=== PATIENT | male | born 1945 | race Caucasian/White ===

== ENCOUNTER 2023-09-08 14:43 | Inpatient (IN) | payer OTHER, BC ==
--- OUTSIDE RECORDS SUMMARY | 2023-09-08 14:54 | XMS REPORT | Continuity of Care Document ---
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 Name Role Phone DOUGIE GILES Primary Care Physician Unavailab NATALIE Hector Attending Clinician Unavaila Joseph Joe Attending Clinician Unavailable Al PAC, Joseph Martin Attending Clinician [phone] NICANOR LENTZ Attending Clinician Unavailable Nicanor Lentz DO Attending Clinician [phone] Shira Mead RN Attending Clinician Unavail able MARQUES HINES Attending Clinician Unavailable Uriarte MARICEL, Andreina S Attending Clinician [phone] Marlena Rios MD Attending Clinician [phone] Marques Hines DO Attending Clinician [phone] Virginia Soni DO Attending Clinician [phone] VIRGINIA SOIN Attending Clinician Unavailab Ena Montenegro RN Attending Clinician Unavailab Juno Hand MD Attending Clinician [phone] OLMAN DAVID Attending Clinician Unavailable Olman Charles Attending Clinician [phone] Doctor Unassigned, [place] Attending Clinician U LYDIA Cristina Attending Clinician Unavailab Marcie Lazar DO Attending Clinician [phone] Margie Beck MD Attending Clinician [phone] Chaz Roberts MD Attending Clinician + Natalie Stone Attending Clinician [phone] Fantasma Marroquin MD Attending Clinician [phone] Jean Jarrett MD Attending Clinician [phone] Dougie Giles MD Attending Clinician [phone] DOUGIE GILES Attending Clinician Unavailable MARLENA RIOS Attending Clinician Unavailable Yaritza Aguirre Anavella Attending Cli nician Unavailable JOSEFINA DASILVA Attending Clinician Unavailable Josefina Dasilva MD Attending Clinician [phone] Nurse, [facility] Attending Clinician Jelani Bray MD Attending Clinician [phone] JEAN JARRETT Attending Clinician Unavailable Liane Negrete RN Attending Clinician Unavailable Only, Ang Db Test Attending Clinician Unavailabl e Mannie Vásquez DO Attending Clinician [phone] MANNIE VÁSQUEZ Attending Clinician Unavail able GRAMMMARGI Attending Clinician Unavailable Margi Horn Attending Clinician [phone] Justine Collins Attending Clinician + [phone] JUSTINE GARCIA Attending Clinician Unavailable Lab, [facility] Attending Clinician Unavailab JELANI Álvarez Attending Clinician Unavail able JELANI CORDON Attending Clinician Unavail able JEZ ALEXANDER Attending Clinician Unavailable Rajjoel_Olga Attending Clinician Unavailable Joseph MELENDEZ Admitting Clinician Unavailable MARQUES HINES Admitting Clinician Unavailable Marques Hines DO Admitting Clinician [phone] VIRGINIA SONI Admitting Clinician Unavailab OLMAN Anglin Admitting Clinician Unavailable CHAZ ROBERTS Admitting Clinician Unavailable Chaz Roberts MD Admitting Clinician +[phone] NICANOR LENTZ Admitting Clinician Unavailable MARLENA RIOS Admitting Clinician Unavailable Marlena Rios MD Admitting Clinician [phone] Carla, Tomasa, Anav Admitting Clinician U arronailable JOSEFINA DASILVA Admitting Clinician Unavailable Bailey LOPEZ, Josefina Admitting Clinician [phone] JELANI CORDON Admitting Clinician Unavail able Shi_P Admitting Clinician Unavailable Payers Payer Name Policy Type Policy Number Effective Date Expirati on Date Source MEDICARE PART A \\T\\ B [id number] 2002 00:00:00 BCBS TRADITIONAL [id number] 2013 00:00:00 FORMERLY [facility] CCN [id number] 2021 00:00:00 MCR MCR [id number] BCTI BCTI [id number] TWV [id number] [place] [employer] [id number] 2002 00:00:00 [place] F [place]MEDIC[place]PPLEMENT[place] [id number] 2013 00:00:00 Problems Condition Name Condition Details Condition Category Status Onset Date Resolution Date Last Treatment Date Treating Clinician Comments Source Fever, unspecifie d fever cause Fever, unspecifie d fever cause Disease Active 2022-04 00:00: 00 [facility] Wound of right ankle, initial encounter Wound of right ankle, initial encounter Disease Active 2022-04 00:00: 00 [facility] Cellulitis , unspecifie d cellulitis site Cellulitis , unspecifie d cellulitis site Disease Active 11-29 00:00: 00 [facility] Unspecifie d dementia, unspecifie d severity, without behavioral disturbanc e, psychotic disturbanc e, mood disturbanc e, and anxiety Unspecifie d dementia, unspecifie d severity, without behavioral disturbanc e, psychotic disturbanc e, mood disturbanc e, and anxiety Disease Active 11-26 00:00: 00 [facility] 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 11-26 00:00: 00 [facility] Problem related to unspecifie d psychosoci al circumstan vasu Problem related to unspecifie d psychosoci al circumstan vasu Disease Active 8- 00:00: 00 [facility] Post-traum atic stress disorder, chronic Post-traum atic stress disorder, chronic Disease Active 823 00:00: 00 [facility] Fever in adult Fever in adult Disease Active 7-25 00:00: 00 [facility] Pneumonia due to infectious organism Pneumonia due to infectious organism Disease Active 725 00:00: 00 [facility] At risk for aspiration At risk for aspiration Disease Active 4-20 00:00: 00 [facility] Cellulitis of right ankle Cellulitis of right ankle Disease Active 4-16 00:00: 00 [facility] Fecal impaction in rectum Fecal impaction in rectum Disease Active 2- 00:00: 00 [facility] Pancolitis Pancolitis Disease Active 1- 00:00: 00 [facility] Basal cell carcinoma (BCC) of chin Basal cell carcinoma (BCC) of chin Disease Active 2017-04 00:00: 00 Overview: Formattin g of this note might be different from the original. Added automatic ally from request for surgery [id number] [facility] Glaucoma Glaucoma Disease Active 2014-04 00:00: 00 [facility] Hyperlipid emia Hyperlipid emia Disease Active 2014-04 00:00: 00 [facility] Carotid bruit Carotid bruit Disease Active 2014-04 00:00: 00 [facility] Allergies, Adverse Reactions, Alerts Allergy Name Allergy Type Status Severity Reaction(s) Onset Date Inactive Date Treating Clinician Comments Source Sulfamet hoxazole -Trimeth oprim Propensi ty to adverse reaction s Active Unknown - See comments 11-07 00:00: 00 Patients reports the patient is unable to walk when taking medicatio n [facility] SULFAMET HOXAZOLE -TRIMETH OPRIM DRUG Active Unknown-Cmnt 11-07 00:00: 00 [facility] Social History Social Habit Start Date Stop Date Quantity Comments Source History SDOH Social Connections Get Together [facility] History SDOH Social Connections [facility] History SDOH Social Connections Membership [facility] History SDOH Social Connections Meetings [facility] Sexual orientation [facility]iversity [facility] Alcohol intake 2023 00:00:00 2023 00:00:00 0 /d [facility] Exposure to SARS-CoV-2 (event) 2022-08-17 00:00:00 2022-08-27 14:30:00 Not sure [facility] History of Social function 2022-08-27 00:00:00 2022-08-27 00:00:00 [facility] History SDOH Alcohol Frequency 2022-07-21 00:00:00 2022-07-21 00:00:00 1 [facility] History SDOH Social Connections Phone 2022-07-21 00:00:00 2022-07-21 00:00:00 3 [facility] History SDOH Social Connections Living 2022-07-21 00:00:00 2022-07-21 00:00:00 3 [facility] History SDOH Financial 2022-07-21 00:00:00 2022-07-21 00:00:00 5 [facility] History SDOH Food Worry 2022-07-21 00:00:00 2022-07-21 00:00:00 1 [facility] History SDOH Food Scarcity 2022-07-21 00:00:00 2022-07-21 00:00:00 1 [facility] History SDOH Transport Med 2022-07-21 00:00:00 2022-07-21 00:00:00 2 [facility] History SDOH Transport Non-Med 2022-07-21 00:00:00 2022-07-21 00:00:00 2 [facility] History SDOH Physical Activity DPW 2022-07-21 00:00:00 2022-07-21 00:00:00 2 [facility] History SDOH Physical Activity MPS 2022-07-21 00:00:00 2022-07-21 00:00:00 1 [facility] History SDOH Housing Unable to Pay 2022-07-21 00:00:00 2022-07-21 00:00:00 2 [facility] History SDOH Housing Places Lived 2022-07-21 00:00:00 2022-07-21 00:00:00 1 [facility] History SDOH Housing Homeless Last Year 2022-07-21 00:00:00 2022-07-21 00:00:00 2 [facility] Tobacco use and exposure 2022-07-20 00:00:00 2022-07-20 00:00:00 Smokeless tobacco non-user [facility] History SDOH Alcohol Std Drinks 2022-05-28 00:00:00 2022-05-28 00:00:00 0 [facility] History SDOH Alcohol Binge 2022-05-28 00:00:00 2022-05-28 00:00:00 1 [facility] Sex Ass[birth year] At 1945 00:00:00 1945 00:00:00 [facility] Smoking Status Start Date Stop Date Source Never smoked tobacco [facility] Medications Ordered Medication Name Filled Medication Name Start Date Stop Date Current Medication? Ordering Clinician Indication Dosage Frequency Signature (SIG) Comments Components Source ciprofloxac in HCl (CIPRO) tablet 500 mg 2022-04 00:30: 00 03-01 23:48 :00 No 500mg 500 mg, Oral, ONCE, 1 dose, On 03/01/23 at 1830, ROCKY
Re ason for Anti-Infec tive: Documented Infection< br>Documen nichole Infection Site: Skin / Soft Tissue
Duration of Therapy: Other (see Comments) [facility] ciprofloxac in HCl 500 mg tablet 2022-04 00:00: 00 03-01 00:00 :00 No [id number] 500mg Take 1 tablet by mouth in the morning and 1 tablet at noon and 1 tablet in the evening. Do all this for 10 days. [facility] collagenase 250 unit/gram ointment 2022-04 00:00: 00 Yes [id number] Apply to area(s) daily. [facility] Vitamin E (E-PHEROL) 400 unit Tab 2022-04 14:37: 49 Yes 2{tbl} Take 2 tablets by mouth daily. [facility] latanoprost (XALATAN) 0.005 % ophthalmic drops 2022-04 14:37: 49 Yes 1[drp] 1 Drop every evening. [facility] brimonidine (ALPHAGAN) 0.2 % ophthalmic solution 2022-04 14:37: 49 Yes 1[drp] Take 1 Drop in the morning and 1 Drop at noon and 1 Drop in the evening. [facility] melatonin 10 mg Tab 2022-04 14:37: 49 Yes 10mg Take 10 mg by mouth at bedtime. [facility] acetaminoph en 500 mg tablet 2022-04 14:37: 49 Yes 1000mg Take 2 tablets by mouth at bedtime. [facility] mv-mn/iron/ folic acid/herb 190 (VITAMIN D3 COMPLETE ORAL) 2022-04 14:37: 49 Yes 5000U/d Take 5,000 Units/day by mouth daily. [facility] timolol 0.25 % ophthalmic solution 2022-04 14:37: 49 Yes 1[drp] Place 1 Drop in both eyes in the morning and 1 Drop in the evening. [facility] trazodone HCl (TRAZODONE ORAL) 2022-04 14:37: 49 Yes 25mg Take 25 mg by mouth at bedtime. [facility] polyethylen e glycol 3350 (MIRALAX) 17 gram/dose powder 2022-04 14:37: 49 Yes 17g Take 17 g by mouth in the morning. [facility] zinc sulfate 50 mg zinc (220 mg) capsule 2022-04 00:00: 00 Yes [id number] 50mg Take 1 capsule by mouth in the morning and 1 capsule at noon and 1 capsule in the evening. [facility] ascorbic acid, vitamin C, 500 mg tablet 2022-04 00:00: 00 Yes [id number] 500mg Take 1 tablet by mouth in the morning and 1 tablet in the evening. [facility] ibuprofen 400 mg tablet 2022-04 00:00: 00 Yes [id number] 400mg Take 1 tablet by mouth every 6 (six) hours as needed (Alternate with Tylenol for fever). [facility] codeine-gua ifenesin 10-100 mg/5 mL oral solution 2022-04 00:00: 00 02-14 05:59 :00 No [id number] 5mL Take 5 mL by mouth every 6 (six) hours as needed for Cough for up to 7 days. Indication s: acute pain, cough [facility] NaCl 0.9% (NS) IV infusion 1,000 mL 2022-04 20:00: 00 Yes 1000mL at 50 mL/hr, IV Infusion, CONTINUOUS , Starting on Thu02/04/23 at 1500, Until Discontinu ed, Routine [facility] D5W 0.9% NaCl (NS) IV infusion 1,000 mL 2022-04 03:00: 00 Yes 1000mL at 50 mL/hr, 1,000 mL, IV Infusion, CONTINUOUS , Starting on Thu02/03/23 at 2200, Until Discontinu ed, Routine [facility] D5W 0.9% NaCl (NS) IV infusion 1,000 mL 2022-04 02:15: 00 02-04 02:56 :32 No 1000mL at 150 mL/hr, 1,000 mL, IV Infusion, CONTINUOUS , Starting on Thu02/03/23 at 2115, Until Thu02/03/23 at 2156, Routine [facility] risperiDONE (RISPERDAL) tablet 4 mg 2022-04 02:00: 00 Yes 4mg 4 mg, Oral, QHS, First dose (after last modificati on) on Thu02/03/23 at 2100, Until Discontinu ed, Routine [facility] acetaminoph en (TYLENOL) suppository 650 mg 2022-04 21:35: 13 Yes 650mg 650 mg, Rectal, Q6HPRN, Starting on Thu02/03/23 at 1635, Until Discontinu ed, Routine, Temp > 38 C [facility] collagenase (SANTYL) ointment 2022-04 16:45: 00 Yes Topical, DAILY, First dose on Thu02/03/23 at 1145, Until Discontinu ed, Routine [facility] sodium hypochlorit e 0.25% (DAKIN'S SOLUTION) solution 2022-04 16:45: 00 Yes Topical, DAILY, First dose on Thu02/03/23 at 1145, Until Discontinu ed, Routine [facility] polyethylen e glycol 3350 powder 17 g 2022-04 14:00: 00 Yes 17g 17 g, Oral, DAILY, First dose on Thu02/03/23 at 0900, Until Discontinu ed [facility] omeprazole (PRILOSEC) capsule 20 mg 2022-04 14:00: 00 Yes 20mg 20 mg, Oral, DAILY, First dose on Thu02/03/23 at 0900, Until Discontinu ed, [facility] lactobacill [facility] acidophilus tablet 0.5 mg 2022-04 14:00: 00 Yes .5mg 0.5 mg, Oral, DAILY, First dose on Thu02/03/23 at 0900, Until Discontinu ed, Routine [facility] docusate (COLACE) 50 mg/5 mL solution 100 mg 2022-04 14:00: 00 Yes 100mg 100 mg, Oral, DAILY, First dose on Thu02/03/23 at 0900, Until Discontinu ed, Routine [facility] levoFLOXaci n (LEVAQUIN) tablet 750 mg 2022-04 14:00: 00 02-13 14:59 :00 No 750mg 750 mg, Oral, DAILY, 10 doses, First dose on Thu02/03/23 at 0900, Last dose on Thu02/12/23 at 0900, ROCKY
Re ason for Anti-Infec tive: Documented Infection< br>Documen nichole Infection Site: Skin / Soft Tissue
Duration of Therapy: 10 days [facility] sodium hypochlorit e 0.5% (DAKINS) solution 16 oz 2022-04 14:00: 00 02-03 16:41 :37 No 16[oz_a v] 16 oz, Topical, DAILY, First dose on Thu02/03/23 at 0900, Until Discontinu ed, Routine [facility] zinc sulfate (ORAZINC) capsule 50 mg 2022-04 13:00: 00 Yes 50mg 50 mg, Oral, TID, First dose on Thu02/03/23 at 0800, Until Discontinu ed, Routine [facility] ascorbic acid (vitamin C) (VITAMIN C) tablet 500 mg 2022-04 13:00: 00 Yes 500mg 500 mg, Oral, BID, First dose on Thu02/03/23 at 0800, Until Discontinu ed, Routine [facility] codeine-gua ifenesin (ROBITUSSIN AC) 10-100 mg/5 mL oral solution 5 mL 2022-04 05:26: 58 Yes 5mL 5 mL, Oral, Q6HPRN, Starting on Thu02/03/23 at 0026, Until Discontinu ed, Routine, Cough [facility] melatonin (MELATIN) tablet 10.5 mg 2022-04 02:00: 00 Yes 10mg 10.5 mg (rounded from 10 mg), Oral, QHS, First dose on Thu02/02/23 at 2100, Until Discontinu ed [facility] donepeziL (ARICEPT) tablet 10 mg 2022-04 02:00: 00 Yes 10mg 10 mg, Oral, QHS, First dose on Thu02/02/23 at 2100, Until Discontinu ed [facility] doxazosin (CARDURA) tablet 1 mg 2022-04 02:00: 00 Yes 1mg 1 mg, Oral, QHS, First dose on Thu02/02/23 at 2100, Until Discontinu ed, Routine [facility] latanoprost (XALATAN) 0.005 % ophthalmic drops 1 Drop 2022-04 02:00: 00 Yes 1[drp] 1 Drop, Both Eyes, QHS, First dose on Thu02/02/23 at 2100, Until Discontinu ed, Routine [facility] traZODone (DESYREL) tablet 25 mg 2022-04 02:00: 00 02-03 05:28 :00 No 25mg 25 mg, Oral, QHS, First dose on Thu02/02/23 at 2100, Until Discontinu ed [facility] brimonidine (ALPHAGAN) 0.2 % ophthalmic solution 1 Drop 2022-04 01:00: 00 Yes 1[drp] 1 Drop, Both Eyes, TID, First dose on Thu02/02/23 at 2000, Until Discontinu ed, Routine [facility] timolol (TIMOPTIC) 0.5 % ophthalmic solution 1 Drop 2022-04 01:00: 00 Yes 1[drp] 1 Drop, Both Eyes, BID, First dose on Thu02/02/23 at 2000, Until Discontinu ed, Routine [facility] amoxicillin -clavulanat e (AUGMENTIN) 875-125 mg per tablet 1 tablet 2022-04 01:00: 00 02-13 01:59 :00 No 1{tbl} 1 tablet, Oral, BID, 20 doses, First dose on Thu02/02/23 at 1999, Last dose on Thu02/12/23 at 0800, Routine
Reason for Anti-Infec tive: Documented Infection< br>Documen nichole Infection Site: Skin / Soft Tissue
Duration of Therapy: 10 days [facility] ibuprofen (IBU) tablet 400 mg 2022-04 23:51: 58 Yes 400mg 400 mg, Oral, Q6HPRN, Starting on Thu02/02/23 at 1851, Until Discontinu ed, Routine, Alternate with Tylenol for fever [facility] acetaminoph en (TYLENOL) tablet 650 mg 2022-04 23:51: 40 02-03 21:35 :40 No 650mg 650 mg, Oral, Q6HPRN, Starting on Thu02/02/23 at 1851, Until Thu02/03/23 at 1635, Routine, Pain (scale 1-3), Temp > 38 C [facility] D5W 0.9% NaCl (NS) IV infusion 1,000 mL 2022-04 22:45: 00 02-04 00:14 :08 No 1000mL at 100 mL/hr, 1,000 mL, IV Infusion, CONTINUOUS , Starting on Thu02/02/23 at 1745, Until Thu02/03/23 at 1914, Routine [facility] acetaminoph en ADULT (OFIRMEV) injection 1,000 mg 2022-04 22:30: 00 02-02 23:02 :00 No 1000mg 1,000 mg, IV Infusion, at 400 mL/hr Administer over 15 Minutes, ONCE, 1 dose, On Thu02/02/23 at 1730, Routine
Indicatio n: Non-periop erative Patient
Approved by: Per Policy (NPO Status) [facility] enoxaparin (LOVENOX) injection 40 mg 2022-04 22:00: 00 Yes 40mg 40 mg, Subcutaneo us, DAILY, First dose on Thu02/02/23 at 1700, Until Discontinu ed, Routine [facility] risperiDONE (RISPERDAL) tablet 4 mg 2022-04 22:00: 00 02-03 17:34 :44 No 4mg 4 mg, Oral, QPM, First dose on Thu02/02/23 at 1700, Until Discontinu ed, Routine [facility] ondansetron (ZOFRAN (PF)) injection 4 mg 2022-04 21:37: 00 Yes 4mg 4 mg, Slow IV Push, Q6HPRN, Starting on Thu02/02/23 at 1637, Until Discontinu ed, Routine, Nausea and Vomiting (N/V) [facility] dextrometho rphan-guaif enesin (ROBITUSSIN DM) 10-100 mg/5 mL solution 10 mL 2022-04 21:31: 42 Yes 10mL 10 mL, Oral, Q6HPRN, Starting on Thu02/02/23 at 1631, Until Discontinu ed, Routine, Cough [facility] sodium hypochlorit e 0.5% (DAKINS) solution 16 oz 2022-04 14:00: 00 Yes 16[oz_a v] 16 oz, Topical, DAILY, First dose on Thu01/30/23 at 0900, Until Discontinu ed, Routine [facility] sodium hypochlorit e 0.5% solution 2022-04 00:00: 00 Yes [id number] 16[oz_a v] Apply 473 mL to area(s) in the morning. [facility] metoprolol succinate XL 25 mg 24 hr tablet 2022-04 00:00: 00 03-02 05:59 :00 No [id number] 12.5mg Take 0.5 tablets by mouth in the morning for 30 days. [facility] Vitamin E (E-PHEROL) 400 unit Tab 2022-04 14:48: 25 Yes 2{tbl} Take 2 tablets by mouth daily. [facility] latanoprost (XALATAN) 0.005 % ophthalmic drops 2022-04 14:48: 25 Yes 1[drp] 1 Drop every evening. [facility] brimonidine (ALPHAGAN) 0.2 % ophthalmic solution 2022-04 14:48: 25 Yes 1[drp] Take 1 Drop in the morning and 1 Drop at noon and 1 Drop in the evening. [facility] melatonin 10 mg Tab 2022-04 14:48: 25 Yes 10mg Take 10 mg by mouth at bedtime. [facility] acetaminoph en 500 mg tablet 2022-04 14:48: 25 Yes 1000mg Take 2 tablets by mouth at bedtime. [facility] mv-mn/iron/ folic acid/herb 190 (VITAMIN D3 COMPLETE ORAL) 2022-04 14:48: 25 Yes 5000U/d Take 5,000 Units/day by mouth daily. [facility] timolol 0.25 % ophthalmic solution 2022-04 14:48: 25 Yes 1[drp] Place 1 Drop in both eyes in the morning and 1 Drop in the evening. [facility] trazodone HCl (TRAZODONE ORAL) 2022-04 14:48: 25 Yes 25mg Take 25 mg by mouth at bedtime. [facility] polyethylen e glycol 3350 (MIRALAX) 17 gram/dose powder 2022-04 14:48: 25 Yes 17g Take 17 g by mouth in the morning. [facility] amoxicillin -clavulanat e (AUGMENTIN) 875-125 mg per tablet 1 tablet 2022-04 01:00: 00 02-12 01:59 :00 No 1{tbl} 1 tablet, Oral, Q12H, 28 doses, First dose on Thu01/28/23 at 2000, Last dose on Thu02/11/23 at 0800, Routine
Reason for Anti-Infec tive: Documented Infection< br>Documen nichole Infection Site: Skin / Soft Tissue
Duration of Therapy: 14 days [facility] levoFLOXaci n (LEVAQUIN) tablet 750 mg 2022-04 20:45: 00 02-11 14:59 :00 No 750mg 750 mg, Oral, DAILY, 14 doses, First dose on Thu01/28/23 at 1545, Last dose on Thu02/10/23 at 0900, Routine
Reason for Anti-Infec tive: Documented Infection< br>Documen nichole Infection Site: Skin / Soft Tissue
Duration of Therapy: 14 days [facility] dextrometho rphan-guaif enesin (ROBITUSSIN DM) 10-100 mg/5 mL solution 10 mL 2022-04 14:33: 23 Yes 10mL 10 mL, Oral, Q6HPRN, Starting on Thu01/28/23 at 0933, Until Discontinu ed, Routine, Cough [facility] levoFLOXaci n 750 mg tablet 2022-04 00:00: 00 02-12 05:59 :00 No [id number] 750mg Take 1 tablet by mouth in the morning for 14 days. [facility] amoxicillin -clavulanat e 875-125 mg per tablet 2022-04 00:00: 00 02-12 05:59 :00 No [id number] 1{tbl} Take 1 tablet by mouth in the morning and 1 tablet in the evening. Do all this for 14 days. [facility] collagenase (SANTYL) ointment 2022-04 14:00: 00 Yes Topical (Apply To Affected Areas), DAILY, First dose on Thu01/27/23 at 0900, Until Discontinu ed, Routine [facility] zolpidem (AMBIEN) tablet 5 mg 2022-04 02:35: 19 Yes 5mg 5 mg, Oral, QHSPRN, Starting on Thu01/26/23 at 2135, Until Discontinu ed, Routine, Insomnia [facility] metoprolol succinate XL (TOPROL XL) tablet 12.5 mg 2022-04 14:00: 00 Yes 12.5mg 12.5 mg, Oral, DAILY, First dose on Thu01/26/23 at 0900, Until Discontinu ed, Routine [facility] Vitamin E (dl, acetate) capsule 400 Units 2022-04 14:00: 00 Yes 400U 400 Units, Oral, DAILY, First dose on Thu01/26/23 at 0900, Until Discontinu ed [facility] polyethylen e glycol 3350 powder 17 g 2022-04 14:00: 00 Yes 17g 17 g, Oral, DAILY, First dose on Thu01/26/23 at 0900, Until Discontinu ed [facility] omeprazole (PRILOSEC) capsule 20 mg 2022-04 14:00: 00 Yes 20mg 20 mg, Oral, DAILY, First dose on Thu01/26/23 at 0900, Until Discontinu ed, Routine [facility] lactobacill us acidophilus tablet 0.5 mg 2022-04 14:00: 00 Yes .5mg 0.5 mg, Oral, DAILY, First dose on Thu01/26/23 at 0900, Until Discontinu ed, Routine [facility] docusate (COLACE) 50 mg/5 mL solution 50 mg 2022-04 14:00: 00 Yes 50mg 50 mg, Oral, DAILY, First dose on Thu01/26/23 at 0900, Until Discontinu ed, Routine [facility] zolpidem (AMBIEN) tablet 5 mg 2022-04 06:30: 00 01-26 05:58 :00 No 5mg 5 mg, Oral, ONCE, 1 dose, On Thu01/26/23 at 0130, Routine [facility] heparin (porcine) injection 5,000 Units 2022-04 03:00: 00 Yes 5000U 5,000 Units, Subcutaneo us, Q8H, First dose on Thu01/25/23 at 2200, Until Discontinu ed, Routine [facility] cefTRIAXone (ROCEPHIN) 1,000 mg in NaCl 0.9% (NS) 100 mL MINI-BAG 2022-04 03:00: 00 01-28 20:36 :08 No 1000mg 1,000 mg, IV Piggyback, Q24H ABX, 7 doses, First dose on 01/25/23 at 2200, Last dose on 01/31/23 at 2200, Administer over 30 Minutes, 100 mL
Reas on for Anti-Infec tive: Empiric Therapy for Suspected Infection< br>Empiric Therapy Site: Joint
D uration of therapy: 5 days [facility] traZODone (DESYREL) tablet 25 mg 2022-04 02:00: 00 Yes 25mg 25 mg, Oral, QHS, First dose on Thu01/25/23 at 2100, Until Discontinu ed [facility] timolol (TIMOPTIC[facility] 0.5 % ophthalmic solution 1 Drop 2022-04 02:00: 00 Yes 1[drp] 1 Drop, Both Eyes, BID, First dose on Thu01/25/23 at 2100, Until Discontinu ed, Routine [facility] risperiDONE (RISPERDAL) tablet 4 mg 2022-04 02:00: 00 Yes 4mg 4 mg, Oral, QHS, First dose on 01/25/23 at 2100, Until Discontinu ed, Routine [facility] melatonin (MELATIN) tablet 10.5 mg 2022-04 02:00: 00 Yes 10mg 10.5 mg (rounded from 10 mg), Oral, QHS, First dose on 01/25/23 at 2100, Until Discontinu ed [facility] latanoprost (XALATAN) 0.005 % ophthalmic drops 1 Drop 2022-04 02:00: 00 Yes 1[drp] 1 Drop, Both Eyes, QHS, First dose on 01/25/23 at 2100, Until Discontinu ed, Routine [facility] donepeziL (ARICEPT) tablet 10 mg 2022-04 02:00: 00 Yes 10mg 10 mg, Oral, QHS, First dose on 01/25/23 at 2100, Until Discontinu ed [facility] doxazosin (CARDURA) tablet 1 mg 2022-04 02:00: 00 Yes 1mg 1 mg, Oral, QHS, First dose on 01/25/23 at 2100, Until Discontinu ed, Routine [facility] acetaminoph en (TYLENOL) tablet 1,000 mg 2022-04 02:00: 00 Yes 1000mg 1,000 mg, Oral, QHS, First dose on 01/25/23 at 2100, Until Discontinu ed, Routine [facility] brimonidine (ALPHAGAN) 0.2 % ophthalmic solution 1 Drop 2022-04 02:00: 00 Yes 1[drp] 1 Drop, Both Eyes, BID, First dose on 01/25/23 at 2100, Until Discontinu ed, Routine [facility] simvastatin (ZOCOR) tablet 40 mg 2022-04 02:00: 00 01-27 22:47 :39 No 40mg 40 mg, Oral, QHS, First dose on 01/25/23 at 2100, Until Discontinu ed, Routine [facility] guaiFENesin 100 mg/5 mL solution 200 mg 2022-04 00:20: 03 01-28 14:34 :14 No 200mg 200 mg, Oral, Q4HPRN, Starting on Thu01/25/23 at 1920, Until Thu01/28/23 at 0934, Routine, Cough [facility] vancomycin 1,250 mg in NaCl 0.9% (NS) 250 mL VIAL-MATE IV piggyback 2022-04 22:30: 00 01-28 12:07 :00 No 15mg/kg 1,250 mg (rounded from 1,197 mg = 15 mg/kg ?79.8 kg), IV Piggyback, Q12H ABX, 6 doses, First dose on Thu01/25/23 at 1730, Last dose on Thu01/28/23 at 0530, Administer over 90 Minutes, 250 mL
R cassia for Anti-Infec tive: Empiric Therapy for Suspected Infection< br>Empiric Therapy Site: Bone
Du ration of therapy: 72 hours [facility] ondansetron (ZOFRAN (PF)) injection 4 mg 2022-04 22:25: 28 Yes 4mg 4 mg, Slow IV Push, Q6HPRN, Starting on Thu01/25/23 at 1725, Until Discontinu ed, Routine, Nausea and Vomiting (N/V) [facility] acetaminoph en (TYLENOL) tablet 650 mg 2022-04 22:25: 21 Yes 650mg 650 mg, Oral, Q6HPRN, Starting on Thu01/25/23 at 1725, Until Discontinu ed, Routine, Pain (scale 1-3) [facility] ampicillin- sulbactam (UNASYN) 3 g in NaCl 0.9% (NS) 100 mL MINI-BAG 2022-04 20:15: 00 01-25 21:19 :00 No 3g 3 g, IV Piggyback, ONCE, 1 dose, On Thu01/25/23 at 1515, Administer over 30 Minutes, 100 mL
Reas on for Anti-Infec tive: Documented Infection< br>Documen nichole Infection Site: Skin / Soft Tissue
Duration of Therapy: 7 days [facility] Fish Oil-DHA-EPA 1,200-144-2 16 mg Cap 2022-04 18:31: 29 01-25 00:00 :00 No 1{capsu le} Take 1 capsule by mouth daily. [facility] collagenase (SANTYL) ointment 12-01 16:00: 00 Yes Topical (Apply To Affected Areas), DAILY, First dose on Thu12/01/22 at 1100, Until Discontinu ed, Routine [facility] Vitamin E (E-PHEROL) 400 unit Tab 12-01 15:03: 18 Yes 2{tbl} Take 2 tablets by mouth daily. [facility] latanoprost (XALATAN) 0.005 % ophthalmic drops 12-01 15:03: 18 Yes 1[drp] 1 Drop every evening. [facility] brimonidine (ALPHAGAN) 0.2 % ophthalmic solution 12-01 15:03: 18 Yes 1[drp] Take 1 Drop in the morning and 1 Drop at noon and 1 Drop in the evening. [facility] Fish Oil-DHA-EPA 1,200-144-2 16 mg Cap 12-01 15:03: 18 Yes 1{capsu le} Take 1 capsule by mouth daily. [facility] melatonin 10 mg Tab 12-01 15:03: 18 Yes 10mg Take 10 mg by mouth at bedtime. [facility] acetaminoph en 500 mg tablet 12-01 15:03: 18 Yes 1000mg Take 2 tablets by mouth at bedtime. [facility] mv-mn/iron/ folic acid/herb 190 (VITAMIN D3 COMPLETE ORAL) 12-01 15:03: 18 Yes 5000U/d Take 5,000 Units/day by mouth daily. [facility] timolol 0.25 % ophthalmic solution 12-01 15:03: 18 Yes 1[drp] Place 1 Drop in both eyes in the morning and 1 Drop in the evening. [facility] trazodone HCl (TRAZODONE ORAL) 12-01 15:03: 18 Yes 25mg Take 25 mg by mouth at bedtime. [facility] risperiDONE (RISPERDAL) tablet 4 mg 12-01 02:00: 00 Yes 4mg 4 mg, Oral, QHS, First dose (after last modificati on) on 11/30/22 at 2100, Until Discontinu ed, Routine [facility] clindamycin 75 mg/5 mL suspension 12-01 00:00: 00 12-10 04:59 :00 No [id number] 150mg Take 10 mL by mouth 4 (four) times daily for 8 days. [facility] tamsulosin (FLOMAX) capsule 0.4 mg 11-30 14:00: 00 Yes .4mg 0.4 mg, Oral, DAILY, First dose on 11/30/22 at 0900, Until Discontinu ed, Routine [facility] omeprazole (PRILOSEC) capsule 20 mg 11-30 14:00: 00 Yes 20mg 20 mg, Oral, DAILY, First dose on 11/30/22 at 0900, Until Discontinu ed, Routine [facility] docusate (COLACE) 50 mg/5 mL solution 100 mg 11-30 14:00: 00 Yes 100mg 100 mg, Oral, DAILY, First dose on 11/30/22 at 0900, Until Discontinu ed, Routine [facility] glycerin/mi neral oil (AGLO ENEMA) (COMPOUNDED ) Enem 225 mL 11-30 14:00: 00 11-30 14:49 :00 No 225mL 225 mL, Rectal, ONCE, 1 dose, On 11/30/22 at 0900, Routine [facility] timolol (TIMOPTIC) 0.5 % ophthalmic solution 1 Drop 11-30 13:00: 00 Yes 1[drp] 1 Drop, Both Eyes, BID, First dose on 11/30/22 at 0800, Until Discontinu ed, Routine [facility] brimonidine (ALPHAGAN) 0.2 % ophthalmic solution 1 Drop 11-30 13:00: 00 Yes 1[drp] 1 Drop, Both Eyes, TID, First dose on 11/30/22 at 0800, Until Discontinu ed, Routine [facility] clindamycin in 5 % dextrose (CLEOCIN) 600 mg/50 mL IV piggyback RTU 600 mg 11-30 07:15: 00 12-05 07:14 :00 No 600mg 600 mg, IV Piggyback, Q8H ABX, 15 doses, First dose on 11/30/22 at 0215, Last dose on Marilu 12/04/22 at 1815, Administer over 30 Minutes, 50 mL
Reas on for Anti-Infec tive: Empiric Therapy for Suspected Infection< br>Empiric Therapy Site: Skin / Soft tissue
Duration of therapy: 5 days
Re stricted use approved by: After Hours (for ADC, CLC, LCC ONLY) [facility] NaCl 0.9% (NS) IV infusion 1,000 mL 11-30 03:15: 00 11-30 03:02 :43 No 1000mL at 75 mL/hr, IV Infusion, ONCE, 1 dose, On 11/29/22 at 2215, Routine [facility] heparin (porcine) injection 5,000 Units 11-30 03:00: 00 Yes 5000U 5,000 Units, Subcutaneo us, Q8H, First dose on 11/29/22 at 2200, Until Discontinu ed, Routine [facility] risperiDONE (RISPERDAL) tablet 4 mg 11-30 02:30: 00 11-30 22:24 :26 No 4mg 4 mg, Oral, QPM, First dose (after last modificati on) on 11/29/22 at 2130, Until Discontinu ed, Routine [facility] simvastatin (ZOCOR) tablet 40 mg 11-30 02:00: 00 Yes 40mg 40 mg, Oral, QHS, First dose on 11/29/22 at 2100, Until Discontinu ed, Routine [facility] melatonin (MELATIN) tablet 10.5 mg 11-30 02:00: 00 Yes 10mg 10.5 mg (rounded from 10 mg), Oral, QHS, First dose on Thu11/29/22 at 2100, Until Discontinu ed [facility] traZODone (DESYREL) tablet 25 mg 11-30 01:47: 26 Yes 25mg 25 mg, Oral, QHSPRN, Starting on Thu11/29/22 at 204, Until Discontinu ed, Insomnia [facility] dextrometho rphan-guaif enesin (ROBITUSSIN DM) 10-100 mg/5 mL solution 10 mL 11-30 01:41: 51 Yes 10mL 10 mL, Oral, Q6HPRN, Starting on Thu11/29/22 at 2040, Until Discontinu ed, Routine, Cough [facility] acetaminoph en (TYLENOL) tablet 650 mg 11-30 00:19: 33 Yes 650mg 650 mg, Oral, Q6HPRN, Starting on Thu11/29/22 at 1919, Until Discontinu ed, Routine, Pain (scale 1-3) [facility] NaCl 0.9% (NS) bolus infusion 1,000 mL 11-29 23:45: 00 11-29 23:11 :00 No 1000mL at 999 mL/hr, 1,000 mL, IV Piggyback, ONCE, 1 dose, On Thu11/29/22 at 1845, STAT [facility] LORazepam (ATIVAN) injection 0.5 mg 11-29 23:00: 00 11-29 23:09 :00 No .5mg 0.5 mg, Slow IV Push, ONCE, 1 dose, On Thu11/29/22 at 1800, STAT [facility] lactulose (CEPHULAC) solution 30 mL 11-26 23:00: 00 11-27 01:06 :00 No 30mL 30 mL, Oral, ONCE, 1 dose, On Thu11/26/22 at 1800, ROCKY [facility] iopamidol (ISOVUE 370-500 mL) injection 80 mL 11-26 22:45: 00 11-26 22:45 :00 No [id number] 80mL 80 mL, Intravenou s, ONCE, 1 dose, On Thu11/26/22 at 1745, Routine [facility] NaCl 0.9% (NS) bolus infusion 500 mL 11-26 19:15: 00 11-26 20:30 :00 No 500mL at 999 mL/hr, 500 mL, IV Infusion, ONCE, 1 dose, On Thu11/26/22 at 1415, STAT [facility] doxazosin 2 mg tablet 11-11 00:00: 00 Yes 1mg Take 0.5 tablets by mouth at bedtime. [facility] Vitamin E (E-PHEROL) 400 unit Tab 10-30 14:25: 29 Yes 2{tbl} Take 2 tablets by mouth daily. [facility] latanoprost (XALATAN) 0.005 % ophthalmic drops 10-30 14:25: 29 Yes 1[drp] 1 Drop every evening. [facility] brimonidine (ALPHAGAN) 0.2 % ophthalmic solution 10-30 14:25: 29 Yes 1[drp] Take 1 Drop in the morning and 1 Drop at noon and 1 Drop in the evening. [facility] Fish Oil-DHA-EPA 1,200-144-2 16 mg Cap 10-30 14:25: 29 Yes 1{capsu le} Take 1 capsule by mouth daily. [facility] melatonin 10 mg Tab 10-30 14:25: 29 Yes 10mg Take 10 mg by mouth at bedtime. [facility] acetaminoph en 500 mg tablet 10-30 14:25: 29 Yes 1000mg Take 2 tablets by mouth at bedtime. [facility] mv-mn/iron/ folic acid/herb 190 (VITAMIN D3 COMPLETE ORAL) 10-30 14:25: 29 Yes 5000U/d Take 5,000 Units/day by mouth daily. [facility] timolol 0.25 % ophthalmic solution 10-30 14:25: 29 Yes 1[drp] Place 1 Drop in both eyes in the morning and 1 Drop in the evening. [facility] trazodone HCl (TRAZODONE ORAL) 10-30 14:25: 29 Yes 25mg Take 25 mg by mouth at bedtime. [facility] collagenase (SANTYL) ointment 10-30 14:00: 00 Yes Topical (Apply To Affected Areas), DAILY, First dose (after last modificati on) on Thu10/30/22 at 0900, Until Discontinu ed, Routine [facility] dextrometho rphan-guaif enesin 10-100 mg/5 mL solution 10-30 00:00: 00 Yes [id number] 10mL Take 10 mL by mouth every 6 (six) hours as needed for Cough. [facility] amoxicillin -pot clavulanate (AUGMENTIN) 250-62.5 mg/5 mL suspension 10-30 00:00: 00 11-07 04:59 :00 No [id number] 500mg Take 10 mL by mouth in the morning and 10 mL at noon and 10 mL in the evening. Do all this for 7 days. [facility] predniSONE 5 mg/5 mL solution 10-30 00:00: 00 11-05 04:59 :00 No [id number] 20mg Take 20 mL by mouth in the morning for 5 days. [facility] codeine-gua ifenesin (ROBITUSSIN AC) 10-100 mg/5 mL oral solution 5 mL 10-29 17:49: 39 Yes [id number] 5mL 5 mL, Oral, Q6HPRN, Starting on Thu10/29/22 at 1249, Until Discontinu ed, Routine, Cough [facility] latanoprost (XALATAN) 0.005 % ophthalmic drops 1 Drop 10-29 02:45: 00 Yes 1[drp] 1 Drop, Both Eyes, QPM, First dose on Thu10/28/22 at 2145, Until Discontinu ed, Routine [facility] brimonidine (ALPHAGAN) 0.2 % ophthalmic solution 1 Drop 10-29 02:45: 00 Yes 1[drp] 1 Drop, Both Eyes, BID, First dose on Thu10/28/22 at 2145, Until Discontinu ed, Routine [facility] timolol (TIMOPTIC) 0.25 % ophthalmic solution 1 Drop 10-29 02:45: 00 Yes 1[drp] 1 Drop, Both Eyes, BID, First dose on Thu10/28/22 at 2145, Until Discontinu ed, Routine [facility] traZODone (DESYREL) tablet 25 mg 10-29 02:00: 00 Yes 25mg 25 mg, Oral, QHS, First dose on Thu10/28/22 at 2100, Until Discontinu ed [facility] simvastatin (ZOCOR) tablet 40 mg 10-29 02:00: 00 Yes 40mg 40 mg, Oral, QHS, First dose on Thu10/28/22 at 2100, Until Discontinu ed, Routine [facility] risperiDONE (RISPERDAL) tablet 4 mg 10-28 22:00: 00 Yes 4mg 4 mg, Oral, QPM, First dose on Thu10/28/22 at 1700, Until Discontinu ed, Routine [facility] enoxaparin (LOVENOX) injection 40 mg 10-28 14:00: 00 Yes 40mg 40 mg, Subcutaneo us, DAILY, First dose on Thu10/28/22 at 0900, Until Discontinu ed, Routine [facility] omeprazole (PRILOSEC) capsule 20 mg 10-28 14:00: 00 Yes 20mg 20 mg, Oral, DAILY, First dose on Thu10/28/22 at 0900, Until Discontinu ed, Routine [facility] lactobacill us acidophilus tablet 0.5 mg 10-28 14:00: 00 Yes .5mg 0.5 mg, Oral, DAILY, First dose on Thu10/28/22 at 0900, Until Discontinu ed, Routine [facility] docusate (COLACE) 50 mg/5 mL solution 100 mg 10-28 14:00: 00 Yes 100mg 100 mg, Oral, DAILY, First dose on Thu10/28/22 at 0900, Until Discontinu ed, Routine [facility] ipratropium -albuteroL (DUONEB) 0.5 mg-3 mg(2.5 mg base)/3 mL nebulizer solution 3 mL 10-28 13:00: 00 Yes 3mL 3 mL, Inhalation , QID, First dose on Thu10/28/22 at 0800, Until Discontinu ed, Routine [facility] galantamine (REMINYL) tablet 8 mg 10-28 13:00: 00 Yes 8mg 8 mg, Oral, BID, First dose on Thu10/28/22 at 0800, Until Discontinu ed, Routine [facility] glucagon (GLUCAGEN DIAGNOSTIC KIT) injection 1 mg 10-28 12:15: 24 Yes 1mg 1 mg, Intramuscu lar, PRN, Starting on Thu10/28/22 at 0715, Until Discontinu ed, ROCKY, Blood Glucose < or = 70 mg/dL and patient is NPO, unable to swallow or has mental changes. [facility] dextrose 50 % in water (D50W) injection 25 mL 10-28 12:15: 24 Yes 25mL 25 mL, Slow IV Push, PRN, Starting on Thu10/28/22 at 0715, Until Discontinu ed, ROCKY, Blood Glucose < or = 70 mg/dL and patient is NPO, unable to swallow or has mental status changes. [facility] ondansetron (ZOFRAN (PF)) injection 4 mg 10-28 11:43: 22 Yes 4mg 4 mg, Slow IV Push, Q6HPRN, Starting on Thu10/28/22 at 0643, Until Discontinu ed, Routine, Nausea and Vomiting (N/V) [facility] acetaminoph en (TYLENOL) tablet 650 mg 10-28 11:43: 10 Yes 650mg 650 mg, Oral, Q6HPRN, Starting on Thu10/28/22 at 0643, Until Discontinu ed, Routine, Pain (scale 1-3) [facility] acetaminoph en (TYLENOL) tablet 650 mg 10-28 06:45: 00 10-28 07:25 :00 No 650mg 650 mg, Oral, ONCE, 1 dose, On Thu10/28/22 at 0145, ROCKY [facility] NaCl 0.9% (NS) injection 5 mL 10-28 06:37: 55 Yes 5mL 5 mL, Slow IV Push, PRN - SEE INSTRUCTIO NS, Starting on Thu10/28/22 at 0137, Until Discontinu ed, 10 mL [facility] Vitamin E (E-PHEROL) 400 unit Tab 08-27 14:48: 28 Yes 2{tbl} Take 2 tablets by mouth daily. [facility] latanoprost (XALATAN) 0.005 % ophthalmic drops 08-27 14:48: 28 Yes 1[drp] 1 Drop every evening. [facility] brimonidine (ALPHAGAN) 0.2 % ophthalmic solution 08-27 14:48: 28 Yes 1[drp] Take 1 Drop in the morning and 1 Drop at noon and 1 Drop in the evening. [facility] Fish Oil-DHA-EPA 1,200-144-2 16 mg Cap 08-27 14:48: 28 Yes 1{capsu le} Take 1 capsule by mouth daily. [facility] melatonin 10 mg Tab 08-27 14:48: 28 Yes 10mg Take 10 mg by mouth at bedtime. [facility] acetaminoph en 500 mg tablet 08-27 14:48: 28 Yes 1000mg Take 2 tablets by mouth at bedtime. [facility] mv-mn/iron/ folic acid/herb 190 (VITAMIN D3 COMPLETE ORAL) 08-27 14:48: 28 Yes 5000U/d Take 5,000 Units/day by mouth daily. [facility] timolol 0.25 % ophthalmic solution 08-27 14:48: 28 Yes 1[drp] Place 1 Drop in both eyes in the morning and 1 Drop in the evening. [facility] tamsulosin (FLOMAX) 0.4 mg 24 hr capsule 08-27 00:00: 00 01-25 00:00 :00 No [id number] .4mg Take 1 capsule by mouth in the morning. [facility] docusate 50 mg/5 mL solution 07-27 00:00: 00 Yes [id number] 100mg Take 10 mL by mouth in the morning. [facility] collagenase 250 unit/gram ointment 07-27 00:00: 00 08-07 04:59 :00 No [id number] Apply to affected area(s) daily for 10 days. [facility] risperiDONE (RISPERDAL) tablet 2 mg 07-26 22:00: 00 Yes 2mg 2 mg, Oral, QPM, First dose (after last modificati on) on 07/26/22 at 1700, Until Discontinu ed, Routine [facility] Vitamin E (E-PHEROL) 400 unit Tab 07-26 16:43: 26 Yes 2{tbl} Take 2 tablets by mouth daily. [facility] latanoprost (XALATAN) 0.005 % ophthalmic drops 07-26 16:43: 26 Yes 1[drp] 1 Drop every evening. [facility] brimonidine (ALPHAGAN) 0.2 % ophthalmic solution 07-26 16:43: 26 Yes 1[drp] Take 1 Drop in the morning and 1 Drop at noon and 1 Drop in the evening. [facility] Fish Oil-DHA-EPA 1,200-144-2 16 mg Cap 07-26 16:43: 26 Yes 1{capsu le} Take 1 capsule by mouth daily. [facility] melatonin 10 mg Tab 07-26 16:43: 26 Yes 10mg Take 10 mg by mouth at bedtime. [facility] acetaminoph en 500 mg tablet 07-26 16:43: 26 Yes 1000mg Take 2 tablets by mouth at bedtime. [facility] mv-mn/iron/ folic acid/herb 190 (VITAMIN D3 COMPLETE ORAL) 07-26 16:43: 26 Yes 5000U/d Take 5,000 Units/day by mouth daily. [facility] timolol 0.25 % ophthalmic solution 07-26 16:43: 26 Yes 1[drp] Place 1 Drop in both eyes in the morning and 1 Drop in the evening. [facility] amoxicillin -clavulanat e 400-57 mg/5 mL suspension 07-26 00:00: 00 08-22 04:59 :00 No [id number] 800mg Take 10 mL by mouth in the morning and 10 mL in the evening. Do all this for 52 doses. [facility] SODIUM HYPOCHLORIT E 0.025% Soln solution 07-26 00:00: 00 07-28 04:59 :00 No [id number] 1000mL Apply 1,000 mL to area(s) in the morning for 1 dose. [facility] amoxicillin -clavulanat e (AUGMENTIN) 875-125 mg per tablet 1 tablet 07-25 21:00: 00 08-22 08:59 :00 No 1{tbl} 1 tablet, Oral, Q12H ABX, 55 doses, First dose (after last modificati on) on Thu07/25/22 at 1600, Last dose on Thu08/21/22 at 1600, Routine
Reason for Anti-Infec tive: Documented Infection< br>Documen nichole Infection Site: Skin / Soft Tissue
Duration of Therapy: Other (see Comments) [facility] LORazepam (ATIVAN) injection 1 mg 07-25 18:15: 00 07-25 18:04 :00 No 1mg 1 mg, Slow IV Push, ONCE, 1 dose, On Thu07/25/22 at 1315, Routine [facility] iopamidol (ISOVUE 370-500 mL) injection 80 mL 07-25 18:09: 00 07-25 18:11 :00 No [id number] 80mL 80 mL, Intravenou s, ONCE, 1 dose, On Thu07/25/22 at 1330, Routine [facility] amoxicillin -clavulanat e (AUGMENTIN) 875-125 mg per tablet 1 tablet 07-25 04:00: 00 07-25 12:22 :33 No 1{tbl} 1 tablet, Oral, Q12H, 56 doses, First dose on Thu07/24/22 at 2300, Last dose on Thu08/21/22 at 0800, Routine
Reason for Anti-Infec tive: Documented Infection< br>Documen nichole Infection Site: Skin / Soft Tissue
Duration of Therapy: Other (see Comments) [facility] levalbutero l (XOPENEX) nebulizer solution 0.63 mg 07-25 02:51: 00 Yes .63mg 0.63 mg, Inhalation , TIDPRN, Starting on Thu07/24/22 at 215, Until Discontinu ed, Routine, Wheezing, Shortness of Breath [facility] ipratropium (ATROVENT) 0.02 % nebulizer solution 0.5 mg 07-25 02:22: 54 Yes .5mg 0.5 mg, Inhalation , Q4HPRN, Starting on Thu07/24/22 at 2121, Until Discontinu ed, Routine, Wheezing, Shortness of Breath, Bronchospa sm, Chest tightness [facility] codeine-gua ifenesin (ROBITUSSIN AC) 10-100 mg/5 mL oral solution 5 mL 07-25 02:22: 34 Yes 5mL 5 mL, Oral, Q6HPRN, Starting on Thu07/24/22 at 2121, Until Discontinu ed, Routine, Cough [facility] sodium hypochlorit e 0.25% (DAKIN'S SOLUTION) solution 07-24 22:00: 00 07-24 21:28 :00 No Topical, ONCE, 1 dose, On Thu07/24/22 at 1700, Routine [facility] fluconazole (DIFLUCAN) Piggyback 200 mg 07-24 16:15: 00 07-26 16:20 :00 No 200mg at 100 mL/hr, IV Piggyback, Q24H ABX, 3 doses, First dose on Thu07/24/22 at 1115, Last dose on Thu07/26/22 at 1115, ROCKY
Do Not Refrigerat e.
[facility] piperacilli n-tazobacta m (ZOSYN) 3.375 g in NaCl 0.9% (NS) 100 mL MINI-BAG 07-23 21:00: 00 07-25 01:28 :25 No 3.375g 3.375 g, IV Piggyback, Q8H ABX, First dose (after last modificati on) on Thu07/23/22 at 1615, Until Discontinu ed, Administer over 4 Hours, 100 mL
Reas on for Anti-Infec tive: Empiric Therapy for Suspected Infection< br>Empiric Therapy Site: Skin / Soft tissue
Duration of therapy: 72 hours [facility] vancomycin (VANCOCIN) 1,000 mg in NaCl 0.9% (NS) 250 mL VIAL-MATE IV piggyback 07-23 19:30: 00 07-25 01:28 :25 No 15mg/kg 1,000 mg (rounded from 1,057.5 mg = 15 mg/kg ?70.5 kg), IV Piggyback, Q12H ABX, 10 doses, First dose on Thu07/23/22 at 1430, Last dose on Thu07/28/22 at 0230, Administer over 60 Minutes, 250 mL
R cassia for Anti-Infec tive: Documented Infection< br>Documen nichole Infection Site: Skin / Soft Tissue
Duration of Therapy: 7 days [facility] Vitamin E (dl, acetate) capsule 800 Units 07-23 14:00: 00 Yes 800U 800 Units, Oral, DAILY, First dose on Thu07/23/22 at 0900, Until Discontinu ed, Routine [facility] lactobacill us acidophilus tablet 0.5 mg 07-23 14:00: 00 Yes .5mg 0.5 mg, Oral, DAILY, First dose on Thu07/23/22 at 0900, Until Discontinu ed, Routine [facility] docusate (COLACE) 50 mg/5 mL solution 100 mg 07-22 15:15: 00 Yes 100mg 100 mg, Oral, DAILY, First dose on Thu07/22/22 at 1015, Until Discontinu ed, Routine [facility] QUEtiapine (SEROQUEL) tablet 25 mg 07-22 04:30: 00 07-22 03:55 :00 No 25mg 25 mg, Oral, ONCE, 1 dose, On Thu07/21/22 at 2330, Routine [facility] simvastatin (ZOCOR) tablet 40 mg 07-22 02:00: 00 Yes 40mg 40 mg, Oral, QHS, First dose on Thu07/21/22 at 2100, Until Discontinu ed, Routine [facility] latanoprost (XALATAN) 0.005 % ophthalmic drops 1 Drop 07-21 22:00: 00 Yes 1[drp] 1 Drop, Both Eyes, QPM, First dose on Thu07/21/22 at 1700, Until Discontinu ed, Routine [facility] piperacilli n-tazobacta m (ZOSYN) 3.375 g in NaCl 0.9% (NS) 100 mL MINI-BAG 07-21 17:30: 00 07-23 21:01 :30 No 3.375g 3.375 g, IV Piggyback, Q8H ABX, First dose (after last modificati on) on Thu07/21/22 at 1230, Until Discontinu ed, Administer over 4 Hours, 100 mL
Reas on for Anti-Infec tive: Empiric Therapy for Suspected Infection< br>Empiric Therapy Site: Skin / Soft tissue
Duration of therapy: 72 hours [facility] collagenase (SANTYL) ointment 07-21 15:45: 00 Yes Topical (Apply To Affected Areas), DAILY, First dose on Thu07/21/22 at 1045, Until Discontinu ed, Routine [facility] galantamine (REMINYL) tablet 8 mg 07-21 15:15: 00 Yes 8mg 8 mg, Oral, BID, First dose on Thu07/21/22 at 1015, Until Discontinu ed, [facility] tamsulosin (FLOMAX) capsule 0.4 mg 07-21 14:00: 00 Yes .4mg 0.4 mg, Oral, DAILY, First dose on Thu07/21/22 at 0900, Until Discontinu ed, [facility]ine [facility] omeprazole (PRILOSEC) capsule 20 mg 07-21 14:00: 00 Yes 20mg 20 mg, Oral, DAILY, First dose on Thu07/21/22 at 0900, Until Discontinu ed, [facility]ine [facility] enoxaparin (LOVENOX) injection 40 mg 07-21 14:00: 00 Yes 40mg 40 mg, Subcutaneo us, DAILY, First dose on Thu07/21/22 at 0900, Until Discontinu ed, Routine [facility] docusate (COLACE) capsule 100 mg 07-21 14:00: 00 07-22 15:13 :38 No 100mg 100 mg, Oral, DAILY, First dose on Thu07/21/22 at 0900, Until Discontinu ed, [facility]ine [facility] timolol (TIMOPTIC) 0.5 % ophthalmic solution 1 Drop 07-21 13:30: 00 Yes 1[drp] 1 Drop, Both Eyes, BID, First dose on Thu07/21/22 at 0830, Until Discontinu ed, [facility] brimonidine (ALPHAGAN) 0.2 % ophthalmic solution 1 Drop 07-21 13:00: 00 Yes 1[drp] 1 Drop, Both Eyes, TID, First dose on Thu07/21/22 at 0800, Until Discontinu ed, Routine [facility] melatonin (MELATIN) tablet 9 mg 07-21 05:15: 00 Yes 9mg 9 mg, Oral, QHS, First dose (after last modificati on) on Thu07/21/22 at 0015, Until Discontinu ed [facility] acetaminoph en (TYLENOL) tablet 1,000 mg 07-21 05:00: 00 Yes 1000mg 1,000 mg, Oral, QHS, First dose (after last modificati on) on Thu07/21/22 at 0000, Until Discontinu ed, Routine [facility] risperiDONE (RISPERDAL) tablet 4 mg 07-21 05:00: 00 07-26 02:28 :57 No 4mg 4 mg, Oral, QPM, First dose (after last modificati on) on Thu07/21/22 at 0000, Until Discontinu ed, Routine [facility] piperacilli n-tazobacta m (ZOSYN) 3.375 g in NaCl 0.9% (NS) 100 mL MINI-BAG 07-21 05:00: 00 07-21 15:14 :49 No 3.375g 3.375 g, IV Piggyback, Q6H ABX, First dose on Thu07/21/22 at 0000, Until Discontinu ed, Administer over 4 Hours, 100 mL
Reas on for Anti-Infec tive: Empiric Therapy for Suspected Infection< br>Empiric Therapy Site: Skin / Soft tissue
Duration of therapy: 72 hours [facility] NaCl 0.9% (NS) bolus infusion 1,000 mL 07-21 03:15: 00 07-21 02:30 :00 No 1000mL at 999 mL/hr, 1,000 mL, IV Piggyback, ONCE, 1 dose, On 07/20/22 at 2215, STAT [facility] ondansetron (ZOFRAN (PF)) injection 4 mg 07-21 02:47: 49 Yes 4mg 4 mg, Slow IV Push, Q6HPRN, Starting on Thu07/20/22 at 2147, Until Discontinu ed, Routine, Nausea and Vomiting (N/V) [facility] HYDROcodone -acetaminop hen (NORCO) 10-325 mg tablet 1 tablet 07-21 02:47: 43 Yes 1{tbl} 1 tablet, Oral, Q6HPRN, Starting on Thu07/20/22 at 2147, Until Discontinu ed, Routine, Pain (scale 7-10) [facility] acetaminoph en (TYLENOL) tablet 650 mg 07-21 02:47: 34 Yes 650mg 650 mg, Oral, Q6HPRN, Starting on Thu07/20/22 at 2147, Until Discontinu ed, Routine, Pain (scale 1-3) [facility] NaCl 0.9% (NS) bolus infusion 1,000 mL 07-18 21:00: 00 07-18 22:16 :00 No 1000mL at 999 mL/hr, 1,000 mL, IV Piggyback, ONCE, 1 dose, On Thu07/18/22 at 1600, STAT [facility] piperacilli n-tazobacta m (ZOSYN) 3.375 g in NaCl 0.9% (NS) 100 mL MINI-BAG 07-18 20:00: 00 07-18 21:09 :00 No 3.375g 3.375 g, IV Piggyback, ONCE, 1 dose, On Thu07/18/22 at 1500, Administer over 30 Minutes, 100 mL
Reas on for Anti-Infec tive: Documented Infection< br>Documen nichole Infection Site: Skin / Soft Tissue
Duration of Therapy: 7 days [facility] cefpodoxime 200 mg tablet 07-18 00:00: 00 08-02 04:59 :00 No [id number] 200mg Take 1 tablet by mouth in the morning and 1 tablet in the evening. Do all this for 14 days. [facility] levoFLOXaci n 750 mg tablet 07-18 00:00: 00 07-29 04:59 :00 No [id number] 750mg Take 1 tablet by mouth every 24 (twenty-fo ur) hours for 10 days. [facility] iopamidol (ISOVUE 370-500 mL) injection 78 mL 06-10 19:45: 00 06-10 19:45 :00 No [id number] 78mL 78 mL, Intravenou s, ONCE, 1 dose, On Thu06/10/22 at 1345, Routine [facility] ondansetron (ZOFRAN (PF)) injection 4 mg 06-10 17:45: 00 06-10 17:13 :00 No 4mg 4 mg, Slow IV Push, ONCE, 1 dose, On Thu06/10/22 at 1145, ROCKY [facility] polyethylen e glycol 3350 powder 17 g 05-28 15:00: 00 Yes 17g 17 g, Oral, DAILY, First dose on Thu05/28/22 at 0900, Until Discontinu ed, Routine [facility] tamsulosin (FLOMAX) capsule 0.4 mg 05-28 15:00: 00 Yes .4mg 0.4 mg, Oral, DAILY, First dose on Thu05/28/22 at 0900, Until Discontinu ed, Routine [facility] omeprazole (PRILOSEC) capsule 20 mg 05-28 15:00: 00 Yes 20mg 20 mg, Oral, DAILY, First dose on Thu05/28/22 at 0900, Until Discontinu ed, Routine [facility] lactobacill us acidophilus tablet 0.5 mg 05-28 15:00: 00 Yes .5mg 0.5 mg, Oral, DAILY, First dose on Thu05/28/22 at 0900, Until Discontinu ed, Routine [facility] Vitamin E (E-PHEROL) 400 unit Tab 05-28 14:50: 45 Yes 2{tbl} Take 2 tablets by mouth daily. [facility] latanoprost (XALATAN) 0.005 % ophthalmic drops 05-28 14:50: 45 Yes 1[drp] 1 Drop every evening. [facility] brimonidine (ALPHAGAN) 0.2 % ophthalmic solution 05-28 14:50: 45 Yes 1[drp] 1 Drop 3 (three) times daily. [facility] Fish Oil-DHA-EPA 1,200-144-2 16 mg Cap 05-28 14:50: 45 Yes 1{capsu le} Take 1 capsule by mouth daily. [facility] melatonin 10 mg Tab 05-28 14:50: 45 Yes 10mg Take 10 mg by mouth at bedtime. [facility] acetaminoph en 500 mg tablet 05-28 14:50: 45 Yes 1000mg Take 1,000 mg by mouth at bedtime. [facility] mv-mn/iron/ folic acid/herb 190 (VITAMIN D3 COMPLETE ORAL) 05-28 14:50: 45 Yes 5000U/d Take 5,000 Units/day by mouth daily. [facility] timolol 0.25 % ophthalmic solution 05-28 14:50: 45 Yes 1[drp] Place 1 Drop in both eyes 2 (two) times daily. [facility] acetaminoph en (TYLENOL) tablet 1,000 mg 05-28 03:00: 00 Yes 1000mg 1,000 mg, Oral, QHS, First dose on Thu05/27/22 at 2100, Until Discontinu ed, Routine [facility] simvastatin (ZOCOR) tablet 40 mg 05-28 03:00: 00 Yes 40mg 40 mg, Oral, QHS, First dose on Thu05/27/22 at 2100, Until Discontinu ed, Routine [facility] melatonin (MELATIN) tablet 9 mg 05-28 03:00: 00 Yes 9mg 9 mg, Oral, QHS, First dose on Thu05/27/22 at 2100, Until Discontinu ed [facility] docusate (COLACE) capsule 100 mg 05-28 02:00: 00 Yes 100mg 100 mg, Oral, BID, First dose on Thu05/27/22 at 1999, Until Discontinu ed, Routine [facility] galantamine (REMINYL) tablet 8 mg 05-28 02:00: 00 Yes 8mg 8 mg, Oral, BID, First dose on Thu05/27/22 at 1999, Until Discontinu ed, Routine [facility] timolol (TIMOPTIC) 0.5 % ophthalmic solution 1 Drop 05-28 02:00: 00 Yes 1[drp] 1 Drop, Both Eyes, BID, First dose on Thu05/27/22 at 1999, Until Discontinu ed [facility] amoxicillin -clavulanat e (AUGMENTIN) 875-125 mg per tablet 05-28 00:00: 00 06-02 05:59 :00 No [id number] 1{tbl} Take 1 tablet by mouth in the morning and 1 tablet in the evening. Do all this for 4 days. [facility] risperiDONE (RISPERDAL) tablet 4 mg 05-27 23:00: 00 Yes 4mg 4 mg, Oral, QPM, First dose on Thu05/27/22 at 1700, Until Discontinu ed, Routine [facility] latanoprost (XALATAN) 0.005 % ophthalmic drops 1 Drop 05-27 23:00: 00 Yes 1[drp] 1 Drop, Both Eyes, QPM, First dose on Thu05/27/22 at 1700, Until Discontinu ed, Routine [facility] piperacilli n-tazobacta m (ZOSYN) 3.375 g in NaCl 0.9% (NS) 100 mL MINI-BAG 05-27 17:15: 00 06-01 17:14 :00 No 3.375g 3.375 g, IV Piggyback, Q8H ABX, 15 doses, First dose on Thu05/27/22 at 1115, Last dose on Thu06/01/22 at 0315, Administer over 4 Hours, 100 mL
Reas on for Anti-Infec tive: Documented Infection& lt;br>Docu mented Infection Site: Abdominal< br>Duratio n of Therapy: 7 days [facility] lactulose (CEPHULAC) solution 30 mL 05-27 15:45: 00 05-27 16:31 :00 No 30mL 30 mL, Oral, ONCE, 1 dose, On Thu05/27/22 at 0945, Routine [facility] enoxaparin (LOVENOX) injection 40 mg 05-27 15:00: 00 Yes 40mg 40 mg, Subcutaneo us, DAILY, First dose on Thu05/27/22 at 0900, Until Discontinu ed, Routine [facility] aspirin 81 mg EC tablet 05-27 11:23: 35 05-27 00:00 :00 No 81mg Take 81 mg by mouth daily. [facility] piperacilli n-tazobacta m (ZOSYN) 3.375 g in NaCl 0.9% (NS) 100 mL MINI-BAG 05-27 09:30: 00 05-27 10:36 :00 No 3.375g 3.375 g, IV Piggyback, ONCE, 1 dose, On Thu05/27/22 at 0330, Administer over 30 Minutes, 100 mL
Reas on for Anti-Infec tive: Documented Infection< br>Documen nichole Infection Site: Abdominal< br>Duratio n of Therapy: 7 days [facility] NaCl 0.9% (NS) IV infusion 1,000 mL 05-27 04:15: 00 05-27 12:39 :00 No 1000mL at 125 mL/hr, IV Infusion, ONCE, 1 dose, On Thu05/26/22 at 2215, Routine [facility] ondansetron (ZOFRAN (PF)) injection 4 mg 05-27 03:29: 20 Yes 4mg 4 mg, Slow IV Push, Q6HPRN, Starting on Thu05/26/22 at 2129, Until Discontinu ed, Routine, Nausea and Vomiting (N/V) [facility] traMADoL (ULTRAM) tablet 50 mg 05-27 03:29: 11 05-29 03:28 :11 No 50mg 50 mg, Oral, Q8HPRN, Starting on Thu05/26/22 at 212, Until Thu05/28/22 at 2127, Routine, Pain (scale 4-6) [facility] acetaminoph en (TYLENOL) tablet 650 mg 05-27 03:29: 08 Yes 650mg 650 mg, Oral, Q6HPRN, Starting on Thu05/26/22 at 2128, Until Discontinu ed, Routine, Pain (scale 1-3) [facility] cefTRIAXone (ROCEPHIN) 1,000 mg in NaCl 0.9% (NS) 100 mL MINI-BAG 05-27 02:45: 00 05-27 03:18 :00 No 1000mg 1,000 mg, IV Piggyback, ONCE, 1 dose, On Thu05/26/22 at 2045, Administer over 30 Minutes, 100 mL
Reas on for Anti-Infec tive: Documented Infection< br>Documen nichole Infection Site: Abdominal< br>Duratio n of Therapy: 7 days [facility] ondansetron (ZOFRAN (PF)) injection 4 mg 05-27 00:15: 00 05-27 00:10 :00 No 4mg 4 mg, Slow IV Push, ONCE, 1 dose, On Thu05/26/22 at 1815, ROCKY [facility] ciprofloxac in HCl (CIPRO) tablet 500 mg 05-06 03:00: 00 05-11 02:59 :00 No 500mg 500 mg, Oral, Q12H ABX, 10 doses, First dose on Thu05/05/22 at 2100, Last dose on Thu05/10/22 at 0900, ROCKY
Re ason for Anti-Infec tive: Documented Infection< br>Documen nichole Infection Site: Abdominal< br>Duratio n of Therapy: 7 days [facility] metroNIDAZO LE (FLAGYL) tablet 500 mg 05-06 02:00: 00 05-11 01:59 :00 No 500mg 500 mg, Oral, Q12H, 10 doses, First dose on 05/05/22 at 2000, Last dose on 05/10/22 at 0800, Routine
Reason for Anti-Infec tive: Documented Infection< br>Documen nichole Infection Site: Abdominal< br>Duratio n of Therapy: 7 days [facility] lactobacill us acidophilus 05-06 00:00: 00 Yes .5mg Take 1 tablet by mouth in the morning. [facility] hydroCHLORO thiazide 12.5 mg tablet 05-06 00:00: 00 05-26 00:00 :00 No 12.5mg Take 1 tablet by mouth in the morning. [facility] Vitamin E (E-PHEROL) 400 unit Tab 05-05 18:25: 31 Yes 2{tbl} Take 2 tablets by mouth daily. [facility] aspirin 81 mg EC tablet 05-05 18:25: 31 Yes 81mg Take 81 mg by mouth daily. [facility] latanoprost (XALATAN) 0.005 % ophthalmic drops 05-05 18:25: 31 Yes 1[drp] 1 Drop every evening. [facility] brimonidine (ALPHAGAN) 0.2 % ophthalmic solution 05-05 18:25: 31 Yes 1[drp] 1 Drop 3 (three) times daily. [facility] Fish Oil-DHA-EPA 1,200-144-2 16 mg Cap 05-05 18:25: 31 Yes 1{capsu le} Take 1 capsule by mouth daily. [facility] melatonin 10 mg Tab 05-05 18:25: 31 Yes 10mg Take 10 mg by mouth at bedtime. [facility] acetaminoph en 500 mg tablet 05-05 18:25: 31 Yes 1000mg Take 1,000 mg by mouth at bedtime. [facility] diphenhydrA MINE (BENADRYL) tablet 25 mg 05-05 10:43: 00 Yes 25mg 25 mg, Oral, Q6HPRN, Starting on 05/05/22 at 0443, Until Discontinu ed, Routine, Itching [facility] ciprofloxac in HCl 500 mg tablet 05-05 00:00: 00 05-26 00:00 :00 No 500mg Take 1 tablet by mouth every 12 (twelve) hours. [facility] metroNIDAZO LE 500 mg tablet 05-05 00:00: 00 05-26 00:00 :00 No 500mg Take 1 tablet by mouth every 12 (twelve) hours. [facility] diphenhydrA MINE (BENADRYL) tablet 25 mg 05-04 16:15: 00 05-04 16:25 :00 No 25mg 25 mg, Oral, ONCE, 1 dose, On 05/04/22 at 1015, Routine [facility] simvastatin (ZOCOR) tablet 40 mg 05-04 03:00: 00 Yes 40mg 40 mg, Oral, QHS, First dose on 05/03/22 at 2100, Until Discontinu ed, Routine [facility] risperiDONE (RISPERDAL) tablet 2 mg 05-03 23:00: 00 Yes 2mg 2 mg, Oral, QPM, First dose (after last modificati on) on 05/03/22 at 1700, Until Discontinu ed, Routine [facility] latanoprost (XALATAN) 0.005 % ophthalmic drops 1 Drop 05-03 23:00: 00 Yes 1[drp] 1 Drop, Both Eyes, QPM, First dose on 05/03/22 at 1700, Until Discontinu ed, Routine [facility] lactobacill us acidophilus tablet 0.5 mg 05-03 18:00: 00 Yes .5mg 0.5 mg, Oral, DAILY, First dose on 05/03/22 at 1200, Until Discontinu ed, Routine [facility] enoxaparin (LOVENOX) injection 40 mg 05-03 15:00: 00 Yes 40mg 40 mg, Subcutaneo us, DAILY, First dose on 05/03/22 at 0900, Until Discontinu ed, Routine [facility] tamsulosin (FLOMAX) capsule 0.4 mg 05-03 15:00: 00 Yes .4mg 0.4 mg, Oral, DAILY, First dose on 05/03/22 at 0900, Until Discontinu ed, Routine [facility] omeprazole (PRILOSEC) capsule 20 mg 05-03 15:00: 00 Yes 20mg 20 mg, Oral, DAILY, First dose on 05/03/22 at 0900, Until Discontinu ed, Routine [facility] hydroCHLORO thiazide (ESIDRIX) tablet 12.5 mg 05-03 15:00: 00 Yes 12.5mg 12.5 mg, Oral, DAILY, First dose on 05/03/22 at 0900, Until Discontinu ed [facility] aspirin EC tablet 81 mg 05-03 15:00: 00 Yes 81mg 81 mg, Oral, DAILY, First dose on 05/03/22 at 0900, Until Discontinu ed, Routine [facility] brimonidine (ALPHAGAN) 0.2 % ophthalmic solution 1 Drop 05-03 14:00: 00 Yes 1[drp] 1 Drop, Both Eyes, TID, First dose on 05/03/22 at 0800, Until Discontinu ed, Routine [facility] metroNIDAZO LE in NaCl (iso-os) (FLAGYL I.V.) RTU IV infusion 500 mg 05-03 06:15: 00 05-05 20:29 :12 No 500mg 500 mg, IV Infusion, Q8H ABX, 21 doses, First dose on Thu05/03/22 at 0015, Last dose on Thu05/09/22 at 1615, Administer over 60 Minutes, 100 mL
Reas on for Anti-Infec tive: Documented Infection& lt;br>Docu mented Infection Site: Abdominal< br>Duratio n of Therapy: 7 days [facility] ciprofloxac in in 5 % dextrose (CIPRO) piggyback 400 mg 05-03 06:15: 00 05-05 20:29 :12 No 400mg 400 mg, IV Piggyback, at 200 mL/hr Administer over 60 Minutes, Q12H ABX, First dose on Thu05/03/22 at 0015, Until Discontinu ed, Routine
Reason for Anti-Infec tive: Documented Infection< br>Docu mented Infection Site: Abdominal< br>Duratio n of Therapy: 7 days [facility] haloperidol lactate (HALDOL) injection 2.5 mg 05-03 05:53: 13 Yes 2.5mg 2.5 mg, Slow IV Push, PRN, 2 doses, Starting on Thu05/02/22 at 2353, Until Discontinu ed, Routine, Psychosis [facility] galantamine (REMINYL) tablet 8 mg 05-03 05:15: 00 Yes 8mg 8 mg, Oral, BID, First dose on Thu05/02/22 at 2315, Until Discontinu ed, Routine
Reason for non-formul ramsey use: PATIENT CURRENTLY TAKING NONFORMULA RY PRODUCT [facility] melatonin (MELATIN) tablet 9 mg 05-03 05:15: 00 Yes 9mg 9 mg, Oral, QHS, First dose (after last modificati on) on Thu05/02/22 at 2315, Until Discontinu ed [facility] risperiDONE (RISPERDAL) tablet 4 mg 05-03 05:15: 00 05-03 05:26 :23 No 4mg 4 mg, Oral, QPM, First dose (after last modificati on) on Thu05/02/22 at 2315, Until Discontinu ed, Routine [facility] ondansetron (ZOFRAN (PF)) injection 4 mg 05-03 04:53: 40 Yes 4mg 4 mg, Slow IV Push, Q6HPRN, Starting on Thu05/02/22 at 2253, Until Discontinu ed, Routine, Nausea and Vomiting (N/V) [facility] traMADoL (ULTRAM) tablet 50 mg 05-03 04:53: 31 05-05 04:52 :31 No 50mg 50 mg, Oral, Q8HPRN, Starting on Thu05/02/22 at 2253, Until 05/04/22 at 2252, Routine, Pain (scale 4-6) [facility] acetaminoph en (TYLENOL) tablet 650 mg 05-03 04:53: 29 Yes 650mg 650 mg, Oral, Q6HPRN, Starting on Thu05/02/22 at 2253, Until Discontinu ed, Routine, Pain (scale 1-3) [facility] iopamidol (ISOVUE 370-500 mL) injection 100 mL 05-03 02:45: 00 05-03 01:49 :00 No [id number] 100mL 100 mL, Intravenou s, ONCE, 1 dose, On Thu05/02/22 at 2045, Routine [facility] NaCl 0.9% (NS) bolus infusion 1,000 mL 05-03 01:45: 00 05-03 00:44 :00 No 1000mL at 999 mL/hr, 1,000 mL, IV Piggyback, ONCE, 1 dose, On Thu05/02/22 at 1945, STAT [facility] hydroCHLORO thiazide 12.5 mg capsule 05-02 22:53: 50 05-02 00:00 :00 No 12.5mg Take 12.5 mg by mouth daily. [facility] amoxicillin 500 mg tablet 04-18 00:00: 00 04-29 05:59 :00 No [id number] 500mg Take 1 tablet by mouth in the morning and 1 tablet in the evening. Do all this for 10 days. [facility] OMEPRAZOLE 20 mg capsule 10-24 00:00: 00 Yes [id number] Take 1 capsule by mouth once daily [facility] SIMVASTATIN 40 mg tablet 09-24 00:00: 00 01-29 00:00 :00 No [id number] TAKE 1 TABLET BY MOUTH ONCE DAILY AT BEDTIME [facility] galantamine 8 mg tablet 07-31 00:00: 00 Yes [id number] 8mg Take 1 tablet by mouth 2 (two) times daily. [facility] tamsulosin (FLOMAX) 0.4 mg 24 hr capsule 07-29 00:00: 00 08-27 00:00 :00 No [id number] .4mg Take 1 capsule by mouth daily. [facility] hydroCHLORO thiazide 12.5 mg capsule 2020-04 15:34: 14 Yes 12.5mg Take 12.5 mg by mouth daily. [facility] Vitamin E (E-PHEROL) 400 unit Tab 08-28 14:21: 44 Yes 1{tbl} Take 1 tablet by mouth daily. [facility] aspirin 81 mg EC tablet 08-28 14:21: 44 Yes 81mg Take 81 mg by mouth daily. [facility] latanoprost (XALATAN) 0.005 % ophthalmic drops 08-28 14:21: 44 Yes 1[drp] 1 Drop every evening. [facility] galantamine 12 mg tablet 08-28 00:00: 00 05-02 00:00 :00 No [id number] 12mg Take 1 tablet by mouth 2 (two) times daily. [facility] risperiDONE (RISPERDAL) 2 mg tablet 2019-04 00:00: 00 Yes [id number] 4mg Take 2 tablets by mouth every evening. [facility] brimonidine (ALPHAGAN) 0.2 % ophthalmic solution 2017-04 13:40: 32 Yes 1[drp] 1 Drop 3 (three) times daily. [facility] Fish Oil-DHA-EPA 1,200-144-2 16 mg Cap 2017-04 13:40: 32 Yes 1{capsu le} Take 1 capsule by mouth daily. [facility] Immunizations Ordered Immunization Name Filled Immunization Name Date Status Comments Source Influenza High Dose 2021-12-27 00:00:00 Completed [facility] Influenza High Dose 2021-12-27 00:00:00 Completed [facility] Influenza High Dose 2021-12-27 00:00:00 Completed [facility] Influenza High Dose 2021-12-27 00:00:00 Completed [facility] Influenza High Dose 2021-12-27 00:00:00 Completed [facility] Influenza High Dose 2021-12-27 00:00:00 Completed [facility] Influenza High Dose 2021-12-27 00:00:00 Completed [facility] Influenza High Dose 2021-12-27 00:00:00 Completed [facility] Influenza High Dose 2021-12-27 00:00:00 Completed [facility] Influenza High Dose 2021-12-27 00:00:00 Completed [facility] Influenza High Dose 2021-12-27 00:00:00 Completed [facility] Influenza High Dose 2021-12-27 00:00:00 Completed [facility] Influenza High Dose 2021-12-27 00:00:00 Completed [facility] Influenza High Dose 2021-12-27 00:00:00 Completed [facility] Influenza High Dose 2021-12-27 00:00:00 Completed [facility] Influenza High Dose 2021-12-27 00:00:00 Completed [facility] Influenza High Dose 2021-12-27 00:00:00 Completed [facility] Influenza High Dose 2021-12-27 00:00:00 Completed [facility] Influenza High Dose 2021-12-27 00:00:00 Completed [facility] Influenza High Dose 2021-12-27 00:00:00 Completed [facility] Influenza High Dose 2021-12-27 00:00:00 Completed [facility] Influenza High Dose 2021-12-27 00:00:00 Completed [facility] Influenza High Dose 2021-12-27 00:00:00 Completed [facility] Influenza High Dose 2021-12-27 00:00:00 Completed [facility] Influenza High Dose 2021-12-27 00:00:00 Completed [facility] Influenza High Dose 2021-12-27 00:00:00 Completed [facility] Influenza Virus Vaccine 2021-12-18 00:00:00 Completed [facility] Influenza Virus Vaccine 2021-12-18 00:00:00 Completed [facility] Influenza Virus Vaccine 2021-12-18 00:00:00 Completed [facility] Influenza Virus Vaccine 2021-12-18 00:00:00 Completed [facility] Influenza Virus Vaccine 2021-12-18 00:00:00 Completed [facility] Influenza Virus Vaccine 2021-12-18 00:00:00 Completed [facility] Influenza Virus Vaccine 2021-12-18 00:00:00 Completed [facility] Influenza Virus Vaccine 2021-12-18 00:00:00 Completed [facility] Influenza Virus Vaccine 2021-12-18 00:00:00 Completed [facility] Influenza Virus Vaccine 2021-12-18 00:00:00 Completed [facility] SARS-COV-2 COVID-19 VACCINE - (MODERNA) 2021-09-20 00:00:00 Completed [facility] SARS-COV-2 COVID-19 VACCINE - (MODERNA) 2021-09-20 00:00:00 Completed [facility] SARS-COV-2 COVID-19 VACCINE - (MODERNA) 2021-09-20 00:00:00 Completed [facility] SARS-COV-2 COVID-19 VACCINE - (MODERNA) 2021-09-20 00:00:00 Completed [facility] SARS-COV-2 COVID-19 VACCINE - (MODERNA) 2021-09-20 00:00:00 Completed [facility] SARS-COV-2 COVID-19 VACCINE - (MODERNA) 2021-09-20 00:00:00 Completed [facility] SARS-COV-2 COVID-19 VACCINE - (MODERNA) 2021-09-20 00:00:00 Completed [facility] SARS-COV-2 COVID-19 VACCINE - (MODERNA) 2021-09-20 00:00:00 Completed [facility] SARS-COV-2 COVID-19 VACCINE - (MODERNA) 2021-09-20 00:00:00 Completed [facility] SARS-COV-2 COVID-19 VACCINE - (MODERNA) 2021-09-20 00:00:00 Completed [facility] SARS-COV-2 COVID-19 VACCINE - (MODERNA) 2021-04-02 00:00:00 Completed [facility] SARS-COV-2 COVID-19 VACCINE - (MODERNA) 2021-04-02 00:00:00 Completed [facility] SARS-COV-2 COVID-19 VACCINE - (MODERNA) 2021-04-02 00:00:00 Completed [facility] SARS-COV-2 COVID-19 VACCINE - (MODERNA) 2021-04-02 00:00:00 Completed [facility] SARS-COV-2 COVID-19 VACCINE - (MODERNA) 2021-04-02 00:00:00 Completed [facility] SARS-COV-2 COVID-19 VACCINE - (MODERNA) 2021-04-02 00:00:00 Completed [facility] SARS-COV-2 COVID-19 VACCINE - (MODERNA) 2021-04-02 00:00:00 Completed [facility] SARS-COV-2 COVID-19 VACCINE - (MODERNA) 2021-04-02 00:00:00 Completed [facility] SARS-COV-2 COVID-19 VACCINE - (MODERNA) 2021-04-02 00:00:00 Completed [facility] SARS-COV-2 COVID-19 VACCINE - (MODERNA) 2021-04-02 00:00:00 Completed [facility] Influenza High Dose Quad 2020-12-27 00:00:00 Completed [facility] Influenza High Dose Quad 2020-12-27 00:00:00 Completed [facility] Influenza High Dose Quad 2020-12-27 00:00:00 Completed [facility] Influenza High Dose Quad 2020-12-27 00:00:00 Completed [facility] Influenza High Dose Quad 2020-12-27 00:00:00 Completed [facility] Influenza High Dose Quad 2020-12-27 00:00:00 Completed [facility] Influenza High Dose Quad 2020-12-27 00:00:00 Completed [facility] Influenza High Dose Quad 2020-12-27 00:00:00 Completed [facility] Influenza High Dose Quad 2020-12-27 00:00:00 Completed [facility] Influenza High Dose Quad 2020-12-27 00:00:00 Completed [facility] SARS-COV-2 COVID-19 MODERNA 12+ YRS VACCINE 2020-06-07 00:00:00 Completed [facility] SARS-COV-2 COVID-19 MODERNA 12+ YRS VACCINE 2020-06-07 00:00:00 Completed [facility] SARS-COV-2 COVID-19 MODERNA 12+ YRS VACCINE 2020-06-07 00:00:00 Completed [facility] SARS-COV-2 COVID-19 MODERNA 12+ YRS VACCINE 2020-06-07 00:00:00 Completed [facility] SARS-COV-2 COVID-19 MODERNA 12+ YRS VACCINE 2020-06-07 00:00:00 Completed [facility] SARS-COV-2 COVID-19 MODERNA 12+ YRS VACCINE 2020-06-07 00:00:00 Completed [facility] SARS-COV-2 COVID-19 MODERNA 12+ YRS VACCINE 2020-06-07 00:00:00 Completed [facility] SARS-COV-2 COVID-19 MODERNA 12+ YRS VACCINE 2020-06-07 00:00:00 Completed [facility] SARS-COV-2 COVID-19 MODERNA 12+ YRS VACCINE 2020-06-07 00:00:00 Completed [facility] SARS-COV-2 COVID-19 MODERNA 12+ YRS VACCINE 2020-06-07 00:00:00 Completed [facility] SARS-COV-2 COVID-19 MODERNA 12+ YRS VACCINE 2020-06-07 00:00:00 Completed [facility] SARS-COV-2 COVID-19 MODERNA 12+ YRS VACCINE 2020-06-07 00:00:00 Completed [facility] SARS-COV-2 COVID-19 MODERNA 12+ YRS VACCINE 2020-06-07 00:00:00 Completed [facility] SARS-COV-2 COVID-19 MODERNA 12+ YRS VACCINE 2020-06-07 00:00:00 Completed [facility] SARS-COV-2 COVID-19 MODERNA 12+ YRS VACCINE 2020-06-07 00:00:00 Completed [facility] SARS-COV-2 COVID-19 MODERNA 12+ YRS VACCINE 2020-06-07 00:00:00 Completed [facility] SARS-COV-2 COVID-19 MODERNA 12+ YRS VACCINE 2020-06-07 00:00:00 Completed [facility] SARS-COV-2 COVID-19 MODERNA 12+ YRS VACCINE 2020-06-07 00:00:00 Completed [facility] SARS-COV-2 COVID-19 MODERNA 12+ YRS VACCINE 2020-06-07 00:00:00 Completed [facility] SARS-COV-2 COVID-19 MODERNA 12+ YRS VACCINE 2020-06-07 00:00:00 Completed [facility] SARS-COV-2 COVID-19 MODERNA 12+ YRS VACCINE 2020-06-07 00:00:00 Completed [facility] SARS-COV-2 COVID-19 MODERNA 12+ YRS VACCINE 2020-06-07 00:00:00 Completed [facility] SARS-COV-2 COVID-19 MODERNA 12+ YRS VACCINE 2020-06-07 00:00:00 Completed [facility] SARS-COV-2 COVID-19 MODERNA 12+ YRS VACCINE 2020-06-07 00:00:00 Completed [facility] SARS-COV-2 COVID-19 MODERNA 12+ YRS VACCINE 2020-06-07 00:00:00 Completed [facility] SARS-COV-2 COVID-19 MODERNA 12+ YRS VACCINE 2020-06-07 00:00:00 Completed [facility] SARS-COV-2 COVID-19 MODERNA 12+ YRS VACCINE 2020-06-07 00:00:00 Completed [facility] SARS-COV-2 COVID-19 MODERNA 12+ YRS VACCINE 2020-06-07 00:00:00 Completed [facility] SARS-COV-2 COVID-19 MODERNA 12+ YRS VACCINE 2020-06-07 00:00:00 Completed [facility] SARS-COV-2 COVID-19 MODERNA 12+ YRS VACCINE 2020-06-07 00:00:00 Completed [facility] SARS-COV-2 COVID-19 MODERNA 12+ YRS VACCINE 2020-05-10 00:00:00 Completed [facility] SARS-COV-2 COVID-19 MODERNA 12+ YRS VACCINE 2020-05-10 00:00:00 Completed [facility] SARS-COV-2 COVID-19 MODERNA 12+ YRS VACCINE 2020-05-10 00:00:00 Completed [facility] SARS-COV-2 COVID-19 MODERNA 12+ YRS VACCINE 2020-05-10 00:00:00 Completed [facility] SARS-COV-2 COVID-19 MODERNA 12+ YRS VACCINE 2020-05-10 00:00:00 Completed [facility] SARS-COV-2 COVID-19 MODERNA 12+ YRS VACCINE 2020-05-10 00:00:00 Completed [facility] SARS-COV-2 COVID-19 MODERNA 12+ YRS VACCINE 2020-05-10 00:00:00 Completed [facility] SARS-COV-2 COVID-19 MODERNA 12+ YRS VACCINE 2020-05-10 00:00:00 Completed [facility] SARS-COV-2 COVID-19 MODERNA 12+ YRS VACCINE 2020-05-10 00:00:00 Completed [facility] SARS-COV-2 COVID-19 MODERNA 12+ YRS VACCINE 2020-05-10 00:00:00 Completed [facility] SARS-COV-2 COVID-19 MODERNA 12+ YRS VACCINE 2020-05-10 00:00:00 Completed [facility] SARS-COV-2 COVID-19 MODERNA 12+ YRS VACCINE 2020-05-10 00:00:00 Completed [facility] SARS-COV-2 COVID-19 MODERNA 12+ YRS VACCINE 2020-05-10 00:00:00 Completed [facility] SARS-COV-2 COVID-19 MODERNA 12+ YRS VACCINE 2020-05-10 00:00:00 Completed [facility] SARS-COV-2 COVID-19 MODERNA 12+ YRS VACCINE 2020-05-10 00:00:00 Completed [facility] SARS-COV-2 COVID-19 MODERNA 12+ YRS VACCINE 2020-05-10 00:00:00 Completed [facility] SARS-COV-2 COVID-19 MODERNA 12+ YRS VACCINE 2020-05-10 00:00:00 Completed [facility] SARS-COV-2 COVID-19 MODERNA 12+ YRS VACCINE 2020-05-10 00:00:00 Completed [facility] SARS-COV-2 COVID-19 MODERNA 12+ YRS VACCINE 2020-05-10 00:00:00 Completed [facility] SARS-COV-2 COVID-19 MODERNA 12+ YRS VACCINE 2020-05-10 00:00:00 Completed [facility] SARS-COV-2 COVID-19 MODERNA 12+ YRS VACCINE 2020-05-10 00:00:00 Completed [facility] SARS-COV-2 COVID-19 MODERNA 12+ YRS VACCINE 2020-05-10 00:00:00 Completed [facility] SARS-COV-2 COVID-19 MODERNA 12+ YRS VACCINE 2020-05-10 00:00:00 Completed [facility] SARS-COV-2 COVID-19 MODERNA 12+ YRS VACCINE 2020-05-10 00:00:00 Completed [facility] SARS-COV-2 COVID-19 MODERNA 12+ YRS VACCINE 2020-05-10 00:00:00 Completed [facility] SARS-COV-2 COVID-19 MODERNA 12+ YRS VACCINE 2020-05-10 00:00:00 Completed [facility] SARS-COV-2 COVID-19 MODERNA 12+ YRS VACCINE 2020-05-10 00:00:00 Completed [facility] SARS-COV-2 COVID-19 MODERNA 12+ YRS VACCINE 2020-05-10 00:00:00 Completed [facility] SARS-COV-2 COVID-19 MODERNA 12+ YRS VACCINE 2020-05-10 00:00:00 Completed [facility] SARS-COV-2 COVID-19 MODERNA 12+ YRS VACCINE 2020-05-10 00:00:00 Completed [facility] Influenza High Dose Quad 2019-12-09 00:00:00 Completed [facility] Influenza High Dose Quad 2019-12-09 00:00:00 Completed [facility] Influenza High Dose Quad 2019-12-09 00:00:00 Completed [facility] Influenza High Dose Quad 2019-12-09 00:00:00 Completed [facility] Influenza High Dose Quad 2019-12-09 00:00:00 Completed [facility] Influenza High Dose Quad 2019-12-09 00:00:00 Completed [facility] Influenza High Dose Quad 2019-12-09 00:00:00 Completed [facility] Influenza High Dose Quad 2019-12-09 00:00:00 Completed [facility] Influenza High Dose Quad 2019-12-09 00:00:00 Completed [facility] Influenza High Dose Quad 2019-12-09 00:00:00 Completed [facility] Influenza High Dose Quad 2019-12-09 00:00:00 Completed [facility] Influenza High Dose Quad 2019-12-09 00:00:00 Completed [facility] Influenza High Dose Quad 2019-12-09 00:00:00 Completed [facility] Influenza High Dose Quad 2019-12-09 00:00:00 Completed [facility] Influenza High Dose Quad 2019-12-09 00:00:00 Completed [facility] Influenza High Dose Quad 2019-12-09 00:00:00 Completed [facility] Influenza High Dose Quad 2019-12-09 00:00:00 Completed [facility] Influenza High Dose Quad 2019-12-09 00:00:00 Completed [facility] Influenza High Dose Quad 2019-12-09 00:00:00 Completed [facility] Influenza High Dose Quad 2019-12-09 00:00:00 Completed [facility] Influenza High Dose Quad 2019-12-09 00:00:00 Completed [facility] Influenza High Dose Quad 2019-12-09 00:00:00 Completed [facility] Influenza High Dose Quad 2019-12-09 00:00:00 Completed [facility] Influenza High Dose Quad 2019-12-09 00:00:00 Completed [facility] Influenza High Dose Quad 2019-12-09 00:00:00 Completed [facility] Influenza High Dose Quad 2019-12-09 00:00:00 Completed [facility] Influenza High Dose Quad 2019-12-09 00:00:00 Completed [facility] Influenza High Dose Quad 2019-12-09 00:00:00 Completed [facility] Influenza High Dose Quad 2019-12-09 00:00:00 Completed [facility] Influenza High Dose Quad 2019-12-09 00:00:00 Completed [facility] Influenza High Dose 2018-12-24 00:00:00 Completed [facility] Influenza High Dose 2018-12-24 00:00:00 Completed [facility] Influenza High Dose 2018-12-24 00:00:00 Completed [facility] Influenza High Dose 2018-12-24 00:00:00 Completed [facility] Influenza High Dose 2018-12-24 00:00:00 Completed [facility] Influenza High Dose 2018-12-24 00:00:00 Completed [facility] Influenza High Dose 2018-12-24 00:00:00 Completed [facility] Influenza High Dose 2018-12-24 00:00:00 Completed [facility] Influenza High Dose 2018-12-24 00:00:00 Completed [facility] Influenza High Dose 2018-12-24 00:00:00 Completed [facility] Influenza High Dose 2018-12-24 00:00:00 Completed [facility] Influenza High Dose 2018-12-24 00:00:00 Completed [facility] Influenza High Dose 2018-12-24 00:00:00 Completed [facility] Influenza High Dose 2018-12-24 00:00:00 Completed [facility] Influenza High Dose 2018-12-24 00:00:00 Completed [facility] Influenza High Dose 2018-12-24 00:00:00 Completed [facility] Influenza High Dose 2018-12-24 00:00:00 Completed [facility] Influenza High Dose 2018-12-24 00:00:00 Completed [facility] Influenza High Dose 2018-12-24 00:00:00 Completed [facility] Influenza High Dose 2018-12-24 00:00:00 Completed [facility] Influenza High Dose 2018-12-24 00:00:00 Completed [facility] Influenza High Dose 2018-12-24 00:00:00 Completed [facility] Influenza High Dose 2018-12-24 00:00:00 Completed [facility] Influenza High Dose 2018-12-24 00:00:00 Completed [facility] Influenza High Dose 2018-12-24 00:00:00 Completed [facility] Influenza High Dose 2018-12-24 00:00:00 Completed [facility] Influenza High Dose 2018-12-24 00:00:00 Completed [facility] Influenza High Dose 2018-12-24 00:00:00 Completed [facility] Influenza High Dose 2018-12-24 00:00:00 Completed [facility] Influenza High Dose 2018-12-24 00:00:00 Completed [facility] Influenza High Dose 2017-12-24 00:00:00 Completed [facility] Influenza High Dose 2017-12-24 00:00:00 Completed [facility] Influenza High Dose 2017-12-24 00:00:00 Completed [facility] Influenza High Dose 2017-12-24 00:00:00 Completed [facility] Influenza High Dose 2017-12-24 00:00:00 Completed [facility] Influenza High Dose 2017-12-24 00:00:00 Completed [facility] Influenza High Dose 2017-12-24 00:00:00 Completed [facility] Influenza High Dose 2017-12-24 00:00:00 Completed [facility] Influenza High Dose 2017-12-24 00:00:00 Completed [facility] Influenza High Dose 2017-12-24 00:00:00 Completed [facility] Influenza High Dose 2017-12-24 00:00:00 Completed [facility] Influenza High Dose 2017-12-24 00:00:00 Completed [facility] Influenza High Dose 2017-12-24 00:00:00 Completed [facility] Influenza High Dose 2017-12-24 00:00:00 Completed [facility] Influenza High Dose 2017-12-24 00:00:00 Completed [facility] Influenza High Dose 2017-12-24 00:00:00 Completed [facility] Influenza High Dose 2017-12-24 00:00:00 Completed [facility] Influenza High Dose 2017-12-24 00:00:00 Completed [facility] Influenza High Dose 2017-12-24 00:00:00 Completed [facility] Influenza High Dose 2017-12-24 00:00:00 Completed [facility] Influenza High Dose 2017-12-24 00:00:00 Completed [facility] Influenza High Dose 2017-12-24 00:00:00 Completed [facility] Influenza High Dose 2017-12-24 00:00:00 Completed [facility] Influenza High Dose 2017-12-24 00:00:00 Completed [facility] Influenza High Dose 2017-12-24 00:00:00 Completed [facility] Influenza High Dose 2017-12-24 00:00:00 Completed [facility] Influenza High Dose 2017-12-24 00:00:00 Completed [facility] Influenza High Dose 2017-12-24 00:00:00 Completed [facility] Influenza High Dose 2017-12-24 00:00:00 Completed [facility] Influenza High Dose 2017-12-24 00:00:00 Completed [facility] TDAP 2017-04-05 00:00:00 Completed [facility] TDAP 2017-04-05 00:00:00 Completed [facility] TDAP 2017-04-05 00:00:00 Completed [facility] TDAP 2017-04-05 00:00:00 Completed [facility] TDAP 2017-04-05 00:00:00 Completed [facility] TDAP 2017-04-05 00:00:00 Completed [facility] TDAP 2017-04-05 00:00:00 Completed [facility] TDAP 2017-04-05 00:00:00 Completed [facility] TDAP 2017-04-05 00:00:00 Completed [facility] TDAP 2017-04-05 00:00:00 Completed [facility] TDAP 2017-04-05 00:00:00 Completed [facility] TDAP 2017-04-05 00:00:00 Completed [facility] TDAP 2017-04-05 00:00:00 Completed [facility] TDAP 2017-04-05 00:00:00 Completed [facility] TDAP 2017-04-05 00:00:00 Completed [facility] TDAP 2017-04-05 00:00:00 Completed [facility] TDAP 2017-04-05 00:00:00 Completed [facility] TDAP 2017-04-05 00:00:00 Completed [facility] TDAP 2017-04-05 00:00:00 Completed [facility] TDAP 2017-04-05 00:00:00 Completed [facility] TDAP 2017-04-05 00:00:00 Completed [facility] TDAP 2017-04-05 00:00:00 Completed [facility] TDAP 2017-04-05 00:00:00 Completed [facility] TDAP 2017-04-05 00:00:00 Completed [facility] TDAP 2017-04-05 00:00:00 Completed [facility] TDAP 2017-04-05 00:00:00 Completed [facility] TDAP 2017-04-05 00:00:00 Completed [facility] TDAP 2017-04-05 00:00:00 Completed [facility] TDAP 2017-04-05 00:00:00 Completed [facility] TDAP 2017-04-05 00:00:00 Completed [facility] TDAP Unknown Completed [facility] Influenza High Dose Unknown Completed [facility] Influenza High Dose Unknown Completed [facility] SARS-COV-2 COVID-19 MODERNA 12+ YRS VACCINE Unknown Completed [facility] SARS-COV-2 COVID-19 MODERNA 12+ YRS VACCINE Unknown Completed [facility] Influenza High Dose Quad Unknown Completed [facility] Influenza High Dose Unknown Completed [facility] SARS-COV-2 COVID-19 VACCINE - (MODERNA) Unknown [facility] SARS-COV-2 COVID-19 VACCINE - [facility]MODERNA[facility] Com[facility] Influenza Virus Vaccine Unknown Completed [facility] TDAP Unknown Completed [facility] Influenza High Dose Unknown Completed [facility] Influenza High Dose Unknown Completed [facility] SARS-COV-2 COVID-19 MODERNA 12+ YRS VACCINE Unknown Completed [facility] SARS-COV-2 COVID-19 MODERNA 12+ YRS VACCINE Unknown Completed [facility] Influenza High Dose Quad Unknown Completed [facility] Influenza High Dose Unknown Completed [facility] SARS-COV-2 COVID-19 VACCINE - (MODERNA) Unknown Completed [facility] SARS-COV-2 COVID-19 VACCINE - (MODERNA) Unknown Completed [facility] Influenza High Dose Quad Unknown Completed [facility] Influenza Virus Vaccine Unknown Completed [facility] TDAP Unknown Completed [facility] Influenza High Dose Unknown Completed [facility] Influenza High Dose Unknown Completed [facility] SARS-COV-2 COVID-19 MODERNA 12+ YRS VACCINE Unknown Completed [facility] SARS-COV-2 COVID-19 MODERNA 12+ YRS VACCINE Unknown Completed [facility] Influenza High Dose Quad Unknown Completed [facility] Influenza High Dose Unknown Completed [facility] SARS-COV-2 COVID-19 VACCINE - (MODERNA) Unknown Completed [facility] SARS-COV-2 COVID-19 VACCINE - (MODERNA) Unknown Completed [facility] Influenza High Dose Quad Unknown Completed [facility] Influenza Virus Vaccine Unknown Completed [facility] TDAP Unknown Completed [facility] Influenza High Dose Unknown Completed [facility] Influenza High Dose Unknown Completed [facility] SARS-COV-2 COVID-19 MODERNA 12+ YRS VACCINE Unknown Completed [facility] SARS-COV-2 COVID-19 MODERNA 12+ YRS VACCINE Unknown Completed [facility] Influenza High Dose Quad Unknown Completed [facility] Influenza High Dose Unknown Completed [facility] SARS-COV-2 COVID-19 VACCINE - (MODERNA) Unknown Completed [facility] SARS-COV-2 COVID-19 VACCINE - (MODERNA) Unknown Completed [facility] Influenza High Dose Quad Unknown Completed [facility] Influenza Virus Vaccine Unknown Completed [facility] Remdesivir Unknown Com[facility] Remdesivir Unknown Com[facility] Remdesivir Unknown Com[facility] TDAP Unknown Completed [facility] Influenza High Dose Unknown Completed [facility] Influenza High Dose Unknown Completed [facility] SARS-COV-2 COVID-19 MODERNA 12+ YRS VACCINE Unknown Completed [facility] SARS-COV-2 COVID-19 MODERNA 12+ YRS VACCINE Unknown Completed [facility] Influenza High Dose Quad Unknown Completed [facility] Influenza High Dose Unknown Completed [facility] SARS-COV-2 COVID-19 VACCINE - (MODERNA) Unknown Completed [facility] SARS-COV-2 COVID-19 VACCINE - (MODERNA) Unknown Completed [facility] Influenza High Dose Quad Unknown Completed [facility] Influenza Virus Vaccine Unknown Completed [facility] Remdesivir Unknown Completed [facility] Remdesivir Unknown Com[facility] Remdesivir Unknown Completed [facility] TDAP Unknown Completed [facility] Influenza High Dose Unknown Completed [facility] Influenza High Dose Unknown Completed [facility] SARS-COV-2 COVID-19 MODERNA 12+ YRS VACCINE Unknown Completed [facility] SARS-COV-2 COVID-19 MODERNA 12+ YRS VACCINE Unknown Completed [facility] Influenza High Dose Quad Unknown Completed [facility] Influenza High Dose Unknown Completed [facility] SARS-COV-2 COVID-19 VACCINE - (MODERNA) Unknown Completed [facility] SARS-COV-2 COVID-19 VACCINE - (MODERNA) Unknown Completed [facility] Influenza High Dose Quad Unknown Completed [facility] Influenza Virus Vaccine Unknown Completed [facility] Remdesivir Unknown Completed [facility] Remdesivir Unknown Com[facility] Remdesivir Unknown Completed [facility] TDAP Unknown Completed [facility] Influenza High Dose Unknown Completed [facility] Influenza High Dose Unknown Completed [facility] SARS-COV-2 COVID-19 MODERNA 12+ YRS VACCINE Unknown Completed [facility] SARS-COV-2 COVID-19 MODERNA 12+ YRS VACCINE Unknown Completed [facility] Influenza High Dose Quad Unknown Completed [facility] Influenza High Dose Unknown Completed [facility] SARS-COV-2 COVID-19 VACCINE - (MODERNA) Unknown Completed [facility] SARS-COV-2 COVID-19 VACCINE - (MODERNA) Unknown Completed [facility] Influenza High Dose Quad Unknown Completed [facility] Influenza Virus Vaccine Unknown Completed [facility] Remdesivir Unknown Com[facility] Remdesivir Unknown [facility] V[facility] Signs Vital Name Observation Time Observation Value Comments [facility] Systolic blood pressure 2023-03-02 01:30:00 96 mm[Hg] [facility] Diastolic blood pressure 2023-03-02 01:30:00 52 mm[Hg] [facility] Heart rate 2023-03-02 01:30:00 68 /min [facility] Body temperature 2023-03-02 01:30:00 36.11 [facility] Respiratory rate 2023-03-02 01:30:00 8 /min [facility] Oxygen saturation in Arterial blood by Pulse oximetry 2023-03-02 01:30:00 98 /min [facility] Body height 2023 21:02:00 182.9 cm [facility] Body weight 2023 21:02:00 74.39 kg [facility] BMI 2023 21:02:00 22.24 kg/m2 [facility] Systolic blood pressure 2023-02-24 21:44:00 99 mm[Hg] [facility] Diastolic blood pressure 2023-02-24 21:44:00 55 mm[Hg] [facility] Heart rate 2023-02-24 21:44:00 75 /[facility] 2023-02-24 21:44:00 36.78 [facility] Respiratory rate 2023-02-24 21:44:00 16 /min [facility] Body height 2023-02-24 21:44:00 182.9 cm [facility] Body weight 2023-02-24 21:44:00 74.39 kg [facility] BMI 2023-02-24 21:44:00 22.24 kg/m2 [facility] Oxygen saturation in Arterial blood by Pulse oximetry 2023-02-24 21:44:00 98 /min [facility] Systolic blood pressure 2023-02-06 16:00:00 109 mm[Hg] [facility] [facility] Diastolic blood pressure 2023-02-06 16:00:00 75 mm[Hg] [facility] Heart rate 2023-02-06 16:00:00 80 /min [facility] Body temperature 2023-02-06 16:00:00 36.28 Nita [facility] Respiratory rate 2023-02-06 16:00:00 17 /min [facility] Oxygen saturation in Arterial blood by Pulse oximetry 2023-02-06 16:00:00 96 /min [facility] Body weight 2023-02-06 08:22:00 74.481 kg [facility] BMI 2023-02-06 08:22:00 22.27 kg/m2 [facility] Body height 2023-02-02 21:14:00 182.9 cm [facility] Systolic blood pressure 2023-01-29 16:38:00 108 mm[Hg] [facility] Diastolic blood pressure 2023-01-29 16:38:00 48 mm[Hg] [facility] Heart rate 2023-01-29 16:38:00 66 /min [facility] Body temperature 2023-01-29 16:38:00 37.06 Nita [facility] Oxygen saturation in Arterial blood by Pulse oximetry 2023-01-29 16:38:00 95 /min [facility] Respiratory rate 2023-01-29 09:17:00 16 /min [facility] Body weight 2023-01-29 09:17:00 73.982 kg [facility] BMI 2023-01-29 09:17:00 22.12 kg/m2 [facility] Body height 2023-01-25 23:25:00 182.9 cm [facility] Systolic blood pressure 2023-01-20 22:00:00 123 mm[Hg] [facility] Diastolic blood pressure 2023-01-20 22:00:00 80 mm[Hg] [facility] Heart rate 2023-01-20 22:00:00 82 /min [facility] Body temperature 2023-01-20 22:00:00 36.89 Nita [facility] Respiratory rate 2023-01-20 22:00:00 16 /min [facility] Oxygen saturation in Arterial blood by Pulse oximetry 2023-01-20 22:00:00 97 /min [facility] Body height 2023-01-20 19:16:00 167.6 cm [facility] Body weight 2023-01-20 19:16:00 80 kg [facility] BMI 2023-01-20 19:16:00 28.47 kg/m2 [facility] Systolic blood pressure 2022-12-01 16:54:00 125 mm[Hg] [facility] Diastolic blood pressure 2022-12-01 16:54:00 79 mm[Hg] [facility] Heart rate 2022-12-01 16:54:00 94 /min [facility] Body temperature 2022-12-01 16:54:00 36.56 Nita [facility] Respiratory rate 2022-12-01 16:54:00 18 /min [facility] Oxygen saturation in Arterial blood by Pulse oximetry 2022-12-01 16:54:00 94 /min [facility] Body weight 2022-12-01 09:25:00 70.988 kg [facility] BMI 2022-12-01 09:25:00 21.23 kg/m2 [facility] Body height 2022-11-30 01:41:00 182.9 cm [facility] Systolic blood pressure 2022-11-26 22:00:00 126 mm[Hg] [facility] Diastolic blood pressure 2022-11-26 22:00:00 64 mm[Hg] [facility] Heart rate 2022-11-26 22:00:00 80 /min [facility] Oxygen saturation in Arterial blood by Pulse oximetry 2022-11-26 22:00:00 97 /min [facility] Respiratory rate 2022-11-26 21:00:00 18 /min [facility] Body temperature 2022-11-26 19:03:00 36.5 Nita [facility] Body height 2022-11-26 19:03:00 188 cm [facility] Body weight 2022-11-26 19:03:00 95.255 kg [facility] BMI 2022-11-26 19:03:00 26.96 kg/m2 [facility] Body temperature 2022-10-30 17:00:00 36.94 Nita [facility] Heart rate 2022-10-30 16:32:00 93 /min [facility] Respiratory rate 2022-10-30 16:32:00 18 /min [facility] Oxygen saturation in Arterial blood by Pulse oximetry 2022-10-30 16:32:00 97 /min [facility] Systolic blood pressure 2022-10-30 16:00:00 114 mm[Hg] [facility] Diastolic blood pressure 2022-10-30 16:00:00 87 mm[Hg] [facility] Body weight 2022-10-29 21:00:00 70.988 kg [facility] BMI 2022-10-29 21:00:00 22.46 kg/m2 [facility] Body height 2022-10-28 03:11:00 177.8 cm [facility] Systolic blood pressure 2022-08-27 19:48:00 97 mm[Hg] [facility] Diastolic blood pressure 2022-08-27 19:48:00 66 mm[Hg] [facility] Heart rate 2022-08-27 19:48:00 78 /min [facility] Respiratory rate 2022-08-27 19:48:00 18 /min [facility] Body height 2022-08-27 19:48:00 182.9 cm [facility] Body weight 2022-08-27 19:48:00 70.761 kg [facility] BMI 2022-08-27 19:48:00 21.16 kg/m2 [facility] Systolic blood pressure 2022-07-26 16:20:00 103 mm[Hg] [facility] Diastolic blood pressure 2022-07-26 16:20:00 67 mm[Hg] [facility] Heart rate 2022-07-26 16:20:00 94 /min [facility] Body temperature 2022-07-26 16:20:00 36.94 Nita [facility] Respiratory rate 2022-07-26 16:20:00 20 /min [facility] Oxygen saturation in Arterial blood by Pulse oximetry 2022-07-26 16:20:00 94 /min [facility] Body weight 2022-07-26 09:30:00 70.988 kg [facility] BMI 2022-07-26 09:30:00 21.23 kg/m2 [facility] Body height 2022-07-21 02:02:00 182.9 cm [facility] Systolic blood pressure 2022-07-18 19:48:00 111 mm[Hg] [facility] Diastolic blood pressure 2022-07-18 19:48:00 61 mm[Hg] [facility] Heart rate 2022-07-18 19:48:00 69 /min [facility] Body temperature 2022-07-18 19:48:00 36.44 Nita [facility] Respiratory rate 2022-07-18 19:48:00 18 /min [facility] Body height 2022-07-18 19:48:00 185.4 cm [facility] Body weight 2022-07-18 19:48:00 74.39 kg [facility] BMI 2022-07-18 19:48:00 21.64 kg/m2 [facility] Oxygen saturation in Arterial blood by Pulse oximetry 2022-07-18 19:48:00 100 /min [facility] Systolic blood pressure 2022-06-10 20:00:00 140 mm[Hg] [facility] Diastolic blood pressure 2022-06-10 20:00:00 56 mm[Hg] [facility] Heart rate 2022-06-10 20:00:00 81 /min [facility] Body temperature 2022-06-10 20:00:00 36.89 Nita [facility] Respiratory rate 2022-06-10 20:00:00 14 /min [facility] Oxygen saturation in Arterial blood by Pulse oximetry 2022-06-10 20:00:00 100 /min [facility] Body height 2022-06-10 16:20:00 182.9 cm [facility] Body weight 2022-06-10 16:20:00 74.39 kg [facility] BMI 2022-06-10 16:20:00 22.24 kg/m2 [facility] Systolic blood pressure 2022-05-28 17:22:00 112 mm[Hg] [facility] Diastolic blood pressure 2022-05-28 17:22:00 66 mm[Hg] [facility] Heart rate 2022-05-28 17:22:00 83 /min [facility] Body temperature 2022-05-28 17:22:00 36.28 Nita [facility] Respiratory rate 2022-05-28 17:22:00 18 /min [facility] Oxygen saturation in Arterial blood by Pulse oximetry 2022-05-28 17:22:00 98 /min [facility] Body weight 2022-05-28 10:02:00 74.481 kg [facility] BMI 2022-05-28 10:02:00 22.27 kg/m2 [facility] Body height 2022-05-27 04:42:00 182.9 cm [facility] Systolic blood pressure 2022-05-05 22:34:00 102 mm[Hg] [facility] Diastolic blood pressure 2022-05-05 22:34:00 58 mm[Hg] [facility] Heart rate 2022-05-05 22:34:00 79 /min [facility] Body temperature 2022-05-05 22:34:00 36.22 Nita [facility] Respiratory rate 2022-05-05 22:34:00 18 /min [facility] Oxygen saturation in Arterial blood by Pulse oximetry 2022-05-05 22:34:00 94 /min [facility] Body weight 2022-05-05 10:07:00 73.982 kg [facility] BMI 2022-05-05 10:07:00 20.94 kg/m2 [facility] Body height 2022-05-03 04:50:00 188 cm [facility] Systolic blood pressure 2021-12-05 19:40:00 115 mm[Hg] [facility] Diastolic blood pressure 2021-12-05 19:40:00 73 mm[Hg] [facility] Heart rate 2021-12-05 19:40:00 59 /min [facility] Body weight 2021-12-05 19:40:00 77.701 kg [facility] BMI 2021-12-05 19:40:00 23.89 kg/m2 [facility] Oxygen saturation in Arterial blood by Pulse oximetry 2021-12-05 19:40:00 97 /min [facility] Procedures Procedure Date / Time Performed Performing Clinician Source XR ANKLE 3+ VW RIGHT 2023 23:02:00 Joseph Melendez [facility] COMP. METABOLIC PANEL (85844) 2023 21:37:00 Joseph Melendez [facility] CBC WITH DIFF 2023 21:37:00 Joseph Melendez [facility] BASIC METABOLIC PANEL (NA, K, CL, CO2, GLUCOSE, BUN, CREATININE, CA) 2023-02-24 21:45:00 Nicanor Lentz [facility] AUTHORIZATION FOR RELEASE OF PHI 2023-02-20 06:01:00 Doctor Unassigned, [place] [facility] BASIC METABOLIC PANEL (NA, K, CL, CO2, GLUCOSE, BUN, CREATININE, CA) 2023-02-05 08:20:00 Andreina Childs [facility] CBC WITH DIFF 2023-02-05 08:20:00 Andreina Childs [facility] BASIC METABOLIC PANEL (NA, K, CL, CO2, GLUCOSE, BUN, CREATININE, CA) 2023-02-04 09:27:00 Andreina Childs [facility] CBC WITH DIFF 2023-02-04 09:27:00 Andreina Childs [facility] JESSE AURIS SURVEILLANCE BY PCR (INFECTION CONTROL PURPOSES) 2023-02-03 21:48:00 Andreina Childs [facility] URINALYSIS 2023-02-03 14:42:00 Josefina Dasilva [facility] CBC WITH DIFF 2023-02-03 11:25:00 [facility]a [facility]ios [facility] BASIC METABOLIC PANEL (NA, K, CL, CO2, GLUCOSE, BUN, CREATININE, CA) 2023-02-03 10:19:00 Marlena Rios [facility] PROCALCITONIN 2023-02-03 10:19:00 [facility] XR CHEST 1 VW 2023-02-02 19:00:15 Andreina Uriarte [facility] COMP. METABOLIC PANEL ([id number]) 2023-02-02 16:53:00 Andreina Uriarte [facility] CBC WITH DIFF 2023-02-02 16:53:00 Andreina Uriarte [facility] RAPID INFLUENZA A/B 2023-02-02 16:53:00 Andreina Uriarte [facility] COVID-19 (ID NOW RAPID TESTING) 2023-02-02 16:53:00 Andreina Uriarte [facility] LAB ONLY COVID INTERPRETATION 2023-02-02 16:53:00 Andreina Uriarte [facility] XR CHEST 1 VW 2023-01-28 18:01:19 Marlena Rios [facility] BASIC METABOLIC PANEL (NA, K, CL, CO2, GLUCOSE, BUN, CREATININE, CA) 2023-01-27 10:13:00 Andreina Childs [facility] VANCOMYCIN TROUGH 2023-01-27 10:13:00 Angelica Braga [facility] CBC WITH DIFF 2023-01-27 10:13:00 Andreina Childs [facility] WOUND/ASPIRATE OR ABSCESS CULTURE 2023-01-26 18:02:00 Keerthi Solorzano [facility] WOUND CULTURE 2023-01-26 18:02:00 Keerthi Solorzano [facility] MRSA / MSSA SCREEN BY PCRARNOLD 2023-01-25 23:19:00 Marques Hines [facility] BLOOD CULTURE SCREEN 2023-01-25 20:41:00 Lavon Soni [facility] COMP. METABOLIC PANEL ([id number]) 2023-01-25 20:41:00 Virginia Soni [facility] SEDIMENTATION RATE 2023-01-25 20:41:00 Marco A Soni [facility] CBC WITH DIFF 2023-01-25 20:41:00 Virginia Soni [facility] LACTIC ACID WHOLE BLOOD 2023-01-25 20:41:00 Virginia Soni [facility] XR ANKLE 3+ VW RIGHT 2023-01-25 20:38:12 Lavon Soni [facility] CONSENT/REFUSAL FOR DIAGNOSIS AND TREATMENT 2023-01-25 20:04:39 Doctor Unassigned, [place] [facility] EMERGENCY DEPARTMENT DOCUMENTS 2023-01-25 05:01:00 Doctor Unassigned, [place] [facility] RAPID STREP SCREEN FOR GROUP A 2023-01-20 21:38:00 Virginia Soni [facility] CT HEAD WO CONTRAST 2023-01-20 19:55:01 Hali Soni ra [facility] XR CHEST 1 VW 2023-01-20 19:54:03 Virginia Soni [facility] MAGNESIUM 2023-01-20 19:24:00 [facility] 2023-01-20 19:24:00 Virginia Soni Un [facility] COMP. METABOLIC PANEL ([id number]) 2023-01-20 19:24:00 Virginia Soni [facility] CBC WITH DIFF 2023-01-20 19:24:00 Virginia Soni [facility] RAPID INFLUENZA A/B 2023-01-20 19:24:00 Hali Soni ra [facility] N-TERMINAL PRO-BNP 2023-01-20 19:24:00 Marco A Soni [facility] COVID-19 (ID NOW RAPID TESTING) 2023-01-20 19:24:00 Virginia Soni [facility] BASIC METABOLIC PANEL (NA, K, CL, CO2, GLUCOSE, BUN, CREATININE, CA) 2022-12-01 11:21:00 Andreina Childs [facility] XR ANKLE 3+ VW RIGHT 2022-11-30 01:09:00 Juon Verdin [facility] XR KUB 2022-11-29 23:28:59 Juno Verdin [facility] COMP. METABOLIC PANEL ([id number]) 2022-11-29 23:10:00 Juno Verdin [facility] CBC WITH DIFF 2022-11-29 23:10:00 Juno Verdin [facility] CT ABDOMEN PELVIS W CONTRAST 2022-11-26 21:46:20 Frankie Olman [facility] COMP. METABOLIC PANEL ([id number]) 2022-11-26 19:54:00 Frankie Olman [facility] CBC WITH DIFF 2022-11-26 19:54:00 Frankie Olman [facility] ASSIGNMENT OF BENEFITS 2022-11-26 19:35:58 Docto r Unassigned, [place] [facility] CONSENT/REFUSAL FOR DIAGNOSIS AND TREATMENT 2022-11-26 19:35:18 Doctor Unassigned, [place] [facility] XR CHEST 1 VW 2022-11-26 19:29:39 Frankie Olman [facility] CONSENT/REFUSAL FOR DIAGNOSIS AND TREATMENT 2022-11-26 19:13:37 Doctor Unassigned, [place] [facility] CONSENT/REFUSAL FOR DIAGNOSIS AND TREATMENT 2022-11-26 19:09:05 Doctor Unassigned, [place] [facility] EXTERNAL PROVIDER - ADC CARDIOLOGY 2022-11-21 05:01:00 Doctor Unassigned, [place] [facility] XR CHEST 1 VW 2022-10-30 11:30:00 Aziza Echevarria [facility] MAGNESIUM 2022-10-30 09:09:00 [facility]OLIC PANEL (NA, K, CL, CO2, GLUCOSE, BUN, CREATININE, CA) 2022-10-30 09:09:[address] [facility] CBC WITH DIFF 2022-10-30 09:09:00 Wale [facility] POCT GLUCOSE (AUTOMATED) 2022-10-29 13:16:00 Harvinder [facility] MAGNESIUM 2022-10-29 07:50:00 Aziza Echevarria [facility] BASIC METABOLIC PANEL (NA, K, CL, CO2, GLUCOSE, BUN, CREATININE, CA) 2022-10-29 07:50:[address] [facility] CBC WITH DIFF 2022-10-29 07:50:00 Wale [facility] POCT GLUCOSE (AUTOMATED) 2022-10-29 01:59:00 [facility] POCT GLUCOSE (AUTOMATED) 2022-10-28 [facility]:26[facility]SE (AUTOMATED) 2022-10-28 16:56:00 [facility] LEGIONELLA AND STREPTOCOCCUS PNEUMONIAE URINARY ANTIGENS 2022-10-28 16:05:00 [facility] JESSE AURIS SURVEILLANCE BY PCR (INFECTION CONTROL PURPOSES) 2022-10-28 15:51:[address] [facility] BASIC METABOLIC PANEL (NA, K, CL, CO2, GLUCOSE, BUN, CREATININE, CA) 2022-10-28 15:45:[address] [facility] CBC WITH DIFF 2022-10-28 15:45:00 Wale [facility] LACTIC ACID WHOLE BLOOD 2022-10-28 15:32:00 Abu Virginia celaya [facility] PROCALCITONIN 2022-10-28 15:32:00 u Lydia Stevenson [facility] POCT GLUCOSE (AUTOMATED) 2022-10-28 13:54:00 Harvinder [facility] BLOOD CULTURE SCREEN 2022-10-28 06:55:00 Lashon Beck i [facility] XR CHEST 1 VW 2022-10-28 04:21:00 Marcie Nickerson [facility] THROAT CULTURE 2022-10-28 03:42:00 Marcie Nickerson [facility] RAPID STREP SCREEN FOR GROUP A 2022-10-28 03:42:00 Marcie Nickerson [facility] COVID-19 (ID NOW RAPID TESTING) 2022-10-28 03:42:00 Marcie Nickerson [facility] LAB ONLY COVID INTERPRETATION 2022-10-28 03:42:00 Marcie Nickerson [facility] MAGNESIUM 2022-10-28 03:26:00 [facility]az [facility] TROPONIN I 2022-10-28 03:26:00 Marcie Nickerson [facility] COMP. METABOLIC PANEL ([id number]) 2022-10-28 03:26:00 Macrie Nickerson [facility] CBC WITH DIFF 2022-10-28 03:26:00 Marcie Nickerson [facility] GLYCOSYLATED HEMOGLOBIN (A1C) 2022-10-28 03:26:00 Lydia Tristan [facility] URINALYSIS 2022-10-28 03:26:00 Marcie Nickerson [facility] LACTIC ACID WHOLE BLOOD 2022-10-28 03:26:00 Marcie Nickerson [facility] ASSIGNMENT OF BENEFITS 2022-10-28 03:23:04 Docto r Unassigned, [place] [facility] NOTICE OF PRIVACY PRACTICES 2022-10-28 03:22:29 Doctor Unassigned, [place] [facility] CONSENT/REFUSAL FOR DIAGNOSIS AND TREATMENT 2022-10-28 03:22:10 Doctor Unassigned, [place] [facility] HB ECG ROUTINE & RHYTHM STRIP 2022-10-28 03:09:11 Marcie Nickerson [facility] CT THORAX W CONTRAST 2022-07-25 18:16:16 Juancarlos Rios i [facility] RAPID INFLUENZA A/B 2022-07-25 17:15:00 [place] ([facility] NOW [facility]APID TESTING) 2022-07-25 17:15:00 Marlena Rios [facility] BASIC METABOLIC PANEL (NA, K, CL, CO2, GLUCOSE, BUN, CREATININE, CA) 2022-07-25 09:46:00 Andreina Childs [facility] CBC WITH DIFF 2022-07-25 09:46:00 Amadeo Andreina [facility] XR CHEST 1 VW 2022-07-25 00:09:00 Amadeo Andreina [facility] BASIC METABOLIC PANEL (NA, K, CL, CO2, GLUCOSE, BUN, CREATININE, CA) 2022-07-24 09:31:00 Amadeo Andreina [facility] CBC WITH DIFF 2022-07-24 09:31:00 Amadeo [facility] MRSA / MSSA SCREEN BY PCRARNOLD 2022-07-23 21:06:00 Amadeo Andreina [facility] CBC WITH DIFF 2022-07-22 10:41:00 Leroy Soni [facility] BASIC METABOLIC PANEL (NA, K, CL, CO2, GLUCOSE, BUN, CREATININE, CA) 2022-07-22 09:09:00 Leroy Soni [facility] WOUND/ASPIRATE OR ABSCESS CULTURE 2022-07-21 16:22:00 Alirio Locke [facility] WOUND CULTURE 2022-07-21 16:22:00 Alirio Locke [facility] XR ANKLE <3 VW RIGHT 2022-07-21 12:18:38 Norm Lentz [facility] BLOOD CULTURE SCREEN 2022-07-21 02:26:00 Norm Lentz [facility] COMP. METABOLIC PANEL ([id number]) 2022-07-21 02:26:00 Nicanor Lentz [facility] SEDIMENTATION RATE 2022-07-21 02:26:00 Singer [facility] CBC WITH DIFF 2022-07-21 02:26:00 Nicanor Lentz [facility] LACTIC ACID WHOLE BLOOD 2022-07-21 02:25:00 Singer Ph [facility] LACTIC ACID WHOLE BLOOD 2022-07-18 20:14:00 , Tatyana [facility] COMP. METABOLIC PANEL ([id number]) 2022-07-18 20:12:00 Singer [facility] SEDIMENTATION RATE 2022-07-18 20:12:00 Singer [facility] CBC WITH DIFF 2022-07-18 20:12:00 Singer [facility] CT ABDOMEN PELVIS W CONTRAST 2022-06-10 18:56:57 Joseph Melendez Veronica [facility] XR CHEST 1 VW 2022-06-10 18:39:57 Joseph Melendez [facility] URINALYSIS 2022-06-10 18:30:00 Joseph [facility]endez [facility] ASSIGNMENT OF BENEFITS 2022-06-10 17:41:23 Docto r Unassigned, [place] [facility] CONSENT/REFUSAL FOR DIAGNOSIS AND TREATMENT 2022-06-10 17:39:47 Doctor Unassigned, [place] [facility] LIPASE 2022-06-10 17:15:00 Joseph Melendez [facility] MAGNESIUM 2022-06-10 17:15:00 Joseph [facility]endez [facility] TROPONIN I 2022-06-10 17:15:00 Joseph [facility]endez [facility] COMP. METABOLIC PANEL ([id number]) 2022-06-10 17:15:00 Joseph Melendez [facility] CBC WITH DIFF 2022-06-10 17:15:00 Joseph Melendez Veronica [facility] EXTERNAL PROVIDER RECORDS 2022-06-03 06:01:00 Do ctor Unassigned, [place] [facility] BASIC METABOLIC PANEL (NA, K, CL, CO2, GLUCOSE, BUN, CREATININE, CA) 2022-05-28 10:01:00 Andreina Childs [facility] CBC WITH DIFF 2022-05-28 10:01:00 Andreina Childs [facility] BASIC METABOLIC PANEL (NA, K, CL, CO2, GLUCOSE, BUN, CREATININE, CA) 2022-05-27 10:03:00 Bailey [facility] CBC WITH DIFF 2022-05-27 10:03:00 [facility] CT ABDOMEN PELVIS WO CONTRAST 2022-05-27 00:19:06 Krishan [facility] XR CHEST 1 VW 2022-05-27 00:18:27 Marcie Nickerson [facility] COMP. METABOLIC PANEL ([id number]) 2022-05-26 23:52:00 Marcie Nickerson [facility] CBC WITH DIFF 2022-05-26 22:55:00 Marcie Nickerson [facility] COVID-19 (ID NOW RAPID TESTING) 2022-05-26 22:41:00 Krishan [facility] LAB ONLY COVID INTERPRETATION 2022-05-26 22:41:00 Krishan [facility] BASIC METABOLIC PANEL (NA, K, CL, CO2, GLUCOSE, BUN, CREATININE, CA) 2022-05-05 10:38:00 Leroy Soni [facility] CBC WITH DIFF 2022-05-05 10:38:00 Leroy Soni [facility] FECES CULTURE 2022-05-03 15:27:00 Bailey [facility] OCCULT (GUAIAC) BLOOD 2022-05-03 15:27:00 Randi Dasilva [facility] CLOSTRIDIUM DIFFICILE TOXIN 2022-05-03 15:25:00 Singer [facility] BASIC METABOLIC PANEL (NA, K, CL, CO2, GLUCOSE, BUN, CREATININE, CA) 2022-05-03 11:51:00 Bailey [facility] CBC WITH DIFF 2022-05-03 11:51:[address] [facility] [address] ABDOMEN PELVIS W CONTRAST 2022-05-03 01:40:00 Singer Nicanor [facility] COMP. METABOLIC PANEL ([id number]) 2022-05-03 00:41:00 Nicanor Lentz [facility] CBC WITH DIFF 2022-05-03 00:41:00 Nicanor Lentz [facility] Encounters Start Date/Time End Date/Time Encounter Type Admission Type Attending Clinicians Care Facility Care Department Encounter ID Source 2023-09-02 13:45:00 2023-09-02 13:45:00 Outpatient R TRIVEDI, NATALIE [facility] [id number] [facility] 2023 14:51:00 2023 20:06:00 Emergency X AL, K [facility] [id number] [facility] 2023 14:51:00 2023 20:06:00 Emergency Joseph Melendezge [facility] [id number] [facility] 2023-02-24 15:31:00 2023-02-24 17:09:00 Emergency X NICANOR LENTZ [facility] ERT [id number] [facility] 2023-02-24 15:31:00 2023-02-24 17:09:00 Emergency Nicanor Lentz [facility] [facility] 1.2.840.114 350.1.13.10 4.2.7.2.686 [id number] [id number] [facility] 2023-02-09 00:00:00 2023-02-09 00:00:00 Transition of Care Shira Mead PLAYOLANDA 1.2.840.114 350.1.13.10 4.2.7.2.686 [id number] [facility] 2023-02-02 11:13:00 2023-02-06 14:30:00 Inpatient X DONNYMARQUES [facility] [id number] [facility] 2023-02-02 11:13:00 2023-02-06 14:30:00 Hospital Encounter Andreina Uriarte, Marques Talamantes [facility] 1.2840.114 350.1.13.10 4.2.7.2.686 [id number] [id number] [facility] 2023-01-25 14:59:00 2023-01-29 14:45:00 Outpatient Kevin MARQUES HINES [facility] [id number] [facility] 2023-01-25 14:59:00 2023-01-29 14:45:00 Emergency Virginia Soni [facility] 1.2840.114 350.1.13.10 4.2.7.2.686 [id number] [facility] 2023-01-20 14:16:00 2023-01-20 18:32:00 Emergency VIRGINIA FRANK [facility] [id number] [facility] 2023-01-20 14:16:00 2023-01-20 18:32:00 Emergency Virginia Soni [facility] 1.2840.114 350.1.13.10 4.2.7.2.686 [id number] [id number] [facility] 2022-12-02 00:00:00 2022-12-02 00:00:00 Transition of Care Ena Vaughn 1.2840.114 350.1.13.10 4.2.7.2.686 [id number] [facility] 2022-11-29 17:47:00 2022-12-01 15:01:00 Outpatient MARQUES ABDALLA [facility] [id number] [facility] 2022-11-29 17:47:00 2022-12-01 15:01:00 Emergency Juno Verdin [facility] 1.2840.114 350.1.13.10 4.2.7.2.686 [id number] [id number] [facility] 2022-11-26 14:05:00 2022-11-26 20:18:00 Emergency X OLMAN DAVID [facility] [id number] [facility] 2022-11-26 14:05:00 2022-11-26 20:18:00 Emergency Olman David [facility] 1.2.840.114 350.1.13.10 4.2.7.2.686 [id number] [id number] [facility] 2022-11-21 00:00:00 2022-11-21 00:00:00 Orders Only Doctor Unassigned, [place] [facility] 1.2840.114 350.1.13.10 4.2.7.2.686 [id number] [facility] 2022-10-31 00:00:00 2022-10-31 00:00:00 Transition of Care Ena Vaughn 1.2840.114 350.1.13.10 4.2.7.2.686 [id number] [facility] 2022-10-27 22:03:00 2022-10-30 14:20:00 Inpatient X LARRY STEVENSON [facility] [id number] [facility] 2022-10-27 22:03:00 2022-10-30 14:20:00 Hospital Encounter Marcie Nickerson, Margie Roberts, [facility] 1.2840.114 350.1.13.10 4.2.7.2.686 [id number] [facility] 2022-08-27 14:15:00 2022-08-27 15:25:22 Outpatient NATALIE SALTER [facility] [id number] [facility] 2022-08-27 14:15:00 2022-08-27 15:25:22 Office Visit Natalie Trivedi [facility] BUILDING 1.2840.114 350.1.13.10 4.2.7.2.686 [id number] [facility] 2022-07-31 00:00:00 2022-07-31 00:00:00 Patient Secure Msg Doctor Unassigned, [place] [facility] 1.840.114 350.1.13.10 4.2.7.2.686 [id number] [facility] 2022-07-30 14:15:00 2022-07-30 14:15:00 Outpatient R NATALIE TRIVEDI [facility] [id number] [facility] 2022-07-28 00:00:00 2022-07-28 00:00:00 Transition of Care Ena Vaughn [facility] 1.840.114 350.1.13.10 4.2.7.2.686 [id number] [facility] 2022-07-20 20:56:00 2022-07-26 16:35:00 Hospital Encounter Nicanor Lentz Santhosh Morris, David [facility] 1.840.114 350.1.13.10 4.2.7.2.686 [id number] [id number] [facility] 2022-07-18 14:46:00 2022-07-18 18:35:00 Emergency X NICANOR LENTZ [facility] [id number] [facility] 2022-07-18 14:46:00 2022-07-18 18:35:00 Emergency Nicanor Lentz [facility] 1.2840.114 350.1.13.10 4.2.7.2.686 [id number] [facility] 2022-07-18 14:46:00 2022-07-18 18:35:00 Emergency X NICANOR LENTZ [facility] [id number] [facility] 2022-07-02 00:00:00 2022-07-02 00:00:00 Telephone Jean Jarrett [facility] NAL BUILDING 1.2840.114 350.1.13.10 4.2.7.2.686 [id number] [facility] 2022-07-01 00:00:00 2022-07-01 00:00:00 Telephone Chan [facility]?BIPIN [facility] MEDICAL OFFICE BUILDING 1..114 350.1.13.10 4.2.7.2.686 [id number] 044 [id number] [facility] 2022-06-19 14:30:00 2022-06-19 14:30:00 Outpatient R GILES [facility] [id number] [facility] 2022-06-16 00:00:00 2022-06-16 00:00:00 Telephone Chan [facility]?BIPIN [facility] MEDICAL OFFICE BUILDING 1.0.114 350.1.13.10 4.2.7.2.686 [id number] [id number] [facility] 2022-06-10 10:22:00 2022-06-10 16:51:00 Emergency X Joseph MELENDEZ [facility] [id number] [facility] 2022-06-10 10:22:00 2022-06-10 16:51:00 Emergency Joseph Melendez [facility] 1.0.114 350.1.13.10 4.2.7.2.686 [id number] [facility] 2022-06-03 00:00:00 2022-06-03 00:00:00 Orders Only Doctor Unassigned, [place] [facility] 1.2840.114 350.1.13.10 4.2.7.2.686 [id number] [facility] 2022-06-03 00:00:00 2022-06-03 00:00:00 [facility] MED[facility] OFF[facility] BUILDING 1.2840.114 350.1.13.10 4.2.7.2.686 [id number] 044 [id number] [facility] 2022-05-29 00:00:00 2022-05-29 00:00:00 Transition of Care Ena Vaughn 1.2840.114 350.1.13.10 4.2.7.2.686 [id number] [facility] 2022-05-26 16:25:00 2022-05-28 14:40:00 Inpatient X [facility] [id number] [facility] 2022-05-26 16:25:00 2022-05-28 14:40:00 Hospital Encounter KrishanMarciejannie [facility] 1.840.114 350.1.13.10 4.2.7.2.686 [id number] [id number] [facility] 2022-05-23 00:00:00 2022-05-23 00:00:00 Telephone Chan [facility] MEDICAL OFFICE BUILDING 1.20.114 350.1.13.10 4.2.7.2.686 [id number] [id number] [facility] 2022-05-05 18:41:00 2022-05-16 14:13:00 In[place] 3 [place] [id number] [facility] [place] 2022-05-06 00:00:00 2022-05-06 00:00:00 Transition of Care Ena Vaughn 1.2840.114 350.1.13.10 4.2.7.2.686 [id number] [facility] 2022-05-02 18:19:00 2022-05-05 17:40:00 Outpatient X JOSEFINA DASILVA [facility] [id number] [facility] 2022-05-02 18:19:00 2022-05-05 17:40:00 Emergency LentzNicanor [facility] 1.2.840.114 350.1.13.10 4.2.7.2.686 [id number] [id number] [facility] 2022-05-01 00:00:00 2022-05-01 00:00:00 [facility] MEDICAL OFFICE BUILDING 1.2.840.114 350.1.13.10 4.2.7.2.686 [id number] 044 [id number] [facility] 2022-04-17 00:00:00 2022-04-17 00:00:00 Telephone [facility] MEDICAL OFFICE BUILDING 1.2.840.114 350.1.13.10 4.2.7.2.686 [id number] 044 [id number] [facility] 2021-12-05 14:30:00 2021-12-05 14:45:00 Office [facility] MEDICAL OFFICE BUILDING 1.2.840.114 350.1.13.10 4.2.7.2.686 [id number] 044 [id number] [facility] 2021-12-05 14:30:00 2021-12-05 14:30:00 Outpatient DOUGIE BLACKMON [facility] [id number] [facility] 2021-12-05 14:30:00 2021-12-05 14:30:00 Outpatient DOUGIE BLACKMON [facility] [id number] [facility] 2021-12-05 00:00:00 2021-12-05 00:00:00 Orders Only Doctor Unassigned, [place] [facility] 1.2.840.114 350.1.13.10 4.2.7.2.686 [id number] [facility] 2021-11-28 14:00:00 2021-11-28 14:00:00 Outpatient Joaquín GILES DOUGIE [facility] [id number] [facility] 2021-11-27 00:00:00 2021-11-27 00:00:00 [facility] 1..840.114 350.1.13.10 4.2.7.2.686 [id number] [facility] 2021-11-21 14:30:00 2021-11-21 14:30:00 Outpatient DOUGIE BLACKMON [facility] [id number] [facility] 2021-11-18 15:00:00 2021-11-18 15:00:00 Nurse Visit Nurse, [facility] 1..840.114 350.1.13.10 4.2.7.2.686 [id number] [facility] 2021-11-18 15:00:00 2021-11-18 13:15:55 Outpatient R NATALIE TRIVEDI [facility] [id number] [facility] 2021-11-11 11:15:00 2021-11-11 14:37:03 [id number] 2021-11-11 11:15:00 2021-11-11 14:37:03 Nurse Visit Nurse, [facility] 1..840.114 350.1.13.10 4.2.7.2.686 [id number] [facility] 2021-11-11 00:00:00 2021-11-11 00:00:00 Telephone Natalie Trivedi [facility] BUILDING 1.2.840.114 350.1.13.10 4.2.7.2.686 [id number] [facility] 2021-10-24 00:00:00 2021-10-24 00:00:00 Refill Chan [facility]?BIPIN [facility] MEDICAL OFFICE BUILDING 1..840.114 350.1.13.10 4.2.7.2.686 [id number] 044 [id number] [facility] 2021-10-22 16:00:00 2021-10-22 16:00:00 Nurse Visit Nurse, [facility] Farooq [facility] 1..840.114 350.1.13.10 4.2.7.2.686 [id number] [facility] 2021-10-22 16:00:00 2021-10-22 15:58:34 Out[facility] [id number] [facility] 2021-10-22 00:00:00 2021-10-22 00:00:00 Telephone Natalie Trivedi [facility] BUILDING 1..840.114 350.1.13.10 4.2.7.2.686 [id number] [facility] 2021-09-24 00:00:00 2021-09-24 00:00:00 [facility]ill [facility] MEDICAL OFFICE BUILDING 1.2.840.114 350.1.13.10 4.2.7.2.686 [id number] [id number] [facility] 2021-09-17 00:00:00 2021-09-17 00:00:00 Orders Only Doctor Unassigned, [place] [facility] 1.2840.114 350.1.13.10 4.2.7.2.686 [id number] [facility] 2021-07-31 15:00:00 2021-07-31 15:42:22 Outpatient R [facility] [id number] [facility] 2021-07-31 15:00:00 2021-07-31 15:42:22 Office Visit Farooq [facility] 1.2.840.114 350.1.13.10 4.2.7.2.686 [id number] [facility] 2021-07-31 15:00:00 2021-07-31 15:00:00 Outpatient R [facility] [id number] [facility] 2021-07-31 00:00:00 2021-07-31 00:00:00 Orders Only Doctor Unassigned, [place] [facility] 1.2840.114 350.1.13.10 4.2.7.2.686 [id number] [id number] [facility] 2021-07-30 00:00:00 2021-07-30 00:00:00 Telephone Jelani Cordon [facility]?BIPIN JHA MEDICAL OFFICE BUILDING 1.2.840.114 350.1.13.10 4.2.7.2.686 [id number] 092 [id number] [facility] 2021-07-29 00:00:00 2021-07-29 00:00:00 Telephone Jean Jarrett [facility] BUILDING 1.2.840.114 350.1.13.10 4.2.7.2.686 [id number] [facility] 2021-07-22 00:00:00 2021-07-22 00:00:00 Orders Only Doctor Unassigned, [place] [facility] 1.2840.114 350.1.13.10 4.2.7.2.686 [id number] [id number] [facility] 2021-06-26 00:00:00 2021-06-26 00:00:00 Orders Only Doctor Unassigned, [place] [facility] 1.2840.114 350.1.13.10 4.2.7.2.686 [id number] [id number] [facility] 2021-06-19 14:30:00 2021-06-19 14:30:00 Outpatient DOUGIE BLACKMON [facility] [id number] [facility] 2021-06-15 00:00:00 2021-06-15 00:00:00 Orders Only Doctor Unassigned, [place] [facility] 1.2840.114 350.1.13.10 4.2.7.2.686 [id number] [id number] [facility] 2021-06-03 15:45:00 2021-06-03 15:45:00 [facility] [id number] [facility] 2021-06-03 00:00:00 2021-06-03 00:00:00 Telephone [facility] 1.840.114 350.1.13.10 4.2.7.2.686 [id number] [facility] 2021-05-15 00:00:00 2021-05-15 00:00:00 Telephone Dougie Giles [facility] 1..840.114 350.1.13.10 4.2.7.2.686 [id number] [id number] [facility] 2021-05-01 00:00:00 2021-05-01 00:00:00 Telephone Liane Negrete [facility] 1.840.114 350.1.13.10 4.2.7.2.686 [id number] [facility] 2021-04-30 00:00:00 2021-04-30 00:00:00 Telephone Only, Ang Db Test [facility] MEDICAL OFFICE BUILDING 1.84.114 350.1.13.10 4.2.7.2.686 [id number] [facility] 2021-04-29 15:00:00 2021-04-29 15:15:00 Laboratory Only Only, Ang Db Test FahadManniean [facility] 1.84.114 350.1.13.10 4.2.7.2.686 [id number] [facility] 2021-04-29 15:00:00 2021-04-29 15:00:00 Outpatient MANNIE DODD [facility] [id number] [facility] 2021-04-29 00:00:00 2021-04-29 00:00:00 Orders Only Doctor Unassigned, [place] [facility] 1.2840.114 350.1.13.10 4.2.7.2.686 [id number] [facility] 2021-04-11 14:15:00 2021-04-11 15:10:33 Outpatient DOUGIE BLACKMON [facility] [id number] [facility] 2021-04-11 14:15:00 2021-04-11 14:30:00 Office Visit Dougie Giles [facility] MEDICAL OFFICE BUILDING 1.84.114 350.1.13.10 4.2.7.2.686 [id number] [facility] 2021-04-11 14:15:00 2021-04-11 14:15:00 Outpatient DOUGIE BLACKMON [facility] [id number] [facility] 2021-04-11 14:15:00 2021-04-11 14:15:00 Outpatient R DOUGIE GILES [facility] [id number] [facility] 2021-04-11 14:15:00 2021-04-11 14:15:00 Outpatient R DOUGIE GILES [facility] [id number] [facility] 2021-03-25 15:30:00 2021-03-25 16:15:24 Outpatient R MARGI BOYD [facility] [id number] [facility] 2021-03-25 15:30:00 2021-03-25 16:15:24 Office Visit Margi Boyd Mayte [facility] 1..840.114 350.1.13.10 4.2.7.2.686 [id number] [facility] 2021-03-25 15:30:00 2021-03-25 16:15:24 Outpatient R MARGI BOYD [facility] [id number] [facility] 2021-03-08 00:00:00 2021-03-08 00:00:00 Orders Only Doctor Unassigned, [place] [facility] 1..840.114 350.1.13.10 4.2.7.2.686 [id number] [facility] 2021-03-07 13:15:00 2021-03-07 14:35:42 Outpatient R JEAN JARRETT [facility] [id number] [facility] 2021-03-07 13:12:17 2021-03-07 14:35:42 Office Visit Jean Jarrett [facility] 1..840.114 350.1.13.10 4.2.7.2.686 [id number] [facility] 2021-03-07 13:15:00 2021-03-07 13:15:00 Outpatient R JEAN JARRETT [facility] [id number] [facility] 2021-02-25 00:00:00 2021-02-25 00:00:00 Orders Only Doctor Unassigned, [place] [facility] 1.2840.114 350.1.13.10 4.2.7.2.686 [id number] [id number] [facility] 2021-02-21 00:00:00 2021-02-21 00:00:00 Telephone Chan Dougie [facility]?BIPIN [facility] MEDICAL OFFICE BUILDING 1.114 350.1.13.10 4.2.7.2.686 [id number] 044 [id number] [facility] 2021-02-01 00:00:00 2021-02-01 00:00:00 Telephone Jelani Cordon [facility] 1.114 350.1.13.10 4.2.7.2.686 [id number] [facility] 2021-01-30 00:00:00 2021-01-30 00:00:00 Telephone Chan Dougie [facility]?BIPIN [facility] MEDICAL OFFICE BUILDING 1.114 350.1.13.10 4.2.7.2.686 [id number] 044 [id number] [facility] 2021-01-30 00:00:00 2021-01-30 00:00:00 Telephone Chan Dougie [facility]?MARISAMayte MUNOZ MEDICAL OFFICE BUILDING 1.114 350.1.13.10 4.2.7.2.686 [id number] 044 [id number] [facility] 2021-01-18 15:11:53 2021-01-18 15:41:53 Office Visit Justine Garcia [facility]?Bipin [facility] Medical Office Building 1.2.114 350.1.13.10 4.2.7.2.686 [id number] 044 [id number] [facility] 2021-01-18 15:00:00 2021-01-18 15:00:00 Outpatient R SIERRA JUSTINE [facility] [id number] [facility] 2021-01-17 00:00:00 2021-01-17 00:00:00 [facility]Bipin jha Medical Office Building 1..114 350.1.13.10 4.2.7.2.686 [id number] 044 [id number] [facility] 2020-11-22 00:00:00 2020-11-22 00:00:00 Telephone Chan [facility] Office Building One .114 350.1.13.10 4.2.7.2.686 [id number] 044 [id number] [facility] 2020-11-19 00:00:00 2020-11-19 00:00:00 [facility]ill [facility] 1..114 350.1.13.10 4.2.7.2.686 [id number] 044 [id number] [facility] 2020-10-18 11:40:10 2020-10-18 12:00:10 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, Adc Fam Pob I Chan [facility] Office Building One .114 350.1.13.10 4.2.7.2.686 [id number] 044 [id number] [facility] 2020-10-18 11:20:00 2020-10-18 11:20:00 Outpatient R [facility] [id number] [facility] 2020-10-11 13:52:36 2020-10-11 14:07:36 Office Visit Chan [facility] Office Building One .114 350.1.13.10 4.2.7.2.686 [id number] [facility] 2020-10-11 14:00:00 2020-10-11 14:00:00 Outpatient DOUGEI BLACKMON [facility] [id number] [facility] 2020-10-11 00:00:00 2020-10-11 00:00:00 Orders Only Doctor Unassigned, [place] [facility] 1.2840.114 350.1.13.10 4.2.7.2.686 [id number] [facility] 2020-09-28 00:00:00 2020-09-28 00:00:00 Dougie Burgess [facility] 1..840.114 350.1.13.10 4.2.7.2.686 [id number] [id number] [facility] 2020-09-27 14:00:00 2020-09-27 14:00:00 Outpatient DOUGIE BLACKMON [facility] [id number] [facility] 2020-08-28 13:43:19 2020-08-28 14:44:37 Office Visit Jelani Cordon [facility] 1.2.840.114 350.1.13.10 4.2.7.2.686 [id number] [facility] 2020-08-28 14:20:00 2020-08-28 14:20:00 Outpatient JELANI NOVAK HOWARD [facility] [id number] [facility] 2020-08-02 00:00:00 2020-08-02 00:00:00 Jelani Espinoza [facility] 1.2.840.114 350.1.13.10 4.2.7.2.686 [id number] [facility] 2020-07-17 00:00:00 2020-07-17 00:00:00 Orders Only Doctor Unassigned, [place] [facility] 1.114 350.1.13.10 4.2.7.2.686 [id number] [id number] [facility] 2020-07-09 00:00:00 2020-07-09 00:00:00 RefDougie Perez [facility] Office Building One 1.114 350.1.13.10 4.2.7.2.686 [id number] [facility] 2020-06-07 17:50:00 2020-06-07 17:50:00 Outpatient JEZ DUNNE [facility] [id number] [facility] 2020-06-07 16:00:00 2020-06-07 16:00:00 Outpatient JEZ DUNNE [facility] [id number] [facility] 2020-05-10 18:10:00 2020-05-10 18:10:00 Outpatient JEZ DUNNE [facility] [id number] [facility] 2020-05-08 00:00:00 2020-05-08 00:00:00 Jelani Espinoza [facility] Building 1.114 350.1.13.10 4.2.7.2.686 [id number] [facility] 2020-04-02 00:00:00 2020-04-02 00:00:00 RefDougie Perez [facility] Building 1.114 350.1.13.10 4.2.7.2.686 [id number] [facility] 2020-03-12 00:00:00 2020-03-12 00:00:00 Dougie Beaulieu [facility] Office Building One 1.114 350.1.13.10 4.2.7.2.686 [id number] [facility] 2020-03-09 00:00:00 2020-03-09 00:00:00 Telephone Jelani Cordon [facility] Professio nal Building 1.284.114 350.1.13.10 4.2.7.2.686 [id number] [facility] 2020-01-11 00:00:00 2020-01-11 00:00:00 Telephone Jelani Cordon [facility] Building 1.2.114 350.1.13.10 4.2.7.2.686 [id number] [facility] 2019-10-03 00:00:00 2019-10-03 00:00:00 Telephone Jelani Cordon [facility] Building 1.284.114 350.1.13.10 4.2.7.2.686 [id number] [facility] 2019-09-22 08:30:00 2019-09-22 08:30:00 Outpatient DOUGIE BLACKMON [facility] [id number] [facility] 2019-09-19 13:45:00 2019-09-19 13:45:00 Outpatient DOUGIE BLACKMON [facility] [id number] [facility] 2019-09-19 07:50:44 2019-09-19 08:05:44 Telemedici ne Visit Chan Dougie [facility] Building 1.284.114 350.1.13.10 4.2.7.2.686 [id number] [facility] 2019-07-19 00:00:00 2019-07-19 00:00:00 Refill Jelani Cordon [facility] Building 1.284.114 350.1.13.10 4.2.7.2.686 [id number] [facility] 2019-07-18 00:00:00 2019-07-18 00:00:00 Refill Jelani Cordon [facility] Professio nal Building 1.2.840.114 350.1.13.10 4.2.7.2.686 [id number] [facility] 2019-07-11 00:00:00 2019-07-11 00:00:00 [facility]gregoria [facility] Building One 1.2.840.114 350.1.13.10 4.2.7.2.686 [id number] [facility] 2019-06-13 00:00:00 2019-06-13 00:00:00 Telephone Jelani Cordon [facility] Building 1.2.840.114 350.1.13.10 4.2.7.2.686 [id number] [facility] 2019-05-23 14:20:22 2019-05-23 15:03:09 Office Visit [facility] 1.2.840.114 350.1.13.10 4.2.7.2.686 [id number] [facility] 2019-05-19 13:41:15 2019-05-19 23:59:00 Outpatient R JELANI CORDON HOWARD [facility] [id number] [facility] 2019-05-19 13:41:00 2019-05-19 23:59:00 Hospital Encounter Jelani Cordon [facility] 1.2.840.114 350.1.13.10 4.2.7.2.686 [id number] [facility] 2019-05-10 13:35:57 2019-05-10 14:47:10 Office Visit Jelani Cordon [facility] [facility] [id number] 350.1.13.10 4.2.7.2.686 [id number] [facility] 2019-05-10 00:00:00 2019-05-10 00:00:00 Orders Only Doctor Unassigned, [place] [facility] 1.2840.114 350.1.13.10 4.2.7.2.686 [id number] [facility] 2019-04-19 00:00:00 2019-04-19 00:00:00 Orders Only Doctor Unassigned, [place] [facility] 1.2840.114 350.1.13.10 4.2.7.2.686 [id number] [facility] 2016-02-26 03:16:00 2016-02-26 03:16:00 [facility] [id number] 1214 [facility] Results Test Description Test Time Test Comments Results Result Co mments Source [facility] WITH [id number] 21:58:52* Test Item Value Reference Range Interpretation Comme nts WBC (test code = 6690-2) 6.24 See_Comment [Automated [employer]] The system which generated this result transmitted reference range: 4.20 - 10.70 10*3/?L. The reference range was not used to interpret this result as normal/abnormal. RBC (test code = 789-8) 4.28 See_Comment [Automated [employer]] The system which generated this result transmitted reference range: 4.26 - 5.52 10*6/?L. The reference range was not used to interpret this result as normal/abnormal. HGB (test code = 718-7) 12.9 g/dL 12.2-16.4 HCT (test code = 4544-3) 38.8 % 38.4-49.3 MCV (test code = 787-2) 90.7 fL 81.7-95.6 MCH (test code = 785-6) 30.1 pg 26.1-32.7 MCHC (test code = 786-4) 33.2 g/dL 31.2-35.0 RDW-SD (test code = 24528-3) 48.7 fL 38.5-51.6 RDW-CV (test code = 788-0) 14.7 % 12.1-15.4 PLT (test code = 777-3) 209 See_Comment [Automated messa ge] The system which generated this result transmitted reference range: 150 - 328 10*3/?L. The reference range was not used to interpret this result as normal/abnormal. MPV (test code = 43777-1) 8.6 fL 9.8-13.0 L NRBC/100 WBC (test code = 6533582551) 0.0 See_Comment [Automated Nov[employer] ssage] The system which generated this result transmitted reference range: 0.0 - 10.0 /100 WBCs. The reference range was not used to interpret this result as normal/abnormal. NRBC x10^3 (test code = 1003179875) See_Comment [Automated messa ge] The system which generated this result transmitted reference range: 10*3/?L. The reference range was not used to interpret this result as normal/abnormal. GRAN MAT (NEUT) % (test code = 770-8) 66.3 % IMM GRAN % (test code = 2850088658) 0.30 % LYMPH % (test code = 736-9) 21.3 % MONO % (test code = 5905-5) 8.8 % EOS % (test code = 713-8) 3.0 % BASO % (test code = 706-2) 0.3 % GRAN MAT x10^3(ANC) (test code = 9317207753) 4.13 10*3/uL 1.99-6.95 IMM GRAN x10^3 (test code = 0205829984) 0.00-0.06 LYMPH x10^3 (test code = 731-0) 1.33 10*3/uL 1.09-3.23 MONO x10^3 (test code = 742-7) 0.55 10*3/uL 0.36-1.02 EOS x10^3 (test code = 711-2) 0.19 10*3/uL 0.06-0.53 BASO x10^3 (test code = 704-7) 0.01-0.09 Lab Interpretation (test code = 47734-5) Abnormal [facility] METABOLIC PANEL (NA, K, CL, CO2, GLUCOSE, BUN, CREATININE, CA)2023-02-24 22:19:20* Test Item Value Reference Range Interpretation Comme nts NA (test code = 3857694339) 137 mmol/L 135-145 K (test code = 9836417441) 3.8 mmol/L 3.5-5.0 CL (test code = 4377459233) 106 mmol/L 98-108 CO2 TOTAL (test code = 5011980434) 24 mmol/L 23-31 AGAP (test code = 7838446247) 7 2-16 BUN (test code = 4130194696) 25 mg/dL 7-23 H GLUCOSE (test code = 2565655280) 109 mg/dL 70-110 CREATININE (test code = 0492277284) 0.56 mg/dL 0.60-1.25 L CALCIUM (test code = 1955224013) 8.8 mg/dL 8.6-10.6 eGFR (test code = 61032-5) 101.5 mL/min/1.73m2 CKD-EPI eGFR (2020). Assuming creatinine has been stable day-to-day for at least three months, the eGFR indicates Category G1 (>= 90 mL/min/1.73 m2) Lab Interpretation (test code = 49775-2) Abnormal [facility] METABOLIC PANEL (NA, K, CL, CO2, GLUCOSE, BUN, CREATININE, CA)2023-02-05 10:07:11* Test Item Value Reference Range Interpretation Comme nts NA (test code = 6199341275) 141 mmol/L 135-145 K (test code = 8935981020) 3.9 mmol/L 3.5-5.0 CL (test code = 2129192003) 110 mmol/L 98-108 H CO2 TOTAL (test code = 7799898434) 24 mmol/L 23-31 AGAP (test code = 2576284794) 7 2-16 BUN (test code = 8807489810) 26 mg/dL 7-23 H GLUCOSE (test code = 4421867106) 88 mg/dL 70-110 CREATININE (test code = 6828039847) 0.62 mg/dL 0.60-1.25 CALCIUM (test code = 7341631636) 8.5 mg/dL 8.6-10.6 L eGFR (test code = 87710-3) 98.4 mL/min/1.73m2 CKD-EPI eGFR (2020). Assuming creatinine has been stable day-to-day for at least three months, the eGFR indicates Category G1 (>= 90 mL/min/1.73 m2) Lab Interpretation (test code = 92064-7) Abnormal [facility] WITH [id number] 08:38:12* Test Item Value Reference Range Interpretation Comme nts WBC (test code = 6690-2) 7.22 See_Comment [Automated [employer]] The system which generated this result transmitted reference range: 4.20 - 10.70 10*3/?L. The reference range was not used to interpret this result as normal/abnormal. RBC (test code = 789-8) 3.64 See_Comment L [Automated [employer]] The system which generated this result transmitted reference range: 4.26 - 5.52 10*6/?L. The reference range was not used to interpret this result as normal/abnormal. HGB (test code = 718-7) 10.7 g/dL 12.2-16.4 L HCT (test code = 4544-3) 33.4 % 38.4-49.3 L MCV (test code = 787-2) 91.8 fL 81.7-95.6 MCH (test code = 785-6) 29.4 pg 26.1-32.7 MCHC (test code = 786-4) 32.0 g/dL 31.2-35.0 RDW-SD (test code = 43511-8) 50.4 fL 38.5-51.6 RDW-CV (test code = 788-0) 14.9 % 12.1-15.4 PLT (test code = 777-3) 171 See_Comment [Automated [employer]] The system which generated this result transmitted reference range: 150 - 328 10*3/?L. The reference range was not used to interpret this result as normal/abnormal. MPV (test code = 98657-3) 8.5 fL 9.8-13.0 L NRBC/100 WBC (test code = 0592322356) 0.0 See_Comment [Automated me ssage] The system which generated this result transmitted reference range: 0.0 - 10.0 /100 WBCs. The reference range was not used to interpret this result as normal/abnormal. NRBC x10^3 (test code = 1455333361) See_Comment [Automated messa ge] The system which generated this result transmitted reference range: 10*3/?L. The reference range was not used to interpret this result as normal/abnormal. GRAN MAT (NEUT) % (test code = 770-8) 71.3 % IMM GRAN % (test code = 9460845752) 1.00 % LYMPH % (test code = 736-9) 19.3 % MONO % (test code = 5905-5) 6.9 % EOS % (test code = 713-8) 1.4 % BASO % (test code = 706-2) 0.1 % GRAN MAT x10^3(ANC) (test code = 3997189279) 5.15 10*3/uL 1.99-6.95 IMM GRAN x10^3 (test code = 1898896895) 0.07 10*3/uL 0.00-0.06 H LYMPH x10^3 (test code = 731-0) 1.39 10*3/uL 1.09-3.23 MONO x10^3 (test code = 742-7) 0.50 10*3/uL 0.36-1.02 EOS x10^3 (test code = 711-2) 0.10 10*3/uL 0.06-0.53 BASO x10^3 (test code = 704-7) 0.01-0.09 Lab Interpretation (test code = 72511-9) Abnormal [facility] METABOLIC PANEL (NA, K, CL, CO2, GLUCOSE, BUN, CREATININE, CA)2023-02-04 11:48:34* Test Item Value Reference Range Interpretation Comme nts NA (test code = 0463641352) 141 mmol/L 135-145 K (test code = 5387508734) 3.8 mmol/L 3.5-5.0 CL (test code = 2718999012) 109 mmol/L 98-108 H CO2 TOTAL (test code = 5327192362) 23 mmol/L 23-31 AGAP (test code = 3805751235) 9 2-16 BUN (test code = 2651230698) 27 mg/dL 7-23 H GLUCOSE (test code = 3390069748) 114 mg/dL 70-110 H CREATININE (test code = 2043730403) 0.65 mg/dL 0.60-1.25 CALCIUM (test code = 0932469270) 8.7 mg/dL 8.6-10.6 eGFR (test code = 51950-2) 97.0 mL/min/1.73m2 CKD-EPI eGFR (2020). Assuming creatinine has been stable day-to-day for at least three months, the eGFR indicates Category G1 (>= 90 mL/min/1.73 m2) Lab Interpretation (test code = 58841-8) Abnormal [facility] WITH [id number] 10:36:47* Test Item Value Reference Range Interpretation Comme nts WBC (test code = 6690-2) 9.11 See_Comment [Automated [employer]] The system which generated this result transmitted reference range: 4.20 - 10.70 10*3/?L. The reference range was not used to interpret this result as normal/abnormal. RBC (test code = 789-8) 3.59 See_Comment L [Automated [employer]] The system which generated this result transmitted reference range: 4.26 - 5.52 10*6/?L. The reference range was not used to interpret this result as normal/abnormal. HGB (test code = 718-7) 10.8 g/dL 12.2-16.4 L HCT (test code = 4544-3) 33.6 % 38.4-49.3 L MCV (test code = 787-2) 93.6 fL 81.7-95.6 MCH (test code = 785-6) 30.1 pg 26.1-32.7 MCHC (test code = 786-4) 32.1 g/dL 31.2-35.0 RDW-SD (test code = 52824-8) 50.7 fL 38.5-51.6 RDW-CV (test code = 788-0) 14.7 % 12.1-15.4 PLT (test code = 777-3) 192 See_Comment [Automated [employer]] The system which generated this result transmitted reference range: 150 - 328 10*3/?L. The reference range was not used to interpret this result as normal/abnormal. MPV (test code = 67392-9) 8.6 fL 9.8-13.0 L NRBC/100 WBC (test code = 3688570529) 0.0 See_Comment [Automated [employer] ssage] The system which generated this result transmitted reference range: 0.0 - 10.0 /100 WBCs. The reference range was not used to interpret this result as normal/abnormal. NRBC x10^3 (test code = 0985846130) See_Comment [Automated [employer]] The system which generated this result transmitted reference range: 10*3/?L. The reference range was not used to interpret this result as normal/abnormal. GRAN MAT (NEUT) % (test code = 770-8) 80.5 % IMM GRAN % (test code = 5736306830) 0.70 % LYMPH % (test code = 736-9) 10.6 % MONO % (test code = 5905-5) 7.9 % EOS % (test code = 713-8) 0.1 % BASO % (test code = 706-2) 0.2 % GRAN MAT x10^3(ANC) (test code = 0985672596) 7.33 10*3/uL 1.99-6.95 H IMM GRAN x10^3 (test code = 1873023601) 0.06 10*3/uL 0.00-0.06 LYMPH x10^3 (test code = 731-0) 0.97 10*3/uL 1.09-3.23 L MONO x10^3 (test code = 742-7) 0.72 10*3/uL 0.36-1.02 EOS x10^3 (test code = 711-2) 0.06-0.53 L BASO x10^3 (test code = 704-7) 0.01-0.09 Lab Interpretation (test code = 11703-0) [facility]30* Test Item Value Reference Range Interpretation Comme ricardo Procalcitonin (test code = 3506459757) 0.06 ng/mL <=0.07 STEPHANIE (test code = STEPHANIE) INTERPRETATION OF PROCALCITONIN RESULTS IN ADULTS >= 18 YEARS OF AGE Initiation and discontinuation of antibiotics on patients with suspected or confirmed Lower Respiratory Tract Infection in Adults >= 18 years of age. + +-------- --------+ + -----+|Procalcitonin |Interpretation ?|Antibiotic ? ? |Considerations ? |ng/mL ? | ?|recommendation | ? + +-------- --------+ + -----+| <0.1 ? | Bacterial ? ? ?| Strongly ? ? ?| ? | ?| infection very | discouraged ? | Overruling: ? | ?| unlikely ? ? ? | ? | ? Clinically unstable ? ? ? + +-------- --------+ + ? High risk for adverse ? ? | <0.25 ?| Bacterial ? ? ?| Discouraged ? | ? outcome ? | ?| infection ? ? ?| ? | ? SEE IMPORTANT NOTE ?| ?| unlikely ? ? ? | ? | ? + +-------- --------+ + -----+| >=0.25 ? ? ? | Bacterial ? ? ?| Encouraged ? ?| ? | ?| infection ? ? ?| ? | ? | ?| likely ? | ? | Consider treatment failure ?+ +------- ---------+ -+ if levels does not decrease | >0.5 ? | Bacterial ? ? ?| Strongly ? ? ?| appropriately ? | ?| infection very | encouraged ? ?| ? | ?| likely ? | ? | ? + +-------- --------+ + -----+ Discontinuation of antibiotics in high-acuity patients with suspected or confirmed sepsis in Adults >= 18 years of age. + +-------- --------+ + -----+|Procalcitonin |Interpretation ?|Antibiotic ? ? |Considerations ? |ng/mL ? | ?|recommendation | ? + +-------- --------+ + -----+| <0.25 ?| Bacterial ? ? ?| Strongly ? ? ?| ? | ?| infection very | discouraged ? | Overruling: ? | ?| unlikely ? ? ? | ? | ? Clinically unstable ? ? ? + +-------- --------+ + ? High risk for adverse ? ? | <0.5 or drop | Bacterial ? ? ?| Discouraged ? | ? outcome ? | >80% from ? ?| infection ? ? ?| ? | ? SEE IMPORTANT NOTE ?| highest PCT ?| unlikely ? ? ? | ? | ? | level ?| ?| ? | ? + +-------- --------+ + -----+| >=0.5 ?| Bacterial ? ? ?| Encouraged ? ?| ? | ?| infection ? ? ?| ? | ? | ?| likely ? | ? | Consider treatment failure ?+ +------- ---------+ -+ if levels does not decrease | >1.0 ? | Bacterial ? ? ?| Strongly ? ? ?| appropriately ? | ?| infection very | encouraged ? ?| ? | ?| likely ? | ? | ? + +-------- --------+ + -----+ Percentage of drop of Procalcitonin calculation for Discontinuation of antibiotics in high-acuity patients with suspected or confirmed sepsis in Adults >= 18 years of age. ? Procalcitonin highest{}-Procalcitonin current{}Delta Procalcitonin = x100% ? Procalcitonin current {} IMPORTANT NOTE: Procalcitonin may be elevated without bacterial infection by physiologic stress related to trauma, guidry, chronic dialysis, metastatic cancer, surgery in the past seven days, malaria, some fungal infections, and some forms of vasculitis. The interpretation algorithm may not apply to patients with immunosuppression (equivalent of >10 mg of prednisone daily), HIV with CD4 cell count < 350 cells/mm3, active malignancy on systemic chemotherapy, solid organ transplant or hematopoietic stem cell transplantation, or hospital acquired pneumonia. Additionally, some clinical trials of procalcitonin have excluded patients with shock requiring vasopressor use, acute respiratory failure requiring mechanical ventilation, or those with known lung abscess/empyema. For further information please refer to:[email or web address] Lab Interpretation (test code = 40394-3) Normal [facility] with [id number] 12:23:54* Test Item Value Reference Range Interpretation Comme nts WBC (test code = 6690-2) 4.43 See_Comment [Automated [employer]] The system which generated this result transmitted reference range: 4.20 - 10.70 10*3/?L. The reference range was not used to interpret this result as normal/abnormal. RBC (test code = 789-8) 3.88 See_Comment L [Automated [employer]] The system which generated this result transmitted reference range: 4.26 - 5.52 10*6/?L. The reference range was not used to interpret this result as normal/abnormal. HGB (test code = 718-7) 11.4 g/dL 12.2-16.4 L HCT (test code = 4544-3) 36.3 % 38.4-49.3 L MCV (test code = 787-2) 93.6 fL 81.7-95.6 MCH (test code = 785-6) 29.4 pg 26.1-32.7 MCHC (test code = 786-4) 31.4 g/dL 31.2-35.0 RDW-SD (test code = 31674-3) 51.0 fL 38.5-51.6 RDW-CV (test code = 788-0) 14.6 % 12.1-15.4 PLT (test code = 777-3) 183 See_Comment [Automated messa ge] The system which generated this result transmitted reference range: 150 - 328 10*3/?L. The reference range was not used to interpret this result as normal/abnormal. MPV (test code = 41506-1) 8.5 fL 9.8-13.0 L NRBC/100 WBC (test code = 6101109604) 0.0 See_Comment [Automated me ssage] The system which generated this result transmitted reference range: 0.0 - 10.0 /100 WBCs. The reference range was not used to interpret this result as normal/abnormal. NRBC x10^3 (test code = 9086655020) See_Comment [Automated messa ge] The system which generated this result transmitted reference range: 10*3/?L. The reference range was not used to interpret this result as normal/abnormal. GRAN MAT (NEUT) % (test code = 770-8) 60.9 % IMM GRAN % (test code = 7908297048) 0.50 % LYMPH % (test code = 736-9) 18.1 % MONO % (test code = 5905-5) 20.3 % EOS % (test code = 713-8) 0.0 % BASO % (test code = 706-2) 0.2 % GRAN MAT x10^3(ANC) (test code = 5319843418) 2.70 10*3/uL 1.99-6.95 IMM GRAN x10^3 (test code = 5080175705) 0.00-0.06 LYMPH x10^3 (test code = 731-0) 0.80 10*3/uL 1.09-3.23 L MONO x10^3 (test code = 742-7) 0.90 10*3/uL 0.36-1.02 EOS x10^3 (test code = 711-2) 0.06-0.53 L BASO x10^3 (test code = 704-7) 0.01-0.09 Lab Interpretation (test code = 56142-5) Abnormal [facility] Metabolic Panel (NA, K, CL, CO2, GLUCOSE, BUN, CREATININE, CA)2023-02-03 10:51:24* Test Item Value Reference Range Interpretation Comme nts NA (test code = 6241855698) 140 mmol/L 135-145 K (test code = 5011291013) 4.0 mmol/L 3.5-5.0 CL (test code = 8132158301) 107 mmol/L 98-108 CO2 TOTAL (test code = 4298111479) 24 mmol/L 23-31 AGAP (test code = 1584402927) 9 2-16 BUN (test code = 7206407798) 24 mg/dL 7-23 H GLUCOSE (test code = 4313974026) 125 mg/dL 70-110 H CREATININE (test code = 4748529383) 0.69 mg/dL 0.60-1.25 CALCIUM (test code = 6275708739) 8.6 mg/dL 8.6-10.6 eGFR (test code = 75892-4) 95.3 mL/min/1.73m2 CKD-EPI eGFR (2020). Assuming creatinine has been stable day-to-day for at least three months, the eGFR indicates Category G1 (>= 90 mL/min/1.73 m2) Lab Interpretation (test code = 28481-2) [id number] 17:27:20* Test Item Value Reference Range Interpretation Comme nts NA (test code = 0671206734) 139 mmol/L 135-145 K (test code = 6480795277) 3.8 mmol/L 3.5-5.0 CL (test code = 9051275975) 106 mmol/L 98-108 CO2 TOTAL (test code = 4771738574) 24 mmol/L 23-31 AGAP (test code = 2190253425) 9 2-16 BUN (test code = 0281398275) 25 mg/dL 7-23 H GLUCOSE (test code = 7887594392) 112 mg/dL 70-110 H CREATININE (test code = 7325281972) 0.79 mg/dL 0.60-1.25 TOTAL BILI (test code = 5435982430) 0.3 mg/dL 0.1-1.1 CALCIUM (test code = 0681413724) 8.8 mg/dL 8.6-10.6 T PROTEIN (test code = 6365804946) 6.4 g/dL 6.3-8.2 ALBUMIN (test code = 6560277617) 3.2 g/dL 3.5-5.0 L ALK PHOS (test code = 3228973184) 65 U/L 34-122 ALTv (test code = 1742-6) 25 U/L 5-50 AST(SGOT) (test code = 3995242321) 30 U/L 13-40 eGFR (test code = 44335-7) 95.1 mL/min/1.73m2 STEPHANIE (test code = STEPHANIE) Association of Glomerular Filtration Rate (GFR) and Staging of Kidney Disease* + --+ --+ ------+| GFR (mL/min/1.73 m2) ?| With Kidney Damage ?| ?Without Kidney Damage+ --------+ --------+ +| ?>90 ?| ?Stage one ?| ? Normal ?+ ---+ ---+ -------+| ?60-89 ?| ?Stage two ?| ? Decreased GFR ? + --+ --+ ------+| ?30-59 ?| ?Stage three ?| ? Stage three ? + --+ --+ ------+| ?15-29 ?| ?Stage four ? | ? Stage four ?+ ---+ ---+ -------+| ?<15 (or dialysis) ? ?| ?Stage five ? | ? Stage five ?+ ---+ ---+ -------+ *Each stage assumes the associated GFR level has been in effect for at least three months. ?Stages 1 to 5, with or without kidney disease, indicate chronic kidney disease. Notes: Determination of stages one and two (with eGFR >59mL/min/1.73 m2) requires estimation of kidney damage for at least three months as defined by structural or functional abnormalities of the kidney, manifested by either:Pathological abnormalities or Markers of kidney damage (including abnormalities in the composition of the blood or urine or abnormalities in imaging tests). Lab Interpretation (test code = 58398-4) Abnormal [facility] WITH [id number] 17:15:14* Test Item Value Reference Range Interpretation Comme nts WBC (test code = 6690-2) 4.49 See_Comment [Automated [employer]] The system which generated this result transmitted reference range: 4.20 - 10.70 10*3/?L. The reference range was not used to interpret this result as normal/abnormal. RBC (test code = 789-8) 4.00 See_Comment L [Automated messa ge] The system which generated this result transmitted reference range: 4.26 - 5.52 10*6/?L. The reference range was not used to interpret this result as normal/abnormal. HGB (test code = 718-7) 11.9 g/dL 12.2-16.4 L HCT (test code = 4544-3) 36.2 % 38.4-49.3 L MCV (test code = 787-2) 90.5 fL 81.7-95.6 MCH (test code = 785-6) 29.8 pg 26.1-32.7 MCHC (test code = 786-4) 32.9 g/dL 31.2-35.0 RDW-SD (test code = 06247-6) 49.1 fL 38.5-51.6 RDW-CV (test code = 788-0) 14.6 % 12.1-15.4 PLT (test code = 777-3) 198 See_Comment [Automated messa ge] The system which generated this result transmitted reference range: 150 - 328 10*3/?L. The reference range was not used to interpret this result as normal/abnormal. MPV (test code = 93953-0) 8.4 fL 9.8-13.0 L NRBC/100 WBC (test code = 2757697395) 0.0 See_Comment [Automated Nov[employer] ssage] The system which generated this result transmitted reference range: 0.0 - 10.0 /100 WBCs. The reference range was not used to interpret this result as normal/abnormal. NRBC x10^3 (test code = 9217124441) See_Comment [Automated messa ge] The system which generated this result transmitted reference range: 10*3/?L. The reference range was not used to interpret this result as normal/abnormal. GRAN MAT (NEUT) % (test code = 770-8) 68.4 % IMM GRAN % (test code = 1178289793) 0.20 % LYMPH % (test code = 736-9) 11.8 % MONO % (test code = 5905-5) 19.4 % EOS % (test code = 713-8) 0.0 % BASO % (test code = 706-2) 0.2 % GRAN MAT x10^3(ANC) (test code = 9948555916) 3.07 10*3/uL 1.99-6.95 IMM GRAN x10^3 (test code = 0332240525) 0.00-0.06 LYMPH x10^3 (test code = 731-0) 0.53 10*3/uL 1.09-3.23 L MONO x10^3 (test code = 742-7) 0.87 10*3/uL 0.36-1.02 EOS x10^3 (test code = 711-2) 0.06-0.53 L BASO x10^3 (test code = 704-7) 0.01-0.09 Lab Interpretation (test code = 57000-9) [facility] [id number] 21:47:26* Test Item Value Reference Range Interpretation Comme nts LACTIC ACID (test code = 6380080906) 1.46 mmol/L 0.50-2.20 Lab Interpretation (test cod e = 18870-5) [facility] [id number] 21:42:21* Test Item Value Reference Range Interpretation Comme nts ESR (test code = 59133-7) 16 See_Comment H [Automated messa ge] The system which generated this result transmitted reference range: 0 - 10 mm/HR. The reference range was not used to interpret this result as normal/abnormal. Lab Interpretation (test code = 98967-8) [facility] (85802)2023-01-25 21:24:38* Test Item Value Reference Range Interpretation Comme nts NA (test code = 9984681945) 143 mmol/L 135-145 K (test code = 8731726215) 3.9 mmol/L 3.5-5.0 CL (test code = 5125241534) 105 mmol/L 98-108 CO2 TOTAL (test code = 7048481538) 29 mmol/L 23-31 AGAP (test code = 6007039567) 9 2-16 BUN (test code = 1601958781) 38 mg/dL 7-23 H GLUCOSE (test code = 3267448841) 100 mg/dL 70-110 CREATININE (test code = 5165881473) 0.81 mg/dL 0.60-1.25 TOTAL BILI (test code = 6687453226) 0.2 mg/dL 0.1-1.1 CALCIUM (test code = 6204650589) 9.5 mg/dL 8.6-10.6 T PROTEIN (test code = 9803303399) 6.8 g/dL 6.3-8.2 ALBUMIN (test code = 2595013028) 3.7 g/dL 3.5-5.0 ALK PHOS (test code = 9209566073) 81 U/L 34-122 ALTv (test code = 1742-6) 22 U/L 5-50 AST(SGOT) (test code = 2730095159) 26 U/L 13-40 eGFR (test code = 6047328090) 92.4 mL/min/1.73m2 STEPHANIE (test code = STEPHANIE) Association of Glomerular Filtration Rate (GFR) and Staging of Kidney Disease* + --+ --+ ------+| GFR (mL/min/1.73 m2) ?| With Kidney Damage ?| ?Without Kidney Damage+ --------+ --------+ +| ?>90 ?| ?Stage one ?| ? Normal ?+ ---+ ---+ -------+| ?60-89 ?| ?Stage two ?| ? Decreased GFR ? + --+ --+ ------+| ?30-59 ?| ?Stage three ?| ? Stage three ? + --+ --+ ------+| ?15-29 ?| ?Stage four ? | ? Stage four ?+ ---+ ---+ -------+| ?<15 (or dialysis) ? ?| ?Stage five ? | ? Stage five ?+ ---+ ---+ -------+ *Each stage assumes the associated GFR level has been in effect for at least three months. ?Stages 1 to 5, with or without kidney disease, indicate chronic kidney disease. Notes: Determination of stages one and two (with eGFR >59mL/min/1.73 m2) requires estimation of kidney damage for at least three months as defined by structural or functional abnormalities of the kidney, manifested by either:Pathological abnormalities or Markers of kidney damage (including abnormalities in the composition of the blood or urine or abnormalities in imaging tests). Lab Interpretation (test code = 20353-0) Abnormal [facility] WITH [id number] 20:59:14* Test Item Value Reference Range Interpretation Comme nts WBC (test code = 6690-2) 7.29 See_Comment [Automated [employer] ge] The system which generated this result transmitted reference range: 4.20 - 10.70 10*3/?L. The reference range was not used to interpret this result as normal/abnormal. RBC (test code = 789-8) 4.52 See_Comment [Automated [employer]] The system which generated this result transmitted reference range: 4.26 - 5.52 10*6/?L. The reference range was not used to interpret this result as normal/abnormal. HGB (test code = 718-7) 13.5 g/dL 12.2-16.4 HCT (test code = 4544-3) 42.1 % 38.4-49.3 MCV (test code = 787-2) 93.1 fL 81.7-95.6 MCH (test code = 785-6) 29.9 pg 26.1-32.7 MCHC (test code = 786-4) 32.1 g/dL 31.2-35.0 RDW-SD (test code = 60353-4) 49.1 fL 38.5-51.6 RDW-CV (test code = 788-0) 14.2 % 12.1-15.4 PLT (test code = 777-3) 202 See_Comment [Automated [employer]] The system which generated this result transmitted reference range: 150 - 328 10*3/?L. The reference range was not used to interpret this result as normal/abnormal. MPV (test code = 10639-9) 8.8 fL 9.8-13.0 L NRBC/100 WBC (test code = 7328650017) 0.0 See_Comment [Automated [employer]] The system which generated this result transmitted reference range: 0.0 - 10.0 /100 WBCs. The reference range was not used to interpret this result as normal/abnormal. NRBC x10^3 (test code = 6507851261) See_Comment [Automated messa ge] The system which generated this result transmitted reference range: 10*3/?L. The reference range was not used to interpret this result as normal/abnormal. GRAN MAT (NEUT) % (test code = 770-8) 72.5 % IMM GRAN % (test code = 3066603344) 0.30 % LYMPH % (test code = 736-9) 15.4 % MONO % (test code = 5905-5) 8.9 % EOS % (test code = 713-8) 2.6 % BASO % (test code = 706-2) 0.3 % GRAN MAT x10^3(ANC) (test code = 9673826468) 5.29 10*3/uL 1.99-6.95 IMM GRAN x10^3 (test code = 5492493202) 0.00-0.06 LYMPH x10^3 (test code = 731-0) 1.12 10*3/uL 1.09-3.23 MONO x10^3 (test code = 742-7) 0.65 10*3/uL 0.36-1.02 EOS x10^3 (test code = 711-2) 0.19 10*3/uL 0.06-0.53 BASO x10^3 (test code = 704-7) 0.01-0.09 Lab Interpretation (test code = 39540-5) [facility] [id number] 20:35:20* Test Item Value Reference Range Interpretation Comme nts TROPONIN I (test code = 9082082705) 0.006 ng/mL <=0.034 STEPHANIE (test code = STEPHANIE) Reference (Normal) Range (defined by the 99th percentile reference limit): <= 0.034 ng/mL Note: Cardiac troponin begins to rise 3-4 hours after the onset of ischemia. Repeat in 4-6 hours if the sample was drawn within 3-4 hours of the onset of the symptom and found normal. Diagnosis of myocardial injury is made with acute changes in cTn concentrations with at least one serial sample above the 99th percentile upper reference limit (URL), taken together with the patient's clinical presentation. Biotin has been reported to cause a negative bias, interpret results relative to patient's use of biotin. Lab Interpretation (test code = 81572-6) Normal [id number] 20:33:03* Test Item Value Reference Range Interpretation Comme nts NT-proBNP (test code = 57431-1) 129 pg/mL <=125 STEPHANIE (test code = STEPHANIE) Result Indeterminate-Consid er causes of NT-proBNP elevation other than Heart failure such as acute coronary syndrome, pulmonary embolism, pulmonary hypertension, sepsis, stroke, and renal dysfunction. Lab Interpretation (test code = 31644-5) [facility] ([id number])2023-01-20 20:23:37* Test Item Value Reference Range Interpretation Comme nts NA (test code = 7879383966) 142 mmol/L 135-145 K (test code = 5353301642) 4.8 mmol/L 3.5-5.0 CL (test code = 5889802590) 109 mmol/L 98-108 H CO2 TOTAL (test code = 1435552590) 26 mmol/L 23-31 AGAP (test code = 3696435687) 7 2-16 BUN (test code = 6635557533) 33 mg/dL 7-23 H GLUCOSE (test code = 3483764391) 123 mg/dL 70-110 H CREATININE (test code = 6001402974) 0.70 mg/dL 0.60-1.25 TOTAL BILI (test code = 6858284235) 0.5 mg/dL 0.1-1.1 CALCIUM (test code = 5882235125) 9.3 mg/dL 8.6-10.6 T PROTEIN (test code = 8414458587) 7.0 g/dL 6.3-8.2 ALBUMIN (test code = 7675415102) 3.8 g/dL 3.5-5.0 ALK PHOS (test code = 6549501396) 64 U/L 34-122 ALTv (test code = 1742-6) 22 U/L 5-50 AST(SGOT) (test code = 4284393778) 44 U/L 13-40 H eGFR (test code = 8773877982) 109.4 mL/min/1.73m2 STEPHANIE (test code = STEPHANIE) Association of Glomerular Filtration Rate (GFR) and Staging of Kidney Disease* + --+ --+ ------+| GFR (mL/min/1.73 m2) ?| With Kidney Damage ?| ?Without Kidney Damage+ --------+ --------+ +| ?>90 ?| ?Stage one ?| ? Normal ?+ ---+ ---+ -------+| ?60-89 ?| ?Stage two ?| ? Decreased GFR ? + --+ --+ ------+| ?30-59 ?| ?Stage three ?| ? Stage three ? + --+ --+ ------+| ?15-29 ?| ?Stage four ? | ? Stage four ?+ ---+ ---+ -------+| ?<15 (or dialysis) ? ?| ?Stage five ? | ? Stage five ?+ ---+ ---+ -------+ *Each stage assumes the associated GFR level has been in effect for at least three months. ?Stages 1 to 5, with or without kidney disease, indicate chronic kidney disease. Notes: Determination of stages one and two (with eGFR >59mL/min/1.73 m2) requires estimation of kidney damage for at least three months as defined by structural or functional abnormalities of the kidney, manifested by either:Pathological abnormalities or Markers of kidney damage (including abnormalities in the composition of the blood or urine or abnormalities in imaging tests). Lab Interpretation (test code = 18278-2) [facility] 20:23:37* Test Item Value Reference Range Interpretation Comme nts MAGNESIUM (test code = 3754306333) 2.2 mg/dL 1.7-2.4 Lab Interpretation (test cod e = 95184-1) [facility] WITH [id number] 20:10:16* Test Item Value Reference Range Interpretation Comme nts WBC (test code = 6690-2) 7.96 See_Comment [Automated [employer]] The system which generated this result transmitted reference range: 4.20 - 10.70 10*3/?L. The reference range was not used to interpret this result as normal/abnormal. RBC (test code = 789-8) 4.60 See_Comment [Automated [employer]] The system which generated this result transmitted reference range: 4.26 - 5.52 10*6/?L. The reference range was not used to interpret this result as normal/abnormal. HGB (test code = 718-7) 13.6 g/dL 12.2-16.4 HCT (test code = 4544-3) 41.7 % 38.4-49.3 MCV (test code = 787-2) 90.7 fL 81.7-95.6 MCH (test code = 785-6) 29.6 pg 26.1-32.7 MCHC (test code = 786-4) 32.6 g/dL 31.2-35.0 RDW-SD (test code = 07830-6) 47.1 fL 38.5-51.6 RDW-CV (test code = 788-0) 14.1 % 12.1-15.4 PLT (test code = 777-3) 221 See_Comment [Automated messa ge] The system which generated this result transmitted reference range: 150 - 328 10*3/?L. The reference range was not used to interpret this result as normal/abnormal. MPV (test code = 09935-3) 8.9 fL 9.8-13.0 L NRBC/100 WBC (test code = 7459570996) 0.0 See_Comment [Automated [employer]] The system which generated this result transmitted reference range: 0.0 - 10.0 /100 WBCs. The reference range was not used to interpret this result as normal/abnormal. NRBC x10^3 (test code = 2988709375) See_Comment [Automated [employer]] The system which generated this result transmitted reference range: 10*3/?L. The reference range was not used to interpret this result as normal/abnormal. GRAN MAT (NEUT) % (test code = 770-8) 69.6 % IMM GRAN % (test code = 5638179254) 0.30 % LYMPH % (test code = 736-9) 18.3 % MONO % (test code = 5905-5) 10.2 % EOS % (test code = 713-8) 1.3 % BASO % (test code = 706-2) 0.3 % GRAN MAT x10^3(ANC) (test code = 9018930338) 5.55 10*3/uL 1.99-6.95 IMM GRAN x10^3 (test code = 6947920577) 0.00-0.06 LYMPH x10^3 (test code = 731-0) 1.46 10*3/uL 1.09-3.23 MONO x10^3 (test code = 742-7) 0.81 10*3/uL 0.36-1.02 EOS x10^3 (test code = 711-2) 0.10 10*3/uL 0.06-0.53 BASO x10^3 (test code = 704-7) 0.01-0.09 Lab Interpretation (test code = 67882-1) [facility] ([id number])2022-11-29 23:35:53* Test Item Value Reference Range Interpretation Comme nts NA (test code = 8443400834) 137 mmol/L 135-145 K (test code = 8829663748) 4.4 mmol/L 3.5-5.0 CL (test code = 1244688785) 103 mmol/L 98-108 CO2 TOTAL (test code = 6953359960) 26 mmol/L 23-31 AGAP (test code = 2820521110) 8 2-16 BUN (test code = 3547531347) 30 mg/dL 7-23 H GLUCOSE (test code = 0673425770) 124 mg/dL 70-110 H CREATININE (test code = 9036189386) 0.69 mg/dL 0.60-1.25 TOTAL BILI (test code = 2040343620) 0.3 mg/dL 0.1-1.1 CALCIUM (test code = 8208479384) 9.3 mg/dL 8.6-10.6 T PROTEIN (test code = 0114260354) 6.5 g/dL 6.3-8.2 ALBUMIN (test code = 3606378868) 3.6 g/dL 3.5-5.0 ALK PHOS (test code = 0501631486) 78 U/L 34-122 ALTv (test code = 1742-6) 21 U/L 5-50 AST(SGOT) (test code = 2739892255) 25 U/L 13-40 eGFR (test code = 4059860875) 111.2 mL/min/1.73m2 STEPHANIE (test code = STEPHANIE) Association of Glomerular Filtration Rate (GFR) and Staging of Kidney Disease* + --+ --+ ------+| GFR (mL/min/1.73 m2) ?| With Kidney Damage ?| ?Without Kidney Damage+ --------+ --------+ +| ?>90 ?| ?Stage one ?| ? Normal ?+ ---+ ---+ -------+| ?60-89 ?| ?Stage two ?| ? Decreased GFR ? + --+ --+ ------+| ?30-59 ?| ?Stage three ?| ? Stage three ? + --+ --+ ------+| ?15-29 ?| ?Stage four ? | ? Stage four ?+ ---+ ---+ -------+| ?<15 (or dialysis) ? ?| ?Stage five ? | ? Stage five ?+ ---+ ---+ -------+ *Each stage assumes the associated GFR level has been in effect for at least three months. ?Stages 1 to 5, with or without kidney disease, indicate chronic kidney disease. Notes: Determination of stages one and two (with eGFR >59mL/min/1.73 m2) requires estimation of kidney damage for at least three months as defined by structural or functional abnormalities of the kidney, manifested by either:Pathological abnormalities or Markers of kidney damage (including abnormalities in the composition of the blood or urine or abnormalities in imaging tests). Lab Interpretation (test code = 40697-4) Abnormal [facility] WITH [id number] 23:22:49* Test Item Value Reference Range Interpretation Comme nts WBC (test code = 6690-2) 5.98 See_Comment [Automated [employer]] The system which generated this result transmitted reference range: 4.20 - 10.70 10*3/?L. The reference range was not used to interpret this result as normal/abnormal. RBC (test code = 789-8) 4.09 See_Comment L [Automated [employer]] The system which generated this result transmitted reference range: 4.26 - 5.52 10*6/?L. The reference range was not used to interpret this result as normal/abnormal. HGB (test code = 718-7) 12.4 g/dL 12.2-16.4 HCT (test code = 4544-3) 36.3 % 38.4-49.3 L MCV (test code = 787-2) 88.8 fL 81.7-95.6 MCH (test code = 785-6) 30.3 pg 26.1-32.7 MCHC (test code = 786-4) 34.2 g/dL 31.2-35.0 RDW-SD (test code = 35418-2) 45.1 fL 38.5-51.6 RDW-CV (test code = 788-0) 13.9 % 12.1-15.4 PLT (test code = 777-3) 210 See_Comment [Automated [employer]] The system which generated this result transmitted reference range: 150 - 328 10*3/?L. The reference range was not used to interpret this result as normal/abnormal. MPV (test code = 47111-9) 8.4 fL 9.8-13.0 L NRBC/100 WBC (test code = 2374090394) 0.0 See_Comment [Automated [employer]] The system which generated this result transmitted reference range: 0.0 - 10.0 /100 WBCs. The reference range was not used to interpret this result as normal/abnormal. NRBC x10^3 (test code = 1512010369) See_Comment [Automated [employer]] The system which generated this result transmitted reference range: 10*3/?L. The reference range was not used to interpret this result as normal/abnormal. GRAN MAT (NEUT) % (test code = 770-8) 68.8 % IMM GRAN % (test code = 5384529924) 0.20 % LYMPH % (test code = 736-9) 18.6 % MONO % (test code = 5905-5) 8.7 % EOS % (test code = 713-8) 3.0 % BASO % (test code = 706-2) 0.7 % GRAN MAT x10^3(ANC) (test code = 8138328186) 4.12 10*3/uL 1.99-6.95 IMM GRAN x10^3 (test code = 8449090661) 0.00-0.06 LYMPH x10^3 (test code = 731-0) 1.11 10*3/uL 1.09-3.23 MONO x10^3 (test code = 742-7) 0.52 10*3/uL 0.36-1.02 EOS x10^3 (test code = 711-2) 0.18 10*3/uL 0.06-0.53 BASO x10^3 (test code = 704-7) 0.04 10*3/uL 0.01-0.09 Lab Interpretation (test code = 50366-2) [facility] ([id number])2022-11-26 21:19:14* Test Item Value Reference Range Interpretation Comme nts NA (test code = 1965417643) 135 mmol/L 135-145 K (test code = 8759171182) 4.1 mmol/L 3.5-5.0 CL (test code = 2162500638) 102 mmol/L 98-108 CO2 TOTAL (test code = 4366267393) 27 mmol/L 23-31 AGAP (test code = 9152176543) 6 2-16 BUN (test code = 6401157830) 23 mg/dL 7-23 GLUCOSE (test code = 7091928022) 97 mg/dL 70-110 CREATININE (test code = 1280150609) 0.54 mg/dL 0.60-1.25 L TOTAL BILI (test code = 2785702197) 0.4 mg/dL 0.1-1.1 CALCIUM (test code = 9056149329) 8.9 mg/dL 8.6-10.6 T PROTEIN (test code = 3353487711) 6.5 g/dL 6.3-8.2 ALBUMIN (test code = 7559266611) 3.6 g/dL 3.5-5.0 ALK PHOS (test code = 1678595793) 70 U/L 34-122 ALTv (test code = 1742-6) 20 U/L 5-50 AST(SGOT) (test code = 2911952369) 36 U/L 13-40 eGFR (test code = 6175215510) 147.5 mL/min/1.73m2 STEPHANIE (test code = STEPHANIE) Association of Glomerular Filtration Rate (GFR) and Staging of Kidney Disease* + --+ --+ ------+| GFR (mL/min/1.73 m2) ?| With Kidney Damage ?| ?Without Kidney Damage+ --------+ --------+ +| ?>90 ?| ?Stage one ?| ? Normal ?+ ---+ ---+ -------+| ?60-89 ?| ?Stage two ?| ? Decreased GFR ? + --+ --+ ------+| ?30-59 ?| ?Stage three ?| ? Stage three ? + --+ --+ ------+| ?15-29 ?| ?Stage four ? | ? Stage four ?+ ---+ ---+ -------+| ?<15 (or dialysis) ? ?| ?Stage five ? | ? Stage five ?+ ---+ ---+ -------+ *Each stage assumes the associated GFR level has been in effect for at least three months. ?Stages 1 to 5, with or without kidney disease, indicate chronic kidney disease. Notes: Determination of stages one and two (with eGFR >59mL/min/1.73 m2) requires estimation of kidney damage for at least three months as defined by structural or functional abnormalities of the kidney, manifested by either:Pathological abnormalities or Markers of kidney damage (including abnormalities in the composition of the blood or urine or abnormalities in imaging tests). Lab Interpretation (test code = 32491-7) Abnormal [facility] WITH [id number] 20:32:47* Test Item Value Reference Range Interpretation Comme nts WBC (test code = 6690-2) 9.43 See_Comment [Automated [employer]] The system which generated this result transmitted reference range: 4.20 - 10.70 10*3/?L. The reference range was not used to interpret this result as normal/abnormal. RBC (test code = 789-8) 4.13 See_Comment L [Automated [employer]] The system which generated this result transmitted reference range: 4.26 - 5.52 10*6/?L. The reference range was not used to interpret this result as normal/abnormal. HGB (test code = 718-7) 12.4 g/dL 12.2-16.4 HCT (test code = 4544-3) 36.7 % 38.4-49.3 L MCV (test code = 787-2) 88.9 fL 81.7-95.6 MCH (test code = 785-6) 30.0 pg 26.1-32.7 MCHC (test code = 786-4) 33.8 g/dL 31.2-35.0 RDW-SD (test code = 67988-3) 45.9 fL 38.5-51.6 RDW-CV (test code = 788-0) 14.0 % 12.1-15.4 PLT (test code = 777-3) 171 See_Comment [Automated messa ge] The system which generated this result transmitted reference range: 150 - 328 10*3/?L. The reference range was not used to interpret this result as normal/abnormal. MPV (test code = 31692-8) 8.5 fL 9.8-13.0 L NRBC/100 WBC (test code = 4258045816) 0.0 See_Comment [Automated [employer]] The system which generated this result transmitted reference range: 0.0 - 10.0 /100 WBCs. The reference range was not used to interpret this result as normal/abnormal. NRBC x10^3 (test code = 6660596904) See_Comment [Automated messa ge] The system which generated this result transmitted reference range: 10*3/?L. The reference range was not used to interpret this result as normal/abnormal. GRAN MAT (NEUT) % (test code = 770-8) 79.4 % IMM GRAN % (test code = 2849430025) 0.20 % LYMPH % (test code = 736-9) 9.1 % MONO % (test code = 5905-5) 8.4 % EOS % (test code = 713-8) 2.7 % BASO % (test code = 706-2) 0.2 % GRAN MAT x10^3(ANC) (test code = 7658244721) 7.49 10*3/uL 1.99-6.95 H IMM GRAN x10^3 (test code = 3577957707) 0.00-0.06 LYMPH x10^3 (test code = 731-0) 0.86 10*3/uL 1.09-3.23 L MONO x10^3 (test code = 742-7) 0.79 10*3/uL 0.36-1.02 EOS x10^3 (test code = 711-2) 0.25 10*3/uL 0.06-0.53 BASO x10^3 (test code = 704-7) 0.01-0.09 Lab Interpretation (test code = 96267-2) Abnormal [facility] METABOLIC PANEL (NA, K, CL, CO2, GLUCOSE, BUN, CREATININE, CA)2022-10-30 09:42:32* Test Item Value Reference Range Interpretation Comme nts NA (test code = 3288483341) 135 mmol/L 135-145 K (test code = 8299077361) 4.3 mmol/L 3.5-5.0 CL (test code = 5881325719) 105 mmol/L 98-108 CO2 TOTAL (test code = 9480256846) 25 mmol/L 23-31 AGAP (test code = 5905981707) 5 2-16 BUN (test code = 3763562221) 12 mg/dL 7-23 GLUCOSE (test code = 7820953685) 104 mg/dL 70-110 CREATININE (test code = 2648779640) 0.59 mg/dL 0.60-1.25 L CALCIUM (test code = 1028551987) 8.8 mg/dL 8.6-10.6 eGFR (test code = 1634418329) 133.2 mL/min/1.73m2 STEPHANIE (test code = STEPHANIE) Association of Glomerular Filtration Rate (GFR) and Staging of Kidney Disease* + --+ --+ ------+| GFR (mL/min/1.73 m2) ?| With Kidney Damage ?| ?Without Kidney Damage+ --------+ --------+ +| ?>90 ?| ?Stage one ?| ? Normal ?+ ---+ ---+ -------+| ?60-89 ?| ?Stage two ?| ? Decreased GFR ? + --+ --+ ------+| ?30-59 ?| ?Stage three ?| ? Stage three ? + --+ --+ ------+| ?15-29 ?| ?Stage four ? | ? Stage four ?+ ---+ ---+ -------+| ?<15 (or dialysis) ? ?| ?Stage five ? | ? Stage five ?+ ---+ ---+ -------+ *Each stage assumes the associated GFR level has been in effect for at least three months. ?Stages 1 to 5, with or without kidney disease, indicate chronic kidney disease. Notes: Determination of stages one and two (with eGFR >59mL/min/1.73 m2) requires estimation of kidney damage for at least three months as defined by structural or functional abnormalities of the kidney, manifested by either:Pathological abnormalities or Markers of kidney damage (including abnormalities in the composition of the blood or urine or abnormalities in imaging tests). Lab Interpretation (test code = 21364-5) [facility] 09:42:32* Test Item Value Reference Range Interpretation Comme nts MAGNESIUM (test code = 4995600461) 2.0 mg/dL 1.7-2.4 Lab Interpretation (test cod e = 18979-9) Normal [facility] WITH [id number] 09:34:52* Test Item Value Reference Range Interpretation Comme nts WBC (test code = 6690-2) 5.97 See_Comment [Automated [employer]] The system which generated this result transmitted reference range: 4.20 - 10.70 10*3/?L. The reference range was not used to interpret this result as normal/abnormal. RBC (test code = 789-8) 3.81 See_Comment L [Automated [employer]] The system which generated this result transmitted reference range: 4.26 - 5.52 10*6/?L. The reference range was not used to interpret this result as normal/abnormal. HGB (test code = 718-7) 11.3 g/dL 12.2-16.4 L HCT (test code = 4544-3) 34.0 % 38.4-49.3 L MCV (test code = 787-2) 89.2 fL 81.7-95.6 MCH (test code = 785-6) 29.7 pg 26.1-32.7 MCHC (test code = 786-4) 33.2 g/dL 31.2-35.0 RDW-SD (test code = 40870-8) 44.7 fL 38.5-51.6 RDW-CV (test code = 788-0) 13.5 % 12.1-15.4 PLT (test code = 777-3) 207 See_Comment [Automated messa ge] The system which generated this result transmitted reference range: 150 - 328 10*3/?L. The reference range was not used to interpret this result as normal/abnormal. MPV (test code = 60006-2) 8.4 fL 9.8-13.0 L NRBC/100 WBC (test code = 8156476521) 0.0 See_Comment [Automated me ssage] The system which generated this result transmitted reference range: 0.0 - 10.0 /100 WBCs. The reference range was not used to interpret this result as normal/abnormal. NRBC x10^3 (test code = 7311357551) See_Comment [Automated messa ge] The system which generated this result transmitted reference range: 10*3/?L. The reference range was not used to interpret this result as normal/abnormal. GRAN MAT (NEUT) % (test code = 770-8) 69.1 % IMM GRAN % (test code = 4238308953) 0.20 % LYMPH % (test code = 736-9) 17.3 % MONO % (test code = 5905-5) 9.7 % EOS % (test code = 713-8) 3.2 % BASO % (test code = 706-2) 0.5 % GRAN MAT x10^3(ANC) (test code = 8316596879) 4.13 10*3/uL 1.99-6.95 IMM GRAN x10^3 (test code = 2581618139) 0.00-0.06 LYMPH x10^3 (test code = 731-0) 1.03 10*3/uL 1.09-3.23 L MONO x10^3 (test code = 742-7) 0.58 10*3/uL 0.36-1.02 EOS x10^3 (test code = 711-2) 0.19 10*3/uL 0.06-0.53 BASO x10^3 (test code = 704-7) 0.03 10*3/uL 0.01-0.09 Lab Interpretation (test code = 67592-0) Abnormal [facility] GLUCOSE (AUTOMATED)2022-10-29 13:19:23* Test Item Value Reference Range Interpretation Comme nts POCT GLU (test code = 7086342678) 99 mg/dL 70-110 Lab Interpretation (test cod e = 31634-7) Normal [facility] METABOLIC PANEL (NA, K, CL, CO2, GLUCOSE, BUN, CREATININE, CA)2022-10-29 08:19:42* Test Item Value Reference Range Interpretation Comme nts NA (test code = 7073064765) 132 mmol/L 135-145 L K (test code = 6249793027) 4.8 mmol/L 3.5-5.0 CL (test code = 2989860278) 102 mmol/L 98-108 CO2 TOTAL (test code = 8224659246) 25 mmol/L 23-31 AGAP (test code = 2221891080) 5 2-16 BUN (test code = 9952877599) 18 mg/dL 7-23 GLUCOSE (test code = 9559736748) 109 mg/dL 70-110 CREATININE (test code = 8588506800) 0.60 mg/dL 0.60-1.25 CALCIUM (test code = 3395012795) 8.8 mg/dL 8.6-10.6 eGFR (test code = 8120100594) 130.6 mL/min/1.73m2 STEPHANIE (test code = STEPHANIE) Association of Glomerular Filtration Rate (GFR) and Staging of Kidney Disease* + --+ --+ ------+| GFR (mL/min/1.73 m2) ?| With Kidney Damage ?| ?Without Kidney Damage+ --------+ --------+ +| ?>90 ?| ?Stage one ?| ? Normal ?+ ---+ ---+ -------+| ?60-89 ?| ?Stage two ?| ? Decreased GFR ? + --+ --+ ------+| ?30-59 ?| ?Stage three ?| ? Stage three ? + --+ --+ ------+| ?15-29 ?| ?Stage four ? | ? Stage four ?+ ---+ ---+ -------+| ?<15 (or dialysis) ? ?| ?Stage five ? | ? Stage five ?+ ---+ ---+ -------+ *Each stage assumes the associated GFR level has been in effect for at least three months. ?Stages 1 to 5, with or without kidney disease, indicate chronic kidney disease. Notes: Determination of stages one and two (with eGFR >59mL/min/1.73 m2) requires estimation of kidney damage for at least three months as defined by structural or functional abnormalities of the kidney, manifested by either:Pathological abnormalities or Markers of kidney damage (including abnormalities in the composition of the blood or urine or abnormalities in imaging tests). Lab Interpretation (test code = 50123-0) [facility] 08:19:42* Test Item Value Reference Range Interpretation Comme nts MAGNESIUM (test code = 2574046131) 1.9 mg/dL 1.7-2.4 Lab Interpretation (test cod e = 73469-4) [facility] [id number] 08:00:22* Test Item Value Reference Range Interpretation Comme nts WBC (test code = 6690-2) 8.45 See_Comment [Automated [employer]] The system which generated this result transmitted reference range: 4.20 - 10.70 10*3/?L. The reference range was not used to interpret this result as normal/abnormal. RBC (test code = 789-8) 3.98 See_Comment L [Automated RadMit] The system which generated this result transmitted reference range: 4.26 - 5.52 10*6/?L. The reference range was not used to interpret this result as normal/abnormal. HGB (test code = 718-7) 11.9 g/dL 12.2-16.4 L HCT (test code = 4544-3) 35.2 % 38.4-49.3 L MCV (test code = 787-2) 88.4 fL 81.7-95.6 MCH (test code = 785-6) 29.9 pg 26.1-32.7 MCHC (test code = 786-4) 33.8 g/dL 31.2-35.0 RDW-SD (test code = 36770-3) 44.5 fL 38.5-51.6 RDW-CV (test code = 788-0) 13.6 % 12.1-15.4 PLT (test code = 777-3) 195 See_Comment [Automated messa ge] The system which generated this result transmitted reference range: 150 - 328 10*3/?L. The reference range was not used to interpret this result as normal/abnormal. MPV (test code = 77416-6) 8.7 fL 9.8-13.0 L NRBC/100 WBC (test code = 3629287995) 0.0 See_Comment [Automated me ssage] The system which generated this result transmitted reference range: 0.0 - 10.0 /100 WBCs. The reference range was not used to interpret this result as normal/abnormal. NRBC x10^3 (test code = 7679612208) See_Comment [Automated messa ge] The system which generated this result transmitted reference range: 10*3/?L. The reference range was not used to interpret this result as normal/abnormal. GRAN MAT (NEUT) % (test code = 770-8) 75.3 % IMM GRAN % (test code = 2737403729) 0.20 % LYMPH % (test code = 736-9) 15.1 % MONO % (test code = 5905-5) 8.5 % EOS % (test code = 713-8) 0.7 % BASO % (test code = 706-2) 0.2 % GRAN MAT x10^3(ANC) (test code = 6117041084) 6.35 10*3/uL 1.99-6.95 IMM GRAN x10^3 (test code = 6664964468) 0.00-0.06 LYMPH x10^3 (test code = 731-0) 1.28 10*3/uL 1.09-3.23 MONO x10^3 (test code = 742-7) 0.72 10*3/uL 0.36-1.02 EOS x10^3 (test code = 711-2) 0.06 10*3/uL 0.06-0.53 BASO x10^3 (test code = 704-7) 0.01-0.09 Lab Interpretation (test code = 14202-1) Abnormal [facility] GLUCOSE (AUTOMATED)2022-10-29 02:05:51* Test Item Value Reference Range Interpretation Comme nts POCT GLU (test code = 9957505198) 162 mg/dL 70-110 H Lab Interpretation (test cod e = 23007-2) [facility] 21:27:56* Test Item Value Reference Range Interpretation Comme nts POCT GLU (test code = 6132968512) 104 mg/dL 70-110 Lab Interpretation (test cod e = 21471-7) [facility] 20:41:29* Test Item Value Reference Range Interpretation Comme nts Procalcitonin (test code = 2588560388) 0.12 ng/mL <=0.07 H STEPHANIE (test code = STEPHANIE) INTERPRETATION OF PROCALCITONIN RESULTS IN ADULTS >= 18 YEARS OF AGE Initiation and discontinuation of antibiotics on patients with suspected or confirmed Lower Respiratory Tract Infection in Adults >= 18 years of age. + +-------- --------+ + -----+|Procalcitonin |Interpretation ?|Antibiotic ? ? |Considerations ? |ng/mL ? | ?|recommendation | ? + +-------- --------+ + -----+| <0.1 ? | Bacterial ? ? ?| Strongly ? ? ?| ? | ?| infection very | discouraged ? | Overruling: ? | ?| unlikely ? ? ? | ? | ? Clinically unstable ? ? ? + +-------- --------+ + ? High risk for adverse ? ? | <0.25 ?| Bacterial ? ? ?| Discouraged ? | ? outcome ? | ?| infection ? ? ?| ? | ? SEE IMPORTANT NOTE ?| ?| unlikely ? ? ? | ? | ? + +-------- --------+ + -----+| >=0.25 ? ? ? | Bacterial ? ? ?| Encouraged ? ?| ? | ?| infection ? ? ?| ? | ? | ?| likely ? | ? | Consider treatment failure ?+ +------- ---------+ -+ if levels does not decrease | >0.5 ? | Bacterial ? ? ?| Strongly ? ? ?| appropriately ? | ?| infection very | encouraged ? ?| ? | ?| likely ? | ? | ? + +-------- --------+ + -----+ Discontinuation of antibiotics in high-acuity patients with suspected or confirmed sepsis in Adults >= 18 years of age. + +-------- --------+ + -----+|Procalcitonin |Interpretation ?|Antibiotic ? ? |Considerations ? |ng/mL ? | ?|recommendation | ? + +-------- --------+ + -----+| <0.25 ?| Bacterial ? ? ?| Strongly ? ? ?| ? | ?| infection very | discouraged ? | Overruling: ? | ?| unlikely ? ? ? | ? | ? Clinically unstable ? ? ? + +-------- --------+ + ? High risk for adverse ? ? | <0.5 or drop | Bacterial ? ? ?| Discouraged ? | ? outcome ? | >80% from ? ?| infection ? ? ?| ? | ? SEE IMPORTANT NOTE ?| highest PCT ?| unlikely ? ? ? | ? | ? | level ?| ?| ? | ? + +-------- --------+ + -----+| >=0.5 ?| Bacterial ? ? ?| Encouraged ? ?| ? | ?| infection ? ? ?| ? | ? | ?| likely ? | ? | Consider treatment failure ?+ +------- ---------+ -+ if levels does not decrease | >1.0 ? | Bacterial ? ? ?| Strongly ? ? ?| appropriately ? | ?| infection very | encouraged ? ?| ? | ?| likely ? | ? | ? + +-------- --------+ + -----+ Percentage of drop of Procalcitonin calculation for Discontinuation of antibiotics in high-acuity patients with suspected or confirmed sepsis in Adults >= 18 years of age. ? Procalcitonin highest{}-Procalcitonin current{}Delta Procalcitonin = x100% ? Procalcitonin current {} IMPORTANT NOTE: Procalcitonin may be elevated without bacterial infection by physiologic stress related to trauma, guidry, chronic dialysis, metastatic cancer, surgery in the past seven days, malaria, some fungal infections, and some forms of vasculitis. The interpretation algorithm may not apply to patients with immunosuppression (equivalent of >10 mg of prednisone daily), HIV with CD4 cell count < 350 cells/mm3, active malignancy on systemic chemotherapy, solid organ transplant or hematopoietic stem cell transplantation, or hospital acquired pneumonia. Additionally, some clinical trials of procalcitonin have excluded patients with shock requiring vasopressor use, acute respiratory failure requiring mechanical ventilation, or those with known lung abscess/empyema. For further information please refer to:[email or web address] Lab Interpretation (test code = 57870-4) [facility] (NA, K, CL, CO2, GLUCOSE, BUN, CREATININE, CA)2022-10-28 17:04:09* Test Item Value Reference Range Interpretation Comme nts NA (test code = 6154577245) 133 mmol/L 135-145 L K (test code = 6772703670) 3.9 mmol/L 3.5-5.0 CL (test code = 2747659101) 103 mmol/L 98-108 CO2 TOTAL (test code = 6410768450) 26 mmol/L 23-31 AGAP (test code = 1284814006) 4 2-16 BUN (test code = 5118972872) 18 mg/dL 7-23 GLUCOSE (test code = 1849184656) 118 mg/dL 70-110 H CREATININE (test code = 7528759567) 0.59 mg/dL 0.60-1.25 L CALCIUM (test code = 5290705091) 8.5 mg/dL 8.6-10.6 L eGFR (test code = 4026578696) 133.2 mL/min/1.73m2 STEPHANIE (test code = STEPHANIE) Association of Glomerular Filtration Rate (GFR) and Staging of Kidney Disease* + --+ --+ ------+| GFR (mL/min/1.73 m2) ?| With Kidney Damage ?| ?Without Kidney Damage+ --------+ --------+ +| ?>90 ?| ?Stage one ?| ? Normal ?+ ---+ ---+ -------+| ?60-89 ?| ?Stage two ?| ? Decreased GFR ? + --+ --+ ------+| ?30-59 ?| ?Stage three ?| ? Stage three ? + --+ --+ ------+| ?15-29 ?| ?Stage four ? | ? Stage four ?+ ---+ ---+ -------+| ?<15 (or dialysis) ? ?| ?Stage five ? | ? Stage five ?+ ---+ ---+ -------+ *Each stage assumes the associated GFR level has been in effect for at least three months. ?Stages 1 to 5, with or without kidney disease, indicate chronic kidney disease. Notes: Determination of stages one and two (with eGFR >59mL/min/1.73 m2) requires estimation of kidney damage for at least three months as defined by structural or functional abnormalities of the kidney, manifested by either:Pathological abnormalities or Markers of kidney damage (including abnormalities in the composition of the blood or urine or abnormalities in imaging tests). Lab Interpretation (test code = 39989-3) [facility]22-[facility]-28 16:57:29* Test Item Value Reference Range Interpretation Comme [facility] POCT GLU (test code = 4178306282) 98 mg/dL 70-110 Lab Interpretation (test cod e = 43736-0) Normal [facility] WITH [id number] 16:01:20* Test Item Value Reference Range Interpretation Comme [facility] WBC (test code = 6690-2) 8.13 See_Comment [Automated messa Powervation] The system which generated this result transmitted reference range: 4.20 - 10.70 10*3/?L. The reference range was not used to interpret this result as normal/abnormal. RBC (test code = 789-8) 3.79 See_Comment L [Automated messa ge] The system which generated this result transmitted reference range: 4.26 - 5.52 10*6/?L. The reference range was not used to interpret this result as normal/abnormal. HGB (test code = 718-7) 11.5 g/dL 12.2-16.4 L HCT (test code = 4544-3) 33.9 % 38.4-49.3 L MCV (test code = 787-2) 89.4 fL 81.7-95.6 MCH (test code = 785-6) 30.3 pg 26.1-32.7 MCHC (test code = 786-4) 33.9 g/dL 31.2-35.0 RDW-SD (test code = 76756-4) 44.5 fL 38.5-51.6 RDW-CV (test code = 788-0) 13.6 % 12.1-15.4 PLT (test code = 777-3) 166 See_Comment [Automated [employer] ge] The system which generated this result transmitted reference range: 150 - 328 10*3/?L. The reference range was not used to interpret this result as normal/abnormal. MPV (test code = 65708-8) 8.6 fL 9.8-13.0 L NRBC/100 WBC (test code = 5271185729) 0.0 See_Comment [Automated Nov[employer] ssage] The system which generated this result transmitted reference range: 0.0 - 10.0 /100 WBCs. The reference range was not used to interpret this result as normal/abnormal. NRBC x10^3 (test code = 1812307304) See_Comment [Automated [employer] ge] The system which generated this result transmitted reference range: 10*3/?L. The reference range was not used to interpret this result as normal/abnormal. GRAN MAT (NEUT) % (test code = 770-8) 77.6 % IMM GRAN % (test code = 7729045418) 0.20 % LYMPH % (test code = 736-9) 11.1 % MONO % (test code = 5905-5) 10.8 % EOS % (test code = 713-8) 0.2 % BASO % (test code = 706-2) 0.1 % GRAN MAT x10^3(ANC) (test code = 3906357836) 6.30 10*3/uL 1.99-6.95 IMM GRAN x10^3 (test code = 1648127284) 0.00-0.06 LYMPH x10^3 (test code = 731-0) 0.90 10*3/uL 1.09-3.23 L MONO x10^3 (test code = 742-7) 0.88 10*3/uL 0.36-1.02 EOS x10^3 (test code = 711-2) 0.06-0.53 L BASO x10^3 (test code = 704-7) 0.01-0.09 Lab Interpretation (test code = 39303-1) [facility]normal [facility]av[facility] Whole [id number] 15:43:36* Test Item Value Reference Range Interpretation Comme nts LACTIC ACID (test code = 4642479082) 1.48 mmol/L 0.50-2.20 Lab Interpretation (test cod e = 39031-7) [facility]2022-10-28 13:55:42* Test Item Value Reference Range Interpretation Comme nts POCT GLU (test code = 0211222401) 108 mg/dL 70-110 Lab Interpretation (test cod e = 58639-3) [facility] Hospital[facility]cos[facility] Hemoglobin (A1C)2022-10-28 13:35:21* Test Item Value Reference Range Interpretation Comme nts HGB A1C (test code = 4548-4) 5.4 % 4.0-5.7 STEPHANIE (test code = STEPHANIE) Reference RangesNormal: <5.7%Prediabetes: 5.7 - 6.4%Diabetes: > 6.5% Lab Interpretation (test code = 64819-5) [facility] 12:48:08* Test Item Value Reference Range Interpretation Comme nts MAGNESIUM (test code = 4572728121) 2.0 mg/dL 1.7-2.4 Lab Interpretation (test cod e = 39342-2) Normal [facility] HospitalTR[facility]IN [id number] 04:32:06* Test Item Value Reference Range Interpretation Comme nts TROPONIN I (test code = 0546440105) 0.029 ng/mL <=0.034 STEPHANIE (test code = STEPHANIE) Reference (Normal) Range (defined by the 99th percentile reference limit): <= 0.034 ng/mL Note: Cardiac troponin begins to rise 3-4 hours after the onset of ischemia. Repeat in 4-6 hours if the sample was drawn within 3-4 hours of the onset of the symptom and found normal. Diagnosis of myocardial injury is made with acute changes in cTn concentrations with at least one serial sample above the 99th percentile upper reference limit (URL), taken together with the patient's clinical presentation. Biotin has been reported to cause a negative bias, interpret results relative to patient's use of biotin. Lab Interpretation (test code = 47792-6) Normal [facility]. METABOLIC PANEL (14945)2022-10-28 04:21:43* Test Item Value Reference Range Interpretation Comme nts NA (test code = 2845964709) 133 mmol/L 135-145 L K (test code = 0875146701) 4.2 mmol/L 3.5-5.0 CL (test code = 3427628761) 100 mmol/L 98-108 CO2 TOTAL (test code = 6832115705) 23 mmol/L 23-31 AGAP (test code = 6529549544) 10 2-16 BUN (test code = 7287199520) 24 mg/dL 7-23 H GLUCOSE (test code = 2801248737) 217 mg/dL 70-110 H CREATININE (test code = 4745336116) 0.79 mg/dL 0.60-1.25 TOTAL BILI (test code = 9706859607) 0.5 mg/dL 0.1-1.1 CALCIUM (test code = 8200746661) 8.6 mg/dL 8.6-10.6 T PROTEIN (test code = 1486858890) 6.6 g/dL 6.3-8.2 ALBUMIN (test code = 4579829230) 3.6 g/dL 3.5-5.0 ALK PHOS (test code = 5920967492) 76 U/L 34-122 ALTv (test code = 1742-6) 20 U/L 5-50 AST(SGOT) (test code = 1283366769) 31 U/L 13-40 eGFR (test code = 0116422628) 95.1 mL/min/1.73m2 STEPHANIE (test code = STEPHANIE) Association of Glomerular Filtration Rate (GFR) and Staging of Kidney Disease* + --+ --+ ------+| GFR (mL/min/1.73 m2) ?| With Kidney Damage ?| ?Without Kidney Damage+ --------+ --------+ +| ?>90 ?| ?Stage one ?| ? Normal ?+ ---+ ---+ -------+| ?60-89 ?| ?Stage two ?| ? Decreased GFR ? + --+ --+ ------+| ?30-59 ?| ?Stage three ?| ? Stage three ? + --+ --+ ------+| ?15-29 ?| ?Stage four ? | ? Stage four ?+ ---+ ---+ -------+| ?<15 (or dialysis) ? ?| ?Stage five ? | ? Stage five ?+ ---+ ---+ -------+ *Each stage assumes the associated GFR level has been in effect for at least three months. ?Stages 1 to 5, with or without kidney disease, indicate chronic kidney disease. Notes: Determination of stages one and two (with eGFR >59mL/min/1.73 m2) requires estimation of kidney damage for at least three months as defined by structural or functional abnormalities of the kidney, manifested by either:Pathological abnormalities or Markers of kidney damage (including abnormalities in the composition of the blood or urine or abnormalities in imaging tests). Lab Interpretation (test code = 36382-8) Abnormal [facility] WITH [id number] 03:55:19* Test Item Value Reference Range Interpretation Comme nts WBC (test code = 6690-2) 12.67 See_Comment H [Automated message] The system which generated this result transmitted reference range: 4.20 - 10.70 10*3/?L. The reference range was not used to interpret this result as normal/abnormal. RBC (test code = 789-8) 4.22 See_Comment L [Automated message] The system which generated this result transmitted reference range: 4.26 - 5.52 10*6/?L. The reference range was not used to interpret this result as normal/abnormal. HGB (test code = 718-7) 12.9 g/dL 12.2-16.4 HCT (test code = 4544-3) 38.0 % 38.4-49.3 L MCV (test code = 787-2) 90.0 fL 81.7-95.6 MCH (test code = 785-6) 30.6 pg 26.1-32.7 MCHC (test code = 786-4) 33.9 g/dL 31.2-35.0 RDW-SD (test code = 07205-3) 44.8 fL 38.5-51.6 RDW-CV (test code = 788-0) 13.6 % 12.1-15.4 PLT (test code = 777-3) 189 See_Comment [Automated message] The system which generated this result transmitted reference range: 150 - 328 10*3/?L. The reference range was not used to interpret this result as normal/abnormal. MPV (test code = 04543-5) 8.7 fL 9.8-13.0 L NRBC/100 WBC (test code = 1953586750) 0.0 See_Comment [Automated message] The system which generated this result transmitted reference range: 0.0 - 10.0 /100 WBCs. The reference range was not used to interpret this result as normal/abnormal. NRBC x10^3 (test code = 6991483735) See_Comment [Automated message] The system which generated this result transmitted reference range: 10*3/?L. The reference range was not used to interpret this result as normal/abnormal. GRAN MAT (NEUT) % (test code = 770-8) 83.5 % IMM GRAN % (test code = 5457290348) 0.60 % LYMPH % (test code = 736-9) 6.0 % MONO % (test code = 5905-5) 9.6 % EOS % (test code = 713-8) 0.1 % BASO % (test code = 706-2) 0.2 % GRAN MAT x10^3(ANC) (test code = 8240703224) 10.59 10*3/uL 1.99-6.95 H IMM GRAN x10^3 (test code = 7668931047) 0.08 10*3/uL 0.00-0.06 H LYMPH x10^3 (test code = 731-0) 0.76 10*3/uL 1.09-3.23 L MONO x10^3 (test code = 742-7) 1.21 10*3/uL 0.36-1.02 H EOS x10^3 (test code = 711-2) 0.06-0.53 L BASO x10^3 (test code = 704-7) 0.01-0.09 Lab Interpretation (test code = 43072-5) Abnormal [facility] CULTURE [id number] 03:02:22* Test Item Value Reference Range Interpretation Comme nts Blood Culture-Aerobic (test code = 63726-2) No organisms isolated No growth Previous preliminary verified result was Culture In Progress on 07/21/2022 at 0101 CDTPrevious preliminary verified result was No growth at 24 hours on 07/21/2022 at 2202 CDTPrevious preliminary verified result was No growth at 48 hours on 07/22/2022 at 2201 CDTPrevious preliminary verified result was No growth at 72 hours on 07/23/2022 at 2201 CDT Blood Culture-Anaerobic (test code = 44411-5) No organisms isolated No growth Previous preliminary verified result was Culture In Progress on 07/21/2022 at 0101 CDTPrevious preliminary verified result was No growth at 24 hours on 07/21/2022 at 2202 CDTPrevious preliminary verified result was No growth at 48 hours on 07/22/2022 at 2201 CDTPrevious preliminary verified result was No growth at 72 hours on 07/23/2022 at 2201 CDT Lab Interpretation (test code = 45337-0) Normal [facility] CULTURE [id number] 03:02:22* Test Item Value Reference Range Interpretation Comme nts Blood Culture-Aerobic (test code = 46959-2) No organisms isolated No growth Previous preliminary verified result was Culture In Progress on 07/21/2022 at 0101 CDTPrevious preliminary verified result was No growth at 24 hours on 07/21/2022 at 2202 CDTPrevious preliminary verified result was No growth at 48 hours on 07/22/2022 at 2201 CDTPrevious preliminary verified result was No growth at 72 hours on 07/23/2022 at 2201 CDT Blood Culture-Anaerobic (test code = 45082-8) No organisms isolated No growth Previous preliminary verified result was Culture In Progress on 07/21/2022 at 0101 CDTPrevious preliminary verified result was No growth at 24 hours on 07/21/2022 at 2202 CDTPrevious preliminary verified result was No growth at 48 hours on 07/22/2022 at 2201 CDTPrevious preliminary verified result was No growth at 72 hours on 07/23/2022 at 2201 CDT Lab Interpretation (test code = 11662-5) [facility]OL[facility] (32084)2022-07-21 03:19:43* Test Item Value Reference Range Interpretation Comme nts NA (test code = 3081270108) 137 mmol/L 135-145 K (test code = 0420205754) 4.6 mmol/L 3.5-5.0 CL (test code = 2182859458) 102 mmol/L 98-108 CO2 TOTAL (test code = 5479646257) 25 mmol/L 23-31 AGAP (test code = 9197661034) 10 2-16 BUN (test code = 3670155601) 16 mg/dL 7-23 GLUCOSE (test code = 7097807224) 147 mg/dL 70-110 H CREATININE (test code = 7244120081) 1.06 mg/dL 0.60-1.25 TOTAL BILI (test code = 4690314620) 0.4 mg/dL 0.1-1.1 CALCIUM (test code = 7423475029) 9.3 mg/dL 8.6-10.6 T PROTEIN (test code = 8336262816) 6.3 g/dL 6.3-8.2 ALBUMIN (test code = 2846568941) 3.7 g/dL 3.5-5.0 ALK PHOS (test code = 7862947009) 85 U/L 34-122 ALTv (test code = 1742-6) 19 U/L 5-50 AST(SGOT) (test code = 4246191052) 23 U/L 13-40 eGFR (test code = 6826509694) 67.7 mL/min/1.73m2 STEPHANIE (test code = STEPHANIE) Association of Glomerular Filtration Rate (GFR) and Staging of Kidney Disease* + --+ --+ ------+| GFR (mL/min/1.73 m2) ?| With Kidney Damage ?| ?Without Kidney Damage+ --------+ --------+ +| ?>90 ?| ?Stage one ?| ? Normal ?+ ---+ ---+ -------+| ?60-89 ?| ?Stage two ?| ? Decreased GFR ? + --+ --+ ------+| ?30-59 ?| ?Stage three ?| ? Stage three ? + --+ --+ ------+| ?15-29 ?| ?Stage four ? | ? Stage four ?+ ---+ ---+ -------+| ?<15 (or dialysis) ? ?| ?Stage five ? | ? Stage five ?+ ---+ ---+ -------+ *Each stage assumes the associated GFR level has been in effect for at least three months. ?Stages 1 to 5, with or without kidney disease, indicate chronic kidney disease. Notes: Determination of stages one and two (with eGFR >59mL/min/1.73 m2) requires estimation of kidney damage for at least three months as defined by structural or functional abnormalities of the kidney, manifested by either:Pathological abnormalities or Markers of kidney damage (including abnormalities in the composition of the blood or urine or abnormalities in imaging tests). Lab Interpretation (test code = 34660-1) [facility]normal [facility] [id number] 03:10:02* Test Item Value Reference Range Interpretation Comme nts ESR (test code = 56064-7) 20 See_Comment H [Automated [employer]] The system which generated this result transmitted reference range: 0 - 10 mm/HR. The reference range was not used to interpret this result as normal/abnormal. Lab Interpretation (test code = 80952-5) Abnormal [facility] WITH [id number] 02:50:23* Test Item Value Reference Range Interpretation Comme nts WBC (test code = 6690-2) 8.04 See_Comment [Automated [employer]] The system which generated this result transmitted reference range: 4.20 - 10.70 10*3/?L. The reference range was not used to interpret this result as normal/abnormal. RBC (test code = 789-8) 4.12 See_Comment L [Automated messa ge] The system which generated this result transmitted reference range: 4.26 - 5.52 10*6/?L. The reference range was not used to interpret this result as normal/abnormal. HGB (test code = 718-7) 12.6 g/dL 12.2-16.4 HCT (test code = 4544-3) 38.6 % 38.4-49.3 MCV (test code = 787-2) 93.7 fL 81.7-95.6 MCH (test code = 785-6) 30.6 pg 26.1-32.7 MCHC (test code = 786-4) 32.6 g/dL 31.2-35.0 RDW-SD (test code = 04094-9) 46.5 fL 38.5-51.6 RDW-CV (test code = 788-0) 13.5 % 12.1-15.4 PLT (test code = 777-3) 239 See_Comment [Automated messa ge] The system which generated this result transmitted reference range: 150 - 328 10*3/?L. The reference range was not used to interpret this result as normal/abnormal. MPV (test code = 30119-0) 8.6 fL 9.8-13.0 L NRBC/100 WBC (test code = 7163806402) 0.0 See_Comment [Automated [employer] ssage] The system which generated this result transmitted reference range: 0.0 - 10.0 /100 WBCs. The reference range was not used to interpret this result as normal/abnormal. NRBC x10^3 (test code = 9791575574) See_Comment [Automated messa ge] The system which generated this result transmitted reference range: 10*3/?L. The reference range was not used to interpret this result as normal/abnormal. GRAN MAT (NEUT) % (test code = 770-8) 79.8 % IMM GRAN % (test code = 0116800414) 0.50 % LYMPH % (test code = 736-9) 11.8 % MONO % (test code = 5905-5) 6.8 % EOS % (test code = 713-8) 0.7 % BASO % (test code = 706-2) 0.4 % GRAN MAT x10^3(ANC) (test code = 2600870643) 6.41 10*3/uL 1.99-6.95 IMM GRAN x10^3 (test code = 3472307572) 0.04 10*3/uL 0.00-0.06 LYMPH x10^3 (test code = 731-0) 0.95 10*3/uL 1.09-3.23 L MONO x10^3 (test code = 742-7) 0.55 10*3/uL 0.36-1.02 EOS x10^3 (test code = 711-2) 0.06 10*3/uL 0.06-0.53 BASO x10^3 (test code = 704-7) 0.03 10*3/uL 0.01-0.09 Lab Interpretation (test code = 96134-4) [facility] [id number] 21:13:33* Test Item Value Reference Range Interpretation Comme nts ESR (test code = 50374-9) 11 See_Comment H [Automated messa ge] The system which generated this result transmitted reference range: 0 - 10 mm/HR. The reference range was not used to interpret this result as normal/abnormal. Lab Interpretation (test code = 37274-9) [facility] (99167)2022-07-18 20:55:16* Test Item Value Reference Range Interpretation Comme nts NA (test code = 7121994316) 135 mmol/L 135-145 K (test code = 7683085133) 4.7 mmol/L 3.5-5.0 CL (test code = 2780303796) 103 mmol/L 98-108 CO2 TOTAL (test code = 8024816033) 23 mmol/L 23-31 AGAP (test code = 8549050370) 9 2-16 BUN (test code = 0890769516) 15 mg/dL 7-23 GLUCOSE (test code = 4016026582) 89 mg/dL 70-110 CREATININE (test code = 1820134926) 0.71 mg/dL 0.60-1.25 TOTAL BILI (test code = 2099666139) 0.5 mg/dL 0.1-1.1 CALCIUM (test code = 0947710076) 8.9 mg/dL 8.6-10.6 T PROTEIN (test code = 3346663446) 6.1 g/dL 6.3-8.2 L ALBUMIN (test code = 6151507630) 3.5 g/dL 3.5-5.0 ALK PHOS (test code = 1517628606) 82 U/L 34-122 ALTv (test code = 1742-6) 18 U/L 5-50 AST(SGOT) (test code = 3805116632) 24 U/L 13-40 eGFR (test code = 1125153796) 107.6 mL/min/1.73m2 STEPHANIE (test code = STEPHANIE) Association of Glomerular Filtration Rate (GFR) and Staging of Kidney Disease* + --+ --+ ------+| GFR (mL/min/1.73 m2) ?| With Kidney Damage ?| ?Without Kidney Damage+ --------+ --------+ +| ?>90 ?| ?Stage one ?| ? Normal ?+ ---+ ---+ -------+| ?60-89 ?| ?Stage two ?| ? Decreased GFR ? + --+ --+ ------+| ?30-59 ?| ?Stage three ?| ? Stage three ? + --+ --+ ------+| ?15-29 ?| ?Stage four ? | ? Stage four ?+ ---+ ---+ -------+| ?<15 (or dialysis) ? ?| ?Stage five ? | ? Stage five ?+ ---+ ---+ -------+ *Each stage assumes the associated GFR level has been in effect for at least three months. ?Stages 1 to 5, with or without kidney disease, indicate chronic kidney disease. Notes: Determination of stages one and two (with eGFR >59mL/min/1.73 m2) requires estimation of kidney damage for at least three months as defined by structural or functional abnormalities of the kidney, manifested by either:Pathological abnormalities or Markers of kidney damage (including abnormalities in the composition of the blood or urine or abnormalities in imaging tests). Lab Interpretation (test code = 38671-5) Abnormal [facility] WITH [id number] 20:37:13* Test Item Value Reference Range Interpretation Comme nts WBC (test code = 6690-2) 6.41 See_Comment [Automated [employer] ge] The system which generated this result transmitted reference range: 4.20 - 10.70 10*3/?L. The reference range was not used to interpret this result as normal/abnormal. RBC (test code = 789-8) 4.17 See_Comment L [Automated [employer]] The system which generated this result transmitted reference range: 4.26 - 5.52 10*6/?L. The reference range was not used to interpret this result as normal/abnormal. HGB (test code = 718-7) 12.6 g/dL 12.2-16.4 HCT (test code = 4544-3) 38.3 % 38.4-49.3 L MCV (test code = 787-2) 91.8 fL 81.7-95.6 MCH (test code = 785-6) 30.2 pg 26.1-32.7 MCHC (test code = 786-4) 32.9 g/dL 31.2-35.0 RDW-SD (test code = 16758-6) 45.5 fL 38.5-51.6 RDW-CV (test code = 788-0) 13.4 % 12.1-15.4 PLT (test code = 777-3) 246 See_Comment [Automated [employer]] The system which generated this result transmitted reference range: 150 - 328 10*3/?L. The reference range was not used to interpret this result as normal/abnormal. MPV (test code = 09001-9) 8.7 fL 9.8-13.0 L IPF % (test code = 5212196758) 0.8 % 1.2-10.7 L Platelet count measured by fluorescence method. NRBC/100 WBC (test code = 4286353222) 0.0 See_Comment [Automated [employer]age] The system which generated this result transmitted reference range: 0.0 - 10.0 /100 WBCs. The reference range was not used to interpret this result as normal/abnormal. NRBC x10^3 (test code = 1316484339) See_Comment [Automated [employer]] The system which generated this result transmitted reference range: 10*3/?L. The reference range was not used to interpret this result as normal/abnormal. GRAN MAT (NEUT) % (test code = 770-8) 70.9 % IMM GRAN % (test code = 7536547650) 0.30 % LYMPH % (test code = 736-9) 18.3 % MONO % (test code = 5905-5) 8.1 % EOS % (test code = 713-8) 1.9 % BASO % (test code = 706-2) 0.5 % GRAN MAT x10^3(ANC) (test code = 8877512701) 4.55 10*3/uL 1.99-6.95 IMM GRAN x10^3 (test code = 9828242477) 0.00-0.06 LYMPH x10^3 (test code = 731-0) 1.17 10*3/uL 1.09-3.23 MONO x10^3 (test code = 742-7) 0.52 10*3/uL 0.36-1.02 EOS x10^3 (test code = 711-2) 0.12 10*3/uL 0.06-0.53 BASO x10^3 (test code = 704-7) 0.03 10*3/uL 0.01-0.09 Lab Interpretation (test code = 89435-7) [id number]:59:56* Test Item Value Reference Range Interpretation Comme nts TROPONIN I (test code = 8841267309) 0.008 ng/mL <=0.034 STEPHANIE (test code = STEPHANIE) Reference (Normal) Range (defined by the 99th percentile reference limit): <= 0.034 ng/mL Note: Cardiac troponin begins to rise 3-4 hours after the onset of ischemia. Repeat in 4-6 hours if the sample was drawn within 3-4 hours of the onset of the symptom and found normal. Diagnosis of myocardial injury is made with acute changes in cTn concentrations with at least one serial sample above the 99th percentile upper reference limit (URL), taken together with the patient's clinical presentation. Biotin has been reported to cause a negative bias, interpret results relative to patient's use of biotin. Lab Interpretation (test code = 27766-5) Normal [facility]2023-03-07 17:48:33* Test Item Value Reference Range Interpretation Comme nts MAGNESIUM (test code = 9954177260) 1.9 mg/dL 1.7-2.4 Lab Interpretation (test cod e = 54417-1) Normal [facility]. METABOLIC PANEL (80366)2022-06-10 17:48:14* Test Item Value Reference Range Interpretation Comme nts NA (test code = 9348825035) 135 mmol/L 135-145 K (test code = 2311716080) 4.2 mmol/L 3.5-5.0 CL (test code = 5840804466) 104 mmol/L 98-108 CO2 TOTAL (test code = 6184633737) 24 mmol/L 23-31 AGAP (test code = 2689665582) 7 2-16 BUN (test code = 1822461251) 13 mg/dL 7-23 GLUCOSE (test code = 4351081915) 129 mg/dL 70-110 H CREATININE (test code = 8658335745) 0.67 mg/dL 0.60-1.25 TOTAL BILI (test code = 3398767984) 0.6 mg/dL 0.1-1.1 CALCIUM (test code = 7250507777) 8.5 mg/dL 8.6-10.6 L T PROTEIN (test code = 7354898348) 6.0 g/dL 6.3-8.2 L ALBUMIN (test code = 5579583200) 3.2 g/dL 3.5-5.0 L ALK PHOS (test code = 6314797363) 82 U/L 34-122 ALTv (test code = 1742-6) 28 U/L 5-50 AST(SGOT) (test code = 0319371381) 71 U/L 13-40 H eGFR (test code = 6212232839) 115.0 mL/min/1.73m2 STEPHANIE (test code = STEPHANIE) Association of Glomerular Filtration Rate (GFR) and Staging of Kidney Disease* + --+ --+ ------+| GFR (mL/min/1.73 m2) ?| With Kidney Damage ?| ?Without Kidney Damage+ --------+ --------+ +| ?>90 ?| ?Stage one ?| ? Normal ?+ ---+ ---+ -------+| ?60-89 ?| ?Stage two ?| ? Decreased GFR ? + --+ --+ ------+| ?30-59 ?| ?Stage three ?| ? Stage three ? + --+ --+ ------+| ?15-29 ?| ?Stage four ? | ? Stage four ?+ ---+ ---+ -------+| ?<15 (or dialysis) ? ?| ?Stage five ? | ? Stage five ?+ ---+ ---+ -------+ *Each stage assumes the associated GFR level has been in effect for at least three months. ?Stages 1 to 5, with or without kidney disease, indicate chronic kidney disease. Notes: Determination of stages one and two (with eGFR >59mL/min/1.73 m2) requires estimation of kidney damage for at least three months as defined by structural or functional abnormalities of the kidney, manifested by either:Pathological abnormalities or Markers of kidney damage (including abnormalities in the composition of the blood or urine or abnormalities in imaging tests). Lab Interpretation (test code = 13626-5) [facility]* Test Item Value Reference Range Interpretation Comme nts LIPASE (test code = 2338396886) 124 U/L 0-220 Lab Interpretation (test cod e = 69067-0) [facility] [id number] 17:34:30* Test Item Value Reference Range Interpretation Comme nts WBC (test code = 6690-2) 8.77 See_Comment [Automated [employer]] The system which generated this result transmitted reference range: 4.20 - 10.70 10*3/?L. The reference range was not used to interpret this result as normal/abnormal. RBC (test code = 789-8) 4.06 See_Comment L [Automated [employer]] The system which generated this result transmitted reference range: 4.26 - 5.52 10*6/?L. The reference range was not used to interpret this result as normal/abnormal. HGB (test code = 718-7) 12.6 g/dL 12.2-16.4 HCT (test code = 4544-3) 37.0 % 38.4-49.3 L MCV (test code = 787-2) 91.1 fL 81.7-95.6 MCH (test code = 785-6) 31.0 pg 26.1-32.7 MCHC (test code = 786-4) 34.1 g/dL 31.2-35.0 RDW-SD (test code = 97266-0) 42.5 fL 38.5-51.6 RDW-CV (test code = 788-0) 12.8 % 12.1-15.4 PLT (test code = 777-3) 297 See_Comment [Automated messa ge] The system which generated this result transmitted reference range: 150 - 328 10*3/?L. The reference range was not used to interpret this result as normal/abnormal. MPV (test code = 99704-0) 8.1 fL 9.8-13.0 L NRBC/100 WBC (test code = 2203024788) 0.0 See_Comment [Automated [employer] ssage] The system which generated this result transmitted reference range: 0.0 - 10.0 /100 WBCs. The reference range was not used to interpret this result as normal/abnormal. NRBC x10^3 (test code = 1935893909) See_Comment [Automated messa ge] The system which generated this result transmitted reference range: 10*3/?L. The reference range was not used to interpret this result as normal/abnormal. GRAN MAT (NEUT) % (test code = 770-8) 81.2 % IMM GRAN % (test code = 4567017777) 0.20 % LYMPH % (test code = 736-9) 9.5 % MONO % (test code = 5905-5) 7.8 % EOS % (test code = 713-8) 1.0 % BASO % (test code = 706-2) 0.3 % GRAN MAT x10^3(ANC) (test code = 7960345022) 7.12 10*3/uL 1.99-6.95 H IMM GRAN x10^3 (test code = 4971756718) 0.00-0.06 LYMPH x10^3 (test code = 731-0) 0.83 10*3/uL 1.09-3.23 L MONO x10^3 (test code = 742-7) 0.68 10*3/uL 0.36-1.02 EOS x10^3 (test code = 711-2) 0.09 10*3/uL 0.06-0.53 BASO x10^3 (test code = 704-7) 0.03 10*3/uL 0.01-0.09 Lab Interpretation (test code = 31079-8) [facility] (60068)2022-05-27 00:29:45* Test Item Value Reference Range Interpretation Comme nts NA (test code = 9169381969) 132 mmol/L 135-145 L K (test code = 9491093690) 4.4 mmol/L 3.5-5.0 CL (test code = 6430704913) 101 mmol/L 98-108 CO2 TOTAL (test code = 3014027282) 23 mmol/L 23-31 AGAP (test code = 4815506631) 8 2-16 BUN (test code = 4228736016) 25 mg/dL 7-23 H GLUCOSE (test code = 7336537432) 173 mg/dL 70-110 H CREATININE (test code = 4514008704) 0.71 mg/dL 0.60-1.25 TOTAL BILI (test code = 8785781127) 0.8 mg/dL 0.1-1.1 CALCIUM (test code = 6338561375) 8.7 mg/dL 8.6-10.6 T PROTEIN (test code = 3856430280) 6.4 g/dL 6.3-8.2 ALBUMIN (test code = 7721408338) 3.7 g/dL 3.5-5.0 ALK PHOS (test code = 4531838590) 79 U/L 34-122 ALTv (test code = 1742-6) 26 U/L 5-50 AST(SGOT) (test code = 7293250352) 36 U/L 13-40 eGFR (test code = 7282756091) 107.6 mL/min/1.73m2 STEPHANIE (test code = STEPHANIE) Association of Glomerular Filtration Rate (GFR) and Staging of Kidney Disease* + --+ --+ ------+| GFR (mL/min/1.73 m2) ?| With Kidney Damage ?| ?Without Kidney Damage+ --------+ --------+ +| ?>90 ?| ?Stage one ?| ? Normal ?+ ---+ ---+ -------+| ?60-89 ?| ?Stage two ?| ? Decreased GFR ? + --+ --+ ------+| ?30-59 ?| ?Stage three ?| ? Stage three ? + --+ --+ ------+| ?15-29 ?| ?Stage four ? | ? Stage four ?+ ---+ ---+ -------+| ?<15 (or dialysis) ? ?| ?Stage five ? | ? Stage five ?+ ---+ ---+ -------+ *Each stage assumes the associated GFR level has been in effect for at least three months. ?Stages 1 to 5, with or without kidney disease, indicate chronic kidney disease. Notes: Determination of stages one and two (with eGFR >59mL/min/1.73 m2) requires estimation of kidney damage for at least three months as defined by structural or functional abnormalities of the kidney, manifested by either:Pathological abnormalities or Markers of kidney damage (including abnormalities in the composition of the blood or urine or abnormalities in imaging tests). Lab Interpretation (test code = 88346-4) Abnormal [facility] WITH [id number] 23:12:37* Test Item Value Reference Range Interpretation Comme nts WBC (test code = 6690-2) 11.38 See_Comment H [Automated message] The system which generated this result transmitted reference range: 4.20 - 10.70 10*3/?L. The reference range was not used to interpret this result as normal/abnormal. RBC (test code = 789-8) 4.38 See_Comment [Automated message] The system which generated this result transmitted reference range: 4.26 - 5.52 10*6/?L. The reference range was not used to interpret this result as normal/abnormal. HGB (test code = 718-7) 13.7 g/dL 12.2-16.4 HCT (test code = 4544-3) 40.3 % 38.4-49.3 MCV (test code = 787-2) 92.0 fL 81.7-95.6 MCH (test code = 785-6) 31.3 pg 26.1-32.7 MCHC (test code = 786-4) 34.0 g/dL 31.2-35.0 RDW-SD (test code = 98589-1) 46.2 fL 38.5-51.6 RDW-CV (test code = 788-0) 13.5 % 12.1-15.4 PLT (test code = 777-3) 263 See_Comment [Automated message] The system which generated this result transmitted reference range: 150 - 328 10*3/?L. The reference range was not used to interpret this result as normal/abnormal. MPV (test code = 90430-4) 8.4 fL 9.8-13.0 L NRBC/100 WBC (test code = 6108962546) 0.0 See_Comment [Automated message] The system which generated this result transmitted reference range: 0.0 - 10.0 /100 WBCs. The reference range was not used to interpret this result as normal/abnormal. NRBC x10^3 (test code = 4228872320) See_Comment [Automated message] The system which generated this result transmitted reference range: 10*3/?L. The reference range was not used to interpret this result as normal/abnormal. GRAN MAT (NEUT) % (test code = 770-8) 89.4 % IMM GRAN % (test code = 7159745456) 0.30 % LYMPH % (test code = 736-9) 2.5 % MONO % (test code = 5905-5) 7.6 % EOS % (test code = 713-8) 0.0 % BASO % (test code = 706-2) 0.2 % GRAN MAT x10^3(ANC) (test code = 4569165058) 10.17 10*3/uL 1.99-6.95 H IMM GRAN x10^3 (test code = 4433437663) 0.03 10*3/uL 0.00-0.06 LYMPH x10^3 (test code = 731-0) 0.29 10*3/uL 1.09-3.23 L MONO x10^3 (test code = 742-7) 0.87 10*3/uL 0.36-1.02 EOS x10^3 (test code = 711-2) 0.06-0.53 L BASO x10^3 (test code = 704-7) 0.01-0.09 Lab Interpretation (test code = 87041-6) Abnormal [facility]. METABOLIC PANEL (42473)2022-05-03 01:11:07* Test Item Value Reference Range Interpretation Comme nts NA (test code = 4410084897) 134 mmol/L 135-145 L K (test code = 7799256991) 4.5 mmol/L 3.5-5.0 CL (test code = 6598324816) 103 mmol/L 98-108 CO2 TOTAL (test code = 5780846715) 22 mmol/L 23-31 L AGAP (test code = 1103096581) 9 2-16 BUN (test code = 6024931704) 24 mg/dL 7-23 H GLUCOSE (test code = 5399210995) 119 mg/dL 70-110 H CREATININE (test code = 7199482766) 0.79 mg/dL 0.60-1.25 TOTAL BILI (test code = 7438012605) 0.8 mg/dL 0.1-1.1 CALCIUM (test code = 5432287278) 8.5 mg/dL 8.6-10.6 L T PROTEIN (test code = 4002511446) 6.3 g/dL 6.3-8.2 ALBUMIN (test code = 6996549285) 3.6 g/dL 3.5-5.0 ALK PHOS (test code = 7271498525) 57 U/L 34-122 ALTv (test code = 1742-6) 30 U/L 5-50 AST(SGOT) (test code = 7395257388) 55 U/L 13-40 H eGFR (test code = 1188663413) 95.1 mL/min/1.73m2 STEPHANIE (test code = STEPHANIE) Association of Glomerular Filtration Rate (GFR) and Staging of Kidney Disease* + --+ --+ ------+| GFR (mL/min/1.73 m2) ?| With Kidney Damage ?| ?Without Kidney Damage+ --------+ --------+ +| ?>90 ?| ?Stage one ?| ? Normal ?+ ---+ ---+ -------+| ?60-89 ?| ?Stage two ?| ? Decreased GFR ? + --+ --+ ------+| ?30-59 ?| ?Stage three ?| ? Stage three ? + --+ --+ ------+| ?15-29 ?| ?Stage four ? | ? Stage four ?+ ---+ ---+ -------+| ?<15 (or dialysis) ? ?| ?Stage five ? | ? Stage five ?+ ---+ ---+ -------+ *Each stage assumes the associated GFR level has been in effect for at least three months. ?Stages 1 to 5, with or without kidney disease, indicate chronic kidney disease. Notes: Determination of stages one and two (with eGFR >59mL/min/1.73 m2) requires estimation of kidney damage for at least three months as defined by structural or functional abnormalities of the kidney, manifested by either:Pathological abnormalities or Markers of kidney damage (including abnormalities in the composition of the blood or urine or abnormalities in imaging tests). Lab Interpretation (test code = 83827-6) Abnormal [facility] WITH [id number] 00:53:44* Test Item Value Reference Range Interpretation Comme nts WBC (test code = 6690-2) 7.18 See_Comment [Zong] The system which generated this result transmitted reference range: 4.20 - 10.70 10*3/?L. The reference range was not used to interpret this result as normal/abnormal. RBC (test code = 789-8) 4.24 See_Comment L [Zong] The system which generated this result transmitted reference range: 4.26 - 5.52 10*6/?L. The reference range was not used to interpret this result as normal/abnormal. HGB (test code = 718-7) 13.2 g/dL 12.2-16.4 HCT (test code = 4544-3) 39.1 % 38.4-49.3 MCV (test code = 787-2) 92.2 fL 81.7-95.6 MCH (test code = 785-6) 31.1 pg 26.1-32.7 MCHC (test code = 786-4) 33.8 g/dL 31.2-35.0 RDW-SD (test code = 92056-7) 45.6 fL 38.5-51.6 RDW-CV (test code = 788-0) 13.3 % 12.1-15.4 PLT (test code = 777-3) 192 See_Comment [Automated messa ge] The system which generated this result transmitted reference range: 150 - 328 10*3/?L. The reference range was not used to interpret this result as normal/abnormal. MPV (test code = 87712-2) 8.4 fL 9.8-13.0 L NRBC/100 WBC (test code = 2067472957) 0.0 See_Comment [Automated me ssage] The system which generated this result transmitted reference range: 0.0 - 10.0 /100 WBCs. The reference range was not used to interpret this result as normal/abnormal. NRBC x10^3 (test code = 3057974847) See_Comment [Automated messa ge] The system which generated this result transmitted reference range: 10*3/?L. The reference range was not used to interpret this result as normal/abnormal. GRAN MAT (NEUT) % (test code = 770-8) 72.6 % IMM GRAN % (test code = 0699266693) 0.30 % LYMPH % (test code = 736-9) 12.8 % MONO % (test code = 5905-5) 12.5 % EOS % (test code = 713-8) 1.4 % BASO % (test code = 706-2) 0.4 % GRAN MAT x10^3(ANC) (test code = 3496561421) 5.21 10*3/uL 1.99-6.95 IMM GRAN x10^3 (test code = 6802915857) 0.00-0.06 LYMPH x10^3 (test code = 731-0) 0.92 10*3/uL 1.09-3.23 L MONO x10^3 (test code = 742-7) 0.90 10*3/uL 0.36-1.02 EOS x10^3 (test code = 711-2) 0.10 10*3/uL 0.06-0.53 BASO x10^3 (test code = 704-7) 0.03 10*3/uL 0.01-0.09 Lab Interpretation (test code = 83767-2) Abnormal [facility] Consult Notes Date/Time Note Provider Source 2022-10-30 10:31:00 5489-57-50D34:31:00Associated Order(s): CONSULT PHYSICAL THERAPY WOUND CARE Pt agreeable to PT for wound care. Patient met supine.PHYSICAL THERAPY WOUND CARE EVALUATIONConsult received, chart reviewed and evaluation complete this date. Patient referred to PT for evaluation and treatment of: Integument compromise and Non-healing wound. Patient is a 77 year old male admitted for Fever in adult [R50.9]. PT Recommendations: Continued skilled PT for wound care for would cleaning, pulsed lavage, selective, non excisional debridement of necrotic tissue , and monitor wound for updated dressing recommendations, Implement Santyl (requires prescription), Defer daily wound care to nurse, and Limit bed layers to one draw sheet (not folded blanket) and one paper chux pad (no cloth chux pad)Supplies needed: NS, Santyl, gauze and Mepilex heel foam Recommended Dressings Application/Instructions: -applied Santyl to right lateral ankle wound-gently covered with 1 2x2 gauze moistened with Normal saline (cut to conform to wound bed)-secured with mepilex heel foam dressing-offload bilateral heels with prevalon bootsWound Description: patient presents with chronic right ankle wound. pressure ulcer, stage IIILocation Size (cm) length=longest Drainage amountand type Necrotictissue Granulationtissue Odor Periwound right lateral ankle 2.5 x 2.0 cm minimal and clear 75%slough yellow 25%Manter or dull dusky red No normal for ethnic group Right medial ankle 0.5 x 0.5 None None (deep tissue injury) NA No normal for ethnic group Treatment Provided: Wound gently cleaned with NS moistened gauzedressings applied as follows: Santyl at nickel thickness, NS moistned gauze and secured with mepilex heel foam, minimal bleeding occurred and ceased at treatments end, and aseptic technique performed. Patent repositioned for pressure relief. After session, patient semi reclined in bed, semi right side lying, and with heels off loaded using bilateral heel protectors . Call button provided, spouse at bedside, RN notified of patient's status and response to treatment. PLAN OF CARE: While in the hospital, PT will follow patient at least 1 times per week,once or twice a day, per patient's tolerance and needs.See below for complete details. Admit Date: 10/27/2022 Hospital Diagnosis:Fever in adult [R50.9] PT Diagnosis: Integument compromise and Non-healing woundWeight Bearing Precaution: NA General Precautions: General, Fall,Bracing/Cast present or required:N/APMH: Past Medical History: Diagnosis Date Arrhythmia Cataract Dementia Esophageal reflux Hyperlipidemia PSH: Past Surgical History: Procedure Laterality Date ADJACENT TISSUE REARRANGEMENT N/A 02/23/2018 Surgeon: Easton Talavera MD; Location: [facility] OR Location BASAL CELL CARCINOMA EXCISION N/A 02/23/2018 Surgeon: Easton Talavera MD; Location: [facility] OR [facility] LACERATION REPAIR (SHX) on back PHACOEMULSIFICATION OF CATARACT WITH INTRAOCULAR LENS IMPLANT Right 08/16/2015 Surgeon: Rafael Grant MD; Location: [facility] OR [facility] PHACOEMULSIFICATION OF CATARACT WITH INTRAOCULAR LENS IMPLANT Left 09/13/2015 Surgeon: Rafael Grant MD; Location: [facility] OR Location Nutritional status:HGB Date Value Ref Range Status 10/30/2022 11.3 (L) 12.2 - 16.4 g/dL Final ALBUMIN Date Value Ref Range Status 10/27/2022 3.6 3.5 - 5.0 g/dL Final HGB A1C Date Value Ref Range Status 10/27/2022 5.4 4.0 - 5.7 % Final Prior Living Situation: lives with their spousePrior level of Mobility: uses w/c primarilySubjective: Patient spouse at bedside, reports they have been doctoring wounds for ~ one year and patient was schedulePatient/Family Goals: wound healingPatient/Family verbalizes understanding of condition: Yes PAIN:-Pain Description: unable to describe, grimacing and withdrawal with wound cleansing-Pain Location: right ankle-Pain rating before treatment: does not rate, After treatment: does not rate-Pain Management: Repositioning Provided and no signs of distress at endo of treatment sessionCOMMUNICATIONPrimary Language: Occitan Able to Verbalize needs: Yes Vision:WFL Hearing:WFL ORIENTATION/COGNITION:Oriented to: NT Follows Commands: Yes NEUROLOGICALLight Touch: within functional limits bilateral Tone: WNL RANGE OF MOTION: bilateral LE, within functional limits PROBLEM LIST: Pain, Integument compromise, Non-healing wound, and Impaired functional mobilityASSESSMENT: Patient is a 77 year old male evaluated secondary to the integument compromise. Patient would benefit from continued PT for wound care to address the above listed problems and to maximize healing. Healing Potential: fair Treatment Plan: Safety education, patient/caregiver education, Pulsed lavage, Wound cleaning, and Selective/non-excisional debridement of necrotic tissue The following goals are to maximize wound healing and foster normal integumentary status to allow patient to participate in normal daily activities. GOALS: upon discharge: 1. Promote granulation tissue to 100% of wound bed.2. Control bioburden and infection.3. Control drainage of wound via use of dressings to prevent maceration and infection.PATIENT EDUCATION: Patient and Significant other provided with preferred teaching of verbal information and demonstration on role of PT, plan of care, treatment benefits, dressing selections and signs/symptoms of infection. Barriers to learning include cognitive limitations and other. Verbal instruction and Demonstration teaching provided. Individual and needs reinforcement of teaching.Yvonne Harvey PT, DPTPager Number: [phone] time treatments: 0 minTotal treatment time: 34 min 54979-8Aaozqgp ldhpUA7795-08-49N11:09:46Consult noteTXT1.2.840.896117.1.13.104.2.7.2 .986819|[id number] for patient [id number] T Martinez PT[address] Rz[id number] EIGWPPPTTWJLUECTXEZAOM9272-33-82I76: 09:461.2.840.924894.1.72.3.15|1.2.84 0.691909.1.13.104.2.7.2.727879_18602 43568 Yvonne Harvey [facility] 2022-10-29 18:20:03 4691-59-66P11:20:03Associated Order(s): CONSULT PS PASTORAL CARE Encounter: The gas appliance adjuster provided the patient and family with a Healing Prayer. The gas appliance adjuster will be available to provide support whenever the patient has a need. Manager Workers Compensation Nusrat Titus MDIV, BCCOffice: [phone] 27718-9Rizcsod czzuKZ0162-55-34K31:20:37Consult noteTXT1.2.840.586552.1.13.104.2.7.2 .730519|[id number] for patient [id number] Muckelroy Lewis[address] Yg[id number] KOOBFJUUSSYTFZKHUBYGAC6074-93-37R49: 20:371.2.840.315505.1.72.3.15|1.2.84 0.507965.1.13.104.2.7.2.727879_18595 89815 Nusrat Titus [facility] 2022-10-28 09:11:45 [id number]:11:45Associated Order(s): CONSULT SPEECH Speech-Language PathologyClinical Swallow Evaluation10/28/2022 Chauncey Massey : 1945 Age/Sex: 77 year old male Time IN/OUT: Referring Physician: Chaz Roberts, MDDate of Referral: 10/28/2022Reason for Referral: dysphagiaDate of Admission/Onset: 10/28/2022SUBJECTIVE: Patient awake, but eyes close throughout assessment. RN reports that patient is not following commands and was aggressive earlier. Patient not responding to AGITATOR OPERATOR, unable to follow commands. However, he was able to accept bolus when AGITATOR OPERATOR told him "here's a spoon" or "here's a straw". OBJECTIVE: is being seen for a clinical swallow evaluation. Chauncey Massey is a 77 year old male admitted for pneumonia with PMH significant for GERD, hiatal hernia, Alzheimer's dementia, arrhythmia, HLD. Pertinent Imaging: XR CHEST 1 VWResult Date: 10/28/2022Impression: Mild cardiomegaly. Moderate hiatal hernia. Focal opacity at the right lung base, concerning for pneumonia in the setting of fever. Follow-up is recommended to ensure resolution. END REPORT RL: [id number] AFC: [id number] Previous AGITATOR OPERATOR Services/Swallow History: Patient was seen 07/25/2022 for clinical swallowing evaluation. Patient recommended regular (IDDSI level 7)-textured diet with thin liquids (IDDSI level 0) and swallow precautions: 1:1 supervision/assist for PO intake, sit fully upright/in chair, small single bites/sips, ok to use straws, remain upright after PO intake for at least 30 minutes, and crush meds and mix in puree if OK with MD Past Medical History: Diagnosis Date Arrhythmia Cataract Dementia Esophageal reflux Hyperlipidemia Past Surgical History: Procedure Laterality Date ADJACENT TISSUE REARRANGEMENT N/A 02/23/2018 Surgeon: Easton Talavera MD; Location: [facility] OR [facility] BASAL CELL CARCINOMA EXCISION N/A 02/23/2018 Surgeon: Easton Talavera MD; Location: [facility] OR [facility] LACERATION REPAIR (SHX) on back PHACOEMULSIFICATION OF CATARACT WITH INTRAOCULAR LENS IMPLANT Right 08/16/2015 Surgeon: Rafael Grant MD; Location: [facility] OR [facility] PHACOEMULSIFICATION OF CATARACT WITH INTRAOCULAR LENS IMPLANT Left 09/13/2015 Surgeon: Rafael Grant MD; Location: [facility] OR [facility] General Behavior: Agitated, Decreased ability to follow directions, and DrowsyHearing: Seems hard of hearingRespiratory Status: room airOrientation/Cognition:- Patient oriented to: oriented x0- Response type: N/A- Follows 1-step commands: NoCurrent Diet Texture/Means of Nutrition: regular (IDDSI level 7)-textured diet with thin liquids (IDDSI level 0)Oral Motor Exam Dentition and Oral Cavity: dentate, natural dentition, and moist oral mucosa Face symmetrical Jaw symmetrical Lips symmetrical at rest Tongue unable to/did not assess Palate unable to assess/did not assess Vocal Quality clear Speech clear/intelligible CLINICAL SWALLOW EVALUATION Swallows on command: No Handles Secretions: Yes Volitional Cough: does not follow commands/unable to test Spontaneous Cough: No PO trials were administered by AGITATOR OPERATOR. Patient was provided with multiple bites/sips of thin liquid (0), nectar/mildly-thick liquid (2), pudding (4), and easy to chew solid (7) consistencies with the following observations: Oral Stage Anterior leakage of bolus observed (left) with thin liquid (0) and regular solid (7) Pocketing of bolus unable to assess; patient did not follow commands to open mouth Subjectively prolonged oral phase not observed Oral residue unable to assess; patient did not follow commands to open mouth Mastication WNL Pharyngeal Stage Subjectively reduced laryngeal elevation not observed Coughing or throat clearing not observed Change in voice quality not observed Multiple swallows subjectively not observed Respiratory sufficiency and coordination WFL - no increased work of breathing and/or oxygen sats and respiratory rate remained stable Report of globus sensation unable to report 3 oz water challenge passed Patient/Family/Staff education: Provided verbally. Discussed findings of evaluation, recommendations and AGITATOR OPERATOR plan of care. RN and referring provider notified of findings and recommendations.Patient/Family goal: safe PO intakeASSESSMENT/IMPRESSIONS: Chauncey Massey appears to present with safe, functional swallowing c/b timely swallow initiation with adequate laryngeal elevation and no coughing, choking, or change in vocal quality observed (note: this exam can not rule out silent aspiration). Patient does present with possible clinical indicators of aspiration, including elevated WBC, focal opacity at right lower lung, and elevated temperature: Temp (24hrs), Av.6 ?C (99.7 ?F), Min:37.1 ?C (98.7 ?F), Max:38.1 ?C (100.6 ?F). However, given decreased ability to follow commands and agitation, do not anticipate that patient will be able to complete objective imaging of swallowing. Recommend that patient initiate PO diet with close monitoring and oral care as able. AGITATOR OPERATOR will f/u for at least one additional session to ensure diet tolerance.Prognosis is favorable for safe po intake with adherence to swallow precautions and close monitoring due to above findings.RECOMMENDATIONS/GOALS:1. Recommend patient continue a regular (IDDSI level 7)-textured diet with thin liquids (IDDSI level 0) and swallow precautions: 1:1 supervision/assist for PO intake, sit fully upright/in chair, small single bites/sips, ok to use straws, remain upright after PO intake, and crush meds and mix in puree if OK with MD 2. Recommend AGITATOR OPERATOR therapy 2-5x/wk for 15-45 min/session while in-house to address the following goals:Swallowing:- Patient will tolerate the safest, least restricted po diet texture without overt s/sx of aspiration or other negative effects on medical condition3. Recommend elevated head of bed and frequent, thorough oral hygiene care due to possible risk for aspiration.Catrachita Sanchez MS, [email or web address] coverage provided at multiple locations, please use the following numbers based on patient's location to contact this AGITATOR OPERATOR:[place] Speech: [phone] (rehab department)[place] Speech: [phone] (main office)[place] Speech: [phone] ([place] office)If unable to reach AGITATOR OPERATOR at these numbers, please text [phone] [id number] [id number]:16:51Consult [id number] .[id number] for patient [id number] Jamison [facility] - [address] [id number]: 16:511.2.840.375349.1.72.3.15|1.2.84 [id number] 03912 Catrachita Sanchez [facility] - Health History and Physical Notes Date/Time Note Provider Source 2022-11-29 20:39:11 0817-44-66H39:39:11F ormatting of this note is different from the original.MEDICINE [facility] ADMIT H&PDate of Service: 11/29/2022HIEF COMPLAINT: right foot rednessHistory of Present Rvsmpyh88 yr old male patient with GERD, hiatal hernia, dyslipidemia, dementia, and acute cystitis who presents to the ED secondary to bilateral foot redness that started yesterday. No sweepage from the leg. Also has been constipated for a week despite use of colace and miralax.PAST MEDICAL HISTORY Past Medical History: Diagnosis Date Arrhythmia Cataract Dementia Esophageal reflux Hyperlipidemia Past Surgical History: Procedure Laterality Date ADJACENT TISSUE REARRANGEMENT N/A 02/23/2018 Surgeon: Easton Talavera MD; Location: [facility] OR Location BASAL CELL CARCINOMA EXCISION N/A 02/23/2018 Surgeon: Easton Talavera MD; Location: [facility] OR Location LACERATION REPAIR (SHX) on back PHACOEMULSIFICATION OF CATARACT WITH INTRAOCULAR LENS IMPLANT Right 08/16/2015 Surgeon: Rafael Grant MD; Location: [facility] OR Location PHACOEMULSIFICATION OF CATARACT WITH INTRAOCULAR LENS IMPLANT Left 09/13/2015 Surgeon: Rafael Grant MD; Location: [facility] OR Location Family History Family history unknown: Yes ALLERGIESAllergies Allergen Reactions Bactrim [Sulfamethoxazole-Trimethoprim] Unknown - See comments Patients reports the patient is unable to walk when taking medication MEDICATIONSNo current facility-administered medications on file prior to encounter. Current Outpatient Medications on File Prior to Encounter Medication Sig Dispense Refill dextromethorphan-guaifenesin 10-100 mg/5 mL solution Take 10 mL by mouth every 6 (six) hours as needed for Cough. 240 mL 0 tamsulosin (FLOMAX) 0.4 mg 24 hr capsule Take 1 capsule by mouth in the morning. 90 capsule 4 trazodone HCl (TRAZODONE ORAL) Take 25 mg by mouth at bedtime. docusate 50 mg/5 mL solution Take 10 mL by mouth in the morning. mv-mn/iron/folic acid/herb 190 (VITAMIN D3 COMPLETE ORAL) Take 5,000 Units/day by mouth daily. timolol 0.25 % ophthalmic solution Place 1 Drop in both eyes in the morning and 1 Drop in the evening. lactobacillus acidophilus Take 1 tablet by mouth in the morning. 30 tablet 0 acetaminophen 500 mg tablet Take 2 tablets by mouth at bedtime. melatonin 10 mg Tab Take 10 mg by mouth at bedtime. OMEPRAZOLE 20 mg capsule Take 1 capsule by mouth once daily 90 capsule 0 SIMVASTATIN 40 mg tablet TAKE 1 TABLET BY MOUTH ONCE DAILY AT BEDTIME 90 tablet 0 galantamine 8 mg tablet Take 1 tablet by mouth 2 (two) times daily. 180 tablet 2 risperiDONE (RISPERDAL) 2 mg tablet Take 2 tablets by mouth every evening. 60 tablet 2 Fish Oil-DHA-EPA 1,200-144-216 mg Cap Take 1 capsule by mouth daily. brimonidine (ALPHAGAN) 0.2 % ophthalmic solution Take 1 Drop in the morning and 1 Drop at noon and 1 Drop in the evening. latanoprost (XALATAN) 0.005 % ophthalmic drops 1 Drop every evening. Vitamin E (E-PHEROL) 400 unit Tab Take 2 tablets by mouth daily. I attest that the foregoing medication list in the medical record is true, accurate and complete to the best of my knowledge.SOCIAL HISTORYSocial History Socioeconomic History Marital status: Spouse name: Luis Felipe Tobacco Use Smoking status: Never Passive exposure: Never Smokeless tobacco: Never Substance and Sexual Activity Alcohol use: No Alcohol/week: 0.0 standard drinks of alcohol Drug use: No Social Determinants of Health Financial Resource Strain: Low Risk (10/28/2022) Overall Financial Resource Strain (CARDIA) Difficulty of Paying Living Expenses: Not hard at all Food Insecurity: No Food Insecurity (10/28/2022) Hunger Vital Sign Worried About Running Out of Food in the Last Year: Never true Ran Out of Food in the Last Year: Never true Transportation Needs: No Transportation Needs (10/28/2022) PRAPARE - Transportation Lack of Transportation (Medical): No Lack of Transportation (Non-Medical): No Physical Activity: Inactive (10/28/2022) Exercise Vital Sign Days of Exercise per Week: 0 days Minutes of Exercise per Session: 0 min Social Connections: Unknown (10/28/2022) Social Connection and Isolation Panel [NHANES] Frequency of Communication with Friends and Family: Twice a week Marital Status: Housing Stability: Low Risk (10/28/2022) Housing Stability Vital Sign Unable to Pay for Housing in the Last Year: No Number of Places Lived in the Last Year: 1 Unstable Housing in the Last Year: No Review of Systems Constitutional: Negative. HENT: Negative. Eyes: Negative. Respiratory: Negative. Breasts: Negative. Cardiovascular: Negative. Gastrointestinal: Positive for constipation. Negative for abdominal distention, abdominal pain, anal bleeding, blood in stool, diarrhea, nausea, rectal pain and vomiting. Genitourinary: Negative. Musculoskeletal: Negative. Skin: Positive for color change and wound. Negative for pallor and rash. Neurological: Negative. Psychiatric/Behavioral: Negative. Endocrine: Endocrine negativePHYSICAL EXAMINATIONVitals: 11/29/22 1744 11/29/22189911/29/22195511/29/222025 BP: 135/61 120/82 131/52 (!) 140/72 Pulse: 91 77 80 Resp: 16 20 Temp: 36.8 ?C (98.3 ?F) 36.8 ?C (98.3 ?F) TempSrc: Axillary SpO2: 97% 100% Weight: 95.3 kg (210 lb) 78 kg (171 lb 14.4 oz) Height: 1.753 m (5' 9") Physical ExamVitals and nursing note reviewed. Constitutional: General: He is not in acute distress. Appearance: Normal appearance. He is not ill-appearing, toxic-appearing or diaphoretic. HENT: Head: Normocephalic and atraumatic. Right Ear: External ear normal. Left Ear: External ear normal. Nose: Nose normal. Mouth/Throat: Mouth: Mucous membranes are moist. Pharynx: No oropharyngeal exudate. Eyes: General: No scleral icterus. Extraocular Movements: Extraocular movements intact. Conjunctiva/sclera: Conjunctivae normal. Pupils: Pupils are equal, round, and reactive to light. Cardiovascular: Rate and Rhythm: Normal rate and regular rhythm. Heart sounds: No murmur heard. No friction rub. No gallop. Pulmonary: Effort: Pulmonary effort is normal. No respiratory distress. Breath sounds: Normal breath sounds. Chest: Chest wall: No tenderness. Abdominal: General: Abdomen is flat. There is no distension. Palpations: Abdomen is soft. Tenderness: There is no abdominal tenderness. Musculoskeletal: General: Normal range of motion. Cervical back: Normal range of motion and neck supple. Right lower leg: No edema. Left lower leg: No edema. Skin: Comments: Right ankle/foot: Noted to have a large ulceration on the right ankle with surrounding erythema. Neurological: Mental Status: He is alert. LABS - reviewed pertinent labs as below:ReviewedIMAGING - reviewed, pertinent results as below: ORDERING PHYSICIAN: OLMAN DAVID CLINICAL HISTORY: Abdominal pain, acute COMPARISON: 06/10/2022 CT abdomen and pelvis TECHNIQUE: Helical CT images of the abdomen and pelvis obtained with IVcontrast. CT scan performed according to ALARA (As low as reasonablyachievable) principles. FINDINGS: Heart size is normal. Moderate hiatal hernia is identified. Bilateral lowerlobe atelectasis is identified. The spleen, adrenals, and kidneys areunremarkable. There is a large fat-containing umbilical hernia. Noherniated bowel loops. The bladder is unremarkable. Moderate stool seen inthe colon. There are no acute bony abnormalities. There are no dilatedloops of bowel or bowel wall thickening. Appendix is unremarkable. IMPRESSION No acute inflammatory process in the abdomen or pelvis Colonic diverticulosis without CT evidence for diverticulitis Constipation Large fat-containing umbilical hernia. There are no herniated bowel loops Moderate hiatal hernia, stable ORDERING PHYSICIAN: OLMAN DAVID HISTORY: cough TECHNIQUE: Chest radiograph(s), 1 view. COMPARISON: None. FINDINGS: Single portable view of the chest was acquired. The cardiomediastinal silhouette is within normal limits given portabletechnique. There is no acute pulmonary consolidation, pleural effusion, orpneumothorax. No acute chest wall abnormality is radiographically evident. IMPRESSION1. No evidence of acute cardiopulmonary process. JOSIAH Tanner PROVIDER: JUNO VERDIN CLINICAL INFORMATION: Abdominal pain. COMPARISON STUDY: 11/26/2022 FINDINGS: Supine view of the abdomen demonstrates a normal bowel gas pattern. Thereis no free air. There are no abnormal calcifications. There is scoliosisand degenerative spondylosis of the spine. IMPRESSION Unremarkable single view abdomen ORDERING PHYSICIAN: JUNO VERDIN HISTORY: evaluate for any evidence of osteomyelitis. TECHNIQUE: Right ankle x-ray, 4 view(s) COMPARISON EXAMINATIONS: none available FINDINGS: The bones demonstrate no evidence for acute fracture ordislocation. Soft tissue swelling is noted in the region of the ankle,more prominent laterally and anteriorly. Atherosclerotic vascular calcifications are noted. No evidence for radiopaque foreign body. Joint spaces appear preserved. No evidence for periosteal reaction orfocal cortical lysis. IMPRESSION1. Soft tissue swelling.2. If osteomyelitis is of clinical concern, recommend MRI.ASSESSMENT/PLANMelvin Jethro Massey is a 77 year old male with PMH as listed above, admitted to the hospital with:Cellulitis/right ankle pressure ulcer:-- Will continue with antibiotics-- Wound consult-- Pain control.-- Ultrasound is pending to rule out DVT.2. Constipation: has fried miralax, docusate,and lactulose-- Will try mineral enemaGERD:-- Will resume PrilosecHLD:-- Will resume simvastatinProphylaxis: DVT- enoxaparinCode Status: addressed: DNREstimated LOS: This inpatient admission will likely require greater than or equal to 2 Midnights. Management is not feasible as an outpatient and there is concern for adverse outcomes if not managed in an inpatient setting. Advance care planning discussed for 17 mins with patient's wirfe at bedside.Surrogate decision maker: Luis Felipe Massey (spouse) - [id number] and physical vpyiFJ1138-21-31P64:01:55History and physical [id number] 9|[id number] for patient xoru78192-8Hvsptlh and physical noteLN[address] Pb[id number] CMGWTVTBQNMIZAXX1380-31-73F68:01:551.2.840 .630044.1.72.3.15|1.2.840.804744.1.13.104. [id number] [facility] 2022-10-28 06:35:38 8080-06-69R80:35:38F ormatting of this note is different from the original.MEDICINE CLS ADMIT H&PPCP: Dougie Sethi of Service: 3CHIEF COMPLAINT: Pneumonia HISTORY OF PRESENT ILLNESSA 77 yr old male patient with GERD, hiatal hernia, dyslipidemia, dementia, and possible UTI on Ceftin 3 days ago for foul smelling urine, who came to ED with fever 100.6f. Pt has wounds (stage 2) to left hip and right ankle. Has had some runny nose and just got over strep. No other symptoms and has been eating well, no change in mental status per . No vomiting or diarrhea. No other concerns. Hx is limited due to dementia.PAST MEDICAL HISTORY Past Medical History: Diagnosis Date Arrhythmia Cataract Dementia Esophageal reflux Hyperlipidemia Past Surgical History: Procedure Laterality Date ADJACENT TISSUE REARRANGEMENT N/A 02/23/2018 Surgeon: Easton Talavera MD; Location: [facility] OR [facility] BASAL CELL CARCINOMA EXCISION N/A 02/23/2018 Surgeon: Easton Talavera MD; Location: [facility] LACERATION REPAIR (SHX) on back PHACOEMULSIFICATION OF CATARACT WITH INTRAOCULAR LENS IMPLANT Right 08/16/2015 Surgeon: Rafael Grant MD; Location: [facility] PHACOEMULSIFICATION OF CATARACT WITH INTRAOCULAR LENS IMPLANT Left 09/13/2015 Surgeon: Rafael Grant MD; Location: [facility] Family Hx:NAALLERGIESAllergies Allergen Reactions Bactrim [Sulfamethoxazole-Trimethoprim] Unknown - See comments Patients reports the patient is unable to walk when taking medication MEDICATIONS: current medications were obtained updated, and reviewed in the medical record.No current facility-administered medications on file prior to encounter. Current Outpatient Medications on File Prior to Encounter Medication Sig Dispense Refill tamsulosin (FLOMAX) 0.4 mg 24 hr capsule Take 1 capsule by mouth in the morning. 90 capsule 4 trazodone HCl (TRAZODONE ORAL) Take by mouth. docusate 50 mg/5 mL solution Take 10 mL by mouth in the morning. mv-mn/iron/folic acid/herb 190 (VITAMIN D3 COMPLETE ORAL) Take 5,000 Units/day by mouth daily. timolol 0.25 % ophthalmic solution Place 1 Drop in both eyes in the morning and 1 Drop in the evening. lactobacillus acidophilus Take 1 tablet by mouth in the morning. 30 tablet 0 acetaminophen 500 mg tablet Take 2 tablets by mouth at bedtime. melatonin 10 mg Tab Take 10 mg by mouth at bedtime. OMEPRAZOLE 20 mg capsule Take 1 capsule by mouth once daily 90 capsule 0 SIMVASTATIN 40 mg tablet TAKE 1 TABLET BY MOUTH ONCE DAILY AT BEDTIME 90 tablet 0 galantamine 8 mg tablet Take 1 tablet by mouth 2 (two) times daily. 180 tablet 2 risperiDONE (RISPERDAL) 2 mg tablet Take 2 tablets by mouth every evening. 60 tablet 2 Fish Oil-DHA-EPA 1,200-144-216 mg Cap Take 1 capsule by mouth daily. brimonidine (ALPHAGAN) 0.2 % ophthalmic solution Take 1 Drop in the morning and 1 Drop at noon and 1 Drop in the evening. latanoprost (XALATAN) 0.005 % ophthalmic drops 1 Drop every evening. Vitamin E (E-PHEROL) 400 unit Tab Take 2 tablets by mouth daily. SOCIAL HISTORYSocial History Socioeconomic History Marital status: Tobacco Use Smoking status: Never Passive exposure: Never Smokeless tobacco: Never Substance and Sexual Activity Alcohol use: No Alcohol/week: 0.0 standard drinks of alcohol Drug use: No Social Determinants of Health Financial Resource Strain: Low Risk (07/21/2022) Overall Financial Resource Strain (CARDIA) Difficulty of Paying Living Expenses: Not hard at all Food Insecurity: No Food Insecurity (07/21/2022) Hunger Vital Sign Worried About Running Out of Food in the Last Year: Never true Ran Out of Food in the Last Year: Never true Transportation Needs: No Transportation Needs (07/21/2022) PRAPARE - Transportation Lack of Transportation (Medical): No Lack of Transportation (Non-Medical): No Physical Activity: Insufficiently Active (07/21/2022) Exercise Vital Sign Days of Exercise per Week: 2 days Minutes of Exercise per Session: 10 min Social Connections: Unknown (07/21/2022) Social Connection and Isolation Panel [NHANES] Frequency of Communication with Friends and Family: Twice a week Marital Status: Housing Stability: Low Risk (07/21/2022) Housing Stability Vital Sign Unable to Pay for Housing in the Last Year: No Number of Places Lived in the Last Year: 1 Unstable Housing in the Last Year: No REVIEW OF SYSTEMS(-)=Negative,(+)=Positive dementiaPHYSICAL EXAMINATIONVitals: 10/28/22 0442 10/28/22 0500 10/28/22 0620 10/28/22 0630 BP: 92/63 95/64 116/73 Pulse: 84 78 84 81 Resp: 14 16 23 Temp: 37.4 ?C (99.3 ?F) 37.3 ?C (99.2 ?F) TempSrc: Axillary Axillary SpO2: 96% 100% 97% 99% Weight: Height: O2 sat: SpO2 readings for the past 24 hrs: SpO2 10/27/22 2230 95 % 10/27/22 2236 95 % 10/27/22 2245 96 % 10/27/22 2300 94 % 10/27/22 2353 95 % 10/27/22 2355 96 % 10/28/22 0000 95 % 10/28/22 0100 95 % 10/28/22 0200 94 % 10/28/22 0225 94 % 10/28/22 0300 93 % 10/28/22 0308 94 % 10/28/22 0311 93 % 10/28/22 0400 96 % 10/28/22 0415 94 % 10/28/22 0442 96 % 10/28/22 0500 100 % 10/28/22 0620 97 % 10/28/22 0630 99 % I & O: No intake or output data in the 24 hours ending 10/28/22 0635V/S were reviewed. On RAGeneral: alert and not oriented; no apparent distressHEENT: normocephalic atraumatic, pupils equal, round, reactive to lightNeck: supple. No thyromegaly, no lymphadenopathy, no JVDLungs: good air entry bilaterally. Clear to auscultation bilaterally. No crackles or wheezes. Cough is strong and effectiveCardio: NL S1/S2. Regular rate and rhythm. No murmurs or gallopsAbdomen: soft; non-tender; non-distended; normoactive bowel sounds.Extremities: symmetrical. Trace edemaSkin: no rashes. Bed sores (stage 2) to left hip and right ankle. See photos Neuro: cranial nerves grossly intact; sensation grossly intact; muscle strength grossly normal in all four extremitiesLABS - reviewed pertinent labs as below:CMPNA (mmol/L) Date Value 10/27/2022 133 (L) 07/25/2022 135 07/24/2022 137 07/22/2022 134 (L) 07/20/2022 137 K (mmol/L) Date Value 10/27/2022 4.2 07/25/2022 4.6 07/24/2022 3.9 07/22/2022 3.8 07/20/2022 4.6 CALCIUM (mg/dL) Date Value 10/27/2022 8.6 07/25/2022 8.9 07/24/2022 8.6 07/22/2022 8.5 (L) 07/20/2022 9.3 CL (mmol/L) Date Value 10/27/2022 100 07/25/2022 105 07/24/2022 106 07/22/2022 108 07/20/2022 102 BUN (mg/dL) Date Value 10/27/2022 24 (H) 07/25/2022 22 07/24/2022 17 07/22/2022 14 07/20/2022 16 CREATININE (mg/dL) Date Value 10/27/2022 0.79 07/25/2022 0.74 07/24/2022 0.67 07/22/2022 0.73 07/20/2022 1.06 GLUCOSE (mg/dL) Date Value 10/27/2022 217 (H) 07/25/2022 93 07/24/2022 108 07/22/2022 94 07/20/2022 147 (H) CO2 TOTAL (mmol/L) Date Value 10/27/2022 23 07/25/2022 24 07/24/2022 25 07/22/2022 20 (L) 07/20/2022 25 ALBUMIN (g/dL) Date Value 10/27/2022 3.6 07/20/2022 3.7 07/18/2022 3.5 06/10/2022 3.2 (L) 05/26/2022 3.7 T PROTEIN (g/dL) Date Value 10/27/2022 6.6 07/20/2022 6.3 07/18/2022 6.1 (L) 06/10/2022 6.0 (L) 05/26/2022 6.4 TOTAL BILI (mg/dL) Date Value 10/27/2022 0.5 07/20/2022 0.4 07/18/2022 0.5 06/10/2022 0.6 05/26/2022 0.8 ALT(SGPT) (U/L) Date Value 07/01/2016 34 08/28/2015 30 07/12/2015 31 ALTv (U/L) Date Value 10/27/2022 20 07/20/2022 19 07/18/2022 18 06/10/2022 28 05/26/2022 26 AST(SGOT) (U/L) Date Value 10/27/2022 31 07/20/2022 23 07/18/2022 24 06/10/2022 71 (H) 05/26/2022 36 ALK PHOS (U/L) Date Value 10/27/2022 76 07/20/2022 85 07/18/2022 82 06/10/2022 82 05/26/2022 79 CBC withoutdiffWBC (10*3/?L) Date Value 10/27/2022 12.67 (H) 07/25/2022 6.43 07/24/2022 6.14 07/22/2022 4.29 07/20/2022 8.04 HGB (g/dL) Date Value 10/27/2022 12.9 07/25/2022 11.8 (L) 07/24/2022 11.7 (L) 07/22/2022 10.8 (L) 07/20/2022 12.6 HCT (%) Date Value 10/27/2022 38.0 (L) 07/25/2022 36.0 (L) 07/24/2022 35.1 (L) 07/22/2022 32.3 (L) 07/20/2022 38.6 MCV (fL) Date Value 10/27/2022 90.0 07/25/2022 91.6 07/24/2022 90.9 07/22/2022 91.0 07/20/2022 93.7 PLT (10*3/?L) Date Value 10/27/2022 189 07/25/2022 225 07/24/2022 208 07/22/2022 206 07/20/2022 239 IMAGING - reviewed, pertinent results as below:XR CHEST 1 VWResult Date: 10/28/2022Impression: Mild cardiomegaly. Moderate hiatal hernia. Focal opacity at the right lung base, concerning for pneumonia in the setting of fever. Follow-up is recommended to ensure resolution. END REPORT RL: 460 AFC: 60765 SSMENT/Nishi Jethro Massey is a 77 year old male with PMH as listed above, admitted to the hospital with:Active Problems:RLL PNA (CAP)Mild hypoNaGERD/hiatal herniaDyslipidemiaDementiaPLAN:Admit to the TeleRocephin and Zithromax for 5 daysDuonebPEP therapyWound careMonitor NaUrine AgDVT prophylaxisO2 to keep SpO2 > 92%ST eval Current medications were obtained updated, and reviewed in the medical record.Most recent hemoglobin A1c level: NAAdvance Care Planning discussed and documented; advance care plan or surrogate decision maker documented in the medical record: full code, wifePain Assessment Documented as Negative, No Follow-Up Plan Required. Chaz Rosales MD, FCCP, LENNY 18516-7Bfczgsn and physical orsvCQ4365-76-35S81:56:14History and physical noteTXT1.2.840.953284.1.13.104.2.7.2.12376 9|[id number] for patient [address] DiaeF[id number] WPQRZCBZSDMQFNIW9752-03-31I93:56:141.2.840 .401300.1.72.3.15|1.2.840.768843.1.13.104. 2.7.2.727879_[id number] [facility] Notes Date/Time Note Provider Source 2022-12-02 15:48:15 9447-89-75J18:48:15 TRANSITIONAL CARE MANAGEMENT ASSESSMENT12/02/2022 Chauncey [id number] Massey is a 77 year old /White male was admitted on 11/29/22 to [facility], [facility] SURG. He was discharged on 12/01/22 with discharge disposition of HR- Routine Discharge.Admitting Physician: Danyelle Hines Diagnosis: Cellulitis/right ankle pressure ulcerNo linked episodesTCM Tur-pepr-er-face outreach documentation:Discharge AssessmentChart Assessed: 12/02/22TCM Outreach Completed: 12/02/22Do you have a few minutes to speak with me about how you are doing at home?: Yes (Per patient is doing better)Discharge InstructionsDo you understand your at-home instructions?: YesMedicationsHave you filled your prescriptions and do you have them in your home? : See comments ([facility] the [facility])Do you know how to take your medications?: YesSuppliesDid you receive applicable home medical supplies/equipment?: N/AFollow Up AppointmentHas a follow up appointment been scheduled?: NoMay I assist with scheduling this appointment?: Patient will schedule ( will follow up)Do you have any questions about your follow up appointments?: NoAre you able to get to your appointment? Who will be taking you?: Yes (spouse)Home Health AssistanceHas the home health nurse contacted you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 70 34 - 122 U/L ALTv 20 5 - 50 U/L AST(SGOT) 36 13 - 40 U/L eGFR 147.5 mL/min/1.73m2 URINALYSIS EKG:If EKG completed, see Procedure Note. Orders and Treatments:Orders Placed This Encounter Procedures CT ABDOMEN PELVIS W CONTRAST XR CHEST 1 VW CBC WITH DIFF URINALYSIS COMP. METABOLIC PANEL (80428) Orders Placed This Encounter Medications NaCl 0.9% (NS) bolus infusion 500 mL iopamidol (ISOVUE 370-500 mL) injection 80 mL lactulose (CEPHULAC) solution 30 mL First Provider Eval:ED Events Date/Time Event User Comments 11/26/221405 Medical Screening Begins OLMAN CHARLES -- 11/26/221405 First Provider Evaluation OLMAN CHARLES -- No notes of EC Admission Criteria type on file.ED COURSEED Course as of 11/26/221811Nov 26, 2022 175 Discussed findings with the patient's . Offered enema, she declined. Would prefer to trial Lactulose and will add Dulcolax to bowel regimen. Currently on Miralax and Colace [MM] 1747 CT ABDOMEN PELVIS W CONTRASTIMPRESSION No acute inflammatory process in the abdomen or pelvis Colonic diverticulosis without CT evidence for diverticulitis Constipation Large fat-containing umbilical hernia. There are no herniated bowel loops Moderate hiatal hernia, stable HS:Y RL: 5252 [MM] 1621 NA: 135 [MM] 1621 CREATININE(!): 0.54 [MM] 1534 HCT(!): 36.7 [MM] 1534 HGB: 12.4 [MM] 1534 WBC x10^3: 9.43 [MM] 1522 XR CHEST 1 VWIMPRESSION1. No evidence of acute cardiopulmonary process. End of Report ImagingXR CHEST 1 VW (Order: [id number]) - 11/26/2022 [MM] ED Course User Index[MM] Olman David FNP Diagnosis/Impression as of 11/26/22 181 Abdominal pain, unspecified abdominal location Constipation, unspecified constipation type Dementia with behavioral disturbance Procedures: ProceduresMDM:Medical Decision Vsftqp08-yspu-dau male here with history of dementia that presents with concern for constipation cough. On exam patient is able to follow some basic commands. He is not toxic appearing. Abdomen is soft with diffuse generalized tenderness. No generalized peritonitis. Vital signs are stable. Lung sounds are clear.CBC, CMP, UA, CT abdomen pelvis, chest 1 view.Chart review shows pt had a previous rectal Impaction this year secondary to Diverticulitis. Problems Addressed:Abdominal pain, unspecified abdominal location: acute illness or injuryConstipation, unspecified constipation type: acute illness or injuryDementia with behavioral disturbance: chronic illness or injuryAmount and/or Complexity of Data ReviewedLabs: ordered. Decision-making details documented in ED Course.Radiology: ordered. Decision-making details documented in ED Course.RiskPrescription drug management.Parenteral controlled substances.Risk Details: 77-year-old male here with history of dementia that presents with concern for constipation. reports last bowel movement was approximately week ago. He does take MiraLAX and Colace daily. Of note a little over a week ago patient finished a course of antibiotics and the reports he had several large bowel movements. She states he has not been complaining of abdominal pain. She was concerned he may be obstructed. Labs and imaging reviewed as per above. Moderate constipation noted without obstruction. Abdomen is soft. Labs showed no acute leukocytosis or bandemia. Unable to obtain urine sample. Given dose of lactulose here. Offered enema, declined. She states this normally make his hemorrhoids bleed so she doesn't want to do that. We will adult goal asked to his bowel regimen for the next few days. Advised also to ensure good hydration and fiber intake. Flowsheet Documentation: Scoring Tools: No data recorded Disposition/Condition:ED Disposition ED Disposition Disch - Home Condition Stable Comment -- Discharge Medications:Patient's Medications START taking these medications No medications on file CONTINUE taking these medications which have NOT CHANGED ACETAMINOPHEN 500 MG TABLET Take 2 tablets by mouth at bedtime. BRIMONIDINE (ALPHAGAN) 0.2 % OPHTHALMIC SOLUTION Take 1 Drop in the morning and 1 Drop at noon and 1 Drop in the evening. DEXTROMETHORPHAN-GUAIFENESIN 10-100 MG/5 ML SOLUTION Take 10 mL by mouth every 6 (six) hours as needed for Cough. DOCUSATE 50 MG/5 ML SOLUTION Take 10 mL by mouth in the morning. FISH OIL-DHA-EPA 1,200-144-216 MG CAP Take 1 capsule by mouth daily. GALANTAMINE 8 MG TABLET Take 1 tablet by mouth 2 (two) times daily. LACTOBACILLUS ACIDOPHILUS Take 1 tablet by mouth in the morning. LATANOPROST (XALATAN) 0.005 % OPHTHALMIC DROPS 1 Drop every evening. MELATONIN 10 MG TAB Take 10 mg by mouth at bedtime. MV-MN/IRON/FOLIC ACID/HERB 190 (VITAMIN D3 COMPLETE ORAL) Take 5,000 Units/day by mouth daily. OMEPRAZOLE 20 MG CAPSULE Take 1 capsule by mouth once daily RISPERIDONE (RISPERDAL) 2 MG TABLET Take 2 tablets by mouth every evening. SIMVASTATIN 40 MG TABLET TAKE 1 TABLET BY MOUTH ONCE DAILY AT BEDTIME TAMSULOSIN (FLOMAX) 0.4 MG 24 HR CAPSULE Take 1 capsule by mouth in the morning. TIMOLOL 0.25 % OPHTHALMIC SOLUTION Place 1 Drop in both eyes in the morning and 1 Drop in the evening. TRAZODONE HCL (TRAZODONE ORAL) Take 25 mg by mouth at bedtime. VITAMIN E (E-PHEROL) 400 UNIT TAB Take 2 tablets by mouth daily. START taking Modified Medications as Prescribed No medications on file STOP taking these medications No medications on file Follow-up:The patient is well appearing, non-toxic, and in no acute distress. Findings, pathophysiology related to disease process, and differential diagnosis discussed with the patient. Strict warning signs and return precautions provided. I discussed plan for discharge and return precautions along with the need for out patient follow up with patient and or family, they are in agreement and verbalized understanding of the plan. The patient/parent appears to have appropriate medical decision making capacity. I have considered medical emergencies that could be related to this patient's clinical presentation, including life and limb threatening disease processes. I am unable to find any evidence that one might be present at this time and the patient's condition is stabilized. In my medical judgment, there is no indication for further evaluation, treatment, or admission of the patient. Comprehensive verbal and written discharge and follow up instructions have been provided to the patient and/or family.Reviewed RADIOLOGICAL HEALTH SPECIALIST if indicated. If pain medicine was prescribed it was for the following reason:Electronically signed by: Olman David, JF11/26/221807 Olman David, [facility]11/26/221812 ssociated attestation - Farhad Burr MD - 11/26/2022 6:43 PM CDT Lynn was personally available for consultation in the Emergency Department during this encounter and patient evaluation by BRAYDEN David.60245-5Zscvurrsn Emergency department [id number], Pedram A1.2.840.564276.1.13.104.2.7.2.8369 88QzupdtwVyuxdvOBG7880-34-06Q82:43: 24Physician Emergency department NoteTXT1.2.840.300162.1.13.104.2.7. 2.708216|[id number] for patient hgbk63909-7Cbklvxaqj department NoteLNUT[address] Mx[id number] 9QDDDZJATXPRHZNEPUFGXEY9434-79-22G2 8:43:241.2.840.771199.1.72.3.15|1.2 .840.526597.1.13.104.2.7.2.727879_1 [id number] [facility] 2022-10-31 12:38:58 2063-29-30Q66:38:58 TRANSITIONAL CARE MANAGEMENT ASSESSMENT10/31/2022 Chauncey [id number] Massey is a 77 year old /White male was admitted on 10/27/22 to [facility] ICU/ACU[facility] ADPT F2. He was discharged on 10/30/22 with discharge disposition of HR- Routine Discharge.Admitting Physician: Josselin Roberts Diagnosis: RLL PNA (CAP)No linked episodesTCM Aue-umpp-jh-face outreach documentation:Discharge AssessmentChart Assessed: 10/31/22TC Outreach Completed: 10/31/22Do you have a few minutes to speak with me about how you are doing at home?: Yes (Per patient is doing pretty good and the caregiver from [place] is helping)Discharge InstructionsDo you understand your at-home instructions?: YesMedicationsHave you filled your prescriptions and do you have them in your home? : YesDo you know how to take your medications?: Yes Follow Up AppointmentHas a follow up appointment been scheduled?: Yes (Per patient will be following up with [facility] primary care with home visits and he will have skilled nurse, sash repairer, OT,PT, RT and social security benefits interviewer)Do you have any questions about your follow up appointments?: NoAre you able to get to your appointment? Who will be taking you?: Yes (Per [employer] provides transportation to his appt in [facility])Home Health AssistanceHas the home health nurse contacted you since you've been home?: N/ASurvey - RecognitionIs there anything you would like to share about your recent hospitalization, or anyone you would like to recognize?: Yes (Patient sated that the care was good and we have a wonderful facility)Do you have any suggestions for improvement?: NoDo you have any other questions or concerns at this time?: NoFuture Appointments: Future Appointments Provider Department Dept Phone 11/05/2022 9:00 AM Dougie Giles MD [facility] [phone] 09/02/2023 1:45 PM Natalie Trivedi FNP [facility] [phone] 75681-9Nbtoavnfi encounter TbogGI8714-56-27L62:40:19Telephone encounter NoteTXT1.2.840.195884.1.13.104.2.7. 2.108206|[id number] for patient [id number] YOUNG[address] Hj[id number] 4RUMKGWEXGYLUMREANQJUHQ8150-34-66N3 2:40:191.2.840.201022.1.72.3.15|1.2 .840.371260.1.13.104.2.7.2.727879_1 [id number] Ena Vaughn RN [facility] 2022-10-30 12:03:26 8654-85-78Y75:03:26 Problem: Respiratory Function - ImpairedGoal: Adequate work of breathingOutcome: Adequate for discharge Problem: Falls, Risk ofGoal: Absence of fallsOutcome: Adequate for discharge Problem: Skin integrity Impaired (Risk or Actual)Goal: Wound healingOutcome: Adequate for dischargeGoal: Prevention of new skin breakdownOutcome: Adequate for discharge Problem: Discharge PlanningGoal: Adequate for dischargeOutcome: Adequate for discharge 50644-6Dunr of care kalaOC4875-49-76Y47:03:36Plan of care noteTXT1.2.840.367579.1.13.104.2.7. 2.169933|[id number] for patient [id number] L Keys RN[id number] 0FDVMSXJXNIJAHXLFRFRTXH7674-08-70Z8 2:03:361.2.840.263342.1.72.3.15|1.2 .840.363477.1.13.104.2.7.2.727879_1 [id number] Lisa Muro RN [facility] 2022-10-29 22:21:59 9842-52-97A08:21:59 Problem: Respiratory Function - ImpairedGoal: Adequate work of breathingOutcome: Progressing as expected Problem: Falls, Risk ofGoal: Absence of fallsOutcome: Progressing as expected Problem: Skin integrity Impaired (Risk or Actual)Goal: Wound healingOutcome: Progressing as expectedGoal: Prevention of new skin breakdownOutcome: Progressing as expected Problem: Discharge PlanningGoal: Adequate for dischargeOutcome: Progressing as expected 12291-8Rqsm of care xbfuIR1038-84-32I92:22:03Plan of care noteTXT1.2.840.391867.1.13.104.2.7. 2.714023|[id number] for patient [id number] R Morales [id number] 0ZTLCUIKSRFIDWXCAOMUVCA2708-66-79I4 2:22:031.2.840.696606.1.72.3.15|1.2 .840.936113.1.13.104.2.7.2.727879_1 [id number] Fatmiah Whitmore [facility] 2022-10-29 15:19:40 5267-80-27P31:19:40 Problem: Respiratory Function - ImpairedGoal: Adequate work of breathingOutcome: Progressing as expected Problem: Falls, Risk ofGoal: Absence of fallsOutcome: Progressing as expected Problem: Skin integrity Impaired (Risk or Actual)Goal: Wound healingOutcome: Progressing as expectedGoal: Prevention of new skin breakdownOutcome: Progressing as expected Problem: Discharge PlanningGoal: Adequate for dischargeOutcome: Progressing as expected 65557-5Qjve of care fwlcSJ1092-32-83G37:19:43Plan of care noteTXT1.2.840.045527.1.13.104.2.7. 2.800910|[id number] for patient [id number] 5BFGOPQHPPTOSEWGTYYQVNC5351-47-45V9 5:19:431.2.840.070989.1.72.3.15|1.2 .840.538981.1.13.104.2.7.2.727879_1 [id number] [facility] 2022-10-29 00:32:29 5035-89-50U20:32:29 Problem: Respiratory Function - ImpairedGoal: Adequate work of breathingOutcome: Progressing as expected Problem: Falls, Risk ofGoal: Absence of fallsOutcome: Progressing as expected Problem: Skin integrity Impaired (Risk or Actual)Goal: Wound healingOutcome: Progressing as expectedGoal: Prevention of new skin breakdownOutcome: Progressing as expected Problem: Discharge PlanningGoal: Adequate for dischargeOutcome: Progressing as expected 80175-0Gnox of care fibxQX6829-05-71X41:32:32Plan of care noteTXT1.2.840.491280.1.13.104.2.7. 2.175797|[id number] for patient [id number] A Bachynsky RNUT[id number] 6EYEGRQHDUCNLKFEGZBJQAK7374-07-89H9 0:32:321.2.840.840139.1.72.3.15|1.2 .840.535059.1.13.104.2.7.2.727879_1 [id number] Aubrey Duron RN [facility] 2022-10-28 14:26:16 9287-03-46U93:26:16 Problem: Respiratory Function - ImpairedGoal: Adequate work of breathingOutcome: Progressing as expected Problem: Falls, Risk ofGoal: Absence of fallsOutcome: Progressing as expected Problem: Skin integrity Impaired (Risk or Actual)Goal: Wound healingOutcome: Progressing as expectedGoal: Prevention of new skin breakdownOutcome: Progressing as expected Problem: Discharge PlanningGoal: Adequate for dischargeOutcome: Progressing as expected 42701-8Norw of care npowJT5968-82-20B43:26:19Plan of care noteTXT1.2.840.452432.1.13.104.2.7. 2.062169|[id number] for patient [id number] 5RZYPFBBBDADZCMXIWLXKNP1323-91-43U4 4:26:191.2.840.927389.1.72.3.15|1.2 .840.341353.1.13.104.2.7.2.727879_1 [id number] [facility] 2022-10-28 05:13:15 4412-94-01R32:13:15 Patient transferred to [facility] for diagnosis of PNA of RLLPatient agrees to transfer/admit plan and verbalized understanding of plan of care, family aware of planPatient awake alert, oriented, resp reg unlabored, skin w/d PIV patent, no s/s infiltration noted, No adverse reaction to medications given while in ED. Report given to [facility] EMS personnel 31743-1Pmwuirsbn department HeqbZQ2887-97-62E08:13:48Emergency department NoteTXT1.2.840.447594.1.13.104.2.7. 2.581963|[id number] for patient [id number] 2MZVXRUPEHTCFOWESVRRMPH7344-10-76A2 5:13:481.2.840.612751.1.72.3.15|1.2 .840.814114.1.13.104.2.7.2.727879_1 [id number] [facility] 2022-10-28 03:54:12 2998-82-34I50:54:12 Pt pending ICU bed assignment, at bedside is aware of delay in transfer. Pt resting on back at this time, MAP of 71. 23462-4Ufaemzurr department XziaCL8726-35-04M60:02:58[facility] department NoteTXT1.2.840.649966.1.13.104.2.7. 2.093524|[id number] for patient [id number] 5CZFVDJBFCXRZVZOYSPNJYV2389-58-13T4 4:02:581.2.840.216210.1.72.3.15|1.2 .840.710552.1.13.104.2.7.2.727879_1 [id number] [facility] 2022-10-28 03:12:38 8330-94-41U60:12:38 Pt sleeping on right side with cuff on left arm. Provider aware 18088-9Txznn GtlaBO9897-32-36I13:13:22Nurse NoteTXT1.2.840.129212.1.13.104.2.7. 2.209295|[id number] for patient [id number] 7JZEIDEAMVCBQREEAYXKZLT3533-29-75X9 3:13:221.2.840.733133.1.72.3.15|1.2 .840.805292.1.13.104.2.7.2.727879_1 [id number] [facility] 2022-10-28 01:19:48 7521-28-90L79:19:48 Pt laying on right side with cuff on LUE 84281-1Jafss SminBX6240-30-98F96:20:13Nurse NoteTXT1.2.840.364755.1.13.104.2.7. 2.171239|[id number] for patient [id number] 3WZCJXXYRBSBXYTOAJRLNHY0720-94-64P2 1:20:131.2.840.986381.1.72.3.15|1.2 .840.244146.1.13.104.2.7.2.727879_1 [id number] [facility] 2022-10-27 22:26:42 6182-67-60V62:26:42 Pt started ceftin 3 days ago for foul smelling urine. He was also medicated with tylenol at 1900 43876-8Qeartryca department PojwER7214-30-94R71:29:09Emergency department NoteTXT1.2.840.682155.1.13.104.2.7. 2.897937|[id number] for patient [id number] 4AAQAFRVXMMTJLJFZWLVCLH2587-53-40V7 2:29:091.2.840.337029.1.72.3.15|1.2 .840.666473.1.13.104.2.7.2.727879_1 [id number] [facility] 2022-10-27 22:04:22 2413-69-01S41:04:22 CC: called EMS for pt being febrile at 100.6f. Pt has wounds to left hip and right ankle. He has dementia and can get aggressive at baseline. Pt does not have cold or GI symptoms. Pt had ST elevation in leads I and II, V5, V6, depression in V3, V4, all matched on right side EKG. Pt arrives wearing several diapers and incontinence pads. PMHx: denemia, alzheimers, heart diseaseAwake, alert, not able to answer any orientation questions, resp reg unlabored, skin hot, color appropriate for race, moves all ext, WC bound at baseline. 70181-2Qvpjetuin department Triage lqzqRT6759-18-51V94:09:37[facility] department Triage noteTXT1.2.840.144385.1.13.104.2.7. 2.830717|[id number] for patient [id number] R Shehadeh RN[address] Tw[id number] 1VEQMXNDPDAGKFAEBNCVNWD2796-66-90K1 2:09:371.2.840.566646.1.72.3.15|1.2 .840.378378.1.13.104.2.7.2.727879_1 [id number] Imani Pelayo RN [facility] 2022-10-27 21:58:00 5763-35-27Q71:58:00 [facility] Emergency Department NotePatient Name: Chauncey Leeate of : 1945 77 year old maleTreatment Room: 9/QO6Xydsxxm Record Number: [id number] Care Physician: Dougie GilesPatient Escorted by: Self [9]Mode of Arrival: EMS - 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 gave tylenol 650 crushed in apple sauce around 7pm. He has been cefdinir for the last 3 days for foul smelling urine. Has had some runny nose and just got over strep. No other symptoms and has been eating well, no change in mental status per . No vomiting or diarrhea. No other concerns. Pt unable to respondPast Medical History/Immunizations:Past Medical History: Diagnosis Date Arrhythmia Cataract Dementia Esophageal reflux Hyperlipidemia Tetanus received in last 5 years: Unknown Allergies:Allergies Allergen Reactions Bactrim [Sulfamethoxazole-Trimethoprim] Unknown - See comments Patients reports the patient is unable to walk when taking medication Past Social History:Tobacco Use Never smoked or used smokeless tobacco. Passive Exposure: Never Alcohol Use No. Drug Use No. Past Surgical History:Past Surgical History: Procedure Laterality Date ADJACENT TISSUE REARRANGEMENT N/A 02/23/2018 Surgeon: Easton Talavera MD; Location: [facility] OR [facility] BASAL CELL CARCINOMA EXCISION N/A 02/23/2018 Surgeon: Easton Talavera MD; Location: [facility] OR [facility] LACERATION REPAIR (SHX) on back PHACOEMULSIFICATION OF CATARACT WITH INTRAOCULAR LENS IMPLANT Right 08/16/2015 Surgeon: Rafael Grant MD; Location: [facility] OR [facility] PHACOEMULSIFICATION OF CATARACT WITH INTRAOCULAR LENS IMPLANT Left 09/13/2015 Surgeon: Rafael Grant MD; Location: [facility] OR [facility] Review of Systems: Review of Systems Unable to perform ROS: Dementia Physical Exam: ED Triage Vitals Weight 10/27/22 2211 70.8 kg (156 lb) Actual or estimated 10/27/222210 Estimated by patient/family report Height 10/27/222210 1.778 m (5' 10") BP 10/27/222214 98/54 Pulse 10/27/222210 105 Resp 10/27/222210 22 Temp 10/27/222210 38.1 ?C (100.6 ?F) Temp source 10/27/222210 Rectal SpO2 10/27/222229 95 % Measured on 10/27/222210 Room air Physical ExamVitals and nursing note reviewed. Constitutional: General: He is not in acute distress. Appearance: He is not diaphoretic. Comments: Febrile 100.6 rectally HENT: Head: Normocephalic and atraumatic. Eyes: Pupils: Pupils are equal, round, and reactive to light. Neck: Vascular: No JVD. Cardiovascular: Rate and Rhythm: Tachycardia present. Heart sounds: Normal heart sounds. No murmur heard.Pulmonary: Effort: Pulmonary effort is normal. No respiratory distress. Breath sounds: Normal breath sounds. Abdominal: General: There is no distension. Palpations: Abdomen is soft. Tenderness: There is no abdominal tenderness. Genitourinary: Comments: Diaper soaked with urineMusculoskeletal: General: Normal range of motion. Cervical back: Neck supple. Skin: General: Skin is warm and dry. Comments: Skin break down on right heel, left hip, very mild redness on sacrum with no breakdown Neurological: Mental Status: He is alert. Mental status is at baseline. He is disoriented. Comments: Patient grabs people too hard and won't let go, often cusses Radiology:No orders to display Lab Results:Lab Results CBC WITH DIFF - Abnormal Result Value Ref Range WBC 12.67 (*) 4.20 - 10.70 10*3/?L RBC 4.22 (*) 4.26 - 5.52 10*6/?L HGB 12.9 12.2 - 16.4 g/dL HCT 38.0 (*) 38.4 - 49.3 % MCV 90.0 81.7 - 95.6 fL MCH 30.6 26.1 - 32.7 pg MCHC 33.9 31.2 - 35.0 g/dL RDW-SD 44.8 38.5 - 51.6 fL RDW-CV 13.6 12.1 - 15.4 % PLT 189 150 - 328 10*3/?L MPV 8.7 (*) 9.8 - 13.0 fL NRBC/100 WBC 0.0 0.0 - 10.0 /100 WBCs NRBC x10^3 <0.01 10*3/?L GRAN MAT (NEUT) % 83.5 % IMM GRAN % 0.60 % LYMPH % 6.0 % MONO % 9.6 % EOS % 0.1 % BASO % 0.2 % GRAN MAT x10^3(ANC) 10.59 (*) 1.99 - 6.95 10*3/uL IMM GRAN x10^3 0.08 (*) 0.00 - 0.06 10*3/uL LYMPH x10^3 0.76 (*) 1.09 - 3.23 10*3/uL MONO x10^3 1.21 (*) 0.36 - 1.02 10*3/uL EOS x10^3 <0.03 (*) 0.06 - 0.53 10*3/uL BASO x10^3 <0.03 0.01 - 0.09 10*3/uL COMP. METABOLIC PANEL (45102) - Abnormal NA 133 (*) 135 - 145 mmol/L K 4.2 3.5 - 5.0 mmol/L CL 100 98 - 108 mmol/L CO2 TOTAL 23 23 - 31 mmol/L AGAP 10 2 - 16 BUN 24 (*) 7 - 23 mg/dL GLUCOSE 217 (*) 70 - 110 mg/dL CREATININE 0.79 0.60 - 1.25 mg/dL TOTAL BILI 0.5 0.1 - 1.1 mg/dL CALCIUM 8.6 8.6 - 10.6 mg/dL T PROTEIN 6.6 6.3 - 8.2 g/dL ALBUMIN 3.6 3.5 - 5.0 g/dL ALK PHOS 76 34 - 122 U/L ALTv 20 5 - 50 U/L AST(SGOT) 31 13 - 40 U/L eGFR 95.1 mL/min/1.73m2 LACTIC ACID WHOLE BLOOD - Normal LACTIC ACID 1.74 0.50 - 2.20 mmol/L COVID-19 (ID NOW RAPID TESTING) - Normal SARS-CoV-2 Rapid ID NOW Not Detected Not Detected RAPID STREP SCREEN FOR GROUP A - Normal Molecular Strep Negative Negative URINALYSIS TROPONIN I THROAT CULTURE EKG:If EKG completed, see Procedure Note. Orders and Treatments:Orders Placed This Encounter Procedures XR CHEST 1 VW URINALYSIS CBC WITH DIFF COMP. METABOLIC PANEL (76804) Lactic Acid Whole Blood Lactic Acid Whole Blood TROPONIN I COVID-19 (ID NOW TESTING) RAPID STREP SCREEN FOR GROUP A THROAT CULTURE LAB ONLY COVID INTERPRETATION No orders of the defined types were placed in this encounter.First Provider Eval:ED Events Date/Time Event User Comments 10/27/222205 Medical Screening Begins MONICA RYAN NP -- 10/27/222205 First Provider Evaluation MONICA RYAN NP -- ED COURSEDiagnosis/Impression as of 10/28/22 0143 Fever in adult Pneumonia of right lower lobe due to infectious organism Procedures: ProceduresMDM:Medical Decision MakingFebrile workkupCxr is normalLactate normalElevated WBCCovid neg, strep negIV fluids given to help coolSigned out pending urine, repeat temp and further evalProblems Addressed:Fever in adult: acute illness or injuryAmount and/or Complexity of Data ReviewedIndependent Historian: spouse Details: wifeLabs: ordered.Radiology: ordered.RiskPrescription drug management. Flowsheet Documentation: Scoring Tools: No data recorded Disposition/Condition:ED Disposition None Discharge Medications:Patient's Medications START taking these medications No medications on file CONTINUE taking these medications which have NOT CHANGED ACETAMINOPHEN 500 MG TABLET Take 2 tablets by mouth at bedtime. BRIMONIDINE (ALPHAGAN) 0.2 % OPHTHALMIC SOLUTION Take 1 Drop in the morning and 1 Drop at noon and 1 Drop in the evening. DOCUSATE 50 MG/5 ML SOLUTION Take 10 mL by mouth in the morning. FISH OIL-DHA-EPA 1,200-144-216 MG CAP Take 1 capsule by mouth daily. GALANTAMINE 8 MG TABLET Take 1 tablet by mouth 2 (two) times daily. LACTOBACILLUS ACIDOPHILUS Take 1 tablet by mouth in the morning. LATANOPROST (XALATAN) 0.005 % OPHTHALMIC DROPS 1 Drop every evening. MELATONIN 10 MG TAB Take 10 mg by mouth at bedtime. MV-MN/IRON/FOLIC ACID/HERB 190 (VITAMIN D3 COMPLETE ORAL) Take 5,000 Units/day by mouth daily. OMEPRAZOLE 20 MG CAPSULE Take 1 capsule by mouth once daily RISPERIDONE (RISPERDAL) 2 MG TABLET Take 2 tablets by mouth every evening. SIMVASTATIN 40 MG TABLET TAKE 1 TABLET BY MOUTH ONCE DAILY AT BEDTIME TAMSULOSIN (FLOMAX) 0.4 MG 24 HR CAPSULE Take 1 capsule by mouth in the morning. TIMOLOL 0.25 % OPHTHALMIC SOLUTION Place 1 Drop in both eyes in the morning and 1 Drop in the evening. TRAZODONE HCL (TRAZODONE ORAL) Take by mouth. VITAMIN E (E-PHEROL) 400 UNIT TAB Take 2 tablets by mouth daily. START taking Modified Medications as Prescribed No medications on file STOP taking these medications No medications on file Follow-up:Electronically signed by: Marcie Nickerson DO10/27/22 2332 [id number] Emergency department [id number] Emergency department [id number] for patient careEMCARE EMERGENCY PHYSICIAN STAFFEMCARE EMERGENCY PHYSICIAN STAFF[address] [id number] [facility]
--- NOTE | 2023-09-08 16:37 | RAD REPORT ---
EXAM DESCRIPTION: [place] Single View09/08/2023 4:12 pm CLINICAL HISTORY: cough COMPARISON: none FINDINGS: The lungs appear clear of acute infiltrate. The heart is probably borderline enlarged IMPRESSION: No acute abnormalities displayed
[2023-09-08 16:43] LABS: Absolute Eosinophils 0.2 K/uL (0-0.5); Absolute Monocytes 0.7 K/uL (0.1-1.3); Absolute Neutrophil 6.4 K/uL (1.8-8.0); Basophils % 0.3 % (0-1.3); Eosinophils % 2.3 % (0-4.4); Hematocrit 37.8 % (39.6-49.0); Hemoglobin 12.2 g/dL (13.6-17.9); Lymphocytes % 11.6 % (15.3-44.8); MCH 28.1 pg (27.0-35.0); MCHC 32.3 g/dL (32.0-36.0); MCV 87.2 fL (80-100); MPV 6.8 fL (7.6-11.3); Monocytes % 8.7 % (3.3-12.3); Neutrophils % 77.1 % (41.7-73.7); Platelets 243 thou/uL (152-406); RBC Red Blood Cell Count 4.34 M/uL (4.33-5.43); Red Cell Distribution Width 14.9 % (12.1-15.2)
[2023-09-08 16:54] LABS: PT Prothrombin Time 13.3 SECONDS (9.5-12.5); Protime INR 1.22
[2023-09-08 17:08] LABS: ALT/SGPT 18 U/L (16-61); Albumin 2.7 g/dL (3.4-5.0); Albumin/Globulin Ratio 0.6 (1.1-1.8); Alkaline Phosphatase 89 U/L (45-117); Anion Gap 9.7 mEq/L (5.0-15.0); BUN Blood Urea Nitrogen 25 mg/dL (7-18); Bicarbonate 26 mEq/L (21-32); Bilirubin Total 0.3 mg/dL (0.2-1.0); Globulin 4.2 g/dL (2.3-3.5); Glomerular Filtration Rate 101 ml/min (=/>90); Glucose Level 112 mg/dL (74-106); Lipase 42 U/L (13-75); NT PRO-BNP 130 pg/mL (<450); Potassium 3.7 mEq/L (3.5-5.1); Protein, Total 6.9 g/dL (6.4-8.2); Sodium Level 137 mEq/L (136-145); Troponin High Sensitivity 6.5 pg/mL (<58.9)
[2023-09-08 17:09] LABS: AST/SGOT < 10 U/L (15-37); Bilirubin Direct < 0.2 mg/dL (0-0.2); Bilirubin Indirect, Calculated 0.1 mg/dL (0.2-0.8)
--- NOTE | 2023-09-08 17:10 | EDPHYS ---
Physician Documentation [facility] Name: Chauncey Dunn Age: 78 yrs Sex: Male : 1945 Arrival Date: 09/08/2023 Time: 14:43 Bed 13 Private MD: ED Physician Bradly Araya HPI: 09/07 16:57 This 78 yrs old Male presents to ER via EMS with complaints of infected kendra wounds, right shoulder, right ankle and foot. 16:57 The patient or guardian complains of decreased range of motion, pain. right shoulder. kendra 16:59 Context: The patient experiences decreased range of motion. Modifying factors: the kendra symptoms are alleviated by nothing. The symptoms are aggravated by movement. Associated signs and symptoms: Pertinent positives: Weakness in right foot and right leg. The patient presents with decreased range of motion, an injury, pain. Context: The problem was sustained at home. bed ridden. The patient presents with decreased range of motion, an injury, pain, swelling, tenderness. Historical: - Allergies: 15:22 Bactrim; as6 - Home Meds: 15:22 Lopressor Oral daily [Active]; Glaucoma drops [Active]; Omeprazole Oral [Active]; as6 Augmentin Oral [Active]; Risperdal Oral [Active]; Simvastatin Oral [Active]; galantamine oral [Active]; Klonopin Oral [Active]; Robitussin Cough and Cold CF oral [Active]; - PMHx: 15:26 Hypertensive disorder; Alzheimer's disease; Glaucoma; as6 - PSHx: 15:27 back; cataract; as6 - Immunization history:: Adult Immunizations up to date. - Infectious Disease History:: Denies. - Social history:: Smoking status: Patient denies any tobacco usage or history of. - Family history:: not pertinent. ROS: 16:59 Constitutional: Negative for fever, chills, and weight loss, Eyes: Negative for injury, kendra pain, redness, and discharge, ENT: Negative for injury, pain, and discharge, Neck: Negative for injury, pain, and swelling, Cardiovascular: Negative for chest pain, palpitations, and edema, Respiratory: Negative for shortness of breath, cough, wheezing, and pleuritic chest pain, Abdomen/GI: Negative for abdominal pain, nausea, vomiting, diarrhea, and constipation, Back: Negative for injury and pain, : Negative for injury, bleeding, discharge, and swelling, Neuro: Negative for headache, weakness, numbness, tingling, and seizure, Psych: Negative for depression, anxiety, suicide ideation, homicidal ideation, and hallucinations, Allergy/Immunology: Negative for hives, rash, and allergies, Endocrine: Negative for neck swelling, polydipsia, polyuria, polyphagia, and marked weight changes, Hematologic/Lymphatic: Negative for swollen nodes, abnormal bleeding, and unusual bruising, 16:59 MS/extremity: Positive for decreased range of motion, erythema, pain, swelling, tenderness, warmth, 16:59 Skin: Positive for erythema, swelling, of the right arm, right leg and left leg, Exam: 16:59 Constitutional: This is a well developed, well nourished patient who is awake, alert, kendra and in no acute distress. Head/Face: Normocephalic, atraumatic. Eyes: Pupils equal round and reactive to light, extra-ocular motions intact. Lids and lashes normal. Conjunctiva and sclera are non-icteric and not injected. Cornea within normal limits. Periorbital areas with no swelling, redness, or edema. ENT: Nares patent. No nasal discharge, no septal abnormalities noted. Tympanic membranes are normal and external auditory canals are clear. Oropharynx with no redness, swelling, or masses, exudates, or evidence of obstruction, uvula midline. Mucous membranes moist. Neck: Trachea midline, no thyromegaly or masses palpated, and no cervical lymphadenopathy. Supple, full range of motion without nuchal rigidity, or vertebral point tenderness. No Meningismus. Chest/axilla: Normal chest wall appearance and motion. Nontender with no deformity. No lesions are appreciated. Cardiovascular: Regular rate and rhythm with a normal S1 and S2. No gallops, murmurs, or rubs. Normal PMI, no JVD. No pulse deficits. Respiratory: Lungs have equal breath sounds bilaterally, clear to auscultation and percussion. No rales, rhonchi or wheezes noted. No increased work of breathing, no retractions or nasal flaring. Abdomen/GI: Soft, non-tender, with normal bowel sounds. No distension or tympany. No guarding or rebound. No evidence of tenderness throughout. Back: No spinal tenderness. No costovertebral tenderness. Full range of motion. Neuro: Awake and alert, GCS 15, oriented to person, place, time, and situation. Cranial nerves II-XII grossly intact. Motor strength 5/5 in all extremities. Sensory grossly intact. Cerebellar exam normal. Normal gait. Psych: Awake, alert, with orientation to person, place and time. Behavior, mood, and affect are within normal limits. 16:59 Skin: Appearance: Color: normal in color, Temperature: normal temperature, Moisture: dry, petechiae, not noted, ecchymosis, not noted, diaphoresis is not appreciated, swelling, that are mild, Vital Signs: 15:20 BP 123 / 57; Pulse 82; Resp 20; Temp 97.6(A); as6 19:21 BP 126 / 67; Pulse 71; Resp 19; Pulse Ox 99% on R/A; tm6 MDM: 14:51 Patient medically screened. kendra 17:02 Differential diagnosis: tendonitis, sprain, cellulitis. Differential Diagnosis altered kendra mental status, sepsis, flu. Data reviewed: vital signs, nurses notes, EMS record, lab test result(s), EKG, radiologic studies, plain films. Consideration of Admission/Observation Patient was admitted/placed on observation. Escalation of care including admission/observation considered. I considered the following discharge prescriptions or medication management in the emergency department Medications were administered in the Emergency Department. See MAR. Independent interpretation of the following test(s) in the Emergency Department EKG: See my EKG interpretation above. Historians other than the Patient: EMS: ems well informed. Care significantly affected by the following chronic conditions: Hypertension, alheimers. Counseling: I had a detailed discussion with the patient and/or guardian regarding the historical points, exam findings, and any diagnostic results supporting the discharge/admit diagnosis, lab results, radiology results, the need for further work-up and treatment in the hospital. 09/07 14:53 Order name: Basic Metabolic Panel; Complete Time: 18:07 [facility] 09/07 14:53 Order name: CBC with Diff; Complete Time: 17:04 [facility] 09/07 14:53 Order name: LFT's; Complete Time: 18:07 [facility] 09/07 14:53 Order name: Magnesium; Complete Time: 18:07 [facility] 09/07 14:53 Order name: NT PRO-BNP; Complete Time: 18:07 [facility] 09/07 14:53 Order name: PT-INR; Complete Time: 17:04 [facility] 09/07 14:53 Order name: Troponin HS; Complete Time: 18:07 [facility] 09/07 14:53 Order name: Lipase; Complete Time: 18:07 [facility] 09/07 14:53 Order name: Urinalysis w/ reflexes [facility] 09/07 14:53 Order name: Blood Culture Adult (2) [facility] 09/07 14:53 Order name: Urine Culture [facility] 09/07 18:26 Order name: CBC with Automated Diff EDMS 09/07 18:26 Order name: CBC with Automated Diff EDMS 09/07 18:26 Order name: CBC with Automated Diff EDMS 09/07 18:26 Order name: CBC with Automated Diff EDMS 09/07 18:26 Order name: Comprehensive Metabolic Panel EDMS 09/07 18:26 Order name: Comprehensive Metabolic Panel EDMS 09/07 18:26 Order name: Comprehensive Metabolic Panel EDMS 09/07 18:26 Order name: Comprehensive Metabolic Panel EDAL 09/07 14:53 Order name: XRAY Chest (1 view); Complete Time: 16:46 [facility] 09/07 14:53 Order name: EKG; Complete Time: 14:54 [facility] 09/07 18:26 Order name: CONS Physician Consult EDAL 09/07 14:53 Order name: Cardiac monitoring; Complete Time: 16:12 [facility] 09/07 14:53 Order name: IV Saline Lock; Complete Time: 17:41 [facility] 09/07 14:53 Order name: Labs collected and sent; Complete Time: 17:41 [facility] 09/07 14:53 Order name: O2 Per Protocol; Complete Time: 16:12 [facility] 09/07 14:53 Order name: O2 Sat Monitoring; Complete Time: 16:12 [facility] Administered Medications: 16:30 Drug: NS 0.9% IV 1000 ml IV at 125 ml/hr continuous Route: IV; Rate: 125 ml/hr; Site: bp right upper arm; 16:45 Drug: Piperacillin-Tazobactam IVPB 3.375 grams IVPB once over 60 mins; (mix in NS 100 bp mL) Route: IVPB; Infused Over: 60 mins; Site: left forearm; Disposition Summary: 09/08/23 17:09 Hospitalization Ordered Notes: Hospitalization Status: Inpatient Admission kendra Provider: Ginger Oneil cha Location: Telemetry/MedSurg (Inpatient) kendra Condition: Fair kendra Problem: new kendra Symptoms: have improved kendra Bed/Room Type: Standard [facility] Room Assignment: 201(09/08/23 18:42) [place] Diagnosis - Cellulitis and acute lymphangitis of other parts of limb kendra - Cellulitis and acute lymphangitis of other sites kendra - Alzheimer's disease, unspecified kendra Forms: - Medication Reconciliation Form kendra - SBAR form kendra - Leadership Thank You Letter [facility] Signatures: Dispatcher [employer] EDMS Molly Chacon Kimberly, RN RN kl Anderson, Corey, MD MD cha Peltier, Brian, RN RN Alexandre Chapa RN RN as6 Corrections: (The following items were deleted from the chart) 14:54 14:53 BASIC METABOLIC PANEL+C.LAB.BRZ ordered. EDMS EDMS 14:54 14:53 CBC+H.LAB.BRZ ordered. EDMS EDMS 14:54 14:53 HEPATIC FUNCTION+C.LAB.BRZ ordered. EDMS EDMS 14:54 14:54 MAGNESIUM+C.LAB.BRZ ordered. EDMS EDMS 14:54 14:54 PROBNP+C.LAB.BRZ ordered. EDMS EDMS 14:54 14:54 PROTIME (+INR)+COAG.LAB.BRZ ordered. EDMS EDMS 14:54 14:54 Troponin High Sensitivity+C.LAB.BRZ ordered. EDMS EDMS 14:54 14:54 LIPASE+C.LAB.BRZ ordered. EDMS EDMS 14:54 14:54 Urinalysis+U.LAB.BRZ ordered. EDMS EDMS 14:54 14:54 BLOOD CULTURE*+BA.LAB.BRZ ordered. EDMS EDMS 14:54 14:54 Urine Culture+BA.LAB.BRZ ordered. EDMS EDMS 18:28 17:09 kendra bd 18:34 18:28 201 bd bd 18:42 18:34 [address]
--- NOTE | 2023-09-08 17:10 | ER ---
Nurse's Notes [facility] Name: Chauncey Dunn Age: 78 yrs Sex: Male : 1945 Arrival Date: 09/08/2023 Time: 14:43 Bed 13 Private MD: Diagnosis: Cellulitis and acute lymphangitis of other parts of limb;Cellulitis and acute lymphangitis of other sites;Alzheimer's disease, unspecified Presentation: 09/07 15:20 Chief complaint: Spouse and/or significant other states: sent by dr Katz for wounds on as6 inner and outer aspect of right ankle and right shoulder has been on Augmentin without improvement. Coronavirus screen: Vaccine status: Patient reports receiving the 2nd dose of the covid vaccine. Ebola Screen: Patient negative for fever greater than or equal to 101.5 degrees Fahrenheit, and additional compatible Ebola Virus Disease symptoms. Initial Sepsis Screen: Does the patient meet any 2 criteria? No. Patient's initial sepsis screen is negative. Does the patient have a suspected source of infection?. Risk Assessment: Do you want to hurt yourself or someone else? Patient reports no desire to harm self or others. 15:20 Method Of Arrival: EMS: [email or web address] as6 15:20 Acuity: ANNEMARIE 3 as6 Triage Assessment: 15:28 General: Appears comfortable, Behavior is agitated, restless. Pain: Unable to use pain as6 scale. Patient is disoriented. Derm: Wound noted dressing to both sides of right ankle and right shoulder. Historical: - Allergies: 15:22 Bactrim; as6 - Home Meds: 15:22 Lopressor Oral daily [Active]; Glaucoma drops [Active]; Omeprazole Oral [Active]; as6 Augmentin Oral [Active]; Risperdal Oral [Active]; Simvastatin Oral [Active]; galantamine oral [Active]; Klonopin Oral [Active]; Robitussin Cough and Cold CF oral [Active]; - PMHx: 15:26 Hypertensive disorder; Alzheimer's disease; Glaucoma; as6 - PSHx: 15:27 back; cataract; as6 - Immunization history:: Adult Immunizations up to date. - Infectious Disease History:: Denies. - Social history:: Smoking status: Patient denies any tobacco usage or history of. - Family history:: not pertinent. Screenin:[address] [facility] ED Fall Risk Assessment (Adult) History of falling in the last 3 months, tm6 including since admission No falls in past 3 months (0 pts) Confusion or Disorientation Yes (5 pts) Intoxicated or Sedated No (0 pts) Impaired Gait Yes (1 pt) Mobility Assist Device Used No (0 pt) Altered Elimination Yes (1 pt) Score/Fall Risk Level 3 or more points = High Risk Oriented to surroundings, Maintained a safe environment, Educated pt \T\ family on fall prevention, incl call for assistance when getting out of bed. Abuse screen: Denies threats or abuse. Denies injuries from another. Nutritional screening: No deficits noted. Tuberculosis screening: No symptoms or risk factors identified. Vital Signs: 15:20 BP 123 / 57; Pulse 82; Resp 20; Temp 97.6(A); as6 19:21 BP 126 / 67; Pulse 71; Resp 19; Pulse Ox 99% on R/A; tm6 ED Course: 14:46 Patient arrived in ED. bd 14:47 Bradly Araya MD is Attending Physician. kendra 15:18 Manfred Russell, REJI is Primary Nurse. bp 15:22 Triage completed. as6 15:37 Arm band placed on. bp 16:14 XRAY Chest (1 view) In Process Unspecified. EDMS 17:08 Ginger Oneil MD is Hospitalizing Provider. kendra 19:17 Patient has correct armband on for positive identification. Bed in low position. Call tm6 light in reach. Side rails up X2. Provided Education on: NPO ordered. Client placed on continuous cardiac and pulse oximetry monitoring. NIBP monitoring applied. Pulse ox on. NIBP on. 19:17 No provider procedures requiring assistance completed. Patient admitted, IV remains in tm6 place. Administered Medications: 16:30 Drug: NS 0.9% IV 1000 ml IV at 125 ml/hr continuous Route: IV; Rate: 125 ml/hr; Site: bp right upper arm; 16:45 Drug: Piperacillin-Tazobactam IVPB 3.375 grams IVPB once over 60 mins; (mix in NS 100 bp mL) Route: IVPB; Infused Over: 60 mins; Site: left forearm; Medication: 19:21 VIS not applicable for this client. tm6 Outcome: 17:09 Decision to Hospitalize by Provider. kendra 19:17 Admitted to Med/surg accompanied by tech, family with patient, via stretcher, room 201, tm6 with chart, 19:17 Condition: stable 19:17 Instructed on the need for admit, 19:22 Patient left the ED. tm6 Signatures: Dispatcher [employer] EDMS Molly Chacon Corey, MD MD cha Peltier, Brian, Alexandre Díaz RN, RN RN as6 Nae Alberto RN RN tm6
[2023-09-08] MEDS ORDERED: PIPERACIL/TAZO 3.375 GM VIAL IV ONE (17:22)
[2023-09-08] MEDS ORDERED: NA CHLORIDE 0.9% 1,000 ML ONE (17:22)
--- NOTE | 2023-09-08 18:25 | P.HP ---
Patient History Date of Service: 09/08/23 Reason for admission: Right shoulder and ankle wound History of Present Illness: Pt is a 78 yo male with past medical history of male with Htn, Alzheimer disease, glaucoma and cataract who presents with infected wound on the right shoulder, right ankle and foot. He was sent to the ER by Dr. Katz for wound debridement. 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 This history is from chart review. The wound caused limited range of motion on the extremities. Nothing makes it better or worse. It was associated with weakness in right foot and right leg. On admission, lab studies show wbc 8.3, Hgb 12.2, K 3.7, NA 137, cr 0.55. At bedside, screamed whne I touched his right ankle. I could not elicit information from him. Allergies sulfamethoxazole [From Bactrim] Allergy (Verified 08/05/22 16:37) Anaphylaxis trimethoprim [From Bactrim] Allergy (Verified 08/05/22 16:37) Anaphylaxis - Past Medical/Surgical History Diabetic: No -: paranoid schizophrenia -: carotid bruit -: glacoma -: Alzheimer's dementia - Social History Alcohol use: No Review of Systems Unremarkable Physical Examination - Physical Exam General: Alert, In no apparent distress, Oriented x3, Confused HEENT: Atraumatic, Normocephalic, PERRLA Neck: Supple, 2+ carotid pulse no bruit, JVD not distended Respiratory: Clear to auscultation bilaterally, Normal air movement Cardiovascular: No edema, Normal pulses, Regular rate/rhythm, Normal S1 S2 Capillary refill: <2 Seconds Gastrointestinal: Normal bowel sounds, Soft and benign, Non-distended Musculoskeletal: No clubbing, No swelling, No contractures Integumentary: Skin breakdown, Skin lesion Neurological: Normal tone, Sensation intact Lymphatics: No axilla or inguinal lymphadenopathy - Studies Laboratory Data (last 24 hrs) 09/08/23 09/08/23 09/08/23 16:30 16:30 16:30 WBC 8.30 Hgb 12.2 L Hct 37.8 L Plt Count 243 PT 13.3 H INR 1.22 Sodium 137 Potassium 3.7 BUN 25 H Creatinine 0.55 L Glucose 112 H Magnesium 2.0 Total Bilirubin 0.3 AST < 10 L ALT 18 Alkaline Phosphatase 89 Lipase 42 Assessment and Plan - Plan Pressure ulcer: Pt has wounds on the right shoulder, right ankle and foot that caused limited range. Will continue iv abx. F/u wound cx. Dr. Katz will take him to the OR for wound debridement. Htn: Continue home med Alzheimers dz: Will continue supportive care. Glaucoma: Continue home med. DVT ppx: SCD Code: full - Advance Directives Does patient have a Living Will: Yes Does patient have a Durable POA for Healthcare: No
[2023-09-08 20:03] VITALS: BMI 23.3
[2023-09-08] MEDS: VANCOMYCIN 1.75 GM in NA CHLORIDE 0.9% 500 ML IVPB ONE (20:05)
[2023-09-08] MEDS: NA CHLORIDE 0.9% 1,000 ML IV SCH (20:05)
[2023-09-08] MEDS: LORazepam 2 MG/ML VIAL IV ONE (22:38)
[2023-09-09 06:14] LABS: Absolute Eosinophils 0.1 K/uL (0-0.5); Absolute Lymphocytes (CBC) 0.8 K/uL (0.7-4.9); Absolute Monocytes 0.5 K/uL (0.1-1.3); Absolute Neutrophil 5.7 K/uL (1.8-8.0); Basophils % 0.2 % (0-1.3); Eosinophils % 0.7 % (0-4.4); Hematocrit 35.1 % (39.6-49.0); Hemoglobin 11.8 g/dL (13.6-17.9); Lymphocytes % 11.5 % (15.3-44.8); MCH 29.3 pg (27.0-35.0); MCHC 33.7 g/dL (32.0-36.0); MCV 86.9 fL (80-100); MPV 6.6 fL (7.6-11.3); Monocytes % 7.5 % (3.3-12.3); Neutrophils % 80.1 % (41.7-73.7); Nucleated Red Blood Cells % 0.1 % (0-0); Platelets 234 thou/uL (152-406); RBC Red Blood Cell Count 4.04 M/uL (4.33-5.43)
[2023-09-09 06:35] LABS: Albumin 2.5 g/dL (3.4-5.0); Albumin/Globulin Ratio 0.7 (1.1-1.8); Anion Gap 8.7 mEq/L (5.0-15.0); Bilirubin Total 0.3 mg/dL (0.2-1.0); Globulin 3.6 g/dL (2.3-3.5); Potassium 3.7 mEq/L (3.5-5.1); Protein, Total 6.1 g/dL (6.4-8.2)
[2023-09-09] MEDS ORDERED: FENTANYL CITR 100 MCG/2 ML ONE (08:15)
[2023-09-09] MEDS ORDERED: propofoL 200 MG/20 ML VIAL IV ONE (08:15)
[2023-09-09] MEDS ORDERED: LIDOCAINE 2% MPF 5 ML VIAL ONE (08:15)
[2023-09-09] MEDS ORDERED: ONDANSETRON 4 MG/2 ML VIAL ONE (08:15)
[2023-09-09] MEDS: VANCOMYCIN 1.5 GM in NA CHLORIDE 0.9% 500 ML IVPB SCH (09:00)
--- NOTE | 2023-09-09 09:04 | P.CNS ---
Date of Consult: 09/09/23 Reason for consult: Wounds to both shoulder and right lower extremity History of present illness: Patient is a 78-year-old gentleman with multiple medical problems who presented to the wound healing center yesterday with multiple wounds on his shoulder and right lower extremity. noticed that there was increasing redness on the right ankle wound. Patient has been on oral antibiotics. Patient has not had any fever or purulent discharge. However, the wounds have gotten slightly worse. Therefore, decision was made to admit the patient for IV antibiotics, check cultures and surgical debridement of these wounds. Patient has no sore throat, runny nose, cough, dizziness, chest pain, fever or chills. Review of systems: Otherwise negative Past medical history: Paranoid schizophrenia hypertension Alzheimer's glaucoma Past surgical history: Cataract surgery and back surgery secondary to trauma Allergies: Bactrim Social history: Patient does not smoke or drink alcohol Family history: Noncontributory Vital signs: Stable, afebrile Physical exam: Awake and confused Head and neck exam: No masses Chest: Clear Heart: S1-S2 Abdomen: Soft Extremity: Slightly contracted, neurovascularly intact Neuro: Nonfocal Skin: Right lateral ankle there is a stage III pressure wound 5.5 x 3.4 x 0.6 cm with 10% bridging, on the right medial ankle there is a 1.6 x 3.0 x 0.0 cm pressure ulcer, left shoulder there is a unstageable 0.3 x 0.2 x 0.1 cm wound and on the right shoulder there is a unstageable 2.4 x 2.0 x 0.3 cm. On the right medial ankle has significant erythema and some warmth around. Diagnostic data: Reviewed Assessment: Nonhealing pressure ulcers on right lower extremity and both shoulders Plan/recommendation: Admit, n.p.o., IV fluid, IV antibiotics and to the OR for surgical debridement of all nonhealing wounds. understands risks, benefits and alternatives and agrees to procedure. Of note, patient was found to have bedbugs in the hospital bed and appropriate precautions and policies are being implemented to address this issue. CC:
[2023-09-09] MEDS: MEDIHONEY 44 ML TOPICAL TUBE TOP ONE (09:56)
[2023-09-09] MEDS: MEDIHONEY 44 ML TOPICAL TUBE TOP SCH (10:00)
--- NOTE | 2023-09-09 10:40 | P.OP ---
Date of Service: 09/09/23 Preop diagnosis: Nonhealing wound right ankle and foot and both shoulders Postop diagnosis: Same Procedure performed: Excisional debridement of multiple wounds: Right lateral ankle 5.5 x 3.4 cm to subcutaneous tissue, right medial ankle 1.6 x 3.0 cm to subcutaneous tissue, left shoulder 0.3 x 0.2 cm to subcutaneous tissue and right shoulder 2.4 x 2.0 to subcutaneous tissue Surgeon: Gerard Katz MD Finish Rolls Operator: None Estimated blood loss: Minimal Specimen: Necrotic tissue for culture and sensitivity Findings: As above Anesthesia: General Complications: None Drains: None Fluids and blood products: Nonapplicable Disposition: Recovery room Operative note: Patient brought to the OR and placed in supine position. General anesthesia began. Patient prepped and draped in usual sterile fashion. Marcaine 0.5% infiltrated locally for postop pain control. Then 15 blade scissors and curette used in the standard fashion to debride the multiple wounds patient had. The right lateral ankle was debrided to subcutaneous tissue with curette and scissors and 15 blade until good bleeding was established which was controlled easily with cautery right medial ankle was debrided to subcutaneous tissue approximate 1.6 x 3.0 cm in a similar fashion as was the left shoulder 0.3 x 0.2 cm and finally the right shoulder 2.4 x 2.0 cm to subcutaneous tissue. All wounds were irrigated and bleeding controlled cautery. Medihoney dressing applied to all wounds. Sterile dressing applied. Patient awakened and taken to recovery room in good general condition. CC:
--- NOTE | 2023-09-09 10:47 | P.PN ---
Subjective Date of Service: 09/09/23 Chief Complaint: Right shoulder and ankle wound Pt is resting comfortably in bed. Dr. Katz took him to the OR this am for wound debridement. He is getting ivvanc. No other complaints. Review of Systems General: Unremarkable Eyes: Unremarkable ENT: Unremarkable Respiratory: Unremarkable Cardiovascular: Unremarkable Gastrointestinal: Unremarkable Genitourinary: Unremarkable Musculoskeletal: Unremarkable Integumentary: Lesions Neurological: Confusion Lymphatics: Unremarkable Physical Examination - Vital Signs Temperature: 98.9 F Blood Pressure: 114/64 Pulse: 82 Respirations: 16 Pulse Ox (%): 95 - Physical Exam General: Alert, In no apparent distress, Confused HEENT: Atraumatic, Normocephalic Neck: Supple, 2+ carotid pulse no bruit, JVD not distended Respiratory: Clear to auscultation bilaterally, Normal air movement Cardiovascular: No edema, Normal pulses, Regular rate/rhythm, Normal S1 S2 Capillary refill: <2 Seconds Gastrointestinal: Normal bowel sounds, Soft and benign, Non-distended Musculoskeletal: No clubbing, No swelling Integumentary: No rashes, Pressure ulcer Neurological: Normal strength at 5/5 x4 extr, Normal tone, Sensation intact Lymphatics: No axilla or inguinal lymphadenopathy - Studies Laboratory Data (last 24 hrs) 09/08/23 09/08/23 09/08/23 16:30 16:30 16:30 WBC 8.30 Hgb 12.2 L Hct 37.8 L Plt Count 243 PT 13.3 H INR 1.22 Sodium 137 Potassium 3.7 BUN 25 H Creatinine 0.55 L Glucose 112 H Magnesium 2.0 Total Bilirubin 0.3 AST < 10 L ALT 18 Alkaline Phosphatase 89 Lipase 42 Assessment And Plan - Plan Pressure ulcer: Pt has wounds on the bilateral right shoulder, right ankle and foot that caused limited range. Will continue iv vanc. F/u wound cx. Dr. Katz took pt the OR today for wound debridement. Htn: Continue home med Alzheimers dz: Will continue supportive care. Glaucoma: Continue home med. DVT ppx: SCD Code: full
[2023-09-09] MEDS: PNEUMOCOCCAL VACCINE 0.5 ML IMVAC ONE (11:17)
[2023-09-09] MEDS: ACETAMINOPHEN 325 MG TABLET PO PRN (22:07)
[2023-09-09] MEDS: JUVEN PACKET PO SCH (22:08)
[2023-09-09] MEDS: MORPHINE 2 MG/ML SYR IV PRN (22:26)
--- NOTE | 2023-09-10 09:11 | PN ---
Date of Progress Note: 09/10/2023 Subjective: Patient is awake, resting comfortably, in no distress. Vital stable. Afebrile. Cultur es are pending. Labs are pending. Objective: Vital Signs: Stable. He is afebrile. Skin: Examination reveals the dressing to be clean, dry, intact. Assessment: Status post debridement of right lower extremity and bilateral shoulder wounds. Recommendations: Continue IV antibiotics. Check cultures and adjust antibiotics accordingly. Wound care as ordered. Hopefully, discharge in 24-48 hours based on the culture reports. Patient probabl y will be discharged on oral antibiotics. /MODL Voice ID: [id number] Report ID: [id number]
[2023-09-10 10:02] LABS: Absolute Eosinophils 0.1 K/uL (0-0.5); Absolute Lymphocytes (CBC) 0.8 K/uL (0.7-4.9); Absolute Monocytes 0.5 K/uL (0.1-1.3); Absolute Neutrophil 5.4 K/uL (1.8-8.0); Basophils % 0.2 % (0-1.3); Eosinophils % 1.4 % (0-4.4); Hematocrit 34.8 % (39.6-49.0); Hemoglobin 11.6 g/dL (13.6-17.9); Lymphocytes % 12.2 % (15.3-44.8); MCH 29.1 pg (27.0-35.0); MCHC 33.2 g/dL (32.0-36.0); MCV 87.5 fL (80-100); MPV 6.7 fL (7.6-11.3); Neutrophils % 78.2 % (41.7-73.7); Platelets 237 thou/uL (152-406); RBC Red Blood Cell Count 3.97 M/uL (4.33-5.43); Red Cell Distribution Width 15.1 % (12.1-15.2)
--- NOTE | 2023-09-10 10:15 | P.PN ---
Subjective Date of Service: 09/10/23 Chief Complaint: Right shoulder and ankle wound Pt is resting comfortably in bed. Dr. Katz took him to the OR this on 09/09/23 for wound debridement. POD#1. Pt has low grade fever last night. Will add zosyn. No other complaints. Review of Systems General: Unremarkable Eyes: Unremarkable ENT: Unremarkable Respiratory: Unremarkable Cardiovascular: Unremarkable Gastrointestinal: Unremarkable Genitourinary: Unremarkable Musculoskeletal: Unremarkable Integumentary: Lesions Neurological: Unremarkable Lymphatics: Unremarkable Physical Examination - Vital Signs Temperature: 98.1 F Blood Pressure: 115/59 Pulse: 83 Respirations: 16 Pulse Ox (%): 94 - Physical Exam General: Alert, In no apparent distress, Confused HEENT: Atraumatic, Normocephalic, PERRLA Neck: Supple, 2+ carotid pulse no bruit, JVD not distended Respiratory: Clear to auscultation bilaterally, Normal air movement Cardiovascular: No edema, Normal pulses, Regular rate/rhythm, Normal S1 S2 Capillary refill: <2 Seconds Gastrointestinal: Normal bowel sounds, Soft and benign, Non-distended Musculoskeletal: No clubbing, No swelling, No contractures Integumentary: No rashes, Pressure ulcer Neurological: Abnormal affect Lymphatics: No axilla or inguinal lymphadenopathy Assessment And Plan - Plan Pressure ulcer: Pt has wounds on the bilateral right shoulder, right ankle and foot that caused limited range. Will continue iv vanc. F/u wound cx. Dr. Katz took pt the OR today for wound debridement. Htn: Continue home med Alzheimers dz: Will continue supportive care. Glaucoma/Cataract: Continue home med. Ok to use meds from home. DVT ppx: SCD Code: full
[2023-09-10 10:26] LABS: Albumin 2.4 g/dL (3.4-5.0); Albumin/Globulin Ratio 0.6 (1.1-1.8); Anion Gap 6.7 mEq/L (5.0-15.0); Bilirubin Total 0.3 mg/dL (0.2-1.0); Globulin 3.8 g/dL (2.3-3.5); Potassium 3.7 mEq/L (3.5-5.1); Protein, Total 6.2 g/dL (6.4-8.2)
[2023-09-10] MEDS: DOCUSATE NA 50 MG/5 ML UCUP PO PRN (11:26)
[2023-09-10] MEDS: VANCOMYCIN 1.5 GM in NA CHLORIDE 0.9% 500 ML IVPB SCH (15:42)
[2023-09-10] MEDS: PIPER TAZO 3.375 GM in NA CHLORIDE 0.9% 100 ML IV SCH (17:28)
[2023-09-10] MEDS ORDERED: HOME MED 1 EA UNK (Simvastatin [Simvastatin] 40 MG Tablet) PO SCH (21:00)
[2023-09-10] MEDS: ENSURE ENLIVE 237 ML CAN PO SCH (21:00)
[2023-09-10] MEDS: BRIMONIDINE TARTRATE OPTH SCH (21:00)
[2023-09-10] MEDS: TRAZODONE 50 MG TABLET PO SCH (21:01)
[2023-09-10] MEDS: clonazePAM 0.5 MG TAB PO SCH (21:01)
[2023-09-10] MEDS: RISPERIDONE 1 MG TABLET PO SCH (21:01)
[2023-09-10] MEDS: TAMSULOSIN 0.4 MG SR CAP PO SCH (21:01)
[2023-09-10] MEDS: ATORVASTATIN 20 MG TAB PO SCH (21:02)
[2023-09-10] MEDS: TIMOLOL MALEATE 0.5% OPTH 5 ML BTL EACH EYE SCH (21:03)
[2023-09-11 08:45] LABS: Absolute Eosinophils 0.2 K/uL (0-0.5); Absolute Lymphocytes (CBC) 1.3 K/uL (0.7-4.9); Absolute Monocytes 0.7 K/uL (0.1-1.3); Absolute Neutrophil 3.8 K/uL (1.8-8.0); Basophils % 0.5 % (0-1.3); Hematocrit 35.3 % (39.6-49.0); Hemoglobin 11.8 g/dL (13.6-17.9); MCHC 33.5 g/dL (32.0-36.0); MCV 86.5 fL (80-100); MPV 6.4 fL (7.6-11.3); Monocytes % 11.2 % (3.3-12.3); Neutrophils % 64.3 % (41.7-73.7); Platelets 239 thou/uL (152-406); RBC Red Blood Cell Count 4.08 M/uL (4.33-5.43); Red Cell Distribution Width 15.1 % (12.1-15.2)
[2023-09-11] MEDS ORDERED: DOXAZOSIN 2 MG TAB PO SCH (09:00)
[2023-09-11] MEDS ORDERED: HOME MED 1 EA UNK (Cholecalciferol (Vitamin D3) [Vitamin D3] 50 MCG Capsule) PO SCH (09:00)
[2023-09-11 09:01] LABS: Albumin 2.3 g/dL (3.4-5.0); Albumin/Globulin Ratio 0.6 (1.1-1.8); Anion Gap 4.7 mEq/L (5.0-15.0); Bilirubin Total 0.4 mg/dL (0.2-1.0); Globulin 3.7 g/dL (2.3-3.5); Potassium 3.7 mEq/L (3.5-5.1)
[2023-09-11] MEDS: VITAMIN D 1000 UNIT TAB PO SCH (09:08)
[2023-09-11] MEDS: METOPROLOL XL 25 MG TAB PO SCH (09:08)
[2023-09-11] MEDS: Meropenem 1000 MG/VIAL IV ONE (09:25)
[2023-09-11] MEDS: Meropenem 1,000 MG in NA CHLORIDE 0.9% 100 ML IV SCH (09:30)
[2023-09-11] MEDS: ACETIC ACID 0.25% IRRIG IRR ONE (10:59)
[2023-09-11 11:09] VITALS: O2SAT 98
--- NOTE | 2023-09-11 12:23 | P.PN ---
Subjective Date of Service: 09/11/23 Chief Complaint: Right shoulder and ankle wound Pt is resting comfortably in bed. Dr. Katz took him to the OR this on 09/09/23 for wound debridement. POD#2. Wound culture is growing Pseudomonas. Will start merrem. No other complaints. Review of Systems is unable to be obtained Physical Examination - Vital Signs Temperature: 97.9 F Blood Pressure: 109/71 Pulse: 66 Respirations: 13 Pulse Ox (%): 98 - Physical Exam General: Alert, In no apparent distress, Oriented x3 HEENT: Atraumatic, Normocephalic, PERRLA Neck: Supple, 2+ carotid pulse no bruit, JVD not distended Respiratory: Clear to auscultation bilaterally, Normal air movement Cardiovascular: No edema, Normal pulses, Regular rate/rhythm, Normal S1 S2 Capillary refill: <2 Seconds Gastrointestinal: Normal bowel sounds, Soft and benign, Non-distended Musculoskeletal: No clubbing, No swelling, No contractures Integumentary: No rashes, No breakdown, No significant lesion Neurological: Normal speech, Normal strength at 5/5 x4 extr, Normal tone Lymphatics: No axilla or inguinal lymphadenopathy Assessment And Plan - Plan Pressure ulcer: Pt has wounds on the bilateral right shoulder, right ankle and foot that caused limited range. Will continue iv merrem. Off iv vanc. F/u wound cx. Dr. Katz took pt the OR today for wound debridement. Wound cx is growing pseudomona. Htn: Continue home med Alzheimers dz: Will continue supportive care. Glaucoma/Cataract: Continue home med. Ok to use meds from home. DVT ppx: SCD Code: full
--- NOTE | 2023-09-11 14:04 | PN ---
Date of Progress Note: 09/11/2023 Subjective: Patient is awake and confused. No change in mental status. Objective: Vital Signs: Stable. He is currently afebrile. Laboratory Data: Reveals a white count of 6,000. There is no left shift. Chemistry reviewed, essen tially unchanged. Cultures reviewed. Patient is growing pseudomonas from his shoulder and ankle wou nds, which is sensitive to gentamicin, tobramycin, and meropenem. His wounds are clean. There is no purulent discharge, but there is buildup of fibrin present. There is still some erythema, but there is no warmth associated with it in the ankle wound. Assessment: Status post debridement of infected wounds on the right ankle and shoulder. Recommendations: We will change the dressing to acetic acid 0.25% wet-to-dry with Rex and we w ill discuss the case with hospitalist team to see if we need Infectious Disease guidance as to the du ration of IV antibiotics. I do believe the patient would benefit from IV antibiotics for at least 10 to 14 days, given the severity of his illness and comorbidities. /MODL Voice ID: [id number] Report ID: [id number]
--- NOTE | 2023-09-11 15:19 | RAD REPORT ---
EXAM DESCRIPTION: RAD - Chest Single View - 09/11/2023 2:57 pm CLINICAL HISTORY: PICC line placement COMPARISON: Chest Single View dated 09/08/2023 FINDINGS: Lines: Right subclavian approach PICC with tip overlying the SVC . Lungs: Worsening airspace disease in the right upper lobe. Pleural: No significant pleural effusions or pneumothorax. Cardiac: The heart size is within normal limits. Mediastinum: Possible hiatal hernia. Bones: No acute fractures. Other: None IMPRESSION: The PICC tip terminates overlying the mid SVC in satisfactory position. Worsening airspa ce disease in the right upper lobe concerning for pneumonia.
[2023-09-11] MEDS: POLYETHYL GLY 3350 17 GM/DOSE PO PRN (16:30)
[2023-09-11] MEDS: Mupirocin NASAL 2 APPL/1 GM TUBE NAS SCH (20:43)
[2023-09-12] MEDS: MORPHINE 4 MG/ML SYR IV PRN (03:28)
[2023-09-12] MEDS: PANTOPRAZOLE 40MG TABLET PO SCH ×2 (06:30→09:31)
[2023-09-12] MEDS: LACTOBACILLUS/ACIDOPHILUS TAB PO SCH (09:31)
--- NOTE | 2023-09-12 09:35 | P.PN ---
Subjective Date of Service: 09/12/23 Chief Complaint: Right shoulder and ankle wound Pt is resting comfortably in bed. Dr. Katz took him to the OR this on 09/09/23 for wound debridement. POD#3. Wound culture is growing Pseudomonas and E. faecalis. Will start merrem and vanc. No other complaints. Review of Systems is unable to be obtained Physical Examination - Vital Signs Temperature: 97.4 F Blood Pressure: 119/74 Pulse: 77 Respirations: 14 Pulse Ox (%): 96 - Physical Exam General: Alert, In no apparent distress, Oriented x3 HEENT: Atraumatic, Normocephalic, PERRLA Neck: Supple, 2+ carotid pulse no bruit, JVD not distended Respiratory: Clear to auscultation bilaterally, Normal air movement Cardiovascular: No edema, Normal pulses, Regular rate/rhythm, Normal S1 S2 Capillary refill: <2 Seconds Gastrointestinal: Normal bowel sounds, Soft and benign, Non-distended Musculoskeletal: No clubbing, No swelling, No contractures Integumentary: No rashes, No breakdown, No significant lesion Neurological: Normal speech, Normal strength at 5/5 x4 extr, Normal tone, Sensation intact Lymphatics: No axilla or inguinal lymphadenopathy Assessment And Plan - Plan Pressure ulcer: Pt has wounds on the bilateral right shoulder, right ankle and foot that caused limited range. Will continue iv merrem and iv vanc. Off iv vanc. F/u wound cx. Dr. Katz took pt the OR for wound debridement. POD #2. Wound cx is growing pseudomona and E. faecalis. Htn: Continue home med Alzheimers dz: Will continue supportive care. Glaucoma/Cataract: Continue home med. Ok to use meds from home. DVT ppx: SCD Code: full
[2023-09-12] MEDS: VANCOMYCIN 1.5 GM in NA CHLORIDE 0.9% 500 ML IVPB SCH (10:32)
--- NOTE | 2023-09-12 10:50 | PN ---
Date of Progress Note: 09/12/2023 Subjective: The patient is awake, resting. The patient had PICC line placed. Vital signs stable, a febrile. Cultures revealed Enterococcus faecalis as well, which does not show sensitivities to merop enem. Objective: Vital Signs: Stable. He is afebrile. Skin: Physical exam shows the dressing to be clean, dry, intact. Assessment: Status post debridement of infected wound in the shoulders and right lower extremity. Recommendations: We will speak with Dr. Oneil regarding adding vancomycin and possibly getting an I D consult. Discharge planning is in progress. Plan of care discussed with the . /MODL Voice ID: [id number] Report ID: [id number]
--- NOTE | 2023-09-13 08:11 | P.PN ---
Subjective Date of Service: 09/13/23 Chief Complaint: Right shoulder and ankle wound Pt is resting comfortably in bed. He was eatingbreakfast when I saw him. Pt had BM overnight. Dr. Katz took him to the OR this on 09/09/23 for wound debridement. POD#4. Wound culture is growing Pseudomonas and E. faecalis. Will continue iv vanc and merrem. No other complaints. Review of Systems is unable to be obtained Physical Examination - Vital Signs Temperature: 97.4 F Blood Pressure: 131/78 Pulse: 73 Respirations: 17 Pulse Ox (%): 93 - Physical Exam General: Alert, In no apparent distress, Confused HEENT: Atraumatic, Normocephalic, PERRLA Neck: Supple, 2+ carotid pulse no bruit Respiratory: Clear to auscultation bilaterally, Normal air movement Cardiovascular: No edema, Normal pulses, Regular rate/rhythm, Normal S1 S2 Capillary refill: <2 Seconds Gastrointestinal: Normal bowel sounds, Soft and benign, Non-distended Musculoskeletal: No clubbing, No swelling Integumentary: No rashes, No breakdown, No significant lesion, No tenderness/swelling Neurological: Normal speech, Normal strength at 5/5 x4 extr, Normal tone, Sensation intact Lymphatics: No axilla or inguinal lymphadenopathy Assessment And Plan - Plan Pressure ulcer: Pt has wounds on the bilateral right shoulder, right ankle and foot that caused limited range. Will continue iv vanc and merrem. F/u wound cx. Dr. Katz took pt the OR for wound debridement. POD #3. Wound cx is growing pseudomona and E. faecalis. Htn: Continue home med Alzheimers dz: Will continue supportive care. Glaucoma/Cataract: Continue home med. Ok to use meds from home. DVT ppx: SCD Code: full
[2023-09-13 09:17] LABS: Anion Gap 6.8 mEq/L (5.0-15.0); Potassium 3.8 mEq/L (3.5-5.1)
[2023-09-13 10:58] LABS: Absolute Eosinophils 0.2 K/uL (0-0.5); Absolute Lymphocytes (CBC) 0.9 K/uL (0.7-4.9); Absolute Monocytes 0.6 K/uL (0.1-1.3); Absolute Neutrophil 4.9 K/uL (1.8-8.0); Basophils % 0.4 % (0-1.3); Eosinophils % 3.4 % (0-4.4); Hemoglobin 11.1 g/dL (13.6-17.9); Lymphocytes % 13.3 % (15.3-44.8); MCH 29.2 pg (27.0-35.0); MCHC 33.8 g/dL (32.0-36.0); MCV 86.5 fL (80-100); MPV 6.2 fL (7.6-11.3); Monocytes % 8.5 % (3.3-12.3); Neutrophils % 74.4 % (41.7-73.7); Platelets 236 thou/uL (152-406); RBC Red Blood Cell Count 3.82 M/uL (4.33-5.43); Red Cell Distribution Width 15.1 % (12.1-15.2)
--- NOTE | 2023-09-13 11:08 | PN ---
Date of Progress Note: 09/13/2023 Subjective: Patient is resting comfortably. No distress. Vital stable. Afebrile. Cultures review ed and discussed with Dr. Oneil yesterday. Dressings are clean, dry, intact. Assessment: Status post debridement of infected wound on the shoulders and right lower extremity. Recommendations: Continue wound care and IV antibiotics as ordered. Discharge planning in place. P atient can follow up in the [facility] upon discharge. MALLORY/ESME Voice ID: [id number] Report ID: [id number]
--- NOTE | 2023-09-13 14:05 | RAD REPORT ---
EXAM DESCRIPTION: RAD - Shoulder Left 2 View - 09/13/2023 1:58 pm CLINICAL HISTORY: pressure ulcer r/o osteomyelitis COMPARISON: No comparisons FINDINGS/IMPRESSION: No acute fracture. No malalignment. High-riding humeral head suggesting rotator cuff pathology. Mild left AC joint degenerative changes. No radiographic evidence of osteomyelitis.
--- NOTE | 2023-09-13 14:05 | RAD REPORT ---
EXAM DESCRIPTION: RAD - Shoulder Right 2 View - 09/13/2023 1:58 pm CLINICAL HISTORY: pressure ulcer r/o osteomyelitis COMPARISON: No comparisons FINDINGS/IMPRESSION: Soft tissue ulceration along the lateral aspect of the right shoulder. No evide nce of underlying osteomyelitis. High-riding humeral head suggesting rotator cuff pathology. No right shoulder fracture. No dislocation. PICC present.
--- NOTE | 2023-09-13 14:06 | RAD REPORT ---
EXAM DESCRIPTION: RAD - Ankle Right 3 View - 09/13/2023 1:58 pm CLINICAL HISTORY: pressure ulcer r/o osteomyelitis COMPARISON: No comparisons FINDINGS/IMPRESSION: No right ankle fracture malalignment. Osteopenia. No radiographic evidence of o steomyelitis. MRI more sensitive in the acute phase.
--- NOTE | 2023-09-13 18:17 | CON ---
History Of Present Illness: This is a 78-year-old male, known to me from previous admission, coming in with significant past medical history of Alzheimer disease, glaucoma, and cataract. The patient i s bed-bound and being taken care by his . I was consulted for evaluation of right shoulder, righ t ankle, and foot wounds. The patient is seen by Dr. Katz from the surgical team who has debrided t he wound and he is growing Pseudomonas aeruginosa and Enterococcus faecalis from the wound culture. The patient is unable to give any history. Most of the history was obtained through medical records and staff and family member by the bedside. Pseudomonas aeruginosa is sensitive to tobramycin, merop enem, and gentamicin. Enterococcus faecalis is sensitive to penicillin, vancomycin, ampicillin. Past Medical History: Alzheimer disease, glaucoma, carotid bruit, paranoid schizophrenia, pressure w ounds of the body because being bed-bound. Allergies: SULFA DRUGS. Medications: Currently, the patient is on vancomycin and meropenem. See MAR for other medications. Social History: Nonsmoker, nondrinker. Family History: Noncontributory. Review of Systems: Unable to obtain. Physical Examination: General: This is a 78-year-old male, lying in bed, is by the bedside. Vital Signs: Temperature 97.5, pulse 70, respirations 16, blood pressure 124/69. HEENT: Unremarkable. Poor dental hygiene. Neck: Supple. Lungs: Basal crackles. Heart: S1, S2. Regular. Abdomen: Soft, nontender. Bowel sounds present. Extremities: Trace edema. Right ankle wounds noted with some slough and necrotic tissue on the late ral aspect. Right shoulder with the deep wound with 50% granulation and 50% slough noted. Laboratory Data: Shows WBC 6.6, hemoglobin 11.1, platelets are 236. BUN of 17, creatinine 0.47. Al bumin level is 2.3. Assessment And Plan: A 78-year-old male being bed-bound and Alzheimer disease, unable to move by him self. has been taking care of him at home, status post debridement of shoulder and right ankle and foot wound. We will recommend to get the x-ray of right shoulder and right foot and ankle as pat ient is uncooperative. CT scan or MRI scan will be quite challenging to obtain at this time. We librado l try to rule out osteomyelitis with x-ray. Continue antibiotic and wound care for 6 weeks. Conside r [facility] or long-term acute care for IV antibiotic and supportive care and wound care. We w ill follow the patient as needed. Thank you Dr. Oneil for consult. MICHAEL/ESME Voice ID: [id number] Report ID: [id number]
[2023-09-13] MEDS: LACTOBACILLUS/ACIDOPHILUS TAB PO SCH (20:02)
--- NOTE | 2023-09-14 07:41 | P.PN ---
Subjective Date of Service: 09/15/23 Chief Complaint: Right shoulder and ankle wound Dr. Katz took him to the OR 09/09/23 for wound debridement. POD#4. Wound culture is growing Pseudomonas and E. faecalis. Will continue iv vanc and merrem. No other complaints. Being followed by Dr. Warren for osteomyelitis wounds, bilateral shoulders, ankle Disposition pending [facility] - Physical Exam General: Alert, In no apparent distress, Confused HEENT: Atraumatic, Normocephalic, PERRLA Neck: Supple, 2+ carotid pulse no bruit Respiratory: Clear to auscultation bilaterally, Normal air movement Cardiovascular: No edema, Normal pulses, Regular rate/rhythm, Normal S1 S2 Capillary refill: <2 Seconds Gastrointestinal: Normal bowel sounds, Soft and benign, Non-distended Musculoskeletal: No clubbing, No swelling Integumentary: No rashes, No breakdown, No significant lesion, No tenderness/swelling Neurological: Normal speech, Normal strength at 5/5 x4 extr, Normal tone, Sensation intact Lymphatics: No axilla or inguinal lymphadenopathy Review of Systems Per HPI Physical Examination - Vital Signs Temperature: 97.5 F Blood Pressure: 119/61 Pulse: 87 Respirations: 18 Pulse Ox (%): 98 - Studies Microbiology Data (last 24 hrs): 09/08/23 16:15 Blood - Blood Aerobic Blood Culture - Final No growth in 5 days. 09/08/23 16:15 Blood - Blood Anaerobic Blood Culture - Final No growth in 5 days. 09/08/23 16:30 Blood - Blood Aerobic Blood Culture - Final No growth in 5 days. 09/08/23 16:30 Blood - Blood Anaerobic Blood Culture - Final No growth in 5 days. Assessment And Plan - Plan Assessment And Plan Right shoulder pressure ulcer: Pt has wounds on the bilateral right shoulder, right ankle and foot that caused limited range. Will continue iv vanc and merrem. F/u wound cx. Dr. Katz took pt the OR for wound debridement. POD #3. Wound cx is growing pseudomona and E. faecalis. Htn: Continue home med Alzheimers dz: Will continue supportive care. Glaucoma/Cataract: Continue home med. Ok to use meds from home. DVT ppx: SCD Code: full Disposition pending SNF Plan to discharge in: 24 Hours Critical Care: No Time Spent Managing PTS Care (In Minutes): 35
--- NOTE | 2023-09-14 13:34 | PN ---
Date of Progress Note: 09/14/2023 Subjective: Patient is awake, resting comfortably. Vitals stable, afebrile. Cultures reviewed, and appreciate Dr. Larry's consultation. Objective: Vital signs: Stable. Afebrile. Wounds: Dressings are clean, dry, and intact. No significant change in the wound. Imaging: Shoulder x-ray does not show any evidence of osteomyelitis. Assessment: Status post debridement of infected wounds in the shoulder and right lower extremity. Recommendations: Continue IV antibiotics as ordered. Wound care as ordered. Patient can follow up with [facility] upon discharge, and discharge planning in progress. Reconsult Eckert rgery as needed. /MODL Voice ID: [id number] Report ID: [id number]
--- NOTE | 2023-09-14 16:11 | PN ---
Subjective: The patient is lying in bed. No new acute event. Chart reviewed. Objective: Vital Signs: Reviewed. Lungs: Basal crackles. Heart: S1, S2. Regular. Abdomen: Soft, nontender. Bowel sounds present. Extremities: Trace edema. Laboratory Data: WBC 6.6, hemoglobin 11, platelets are 236. Chemistry: BUN of 17, creatinine 0.47. Micro data shows the Pseudomonas aeruginosa from right shoulder. Right ankle is showing Pseudomona s aeruginosa. Assessment And Plan: Right shoulder and right ankle and foot wounds. We will continue antibiotic an d wound care. We will follow the patient as needed. No other recommendation. Keep leg elevated. M onitor for signs of infection. NF/MODL Voice ID: [id number] Report ID: [id number]
[2023-09-15] MEDS: DIPHENHYDRAMINE 50 MG/ML VIAL IV PRN (04:10)
--- NOTE | 2023-09-15 07:14 | P.DS ---
Admission Date: 09/08/23 Discharge Date: 09/15/23 Disposition: TRANSFER TO SNF - MEDICAL Discharge Condition: GOOD Reason for Admission: Right shoulder and ankle wound Brief History of Present Illness: Pt is a 78 yo male with past medical history of male with Htn, Alzheimer disease, glaucoma and cataract who presents with infected wound on the right shoulder, right ankle and foot. He was sent to the ER by Dr. Katz for wound debridement. 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 This history is from chart review. The wound caused limited range of motion on the extremities. Nothing makes it better or worse. It was associated with weakness in right foot and right leg. On admission, lab studies show wbc 8.3, Hgb 12.2, K 3.7, NA 137, cr 0.55. At bedside, screamed whne I touched his right ankle. I could not elicit information from him. - Physical Exam General: Alert, In no apparent distress, Oriented x3, Confused HEENT: Atraumatic, Normocephalic, PERRLA Neck: Supple, 2+ carotid pulse no bruit, JVD not distended Respiratory: Clear to auscultation bilaterally, Normal air movement Cardiovascular: No edema, Normal pulses, Regular rate/rhythm, Normal S1 S2 Capillary refill: <2 Seconds Gastrointestinal: Normal bowel sounds, Soft and benign, Non-distended Musculoskeletal: No clubbing, No swelling, No contractures Integumentary: Skin breakdown, Skin lesion Neurological: Normal tone, Sensation intact Lymphatics: No axilla or inguinal lymphadenopathy Hospital Course: 78 yo male with past medical history of male with Htn, Alzheimer disease, glaucoma and cataract who presents with infected wound on the right shoulder, right ankle and foot. A 78-year-old male being bed-bound and Alzheimer disease, unable to move by himself. has been taking care of him at home, status post debridement of shoulder and right ankle and foot wound. He was sent to the ER by Dr. Katz for wound debridement. Pressure ulcer bilateral shoulders, right ankle, status post since incision and drainage Dr. Katz 01/08. [facility], IV antibiotics. Assessment Pressure ulcer bilateral shoulders IV antibiotics by infectious disease Right ankle being treated as osteomyelitis by Dr. Larry Right ankle wounds noted with some slough and necrotic tissue on the lateral aspect. Right shoulder with the deep wound with 50% granulation and 50% slough noted-wound care per infectious disease IV antibiotics per infectious disease-n vancomycin and meropenem. Continue home medicines as previously prescribed GOAL: Clear understanding of disease process INSTRUCTIONS: Physician Discharge Instructions: -Follow-up with PCP in 1 to 2 weeks -Please call Dr. Potts at [phone] if any questions regarding hospital stay -Please call nursing station at [phone] if any nursing or medication questions -Return to the emergency room if symptoms worsen Diet: ADA, low sodium Activity: Fall precautions Vital Signs/Physical Exam: Temp Pulse Resp BP Pulse Ox 97.5 F 87 18 119/61 98 09/15/23 07:08 09/15/23 07:08 09/15/23 07:08 09/15/23 07:08 09/15/23 07:08 Laboratory Data at Discharge: WBC 6.60 thou/uL (4.3-10.9) 09/13/23 10:28 Hgb 11.1 g/dL (13.6-17.9) L 09/13/23 10:28 Hct 33.0 % (39.6-49.0) L 09/13/23 10:28 Plt Count 236 thou/uL (152-406) 09/13/23 10:28 PT 13.3 SECONDS (9.5-12.5) H 09/08/23 16:30 INR 1.22 09/08/23 16:30 Sodium 139 mEq/L (136-145) 09/13/23 08:30 Potassium 3.8 mEq/L (3.5-5.1) 09/13/23 08:30 BUN 17 mg/dL (7-18) 09/13/23 08:30 Creatinine 0.47 mg/dL (0.70-1.30) L 09/13/23 08:30 Glucose 91 mg/dL (74-106) 09/13/23 08:30 Magnesium 2.0 mg/dL (1.6-2.4) 09/08/23 16:30 Total Bilirubin 0.4 mg/dL (0.2-1.0) 09/11/23 08:27 AST 13 U/L (15-37) L 09/11/23 08:27 ALT 18 U/L (16-61) 09/11/23 08:27 Alkaline Phosphatase 74 U/L (45-117) 09/11/23 08:27 Lipase 42 U/L (13-75) 09/08/23 16:30 Home Medications: Brimonidine Tartrate [Lumify] 1 drop EACH EYE BID 09/08/23 Cholecalciferol (Vitamin D3) [Vitamin D3] 1 tab PO DAILY 09/08/23 Collagenase [Santyl Ointment*] 1 sd TOP DAILY 09/08/23 Docusate Liq [Colace Liquid*] 5 ml PO DAILY PRN 09/08/23 Galantamine HBr [Galantamine ER] 8 mg PO BID 09/08/23 Guaifenesin [Cough Syrup] 10 ml PO Q4H PRN 09/08/23 Jb [Jb*] 1 packet PO DAILY 09/08/23 Lactobacillus Acidophilus 1 cap PO DAILY 09/08/23 Lactulose 10 gm PO DAILY PRN 09/08/23 Latanoprost Ophth [Xalatan 0.005%*] 1 drop EACH EYE BEDTIME 09/08/23 Metoprolol Succinate [Toprol Xl*] 12.5 mg PO DAILY 09/08/23 Multivitamin 1 tab PO DAILY 09/08/23 Omeprazole 20 mg PO DAILY 09/08/23 Polyethyl Gly 3350 [Glycolax*] 1 packet PO DAILY PRN 09/08/23 Risperidone [Risperdal] 2 mg PO BEDTIME 09/08/23 Simvastatin 40 mg PO BEDTIME 09/08/23 Sod Chloride/Juvencio/Mo/Pet,Wh [Lubriderm Daily Moisture Lot] 1 sd TOP BID 09/08/23 Tamsulosin HCl 1 cap PO BEDTIME 09/08/23 Timolol 0.5% Opth [Timoptic 0.5% Opth*] 1 drop EACH EYE BID 09/08/23 Trazodone HCl 25 mg PO BEDTIME 09/08/23 Zinc Oxide [Zinc Oxide 20%*] 1 sd TOP TID 09/08/23 clonazePAM [Clonazepam] 0.75 mg PO BEDTIME 09/08/23 Acetaminophen [Tylenol*] 650 mg PO Q6H PRN tab 09/15/23 Atorvastatin Calcium [Lipitor*] 20 mg PO BEDTIME tab 09/15/23 Diphenhydramine [Benadryl*] 25 mg IV Q6H PRN vial 09/15/23 Ensure Enlive 237 ml PO BID can 09/15/23 Jb [Jb*] 1 pkt PO BID 09/15/23 Medihoney [Medihoney Woundcare Gel*] 1 appl TOP DAILY tube 09/15/23 Meropenem-0.9% Sodium Chloride [Meropenem-0.9% NaCl 1 Gram/50] 1 gm IV BID 30 Days #60 ml 09/15/23 Metoprolol Succinate [Toprol Xl*] 12.5 mg PO DAILY tab 09/15/23 Morphine [Morphine Sulfate*] 2 mg IV Q4H PRN syr 09/15/23 Mupirocin Calcium [Bactroban Nasal*] 1 appl BRENDA BID tube 09/15/23 Pharmacy Consult 1 ea XX DAILYPRN PRN ea 09/15/23 Vancomycin/0.9 % Sod Chloride [Vanco 1.5 gm/250 ml-0.9% NaCl] 1.5 gm IV BID 30 Days #60 gm 09/15/23 New Medications: Meropenem-0.9% Sodium Chloride [Meropenem-0.9% NaCl 1 Gram/50] 1 gm IV BID 30 Days #60 ml Vancomycin/0.9 % Sod Chloride [Vanco 1.5 gm/250 ml-0.9% NaCl] 1.5 gm IV BID 30 Days #60 gm Physician Discharge Instructions: DC TO [facility],KEEP PICC LINE FOR OUT PT.ANTIBIOTICS -Follow-up with PCP in 1 to 2 weeks -Follow-up with Cardiology in 1 to 2 weeks -Please call Dr. Potts at [phone] if any questions regarding hospital stay -Please call nursing station at [phone] if any nursing or medication questions -Return to the emergency room if symptoms worsen Follow-up in the wound healing center in my clinic 2 weeks Continue wound care as ordered Diet: AHA Activity: Fall precautions Followup: NONE,NONE [Primary Care Provider] - [facility] Time spent managing pt's care (in minutes): 55
--- NOTE | 2023-09-15 11:48 | RAD REPORT ---
EXAM DESCRIPTION: US - UPPER EXTREMITY VENOUS UNILATE - 09/15/2023 11:21 am CLINICAL HISTORY: Right upper extremity swelling COMPARISON: None. FINDINGS: PICC line in place. Echogenic material consistent with thrombus is present within the right subclavian, right axillary an d right basilic veins No thrombus seen within the right brachial and right cephalic veins Grayscale, color and spectral analysis performed on all vessels IMPRESSION: Acute thrombus right subclavian, right axillary and right basilic veins
[2023-09-15] MEDS: VANCOMYCIN 1.5 GM in NA CHLORIDE 0.9% 500 ML IVPB SCH (12:50)
[2023-09-15] MEDS ORDERED: VANCOMYCIN 1.5 GM in NA CHLORIDE 0.9% 500 ML IVPB SCH (16:00)
[2023-09-15 17:38] VITALS: BP 101/63; TEMP 97.4
== END 2023-09-15 16:04 | DRG 264 ==
LOC: ER 14:43 → ERHOLD 18:20 → 2ND 18:43
PROVIDERS: ADMIT Hospitalist; ATTEND Hospitalist
PROC: 0JBQ0ZZ Excision of Right Foot Subcutaneous Tissue and Fascia, Open Approach (ICD-10-PCS; 2023-09-09)
PROC: 0JBD0ZZ Excision of Right Upper Arm Subcutaneous Tissue and Fascia, Open Approach (ICD-10-PCS; principal; 2023-09-09 09:00)
PROC: 02HV33Z Insertion of Infusion Device into Superior Vena Cava, Percutaneous Approach (ICD-10-PCS; 2023-09-11)
DX: I96 Gangrene, not elsewhere classified (principal); L89.513 Pressure ulcer of right ankle, stage 3; L89.221 Pressure ulcer of left hip, stage 1; L89.129 Pressure ulcer of left upper back, unspecified stage; L89.119 Pressure ulcer of right upper back, unspecified stage; I10 Essential (primary) hypertension; H40.9 Unspecified glaucoma; G30.9 Alzheimer's disease, unspecified; F02.80 Dementia in other diseases classified elsewhere, unspecified severity, without behavioral disturbance, psychotic disturbance, mood disturbance, and anxiety; B95.2 Enterococcus as the cause of diseases classified elsewhere; B96.5 Pseudomonas (aeruginosa) (mallei) (pseudomallei) as the cause of diseases classified elsewhere; Z23 Encounter for immunization; Z88.1 Allergy status to other antibiotic agents; Z74.01 Bed confinement status; Z79.899 Other long term (current) drug therapy
CPT/HCPCS: 36415; 71045; 80048; 80053; 80076; 80202; 82947; 83690; 83735; 83880; 84484; 85025; 85610; 87040; 87070; 87077; 87186; 87205; 90471; 90732; 92526; 92610; 93971; 96374; 99215; 99285; J1200; J2001; J2185; J2270; J2405; J2543; J2704; J3010; J7030; J7040

== ENCOUNTER 2023-09-18 18:49 | Inpatient (IN) | payer OTHER, BC ==
--- OUTSIDE RECORDS SUMMARY | 2023-09-18 19:02 | XMS REPORT | Continuity of Care Document ---
Author Name Unknown Address [address] [facility]. [address] [place] [address] [facility] Address [address] 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 Role Phone DOUGIE GILES Primary Care Physician Unavailab NATALIE Hector Attending Clinician Unavaila Joseph Joe Attending Clinician Unavailable Joseph Smith Attending Clinician [phone] NICANOR LENTZ Attending Clinician Unavailable Nicanor Lentz DO Attending Clinician [phone] [place] MENDOZA, Shira Lynn Attending Clinician Unavail able MARQUES HINES Attending Clinician Unavailable Andreina Albert Attending Clinician [phone] Marlena Rios MD Attending Clinician [phone] Marques Hines DO Attending Clinician [phone] Virginia Soni DO Attending Clinician [phone] V[place] SONI Attending Clinician Unavailab Ena Montenegro RN Attending Clinician Unavailab Juno Hand MD Attending Clinician [phone] OLMAN DAVID Attending Clinician Unavailable Olman Charles Attending Clinician [phone] Doctor Unassigned, [place] Attending Clinician LYDIA Krishnamurthy Attending Clinician Unavailab Marcie Lazar DO Attending Clinician [phone] Ebony LOPEZ, Margie Bowens Attending Clinician + [phone] Chaz Roberts MD Attending Clinician + Natalie Stone Attending Clinician [phone] Fantasma Marroquin MD Attending Clinician [phone] Jean Jarrett MD Attending Clinician [phone] Dougie Giles MD Attending Clinician [phone] DOUGIE GILES Attending Clinician Unavailable MARLENA RIOS Attending Clinician Unavailable Yaritza Aguirre Anavella Attending Cli nician Unavailable JOSEFINA DASILVA Attending Clinician Unavailable Brown LOPEZ, Josefina Attending Clinician [phone] Nurse, [facility] Surgery Gu Attending Clinician Jelani Bray MD Attending Clinician [phone] JEAN JARRETT Attending Clinician Unavailable Liane Negrete RN Attending Clinician Unavailable Only, Ang Db Test Attending Clinician Unavailabl Mannie Vuong DO Attending Clinician [phone] MANNIE WILSON Attending Clinician Unavail able MARGI BOYD Attending Clinician Unavailable Margi Horn Attending Clinician [phone] Justine Collins Attending Clinician + [phone] JUSTINE GARCIA Attending Clinician Unavailable Lab, [facility] Fam Pob I Attending Clinician Unavailab JELANI Álvarez Attending Clinician Unavail able JELANI CORDON Attending Clinician Unavail able JEZ ALEXANDER Attending Clinician Unavailable Compa Attending Clinician Unavailable Joseph MELENDEZ Admitting Clinician Unavailable MARQUES HINES Admitting Clinician Unavailable Marques Hines DO Admitting Clinician [phone] [place] SONI Admitting Clinician Unavailab OLMAN Anglin Admitting Clinician Unavailable CHAZ ROBERTS Admitting Clinician Unavailable Chaz Roberts MD Admitting Clinician + NICANOR LENTZ Admitting Clinician Unavailable MARLENA RIOS Admitting Clinician Unavailable Marlena Rios MD Admitting Clinician [phone] Tomasa Aguirre Anav Admitting Clinician U JOSEFINA Cam Admitting Clinician Unavailable Josefina Dasilva MD Admitting Clinician [phone] JELANI CORDON Admitting Clinician Unavail able Rajjoel_P Admitting Clinician Unavailable Payers Payer Name Policy Type Policy Number Effective Date Expirati on Date Source MEDICARE PART A \\T\\ B [id number] 2002 00:00:00 BCBS TRADITIONAL [id number] 2013 00:00:00 [facility] CCN [id number] 2021 00:00:00 MCR MCR [id number] BCTI BCTI [id number] TWV [id number] [place] [employer] [id number] 2002 00:00:00 [place]PPLEMENT[place] [id number] 2013 00:00:00 Problems Condition Name Condition Details Condition Category Status Onset Date Resolution Date Last Treatment Date Treating Clinician Comments Source Fever, unspecifie d fever cause Fever, unspecifie d fever cause Disease Active 2022-04 00:00: 00 [facility] Wound of right ankle, initial encounter Wound of right ankle, initial encounter Disease Active 2022-04 00:00: 00 [facility] Cellulitis , unspecifie d cellulitis site Cellulitis , unspecifie d cellulitis site Disease Active 11-29 00:00: 00 [facility] Unspecifie d dementia, unspecifie d severity, without behavioral disturbanc e, psychotic disturbanc e, mood disturbanc e, and anxiety Unspecifie d dementia, unspecifie d severity, without behavioral disturbanc e, psychotic disturbanc e, mood disturbanc e, and anxiety Disease Active 11-26 00:00: 00 [facility] 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 11-26 00:00: 00 [facility] Problem related to unspecifie d psychosoci al circumstan vasu Problem related to unspecifie d psychosoci al circumstan vasu Disease Active 11-26 00:00: 00 [facility] Post-traum atic stress disorder, chronic Post-traum atic stress disorder, chronic Disease Active 11-26 00:00: 00 [facility] Fever in adult Fever in adult Disease Active 10-28 00:00: 00 [facility] Pneumonia due to infectious organism Pneumonia due to infectious organism Disease Active 725 00:00: 00 [facility] At risk for aspiration At risk for aspiration Disease Active 20 00:00: 00 [facility] Cellulitis of right ankle Cellulitis of right ankle Disease Active 416 00:00: 00 [facility] Fecal impaction in rectum Fecal impaction in rectum Disease Active 2 00:00: 00 [facility] Pancolitis Pancolitis Disease Active 1 00:00: 00 [facility] Basal cell carcinoma (BCC) of chin Basal cell carcinoma (BCC) of chin Disease Active 2017-04 00:00: 00 Overview: Formattin g of this note might be different from the original. Added automatic ally from request for surgery [id number] [facility] Glaucoma Glaucoma Disease Active 2014-04 00:00: 00 [facility] Hyperlipid emia Hyperlipid emia Disease Active 2014-04 00:00: 00 [facility] Carotid bruit Carotid bruit Disease Active 2014-04 00:00: 00 [facility] Allergies, Adverse Reactions, Alerts Allergy Name Allergy Type Status Severity Reaction(s) Onset Date Inactive Date Treating Clinician Comments Source Sulfamet hoxazole -Trimeth oprim Propensi ty to adverse reaction s Active Unknown - See comments 11-07 00:00: 00 Patients reports the patient is unable to walk when taking medicatio n [facility] SULFAMET HOXAZOLE -TRIMETH OPRIM DRUG Active Unknown-Cmnt 2022-0 8-04 00:00: 00 [facility] Social History Social Habit Start Date Stop Date Quantity Comments Source History SDOH Social Connections Get Together [facility] History SDOH Social Connections [employer] [facility] History SDOH Social Connections Membership [facility] History SDOH Social Connections Meetings [facility] Gender [facility] Alcohol intake 2023 00:00:00 2023 00:00:00 0 /d [facility] Exposure to SARS-CoV-2 (event) 2022-08-17 00:00:00 2022-08-27 14:30:00 Not sure [facility] History of Social function 2022-08-27 00:00:00 2022-08-27 00:00:00 [facility] History SDOH Alcohol Frequency 2022-07-21 00:00:00 2022-07-21 00:00:00 1 [facility] History SDOH Social Connections Phone 2022-07-21 00:00:00 2022-07-21 00:00:00 3 [facility] History SDOH Social Connections Living 2022-07-21 00:00:00 2022-07-21 00:00:00 3 [facility] History SDOH Financial 2022-07-21 00:00:00 2022-07-21 00:00:00 5 [facility] History SDOH Food Worry 2022-07-21 00:00:00 2022-07-21 00:00:00 1 [facility] History SDOH Food Scarcity 2022-07-21 00:00:00 2022-07-21 00:00:00 1 [facility] History SDOH Transport Med 2022-07-21 00:00:00 2022-07-21 00:00:00 2 [facility] History SDOH Transport Non-Med 2022-07-21 00:00:00 2022-07-21 00:00:00 2 [facility] History SDOH Physical Activity DPW 2022-07-21 00:00:00 2022-07-21 00:00:00 2 [facility] History SDOH Physical Activity MPS 2022-07-21 00:00:00 2022-07-21 00:00:00 1 [facility] History SDOH Housing Unable to Pay 2022-07-21 00:00:00 2022-07-21 00:00:00 2 [facility] History SDOH Housing Places Lived 2022-07-21 00:00:00 2022-07-21 00:00:00 1 [facility] History SDOH Housing Homeless Last Year 2022-07-21 00:00:00 2022-07-21 00:00:00 2 [facility] Tobacco use and exposure 2022-07-20 00:00:00 2022-07-20 00:00:00 Smokeless tobacco non-user [facility] History SDOH Alcohol Std Drinks 2022-05-28 00:00:00 2022-05-28 00:00:00 0 [facility] History SDOH Alcohol Binge 2022-05-28 00:00:00 2022-05-28 00:00:00 1 [facility] Sex Assigned At 1945 00:00:00 1945 00:00:00 [facility] Smoking Status Start Date Stop Date Source Never smoked tobacco [facility] Medications Ordered Medication Name Filled Medication [...] Tissue
Duration of Therapy: Other (see Comments) [facility] ciprofloxac in HCl 500 mg tablet 2022-04 00:00: 00 03-01 00:00 :00 No [id number] 500mg Take 1 tablet by mouth in the morning and 1 tablet at noon and 1 tablet in the evening. Do all this for 10 days. [facility] collagenase 250 unit/gram ointment 2022-04 00:00: 00 Yes [id number] Apply to area(s) daily. [facility] Vitamin E (E-PHEROL) 400 unit Tab 2022-04 14:37: 49 Yes 2{tbl} Take 2 tablets by mouth daily. [facility] latanoprost (XALATAN) 0.005 % ophthalmic drops 2022-04 14:37: 49 Yes 1[drp] 1 Drop every evening. [facility] brimonidine (ALPHAGAN) 0.2 % ophthalmic solution 2022-04 14:37: 49 Yes 1[drp] Take 1 Drop in the morning and 1 Drop at noon and 1 Drop in the evening. [facility] melatonin 10 mg Tab 2022-04 14:37: 49 Yes 10mg Take 10 mg by mouth at bedtime. [facility] acetaminoph en 500 mg tablet 2022-04 14:37: 49 Yes 1000mg Take 2 tablets by mouth at bedtime. [facility] mv-mn/iron/ folic acid/herb 190 (VITAMIN D3 COMPLETE ORAL) 2022-04 14:37: 49 Yes 5000U/d Take 5,000 Units/day by mouth daily. [facility] timolol 0.25 % ophthalmic solution 2022-04 14:37: 49 Yes 1[drp] Place 1 Drop in both eyes in the morning and 1 Drop in the evening. [facility] trazodone HCl (TRAZODONE ORAL) 2022-04 14:37: 49 Yes 25mg Take 25 mg by mouth at bedtime. [facility] polyethylen e glycol 3350 (MIRALAX) 17 gram/dose powder 2022-04 14:37: 49 Yes 17g Take 17 g by mouth in the morning. [facility] zinc sulfate 50 mg zinc (220 mg) capsule 2022-04 00:00: 00 Yes [id number] 50mg Take 1 capsule by mouth in the morning and 1 capsule at noon and 1 capsule in the evening. [facility] ascorbic acid, vitamin C, 500 mg tablet 2022-04 00:00: 00 Yes [id number] 500mg Take 1 tablet by mouth in the morning and 1 tablet in the evening. [facility] ibuprofen 400 mg tablet 2022-04 00:00: 00 Yes [id number] 400mg Take 1 tablet by mouth every 6 (six) hours as needed (Alternate with Tylenol for fever). [facility] codeine-gua ifenesin 10-100 mg/5 mL oral solution 2022-04 00:00: 00 02-14 05:59 :00 No [id number] 5mL Take 5 mL by mouth every 6 (six) hours as needed for Cough for up to 7 days. Indication s: acute pain, cough [facility] NaCl 0.9% (NS) IV infusion 1,000 mL 2022-04 20:00: 00 Yes 1000mL at 50 mL/hr, IV Infusion, CONTINUOUS , Starting on Thu02/04/23 at 1500, Until Discontinu ed, Routine [facility] D5W 0.9% NaCl (NS) IV infusion 1,000 mL 2022-04 03:00: 00 Yes 1000mL at 50 mL/hr, 1,000 mL, IV Infusion, CONTINUOUS , Starting on Thu02/03/23 at 2200, Until Discontinu ed, Routine [facility] D5W 0.9% NaCl (NS) IV infusion 1,000 mL 2022-04 02:15: 00 02-04 02:56 :32 No 1000mL at 150 mL/hr, 1,000 mL, IV Infusion, CONTINUOUS , Starting on Thu02/03/23 at 2115, Until Thu02/03/23 at 2156, Routine [facility] risperiDONE (RISPERDAL) tablet 4 mg 2022-04 02:00: 00 Yes 4mg 4 mg, Oral, QHS, First dose (after last modificati on) on Thu02/03/23 at 2100, Until Discontinu ed, Routine [facility] acetaminoph en (TYLENOL) suppository 650 mg 2022-04 21:35: 13 Yes 650mg 650 mg, Rectal, Q6HPRN, Starting on Thu02/03/23 at 1635, Until Discontinu ed, Routine, Temp > 38 C [facility] collagenase (SANTYL) ointment 2022-04 16:45: 00 Yes Topical, DAILY, First dose on Thu02/03/23 at 1145, Until Discontinu ed, Routine [facility] sodium hypochlorit e 0.25% (DAKIN'S SOLUTION) solution 2022-04 16:45: 00 Yes Topical, DAILY, First dose on Thu02/03/23 at 1145, Until Discontinu ed, Routine [facility] polyethylen e glycol 3350 powder 17 g 2022-04 14:00: 00 Yes 17g 17 g, Oral, DAILY, First dose on Thu02/03/23 at 0900, Until Discontinu ed [facility] omeprazole (PRILOSEC) capsule 20 mg 2022-04 14:00: 00 Yes 20mg 20 mg, Oral, DAILY, First dose on Thu02/03/23 at 0900, Until Discontinu ed, Routine [facility] lactobacill us acidophilus tablet 0.5 mg 2022-04 14:00: 00 Yes .5mg 0.5 mg, Oral, DAILY, First dose on Thu02/03/23 at 0900, Until Discontinu ed, Routine [facility] docusate (COLACE) 50 mg/5 mL solution 100 mg 2022-04 14:00: 00 Yes 100mg 100 mg, Oral, DAILY, First dose on Thu02/03/23 at 0900, Until Discontinu ed, Routine [facility] levoFLOXaci n (LEVAQUIN) tablet 750 mg 2022-04 14:00: 00 02-13 14:59 :00 No 750mg 750 mg, Oral, DAILY, 10 doses, First dose on Thu02/03/23 at 0900, Last dose on Thu02/12/23 at 0900, ROCKY
Re ason for Anti-Infec tive: Documented Infection< br>Documen nichole Infection Site: Skin / Soft Tissue
Duration of Therapy: 10 days [facility] sodium hypochlorit e 0.5% (DAKINS) solution 16 oz 2022-04 14:00: 00 02-03 16:41 :37 No 16[oz_a v] 16 oz, Topical, DAILY, First dose on Thu02/03/23 at 0900, Until Discontinu ed, Routine [facility] zinc sulfate (ORAZINC) capsule 50 mg 2022-04 13:00: 00 Yes 50mg 50 mg, Oral, TID, First dose on Thu02/03/23 at 0800, Until Discontinu ed, Routine [facility] ascorbic acid (vitamin C) (VITAMIN C) tablet 500 mg 2022-04 13:00: 00 Yes 500mg 500 mg, Oral, BID, First dose on Thu02/03/23 at 0800, Until Discontinu ed, Routine [facility] codeine-gua ifenesin (ROBITUSSIN AC) 10-100 mg/5 mL oral solution 5 mL 2022-04 05:26: 58 Yes 5mL 5 mL, Oral, Q6HPRN, Starting on Thu02/03/23 at 0026, Until Discontinu ed, Routine, Cough [facility] melatonin (MELATIN) tablet 10.5 mg 2022-04 02:00: 00 Yes 10mg 10.5 mg (rounded from 10 mg), Oral, QHS, First dose on Thu02/02/23 at 2100, Until Discontinu ed [facility] donepeziL (ARICEPT) tablet 10 mg 2022-04 02:00: 00 Yes 10mg 10 mg, Oral, QHS, First dose on Thu02/02/23 at 2100, Until Discontinu ed [facility] doxazosin (CARDURA) tablet 1 mg 2022-04 02:00: 00 Yes 1mg 1 mg, Oral, QHS, First dose on Thu02/02/23 at 2100, Until Discontinu ed, Routine [facility] latanop[facility] (XALATAN) 0.005 % ophthalmic drops 1 Drop 2022-04 02:00: 00 Yes 1[drp] 1 Drop, Both Eyes, QHS, First dose on Thu02/02/23 at 2100, Until Discontinu ed, Routine [facility] traZODone (DESYREL) tablet 25 mg 2022-04 02:00: 00 02-03 05:28 :00 No 25mg 25 mg, Oral, QHS, First dose on Thu02/02/23 at 2100, Until Discontinu ed [facility] brimonidine (ALPHAGAN) 0.2 % ophthalmic solution 1 Drop 2022-04 01:00: 00 Yes 1[drp] 1 Drop, Both Eyes, TID, First dose on Thu02/02/23 at 2000, Until Discontinu ed, Routine [facility] timolol (TIMOPTIC) 0.5 % ophthalmic solution 1 Drop 2022-04 01:00: 00 Yes 1[drp] 1 Drop, Both Eyes, BID, First dose on Thu02/02/23 at 2000, Until Discontinu ed, Routine [facility] amoxicillin -clavulanat e (AUGMENTIN) 875-125 mg per tablet 1 tablet 2022-04 01:00: 00 02-13 01:59 :00 No 1{tbl} 1 tablet, Oral, BID, 20 doses, First dose on Thu02/02/23 at 2000, Last dose on Thu02/12/23 at 0800, Routine
Reason for Anti-Infec tive: Documented Infection< br>Documen nichole Infection Site: Skin / Soft Tissue
Duration of Therapy: 10 days [facility] ibuprofen (IBU) tablet 400 mg 2022-04 23:51: 58 Yes 400mg 400 mg, Oral, Q6HPRN, Starting on Thu02/02/23 at 1851, Until Discontinu ed, Routine, Alternate with Tylenol for fever [facility] acetaminoph en (TYLENOL) tablet 650 mg 2022-04 23:51: 40 02-03 21:35 :40 No 650mg 650 mg, Oral, Q6HPRN, Starting on Thu02/02/23 at 1851, Until Thu02/03/23 at 1635, Routine, Pain (scale 1-3), Temp > 38 C [facility] D5W 0.9% NaCl (NS) IV infusion 1,000 mL 2022-04 22:45: 00 02-04 00:14 :08 No 1000mL at 100 mL/hr, 1,000 mL, IV Infusion, CONTINUOUS , Starting on Thu02/02/23 at 1745, Until Thu02/03/23 at 1914, Routine [facility] acetaminoph en ADULT (OFIRMEV) injection 1,000 mg 2022-04 22:30: 00 02-02 23:02 :00 No 1000mg 1,000 mg, IV Infusion, at 400 mL/hr Administer over 15 Minutes, ONCE, 1 dose, On Thu02/02/23 at 1730, Routine
Indicatio n: Non-periop erative Patient
Approved by: Per Policy (NPO Status) [facility] enoxaparin (LOVENOX) injection 40 mg 2022-04 22:00: 00 Yes 40mg 40 mg, Subcutaneo us, DAILY, First dose on Thu02/02/23 at 1700, Until Discontinu ed, Routine [facility] risperiDONE (RISPERDAL) tablet 4 mg 2022-04 22:00: 00 02-03 17:34 :44 No 4mg 4 mg, Oral, QPM, First dose on Thu02/02/23 at 1700, Until Discontinu ed, Routine [facility] ondansetron (ZOFRAN (PF)) injection 4 mg 2022-04 21:37: 00 Yes 4mg 4 mg, Slow IV Push, Q6HPRN, Starting on Thu02/02/23 at 1637, Until Discontinu ed, Routine, Nausea and Vomiting (N/V) [facility] dextrometho rphan-guaif enesin (ROBITUSSIN DM) 10-100 mg/5 mL solution 10 mL 2022-04 21:31: 42 Yes 10mL 10 mL, Oral, Q6HPRN, Starting on Thu02/02/23 at 1631, Until Discontinu ed, Routine, Cough [facility] sodium hypochlorit e 0.5% (DAKINS) solution 16 oz 2022-04 14:00: 00 Yes 16[oz_a v] 16 oz, Topical, DAILY, First dose on Thu01/30/23 at 0900, Until Discontinu ed, Routine [facility] sodium hypochlorit e 0.5% solution 2022-04 00:00: 00 Yes [id number] 16[oz_a v] Apply 473 mL to area(s) in the morning. [facility] metoprolol succinate XL 25 mg 24 hr tablet 2022-04 00:00: 00 03-02 05:59 :00 No [id number] 12.5mg Take 0.5 tablets by mouth in the morning for 30 days. [facility] Vitamin E (E-PHEROL) 400 unit Tab 2022-04 14:48: 25 Yes 2{tbl} Take 2 tablets by mouth daily. [facility] latanoprost (XALATAN) 0.005 % ophthalmic drops 2022-04 14:48: 25 Yes 1[drp] 1 Drop every evening. [facility] brimonidine (ALPHAGAN) 0.2 % ophthalmic solution 2022-04 14:48: 25 Yes 1[drp] Take 1 Drop in the morning and 1 Drop at noon and 1 Drop in the evening. [facility] melatonin 10 mg Tab 2022-04 14:48: 25 Yes 10mg Take 10 mg by mouth at bedtime. [facility] acetaminoph en 500 mg tablet 2022-04 14:48: 25 Yes 1000mg Take 2 tablets by mouth at bedtime. [facility] mv-mn/iron/ folic acid/herb 190 (VITAMIN D3 COMPLETE ORAL) 2022-04 14:48: 25 Yes 5000U/d Take 5,000 Units/day by mouth daily. [facility] timolol 0.25 % ophthalmic solution 2022-04 14:48: 25 Yes 1[drp] Place 1 Drop in both eyes in the morning and 1 Drop in the evening. [facility] trazodone HCl (TRAZODONE ORAL) 2022-04 14:48: 25 Yes 25mg Take 25 mg by mouth at bedtime. [facility] polyethylen e glycol 3350 (MIRALAX) 17 gram/dose powder 2022-04 14:48: 25 Yes 17g Take 17 g by mouth in the morning. [facility] amoxicillin -clavulanat e (AUGMENTIN) 875-125 mg per tablet 1 tablet 2022-04 01:00: 00 02-12 01:59 :00 No 1{tbl} 1 tablet, Oral, Q12H, 28 doses, First dose on Thu01/28/23 at 2000, Last dose on Thu02/11/23 at 0800, Routine
Reason for Anti-Infec tive: Documented Infection< br>Documen nichole Infection Site: Skin / Soft Tissue
Duration of Therapy: 14 days [facility] levoFLOXaci n (LEVAQUIN) tablet 750 mg 2022-04 20:45: 00 02-11 14:59 :00 No 750mg 750 mg, Oral, DAILY, 14 doses, First dose on Thu01/28/23 at 1545, Last dose on Thu02/10/23 at 0900, Routine
Reason for Anti-Infec tive: Documented Infection< br>Documen nichole Infection Site: Skin / Soft Tissue
Duration of Therapy: 14 days [facility] dextrometho rphan-guaif enesin (ROBITUSSIN DM) 10-100 mg/5 mL solution 10 mL 2022-04 14:33: 23 Yes 10mL 10 mL, Oral, Q6HPRN, Starting on Thu01/28/23 at 0933, Until Discontinu ed, Routine, Cough [facility] levoFLOXaci n 750 mg tablet 2022-04 00:00: 00 02-12 05:59 :00 No [id number] 750mg Take 1 tablet by mouth in the morning for 14 days. [facility] amoxicillin -clavulanat e 875-125 mg per tablet 2022-04 00:00: 00 02-12 05:59 :00 No [id number] 1{tbl} Take 1 tablet by mouth in the morning and 1 tablet in the evening. Do all this for 14 days. [facility] collagenase (SANTYL) ointment 2022-04 14:00: 00 Yes Topical (Apply To Affected Areas), DAILY, First dose on Thu01/27/23 at 0900, Until Discontinu ed, Routine [facility] zolpidem (AMBIEN) tablet 5 mg 2022-04 02:35: 19 Yes 5mg 5 mg, Oral, QHSPRN, Starting on Thu01/26/23 at 2135, Until Discontinu ed, Routine, Insomnia [facility] metoprolol succinate XL (TOPROL XL) tablet 12.5 mg 2022-04 14:00: 00 Yes 12.5mg 12.5 mg, Oral, DAILY, First dose on Thu01/26/23 at 0900, Until Discontinu ed, Routine [facility] Vitamin E (dl, acetate) capsule 400 Units 2022-04 14:00: 00 Yes 400U 400 Units, Oral, DAILY, First dose on Thu01/26/23 at 0900, Until Discontinu ed [facility] polyethylen e glycol 3350 powder 17 g 2022-04 14:00: 00 Yes 17g 17 g, Oral, DAILY, First dose on Thu01/26/23 at 0900, Until Discontinu ed [facility] omeprazole (PRILOSEC) capsule 20 mg 2022-04 14:00: 00 Yes 20mg 20 mg, Oral, DAILY, First dose on Thu01/26/23 at 0900, Until Discontinu ed, Routine [facility] lactobacill us acidophilus tablet 0.5 mg 2022-04 14:00: 00 Yes .5mg 0.5 mg, Oral, DAILY, First dose on Thu01/26/23 at 0900, Until Discontinu ed, Routine [facility] docusate (COLACE) 50 mg/5 mL solution 50 mg 2022-04 14:00: 00 Yes 50mg 50 mg, Oral, DAILY, First dose on Thu01/26/23 at 0900, Until Discontinu ed, Routine [facility] zolpidem (AMBIEN) tablet 5 mg 2022-04 06:30: 00 01-26 05:58 :00 No 5mg 5 mg, Oral, ONCE, 1 dose, On Thu01/26/23 at 0130, Routine [facility] heparin (porcine) injection 5,000 Units 2022-04 03:00: 00 Yes 5000U 5,000 Units, Subcutaneo us, Q8H, First dose on Thu01/25/23 at 2200, Until Discontinu ed, Routine [facility] cefTRIAXone (ROCEPHIN) 1,000 mg in NaCl 0.9% (NS) 100 mL MINI-BAG 2022-04 03:00: 00 01-28 20:36 :08 No 1000mg 1,000 mg, IV Piggyback, Q24H ABX, 7 doses, First dose on Thu01/25/23 at 2200, Last dose on 01/31/23 at 2200, Administer over 30 Minutes, 100 mL
Reas on for Anti-Infec tive: Empiric Therapy for Suspected Infection< br>Empiric Therapy Site: Joint
D uration of therapy: 5 days [facility] traZODone (DESYREL) tablet 25 mg 2022-04 02:00: 00 Yes 25mg 25 mg, Oral, QHS, First dose on Thu01/25/23 at 2100, Until Discontinu ed [facility] timolol (TIMOPTIC) 0.5 % ophthalmic solution 1 Drop 2022-04 02:00: 00 Yes 1[drp] 1 Drop, Both Eyes, BID, First dose on Thu01/25/23 at 2100, Until Discontinu ed, Routine [facility] risperiDONE (RISPERDAL) tablet 4 mg 2022-04 02:00: 00 Yes 4mg 4 mg, Oral, QHS, First dose on 01/25/23 at 2100, Until Discontinu ed, Routine [facility] melatonin (MELATIN) tablet 10.5 mg 2022-04 02:00: 00 Yes 10mg 10.5 mg (rounded from 10 mg), Oral, QHS, First dose on 01/25/23 at 2100, Until Discontinu ed [facility] latanoprost (XALATAN) 0.005 % ophthalmic drops 1 Drop 2022-04 02:00: 00 Yes 1[drp] 1 Drop, Both Eyes, QHS, First dose on 01/25/23 at 2100, Until Discontinu ed, Routine [facility] donepeziL (ARICEPT) tablet 10 mg 2022-04 02:00: 00 Yes 10mg 10 mg, Oral, QHS, First dose on 01/25/23 at 2100, Until Discontinu ed [facility] doxazosin (CARDURA) tablet 1 mg 2022-04 02:00: 00 Yes 1mg 1 mg, Oral, QHS, First dose on 01/25/23 at 2100, Until Discontinu ed, Routine [facility] acetaminoph en (TYLENOL) tablet 1,000 mg 2022-04 02:00: 00 Yes 1000mg 1,000 mg, Oral, QHS, First dose on 01/25/23 at 2100, Until Discontinu ed, Routine [facility] brimonidine (ALPHAGAN) 0.2 % ophthalmic solution 1 Drop 2022-04 02:00: 00 Yes 1[drp] 1 Drop, Both Eyes, BID, First dose on 01/25/23 at 2100, Until Discontinu ed, Routine [facility] simvastatin (ZOCOR) tablet 40 mg 2022-04 02:00: 00 01-27 22:47 :39 No 40mg 40 mg, Oral, QHS, First dose on 01/25/23 at 2100, Until Discontinu ed, Routine [facility] guaiFENesin 100 mg/5 mL solution 200 mg 2022-04 00:20: 03 01-28 14:34 :14 No 200mg 200 mg, Oral, Q4HPRN, Starting on Thu01/25/23 at 1920, Until Thu01/28/23 at 0934, Routine, Cough [facility] vancomycin 1,250 mg in [...]
Du ration of therapy: 72 hours [facility] ondansetron (ZOFRAN (PF)) injection 4 mg 2022-04 22:25: 28 Yes 4mg 4 mg, Slow IV Push, Q6HPRN, Starting on Thu01/25/23 at 1725, Until Discontinu ed, Routine, Nausea and Vomiting (N/V) [facility] acetaminoph en (TYLENOL) tablet 650 mg 2022-04 22:25: 21 Yes 650mg 650 mg, Oral, Q6HPRN, Starting on Thu01/25/23 at 1725, Until Discontinu ed, Routine, Pain (scale 1-3) [facility] ampicillin- sulbactam (UNASYN) 3 g in NaCl 0.9% (NS) 100 mL MINI-BAG 2022-04 20:15: 00 01-25 21:19 :00 No 3g 3 g, IV Piggyback, ONCE, 1 dose, On Thu01/25/23 at 1515, Administer over 30 Minutes, 100 mL
Reas on for Anti-Infec tive: Documented Infection< br>Documen nichole Infection Site: Skin / Soft Tissue
Duration of Therapy: 7 days [facility] Fish Oil-DHA-EPA 1,200-144-2 16 mg Cap 2022-04 18:31: 29 01-25 00:00 :00 No 1{capsu le} Take 1 capsule by mouth daily. [facility] collagenase (SANTYL) ointment 12-01 16:00: 00 Yes Topical (Apply To Affected Areas), DAILY, First dose on Thu12/01/22 at 1100, Until Discontinu ed, Routine [facility] Vitamin E (E-PHEROL) 400 unit Tab 12-01 15:03: 18 Yes 2{tbl} Take 2 tablets by mouth daily. [facility] latanoprost (XALATAN) 0.005 % ophthalmic drops 12-01 15:03: 18 Yes 1[drp] 1 Drop every evening. [facility] brimonidine (ALPHAGAN) 0.2 % ophthalmic solution 12-01 15:03: 18 Yes 1[drp] Take 1 Drop in the morning and 1 Drop at noon and 1 Drop in the evening. [facility] Fish Oil-DHA-EPA 1,200-144-2 16 mg Cap 12-01 15:03: 18 Yes 1{capsu le} Take 1 capsule by mouth daily. [facility] melatonin 10 mg Tab 12-01 15:03: 18 Yes 10mg Take 10 mg by mouth at bedtime. [facility] acetaminoph en 500 mg tablet 12-01 15:03: 18 Yes 1000mg Take 2 tablets by mouth at bedtime. [facility] mv-mn/iron/ folic acid/herb 190 (VITAMIN D3 COMPLETE ORAL) 12-01 15:03: 18 Yes 5000U/d Take 5,000 Units/day by mouth daily. [facility] timolol 0.25 % ophthalmic solution 12-01 15:03: 18 Yes 1[drp] Place 1 Drop in both eyes in the morning and 1 Drop in the evening. [facility] trazodone HCl (TRAZODONE ORAL) 12-01 15:03: 18 Yes 25mg Take 25 mg by mouth at bedtime. [facility] risperiDONE (RISPERDAL) tablet 4 mg 12-01 02:00: 00 Yes 4mg 4 mg, Oral, QHS, First dose (after last modificati on) on 11/30/22 at 2100, Until Discontinu ed, Routine [facility] clindamycin 75 mg/5 mL suspension 12-01 00:00: 00 12-10 04:59 :00 No [id number] 150mg Take 10 mL by mouth 4 (four) times daily for 8 days. [facility] tamsulosin (FLOMAX) capsule 0.4 mg 11-30 14:00: 00 Yes .4mg 0.4 mg, Oral, DAILY, First dose on 11/30/22 at 0900, Until Discontinu ed, Routine [facility] omeprazole (PRILOSEC) capsule 20 mg 11-30 14:00: 00 Yes 20mg 20 mg, Oral, DAILY, First dose on 11/30/22 at 0900, Until Discontinu ed, Routine [facility] docusate (COLACE) 50 mg/5 mL solution 100 mg 11-30 14:00: 00 Yes 100mg 100 mg, Oral, DAILY, First dose on 11/30/22 at 0900, Until Discontinu ed, Routine [facility] glycerin/mi neral oil (AGLO ENEMA) (COMPOUNDED ) Enem 225 mL 11-30 14:00: 00 11-30 14:49 :00 No 225mL 225 mL, Rectal, ONCE, 1 dose, On 11/30/22 at 0900, Routine [facility] timolol (TIMOPTIC) 0.5 % ophthalmic solution 1 Drop 11-30 13:00: 00 Yes 1[drp] 1 Drop, Both Eyes, BID, First dose on 11/30/22 at 0800, Until Discontinu ed, Routine [facility] brimonidine (ALPHAGAN) 0.2 % ophthalmic solution 1 Drop 11-30 13:00: 00 Yes 1[drp] 1 Drop, Both Eyes, TID, First dose on [place] 11/30/22 at 0800, Until Discontinu ed, Routine [facility] clindamycin in 5 % dextrose (CLEOCIN) 600 mg/50 mL IV piggyback RTU 600 mg 11-30 07:15: 00 12-05 07:14 :00 No 600mg 600 mg, IV Piggyback, Q8H ABX, 15 doses, First dose on [place] 11/30/22 at 0215, Last dose on Thu12/04/22 at 1815, Administer over 30 Minutes, 50 mL
Reas on for Anti-Infec tive: Empiric Therapy for Suspected Infection< br>Empiric Therapy Site: Skin / Soft tissue
Duration of therapy: 5 days
Re stricted use approved by: After Hours (for ADC, CLC, LCC ONLY) [facility] NaCl 0.9% (NS) IV infusion 1,000 mL 11-30 03:15: 00 11-30 03:02 :43 No 1000mL at 75 mL/hr, IV Infusion, ONCE, 1 dose, On [facility] 11/29/22 at 2215, Routine [facility] heparin (porcine) injection 5,000 Units 11-30 03:00: 00 Yes 5000U 5,000 Units, Subcutaneo us, Q8H, First dose on [facility] 11/29/22 at 2200, Until Discontinu ed, Routine [facility] risperiDONE (RISPERDAL) tablet 4 mg 11-30 02:30: 00 11-30 22:24 :26 No 4mg 4 mg, Oral, QPM, First dose (after last modificati on) on 11/29/22 at 2130, Until Discontinu ed, Routine [facility] simvastatin (ZOCOR) tablet 40 mg 11-30 02:00: 00 Yes 40mg 40 mg, Oral, QHS, First dose on 11/29/22 at 2100, Until Discontinu ed, Routine [facility] melatonin (MELATIN) tablet 10.5 mg 11-30 02:00: 00 Yes 10mg 10.5 mg (rounded from 10 mg), Oral, QHS, First dose on Thu11/29/22 at 2100, Until Discontinu ed [facility] traZODone (DESYREL) tablet 25 mg 11-30 01:47: 26 Yes 25mg 25 mg, Oral, QHSPRN, Starting on Thu11/29/22 at 2046, Until Discontinu ed, Insomnia [facility] dextrometho rphan-guaif enesin (ROBITUSSIN DM) 10-100 mg/5 mL solution 10 mL 11-30 01:41: 51 Yes 10mL 10 mL, Oral, Q6HPRN, Starting on Thu11/29/22 at 2040, Until Discontinu ed, Routine, Cough [facility] acetaminoph en (TYLENOL) tablet 650 mg 11-30 00:19: 33 Yes 650mg 650 mg, Oral, Q6HPRN, Starting on Thu11/29/22 at 1919, Until Discontinu ed, Routine, Pain (scale 1-3) [facility] NaCl 0.9% (NS) bolus infusion 1,000 mL 11-29 23:45: 00 11-29 23:11 :00 No 1000mL at 999 mL/hr, 1,000 mL, IV Piggyback, ONCE, 1 dose, On Thu11/29/22 at 1845, STAT [facility] LORazepam (ATIVAN) injection 0.5 mg 11-29 23:00: 00 11-29 23:09 :00 No .5mg 0.5 mg, Slow IV Push, ONCE, 1 dose, On Thu11/29/22 at 1800, STAT [facility] lactulose (CEPHULAC) solution 30 mL 11-26 23:00: 00 11-27 01:06 :00 No 30mL 30 mL, Oral, ONCE, 1 dose, On Thu11/26/22 at 1800, ROCKY [facility] iopamidol (ISOVUE 370-500 mL) injection 80 mL 11-26 22:45: 00 11-26 22:45 :00 No [id number] 80mL 80 mL, Intravenou s, ONCE, 1 dose, On Thu11/26/22 at 1745, Routine [facility] NaCl 0.9% (NS) bolus infusion 500 mL 11-26 19:15: 00 11-26 20:30 :00 No 500mL at 999 mL/hr, 500 mL, IV Infusion, ONCE, 1 dose, On Thu11/26/22 at 1415, STAT [facility] doxazosin 2 mg tablet 11-11 00:00: 00 Yes 1mg Take 0.5 tablets by mouth at bedtime. [facility] Vitamin E (E-PHEROL) 400 unit Tab 10-30 14:25: 29 Yes 2{tbl} Take 2 tablets by mouth daily. [facility] latanoprost (XALATAN) 0.005 % ophthalmic drops 10-30 14:25: 29 Yes 1[drp] 1 Drop every evening. [facility] brimonidine (ALPHAGAN) 0.2 % ophthalmic solution 10-30 14:25: 29 Yes 1[drp] Take 1 Drop in the morning and 1 Drop at noon and 1 Drop in the evening. [facility] Fish Oil-DHA-EPA 1,200-144-2 16 mg Cap 10-30 14:25: 29 Yes 1{capsu le} Take 1 capsule by mouth daily. [facility] melatonin 10 mg Tab 10-30 14:25: 29 Yes 10mg Take 10 mg by mouth at bedtime. [facility] acetaminoph en 500 mg tablet 10-30 14:25: 29 Yes 1000mg Take 2 tablets by mouth at bedtime. [facility] mv-mn/iron/ folic acid/herb 190 (VITAMIN D3 COMPLETE ORAL) 10-30 14:25: 29 Yes 5000U/d Take 5,000 Units/day by mouth daily. [facility] timolol 0.25 % ophthalmic solution 10-30 14:25: 29 Yes 1[drp] Place 1 Drop in both eyes in the morning and 1 Drop in the evening. [facility] trazodone HCl (TRAZODONE ORAL) 10-30 14:25: 29 Yes 25mg Take 25 mg by mouth at bedtime. [facility] collagenase (SANTYL) ointment 10-30 14:00: 00 Yes Topical (Apply To Affected Areas), DAILY, First dose (after last modificati on) on Thu10/30/22 at 0900, Until Discontinu ed, Routine [facility] dextrometho rphan-guaif enesin 10-100 mg/5 mL solution 10-30 00:00: 00 Yes [id number] 10mL Take 10 mL by mouth every 6 (six) hours as needed for Cough. [facility] amoxicillin -pot clavulanate (AUGMENTIN) 250-62.5 mg/5 mL suspension 10-30 00:00: 00 11-07 04:59 :00 No [id number] 500mg Take 10 mL by mouth in the morning and 10 mL at noon and 10 mL in the evening. Do all this for 7 days. [facility] predniSONE 5 mg/5 mL solution 10-30 00:00: 00 11-05 04:59 :00 No [id number] 20mg Take 20 mL by mouth in the morning for 5 days. [facility] codeine-gua ifenesin (ROBITUSSIN AC) 10-100 mg/5 mL oral solution 5 mL 10-29 17:49: 39 Yes [id number] 5mL 5 mL, Oral, Q6HPRN, Starting on Thu10/29/22 at 1249, Until Discontinu ed, Routine, Cough [facility] latanoprost (XALATAN) 0.005 % ophthalmic drops 1 Drop 10-29 02:45: 00 Yes 1[drp] 1 Drop, Both Eyes, QPM, First dose on Thu10/28/22 at 2145, Until Discontinu ed, Routine [facility] brimonidine (ALPHAGAN) 0.2 % ophthalmic solution 1 Drop 10-29 02:45: 00 Yes 1[drp] 1 Drop, Both Eyes, BID, First dose on Thu10/28/22 at 2145, Until Discontinu ed, Routine [facility] timolol (TIMOPTIC) 0.25 % ophthalmic solution 1 Drop 10-29 02:45: 00 Yes 1[drp] 1 Drop, Both Eyes, BID, First dose on Thu10/28/22 at 2145, Until Discontinu ed, Routine [facility] traZODone (DESYREL) tablet 25 mg 10-29 02:00: 00 Yes 25mg 25 mg, Oral, QHS, First dose on Thu10/28/22 at 2100, Until Discontinu ed [facility] simvastatin (ZOCOR) tablet 40 mg 10-29 02:00: 00 Yes 40mg 40 mg, Oral, QHS, First dose on Thu10/28/22 at 2100, Until Discontinu ed, Routine [facility] risperiDONE (RISPERDAL) tablet 4 mg 10-28 22:00: 00 Yes 4mg 4 mg, Oral, QPM, First dose on Thu10/28/22 at 1700, Until Discontinu ed, Routine [facility] enoxaparin (LOVENOX) injection 40 mg 10-28 14:00: 00 Yes 40mg 40 mg, Subcutaneo us, DAILY, First dose on Thu10/28/22 at 0900, Until Discontinu ed, Routine [facility] omeprazole (PRILOSEC) capsule 20 mg 10-28 14:00: 00 Yes 20mg 20 mg, Oral, DAILY, First dose on Thu10/28/22 at 0900, Until Discontinu ed, Routine [facility] lactobacill us acidophilus tablet 0.5 mg 10-28 14:00: 00 Yes .5mg 0.5 mg, Oral, DAILY, First dose on Thu10/28/22 at 0900, Until Discontinu ed, Routine [facility] docusate (COLACE) 50 mg/5 mL solution 100 mg 10-28 14:00: 00 Yes 100mg 100 mg, Oral, DAILY, First dose on Thu10/28/22 at 0900, Until Discontinu ed, Routine [facility] ipratropium -albuteroL (DUONEB) 0.5 mg-3 mg(2.5 mg base)/3 mL nebulizer solution 3 mL 10-28 13:00: 00 Yes 3mL 3 mL, Inhalation , QID, First dose on Thu10/28/22 at 0800, Until Discontinu ed, Routine [facility] galantamine (REMINYL) tablet 8 mg 10-28 13:00: 00 Yes 8mg 8 mg, Oral, BID, First dose on Thu10/28/22 at 0800, Until Discontinu ed, Routine [facility] glucagon (GLUCAGEN DIAGNOSTIC KIT) injection 1 mg 10-28 12:15: 24 Yes 1mg 1 mg, Intramuscu lar, PRN, Starting on Thu10/28/22 at 0715, Until Discontinu ed, ROCKY, Blood Glucose < or = 70 mg/dL and patient is NPO, unable to swallow or has mental changes. [facility] dextrose 50 % in water (D50W) injection 25 mL 10-28 12:15: 24 Yes 25mL 25 mL, Slow IV Push, PRN, Starting on Thu10/28/22 at 0715, Until Discontinu ed, ROCKY, Blood Glucose < or = 70 mg/dL and patient is NPO, unable to swallow or has mental status changes. [facility] ondansetron (ZOFRAN (PF)) injection 4 mg 10-28 11:43: 22 Yes 4mg 4 mg, Slow IV Push, Q6HPRN, Starting on Thu10/28/22 at 0643, Until Discontinu ed, Routine, Nausea and Vomiting (N/V) [facility] acetaminoph en (TYLENOL) tablet 650 mg 10-28 11:43: 10 Yes 650mg 650 mg, Oral, Q6HPRN, Starting on Thu10/28/22 at 0643, Until Discontinu ed, Routine, Pain (scale 1-3) [facility] acetaminoph en (TYLENOL) tablet 650 mg 10-28 06:45: 00 10-28 07:25 :00 No 650mg 650 mg, Oral, ONCE, 1 dose, On Thu10/28/22 at 0145, ROCKY [facility] NaCl 0.9% (NS) injection 5 mL 10-28 06:37: 55 Yes 5mL 5 mL, Slow IV Push, PRN - SEE INSTRUCTIO NS, Starting on Thu10/28/22 at 0137, Until Discontinu ed, 10 mL [facility] Vitamin E (E-PHEROL) 400 unit Tab 08-27 14:48: 28 Yes 2{tbl} Take 2 tablets by mouth daily. [facility] latanoprost (XALATAN) 0.005 % ophthalmic drops 08-27 14:48: 28 Yes 1[drp] 1 Drop every evening. [facility] brimonidine (ALPHAGAN) 0.2 % ophthalmic solution 08-27 14:48: 28 Yes 1[drp] Take 1 Drop in the morning and 1 Drop at noon and 1 Drop in the evening. [facility] Fish Oil-DHA-EPA 1,200-144-2 16 mg Cap 08-27 14:48: 28 Yes 1{capsu le} Take 1 capsule by mouth daily. [facility] melatonin 10 mg Tab 08-27 14:48: 28 Yes 10mg Take 10 mg by mouth at bedtime. [facility] acetaminoph en 500 mg tablet 08-27 14:48: 28 Yes 1000mg Take 2 tablets by mouth at bedtime. [facility] mv-mn/iron/ folic acid/herb 190 (VITAMIN D3 COMPLETE ORAL) 08-27 14:48: 28 Yes 5000U/d Take 5,000 Units/day by mouth daily. [facility] timolol 0.25 % ophthalmic solution 08-27 14:48: 28 Yes 1[drp] Place 1 Drop in both eyes in the morning and 1 Drop in the evening. [facility] tamsulosin (FLOMAX) 0.4 mg 24 hr capsule 08-27 00:00: 00 01-25 00:00 :00 No [id number] .4mg Take 1 capsule by mouth in the morning. [facility] docusate 50 mg/5 mL solution 07-27 00:00: 00 Yes [id number] 100mg Take 10 mL by mouth in the morning. [facility] collagenase 250 unit/gram ointment 07-27 00:00: 00 08-07 04:59 :00 No [id number] Apply to affected area(s) daily for 10 days. [facility] risperiDONE (RISPERDAL) tablet 2 mg 07-26 22:00: 00 Yes 2mg 2 mg, Oral, QPM, First dose (after last modificati on) on 07/26/22 at 1700, Until Discontinu ed, Routine [facility] Vitamin E (E-PHEROL) 400 unit Tab 07-26 16:43: 26 Yes 2{tbl} Take 2 tablets by mouth daily. [facility] latanoprost (XALATAN) 0.005 % ophthalmic drops 07-26 16:43: 26 Yes 1[drp] 1 Drop every evening. [facility] brimonidine (ALPHAGAN) 0.2 % ophthalmic solution 07-26 16:43: 26 Yes 1[drp] Take 1 Drop in the morning and 1 Drop at noon and 1 Drop in the evening. [facility] Fish Oil-DHA-EPA 1,200-144-2 16 mg Cap 07-26 16:43: 26 Yes 1{capsu le} Take 1 capsule by mouth daily. [facility] melatonin 10 mg Tab 07-26 16:43: 26 Yes 10mg Take 10 mg by mouth at bedtime. [facility] acetaminoph en 500 mg tablet 07-26 16:43: 26 Yes 1000mg Take 2 tablets by mouth at bedtime. [facility] mv-mn/iron/ folic acid/herb 190 (VITAMIN D3 COMPLETE ORAL) 07-26 16:43: 26 Yes 5000U/d Take 5,000 Units/day by mouth daily. [facility] timolol 0.25 % ophthalmic solution 07-26 16:43: 26 Yes 1[drp] Place 1 Drop in both eyes in the morning and 1 Drop in the evening. [facility] amoxicillin -clavulanat e 400-57 mg/5 mL suspension 07-26 00:00: 00 08-22 04:59 :00 No [id number] 800mg Take 10 mL by mouth in the morning and 10 mL in the evening. Do all this for 52 doses. [facility] SODIUM HYPOCHLORIT E 0.025% Soln solution 07-26 00:00: 00 07-28 04:59 :00 No [id number] 1000mL Apply 1,000 mL to area(s) in the morning for 1 dose. [facility] amoxicillin -clavulanat e (AUGMENTIN) 875-125 mg per tablet 1 tablet 07-25 21:00: 00 08-22 08:59 :00 No 1{tbl} 1 tablet, Oral, Q12H ABX, 55 doses, First dose (after last modificati on) on Thu07/25/22 at 1600, Last dose on Thu08/21/22 at 1600, Routine
Reason for Anti-Infec tive: Documented Infection< br>Documen nichole Infection Site: Skin / Soft Tissue
Duration of Therapy: Other (see Comments) [facility] LORazepam (ATIVAN) injection 1 mg 07-25 18:15: 00 07-25 18:04 :00 No 1mg 1 mg, Slow IV Push, ONCE, 1 dose, On Thu07/25/22 at 1315, Routine [facility] iopamidol (ISOVUE 370-500 mL) injection 80 mL 07-25 18:09: 00 07-25 18:11 :00 No [id number] 80mL 80 mL, Intravenou s, ONCE, 1 dose, On Thu07/25/22 at 1330, Routine [facility] amoxicillin -clavulanat e (AUGMENTIN) 875-125 mg per tablet 1 tablet 07-25 04:00: 00 07-25 12:22 :33 No 1{tbl} 1 tablet, Oral, Q12H, 56 doses, First dose on Thu07/24/22 at 2300, Last dose on Thu08/21/22 at 0800, Routine
Reason for Anti-Infec tive: Documented Infection< br>Documen nichole Infection Site: Skin / Soft Tissue
Duration of Therapy: Other (see Comments) [facility] levalbutero l (XOPENEX) nebulizer solution 0.63 mg 07-25 02:51: 00 Yes .63mg 0.63 mg, Inhalation , TIDPRN, Starting on Thu07/24/22 at 2151, Until Discontinu ed, Routine, Wheezing, Shortness of Breath [facility] ipratropium (ATROVENT) 0.02 % nebulizer solution 0.5 mg 07-25 02:22: 54 Yes .5mg 0.5 mg, Inhalation , Q4HPRN, Starting on Thu07/24/22 at 2121, Until Discontinu ed, Routine, Wheezing, Shortness of Breath, Bronchospa sm, Chest tightness [facility] codeine-gua ifenesin (ROBITUSSIN AC) 10-100 mg/5 mL oral solution 5 mL 07-25 02:22: 34 Yes 5mL 5 mL, Oral, Q6HPRN, Starting on Thu07/24/22 at 2121, Until Discontinu ed, Routine, Cough [facility] sodium hypochlorit e 0.25% (DAKIN'S SOLUTION) solution 07-24 22:00: 00 07-24 21:28 :00 No Topical, ONCE, 1 dose, On Thu07/24/22 at 1700, Routine [facility] fluconazole (DIFLUCAN) Piggyback 200 mg 07-24 16:15: 00 07-26 16:20 :00 No 200mg at 100 mL/hr, IV Piggyback, Q24H ABX, 3 doses, First dose on Thu07/24/22 at 1115, Last dose on Thu07/26/22 at 1115, ROCKY
Do Not Refrigerat e.
[facility] piperacilli n-tazobacta m (ZOSYN) [...] Soft tissue
Duration of therapy: 72 hours [facility] vancomycin (VANCOCIN) 1,000 mg in NaCl [...] Soft Tissue
Duration of Therapy: 7 days [facility] Vitamin E (dl, acetate) capsule 800 Units 07-23 14:00: 00 Yes 800U 800 Units, Oral, DAILY, First dose on Thu07/23/22 at 0900, Until Discontinu ed, Routine [facility] lactobacill us acidophilus tablet 0.5 mg 07-23 14:00: 00 Yes .5mg 0.5 mg, Oral, DAILY, First dose on Thu07/23/22 at 0900, Until Discontinu ed, Routine [facility] docusate (COLACE) 50 mg/5 mL solution 100 mg 07-22 15:15: 00 Yes 100mg 100 mg, Oral, DAILY, First dose on Thu07/22/22 at 1015, Until Discontinu ed, Routine [facility] QUEtiapine (SEROQUEL) tablet 25 mg 07-22 04:30: 00 07-22 03:55 :00 No 25mg 25 mg, Oral, ONCE, 1 dose, On Thu07/21/22 at 2330, Routine [facility] simvastatin (ZOCOR) tablet 40 mg 07-22 02:00: 00 Yes 40mg 40 mg, Oral, QHS, First dose on Thu07/21/22 at 2100, Until Discontinu ed, Routine [facility] latanoprost (XALATAN) 0.005 % ophthalmic drops 1 Drop 07-21 22:00: 00 Yes 1[drp] 1 Drop, Both Eyes, QPM, First dose on Thu07/21/22 at 1700, Until Discontinu ed, Routine [facility] piperacilli n-tazobacta m (ZOSYN) 3.375 g [...] Soft tissue
Duration of therapy: 72 hours [facility] collagenase (SANTYL) ointment 07-21 15:45: 00 Yes Topical (Apply To Affected Areas), DAILY, First dose on Thu07/21/22 at 1045, Until Discontinu ed, Routine [facility] galantamine (REMINYL) tablet 8 mg 07-21 15:15: 00 Yes 8mg 8 mg, Oral, BID, First dose on Thu07/21/22 at 1015, Until Discontinu ed, Routine [facility] tamsulosin (FLOMAX) capsule 0.4 mg 07-21 14:00: 00 Yes .4mg 0.4 mg, Oral, DAILY, First dose on Thu07/21/22 at 0900, Until Discontinu ed, Routine [facility] omeprazole (PRILOSEC) capsule 20 mg 07-21 14:00: 00 Yes 20mg 20 mg, Oral, DAILY, First dose on Thu07/21/22 at 0900, Until Discontinu ed, Routine [facility] enoxaparin (LOVENOX) injection 40 mg 07-21 14:00: 00 Yes 40mg 40 mg, Subcutaneo us, DAILY, First dose on Thu07/21/22 at 0900, Until Discontinu ed, Routine [facility] docusate (COLACE) capsule 100 mg 07-21 14:00: 00 07-22 15:13 :38 No 100mg 100 mg, Oral, DAILY, First dose on Thu07/21/22 at 0900, Until Discontinu ed, Routine [facility] timolol (TIMOPTIC) 0.5 % ophthalmic solution 1 Drop 07-21 13:30: 00 Yes 1[drp] 1 Drop, Both Eyes, BID, First dose on Thu07/21/22 at 0830, Until Discontinu ed, Routine [facility] brimonidine (ALPHAGAN) 0.2 % ophthalmic solution 1 Drop 07-21 13:00: 00 Yes 1[drp] 1 Drop, Both Eyes, TID, First dose on Thu07/21/22 at 0800, Until Discontinu ed, Routine [facility] melatonin (MELATIN) tablet 9 mg 07-21 05:15: 00 Yes 9mg 9 mg, Oral, QHS, First dose (after last modificati on) on Thu07/21/22 at 0015, Until Discontinu ed [facility] acetaminoph en (TYLENOL) tablet 1,000 mg 07-21 05:00: 00 Yes 1000mg 1,000 mg, Oral, QHS, First dose (after last modificati on) on Thu07/21/22 at 0000, Until Discontinu ed, Routine [facility] risperiDONE (RISPERDAL) tablet 4 mg 07-21 05:00: 00 07-26 02:28 :57 No 4mg 4 mg, Oral, QPM, First dose (after last modificati on) on Thu07/21/22 at 0000, Until Discontinu ed, Routine [facility] piperacilli n-tazobacta m (ZOSYN) [...] tissue
Duration of therapy: 72 hours [facility] NaCl 0.9% (NS) bolus infusion 1,000 mL 07-21 03:15: 00 07-21 02:30 :00 No 1000mL at 999 mL/hr, 1,000 mL, IV Piggyback, ONCE, 1 dose, On 07/20/22 at 2215, STAT [facility] ondansetron (ZOFRAN (PF)) injection 4 mg 07-21 02:47: 49 Yes 4mg 4 mg, Slow IV Push, Q6HPRN, Starting on Thu07/20/22 at 2147, Until Discontinu ed, Routine, Nausea and Vomiting (N/V) [facility] HYDROcodone -acetaminop hen (NORCO) 10-325 mg tablet 1 tablet 07-21 02:47: 43 Yes 1{tbl} 1 tablet, Oral, Q6HPRN, Starting on Thu07/20/22 at 2147, Until Discontinu ed, Routine, Pain (scale 7-10) [facility] acetaminoph en (TYLENOL) tablet 650 mg 07-21 02:47: 34 Yes 650mg 650 mg, Oral, Q6HPRN, Starting on Thu07/20/22 at 2147, Until Discontinu ed, Routine, Pain (scale 1-3) [facility] NaCl 0.9% (NS) bolus infusion 1,000 mL 07-18 21:00: 00 07-18 22:16 :00 No 1000mL at 999 mL/hr, 1,000 mL, IV Piggyback, ONCE, 1 dose, On Thu07/18/22 at 1600, STAT [facility] piperacilli n-tazobacta m (ZOSYN) 3.375 g in NaCl 0.9% (NS) 100 mL MINI-BAG 07-18 20:00: 00 07-18 21:09 :00 No 3.375g 3.375 g, IV Piggyback, ONCE, 1 dose, On Thu07/18/22 at 1500, Administer over 30 Minutes, 100 mL
Reas on for Anti-Infec tive: Documented Infection< br>Documen nichole Infection Site: Skin / Soft Tissue
Duration of Therapy: 7 days [facility] cefpodoxime 200 mg tablet 07-18 00:00: 00 08-02 04:59 :00 No [id number] 200mg Take 1 tablet by mouth in the morning and 1 tablet in the evening. Do all this for 14 days. [facility] levoFLOXaci n 750 mg tablet 07-18 00:00: 00 07-29 04:59 :00 No [id number] 750mg Take 1 tablet by mouth every 24 (twenty-fo ur) hours for 10 days. [facility] iopamidol (ISOVUE 370-500 mL) injection 78 mL 06-10 19:45: 00 06-10 19:45 :00 No [id number] 78mL 78 mL, Intravenou s, ONCE, 1 dose, On Thu06/10/22 at 1345, Routine [facility] ondansetron (ZOFRAN (PF)) injection 4 mg 06-10 17:45: 00 06-10 17:13 :00 No 4mg 4 mg, Slow IV Push, ONCE, 1 dose, On Thu06/10/22 at 1145, ROCKY [facility] polyethylen e glycol 3350 powder 17 g 05-28 15:00: 00 Yes 17g 17 g, Oral, DAILY, First dose on Thu05/28/22 at 0900, Until Discontinu ed, Routine [facility] tamsulosin (FLOMAX) capsule 0.4 mg 05-28 15:00: 00 Yes .4mg 0.4 mg, Oral, DAILY, First dose on Thu05/28/22 at 0900, Until Discontinu ed, Routine [facility] omeprazole (PRILOSEC) capsule 20 mg 05-28 15:00: 00 Yes 20mg 20 mg, Oral, DAILY, First dose on Thu05/28/22 at 0900, Until Discontinu ed, Routine [facility] lactobacill us acidophilus tablet 0.5 mg 05-28 15:00: 00 Yes .5mg 0.5 mg, Oral, DAILY, First dose on Thu05/28/22 at 0900, Until Discontinu ed, Routine [facility] Vitamin E (E-PHEROL) 400 unit Tab 05-28 14:50: 45 Yes 2{tbl} Take 2 tablets by mouth daily. [facility] latanoprost (XALATAN) 0.005 % ophthalmic drops 05-28 14:50: 45 Yes 1[drp] 1 Drop every evening. [facility] brimonidine (ALPHAGAN) 0.2 % ophthalmic solution 05-28 14:50: 45 Yes 1[drp] 1 Drop 3 (three) times daily. [facility] Fish Oil-DHA-EPA 1,200-144-2 16 mg Cap 05-28 14:50: 45 Yes 1{capsu le} Take 1 capsule by mouth daily. [facility] melatonin 10 mg Tab 05-28 14:50: 45 Yes 10mg Take 10 mg by mouth at bedtime. [facility] acetaminoph en 500 mg tablet 05-28 14:50: 45 Yes 1000mg Take 1,000 mg by mouth at bedtime. [facility] mv-mn/iron/ folic acid/herb 190 (VITAMIN D3 COMPLETE ORAL) 05-28 14:50: 45 Yes 5000U/d Take 5,000 Units/day by mouth daily. [facility] timolol 0.25 % ophthalmic solution 05-28 14:50: 45 Yes 1[drp] Place 1 Drop in both eyes 2 (two) times daily. [facility] acetaminoph en (TYLENOL) tablet 1,000 mg 05-28 03:00: 00 Yes 1000mg 1,000 mg, Oral, QHS, First dose on Thu05/27/22 at 2100, Until Discontinu ed, Routine [facility] simvastatin (ZOCOR) tablet 40 mg 05-28 03:00: 00 Yes 40mg 40 mg, Oral, QHS, First dose on Thu05/27/22 at 2100, Until Discontinu ed, Routine [facility] melatonin (MELATIN) tablet 9 mg 05-28 03:00: 00 Yes 9mg 9 mg, Oral, QHS, First dose on Thu05/27/22 at 2100, Until Discontinu ed [facility] docusate (COLACE) capsule 100 mg 05-28 02:00: 00 Yes 100mg 100 mg, Oral, BID, First dose on Thu05/27/22 at 2000, Until Discontinu ed, Routine [facility] galantamine (REMINYL) tablet 8 mg 05-28 02:00: 00 Yes 8mg 8 mg, Oral, BID, First dose on Thu05/27/22 at 2000, Until Discontinu ed, Routine [facility] timolol (TIMOPTIC) 0.5 % ophthalmic solution 1 Drop 05-28 02:00: 00 Yes 1[drp] 1 Drop, Both Eyes, BID, First dose on Thu05/27/22 at 2000, Until Discontinu ed [facility] amoxicillin -clavulanat e (AUGMENTIN) 875-125 mg per tablet 05-28 00:00: 00 06-02 05:59 :00 No [id number] 1{tbl} Take 1 tablet by mouth in the morning and 1 tablet in the evening. Do all this for 4 days. [facility] risperiDONE (RISPERDAL) tablet 4 mg 05-27 23:00: 00 Yes 4mg 4 mg, Oral, QPM, First dose on Thu05/27/22 at 1700, Until Discontinu ed, Routine [facility] latanoprost (XALATAN) 0.005 % ophthalmic drops 1 Drop 05-27 23:00: 00 Yes 1[drp] 1 Drop, Both Eyes, QPM, First dose on Thu05/27/22 at 1700, Until Discontinu ed, Routine [facility] piperacilli n-tazobacta m (ZOSYN) 3.375 g [...] Abdominal< br>Duratio n of Therapy: 7 days [facility] lactulose (CEPHULAC) solution 30 mL 05-27 15:45: 00 05-27 16:31 :00 No 30mL 30 mL, Oral, ONCE, 1 dose, On Thu05/27/22 at 0945, Routine [facility] enoxaparin (LOVENOX) injection 40 mg 05-27 15:00: 00 Yes 40mg 40 mg, Subcutaneo us, DAILY, First dose on Thu05/27/22 at 0900, Until Discontinu ed, Routine [facility] aspirin 81 mg EC tablet 05-27 11:23: 35 05-27 00:00 :00 No 81mg Take 81 mg by mouth daily. [facility] piperacilli n-tazobacta m (ZOSYN) 3.375 g in NaCl 0.9% (NS) 100 mL MINI-BAG 05-27 09:30: 00 05-27 10:36 :00 No 3.375g 3.375 g, IV Piggyback, ONCE, 1 dose, On Thu05/27/22 at 0330, Administer over 30 Minutes, 100 mL
Reas on for Anti-Infec tive: Documented Infection< br>Documen nichole Infection Site: Abdominal< br>Duratio n of Therapy: 7 days [facility] NaCl 0.9% (NS) IV infusion 1,000 mL 05-27 04:15: 00 05-27 12:39 :00 No 1000mL at 125 mL/hr, IV Infusion, ONCE, 1 dose, On Thu05/26/22 at 2215, Routine [facility] ondansetron (ZOFRAN (PF)) injection 4 mg 05-27 03:29: 20 Yes 4mg 4 mg, Slow IV Push, Q6HPRN, Starting on Thu05/26/22 at 2129, Until Discontinu ed, Routine, Nausea and Vomiting (N/V) [facility] traMADoL (ULTRAM) tablet 50 mg 05-27 03:29: 11 05-29 03:28 :11 No 50mg 50 mg, Oral, Q8HPRN, Starting on Thu05/26/22 at 2128, Until Thu05/28/22 at 2127, Routine, Pain (scale 4-6) [facility] acetaminoph en (TYLENOL) tablet 650 mg 05-27 03:29: 08 Yes 650mg 650 mg, Oral, Q6HPRN, Starting on Thu05/26/22 at 2128, Until Discontinu ed, Routine, Pain (scale 1-3) [facility] cefTRIAXone (ROCEPHIN) 1,000 mg in NaCl 0.9% (NS) 100 mL MINI-BAG 05-27 02:45: 00 05-27 03:18 :00 No 1000mg 1,000 mg, IV Piggyback, ONCE, 1 dose, On Thu05/26/22 at 2045, Administer over 30 Minutes, 100 mL
Reas on for Anti-Infec tive: Documented Infection< br>Documen nichole Infection Site: Abdominal< br>Duratio n of Therapy: 7 days [facility] ondansetron (ZOFRAN (PF)) injection 4 mg 05-27 00:15: 00 05-27 00:10 :00 No 4mg 4 mg, Slow IV Push, ONCE, 1 dose, On Thu05/26/22 at 1815, ROCKY [facility] ciprofloxac in HCl (CIPRO) tablet 500 mg 05-06 03:00: 00 05-11 02:59 :00 No 500mg 500 mg, Oral, Q12H ABX, 10 doses, First dose on Thu05/05/22 at 2100, Last dose on Thu05/10/22 at 0900, ROCKY
Re ason for Anti-Infec tive: Documented Infection< br>Documen nichole Infection Site: Abdominal< br>Duratio n of Therapy: 7 days [facility] metroNIDAZO LE (FLAGYL) tablet 500 mg 05-06 02:00: 05-11 01:59 :00 No 500mg 500 mg, Oral, Q12H, 10 doses, First dose on 05/05/22 at 2000, Last dose on 05/10/22 at 0800, Routine
Reason for Anti-Infec tive: Documented Infection< br>Documen nichole Infection Site: Abdominal< br>Duratio n of Therapy: 7 days [facility] lactobacill us acidophilus 05-06 00:00: 00 Yes .5mg Take 1 tablet by mouth in the morning. [facility] hydroCHLORO thiazide 12.5 mg tablet 05-06 00:00: 00 05-26 00:00 :00 No 12.5mg Take 1 tablet by mouth in the morning. [facility] Vitamin E (E-PHEROL) 400 unit Tab 05-05 18:25: 31 Yes 2{tbl} Take 2 tablets by mouth daily. [facility] aspirin 81 mg EC tablet 05-05 18:25: 31 Yes 81mg Take 81 mg by mouth daily. [facility] latanoprost (XALATAN) 0.005 % ophthalmic drops 05-05 18:25: 31 Yes 1[drp] 1 Drop every evening. [facility] brimonidine (ALPHAGAN) 0.2 % ophthalmic solution 05-05 18:25: 31 Yes 1[drp] 1 Drop 3 (three) times daily. [facility] Fish Oil-DHA-EPA 1,200-144-2 16 mg Cap 05-05 18:25: 31 Yes 1{capsu le} Take 1 capsule by mouth daily. [facility] melatonin 10 mg Tab 05-05 18:25: 31 Yes 10mg Take 10 mg by mouth at bedtime. [facility] acetaminoph en 500 mg tablet 05-05 18:25: 31 Yes 1000mg Take 1,000 mg by mouth at bedtime. [facility] diphenhydrA MINE (BENADRYL) tablet 25 mg 05-05 10:43: 00 Yes 25mg 25 mg, Oral, Q6HPRN, Starting on 05/05/22 at 0443, Until Discontinu ed, Routine, Itching [facility] ciprofloxac in HCl 500 mg tablet 05-05 00:00: 00 05-26 00:00 :00 No 500mg Take 1 tablet by mouth every 12 (twelve) hours. [facility] metroNIDAZO LE 500 mg tablet 05-05 00:00: 00 05-26 00:00 :00 No 500mg Take 1 tablet by mouth every 12 (twelve) hours. [facility] diphenhydrA MINE (BENADRYL) tablet 25 mg 05-04 16:15: 00 05-04 16:25 :00 No 25mg 25 mg, Oral, ONCE, 1 dose, On 05/04/22 at 1015, Routine [facility] simvastatin (ZOCOR) tablet 40 mg 05-04 03:00: 00 Yes 40mg 40 mg, Oral, QHS, First dose on 05/03/22 at 2100, Until Discontinu ed, Routine [facility] risperiDONE (RISPERDAL) tablet 2 mg 05-03 23:00: 00 Yes 2mg 2 mg, Oral, QPM, First dose (after last modificati on) on 05/03/22 at 1700, Until Discontinu ed, Routine [facility] latanoprost (XALATAN) 0.005 % ophthalmic drops 1 Drop 05-03 23:00: 00 Yes 1[drp] 1 Drop, Both Eyes, QPM, First dose on 05/03/22 at 1700, Until Discontinu ed, Routine [facility] lactobacill us acidophilus tablet 0.5 mg 05-03 18:00: 00 Yes .5mg 0.5 mg, Oral, DAILY, First dose on 05/03/22 at 1200, Until Discontinu ed, Routine [facility] enoxaparin (LOVENOX) injection 40 mg 05-03 15:00: 00 Yes 40mg 40 mg, Subcutaneo us, DAILY, First dose on 05/03/22 at 0900, Until Discontinu ed, Routine [facility] tamsulosin (FLOMAX) capsule 0.4 mg 05-03 15:00: 00 Yes .4mg 0.4 mg, Oral, DAILY, First dose on 05/03/22 at 0900, Until Discontinu ed, Routine [facility] omeprazole (PRILOSEC) capsule 20 mg 05-03 15:00: 00 Yes 20mg 20 mg, Oral, DAILY, First dose on 05/03/22 at 0900, Until Discontinu ed, Routine [facility] hydroCHLORO thiazide (ESIDRIX) tablet 12.5 mg 05-03 15:00: 00 Yes 12.5mg 12.5 mg, Oral, DAILY, First dose on 05/03/22 at 0900, Until Discontinu ed [facility] aspirin EC tablet 81 mg 05-03 15:00: 00 Yes 81mg 81 mg, Oral, DAILY, First dose on 05/03/22 at 0900, Until Discontinu ed, Routine [facility] brimonidine (ALPHAGAN) 0.2 % ophthalmic solution 1 Drop 05-03 14:00: 00 Yes 1[drp] 1 Drop, Both Eyes, TID, First dose on 05/03/22 at 0800, Until Discontinu ed, Routine [facility] metroNIDAZO LE in NaCl [...] Abdominal< br>Duratio n of Therapy: 7 days [facility] ciprofloxac in in 5 % dextrose (CIPRO) piggyback 400 mg 05-03 06:15: 00 05-05 20:29 :12 No 400mg 400 mg, IV Piggyback, at 200 mL/hr Administer over 60 Minutes, Q12H ABX, First dose on Thu05/03/22 at 0015, Until Discontinu ed, Routine
Reason for Anti-Infec tive: Documented Infection< br>Docu mented Infection Site: Abdominal< br>Duratio n of Therapy: 7 days [facility] haloperidol lactate (HALDOL) injection 2.5 mg 05-03 05:53: 13 Yes 2.5mg 2.5 mg, Slow IV Push, PRN, 2 doses, Starting on Thu05/02/22 at 2353, Until Discontinu ed, Routine, Psychosis [facility] galantamine (REMINYL) tablet 8 mg 05-03 05:15: 00 Yes 8mg 8 mg, Oral, BID, First dose on Thu05/02/22 at 2315, Until Discontinu ed, Routine
Reason for non-formul ramsey use: PATIENT CURRENTLY TAKING NONFORMULA RY PRODUCT [facility] melatonin (MELATIN) tablet 9 mg 05-03 05:15: 00 Yes 9mg 9 mg, Oral, QHS, First dose (after last modificati on) on Thu05/02/22 at 2315, Until Discontinu ed [facility] risperiDONE (RISPERDAL) tablet 4 mg 05-03 05:15: 00 05-03 05:26 :23 No 4mg 4 mg, Oral, QPM, First dose (after last modificati on) on Thu05/02/22 at 2315, Until Discontinu ed, Routine [facility] ondansetron (ZOFRAN (PF)) injection 4 mg 05-03 04:53: 40 Yes 4mg 4 mg, Slow IV Push, Q6HPRN, Starting on Thu05/02/22 at 2253, Until Discontinu ed, Routine, Nausea and Vomiting (N/V) [facility] traMADoL (ULTRAM) tablet 50 mg 05-03 04:53: 31 05-05 04:52 :31 No 50mg 50 mg, Oral, Q8HPRN, Starting on Thu05/02/22 at 2253, Until 05/04/22 at 2252, Routine, Pain (scale 4-6) [facility] acetaminoph en (TYLENOL) tablet 650 mg 05-03 04:53: 29 Yes 650mg 650 mg, Oral, Q6HPRN, Starting on Thu05/02/22 at 2253, Until Discontinu ed, Routine, Pain (scale 1-3) [facility] iopamidol (ISOVUE 370-500 mL) injection 100 mL 05-03 02:45: 00 05-03 01:49 :00 No [id number] 100mL 100 mL, Intravenou s, ONCE, 1 dose, On Thu05/02/22 at 2045, Routine [facility] NaCl 0.9% (NS) bolus infusion 1,000 mL 05-03 01:45: 00 05-03 00:44 :00 No 1000mL at 999 mL/hr, 1,000 mL, IV Piggyback, ONCE, 1 dose, On Thu05/02/22 at 1945, STAT [facility] hydroCHLORO thiazide 12.5 mg capsule 05-02 22:53: 50 05-02 00:00 :00 No 12.5mg Take 12.5 mg by mouth daily. [facility] amoxicillin 500 mg tablet 04-18 00:00: 00 04-29 05:59 :00 No [id number] 500mg Take 1 tablet by mouth in the morning and 1 tablet in the evening. Do all this for 10 days. [facility] OMEPRAZOLE 20 mg capsule 10-24 00:00: 00 Yes [id number] Take 1 capsule by mouth once daily [facility] SIMVASTATIN 40 mg tablet 09-24 00:00: 00 01-29 00:00 :00 No [id number] TAKE 1 TABLET BY MOUTH ONCE DAILY AT BEDTIME [facility] galantamine 8 mg tablet 07-31 00:00: 00 Yes [id number] 8mg Take 1 tablet by mouth 2 (two) times daily. [facility] tamsulosin (FLOMAX) 0.4 mg 24 hr capsule 07-29 00:00: 00 08-27 00:00 :00 No [id number] .4mg Take 1 capsule by mouth daily. [facility] hydroCHLORO thiazide 12.5 mg capsule 2020-04 15:34: 14 Yes 12.5mg Take 12.5 mg by mouth daily. [facility] Vitamin E (E-PHEROL) 400 unit Tab 08-28 14:21: 44 Yes 1{tbl} Take 1 tablet by mouth daily. [facility] aspirin 81 mg EC tablet 08-28 14:21: 44 Yes 81mg Take 81 mg by mouth daily. [facility] latanoprost (XALATAN) 0.005 % ophthalmic drops 08-28 14:21: 44 Yes 1[drp] 1 Drop every evening. [facility] galantamine 12 mg tablet 08-28 00:00: 00 05-02 00:00 :00 No [id number] 12mg Take 1 tablet by mouth 2 (two) times daily. [facility] risperiDONE (RISPERDAL) 2 mg tablet 2019-04 00:00: 00 Yes [id number] 4mg Take 2 tablets by mouth every evening. [facility] brimonidine (ALPHAGAN) 0.2 % ophthalmic solution 2017-04 13:40: 32 Yes 1[drp] 1 Drop 3 (three) times daily. [facility] Fish Oil-DHA-EPA 1,200-144-2 16 mg Cap 2017-04 13:40: 32 Yes 1{capsu le} Take 1 capsule by mouth daily. [facility] Immunizations Ordered Immunization Name Filled Immunization Name Date Status Comments Source Influenza High Dose 2021-12-27 00:00:00 Completed [facility] Influenza High Dose 2021-12-27 00:00:00 Completed [facility] Influenza High Dose 2021-12-27 00:00:00 Completed [facility] Influenza High Dose 2021-12-27 00:00:00 Completed [facility] Influenza High Dose 2021-12-27 00:00:00 Completed [facility] Influenza High Dose 2021-12-27 00:00:00 Completed [facility] Influenza High Dose 2021-12-27 00:00:00 Completed [facility] Influenza High Dose 2021-12-27 00:00:00 Completed [facility] Influenza High Dose 2021-12-27 00:00:00 Completed [facility] Influenza High Dose 2021-12-27 00:00:00 Completed [facility] Influenza High Dose 2021-12-27 00:00:00 Completed [facility] Influenza High Dose 2021-12-27 00:00:00 Completed [facility] Influenza High Dose 2021-12-27 00:00:00 Completed [facility] Influenza High Dose 2021-12-27 00:00:00 Completed [facility] Influenza High Dose 2021-12-27 00:00:00 Completed [facility] Influenza High Dose 2021-12-27 00:00:00 Completed [facility] Influenza High Dose 2021-12-27 00:00:00 Completed [facility] Influenza High Dose 2021-12-27 00:00:00 Completed [facility] Influenza High Dose 2021-12-27 00:00:00 Completed [facility] Influenza High Dose 2021-12-27 00:00:00 Completed [facility] Influenza High Dose 2021-12-27 00:00:00 Completed [facility] Influenza High Dose 2021-12-27 00:00:00 Completed [facility] Influenza High Dose 2021-12-27 00:00:00 Completed [facility] Influenza High Dose 2021-12-27 00:00:00 Completed [facility] Influenza High Dose 2021-12-27 00:00:00 Completed [facility] Influenza High Dose 2021-12-27 00:00:00 Completed [facility] Influenza Virus Vaccine 2021-12-18 00:00:00 Completed [facility] Influenza Virus Vaccine 2021-12-18 00:00:00 Completed [facility] Influenza Virus Vaccine 2021-12-18 00:00:00 Completed [facility] Influenza Virus Vaccine 2021-12-18 00:00:00 Completed [facility] Influenza Virus Vaccine 2021-12-18 00:00:00 Completed [facility] Influenza Virus Vaccine 2021-12-18 00:00:00 Completed [facility] Influenza Virus Vaccine 2021-12-18 00:00:00 Completed [facility] Influenza Virus Vaccine 2021-12-18 00:00:00 Completed [facility] Influenza Virus Vaccine 2021-12-18 00:00:00 Completed [facility] Influenza Virus Vaccine 2021-12-18 00:00:00 Completed [facility] SARS-COV-2 COVID-19 VACCINE - (MODERNA) 2021-09-20 00:00:00 Completed [facility] SARS-COV-2 COVID-19 VACCINE - (MODERNA) 2021-09-20 00:00:00 Completed [facility] SARS-COV-2 COVID-19 VACCINE - (MODERNA) 2021-09-20 00:00:00 Completed [facility] SARS-COV-2 COVID-19 VACCINE - (MODERNA) 2021-09-20 00:00:00 Completed [facility] SARS-COV-2 COVID-19 VACCINE - (MODERNA) 2021-09-20 00:00:00 Completed [facility] SARS-COV-2 COVID-19 VACCINE - (MODERNA) 2021-09-20 00:00:00 Completed [facility] SARS-COV-2 COVID-19 VACCINE - (MODERNA) 2021-09-20 00:00:00 Completed [facility] SARS-COV-2 COVID-19 VACCINE - (MODERNA) 2021-09-20 00:00:00 Completed [facility] SARS-COV-2 COVID-19 VACCINE - (MODERNA) 2021-09-20 00:00:00 Completed [facility] SARS-COV-2 COVID-19 VACCINE - (MODERNA) 2021-09-20 00:00:00 Completed [facility] SARS-COV-2 COVID-19 VACCINE - (MODERNA) 2021-04-02 00:00:00 Completed [facility] SARS-COV-2 COVID-19 VACCINE - (MODERNA) 2021-04-02 00:00:00 Completed [facility] SARS-COV-2 COVID-19 VACCINE - (MODERNA) 2021-04-02 00:00:00 Completed [facility] SARS-COV-2 COVID-19 VACCINE - (MODERNA) 2021-04-02 00:00:00 Completed [facility] SARS-COV-2 COVID-19 VACCINE - (MODERNA) 2021-04-02 00:00:00 Completed [facility] SARS-COV-2 COVID-19 VACCINE - (MODERNA) 2021-04-02 00:00:00 Completed [facility] SARS-COV-2 COVID-19 VACCINE - (MODERNA) 2021-04-02 00:00:00 Completed [facility] SARS-COV-2 COVID-19 VACCINE - (MODERNA) 2021-04-02 00:00:00 Completed [facility] SARS-COV-2 COVID-19 VACCINE - (MODERNA) 2021-04-02 00:00:00 Completed [facility] SARS-COV-2 COVID-19 VACCINE - (MODERNA) 2021-04-02 00:00:00 Completed [facility] Influenza High Dose Quad 2020-12-27 00:00:00 Completed [facility] Influenza High Dose Quad 2020-12-27 00:00:00 Completed [facility] Influenza High Dose Quad 2020-12-27 00:00:00 Completed [facility] Influenza High Dose Quad 2020-12-27 00:00:00 Completed [facility] Influenza High Dose Quad 2020-12-27 00:00:00 Completed [facility] Influenza High Dose Quad 2020-12-27 00:00:00 Completed [facility] Influenza High Dose Quad 2020-12-27 00:00:00 Completed [facility] Influenza High Dose Quad 2020-12-27 00:00:00 Completed [facility] Influenza High Dose Quad 2020-12-27 00:00:00 Completed [facility] Influenza High Dose Quad 2020-12-27 00:00:00 Completed [facility] SARS-COV-2 COVID-19 MODERNA 12+ YRS VACCINE 2020-06-07 00:00:00 Completed [facility] SARS-COV-2 COVID-19 MODERNA 12+ YRS VACCINE 2020-06-07 00:00:00 Completed [facility] SARS-COV-2 COVID-19 MODERNA 12+ YRS VACCINE 2020-06-07 00:00:00 Completed [facility] SARS-COV-2 COVID-19 MODERNA 12+ YRS VACCINE 2020-06-07 00:00:00 Completed [facility] SARS-COV-2 COVID-19 MODERNA 12+ YRS VACCINE 2020-06-07 00:00:00 Completed [facility] SARS-COV-2 COVID-19 MODERNA 12+ YRS VACCINE 2020-06-07 00:00:00 Completed [facility] SARS-COV-2 COVID-19 MODERNA 12+ YRS VACCINE 2020-06-07 00:00:00 Completed [facility] SARS-COV-2 COVID-19 MODERNA 12+ YRS VACCINE 2020-06-07 00:00:00 Completed [facility] SARS-COV-2 COVID-19 MODERNA 12+ YRS VACCINE 2020-06-07 00:00:00 Completed [facility] SARS-COV-2 COVID-19 MODERNA 12+ YRS VACCINE 2020-06-07 00:00:00 Completed [facility] SARS-COV-2 COVID-19 MODERNA 12+ YRS VACCINE 2020-06-07 00:00:00 Completed [facility] SARS-COV-2 COVID-19 MODERNA 12+ YRS VACCINE 2020-06-07 00:00:00 Completed [facility] SARS-COV-2 COVID-19 MODERNA 12+ YRS VACCINE 2020-06-07 00:00:00 Completed [facility] SARS-COV-2 COVID-19 MODERNA 12+ YRS VACCINE 2020-06-07 00:00:00 Completed [facility] SARS-COV-2 COVID-19 MODERNA 12+ YRS VACCINE 2020-06-07 00:00:00 Completed [facility] SARS-COV-2 COVID-19 MODERNA 12+ YRS VACCINE 2020-06-07 00:00:00 Completed [facility] SARS-COV-2 COVID-19 MODERNA 12+ YRS VACCINE 2020-06-07 00:00:00 Completed [facility] SARS-COV-2 COVID-19 MODERNA 12+ YRS VACCINE 2020-06-07 00:00:00 Completed [facility] SARS-COV-2 COVID-19 MODERNA 12+ YRS VACCINE 2020-06-07 00:00:00 Completed [facility] SARS-COV-2 COVID-19 MODERNA 12+ YRS VACCINE 2020-06-07 00:00:00 Completed [facility] SARS-COV-2 COVID-19 MODERNA 12+ YRS VACCINE 2020-06-07 00:00:00 Completed [facility] SARS-COV-2 COVID-19 MODERNA 12+ YRS VACCINE 2020-06-07 00:00:00 Completed [facility] SARS-COV-2 COVID-19 MODERNA 12+ YRS VACCINE 2020-06-07 00:00:00 Completed [facility] SARS-COV-2 COVID-19 MODERNA 12+ YRS VACCINE 2020-06-07 00:00:00 Completed [facility] SARS-COV-2 COVID-19 MODERNA 12+ YRS VACCINE 2020-06-07 00:00:00 Completed [facility] SARS-COV-2 COVID-19 MODERNA 12+ YRS VACCINE 2020-06-07 00:00:00 Completed [facility] SARS-COV-2 COVID-19 MODERNA 12+ YRS VACCINE 2020-06-07 00:00:00 Completed [facility] SARS-COV-2 COVID-19 MODERNA 12+ YRS VACCINE 2020-06-07 00:00:00 Completed [facility] SARS-COV-2 COVID-19 MODERNA 12+ YRS VACCINE 2020-06-07 00:00:00 Completed [facility] SARS-COV-2 COVID-19 MODERNA 12+ YRS VACCINE 2020-06-07 00:00:00 Completed [facility] SARS-COV-2 COVID-19 MODERNA 12+ YRS VACCINE 2020-05-10 00:00:00 Completed [facility] SARS-COV-2 COVID-19 MODERNA 12+ YRS VACCINE 2020-05-10 00:00:00 Completed [facility] SARS-COV-2 COVID-19 MODERNA 12+ YRS VACCINE 2020-05-10 00:00:00 Completed [facility] SARS-COV-2 COVID-19 MODERNA 12+ YRS VACCINE 2020-05-10 00:00:00 Completed [facility] SARS-COV-2 COVID-19 MODERNA 12+ YRS VACCINE 2020-05-10 00:00:00 Completed [facility] SARS-COV-2 COVID-19 MODERNA 12+ YRS VACCINE 2020-05-10 00:00:00 Completed [facility] SARS-COV-2 COVID-19 MODERNA 12+ YRS VACCINE 2020-05-10 00:00:00 Completed [facility] SARS-COV-2 COVID-19 MODERNA 12+ YRS VACCINE 2020-05-10 00:00:00 Completed [facility] SARS-COV-2 COVID-19 MODERNA 12+ YRS VACCINE 2020-05-10 00:00:00 Completed [facility] SARS-COV-2 COVID-19 MODERNA 12+ YRS VACCINE 2020-05-10 00:00:00 Completed [facility] SARS-COV-2 COVID-19 MODERNA 12+ YRS VACCINE 2020-05-10 00:00:00 Completed [facility] SARS-COV-2 COVID-19 MODERNA 12+ YRS VACCINE 2020-05-10 00:00:00 Completed [facility] SARS-COV-2 COVID-19 MODERNA 12+ YRS VACCINE 2020-05-10 00:00:00 Completed [facility] SARS-COV-2 COVID-19 MODERNA 12+ YRS VACCINE 2020-05-10 00:00:00 Completed [facility] SARS-COV-2 COVID-19 MODERNA 12+ YRS VACCINE 2020-05-10 00:00:00 Completed [facility] SARS-COV-2 COVID-19 MODERNA 12+ YRS VACCINE 2020-05-10 00:00:00 Completed [facility] SARS-COV-2 COVID-19 MODERNA 12+ YRS VACCINE 2020-05-10 00:00:00 Completed [facility] SARS-COV-2 COVID-19 MODERNA 12+ YRS VACCINE 2020-05-10 00:00:00 Completed [facility] SARS-COV-2 COVID-19 MODERNA 12+ YRS VACCINE 2020-05-10 00:00:00 Completed [facility] SARS-COV-2 COVID-19 MODERNA 12+ YRS VACCINE 2020-05-10 00:00:00 Completed [facility] SARS-COV-2 COVID-19 MODERNA 12+ YRS VACCINE 2020-05-10 00:00:00 Completed [facility] SARS-COV-2 COVID-19 MODERNA 12+ YRS VACCINE 2020-05-10 00:00:00 Completed [facility] SARS-COV-2 COVID-19 MODERNA 12+ YRS VACCINE 2020-05-10 00:00:00 Completed [facility] SARS-COV-2 COVID-19 MODERNA 12+ YRS VACCINE 2020-05-10 00:00:00 Completed [facility] SARS-COV-2 COVID-19 MODERNA 12+ YRS VACCINE 2020-05-10 00:00:00 Completed [facility] SARS-COV-2 COVID-19 MODERNA 12+ YRS VACCINE 2020-05-10 00:00:00 Completed [facility] SARS-COV-2 COVID-19 MODERNA 12+ YRS VACCINE 2020-05-10 00:00:00 Completed [facility] SARS-COV-2 COVID-19 MODERNA 12+ YRS VACCINE 2020-05-10 00:00:00 Completed [facility] SARS-COV-2 COVID-19 MODERNA 12+ YRS VACCINE 2020-05-10 00:00:00 Completed [facility] SARS-COV-2 COVID-19 MODERNA 12+ YRS VACCINE 2020-05-10 00:00:00 Completed [facility] Influenza High Dose Quad 2019-12-09 00:00:00 Completed [facility] Influenza High Dose Quad 2019-12-09 00:00:00 Completed [facility] Influenza High Dose Quad 2019-12-09 00:00:00 Completed [facility] Influenza High Dose Quad 2019-12-09 00:00:00 Completed [facility] Influenza High Dose Quad 2019-12-09 00:00:00 Completed [facility] Influenza High Dose Quad 2019-12-09 00:00:00 Completed [facility] Influenza High Dose Quad 2019-12-09 00:00:00 Completed [facility] Influenza High Dose Quad 2019-12-09 00:00:00 Completed [facility] Influenza High Dose Quad 2019-12-09 00:00:00 Completed [facility] Influenza High Dose Quad 2019-12-09 00:00:00 Completed [facility] Influenza High Dose Quad 2019-12-09 00:00:00 Completed [facility] Influenza High Dose Quad 2019-12-09 00:00:00 Completed [facility] Influenza High Dose Quad 2019-12-09 00:00:00 Completed [facility] Influenza High Dose Quad 2019-12-09 00:00:00 Completed [facility] Influenza High Dose Quad 2019-12-09 00:00:00 Completed [facility] Influenza High Dose Quad 2019-12-09 00:00:00 Completed [facility] Influenza High Dose Quad 2019-12-09 00:00:00 Completed [facility] Influenza High Dose Quad 2019-12-09 00:00:00 Completed [facility] Influenza High Dose Quad 2019-12-09 00:00:00 Completed [facility] Influenza High Dose Quad 2019-12-09 00:00:00 Completed [facility] Influenza High Dose Quad 2019-12-09 00:00:00 Completed [facility] Influenza High Dose Quad 2019-12-09 00:00:00 Completed [facility] Influenza High Dose Quad 2019-12-09 00:00:00 Completed [facility] Influenza High Dose Quad 2019-12-09 00:00:00 Completed [facility] Influenza High Dose Quad 2019-12-09 00:00:00 Completed [facility] Influenza High Dose Quad 2019-12-09 00:00:00 Completed [facility] Influenza High Dose Quad 2019-12-09 00:00:00 Completed [facility] Influenza High Dose Quad 2019-12-09 00:00:00 Completed [facility] Influenza High Dose Quad 2019-12-09 00:00:00 Completed [facility] Influenza High Dose Quad 2019-12-09 00:00:00 Completed [facility] Influenza High Dose 2018-12-24 00:00:00 Completed [facility] Influenza High Dose 2018-12-24 00:00:00 Completed [facility] Influenza High Dose 2018-12-24 00:00:00 Completed [facility] Influenza High Dose 2018-12-24 00:00:00 Completed [facility] Influenza High Dose 2018-12-24 00:00:00 Completed [facility] Influenza High Dose 2018-12-24 00:00:00 Completed [facility] Influenza High Dose 2018-12-24 00:00:00 Completed [facility] Influenza High Dose 2018-12-24 00:00:00 Completed [facility] Influenza High Dose 2018-12-24 00:00:00 Completed [facility] Influenza High Dose 2018-12-24 00:00:00 Completed [facility] Influenza High Dose 2018-12-24 00:00:00 Completed [facility] Influenza High Dose 2018-12-24 00:00:00 Completed [facility] Influenza High Dose 2018-12-24 00:00:00 Completed [facility] Influenza High Dose 2018-12-24 00:00:00 Completed [facility] Influenza High Dose 2018-12-24 00:00:00 Completed [facility] Influenza High Dose 2018-12-24 00:00:00 Completed [facility] Influenza High Dose 2018-12-24 00:00:00 Completed [facility] Influenza High Dose 2018-12-24 00:00:00 Completed [facility] Influenza High Dose 2018-12-24 00:00:00 Completed [facility] Influenza High Dose 2018-12-24 00:00:00 Completed [facility] Influenza High Dose 2018-12-24 00:00:00 Completed [facility] Influenza High Dose 2018-12-24 00:00:00 Completed [facility] Influenza High Dose 2018-12-24 00:00:00 Completed [facility] Influenza High Dose 2018-12-24 00:00:00 Completed [facility] Influenza High Dose 2018-12-24 00:00:00 Completed [facility] Influenza High Dose 2018-12-24 00:00:00 Completed [facility] Influenza High Dose 2018-12-24 00:00:00 Completed [facility] Influenza High Dose 2018-12-24 00:00:00 Completed [facility] Influenza High Dose 2018-12-24 00:00:00 Completed [facility] Influenza High Dose 2018-12-24 00:00:00 Completed [facility] Influenza High Dose 2017-12-24 00:00:00 Completed [facility] Influenza High Dose 2017-12-24 00:00:00 Completed [facility] Influenza High Dose 2017-12-24 00:00:00 Completed [facility] Influenza High Dose 2017-12-24 00:00:00 Completed [facility] Influenza High Dose 2017-12-24 00:00:00 Completed [facility] Influenza High Dose 2017-12-24 00:00:00 Completed [facility] Influenza High Dose 2017-12-24 00:00:00 Completed [facility] Influenza High Dose 2017-12-24 00:00:00 Completed [facility] Influenza High Dose 2017-12-24 00:00:00 Completed [facility] Influenza High Dose 2017-12-24 00:00:00 Completed [facility] Influenza High Dose 2017-12-24 00:00:00 Completed [facility] Influenza High Dose 2017-12-24 00:00:00 Completed [facility] Influenza High Dose 2017-12-24 00:00:00 Completed [facility] Influenza High Dose 2017-12-24 00:00:00 Completed [facility] Influenza High Dose 2017-12-24 00:00:00 Completed [facility] Influenza High Dose 2017-12-24 00:00:00 Completed [facility] Influenza High Dose 2017-12-24 00:00:00 Completed [facility] Influenza High Dose 2017-12-24 00:00:00 Completed [facility] Influenza High Dose 2017-12-24 00:00:00 Completed [facility] Influenza High Dose 2017-12-24 00:00:00 Completed [facility] Influenza High Dose 2017-12-24 00:00:00 Completed [facility] Influenza High Dose 2017-12-24 00:00:00 Completed [facility] Influenza High Dose 2017-12-24 00:00:00 Completed [facility] Influenza High Dose 2017-12-24 00:00:00 Completed [facility] Influenza High Dose 2017-12-24 00:00:00 Completed [facility] Influenza High Dose 2017-12-24 00:00:00 Completed [facility] Influenza High Dose 2017-12-24 00:00:00 Completed [facility] Influenza High Dose 2017-12-24 00:00:00 Completed [facility] Influenza High Dose 2017-12-24 00:00:00 Completed [facility] Influenza High Dose 2017-12-24 00:00:00 Completed [facility] TDAP 2017-04-05 00:00:00 Completed [facility] TDAP 2017-04-05 00:00:00 Completed [facility] TDAP 2017-04-05 00:00:00 Completed [facility] TDAP 2017-04-05 00:00:00 Completed [facility] TDAP 2017-04-05 00:00:00 Completed [facility] TDAP 2017-04-05 00:00:00 Completed [facility] TDAP 2017-04-05 00:00:00 Completed [facility] TDAP 2017-04-05 00:00:00 Completed [facility] TDAP 2017-04-05 00:00:00 Completed [facility] TDAP 2017-04-05 00:00:00 Completed [facility] TDAP 2017-04-05 00:00:00 Completed [facility] TDAP 2017-04-05 00:00:00 Completed [facility] TDAP 2017-04-05 00:00:00 Completed [facility] TDAP 2017-04-05 00:00:00 Completed [facility] TDAP 2017-04-05 00:00:00 Completed [facility] TDAP 2017-04-05 00:00:00 Completed [facility] TDAP 2017-04-05 00:00:00 Completed [facility] TDAP 2017-04-05 00:00:00 Completed [facility] TDAP 2017-04-05 00:00:00 Completed [facility] TDAP 2017-04-05 00:00:00 Completed [facility] TDAP 2017-04-05 00:00:00 Completed [facility] TDAP 2017-04-05 00:00:00 Completed [facility] TDAP 2017-04-05 00:00:00 Completed [facility] TDAP 2017-04-05 00:00:00 Completed [facility] TDAP 2017-04-05 00:00:00 Completed [facility] TDAP 2017-04-05 00:00:00 Completed [facility] TDAP 2017-04-05 00:00:00 Completed [facility] TDAP 2017-04-05 00:00:00 Completed [facility] TDAP 2017-04-05 00:00:00 Completed [facility] TDAP 2017-04-05 00:00:00 Completed [facility] TDAP Unknown Completed [facility] Influenza High Dose Unknown Completed [facility] Influenza High Dose Unknown Completed [facility] SARS-COV-2 COVID-19 MODERNA 12+ YRS VACCINE Unknown Completed [facility] SARS-COV-2 COVID-19 MODERNA 12+ YRS VACCINE Unknown Completed [facility] Influenza High Dose Quad Unknown Completed [facility] Influenza High Dose Unknown Completed [facility] SARS-COV-2 COVID-19 VACCINE - (MODERNA) Unknown [facility]pleted [facility] SARS-COV-2 COVID-19 VACCINE - (MODERNA) Unknown Completed [facility] Influenza High Dose Quad Unknown Completed [facility] Influenza Virus Vaccine Unknown Completed [facility] TDAP Unknown Completed [facility] Influenza High Dose Unknown Completed [facility] Influenza High Dose Unknown Completed [facility] SARS-COV-2 COVID-19 MODERNA 12+ YRS VACCINE Unknown Completed [facility] SARS-COV-2 COVID-19 MODERNA 12+ YRS VACCINE Unknown Completed [facility] Influenza High Dose Quad Unknown Completed [facility] Influenza High Dose Unknown Completed [facility] SARS-COV-2 COVID-19 VACCINE - (MODERNA) Unknown Completed [facility] SARS-COV-2 COVID-19 VACCINE - (MODERNA) Unknown Completed [facility] Influenza High Dose Quad Unknown Completed [facility] Influenza Virus Vaccine Unknown Completed [facility] TDAP Unknown Completed [facility] Influenza High Dose Unknown Completed [facility] Influenza High Dose Unknown Completed [facility] SARS-COV-2 COVID-19 MODERNA 12+ YRS VACCINE Unknown Completed [facility] SARS-COV-2 COVID-19 MODERNA 12+ YRS VACCINE Unknown Completed [facility] Influenza High Dose Quad Unknown Completed [facility] Influenza High Dose Unknown Completed [facility] SARS-COV-2 COVID-19 VACCINE - (MODERNA) Unknown Completed [facility] SARS-COV-2 COVID-19 VACCINE - (MODERNA) Unknown Completed [facility] Influenza High Dose Quad Unknown Completed [facility] Influenza Virus Vaccine Unknown Completed [facility] TDAP Unknown Completed [facility] Influenza High Dose Unknown Completed [facility] Influenza High Dose Unknown Completed [facility] SARS-COV-2 COVID-19 MODERNA 12+ YRS VACCINE Unknown Completed [facility] SARS-COV-2 COVID-19 MODERNA 12+ YRS VACCINE Unknown Completed [facility] Influenza High Dose Quad Unknown Completed [facility] Influenza High Dose Unknown Completed [facility] SARS-COV-2 COVID-19 VACCINE - (MODERNA) Unknown Completed [facility] SARS-COV-2 COVID-19 VACCINE - (MODERNA) Unknown Completed [facility] Influenza High Dose Quad Unknown Completed [facility] Influenza Virus Vaccine Unknown Completed [facility] Remdesivir Unknown Completed [facility] Remdesivir Unknown Completed [facility] Remdesivir Unknown Completed [facility] TDAP Unknown Completed [facility] Influenza High Dose Unknown Completed [facility] Influenza High Dose Unknown Completed [facility] SARS-COV-2 COVID-19 MODERNA 12+ YRS VACCINE Unknown Completed [facility] SARS-COV-2 COVID-19 MODERNA 12+ YRS VACCINE Unknown Completed [facility] Influenza High Dose Quad Unknown Completed [facility] Influenza High Dose Unknown Completed [facility] SARS-COV-2 COVID-19 VACCINE - (MODERNA) Unknown Completed [facility] SARS-COV-2 COVID-19 VACCINE - (MODERNA) Unknown Completed [facility] Influenza High Dose Quad Unknown Completed [facility] Influenza Virus Vaccine Unknown Completed [facility] Remdesivir Unknown Completed [facility] Remdesivir Unknown Completed [facility] Remdesivir Unknown Completed [facility] TDAP Unknown Completed [facility] Influenza High Dose Unknown Completed [facility] Influenza High Dose Unknown Completed [facility] SARS-COV-2 COVID-19 MODERNA 12+ YRS VACCINE Unknown Completed [facility] SARS-COV-2 COVID-19 MODERNA 12+ YRS VACCINE Unknown Completed [facility] Influenza High Dose Quad Unknown Completed [facility] Influenza High Dose Unknown Completed [facility] SARS-COV-2 COVID-19 VACCINE - (MODERNA) Unknown Completed [facility] SARS-COV-2 COVID-19 VACCINE - (MODERNA) Unknown Completed [facility] Influenza High Dose Quad Unknown Completed [facility] Influenza Virus Vaccine Unknown Completed [facility] Remdesivir Unknown Completed [facility] Remdesivir Unknown Completed [facility] Remdesivir Unknown Completed [facility] TDAP Unknown Completed [facility] Influenza High Dose Unknown Completed [facility] Influenza High Dose Unknown Completed [facility] SARS-COV-2 COVID-19 MODERNA 12+ YRS VACCINE Unknown Completed [facility] SARS-COV-2 COVID-19 MODERNA 12+ YRS VACCINE Unknown Completed [facility] Influenza High Dose Quad Unknown Completed [facility] Influenza High Dose Unknown Completed [facility] SARS-COV-2 COVID-19 VACCINE - (MODERNA) Unknown Completed [facility] SARS-COV-2 COVID-19 VACCINE - (MODERNA) Unknown Completed [facility] Influenza High Dose Quad Unknown Completed [facility] Influenza Virus Vaccine Unknown Completed [facility] Remdesivir Unknown Com[facility] Remdesivir Unknown Com[facility] Remdesivir Unknown Completed [facility] Vital Signs Vital Name Observation Time Observation Value Lindsey higgins Systolic blood pressure 2023-03-02 01:30:00 96 mm[Hg] [facility] Diastolic blood pressure 2023-03-02 01:30:00 52 mm[Hg] [facility] Heart rate 2023-03-02 01:30:00 68 /min [facility] Body temperature 2023-03-02 01:30:00 36.11 [facility] Respiratory rate 2023-03-02 01:30:00 8 /min [facility] Oxygen saturation in Arterial blood by Pulse oximetry 2023-03-02 01:30:00 98 /min [facility] Body height 2023 21:02:00 182.9 cm [facility] Body weight 2023 21:02:00 74.39 kg [facility] BMI 2023 21:02:00 22.24 kg/m2 [facility] Systolic blood pressure 2023-02-24 21:44:00 99 mm[Hg] [facility] Diastolic blood pressure 2023-02-24 21:44:00 55 mm[Hg] [facility] Heart rate 2023-02-24 21:44:00 75 /min [facility] Body temperature 2023-02-24 21:44:00 36.78 [facility] Respiratory rate 2023-02-24 21:44:00 16 /min [facility] Body height 2023-02-24 21:44:00 182.9 cm [facility] Body weight 2023-02-24 21:44:00 74.39 kg [facility] BMI 2023-02-24 21:44:00 22.24 kg/m2 [facility] Oxygen saturation in Arterial blood by Pulse oximetry 2023-02-24 21:44:00 98 /min [facility] Systolic blood pressure 2023-02-06 16:00:00 109 mm[Hg] [facility] Diastolic blood pressure 2023-02-06 16:00:00 75 mm[Hg] [facility] Heart rate 2023-02-06 16:00:00 80 /min [facility] Body temperature 2023-02-06 16:00:00 36.28 [facility] Respiratory rate 2023-02-06 16:00:00 17 /min [facility] Oxygen saturation in Arterial blood by Pulse oximetry 2023-02-06 16:00:00 96 /min [facility] Body weight 2023-02-06 08:22:00 74.481 kg [facility] BMI 2023-02-06 08:22:00 22.27 kg/m2 [facility] Body height 2023-02-02 21:14:00 182.9 cm [facility] Systolic blood pressure 2023-01-29 16:38:00 108 mm[Hg] [facility] Diastolic blood pressure 2023-01-29 16:38:00 48 mm[Hg] [facility] Heart rate 2023-01-29 16:38:00 66 /min [facility] Body temperature 2023-01-29 16:38:00 37.06 [facility] Oxygen saturation in Arterial blood by Pulse oximetry 2023-01-29 16:38:00 95 /min [facility] Respiratory rate 2023-01-29 09:17:00 16 /min [facility] Body weight 2023-01-29 09:17:00 73.982 kg [facility] BMI 2023-01-29 09:17:00 22.12 kg/m2 [facility] Body height 2023-01-25 23:25:00 182.9 cm [facility] Systolic blood pressure 2023-01-20 22:00:00 123 mm[Hg] [facility] Diastolic blood pressure 2023-01-20 22:00:00 80 mm[Hg] [facility] Heart rate 2023-01-20 22:00:00 82 /min [facility] Body temperature 2023-01-20 22:00:00 36.89 [facility] Respiratory rate 2023-01-20 22:00:00 16 /min [facility] Oxygen saturation in Arterial blood by Pulse oximetry 2023-01-20 22:00:00 97 /min [facility] Body height 2023-01-20 19:16:00 167.6 cm [facility] Body weight 2023-01-20 19:16:00 80 kg [facility] BMI 2023-01-20 19:16:00 28.47 kg/m2 [facility] Systolic blood pressure 2022-12-01 16:54:00 125 mm[Hg] [facility] Diastolic blood pressure 2022-12-01 16:54:00 79 mm[Hg] [facility] Heart rate 2022-12-01 16:54:00 94 /min [facility] Body temperature 2022-12-01 16:54:00 36.56 Nita [facility] Respiratory rate 2022-12-01 16:54:00 18 /min [facility] Oxygen saturation in Arterial blood by Pulse oximetry 2022-12-01 16:54:00 94 /min [facility] Body weight 2022-12-01 09:25:00 70.988 kg [facility] BMI 2022-12-01 09:25:00 21.23 kg/m2 [facility] Body height 2022-11-30 01:41:00 182.9 cm [facility] Systolic blood pressure 2022-11-26 22:00:00 126 mm[Hg] [facility] Diastolic blood pressure 2022-11-26 22:00:00 64 mm[Hg] [facility] Heart rate 2022-11-26 22:00:00 80 /min [facility] Oxygen saturation in Arterial blood by Pulse oximetry 2022-11-26 22:00:00 97 /min [facility] Respiratory rate 2022-11-26 21:00:00 18 /min [facility] Body temperature 2022-11-26 19:03:00 36.5 Nita [facility] Body height 2022-11-26 19:03:00 188 cm [facility] Body weight 2022-11-26 19:03:00 95.255 kg [facility] BMI 2022-11-26 19:03:00 26.96 kg/m2 [facility] Body temperature 2022-10-30 17:00:00 36.94 Nita [facility] Heart rate 2022-10-30 16:32:00 93 /min [facility] Respiratory rate 2022-10-30 16:32:00 18 /min [facility] Oxygen saturation in Arterial blood by Pulse oximetry 2022-10-30 16:32:00 97 /min [facility] Systolic blood pressure 2022-10-30 16:00:00 114 mm[Hg] [facility] Diastolic blood pressure 2022-10-30 16:00:00 87 mm[Hg] [facility] Body weight 2022-10-29 21:00:00 70.988 kg [facility] BMI 2022-10-29 21:00:00 22.46 kg/m2 [facility] Body height 2022-10-28 03:11:00 177.8 cm [facility] Systolic blood pressure 2022-08-27 19:48:00 97 mm[Hg] [facility] Diastolic blood pressure 2022-08-27 19:48:00 66 mm[Hg] [facility] Heart rate 2022-08-27 19:48:00 78 /min [facility] Respiratory rate 2022-08-27 19:48:00 18 /min [facility] Body height 2022-08-27 19:48:00 182.9 cm [facility] Body weight 2022-08-27 19:48:00 70.761 kg [facility] BMI 2022-08-27 19:48:00 21.16 kg/m2 [facility] Systolic blood pressure 2022-07-26 16:20:00 103 mm[Hg] [facility] Diastolic blood pressure 2022-07-26 16:20:00 67 mm[Hg] [facility] Heart rate 2022-07-26 16:20:00 94 /min [facility] Body temperature 2022-07-26 16:20:00 36.94 Nita [facility] Respiratory rate 2022-07-26 16:20:00 20 /min [facility] Oxygen saturation in Arterial blood by Pulse oximetry 2022-07-26 16:20:00 94 /min [facility] Body weight 2022-07-26 09:30:00 70.988 kg [facility] BMI 2022-07-26 09:30:00 21.23 kg/m2 [facility] Body height 2022-07-21 02:02:00 182.9 cm [facility] Systolic blood pressure 2022-07-18 19:48:00 111 mm[Hg] [facility] Diastolic blood pressure 2022-07-18 19:48:00 61 mm[Hg] [facility] Heart rate 2022-07-18 19:48:00 69 /min [facility] Body temperature 2022-07-18 19:48:00 36.44 Nita [facility] Respiratory rate 2022-07-18 19:48:00 18 /min [facility] Body height 2022-07-18 19:48:00 185.4 cm [facility] Body weight 2022-07-18 19:48:00 74.39 kg [facility] BMI 2022-07-18 19:48:00 21.64 kg/m2 [facility] Oxygen saturation in Arterial blood by Pulse oximetry 2022-07-18 19:48:00 100 /min [facility] Systolic blood pressure 2022-06-10 20:00:00 140 mm[Hg] [facility] Diastolic blood pressure 2022-06-10 20:00:00 56 mm[Hg] [facility] Heart rate 2022-06-10 20:00:00 81 /min [facility] Body temperature 2022-06-10 20:00:00 36.89 Nita [facility] Respiratory rate 2022-06-10 20:00:00 14 /min [facility] Oxygen saturation in Arterial blood by Pulse oximetry 2022-06-10 20:00:00 100 /min [facility] Body height 2022-06-10 16:20:00 182.9 cm [facility] Body weight 2022-06-10 16:20:00 74.39 kg [facility] BMI 2022-06-10 16:20:00 22.24 kg/m2 [facility] Systolic blood pressure 2022-05-28 17:22:00 112 mm[Hg] [facility] Diastolic blood pressure 2022-05-28 17:22:00 66 mm[Hg] [facility] Heart rate 2022-05-28 17:22:00 83 /min [facility] Body temperature 2022-05-28 17:22:00 36.28 Nita [facility] Respiratory rate 2022-05-28 17:22:00 18 /min [facility] Oxygen saturation in Arterial blood by Pulse oximetry 2022-05-28 17:22:00 98 /min [facility] Body weight 2022-05-28 10:02:00 74.481 kg [facility] BMI 2022-05-28 10:02:00 22.27 kg/m2 [facility] Body height 2022-05-27 04:42:00 182.9 cm [facility] Systolic blood pressure 2022-05-05 22:34:00 102 mm[Hg] [facility] Diastolic blood pressure 2022-05-05 22:34:00 58 mm[Hg] [facility] Heart rate 2022-05-05 22:34:00 79 /min [facility] Body temperature 2022-05-05 22:34:00 36.22 Nita [facility] Respiratory rate 2022-05-05 22:34:00 18 /min [facility] Oxygen saturation in Arterial blood by Pulse oximetry 2022-05-05 22:34:00 94 /min [facility] Body weight 2022-05-05 10:07:00 73.982 kg [facility] BMI 2022-05-05 10:07:00 20.94 kg/m2 [facility] Body height 2022-05-03 04:50:00 188 cm [facility] Systolic blood pressure 2021-12-05 19:40:00 115 mm[Hg] [facility] Diastolic blood pressure 2021-12-05 19:40:00 73 mm[Hg] [facility] Heart rate 2021-12-05 19:40:00 59 /min [facility] Body weight 2021-12-05 19:40:00 77.701 kg [facility] BMI 2021-12-05 19:40:00 23.89 kg/m2 [facility] Oxygen saturation in Arterial blood by Pulse oximetry 2021-12-05 19:40:00 97 /min [facility] Procedures Procedure Date / Time Performed Performing Clinician Source XR ANKLE 3+ VW RIGHT 2023 23:02:00 Joseph Melendez [facility] COMP. METABOLIC PANEL ([id number]) 2023 21:37:00 Joseph Melendez [facility] CBC WITH DIFF 2023 21:37:00 Joseph Melendez [facility] BASIC METABOLIC PANEL (NA, K, CL, CO2, GLUCOSE, BUN, CREATININE, CA) 2023-02-24 21:45:00 Nicanor Lentz [facility] AUTHORIZATION FOR RELEASE OF PHI 2023-02-20 06:01:00 Doctor Unassigned, [place] [facility] BASIC METABOLIC PANEL (NA, K, CL, CO2, GLUCOSE, BUN, CREATININE, CA) 2023-02-05 08:20:00 Andreina Childs [facility] CBC WITH DIFF 2023-02-05 08:20:00 Andreina Childs [facility] BASIC METABOLIC PANEL (NA, K, CL, CO2, GLUCOSE, BUN, CREATININE, CA) 2023-02-04 09:27:00 Andreina Childs [facility] CBC WITH DIFF 2023-02-04 09:27:00 Andreina Childs [facility] JESSE AURIS SURVEILLANCE BY PCR (INFECTION CONTROL PURPOSES) 2023-02-03 21:48:00 Andreina Childs [facility] URINALYSIS 2023-02-03 14:42:00 Josefina Dasilva [facility] CBC WITH DIFF 2023-02-03 11:25:[address] BASIC METABOLIC PANEL (NA, K, CL, CO2, GLUCOSE, BUN, CREATININE, CA) 2023-02-03 10:19:00 Marlena Rios [facility] PROCALCITONIN 2023-02-03 10:19:[address] XR CHEST 1 VW 2023-02-02 19:00:15 Andreina Uriarte [facility] COMP. METABOLIC PANEL ([id number]) 2023-02-02 16:53:00 Andreina Uriarte [facility] CBC WITH DIFF 2023-02-02 16:53:00 Andreina Uriarte [facility] RAPID INFLUENZA A/B 2023-02-02 16:53:00 Andreina Uriarte [facility] COVID-19 (ID NOW RAPID TESTING) 2023-02-02 16:53:00 Andreina Uriarte [facility] LAB ONLY COVID INTERPRETATION 2023-02-02 16:53:00 Andreina Uriarte [facility] XR CHEST 1 VW 2023-01-28 18:01:[address] BASIC METABOLIC PANEL (NA, K, CL, CO2, GLUCOSE, BUN, CREATININE, CA) 2023-01-27 10:13:00 Andreina Childs [facility] VANCOMYCIN TROUGH 2023-01-27 10:13:00 Angelica Braga [facility] CBC WITH DIFF 2023-01-27 10:13:00 Andreina Childs [facility] WOUND/ASPIRATE OR ABSCESS CULTURE 2023-01-26 18:02:00 Keerthi Solorzano [facility] WOUND CULTURE 2023-01-26 18:02:00 [facility]A S[facility]EN BY PCR, ARNOLD 2023-01-25 23:19:00 Marques Hines [facility] BLOOD CULTURE SCREEN 2023-01-25 20:41:00 Lavon Soni [facility] COMP. METABOLIC PANEL ([id number]) 2023-01-25 20:41:00 Virginia Soni [facility] SEDIMENTATION RATE 2023-01-25 20:41:00 Marco A Soni [facility] CBC WITH DIFF 2023-01-25 20:41:00 Virginia Soni [facility] LACTIC ACID WHOLE BLOOD 2023-01-25 20:41:00 Virginia Soni [facility] XR ANKLE 3+ VW RIGHT 2023-01-25 20:38:12 Lavon Soni [facility] CONSENT/REFUSAL FOR DIAGNOSIS AND TREATMENT 2023-01-25 20:04:39 Doctor Unassigned, [place] [facility] EMERGENCY DEPARTMENT DOCUMENTS 2023-01-25 05:01:00 Doctor Unassigned, [place] [facility] RAPID STREP SCREEN FOR GROUP A 2023-01-20 21:38:00 Virginia Soni [facility] CT HEAD WO CONTRAST 2023-01-20 19:55:01 Hali Soni ra [facility] XR CHEST 1 VW 2023-01-20 19:54:03 Virginia Soni [facility] MAGNESIUM 2023-01-20 19:24:00 [facility]23-01-20 19:24:00 [facility] COMP. METABOLIC PANEL ([id number]) 2023-01-20 19:24:00 Virginia Soni [facility] CBC WITH DIFF 2023-01-20 19:24:00 Virginia Soni [facility] RAPID INFLUENZA A/B 2023-01-20 19:24:00 Hali Soni ra [facility] N-TERMINAL PRO-BNP 2023-01-20 19:24:00 Marco A Soni [facility] COVID-19 (ID NOW RAPID TESTING) 2023-01-20 19:24:00 Virginia Soni [facility] BASIC METABOLIC PANEL (NA, K, CL, CO2, GLUCOSE, BUN, CREATININE, CA) 2022-12-01 11:21:00 Andreina Childs [facility] XR ANKLE 3+ VW RIGHT 2022-11-30 01:09:00 Juno Verdin [facility] XR KUB 2022-11-29 23:28:59 Juno Verdin [facility] COMP. METABOLIC PANEL ([id number]) 2022-11-29 23:10:00 Juno Verdin [facility] CBC WITH DIFF 2022-11-29 23:10:00 Juno Verdin [facility] CT ABDOMEN PELVIS W CONTRAST 2022-11-26 21:46:20 Frankie Olman [facility] COMP. METABOLIC PANEL ([id number]) 2022-11-26 19:54:00 Frankie Olman [facility] CBC WITH DIFF 2022-11-26 19:54:00 [facility] ASSIGNMENT OF BENEFITS 2022-11-26 19:35:58 Docto r Unassigned, [place] [facility] CONSENT/REFUSAL FOR DIAGNOSIS AND TREATMENT 2022-11-26 19:35:18 Doctor Unassigned, [place] [facility] XR CHEST 1 VW 2022-11-26 19:29:39 Frankie Olman [facility] CONSENT/REFUSAL FOR DIAGNOSIS AND TREATMENT 2022-11-26 19:13:37 Doctor Unassigned, [place] [facility] CONSENT/REFUSAL FOR DIAGNOSIS AND TREATMENT 2022-11-26 19:09:05 Doctor Unassigned, [place] [facility] EXTERNAL PROVIDER - ADC CARDIOLOGY 2022-11-21 05:01:00 Doctor Unassigned, [place] [facility] XR CHEST 1 VW 2022-10-30 11:30:00 Aziza Echevarria [facility] MAGNESIUM 2022-10-30 09:09:00 Aziza Echevarria [facility] BASIC METABOLIC PANEL (NA, K, CL, CO2, GLUCOSE, BUN, CREATININE, CA) 2022-10-30 09:09:00 Wale [facility] CBC WITH DIFF 2022-10-30 09:09:00 Wale [facility] POCT GLUCOSE (AUTOMATED) 2022-10-29 13:16:00 Harvinder [facility] MAGNESIUM 2022-10-29 07:50:00 [facility]IC PANEL (NA, K, CL, CO2, GLUCOSE, BUN, CREATININE, CA) 2022-10-29 07:50:00 Wale [facility] CBC WITH DIFF 2022-10-29 07:50:00 Wale [facility] POCT GLUCOSE (AUTOMATED) 2022-10-29 01:59:00 [facility] 2022-10-28 21:26:00 [facility] PO[facility] GLUCOSE (AUTOMATED) 2022-10-28 16:56:00 [facility] LEGIONELLA AND STREPTOCOCCUS PNEUMONIAE URINARY ANTIGENS 2022-10-28 16:05:00 [facility] JESSE AURIS SURVEILLANCE BY PCR (INFECTION CONTROL PURPOSES) 2022-10-28 15:51:00 u Stephon [facility] BASIC METABOLIC PANEL (NA, K, CL, CO2, GLUCOSE, BUN, CREATININE, CA) 2022-10-28 15:45:00 Wale [facility] CBC WITH DIFF 2022-10-28 15:45:00 Wale [facility] LACTIC ACID WHOLE BLOOD 2022-10-28 15:32:00 Abu Virginia celaya [facility] PROCALCITONIN 2022-10-28 15:32:00 u Lydia Stevenson [facility] POCT GLUCOSE (AUTOMATED) 2022-10-28 13:54:00 Harvinder [facility] BLOOD CULTURE SCREEN 2022-10-28 06:55:00 Lashon Beck i [facility] XR CHEST 1 VW 2022-10-28 04:21:00 Marcie Nickerson [facility] THROAT CULTURE 2022-10-28 03:42:00 Marcie Nickerson [facility] RAPID STREP SCREEN FOR GROUP A 2022-10-28 03:42:00 Marcie Nickerson [facility] COVID-19 (ID NOW RAPID TESTING) 2022-10-28 03:42:00 Marcie Nickerson [facility] LAB ONLY COVID INTERPRETATION 2022-10-28 03:42:00 Marcie Nickerson [facility] MAGNESIUM 2022-10-28 03:26:00 Chaz Roberts [facility] TROPONIN I 2022-10-28 03:26:00 [facility] COMP. METABOLIC PANEL ([id number]) 2022-10-28 03:26:00 Marcie Nickerson [facility] CBC WITH DIFF 2022-10-28 03:26:00 Marcie Nickerson [facility] GLYCOSYLATED HEMOGLOBIN (A1C) 2022-10-28 03:26:00 Lydia Tristan [facility] URINALYSIS 2022-10-28 03:26:00 Marcie Nickerson [facility] LACTIC ACID WHOLE BLOOD 2022-10-28 03:26:00 Marcie Nickerson [facility] ASSIGNMENT OF BENEFITS 2022-10-28 03:23:04 Docto r Unassigned, [place] [facility] NOTICE OF PRIVACY PRACTICES 2022-10-28 03:22:29 Doctor Unassigned, [place] [facility] CONSENT/REFUSAL FOR DIAGNOSIS AND TREATMENT 2022-10-28 03:22:10 Doctor Unassigned, [place] [facility] HB ECG ROUTINE & RHYTHM STRIP 2022-10-28 03:09:11 Marcie Nickerson [facility] CT THORAX W CONTRAST 2022-07-25 18:16:16 Juancarlos Rios i [facility] RAPID INFLUENZA A/B 2022-07-25 17:15:00 Marlena Rios [facility] COVID-19 (ID NOW RAPID TESTING) 2022-07-25 17:15:00 Marlena Rios [facility] BASIC METABOLIC PANEL (NA, K, CL, CO2, GLUCOSE, BUN, CREATININE, CA) 2022-07-25 09:46:00 Amadeo Andreina [facility] CBC WITH DIFF 2022-07-25 09:46:00 Amadeo Andreina [facility] XR CHEST 1 VW 2022-07-25 00:09:00 Amdaeo Andreina [facility] BASIC METABOLIC PANEL (NA, K, CL, CO2, GLUCOSE, BUN, CREATININE, CA) 2022-07-24 09:31:00 Andreina Childs [facility] CBC WITH DIFF 2022-07-24 09:31:00 Amadeo [facility] MRSA / MSSA SCREEN BY PCRARNOLD 2022-07-23 21:06:00 Andreina Childs [facility] CBC WITH DIFF 2022-07-22 10:41:00 Leroy Soni [facility] BASIC METABOLIC PANEL (NA, K, CL, CO2, GLUCOSE, BUN, CREATININE, CA) 2022-07-22 09:09:00 Leroy Soni [facility] WOUND/ASPIRATE OR ABSCESS CULTURE 2022-07-21 16:22:00 Alirio Locke [facility] WOUND CULTURE 2022-07-21 16:22:00 Alirio Locke [facility] XR ANKLE <3 VW RIGHT 2022-07-21 12:18:38 Norm Lentz [facility] BLOOD CULTURE SCREEN 2022-07-21 02:26:00 Norm Lentz [facility] COMP. METABOLIC PANEL ([id number]) 2022-07-21 02:26:00 Nicanor Lentz [facility] SEDIMENTATION RATE 2022-07-21 02:26:00 Nicanor Lentz [facility] CBC WITH DIFF 2022-07-21 02:26:00 Nicanor Lentz [facility] LACTIC ACID WHOLE BLOOD 2022-07-21 02:25:00 , [facility] LACTIC ACID WHOLE BLOOD 2022-07-18 20:14:00 , [facility] COMP. METABOLIC PANEL ([id number]) 2022-07-18 20:12:00 Singer [facility] SEDIMENTATION RATE 2022-07-18 20:12:00 Singer [facility] CBC WITH DIFF 2022-07-18 20:12:00 Singer [facility] CT ABDOMEN PELVIS W CONTRAST 2022-06-10 18:56:57 Joseph Melendez Veronica [facility] XR CHEST 1 VW 2022-06-10 18:39:57 Joseph Melendez [facility] URINALYSIS 2022-06-10 18:30:[address] [facility] ASSIGNMENT OF BENEFITS 2022-06-10 17:41:23 Docto r Unassigned, [place] [facility] CONSENT/REFUSAL FOR DIAGNOSIS AND TREATMENT 2022-06-10 17:39:47 Doctor Unassigned, [place] [facility] LIPASE 2022-06-10 17:15:00 Joseph Melendez [facility] MAGNESIUM 2022-06-10 17:15:[address] [facility] TROPONIN I 2022-06-10 17:15:[address] [facility] COMP. METABOLIC PANEL ([id number]) 2022-06-10 17:15:00 Joseph Melendez Veronica [facility] CBC WITH DIFF 2022-06-10 17:15:00 Joseph Melendez [facility] EXTERNAL PROVIDER RECORDS 2022-06-03 06:01:00 Do ctor Unassigned, [place] [facility] BASIC METABOLIC PANEL (NA, K, CL, CO2, GLUCOSE, BUN, CREATININE, CA) 2022-05-28 10:01:00 Andreina Childs [facility] CBC WITH DIFF 2022-05-28 10:01:00 Andreina Childs [facility] BASIC METABOLIC PANEL (NA, K, CL, CO2, GLUCOSE, BUN, CREATININE, CA) 2022-05-27 10:03:00 Josefina Dasilva [facility] CBC WITH DIFF 2022-05-27 10:03:00 Josefina Dasilva [facility] CT ABDOMEN PELVIS WO CONTRAST 2022-05-27 00:19:06 Marcie Nickerson [facility] XR CHEST 1 VW 2022-05-27 00:18:27 Marcie Nickerson [facility] COMP. METABOLIC PANEL ([id number]) 2022-05-26 23:52:00 Marcie Nickerson [facility] CBC WITH DIFF 2022-05-26 22:55:00 Marcie Nickerson [facility] COVID-19 (ID NOW RAPID TESTING) 2022-05-26 22:41:00 Krishan [facility] LAB ONLY COVID INTERPRETATION 2022-05-26 22:41:00 Krishan [facility] BASIC METABOLIC PANEL (NA, K, CL, CO2, GLUCOSE, BUN, CREATININE, CA) 2022-05-05 10:38:00 Leroy Soni [facility] CBC WITH DIFF 2022-05-05 10:38:00 Leroy Soni [facility] FECES CULTURE 2022-05-03 15:27:00 Brown [facility] OCCULT (GUAIAC) BLOOD 2022-05-03 15:27:00 Randi Dasilva [facility] CLOSTRIDIUM DIFFICILE TOXIN 2022-05-03 15:25:00 Nicanor Lentz [facility] BASIC METABOLIC PANEL (NA, K, CL, CO2, GLUCOSE, BUN, CREATININE, CA) 2022-05-03 11:51:00 Brown [facility] CBC WITH DIFF 2022-05-03 11:51:00 Brown [facility] CT ABDOMEN PELVIS W CONTRAST 2022-05-03 01:40:00 Singer Nicanor [facility] COMP. METABOLIC PANEL ([id number]) 2022-05-03 00:41:00 Nicanor Lentz [facility] CBC WITH DIFF 2022-05-03 00:41:00 Nicanor Lentz [facility] Encounters Start Date/Time End Date/Time Encounter Type Admission Type Attending [facility] Care Facility Care Department Encounter ID Source 2023-09-02 13:45:00 2023-09-02 13:45:00 Outpatient [facility]IE [facility] [id number] [facility] 2023 14:51:00 2023 20:06:00 Emergency X Joseph MELENDEZ [facility] ERT [id number] [facility] 2023 14:51:00 2023 20:06:00 Emergency AlJoseph Veronica [facility] [id number] 350.1.13.10 4.2.7.2.686 [id number] [facility] 2023-02-24 15:31:00 2023-02-24 17:09:00 Emergency X NICANOR LENTZ [facility] ERT [id number] [facility] 2023-02-24 15:31:00 2023-02-24 17:09:00 Emergency Nicanor Lentz [facility] [id number] 350.1.13.10 4.2.7.2.686 [id number] [facility] 2023-02-09 00:00:00 2023-02-09 00:00:00 Transition of Care Shira Mead [facility] [id number] 350.1.13.10 4.2.7.2.686 [id number] [facility] 2023-02-02 11:13:00 2023-02-06 14:30:00 Inpatient Kevin MARQUES HINES [facility] [id number] [facility] 2023-02-02 11:13:00 2023-02-06 14:30:00 Hospital Encounter Andreina Uriarte Gogo Leonjannie, Marlenasushil Hines [facility] [id number] 350.1.13.10 4.2.7.2.686 [id number] [facility] 2023-01-25 14:59:00 2023-01-29 14:45:00 Outpatient MARQUES ABDALLA [facility] [id number] [facility] 2023-01-25 14:59:00 2023-01-29 14:45:00 Emergency Virginia Soni [facility] [id number] 350.1.13.10 4.2.7.2.686 [id number] [facility] 2023-01-20 14:16:00 2023-01-20 18:32:00 Emergency X VIRGINIA SONI [facility] ERT [id number] [facility] 2023-01-20 14:16:00 2023-01-20 18:32:00 Emergency Virginia Soni [facility] [id number] 350.1.13.10 4.2.7.2.686 [id number] [facility] 2022-12-02 00:00:00 2022-12-02 00:00:00 Transition of Care Ena Vaughn [id number] 350.1.13.10 4.2.7.2.686 [id number] [facility] 2022-11-29 17:47:00 2022-12-01 15:01:00 Outpatient MARQUES ABDALLA [facility] [id number] [facility] 2022-11-29 17:47:00 2022-12-01 15:01:00 Emergency Juno Verdin [facility] [id number] 350.1.13.10 4.2.7.2.686 [id number] [facility] 2022-11-26 14:05:00 2022-11-26 20:18:00 Emergency X OLMAN DAVID [facility] ERT [id number] [facility] 2022-11-26 14:05:00 2022-11-26 20:18:00 Emergency Olman David [facility] [id number] 350.1.13.10 4.2.7.2.686 [id number] [facility] 2022-11-21 00:00:00 2022-11-21 00:00:00 Orders Only Doctor Unassigned, [facility] [id number] 350.1.13.10 4.2.7.2.686 [id number] [facility] 2022-10-31 00:00:00 2022-10-31 00:00:00 Transition of Care Ena Vaughn 1.2.840.114 350.1.13.10 4.2.7.2.686 [id number] [facility] 2022-10-27 22:03:00 2022-10-30 14:20:00 Inpatient X LARRY STEVENSON [facility] [id number] [facility] 2022-10-27 22:03:00 2022-10-30 14:20:00 Hospital Encounter Marcie Nickerson [place], [place] [facility] 1.2840.114 350.1.13.10 4.2.7.2.686 [id number] [facility] 2022-08-27 14:15:00 2022-08-27 15:25:22 Outpatient R NATALIE TRIVEDI [facility] [id number] [facility] 2022-08-27 14:15:00 2022-08-27 15:25:22 Office Visit Natalie Trivedi [facility] 1.2840.114 350.1.13.10 4.2.7.2.686 [id number] [facility] 2022-07-31 00:00:00 2022-07-31 00:00:00 Patient Secure Msg Doctor Unassigned, Melmore [facility] 1.2840.114 350.1.13.10 4.2.7.2.686 [id number] [facility] 2022-07-30 14:15:00 2022-07-30 14:15:00 Outpatient R NATALIE TRIVEDI [facility] [id number] [facility] 2022-07-28 00:00:00 2022-07-28 00:00:00 Transition of Care Ena Vaughn [facility] 1.2840.114 350.1.13.10 4.2.7.2.686 [id number] [facility] 2022-07-20 20:56:00 2022-07-26 16:35:00 Hospital Encounter Nicanor Lentz, Marques León [facility] 1.2840.114 350.1.13.10 4.2.7.2.686 [id number] [id number] [facility] 2022-07-18 14:46:00 2022-07-18 18:35:00 Emergency X NICANOR LENTZ [facility] ERT [id number] [facility] 2022-07-18 14:46:00 2022-07-18 18:35:00 Emergency Nicanor Lentz [facility] 1.2.840.114 350.1.13.10 4.2.7.2.686 [id number] 084 [id number] [facility] 2022-07-18 14:46:00 2022-07-18 18:35:00 Emergency X NICANOR LENTZ [facility] ERT [id number] [facility] 2022-07-02 00:00:00 2022-07-02 00:00:00 Telephone eJan Jarrett [facility]AL [facility] 1.84.114 350.1.13.10 4.2.7.2.686 [id number] [facility] 2022-07-01 00:00:00 2022-07-01 00:00:00 [facility] MED[facility] 1.84.114 350.1.13.10 4.2.7.2.686 [id number] 044 [id number] [facility] 2022-06-19 14:30:00 2022-06-19 14:30:[address] [facility] [id number] [facility] 2022-06-16 00:00:00 2022-06-16 00:00:00 [facility] OFFICE BUILDING 1.84.114 350.1.13.10 4.2.7.2.686 [id number] 044 [id number] [facility] 2022-06-10 10:22:00 2022-06-10 16:51:00 Emergency X Joseph MELENDEZ [facility] ERT [id number] [facility] 2022-06-10 10:22:00 2022-06-10 16:51:00 Emergency Joseph Melendez [facility] 1.114 350.1.13.10 4.2.7.2.686 [id number] 084 [id number] [facility] 2022-06-03 00:00:00 2022-06-03 00:00:00 Orders Only Doctor Unassigned, Melmore [facility] 1..114 350.1.13.10 4.2.7.2.686 [id number] [id number] [facility] 2022-06-03 00:00:00 2022-06-03 00:00:00 Telephone Chan [facility] 1.2840.114 350.1.13.10 4.2.7.2.686 [id number] 044 [id number] [facility] 2022-05-29 00:00:00 2022-05-29 00:00:00 Transition of Care Ena Vaughn 1.20.114 350.1.13.10 4.2.7.2.686 [id number] [facility] 2022-05-26 16:25:00 2022-05-28 14:40:00 Inpatient X [facility] [id number] [facility] 2022-05-26 16:25:00 2022-05-28 14:40:00 Hospital Encounter Marcie Nickerson Blanca [facility] 1.0.114 350.1.13.10 4.2.7.2.686 [id number] [facility] 2022-05-23 00:00:00 2022-05-23 00:00:00 Telephone Chan [facility] MEDICAL OFFICE BUILD[facility] 1.20.114 350.1.13.10 4.2.7.2.686 [id number] 044 [id number] [facility] 2022-05-05 18:41:00 2022-05-16 14:13:00 Inpatient 3 [place] [id number] [facility] [place] 2022-05-06 00:00:00 2022-05-06 00:00:00 Transition of Care Ena Vaughn 1.2840.114 350.1.13.10 4.2.7.2.686 [id number] [facility] 2022-05-02 18:19:00 2022-05-05 17:40:00 [facility] [id number] [facility] 2022-05-02 18:19:00 2022-05-05 17:40:00 [facility] 1.2.840.114 350.1.13.10 4.2.7.2.686 [id number] [facility] 2022-05-01 00:00:00 2022-05-01 00:00:00 Telephone Chan [facility] MEDICAL OFFICE BUILDING 1.2.840.114 350.1.13.10 4.2.7.2.686 [id number] 044 [id number] [facility] 2022-04-17 00:00:00 2022-04-17 00:00:00 Telephone Chan [facility] MEDICAL OFFICE BUILDING 1.2.840.114 350.1.13.10 4.2.7.2.686 [id number] 044 [id number] [facility] 2021-12-05 14:30:00 2021-12-05 14:45:00 Office Visit Giles [facility] MEDICAL OFFICE BUILDING 1.2.840.114 350.1.13.10 4.2.7.2.686 [id number] 044 [id number] [facility] 2021-12-05 14:30:00 2021-12-05 14:30:00 Outpatient DOUGIE BLACKMON [facility] [id number] [facility] 2021-12-05 14:30:00 2021-12-05 14:30:00 Outpatient DOUGIE BLACKMON [facility] [id number] [facility] 2021-12-05 00:00:00 2021-12-05 00:00:00 Orders Only Doctor Unassigned, Melmore [facility] 1..840.114 350.1.13.10 4.2.7.2.686 [id number] [facility] 2021-11-28 14:00:00 2021-11-28 14:00:00 Outpatient DOUGIE BLACKMON [facility] [id number] [facility] 2021-11-27 00:00:00 2021-11-27 00:00:00 [facility] 1..840.114 350.1.13.10 4.2.7.2.686 [id number] [facility] 2021-11-21 14:30:00 2021-11-21 14:30:00 Outpatient DOUGIE BLACKMON [facility] [id number] [facility] 2021-11-18 15:00:00 2021-11-18 15:00:00 Nurse Visit Nurse, [facility] Surgery Farooq [facility] 1..840.114 350.1.13.10 4.2.7.2.686 [id number] [facility] 2021-11-18 15:00:00 2021-11-18 13:15:55 Outpatient KATALINA SALTERTNEY [facility] [id number] [facility] 2021-11-11 11:15:00 2021-11-11 14:37:03 [facility] [id number] [facility] 2021-11-11 11:15:00 2021-11-11 14:37:03 Nurse Visit Nurse, [facility] Farooq [facility] 1..840.114 350.1.13.10 4.2.7.2.686 [id number] [facility] 2021-11-11 00:00:00 2021-11-11 00:00:00 [facility] 1.2.840.114 350.1.13.10 4.2.7.2.686 [id number] [facility] 2021-10-24 00:00:00 2021-10-24 00:00:00 [facility] MED[facility] OFFICE BUILDING 1..840.114 350.1.13.10 4.2.7.2.686 [id number] 044 [id number] [facility] 2021-10-22 16:00:00 2021-10-22 16:00:00 Nurse Visit Nurse, [facility] 1..840.114 350.1.13.10 4.2.7.2.686 [id number] [facility] 2021-10-22 16:00:00 2021-10-22 15:58:34 [facility] [id number] [facility] 2021-10-22 00:00:00 2021-10-22 00:00:00 [facility] 1..840.114 350.1.13.10 4.2.7.2.686 [id number] [facility] 2021-09-24 00:00:00 2021-09-24 00:00:00 Refill Chan [facility] MEDICAL OFFICE BUILDING 1.2.840.114 350.1.13.10 4.2.7.2.686 [id number] [id number] [facility] 2021-09-17 00:00:00 2021-09-17 00:00:00 Orders Only Doctor Unassigned, Melmore [facility] 1.2840.114 350.1.13.10 4.2.7.2.686 [id number] [id number] [facility] 2021-07-31 15:00:00 2021-07-31 15:42:22 [id number] 2021-07-31 15:00:00 2021-07-31 15:42:22 Office Visit [facility] 1.2.840.114 350.1.13.10 4.2.7.2.686 [id number] [facility] 2021-07-31 15:00:00 2021-07-31 15:00:00 [facility] [id number] 2021-07-31 00:00:00 2021-07-31 00:00:00 Orders Only Doctor Unassigned, Melmore [facility] 1.2840.114 350.1.13.10 4.2.7.2.686 [id number] [id number] [facility] 2021-07-30 00:00:00 2021-07-30 00:00:00 Telephone Jelani Cordon [facility] OFF[facility] 1.2.840.114 350.1.13.10 4.2.7.2.686 [id number] 092 [id number] [facility] 2021-07-29 00:00:00 2021-07-29 00:00:[address] [facility] BU[facility] 1.2.840.114 350.1.13.10 4.2.7.2.686 [id number] [facility] 2021-07-22 00:00:00 2021-07-22 00:00:00 Orders Only Doctor Unassigned, Melmore [facility] 1.2840.114 350.1.13.10 4.2.7.2.686 [id number] [id number] [facility] 2021-06-26 00:00:00 2021-06-26 00:00:00 Orders Only Doctor Unassigned, Melmore [facility] 1.2840.114 350.1.13.10 4.2.7.2.686 [id number] [id number] [facility] 2021-06-19 14:30:00 2021-06-19 14:30:00 Outpatient DOUGIE BLACKMON [facility] [id number] [facility] 2021-06-15 00:00:00 2021-06-15 00:00:00 Orders Only Doctor Unassigned, Melmore [facility] 1.2840.114 350.1.13.10 4.2.7.2.686 [id number] [facility] 2021-06-03 15:45:00 2021-06-03 15:45:00 [facility] [id number] [facility] 2021-06-03 00:00:00 2021-06-03 00:00:00 Telephone [facility] 1.840.114 350.1.13.10 4.2.7.2.686 [id number] [facility] 2021-05-15 00:00:00 2021-05-15 00:00:00 Telephone Dougie Giles [facility] 1..840.114 350.1.13.10 4.2.7.2.686 [id number] 044 [id number] [facility] 2021-05-01 00:00:00 2021-05-01 00:00:00 Telephone Liane Negrete [facility] 1..114 350.1.13.10 4.2.7.2.686 [id number] 019 [id number] [facility] 2021-04-30 00:00:00 2021-04-30 00:00:00 Telephone Only, Ang Db Test [facility] MEDICAL OFFICE BUILDING 1..114 350.1.13.10 4.2.7.2.686 [id number] [facility] 2021-04-29 15:00:00 2021-04-29 15:15:00 Laboratory Only Only, Ang Db Test FahadMannie [facility] MEDICAL OFFICE BUILDING 1.84.114 350.1.13.10 4.2.7.2.686 [id number] [facility] 2021-04-29 15:00:00 2021-04-29 15:00:00 Outpatient R FAHAD MANNIE [facility] [id number] [facility] 2021-04-29 00:00:00 2021-04-29 00:00:00 Orders Only Doctor Unassigned, Melmore [facility] 1.84.114 350.1.13.10 4.2.7.2.686 [id number] [id number] [facility] 2021-04-11 14:15:00 2021-04-11 15:10:33 Outpatient DOUGIE BLACKMON [facility] [id number] [facility] 2021-04-11 14:15:00 2021-04-11 14:30:00 Office Visit Dougie Giles [facility] MEDICAL OFFICE BUILDING 1.84.114 350.1.13.10 4.2.7.2.686 [id number] 044 [id number] [facility] 2021-04-11 14:15:00 2021-04-11 14:15:00 Outpatient R DOUGIE GILES [facility] [id number] [facility] 2021-04-11 14:15:00 2021-04-11 14:15:00 Outpatient R DOUGIE GILES [facility] [id number] [facility] 2021-04-11 14:15:00 2021-04-11 14:15:00 Outpatient R DOUGIE GILES [facility] [id number] [facility] 2021-03-25 15:30:00 2021-03-25 16:15:24 Outpatient R MARGI BOYD [facility] [id number] [facility] 2021-03-25 15:30:00 2021-03-25 16:15:24 Office Visit Margi Boyd Mayte [facility] 1..840.114 350.1.13.10 4.2.7.2.686 [id number] [facility] 2021-03-25 15:30:00 2021-03-25 16:15:24 Outpatient R MARGI BOYD [facility] [id number] [facility] 2021-03-08 00:00:00 2021-03-08 00:00:00 Orders Only Doctor Unassigned, Melmore [facility] 1..840.114 350.1.13.10 4.2.7.2.686 [id number] [facility] 2021-03-07 13:15:00 2021-03-07 14:35:42 Outpatient R JEAN JARRETT [facility] [id number] [facility] 2021-03-07 13:12:17 2021-03-07 14:35:42 Office Visit JaniaJean [facility] 1..840.114 350.1.13.10 4.2.7.2.686 [id number] [facility] 2021-03-07 13:15:00 2021-03-07 13:15:00 Outpatient R JEAN JARRETT [facility] [id number] [facility] 2021-02-25 00:00:00 2021-02-25 00:00:00 Orders Only Doctor Unassigned, Melmore [facility] 1.2840.114 350.1.13.10 4.2.7.2.686 [id number] [facility] 2021-02-21 00:00:00 2021-02-21 00:00:00 Telephone Dougie Giles [facility] 1.2.114 350.1.13.10 4.2.7.2.686 [id number] 044 [id number] [facility] 2021-02-01 00:00:00 2021-02-01 00:00:[address] [facility] 1.2840.114 350.1.13.10 4.2.7.2.686 [id number] [facility] 2021-01-30 00:00:00 2021-01-30 00:00:00 Telephone Chan Dougie [facility] MEDICAL OFFICE BUILDING 1.20.114 350.1.13.10 4.2.7.2.686 [id number] 044 [id number] [facility] 2021-01-30 00:00:00 2021-01-30 00:00:00 Telephone Chan Dougie [facility] MEDICAL OFFICE BUILDING 1.2.114 350.1.13.10 4.2.7.2.686 [id number] 044 [id number] [facility] 2021-01-18 15:11:53 2021-01-18 15:41:53 Office Visit Justine Garcia [facility] Medical Office Building 1.2840.114 350.1.13.10 4.2.7.2.686 [id number] 044 [id number] [facility] 2021-01-18 15:00:00 2021-01-18 15:00:00 Outpatient R SIERRAJUSTINE BECKER [facility] [id number] [facility] 2021-01-17 00:00:00 2021-01-17 00:00:00 [facility] Building 1..114 350.1.13.10 4.2.7.2.686 [id number] 044 [id number] [facility] 2020-11-22 00:00:00 2020-11-22 00:00:00 Telephone Chan [facility] Office Building One ..114 350.1.13.10 4.2.7.2.686 [id number] 044 [id number] [facility] 2020-11-19 00:00:00 2020-11-19 00:00:00 [facility] 1..114 350.1.13.10 4.2.7.2.686 [id number] 044 [id number] [facility] 2020-10-18 11:40:10 2020-10-18 12:00:10 Roll Wrapper Visit Lab, Adc Fam Pob I Chan [facility] Office Building One .114 350.1.13.10 4.2.7.2.686 [id number] 044 [id number] [facility] 2020-10-18 11:20:00 2020-10-18 11:20:00 Outpatient R [facility] [id number] [facility] 2020-10-11 13:52:36 2020-10-11 14:07:36 Office Visit Chan [facility] Office Building One 1.2.840.114 350.1.13.10 4.2.7.2.686 [id number] 044 [id number] [facility] 2020-10-11 14:00:00 2020-10-11 14:00:00 Outpatient DOUGIE BLACKMON [facility] [id number] [facility] 2020-10-11 00:00:00 2020-10-11 00:00:00 Orders Only Doctor Unassigned, Melmore [facility] 1.20.114 350.1.13.10 4.2.7.2.686 [id number] [facility] 2020-09-28 00:00:00 2020-09-28 00:00:00 [facility] 1.2840.114 350.1.13.10 4.2.7.2.686 [id number] [facility] 2020-09-27 14:00:00 2020-09-27 14:00:00 Outpatient ANGELES BLACKMONONY [facility] [id number] [facility] 2020-08-28 13:43:19 2020-08-28 14:44:37 Office [facility] 1.2840.114 350.1.13.10 4.2.7.2.686 [id number] [facility] 2020-08-28 14:20:00 2020-08-28 14:20:00 Outpatient JELANI NOVAK [facility] [id number] [facility] 2020-08-02 00:00:00 2020-08-02 00:00:00 [facility] 1.2.840.114 350.1.13.10 4.2.7.2.686 [id number] [facility] 2020-07-17 00:00:00 2020-07-17 00:00:00 Orders Only Doctor Unassigned, Melmore [facility] .114 350.1.13.10 4.2.7.2.686 [id number] 009 [id number] [facility] 2020-07-09 00:00:00 2020-07-09 00:00:00 Dougie Burgess [facility] Office Building One ..114 350.1.13.10 4.2.7.2.686 [id number] [id number] [facility] 2020-06-07 17:50:00 2020-06-07 17:50:00 Outpatient JEZ DUNNE [facility] [id number] [facility] 2020-06-07 16:00:00 2020-06-07 16:00:00 Outpatient JEZ DUNNE [facility] [id number] [facility] 2020-05-10 18:10:00 2020-05-10 18:10:00 Outpatient JEZ DUNNE [facility] [id number] [facility] 2020-05-08 00:00:00 2020-05-08 00:00:00 Jelani Espinoza [facility] Building ..114 350.1.13.10 4.2.7.2.686 [id number] [facility] 2020-04-02 00:00:00 2020-04-02 00:00:00 Dougie Burgess [facility] Building .840.114 350.1.13.10 4.2.7.2.686 [id number] 044 [id number] [facility] 2020-03-12 00:00:00 2020-03-12 00:00:00 Dougie Beaulieu [facility] Office Building One 1.840.114 350.1.13.10 4.2.7.2.686 [id number] 044 [id number] [facility] 2020-03-09 00:00:00 2020-03-09 00:00:00 Telephone [facility] 1..840.114 350.1.13.10 4.2.7.2.686 [id number] 092 [id number] [facility] 2020-01-11 00:00:00 2020-01-11 00:00:00 Telephone Jelani Cordon [facility] Building 1.84.114 350.1.13.10 4.2.7.2.686 [id number] 092 [id number] [facility] 2019-10-03 00:00:00 2019-10-03 00:00:00 Telephone Jelani Cordon [facility] 1.840.114 350.1.13.10 4.2.7.2.686 [id number] 092 [id number] [facility] 2019-09-22 08:30:00 2019-09-22 08:30:00 Outpatient DOUGIE BLACKMON [facility] [id number] [facility] 2019-09-19 13:45:00 2019-09-19 13:45:00 Outpatient DOUGIE BLACKMON [facility] [id number] [facility] 2019-09-19 07:50:44 2019-09-19 08:05:44 Telemedici ne Visit Chan Dougie [facility] Building 1.840.114 350.1.13.10 4.2.7.2.686 [id number] 044 [id number] [facility] 2019-07-19 00:00:00 2019-07-19 00:00:00 Refill Jelani Cordon [facility] Building 1.840.114 350.1.13.10 4.2.7.2.686 [id number] [facility] 2019-07-18 00:00:00 2019-07-18 00:00:00 Refgregoria CampbellochJelani lopes [facility] 1.2.840.114 350.1.13.10 4.2.7.2.686 [id number] 092 [id number] [facility] 2019-07-11 00:00:00 2019-07-11 00:00:00 Shannon Giles Dougie [facility] Office Building One 1.2.840.114 350.1.13.10 4.2.7.2.686 [id number] 044 [id number] [facility] 2019-06-13 00:00:00 2019-06-13 00:00:00 Telephone MarilynJelani [facility] Building 1.2.840.114 350.1.13.10 4.2.7.2.686 [id number] 092 [id number] [facility] 2019-05-23 14:20:22 2019-05-23 15:03:09 Office Visit MarilynJelani Chris [facility] Building 1.2.840.114 350.1.13.10 4.2.7.2.686 [id number] 092 [id number] [facility] 2019-05-19 13:41:15 2019-05-19 23:59:00 Outpatient R JELANI CORDON [facility] [id number] [facility] 2019-05-19 13:41:00 2019-05-19 23:59:00 Hospital Encounter Jelani Cordon [facility] 1.2.840.114 350.1.13.10 4.2.7.2.686 [id number] [facility] 2019-05-10 13:35:57 2019-05-10 14:47:10 Office Visit Jelani Cordon [facility] 1.2.840.114 350.1.13.10 4.2.7.2.686 [id number] 092 [id number] [facility] 2019-05-10 00:00:00 2019-05-10 00:00:00 Orders Only Doctor Unassigned, Melmore [facility] 1.2.840.114 350.1.13.10 4.2.7.2.686 [id number] [id number] [facility] 2019-04-19 00:00:00 2019-04-19 00:00:00 Orders Only Doctor Unassigned, Melmore [facility] 1.2.840.114 350.1.13.10 4.2.7.2.686 [id number] [facility] 2016-02-26 03:16:00 2016-02-26 03:16:00 Outpatient Raju_P [facility] [id number] [facility] Results Test Description Test Time Test Comments Results Result Co mments Source [facility] WITH [id number] 21:58:52* Test Item Value Reference Range Interpretation Comme nts WBC (test code = 6690-2) 6.24 See_Comment [Automated [employer]] The system which generated this result transmitted reference range: 4.20 - 10.70 10*3/?L. The reference range was not used to interpret this result as normal/abnormal. RBC (test code = 789-8) 4.28 See_Comment [Automated [employer]] The system which generated this result [...] 33.2 g/dL 31.2-35.0 RDW-SD (test code = 31040-6) 48.7 fL 38.5-51.6 RDW-CV (test code = 788-0) 14.7 % 12.1-15.4 PLT (test code = 777-3) 209 See_Comment [Automated [employer]] The system which generated this result transmitted reference range: 150 - 328 10*3/?L. The reference range was not used to interpret this result as normal/abnormal. MPV (test code = 94934-6) 8.6 fL 9.8-13.0 L NRBC/100 WBC (test code = 7241511298) 0.0 See_Comment [Automated [employer] ssage] The system which generated this result transmitted reference range: 0.0 - 10.0 /100 WBCs. The reference range was not used to interpret this result as normal/abnormal. NRBC x10^3 (test code = 1412800226) See_Comment [Automated [employer]] The system which generated this result transmitted reference range: 10*3/?L. The reference range was not used to interpret this result as normal/abnormal. GRAN MAT (NEUT) % (test code = 770-8) 66.3 % IMM GRAN % (test code = 0232291518) 0.30 % LYMPH % (test code = 736-9) 21.3 % MONO % (test code = 5905-5) 8.8 % EOS % (test code = 713-8) 3.0 % BASO % (test code = 706-2) 0.3 % GRAN MAT x10^3(ANC) (test code = 5971932352) 4.13 10*3/uL 1.99-6.95 IMM GRAN x10^3 (test code = 9860761979) 0.00-0.06 LYMPH x10^3 (test code = 731-0) 1.33 10*3/uL 1.09-3.23 MONO x10^3 (test code = 742-7) 0.55 10*3/uL 0.36-1.02 EOS x10^3 (test code = 711-2) 0.19 10*3/uL 0.06-0.53 BASO x10^3 (test code = 704-7) 0.01-0.09 Lab Interpretation (test code = 80228-2) Abnormal [facility] METABOLIC PANEL (NA, K, CL, CO2, GLUCOSE, BUN, CREATININE, CA)2023-02-24 22:19:20* Test Item Value Reference Range Interpretation Comme nts NA (test code = 9879069069) 137 mmol/L 135-145 K (test code = 7130233074) 3.8 mmol/L 3.5-5.0 CL (test code = 7744989531) 106 mmol/L 98-108 CO2 TOTAL (test code = 0605272834) 24 mmol/L 23-31 AGAP (test code = 5026130413) 7 2-16 BUN (test code = 1613960460) 25 mg/dL 7-23 H GLUCOSE (test code = 6945626118) 109 mg/dL 70-110 CREATININE (test code = 7568624689) 0.56 mg/dL 0.60-1.25 L CALCIUM (test code = 0545903556) 8.8 mg/dL 8.6-10.6 eGFR (test code = 39998-7) 101.5 mL/min/1.73m2 CKD-EPI eGFR (2020). Assuming creatinine has been stable day-to-day for at least three months, the eGFR indicates Category G1 (>= 90 mL/min/1.73 m2) Lab Interpretation (test code = 78851-7) Abnormal [facility] METABOLIC PANEL (NA, K, CL, CO2, GLUCOSE, BUN, CREATININE, CA)2023-02-05 10:07:11* Test Item Value Reference Range Interpretation Comme nts NA (test code = 0652615394) 141 mmol/L 135-145 K (test code = 5904816334) 3.9 mmol/L 3.5-5.0 CL (test code = 0584534424) 110 mmol/L 98-108 H CO2 TOTAL (test code = 6257805233) 24 mmol/L 23-31 AGAP (test code = 2225411665) 7 2-16 BUN (test code = 3616922002) 26 mg/dL 7-23 H GLUCOSE (test code = 3133795371) 88 mg/dL 70-110 CREATININE (test code = 0232240819) 0.62 mg/dL 0.60-1.25 CALCIUM (test code = 6833088916) 8.5 mg/dL 8.6-10.6 L eGFR (test code = 01268-3) 98.4 mL/min/1.73m2 CKD-EPI eGFR (2020). Assuming creatinine has been stable day-to-day for at least three months, the eGFR indicates Category G1 (>= 90 mL/min/1.73 m2) Lab Interpretation (test code = 32413-3) Abnormal [facility] WITH [id number] 08:38:12* Test Item Value Reference Range Interpretation Comme nts WBC (test code = 6690-2) 7.22 See_Comment [Automated [employer]] The system which generated this result transmitted reference range: 4.20 - 10.70 10*3/?L. The reference range was not used to interpret this result as normal/abnormal. RBC (test code = 789-8) 3.64 See_Comment L [Automated [employer]] The system which generated this result transmitted [...] 32.0 g/dL 31.2-35.0 RDW-SD (test code = 82554-4) 50.4 fL 38.5-51.6 RDW-CV (test code = 788-0) 14.9 % 12.1-15.4 PLT (test code = 777-3) 171 See_Comment [Automated [employer]] The system which generated this result transmitted reference range: 150 - 328 10*3/?L. The reference range was not used to interpret this result as normal/abnormal. MPV (test code = 17402-3) 8.5 fL 9.8-13.0 L NRBC/100 WBC (test code = 4290928452) 0.0 See_Comment [Automated me ssage] The system which generated this result transmitted reference range: 0.0 - 10.0 /100 WBCs. The reference range was not used to interpret this result as normal/abnormal. NRBC x10^3 (test code = 1234552139) See_Comment [Automated messa ge] The system which generated this result transmitted reference range: 10*3/?L. The reference range was not used to interpret this result as normal/abnormal. GRAN MAT (NEUT) % (test code = 770-8) 71.3 % IMM GRAN % (test code = 9896095050) 1.00 % LYMPH % (test code = 736-9) 19.3 % MONO % (test code = 5905-5) 6.9 % EOS % (test code = 713-8) 1.4 % BASO % (test code = 706-2) 0.1 % GRAN MAT x10^3(ANC) (test code = 8154798265) 5.15 10*3/uL 1.99-6.95 IMM GRAN x10^3 (test code = 9006641976) 0.07 10*3/uL 0.00-0.06 H LYMPH x10^3 (test code = 731-0) 1.39 10*3/uL 1.09-3.23 MONO x10^3 (test code = 742-7) 0.50 10*3/uL 0.36-1.02 EOS x10^3 (test code = 711-2) 0.10 10*3/uL 0.06-0.53 BASO x10^3 (test code = 704-7) 0.01-0.09 Lab Interpretation (test code = 34351-1) Abnormal [facility] METABOLIC PANEL (NA, K, CL, CO2, GLUCOSE, BUN, CREATININE, CA)2023-02-04 11:48:34* Test Item Value Reference Range Interpretation Comme nts NA (test code = 9566028921) 141 mmol/L 135-145 K (test code = 3322024540) 3.8 mmol/L 3.5-5.0 CL (test code = 7670449244) 109 mmol/L 98-108 H CO2 TOTAL (test code = 5534630414) 23 mmol/L 23-31 AGAP (test code = 2764664070) 9 2-16 BUN (test code = 0494309598) 27 mg/dL 7-23 H GLUCOSE (test code = 8947018572) 114 mg/dL 70-110 H CREATININE (test code = 1697006382) 0.65 mg/dL 0.60-1.25 CALCIUM (test code = 2647127235) 8.7 mg/dL 8.6-10.6 eGFR (test code = 58996-9) 97.0 mL/min/1.73m2 CKD-EPI eGFR (2020). Assuming creatinine has been stable day-to-day for at least three months, the eGFR indicates Category G1 (>= 90 mL/min/1.73 m2) Lab Interpretation (test code = 16613-0) Abnormal [facility] WITH [id number] 10:36:47* Test Item Value Reference Range Interpretation Comme nts WBC (test code = 6690-2) 9.11 See_Comment [Automated [employer]] The system which generated this result transmitted reference range: 4.20 - 10.70 10*3/?L. The reference range was not used to interpret this result as normal/abnormal. RBC (test code = 789-8) 3.59 See_Comment L [Automated [employer]] The system which generated this result transmitted [...] 32.1 g/dL 31.2-35.0 RDW-SD (test code = 28624-6) 50.7 fL 38.5-51.6 RDW-CV (test code = 788-0) 14.7 % 12.1-15.4 PLT (test code = 777-3) 192 See_Comment [Automated messa ge] The system which generated this result transmitted reference range: 150 - 328 10*3/?L. The reference range was not used to interpret this result as normal/abnormal. MPV (test code = 43570-3) 8.6 fL 9.8-13.0 L NRBC/100 WBC (test code = 8549283941) 0.0 See_Comment [Automated [employer] ssage] The system which generated this result transmitted reference range: 0.0 - 10.0 /100 WBCs. The reference range was not used to interpret this result as normal/abnormal. NRBC x10^3 (test code = 1464647512) See_Comment [Automated messa ge] The system which generated this result transmitted reference range: 10*3/?L. The reference range was not used to interpret this result as normal/abnormal. GRAN MAT (NEUT) % (test code = 770-8) 80.5 % IMM GRAN % (test code = 4312372334) 0.70 % LYMPH % (test code = 736-9) 10.6 % MONO % (test code = 5905-5) 7.9 % EOS % (test code = 713-8) 0.1 % BASO % (test code = 706-2) 0.2 % GRAN MAT x10^3(ANC) (test code = 2509105528) 7.33 10*3/uL 1.99-6.95 H IMM GRAN x10^3 (test code = 6252533413) 0.06 10*3/uL 0.00-0.06 LYMPH x10^3 (test code = 731-0) 0.97 10*3/uL 1.09-3.23 L MONO x10^3 (test code = 742-7) 0.72 10*3/uL 0.36-1.02 EOS x10^3 (test code = 711-2) 0.06-0.53 L BASO x10^3 (test code = 704-7) 0.01-0.09 Lab Interpretation (test code = 20574-9) [facility]:57:30* Test Item Value Reference Range Interpretation Comme nts Procalcitonin (test code = 3505948154) 0.06 ng/mL <=0.07 STEPHANIE (test code = [...] lung abscess/empyema. For further information please refer to:[email or web address] Lab Interpretation (test code = 02059-6) Normal [facility] with [id number] 12:23:54* Test Item Value Reference Range Interpretation Comme nts WBC (test code = 6690-2) 4.43 See_Comment [Automated [employer]] The system which generated this result transmitted reference range: 4.20 - 10.70 10*3/?L. The reference range was not used to interpret this result as normal/abnormal. RBC (test code = 789-8) 3.88 See_Comment L [Automated [employer]] The system which generated this result transmitted [...] 31.4 g/dL 31.2-35.0 RDW-SD (test code = 74205-7) 51.0 fL 38.5-51.6 RDW-CV (test code = 788-0) 14.6 % 12.1-15.4 PLT (test code = 777-3) 183 See_Comment [Automated messa ge] The system which generated this result transmitted reference range: 150 - 328 10*3/?L. The reference range was not used to interpret this result as normal/abnormal. MPV (test code = 70775-1) 8.5 fL 9.8-13.0 L NRBC/100 WBC (test code = 2539598057) 0.0 See_Comment [Automated me ssage] The system which generated this result transmitted reference range: 0.0 - 10.0 /100 WBCs. The reference range was not used to interpret this result as normal/abnormal. NRBC x10^3 (test code = 5082469347) See_Comment [Automated messa ge] The system which generated this result transmitted reference range: 10*3/?L. The reference range was not used to interpret this result as normal/abnormal. GRAN MAT (NEUT) % (test code = 770-8) 60.9 % IMM GRAN % (test code = 8855592996) 0.50 % LYMPH % (test code = 736-9) 18.1 % MONO % (test code = 5905-5) 20.3 % EOS % (test code = 713-8) 0.0 % BASO % (test code = 706-2) 0.2 % GRAN MAT x10^3(ANC) (test code = 2521516738) 2.70 10*3/uL 1.99-6.95 IMM GRAN x10^3 (test code = 5577662649) 0.00-0.06 LYMPH x10^3 (test code = 731-0) 0.80 10*3/uL 1.09-3.23 L MONO x10^3 (test code = 742-7) 0.90 10*3/uL 0.36-1.02 EOS x10^3 (test code = 711-2) 0.06-0.53 L BASO x10^3 (test code = 704-7) 0.01-0.09 Lab Interpretation (test code = 15003-2) Abnormal [facility] Metabolic Panel (NA, K, CL, CO2, GLUCOSE, BUN, CREATININE, CA)2023-02-03 10:51:24* Test Item Value Reference Range Interpretation Comme nts NA (test code = 8771794159) 140 mmol/L 135-145 K (test code = 6613583324) 4.0 mmol/L 3.5-5.0 CL (test code = 9174650555) 107 mmol/L 98-108 CO2 TOTAL (test code = 0148369007) 24 mmol/L 23-31 AGAP (test code = 3127202563) 9 2-16 BUN (test code = 0832965717) 24 mg/dL 7-23 H GLUCOSE (test code = 0488160190) 125 mg/dL 70-110 H CREATININE (test code = 3946588511) 0.69 mg/dL 0.60-1.25 CALCIUM (test code = 7370290443) 8.6 mg/dL 8.6-10.6 eGFR (test code = 16958-2) 95.3 mL/min/1.73m2 CKD-EPI eGFR (2020). Assuming creatinine has been stable day-to-day for at least three months, the eGFR indicates Category G1 (>= 90 mL/min/1.73 m2) Lab Interpretation (test code = 59795-8) Abnormal [facility]. METABOLIC PANEL ([id number])2023-02-02 17:27:20* Test Item Value Reference Range Interpretation Comme nts NA (test code = 4375381029) 139 mmol/L 135-145 K (test code = 1651427129) 3.8 mmol/L 3.5-5.0 CL (test code = 3939604828) 106 mmol/L 98-108 CO2 TOTAL (test code = 3209821519) 24 mmol/L 23-31 AGAP (test code = 7195372103) 9 2-16 BUN (test code = 7264497331) 25 mg/dL 7-23 H GLUCOSE (test code = 7207274330) 112 mg/dL 70-110 H CREATININE (test code = 1750022315) 0.79 mg/dL 0.60-1.25 TOTAL BILI (test code = 9784891506) 0.3 mg/dL 0.1-1.1 CALCIUM (test code = 1293866601) 8.8 mg/dL 8.6-10.6 T PROTEIN (test code = 7858747704) 6.4 g/dL 6.3-8.2 ALBUMIN (test code = 8065623734) 3.2 g/dL 3.5-5.0 L ALK PHOS (test code = 5476791925) 65 U/L 34-122 ALTv (test code = 1742-6) 25 U/L 5-50 AST(SGOT) (test code = 7360967032) 30 U/L 13-40 eGFR (test code = 10301-1) 95.1 mL/min/1.73m2 STEPHANIE (test code = STEPHANIE) [...] imaging tests). Lab Interpretation (test code = 25275-0) Abnormal [facility] WITH [id number] 17:15:14* Test Item Value Reference Range Interpretation Comme nts WBC (test code = 6690-2) 4.49 See_Comment [Automated [employer]] The system which generated this result transmitted [...] 32.9 g/dL 31.2-35.0 RDW-SD (test code = 29443-3) 49.1 fL 38.5-51.6 RDW-CV (test code = 788-0) 14.6 % 12.1-15.4 PLT (test code = 777-3) 198 See_Comment [Automated messa ge] The system which generated this result transmitted reference range: 150 - 328 10*3/?L. The reference range was not used to interpret this result as normal/abnormal. MPV (test code = 98928-8) 8.4 fL 9.8-13.0 L NRBC/100 WBC (test code = 1493012275) 0.0 See_Comment [Automated [employer] ssage] The system which generated this result transmitted reference range: 0.0 - 10.0 /100 WBCs. The reference range was not used to interpret this result as normal/abnormal. NRBC x10^3 (test code = 4647990971) See_Comment [Automated messa ge] The system which generated this result transmitted reference range: 10*3/?L. The reference range was not used to interpret this result as normal/abnormal. GRAN MAT (NEUT) % (test code = 770-8) 68.4 % IMM GRAN % (test code = 9230299366) 0.20 % LYMPH % (test code = 736-9) 11.8 % MONO % (test code = 5905-5) 19.4 % EOS % (test code = 713-8) 0.0 % BASO % (test code = 706-2) 0.2 % GRAN MAT x10^3(ANC) (test code = 3383030156) 3.07 10*3/uL 1.99-6.95 IMM GRAN x10^3 (test code = 2422130993) 0.00-0.06 LYMPH x10^3 (test code = 731-0) 0.53 10*3/uL 1.09-3.23 L MONO x10^3 (test code = 742-7) 0.87 10*3/uL 0.36-1.02 EOS x10^3 (test code = 711-2) 0.06-0.53 L BASO x10^3 (test code = 704-7) 0.01-0.09 Lab Interpretation (test code = 12519-1) [facility] [id number] 21:47:26* Test Item Value Reference Range Interpretation Comme nts LACTIC ACID (test code = 9516685686) 1.46 mmol/L 0.50-2.20 Lab Interpretation (test cod e = 90083-9) [facility] [id number] 21:42:21* Test Item Value Reference Range Interpretation Comme nts ESR (test code = 02322-3) 16 See_Comment H [Automated messa ge] The system which generated this result transmitted reference range: 0 - 10 mm/HR. The reference range was not used to interpret this result as normal/abnormal. Lab Interpretation (test code = 20203-4) [facility] (10504)2023-01-25 21:24:38* Test Item Value Reference Range Interpretation Comme nts NA (test code = 8014271497) 143 mmol/L 135-145 K (test code = 4862778739) 3.9 mmol/L 3.5-5.0 CL (test code = 0632094753) 105 mmol/L 98-108 CO2 TOTAL (test code = 7653404870) 29 mmol/L 23-31 AGAP (test code = 3437533074) 9 2-16 BUN (test code = 6385193593) 38 mg/dL 7-23 H GLUCOSE (test code = 1671318167) 100 mg/dL 70-110 CREATININE (test code = 8785763636) 0.81 mg/dL 0.60-1.25 TOTAL BILI (test code = 5099654798) 0.2 mg/dL 0.1-1.1 CALCIUM (test code = 4320654706) 9.5 mg/dL 8.6-10.6 T PROTEIN (test code = 5301454662) 6.8 g/dL 6.3-8.2 ALBUMIN (test code = 0111721738) 3.7 g/dL 3.5-5.0 ALK PHOS (test code = 3616195375) 81 U/L 34-122 ALTv (test code = 1742-6) 22 U/L 5-50 AST(SGOT) (test code = 0404166518) 26 U/L 13-40 eGFR (test code = 1519024548) 92.4 mL/min/1.73m2 STEPHANIE (test code = STEPHANIE) [...] imaging tests). Lab Interpretation (test code = 52250-9) Abnormal [facility] WITH [id number] 20:59:14* Test Item Value Reference Range Interpretation Comme nts WBC (test code = 6690-2) 7.29 See_Comment [Automated [employer]] The system which generated this result transmitted reference range: 4.20 - 10.70 10*3/?L. The reference range was not used to interpret this result as normal/abnormal. RBC (test code = 789-8) 4.52 See_Comment [Automated [employer]] The system which generated this result transmitted [...] 32.1 g/dL 31.2-35.0 RDW-SD (test code = 19864-1) 49.1 fL 38.5-51.6 RDW-CV (test code = 788-0) 14.2 % 12.1-15.4 PLT (test code = 777-3) 202 See_Comment [Automated [employer]] The system which generated this result transmitted reference range: 150 - 328 10*3/?L. The reference range was not used to interpret this result as normal/abnormal. MPV (test code = 04581-4) 8.8 fL 9.8-13.0 L NRBC/100 WBC (test code = 2785328209) 0.0 See_Comment [Automated [employer]] The system which generated this result transmitted reference range: 0.0 - 10.0 /100 WBCs. The reference range was not used to interpret this result as normal/abnormal. NRBC x10^3 (test code = 4461032072) See_Comment [Automated messa ge] The system which generated this result transmitted reference range: 10*3/?L. The reference range was not used to interpret this result as normal/abnormal. GRAN MAT (NEUT) % (test code = 770-8) 72.5 % IMM GRAN % (test code = 7632498950) 0.30 % LYMPH % (test code = 736-9) 15.4 % MONO % (test code = 5905-5) 8.9 % EOS % (test code = 713-8) 2.6 % BASO % (test code = 706-2) 0.3 % GRAN MAT x10^3(ANC) (test code = 0303534476) 5.29 10*3/uL 1.99-6.95 IMM GRAN x10^3 (test code = 4977590010) 0.00-0.06 LYMPH x10^3 (test code = 731-0) 1.12 10*3/uL 1.09-3.23 MONO x10^3 (test code = 742-7) 0.65 10*3/uL 0.36-1.02 EOS x10^3 (test code = 711-2) 0.19 10*3/uL 0.06-0.53 BASO x10^3 (test code = 704-7) 0.01-0.09 Lab Interpretation (test code = 96673-1) [facility] [id number] 20:35:20* Test Item Value Reference Range Interpretation Comme nts TROPONIN I (test code = 0080010291) 0.006 ng/mL <=0.034 STEPHANIE (test code = [...] of biotin. Lab Interpretation (test code = 90940-5) Normal [facility] [id number] 20:33:03* Test Item Value Reference Range Interpretation Comme nts NT-proBNP (test code = 33279-9) 129 pg/mL <=125 STEPHANIE (test code = STEPHANIE) Result Indeterminate-Consid er causes of NT-proBNP elevation other than Heart failure such as acute coronary syndrome, pulmonary embolism, pulmonary hypertension, sepsis, stroke, and renal dysfunction. Lab Interpretation (test code = 21738-5) [facility]OL[facility] (83597)2023-01-20 20:23:37* Test Item Value Reference Range Interpretation Comme nts NA (test code = 6644437816) 142 mmol/L 135-145 K (test code = 0396823087) 4.8 mmol/L 3.5-5.0 CL (test code = 0199627044) 109 mmol/L 98-108 H CO2 TOTAL (test code = 9977146420) 26 mmol/L 23-31 AGAP (test code = 8706189073) 7 2-16 BUN (test code = 0883307714) 33 mg/dL 7-23 H GLUCOSE (test code = 3568113738) 123 mg/dL 70-110 H CREATININE (test code = 8348930209) 0.70 mg/dL 0.60-1.25 TOTAL BILI (test code = 9036258429) 0.5 mg/dL 0.1-1.1 CALCIUM (test code = 9323306284) 9.3 mg/dL 8.6-10.6 T PROTEIN (test code = 0119121171) 7.0 g/dL 6.3-8.2 ALBUMIN (test code = 6236278425) 3.8 g/dL 3.5-5.0 ALK PHOS (test code = 9191947536) 64 U/L 34-122 ALTv (test code = 1742-6) 22 U/L 5-50 AST(SGOT) (test code = 1014836511) 44 U/L 13-40 H eGFR (test code = 5809616239) 109.4 mL/min/1.73m2 STEPHANIE (test code = STEPHANIE) [...] imaging tests). Lab Interpretation (test code = 72406-6) [facility] 20:23:37* Test Item Value Reference Range Interpretation Comme nts MAGNESIUM (test code = 0731646737) 2.2 mg/dL 1.7-2.4 Lab Interpretation (test cod e = 95828-2) [facility] WITH [id number] 20:10:16* Test Item Value Reference Range Interpretation Comme nts WBC (test code = 6690-2) 7.96 See_Comment [Automated [employer]] The system which generated this result transmitted reference range: 4.20 - 10.70 10*3/?L. The reference range was not used to interpret this result as normal/abnormal. RBC (test code = 789-8) 4.60 See_Comment [Automated [employer]] The system which generated this result transmitted [...] 32.6 g/dL 31.2-35.0 RDW-SD (test code = 68638-0) 47.1 fL 38.5-51.6 RDW-CV (test code = 788-0) 14.1 % 12.1-15.4 PLT (test code = 777-3) 221 See_Comment [Automated messa ge] The system which generated this result transmitted reference range: 150 - 328 10*3/?L. The reference range was not used to interpret this result as normal/abnormal. MPV (test code = 22835-5) 8.9 fL 9.8-13.0 L NRBC/100 WBC (test code = 9274119171) 0.0 See_Comment [Automated [employer] ss[employer]] The system which generated this result transmitted reference range: 0.0 - 10.0 /100 WBCs. The reference range was not used to interpret this result as normal/abnormal. NRBC x10^3 (test code = 7456573069) See_Comment [Automated messa ge] The system which generated this result transmitted reference range: 10*3/?L. The reference range was not used to interpret this result as normal/abnormal. GRAN MAT (NEUT) % (test code = 770-8) 69.6 % IMM GRAN % (test code = 4549748897) 0.30 % LYMPH % (test code = 736-9) 18.3 % MONO % (test code = 5905-5) 10.2 % EOS % (test code = 713-8) 1.3 % BASO % (test code = 706-2) 0.3 % GRAN MAT x10^3(ANC) (test code = 6924558037) 5.55 10*3/uL 1.99-6.95 IMM GRAN x10^3 (test code = 0668998082) 0.00-0.06 LYMPH x10^3 (test code = 731-0) 1.46 10*3/uL 1.09-3.23 MONO x10^3 (test code = 742-7) 0.81 10*3/uL 0.36-1.02 EOS x10^3 (test code = 711-2) 0.10 10*3/uL 0.06-0.53 BASO x10^3 (test code = 704-7) 0.01-0.09 Lab Interpretation (test code = 56709-0) [facility] (92596)2022-11-29 23:35:53* Test Item Value Reference Range Interpretation Comme nts NA (test code = 2738054977) 137 mmol/L 135-145 K (test code = 6087097059) 4.4 mmol/L 3.5-5.0 CL (test code = 8983946284) 103 mmol/L 98-108 CO2 TOTAL (test code = 8296800069) 26 mmol/L 23-31 AGAP (test code = 2090649643) 8 2-16 BUN (test code = 8141870123) 30 mg/dL 7-23 H GLUCOSE (test code = 5045012018) 124 mg/dL 70-110 H CREATININE (test code = 6040153145) 0.69 mg/dL 0.60-1.25 TOTAL BILI (test code = 7781415178) 0.3 mg/dL 0.1-1.1 CALCIUM (test code = 7658516710) 9.3 mg/dL 8.6-10.6 T PROTEIN (test code = 0868870871) 6.5 g/dL 6.3-8.2 ALBUMIN (test code = 4475200564) 3.6 g/dL 3.5-5.0 ALK PHOS (test code = 9724487965) 78 U/L 34-122 ALTv (test code = 1742-6) 21 U/L 5-50 AST(SGOT) (test code = 9685852720) 25 U/L 13-40 eGFR (test code = 9447403509) 111.2 mL/min/1.73m2 STEPHANIE (test code = STEPHANIE) [...] imaging tests). Lab Interpretation (test code = 89859-0) Abnormal [facility] WITH [id number] 23:22:49* Test Item Value Reference Range Interpretation Comme nts WBC (test code = 6690-2) 5.98 See_Comment [Automated [employer]] The system which generated this result transmitted reference range: 4.20 - 10.70 10*3/?L. The reference range was not used to interpret this result as normal/abnormal. RBC (test code = 789-8) 4.09 See_Comment L [Automated [employer]] The system which generated this result transmitted [...] 34.2 g/dL 31.2-35.0 RDW-SD (test code = 61143-2) 45.1 fL 38.5-51.6 RDW-CV (test code = 788-0) 13.9 % 12.1-15.4 PLT (test code = 777-3) 210 See_Comment [Automated [employer]] The system which generated this result transmitted reference range: 150 - 328 10*3/?L. The reference range was not used to interpret this result as normal/abnormal. MPV (test code = 92899-5) 8.4 fL 9.8-13.0 L NRBC/100 WBC (test code = 3179200722) 0.0 See_Comment [Automated [employer]] The system which generated this result transmitted reference range: 0.0 - 10.0 /100 WBCs. The reference range was not used to interpret this result as normal/abnormal. NRBC x10^3 (test code = 3528709742) See_Comment [Automated [employer]] The system which generated this result transmitted reference range: 10*3/?L. The reference range was not used to interpret this result as normal/abnormal. GRAN MAT (NEUT) % (test code = 770-8) 68.8 % IMM GRAN % (test code = 8652893965) 0.20 % LYMPH % (test code = 736-9) 18.6 % MONO % (test code = 5905-5) 8.7 % EOS % (test code = 713-8) 3.0 % BASO % (test code = 706-2) 0.7 % GRAN MAT x10^3(ANC) (test code = 5519109872) 4.12 10*3/uL 1.99-6.95 IMM GRAN x10^3 (test code = 4126173293) 0.00-0.06 LYMPH x10^3 (test code = 731-0) 1.11 10*3/uL 1.09-3.23 MONO x10^3 (test code = 742-7) 0.52 10*3/uL 0.36-1.02 EOS x10^3 (test code = 711-2) 0.18 10*3/uL 0.06-0.53 BASO x10^3 (test code = 704-7) 0.04 10*3/uL 0.01-0.09 Lab Interpretation (test code = 84708-4) [facility]211[facility]26 21:19:14* Test Item Value Reference Range Interpretation Comme nts NA (test code = 7309017626) 135 mmol/L 135-145 K (test code = 5402770829) 4.1 mmol/L 3.5-5.0 CL (test code = 7051436270) 102 mmol/L 98-108 CO2 TOTAL (test code = 7637563816) 27 mmol/L 23-31 AGAP (test code = 6420911254) 6 2-16 BUN (test code = 8428382655) 23 mg/dL 7-23 GLUCOSE (test code = 8603842948) 97 mg/dL 70-110 CREATININE (test code = 5193442635) 0.54 mg/dL 0.60-1.25 L TOTAL BILI (test code = 2839797137) 0.4 mg/dL 0.1-1.1 CALCIUM (test code = 7661688732) 8.9 mg/dL 8.6-10.6 T PROTEIN (test code = 7162720514) 6.5 g/dL 6.3-8.2 ALBUMIN (test code = 5947622833) 3.6 g/dL 3.5-5.0 ALK PHOS (test code = 8162984625) 70 U/L 34-122 ALTv (test code = 1742-6) 20 U/L 5-50 AST(SGOT) (test code = 1765239073) 36 U/L 13-40 eGFR (test code = 2224591908) 147.5 mL/min/1.73m2 STEPHANIE (test code = STEPHANIE) [...] imaging tests). Lab Interpretation (test code = 82206-8) Abnormal [facility] WITH [id number] 20:32:47* Test Item Value Reference Range Interpretation Comme nts WBC (test code = 6690-2) 9.43 See_Comment [[employer]] The system which generated this result transmitted reference range: 4.20 - 10.70 10*3/?L. The reference range was not used to interpret this result as normal/abnormal. RBC (test code = 789-8) 4.13 See_Comment L [[employer]] The system which generated this result transmitted [...] 33.8 g/dL 31.2-35.0 RDW-SD (test code = 98317-0) 45.9 fL 38.5-51.6 RDW-CV (test code = 788-0) 14.0 % 12.1-15.4 PLT (test code = 777-3) 171 See_Comment [Automated messa ge] The system which generated this result transmitted reference range: 150 - 328 10*3/?L. The reference range was not used to interpret this result as normal/abnormal. MPV (test code = 20800-9) 8.5 fL 9.8-13.0 L NRBC/100 WBC (test code = 0604235411) 0.0 See_Comment [Automated [employer] ssage] The system which generated this result transmitted reference range: 0.0 - 10.0 /100 WBCs. The reference range was not used to interpret this result as normal/abnormal. NRBC x10^3 (test code = 4672106036) See_Comment [Automated [employer]] The system which generated this result transmitted reference range: 10*3/?L. The reference range was not used to interpret this result as normal/abnormal. GRAN MAT (NEUT) % (test code = 770-8) 79.4 % IMM GRAN % (test code = 7521904091) 0.20 % LYMPH % (test code = 736-9) 9.1 % MONO % (test code = 5905-5) 8.4 % EOS % (test code = 713-8) 2.7 % BASO % (test code = 706-2) 0.2 % GRAN MAT x10^3(ANC) (test code = 9550249835) 7.49 10*3/uL 1.99-6.95 H IMM GRAN x10^3 (test code = 8333327537) 0.00-0.06 LYMPH x10^3 (test code = 731-0) 0.86 10*3/uL 1.09-3.23 L MONO x10^3 (test code = 742-7) 0.79 10*3/uL 0.36-1.02 EOS x10^3 (test code = 711-2) 0.25 10*3/uL 0.06-0.53 BASO x10^3 (test code = 704-7) 0.01-0.09 Lab Interpretation (test code = 78529-9) Abnormal [facility] METABOLIC PANEL (NA, K, CL, CO2, GLUCOSE, BUN, CREATININE, CA)2022-10-30 09:42:32* Test Item Value Reference Range Interpretation Comme nts NA (test code = 4185135324) 135 mmol/L 135-145 K (test code = 7298241383) 4.3 mmol/L 3.5-5.0 CL (test code = 8851479221) 105 mmol/L 98-108 CO2 TOTAL (test code = 4952261825) 25 mmol/L 23-31 AGAP (test code = 1362531476) 5 2-16 BUN (test code = 0977752302) 12 mg/dL 7-23 GLUCOSE (test code = 0292934109) 104 mg/dL 70-110 CREATININE (test code = 0218948044) 0.59 mg/dL 0.60-1.25 L CALCIUM (test code = 2577924263) 8.8 mg/dL 8.6-10.6 eGFR (test code = 5791896017) 133.2 mL/min/1.73m2 STEPHANIE (test code = STEPHANIE) [...] imaging tests). Lab Interpretation (test code = 61009-0) [facility]* Test Item Value Reference Range Interpretation Comme nts MAGNESIUM (test code = 9853693817) 2.0 mg/dL 1.7-2.4 Lab Interpretation (test cod e = 23350-7) Normal [facility] WITH [id number] 09:34:52* Test Item Value Reference Range Interpretation Comme nts WBC (test code = 6690-2) 5.97 See_Comment [Automated [employer]] The system which generated this result transmitted reference range: 4.20 - 10.70 10*3/?L. The reference range was not used to interpret this result as normal/abnormal. RBC (test code = 789-8) 3.81 See_Comment L [Automated [employer]] The system which generated this result transmitted [...] 33.2 g/dL 31.2-35.0 RDW-SD (test code = 80574-6) 44.7 fL 38.5-51.6 RDW-CV (test code = 788-0) 13.5 % 12.1-15.4 PLT (test code = 777-3) 207 See_Comment [Automated messa ge] The system which generated this result transmitted reference range: 150 - 328 10*3/?L. The reference range was not used to interpret this result as normal/abnormal. MPV (test code = 81258-1) 8.4 fL 9.8-13.0 L NRBC/100 WBC (test code = 1735591532) 0.0 See_Comment [Automated [employer] ssage] The system which generated this result transmitted reference range: 0.0 - 10.0 /100 WBCs. The reference range was not used to interpret this result as normal/abnormal. NRBC x10^3 (test code = 5705186319) See_Comment [Automated messa ge] The system which generated this result transmitted reference range: 10*3/?L. The reference range was not used to interpret this result as normal/abnormal. GRAN MAT (NEUT) % (test code = 770-8) 69.1 % IMM GRAN % (test code = 3169818400) 0.20 % LYMPH % (test code = 736-9) 17.3 % MONO % (test code = 5905-5) 9.7 % EOS % (test code = 713-8) 3.2 % BASO % (test code = 706-2) 0.5 % GRAN MAT x10^3(ANC) (test code = 5394944752) 4.13 10*3/uL 1.99-6.95 IMM GRAN x10^3 (test code = 9481298030) 0.00-0.06 LYMPH x10^3 (test code = 731-0) 1.03 10*3/uL 1.09-3.23 L MONO x10^3 (test code = 742-7) 0.58 10*3/uL 0.36-1.02 EOS x10^3 (test code = 711-2) 0.19 10*3/uL 0.06-0.53 BASO x10^3 (test code = 704-7) 0.03 10*3/uL 0.01-0.09 Lab Interpretation (test code = 24370-0) Abnormal [facility] GLUCOSE (AUTOMATED)2022-10-29 13:19:23* Test Item Value Reference Range Interpretation Comme [facility] POCT GLU (test code = 9637607509) 99 mg/dL 70-110 Lab Interpretation (test cod e = 48085-9) Normal [facility] METABOLIC PANEL (NA, K, CL, CO2, GLUCOSE, BUN, CREATININE, CA)2022-10-29 08:19:42* Test Item Value Reference Range Interpretation Comme [facility] NA (test code = 5213303398) 132 mmol/L 135-145 L K (test code = 4885859574) 4.8 mmol/L 3.5-5.0 CL (test code = 3011667549) 102 mmol/L 98-108 CO2 TOTAL (test code = 5247971853) 25 mmol/L 23-31 AGAP (test code = 3234278012) 5 2-16 BUN (test code = 1153914835) 18 mg/dL 7-23 GLUCOSE (test code = 7367658410) 109 mg/dL 70-110 CREATININE (test code = 0095070335) 0.60 mg/dL 0.60-1.25 CALCIUM (test code = 5580299344) 8.8 mg/dL 8.6-10.6 eGFR (test code = 2094336385) 130.6 mL/min/1.73m2 STEPHANIE (test code = STEPHANIE) [...] imaging tests). Lab Interpretation (test code = 65873-1) [facility] 08:19:42* Test Item Value Reference Range Interpretation Comme nts MAGNESIUM (test code = 8249971732) 1.9 mg/dL 1.7-2.4 Lab Interpretation (test cod e = 65748-6) Normal [facility] WITH [id number] 08:00:22* Test Item Value Reference Range Interpretation Comme nts WBC (test code = 6690-2) 8.45 See_Comment [Automated [employer]] The system which generated this result transmitted reference range: 4.20 - 10.70 10*3/?L. The reference range was not used to interpret this result as normal/abnormal. RBC (test code = 789-8) 3.98 See_Comment L [Automated [employer]] The system which generated this result transmitted [...] 33.8 g/dL 31.2-35.0 RDW-SD (test code = 83511-1) 44.5 fL 38.5-51.6 RDW-CV (test code = 788-0) 13.6 % 12.1-15.4 PLT (test code = 777-3) 195 See_Comment [Automated messa ge] The system which generated this result transmitted reference range: 150 - 328 10*3/?L. The reference range was not used to interpret this result as normal/abnormal. MPV (test code = 79278-7) 8.7 fL 9.8-13.0 L NRBC/100 WBC (test code = 8974794598) 0.0 See_Comment [Automated me ssage] The system which generated this result transmitted reference range: 0.0 - 10.0 /100 WBCs. The reference range was not used to interpret this result as normal/abnormal. NRBC x10^3 (test code = 1716241014) See_Comment [Automated messa ge] The system which generated this result transmitted reference range: 10*3/?L. The reference range was not used to interpret this result as normal/abnormal. GRAN MAT (NEUT) % (test code = 770-8) 75.3 % IMM GRAN % (test code = 8585932040) 0.20 % LYMPH % (test code = 736-9) 15.1 % MONO % (test code = 5905-5) 8.5 % EOS % (test code = 713-8) 0.7 % BASO % (test code = 706-2) 0.2 % GRAN MAT x10^3(ANC) (test code = 7079401407) 6.35 10*3/uL 1.99-6.95 IMM GRAN x10^3 (test code = 3172536678) 0.00-0.06 LYMPH x10^3 (test code = 731-0) 1.28 10*3/uL 1.09-3.23 MONO x10^3 (test code = 742-7) 0.72 10*3/uL 0.36-1.02 EOS x10^3 (test code = 711-2) 0.06 10*3/uL 0.06-0.53 BASO x10^3 (test code = 704-7) 0.01-0.09 Lab Interpretation (test code = 25453-4) Abnormal [facility] GLUCOSE (AUTOMATED)2022-10-29 02:05:51* Test Item Value Reference Range Interpretation Comme nts POCT GLU (test code = 3638505042) 162 mg/dL 70-110 H Lab Interpretation (test cod e = 61839-5) [facility] 21:27:56* Test Item Value Reference Range Interpretation Comme nts POCT GLU (test code = 0632007776) 104 mg/dL 70-110 Lab Interpretation (test cod e = 08864-8) [facility] 20:41:29* Test Item Value Reference Range Interpretation Comme nts Procalcitonin (test code = 7438805929) 0.12 ng/mL <=0.07 H STEPHANIE (test code [...] lung abscess/empyema. For further information please refer to:[email or web address] Lab Interpretation (test code = 95885-1) [facility] (NA, K, CL, CO2, GLUCOSE, BUN, CREATININE, CA)2022-10-28 17:04:09* Test Item Value Reference Range Interpretation Comme nts NA (test code = 3886539656) 133 mmol/L 135-145 L K (test code = 0132546908) 3.9 mmol/L 3.5-5.0 CL (test code = 5995641160) 103 mmol/L 98-108 CO2 TOTAL (test code = 5455661470) 26 mmol/L 23-31 AGAP (test code = 2607426042) 4 2-16 BUN (test code = 3168590283) 18 mg/dL 7-23 GLUCOSE (test code = 3768575561) 118 mg/dL 70-110 H CREATININE (test code = 5352578222) 0.59 mg/dL 0.60-1.25 L CALCIUM (test code = 8118556912) 8.5 mg/dL 8.6-10.6 L eGFR (test code = 4536590025) 133.2 mL/min/1.73m2 STEPHANIE (test code = STEPHANIE) [...] imaging tests). Lab Interpretation (test code = 79591-3) [facility]2022-10-28 16:57:29* Test Item Value Reference Range Interpretation Comme [facility] POCT GLU (test code = 1861276707) 98 mg/dL 70-110 Lab Interpretation (test cod e = 94002-6) Normal [facility] WITH [id number] 16:01:20* Test Item Value Reference Range Interpretation Comme [facility] WBC (test code = 6690-2) 8.13 See_Comment [Automated [employer]] The system which generated this result transmitted [...] 33.9 g/dL 31.2-35.0 RDW-SD (test code = 91876-3) 44.5 fL 38.5-51.6 RDW-CV (test code = 788-0) 13.6 % 12.1-15.4 PLT (test code = 777-3) 166 See_Comment [Automated messa ge] The system which generated this result transmitted reference range: 150 - 328 10*3/?L. The reference range was not used to interpret this result as normal/abnormal. MPV (test code = 36916-1) 8.6 fL 9.8-13.0 L NRBC/100 WBC (test code = 8285547055) 0.0 See_Comment [Automated me ssage] The system which generated this result transmitted reference range: 0.0 - 10.0 /100 WBCs. The reference range was not used to interpret this result as normal/abnormal. NRBC x10^3 (test code = 0627057693) See_Comment [Automated messa ge] The system which generated this result transmitted reference range: 10*3/?L. The reference range was not used to interpret this result as normal/abnormal. GRAN MAT (NEUT) % (test code = 770-8) 77.6 % IMM GRAN % (test code = 3651135019) 0.20 % LYMPH % (test code = 736-9) 11.1 % MONO % (test code = 5905-5) 10.8 % EOS % (test code = 713-8) 0.2 % BASO % (test code = 706-2) 0.1 % GRAN MAT x10^3(ANC) (test code = 5499713084) 6.30 10*3/uL 1.99-6.95 IMM GRAN x10^3 (test code = 1749865577) 0.00-0.06 LYMPH x10^3 (test code = 731-0) 0.90 10*3/uL 1.09-3.23 L MONO x10^3 (test code = 742-7) 0.88 10*3/uL 0.36-1.02 EOS x10^3 (test code = 711-2) 0.06-0.53 L BASO x10^3 (test code = 704-7) 0.01-0.09 Lab Interpretation (test code = 39885-6) [facility] Whole [id number] 15:43:36* Test Item Value Reference Range Interpretation Comme nts LACTIC ACID (test code = 0004820993) 1.48 mmol/L 0.50-2.20 Lab Interpretation (test cod e = 69472-4) [facility]2022-10-28 13:55:42* Test Item Value Reference Range Interpretation Comme nts POCT GLU (test code = 5469449830) 108 mg/dL 70-110 Lab Interpretation (test cod e = 30869-7) Normal [facility] Hem[facility] (A1C)2022-10-28 13:35:21* Test Item Value Reference Range Interpretation Comme nts HGB A1C (test code = 4548-4) 5.4 % 4.0-5.7 STEPHANIE (test code = STEPHANIE) Reference RangesNormal: <5.7%Prediabetes: 5.7 - 6.4%Diabetes: > 6.5% Lab Interpretation (test code = 31490-0) [facility] 12:48:08* Test Item Value Reference Range Interpretation Comme nts MAGNESIUM (test code = 0058264345) 2.0 mg/dL 1.7-2.4 Lab Interpretation (test cod e = 30152-7) Normal [facility] [id number] 04:32:06* Test Item Value Reference Range Interpretation Comme nts TROPONIN I (test code = 3932722826) 0.029 ng/mL <=0.034 STEPHANIE (test code = [...] of biotin. Lab Interpretation (test code = 56705-0) Normal [facility]. METABOLIC PANEL (11422)2022-10-28 04:21:43* Test Item Value Reference Range Interpretation Comme nts NA (test code = 1999875423) 133 mmol/L 135-145 L K (test code = 0511080237) 4.2 mmol/L 3.5-5.0 CL (test code = 1628635321) 100 mmol/L 98-108 CO2 TOTAL (test code = 7564748416) 23 mmol/L 23-31 AGAP (test code = 8769711753) 10 2-16 BUN (test code = 7702760325) 24 mg/dL 7-23 H GLUCOSE (test code = 0338576867) 217 mg/dL 70-110 H CREATININE (test code = 2493260836) 0.79 mg/dL 0.60-1.25 TOTAL BILI (test code = 1558891964) 0.5 mg/dL 0.1-1.1 CALCIUM (test code = 5282986596) 8.6 mg/dL 8.6-10.6 T PROTEIN (test code = 1496156205) 6.6 g/dL 6.3-8.2 ALBUMIN (test code = 5264165065) 3.6 g/dL 3.5-5.0 ALK PHOS (test code = 0545085066) 76 U/L 34-122 ALTv (test code = 1742-6) 20 U/L 5-50 AST(SGOT) (test code = 4163013548) 31 U/L 13-40 eGFR (test code = 1083283091) 95.1 mL/min/1.73m2 STEPHANIE (test code = STEPHANIE) [...] imaging tests). Lab Interpretation (test code = 97459-5) Abnormal [facility] WITH [id number] 03:55:19* Test Item Value Reference Range Interpretation [...] 33.9 g/dL 31.2-35.0 RDW-SD (test code = 00759-3) 44.8 fL 38.5-51.6 RDW-CV (test code = 788-0) 13.6 % 12.1-15.4 PLT (test code = 777-3) 189 See_Comment [Automated message] The system which generated this result transmitted reference range: 150 - 328 10*3/?L. The reference range was not used to interpret this result as normal/abnormal. MPV (test code = 89693-3) 8.7 fL 9.8-13.0 L NRBC/100 WBC (test code = 6490381708) 0.0 See_Comment [Automated message] The system which generated this result transmitted reference range: 0.0 - 10.0 /100 WBCs. The reference range was not used to interpret this result as normal/abnormal. NRBC x10^3 (test code = 2951841564) See_Comment [Automated message] The system which generated this result transmitted reference range: 10*3/?L. The reference range was not used to interpret this result as normal/abnormal. GRAN MAT (NEUT) % (test code = 770-8) 83.5 % IMM GRAN % (test code = 7644361719) 0.60 % LYMPH % (test code = 736-9) 6.0 % MONO % (test code = 5905-5) 9.6 % EOS % (test code = 713-8) 0.1 % BASO % (test code = 706-2) 0.2 % GRAN MAT x10^3(ANC) (test code = 7485447949) 10.59 10*3/uL 1.99-6.95 H IMM GRAN x10^3 (test code = 4715907255) 0.08 10*3/uL 0.00-0.06 H LYMPH x10^3 (test code = 731-0) 0.76 10*3/uL 1.09-3.23 L MONO x10^3 (test code = 742-7) 1.21 10*3/uL 0.36-1.02 H EOS x10^3 (test code = 711-2) 0.06-0.53 L BASO x10^3 (test code = 704-7) 0.01-0.09 Lab Interpretation (test code = 09806-9) Abnormal [facility] CULTURE [id number] 03:02:22* Test Item Value Reference Range Interpretation Comme nts Blood Culture-Aerobic (test code = 50911-4) No organisms isolated No growth Previous preliminary [...] 2201 CDT Blood Culture-Anaerobic (test code = 01282-7) No organisms isolated No growth Previous preliminary [...] 2201 CDT Lab Interpretation (test code = 52147-6) Normal [facility] CULTURE [id number] 03:02:22* Test Item Value Reference Range Interpretation Comme nts Blood Culture-Aerobic (test code = 53163-8) No organisms isolated No growth Previous preliminary [...] 2201 CDT Blood Culture-Anaerobic (test code = 07810-6) No organisms isolated No growth Previous preliminary [...] 2201 CDT Lab Interpretation (test code = 35273-1) [facility] (84618)2022-07-21 03:19:43* Test Item Value Reference Range Interpretation Comme nts NA (test code = 0077227839) 137 mmol/L 135-145 K (test code = 9942869184) 4.6 mmol/L 3.5-5.0 CL (test code = 6465593933) 102 mmol/L 98-108 CO2 TOTAL (test code = 4593732956) 25 mmol/L 23-31 AGAP (test code = 9337558381) 10 2-16 BUN (test code = 7075389950) 16 mg/dL 7-23 GLUCOSE (test code = 3401775361) 147 mg/dL 70-110 H CREATININE (test code = 4995976020) 1.06 mg/dL 0.60-1.25 TOTAL BILI (test code = 8160680296) 0.4 mg/dL 0.1-1.1 CALCIUM (test code = 2391843317) 9.3 mg/dL 8.6-10.6 T PROTEIN (test code = 9649497972) 6.3 g/dL 6.3-8.2 ALBUMIN (test code = 9853656414) 3.7 g/dL 3.5-5.0 ALK PHOS (test code = 5498301898) 85 U/L 34-122 ALTv (test code = 1742-6) 19 U/L 5-50 AST(SGOT) (test code = 9811038617) 23 U/L 13-40 eGFR (test code = 9384707591) 67.7 mL/min/1.73m2 STEPHANIE (test code = STEPHANIE) [...] imaging tests). Lab Interpretation (test code = 32335-4) [facility] [id number] 03:10:02* Test Item Value Reference Range Interpretation Comme nts ESR (test code = 28078-6) 20 See_Comment H [Automated [employer]] The system which generated this result transmitted reference range: 0 - 10 mm/HR. The reference range was not used to interpret this result as normal/abnormal. Lab Interpretation (test code = 32088-2) Abnormal [facility] WITH [id number] 02:50:23* Test Item Value Reference Range Interpretation Comme nts WBC (test code = 6690-2) 8.04 See_Comment [Automated [employer]] The system which generated this result transmitted [...] 32.6 g/dL 31.2-35.0 RDW-SD (test code = 24451-1) 46.5 fL 38.5-51.6 RDW-CV (test code = 788-0) 13.5 % 12.1-15.4 PLT (test code = 777-3) 239 See_Comment [Automated messa ge] The system which generated this result transmitted reference range: 150 - 328 10*3/?L. The reference range was not used to interpret this result as normal/abnormal. MPV (test code = 26139-7) 8.6 fL 9.8-13.0 L NRBC/100 WBC (test code = 4527234331) 0.0 See_Comment [Automated [employer] ssage] The system which generated this result transmitted reference range: 0.0 - 10.0 /100 WBCs. The reference range was not used to interpret this result as normal/abnormal. NRBC x10^3 (test code = 3888724129) See_Comment [Automated messa ge] The system which generated this result transmitted reference range: 10*3/?L. The reference range was not used to interpret this result as normal/abnormal. GRAN MAT (NEUT) % (test code = 770-8) 79.8 % IMM GRAN % (test code = 5028981336) 0.50 % LYMPH % (test code = 736-9) 11.8 % MONO % (test code = 5905-5) 6.8 % EOS % (test code = 713-8) 0.7 % BASO % (test code = 706-2) 0.4 % GRAN MAT x10^3(ANC) (test code = 3821433405) 6.41 10*3/uL 1.99-6.95 IMM GRAN x10^3 (test code = 9418032683) 0.04 10*3/uL 0.00-0.06 LYMPH x10^3 (test code = 731-0) 0.95 10*3/uL 1.09-3.23 L MONO x10^3 (test code = 742-7) 0.55 10*3/uL 0.36-1.02 EOS x10^3 (test code = 711-2) 0.06 10*3/uL 0.06-0.53 BASO x10^3 (test code = 704-7) 0.03 10*3/uL 0.01-0.09 Lab Interpretation (test code = 05991-9) [facility] [id number] 21:13:33* Test Item Value Reference Range Interpretation Comme nts ESR (test code = 50246-3) 11 See_Comment H [Automated messa ge] The system which generated this result transmitted reference range: 0 - 10 mm/HR. The reference range was not used to interpret this result as normal/abnormal. Lab Interpretation (test code = 01820-1) [facility] (71535)2022-07-18 20:55:16* Test Item Value Reference Range Interpretation Comme nts NA (test code = 0902595384) 135 mmol/L 135-145 K (test code = 2790506704) 4.7 mmol/L 3.5-5.0 CL (test code = 6722824590) 103 mmol/L 98-108 CO2 TOTAL (test code = 5513110159) 23 mmol/L 23-31 AGAP (test code = 2941362053) 9 2-16 BUN (test code = 6357801450) 15 mg/dL 7-23 GLUCOSE (test code = 6225985277) 89 mg/dL 70-110 CREATININE (test code = 5281795280) 0.71 mg/dL 0.60-1.25 TOTAL BILI (test code = 7212638616) 0.5 mg/dL 0.1-1.1 CALCIUM (test code = 1664143462) 8.9 mg/dL 8.6-10.6 T PROTEIN (test code = 8644171631) 6.1 g/dL 6.3-8.2 L ALBUMIN (test code = 1753563186) 3.5 g/dL 3.5-5.0 ALK PHOS (test code = 0681618497) 82 U/L 34-122 ALTv (test code = 1742-6) 18 U/L 5-50 AST(SGOT) (test code = 3071562582) 24 U/L 13-40 eGFR (test code = 4558677378) 107.6 mL/min/1.73m2 STEPHANIE (test code = STEPHANIE) [...] imaging tests). Lab Interpretation (test code = 42463-2) Abnormal [facility] WITH [id number] 20:37:13* Test Item Value Reference Range Interpretation Comme nts WBC (test code = 6690-2) 6.41 See_Comment [Automated [employer]] The system which generated this result transmitted reference range: 4.20 - 10.70 10*3/?L. The reference range was not used to interpret this result as normal/abnormal. RBC (test code = 789-8) 4.17 See_Comment L [Automated messa ge] The system [...] 32.9 g/dL 31.2-35.0 RDW-SD (test code = 94294-3) 45.5 fL 38.5-51.6 RDW-CV (test code = 788-0) 13.4 % 12.1-15.4 PLT (test code = 777-3) 246 See_Comment [Automated [employer]] The system which generated this result transmitted reference range: 150 - 328 10*3/?L. The reference range was not used to interpret this result as normal/abnormal. MPV (test code = 70573-3) 8.7 fL 9.8-13.0 L IPF % (test code = 8885276219) 0.8 % 1.2-10.7 L Platelet count measured by fluorescence method. NRBC/100 WBC (test code = 2977068432) 0.0 See_Comment [Automated [employer] ssage] The system which generated this result transmitted reference range: 0.0 - 10.0 /100 WBCs. The reference range was not used to interpret this result as normal/abnormal. NRBC x10^3 (test code = 4348195307) See_Comment [Automated [employer]] The system which generated this result transmitted reference range: 10*3/?L. The reference range was not used to interpret this result as normal/abnormal. GRAN MAT (NEUT) % (test code = 770-8) 70.9 % IMM GRAN % (test code = 0460896598) 0.30 % LYMPH % (test code = 736-9) 18.3 % MONO % (test code = 5905-5) 8.1 % EOS % (test code = 713-8) 1.9 % BASO % (test code = 706-2) 0.5 % GRAN MAT x10^3(ANC) (test code = 5666965114) 4.55 10*3/uL 1.99-6.95 IMM GRAN x10^3 (test code = 4381720612) 0.00-0.06 LYMPH x10^3 (test code = 731-0) 1.17 10*3/uL 1.09-3.23 MONO x10^3 (test code = 742-7) 0.52 10*3/uL 0.36-1.02 EOS x10^3 (test code = 711-2) 0.12 10*3/uL 0.06-0.53 BASO x10^3 (test code = 704-7) 0.03 10*3/uL 0.01-0.09 Lab Interpretation (test code = 84072-1) [id number] 17:59:56* Test Item Value Reference Range Interpretation Comme nts TROPONIN I (test code = 9723623054) 0.008 ng/mL <=0.034 STEPHANIE (test code = [...] of biotin. Lab Interpretation (test code = 53981-0) [facility] 17:48:33* Test Item Value Reference Range Interpretation Comme nts MAGNESIUM (test code = 9511007017) 1.9 mg/dL 1.7-2.4 Lab Interpretation (test cod e = 53303-2) [facility] (47118)2022-06-10 17:48:14* Test Item Value Reference Range Interpretation Comme nts NA (test code = 5658734309) 135 mmol/L 135-145 K (test code = 6176525964) 4.2 mmol/L 3.5-5.0 CL (test code = 2846807092) 104 mmol/L 98-108 CO2 TOTAL (test code = 1606320829) 24 mmol/L 23-31 AGAP (test code = 4422738124) 7 2-16 BUN (test code = 4800040095) 13 mg/dL 7-23 GLUCOSE (test code = 3478175493) 129 mg/dL 70-110 H CREATININE (test code = 5324326727) 0.67 mg/dL 0.60-1.25 TOTAL BILI (test code = 5451045908) 0.6 mg/dL 0.1-1.1 CALCIUM (test code = 3797757303) 8.5 mg/dL 8.6-10.6 L T PROTEIN (test code = 3945782996) 6.0 g/dL 6.3-8.2 L ALBUMIN (test code = 9407976698) 3.2 g/dL 3.5-5.0 L ALK PHOS (test code = 3369333939) 82 U/L 34-122 ALTv (test code = 1742-6) 28 U/L 5-50 AST(SGOT) (test code = 3078295785) 71 U/L 13-40 H eGFR (test code = 3793512226) 115.0 mL/min/1.73m2 STEPHANIE (test code = STEPHANIE) [...] imaging tests). Lab Interpretation (test code = 73282-8) [facility] 17:47:53* Test Item Value Reference Range Interpretation Comme nts LIPASE (test code = 7616668240) 124 U/L 0-220 Lab Interpretation (test cod e = 50973-1) [facility] [id number] 17:34:30* Test Item Value Reference Range Interpretation Comme nts WBC (test code = 6690-2) 8.77 See_Comment [Automated [employer]] The system which generated this result transmitted reference range: 4.20 - 10.70 10*3/?L. The reference range was not used to interpret this result as normal/abnormal. RBC (test code = 789-8) 4.06 See_Comment L [Automated [employer]] The system which generated this result transmitted [...] 34.1 g/dL 31.2-35.0 RDW-SD (test code = 62033-7) 42.5 fL 38.5-51.6 RDW-CV (test code = 788-0) 12.8 % 12.1-15.4 PLT (test code = 777-3) 297 See_Comment [Automated [employer] ge] The system which generated this result transmitted reference range: 150 - 328 10*3/?L. The reference range was not used to interpret this result as normal/abnormal. MPV (test code = 41484-5) 8.1 fL 9.8-13.0 L NRBC/100 WBC (test code = 4193348218) 0.0 See_Comment [Automated [employer] ssage] The system which generated this result transmitted reference range: 0.0 - 10.0 /100 WBCs. The reference range was not used to interpret this result as normal/abnormal. NRBC x10^3 (test code = 4098775049) See_Comment [Automated [employer] ge] The system which generated this result transmitted reference range: 10*3/?L. The reference range was not used to interpret this result as normal/abnormal. GRAN MAT (NEUT) % (test code = 770-8) 81.2 % IMM GRAN % (test code = 7334144401) 0.20 % LYMPH % (test code = 736-9) 9.5 % MONO % (test code = 5905-5) 7.8 % EOS % (test code = 713-8) 1.0 % BASO % (test code = 706-2) 0.3 % GRAN MAT x10^3(ANC) (test code = 4703915528) 7.12 10*3/uL 1.99-6.95 H IMM GRAN x10^3 (test code = 9098338991) 0.00-0.06 LYMPH x10^3 (test code = 731-0) 0.83 10*3/uL 1.09-3.23 L MONO x10^3 (test code = 742-7) 0.68 10*3/uL 0.36-1.02 EOS x10^3 (test code = 711-2) 0.09 10*3/uL 0.06-0.53 BASO x10^3 (test code = 704-7) 0.03 10*3/uL 0.01-0.09 Lab Interpretation (test code = 57968-5) Abnormal [facility]. METABOLIC PANEL (93501)2022-05-27 00:29:45* Test Item Value Reference Range Interpretation Comme nts NA (test code = 3853912370) 132 mmol/L 135-145 L K (test code = 2883894462) 4.4 mmol/L 3.5-5.0 CL (test code = 0884682875) 101 mmol/L 98-108 CO2 TOTAL (test code = 8868823617) 23 mmol/L 23-31 AGAP (test code = 0763561984) 8 2-16 BUN (test code = 1597214196) 25 mg/dL 7-23 H GLUCOSE (test code = 8672776807) 173 mg/dL 70-110 H CREATININE (test code = 0578681927) 0.71 mg/dL 0.60-1.25 TOTAL BILI (test code = 4259024812) 0.8 mg/dL 0.1-1.1 CALCIUM (test code = 2141987263) 8.7 mg/dL 8.6-10.6 T PROTEIN (test code = 9668469790) 6.4 g/dL 6.3-8.2 ALBUMIN (test code = 0480175559) 3.7 g/dL 3.5-5.0 ALK PHOS (test code = 9303801988) 79 U/L 34-122 ALTv (test code = 1742-6) 26 U/L 5-50 AST(SGOT) (test code = 4163233975) 36 U/L 13-40 eGFR (test code = 2030585238) 107.6 mL/min/1.73m2 STEPHANIE (test code = STEPHANIE) [...] imaging tests). Lab Interpretation (test code = 68679-8) Abnormal [facility] WITH KIJK6121-09-18 23:12:37* Test Item Value Reference Range Interpretation [...] 34.0 g/dL 31.2-35.0 RDW-SD (test code = 31284-4) 46.2 fL 38.5-51.6 RDW-CV (test code = 788-0) 13.5 % 12.1-15.4 PLT (test code = 777-3) 263 See_Comment [Automated message] The system which generated this result transmitted reference range: 150 - 328 10*3/?L. The reference range was not used to interpret this result as normal/abnormal. MPV (test code = 92636-1) 8.4 fL 9.8-13.0 L NRBC/100 WBC (test code =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 patient is doing pretty good and the caregiver from [place] system is helping)Discharge InstructionsDo you understand your at-home instructions?: YesMedicationsHave you filled your prescriptions and do you have them in your home? : YesDo you know how to take your medications?: Yes Follow Up AppointmentHas a follow up appointment been scheduled?: Yes (Per patient will be following up with [facility] primary care with home visits and he will have skilled nurse, loader malt house, OT,PT, RT and social insurance specialist)Do you have any questions about your follow up appointments?: NoAre you able to get to your appointment? Who will be taking you?: Yes (Per [employer] provides transportation to his appt in [facility])Home Health AssistanceHas the home health nurse contacted [...] Phone 11/05/2022 9:00 AM Dougie Giles MD [facility] [phone] 09/02/2023 1:45 PM Natalie Trivedi FNP [facility] [phone] 47961-4Dclbmbywv encounter WgxxLW2411-03-06Y35:40:19Telephone encounter NoteTXT1.2.840.053577.1.13.104.2.7. 2.586261|[id number] for patient mdko893275450Ubqil B Porter RN[address] OrrzMmfiewwxnBmekbmaacDLWP092220999 5GYVYOBOJKXKOSQTXNCRISH9601-82-13Y3 2:40:191.2.840.596866.1.72.3.15|1.2 .840.024351.1.13.104.2.7.2.727879_1 [id number] Ena Vaughn RN [facility] 2022-10-30 12:03:26 7556-70-26N10:03:26 Problem: Respiratory Function - ImpairedGoal: Adequate work of breathingOutcome: Adequate for discharge Problem: Falls, Risk ofGoal: Absence of fallsOutcome: Adequate for discharge Problem: Skin integrity Impaired (Risk or Actual)Goal: Wound healingOutcome: Adequate for dischargeGoal: Prevention of new skin breakdownOutcome: Adequate for discharge Problem: Discharge PlanningGoal: Adequate for dischargeOutcome: Adequate for discharge 38619-0Nssc of care vvswWB5135-77-18A13:03:36Plan of care noteTXT1.2.840.385665.1.13.104.2.7. 2.335735|[id number] for patient wxzu003975486Qcnowc L Keys RN[address] Fb[id number] 0ZDOAPREFIKIIWOYKTQWGQX0457-62-63X3 2:03:361.2.840.533254.1.72.3.15|1.2 .840.032719.1.13.104.2.7.2.727879_1 [id number] Lisa Muro RN [facility] 2022-10-29 22:21:59 1024-39-95E56:21:59 Problem: Respiratory Function - ImpairedGoal: Adequate work of breathingOutcome: Progressing as expected Problem: Falls, Risk ofGoal: Absence of fallsOutcome: Progressing as expected Problem: Skin integrity Impaired (Risk or Actual)Goal: Wound healingOutcome: Progressing as expectedGoal: Prevention of new skin breakdownOutcome: Progressing as expected Problem: Discharge PlanningGoal: Adequate for dischargeOutcome: Progressing as expected 85360-0Sbbu of care tutoSM7631-36-07C14:22:03Plan of care noteTXT1.2.840.972835.1.13.104.2.7. 2.956709|[id number] for patient iqyv185450781Fqgrzi R Morales [id number] 2VTYPQYXWBGVYLFQRSXEANR7716-80-56Z2 2:22:031.2.840.349736.1.72.3.15|1.2 .840.884084.1.13.104.2.7.2.727879_1 [id number] Fatimah Whitmore [facility] 2022-10-29 15:19:40 8621-51-28X09:19:40 Problem: Respiratory Function - ImpairedGoal: Adequate work of breathingOutcome: Progressing as expected Problem: Falls, Risk ofGoal: Absence of fallsOutcome: Progressing as expected Problem: Skin integrity Impaired (Risk or Actual)Goal: Wound healingOutcome: Progressing as expectedGoal: Prevention of new skin breakdownOutcome: Progressing as expected Problem: Discharge PlanningGoal: Adequate for dischargeOutcome: Progressing as expected 42481-2Yfay of care vqmgOM3887-29-18I33:19:43Plan of care noteTXT1.2.840.966737.1.13.104.2.7. 2.594044|[id number] for patient [id number] 4QZJOEZPYRFZEZNZBPEROTX7437-83-58I3 5:19:431.2.840.985880.1.72.3.15|1.2 .840.537208.1.13.104.2.7.2.727879_1 [id number] [facility] 2022-10-29 00:32:29 7881-68-99A69:32:29 Problem: Respiratory Function - ImpairedGoal: Adequate work of breathingOutcome: Progressing as expected Problem: Falls, Risk ofGoal: Absence of fallsOutcome: Progressing as expected Problem: Skin integrity Impaired (Risk or Actual)Goal: Wound healingOutcome: Progressing as expectedGoal: Prevention of new skin breakdownOutcome: Progressing as expected Problem: Discharge PlanningGoal: Adequate for dischargeOutcome: Progressing as expected 66116-2Ksiq of care jfzmFY0993-24-52A98:32:32Plan of care noteTXT1.2.840.690640.1.13.104.2.7. 2.969044|[id number] for patient mztt204322494Vkiolqel A Bachynsky RN[id number] 3HNPHPXKGCVBGDAVUHEAWKD3299-10-11M4 0:32:321.2.840.459606.1.72.3.15|1.2 .840.634289.1.13.104.2.7.2.727879_1 [id number] Aubrey Duron RN [facility] 2022-10-28 14:26:16 7422-89-94D50:26:16 Problem: Respiratory Function - ImpairedGoal: Adequate work of breathingOutcome: Progressing as expected Problem: Falls, Risk ofGoal: Absence of fallsOutcome: Progressing as expected Problem: Skin integrity Impaired (Risk or Actual)Goal: Wound healingOutcome: Progressing as expectedGoal: Prevention of new skin breakdownOutcome: Progressing as expected Problem: Discharge PlanningGoal: Adequate for dischargeOutcome: Progressing as expected 58071-8Vstw of care aqioDH8275-45-98U04:26:19Plan of care noteTXT1.2.840.900746.1.13.104.2.7. 2.541988|[id number] for patient [id number] 7RNQNQPYRRQPZDJFOUEFCJH7092-48-07O7 4:26:191.2.840.809580.1.72.3.15|1.2 .840.119235.1.13.104.2.7.2.727879_1 [id number] [facility] 2022-10-28 05:13:15 6480-34-16P60:13:15 Patient transferred to [facility] for diagnosis of PNA of RLLPatient agrees to transfer/admit plan and verbalized understanding of plan of care, family aware of planPatient awake alert, oriented, resp reg unlabored, skin w/d PIV patent, no s/s infiltration noted, No adverse reaction to medications given while in ED. Report given to [facility] EMS personnel 17377-3Qvljjjbvc department UtfwHU2556-06-69E47:13:48Emergency department NoteTXT1.2.840.088488.1.13.104.2.7. 2.268866|[id number] for patient [id number] 3KNJIZLIKANWUBRCPKRASFR8180-36-23G3 5:13:481.2.840.393916.1.72.3.15|1.2 .840.820018.1.13.104.2.7.2.727879_1 [id number] [facility] 2022-10-28 03:54:12 9951-40-46E83:54:12 Pt pending ICU bed assignment, at bedside is aware of delay in transfer. Pt resting on back at this time, MAP of 71. 58112-7Erkecamea department DrzyGU6156-89-59M92:02:58[facility] NoteTXT1.2.840.775185.1.13.104.2.7. 2.755998|[id number] for patient [address] 2YMLLPKNXHYYMQQLQMRNIXP8953-21-84A9 4:02:581.2.840.005912.1.72.3.15|1.2 .840.512451.1.13.104.2.7.2.727879_1 [id number] [facility] 2022-10-28 03:12:38 8394-39-75J10:12:38 Pt sleeping on right side with cuff on left arm. Provider aware 18510-6Sutow JpmzRZ7089-97-08W89:13:22Nurse NoteTXT1.2.840.090341.1.13.104.2.7. 2.877688|[id number] for patient [id number] 1RQUHCNUTNKFLVTRIYKRBQV4917-50-32N4 3:13:221.2.840.059511.1.72.3.15|1.2 .840.091847.1.13.104.2.7.2.727879_1 [id number] [facility] 2022-10-28 01:19:48 4319-92-36B24:19:48 Pt laying on right side with cuff on LUE 52209-6Rvhui AkfjVQ8671-75-34X68:20:13Nurse NoteTXT1.2.840.429730.1.13.104.2.7. 2.356068|[id number] for patient [id number] 4ATRMOJKTHZWCHAVDLGMRNX5003-93-43P1 1:20:131.2.840.447453.1.72.3.15|1.2 .840.755373.1.13.104.2.7.2.727879_1 [id number] [facility] 2022-10-27 22:26:42 7885-71-06X76:26:42 Pt started ceftin 3 days ago for foul smelling urine. He was also medicated with tylenol at 1900 54755-1Vyctttybn department PzonMN5457-70-94D36:29:09Emergency department NoteTXT1.2.840.262943.1.13.104.2.7. 2.938616|[id number] for patient [address] 2GXHLKECEZGOQYZQFLEHUAM6725-60-32J1 2:29:091.2.840.636227.1.72.3.15|1.2 .840.490311.1.13.104.2.7.2.727879_1 [id number] [facility] 2022-10-27 22:04:22 9842-22-75Y83:04:22 CC: called EMS for pt being febrile [...] moves all ext, WC bound at baseline. 41787-5Rlhweclvl department Triage uyxgHC4302-97-95G49:09:37Emergency department Triage noteTXT1.2.840.115915.1.13.104.2.7. 2.678284|[id number] for patient ygjk392723993Plryjb R Shehadeh RN[id number] 7AWONPBVDILWUVNARHHUEUT7821-42-74C7 2:09:371.2.840.996158.1.72.3.15|1.2 .840.262837.1.13.104.2.7.2.727879_1 [id number] Imani Pelayo RN [facility] 2022-10-27 21:58:00 3981-33-28U96:58:00 [facility] Emergency Department NotePatient Name: Chauncey Simeon of : 1945 77 year old maleTreatment Room: [facility]/XW1Yhcmxxw Record Number: [id number] Care Physician: Dougie GilesPatient Escorted by: Self [9]Mode of Arrival: EMS - [facility] ([place]) [43]EMS Treatment 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: FSBG;IVF Travel and Exposure Screening:SymptomsDoes patient have any of these symptoms?: (not recorded)Exposure ScreeningHas patient had contact with someone with a communicable disease in the last month?: (not recorded)Diseases exposed to:: (not recorded)Is Patient ?: (not recorded)Exposure Date: (not recorded)Chief Complaint:Chief Complaint Patient presents with Fever History of Present Illness:XOU32ef WM with severe dementia presents today with [...] N/A 02/23/2018 Surgeon: Easton Talavera MD; Location: [facility] OR [facility] BASAL CELL CARCINOMA EXCISION N/A 02/23/2018 Surgeon: Easton Talavera MD; Location: [facility] OR [facility] LACERATION REPAIR (SHX) on back PHACOEMULSIFICATION OF CATARACT WITH INTRAOCULAR LENS IMPLANT Right 08/16/2015 Surgeon: Rafael Grant MD; Location: [facility] OR [facility] PHACOEMULSIFICATION OF CATARACT WITH INTRAOCULAR LENS IMPLANT Left 09/13/2015 Surgeon: Rafael Grant MD; Location: [facility] OR [facility] Review of Systems: Review of Systems Unable to perform ROS: Dementia Physical Exam: ED Triage Vitals Weight 10/27/22 2211 70.8 kg (156 lb) Actual or estimated 10/27/222210 Estimated by patient/family report Height 10/27/222210 1.778 m (5' 10") BP 10/27/225 98/54 Pulse 10/27/222210 105 Resp 10/27/222210 22 [...] 0.01 - 0.09 10*3/uL COMP. METABOLIC PANEL (57564) - Abnormal NA 133 (*) 135 - [...] URINALYSIS CBC WITH DIFF COMP. METABOLIC PANEL (76444) Lactic Acid Whole Blood Lactic Acid Whole [...] Follow-up:Electronically signed by: Marcie Nickerson DO10/27/22 2332 56839-6Tqxohtvol Emergency department QfhqMB5754-77-77R25:32:29Physician Emergency department NoteTXT1.2.840.994185.1.13.104.2.7. 2.017492|[id number] for patient careEMCARE EMERGENCY PHYSICIAN STAFFEMCARE EMERGENCY PHYSICIAN STAFF[address] FatdYcejv[id number] 6IUIVCCXIBOAKDRLVZAIUJY6563-05-60I4 3:32:291.2.840.689151.1.72.3.15|1.2 .840.264394.1.13.104.2.7.2.727879_1 [id number] [facility]
--- NOTE | 2023-09-18 19:31 | RAD REPORT ---
EXAM DESCRIPTION: RAD - Chest Single View - 09/18/2023 7:26 pm CLINICAL HISTORY: DYSPNEA Chest pain. COMPARISON: Chest Single View dated 09/11/2023; Chest Single View dated 09/08/2023 FINDINGS: Portable technique limits examination quality. The lungs are grossly clear. The heart is normal in size. Right-sided PICC line has tip in the SVC. IMPRESSION: No acute intrathoracic process suspected.
--- NOTE | 2023-09-18 21:05 | RAD REPORT ---
EXAM DESCRIPTION: US - UPPER EXTREMITY VENOUS UNILATE - 09/18/2023 8:45 pm CLINICAL HISTORY: SWELLING Arm swelling COMPARISON: No comparisons FINDINGS: Right upper extremity venous system was interrogated with Doppler technique. Thrombus is n oted in the right basilic, axillary and subclavian veins. IMPRESSION: Positive for right upper extremity venous thrombosis as detailed.
--- NOTE | 2023-09-18 21:14 | RAD REPORT ---
EXAM DESCRIPTION: CT - Abdomen Pelvis Wo Contrast - 09/18/2023 9:08 pm CLINICAL HISTORY: Abdominal pain. ABD PAIN COMPARISON: No comparisons TECHNIQUE: CT imaging of the abdomen and pelvis was performed without contrast. Solid organ, bowel a nd vascular assessment is limited due to lack of IV and oral contrast. All CT scans are performed using dose optimization technique as appropriate and may include automated exposure control or mA/KV adjustment according to patient size. FINDINGS: The lower lung [place] are clear.Moderate hiatal hernia. The liver, spleen, pancreas, adrenal glands and kidneys are within normal limits for a limited non-co ntrast examination. No bowel obstruction, free air, free fluid or abscess. Large fat containing umbilical hernia. The sd endix is normal. Significant stool retention throughout the colon. Sigmoid diverticulosis coli. The osseous structures are within normal limits. IMPRESSION: Large amount of stool throughout the colon. Sigmoid diverticulosis coli. Large fat containing umbilical hernia. A limited non-contrast examination was performed as detailed.
[2023-09-18 21:46] LABS: Absolute Eosinophils 0.3 K/uL (0-0.5); Absolute Lymphocytes (CBC) 1.4 K/uL (0.7-4.9); Absolute Monocytes 0.6 K/uL (0.1-1.3); Absolute Neutrophil 5.3 K/uL (1.8-8.0); Basophils % 0.5 % (0-1.3); Eosinophils % 3.6 % (0-4.4); Hematocrit 36.7 % (39.6-49.0); Hemoglobin 12.2 g/dL (13.6-17.9); Lymphocytes % 18.2 % (15.3-44.8); MCH 28.7 pg (27.0-35.0); MCHC 33.1 g/dL (32.0-36.0); MCV 86.6 fL (80-100); MPV 6.4 fL (7.6-11.3); Monocytes % 8.3 % (3.3-12.3); Neutrophils % 69.4 % (41.7-73.7); Platelets 276 thou/uL (152-406); RBC Red Blood Cell Count 4.24 M/uL (4.33-5.43); Red Cell Distribution Width 15.1 % (12.1-15.2)
[2023-09-18 21:57] LABS: Anion Gap 8.9 mEq/L (5.0-15.0); Potassium 3.9 mEq/L (3.5-5.1)
[2023-09-18] MEDS ORDERED: ENOXAPARIN 80 MG/0.8 ML SQ ONE (22:07)
[2023-09-18 22:19] LABS: PTT, Activated Partial Thromb 32.9 SECONDS (24.3-36.9); Protime INR 1.09
--- NOTE | 2023-09-18 22:43 | EDPHYS ---
Physician Documentation [facility] Name: Chauncey Dunn Age: 78 yrs Sex: Male : 1945 Arrival Date: 09/18/2023 Time: 18:49 Bed 9 Private MD: ED Physician Bradly Araya HPI: 09/17 21:08 This 78 yrs old Male presents to ER via EMS with complaints of Arm Swelling. kb 22:48 Pt is a 78 year old male with a history of dementia who presents for swelling to [facility]. kb EMS states pt's went to see him at the senior living today and noticed swelling to [facility] so she requested he be brought in for evaluation. also reports pt has had some spasms in his abd so she is concerned about his breathing. . Historical: - Allergies: 18:58 Bactrim; hb - PMHx: 18:58 Alzheimer's disease; Glaucoma; Hypertensive disorder; hb - PSHx: 18:58 back; cataract; hb - Immunization history:: Adult Immunizations up to date. - Infectious Disease History:: Denies. - Social history:: Smoking status: Patient denies any tobacco usage or history of. ROS: 21:08 Constitutional: As per HPI kb Exam: 22:23 Constitutional: This is a well developed, well nourished patient who is awake, alert, kb and in no acute distress. Head/Face: Normocephalic, atraumatic. Vital Signs: 18:55 BP 94 / 59; Pulse 88; Resp 16; Temp 98.1(A); Pulse Ox 100% on R/A; Pain 3/10; hb 19:30 BP 119 / 78; Pulse 91; Resp 18; Pulse Ox 99% ; me1 20:30 BP 133 / 81; Pulse 100; Resp 18; Pulse Ox 100% on R/A; me1 21:30 BP 128 / 79; Pulse 94; Resp 18; Pulse Ox 99% on R/A; me1 22:06 Weight 79.83 kg; me1 22:30 BP 145 / 89; Pulse 92; Resp 16; Pulse Ox 99% on R/A; me1 23:30 BP 128 / 91; Pulse 106; Resp 18; Pulse Ox 99% on R/A; me1 18:55 Pain Scale: Non-Verbal hb MDM: 18:54 Patient medically screened. kb 22:43 Differential diagnosis: dvt, cellulitis. Data reviewed: vital signs, nurses notes. kb Consideration of Admission/Observation Patient was admitted/placed on observation. Escalation of care including admission/observation considered. Management of patient was discussed with the following: Hospitalist: Dr Marroquin accepts pt for admission. Historians other than the Patient: EMS: [facility]. Spouse/Significant Other: . Care significantly affected by the following chronic conditions: Hypertension, dementia. Counseling: I had a detailed discussion with the patient and/or guardian regarding the historical points, exam findings, and any diagnostic results supporting the discharge/admit diagnosis, lab results, radiology results, the need for further work-up and treatment in the hospital. 09/17 21:11 Order name: CBC with Diff; Complete Time: 21:56 kb 09/17 21:11 Order name: Basic Metabolic Panel; Complete Time: 21:59 kb 09/17 21:11 Order name: Protime (+inr); Complete Time: 22:22 kb 09/17 21:11 Order name: Ptt, Activated; Complete Time: 22:22 kb 09/17 23:52 Order name: Urinalysis w/ reflexes EDMS 09/17 23:52 Order name: CBC with Automated Diff EDMS 09/17 23:52 Order name: CBC with Automated Diff EDMS 09/17 23:52 Order name: Comprehensive Metabolic Panel EDMS 09/17 23:52 Order name: Comprehensive Metabolic Panel EDMS 09/17 18:55 Order name: Chest Single View XRAY; Complete Time: 19:33 kb 09/17 19:42 Order name: UPPER EXTREMITY VENOUS UNILATE; Complete Time: 21:07 EDMS 09/17 20:43 Order name: CT Abd/Pelvis - Without Contrast; Complete Time: 21:15 kb 09/17 22:47 Order name: CT Chest For PE Angio kb 09/18 00:06 Order name: Echo with Doppler EDMS 09/17 21:11 Order name: IV Start; Complete Time: 21:32 kb Administered Medications: 22:09 Drug: Enoxaparin Sub-Q 1 mg/kg Sub-Q once Route: Sub-Q; Site: abdomen; me1 23:01 Follow up: Response: No adverse reaction me1 Disposition Summary: 09/18/23 22:42 Hospitalization Ordered Notes: Hospitalization Status: Observation kb Provider: Joe Marroquin Location: Telemetry/MedSurg (observation) kb Condition: Stable kb Problem: new kb Symptoms: are unchanged kb Bed/Room Type: Standard Room Assignment: 230(09/18/23 23:52) rv1 Diagnosis - Acute embolism and thrombosis of deep veins of right upper extremity kb - Pulmonary embolism kb Forms: - Medication Reconciliation Form kb - SBAR form kb - Leadership Thank You Letter kb Signatures: Dispatcher [employer] EDNM Magaly Rudolph FNP-C [place] ADMINISTRATOR-Sandra Nicolas, RN RN Sun Saab rv1 Alyce Cox RN RN me1 Corrections: (The following items were deleted from the chart) 19:42 18:55 Extremity Venous Uni Ltd+US.RAD.BRZ ordered. [facility] EDNM 23:52 22:42 kb rv1
--- NOTE | 2023-09-18 22:43 | ER ---
Nurse's Notes [facility] Name: Chauncey Dunn Age: 78 yrs Sex: Male : 1945 Arrival Date: 09/18/2023 Time: 18:49 Bed 9 Private MD: Diagnosis: Acute embolism and thrombosis of deep veins of right upper extremity;Pulmonary embolism Presentation: 09/17 18:55 Chief complaint: EMS states: reports right arm swelling today, with recent PICC hb placement in same arm. Coronavirus screen: At this time, the client does not indicate any symptoms associated with coronavirus-19. Ebola Screen: No symptoms or risks identified at this time. Initial Sepsis Screen: Does the patient meet any 2 criteria? No. Patient's initial sepsis screen is negative. Does the patient have a suspected source of infection? No. Patient's initial sepsis screen is negative. Risk Assessment: Do you want to hurt yourself or someone else? Patient reports no desire to harm self or others. Onset of symptoms was September 18, 2023. 18:55 Method Of Arrival: EMS: [facility] hb 18:55 Acuity: ANNEMARIE 3 hb Historical: - Allergies: 18:58 Bactrim; hb - PMHx: 18:58 Alzheimer's disease; Glaucoma; Hypertensive disorder; hb - PSHx: 18:58 back; cataract; hb - Immunization history:: Adult Immunizations up to date. - Infectious Disease History:: Denies. - Social history:: Smoking status: Patient denies any tobacco usage or history of. Screenin:58 [facility] ED Fall Risk Assessment (Adult) History of falling in the last 3 months, me1 including since admission No falls in past 3 months (0 pts) Confusion or Disorientation Yes (5 pts) Intoxicated or Sedated No (0 pts) Impaired Gait Yes (1 pt) Mobility Assist Device Used Yes (1 pt) Altered Elimination Yes (1 pt) Score/Fall Risk Level 0 - 2 = Low Risk Maintained a safe environment, Provided non-skid footwear, Hourly rounding (assess needs \T\ fall precautionary measures) done. Abuse screen: Denies threats or abuse. Nutritional screening: No deficits noted. Tuberculosis screening: No symptoms or risk factors identified. Assessment: 19:56 General: Appears comfortable, well developed, well nourished, Behavior is calm, me1 cooperative, appropriate for age, Reports PICC placed to RUE on 09/15/23. Swelling noted in RUE today. Pain: Denies pain. Neuro: Level of Consciousness is awake, alert, obeys commands, Oriented to person, place, time, situation, Appropriate for age. Neuro: Oriented to person. Cardiovascular: Patient's skin is warm and dry. Respiratory: Airway is patent Respiratory effort is even, unlabored, Respiratory pattern is regular, symmetrical. GI: No signs and/or symptoms were reported involving the gastrointestinal system. : No signs and/or symptoms were reported regarding the genitourinary system. EENT: No signs and/or symptoms were reported regarding the EENT system. Derm: Skin is healthy with good turgor, Skin is pale. Musculoskeletal: Swelling present in right arm. 23:07 Derm: Reports reports patient is on retirement antibiotics for wound infections. me1 Wounds to posterior bilateral shoulders and to the medial and lateral aspect of his right ankle. Vital Signs: 18:55 BP 94 / 59; Pulse 88; Resp 16; Temp 98.1(A); Pulse Ox 100% on R/A; Pain 3/10; hb 19:30 BP 119 / 78; Pulse 91; Resp 18; Pulse Ox 99% ; me1 20:30 BP 133 / 81; Pulse 100; Resp 18; Pulse Ox 100% on R/A; me1 21:30 BP 128 / 79; Pulse 94; Resp 18; Pulse Ox 99% on R/A; me1 22:06 Weight 79.83 kg; me1 22:30 BP 145 / 89; Pulse 92; Resp 16; Pulse Ox 99% on R/A; me1 23:30 BP 128 / 91; Pulse 106; Resp 18; Pulse Ox 99% on R/A; me1 18:55 Pain Scale: Non-Verbal hb ED Course: 18:54 Patient arrived in ED. kb 18:54 Magaly Rudolph FNP-C is PHCP. kb 18:54 Bradly Araya MD is Attending Physician. kb 18:56 Triage completed. hb 19:00 Arm band placed on. hb 19:28 Chest Single View XRAY In Process Unspecified. EDMS 19:30 No provider procedures requiring assistance completed. me1 19:53 Alyce Cox, RN is Primary Nurse. me1 19:58 Patient has correct armband on for positive identification. Bed in low position. Call me1 light in reach. Side rails up X2. Provided Education on: POC. verbalized understanding. . Client placed on continuous cardiac and pulse oximetry monitoring. NIBP monitoring applied. Pulse ox on. NIBP on. 20:47 UPPER EXTREMITY VENOUS UNILATE In Process Unspecified. EDMS 21:09 CT Abd/Pelvis - Without Contrast In Process Unspecified. EDMS 21:32 CBC with Diff Sent. as6 21:32 Basic Metabolic Panel Sent. as6 21:32 Ptt, Activated Sent. as6 21:32 Protime (+inr) Sent. as6 21:32 Inserted saline lock: 22 gauge in left forearm, using aseptic technique. Blood as6 collected. 22:41 Joe Marroquin MD is Hospitalizing Provider. kb 23:09 CT Chest For PE Angio In Process Unspecified. EDMS Administered Medications: 22:09 Drug: Enoxaparin Sub-Q 1 mg/kg Sub-Q once Route: Sub-Q; Site: abdomen; me1 23:01 Follow up: Response: No adverse reaction me1 Medication: 19:30 VIS not applicable for this client. me1 Outcome: 22:42 Decision to Hospitalize by Provider. kb 09/18 01:01 Patient left the ED. lg3 Signatures: Dispatcher [employer] EDMagaly Cedillo, ROLLER MILL OPERATOR-C ROLLER MILL OPERATOR-CkSandra Tong, RN RN Marni Ordaz RN RN lg3 Alexandre Echols RN RN as6 Alyce Cox, RN RN me1 Corrections: (The following items were deleted from the chart) 09/17 23:02 23:01 BP 145 / 89; Pulse 92bpm; Resp 16bpm; Pulse Ox 99% RA; me1 me1
[2023-09-18] MEDS ORDERED: ONDANSETRON 4 MG/2 ML VIAL IV PRN (23:47)
--- NOTE | 2023-09-18 23:57 | P.HP ---
Certification for Inpatient Patient admitted to: Inpatient With expected LOS: >2 Midnights Practitioner: I am a practitioner with admitting privileges, knowledge of patient current condition, hospital course, and medical plan of care. Services: Services provided to patient in accordance with Admission requirements found in Title 42 Section 412.3 of the Code of Federal Regulations Patient History Date of Service: 09/18/23 Reason for admission: Right upper extremity swelling History of Present Illness: 78 yo male with past medical history of male with hypertension, paranoid schizophrenia, dementia, Alzheimer disease, glaucoma and cataract who was recently been admitted to the hospital with a right ankle and foot wound and had debridement done and had a PICC line placed on the right arm and was sent to SNF for IV antibiotic therapy and wound care came to ER with swelling of right upper extremity as noticed with . And was brought to ER. Patient could not provide any history hence most of the history is obtained from the chart review and also talked to the at the bedside. Patient had debridement done by Dr. Katz and cultures were monitored by Dr. Warren and was discharged on vancomycin and meropenem IV for possible osteomyelitis. Cultures were positive for Enterococcus faecalis and Pseudomonas aeruginosa Patient was assessed in the ER and was admitted for DVT of right upper extremity along with bilateral PE. Allergies sulfamethoxazole [From Bactrim] Allergy (Verified 09/08/23 19:59) Anaphylaxis trimethoprim [From Bactrim] Allergy (Verified 09/08/23 19:59) Anaphylaxis Home medications list reviewed: Yes Home Medications: Brimonidine Tartrate [Lumify] 1 drop EACH EYE BID 09/08/23 Cholecalciferol (Vitamin D3) [Vitamin D3] 1 tab PO DAILY 09/08/23 Collagenase [Santyl Ointment*] 1 sd TOP DAILY 09/08/23 Docusate Liq [Colace Liquid*] 5 ml PO DAILY PRN 09/08/23 Galantamine HBr [Galantamine ER] 8 mg PO BID 09/08/23 Guaifenesin [Cough Syrup] 10 ml PO Q4H PRN 09/08/23 Jb [Jb*] 1 packet PO DAILY 09/08/23 Lactobacillus Acidophilus 1 cap PO DAILY 09/08/23 Lactulose 10 gm PO DAILY PRN 09/08/23 Latanoprost Ophth [Xalatan 0.005%*] 1 drop EACH EYE BEDTIME 09/08/23 Metoprolol Succinate [Toprol Xl*] 12.5 mg PO DAILY 09/08/23 Multivitamin 1 tab PO DAILY 09/08/23 Omeprazole 20 mg PO DAILY 09/08/23 Polyethyl Gly 3350 [Glycolax*] 1 packet PO DAILY PRN 09/08/23 Risperidone [Risperdal] 2 mg PO BEDTIME 09/08/23 Simvastatin 40 mg PO BEDTIME 09/08/23 Sod Chloride/Juvencio/Mo/Pet,Wh [Lubriderm Daily Moisture Lot] 1 sd TOP BID 09/08/23 Tamsulosin HCl 1 cap PO BEDTIME 09/08/23 Timolol 0.5% Opth [Timoptic 0.5% Opth*] 1 drop EACH EYE BID 09/08/23 Trazodone HCl 25 mg PO BEDTIME 09/08/23 Zinc Oxide [Zinc Oxide 20%*] 1 sd TOP TID 09/08/23 clonazePAM [Clonazepam] 0.75 mg PO BEDTIME 09/08/23 Acetaminophen [Tylenol*] 650 mg PO Q6H PRN tab 09/15/23 Atorvastatin Calcium [Lipitor*] 20 mg PO BEDTIME tab 09/15/23 Diphenhydramine [Benadryl*] 25 mg IV Q6H PRN vial 09/15/23 Ensure Enlive 237 ml PO BID can 09/15/23 Jb [Jb*] 1 pkt PO BID 09/15/23 Medihoney [Medihoney Woundcare Gel*] 1 appl TOP DAILY tube 09/15/23 Meropenem-0.9% Sodium Chloride [Meropenem-0.9% NaCl 1 Gram/50] 1 gm IV BID 30 Days #60 ml 09/15/23 Metoprolol Succinate [Toprol Xl*] 12.5 mg PO DAILY tab 09/15/23 Morphine [Morphine Sulfate*] 2 mg IV Q4H PRN syr 09/15/23 Mupirocin Calcium [Bactroban Nasal*] 1 appl BRENDA BID tube 09/15/23 Pharmacy Consult 1 ea XX DAILYPRN PRN ea 09/15/23 Vancomycin/0.9 % Sod Chloride [Vanco 1.5 gm/250 ml-0.9% NaCl] 1.5 gm IV BID 30 Days #60 gm 09/15/23 - Past Medical/Surgical History Diabetic: No Past Medical History: Reviewed- Non-Contributory -: paranoid schizophrenia -: carotid bruit -: glaucoma -: Alzheimer's dementia Past Surgical History: Reviewed- Non-Contributory -: cataract sx -: back sx - Family History Family History: Reviewed- Non-Contributory - Family History Father -: Cancer Mother -: Other (see notes) Notes: alziehmers - Social History Smoking Status: Never smoker Alcohol use: No Review of Systems is unable to be obtained Physical Examination - Vital Signs Temperature: 98.2 F Blood Pressure: 138/76 Pulse: 72 Respirations: 18 Pulse Ox (%): 94 - Physical Exam General: Alert, Mild distress, Confused HEENT: Atraumatic Neck: Supple, 2+ carotid pulse no bruit Respiratory: Clear to auscultation bilaterally, Normal air movement Cardiovascular: Regular rate/rhythm, Normal S1 S2 Capillary refill: <2 Seconds Gastrointestinal: Soft and benign, W/out hepatosplenomegaly, Distended Musculoskeletal: No clubbing, No swelling Integumentary: No rashes, No breakdown Neurological: Abnormal gait, Abnormal strength, Abnormal tone Lymphatics: No axilla or inguinal lymphadenopathy - Studies Laboratory Data (last 24 hrs) 09/18/23 09/18/23 09/18/23 21:30 21:30 21:30 WBC 7.60 Hgb 12.2 L Hct 36.7 L Plt Count 276 PT 12.0 INR 1.09 APTT 32.9 Sodium 139 Potassium 3.9 BUN 26 H Creatinine 0.52 L Glucose 144 H Assessment and Plan - Problems (Diagnosis) (1) Deep vein thrombosis (DVT) of right upper extremity Current Visit: Yes Status: Acute Plan: DVT right upper extremity Possibly provoked DVT with PICC line Will remove the PICC line Started on Lovenox Monitor closely Bilateral pulmonary embolism No right heart strain as per CT Will get an echocardiogram Continue Lovenox Discussed in detail with the patient's family regarding the nature of the disease and options Osteomyelitis of the right lower extremity Cultures were positive for Enterococcus faecalis and Pseudomonas aeruginosa Patient is on vancomycin and meropenem Continue both Will consult Dr. Katz and Dr. Larry Alzheimer's dementia Hypertension Continue home medications and titrate as needed Supportive management GI/DVT prophylaxis Advanced directive full code Discharge Plan: Longterm Plan to discharge in: Greater than 2 days - Advance Directives Does patient have a Living Will: Yes Does patient have a Durable POA for Healthcare: Yes - Code Status/Comfort Care Code Status: Full Code Time Spent Managing Pts Care (In Minutes): 48
[2023-09-19] MEDS ORDERED: HYDROCODONE/APAP 5/325 MG TAB PO PRN (00:01)
[2023-09-19] MEDS: VANCOMYCIN 1 GM in NA CHLORIDE 0.9% 250 ML IVPB SCH (01:00)
[2023-09-19] MEDS: VANCOMYCIN 1.5 GM in NA CHLORIDE 0.9% 500 ML IVPB ONE (02:00)
[2023-09-19] MEDS: Meropenem 500 MG in NA CHLORIDE 0.9% 100 ML IV SCH (02:02)
[2023-09-19] MEDS: NA CHLORIDE 0.9% 1,000 ML IV SCH (02:03)
[2023-09-19] MEDS: VANCOMYCIN 1 GM/VIAL ONE (02:33)
[2023-09-19] MEDS: NA CHLORIDE 0.9% 500 ML ONE (02:35)
[2023-09-19 04:04] LABS: Absolute Eosinophils 0.2 K/uL (0-0.5); Absolute Lymphocytes (CBC) 1.3 K/uL (0.7-4.9); Absolute Monocytes 0.6 K/uL (0.1-1.3); Absolute Neutrophil 5.5 K/uL (1.8-8.0); Basophils % 0.4 % (0-1.3); Eosinophils % 2.7 % (0-4.4); Hematocrit 34.6 % (39.6-49.0); Hemoglobin 11.7 g/dL (13.6-17.9); MCH 28.7 pg (27.0-35.0); MCHC 33.8 g/dL (32.0-36.0); MCV 84.9 fL (80-100); MPV 6.6 fL (7.6-11.3); Monocytes % 8.3 % (3.3-12.3); Neutrophils % 71.6 % (41.7-73.7); Nucleated Red Blood Cells % 0.1 % (0-0); Platelets 268 thou/uL (152-406); RBC Red Blood Cell Count 4.08 M/uL (4.33-5.43); Red Cell Distribution Width 15.1 % (12.1-15.2)
[2023-09-19 04:20] LABS: Albumin 2.4 g/dL (3.4-5.0); Albumin/Globulin Ratio 0.6 (1.1-1.8); Anion Gap 8.7 mEq/L (5.0-15.0); Bilirubin Total 0.3 mg/dL (0.2-1.0); Globulin 3.7 g/dL (2.3-3.5); Potassium 3.7 mEq/L (3.5-5.1); Protein, Total 6.1 g/dL (6.4-8.2)
[2023-09-19] MEDS ORDERED: ENOXAPARIN 100 MG/ML SYR SQ SCH (09:00)
[2023-09-19] MEDS: DOCUSATE NA 100 MG CAP PO SCH (09:00)
[2023-09-19] MEDS: POTASSIUM 25 MEQ EFFERV TAB PO ONE (09:42)
[2023-09-19] MEDS: LACTULOSE 20 GM/30 ML UCUP PO SCH (09:42)
[2023-09-19] MEDS: ENOXAPARIN 80 MG/0.8 ML SQ SCH (09:43)
--- NOTE | 2023-09-19 12:21 | P.PN ---
Subjective Date of Service: 09/19/23 Chief Complaint: Right upper extremity swelling Patient has no new complaint. No reported fever No reported agitation and no issues overnight. Physical Examination - Vital Signs Temperature: 96.7 F Blood Pressure: 138/69 Pulse: 90 Respirations: 18 Pulse Ox (%): 95 - Studies Laboratory Data (last 24 hrs) 09/18/23 09/18/23 09/18/23 21:30 21:30 21:30 WBC 7.60 Hgb 12.2 L Hct 36.7 L Plt Count 276 PT 12.0 INR 1.09 APTT 32.9 Sodium 139 Potassium 3.9 BUN 26 H Creatinine 0.52 L Glucose 144 H Assessment And Plan - Plan Physical examination General: Awake, dementia, NAD, HEENT: Conjunctiva not pale, anicteric sclera Neck: Supple, no elevated JVD Heart: Heart sounds 1 and 2 normal, regular rhythm, normal rate, no pedal edema Lungs: Clear to auscultation bilaterally, adequate breath sounds bilaterally, no rhonchi or crackles. Abdomen: Soft, nondistended, nontender, normal bowel sounds. Extremities: Mildly swollen right arm, PICC line in the medial aspect of right arm. Skin: Normal skin turgor. Neuro: Patient moves all extremities Psychiatry: no agitation. Assessment and plan DVT right upper extremity Possibly provoked DVT with PICC line Started on Lovenox Monitor closely. General surgery to evaluate PICC line and antibiotics. Bilateral pulmonary embolism No right heart strain as per CT Echocardiogram is pending. Continue Lovenox Osteomyelitis of the right lower extremity Cultures were positive for Enterococcus faecalis and Pseudomonas aeruginosa Patient is on vancomycin and meropenem Continue antibiotics Will consult Dr. Katz and Dr. Larry Alzheimer's dementia Hypertension Oropharyngeal dysphagia Continue home medications. Dysphagia diet-minced and moist, nectar thickened liquids. Supportive management DVT prophylaxis: On Lovenox. Advanced directive:full code
[2023-09-19] MEDS: VANCOMYCIN 1.5 GM in NA CHLORIDE 0.9% 500 ML IVPB SCH (13:56)
[2023-09-19] MEDS ORDERED: HOME MED 1 EA UNK (Lactulose [Lactulose] 10 GM/15 ML Solution) PO PRN (14:04)
[2023-09-19] MEDS: HOME MED 1 EA UNK (Brimonidine Tartrate [Lumify] 2.5 ML Drops) OPTH SCH (14:05)
[2023-09-19] MEDS: HOME MED 1 EA UNK (Galantamine Hbr [Galantamine Er] 8 MG Cap24h.Pel) PO SCH (14:05)
[2023-09-19] MEDS: TIMOLOL MALEATE 0.5% OPTH 5 ML BTL EACH EYE SCH (16:41)
--- NOTE | 2023-09-19 19:37 | RAD REPORT ---
EXAM DESCRIPTION: CT - Chest For Pe Angio - 09/19/2023 7:10 am ADDENDUM #1 Urgent finding reported to Dr. Magaly Rudolph at 09/18/2023 11:37 PM CDT Electronically signed by: Benjie Thompson DO 09/18/2023 11:37 PM CDT RP [id number] End of Addendum EXAM DESCRIPTION: Chest For Pe Angio CLINICAL HISTORY: DYSPNEA COMPARISON: None Available. TECHNIQUE: CTA of the chest obtained following the uncomplicated intravenous administration of iodin ated contrast. 3-D/MIP reformatted images of the chest available for evaluation. This exam was perfor med according to our departmental dose-optimization program, which includes automated exposure contro l, adjustment of the mA and/or kV according to patient size and/or use of iterative reconstruction te chnique. FINDINGS: Chest: Pulmonary arteries: Contrast bolus is adequate.Small segmental filling defect in the left upper lobe. Scattered right lower lobar and segmental filling defect in the right lower lobe. Thyroid: No abnormalities of the visualized thyroid. Great Vessels: Great vessels have normal anatomic configuration. Thoracic Aorta: Atherosclerotic calcification of the thoracic aorta. Heart is not enlarged. Heart: Coronary artery atherosclerosis. Lymph Nodes: No enlarged mediastinal lymph nodes identified. Esophagus: Large hiatal hernia. Other: No additional findings. Lungs: Calcified right upper lobe granuloma. Mild bibasilar discoid atelectasis. Patchy groundglass o pacities peripherally in the middle lobe. Pleura: No pleural effusion or pneumothorax. Trachea/Airways: No abnormalities of the visualized trachea or airways. Bones: Osteopenia. Mild endplate spondylosis and facet arthropathy. Mild multilevel loss of intervert ebral disc height. Upper Abdomen: Limited images of the upper abdomen demonstrate no definite abnormalities of visualize d portions of the liver, gallbladder, pancreas, spleen, adrenal glands, or kidneys. IMPRESSION: 1. Acute pulmonary emboli in the right lower lobar and segmental pulmonary arteries. S mall segmental filling defect in the left upper lobe. Small clot burden. No right heart strain. 2. Patchy groundglass opacities peripherally in the middle lobe. Imaging features can be seen with viral pneumonia, though are nonspecific and can occur with a variety of infectious and noninfectious processes. 3. Large hiatal hernia. 4. Coronary artery atherosclerosis. Electronically signed by: Benjie Thompson DO 09/18/2023 11:32 PM CDT RP [id number] Due to temporary technical issues with the PACS/Fluency reporting system, reports are being signed by the in house radiologists without review as a courtesy to insure prompt reporting. The interpreting radiologist is fully responsible for the content of the report.
[2023-09-19] MEDS ORDERED: HOME MED 1 EA UNK (Simvastatin [Simvastatin] 40 MG Tablet) PO SCH (21:00)
[2023-09-19] MEDS: [UNRECOGNIZED DRUG - MIXTURE] TOP SCH (21:00)
[2023-09-19] MEDS: LATANOPROST 0.005% 2.5ML OPTH OPTH SCH (23:36)
[2023-09-19] MEDS: MEDIHONEY 44 ML TOPICAL TUBE TOP SCH (23:36)
[2023-09-19] MEDS: ZINC OXIDE 20% OINTMENT 60gm TOP SCH (23:36)
[2023-09-19] MEDS: ATORVASTATIN 20 MG TAB PO SCH (23:37)
[2023-09-19] MEDS: TRAZODONE 50 MG TABLET PO SCH (23:38)
[2023-09-19] MEDS: clonazePAM 0.5 MG TAB PO SCH (23:39)
[2023-09-19] MEDS: RISPERIDONE 1 MG TABLET PO SCH (23:39)
[2023-09-19] MEDS: TAMSULOSIN 0.4 MG SR CAP PO SCH (23:40)
[2023-09-19] MEDS: Mupirocin NASAL 2 APPL/1 GM TUBE NAS SCH (23:41)
[2023-09-19] MEDS: JUVEN PACKET PO SCH (23:43)
[2023-09-19] MEDS: guaiFENesin 100 MG/5 ML UCUP PO PRN (23:56)
[2023-09-20 04:06] LABS: Anion Gap 7.2 mEq/L (5.0-15.0); Potassium 4.2 mEq/L (3.5-5.1)
[2023-09-20] MEDS ORDERED: COLLAGENASE 30 GM OINTMENT TOP SCH (09:00)
[2023-09-20] MEDS: HOME MED 1 EA UNK (Cholecalciferol (Vitamin D3) [Vitamin D3] 50 MCG Capsule) PO SCH (09:00)
[2023-09-20] MEDS: MEDIHONEY 44 ML TOPICAL TUBE TOP SCH (09:09)
[2023-09-20] MEDS: MULTIVITAMIN TAB PO SCH (09:27)
[2023-09-20] MEDS: LACTOBACILLUS/ACIDOPHILUS TAB PO SCH (09:27)
[2023-09-20] MEDS: PANTOPRAZOLE 40MG TABLET PO SCH (09:28)
[2023-09-20] MEDS: METOPROLOL XL 25 MG TAB PO SCH (09:28)
--- NOTE | 2023-09-20 11:38 | P.PN ---
Subjective Date of Service: 09/20/23 Chief Complaint: Right upper extremity swelling No issues reported overnight No reported fever No reported agitation. Spouse reports patient slept through the night. Physical Examination - Vital Signs Temperature: 98.4 F Blood Pressure: 133/64 Pulse: 80 Respirations: 15 Pulse Ox (%): 95 Assessment And Plan - Plan Physical examination General: Awake, dementia, NAD, HEENT: Conjunctiva not pale, anicteric sclera Neck: Supple, no elevated JVD Heart: Heart sounds 1 and 2 normal, regular rhythm, normal rate, no pedal edema Lungs: Clear to auscultation bilaterally, adequate breath sounds bilaterally, no rhonchi or crackles. Abdomen: Soft, nondistended, nontender, normal bowel sounds. Extremities: Mildly swollen right arm, PICC line in the medial aspect of right arm. Skin: Normal skin turgor. Multiple ulcers on bilateral ankles. Neuro: Patient moves all extremities Psychiatry: no agitation. Assessment and plan DVT right upper extremity Possibly provoked DVT with PICC line Continue Lovenox and transition to oral Eliquis. Monitor closely. Bilateral pulmonary embolism No right heart strain as per CT Echocardiogram is pending. Continue Lovenox Osteomyelitis of the right lower extremity Cultures were positive for Enterococcus faecalis and Pseudomonas aeruginosa Patient is on vancomycin and meropenem Continue antibiotics. Wound care with acetic acid solution and Medihoney. Dr. Katz and Dr. Larry to follow. Alzheimer's dementia Hypertension Oropharyngeal dysphagia Continue home medications. Dysphagia diet-minced and moist, nectar thickened liquids. Supportive management DVT prophylaxis: On Lovenox. Advanced directive:full code
[2023-09-20] MEDS: VANCOMYCIN 1.5 GM in NA CHLORIDE 0.9% 500 ML IVPB SCH (21:00)
[2023-09-21] MEDS: MORPHINE 4 MG/ML SYR IV PRN (01:15)
[2023-09-21 01:57] VITALS: BMI 23.8
--- NOTE | 2023-09-21 14:37 | ECHO ---
HEIGHT: 6 ft 0 in WEIGHT: 175 lb 12.8 oz DATE OF STUDY: 09/21/[address]: Fantasma Marroquin DO 2-DIMENSIONAL: YES M.MODE: YES DOPPLER: YES COLOR FLOW: YES TDS: YES PORTABLE: YES DEFINITY: NO BUBBLE STUDY: NO DIAGNOSIS: PULMONARY EMBOLISM CARDIAC HISTORY: CATHERIZATION: SURGERY: PROSTHETIC VALVE: PACEMAKER: MEASUREMENTS (cm) DIASTOLIC (NORMALS) SYSTOLIC (NORMALS) IVSd 0.9 (0.6-1.2) LA Diam 3.4 (1.9-4.0) LVEF 59% LVIDd 3.5 (3.5-5.7) LVIDs 2.4 (2.0-3.5) %FS 31% LVPWd 1.0 (0.6-1.2) Ao Diam 3.4 (2.0-3.7) 2 DIMENSIONAL ASSESSMENT: RIGHT ATRIUM: NOT WELL VISUALIZED LEFT ATRIUM: NORMAL RIGHT VENTRICLE: NOT WELL VISUALIZED LEFT VENTRICLE: NORMAL TRICUSPID VALVE: TRACE OF TRICUSPID REGURGITATION MITRAL VALVE: NORMAL PULMONIC VALVE: NOT WELL VISUALIZED AORTIC VALVE: NORMAL PERICARDIAL EFFUSION: NONE AORTIC ROOT: NORMAL LEFT VENTRICULAR WALL MOTION: NORMAL. DOPPLER/COLOR FLOW: NORMAL. COMMENTS: 1. NORMAL LEFT VENTRICULAR SYSTOLIC FUNCTION, EJECTION FRACTION 55-60%, NORMAL WALL MOTION. 2. NORMAL DIASTOLIC FUNCTION. TECHNOLOGIST: ROBY GRANADOS
--- NOTE | 2023-09-21 15:20 | CON ---
Date of Consultation: 09/21/2023 Reason For Consultation: Wounds on his both shoulders and right lower extremity. History Of Present Illness: The patient is a 78-year-old gentleman who was recently discharged with osteomyelitis per Dr. Larry of his right ankle wound and right foot wound and had a PICC line in his right upper extremity for treatment of such. However, he developed right upper extremity swelling, came to the ER. Workup revealed DVT in his right upper extremity as well as pulmonary embolus, there fore he is admitted for anticoagulation and I was consulted to manage his wound. The patient is awak e without any significant change in his mental status. He is confused and unable to provide any revi ew of systems. His is present at the bedside and she provides all of the history as well as the medical records. The patient had cultures done in his last visit, which were positive for Enterococ cus faecalis and Pseudomonas aeruginosa and he was on vancomycin and meropenem for possible osteomyel itis. As far as the wound is concerned, there are no fever or chills. There is no purulent discharg e. No chest pain. Review of Systems: Otherwise unremarkable. Medical History: Significant for paranoid schizophrenia, Alzheimer dementia, glaucoma. Past Surgical History: Cataract surgery, back surgery, wound debridement. Allergies: BACTRIM. Social History: The patient does not smoke or drink. Family History: Cancer unknown type in the father and mother with Alzheimer's. Physical Examination: Vital Signs: Stable. He is afebrile. General: He is awake, confused. Head and neck: No masses. Chest: Clear. Heart: S1, S2. Abdomen: Soft. Extremities: Neurovascularly intact. Neuro: Nonfocal. There is some mild contraction in his upper and lower extremity present, however. Wounds: The patient has a right lateral ankle wound, which has excellent granulation tissue. There are 2 components to it now. There is a bridge in the middle and the top part is approximately 1.5 cm in diameter with fibrin present, but the bottom part is approximately 4 cm in diameter with good gra nulation tissue. There is a right medial ankle wound, which is approximately 1.6 x 3 cm with some fi brin present. No surrounding erythema, warmth, or edema. The left shoulder has a 0.3 x 0.2 cm wound , which is healing well and right shoulder has 2.4 x 2.0 cm wound with moderate amount of fibrin pres ent. No surrounding erythema, warmth, or edema. Laboratory Data: Reviewed. His white count is 7.7. There is no left shift. INR is 1.09. Chemistr y reviewed. Assessment: A 78-year-old gentleman with multiple medical problems with a nonhealing wound, pressure wounds stage III in both shoulders and right ankle, multiple wounds present. Recommendations: Continue IV antibiotics for the time being and wound care as ordered with Josseline. I discussed the case with Dr. Madrid. I think since the patient has already had 12 days of IV antibi otics and there is no radiographic evidence of osteo on plain x-ray and the wound is slightly improvi ng, not gotten worse, consideration should be given to oral antibiotics and we will discuss with Dr. Larry and based on his recommendation, we will proceed accordingly as far as antibiotic therapy is c oncerned. As far as the wound care is concerned, if he is discharged to home, I can [facility] my clinic in a week or two. The plan of care discussed in detail with Dr. Ag sam and the patient's . MALLORY/ESME Voice ID: [id number] Report ID: [id number]
--- NOTE | 2023-09-21 17:47 | P.PN ---
Subjective Date of Service: 09/21/23 Chief Complaint: Right upper extremity swelling Patient is more awake today No reported fever No events overnight, no agitation. Physical Examination - Vital Signs Temperature: 98.0 F Blood Pressure: 113/57 Pulse: 73 Respirations: 16 Pulse Ox (%): 98 Assessment And Plan - Plan Physical examination General: Awake, dementia, NAD, obese Neck: Supple, no elevated JVD Heart: Heart sounds 1 and 2 normal, regular rhythm, normal rate, no pedal edema Lungs: Clear to auscultation bilaterally, adequate breath sounds bilaterally, no rhonchi or crackles. Abdomen: Soft, nondistended, nontender, normal bowel sounds. Extremities: Mildly swollen right arm, PICC line in the medial aspect of right arm. Skin: Normal skin turgor. Multiple ulcers on bilateral ankles. Neuro: Patient moves all extremities Psychiatry: no agitation. Assessment and plan DVT right upper extremity Possibly provoked DVT with PICC line Continue Lovenox and transition to oral Eliquis. Reevaluating need for antibiotics. MRI of the left ankle ordered to rule out osteomyelitis. Plan is to transition to oral antibiotics and remove PICC line if there is no evidence of osteomyelitis. Surgery Dr. Katz input appreciated. Bilateral pulmonary embolism No right heart strain as per CT Small burden PE Lovenox transition to oral Eliquis. Osteomyelitis of the right lower extremity Cultures were positive for Enterococcus faecalis and Pseudomonas aeruginosa. Patient was being treated for suspected osteomyelitis He is on vancomycin and meropenem Continue antibiotics. MRI of the left ankle done to rule out osteomyelitis. Plan is to transition from IV antibiotics to oral antibiotics plus topical asetic acid for Pseudomonas if osteomyelitis is ruled out Patient's spouse prefer Santyl ointment to [facility] Alzheimer's dementia Hypertension Oropharyngeal dysphagia Continue home medications. Dysphagia diet-minced and moist, nectar thickened liquids. Supportive management DVT prophylaxis: On Lovenox. Advanced directive:full code
--- NOTE | 2023-09-21 19:50 | RAD REPORT ---
EXAM DESCRIPTION: MRI - Ankle Right Wo Cont - 09/21/2023 1:01 pm CLINICAL HISTORY: Right ankle ulcer r/o osteomyelitis COMPARISON: No comparisons TECHNIQUE: Multiplanar multisequence MRI of the right ankle, obtained without IV contrast. FINDINGS: Extension at the ankle results and exaggerated patchy along the susceptibility artifacts a t the distal tibia, which somewhat limits evaluation. No discrete marrow signal abnormality to suggest acute fracture or ongoing osteomyelitis. Questionabl e signal abnormalities at the lateral malleolus on the fat-suppressed T2 axial and sagittal images ar e likely artifactual. Increased T2 signal throughout the intrinsic short toe flexors, may relate to disuse/ fatty replaceme nt. Small calcaneal spur. No evidence of plantar aponeurosis tear. Mild scattered degenerative changes most notably at the tibiotalar articulation with mild subchondral edematous changes of the tibia. Mild ankle joint effusion. Soft tissue swelling along the dorsum of the forefoot. The visualized major long flexor and extensor tendons are unremarkable. Limited evaluation of the med ial and lateral ligamentous complexes of the ankle, without a discrete abnormality. IMPRESSION: No MRI findings to suggest ongoing osteomyelitis, allowing for limitations mentioned abo ve. Increased T2 signal along the intrinsic short toe flexors, may relate to disuse atrophy/fatty replace ment. Mild ankle joint effusion. Mild dorsal soft tissue swelling of the forefoot. Other incidental finding s as above.
[2023-09-21] MEDS ORDERED: VANCOMYCIN 1.5 GM in NA CHLORIDE 0.9% 500 ML IVPB SCH (21:00)
[2023-09-21] MEDS: APIXABAN 5 MG TABLET PO SCH (21:20)
[2023-09-21] MEDS: POLYETHYL GLY 3350 17 GM/DOSE PO PRN (21:32)
[2023-09-22 05:59] LABS: Absolute Eosinophils 0.3 K/uL (0-0.5); Absolute Lymphocytes (CBC) 1.1 K/uL (0.7-4.9); Absolute Monocytes 0.5 K/uL (0.1-1.3); Absolute Neutrophil 3.7 K/uL (1.8-8.0); Basophils % 0.4 % (0-1.3); Eosinophils % 4.8 % (0-4.4); Hematocrit 36.3 % (39.6-49.0); Hemoglobin 12.4 g/dL (13.6-17.9); Lymphocytes % 19.5 % (15.3-44.8); MCH 29.4 pg (27.0-35.0); MCHC 34.2 g/dL (32.0-36.0); MCV 86.1 fL (80-100); MPV 6.3 fL (7.6-11.3); Monocytes % 8.7 % (3.3-12.3); Neutrophils % 66.6 % (41.7-73.7); Nucleated Red Blood Cells % 0.1 % (0-0); Platelets 306 thou/uL (152-406); RBC Red Blood Cell Count 4.22 M/uL (4.33-5.43); Red Cell Distribution Width 14.7 % (12.1-15.2)
[2023-09-22 06:11] LABS: Anion Gap 7.9 mEq/L (5.0-15.0); Magnesium 2.1 mg/dL (1.6-2.4); Potassium 3.9 mEq/L (3.5-5.1)
[2023-09-22] MEDS: KCL 20 MEQ/100 mL IVPB 20 MEQ/100 ML BAG IV ONE (09:34)
[2023-09-22] MEDS ORDERED: SODIUM CHLORIDE 0.9% 10ML INJ IV PRN (09:54)
[2023-09-22] MEDS: NA CHLORIDE 0.9% 1,000 ML ONE (10:23)
[2023-09-22] MEDS: PANTOPRAZOLE 40 MG INJ IVP SCH (10:33)
[2023-09-22 11:31] VITALS: O2SAT 95
--- NOTE | 2023-09-22 12:16 | P.PN ---
Date of Service: 09/22/23 Subjective: at bedside, states RUE much less swollen no new/worsening symptoms ROS: 10 point ROS as noted above, otherwise negative Physical Exam: GEN: Awake, dementia, NAD HEENT: Normal conjunctiva, sclera anicteric, CV: Regular rate and rhythm, no edema Pulm: Nonlabored respirations on room air, clear bilaterally ABD: soft, nontender, nondistended MSK: mildly swollen right arm. PICC in place to RUE Integumentary: Bilateral ankle ulcers, open wounds to bilateral shoulder Neuro: Normal speech, normal affect Problem List: DVT right upper extremity, provoked by PICC Bilateral pulmonary embolism Osteomyelitis of the right lower extremity Alzheimer's dementia Hypertension Oropharyngeal dysphagia DVT right upper extremity, provoked by PICC venous u/s (09/17): Positive for DVT in RUE continue eliquis; transitioned from lovenox (09/20) MRI ankle (09/20): no findings to suggest ongoing osteomyelitis allowing for limitations. Increased T2 signal along the intrinsic short toe flexors, may relate to d isuse atrophy/fatty replacement Mild ankle joint effusion. Mild dorsal soft tissue swelling of the forefoot will confirm with ID - if can transition to oral antibiotics and remove PICC line if there is no evidence of osteomyelitis. Bilateral pulmonary embolism CTA chest (09/17): acute PE in right lower lobar and segmental pulmonary arteries. Small segmental filling deficit in left upper lobe. Small clot burden. No right heart strain Lovenox transitioned to oral Eliquis (09/20) Osteomyelitis of the right lower extremity Recently admitted here from 09/07-09/14. Underwent extensive I&D (09/08) of multiple wounds (right lateral ankle, right medial ankle, left shoulder, right shoulder) Wound cultures from last hospitalization (09/08): Enterococcus faecalis and Pseudomonas aeruginosa. Difficulty obtaining imaging last hospitalization to confirm osteomyelitis d/t non-cooperative. Was being treated for presumed osteomyelitis with vancomycin and meropenem for 6 weeks total per ID MRI ankle (09/20): no findings to suggest ongoing osteomyelitis allowing for limitations. Increased T2 signal along the intrinsic short toe flexors, may relate to disuse atrophy/fatty replacement Mild ankle joint effusion. Mild dorsal soft tissue swelling of the forefoot Plan is to transition from IV antibiotics to oral antibiotics plus topical acetic acid for Pseudomonas if osteomyelitis is ruled out Patient's spouse prefer Santyl ointment to [facility] surgery, Dr. Katz is following Alzheimer's dementia Hypertension Oropharyngeal dysphagia Continue home medications. Dysphagia diet-minced and moist, nectar thickened liquids. Supportive management VTE: Eliquis started 09/20 Code: Full Dispo: SNF - Back to [facility] vs home states if no IV antibiotics are needed, would prefer to return home on discharge, has help at home
[2023-09-22] MEDS: Meropenem 1,000 MG in NA CHLORIDE 0.9% 100 ML IV SCH (16:44)
[2023-09-23 07:52] LABS: Anion Gap 6.3 mEq/L (5.0-15.0); Potassium 4.3 mEq/L (3.5-5.1)
--- NOTE | 2023-09-23 09:24 | P.PN ---
Date of Service: 09/23/23 Subjective: no new/worsening symptoms at bedside updated appetite slowly improving afebrile ROS: 10 point ROS as noted above, otherwise negative Physical Exam: GEN: Awake, dementia, NAD HEENT: Normal conjunctiva, sclera anicteric, CV: Regular rate and rhythm, no edema Pulm: Nonlabored respirations on room air, clear bilaterally ABD: soft, nontender, nondistended MSK: mildly swollen right arm. PICC in place to RUE Integumentary: Bilateral ankle ulcers, open wounds to bilateral shoulder Neuro: Normal speech, normal affect Problem List: DVT right upper extremity, provoked by PICC Bilateral pulmonary embolism Osteomyelitis of the right lower extremity Alzheimer's dementia Hypertension Oropharyngeal dysphagia DVT right upper extremity, provoked by PICC venous u/s (09/17): Positive for DVT in RUE continue eliquis; transitioned from lovenox (09/20) MRI ankle (09/20): no findings to suggest ongoing osteomyelitis allowing for limitations. Increased T2 signal along the intrinsic short toe flexors, may relate to disuse atrophy/fatty replacement Mild ankle joint effusion. Mild dorsal soft tissue swelling of the forefoot will confirm with ID - if can transition to oral antibiotics and remove PICC line if there is no evidence of osteomyelitis. dc picc Bilateral pulmonary embolism CTA chest (09/17): acute PE in right lower lobar and segmental pulmonary arteries. Small segmental filling deficit in left upper lobe. Small clot burden. No right heart strain Lovenox transitioned to oral Eliquis (09/20) Osteomyelitis of the right lower extremity Recently admitted here from 09/07-09/14. Underwent extensive I&D (09/08) of multiple wounds (right lateral ankle, right medial ankle, left shoulder, right shoulder) Wound cultures from last hospitalization (09/08): Enterococcus faecalis and Pseudomonas aeruginosa. Difficulty obtaining imaging last hospitalization to confirm osteomyelitis d/t non-cooperative. Was being treated for presumed osteomyelitis with vancomycin and meropenem for 6 weeks total per ID MRI ankle (09/20): no findings to suggest ongoing osteomyelitis allowing for limitations. Increased T2 signal along the intrinsic short toe flexors, may relate to disuse atrophy/fatty replacement Mild ankle joint effusion. Mild dorsal soft tissue swelling of the forefoot Plan is to transition from IV antibiotics to oral antibiotics plus topical acetic acid for Pseudomonas if osteomyelitis is ruled out Patient's spouse prefer Santyl ointment to [facility] surgery, Dr. Katz is following dc picc Alzheimer's dementia Hypertension Oropharyngeal dysphagia Continue home medications. Dysphagia diet-minced and moist, nectar thickened liquids. Supportive management VTE: Eliquis started 09/20 Code: Full Dispo: SNF - Back to [facility] vs home states if no IV antibiotics are needed, would prefer to return home on discharge, has help at home
[2023-09-23] MEDS: NA CHLORIDE 0.9% 1,000 ML IV SCH ×2 (10:00→13:18)
[2023-09-23] MEDS: AMOXICILLIN TRIHYDR 250 MG CAP PO SCH (19:56)
[2023-09-23] MEDS: ACETAMINOPHEN 325 MG TABLET PO PRN (20:02)
--- NOTE | 2023-09-23 20:56 | CON ---
History Of Present Illness: Patient was recently discharged to half-way to complete 6 week cours e of antibiotic for osteomyelitis especially involving the right ankle region and possible right shou lder from chronic pressure ulcers. Patient developed shortness of breath and swelling to the right a rm where the PICC line was placed and vascular echo showed the patient has blood clot formation invol ving the right brachial and subclavian plexus with the blood clots and pulmonary embolism CTA done on 09/17. MRI done on 09/20 shows no significant finding of osteomyelitis to the ankle vito on. Past Medical History: Osteomyelitis of the right lower extremity, Alzheimer dementia, hypertension, oropharyngeal dysphagia, pressure wounds. Social History: Nonsmoker, nondrinker. Lives with his . Family History: Noncontributory. Medications: Vancomycin and meropenem. See MARs for other medications. Allergies: SULFAMETHOXAZOLE. Review of Systems: Unable to obtain as patient is nonverbal. Physical Examination: General: This is a 78-year-old male, lying in bed. by the bedside, not in any acute cardiopulm onary distress. Vital Signs: Temperature 98, pulse 82, respirations 16, blood pressure 119/63, 95% sats on room air. HEENT: Unremarkable. Neck: Supple. Lungs: Basal crackles. Heart: S1, S2. Regular. Abdomen: Soft, nontender. Bowel sounds present. Extremity: Wounds noted to the right shoulder and right ankle region and foot. Laboratory Data: Shows WBC 5.6, hemoglobin 12.4, platelets 306, BUN of 28, creatinine of 0.5, albumi n level of 2.4. Assessment And Plan: 78-year-old male with significant history of osteomyelitis, oropharyngeal dysph agia, hypertension, Alzheimer dementia, coming in with right upper extremity DVT, most likely seconda ry to PICC line placement for IV antibiotics and bilateral pulmonary embolism. Patient currently rec eiving treatment for DVT. We will recommend to treat patient's wounds locally with acetic acid as pe r surgical team requests and start Amoxil to cover enterococcus total of 2 weeks. Follow up with the surgical team for wound care and monitor for signs of infection with WBC and fever trends. Thank you, Dr. Salazar, for consult. NF/MODL Voice ID: [id number] Report ID: [id number]
[2023-09-24 03:29] LABS: Anion Gap 8.3 mEq/L (5.0-15.0); Magnesium 1.8 mg/dL (1.6-2.4); Potassium 4.3 mEq/L (3.5-5.1)
--- NOTE | 2023-09-24 07:02 | P.PN ---
Date of Service: 09/24/23 Subjective: ROS: 10 point ROS as noted above, otherwise negative Physical Exam: GEN: Awake, dementia, NAD HEENT: Normal conjunctiva, sclera anicteric, CV: Regular rate and rhythm, no edema Pulm: Nonlabored respirations on room air, clear bilaterally ABD: soft, nontender, nondistended MSK: minimally swollen right arm Integumentary: Bilateral ankle ulcers, open wounds to bilateral shoulder Neuro: Normal speech, normal affect Problem List: DVT right upper extremity, provoked by PICC Bilateral pulmonary embolism Osteomyelitis of the right lower extremity Alzheimer's dementia Hypertension Oropharyngeal dysphagia DVT right upper extremity, provoked by PICC venous u/s (09/17): Positive for DVT in RUE continue eliquis; transitioned from lovenox (09/20) MRI ankle (09/20): no findings to suggest ongoing osteomyelitis allowing for limitations. Increased T2 signal along the intrinsic short toe flexors, may relate to disuse atrophy/fatty replacement Mild ankle joint effusion. Mild dorsal soft tissue swelling of the forefoot PICC dc'd 09/22 - IV antibiotics transitioned to PO Bilateral pulmonary embolism CTA chest (09/17): acute PE in right lower lobar and segmental pulmonary juan pablo hal. Small segmental filling deficit in left upper lobe. Small clot burden. No right heart strain Lovenox transitioned to oral Eliquis (09/20) Osteomyelitis of the right lower extremity Recently admitted here from 09/07-09/14. Underwent extensive I&D (09/08) of multiple wounds (right lateral ankle, right medial ankle, left shoulder, right shoulder) Wound cultures from last hospitalization (09/08): Enterococcus faecalis and Pseudomonas aeruginosa. Difficulty obtaining imaging last hospitalization to confirm osteomyelitis d/t non-cooperative. Was being treated for presumed osteomyelitis with vancomycin and meropenem for 6 weeks total per ID General surgery, Dr. Katz is following MRI ankle (09/20): no findings to suggest ongoing osteomyelitis allowing for limitations. Increased T2 signal along the intrinsic short toe flexors, may relate to disuse atrophy/fatty replacement Mild ankle joint effusion. Mild dorsal soft tissue swelling of the forefoot Confirmed with ID, okay to dc PICC and transition to oral antibiotics IV merrem deescalated to PO Amoxicillin TID (09/22-10/07) continue local wound care PICC line dc'd 09/22 Alzheimer's dementia Hypertension Oropharyngeal dysphagia Continue home medications. Dysphagia diet-minced and moist, nectar thickened liquids. Supportive management VTE: Eliquis started 09/20 Code: Full Dispo: Home
--- NOTE | 2023-09-24 08:43 | P.DS ---
Admission Date: 09/18/23 Discharge Date: 09/24/23 Disposition: DC HOME/HOME HEALTH CARE Discharge Condition: GOOD Reason for Admission: Right upper extremity swelling Consultations: General surgery - Dr. Katz ID - Dr. Larry Brief History of Present Illness: 78yo M, PMH: hypertension, paranoid schizophrenia, dementia, Alzheimer disease, glaucoma and cataract who was recently been admitted to the hospital with a right ankle and foot wound and had debridement done and had a PICC line placed on the right arm and was sent to SNF for IV antibiotic therapy and wound care Patient came to ER with swelling of right upper extremity as noticed with . And was brought to ER. Patient could not provide any history hence most of the history is obtained from the chart review and also talked to the at the bedside. Patient had debridement done by Dr. Katz and cultures were monitored by Dr. Larry and was discharged on vancomycin and meropenem IV for possible osteomyelitis. Cultures were positive for Enterococcus faecalis and Pseudomonas aeruginosa. Hospital Course: Problem List: DVT right upper extremity, provoked by PICC Bilateral pulmonary embolism Osteomyelitis of the right lower extremity Alzheimer's dementia Hypertension Oropharyngeal dysphagia Physician discharge instructions: Patient presented from SNF with worsening right arm swelling pain near PICC line IV site and was found to have an acute provoked DVT of RUE secondary to PICC line complicated by bilateral pulmonary embolism (small clot burden, no right heart strain). MRI of right ankle done this hospitalization without evidence to suggest osteomyelitis. Discussed with general surgery / ID, given negative MRI, PICC line was discontinued 09/22 and IV antibiotics were deescalated to oral amoxicillin Patient is to complete 2 week total course of amoxicilin (end date 10/08/23) in in addition to daliy topical acetic acid to cover pseudomonas. Patient was initially started on lovenox and eventually transitioned to eliquis 09/20. Patient is to continue eliquis for a few months until instructed otherwise by a physician at follow up appointment. Patient was feeling better right arm swelling / pain improved, afebrile without leukocytosis, and was deemed stable for discharge home to resume home health. Follow up with PCP, will need Eliquis for at least 3 months for provoked DVT/PE Medications: Amoxicilin 500 mg three times daily (End date: 10/08/23) Eliquis 10 mg twice daily for 4 more days, then decrease to 5 mg twice daily Acetic acid solution Okay to crush eliquis pill Follow up: PCP 3-[address] Katz at [facility] healing center next week Please call to schedule / confirm appointments Wound care: Wet-to-dry dressing Irrigate all wounds with 0.25% acetic acid solution, apply santyl ointment daily. Physical Exam: GEN: Awake, dementia, NAD HEENT: Normal conjunctiva, sclera anicteric, CV: Regular rate and rhythm, no edema Pulm: Nonlabored respirations on room air, clear bilaterally ABD: soft, nontender, nondistended MSK: minimally swollen right arm Integumentary: Bilateral ankle ulcers, open wounds to bilateral shoulder Neuro: Normal speech, normal affect Vital Signs/Physical Exam: Temp Pulse Resp BP Pulse Ox 98.0 F 78 20 113/57 L 93 09/24/23 04:00 09/24/23 04:00 09/24/23 04:00 09/24/23 04:00 09/24/23 04:00 Laboratory Data at Discharge: WBC 5.60 thou/uL (4.3-10.9) 09/22/23 05:31 Hgb 12.4 g/dL (13.6-17.9) L 09/22/23 05:31 Hct 36.3 % (39.6-49.0) L 09/22/23 05:31 Plt Count 306 thou/uL (152-406) 09/22/23 05:31 PT 12.0 SECONDS (9.5-12.5) 09/18/23 21:30 INR 1.09 09/18/23 21:30 APTT 32.9 SECONDS (24.3-36.9) 09/18/23 21:30 Sodium 138 mEq/L (136-145) 09/24/23 02:42 Potassium 4.3 mEq/L (3.5-5.1) 09/24/23 02:42 BUN 26 mg/dL (7-18) H 09/24/23 02:42 Creatinine 0.53 mg/dL (0.70-1.30) L 09/24/23 02:42 Glucose 109 mg/dL (74-106) H 09/24/23 02:42 Magnesium 1.8 mg/dL (1.6-2.4) 09/24/23 02:42 Total Bilirubin 0.3 mg/dL (0.2-1.0) 09/19/23 03:33 AST 14 U/L (15-37) L 09/19/23 03:33 ALT 19 U/L (16-61) 09/19/23 03:33 Alkaline Phosphatase 81 U/L (45-117) 09/19/23 03:33 Home Medications: Brimonidine Tartrate [Lumify] 1 drop EACH EYE BID 09/08/23 Cholecalciferol (Vitamin D3) [Vitamin D3] 1 tab PO DAILY 09/08/23 Collagenase [Santyl Ointment*] 1 sd TOP DAILY 09/08/23 Docusate Liq [Colace Liquid*] 5 ml PO DAILY PRN 09/08/23 Galantamine HBr [Galantamine ER] 8 mg PO BID 09/08/23 Guaifenesin [Cough Syrup] 10 ml PO Q4H PRN 09/08/23 Lactobacillus Acidophilus 1 cap PO DAILY 09/08/23 Lactulose 10 gm PO DAILY PRN 09/08/23 Latanoprost Ophth [Xalatan 0.005%*] 1 drop EACH EYE BEDTIME 09/08/23 Multivitamin 1 tab PO DAILY 09/08/23 Omeprazole 20 mg PO DAILY 09/08/23 Polyethyl Gly 3350 [Glycolax*] 1 packet PO DAILY PRN 09/08/23 Risperidone [Risperdal] 2 mg PO BEDTIME 09/08/23 Simvastatin 40 mg PO BEDTIME 09/08/23 Sod Chloride/Juvencio/Mo/Pet,Wh [Lubriderm Daily Moisture Lot] 1 sd TOP BID 09/08/23 Tamsulosin HCl 1 cap PO BEDTIME 09/08/23 Timolol 0.5% Opth [Timoptic 0.5% Opth*] 1 drop EACH EYE BID 09/08/23 Trazodone HCl 25 mg PO BEDTIME 09/08/23 Zinc Oxide [Zinc Oxide 20%*] 1 sd TOP TID 09/08/23 clonazePAM [Clonazepam] 0.75 mg PO BEDTIME 09/08/23 Acetaminophen [Tylenol*] 650 mg PO Q6H PRN tab 09/15/23 Atorvastatin Calcium [Lipitor*] 20 mg PO BEDTIME tab 09/15/23 Diphenhydramine [Benadryl*] 25 mg IV Q6H PRN vial 09/15/23 Jb [Jb*] 1 pkt PO BID 09/15/23 Metoprolol Succinate [Toprol Xl*] 12.5 mg PO DAILY tab 09/15/23 Mupirocin Calcium [Bactroban Nasal*] 1 appl BRENDA BID tube 09/15/23 Pharmacy Consult 1 ea XX DAILYPRN PRN ea 09/15/23 Acetic Acid 0.25% [Acetic Acid 0.25%*] See Rx Instructions .ROUTE .COMPLEX #2 btl 09/24/23 Amoxicillin 10 ml PO TID 14 Days #420 ml 09/24/23 Apixaban [Eliquis] See Rx Instructions .ROUTE .COMPLEX 30 Days #1 packet 09/24/23 New Medications: Acetic Acid 0.25% [Acetic Acid 0.25%*] See Rx Instructions .ROUTE .COMPLEX #2 btl Amoxicillin 10 ml PO TID 14 Days #420 ml Apixaban [Eliquis] See Rx Instructions .ROUTE .COMPLEX 30 Days #1 packet Physician Discharge Instructions: Physician discharge instructions: Patient presented from SNF with worsening right arm swelling pain near PICC line IV site and was found to have an acute provoked DVT of RUE secondary to PICC line complicated by bilateral pulmonary embolism (small clot burden, no right heart strain). MRI of right ankle done this hospitalization without evidence to suggest osteomyelitis. Discussed with general surgery / ID, given negative MRI, PICC line was discontinued 09/22 and IV antibiotics were deescalated to oral amoxicillin Patient is to complete 2 week total course of amoxicilin (end date 10/08/23) in in addition to daliy topical acetic acid to cover pseudomonas. Patient was initially started on lovenox and eventually transitioned to eliquis 09/20. Patient is to continue eliquis for a few months until instructed otherwise by a physician at follow up appointment. Patient was feeling better right arm swelling / pain improved, afebrile without leukocytosis, and was deemed stable for discharge home to resume home health. Follow up with PCP, will need Eliquis for at least 3 months for provoked DVT/PE Medications: Amoxicilin 500 mg three times daily (End date: 10/08/23) Eliquis 10 mg twice daily for 4 more days, then decrease to 5 mg twice daily Acetic acid solution Okay to crush eliquis pill Follow up: PCP 3-[address] Katz at wound healing center next week Please call to schedule / confirm appointments Wound care: Wet-to-dry dressing Irrigate all wounds with 0.25% acetic acid solution, apply santyl ointment daily. Followup: Lizbet Turner MD [Primary Care Provider] - Time spent managing pt's care (in minutes): 45
[2023-09-24 12:47] VITALS: BP 103/62; TEMP 96.8
== END 2023-09-24 12:45 | disposition home health service (06) | DRG 175 ==
LOC: ER 18:49 → 2ND 23:47
PROVIDERS: ADMIT Family Medicine; ATTEND Hospitalist
DX: I26.99 Other pulmonary embolism without acute cor pulmonale (principal); L89.513 Pressure ulcer of right ankle, stage 3; L89.893 Pressure ulcer of other site, stage 3; I82.621 Acute embolism and thrombosis of deep veins of right upper extremity; M86.671 Other chronic osteomyelitis, right ankle and foot; F02.80 Dementia in other diseases classified elsewhere, unspecified severity, without behavioral disturbance, psychotic disturbance, mood disturbance, and anxiety; G30.9 Alzheimer's disease, unspecified; I10 Essential (primary) hypertension; R13.12 Dysphagia, oropharyngeal phase; H40.9 Unspecified glaucoma
CPT/HCPCS: 36415; 71045; 71275; 74176; 80048; 80053; 80202; 82947; 83735; 85025; 85610; 85730; 92526; 92610; 93306; 93971; 94760; 96372; 99284; C9113; J2185; J3480; J7030; J7040; Q9967

== ENCOUNTER 2023-11-02 20:20 | Inpatient (IN) | payer OTHER, BC ==
--- OUTSIDE RECORDS SUMMARY | 2023-11-02 20:30 | XMS REPORT | Continuity of Care Document ---
Author Name Unknown Address [address] [facility] [place] [address] [facility] thconnect Address [address] [facility] [place] [address] Care Team Providers Care Machine Stonecutter Name Role Phone DOUGIE GILES Primary Care Physician Unavailab NATALIE Hector Attending Clinician Unavaila Joseph Joe Attending Clinician Unavailable Joseph Smith Attending Clinician [phone] NICANOR LENTZ Attending Clinician Unavailable Nicanor Lentz DO Attending Clinician [phone] [place] MENDOZA, Shira Lynn Attending Clinician Unavail able MARQUES HINES Attending Clinician Unavailable Andreina Albert Attending Clinician [phone] Marlena Rios MD Attending Clinician [phone] Marques Hines DO Attending Clinician [phone] Virginia Soni DO Attending Clinician [phone] [place] SONI Attending Clinician Unavailab Ena Montenegro RN Attending Clinician Unavailab Juno Hand MD Attending Clinician [phone] OLMAN DAVID Attending Clinician Unavailable Olman Charles Attending Clinician [phone] Doctor Unassigned, Calpella Attending Clinician LYDIA Krishnamurthy Attending Clinician Unavailab Marcie Lazar DO Attending Clinician [phone] Ebony LOPEZ, Margie Bowens Attending Clinician + [phone] Chaz Roberts MD Attending Clinician + Natalie Stone Attending Clinician [phone] Fantasma Marroquin MD Attending Clinician [phone] Jean Jarrett MD Attending Clinician [phone] Dougie Giles MD Attending Clinician [phone] DOUGIE GILES Attending Clinician Unavailable MARLENA RIOS Attending Clinician Unavailable Yaritza Aguirre Anavella Attending Cli nician Unavailable JOSEFINA DASILVA Attending Clinician Unavailable Brown LOPEZ, Josefina Attending Clinician [phone] Nurse, [facility] Gu Attending Clinician Jelani Bray MD Attending Clinician [phone] JEAN JARRETT Attending Clinician Unavailable Liane Negrete RN Attending Clinician Unavailable Only, Ang Db Test Attending Clinician Unavailabl Mannie Vuong DO Attending Clinician [phone] MANNIE WILSON Attending Clinician Unavail able MARGI BOYD Attending Clinician Unavailable Margi Horn Attending Clinician [phone] Justine Collins Attending Clinician + [phone] JUSTINE GARCIA Attending Clinician Unavailable Lab, [facility] Attending Clinician Unavailab JELANI Álvarez Attending Clinician Unavail able JELANI CORDON Attending Clinician Unavail able JEZ ALEXANDER Attending Clinician Unavailable Compa Attending Clinician Unavailable Joseph MELENDEZ Admitting Clinician Unavailable MARQUES HINES Admitting Clinician Unavailable Marques Hines DO Admitting Clinician [phone] [place] SONI Admitting Clinician Unavailab OLMAN Anglin Admitting Clinician Unavailable CHAZ ROBERTS Admitting Clinician Unavailable Chaz Roberts MD Admitting Clinician + NICANOR LENTZ Admitting Clinician Unavailable MARLENA RIOS Admitting Clinician Unavailable Marlena Rios MD Admitting Clinician [phone] Tomasa Aguirre Anav Admitting Clinician U JOSEFINA Cam Admitting Clinician Unavailable Josefina Dasilva MD Admitting Clinician JELANI CORDON Admitting Clinician Unavail able Rajjoel_P Admitting Clinician Unavailable Payers Payer Name Policy Type Policy Number Effective Date Expirati on Date Source MEDICARE PART A \\T\\ B [id number] 2002 00:00:00 BCBS TRADITIONAL [id number] 2013 00:00:00 [facility] CCN [id number] 2021 00:00:00 MCR MCR [id number] BCTI BCTI [id number] [place] [employer] [id number] 2002 00:00:00 [place] [id number] 2013 00:00:00 Problems Condition Name Condition Details Condition Category Status Onset Date Resolution Date Last Treatment Date Treating Clinician Comments Source Fever, unspecifie d fever cause Fever, unspecifie d fever cause Disease Active 2022-04 00:00: 00 [facility] Wound of right ankle, initial encounter Wound of right ankle, initial encounter Disease Active 2022-04 00:00: 00 [facility] Cellulitis , unspecifie d cellulitis site Cellulitis , unspecifie d cellulitis site Disease Active 11-29 00:00: 00 [facility] Unspecifie d dementia, unspecifie d severity, without behavioral disturbanc e, psychotic disturbanc e, mood disturbanc e, and anxiety Unspecifie d dementia, unspecifie d severity, without behavioral disturbanc e, psychotic disturbanc e, mood disturbanc e, and anxiety Disease Active 11-26 00:00: 00 [facility] 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 11-26 00:00: 00 [facility] Problem related to unspecifie d psychosoci al circumstan vasu Problem related to unspecifie d psychosoci al circumstan vasu Disease Active 11-26 00:00: 00 [facility] Post-traum atic stress disorder, chronic Post-traum atic stress disorder, chronic Disease Active 11-26 00:00: 00 [facility] Fever in adult Fever in adult Disease Active 10-28 00:00: 00 [facility] Pneumonia due to infectious organism Pneumonia due to infectious organism Disease Active 725 00:00: 00 [facility] At risk for aspiration At risk for aspiration Disease Active 20 00:00: 00 [facility] Cellulitis of right ankle Cellulitis of right ankle Disease Active 416 00:00: 00 [facility] Fecal impaction in rectum Fecal impaction in rectum Disease Active 2 00:00: 00 [facility] Pancolitis Pancolitis Disease Active 1 00:00: 00 [facility] Basal cell carcinoma (BCC) of chin Basal cell carcinoma (BCC) of chin Disease Active 2017-04 00:00: 00 Overview: Formattin g of this note might be different from the original. Added automatic ally from request for surgery [id number] [facility] Glaucoma Glaucoma Disease Active 2014-04 00:00: 00 [facility] Hyperlipid emia Hyperlipid emia Disease Active 2014-04 00:00: 00 [facility] Carotid bruit Carotid bruit Disease Active 2014-04 00:00: 00 [facility] Allergies, Adverse Reactions, Alerts Allergy Name Allergy Type Status Severity Reaction(s) Onset Date Inactive Date Treating Clinician Comments Source Sulfamet hoxazole -Trimeth oprim Propensi ty to adverse reaction s Active Unknown - See comments 11-07 00:00: 00 Patients reports the patient is unable to walk when taking medicatio n [facility] SULFAMET HOXAZOLE -TRIMETH OPRIM DRUG Active Unknown-Cmnt 2022-0 8-04 00:00: 00 [facility] Social History Social Habit Start Date Stop Date Quantity Comments Source History SDOH Social Connections Get Together [facility] History SDOH Social Connections Synagogue [facility] History SDOH Social Connections Membership [facility] History SDOH Social Connections Meetings [facility] Alcohol intake 2023 00:00:00 2023 00:00:00 0 /d [facility] Exposure to SARS-CoV-2 (event) 2022-08-17 00:00:00 2022-08-27 14:30:00 Not sure [facility] History of Social function 2022-08-27 00:00:00 2022-08-27 00:00:00 [facility] History SDOH Alcohol Frequency 2022-07-21 00:00:00 2022-07-21 00:00:00 1 [facility] History SDOH Social Connections Phone 2022-07-21 00:00:00 2022-07-21 00:00:00 3 [facility] History SDOH Social Connections Living 2022-07-21 00:00:00 2022-07-21 00:00:00 3 [facility] History SDOH Financial 2022-07-21 00:00:00 2022-07-21 00:00:00 5 [facility] History SDOH Food Worry 2022-07-21 00:00:00 2022-07-21 00:00:00 1 [facility] History SDOH Food Scarcity 2022-07-21 00:00:00 2022-07-21 00:00:00 1 [facility] History SDOH Transport Med 2022-07-21 00:00:00 2022-07-21 00:00:00 2 [facility] History SDOH Transport Non-Med 2022-07-21 00:00:00 2022-07-21 00:00:00 2 [facility] History SDOH Physical Activity DPW 2022-07-21 00:00:00 2022-07-21 00:00:00 2 [facility] History SDOH Physical Activity MPS 2022-07-21 00:00:00 2022-07-21 00:00:00 1 [facility] History SDOH Housing Unable to Pay 2022-07-21 00:00:00 2022-07-21 00:00:00 2 [facility] History SDOH Housing Places Lived 2022-07-21 00:00:00 2022-07-21 00:00:00 1 [facility] History SDOH Housing Homeless Last Year 2022-07-21 00:00:00 2022-07-21 00:00:00 2 [facility] Tobacco use and exposure 2022-07-20 00:00:00 2022-07-20 00:00:00 Smokeless tobacco non-user [facility] History SDOH Alcohol Std Drinks 2022-05-28 00:00:00 2022-05-28 00:00:00 0 [facility] History SDOH Alcohol Binge 2022-05-28 00:00:00 2022-05-28 00:00:00 1 [facility] Sex Assigned At 1945 00:00:00 1945 00:00:00 [facility] Smoking Status Start Date Stop Date Source Never smoked tobacco [facility] Medications Ordered Medication Name Filled Medication Name [...] Tissue
Duration of Therapy: Other (see Comments) [facility] ciprofloxac in HCl 500 mg tablet 2022-04 00:00: 00 03-01 00:00 :00 No [id number] 500mg Take 1 tablet by mouth in the morning and 1 tablet at noon and 1 tablet in the evening. Do all this for 10 days. [facility] collagenase 250 unit/gram ointment 2022-04 00:00: 00 Yes [id number] Apply to area(s) daily. [facility] Vitamin E (E-PHEROL) 400 unit Tab 2022-04 14:37: 49 Yes 2{tbl} Take 2 tablets by mouth daily. [facility] latanoprost (XALATAN) 0.005 % ophthalmic drops 2022-04 14:37: 49 Yes 1[drp] 1 Drop every evening. [facility] brimonidine (ALPHAGAN) 0.2 % ophthalmic solution 2022-04 14:37: 49 Yes 1[drp] Take 1 Drop in the morning and 1 Drop at noon and 1 Drop in the evening. [facility] melatonin 10 mg Tab 2022-04 14:37: 49 Yes 10mg Take 10 mg by mouth at bedtime. [facility] acetaminoph en 500 mg tablet 2022-04 14:37: 49 Yes 1000mg Take 2 tablets by mouth at bedtime. [facility] mv-mn/iron/ folic acid/herb 190 (VITAMIN D3 COMPLETE ORAL) 2022-04 14:37: 49 Yes 5000U/d Take 5,000 Units/day by mouth daily. [facility] timolol 0.25 % ophthalmic solution 2022-04 14:37: 49 Yes 1[drp] Place 1 Drop in both eyes in the morning and 1 Drop in the evening. [facility] trazodone HCl (TRAZODONE ORAL) 2022-04 14:37: 49 Yes 25mg Take 25 mg by mouth at bedtime. [facility] polyethylen e glycol 3350 (MIRALAX) 17 gram/dose powder 2022-04 14:37: 49 Yes 17g Take 17 g by mouth in the morning. [facility] zinc sulfate 50 mg zinc (220 mg) capsule 2022-04 00:00: 00 Yes [id number] 50mg Take 1 capsule by mouth in the morning and 1 capsule at noon and 1 capsule in the evening. [facility] ascorbic acid, vitamin C, 500 mg tablet 2022-04 00:00: 00 Yes [id number] 500mg Take 1 tablet by mouth in the morning and 1 tablet in the evening. [facility] ibuprofen 400 mg tablet 2022-04 00:00: 00 Yes [id number] 400mg Take 1 tablet by mouth every 6 (six) hours as needed (Alternate with Tylenol for fever). [facility] codeine-gua ifenesin 10-100 mg/5 mL oral solution 2022-04 00:00: 00 02-14 05:59 :00 No [id number] 5mL Take 5 mL by mouth every 6 (six) hours as needed for Cough for up to 7 days. Indication s: acute pain, cough [facility] NaCl 0.9% (NS) IV infusion 1,000 mL 2022-04 20:00: 00 Yes 1000mL at 50 mL/hr, IV Infusion, CONTINUOUS , Starting on Thu02/04/23 at 1500, Until Discontinu ed, Routine [facility] D5W 0.9% NaCl (NS) IV infusion 1,000 mL 2022-04 03:00: 00 Yes 1000mL at 50 mL/hr, 1,000 mL, IV Infusion, CONTINUOUS , Starting on Thu02/03/23 at 2200, Until Discontinu ed, Routine [facility] D5W 0.9% NaCl (NS) IV infusion 1,000 mL 2022-04 02:15: 00 02-04 02:56 :32 No 1000mL at 150 mL/hr, 1,000 mL, IV Infusion, CONTINUOUS , Starting on Thu02/03/23 at 2115, Until Thu02/03/23 at 2156, Routine [facility] risperiDONE (RISPERDAL) tablet 4 mg 2022-04 02:00: 00 Yes 4mg 4 mg, Oral, QHS, First dose (after last modificati on) on Thu02/03/23 at 2100, Until Discontinu ed, Routine [facility] acetaminoph en (TYLENOL) suppository 650 mg 2022-04 21:35: 13 Yes 650mg 650 mg, Rectal, Q6HPRN, Starting on Thu02/03/23 at 1635, Until Discontinu ed, Routine, Temp > 38 C [facility] collagenase (SANTYL) ointment 2022-04 16:45: 00 Yes Topical, DAILY, First dose on Thu02/03/23 at 1145, Until Discontinu ed, Routine [facility] sodium hypochlorit e 0.25% (DAKIN'S SOLUTION) solution 2022-04 16:45: 00 Yes Topical, DAILY, First dose on Thu02/03/23 at 1145, Until Discontinu ed, Routine [facility] polyethylen e glycol 3350 powder 17 g 2022-04 14:00: 00 Yes 17g 17 g, Oral, DAILY, First dose on Thu02/03/23 at 0900, Until Discontinu ed [facility] omeprazole (PRILOSEC) capsule 20 mg 2022-04 14:00: 00 Yes 20mg 20 mg, Oral, DAILY, First dose on Thu02/03/23 at 0900, Until Discontinu ed, Routine [facility] lactobacill us acidophilus tablet 0.5 mg 2022-04 14:00: 00 Yes .5mg 0.5 mg, Oral, DAILY, First dose on Thu02/03/23 at 0900, Until Discontinu ed, Routine [facility] docusate (COLACE) 50 mg/5 mL solution 100 mg 2022-04 14:00: 00 Yes 100mg 100 mg, Oral, DAILY, First dose on Thu02/03/23 at 0900, Until Discontinu ed, Routine [facility] levoFLOXaci n (LEVAQUIN) tablet 750 mg 2022-04 14:00: 00 02-13 14:59 :00 No 750mg 750 mg, Oral, DAILY, 10 doses, First dose on Thu02/03/23 at 0900, Last dose on Thu02/12/23 at 0900, ROCKY
Re ason for Anti-Infec tive: Documented Infection< br>Documen nichole Infection Site: Skin / Soft Tissue
Duration of Therapy: 10 days [facility] sodium hypochlorit e 0.5% (DAKINS) solution 16 oz 2022-04 14:00: 00 02-03 16:41 :37 No 16[oz_a v] 16 oz, Topical, DAILY, First dose on Thu02/03/23 at 0900, Until Discontinu ed, Routine [facility] zinc sulfate (ORAZINC) capsule 50 mg 2022-04 13:00: 00 Yes 50mg 50 mg, Oral, TID, First dose on Thu02/03/23 at 0800, Until Discontinu ed, Routine [facility] ascorbic acid (vitamin C) (VITAMIN C) tablet 500 mg 2022-04 13:00: 00 Yes 500mg 500 mg, Oral, BID, First dose on Thu02/03/23 at 0800, Until Discontinu ed, Routine [facility] codeine-gua ifenesin (ROBITUSSIN AC) 10-100 mg/5 mL oral solution 5 mL 2022-04 05:26: 58 Yes 5mL 5 mL, Oral, Q6HPRN, Starting on Thu02/03/23 at 0026, Until Discontinu ed, Routine, Cough [facility] melatonin (MELATIN) tablet 10.5 mg 2022-04 02:00: 00 Yes 10mg 10.5 mg (rounded from 10 mg), Oral, QHS, First dose on Thu02/02/23 at 2100, Until Discontinu ed [facility] donepeziL (ARICEPT) tablet 10 mg 2022-04 02:00: 00 Yes 10mg 10 mg, Oral, QHS, First dose on Thu02/02/23 at 2100, Until Discontinu ed [facility] doxazosin (CARDURA) tablet 1 mg 2022-04 02:00: 00 Yes 1mg 1 mg, Oral, QHS, First dose on Thu02/02/23 at 2100, Until Discontinu ed, [facility] latanop[facility] (XALATAN) 0.005 % ophthalmic drops 1 Drop 2022-04 02:00: 00 Yes 1[drp] 1 Drop, Both Eyes, QHS, First dose on Thu02/02/23 at 2100, Until Discontinu ed, Routine [facility] traZODone (DESYREL) tablet 25 mg 2022-04 02:00: 00 02-03 05:28 :00 No 25mg 25 mg, Oral, QHS, First dose on Thu02/02/23 at 2100, Until Discontinu ed [facility] brimonidine (ALPHAGAN) 0.2 % ophthalmic solution 1 Drop 2022-04 01:00: 00 Yes 1[drp] 1 Drop, Both Eyes, TID, First dose on Thu02/02/23 at 2000, Until Discontinu ed, Routine [facility] timolol (TIMOPTIC) 0.5 % ophthalmic solution 1 Drop 2022-04 01:00: 00 Yes 1[drp] 1 Drop, Both Eyes, BID, First dose on Thu02/02/23 at 2000, Until Discontinu ed, Routine [facility] amoxicillin -clavulanat e (AUGMENTIN) 875-125 mg per tablet 1 tablet 2022-04 01:00: 00 02-13 01:59 :00 No 1{tbl} 1 tablet, Oral, BID, 20 doses, First dose on Thu02/02/23 at 2000, Last dose on Thu02/12/23 at 0800, Routine
Reason for Anti-Infec tive: Documented Infection< br>Documen nichole Infection Site: Skin / Soft Tissue
Duration of Therapy: 10 days [facility] ibuprofen (IBU) tablet 400 mg 2022-04 23:51: 58 Yes 400mg 400 mg, Oral, Q6HPRN, Starting on Thu02/02/23 at 1851, Until Discontinu ed, Routine, Alternate with Tylenol for fever [facility] acetaminoph en (TYLENOL) tablet 650 mg 2022-04 23:51: 40 02-03 21:35 :40 No 650mg 650 mg, Oral, Q6HPRN, Starting on Thu02/02/23 at 1851, Until Thu02/03/23 at 1635, Routine, Pain (scale 1-3), Temp > 38 C [facility] D5W 0.9% NaCl (NS) IV infusion 1,000 mL 2022-04 22:45: 00 02-04 00:14 :08 No 1000mL at 100 mL/hr, 1,000 mL, IV Infusion, CONTINUOUS , Starting on Thu02/02/23 at 1745, Until Thu02/03/23 at 1914, Routine [facility] acetaminoph en ADULT (OFIRMEV) injection 1,000 mg 2022-04 22:30: 00 02-02 23:02 :00 No 1000mg 1,000 mg, IV Infusion, at 400 mL/hr Administer over 15 Minutes, ONCE, 1 dose, On Thu02/02/23 at 1730, Routine
Indicatio n: Non-periop erative Patient
Approved by: Per Policy (NPO Status) [facility] enoxaparin (LOVENOX) injection 40 mg 2022-04 22:00: 00 Yes 40mg 40 mg, Subcutaneo us, DAILY, First dose on Thu02/02/23 at 1700, Until Discontinu ed, Routine [facility] risperiDONE (RISPERDAL) tablet 4 mg 2022-04 22:00: 00 02-03 17:34 :44 No 4mg 4 mg, Oral, QPM, First dose on Thu02/02/23 at 1700, Until Discontinu ed, Routine [facility] ondansetron (ZOFRAN (PF)) injection 4 mg 2022-04 21:37: 00 Yes 4mg 4 mg, Slow IV Push, Q6HPRN, Starting on Thu02/02/23 at 1637, Until Discontinu ed, Routine, Nausea and Vomiting (N/V) [facility] dextrometho rphan-guaif enesin (ROBITUSSIN DM) 10-100 mg/5 mL solution 10 mL 2022-04 21:31: 42 Yes 10mL 10 mL, Oral, Q6HPRN, Starting on Thu02/02/23 at 1631, Until Discontinu ed, Routine, Cough [facility] sodium hypochlorit e 0.5% (DAKINS) solution 16 oz 2022-04 14:00: 00 Yes 16[oz_a v] 16 oz, Topical, DAILY, First dose on Thu01/30/23 at 0900, Until Discontinu ed, Routine [facility] sodium hypochlorit e 0.5% solution 2022-04 00:00: 00 Yes [id number] 16[oz_a v] Apply 473 mL to area(s) in the morning. [facility] metoprolol succinate XL 25 mg 24 hr tablet 2022-04 00:00: 00 03-02 05:59 :00 No [id number] 12.5mg Take 0.5 tablets by mouth in the morning for 30 days. [facility] Vitamin E (E-PHEROL) 400 unit Tab 2022-04 14:48: 25 Yes 2{tbl} Take 2 tablets by mouth daily. [facility] latanoprost (XALATAN) 0.005 % ophthalmic drops 2022-04 14:48: 25 Yes 1[drp] 1 Drop every evening. [facility] brimonidine (ALPHAGAN) 0.2 % ophthalmic solution 2022-04 14:48: 25 Yes 1[drp] Take 1 Drop in the morning and 1 Drop at noon and 1 Drop in the evening. [facility] melatonin 10 mg Tab 2022-04 14:48: 25 Yes 10mg Take 10 mg by mouth at bedtime. [facility] acetaminoph en 500 mg tablet 2022-04 14:48: 25 Yes 1000mg Take 2 tablets by mouth at bedtime. [facility] mv-mn/iron/ folic acid/herb 190 (VITAMIN D3 COMPLETE ORAL) 2022-04 14:48: 25 Yes 5000U/d Take 5,000 Units/day by mouth daily. [facility] timolol 0.25 % ophthalmic solution 2022-04 14:48: 25 Yes 1[drp] Place 1 Drop in both eyes in the morning and 1 Drop in the evening. [facility] trazodone HCl (TRAZODONE ORAL) 2022-04 14:48: 25 Yes 25mg Take 25 mg by mouth at bedtime. [facility] polyethylen e glycol 3350 (MIRALAX) 17 gram/dose powder 2022-04 14:48: 25 Yes 17g Take 17 g by mouth in the morning. [facility] amoxicillin -clavulanat e (AUGMENTIN) 875-125 mg per tablet 1 tablet 2022-04 01:00: 00 02-12 01:59 :00 No 1{tbl} 1 tablet, Oral, Q12H, 28 doses, First dose on Thu01/28/23 at 2000, Last dose on Thu02/11/23 at 0800, Routine
Reason for Anti-Infec tive: Documented Infection< br>Documen nichole Infection Site: Skin / Soft Tissue
Duration of Therapy: 14 days [facility] levoFLOXaci n (LEVAQUIN) tablet 750 mg 2022-04 20:45: 00 02-11 14:59 :00 No 750mg 750 mg, Oral, DAILY, 14 doses, First dose on Thu01/28/23 at 1545, Last dose on Thu02/10/23 at 0900, Routine
Reason for Anti-Infec tive: Documented Infection< br>Documen nichole Infection Site: Skin / Soft Tissue
Duration of Therapy: 14 days [facility] dextrometho rphan-guaif enesin (ROBITUSSIN DM) 10-100 mg/5 mL solution 10 mL 2022-04 14:33: 23 Yes 10mL 10 mL, Oral, Q6HPRN, Starting on Thu01/28/23 at 0933, Until Discontinu ed, Routine, Cough [facility] levoFLOXaci n 750 mg tablet 2022-04 00:00: 00 02-12 05:59 :00 No [id number] 750mg Take 1 tablet by mouth in the morning for 14 days. [facility] amoxicillin -clavulanat e 875-125 mg per tablet 2022-04 00:00: 00 02-12 05:59 :00 No [id number] 1{tbl} Take 1 tablet by mouth in the morning and 1 tablet in the evening. Do all this for 14 days. [facility] collagenase (SANTYL) ointment 2022-04 14:00: 00 Yes Topical (Apply To Affected Areas), DAILY, First dose on Thu01/27/23 at 0900, Until Discontinu ed, Routine [facility] zolpidem (AMBIEN) tablet 5 mg 2022-04 02:35: 19 Yes 5mg 5 mg, Oral, QHSPRN, Starting on Thu01/26/23 at 2135, Until Discontinu ed, Routine, Insomnia [facility] metoprolol succinate XL (TOPROL XL) tablet 12.5 mg 2022-04 14:00: 00 Yes 12.5mg 12.5 mg, Oral, DAILY, First dose on Thu01/26/23 at 0900, Until Discontinu ed, Routine [facility] Vitamin E (dl, acetate) capsule 400 Units 2022-04 14:00: 00 Yes 400U 400 Units, Oral, DAILY, First dose on Thu01/26/23 at 0900, Until Discontinu ed [facility] polyethylen e glycol 3350 powder 17 g 2022-04 14:00: 00 Yes 17g 17 g, Oral, DAILY, First dose on Thu01/26/23 at 0900, Until Discontinu ed [facility] omeprazole (PRILOSEC) capsule 20 mg 2022-04 14:00: 00 Yes 20mg 20 mg, Oral, DAILY, First dose on Thu01/26/23 at 0900, Until Discontinu ed, Routine [facility] lactobacill us acidophilus tablet 0.5 mg 2022-04 14:00: 00 Yes .5mg 0.5 mg, Oral, DAILY, First dose on Thu01/26/23 at 0900, Until Discontinu ed, Routine [facility] docusate (COLACE) 50 mg/5 mL solution 50 mg 2022-04 14:00: 00 Yes 50mg 50 mg, Oral, DAILY, First dose on Thu01/26/23 at 0900, Until Discontinu ed, [facility] [facility] zolpidem (AMBIEN) tablet 5 mg 2022-04 06:30: 00 01-26 05:58 :00 No 5mg 5 mg, Oral, ONCE, 1 dose, On Thu01/26/23 at 0130, Routine [facility] heparin (porcine) injection 5,000 Units 2022-04 03:00: 00 Yes 5000U 5,000 Units, Subcutaneo us, Q8H, First dose on Thu01/25/23 at 2200, Until Discontinu ed, Routine [facility] cefTRIAXone (ROCEPHIN) 1,000 mg in NaCl 0.9% [...] of therapy: 5 days [facility] traZODone (DESYREL) tablet 25 mg 2022-04 02:00: 00 Yes 25mg 25 mg, Oral, QHS, First dose on Thu01/25/23 at 2100, Until Discontinu ed [facility] timolol (TIMOPTIC) 0.5 % ophthalmic solution 1 Drop 2022-04 02:00: 00 Yes 1[drp] 1 Drop, Both Eyes, BID, First dose on Thu01/25/23 at 2100, Until Discontinu ed, Routine [facility] risperiDONE (RISPERDAL) tablet 4 mg 2022-04 02:00: 00 Yes 4mg 4 mg, Oral, QHS, First dose on 01/25/23 at 2100, Until Discontinu ed, Routine [facility] melatonin (MELATIN) tablet 10.5 mg 2022-04 02:00: 00 Yes 10mg 10.5 mg (rounded from 10 mg), Oral, QHS, First dose on 01/25/23 at 2100, Until Discontinu ed [facility] latanoprost (XALATAN) 0.005 % ophthalmic drops 1 Drop 2022-04 02:00: 00 Yes 1[drp] 1 Drop, Both Eyes, QHS, First dose on 01/25/23 at 2100, Until Discontinu ed, Routine [facility] donepeziL (ARICEPT) tablet 10 mg 2022-04 02:00: 00 Yes 10mg 10 mg, Oral, QHS, First dose on 01/25/23 at 2100, Until Discontinu ed [facility] doxazosin (CARDURA) tablet 1 mg 2022-04 02:00: 00 Yes 1mg 1 mg, Oral, QHS, First dose on 01/25/23 at 2100, Until Discontinu ed, Routine [facility] acetaminoph en (TYLENOL) tablet 1,000 mg 2022-04 02:00: 00 Yes 1000mg 1,000 mg, Oral, QHS, First dose on 01/25/23 at 2100, Until Discontinu ed, Routine [facility] brimonidine (ALPHAGAN) 0.2 % ophthalmic solution 1 Drop 2022-04 02:00: 00 Yes 1[drp] 1 Drop, Both Eyes, BID, First dose on 01/25/23 at 2100, Until Discontinu ed, Routine [facility] simvastatin (ZOCOR) tablet 40 mg 2022-04 02:00: 00 01-27 22:47 :39 No 40mg 40 mg, Oral, QHS, First dose on 01/25/23 at 2100, Until Discontinu ed, Routine [facility] guaiFENesin 100 mg/5 mL solution 200 mg 2022-04 00:20: 03 01-28 14:34 :14 No 200mg 200 mg, Oral, Q4HPRN, Starting on Thu01/25/23 at 1920, Until Thu01/28/23 at 0934, Routine, Cough [facility] vancomycin 1,250 mg in NaCl 0.9% (NS) [...]
Du ration of therapy: 72 hours [facility] ondansetron (ZOFRAN (PF)) injection 4 mg 2022-04 22:25: 28 Yes 4mg 4 mg, Slow IV Push, Q6HPRN, Starting on Thu01/25/23 at 1725, Until Discontinu ed, Routine, Nausea and Vomiting (N/V) [facility] acetaminoph en (TYLENOL) tablet 650 mg 2022-04 22:25: 21 Yes 650mg 650 mg, Oral, Q6HPRN, Starting on Thu01/25/23 at 1725, Until Discontinu ed, Routine, Pain (scale 1-3) [facility] ampicillin- sulbactam (UNASYN) 3 g in NaCl 0.9% (NS) 100 mL MINI-BAG 2022-04 20:15: 00 01-25 21:19 :00 No 3g 3 g, IV Piggyback, ONCE, 1 dose, On Thu01/25/23 at 1515, Administer over 30 Minutes, 100 mL
Reas on for Anti-Infec tive: Documented Infection< br>Documen nichole Infection Site: Skin / Soft Tissue
Duration of Therapy: 7 days [facility] Fish Oil-DHA-EPA 1,200-144-2 16 mg Cap 2022-04 18:31: 29 01-25 00:00 :00 No 1{capsu le} Take 1 capsule by mouth daily. [facility] collagenase (SANTYL) ointment 12-01 16:00: 00 Yes Topical (Apply To Affected Areas), DAILY, First dose on Thu12/01/22 at 1100, Until Discontinu ed, Routine [facility] Vitamin E (E-PHEROL) 400 unit Tab 12-01 15:03: 18 Yes 2{tbl} Take 2 tablets by mouth daily. [facility] latanoprost (XALATAN) 0.005 % ophthalmic drops 12-01 15:03: 18 Yes 1[drp] 1 Drop every evening. [facility] brimonidine (ALPHAGAN) 0.2 % ophthalmic solution 12-01 15:03: 18 Yes 1[drp] Take 1 Drop in the morning and 1 Drop at noon and 1 Drop in the evening. [facility] Fish Oil-DHA-EPA 1,200-144-2 16 mg Cap 12-01 15:03: 18 Yes 1{capsu le} Take 1 capsule by mouth daily. [facility] melatonin 10 mg Tab 12-01 15:03: 18 Yes 10mg Take 10 mg by mouth at bedtime. [facility] acetaminoph en 500 mg tablet 12-01 15:03: 18 Yes 1000mg Take 2 tablets by mouth at bedtime. [facility] mv-mn/iron/ folic acid/herb 190 (VITAMIN D3 COMPLETE ORAL) 12-01 15:03: 18 Yes 5000U/d Take 5,000 Units/day by mouth daily. [facility] timolol 0.25 % ophthalmic solution 12-01 15:03: 18 Yes 1[drp] Place 1 Drop in both eyes in the morning and 1 Drop in the evening. [facility] trazodone HCl (TRAZODONE ORAL) 12-01 15:03: 18 Yes 25mg Take 25 mg by mouth at bedtime. [facility] risperiDONE (RISPERDAL) tablet 4 mg 12-01 02:00: 00 Yes 4mg 4 mg, Oral, QHS, First dose (after last modificati on) on 11/30/22 at 2100, Until Discontinu ed, Routine [facility] clindamycin 75 mg/5 mL suspension 12-01 00:00: 00 12-10 04:59 :00 No [id number] 150mg Take 10 mL by mouth 4 (four) times daily for 8 days. [facility] tamsulosin (FLOMAX) capsule 0.4 mg 11-30 14:00: 00 Yes .4mg 0.4 mg, Oral, DAILY, First dose on 11/30/22 at 0900, Until Discontinu ed, Routine [facility] omeprazole (PRILOSEC) capsule 20 mg 11-30 14:00: 00 Yes 20mg 20 mg, Oral, DAILY, First dose on 11/30/22 at 0900, Until Discontinu ed, Routine [facility] docusate (COLACE) 50 mg/5 mL solution 100 mg 11-30 14:00: 00 Yes 100mg 100 mg, Oral, DAILY, First dose on 11/30/22 at 0900, Until Discontinu ed, Routine [facility] glycerin/mi neral oil (AGLO ENEMA) (COMPOUNDED ) Enem 225 mL 11-30 14:00: 00 11-30 14:49 :00 No 225mL 225 mL, Rectal, ONCE, 1 dose, On 11/30/22 at 0900, Routine [facility] timolol (TIMOPTIC) 0.5 % ophthalmic solution 1 Drop 11-30 13:00: 00 Yes 1[drp] 1 Drop, Both Eyes, BID, First dose on 11/30/22 at 0800, Until Discontinu ed, [facility] brimonidine (ALPHAGAN) 0.2 % ophthalmic solution 1 Drop 11-30 13:00: 00 Yes 1[drp] 1 Drop, Both Eyes, TID, First dose on [place] 11/30/22 at 0800, Until Discontinu ed, Routine [facility] clindamycin in 5 % dextrose (CLEOCIN) 600 mg/50 mL IV piggyback RTU 600 mg 11-30 07:15: 00 12-05 07:14 :00 No 600mg 600 mg, IV Piggyback, Q8H ABX, 15 doses, First dose on [place] 11/30/22 at 0215, Last dose on Thu12/04/22 at 1815, Administer over 30 Minutes, 50 mL
Reas on for Anti-Infec tive: Empiric Therapy for Suspected Infection< br>Empiric Therapy Site: Skin / Soft tissue
Duration of therapy: 5 days
Re stricted use approved by: After Hours (for ADC, CLC, LCC ONLY) [facility] NaCl 0.9% (NS) IV infusion 1,000 mL 11-30 03:15: 00 11-30 03:02 :43 No 1000mL at 75 mL/hr, IV Infusion, ONCE, 1 dose, On [facility] 11/29/22 at 2215, Routine [facility] heparin (porcine) injection 5,000 Units 11-30 03:00: 00 Yes 5000U 5,000 Units, Subcutaneo us, Q8H, First dose on [facility] 11/29/22 at 2200, Until Discontinu ed, Routine [facility] risperiDONE (RISPERDAL) tablet 4 mg 11-30 02:30: 00 11-30 22:24 :26 No 4mg 4 mg, Oral, QPM, First dose (after last modificati on) on 11/29/22 at 2130, Until Discontinu ed, Routine [facility] simvastatin (ZOCOR) tablet 40 mg 11-30 02:00: 00 Yes 40mg 40 mg, Oral, QHS, First dose on 11/29/22 at 2100, Until Discontinu ed, Routine [facility] melatonin (MELATIN) tablet 10.5 mg 11-30 02:00: 00 Yes 10mg 10.5 mg (rounded from 10 mg), Oral, QHS, First dose on Thu11/29/22 at 2100, Until Discontinu ed [facility] traZODone (DESYREL) tablet 25 mg 11-30 01:47: 26 Yes 25mg 25 mg, Oral, QHSPRN, Starting on Thu11/29/22 at 2046, Until Discontinu ed, Insomnia [facility] dextrometho rphan-guaif enesin (ROBITUSSIN DM) 10-100 mg/5 mL solution 10 mL 11-30 01:41: 51 Yes 10mL 10 mL, Oral, Q6HPRN, Starting on Thu11/29/22 at 2040, Until Discontinu ed, Routine, Cough [facility] acetaminoph en (TYLENOL) tablet 650 mg 11-30 00:19: 33 Yes 650mg 650 mg, Oral, Q6HPRN, Starting on Thu11/29/22 at 1919, Until Discontinu ed, Routine, Pain (scale 1-3) [facility] NaCl 0.9% (NS) bolus infusion 1,000 mL 11-29 23:45: 00 11-29 23:11 :00 No 1000mL at 999 mL/hr, 1,000 mL, IV Piggyback, ONCE, 1 dose, On Thu11/29/22 at 1845, STAT [facility] LORazepam (ATIVAN) injection 0.5 mg 11-29 23:00: 00 11-29 23:09 :00 No .5mg 0.5 mg, Slow IV Push, ONCE, 1 dose, On Thu11/29/22 at 1800, STAT [facility] lactulose (CEPHULAC) solution 30 mL 11-26 23:00: 00 11-27 01:06 :00 No 30mL 30 mL, Oral, ONCE, 1 dose, On Thu11/26/22 at 1800, ROCKY [facility] iopamidol (ISOVUE 370-500 mL) injection 80 mL 11-26 22:45: 00 11-26 22:45 :00 No [id number] 80mL 80 mL, Intravenou s, ONCE, 1 dose, On Thu11/26/22 at 1745, Routine [facility] NaCl 0.9% (NS) bolus infusion 500 mL 11-26 19:15: 00 11-26 20:30 :00 No 500mL at 999 mL/hr, 500 mL, IV Infusion, ONCE, 1 dose, On Thu11/26/22 at 1415, STAT [facility] doxazosin 2 mg tablet 11-11 00:00: 00 Yes 1mg Take 0.5 tablets by mouth at bedtime. [facility] Vitamin E (E-PHEROL) 400 unit Tab 10-30 14:25: 29 Yes 2{tbl} Take 2 tablets by mouth daily. [facility] latanoprost (XALATAN) 0.005 % ophthalmic drops 10-30 14:25: 29 Yes 1[drp] 1 Drop every evening. [facility] brimonidine (ALPHAGAN) 0.2 % ophthalmic solution 10-30 14:25: 29 Yes 1[drp] Take 1 Drop in the morning and 1 Drop at noon and 1 Drop in the evening. [facility] Fish Oil-DHA-EPA 1,200-144-2 16 mg Cap 10-30 14:25: 29 Yes 1{capsu le} Take 1 capsule by mouth daily. [facility] melatonin 10 mg Tab 10-30 14:25: 29 Yes 10mg Take 10 mg by mouth at bedtime. [facility] acetaminoph en 500 mg tablet 10-30 14:25: 29 Yes 1000mg Take 2 tablets by mouth at bedtime. [facility] mv-mn/iron/ folic acid/herb 190 (VITAMIN D3 COMPLETE ORAL) 10-30 14:25: 29 Yes 5000U/d Take 5,000 Units/day by mouth daily. [facility] timolol 0.25 % ophthalmic solution 10-30 14:25: 29 Yes 1[drp] Place 1 Drop in both eyes in the morning and 1 Drop in the evening. [facility] trazodone HCl (TRAZODONE ORAL) 10-30 14:25: 29 Yes 25mg Take 25 mg by mouth at bedtime. [facility] collagenase (SANTYL) ointment 10-30 14:00: 00 Yes Topical (Apply To Affected Areas), DAILY, First dose (after last modificati on) on Thu10/30/22 at 0900, Until Discontinu ed, Routine [facility] dextrometho rphan-guaif enesin 10-100 mg/5 mL solution 10-30 00:00: 00 Yes [id number] 10mL Take 10 mL by mouth every 6 (six) hours as needed for Cough. [facility] amoxicillin -pot clavulanate (AUGMENTIN) 250-62.5 mg/5 mL suspension 10-30 00:00: 00 11-07 04:59 :00 No [id number] 500mg Take 10 mL by mouth in the morning and 10 mL at noon and 10 mL in the evening. Do all this for 7 days. [facility] predniSONE 5 mg/5 mL solution 10-30 00:00: 00 11-05 04:59 :00 No [id number] 20mg Take 20 mL by mouth in the morning for 5 days. [facility] codeine-gua ifenesin (ROBITUSSIN AC) 10-100 mg/5 mL oral solution 5 mL 10-29 17:49: 39 Yes [id number] 5mL 5 mL, Oral, Q6HPRN, Starting on Thu10/29/22 at 1249, Until Discontinu ed, Routine, Cough [facility] latanoprost (XALATAN) 0.005 % ophthalmic drops 1 Drop 10-29 02:45: 00 Yes 1[drp] 1 Drop, Both Eyes, QPM, First dose on Thu10/28/22 at 2145, Until Discontinu ed, Routine [facility] brimonidine (ALPHAGAN) 0.2 % ophthalmic solution 1 Drop 10-29 02:45: 00 Yes 1[drp] 1 Drop, Both Eyes, BID, First dose on Thu10/28/22 at 2145, Until Discontinu ed, Routine [facility] timolol (TIMOPTIC) 0.25 % ophthalmic solution 1 Drop 10-29 02:45: 00 Yes 1[drp] 1 Drop, Both Eyes, BID, First dose on Thu10/28/22 at 2145, Until Discontinu ed, Routine [facility] traZODone (DESYREL) tablet 25 mg 10-29 02:00: 00 Yes 25mg 25 mg, Oral, QHS, First dose on Thu10/28/22 at 2100, Until Discontinu ed [facility] simvastatin (ZOCOR) tablet 40 mg 10-29 02:00: 00 Yes 40mg 40 mg, Oral, QHS, First dose on Thu10/28/22 at 2100, Until Discontinu ed, [facility] (RISPERDAL) tablet 4 mg 10-28 22:00: 00 Yes 4mg 4 mg, Oral, QPM, First dose on Thu10/28/22 at 1700, Until Discontinu ed, Routine [facility] enoxaparin (LOVENOX) injection 40 mg 10-28 14:00: 00 Yes 40mg 40 mg, Subcutaneo us, DAILY, First dose on Thu10/28/22 at 0900, Until Discontinu ed, Routine [facility] omeprazole (PRILOSEC) capsule 20 mg 10-28 14:00: 00 Yes 20mg 20 mg, Oral, DAILY, First dose on Thu10/28/22 at 0900, Until Discontinu ed, Routine [facility] lactobacill us acidophilus tablet 0.5 mg 10-28 14:00: 00 Yes .5mg 0.5 mg, Oral, DAILY, First dose on Thu10/28/22 at 0900, Until Discontinu ed, Routine [facility] docusate (COLACE) 50 mg/5 mL solution 100 mg 10-28 14:00: 00 Yes 100mg 100 mg, Oral, DAILY, First dose on Thu10/28/22 at 0900, Until Discontinu ed, Routine [facility] ipratropium -albuteroL (DUONEB) 0.5 mg-3 mg(2.5 mg base)/3 mL nebulizer solution 3 mL 10-28 13:00: 00 Yes 3mL 3 mL, Inhalation , QID, First dose on Thu10/28/22 at 0800, Until Discontinu ed, Routine [facility] galantamine (REMINYL) tablet 8 mg 10-28 13:00: 00 Yes 8mg 8 mg, Oral, BID, First dose on Thu10/28/22 at 0800, Until Discontinu ed, Routine [facility] glucagon (GLUCAGEN DIAGNOSTIC KIT) injection 1 mg 10-28 12:15: 24 Yes 1mg 1 mg, Intramuscu lar, PRN, Starting on Thu10/28/22 at 0715, Until Discontinu ed, ROCKY, Blood Glucose < or = 70 mg/dL and patient is NPO, unable to swallow or has mental changes. [facility] dextrose 50 % in water (D50W) injection 25 mL 10-28 12:15: 24 Yes 25mL 25 mL, Slow IV Push, PRN, Starting on Thu10/28/22 at 0715, Until Discontinu ed, ROCKY, Blood Glucose < or = 70 mg/dL and patient is NPO, unable to swallow or has mental status changes. [facility] ondansetron (ZOFRAN (PF)) injection 4 mg 10-28 11:43: 22 Yes 4mg 4 mg, Slow IV Push, Q6HPRN, Starting on Thu10/28/22 at 0643, Until Discontinu ed, Routine, Nausea and Vomiting (N/V) [facility] acetaminoph en (TYLENOL) tablet 650 mg 10-28 11:43: 10 Yes 650mg 650 mg, Oral, Q6HPRN, Starting on Thu10/28/22 at 0643, Until Discontinu ed, Routine, Pain (scale 1-3) [facility] acetaminoph en (TYLENOL) tablet 650 mg 10-28 06:45: 00 10-28 07:25 :00 No 650mg 650 mg, Oral, ONCE, 1 dose, On Thu10/28/22 at 0145, ROCKY [facility] NaCl 0.9% (NS) injection 5 mL 10-28 06:37: 55 Yes 5mL 5 mL, Slow IV Push, PRN - SEE INSTRUCTIO NS, Starting on Thu10/28/22 at 0137, Until Discontinu ed, 10 mL [facility] Vitamin E (E-PHEROL) 400 unit Tab 08-27 14:48: 28 Yes 2{tbl} Take 2 tablets by mouth daily. [facility] latanoprost (XALATAN) 0.005 % ophthalmic drops 08-27 14:48: 28 Yes 1[drp] 1 Drop every evening. [facility] brimonidine (ALPHAGAN) 0.2 % ophthalmic solution 08-27 14:48: 28 Yes 1[drp] Take 1 Drop in the morning and 1 Drop at noon and 1 Drop in the evening. [facility] Fish Oil-DHA-EPA 1,200-144-2 16 mg Cap 08-27 14:48: 28 Yes 1{capsu le} Take 1 capsule by mouth daily. [facility] melatonin 10 mg Tab 08-27 14:48: 28 Yes 10mg Take 10 mg by mouth at bedtime. [facility] acetaminoph en 500 mg tablet 08-27 14:48: 28 Yes 1000mg Take 2 tablets by mouth at bedtime. [facility] mv-mn/iron/ folic acid/herb 190 (VITAMIN D3 COMPLETE ORAL) 08-27 14:48: 28 Yes 5000U/d Take 5,000 Units/day by mouth daily. [facility] timolol 0.25 % ophthalmic solution 08-27 14:48: 28 Yes 1[drp] Place 1 Drop in both eyes in the morning and 1 Drop in the evening. [facility] tamsulosin (FLOMAX) 0.4 mg 24 hr capsule 08-27 00:00: 00 01-25 00:00 :00 No [id number] .4mg Take 1 capsule by mouth in the morning. [facility] docusate 50 mg/5 mL solution 07-27 00:00: 00 Yes [id number] 100mg Take 10 mL by mouth in the morning. [facility] collagenase 250 unit/gram ointment 07-27 00:00: 00 08-07 04:59 :00 No [id number] Apply to affected area(s) daily for 10 days. [facility] risperiDONE (RISPERDAL) tablet 2 mg 07-26 22:00: 00 Yes 2mg 2 mg, Oral, QPM, First dose (after last modificati on) on 07/26/22 at 1700, Until Discontinu ed, Routine [facility] Vitamin E (E-PHEROL) 400 unit Tab 07-26 16:43: 26 Yes 2{tbl} Take 2 tablets by mouth daily. [facility] latanoprost (XALATAN) 0.005 % ophthalmic drops 07-26 16:43: 26 Yes 1[drp] 1 Drop every evening. [facility] brimonidine (ALPHAGAN) 0.2 % ophthalmic solution 07-26 16:43: 26 Yes 1[drp] Take 1 Drop in the morning and 1 Drop at noon and 1 Drop in the evening. [facility] Fish Oil-DHA-EPA 1,200-144-2 16 mg Cap 07-26 16:43: 26 Yes 1{capsu le} Take 1 capsule by mouth daily. [facility] melatonin 10 mg Tab 07-26 16:43: 26 Yes 10mg Take 10 mg by mouth at bedtime. [facility] acetaminoph en 500 mg tablet 07-26 16:43: 26 Yes 1000mg Take 2 tablets by mouth at bedtime. [facility] mv-mn/iron/ folic acid/herb 190 (VITAMIN D3 COMPLETE ORAL) 07-26 16:43: 26 Yes 5000U/d Take 5,000 Units/day by mouth daily. [facility] timolol 0.25 % ophthalmic solution 07-26 16:43: 26 Yes 1[drp] Place 1 Drop in both eyes in the morning and 1 Drop in the evening. [facility] amoxicillin -clavulanat e 400-57 mg/5 mL suspension 07-26 00:00: 00 08-22 04:59 :00 No [id number] 800mg Take 10 mL by mouth in the morning and 10 mL in the evening. Do all this for 52 doses. [facility] SODIUM HYPOCHLORIT E 0.025% Soln solution 07-26 00:00: 00 07-28 04:59 :00 No [id number] 1000mL Apply 1,000 mL to area(s) in the morning for 1 dose. [facility] amoxicillin -clavulanat e (AUGMENTIN) [...] Tissue
Duration of Therapy: Other (see Comments) [facility] LORazepam (ATIVAN) injection 1 mg 07-25 18:15: 00 07-25 18:04 :00 No 1mg 1 mg, Slow IV Push, ONCE, 1 dose, On Thu07/25/22 at 1315, Routine [facility] iopamidol (ISOVUE 370-500 mL) injection 80 mL 07-25 18:09: 00 07-25 18:11 :00 No [id number] 80mL 80 mL, Intravenou s, ONCE, 1 dose, On Thu07/25/22 at 1330, Routine [facility] amoxicillin -clavulanat e (AUGMENTIN) 875-125 mg per tablet 1 tablet 07-25 04:00: 00 07-25 12:22 :33 No 1{tbl} 1 tablet, Oral, Q12H, 56 doses, First dose on Thu07/24/22 at 2300, Last dose on Thu08/21/22 at 0800, Routine
Reason for Anti-Infec tive: Documented Infection< br>Documen nichole Infection Site: Skin / Soft Tissue
Duration of Therapy: Other (see Comments) [facility] levalbutero l (XOPENEX) nebulizer solution 0.63 mg 07-25 02:51: 00 Yes .63mg 0.63 mg, Inhalation , TIDPRN, Starting on Thu07/24/22 at 2151, Until Discontinu ed, Routine, Wheezing, Shortness of Breath [facility] ipratropium (ATROVENT) 0.02 % nebulizer solution 0.5 mg 07-25 02:22: 54 Yes .5mg 0.5 mg, Inhalation , Q4HPRN, Starting on Thu07/24/22 at 2121, Until Discontinu ed, Routine, Wheezing, Shortness of Breath, Bronchospa sm, Chest tightness [facility] codeine-gua ifenesin (ROBITUSSIN AC) 10-100 mg/5 mL oral solution 5 mL 07-25 02:22: 34 Yes 5mL 5 mL, Oral, Q6HPRN, Starting on Thu07/24/22 at 2121, Until Discontinu ed, Routine, Cough [facility] sodium hypochlorit e 0.25% (DAKIN'S SOLUTION) solution 07-24 22:00: 00 07-24 21:28 :00 No Topical, ONCE, 1 dose, On Thu07/24/22 at 1700, Routine [facility] fluconazole (DIFLUCAN) Piggyback 200 mg 07-24 16:15: 00 07-26 16:20 :00 No 200mg at 100 mL/hr, IV Piggyback, Q24H ABX, 3 doses, First dose on Thu07/24/22 at 1115, Last dose on Thu07/26/22 at 1115, ROCKY
Do Not Refrigerat e.
[facility] piperacilli n-tazobacta m (ZOSYN) 3.375 g in [...] Soft tissue
Duration of therapy: 72 hours [facility] vancomycin (VANCOCIN) 1,000 mg in NaCl 0.9% [...] Tissue
Duration of Therapy: 7 days [facility] Vitamin E (dl, acetate) capsule 800 Units 07-23 14:00: 00 Yes 800U 800 Units, Oral, DAILY, First dose on Thu07/23/22 at 0900, Until Discontinu ed, Routine [facility] lactobacill us acidophilus tablet 0.5 mg 07-23 14:00: 00 Yes .5mg 0.5 mg, Oral, DAILY, First dose on Thu07/23/22 at 0900, Until Discontinu ed, Routine [facility] docusate (COLACE) 50 mg/5 mL solution 100 mg 07-22 15:15: 00 Yes 100mg 100 mg, Oral, DAILY, First dose on Thu07/22/22 at 1015, Until Discontinu ed, Routine [facility] QUEtiapine (SEROQUEL) tablet 25 mg 07-22 04:30: 00 07-22 03:55 :00 No 25mg 25 mg, Oral, ONCE, 1 dose, On Thu07/21/22 at 2330, Routine [facility] simvastatin (ZOCOR) tablet 40 mg 07-22 02:00: 00 Yes 40mg 40 mg, Oral, QHS, First dose on Thu07/21/22 at 2100, Until Discontinu ed, Routine [facility] latanoprost (XALATAN) 0.005 % ophthalmic drops 1 Drop 07-21 22:00: 00 Yes 1[drp] 1 Drop, Both Eyes, QPM, First dose on Thu07/21/22 at 1700, Until Discontinu ed, Routine [facility] piperacilli n-tazobacta m (ZOSYN) [...] Soft tissue
Duration of therapy: 72 hours [facility] collagenase (SANTYL) ointment 07-21 15:45: 00 Yes Topical (Apply To Affected Areas), DAILY, First dose on Thu07/21/22 at 1045, Until Discontinu ed, Routine [facility] galantamine (REMINYL) tablet 8 mg 07-21 15:15: 00 Yes 8mg 8 mg, Oral, BID, First dose on Thu07/21/22 at 1015, Until Discontinu ed, Routine [facility] tamsulosin (FLOMAX) capsule 0.4 mg 07-21 14:00: 00 Yes .4mg 0.4 mg, Oral, DAILY, First dose on Thu07/21/22 at 0900, Until Discontinu ed, Routine [facility] omeprazole (PRILOSEC) capsule 20 mg 07-21 14:00: 00 Yes 20mg 20 mg, Oral, DAILY, First dose on Thu07/21/22 at 0900, Until Discontinu ed, Routine [facility] enoxaparin (LOVENOX) injection 40 mg 07-21 14:00: 00 Yes 40mg 40 mg, Subcutaneo us, DAILY, First dose on Thu07/21/22 at 0900, Until Discontinu ed, Routine [facility] docusate (COLACE) capsule 100 mg 07-21 14:00: 00 07-22 15:13 :38 No 100mg 100 mg, Oral, DAILY, First dose on Thu07/21/22 at 0900, Until Discontinu ed, Routine [facility] timolol (TIMOPTIC) 0.5 % ophthalmic solution 1 Drop 07-21 13:30: 00 Yes 1[drp] 1 Drop, Both Eyes, BID, First dose on Thu07/21/22 at 0830, Until Discontinu ed, Routine [facility] brimonidine (ALPHAGAN) 0.2 % ophthalmic solution 1 Drop 07-21 13:00: 00 Yes 1[drp] 1 Drop, Both Eyes, TID, First dose on Thu07/21/22 at 0800, Until Discontinu ed, [facility] 9 mg 07-21 05:15: 00 Yes 9mg 9 mg, Oral, QHS, First dose (after last modificati on) on Thu07/21/22 at 0015, Until [facility]continu ed [facility] acetaminoph en (TYLENOL) tablet 1,000 mg 07-21 05:00: 00 Yes 1000mg 1,000 mg, Oral, QHS, First dose (after last modificati on) on Thu07/21/22 at 0000, Until Discontinu ed, Routine [facility] risperiDONE (RISPERDAL) tablet 4 mg 07-21 05:00: 00 07-26 02:28 :57 No 4mg 4 mg, Oral, QPM, First dose (after last modificati on) on Thu07/21/22 at 0000, Until Discontinu ed, Routine [facility] piperacilli n-tazobacta m (ZOSYN) 3.375 g in [...] tissue
Duration of therapy: 72 hours [facility] NaCl 0.9% (NS) bolus infusion 1,000 mL 07-21 03:15: 00 07-21 02:30 :00 No 1000mL at 999 mL/hr, 1,000 mL, IV Piggyback, ONCE, 1 dose, On 07/20/22 at 2215, STAT [facility] ondansetron (ZOFRAN (PF)) injection 4 mg 07-21 02:47: 49 Yes 4mg 4 mg, Slow IV Push, Q6HPRN, Starting on Thu07/20/22 at 2147, Until Discontinu ed, Routine, Nausea and Vomiting (N/V) [facility] HYDROcodone -acetaminop hen (NORCO) 10-325 mg tablet 1 tablet 07-21 02:47: 43 Yes 1{tbl} 1 tablet, Oral, Q6HPRN, Starting on Thu07/20/22 at 2147, Until Discontinu ed, Routine, Pain (scale 7-10) [facility] acetaminoph en (TYLENOL) tablet 650 mg 07-21 02:47: 34 Yes 650mg 650 mg, Oral, Q6HPRN, Starting on Thu07/20/22 at 2147, Until Discontinu ed, Routine, Pain (scale 1-3) [facility] NaCl 0.9% (NS) bolus infusion 1,000 mL 07-18 21:00: 00 07-18 22:16 :00 No 1000mL at 999 mL/hr, 1,000 mL, IV Piggyback, ONCE, 1 dose, On Thu07/18/22 at 1600, STAT [facility] piperacilli n-tazobacta m (ZOSYN) 3.375 g in NaCl 0.9% (NS) 100 mL MINI-BAG 07-18 20:00: 00 07-18 21:09 :00 No 3.375g 3.375 g, IV Piggyback, ONCE, 1 dose, On Thu07/18/22 at 1500, Administer over 30 Minutes, 100 mL
Reas on for Anti-Infec tive: Documented Infection< br>Documen nichole Infection Site: Skin / Soft Tissue
Duration of Therapy: 7 days [facility] cefpodoxime 200 mg tablet 07-18 00:00: 00 08-02 04:59 :00 No [id number] 200mg Take 1 tablet by mouth in the morning and 1 tablet in the evening. Do all this for 14 days. [facility] levoFLOXaci n 750 mg tablet 07-18 00:00: 00 07-29 04:59 :00 No [id number] 750mg Take 1 tablet by mouth every 24 (twenty-fo ur) hours for 10 days. [facility] iopamidol (ISOVUE 370-500 mL) injection 78 mL 06-10 19:45: 00 06-10 19:45 :00 No [id number] 78mL 78 mL, Intravenou s, ONCE, 1 dose, On Thu06/10/22 at 1345, Routine [facility] ondansetron (ZOFRAN (PF)) injection 4 mg 06-10 17:45: 00 06-10 17:13 :00 No 4mg 4 mg, Slow IV Push, ONCE, 1 dose, On Thu06/10/22 at 1145, ROCKY [facility] polyethylen e glycol 3350 powder 17 g 05-28 15:00: 00 Yes 17g 17 g, Oral, DAILY, First dose on Thu05/28/22 at 0900, Until Discontinu ed, Routine [facility] tamsulosin (FLOMAX) capsule 0.4 mg 05-28 15:00: 00 Yes .4mg 0.4 mg, Oral, DAILY, First dose on Thu05/28/22 at 0900, Until Discontinu ed, Routine [facility] omeprazole (PRILOSEC) capsule 20 mg 05-28 15:00: 00 Yes 20mg 20 mg, Oral, DAILY, First dose on Thu05/28/22 at 0900, Until Discontinu ed, Routine [facility] lactobacill us acidophilus tablet 0.5 mg 05-28 15:00: 00 Yes .5mg 0.5 mg, Oral, DAILY, First dose on Thu05/28/22 at 0900, Until Discontinu ed, Routine [facility] Vitamin E (E-PHEROL) 400 unit Tab 05-28 14:50: 45 Yes 2{tbl} Take 2 tablets by mouth daily. [facility] latanoprost (XALATAN) 0.005 % ophthalmic drops 05-28 14:50: 45 Yes 1[drp] 1 Drop every evening. [facility] brimonidine (ALPHAGAN) 0.2 % ophthalmic solution 05-28 14:50: 45 Yes 1[drp] 1 Drop 3 (three) times daily. [facility] Fish Oil-DHA-EPA 1,200-144-2 16 mg Cap 05-28 14:50: 45 Yes 1{capsu le} Take 1 capsule by mouth daily. [facility] melatonin 10 mg Tab 05-28 14:50: 45 Yes 10mg Take 10 mg by mouth at bedtime. [facility] acetaminoph en 500 mg tablet 05-28 14:50: 45 Yes 1000mg Take 1,000 mg by mouth at bedtime. [facility] mv-mn/iron/ folic acid/herb 190 (VITAMIN D3 COMPLETE ORAL) 05-28 14:50: 45 Yes 5000U/d Take 5,000 Units/day by mouth daily. [facility] timolol 0.25 % ophthalmic solution 05-28 14:50: 45 Yes 1[drp] Place 1 Drop in both eyes 2 (two) times daily. [facility] acetaminoph en (TYLENOL) tablet 1,000 mg 05-28 03:00: 00 Yes 1000mg 1,000 mg, Oral, QHS, First dose on Thu05/27/22 at 2100, Until Discontinu ed, Routine [facility] simvastatin (ZOCOR) tablet 40 mg 05-28 03:00: 00 Yes 40mg 40 mg, Oral, QHS, First dose on Thu05/27/22 at 2100, Until Discontinu ed, Routine [facility] melatonin (MELATIN) tablet 9 mg 05-28 03:00: 00 Yes 9mg 9 mg, Oral, QHS, First dose on Thu05/27/22 at 2100, Until Discontinu ed [facility] docusate (COLACE) capsule 100 mg 05-28 02:00: 00 Yes 100mg 100 mg, Oral, BID, First dose on Thu05/27/22 at 2000, Until Discontinu ed, Routine [facility] galantamine (REMINYL) tablet 8 mg 05-28 02:00: 00 Yes 8mg 8 mg, Oral, BID, First dose on Thu05/27/22 at 2000, Until Discontinu ed, Routine [facility] timolol (TIMOPTIC) 0.5 % ophthalmic solution 1 Drop 05-28 02:00: 00 Yes 1[drp] 1 Drop, Both Eyes, BID, First dose on Thu05/27/22 at 2000, Until Discontinu ed [facility] amoxicillin -clavulanat e (AUGMENTIN) 875-125 mg per tablet 05-28 00:00: 00 06-02 05:59 :00 No [id number] 1{tbl} Take 1 tablet by mouth in the morning and 1 tablet in the evening. Do all this for 4 days. [facility] risperiDONE (RISPERDAL) tablet 4 mg 05-27 23:00: 00 Yes 4mg 4 mg, Oral, QPM, First dose on Thu05/27/22 at 1700, Until Discontinu ed, Routine [facility] latanoprost (XALATAN) 0.005 % ophthalmic drops 1 Drop 05-27 23:00: 00 Yes 1[drp] 1 Drop, Both Eyes, QPM, First dose on Thu05/27/22 at 1700, Until Discontinu ed, Routine [facility] piperacilli n-tazobacta m (ZOSYN) [...] Abdominal< br>Duratio n of Therapy: 7 days [facility] lactulose (CEPHULAC) solution 30 mL 05-27 15:45: 00 05-27 16:31 :00 No 30mL 30 mL, Oral, ONCE, 1 dose, On Thu05/27/22 at 0945, Routine [facility] enoxaparin (LOVENOX) injection 40 mg 05-27 15:00: 00 Yes 40mg 40 mg, Subcutaneo us, DAILY, First dose on Thu05/27/22 at 0900, Until Discontinu ed, Routine [facility] aspirin 81 mg EC tablet 05-27 11:23: 35 05-27 00:00 :00 No 81mg Take 81 mg by mouth daily. [facility] piperacilli n-tazobacta m (ZOSYN) 3.375 g in NaCl 0.9% (NS) 100 mL MINI-BAG 05-27 09:30: 00 05-27 10:36 :00 No 3.375g 3.375 g, IV Piggyback, ONCE, 1 dose, On Thu05/27/22 at 0330, Administer over 30 Minutes, 100 mL
Reas on for Anti-Infec tive: Documented Infection< br>Documen nichole Infection Site: Abdominal< br>Duratio n of Therapy: 7 days [facility] NaCl 0.9% (NS) IV infusion 1,000 mL 05-27 04:15: 00 05-27 12:39 :00 No 1000mL at 125 mL/hr, IV Infusion, ONCE, 1 dose, On Thu05/26/22 at 2215, Routine [facility] ondansetron (ZOFRAN (PF)) injection 4 mg 05-27 03:29: 20 Yes 4mg 4 mg, Slow IV Push, Q6HPRN, Starting on Thu05/26/22 at 2129, Until Discontinu ed, Routine, Nausea and Vomiting (N/V) [facility] traMADoL (ULTRAM) tablet 50 mg 05-27 03:29: 11 05-29 03:28 :11 No 50mg 50 mg, Oral, Q8HPRN, Starting on Thu05/26/22 at 2128, Until Thu05/28/22 at 2127, Routine, Pain (scale 4-6) [facility] acetaminoph en (TYLENOL) tablet 650 mg 05-27 03:29: 08 Yes 650mg 650 mg, Oral, Q6HPRN, Starting on Thu05/26/22 at 2128, Until Discontinu ed, Routine, Pain (scale 1-3) [facility] cefTRIAXone (ROCEPHIN) 1,000 mg in NaCl 0.9% (NS) 100 mL MINI-BAG 05-27 02:45: 00 05-27 03:18 :00 No 1000mg 1,000 mg, IV Piggyback, ONCE, 1 dose, On Thu05/26/22 at 2045, Administer over 30 Minutes, 100 mL
Reas on for Anti-Infec tive: Documented Infection< br>Documen nichole Infection Site: Abdominal< br>Duratio n of Therapy: 7 days [facility] ondansetron (ZOFRAN (PF)) injection 4 mg 05-27 00:15: 00 05-27 00:10 :00 No 4mg 4 mg, Slow IV Push, ONCE, 1 dose, On Thu05/26/22 at 1815, ROCKY [facility] ciprofloxac in HCl (CIPRO) tablet 500 mg 05-06 03:00: 00 05-11 02:59 :00 No 500mg 500 mg, Oral, Q12H ABX, 10 doses, First dose on Thu05/05/22 at 2100, Last dose on Thu05/10/22 at 0900, ROCKY
Re ason for Anti-Infec tive: Documented Infection< br>Documen nichole Infection Site: Abdominal< br>Duratio n of Therapy: 7 days [facility] metroNIDAZO LE (FLAGYL) tablet 500 mg 05-06 02:00: 05-11 01:59 :00 No 500mg 500 mg, Oral, Q12H, 10 doses, First dose on 05/05/22 at 2000, Last dose on 05/10/22 at 0800, Routine
Reason for Anti-Infec tive: Documented Infection< br>Documen nichole Infection Site: Abdominal< br>Duratio n of Therapy: 7 days [facility] lactobacill us acidophilus 05-06 00:00: 00 Yes .5mg Take 1 tablet by mouth in the morning. [facility] hydroCHLORO thiazide 12.5 mg tablet 05-06 00:00: 00 05-26 00:00 :00 No 12.5mg Take 1 tablet by mouth in the morning. [facility] Vitamin E (E-PHEROL) 400 unit Tab 05-05 18:25: 31 Yes 2{tbl} Take 2 tablets by mouth daily. [facility] aspirin 81 mg EC tablet 05-05 18:25: 31 Yes 81mg Take 81 mg by mouth daily. [facility] latanoprost (XALATAN) 0.005 % ophthalmic drops 05-05 18:25: 31 Yes 1[drp] 1 Drop every evening. [facility] brimonidine (ALPHAGAN) 0.2 % ophthalmic solution 05-05 18:25: 31 Yes 1[drp] 1 Drop 3 (three) times daily. [facility] Fish Oil-DHA-EPA 1,200-144-2 16 mg Cap 05-05 18:25: 31 Yes 1{capsu le} Take 1 capsule by mouth daily. [facility] melatonin 10 mg Tab 05-05 18:25: 31 Yes 10mg Take 10 mg by mouth at bedtime. [facility] acetaminoph en 500 mg tablet 05-05 18:25: 31 Yes 1000mg Take 1,000 mg by mouth at bedtime. [facility] diphenhydrA MINE (BENADRYL) tablet 25 mg 05-05 10:43: 00 Yes 25mg 25 mg, Oral, Q6HPRN, Starting on 05/05/22 at 0443, Until Discontinu ed, Routine, Itching [facility] ciprofloxac in HCl 500 mg tablet 05-05 00:00: 00 05-26 00:00 :00 No 500mg Take 1 tablet by mouth every 12 (twelve) hours. [facility] metroNIDAZO LE 500 mg tablet 05-05 00:00: 00 05-26 00:00 :00 No 500mg Take 1 tablet by mouth every 12 (twelve) hours. [facility] diphenhydrA MINE (BENADRYL) tablet 25 mg 05-04 16:15: 00 05-04 16:25 :00 No 25mg 25 mg, Oral, ONCE, 1 dose, On 05/04/22 at 1015, Routine [facility] simvastatin (ZOCOR) tablet 40 mg 05-04 03:00: 00 Yes 40mg 40 mg, Oral, QHS, First dose on 05/03/22 at 2100, Until Discontinu ed, Routine [facility] risperiDONE (RISPERDAL) tablet 2 mg 05-03 23:00: 00 Yes 2mg 2 mg, Oral, QPM, First dose (after last modificati on) on 05/03/22 at 1700, Until Discontinu ed, Routine [facility] latanoprost (XALATAN) 0.005 % ophthalmic drops 1 Drop 05-03 23:00: 00 Yes 1[drp] 1 Drop, Both Eyes, QPM, First dose on 05/03/22 at 1700, Until Discontinu ed, Routine [facility] lactobacill us acidophilus tablet 0.5 mg 05-03 18:00: 00 Yes .5mg 0.5 mg, Oral, DAILY, First dose on 05/03/22 at 1200, Until Discontinu ed, Routine [facility] enoxaparin (LOVENOX) injection 40 mg 05-03 15:00: 00 Yes 40mg 40 mg, Subcutaneo us, DAILY, First dose on 05/03/22 at 0900, Until Discontinu ed, Routine [facility] tamsulosin (FLOMAX) capsule 0.4 mg 05-03 15:00: 00 Yes .4mg 0.4 mg, Oral, DAILY, First dose on 05/03/22 at 0900, Until Discontinu ed, Routine [facility] omeprazole (PRILOSEC) capsule 20 mg 05-03 15:00: 00 Yes 20mg 20 mg, Oral, DAILY, First dose on 05/03/22 at 0900, Until Discontinu ed, Routine [facility] hydroCHLORO thiazide (ESIDRIX) tablet 12.5 mg 05-03 15:00: 00 Yes 12.5mg 12.5 mg, Oral, DAILY, First dose on 05/03/22 at 0900, Until Discontinu ed [facility] aspirin EC tablet 81 mg 05-03 15:00: 00 Yes 81mg 81 mg, Oral, DAILY, First dose on 05/03/22 at 0900, Until Discontinu ed, Routine [facility] brimonidine (ALPHAGAN) 0.2 % ophthalmic solution 1 Drop 05-03 14:00: 00 Yes 1[drp] 1 Drop, Both Eyes, TID, First dose on 05/03/22 at 0800, Until Discontinu ed, Routine [facility] metroNIDAZO LE in NaCl (iso-os) (FLAGYL I.V.) [...] br>Duratio n of Therapy: 7 days [facility] ciprofloxac in in 5 % dextrose (CIPRO) piggyback 400 mg 05-03 06:15: 00 05-05 20:29 :12 No 400mg 400 mg, IV Piggyback, at 200 mL/hr Administer over 60 Minutes, Q12H ABX, First dose on Thu05/03/22 at 0015, Until Discontinu ed, Routine
Reason for Anti-Infec tive: Documented Infection< br>Docu mented Infection Site: Abdominal< br>Duratio n of Therapy: 7 days [facility] haloperidol lactate (HALDOL) injection 2.5 mg 05-03 05:53: 13 Yes 2.5mg 2.5 mg, Slow IV Push, PRN, 2 doses, Starting on Thu05/02/22 at 2353, Until Discontinu ed, Routine, Psychosis [facility] galantamine (REMINYL) tablet 8 mg 05-03 05:15: 00 Yes 8mg 8 mg, Oral, BID, First dose on Thu05/02/22 at 2315, Until Discontinu ed, Routine
Reason for non-formul ramsey use: PATIENT CURRENTLY TAKING NONFORMULA RY PRODUCT [facility] melatonin (MELATIN) tablet 9 mg 05-03 05:15: 00 Yes 9mg 9 mg, Oral, QHS, First dose (after last modificati on) on Thu05/02/22 at 2315, Until Discontinu ed [facility] risperiDONE (RISPERDAL) tablet 4 mg 05-03 05:15: 00 05-03 05:26 :23 No 4mg 4 mg, Oral, QPM, First dose (after last modificati on) on Thu05/02/22 at 2315, Until Discontinu ed, Routine [facility] ondansetron (ZOFRAN (PF)) injection 4 mg 05-03 04:53: 40 Yes 4mg 4 mg, Slow IV Push, Q6HPRN, Starting on Thu05/02/22 at 2253, Until Discontinu ed, Routine, Nausea and Vomiting (N/V) [facility] traMADoL (ULTRAM) tablet 50 mg 05-03 04:53: 31 05-05 04:52 :31 No 50mg 50 mg, Oral, Q8HPRN, Starting on Thu05/02/22 at 2253, Until 05/04/22 at 2252, Routine, Pain (scale 4-6) [facility] acetaminoph en (TYLENOL) tablet 650 mg 05-03 04:53: 29 Yes 650mg 650 mg, Oral, Q6HPRN, Starting on Thu05/02/22 at 2253, Until Discontinu ed, Routine, Pain (scale 1-3) [facility] iopamidol (ISOVUE 370-500 mL) injection 100 mL 05-03 02:45: 00 05-03 01:49 :00 No [id number] 100mL 100 mL, Intravenou s, ONCE, 1 dose, On Thu05/02/22 at 2045, Routine [facility] NaCl 0.9% (NS) bolus infusion 1,000 mL 05-03 01:45: 00 05-03 00:44 :00 No 1000mL at 999 mL/hr, 1,000 mL, IV Piggyback, ONCE, 1 dose, On Thu05/02/22 at 1945, STAT [facility] hydroCHLORO thiazide 12.5 mg capsule 05-02 22:53: 50 05-02 00:00 :00 No 12.5mg Take 12.5 mg by mouth daily. [facility] amoxicillin 500 mg tablet 04-18 00:00: 00 04-29 05:59 :00 No [id number] 500mg Take 1 tablet by mouth in the morning and 1 tablet in the evening. Do all this for 10 days. [facility] OMEPRAZOLE 20 mg capsule 10-24 00:00: 00 Yes [id number] Take 1 capsule by mouth once daily [facility] SIMVASTATIN 40 mg tablet 09-24 00:00: 00 01-29 00:00 :00 No [id number] TAKE 1 TABLET BY MOUTH ONCE DAILY AT BEDTIME [facility] galantamine 8 mg tablet 07-31 00:00: 00 Yes [id number] 8mg Take 1 tablet by mouth 2 (two) times daily. [facility] tamsulosin (FLOMAX) 0.4 mg 24 hr capsule 07-29 00:00: 00 08-27 00:00 :00 No [id number] .4mg Take 1 capsule by mouth daily. [facility] hydroCHLORO thiazide 12.5 mg capsule 2020-04 15:34: 14 Yes 12.5mg Take 12.5 mg by mouth daily. [facility] Vitamin E (E-PHEROL) 400 unit Tab 08-28 14:21: 44 Yes 1{tbl} Take 1 tablet by mouth daily. [facility] aspirin 81 mg EC tablet 08-28 14:21: 44 Yes 81mg Take 81 mg by mouth daily. [facility] latanoprost (XALATAN) 0.005 % ophthalmic drops 08-28 14:21: 44 Yes 1[drp] 1 Drop every evening. [facility] galantamine 12 mg tablet 08-28 00:00: 00 05-02 00:00 :00 No [id number] 12mg Take 1 tablet by mouth 2 (two) times daily. [facility] risperiDONE (RISPERDAL) 2 mg tablet 2019-04 00:00: 00 Yes [id number] 4mg Take 2 tablets by mouth every evening. [facility] brimonidine (ALPHAGAN) 0.2 % ophthalmic solution 2017-04 13:40: 32 Yes 1[drp] 1 Drop 3 (three) times daily. [facility] Fish Oil-DHA-EPA 1,200-144-2 16 mg Cap 2017-04 13:40: 32 Yes 1{capsu le} Take 1 capsule by mouth daily. [facility] Immunizations Ordered Immunization Name Filled Immunization Name Date Status Comments Source Influenza High Dose 2021-12-27 00:00:00 Completed [facility] Influenza High Dose 2021-12-27 00:00:00 Completed [facility] Influenza High Dose 2021-12-27 00:00:00 Completed [facility] Influenza High Dose 2021-12-27 00:00:00 Completed [facility] Influenza High Dose 2021-12-27 00:00:00 Completed [facility] Influenza High Dose 2021-12-27 00:00:00 Completed [facility] Influenza High Dose 2021-12-27 00:00:00 Completed [facility] Influenza High Dose 2021-12-27 00:00:00 Completed [facility] Influenza High Dose 2021-12-27 00:00:00 Completed [facility] Influenza High Dose 2021-12-27 00:00:00 Completed [facility] Influenza High Dose 2021-12-27 00:00:00 Completed [facility] Influenza High Dose 2021-12-27 00:00:00 Completed [facility] Influenza High Dose 2021-12-27 00:00:00 Completed [facility] Influenza High Dose 2021-12-27 00:00:00 Completed [facility] Influenza High Dose 2021-12-27 00:00:00 Completed [facility] Influenza High Dose 2021-12-27 00:00:00 Completed [facility] Influenza High Dose 2021-12-27 00:00:00 Completed [facility] Influenza High Dose 2021-12-27 00:00:00 Completed [facility] Influenza High Dose 2021-12-27 00:00:00 Completed [facility] Influenza High Dose 2021-12-27 00:00:00 Completed [facility] Influenza High Dose 2021-12-27 00:00:00 Completed [facility] Influenza High Dose 2021-12-27 00:00:00 Completed [facility] Influenza High Dose 2021-12-27 00:00:00 Completed [facility] Influenza High Dose 2021-12-27 00:00:00 Completed [facility] Influenza High Dose 2021-12-27 00:00:00 Completed [facility] Influenza High Dose 2021-12-27 00:00:00 Completed [facility] Influenza Virus Vaccine 2021-12-18 00:00:00 Completed [facility] Influenza Virus Vaccine 2021-12-18 00:00:00 Completed [facility] Influenza Virus Vaccine 2021-12-18 00:00:00 Completed [facility] Influenza Virus Vaccine 2021-12-18 00:00:00 Completed [facility] Influenza Virus Vaccine 2021-12-18 00:00:00 Completed [facility] Influenza Virus Vaccine 2021-12-18 00:00:00 Completed [facility] Influenza Virus Vaccine 2021-12-18 00:00:00 Completed [facility] Influenza Virus Vaccine 2021-12-18 00:00:00 Completed [facility] Influenza Virus Vaccine 2021-12-18 00:00:00 Completed [facility] Influenza Virus Vaccine 2021-12-18 00:00:00 Completed [facility] SARS-COV-2 COVID-19 VACCINE - (MODERNA) 2021-09-20 00:00:00 Completed [facility] SARS-COV-2 COVID-19 VACCINE - (MODERNA) 2021-09-20 00:00:00 Completed [facility] SARS-COV-2 COVID-19 VACCINE - (MODERNA) 2021-09-20 00:00:00 Completed [facility] SARS-COV-2 COVID-19 VACCINE - (MODERNA) 2021-09-20 00:00:00 Completed [facility] SARS-COV-2 COVID-19 VACCINE - (MODERNA) 2021-09-20 00:00:00 Completed [facility] SARS-COV-2 COVID-19 VACCINE - (MODERNA) 2021-09-20 00:00:00 Completed [facility] SARS-COV-2 COVID-19 VACCINE - (MODERNA) 2021-09-20 00:00:00 Completed [facility] SARS-COV-2 COVID-19 VACCINE - (MODERNA) 2021-09-20 00:00:00 Completed [facility] SARS-COV-2 COVID-19 VACCINE - (MODERNA) 2021-09-20 00:00:00 Completed [facility] SARS-COV-2 COVID-19 VACCINE - (MODERNA) 2021-09-20 00:00:00 Completed [facility] SARS-COV-2 COVID-19 VACCINE - (MODERNA) 2021-04-02 00:00:00 Completed [facility] SARS-COV-2 COVID-19 VACCINE - (MODERNA) 2021-04-02 00:00:00 Completed [facility] SARS-COV-2 COVID-19 VACCINE - (MODERNA) 2021-04-02 00:00:00 Completed [facility] SARS-COV-2 COVID-19 VACCINE - (MODERNA) 2021-04-02 00:00:00 Completed [facility] SARS-COV-2 COVID-19 VACCINE - (MODERNA) 2021-04-02 00:00:00 Completed [facility] SARS-COV-2 COVID-19 VACCINE - (MODERNA) 2021-04-02 00:00:00 Completed [facility] SARS-COV-2 COVID-19 VACCINE - (MODERNA) 2021-04-02 00:00:00 Completed [facility] SARS-COV-2 COVID-19 VACCINE - (MODERNA) 2021-04-02 00:00:00 Completed [facility] SARS-COV-2 COVID-19 VACCINE - (MODERNA) 2021-04-02 00:00:00 Completed [facility] SARS-COV-2 COVID-19 VACCINE - (MODERNA) 2021-04-02 00:00:00 Completed [facility] Influenza High Dose Quad 2020-12-27 00:00:00 Completed [facility] Influenza High Dose Quad 2020-12-27 00:00:00 Completed [facility] Influenza High Dose Quad 2020-12-27 00:00:00 Completed [facility] Influenza High Dose Quad 2020-12-27 00:00:00 Completed [facility] Influenza High Dose Quad 2020-12-27 00:00:00 Completed [facility] Influenza High Dose Quad 2020-12-27 00:00:00 [facility] [facility] Dose Quad 2020-12-27 00:00:[address] [facility] Influenza High Dose Quad 2020-12-27 00:00:00 Completed [facility] Influenza High Dose Quad 2020-12-27 00:00:00 Completed [facility] Influenza High Dose Quad 2020-12-27 00:00:00 Completed [facility] SARS-COV-2 COVID-19 MODERNA 12+ YRS VACCINE 2020-06-07 00:00:00 Completed [facility] SARS-COV-2 COVID-19 MODERNA 12+ YRS VACCINE 2020-06-07 00:00:00 Completed [facility] SARS-COV-2 COVID-19 MODERNA 12+ YRS VACCINE 2020-06-07 00:00:00 Completed [facility] SARS-COV-2 COVID-19 MODERNA 12+ YRS VACCINE 2020-06-07 00:00:00 Completed [facility] SARS-COV-2 COVID-19 MODERNA 12+ YRS VACCINE 2020-06-07 00:00:00 Completed [facility] SARS-COV-2 COVID-19 MODERNA 12+ YRS VACCINE 2020-06-07 00:00:00 Completed [facility] SARS-COV-2 COVID-19 MODERNA 12+ YRS VACCINE 2020-06-07 00:00:00 Completed [facility] SARS-COV-2 COVID-19 MODERNA 12+ YRS VACCINE 2020-06-07 00:00:00 Completed [facility] SARS-COV-2 COVID-19 MODERNA 12+ YRS VACCINE 2020-06-07 00:00:00 Completed [facility] SARS-COV-2 COVID-19 MODERNA 12+ YRS VACCINE 2020-06-07 00:00:00 Completed [facility] SARS-COV-2 COVID-19 MODERNA 12+ YRS VACCINE 2020-06-07 00:00:00 Completed [facility] SARS-COV-2 COVID-19 MODERNA 12+ YRS VACCINE 2020-06-07 00:00:00 Completed [facility] SARS-COV-2 COVID-19 MODERNA 12+ YRS VACCINE 2020-06-07 00:00:00 Completed [facility] SARS-COV-2 COVID-19 MODERNA 12+ YRS VACCINE 2020-06-07 00:00:00 Completed [facility] SARS-COV-2 COVID-19 MODERNA 12+ YRS VACCINE 2020-06-07 00:00:00 Completed [facility] SARS-COV-2 COVID-19 MODERNA 12+ YRS VACCINE 2020-06-07 00:00:00 Completed [facility] SARS-COV-2 COVID-19 MODERNA 12+ YRS VACCINE 2020-06-07 00:00:00 Completed [facility] SARS-COV-2 COVID-19 MODERNA 12+ YRS VACCINE 2020-06-07 00:00:00 Completed [facility] SARS-COV-2 COVID-19 MODERNA 12+ YRS VACCINE 2020-06-07 00:00:00 Completed [facility] SARS-COV-2 COVID-19 MODERNA 12+ YRS VACCINE 2020-06-07 00:00:00 Completed [facility] SARS-COV-2 COVID-19 MODERNA 12+ YRS VACCINE 2020-06-07 00:00:00 Completed [facility] SARS-COV-2 COVID-19 MODERNA 12+ YRS VACCINE 2020-06-07 00:00:00 Completed [facility] SARS-COV-2 COVID-19 MODERNA 12+ YRS VACCINE 2020-06-07 00:00:00 Completed [facility] SARS-COV-2 COVID-19 MODERNA 12+ YRS VACCINE 2020-06-07 00:00:00 Completed [facility] SARS-COV-2 COVID-19 MODERNA 12+ YRS VACCINE 2020-06-07 00:00:00 Completed [facility] SARS-COV-2 COVID-19 MODERNA 12+ YRS VACCINE 2020-06-07 00:00:00 Completed [facility] SARS-COV-2 COVID-19 MODERNA 12+ YRS VACCINE 2020-06-07 00:00:00 Completed [facility] SARS-COV-2 COVID-19 MODERNA 12+ YRS VACCINE 2020-06-07 00:00:00 Completed [facility] SARS-COV-2 COVID-19 MODERNA 12+ YRS VACCINE 2020-06-07 00:00:00 Completed [facility] SARS-COV-2 COVID-19 MODERNA 12+ YRS VACCINE 2020-06-07 00:00:00 Completed [facility] SARS-COV-2 COVID-19 MODERNA 12+ YRS VACCINE 2020-05-10 00:00:00 Completed [facility] SARS-COV-2 COVID-19 MODERNA 12+ YRS VACCINE 2020-05-10 00:00:00 Completed [facility] SARS-COV-2 COVID-19 MODERNA 12+ YRS VACCINE 2020-05-10 00:00:00 Completed [facility] SARS-COV-2 COVID-19 MODERNA 12+ YRS VACCINE 2020-05-10 00:00:00 Completed [facility] SARS-COV-2 COVID-19 MODERNA 12+ YRS VACCINE 2020-05-10 00:00:00 Completed [facility] SARS-COV-2 COVID-19 MODERNA 12+ YRS VACCINE 2020-05-10 00:00:00 Completed [facility] SARS-COV-2 COVID-19 MODERNA 12+ YRS VACCINE 2020-05-10 00:00:00 Completed [facility] SARS-COV-2 COVID-19 MODERNA 12+ YRS VACCINE 2020-05-10 00:00:00 Completed [facility] SARS-COV-2 COVID-19 MODERNA 12+ YRS VACCINE 2020-05-10 00:00:00 Completed [facility] SARS-COV-2 COVID-19 MODERNA 12+ YRS VACCINE 2020-05-10 00:00:00 Completed [facility] SARS-COV-2 COVID-19 MODERNA 12+ YRS VACCINE 2020-05-10 00:00:00 Completed [facility] SARS-COV-2 COVID-19 MODERNA 12+ YRS VACCINE 2020-05-10 00:00:00 Completed [facility] SARS-COV-2 COVID-19 MODERNA 12+ YRS VACCINE 2020-05-10 00:00:00 Completed [facility] SARS-COV-2 COVID-19 MODERNA 12+ YRS VACCINE 2020-05-10 00:00:00 Completed [facility] SARS-COV-2 COVID-19 MODERNA 12+ YRS VACCINE 2020-05-10 00:00:00 Completed [facility] SARS-COV-2 COVID-19 MODERNA 12+ YRS VACCINE 2020-05-10 00:00:00 Completed [facility] SARS-COV-2 COVID-19 MODERNA 12+ YRS VACCINE 2020-05-10 00:00:00 Completed [facility] SARS-COV-2 COVID-19 MODERNA 12+ YRS VACCINE 2020-05-10 00:00:00 Completed [facility] SARS-COV-2 COVID-19 MODERNA 12+ YRS VACCINE 2020-05-10 00:00:00 Completed [facility] SARS-COV-2 COVID-19 MODERNA 12+ YRS VACCINE 2020-05-10 00:00:00 Completed [facility] SARS-COV-2 COVID-19 MODERNA 12+ YRS VACCINE 2020-05-10 00:00:00 Completed [facility] SARS-COV-2 COVID-19 MODERNA 12+ YRS VACCINE 2020-05-10 00:00:00 Completed [facility] SARS-COV-2 COVID-19 MODERNA 12+ YRS VACCINE 2020-05-10 00:00:00 Completed [facility] SARS-COV-2 COVID-19 MODERNA 12+ YRS VACCINE 2020-05-10 00:00:00 Completed [facility] SARS-COV-2 COVID-19 MODERNA 12+ YRS VACCINE 2020-05-10 00:00:00 Completed [facility] SARS-COV-2 COVID-19 MODERNA 12+ YRS VACCINE 2020-05-10 00:00:00 Completed [facility] SARS-COV-2 COVID-19 MODERNA 12+ YRS VACCINE 2020-05-10 00:00:00 Completed [facility] SARS-COV-2 COVID-19 MODERNA 12+ YRS VACCINE 2020-05-10 00:00:00 Completed [facility] SARS-COV-2 COVID-19 MODERNA 12+ YRS VACCINE 2020-05-10 00:00:00 Completed [facility] SARS-COV-2 COVID-19 MODERNA 12+ YRS VACCINE 2020-05-10 00:00:00 Completed [facility] Influenza High Dose Quad 2019-12-09 00:00:00 Completed [facility] Influenza High Dose Quad 2019-12-09 00:00:00 Completed [facility] Influenza High Dose Quad 2019-12-09 00:00:00 Completed [facility] Influenza High Dose Quad 2019-12-09 00:00:00 Completed [facility] Influenza High Dose Quad 2019-12-09 00:00:00 Completed [facility] Influenza High Dose Quad 2019-12-09 00:00:00 Completed [facility] Influenza High Dose Quad 2019-12-09 00:00:00 Completed [facility] Influenza High Dose Quad 2019-12-09 00:00:00 Completed [facility] Influenza High Dose Quad 2019-12-09 00:00:00 Completed [facility] Influenza High Dose Quad 2019-12-09 00:00:00 Completed [facility] Influenza High Dose Quad 2019-12-09 00:00:00 Completed [facility] Influenza High Dose Quad 2019-12-09 00:00:00 Completed [facility] Influenza High Dose Quad 2019-12-09 00:00:00 Completed [facility] Influenza High Dose Quad 2019-12-09 00:00:00 Completed [facility] Influenza High Dose Quad 2019-12-09 00:00:00 Completed [facility] Influenza High Dose Quad 2019-12-09 00:00:00 Completed [facility] Influenza High Dose Quad 2019-12-09 00:00:00 Completed [facility] Influenza High Dose Quad 2019-12-09 00:00:00 Completed [facility] Influenza High Dose Quad 2019-12-09 00:00:00 Completed [facility] Influenza High Dose Quad 2019-12-09 00:00:00 Completed [facility] Influenza High Dose Quad 2019-12-09 00:00:00 Completed [facility] Influenza High Dose Quad 2019-12-09 00:00:00 Completed [facility] Influenza High Dose Quad 2019-12-09 00:00:00 Completed [facility] Influenza High Dose Quad 2019-12-09 00:00:00 Completed [facility] Influenza High Dose Quad 2019-12-09 00:00:00 Completed [facility] Influenza High Dose Quad 2019-12-09 00:00:00 Completed [facility] Influenza High Dose Quad 2019-12-09 00:00:00 Completed [facility] Influenza High Dose Quad 2019-12-09 00:00:00 Completed [facility] Influenza High Dose Quad 2019-12-09 00:00:00 Completed [facility] Influenza High Dose Quad 2019-12-09 00:00:00 Completed [facility] Influenza High Dose 2018-12-24 00:00:00 Completed [facility] Influenza High Dose 2018-12-24 00:00:00 Completed [facility] Influenza High Dose 2018-12-24 00:00:00 Completed [facility] Influenza High Dose 2018-12-24 00:00:00 Completed [facility] Influenza High Dose 2018-12-24 00:00:00 Completed [facility] Influenza High Dose 2018-12-24 00:00:00 Completed [facility] Influenza High Dose 2018-12-24 00:00:00 Completed [facility] Influenza High Dose 2018-12-24 00:00:00 Completed [facility] Influenza High Dose 2018-12-24 00:00:00 Completed [facility] Influenza High Dose 2018-12-24 00:00:00 Completed [facility] Influenza High Dose 2018-12-24 00:00:00 Completed [facility] Influenza High Dose 2018-12-24 00:00:00 Completed [facility] Influenza High Dose 2018-12-24 00:00:00 Completed [facility] Influenza High Dose 2018-12-24 00:00:00 Completed [facility] Influenza High Dose 2018-12-24 00:00:00 Completed [facility] Influenza High Dose 2018-12-24 00:00:00 Completed [facility] Influenza High Dose 2018-12-24 00:00:00 Completed [facility] Influenza High Dose 2018-12-24 00:00:00 Completed [facility] Influenza High Dose 2018-12-24 00:00:00 Completed [facility] Influenza High Dose 2018-12-24 00:00:00 Completed [facility] Influenza High Dose 2018-12-24 00:00:00 Completed [facility] Influenza High Dose 2018-12-24 00:00:00 Completed [facility] Influenza High Dose 2018-12-24 00:00:00 Completed [facility] Influenza High Dose 2018-12-24 00:00:00 Completed [facility] Influenza High Dose 2018-12-24 00:00:00 Completed [facility] Influenza High Dose 2018-12-24 00:00:00 Completed [facility] Influenza High Dose 2018-12-24 00:00:00 Completed [facility] Influenza High Dose 2018-12-24 00:00:00 Completed [facility] Influenza High Dose 2018-12-24 00:00:00 Completed [facility] Influenza High Dose 2018-12-24 00:00:00 Completed [facility] Influenza High Dose 2017-12-24 00:00:00 Completed [facility] Influenza High Dose 2017-12-24 00:00:00 Completed [facility] Influenza High Dose 2017-12-24 00:00:00 Completed [facility] Influenza High Dose 2017-12-24 00:00:00 Completed [facility] Influenza High Dose 2017-12-24 00:00:00 Completed [facility] Influenza High Dose 2017-12-24 00:00:00 Completed [facility] Influenza High Dose 2017-12-24 00:00:00 Completed [facility] Influenza High Dose 2017-12-24 00:00:00 Completed [facility] Influenza High Dose 2017-12-24 00:00:00 Completed [facility] Influenza High Dose 2017-12-24 00:00:00 Completed [facility] Influenza High Dose 2017-12-24 00:00:00 Completed [facility] Influenza High Dose 2017-12-24 00:00:00 Completed [facility] Influenza High Dose 2017-12-24 00:00:00 Completed [facility] Influenza High Dose 2017-12-24 00:00:00 Completed [facility] Influenza High Dose 2017-12-24 00:00:00 Completed [facility] Influenza High Dose 2017-12-24 00:00:00 Completed [facility] Influenza High Dose 2017-12-24 00:00:00 Completed [facility] Influenza High Dose 2017-12-24 00:00:00 Completed [facility] Influenza High Dose 2017-12-24 00:00:00 Completed [facility] Influenza High Dose 2017-12-24 00:00:00 Completed [facility] Influenza High Dose 2017-12-24 00:00:00 Completed [facility] Influenza High Dose 2017-12-24 00:00:00 Completed [facility] Influenza High Dose 2017-12-24 00:00:00 Completed [facility] Influenza High Dose 2017-12-24 00:00:00 Completed [facility] Influenza High Dose 2017-12-24 00:00:00 Completed [facility] Influenza High Dose 2017-12-24 00:00:00 Completed [facility] Influenza High Dose 2017-12-24 00:00:00 Completed [facility] Influenza High Dose 2017-12-24 00:00:00 Completed [facility] Influenza High Dose 2017-12-24 00:00:00 Completed [facility] Influenza High Dose 2017-12-24 00:00:00 Completed [facility] TDAP 2017-04-05 00:00:00 Completed [facility] TDAP 2017-04-05 00:00:00 Completed [facility] TDAP 2017-04-05 00:00:00 Completed [facility] TDAP 2017-04-05 00:00:00 Completed [facility] TDAP 2017-04-05 00:00:00 Completed [facility] TDAP 2017-04-05 00:00:00 Completed [facility] TDAP 2017-04-05 00:00:00 Completed [facility] TDAP 2017-04-05 00:00:00 Completed [facility] TDAP 2017-04-05 00:00:00 Completed [facility] TDAP 2017-04-05 00:00:00 Completed [facility] TDAP 2017-04-05 00:00:00 Completed [facility] TDAP 2017-04-05 00:00:00 Completed [facility] TDAP 2017-04-05 00:00:00 Completed [facility] TDAP 2017-04-05 00:00:00 Completed [facility] TDAP 2017-04-05 00:00:00 Completed [facility] TDAP 2017-04-05 00:00:00 Completed [facility] TDAP 2017-04-05 00:00:00 Completed [facility] TDAP 2017-04-05 00:00:00 Completed [facility] TDAP 2017-04-05 00:00:00 Completed [facility] TDAP 2017-04-05 00:00:00 Completed [facility] TDAP 2017-04-05 00:00:00 Completed [facility] TDAP 2017-04-05 00:00:00 Completed [facility] TDAP 2017-04-05 00:00:00 Completed [facility] TDAP 2017-04-05 00:00:00 Completed [facility] TDAP 2017-04-05 00:00:00 Completed [facility] TDAP 2017-04-05 00:00:00 Completed [facility] TDAP 2017-04-05 00:00:00 Completed [facility] TDAP 2017-04-05 00:00:00 Completed [facility] TDAP 2017-04-05 00:00:00 Completed [facility] TDAP 2017-04-05 00:00:00 Completed [facility] TDAP Unknown Completed [facility] Influenza High Dose Unknown Completed [facility] Influenza High Dose Unknown Completed [facility] SARS-COV-2 COVID-19 MODERNA 12+ YRS VACCINE Unknown Completed [facility] SARS-COV-2 COVID-19 MODERNA 12+ YRS VACCINE Unknown Completed [facility] Influenza High Dose Quad Unknown Completed [facility] Influenza High Dose Unknown Completed [facility] SARS-COV-2 COVID-19 VACCINE - (MODERNA) Unknown [facility] SARS-COV-2 COVID-19 VACCINE - (MODERNA) Unknown Com[facility] Influenza High Dose Quad Unknown Completed [facility] Influenza Virus Vaccine Unknown Completed [facility] TDAP Unknown Completed [facility] Influenza High Dose Unknown Completed [facility] Influenza High Dose Unknown Completed [facility] SARS-COV-2 COVID-19 MODERNA 12+ YRS VACCINE Unknown Completed [facility] SARS-COV-2 COVID-19 MODERNA 12+ YRS VACCINE Unknown Completed [facility] Influenza High Dose Quad Unknown Completed [facility] Influenza High Dose Unknown Completed [facility] SARS-COV-2 COVID-19 VACCINE - (MODERNA) Unknown Completed [facility] SARS-COV-2 COVID-19 VACCINE - (MODERNA) Unknown Completed [facility] Influenza High Dose Quad Unknown Completed [facility] Influenza Virus Vaccine Unknown Completed [facility] TDAP Unknown Completed [facility] Influenza High Dose Unknown Completed [facility] Influenza High Dose Unknown Completed [facility] SARS-COV-2 COVID-19 MODERNA 12+ YRS VACCINE Unknown Completed [facility] SARS-COV-2 COVID-19 MODERNA 12+ YRS VACCINE Unknown Completed [facility] Influenza High Dose Quad Unknown Completed [facility] Influenza High Dose Unknown Completed [facility] SARS-COV-2 COVID-19 VACCINE - (MODERNA) Unknown Completed [facility] SARS-COV-2 COVID-19 VACCINE - (MODERNA) Unknown Completed [facility] Influenza High Dose Quad Unknown Completed [facility] Influenza Virus Vaccine Unknown Completed [facility] TDAP Unknown Completed [facility] Influenza High Dose Unknown Completed [facility] Influenza High Dose Unknown Completed [facility] SARS-COV-2 COVID-19 MODERNA 12+ YRS VACCINE Unknown Completed [facility] SARS-COV-2 COVID-19 MODERNA 12+ YRS VACCINE Unknown Completed [facility] Influenza High Dose Quad Unknown Completed [facility] Influenza High Dose Unknown Completed [facility] SARS-COV-2 COVID-19 VACCINE - (MODERNA) Unknown Completed [facility] SARS-COV-2 COVID-19 VACCINE - (MODERNA) Unknown Completed [facility] Influenza High Dose Quad Unknown Completed [facility] Influenza Virus Vaccine Unknown Completed [facility] Remdesivir Unknown Completed [facility] Remdesivir Unknown Completed [facility] Remdesivir Unknown Completed [facility] TDAP Unknown Completed [facility] Influenza High Dose Unknown Completed [facility] Influenza High Dose Unknown Completed [facility] SARS-COV-2 COVID-19 MODERNA 12+ YRS VACCINE Unknown Completed [facility] SARS-COV-2 COVID-19 MODERNA 12+ YRS VACCINE Unknown Completed [facility] Influenza High Dose Quad Unknown Completed [facility] Influenza High Dose Unknown Completed [facility] SARS-COV-2 COVID-19 VACCINE - (MODERNA) Unknown Completed [facility] SARS-COV-2 COVID-19 VACCINE - (MODERNA) Unknown Completed [facility] Influenza High Dose Quad Unknown Completed [facility] Influenza Virus Vaccine Unknown Completed [facility] Remdesivir Unknown Completed [facility] Remdesivir Unknown Completed [facility] Remdesivir Unknown Completed [facility] TDAP Unknown Completed [facility] Influenza High Dose Unknown Completed [facility] Influenza High Dose Unknown Completed [facility] SARS-COV-2 COVID-19 MODERNA 12+ YRS VACCINE Unknown Completed [facility] SARS-COV-2 COVID-19 MODERNA 12+ YRS VACCINE Unknown Completed [facility] Influenza High Dose Quad Unknown Completed [facility] Influenza High Dose Unknown Completed [facility] SARS-COV-2 COVID-19 VACCINE - (MODERNA) Unknown Completed [facility] SARS-COV-2 COVID-19 VACCINE - (MODERNA) Unknown Completed [facility] Influenza High Dose Quad Unknown Completed [facility] Influenza Virus Vaccine Unknown Completed [facility] Remdesivir Unknown [facility]pleted [facility] Remdesivir Unknown Completed [facility] Remdesivir Unknown Completed [facility] TDAP Unknown Completed [facility] Influenza High Dose Unknown Completed [facility] Influenza High Dose Unknown Completed [facility] SARS-COV-2 COVID-19 MODERNA 12+ YRS VACCINE Unknown Completed [facility] SARS-COV-2 COVID-19 MODERNA 12+ YRS VACCINE Unknown Completed [facility] Influenza High Dose Quad Unknown Completed [facility] Influenza High Dose Unknown Completed [facility] SARS-COV-2 COVID-19 VACCINE - (MODERNA) Unknown Completed [facility] SARS-COV-2 COVID-19 VACCINE - (MODERNA) Unknown Completed [facility] Influenza High Dose Quad Unknown Completed [facility] Influenza Virus Vaccine Unknown Completed [facility] Remdesivir Unknown Com[facility] Remdes[facility] Remdesivir Unknown Completed [facility] Vital Signs Vital Name Observation Time Observation Value Lindsey higgins Systolic blood pressure 2023-03-02 01:30:00 96 mm[Hg] [facility] Diastolic blood pressure 2023-03-02 01:30:00 52 mm[Hg] [facility] Heart rate 2023-03-02 01:30:00 68 /min [facility] Body temperature 2023-03-02 01:30:00 36.11 N[facility] Respiratory rate 2023-03-02 01:30:00 8 /min [facility] Oxygen saturation in Arterial blood by Pulse oximetry 2023-03-02 01:30:00 98 /min [facility] Body height 2023 21:02:00 182.9 cm [facility] Body weight 2023 21:02:00 74.39 kg [facility] BMI 2023 21:02:00 22.24 kg/m2 [facility] Systolic blood pressure 2023-02-24 21:44:00 99 mm[Hg] [facility] Diastolic blood pressure 2023-02-24 21:44:00 55 mm[Hg] [facility] Heart rate 2023-02-24 21:44:00 75 /min [facility] Body temperature 2023-02-24 21:44:00 36.78 [facility] Respiratory rate 2023-02-24 21:44:00 16 /min [facility] Body height 2023-02-24 21:44:00 182.9 cm [facility] Body weight 2023-02-24 21:44:00 74.39 kg [facility] BMI 2023-02-24 21:44:00 22.24 kg/m2 [facility] Oxygen saturation in Arterial blood by Pulse oximetry 2023-02-24 21:44:00 98 /min [facility] Systolic blood pressure 2023-02-06 16:00:00 109 mm[Hg] [facility] Diastolic blood pressure 2023-02-06 16:00:00 75 mm[Hg] [facility] Heart rate 2023-02-06 16:00:00 80 /min [facility] Body temperature 2023-02-06 16:00:00 36.28 Nita [facility] Respiratory rate 2023-02-06 16:00:00 17 /min [facility] Oxygen saturation in Arterial blood by Pulse oximetry 2023-02-06 16:00:00 96 /min [facility] Body weight 2023-02-06 08:22:00 74.481 kg [facility] BMI 2023-02-06 08:22:00 22.27 kg/m2 [facility] Body height 2023-02-02 21:14:00 182.9 cm [facility] Systolic blood pressure 2023-01-29 16:38:00 108 mm[Hg] [facility] Diastolic blood pressure 2023-01-29 16:38:00 48 mm[Hg] [facility] Heart rate 2023-01-29 16:38:00 66 /min [facility] Body temperature 2023-01-29 16:38:00 37.06 Nita [facility] Oxygen saturation in Arterial blood by Pulse oximetry 2023-01-29 16:38:00 95 /min [facility] Respiratory rate 2023-01-29 09:17:00 16 /min [facility] Body weight 2023-01-29 09:17:00 73.982 kg [facility] BMI 2023-01-29 09:17:00 22.12 kg/m2 [facility] Body height 2023-01-25 23:25:00 182.9 cm [facility] Systolic blood pressure 2023-01-20 22:00:00 123 mm[Hg] [facility] Diastolic blood pressure 2023-01-20 22:00:00 80 mm[Hg] [facility] Heart rate 2023-01-20 22:00:00 82 /min [facility] Body temperature 2023-01-20 22:00:00 36.89 Nita [facility] Respiratory rate 2023-01-20 22:00:00 16 /min [facility] Oxygen saturation in Arterial blood by Pulse oximetry 2023-01-20 22:00:00 97 /min [facility] Body height 2023-01-20 19:16:00 167.6 cm [facility] Body weight 2023-01-20 19:16:00 80 kg [facility] BMI 2023-01-20 19:16:00 28.47 kg/m2 [facility] Systolic blood pressure 2022-12-01 16:54:00 125 mm[Hg] [facility] Diastolic blood pressure 2022-12-01 16:54:00 79 mm[Hg] [facility] Heart rate 2022-12-01 16:54:00 94 /min [facility] Body temperature 2022-12-01 16:54:00 36.56 Nita [facility] Respiratory rate 2022-12-01 16:54:00 18 /min [facility] Oxygen saturation in Arterial blood by Pulse oximetry 2022-12-01 16:54:00 94 /min [facility] Body weight 2022-12-01 09:25:00 70.988 kg [facility] BMI 2022-12-01 09:25:00 21.23 kg/m2 [facility] Body height 2022-11-30 01:41:00 182.9 cm [facility] Systolic blood pressure 2022-11-26 22:00:00 126 mm[Hg] [facility] Diastolic blood pressure 2022-11-26 22:00:00 64 mm[Hg] [facility] Heart rate 2022-11-26 22:00:00 80 /min [facility] Oxygen saturation in Arterial blood by Pulse oximetry 2022-11-26 22:00:00 97 /min [facility] Respiratory rate 2022-11-26 21:00:00 18 /min [facility] Body temperature 2022-11-26 19:03:00 36.5 Nita [facility] Body height 2022-11-26 19:03:00 188 cm [facility] Body weight 2022-11-26 19:03:00 95.255 kg [facility] BMI 2022-11-26 19:03:00 26.96 kg/m2 [facility] Body temperature 2022-10-30 17:00:00 36.94 Nita [facility] Heart rate 2022-10-30 16:32:00 93 /min [facility] Respiratory rate 2022-10-30 16:32:00 18 /min [facility] Oxygen saturation in Arterial blood by Pulse oximetry 2022-10-30 16:32:00 97 /min [facility] Systolic blood pressure 2022-10-30 16:00:00 114 mm[Hg] [facility] Diastolic blood pressure 2022-10-30 16:00:00 87 mm[Hg] [facility] Body weight 2022-10-29 21:00:00 70.988 kg [facility] BMI 2022-10-29 21:00:00 22.46 kg/m2 [facility] Body height 2022-10-28 03:11:00 177.8 cm [facility] Systolic blood pressure 2022-08-27 19:48:00 97 mm[Hg] [facility] Diastolic blood pressure 2022-08-27 19:48:00 66 mm[Hg] [facility] Heart rate 2022-08-27 19:48:00 78 /min [facility] Respiratory rate 2022-08-27 19:48:00 18 /min [facility] Body height 2022-08-27 19:48:00 182.9 cm [facility] Body weight 2022-08-27 19:48:00 70.761 kg [facility] BMI 2022-08-27 19:48:00 21.16 kg/m2 [facility] Systolic blood pressure 2022-07-26 16:20:00 103 mm[Hg] [facility] Diastolic blood pressure 2022-07-26 16:20:00 67 mm[Hg] [facility] Heart rate 2022-07-26 16:20:00 94 /min [facility] Body temperature 2022-07-26 16:20:00 36.94 Nita [facility] Respiratory rate 2022-07-26 16:20:00 20 /min [facility] Oxygen saturation in Arterial blood by Pulse oximetry 2022-07-26 16:20:00 94 /min [facility] Body weight 2022-07-26 09:30:00 70.988 kg [facility] BMI 2022-07-26 09:30:00 21.23 kg/m2 [facility] Body height 2022-07-21 02:02:00 182.9 cm [facility] Systolic blood pressure 2022-07-18 19:48:00 111 mm[Hg] [facility] Diastolic blood pressure 2022-07-18 19:48:00 61 mm[Hg] [facility] Heart rate 2022-07-18 19:48:00 69 /min [facility] Body temperature 2022-07-18 19:48:00 36.44 Nita [facility] Respiratory rate 2022-07-18 19:48:00 18 /min [facility] Body height 2022-07-18 19:48:00 185.4 cm [facility] Body weight 2022-07-18 19:48:00 74.39 kg [facility] BMI 2022-07-18 19:48:00 21.64 kg/m2 [facility] Oxygen saturation in Arterial blood by Pulse oximetry 2022-07-18 19:48:00 100 /min [facility] Systolic blood pressure 2022-06-10 20:00:00 140 mm[Hg] [facility] Diastolic blood pressure 2022-06-10 20:00:00 56 mm[Hg] [facility] Heart rate 2022-06-10 20:00:00 81 /min [facility] Body temperature 2022-06-10 20:00:00 36.89 Nita [facility] Respiratory rate 2022-06-10 20:00:00 14 /min [facility] Oxygen saturation in Arterial blood by Pulse oximetry 2022-06-10 20:00:00 100 /min [facility] Body height 2022-06-10 16:20:00 182.9 cm [facility] Body weight 2022-06-10 16:20:00 74.39 kg [facility] BMI 2022-06-10 16:20:00 22.24 kg/m2 [facility] Systolic blood pressure 2022-05-28 17:22:00 112 mm[Hg] [facility] Diastolic blood pressure 2022-05-28 17:22:00 66 mm[Hg] [facility] Heart rate 2022-05-28 17:22:00 83 /min [facility] Body temperature 2022-05-28 17:22:00 36.28 Nita [facility] Respiratory rate 2022-05-28 17:22:00 18 /min [facility] Oxygen saturation in Arterial blood by Pulse oximetry 2022-05-28 17:22:00 98 /min [facility] Body weight 2022-05-28 10:02:00 74.481 kg [facility] BMI 2022-05-28 10:02:00 22.27 kg/m2 [facility] Body height 2022-05-27 04:42:00 182.9 cm [facility] Systolic blood pressure 2022-05-05 22:34:00 102 mm[Hg] [facility] Diastolic blood pressure 2022-05-05 22:34:00 58 mm[Hg] [facility] Heart rate 2022-05-05 22:34:00 79 /min [facility] Body temperature 2022-05-05 22:34:00 36.22 Nita [facility] Respiratory rate 2022-05-05 22:34:00 18 /min [facility] Oxygen saturation in Arterial blood by Pulse oximetry 2022-05-05 22:34:00 94 /min [facility] Body weight 2022-05-05 10:07:00 73.982 kg [facility] BMI 2022-05-05 10:07:00 20.94 kg/m2 [facility] Body height 2022-05-03 04:50:00 188 cm [facility] Systolic blood pressure 2021-12-05 19:40:00 115 mm[Hg] [facility] Diastolic blood pressure 2021-12-05 19:40:00 73 mm[Hg] [facility] Heart rate 2021-12-05 19:40:00 59 /min [facility] Body weight 2021-12-05 19:40:00 77.701 kg [facility] BMI 2021-12-05 19:40:00 23.89 kg/m2 [facility] Oxygen saturation in Arterial blood by Pulse oximetry 2021-12-05 19:40:00 97 /min [facility] Procedures Procedure Date / Time Performed Performing Clinician Source XR ANKLE 3+ VW RIGHT 2023 23:02:00 Joseph Melendez [facility] COMP. METABOLIC PANEL ([id number]) 2023 21:37:00 Joseph Melednez [facility] CBC WITH DIFF 2023 21:37:00 Joseph Melendez [facility] BASIC METABOLIC PANEL (NA, K, CL, CO2, GLUCOSE, BUN, CREATININE, CA) 2023-02-24 21:45:00 Nicanor Lentz [facility] AUTHORIZATION FOR RELEASE OF PHI 2023-02-20 06:01:00 Doctor Unassigned, Calpella [facility] BASIC METABOLIC PANEL (NA, K, CL, CO2, GLUCOSE, BUN, CREATININE, CA) 2023-02-05 08:20:00 Andreina Childs [facility] CBC WITH DIFF 2023-02-05 08:20:00 Andreina Childs [facility] BASIC METABOLIC PANEL (NA, K, CL, CO2, GLUCOSE, BUN, CREATININE, CA) 2023-02-04 09:27:00 Andreina Childs [facility] CBC WITH DIFF 2023-02-04 09:27:00 Andreina Childs [facility] JESSE AURIS SURVEILLANCE BY PCR (INFECTION CONTROL PURPOSES) 2023-02-03 21:48:00 Andreina Childs [facility] URINALYSIS 2023-02-03 14:42:00 Josefina Dasilva [facility] CBC WITH DIFF 2023-02-03 11:25:00 [facility] BASIC METABOLIC PANEL (NA, K, CL, CO2, GLUCOSE, BUN, CREATININE, CA) 2023-02-03 10:19:00 Marlena Rios [facility] PROCALCITONIN 2023-02-03 10:19:00 [facility] XR CHEST 1 VW 2023-02-02 19:00:15 Andreina Uriarte [facility] COMP. METABOLIC PANEL ([id number]) 2023-02-02 16:53:00 Andreina Uriarte [facility] CBC WITH DIFF 2023-02-02 16:53:00 Andreina Uriarte [facility] RAPID INFLUENZA A/B 2023-02-02 16:53:00 Andreina Uriarte [facility] COVID-19 (ID NOW RAPID TESTING) 2023-02-02 16:53:00 Andreina Uriarte [facility] LAB ONLY COVID INTERPRETATION 2023-02-02 16:53:00 Andreina Uriarte [facility] XR CHEST 1 VW 2023-01-28 18:01:19 Mar[facility]ios [facility] BASIC METABOLIC PANEL (NA, K, CL, CO2, GLUCOSE, BUN, CREATININE, CA) 2023-01-27 10:13:00 Andreina Childs [facility] VANCOMYCIN TROUGH 2023-01-27 10:13:00 Angelica Braga [facility] CBC WITH DIFF 2023-01-27 10:13:00 Andreina Childs [facility] WOUND/ASPIRATE OR ABSCESS CULTURE 2023-01-26 18:02:00 Keerthi Solorzano [facility] WOUND CULTURE 2023-01-26 18:02:00 [facility] MSSA SCREEN BY PCR, ARNOLD 2023-01-25 23:19:00 Marques Hines [facility] BLOOD CULTURE SCREEN 2023-01-25 20:41:00 Lavon Soni [facility] COMP. METABOLIC PANEL ([id number]) 2023-01-25 20:41:00 Virginia Soni [facility] SEDIMENTATION RATE 2023-01-25 20:41:00 Marco A Soni [facility] CBC WITH DIFF 2023-01-25 20:41:00 Virginia Soni [facility] LACTIC ACID WHOLE BLOOD 2023-01-25 20:41:00 Virginia Soni [facility] XR ANKLE 3+ VW RIGHT 2023-01-25 20:38:12 Lavon Soni [facility] CONSENT/REFUSAL FOR DIAGNOSIS AND TREATMENT 2023-01-25 20:04:39 Doctor Unassigned, Calpella [facility] EMERGENCY DEPARTMENT DOCUMENTS 2023-01-25 05:01:00 Doctor Unassigned, Calpella [facility] RAPID STREP SCREEN FOR GROUP A 2023-01-20 21:38:00 Virginia Soni [facility] CT HEAD WO CONTRAST 2023-01-20 19:55:01 Hali Soni ra [facility] XR CHEST 1 VW 2023-01-20 19:54:03 Virginia Soni [facility] MAGNESIUM 2023-01-20 19:24:00 [facility] 2023-01-20 19:24:00 [facility] COMP. METABOLIC PANEL ([id number]) 2023-01-20 19:24:00 Virginia Soni [facility] CBC WITH DIFF 2023-01-20 19:24:00 Virginia Soni [facility] RAPID INFLUENZA A/B 2023-01-20 19:24:00 Hali Soni ra [facility] N-TERMINAL PRO-BNP 2023-01-20 19:24:00 Marco A Soni [facility] COVID-19 (ID NOW RAPID TESTING) 2023-01-20 19:24:00 Virginia Soni [facility] BASIC METABOLIC PANEL (NA, K, CL, CO2, GLUCOSE, BUN, CREATININE, CA) 2022-12-01 11:21:00 Andreina Childs [facility] XR ANKLE 3+ VW RIGHT 2022-11-30 01:09:00 Juno Verdin [facility] XR KUB 2022-11-29 23:28:59 Juno Verdin [facility] COMP. METABOLIC PANEL ([id number]) 2022-11-29 23:10:00 Juno Verdin [facility] CBC WITH DIFF 2022-11-29 23:10:00 Juno Verdin [facility] CT ABDOMEN PELVIS W CONTRAST 2022-11-26 21:46:20 Frankie Olman [facility] COMP. METABOLIC PANEL ([id number]) 2022-11-26 19:54:00 Frankie Olman [facility] CBC WITH DIFF 2022-11-26 19:54:00 Frankie [facility] ASSIGNMENT OF BENEFITS 2022-11-26 19:35:58 Docto r Unassigned, Calpella [facility] CONSENT/REFUSAL FOR DIAGNOSIS AND TREATMENT 2022-11-26 19:35:18 Doctor Unassigned, Calpella [facility] XR CHEST 1 VW 2022-11-26 19:29:39 Frankie Olman [facility] CONSENT/REFUSAL FOR DIAGNOSIS AND TREATMENT 2022-11-26 19:13:37 Doctor Unassigned, Calpella [facility] CONSENT/REFUSAL FOR DIAGNOSIS AND TREATMENT 2022-11-26 19:09:05 Doctor Unassigned, Calpella [facility] EXTERNAL PROVIDER - ADC CARDIOLOGY 2022-11-21 05:01:00 Doctor Unassigned, Calpella [facility] XR CHEST 1 VW 2022-10-30 11:30:00 Aziza Echevarria [facility] MAGNESIUM 2022-10-30 09:09:00 Aziza Echevarria [facility] BASIC METABOLIC PANEL (NA, K, CL, CO2, GLUCOSE, BUN, CREATININE, CA) 2022-10-30 09:09:00 Wale [facility] CBC WITH DIFF 2022-10-30 09:09:00 aWle [facility] POCT GLUCOSE (AUTOMATED) 2022-10-29 13:16:00 Harvinder [facility] MAGNESIUM 2022-10-29 07:50:00 [facility] MET[facility]OLIC PANEL (NA, K, CL, CO2, GLUCOSE, BUN, CREATININE, CA) 2022-10-29 07:50:00 Wale [facility] CBC WITH DIFF 2022-10-29 07:50:00 Wale [facility] POCT GLUCOSE (AUTOMATED) 2022-10-29 01:59:00 [facility] 2022-10-28 21:26:00 [facility] PO[facility]UCOSE (AUTOMATED) 2022-10-28 16:56:00 [facility] LEGIONELLA AND STREPTOCOCCUS PNEUMONIAE URINARY ANTIGENS 2022-10-28 16:05:00 [facility] JESSE AURIS SURVEILLANCE BY PCR (INFECTION CONTROL PURPOSES) 2022-10-28 15:51:00 u Stephon [facility] BASIC METABOLIC PANEL (NA, K, CL, CO2, GLUCOSE, BUN, CREATININE, CA) 2022-10-28 15:45:00 Wale [facility] CBC WITH DIFF 2022-10-28 15:45:00 Wale [facility] LACTIC ACID WHOLE BLOOD 2022-10-28 15:32:00 Abu Virginia celaya [facility] PROCALCITONIN 2022-10-28 15:32:00 u Lydia Stevenson [facility] POCT GLUCOSE (AUTOMATED) 2022-10-28 13:54:00 Harvinder [facility] BLOOD CULTURE SCREEN 2022-10-28 06:55:00 Lashon Beck i [facility] XR CHEST 1 VW 2022-10-28 04:21:00 Marcie Nickerson [facility] THROAT CULTURE 2022-10-28 03:42:00 Marcie Nickerson [facility] RAPID STREP SCREEN FOR GROUP A 2022-10-28 03:42:00 Marcie Nickerson [facility] COVID-19 (ID NOW RAPID TESTING) 2022-10-28 03:42:00 Marcie Nickerson [facility] LAB ONLY COVID INTERPRETATION 2022-10-28 03:42:00 Marcie Nickerson [facility] MAGNESIUM 2022-10-28 03:26:00 Chaz Roberts [facility] TROPONIN I 2022-10-28 03:26:00 [facility]. METABOLIC PANEL ([id number]) 2022-10-28 03:26:00 Marcie Nickerson [facility] CBC WITH DIFF 2022-10-28 03:26:00 Marcie Nickerson [facility] GLYCOSYLATED HEMOGLOBIN (A1C) 2022-10-28 03:26:00 Lydia Tristan [facility] URINALYSIS 2022-10-28 03:26:00 Marcie Nickerson [facility] LACTIC ACID WHOLE BLOOD 2022-10-28 03:26:00 Marcie Nickerson [facility] ASSIGNMENT OF BENEFITS 2022-10-28 03:23:04 Docto r Unassigned, Calpella [facility] NOTICE OF PRIVACY PRACTICES 2022-10-28 03:22:29 Doctor Unassigned, Calpella [facility] CONSENT/REFUSAL FOR DIAGNOSIS AND TREATMENT 2022-10-28 03:22:10 Doctor Unassigned, Calpella [facility] HB ECG ROUTINE & RHYTHM STRIP 2022-10-28 03:09:11 Marcie Nickerson [facility] CT THORAX W CONTRAST 2022-07-25 18:16:16 Juancarlos Rios i [facility] RAPID INFLUENZA A/B 2022-07-25 17:15:00 Marlena Rios [facility] COVID-19 (ID NOW RAPID TESTING) 2022-07-25 17:15:00 Marlena Rios [facility] BASIC METABOLIC PANEL (NA, K, CL, CO2, GLUCOSE, BUN, CREATININE, CA) 2022-07-25 09:46:00 Amadeo Andreina [facility] CBC WITH DIFF 2022-07-25 09:46:00 Amadeo Andreina [facility] XR CHEST 1 VW 2022-07-25 00:09:00 Amadeo Andreina [facility] BASIC METABOLIC PANEL (NA, K, CL, CO2, GLUCOSE, BUN, CREATININE, CA) 2022-07-24 09:31:00 Andreina Childs [facility] CBC WITH DIFF 2022-07-24 09:31:[address] [facility] MRSA / MSSA SCREEN BY PCRARNOLD 2022-07-23 21:06:00 Andreina Childs [facility] CBC WITH DIFF 2022-07-22 10:41:00 Leroy Soni [facility] BASIC METABOLIC PANEL (NA, K, CL, CO2, GLUCOSE, BUN, CREATININE, CA) 2022-07-22 09:09:00 Leroy Soni [facility] WOUND/ASPIRATE OR ABSCESS CULTURE 2022-07-21 16:22:00 Alirio Locke [facility] WOUND CULTURE 2022-07-21 16:22:00 Alirio Locke [facility] XR ANKLE <3 VW RIGHT 2022-07-21 12:18:38 Norm Lentz [facility] BLOOD CULTURE SCREEN 2022-07-21 02:26:00 Norm Lentz [facility] COMP. METABOLIC PANEL ([id number]) 2022-07-21 02:26:00 Nicanor Lentz [facility] SEDIMENTATION RATE 2022-07-21 02:26:00 Nicanor Lentz [facility] CBC WITH DIFF 2022-07-21 02:26:00 Nicanor Lentz [facility] LACTIC ACID WHOLE BLOOD 2022-07-21 02:25:00 , Tatyana [facility] LACTIC ACID WHOLE BLOOD 2022-07-18 20:14:00 , Tatyana [facility] COMP. METABOLIC PANEL ([id number]) 2022-07-18 20:12:00 Singer [facility] SEDIMENTATION RATE 2022-07-18 20:12:00 Singer [facility] CBC WITH DIFF 2022-07-18 20:12:[address] [facility] CT ABDOMEN PELVIS W CONTRAST 2022-06-10 18:56:57 Joseph Melendez Veronica [facility] XR CHEST 1 VW 2022-06-10 18:39:57 Joseph Melendez [facility] URINALYSIS 2022-06-10 18:30:00 [facility] ASSIGNMENT OF BENEFITS 2022-06-10 17:41:23 Docto r Unassigned, Calpella [facility] CONSENT/REFUSAL FOR DIAGNOSIS AND TREATMENT 2022-06-10 17:39:47 Doctor Unassigned, Calpella [facility] LIPASE 2022-06-10 17:15:00 Joseph Melendez [facility] MAGNESIUM 2022-06-10 17:15:00 Joseph [facility] TROPONIN I 2022-06-10 17:15:00 Joseph [facility] COMP. METABOLIC PANEL ([id number]) 2022-06-10 17:15:00 Joseph Melendez Veronica [facility] CBC WITH DIFF 2022-06-10 17:15:00 Joseph Melendez [facility] EXTERNAL PROVIDER RECORDS 2022-06-03 06:01:00 Do ctor Unassigned, Calpella [facility] BASIC METABOLIC PANEL (NA, K, CL, CO2, GLUCOSE, BUN, CREATININE, CA) 2022-05-28 10:01:00 Andreina Childs [facility] CBC WITH DIFF 2022-05-28 10:01:00 Andreina Childs [facility] BASIC METABOLIC PANEL (NA, K, CL, CO2, GLUCOSE, BUN, CREATININE, CA) 2022-05-27 10:03:00 Josefina Dasilva [facility] CBC WITH DIFF 2022-05-27 10:03:00 Josefina Dasilva [facility] CT ABDOMEN PELVIS WO CONTRAST 2022-05-27 00:19:06 Marcie Nickerson [facility] XR CHEST 1 VW 2022-05-27 00:18:27 Marcie Nickerson [facility] COMP. METABOLIC PANEL ([id number]) 2022-05-26 23:52:00 Marcie Nickerson [facility] CBC WITH DIFF 2022-05-26 22:55:00 Marcie Nickerson [facility] COVID-19 (ID NOW RAPID TESTING) 2022-05-26 22:41:00 Krishan [facility] LAB ONLY COVID INTERPRETATION 2022-05-26 22:41:00 Krishan [facility] BASIC METABOLIC PANEL (NA, K, CL, CO2, GLUCOSE, BUN, CREATININE, CA) 2022-05-05 10:38:00 Leroy Soni [facility] CBC WITH DIFF 2022-05-05 10:38:00 Leroy Soni [facility] FECES CULTURE 2022-05-03 15:27:00 Brown [facility] OCCULT (GUAIAC) BLOOD 2022-05-03 15:27:00 Randi Dasilva [facility] CLOSTRIDIUM DIFFICILE TOXIN 2022-05-03 15:25:00 Nicanor Lentz [facility] BASIC METABOLIC PANEL (NA, K, CL, CO2, GLUCOSE, BUN, CREATININE, CA) 2022-05-03 11:51:00 Brown [facility] CBC WITH DIFF 2022-05-03 11:51:00 Brown [facility] CT ABDOMEN PELVIS W CONTRAST 2022-05-03 01:40:00 Singer Nicanor [facility] COMP. METABOLIC PANEL ([id number]) 2022-05-03 00:41:00 Nicanor Lentz [facility] CBC WITH DIFF 2022-05-03 00:41:00 Nicanor Lentz [facility] Encounters Start Date/Time End Date/Time Encounter Type Admission Type Attending [facility] Care Department Encounter ID Source 2023-09-02 13:45:00 2023-09-02 13:45:00 Outpatient NATALIE SALTER [facility] [id number] [facility] 2023 14:51:00 2023 20:06:00 Emergency X Joseph MELENDEZ [facility] ERT [id number] [facility] 2023 14:51:00 2023 20:06:00 Emergency AlJoseph Veronica [facility] [id number] [facility] 2023-02-24 15:31:00 2023-02-24 17:09:00 Emergency X NICANOR LENTZ [facility] ERT [id number] [facility] [facility]-24 15:31:00 2023-02-24 17:09:00 Emergency Nicanor Lentz [facility] 1.2.840.114 350.1.13.10 4.2.7.2.686 [id number] [facility] 2023-02-09 00:00:00 2023-02-09 00:00:00 Transition of Care Shira Mead [place] 1.2.840.114 350.1.13.10 4.2.7.2.686 [id number] [facility] 2023-02-02 11:13:00 2023-02-06 14:30:00 Inpatient Kevin MARQUES HINES [facility] [id number] [facility] 2023-02-02 11:13:00 2023-02-06 14:30:00 Hospital Encounter Andreina Uriarte Gogo Leonjannie, Marlenasushil Hines [facility] 1.2.840.114 350.1.13.10 4.2.7.2.686 [id number] [facility] 2023-01-25 14:59:00 2023-01-29 14:45:00 Outpatient MARQUES ABDALLA [facility] [id number] [facility] 2023-01-25 14:59:00 2023-01-29 14:45:00 Emergency Virginia Soni [facility] 1.2840.114 350.1.13.10 4.2.7.2.686 [id number] [facility] 2023-01-20 14:16:00 2023-01-20 18:32:00 Emergency X VIRGINIA SONI [facility] [id number] [facility] 2023-01-20 14:16:00 2023-01-20 18:32:00 Emergency Virginia Soni [facility] 1.2840.114 350.1.13.10 4.2.7.2.686 [id number] [id number] [facility] 2022-12-02 00:00:00 2022-12-02 00:00:00 Transition of Care Ena Vaughn 1.2.840.114 350.1.13.10 4.2.7.2.686 [id number] [facility] 2022-11-29 17:47:00 2022-12-01 15:01:00 Outpatient MARQUES ABDALLA [facility] [id number] [facility] 2022-11-29 17:47:00 2022-12-01 15:01:00 Emergency Juno Verdin [facility] 1.2840.114 350.1.13.10 4.2.7.2.686 [id number] [facility] 2022-11-26 14:05:00 2022-11-26 20:18:00 Emergency X OLMAN DAVID [facility] [id number] [facility] 2022-11-26 14:05:00 2022-11-26 20:18:00 Emergency Olman David [facility] 1.2.840.114 350.1.13.10 4.2.7.2.686 [id number] [facility] 2022-11-21 00:00:00 2022-11-21 00:00:00 Orders Only Doctor Unassigned, Calpella [facility] 1.2.840.114 350.1.13.10 4.2.7.2.686 [id number] [facility] 2022-10-31 00:00:00 2022-10-31 00:00:00 Transition of Care Ena Vaughn 1.2.840.114 350.1.13.10 4.2.7.2.686 [id number] [facility] 2022-10-27 22:03:00 2022-10-30 14:20:00 Inpatient X LARRY STEVENSON [facility] [id number] [facility] 2022-10-27 22:03:00 2022-10-30 14:20:00 Hospital Encounter Marcie Nickerson Wakili S Albustami, Chaz Larry Stevenson [facility] 1.2840.114 350.1.13.10 4.2.7.2.686 [id number] [facility] 2022-08-27 14:15:00 2022-08-27 15:25:22 Outpatient R NATALIE TRIVEDI [facility] [id number] [facility] 2022-08-27 14:15:00 2022-08-27 15:25:22 Office Visit Natalie Trivedi [facility] PROFESSIO [facility] BUILDING 1.2840.114 350.1.13.10 4.2.7.2.686 [id number] [facility] 2022-07-31 00:00:00 2022-07-31 00:00:00 Patient Secure Msg Doctor Unassigned, Calpella [facility] 1.2840.114 350.1.13.10 4.2.7.2.686 [id number] [facility] 2022-07-30 14:15:00 2022-07-30 14:15:00 Outpatient R NATALIE TRIVEDI [facility] [id number] [facility] 2022-07-28 00:00:00 2022-07-28 00:00:00 Transition of Care Ena Vaughn [place] 1.2840.114 350.1.13.10 4.2.7.2.686 [id number] [facility] 2022-07-20 20:56:00 2022-07-26 16:35:00 Hospital Encounter Nicanor Lentz, Maruqes León [facility] 1.2840.114 350.1.13.10 4.2.7.2.686 [id number] [id number] [facility] 2022-07-18 14:46:00 2022-07-18 18:35:00 Emergency X NICANOR LENTZ [facility] [id number] [facility] 2022-07-18 14:46:00 2022-07-18 18:35:00 Emergency Nicanor Lentz [facility] 1.2.840.114 350.1.13.10 4.2.7.2.686 [id number] [facility] 2022-07-18 14:46:00 2022-07-18 18:35:00 Emergency X NICANOR LENTZ [facility] [id number] [facility] 2022-07-02 00:00:00 2022-07-02 00:00:00 Telephone Jean Jarrett [facility] PROFESSIO NAL BUILDING 1.84.114 350.1.13.10 4.2.7.2.686 [id number] [facility] 2022-07-01 00:00:00 2022-07-01 00:00:00 [facility] MEDICAL OFF[facility] BUILDING 1.84.114 350.1.13.10 4.2.7.2.686 [id number] 044 [id number] [facility] 2022-06-19 14:30:00 2022-06-19 14:30:00 Outpatient [facility] [id number] [facility] 2022-06-16 00:00:00 2022-06-16 00:00:00 [facility] OFFICE BUILDING 1.84.114 350.1.13.10 4.2.7.2.686 [id number] [facility] 2022-06-10 10:22:00 2022-06-10 16:51:00 Emergency X Joseph MELENDEZ [facility] [id number] [facility] 2022-06-10 10:22:00 2022-06-10 16:51:00 Emergency Joseph Melendez [facility] 1.114 350.1.13.10 4.2.7.2.686 [id number] [facility] 2022-06-03 00:00:00 2022-06-03 00:00:00 Orders Only Doctor Unassigned, Calpella [facility] 1..114 350.1.13.10 4.2.7.2.686 [id number] [id number] [facility] 2022-06-03 00:00:00 2022-06-03 00:00:00 Telephone Chan [facility]IPIN [facility] MEDICAL OFFICE BUILDING 1.2840.114 350.1.13.10 4.2.7.2.686 [id number] [id number] [facility] 2022-05-29 00:00:00 2022-05-29 00:00:00 Transition of Care Ena Vaughn 1.20.114 350.1.13.10 4.2.7.2.686 [id number] [facility] 2022-05-26 16:25:00 2022-05-28 14:40:00 Inpatient X [facility] [id number] [facility] 2022-05-26 16:25:00 2022-05-28 14:40:00 Hospital Encounter Marcie Nickerson [facility] 1.0.114 350.1.13.10 4.2.7.2.686 [id number] [facility] 2022-05-23 00:00:00 2022-05-23 00:00:00 Telephone Chan [facility]IPIN [facility] MEDICAL OFFICE BUILDING 1.20.114 350.1.13.10 4.2.7.2.686 [id number] 044 [id number] [facility] 2022-05-05 18:41:00 2022-05-16 14:13:00 Inpatient 3 [place] [id number] [facility] [place] 2022-05-06 00:00:00 2022-05-06 00:00:00 Transition of Care Ena Vaughn 1.2840.114 350.1.13.10 4.2.7.2.686 [id number] [facility] 2022-05-02 18:19:00 2022-05-05 17:40:00 Outpatient X [facility] [id number] [facility] 2022-05-02 18:19:00 2022-05-05 17:40:00 [facility] 1.2.840.114 350.1.13.10 4.2.7.2.686 [id number] [facility] 2022-05-01 00:00:00 2022-05-01 00:00:00 Telephone Chan [facility] MEDICAL OFFICE BUILDING 1.2.840.114 350.1.13.10 4.2.7.2.686 [id number] [facility] 2022-04-17 00:00:00 2022-04-17 00:00:00 Telephone Chan [facility] MEDICAL OFFICE BUILDING 1.2.840.114 350.1.13.10 4.2.7.2.686 [id number] [facility] 2021-12-05 14:30:00 2021-12-05 14:45:00 Office Visit Giles [facility] MEDICAL OFFICE BUILDING 1.2.840.114 350.1.13.10 4.2.7.2.686 [id number] [facility] 2021-12-05 14:30:00 2021-12-05 14:30:00 Outpatient DOUGIE BLACKMON [facility] [id number] [facility] 2021-12-05 14:30:00 2021-12-05 14:30:00 Outpatient DOUGIE BLACKMON [facility] [id number] [facility] 2021-12-05 00:00:00 2021-12-05 00:00:00 Orders Only Doctor Unassigned, Calpella [facility] 1..840.114 350.1.13.10 4.2.7.2.686 [id number] [facility] 2021-11-28 14:00:00 2021-11-28 14:00:00 Outpatient DOUGIE BLACKMON [facility] [id number] [facility] 2021-11-27 00:00:00 2021-11-27 00:00:[address] [facility] 1..840.114 350.1.13.10 4.2.7.2.686 [id number] [facility] 2021-11-21 14:30:00 2021-11-21 14:30:00 Outpatient DOUGIE BLACKMON [facility] [id number] [facility] 2021-11-18 15:00:00 2021-11-18 15:00:00 Nurse Visit Nurse, [facility] 1..840.114 350.1.13.10 4.2.7.2.686 [id number] [facility] 2021-11-18 15:00:00 2021-11-18 13:15:55 Outpatient KATALINA SALTERTNEY [facility] [id number] [facility] 2021-11-11 11:15:00 2021-11-11 14:37:03 [facility] [id number] [facility] 2021-11-11 11:15:00 2021-11-11 14:37:03 Nurse Visit Nurse, [facility] 1..840.114 350.1.13.10 4.2.7.2.686 [id number] [facility] 2021-11-11 00:00:00 2021-11-11 00:00:[address] [facility] 1.2.840.114 350.1.13.10 4.2.7.2.686 [id number] [facility] 2021-10-24 00:00:00 2021-10-24 00:00:00 [facility]ill [facility] MEDICAL OFFICE BUILDING 1..840.114 350.1.13.10 4.2.7.2.686 [id number] [id number] [facility] 2021-10-22 16:00:00 2021-10-22 16:00:00 Nurse Visit Nurse, [facility] 1..840.114 350.1.13.10 4.2.7.2.686 [id number] [facility] 2021-10-22 16:00:00 2021-10-22 15:58:34 Outpatient R [facility] [id number] [facility] 2021-10-22 00:00:00 2021-10-22 00:00:[address] [facility] 1..840.114 350.1.13.10 4.2.7.2.686 [id number] [facility] 2021-09-24 00:00:00 2021-09-24 00:00:00 Refill Chan [facility]KS?BIPIN [facility] MEDICAL OFFICE BUILDING 1.2.840.114 350.1.13.10 4.2.7.2.686 [id number] [id number] [facility] 2021-09-17 00:00:00 2021-09-17 00:00:00 Orders Only Doctor Unassigned, Calpella [facility] 1.2840.114 350.1.13.10 4.2.7.2.686 [id number] [facility] 2021-07-31 15:00:00 2021-07-31 15:42:22 [facility] [id number] [facility] 2021-07-31 15:00:00 2021-07-31 15:42:22 Office Visit [facility] 1.2.840.114 350.1.13.10 4.2.7.2.686 [id number] [facility] 2021-07-31 15:00:00 2021-07-31 15:00:00 [facility] [id number] 2021-07-31 00:00:00 2021-07-31 00:00:00 Orders Only Doctor Unassigned, Calpella [facility] 1.2840.114 350.1.13.10 4.2.7.2.686 [id number] [id number] [facility] 2021-07-30 00:00:00 2021-07-30 00:00:00 Telephone Jelani Cordon [facility]IPIN [facility] MEDICAL OFFICE BUILDING 1.2.840.114 350.1.13.10 4.2.7.2.686 [id number] [facility] 2021-07-29 00:00:00 2021-07-29 00:00:00 Telephone Jean Jarrett [facility] BUILDING 1.2.840.114 350.1.13.10 4.2.7.2.686 [id number] [facility] 2021-07-22 00:00:00 2021-07-22 00:00:00 Orders Only Doctor Unassigned, Calpella [facility] 1.2840.114 350.1.13.10 4.2.7.2.686 [id number] [facility] 2021-06-26 00:00:00 2021-06-26 00:00:00 Orders Only Doctor Unassigned, Calpella [facility] 1.2840.114 350.1.13.10 4.2.7.2.686 [id number] [id number] [facility] 2021-06-19 14:30:00 2021-06-19 14:30:00 Outpatient DOUGIE BLACKMON [facility] [id number] [facility] 2021-06-15 00:00:00 2021-06-15 00:00:00 Orders Only Doctor Unassigned, Calpella [facility] 1.2840.114 350.1.13.10 4.2.7.2.686 [id number] [facility] 2021-06-03 15:45:00 2021-06-03 15:45:00 [facility] [id number] [facility] 2021-06-03 00:00:00 2021-06-03 00:00:00 [facility]phone [facility] 1.840.114 350.1.13.10 4.2.7.2.686 [id number] [facility] 2021-05-15 00:00:00 2021-05-15 00:00:00 Telephone Dougie Giles [facility] MED[facility] OFF[facility] BUILDING 1..840.114 350.1.13.10 4.2.7.2.686 [id number] [facility] 2021-05-01 00:00:00 2021-05-01 00:00:00 Telephone Liane Negrete [facility] 1..114 350.1.13.10 4.2.7.2.686 [id number] [facility] 2021-04-30 00:00:00 2021-04-30 00:00:00 Telephone Only, Ang Db Test [facility] MEDICAL OFFICE BUILDING 1..114 350.1.13.10 4.2.7.2.686 [id number] [facility] 2021-04-29 15:00:00 2021-04-29 15:15:00 Laboratory Only Only, Ang Db Test FahadMannie [facility] MEDICAL OFFICE BUILDING 1.84.114 350.1.13.10 4.2.7.2.686 [id number] [facility] 2021-04-29 15:00:00 2021-04-29 15:00:00 Outpatient R FAHAD MANNIE [facility] [id number] [facility] 2021-04-29 00:00:00 2021-04-29 00:00:00 Orders Only Doctor Unassigned, Calpella [facility] 1.84.114 350.1.13.10 4.2.7.2.686 [id number] [id number] [facility] 2021-04-11 14:15:00 2021-04-11 15:10:33 Outpatient DOUGIE BLACKMON [facility] [id number] [facility] 2021-04-11 14:15:00 2021-04-11 14:30:00 Office Visit Dougie Giles [facility] MEDICAL OFFICE BUILDING 1.84.114 350.1.13.10 4.2.7.2.686 [id number] [facility] 2021-04-11 14:15:00 2021-04-11 14:15:00 Outpatient R DOUGIE GILES [facility] [id number] [facility] 2021-04-11 14:15:00 2021-04-11 14:15:00 Outpatient R DOUGIE GILES [facility] [id number] [facility] 2021-04-11 14:15:00 2021-04-11 14:15:00 Outpatient R DOUGIE GILES [facility] [id number] [facility] 2021-03-25 15:30:00 2021-03-25 16:15:24 Outpatient R MARGI BOYD [facility] [id number] [facility] 2021-03-25 15:30:00 2021-03-25 16:15:24 Office Visit Margi Boyd Mayte [facility] 1..840.114 350.1.13.10 4.2.7.2.686 [id number] [facility] 2021-03-25 15:30:00 2021-03-25 16:15:24 Outpatient R MARGI BOYD [facility] [id number] [facility] 2021-03-08 00:00:00 2021-03-08 00:00:00 Orders Only Doctor Unassigned, Calpella [facility] 1..840.114 350.1.13.10 4.2.7.2.686 [id number] [facility] 2021-03-07 13:15:00 2021-03-07 14:35:42 Outpatient R JEAN JARRETT [facility] [id number] [facility] 2021-03-07 13:12:17 2021-03-07 14:35:42 Office Visit JaniaJean [facility] 1..840.114 350.1.13.10 4.2.7.2.686 [id number] [facility] 2021-03-07 13:15:00 2021-03-07 13:15:00 Outpatient R JEAN JARRETT [facility] [id number] [facility] 2021-02-25 00:00:00 2021-02-25 00:00:00 Orders Only Doctor Unassigned, Calpella [facility] 1.2840.114 350.1.13.10 4.2.7.2.686 [id number] [facility] 2021-02-21 00:00:00 2021-02-21 00:00:00 Telephone Dougie Giles [facility] 1.2.114 350.1.13.10 4.2.7.2.686 [id number] [facility] 2021-02-01 00:00:00 2021-02-01 00:00:00 Telephone Jelani Cordon [facility] 1.2840.114 350.1.13.10 4.2.7.2.686 [id number] [facility] 2021-01-30 00:00:00 2021-01-30 00:00:00 Telephone Chan Dougie [facility] MEDICAL OFFICE BUILDING 1.20.114 350.1.13.10 4.2.7.2.686 [id number] 044 [id number] [facility] 2021-01-30 00:00:00 2021-01-30 00:00:00 Telephone Chan Dougie [facility] MEDICAL OFFICE BUILDING 1.2.114 350.1.13.10 4.2.7.2.686 [id number] [id number] [facility] 2021-01-18 15:11:53 2021-01-18 15:41:53 Office Visit Justine Garcia [facility] Medical Office Building 1.2840.114 350.1.13.10 4.2.7.2.686 [id number] [facility] 2021-01-18 15:00:00 2021-01-18 15:00:00 Outpatient R SIERRAJUSTINE BECKER [facility] [id number] [facility] 2021-01-17 00:00:00 2021-01-17 00:00:00 [facility]ip[facility] Medical Office Building 1..114 350.1.13.10 4.2.7.2.686 [id number] [facility] 2020-11-22 00:00:00 2020-11-22 00:00:00 Telephone Chan [facility] Office Building One ..114 350.1.13.10 4.2.7.2.686 [id number] 044 [id number] [facility] 2020-11-19 00:00:00 2020-11-19 00:00:00 [facility] 1..114 350.1.13.10 4.2.7.2.686 [id number] 044 [id number] [facility] 2020-10-18 11:40:10 2020-10-18 12:00:10 Drop Wire Aliner Visit Lab, Adc Fam Pob I Chan [facility] Office Building One .114 350.1.13.10 4.2.7.2.686 [id number] [facility] 2020-10-18 11:20:00 2020-10-18 11:20:00 Outpatient R [facility] [id number] [facility] 2020-10-11 13:52:36 2020-10-11 14:07:36 Office Visit Chan [facility] Office Building One 1.2.840.114 350.1.13.10 4.2.7.2.686 [id number] [facility] 2020-10-11 14:00:00 2020-10-11 14:00:00 Outpatient DOUGIE BLACKMON [facility] [id number] [facility] 2020-10-11 00:00:00 2020-10-11 00:00:00 Orders Only Doctor Unassigned, Calpella [facility] 1.20.114 350.1.13.10 4.2.7.2.686 [id number] [facility] 2020-09-28 00:00:00 2020-09-28 00:00:00 [facility] 1.2840.114 350.1.13.10 4.2.7.2.686 [id number] [facility] 2020-09-27 14:00:00 2020-09-27 14:00:00 Outpatient ANGELES BLACKMONONY [facility] [id number] [facility] 2020-08-28 13:43:19 2020-08-28 14:44:37 Office Visit [facility] Building 1.2840.114 350.1.13.10 4.2.7.2.686 [id number] [facility] 2020-08-28 14:20:00 2020-08-28 14:20:00 Outpatient JELANI NOVAK HOWARD [facility] [id number] [facility] 2020-08-02 00:00:00 2020-08-02 00:00:00 [facility] 1.2.840.114 350.1.13.10 4.2.7.2.686 [id number] [facility] 2020-07-17 00:00:00 2020-07-17 00:00:00 Orders Only Doctor Unassigned, Calpella [facility] .114 350.1.13.10 4.2.7.2.686 [id number] [facility] 2020-07-09 00:00:00 2020-07-09 00:00:00 Dougie Burgess [facility] Office Building One ..114 350.1.13.10 4.2.7.2.686 [id number] [facility] 2020-06-07 17:50:00 2020-06-07 17:50:00 Outpatient JEZ DUNNE [facility] [id number] [facility] 2020-06-07 16:00:00 2020-06-07 16:00:00 Outpatient JEZ DUNNE [facility] [id number] [facility] 2020-05-10 18:10:00 2020-05-10 18:10:00 Outpatient JEZ DUNNE [facility] [id number] [facility] 2020-05-08 00:00:00 2020-05-08 00:00:00 Jelani Espinoza [facility] Building ..114 350.1.13.10 4.2.7.2.686 [id number] [facility] 2020-04-02 00:00:00 2020-04-02 00:00:00 Dougie Burgess [facility] Building .840.114 350.1.13.10 4.2.7.2.686 [id number] [facility] 2020-03-12 00:00:00 2020-03-12 00:00:00 Dougie Beaulieu [facility] Office Building One 1.840.114 350.1.13.10 4.2.7.2.686 [id number] [facility] 2020-03-09 00:00:00 2020-03-09 00:00:00 [facility] Building 1..840.114 350.1.13.10 4.2.7.2.686 [id number] [facility] 2020-01-11 00:00:00 2020-01-11 00:00:00 Telephone Jelani Cordon [facility] Building 1.84.114 350.1.13.10 4.2.7.2.686 [id number] [facility] 2019-10-03 00:00:00 2019-10-03 00:00:00 Telephone Jelani Cordon [facility] 1.840.114 350.1.13.10 4.2.7.2.686 [id number] [facility] 2019-09-22 08:30:00 2019-09-22 08:30:00 Outpatient DOUGIE BLACKMON [facility] [id number] [facility] 2019-09-19 13:45:00 2019-09-19 13:45:00 Outpatient DOUGIE BLACKMON [facility] [id number] [facility] 2019-09-19 07:50:44 2019-09-19 08:05:44 Telemedici ne Visit Chan Dougie [facility] Building 1.840.114 350.1.13.10 4.2.7.2.686 [id number] [facility] 2019-07-19 00:00:00 2019-07-19 00:00:00 Refill Jelani Cordon [facility] Building 1.840.114 350.1.13.10 4.2.7.2.686 [id number] [facility] 2019-07-18 00:00:00 2019-07-18 00:00:00 Refgregoria CampbellochJelani lopes [facility] 1.2.840.114 350.1.13.10 4.2.7.2.686 [id number] [facility] 2019-07-11 00:00:00 2019-07-11 00:00:00 Shannon Giles Dougie [facility] Office Building One 1.2.840.114 350.1.13.10 4.2.7.2.686 [id number] [facility] 2019-06-13 00:00:00 2019-06-13 00:00:00 Telephone MarilynJelani [facility] Building 1.2.840.114 350.1.13.10 4.2.7.2.686 [id number] [facility] 2019-05-23 14:20:22 2019-05-23 15:03:09 Office Visit MarilynJelani Chris [facility] Building 1.2.840.114 350.1.13.10 4.2.7.2.686 [id number] [facility] 2019-05-19 13:41:15 2019-05-19 23:59:00 Outpatient R JELANI CORDON [facility] [id number] [facility] 2019-05-19 13:41:00 2019-05-19 23:59:00 Hospital Encounter Jelani [facility] 1.2.840.114 350.1.13.10 4.2.7.2.686 [id number] [facility] 2019-05-10 13:35:57 2019-05-10 14:47:10 Office Visit Jelani Cordon [facility] 1.2.840.114 350.1.13.10 4.2.7.2.686 [id number] [id number] [facility] 2019-05-10 00:00:00 2019-05-10 00:00:00 Orders Only Doctor Unassigned, [place] [facility] 1.2.840.114 350.1.13.10 4.2.7.2.686 [id number] [facility] 2019-04-19 00:00:00 2019-04-19 00:00:00 Orders Only Doctor Unassigned, [place] [facility] 1.2.840.114 350.1.13.10 4.2.7.2.686 [id number] [id number] [facility] 2016-02-26 03:16:00 2016-02-26 03:16:00 Outpatient Raju_P [facility] [id number] 1214 [facility] Results Test Description Test Time Test Comments Results Result Co mments Source [facility] WITH [id number] 21:58:52* Test Item Value Reference Range Interpretation Comme nts WBC (test code = 6690-2) 6.24 See_Comment [[employer]ated [employer]] The system which generated this result transmitted reference range: 4.20 - 10.70 10*3/?L. The reference range was not used to interpret this result as normal/abnormal. RBC (test code = 789-8) 4.28 See_Comment [Automated [employer]] The system which generated this result [...] 33.2 g/dL 31.2-35.0 RDW-SD (test code = 44269-4) 48.7 fL 38.5-51.6 RDW-CV (test code = 788-0) 14.7 % 12.1-15.4 PLT (test code = 777-3) 209 See_Comment [Automated [employer]] The system which generated this result transmitted reference range: 150 - 328 10*3/?L. The reference range was not used to interpret this result as normal/abnormal. MPV (test code = 37948-5) 8.6 fL 9.8-13.0 L NRBC/100 WBC (test code = 5507375572) 0.0 See_Comment [Automated [employer] ssage] The system which generated this result transmitted reference range: 0.0 - 10.0 /100 WBCs. The reference range was not used to interpret this result as normal/abnormal. NRBC x10^3 (test code = 5677607253) See_Comment [Automated [employer]] The system which generated this result transmitted reference range: 10*3/?L. The reference range was not used to interpret this result as normal/abnormal. GRAN MAT (NEUT) % (test code = 770-8) 66.3 % IMM GRAN % (test code = 5275829546) 0.30 % LYMPH % (test code = 736-9) 21.3 % MONO % (test code = 5905-5) 8.8 % EOS % (test code = 713-8) 3.0 % BASO % (test code = 706-2) 0.3 % GRAN MAT x10^3(ANC) (test code = 0414078942) 4.13 10*3/uL 1.99-6.95 IMM GRAN x10^3 (test code = 7700503438) 0.00-0.06 LYMPH x10^3 (test code = 731-0) 1.33 10*3/uL 1.09-3.23 MONO x10^3 (test code = 742-7) 0.55 10*3/uL 0.36-1.02 EOS x10^3 (test code = 711-2) 0.19 10*3/uL 0.06-0.53 BASO x10^3 (test code = 704-7) 0.01-0.09 Lab Interpretation (test code = 50747-3) Abnormal [facility] METABOLIC PANEL (NA, K, CL, CO2, GLUCOSE, BUN, CREATININE, CA)2023-02-24 22:19:20* Test Item Value Reference Range Interpretation Comme nts NA (test code = 1561457907) 137 mmol/L 135-145 K (test code = 4333766991) 3.8 mmol/L 3.5-5.0 CL (test code = 8104215847) 106 mmol/L 98-108 CO2 TOTAL (test code = 9099862624) 24 mmol/L 23-31 AGAP (test code = 7683225314) 7 2-16 BUN (test code = 4246512188) 25 mg/dL 7-23 H GLUCOSE (test code = 0404991777) 109 mg/dL 70-110 CREATININE (test code = 4899261781) 0.56 mg/dL 0.60-1.25 L CALCIUM (test code = 1325170009) 8.8 mg/dL 8.6-10.6 eGFR (test code = 98671-7) 101.5 mL/min/1.73m2 CKD-EPI eGFR (2020). Assuming creatinine has been stable day-to-day for at least three months, the eGFR indicates Category G1 (>= 90 mL/min/1.73 m2) Lab Interpretation (test code = 16448-0) Abnormal [facility] METABOLIC PANEL (NA, K, CL, CO2, GLUCOSE, BUN, CREATININE, CA)2023-02-05 10:07:11* Test Item Value Reference Range Interpretation Comme nts NA (test code = 6247980913) 141 mmol/L 135-145 K (test code = 1772538901) 3.9 mmol/L 3.5-5.0 CL (test code = 0556138534) 110 mmol/L 98-108 H CO2 TOTAL (test code = 9226010023) 24 mmol/L 23-31 AGAP (test code = 1453599562) 7 2-16 BUN (test code = 4198498319) 26 mg/dL 7-23 H GLUCOSE (test code = 2805452641) 88 mg/dL 70-110 CREATININE (test code = 8138273676) 0.62 mg/dL 0.60-1.25 CALCIUM (test code = 9724214993) 8.5 mg/dL 8.6-10.6 L eGFR (test code = 69149-3) 98.4 mL/min/1.73m2 CKD-EPI eGFR (2020). Assuming creatinine has been stable day-to-day for at least three months, the eGFR indicates Category G1 (>= 90 mL/min/1.73 m2) Lab Interpretation (test code = 30405-0) Abnormal [facility] WITH [id number] 08:38:12* Test Item Value Reference Range Interpretation Comme nts WBC (test code = 6690-2) 7.22 See_Comment [[employer]ated [employer]] The system which generated this result transmitted reference range: 4.20 - 10.70 10*3/?L. The reference range was not used to interpret this result as normal/abnormal. RBC (test code = 789-8) 3.64 See_Comment L [[employer]ated [employer]] The system which generated this result transmitted [...] 32.0 g/dL 31.2-35.0 RDW-SD (test code = 50500-0) 50.4 fL 38.5-51.6 RDW-CV (test code = 788-0) 14.9 % 12.1-15.4 PLT (test code = 777-3) 171 See_Comment [[employer]] The system which generated this result transmitted reference range: 150 - 328 10*3/?L. The reference range was not used to interpret this result as normal/abnormal. MPV (test code = 29923-7) 8.5 fL 9.8-13.0 L NRBC/100 WBC (test code = 8423583829) 0.0 See_Comment [Automated me ssage] The system which generated this result transmitted reference range: 0.0 - 10.0 /100 WBCs. The reference range was not used to interpret this result as normal/abnormal. NRBC x10^3 (test code = 6390602132) See_Comment [Automated messa ge] The system which generated this result transmitted reference range: 10*3/?L. The reference range was not used to interpret this result as normal/abnormal. GRAN MAT (NEUT) % (test code = 770-8) 71.3 % IMM GRAN % (test code = 5124789354) 1.00 % LYMPH % (test code = 736-9) 19.3 % MONO % (test code = 5905-5) 6.9 % EOS % (test code = 713-8) 1.4 % BASO % (test code = 706-2) 0.1 % GRAN MAT x10^3(ANC) (test code = 0974851517) 5.15 10*3/uL 1.99-6.95 IMM GRAN x10^3 (test code = 4341452022) 0.07 10*3/uL 0.00-0.06 H LYMPH x10^3 (test code = 731-0) 1.39 10*3/uL 1.09-3.23 MONO x10^3 (test code = 742-7) 0.50 10*3/uL 0.36-1.02 EOS x10^3 (test code = 711-2) 0.10 10*3/uL 0.06-0.53 BASO x10^3 (test code = 704-7) 0.01-0.09 Lab Interpretation (test code = 69791-0) Abnormal [facility] METABOLIC PANEL (NA, K, CL, CO2, GLUCOSE, BUN, CREATININE, CA)2023-02-04 11:48:34* Test Item Value Reference Range Interpretation Comme nts NA (test code = 5551042925) 141 mmol/L 135-145 K (test code = 3473483255) 3.8 mmol/L 3.5-5.0 CL (test code = 5951921773) 109 mmol/L 98-108 H CO2 TOTAL (test code = 4929850852) 23 mmol/L 23-31 AGAP (test code = 0162116715) 9 2-16 BUN (test code = 2548551630) 27 mg/dL 7-23 H GLUCOSE (test code = 1232917849) 114 mg/dL 70-110 H CREATININE (test code = 4931001139) 0.65 mg/dL 0.60-1.25 CALCIUM (test code = 3149102260) 8.7 mg/dL 8.6-10.6 eGFR (test code = 03995-3) 97.0 mL/min/1.73m2 CKD-EPI eGFR (2020). Assuming creatinine has been stable day-to-day for at least three months, the eGFR indicates Category G1 (>= 90 mL/min/1.73 m2) Lab Interpretation (test code = 53852-4) Abnormal [facility] WITH [id number] 10:36:47* Test Item Value Reference Range Interpretation Comme nts WBC (test code = 6690-2) 9.11 See_Comment [Automated [employer]] The system which generated this result transmitted reference range: 4.20 - 10.70 10*3/?L. The reference range was not used to interpret this result as normal/abnormal. RBC (test code = 789-8) 3.59 See_Comment L [[employer]] The system which generated this result transmitted [...] 32.1 g/dL 31.2-35.0 RDW-SD (test code = 57088-8) 50.7 fL 38.5-51.6 RDW-CV (test code = 788-0) 14.7 % 12.1-15.4 PLT (test code = 777-3) 192 See_Comment [Automated messa ge] The system which generated this result transmitted reference range: 150 - 328 10*3/?L. The reference range was not used to interpret this result as normal/abnormal. MPV (test code = 57902-5) 8.6 fL 9.8-13.0 L NRBC/100 WBC (test code = 6406955508) 0.0 See_Comment [Automated [employer]] The system which generated this result transmitted reference range: 0.0 - 10.0 /100 WBCs. The reference range was not used to interpret this result as normal/abnormal. NRBC x10^3 (test code = 2190016747) See_Comment [Automated messa ge] The system which generated this result transmitted reference range: 10*3/?L. The reference range was not used to interpret this result as normal/abnormal. GRAN MAT (NEUT) % (test code = 770-8) 80.5 % IMM GRAN % (test code = 5158091107) 0.70 % LYMPH % (test code = 736-9) 10.6 % MONO % (test code = 5905-5) 7.9 % EOS % (test code = 713-8) 0.1 % BASO % (test code = 706-2) 0.2 % GRAN MAT x10^3(ANC) (test code = 8057428981) 7.33 10*3/uL 1.99-6.95 H IMM GRAN x10^3 (test code = 4913020374) 0.06 10*3/uL 0.00-0.06 LYMPH x10^3 (test code = 731-0) 0.97 10*3/uL 1.09-3.23 L MONO x10^3 (test code = 742-7) 0.72 10*3/uL 0.36-1.02 EOS x10^3 (test code = 711-2) 0.06-0.53 L BASO x10^3 (test code = 704-7) 0.01-0.09 Lab Interpretation (test code = 35236-0) [facility] 17:57:30* Test Item Value Reference Range Interpretation Comme nts Procalcitonin (test code = 0672179586) 0.06 ng/mL <=0.07 STEPHANIE (test code = [...] lung abscess/empyema. For further information please refer to:[email or web address] Lab Interpretation (test code = 04237-4) Normal [facility] with [id number] 12:23:54* Test Item Value Reference Range Interpretation Comme nts WBC (test code = 6690-2) 4.43 See_Comment [[employer]] The system which generated this result transmitted reference range: 4.20 - 10.70 10*3/?L. The reference range was not used to interpret this result as normal/abnormal. RBC (test code = 789-8) 3.88 See_Comment L [[employer]] The system which generated this result transmitted [...] 31.4 g/dL 31.2-35.0 RDW-SD (test code = 05710-5) 51.0 fL 38.5-51.6 RDW-CV (test code = 788-0) 14.6 % 12.1-15.4 PLT (test code = 777-3) 183 See_Comment [Automated messa ge] The system which generated this result transmitted reference range: 150 - 328 10*3/?L. The reference range was not used to interpret this result as normal/abnormal. MPV (test code = 76109-4) 8.5 fL 9.8-13.0 L NRBC/100 WBC (test code = 6595588289) 0.0 See_Comment [Automated me ssage] The system which generated this result transmitted reference range: 0.0 - 10.0 /100 WBCs. The reference range was not used to interpret this result as normal/abnormal. NRBC x10^3 (test code = 9809153334) See_Comment [Automated messa ge] The system which generated this result transmitted reference range: 10*3/?L. The reference range was not used to interpret this result as normal/abnormal. GRAN MAT (NEUT) % (test code = 770-8) 60.9 % IMM GRAN % (test code = 6746589452) 0.50 % LYMPH % (test code = 736-9) 18.1 % MONO % (test code = 5905-5) 20.3 % EOS % (test code = 713-8) 0.0 % BASO % (test code = 706-2) 0.2 % GRAN MAT x10^3(ANC) (test code = 1875399388) 2.70 10*3/uL 1.99-6.95 IMM GRAN x10^3 (test code = 6388394990) 0.00-0.06 LYMPH x10^3 (test code = 731-0) 0.80 10*3/uL 1.09-3.23 L MONO x10^3 (test code = 742-7) 0.90 10*3/uL 0.36-1.02 EOS x10^3 (test code = 711-2) 0.06-0.53 L BASO x10^3 (test code = 704-7) 0.01-0.09 Lab Interpretation (test code = 73786-1) Abnormal [facility] Metabolic Panel (NA, K, CL, CO2, GLUCOSE, BUN, CREATININE, CA)2023-02-03 10:51:24* Test Item Value Reference Range Interpretation Comme nts NA (test code = 2785169353) 140 mmol/L 135-145 K (test code = 2764528932) 4.0 mmol/L 3.5-5.0 CL (test code = 0499444087) 107 mmol/L 98-108 CO2 TOTAL (test code = 2231936376) 24 mmol/L 23-31 AGAP (test code = 5146027841) 9 2-16 BUN (test code = 7993810454) 24 mg/dL 7-23 H GLUCOSE (test code = 7957197981) 125 mg/dL 70-110 H CREATININE (test code = 7615959235) 0.69 mg/dL 0.60-1.25 CALCIUM (test code = 1279371577) 8.6 mg/dL 8.6-10.6 eGFR (test code = 56791-2) 95.3 mL/min/1.73m2 CKD-EPI eGFR (2020). Assuming creatinine has been stable day-to-day for at least three months, the eGFR indicates Category G1 (>= 90 mL/min/1.73 m2) Lab Interpretation (test code = 86926-6) Abnormal [facility]. METABOLIC PANEL (98254)2023-02-02 17:27:20* Test Item Value Reference Range Interpretation Comme nts NA (test code = 5101246953) 139 mmol/L 135-145 K (test code = 8018960398) 3.8 mmol/L 3.5-5.0 CL (test code = 0852678190) 106 mmol/L 98-108 CO2 TOTAL (test code = 0613785277) 24 mmol/L 23-31 AGAP (test code = 5493741665) 9 2-16 BUN (test code = 4121282259) 25 mg/dL 7-23 H GLUCOSE (test code = 1313647790) 112 mg/dL 70-110 H CREATININE (test code = 5669336578) 0.79 mg/dL 0.60-1.25 TOTAL BILI (test code = 3307630015) 0.3 mg/dL 0.1-1.1 CALCIUM (test code = 3039827291) 8.8 mg/dL 8.6-10.6 T PROTEIN (test code = 1708847166) 6.4 g/dL 6.3-8.2 ALBUMIN (test code = 1375681904) 3.2 g/dL 3.5-5.0 L ALK PHOS (test code = 2765672142) 65 U/L 34-122 ALTv (test code = 1742-6) 25 U/L 5-50 AST(SGOT) (test code = 7920816325) 30 U/L 13-40 eGFR (test code = 30819-5) 95.1 mL/min/1.73m2 STEPHANIE (test code = STEPHANIE) [...] imaging tests). Lab Interpretation (test code = 53226-3) Abnormal [facility] WITH [id number] 17:15:14* Test Item Value Reference Range Interpretation Comme nts WBC (test code = 6690-2) 4.49 See_Comment [Automated [employer]] The system which generated this result transmitted [...] 32.9 g/dL 31.2-35.0 RDW-SD (test code = 65728-6) 49.1 fL 38.5-51.6 RDW-CV (test code = 788-0) 14.6 % 12.1-15.4 PLT (test code = 777-3) 198 See_Comment [Automated messa ge] The system which generated this result transmitted reference range: 150 - 328 10*3/?L. The reference range was not used to interpret this result as normal/abnormal. MPV (test code = 88198-4) 8.4 fL 9.8-13.0 L NRBC/100 WBC (test code = 6195251531) 0.0 See_Comment [Automated [employer] ssage] The system which generated this result transmitted reference range: 0.0 - 10.0 /100 WBCs. The reference range was not used to interpret this result as normal/abnormal. NRBC x10^3 (test code = 7786627307) See_Comment [Automated messa ge] The system which generated this result transmitted reference range: 10*3/?L. The reference range was not used to interpret this result as normal/abnormal. GRAN MAT (NEUT) % (test code = 770-8) 68.4 % IMM GRAN % (test code = 1524415316) 0.20 % LYMPH % (test code = 736-9) 11.8 % MONO % (test code = 5905-5) 19.4 % EOS % (test code = 713-8) 0.0 % BASO % (test code = 706-2) 0.2 % GRAN MAT x10^3(ANC) (test code = 5138713297) 3.07 10*3/uL 1.99-6.95 IMM GRAN x10^3 (test code = 2547614597) 0.00-0.06 LYMPH x10^3 (test code = 731-0) 0.53 10*3/uL 1.09-3.23 L MONO x10^3 (test code = 742-7) 0.87 10*3/uL 0.36-1.02 EOS x10^3 (test code = 711-2) 0.06-0.53 L BASO x10^3 (test code = 704-7) 0.01-0.09 Lab Interpretation (test code = 26454-6) [facility] [id number] 21:47:26* Test Item Value Reference Range Interpretation Comme nts LACTIC ACID (test code = 8441045824) 1.46 mmol/L 0.50-2.20 Lab Interpretation (test cod e = 32265-0) [facility] [id number] 21:42:21* Test Item Value Reference Range Interpretation Comme nts ESR (test code = 24798-2) 16 See_Comment H [Automated messa ge] The system which generated this result transmitted reference range: 0 - 10 mm/HR. The reference range was not used to interpret this result as normal/abnormal. Lab Interpretation (test code = 62536-8) [facility] (28716)2023-01-25 21:24:38* Test Item Value Reference Range Interpretation Comme nts NA (test code = 5350534628) 143 mmol/L 135-145 K (test code = 3903859428) 3.9 mmol/L 3.5-5.0 CL (test code = 4516880008) 105 mmol/L 98-108 CO2 TOTAL (test code = 1039328054) 29 mmol/L 23-31 AGAP (test code = 4685573901) 9 2-16 BUN (test code = 2943059543) 38 mg/dL 7-23 H GLUCOSE (test code = 0420031928) 100 mg/dL 70-110 CREATININE (test code = 7648940187) 0.81 mg/dL 0.60-1.25 TOTAL BILI (test code = 2267569228) 0.2 mg/dL 0.1-1.1 CALCIUM (test code = 0290296911) 9.5 mg/dL 8.6-10.6 T PROTEIN (test code = 7126497643) 6.8 g/dL 6.3-8.2 ALBUMIN (test code = 2460631443) 3.7 g/dL 3.5-5.0 ALK PHOS (test code = 6697292766) 81 U/L 34-122 ALTv (test code = 1742-6) 22 U/L 5-50 AST(SGOT) (test code = 5083427258) 26 U/L 13-40 eGFR (test code = 3102182933) 92.4 mL/min/1.73m2 STEPHANIE (test code = STEPHANIE) [...] imaging tests). Lab Interpretation (test code = 43840-8) Abnormal [facility] WITH [id number] 20:59:14* Test Item Value Reference Range Interpretation Comme nts WBC (test code = 6690-2) 7.29 See_Comment [[employer]ated [employer]] The system which generated this result transmitted reference range: 4.20 - 10.70 10*3/?L. The reference range was not used to interpret this result as normal/abnormal. RBC (test code = 789-8) 4.52 See_Comment [[employer]ated [employer]] The system which generated this result transmitted [...] 32.1 g/dL 31.2-35.0 RDW-SD (test code = 64168-1) 49.1 fL 38.5-51.6 RDW-CV (test code = 788-0) 14.2 % 12.1-15.4 PLT (test code = 777-3) 202 See_Comment [[employer]ated [employer]] The system which generated this result transmitted reference range: 150 - 328 10*3/?L. The reference range was not used to interpret this result as normal/abnormal. MPV (test code = 01231-7) 8.8 fL 9.8-13.0 L NRBC/100 WBC (test code = 3767032441) 0.0 See_Comment [Automated [employer] ssage] The system which generated this result transmitted reference range: 0.0 - 10.0 /100 WBCs. The reference range was not used to interpret this result as normal/abnormal. NRBC x10^3 (test code = 1607140660) See_Comment [Automated messa ge] The system which generated this result transmitted reference range: 10*3/?L. The reference range was not used to interpret this result as normal/abnormal. GRAN MAT (NEUT) % (test code = 770-8) 72.5 % IMM GRAN % (test code = 0433749045) 0.30 % LYMPH % (test code = 736-9) 15.4 % MONO % (test code = 5905-5) 8.9 % EOS % (test code = 713-8) 2.6 % BASO % (test code = 706-2) 0.3 % GRAN MAT x10^3(ANC) (test code = 6406986806) 5.29 10*3/uL 1.99-6.95 IMM GRAN x10^3 (test code = 2777567928) 0.00-0.06 LYMPH x10^3 (test code = 731-0) 1.12 10*3/uL 1.09-3.23 MONO x10^3 (test code = 742-7) 0.65 10*3/uL 0.36-1.02 EOS x10^3 (test code = 711-2) 0.19 10*3/uL 0.06-0.53 BASO x10^3 (test code = 704-7) 0.01-0.09 Lab Interpretation (test code = 16585-4) [facility] CenterISAB[facility] [id number] 20:35:20* Test Item Value Reference Range Interpretation Comme nts TROPONIN I (test code = 6970467387) 0.006 ng/mL <=0.034 STEPHANIE (test code = [...] of biotin. Lab Interpretation (test code = 13731-3) Normal [facility] [id number] 20:33:03* Test Item Value Reference Range Interpretation Comme nts NT-proBNP (test code = 04113-2) 129 pg/mL <=125 STEPHANIE (test code = STEPHANIE) Result Indeterminate-Consid er causes of NT-proBNP elevation other than Heart failure such as acute coronary syndrome, pulmonary embolism, pulmonary hypertension, sepsis, stroke, and renal dysfunction. Lab Interpretation (test code = 68070-5) [facility] (49219)2023-01-20 20:23:37* Test Item Value Reference Range Interpretation Comme nts NA (test code = 8666704561) 142 mmol/L 135-145 K (test code = 2748506600) 4.8 mmol/L 3.5-5.0 CL (test code = 3575018136) 109 mmol/L 98-108 H CO2 TOTAL (test code = 3372581863) 26 mmol/L 23-31 AGAP (test code = 9639177993) 7 2-16 BUN (test code = 1917711077) 33 mg/dL 7-23 H GLUCOSE (test code = 9754741244) 123 mg/dL 70-110 H CREATININE (test code = 8948941743) 0.70 mg/dL 0.60-1.25 TOTAL BILI (test code = 4785170912) 0.5 mg/dL 0.1-1.1 CALCIUM (test code = 9641387006) 9.3 mg/dL 8.6-10.6 T PROTEIN (test code = 8490517603) 7.0 g/dL 6.3-8.2 ALBUMIN (test code = 3431049010) 3.8 g/dL 3.5-5.0 ALK PHOS (test code = 3103352277) 64 U/L 34-122 ALTv (test code = 1742-6) 22 U/L 5-50 AST(SGOT) (test code = 4720177452) 44 U/L 13-40 H eGFR (test code = 1572529154) 109.4 mL/min/1.73m2 STEPHANIE (test code = STEPHANIE) [...] imaging tests). Lab Interpretation (test code = 13019-0) [facility]2023-[facility]-17 20:23:37* Test Item Value Reference Range Interpretation Comme nts MAGNESIUM (test code = 6781210760) 2.2 mg/dL 1.7-2.4 Lab Interpretation (test cod e = 39829-2) [facility] WITH [id number] 20:10:16* Test Item Value Reference Range Interpretation Comme nts WBC (test code = 6690-2) 7.96 See_Comment [Automated [employer]] The system which generated this result transmitted reference range: 4.20 - 10.70 10*3/?L. The reference range was not used to interpret this result as normal/abnormal. RBC (test code = 789-8) 4.60 See_Comment [Automated [employer]] The system which generated this result transmitted [...] 32.6 g/dL 31.2-35.0 RDW-SD (test code = 13985-6) 47.1 fL 38.5-51.6 RDW-CV (test code = 788-0) 14.1 % 12.1-15.4 PLT (test code = 777-3) 221 See_Comment [Automated messa ge] The system which generated this result transmitted reference range: 150 - 328 10*3/?L. The reference range was not used to interpret this result as normal/abnormal. MPV (test code = 24481-0) 8.9 fL 9.8-13.0 L NRBC/100 WBC (test code = 4140427326) 0.0 See_Comment [Automated Age [employer] ssage] The system which generated this result transmitted reference range: 0.0 - 10.0 /100 WBCs. The reference range was not used to interpret this result as normal/abnormal. NRBC x10^3 (test code = 2922883265) See_Comment [Automated messa ge] The system which generated this result transmitted reference range: 10*3/?L. The reference range was not used to interpret this result as normal/abnormal. GRAN MAT (NEUT) % (test code = 770-8) 69.6 % IMM GRAN % (test code = 5896266743) 0.30 % LYMPH % (test code = 736-9) 18.3 % MONO % (test code = 5905-5) 10.2 % EOS % (test code = 713-8) 1.3 % BASO % (test code = 706-2) 0.3 % GRAN MAT x10^3(ANC) (test code = 6395888809) 5.55 10*3/uL 1.99-6.95 IMM GRAN x10^3 (test code = 1885006657) 0.00-0.06 LYMPH x10^3 (test code = 731-0) 1.46 10*3/uL 1.09-3.23 MONO x10^3 (test code = 742-7) 0.81 10*3/uL 0.36-1.02 EOS x10^3 (test code = 711-2) 0.10 10*3/uL 0.06-0.53 BASO x10^3 (test code = 704-7) 0.01-0.09 Lab Interpretation (test code = 10344-0) [facility]18126[facility]2022-[facility]-29 23:35:53* Test Item Value Reference Range Interpretation Comme nts NA (test code = 2596610796) 137 mmol/L 135-145 K (test code = 9765458972) 4.4 mmol/L 3.5-5.0 CL (test code = 8147761349) 103 mmol/L 98-108 CO2 TOTAL (test code = 8983990253) 26 mmol/L 23-31 AGAP (test code = 7759905305) 8 2-16 BUN (test code = 9809027019) 30 mg/dL 7-23 H GLUCOSE (test code = 4438346006) 124 mg/dL 70-110 H CREATININE (test code = 9437759142) 0.69 mg/dL 0.60-1.25 TOTAL BILI (test code = 5839903852) 0.3 mg/dL 0.1-1.1 CALCIUM (test code = 3890577026) 9.3 mg/dL 8.6-10.6 T PROTEIN (test code = 3288437144) 6.5 g/dL 6.3-8.2 ALBUMIN (test code = 1580427228) 3.6 g/dL 3.5-5.0 ALK PHOS (test code = 1018017068) 78 U/L 34-122 ALTv (test code = 1742-6) 21 U/L 5-50 AST(SGOT) (test code = 2181350130) 25 U/L 13-40 eGFR (test code = 8320003840) 111.2 mL/min/1.73m2 STEPHANIE (test code = STEPHANIE) [...] imaging tests). Lab Interpretation (test code = 23733-3) Abnormal [facility] WITH [id number] 23:22:49* Test Item Value Reference Range Interpretation Comme nts WBC (test code = 6690-2) 5.98 See_Comment [Automated [employer]] The system which generated this result transmitted reference range: 4.20 - 10.70 10*3/?L. The reference range was not used to interpret this result as normal/abnormal. RBC (test code = 789-8) 4.09 See_Comment L [Automated [employer]] The system which generated this result transmitted [...] 34.2 g/dL 31.2-35.0 RDW-SD (test code = 85603-9) 45.1 fL 38.5-51.6 RDW-CV (test code = 788-0) 13.9 % 12.1-15.4 PLT (test code = 777-3) 210 See_Comment [Automated [employer]] The system which generated this result transmitted reference range: 150 - 328 10*3/?L. The reference range was not used to interpret this result as normal/abnormal. MPV (test code = 44345-7) 8.4 fL 9.8-13.0 L NRBC/100 WBC (test code = 5639572845) 0.0 See_Comment [Automated [employer]] The system which generated this result transmitted reference range: 0.0 - 10.0 /100 WBCs. The reference range was not used to interpret this result as normal/abnormal. NRBC x10^3 (test code = 7762029845) See_Comment [Automated [employer]] The system which generated this result transmitted reference range: 10*3/?L. The reference range was not used to interpret this result as normal/abnormal. GRAN MAT (NEUT) % (test code = 770-8) 68.8 % IMM GRAN % (test code = 3882422314) 0.20 % LYMPH % (test code = 736-9) 18.6 % MONO % (test code = 5905-5) 8.7 % EOS % (test code = 713-8) 3.0 % BASO % (test code = 706-2) 0.7 % GRAN MAT x10^3(ANC) (test code = 4861789108) 4.12 10*3/uL 1.99-6.95 IMM GRAN x10^3 (test code = 4484383052) 0.00-0.06 LYMPH x10^3 (test code = 731-0) 1.11 10*3/uL 1.09-3.23 MONO x10^3 (test code = 742-7) 0.52 10*3/uL 0.36-1.02 EOS x10^3 (test code = 711-2) 0.18 10*3/uL 0.06-0.53 BASO x10^3 (test code = 704-7) 0.04 10*3/uL 0.01-0.09 Lab Interpretation (test code = 40730-7) [facility] 21:19:14* Test Item Value Reference Range Interpretation Comme nts NA (test code = 8876981448) 135 mmol/L 135-145 K (test code = 3105890601) 4.1 mmol/L 3.5-5.0 CL (test code = 2823951581) 102 mmol/L 98-108 CO2 TOTAL (test code = 6891179174) 27 mmol/L 23-31 AGAP (test code = 5325266540) 6 2-16 BUN (test code = 9455923955) 23 mg/dL 7-23 GLUCOSE (test code = 5524593920) 97 mg/dL 70-110 CREATININE (test code = 9751994268) 0.54 mg/dL 0.60-1.25 L TOTAL BILI (test code = 6500627756) 0.4 mg/dL 0.1-1.1 CALCIUM (test code = 7283967704) 8.9 mg/dL 8.6-10.6 T PROTEIN (test code = 5268242431) 6.5 g/dL 6.3-8.2 ALBUMIN (test code = 9760565621) 3.6 g/dL 3.5-5.0 ALK PHOS (test code = 9912983606) 70 U/L 34-122 ALTv (test code = 1742-6) 20 U/L 5-50 AST(SGOT) (test code = 0218645714) 36 U/L 13-40 eGFR (test code = 9168474287) 147.5 mL/min/1.73m2 STEPHANIE (test code = STEPHANIE) [...] imaging tests). Lab Interpretation (test code = 75535-5) Abnormal [facility] WITH [id number] 20:32:47* Test Item Value Reference Range Interpretation Comme nts WBC (test code = 6690-2) 9.43 See_Comment [Automated [employer]] The system which generated this result transmitted reference range: 4.20 - 10.70 10*3/?L. The reference range was not used to interpret this result as normal/abnormal. RBC (test code = 789-8) 4.13 See_Comment L [Automated [employer]] The system which generated this result transmitted [...] 33.8 g/dL 31.2-35.0 RDW-SD (test code = 10447-5) 45.9 fL 38.5-51.6 RDW-CV (test code = 788-0) 14.0 % 12.1-15.4 PLT (test code = 777-3) 171 See_Comment [Automated messa ge] The system which generated this result transmitted reference range: 150 - 328 10*3/?L. The reference range was not used to interpret this result as normal/abnormal. MPV (test code = 65017-6) 8.5 fL 9.8-13.0 L NRBC/100 WBC (test code = 7347001102) 0.0 See_Comment [Automated [employer]] The system which generated this result transmitted reference range: 0.0 - 10.0 /100 WBCs. The reference range was not used to interpret this result as normal/abnormal. NRBC x10^3 (test code = 7020807113) See_Comment [Automated [employer]] The system which generated this result transmitted reference range: 10*3/?L. The reference range was not used to interpret this result as normal/abnormal. GRAN MAT (NEUT) % (test code = 770-8) 79.4 % IMM GRAN % (test code = 8701749855) 0.20 % LYMPH % (test code = 736-9) 9.1 % MONO % (test code = 5905-5) 8.4 % EOS % (test code = 713-8) 2.7 % BASO % (test code = 706-2) 0.2 % GRAN MAT x10^3(ANC) (test code = 4094450302) 7.49 10*3/uL 1.99-6.95 H IMM GRAN x10^3 (test code = 0490749820) 0.00-0.06 LYMPH x10^3 (test code = 731-0) 0.86 10*3/uL 1.09-3.23 L MONO x10^3 (test code = 742-7) 0.79 10*3/uL 0.36-1.02 EOS x10^3 (test code = 711-2) 0.25 10*3/uL 0.06-0.53 BASO x10^3 (test code = 704-7) 0.01-0.09 Lab Interpretation (test code = 33313-0) Abnormal [facility] METABOLIC PANEL (NA, K, CL, CO2, GLUCOSE, BUN, CREATININE, CA)2022-10-30 09:42:32* Test Item Value Reference Range Interpretation Comme nts NA (test code = 4825032844) 135 mmol/L 135-145 K (test code = 1533102180) 4.3 mmol/L 3.5-5.0 CL (test code = 5768449532) 105 mmol/L 98-108 CO2 TOTAL (test code = 8093274851) 25 mmol/L 23-31 AGAP (test code = 7486573897) 5 2-16 BUN (test code = 4026377086) 12 mg/dL 7-23 GLUCOSE (test code = 4205929555) 104 mg/dL 70-110 CREATININE (test code = 3922326071) 0.59 mg/dL 0.60-1.25 L CALCIUM (test code = 0880167360) 8.8 mg/dL 8.6-10.6 eGFR (test code = 8871120344) 133.2 mL/min/1.73m2 STEPHANIE (test code = STEPHANIE) [...] imaging tests). Lab Interpretation (test code = 07347-3) [facility] 09:42:32* Test Item Value Reference Range Interpretation Comme nts MAGNESIUM (test code = 1085534073) 2.0 mg/dL 1.7-2.4 Lab Interpretation (test cod e = 77697-9) Normal [facility] WITH [id number] 09:34:52* Test Item Value Reference Range Interpretation Comme nts WBC (test code = 6690-2) 5.97 See_Comment [[employer]ated [employer]] The system which generated this result transmitted reference range: 4.20 - 10.70 10*3/?L. The reference range was not used to interpret this result as normal/abnormal. RBC (test code = 789-8) 3.81 See_Comment L [[employer]ated [employer]] The system which generated this result transmitted [...] 33.2 g/dL 31.2-35.0 RDW-SD (test code = 68343-1) 44.7 fL 38.5-51.6 RDW-CV (test code = 788-0) 13.5 % 12.1-15.4 PLT (test code = 777-3) 207 See_Comment [Automated messa ge] The system which generated this result transmitted reference range: 150 - 328 10*3/?L. The reference range was not used to interpret this result as normal/abnormal. MPV (test code = 47597-8) 8.4 fL 9.8-13.0 L NRBC/100 WBC (test code = 5558384839) 0.0 See_Comment [Automated [employer]] The system which generated this result transmitted reference range: 0.0 - 10.0 /100 WBCs. The reference range was not used to interpret this result as normal/abnormal. NRBC x10^3 (test code = 3936685041) See_Comment [Automated messa ge] The system which generated this result transmitted reference range: 10*3/?L. The reference range was not used to interpret this result as normal/abnormal. GRAN MAT (NEUT) % (test code = 770-8) 69.1 % IMM GRAN % (test code = 7953832383) 0.20 % LYMPH % (test code = 736-9) 17.3 % MONO % (test code = 5905-5) 9.7 % EOS % (test code = 713-8) 3.2 % BASO % (test code = 706-2) 0.5 % GRAN MAT x10^3(ANC) (test code = 0553078852) 4.13 10*3/uL 1.99-6.95 IMM GRAN x10^3 (test code = 6879229514) 0.00-0.06 LYMPH x10^3 (test code = 731-0) 1.03 10*3/uL 1.09-3.23 L MONO x10^3 (test code = 742-7) 0.58 10*3/uL 0.36-1.02 EOS x10^3 (test code = 711-2) 0.19 10*3/uL 0.06-0.53 BASO x10^3 (test code = 704-7) 0.03 10*3/uL 0.01-0.09 Lab Interpretation (test code = 46936-9) Abnormal [facility] GLUCOSE (AUTOMATED)2022-10-29 13:19:23* Test Item Value Reference Range Interpretation Comme [facility] POCT GLU (test code = 5852114888) 99 mg/dL 70-110 Lab Interpretation (test cod e = 44949-4) Normal [facility] METABOLIC PANEL (NA, K, CL, CO2, GLUCOSE, BUN, CREATININE, CA)2022-10-29 08:19:42* Test Item Value Reference Range Interpretation Comme [facility] NA (test code = 0304285735) 132 mmol/L 135-145 L K (test code = 7288562835) 4.8 mmol/L 3.5-5.0 CL (test code = 9068643495) 102 mmol/L 98-108 CO2 TOTAL (test code = 3107989024) 25 mmol/L 23-31 AGAP (test code = 0053286771) 5 2-16 BUN (test code = 4328455120) 18 mg/dL 7-23 GLUCOSE (test code = 9137042881) 109 mg/dL 70-110 CREATININE (test code = 9909236008) 0.60 mg/dL 0.60-1.25 CALCIUM (test code = 4344656497) 8.8 mg/dL 8.6-10.6 eGFR (test code = 4312633375) 130.6 mL/min/1.73m2 STEPHANIE (test code = STEPHANIE) [...] imaging tests). Lab Interpretation (test code = 47430-3) [facility] 08:19:42* Test Item Value Reference Range Interpretation Comme nts MAGNESIUM (test code = 5389551516) 1.9 mg/dL 1.7-2.4 Lab Interpretation (test cod e = 79024-2) Normal [facility] WITH [id number] 08:00:22* Test Item Value Reference Range Interpretation Comme nts WBC (test code = 6690-2) 8.45 See_Comment [[employer]ated [employer]] The system which generated this result transmitted reference range: 4.20 - 10.70 10*3/?L. The reference range was not used to interpret this result as normal/abnormal. RBC (test code = 789-8) 3.98 See_Comment L [[employer]ated [employer]] The system which generated this result transmitted [...] 33.8 g/dL 31.2-35.0 RDW-SD (test code = 57672-9) 44.5 fL 38.5-51.6 RDW-CV (test code = 788-0) 13.6 % 12.1-15.4 PLT (test code = 777-3) 195 See_Comment [Automated messa ge] The system which generated this result transmitted reference range: 150 - 328 10*3/?L. The reference range was not used to interpret this result as normal/abnormal. MPV (test code = 16986-4) 8.7 fL 9.8-13.0 L NRBC/100 WBC (test code = 9738333560) 0.0 See_Comment [Automated me ssage] The system which generated this result transmitted reference range: 0.0 - 10.0 /100 WBCs. The reference range was not used to interpret this result as normal/abnormal. NRBC x10^3 (test code = 2443264155) See_Comment [Automated messa ge] The system which generated this result transmitted reference range: 10*3/?L. The reference range was not used to interpret this result as normal/abnormal. GRAN MAT (NEUT) % (test code = 770-8) 75.3 % IMM GRAN % (test code = 1578494522) 0.20 % LYMPH % (test code = 736-9) 15.1 % MONO % (test code = 5905-5) 8.5 % EOS % (test code = 713-8) 0.7 % BASO % (test code = 706-2) 0.2 % GRAN MAT x10^3(ANC) (test code = 1440667033) 6.35 10*3/uL 1.99-6.95 IMM GRAN x10^3 (test code = 1255261392) 0.00-0.06 LYMPH x10^3 (test code = 731-0) 1.28 10*3/uL 1.09-3.23 MONO x10^3 (test code = 742-7) 0.72 10*3/uL 0.36-1.02 EOS x10^3 (test code = 711-2) 0.06 10*3/uL 0.06-0.53 BASO x10^3 (test code = 704-7) 0.01-0.09 Lab Interpretation (test code = 98631-3) Abnormal [facility] GLUCOSE (AUTOMATED)2022-10-29 02:05:51* Test Item Value Reference Range Interpretation Comme nts POCT GLU (test code = 8444563855) 162 mg/dL 70-110 H Lab Interpretation (test cod e = 35181-8) [facility]-28 21:27:56* Test Item Value Reference Range Interpretation Comme nts POCT GLU (test code = 2933733748) 104 mg/dL 70-110 Lab Interpretation (test cod e = 20576-0) [facility]20[facility] 20:41:29* Test Item Value Reference Range Interpretation Comme nts Procalcitonin (test code = 6293722219) 0.12 ng/mL <=0.07 H STEPHANIE (test code [...] lung abscess/empyema. For further information please refer to:[email or web address] Lab Interpretation (test code = 16350-9) [facility] (NA, K, CL, CO2, GLUCOSE, BUN, CREATININE, CA)2022-10-28 17:04:09* Test Item Value Reference Range Interpretation Comme nts NA (test code = 8398969648) 133 mmol/L 135-145 L K (test code = 7570525933) 3.9 mmol/L 3.5-5.0 CL (test code = 3347144656) 103 mmol/L 98-108 CO2 TOTAL (test code = 2311289333) 26 mmol/L 23-31 AGAP (test code = 4977426164) 4 2-16 BUN (test code = 7132700166) 18 mg/dL 7-23 GLUCOSE (test code = 3257220216) 118 mg/dL 70-110 H CREATININE (test code = 3981574873) 0.59 mg/dL 0.60-1.25 L CALCIUM (test code = 0848092994) 8.5 mg/dL 8.6-10.6 L eGFR (test code = 7164375637) 133.2 mL/min/1.73m2 STEPHANIE (test code = STEPHANIE) [...] imaging tests). Lab Interpretation (test code = 27424-4) [facility]2022-10-28 16:57:29* Test Item Value Reference Range Interpretation Comme [facility] POCT GLU (test code = 7880812256) 98 mg/dL 70-110 Lab Interpretation (test cod e = 91472-5) Normal [facility] WITH [id number] 16:01:20* Test Item Value Reference Range Interpretation Comme [facility] WBC (test code = 6690-2) 8.13 See_Comment [Automated [employer]] The system which generated this result transmitted [...] 33.9 g/dL 31.2-35.0 RDW-SD (test code = 61199-0) 44.5 fL 38.5-51.6 RDW-CV (test code = 788-0) 13.6 % 12.1-15.4 PLT (test code = 777-3) 166 See_Comment [Automated messa ge] The system which generated this result transmitted reference range: 150 - 328 10*3/?L. The reference range was not used to interpret this result as normal/abnormal. MPV (test code = 49314-2) 8.6 fL 9.8-13.0 L NRBC/100 WBC (test code = 5237099347) 0.0 See_Comment [Automated me ssage] The system which generated this result transmitted reference range: 0.0 - 10.0 /100 WBCs. The reference range was not used to interpret this result as normal/abnormal. NRBC x10^3 (test code = 4075582514) See_Comment [Automated messa ge] The system which generated this result transmitted reference range: 10*3/?L. The reference range was not used to interpret this result as normal/abnormal. GRAN MAT (NEUT) % (test code = 770-8) 77.6 % IMM GRAN % (test code = 6771880218) 0.20 % LYMPH % (test code = 736-9) 11.1 % MONO % (test code = 5905-5) 10.8 % EOS % (test code = 713-8) 0.2 % BASO % (test code = 706-2) 0.1 % GRAN MAT x10^3(ANC) (test code = 6832329620) 6.30 10*3/uL 1.99-6.95 IMM GRAN x10^3 (test code = 5607131249) 0.00-0.06 LYMPH x10^3 (test code = 731-0) 0.90 10*3/uL 1.09-3.23 L MONO x10^3 (test code = 742-7) 0.88 10*3/uL 0.36-1.02 EOS x10^3 (test code = 711-2) 0.06-0.53 L BASO x10^3 (test code = 704-7) 0.01-0.09 Lab Interpretation (test code = 54154-5) [facility]normal [facility] CenterLamd[facility] Acid Whole [id number] 15:43:36* Test Item Value Reference Range Interpretation Comme nts LACTIC ACID (test code = 7619390859) 1.48 mmol/L 0.50-2.20 Lab Interpretation (test cod e = 24850-3) [facility]2022-10-28 13:55:42* Test Item Value Reference Range Interpretation Comme nts POCT GLU (test code = 9504699331) 108 mg/dL 70-110 Lab Interpretation (test cod e = 97606-1) Normal [facility] CenterGlycosylated Hemoglobin (A1C)2022-10-28 13:35:21* Test Item Value Reference Range Interpretation Comme nts HGB A1C (test code = 4548-4) 5.4 % 4.0-5.7 STEPHANIE (test code = STEPHANIE) Reference RangesNormal: <5.7%Prediabetes: 5.7 - 6.4%Diabetes: > 6.5% Lab Interpretation (test code = 60842-2) [facility] 12:48:08* Test Item Value Reference Range Interpretation Comme nts MAGNESIUM (test code = 0944370590) 2.0 mg/dL 1.7-2.4 Lab Interpretation (test cod e = 65426-8) [facility] CenterTR[facility] [id number] 04:32:06* Test Item Value Reference Range Interpretation Comme nts TROPONIN I (test code = 2185099527) 0.029 ng/mL <=0.034 STEPHANIE (test code = [...] of biotin. Lab Interpretation (test code = 16298-8) Normal [facility]. METABOLIC PANEL (10687)2022-10-28 04:21:43* Test Item Value Reference Range Interpretation Comme nts NA (test code = 8538071328) 133 mmol/L 135-145 L K (test code = 2155768227) 4.2 mmol/L 3.5-5.0 CL (test code = 2959471917) 100 mmol/L 98-108 CO2 TOTAL (test code = 9082122841) 23 mmol/L 23-31 AGAP (test code = 8086071496) 10 2-16 BUN (test code = 8161872070) 24 mg/dL 7-23 H GLUCOSE (test code = 3681245196) 217 mg/dL 70-110 H CREATININE (test code = 8760092854) 0.79 mg/dL 0.60-1.25 TOTAL BILI (test code = 8049091295) 0.5 mg/dL 0.1-1.1 CALCIUM (test code = 7850433285) 8.6 mg/dL 8.6-10.6 T PROTEIN (test code = 6573942080) 6.6 g/dL 6.3-8.2 ALBUMIN (test code = 1655951816) 3.6 g/dL 3.5-5.0 ALK PHOS (test code = 5435818285) 76 U/L 34-122 ALTv (test code = 1742-6) 20 U/L 5-50 AST(SGOT) (test code = 7321395985) 31 U/L 13-40 eGFR (test code = 9104877595) 95.1 mL/min/1.73m2 STEPHANIE (test code = STEPHANIE) [...] imaging tests). Lab Interpretation (test code = 39956-2) Abnormal [facility] WITH [id number] 03:55:19* Test Item Value Reference Range Interpretation [...] 33.9 g/dL 31.2-35.0 RDW-SD (test code = 40187-4) 44.8 fL 38.5-51.6 RDW-CV (test code = 788-0) 13.6 % 12.1-15.4 PLT (test code = 777-3) 189 See_Comment [Automated message] The system which generated this result transmitted reference range: 150 - 328 10*3/?L. The reference range was not used to interpret this result as normal/abnormal. MPV (test code = 07944-6) 8.7 fL 9.8-13.0 L NRBC/100 WBC (test code = 4308154445) 0.0 See_Comment [Automated message] The system which generated this result transmitted reference range: 0.0 - 10.0 /100 WBCs. The reference range was not used to interpret this result as normal/abnormal. NRBC x10^3 (test code = 7997672783) See_Comment [Automated message] The system which generated this result transmitted reference range: 10*3/?L. The reference range was not used to interpret this result as normal/abnormal. GRAN MAT (NEUT) % (test code = 770-8) 83.5 % IMM GRAN % (test code = 3147647259) 0.60 % LYMPH % (test code = 736-9) 6.0 % MONO % (test code = 5905-5) 9.6 % EOS % (test code = 713-8) 0.1 % BASO % (test code = 706-2) 0.2 % GRAN MAT x10^3(ANC) (test code = 9118299826) 10.59 10*3/uL 1.99-6.95 H IMM GRAN x10^3 (test code = 0385527376) 0.08 10*3/uL 0.00-0.06 H LYMPH x10^3 (test code = 731-0) 0.76 10*3/uL 1.09-3.23 L MONO x10^3 (test code = 742-7) 1.21 10*3/uL 0.36-1.02 H EOS x10^3 (test code = 711-2) 0.06-0.53 L BASO x10^3 (test code = 704-7) 0.01-0.09 Lab Interpretation (test code = 44198-5) Abnormal [facility] CULTURE [id number] 03:02:22* Test Item Value Reference Range Interpretation Comme nts Blood Culture-Aerobic (test code = 44067-7) No organisms isolated No growth Previous preliminary [...] 2201 CDT Blood Culture-Anaerobic (test code = 51436-6) No organisms isolated No growth Previous preliminary [...] 2201 CDT Lab Interpretation (test code = 26095-1) Normal [facility] CULTURE [id number] 03:02:22* Test Item Value Reference Range Interpretation Comme nts Blood Culture-Aerobic (test code = 95736-9) No organisms isolated No growth Previous preliminary [...] 2201 CDT Blood Culture-Anaerobic (test code = 68840-7) No organisms isolated No growth Previous preliminary [...] 2201 CDT Lab Interpretation (test code = 78734-6) [facility] (02821)2022-07-21 03:19:43* Test Item Value Reference Range Interpretation Comme nts NA (test code = 4461902202) 137 mmol/L 135-145 K (test code = 3618384193) 4.6 mmol/L 3.5-5.0 CL (test code = 4926801411) 102 mmol/L 98-108 CO2 TOTAL (test code = 5352531544) 25 mmol/L 23-31 AGAP (test code = 8893767045) 10 2-16 BUN (test code = 0521622854) 16 mg/dL 7-23 GLUCOSE (test code = 8664327038) 147 mg/dL 70-110 H CREATININE (test code = 3021573283) 1.06 mg/dL 0.60-1.25 TOTAL BILI (test code = 7074133936) 0.4 mg/dL 0.1-1.1 CALCIUM (test code = 0638480343) 9.3 mg/dL 8.6-10.6 T PROTEIN (test code = 1897236237) 6.3 g/dL 6.3-8.2 ALBUMIN (test code = 0232582746) 3.7 g/dL 3.5-5.0 ALK PHOS (test code = 4410622078) 85 U/L 34-122 ALTv (test code = 1742-6) 19 U/L 5-50 AST(SGOT) (test code = 7785981992) 23 U/L 13-40 eGFR (test code = 4340387069) 67.7 mL/min/1.73m2 STEPHANIE (test code = STEPHANIE) [...] imaging tests). Lab Interpretation (test code = 83693-4) [facility] CenterSEDIMENTATION [id number] 03:10:02* Test Item Value Reference Range Interpretation Comme nts ESR (test code = 81012-4) 20 See_Comment H [[employer]ated [employer]] The system which generated this result transmitted reference range: 0 - 10 mm/HR. The reference range was not used to interpret this result as normal/abnormal. Lab Interpretation (test code = 46333-3) Abnormal [facility] WITH [id number] 02:50:23* Test Item Value Reference Range Interpretation Comme nts WBC (test code = 6690-2) 8.04 See_Comment [[employer]ated [employer]] The system which generated this result transmitted [...] 32.6 g/dL 31.2-35.0 RDW-SD (test code = 13688-1) 46.5 fL 38.5-51.6 RDW-CV (test code = 788-0) 13.5 % 12.1-15.4 PLT (test code = 777-3) 239 See_Comment [Automated messa ge] The system which generated this result transmitted reference range: 150 - 328 10*3/?L. The reference range was not used to interpret this result as normal/abnormal. MPV (test code = 30460-2) 8.6 fL 9.8-13.0 L NRBC/100 WBC (test code = 3750171091) 0.0 See_Comment [Automated [employer] ssage] The system which generated this result transmitted reference range: 0.0 - 10.0 /100 WBCs. The reference range was not used to interpret this result as normal/abnormal. NRBC x10^3 (test code = 6990436766) See_Comment [Automated messa ge] The system which generated this result transmitted reference range: 10*3/?L. The reference range was not used to interpret this result as normal/abnormal. GRAN MAT (NEUT) % (test code = 770-8) 79.8 % IMM GRAN % (test code = 5741180687) 0.50 % LYMPH % (test code = 736-9) 11.8 % MONO % (test code = 5905-5) 6.8 % EOS % (test code = 713-8) 0.7 % BASO % (test code = 706-2) 0.4 % GRAN MAT x10^3(ANC) (test code = 6223237870) 6.41 10*3/uL 1.99-6.95 IMM GRAN x10^3 (test code = 9375933003) 0.04 10*3/uL 0.00-0.06 LYMPH x10^3 (test code = 731-0) 0.95 10*3/uL 1.09-3.23 L MONO x10^3 (test code = 742-7) 0.55 10*3/uL 0.36-1.02 EOS x10^3 (test code = 711-2) 0.06 10*3/uL 0.06-0.53 BASO x10^3 (test code = 704-7) 0.03 10*3/uL 0.01-0.09 Lab Interpretation (test code = 16639-3) [id number]:13:33* Test Item Value Reference Range Interpretation Comme nts ESR (test code = 07426-0) 11 See_Comment H [Automated messa ge] The system which generated this result transmitted reference range: 0 - 10 mm/HR. The reference range was not used to interpret this result as normal/abnormal. Lab Interpretation (test code = 82863-6) [facility] (75230)2022-07-18 20:55:16* Test Item Value Reference Range Interpretation Comme nts NA (test code = 7299768582) 135 mmol/L 135-145 K (test code = 3137135743) 4.7 mmol/L 3.5-5.0 CL (test code = 8876434776) 103 mmol/L 98-108 CO2 TOTAL (test code = 8291782203) 23 mmol/L 23-31 AGAP (test code = 1444512998) 9 2-16 BUN (test code = 1580084441) 15 mg/dL 7-23 GLUCOSE (test code = 1881808581) 89 mg/dL 70-110 CREATININE (test code = 7211585505) 0.71 mg/dL 0.60-1.25 TOTAL BILI (test code = 8218275560) 0.5 mg/dL 0.1-1.1 CALCIUM (test code = 8620940609) 8.9 mg/dL 8.6-10.6 T PROTEIN (test code = 2251853148) 6.1 g/dL 6.3-8.2 L ALBUMIN (test code = 7919095802) 3.5 g/dL 3.5-5.0 ALK PHOS (test code = 3137464218) 82 U/L 34-122 ALTv (test code = 1742-6) 18 U/L 5-50 AST(SGOT) (test code = 1908660008) 24 U/L 13-40 eGFR (test code = 2401349978) 107.6 mL/min/1.73m2 STEPHANIE (test code = STEPHANIE) [...] imaging tests). Lab Interpretation (test code = 99291-4) Abnormal [facility] WITH IKCE7071-76-85 20:37:13* Test Item Value Reference Range Interpretation Comme nts WBC (test code = 6690-2) 6.41 See_Comment [Automated [employer]] The system which generated this result [...] 32.9 g/dL 31.2-35.0 RDW-SD (test code = 81113-0) 45.5 fL 38.5-51.6 RDW-CV (test code = 788-0) 13.4 % 12.1-15.4 PLT (test code = 777-3) 246 See_Comment [Automated [employer]] The system which generated this result transmitted reference range: 150 - 328 10*3/?L. The reference range was not used to interpret this result as normal/abnormal. MPV (test code = 13013-0) 8.7 fL 9.8-13.0 L IPF % (test code = 1718937435) 0.8 % 1.2-10.7 L Platelet count measured by fluorescence method. NRBC/100 WBC (test code = 8343245391) 0.0 See_Comment [Automated [employer] ssage] The system which generated this result transmitted reference range: 0.0 - 10.0 /100 WBCs. The reference range was not used to interpret this result as normal/abnormal. NRBC x10^3 (test code = 2213710805) See_Comment [Automated [employer]] The system which generated this result transmitted reference range: 10*3/?L. The reference range was not used to interpret this result as normal/abnormal. GRAN MAT (NEUT) % (test code = 770-8) 70.9 % IMM GRAN % (test code = 7812135974) 0.30 % LYMPH % (test code = 736-9) 18.3 % MONO % (test code = 5905-5) 8.1 % EOS % (test code = 713-8) 1.9 % BASO % (test code = 706-2) 0.5 % GRAN MAT x10^3(ANC) (test code = 6379082388) 4.55 10*3/uL 1.99-6.95 IMM GRAN x10^3 (test code = 4687287744) 0.00-0.06 LYMPH x10^3 (test code = 731-0) 1.17 10*3/uL 1.09-3.23 MONO x10^3 (test code = 742-7) 0.52 10*3/uL 0.36-1.02 EOS x10^3 (test code = 711-2) 0.12 10*3/uL 0.06-0.53 BASO x10^3 (test code = 704-7) 0.03 10*3/uL 0.01-0.09 Lab Interpretation (test code = 22007-6) [id number] 17:59:56* Test Item Value Reference Range Interpretation Comme nts TROPONIN I (test code = 9948688043) 0.008 ng/mL <=0.034 STEPHANIE (test code = [...] of biotin. Lab Interpretation (test code = 67424-8) [facility] 17:48:33* Test Item Value Reference Range Interpretation Comme nts MAGNESIUM (test code = 5904118661) 1.9 mg/dL 1.7-2.4 Lab Interpretation (test cod e = 29113-8) [facility] (41596)2022-06-10 17:48:14* Test Item Value Reference Range Interpretation Comme nts NA (test code = 7400073009) 135 mmol/L 135-145 K (test code = 2638148385) 4.2 mmol/L 3.5-5.0 CL (test code = 0115250385) 104 mmol/L 98-108 CO2 TOTAL (test code = 2396451366) 24 mmol/L 23-31 AGAP (test code = 3351536566) 7 2-16 BUN (test code = 9475115888) 13 mg/dL 7-23 GLUCOSE (test code = 7901381328) 129 mg/dL 70-110 H CREATININE (test code = 7318269082) 0.67 mg/dL 0.60-1.25 TOTAL BILI (test code = 7170533848) 0.6 mg/dL 0.1-1.1 CALCIUM (test code = 3191639801) 8.5 mg/dL 8.6-10.6 L T PROTEIN (test code = 0861379325) 6.0 g/dL 6.3-8.2 L ALBUMIN (test code = 4106283230) 3.2 g/dL 3.5-5.0 L ALK PHOS (test code = 9099323674) 82 U/L 34-122 ALTv (test code = 1742-6) 28 U/L 5-50 AST(SGOT) (test code = 4422044163) 71 U/L 13-40 H eGFR (test code = 3802634550) 115.0 mL/min/1.73m2 STEPHANIE (test code = STEPHANIE) [...] imaging tests). Lab Interpretation (test code = 63986-2) [facility] 17:47:53* Test Item Value Reference Range Interpretation Comme nts LIPASE (test code = 2409590660) 124 U/L 0-220 Lab Interpretation (test cod e = 53888-3) [facility] WITH WIIJ1727-33-25 17:34:30* Test Item Value Reference Range Interpretation Comme nts WBC (test code = 6690-2) 8.77 See_Comment [Automated [employer]] The system which generated this result transmitted reference range: 4.20 - 10.70 10*3/?L. The reference range was not used to interpret this result as normal/abnormal. RBC (test code = 789-8) 4.06 See_Comment L [[employer]] The system which generated this result transmitted [...] 34.1 g/dL 31.2-35.0 RDW-SD (test code = 22644-6) 42.5 fL 38.5-51.6 RDW-CV (test code = 788-0) 12.8 % 12.1-15.4 PLT (test code = 777-3) 297 See_Comment [[employer]] The system which generated this result transmitted reference range: 150 - 328 10*3/?L. The reference range was not used to interpret this result as normal/abnormal. MPV (test code = 16394-5) 8.1 fL 9.8-13.0 L NRBC/100 WBC (test code = 0053042467) 0.0 See_Comment [Automated [employer] ssage] The system which generated this result transmitted reference range: 0.0 - 10.0 /100 WBCs. The reference range was not used to interpret this result as normal/abnormal. NRBC x10^3 (test code = 9011526779) See_Comment [[employer]] The system which generated this result transmitted reference range: 10*3/?L. The reference range was not used to interpret this result as normal/abnormal. GRAN MAT (NEUT) % (test code = 770-8) 81.2 % IMM GRAN % (test code = 4075131499) 0.20 % LYMPH % (test code = 736-9) 9.5 % MONO % (test code = 5905-5) 7.8 % EOS % (test code = 713-8) 1.0 % BASO % (test code = 706-2) 0.3 % GRAN MAT x10^3(ANC) (test code = 8304467105) 7.12 10*3/uL 1.99-6.95 H IMM GRAN x10^3 (test code = 3975724023) 0.00-0.06 LYMPH x10^3 (test code = 731-0) 0.83 10*3/uL 1.09-3.23 L MONO x10^3 (test code = 742-7) 0.68 10*3/uL 0.36-1.02 EOS x10^3 (test code = 711-2) 0.09 10*3/uL 0.06-0.53 BASO x10^3 (test code = 704-7) 0.03 10*3/uL 0.01-0.09 Lab Interpretation (test code = 82070-6) Abnormal [facility]. METABOLIC PANEL (18772)2022-05-27 00:29:45* Test Item Value Reference Range Interpretation Comme nts NA (test code = 4486309909) 132 mmol/L 135-145 L K (test code = 9649853141) 4.4 mmol/L 3.5-5.0 CL (test code = 3721152363) 101 mmol/L 98-108 CO2 TOTAL (test code = 4685862941) 23 mmol/L 23-31 AGAP (test code = 3759296740) 8 2-16 BUN (test code = 7966830777) 25 mg/dL 7-23 H GLUCOSE (test code = 8149222355) 173 mg/dL 70-110 H CREATININE (test code = 2527743123) 0.71 mg/dL 0.60-1.25 TOTAL BILI (test code = 1314667962) 0.8 mg/dL 0.1-1.1 CALCIUM (test code = 4913867191) 8.7 mg/dL 8.6-10.6 T PROTEIN (test code = 0132953509) 6.4 g/dL 6.3-8.2 ALBUMIN (test code = 6164652608) 3.7 g/dL 3.5-5.0 ALK PHOS (test code = 9126488762) 79 U/L 34-122 ALTv (test code = 1742-6) 26 U/L 5-50 AST(SGOT) (test code = 1215635357) 36 U/L 13-40 eGFR (test code = 3905985492) 107.6 mL/min/1.73m2 STEPHANIE (test code = STEPHANIE) [...] imaging tests). Lab Interpretation (test code = 89487-9) Abnormal [facility] WITH ZVON1862-59-08 23:12:37* Test Item Value Reference Range Interpretation [...] 34.0 g/dL 31.2-35.0 RDW-SD (test code = 06369-8) 46.2 fL 38.5-51.6 RDW-CV (test code = 788-0) 13.5 % 12.1-15.4 PLT (test code = 777-3) 263 See_Comment [Automated message] The system which generated this result transmitted reference range: 150 - 328 10*3/?L. The reference range was not used to interpret this result as normal/abnormal. MPV (test code = 30500-8) 8.4 fL 9.8-13.0 L NRBC/100 WBC (test code = 5549879404) 0.0 See_Comment [Automated message] The system which generated this result transmitted reference range: 0.0 - 10.0 /100 WBCs. The reference range was not used to interpret this result as normal/abnormal. NRBC x10^3 (test code = 5930457461) See_Comment [Automated message] The system which generated this result transmitted reference range: 10*3/?L. The reference range was not used to interpret this result as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 Porter RN[address] RdudEaqxqqcctPccghuwtjNOTN318364835 6HIRHYWHCWPLKVTJXOTXYLF3408-96-68Q9 2:40:191.2.840.363252.1.72.3.15|1.2 .840.294843.1.13.104.2.7.2.727879_1 [id number] Ena Vaughn RN [facility] 2022-10-30 12:03:26 1164-32-81I66:03:26 Problem: Respiratory Function - ImpairedGoal: Adequate work of breathingOutcome: Adequate for discharge Problem: Falls, Risk ofGoal: Absence of fallsOutcome: Adequate for discharge Problem: Skin integrity Impaired (Risk or Actual)Goal: Wound healingOutcome: Adequate for dischargeGoal: Prevention of new skin breakdownOutcome: Adequate for discharge Problem: Discharge PlanningGoal: Adequate for dischargeOutcome: Adequate for discharge 03017-1Ucda of care xbplET6327-52-07H56:03:36Plan of care noteTXT1.2.840.955682.1.13.104.2.7. 2.262842|[id number] for patient zqaa592446932Jzrtrw L Keys RN[address] VvugLzjiqbbrhPvunafquvYAPE881284440 1IPNKBZMZIRXRQMSPOZATLK0408-67-92C3 2:03:361.2.840.592044.1.72.3.15|1.2 .840.145759.1.13.104.2.7.2.727879_1 [id number] Lisa Muro RN [facility] 2022-10-29 22:21:59 8266-40-12C05:21:59 Problem: Respiratory Function - ImpairedGoal: Adequate work of breathingOutcome: Progressing as expected Problem: Falls, Risk ofGoal: Absence of fallsOutcome: Progressing as expected Problem: Skin integrity Impaired (Risk or Actual)Goal: Wound healingOutcome: Progressing as expectedGoal: Prevention of new skin breakdownOutcome: Progressing as expected Problem: Discharge PlanningGoal: Adequate for dischargeOutcome: Progressing as expected 42693-4Tnli of care jsieRF8458-44-22C98:22:03Plan of care noteTXT1.2.840.889658.1.13.104.2.7. 2.308369|[id number] for patient rbzh005306013Uzehni R Morales [id number] 9SCQEGIVNCKYUQLIOBCIDFS0159-48-82H1 2:22:031.2.840.330983.1.72.3.15|1.2 .840.307641.1.13.104.2.7.2.727879_1 [id number] Fatimah Whitmore [facility] 2022-10-29 15:19:40 0819-75-13X96:19:40 Problem: Respiratory Function - ImpairedGoal: Adequate work of breathingOutcome: Progressing as expected Problem: Falls, Risk ofGoal: Absence of fallsOutcome: Progressing as expected Problem: Skin integrity Impaired (Risk or Actual)Goal: Wound healingOutcome: Progressing as expectedGoal: Prevention of new skin breakdownOutcome: Progressing as expected Problem: Discharge PlanningGoal: Adequate for dischargeOutcome: Progressing as expected 73215-4Ylwg of care bpdyDF4880-23-02V49:19:43Plan of care noteTXT1.2.840.955666.1.13.104.2.7. 2.593201|[id number] for patient [address]TXTX[address] 2DSKOGCQVTUJFCWKMNGZXJD9426-50-20Z3 5:19:431.2.840.185003.1.72.3.15|1.2 .840.548217.1.13.104.2.7.2.727879_1 [id number] [facility] 2022-10-29 00:32:29 6864-45-30N94:32:29 Problem: Respiratory Function - ImpairedGoal: Adequate work of breathingOutcome: Progressing as expected Problem: Falls, Risk ofGoal: Absence of fallsOutcome: Progressing as expected Problem: Skin integrity Impaired (Risk or Actual)Goal: Wound healingOutcome: Progressing as expectedGoal: Prevention of new skin breakdownOutcome: Progressing as expected Problem: Discharge PlanningGoal: Adequate for dischargeOutcome: Progressing as expected 59520-9Kxcl of care nymjCH9147-01-99K63:32:32Plan of care noteTXT1.2.840.141388.1.13.104.2.7. 2.982053|[id number] for patient umts312789676Onnsqace A Bachynsky RN[address]TXTX[address] 1VVXMDNLHNPZTSWBIDDBQRV4837-23-81C4 0:32:321.2.840.282206.1.72.3.15|1.2 .840.741312.1.13.104.2.7.2.727879_1 [id number] Aubrey Duron RN [facility] 2022-10-28 14:26:16 1947-42-30Q67:26:16 Problem: Respiratory Function - ImpairedGoal: Adequate work of breathingOutcome: Progressing as expected Problem: Falls, Risk ofGoal: Absence of fallsOutcome: Progressing as expected Problem: Skin integrity Impaired (Risk or Actual)Goal: Wound healingOutcome: Progressing as expectedGoal: Prevention of new skin breakdownOutcome: Progressing as expected Problem: Discharge PlanningGoal: Adequate for dischargeOutcome: Progressing as expected 42600-5Cyda of care mfhsSD7361-78-22O39:26:19Plan of care noteTXT1.2.840.079819.1.13.104.2.7. 2.024525|[id number] for patient [address]TXTX[address] 7HGFVZTNFPISWOURIQRKBPC8564-48-49T7 4:26:191.2.840.500496.1.72.3.15|1.2 .840.008757.1.13.104.2.7.2.727879_1 [id number] [facility] 2022-10-28 05:13:15 8430-95-32E41:13:15 Patient transferred to [facility] for diagnosis of PNA of RLLPatient agrees to transfer/admit plan and verbalized understanding of plan of care, family aware of planPatient awake alert, oriented, resp reg unlabored, skin w/d PIV patent, no s/s infiltration noted, No adverse reaction to medications given while in ED. Report given to [facility] EMS personnel 83462-0Qufohyntv department OvmuED8775-66-53T55:13:48Emergency department NoteTXT1.2.840.034352.1.13.104.2.7. 2.731524|[id number] for patient [address]TX[address] 1JRVLHYXAUCUWGOGLFWJOMO6005-18-39U5 5:13:481.2.840.407693.1.72.3.15|1.2 .840.352701.1.13.104.2.7.2.727879_1 [id number] [facility] 2022-10-28 03:54:12 4289-43-47W58:54:12 Pt pending ICU bed assignment, at bedside is aware of delay in transfer. Pt resting on back at this time, MAP of 71. 72594-5Wegvwnxns department VbdyQL7096-55-73H94:02:58[facility] NoteTXT1.2.840.249059.1.13.104.2.7. 2.457902|[id number] for patient [address]TXTX[address] 6RHGZTNHDRCWIMLFOURPMPH3185-10-90P2 4:02:581.2.840.276956.1.72.3.15|1.2 .840.535866.1.13.104.2.7.2.727879_1 [id number] [facility] 2022-10-28 03:12:38 7558-62-53K27:12:38 Pt sleeping on right side with cuff on left arm. Provider aware 51384-6Gllsq QbwpAM5752-73-96P08:13:22Nurse NoteTXT1.2.840.594700.1.13.104.2.7. 2.594668|[id number] for patient [address] 3TGDKDIRKJQVALRCPNWOWJV2106-29-23S9 3:13:221.2.840.108758.1.72.3.15|1.2 .840.089089.1.13.104.2.7.2.727879_1 [id number] [facility] 2022-10-28 01:19:48 3082-73-97U76:19:48 Pt laying on right side with cuff on LUE 46967-2Kaovq OlfbTN4001-04-69S90:20:13Nurse NoteTXT1.2.840.029672.1.13.104.2.7. 2.361610|[id number] for patient [address]vestonGalvestonTXTX[address] 9VJFIZZCIUBRCPDOXHNXFPP3757-30-41W3 1:20:131.2.840.516557.1.72.3.15|1.2 .840.578912.1.13.104.2.7.2.727879_1 [id number] [facility] 2022-10-27 22:26:42 9011-52-60I35:26:42 Pt started ceftin 3 days ago for foul smelling urine. He was also medicated with tylenol at 1900 87918-5Bjguvxxei department IigtHL1617-55-34B61:29:09Emergency department NoteTXT1.2.840.155061.1.13.104.2.7. 2.380669|[id number] for patient [address] 9JRBIBLGPEYFMTWUHPTKVUM2579-37-24J8 2:29:091.2.840.919553.1.72.3.15|1.2 .840.486911.1.13.104.2.7.2.727879_1 [id number] [facility] 2022-10-27 22:04:22 0534-42-26U75:04:22 CC: called EMS for pt being febrile [...] moves all ext, WC bound at baseline. 74191-5Hxmzxxmah department Triage gmorLF5363-87-26S01:09:37Emergency department Triage noteTXT1.2.840.982851.1.13.104.2.7. 2.241506|[id number] for patient snkj780487223Fnblmv R Shehadeh RN[address]TXTX[address] 8JXVLLSKRQQKNSNKHAVMYQD2202-23-49C3 2:09:371.2.840.601681.1.72.3.15|1.2 .840.600973.1.13.104.2.7.2.727879_1 [id number] Imani Pelayo RN [facility] 2022-10-27 21:58:00 9790-31-26S19:58:00 [facility] Emergency Department NotePatient Name: Chauncey Simeon of : 1945 77 year old maleTreatment Room: [facility]/DN0Yirxovr Record Number: [id number] Care Physician: Dougie GilesPatient Escorted by: Self [9]Mode of Arrival: EMS - [facility] ([place]) [43]EMS Treatment Prior to ED 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: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: 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;IVF Travel and Exposure Screening:SymptomsDoes patient have any of these symptoms?: (not recorded)Exposure ScreeningHas patient had contact with someone with a communicable disease in the last month?: (not recorded)Diseases exposed to:: (not recorded)Is Patient ?: (not recorded)Exposure Date: (not recorded)Chief Complaint:Chief Complaint Patient presents with Fever History of Present Illness:YVW95rh WM with severe dementia presents today with [...] 02/23/2018 Surgeon: Easton Talavera MD; Location: [facility] BASAL CELL CARCINOMA EXCISION N/A 02/23/2018 Surgeon: Easton Talavera MD; Location: [facility] LACERATION REPAIR (SHX) on back PHACOEMULSIFICATION OF CATARACT WITH INTRAOCULAR LENS IMPLANT Right 08/16/2015 Surgeon: Rafael Grant MD; Location: [facility] PHACOEMULSIFICATION OF CATARACT WITH INTRAOCULAR LENS IMPLANT Left 09/13/2015 Surgeon: Rafael Grant MD; Location: [facility] Review of Systems: Review of Systems [...] 0.01 - 0.09 10*3/uL COMP. METABOLIC PANEL (24913) - Abnormal NA 133 (*) 135 - [...] URINALYSIS CBC WITH DIFF COMP. METABOLIC PANEL (99927) Lactic Acid Whole Blood Lactic Acid Whole [...] Follow-up:Electronically signed by: Marcie Nickerson DO10/27/22 2332 91737-9Rriqdgwmw Emergency department DeveEO7476-51-51Y47:32:29Physician Emergency department NoteTXT1.2.840.542164.1.13.104.2.7. 2.292112|[id number] for patient careEMCARE EMERGENCY PHYSICIAN STAFFEMCARE EMERGENCY PHYSICIAN STAFF[address] Ydts[id number] 8CANGKUNNQNFHQYPWBSBOOJ2543-31-99R0 3:32:291.2.840.244187.1.72.3.15|1.2 .840.593639.1.13.104.2.7.2.727879_1 [id number] [facility] STAFF [facility]
[2023-11-02 20:53] LABS: Arterial Blood Carboxyhemoglob 0.9 % (0-1.5); Blood Gas THB 13.4 g/dl (12-18); Blood O2 Saturation 96.8 % (92-98.5)
[2023-11-02 21:31] LABS: SARS-CoV-2 Antigen CONTROL BLUE LINE VIS/BG OK; SARS-CoV-2 Antigen Rapid Res Negative (Negative)
[2023-11-02 21:45] LABS: Absolute Lymphocytes (CBC) 0.5 K/uL (0.7-4.9); Absolute Monocytes 0.8 K/uL (0.1-1.3); Absolute Neutrophil 11.8 K/uL (1.8-8.0); Basophils % 0.2 % (0-1.3); Eosinophils % 0.1 % (0-4.4); Hematocrit 37.5 % (39.6-49.0); Hemoglobin 12.5 g/dL (13.6-17.9); MCH 28.4 pg (27.0-35.0); MCHC 33.2 g/dL (32.0-36.0); MCV 85.4 fL (80-100); MPV 6.8 fL (7.6-11.3); Monocytes % 6.1 % (3.3-12.3); Neutrophils % 89.6 % (41.7-73.7); Nucleated Red Blood Cells % 0.1 % (0-0); Platelets 252 thou/uL (152-406); Red Cell Distribution Width 15.7 % (12.1-15.2)
[2023-11-02 21:49] LABS: PT Prothrombin Time 14.4 SECONDS (9.4-12.5); PTT, Activated Partial Thromb 33.9 SECONDS (24.3-36.9); Protime INR 1.3
[2023-11-02] MEDS ORDERED: VANCOMYCIN 1 GM/VIAL ONE (22:04)
[2023-11-02] MEDS ORDERED: NA CHLORIDE 0.9% 1,000 ML ONE (22:04)
[2023-11-02] MEDS ORDERED: ACETAMINOPHEN 650MG/RECT SUPP PR ONE (22:04)
[2023-11-02] MEDS ORDERED: NA CHLORIDE 0.9% 250 ML ONE (22:04)
[2023-11-02] MEDS ORDERED: NA CHLORIDE 0.9% 100 ML ONE (22:05)
[2023-11-02] MEDS ORDERED: PIPERACIL/TAZO 3.375 GM VIAL IV ONE (22:05)
--- NOTE | 2023-11-02 22:13 | RAD REPORT ---
EXAM DESCRIPTION: CT - Head C Spine Cap Wo Con - 11/02/2023 9:41 pm CLINICAL HISTORY: Head and neck pain. Cough. Abdominal pain TECHNIQUE: Computed axial tomography of head, neck, chest, abdomen and pelvis obtained. IV and oral contrast not requested. Coronal and sagittal reconstruction performed. All CT scans are performed using dose optimization technique as appropriate and may include automated exposure control or mA/KV adjustment according to patient size. COMPARISON: September 2023 CT chest, abdomen and pelvis FINDINGS: An intracranial bleed is not seen. Ventricles are prominent. There is also prominent cerebral atrophy. . An extra-axial fluid collection is not noted. Fluid within the sinuses/mastoids is not seen. A cervical fracture is not seen. No dislocation is noted. The evaluation of mediastinum, lauren, vessels, solid organs and bowel are limited secondary to the lac k of contrast administration. Mild patchy ground-glass opacities left lower lobe. No mediastinal or hilar lymphadenopathy. No pleural effusion. No pericardial effusion Moderate hiatal hernia. The esophagus is mildly dilated fluid-filled Moderate umbilical hernia contains fat Rectum mildly distended stool. Moderate to large amount of stool throughout the colon IMPRESSION: No acute intracranial abnormality is seen. A cervical fracture is not visualized. If the patient continues to have symptoms to suggest intracran ial/spinal cord pathology MRI be recommended Mild patchy ground-glass opacities left lower lobe may indicate pneumonia or pneumonitis The rectum is mildly distended with stool which may indicate a fecal impaction Moderate hiatal hernia. The esophagus is mildly dilated and fluid-filled which may signify GE reflux
[2023-11-02 23:28] LABS: Specific Gravity 1.028 (1.005-1.030); Sqamous Epithelial <5 /HPF (None Seen); Urine Bacteria None Seen /HPF (<20); Urine Bilirubin NEGATIVE (Negative); Urine Blood Negative (Negative); Urine Clarity Clear (Clear); Urine Color Light-Yellow (Yellow); Urine Culture Reflex Order NOT NEEDED; Urine Glucose NEGATIVE (Negative); Urine Ketones NEGATIVE (Negative); Urine Microscopic Reflex YN ORDER UMIC; Urine Mucus Slight /HPF (None Seen); Urine Nitrite NEGATIVE (Negative); Urine Protein TRACE (Negative); Urine RBC <5 /HPF (None Seen); Urine Urobilinogen Normal (Normal); Urine WBC <5 /HPF (<5); Urine pH 5.5 (5.0-7.0)
--- NOTE | 2023-11-03 00:28 | ER ---
Nurse's Notes [facility] Name: Chauncey Dunn Age: 78 yrs Sex: Male : 1945 Arrival Date: 11/02/2023 Time: 20:20 Bed 13 Private MD: Diagnosis: Left lower lobe pneumonia, Acute febrile illness, Complications of Immobility Presentation: 11/01 20:35 Chief complaint: EMS states: states said she noticed patient having a cough and al5 slight fever at home. patient was just here a month ago for pneumonia. did at home covid test and it was negative. Coronavirus screen: cough unrelated to allergies, fever. Ebola Screen: No symptoms or risks identified at this time. Initial Sepsis Screen: Does the patient meet any 2 criteria? HR > 90 bpm. Does the patient have a suspected source of infection? No. Patient's initial sepsis screen is negative. Risk Assessment: Do you want to hurt yourself or someone else? Patient reports no desire to harm self or others. Onset of symptoms was November 02, 2023. 20:35 Method Of Arrival: EMS: [facility] al5 20:35 Acuity: ANNEMARIE 3 al5 Triage Assessment: 20:41 General: Appears in no apparent distress. Behavior is cooperative. Pain: Unable to use al5 pain scale. Does not appear to understand pain scale. EENT: No signs and/or symptoms were reported regarding the EENT system. Neuro: Level of Consciousness is awake, Oriented to at baseline. Cardiovascular: Patient's skin is warm and dry. Respiratory: Airway is patent Respiratory effort is even, unlabored, Respiratory pattern is regular, symmetrical. Respiratory: Parent/caregiver reports the patient having cough that is and fever. GI: No signs and/or symptoms were reported involving the gastrointestinal system. : No signs and/or symptoms were reported regarding the genitourinary system. Derm: Skin is intact, Skin is pink, warm \T\ dry. normal. Musculoskeletal: No signs and/or symptoms reported regarding the musculoskeletal system. Historical: - Allergies: 20:43 Bactrim; al5 - Home Meds: 20:43 Omeprazole Oral [Active]; Augmentin Oral [Active]; galantamine oral [Active]; glaucoma al5 drops [Active]; Klonopin Oral [Active]; Lopressor Oral daily [Active]; Risperdal Oral [Active]; Robitussin Cough and Cold CF oral [Active]; Simvastatin Oral [Active]; - PMHx: 20:43 Alzheimer's disease; Hypertensive disorder; Glaucoma; al5 - PSHx: 20:43 back; cataract; al5 - Immunization history:: Adult Immunizations up to date. - Infectious Disease History:: Denies. - Social history:: Smoking status: Patient denies any tobacco usage or history of. - Family history:: not pertinent. Screenin:45 [facility] ED Fall Risk Assessment (Adult) History of falling in the last 3 months, al5 including since admission No falls in past 3 months (0 pts) Confusion or Disorientation Yes (5 pts) Intoxicated or Sedated No (0 pts) Impaired Gait Yes (1 pt) Mobility Assist Device Used Yes (1 pt) Altered Elimination Yes (1 pt) Score/Fall Risk Level 3 or more points = High Risk Oriented to surroundings, Maintained a safe environment, Hourly rounding (assess needs \T\ fall precautionary measures) done, Apply high fall risk patient identification: yellow non skid footwear/ fall signage. Abuse screen: Denies threats or abuse. Denies injuries from another. Nutritional screening: No deficits noted. Tuberculosis screening: No symptoms or risk factors identified. Assessment: 20:45 General: see triage assessment. al5 21:50 Reassessment: Patient appears in no apparent distress at this time. No changes from al5 previously documented assessment. Patient and/or family updated on plan of care and expected duration. Pain level reassessed. Patient is alert, oriented x 3, equal unlabored respirations, skin warm/dry/pink. 22:30 Reassessment: Patient appears in no apparent distress at this time. No changes from al5 previously documented assessment. Patient and/or family updated on plan of care and expected duration. Pain level reassessed. Patient is alert, oriented x 3, equal unlabored respirations, skin warm/dry/pink. 23:25 Reassessment: Patient appears in no apparent distress at this time. No changes from al5 previously documented assessment. Patient and/or family updated on plan of care and expected duration. Pain level reassessed. Patient is alert, oriented x 3, equal unlabored respirations, skin warm/dry/pink. 11/02 00:30 Reassessment: Patient appears in no apparent distress at this time. No changes from al5 previously documented assessment. Patient and/or family updated on plan of care and expected duration. Pain level reassessed. Patient is alert, oriented x 3, equal unlabored respirations, skin warm/dry/pink. 01:25 Reassessment: Patient appears in no apparent distress at this time. No changes from al5 previously documented assessment. Patient and/or family updated on plan of care and expected duration. Pain level reassessed. Patient is alert, oriented x 3, equal unlabored respirations, skin warm/dry/pink. Vital Signs: 11/01 20:30 BP 132 / 77; Pulse 109; Resp 18; Pulse Ox 97% on R/A; al5 20:35 BP 130 / 71; Pulse 118; Resp 18; Temp 97.7(O); Pulse Ox 98% on R/A; Weight 77.11 kg; al5 Height 6 ft. 0 in. ; 21:00 BP 110 / 60; Pulse 108; Resp 18; Pulse Ox 97% on R/A; al5 21:30 BP 121 / 75; Pulse 103; Resp 18; Pulse Ox 96% on R/A; al5 21:30 BP 100 / 68; Pulse 96; Resp 18; Temp 100.4(A); Pulse Ox 96% ; al5 22:00 BP 116 / 74; Pulse 98; Resp 18; Pulse Ox 100% on R/A; al5 22:30 BP 109 / 65; Pulse 93; Resp 18; Temp 100.6(R); Pulse Ox 97% on R/A; al5 23:00 BP 116 / 70; Pulse 100; Resp 18; Pulse Ox 96% on R/A; al5 23:30 BP 106 / 71; Pulse 96; Resp 18; Pulse Ox 96% on R/A; al5 0730 00:00 BP 114 / 72; Pulse 91; Resp 18; Pulse Ox 96% on R/A; al5 00:30 BP 126 / 74; Pulse 88; Resp 18; Pulse Ox 96% on R/A; al5 01:00 BP 112 / 72; Pulse 90; Resp 18; Pulse Ox 95% on R/A; al5 02:30 BP 125 / 72; Pulse 83; Resp 18; Temp 99.4(A); Pulse Ox 97% on R/A; al5 0729 20:35 Body Mass Index 23.06 (77.11 kg, 182.88 cm) al5 Alana Coma Score: 01:20 Eye Response: spontaneous(4). Motor Response: localizes pain(5). Verbal Response: sp4 incomprehensible(2). Total: 11. ED Course: 11/01 20:25 Patient arrived in ED. kb3 20:26 Edson Luz MD is Attending Physician. sp4 20:26 Imani Quiroga RN is Primary Nurse. al5 20:41 Triage completed. al5 20:44 Arm band placed on right wrist. Patient placed in the treatment room, on a stretcher. al5 20:45 Patient has correct armband on for positive identification. Bed in low position. Call al5 light in reach. Side rails up X2. Provided Education on: processes and procedures. 20:46 No provider procedures requiring assistance completed. al5 21:43 CT Traumagram (Head C Spine CAP wo con) In Process Unspecified. EDMS 22:22 Maintain EMS IV. Dressing intact. Good blood return noted. Site clean \T\ dry. Gauge \T\ al 5 site: 22g L hand. 11/02 00:25 Navneet Jenkins is Hospitalizing Provider. sp4 03:57 Patient admitted, IV remains in place. al5 Administered Medications: 11/01 23:02 Drug: Piperacillin-Tazobactam IVPB 3.375 grams IVPB once over 60 mins; (mix in NS 100 al5 mL) Route: IVPB; Infused Over: 60 mins; Site: right antecubital; 23:37 Follow up: Response: No adverse reaction; IV Status: Completed infusion; IV Intake: al5 100ml 11/02 00:33 Follow up: Response: No adverse reaction; IV Status: Completed infusion; IV Intake: al5 100ml 11/01 23:03 Drug: Acetaminophen RI Suppository 650 mg RI once Route: RI; 11/02 03:10 Follow up: Response: No adverse reaction 11/01 23:03 Drug: NS 0.9% IV 1000 ml IV at 75 ml/hr continuous Route: IV; Rate: 75 ml/hr; Site: al5 left hand; 11/02 01:26 Follow up: IV Status: Infusion continued upon admission 11/01 23:03 Drug: vancoMYCIN IVPB 1 grams IVPB once over 2 hrs Route: IVPB; Infused Over: 2 hrs; al5 Site: left hand; 11/02 01:26 Follow up: Response: No adverse reaction; IV Status: Completed infusion; IV Intake: al5 250ml Medication: 11/01 20:46 VIS not applicable for this client. al5 Intake: 23:37 IV: 100ml; Total: 100ml. al5 11/02 00:33 IV: 100ml; Total: 200ml. al5 01:26 IV: 250ml; Total: 450ml. al5 Outcome: 00:27 Decision to Hospitalize by Provider. sp4 03:57 Admitted to Med/surg accompanied by tech, via stretcher, room 231, Other chart sent al5 through tube system \[id number], last called to notify that chart is coming through tube system due to fax machine not working properly. 03:57 Condition: good 03:57 Instructed on the need for admit, 03:58 Patient left the ED. al5 Signatures: Dispatcher [employer] EDMS Jodi Calderon, RN RN kb3 Edson Luz MD MD sp4 Imani Quiroga RN RN al5
--- NOTE | 2023-11-03 00:28 | EDPHYS ---
Physician Documentation [facility] Name: Chauncey Dunn Age: 78 yrs Sex: Male : 1945 Arrival Date: 11/02/2023 Time: 20:20 Bed 13 Private MD: ED Physician Edson Luz HPI: 11/01 20:26 This 78 yrs old Male presents to ER via Unassigned with complaints of Fever. 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 Patient was recently admitted 09/18/2023 for DVT associated with a right PICC line . Patient take extensive number of medications at home including brimonidine, cholecalciferol, collagenase, docusate liquid, galantamine ER, guaifenesin, lactobacillus, lactulose, latanoprost, multivitamins, omeprazole, polyethylene glycol, risperidone, simvastatin, Lubriderm, tamsulosin, timolol, trazodone, zinc oxide, clonazepam 0.75 mg p.o. at bedtime, acetaminophen as needed, atorvastatin, diphenhydramine, Jb twice daily, metoprolol succinate daily, mupirocin calcium, acetic acid, amoxicillin 3 times daily, apixaban twice a day. Historical: - Allergies: 11/01 20:43 Bactrim; al5 - Home Meds: 20:43 Omeprazole Oral [Active]; Augmentin Oral [Active]; galantamine oral [Active]; glaucoma al5 drops [Active]; Klonopin Oral [Active]; Lopressor Oral daily [Active]; Risperdal Oral [Active]; Robitussin Cough and Cold CF oral [Active]; Simvastatin Oral [Active]; - PMHx: 20:43 Alzheimer's disease; Hypertensive disorder; Glaucoma; al5 - PSHx: 20:43 back; cataract; al5 - Immunization history:: Adult Immunizations up to date. - Infectious Disease History:: Denies. - Social history:: Smoking status: Patient denies any tobacco usage or history of. - Family history:: not pertinent. ROS: 11/02 01:20 Constitutional: Fever, otherwise history not available. ROS is not available sp4 All other systems are negative, Exam: 01:20 Constitutional: This is chronically immobilized male, moderate to severe dementia, sp4 nonverbal, incomprehensible sounds, signs of prolonged immobility and severe physical deconditioning. Bilateral lower extremity chronic appearing ulcers. Right lower extremity ulcers worse than left. All contractures associated with chronic immobility Head/Face: Normocephalic, atraumatic. Eyes: Pupils equal round and reactive to light, Lids and lashes normal. Conjunctiva and sclera are not injected. ENT: Nares patent. No nasal discharge, no septal abnormalities noted. Tympanic membranes are normal and external auditory canals are clear. Oropharynx with no redness, swelling, or masses, exudates, or evidence of obstruction, uvula midline. Mucous membranes moist. Neck: Trachea midline, no thyromegaly or masses palpated, and no cervical lymphadenopathy. Chest/axilla: Normal chest wall appearance and motion. Nontender with no deformity. No lesions are appreciated. Cardiovascular: Regular rate and rhythm with a normal S1 and S2. No gallops, murmurs, or rubs. Normal PMI, no JVD. No pulse deficits. Respiratory: Lungs have equal breath sounds bilaterally, clear to auscultation and percussion. Abdomen/GI: Soft, with normal bowel sounds. No distension or tympany. No guarding or rebound. Back: No spinal tenderness. No costovertebral tenderness. Male : Normal genitalia with no discharge or lesions. Patient is incontinent of bowel and bladder Skin: Warm, dry with normal turgor. Normal color with no rashes, no lesions, and no evidence of cellulitis. MS/ Extremity: Pulses equal, no cyanosis, tach peripheral pulses, multiple contractures associated with immobility, right lower extremity chronic skin ulcers. Neuro: Awake , nonverbal male, incomprehensible sounds, signs of prolonged immobility and physical debility, no new neurologic deficits reported 01:20 ECG was reviewed by the Attending Physician. EKG 2054 sinus tachycardia rate 112, left axis deviation right bundle branch block, otherwise normal Vital Signs: 11/01 20:30 BP 132 / 77; Pulse 109; Resp 18; Pulse Ox 97% on R/A; al5 20:35 BP 130 / 71; Pulse 118; Resp 18; Temp 97.7(O); Pulse Ox 98% on R/A; Weight 77.11 kg; al5 Height 6 ft. 0 in. ; 21:00 BP 110 / 60; Pulse 108; Resp 18; Pulse Ox 97% on R/A; al5 21:30 BP 121 / 75; Pulse 103; Resp 18; Pulse Ox 96% on R/A; al5 21:30 BP 100 / 68; Pulse 96; Resp 18; Temp 100.4(A); Pulse Ox 96% ; al5 22:00 BP 116 / 74; Pulse 98; Resp 18; Pulse Ox 100% on R/A; al5 22:30 BP 109 / 65; Pulse 93; Resp 18; Temp 100.6(R); Pulse Ox 97% on R/A; al5 23:00 BP 116 / 70; Pulse 100; Resp 18; Pulse Ox 96% on R/A; al5 23:30 BP 106 / 71; Pulse 96; Resp 18; Pulse Ox 96% on R/A; al5 07 00:00 BP 114 / 72; Pulse 91; Resp 18; Pulse Ox 96% on R/A; al5 00:30 BP 126 / 74; Pulse 88; Resp 18; Pulse Ox 96% on R/A; al5 01:00 BP 112 / 72; Pulse 90; Resp 18; Pulse Ox 95% on R/A; al5 02:30 BP 125 / 72; Pulse 83; Resp 18; Temp 99.4(A); Pulse Ox 97% on R/A; al5 11/01 20:35 Body Mass Index 23.06 (77.11 kg, 182.88 cm) al5 Alana Coma Score: 01:20 Eye Response: spontaneous(4). Motor Response: localizes pain(5). Verbal Response: sp4 incomprehensible(2). Total: 11. MDM: 11/01 20:59 Patient medically screened. sp4 11/02 00:24 ED course: IMPRESSION: No acute intracranial abnormality is seen. A cervical fracture sp4 is not visualized. If the patient continues to have symptoms to suggest intracranial/spinal cord pathology MRI be recommended Mild patchy ground-glass opacities left lower lobe may indicate pneumonia or pneumonitis The rectum is mildly distended with stool which may indicate a fecal impaction Moderate hiatal hernia. The esophagus is mildly dilated and fluid-filled which may signify GE reflux. 00:27 ED course: CT has revealed - Mild patchy ground-glass opacities left lower lobe may sp4 indicate pneumonia or pneumonitis . 00:29 Differential diagnosis: viral Infection, bacterial infection, gastroenteritis, sp4 meningitis. Data reviewed: vital signs, nurses notes, old medical records, lab test result(s). Consideration of Admission/Observation Escalation of care including admission/observation considered. 01:29 Response to treatment: the patient's symptoms have mildly improved after treatment. sp4 Special discussion: Sepsis reevaluation, patient has signs of fever and pneumonia, patient could not be given 30 mL/kg IV bolus secondary to signs of generalized edema and volume overload.. . 11/01 20:26 Order name: Blood Culture Adult (2) [facility] 11/01 20:26 Order name: CBC with Diff; Complete Time: 23:09 [facility] 11/01 20:26 Order name: CMP [facility] 11/01 20:26 Order name: Lactate w/ 2H reflex if indic. [facility] 11/01 20:26 Order name: Protime (+inr); Complete Time: 23:09 [facility] 11/01 20:26 Order name: Ptt, Activated; Complete Time: 23:09 [facility] 11/01 20:26 Order name: Urinalysis w/ reflexes; Complete Time: 23:53 [facility] 11/01 20:26 Order name: ABG; Complete Time: 23:09 [facility] 11/01 20:27 Order name: SARS RAPID; Complete Time: 23:09 [facility] 11/01 20:27 Order name: Influenza Screen (a \T\ B); Complete Time: 23:09 [facility] 11/02 03:22 Order name: Urinalysis w/ reflexes [facility] 11/02 03:22 Order name: CBC with Automated Diff EDOR 11/02 03:22 Order name: CBC with Automated Diff EDMS 11/02 03:22 Order name: Comprehensive Metabolic Panel EDMS 11/02 03:22 Order name: Comprehensive Metabolic Panel EDMS 11/02 03:22 Order name: Magnesium EDMS 11/02 03:22 Order name: Magnesium EDMS 11/02 03:22 Order name: Phosphorus EDMS 11/02 03:22 Order name: Phosphorus EDMS 11/02 03:22 Order name: Sputum Culture [facility] 11/01 20:26 Order name: CT Traumagram (Head C Spine CAP wo con); Complete Time: 23:09 [facility] 11/02 03:22 Order name: [facility] Cons [facility] 11/01 20:26 Order name: Cardiac monitoring; Complete Time: 22:00 [facility] 11/01 20:26 Order name: Cath; Complete Time: 23:03 [facility] 11/01 20:26 Order name: EKG - Nurse/Tech; Complete Time: 22:00 [facility] 11/01 20:26 Order name: IV Saline Lock - Large Bore; Complete Time: 22:00 [facility] 11/01 20:26 Order name: Labs collected and sent; Complete Time: 22:00 [facility] 11/01 20:26 Order name: O2 Per Protocol; Complete Time: 22:00 [facility] 11/01 20:26 Order name: O2 Sat Monitoring; Complete Time: 22:00 [facility] 11/01 20:26 Order name: Vital Signs; Complete Time: 22:00 [facility] 11/01 22:18 Order name: Misc. Order: Recollect green and ortega on ice; Complete Time: 02:57 [facility] 11/02 03:06 Order name: Misc. Order: Recollect ortega ON ICE; Complete Time: 03:09 rv1 EC:20 Rate is 112 beats/min. Rhythm is regular, Sinus tachycardia. Left axis deviation noted. sp4 MO interval is normal. QRS interval is prolonged. QT interval is normal. No Q waves. T waves are Normal. No ST changes noted. Clinical impression: No evidence of ischemia. Interpreted by me. Reviewed by me. Administered Medications: 11/01 23:02 Drug: Piperacillin-Tazobactam IVPB 3.375 grams IVPB once over 60 mins; (mix in NS 100 al5 mL) Route: IVPB; Infused Over: 60 mins; Site: right antecubital; 23:37 Follow up: Response: No adverse reaction; IV Status: Completed infusion; IV Intake: al5 100ml 11/02 00:33 Follow up: Response: No adverse reaction; IV Status: Completed infusion; IV Intake: al5 100ml 11/01 23:03 Drug: Acetaminophen MO Suppository 650 mg MO once Route: MO; al5 11/02 03:10 Follow up: Response: No adverse reaction tn5 11/01 23:03 Drug: NS 0.9% IV 1000 ml IV at 75 ml/hr continuous Route: IV; Rate: 75 ml/hr; [facility]; 11/02 01:26 Follow up: IV Status: Infusion continued upon admission tn5 11/01 23:03 Drug: vancoMYCIN IVPB 1 grams IVPB once over 2 hrs Route: IVPB; Infused Over: 2 hrs; [facility] Site: left hand; 11/02 01:26 Follow up: Response: No adverse reaction; IV Status: Completed infusion; IV Intake: al5 250ml Disposition Summary: 11/03/23 00:27 Hospitalization Ordered Notes: Hospitalization Status: Inpatient Admission sp4 Provider: Navneet Jenkins sp4 Condition: Stable sp4 Problem: new sp4 Symptoms: have improved sp4 Bed/Room Type: Standard sp4 Location: Telemetry/MedSurg (Inpatient)(11/03/23 01:43) rv1 Room Assignment: 231(11/03/23 02:22) kd3 Diagnosis - Left lower lobe pneumonia, Acute febrile illness, Complications of Immobility sp4 Forms: - Medication Reconciliation Form sp4 - SBAR form sp4 - Leadership Thank You Letter sp4 Signatures: Dispatcher [employer] EDKeven Jeter, RN RN jb4 Ana Marshall RN RN kd3 Sun Saab rv1 Edson Luz MD MD sp4 Imani Quiroga RN RN al5 Corrections: (The following items were deleted from the chart) 11/01 20:27 20:27 BLOOD CULTURE*+BA.LAB.BRZ ordered. EDMS EDMS 20:27 20:27 CBC+H.LAB.BRZ ordered. EDMS EDMS 20:27 20:27 COMPREHENSIVE METABOLIC PANEL+C.LAB.BRZ ordered. EDMS EDMS 20:27 20:27 LACTATE+C.LAB.BRZ ordered. EDMS EDMS 20:27 20:27 PROTIME (+INR)+COAG.LAB.BRZ ordered. EDMS EDMS 20:27 20:27 PTT, ACTIVATED+COAG.LAB.BRZ ordered. EDMS EDMS 20:27 20:27 Urinalysis+U.LAB.BRZ ordered. EDMS EDMS 20:27 20:27 Arterial Blood Gas+RC.LAB.BRZ ordered. EDMS EDMS 20:27 20:27 Head C Spine Cap Wo Con+CT.RAD.BRZ ordered. EDMS EDMS 20:27 20:27 SARS-COV-2 Antigen Rapid+I.LAB.BRZ ordered. EDMS EDMS 20:27 20:27 Influenza Screen (A \T\ B)+BA.LAB.BRZ ordered. EDMS EDMS 23:05 20:26 Accucheck ordered. sp4 al5 11/02 00:32 00:27 Telemetry/MedSurg (Inpatient) sp4 rv1 00:32 00:27 sp4 rv1 01:43 00:32 [facility] ER HOLD rv1 rv1 01:43 00:32 ERHOLD- rv1 rv1 02:22 01:43 202 rv1 kd3
--- NOTE | 2023-11-03 03:05 | P.HP ---
Certification for Inpatient With expected LOS: >2 Midnights Practitioner: I am a practitioner with admitting privileges, knowledge of patient current condition, hospital course, and medical plan of care. Services: Services provided to patient in accordance with Admission requirements found in Title 42 Section 412.3 of the Code of Federal Regulations Patient History Date of Service: 11/03/23 Reason for admission: fevers History of Present Illness: 78-year-old male with history of hypertension, ulcer disease, glaucoma, leg wounds presents to ER with complaints of fever and productive cough with white sputum. reports that patient over the last 48 hours had increased cough. Reports having a fever of 102 degrees at home. Patient's baseline is nonverbal. He was noted to have a low-grade fever in the ER. He had abnormal imaging. Concern for pneumonia. His sats are stable on room air. CT scan revealed mild patchy groundglass opacities left lower lobe. He was given vancomycin and Zosyn in the ER he does have chronic leg wounds that he follows with wound care Allergies sulfamethoxazole [From Bactrim] Allergy (Verified 09/08/23 19:59) Anaphylaxis trimethoprim [From Bactrim] Allergy (Verified 09/08/23 19:59) Anaphylaxis Home Medications: Brimonidine Tartrate [Lumify] 1 drop EACH EYE BID 09/08/23 Cholecalciferol (Vitamin D3) [Vitamin D3] 1 tab PO DAILY 09/08/23 Collagenase [Santyl Ointment*] 1 sd TOP DAILY 09/08/23 Docusate Liq [Colace Liquid*] 5 ml PO DAILY PRN 09/08/23 Galantamine HBr [Galantamine ER] 8 mg PO BID 09/08/23 Guaifenesin [Cough Syrup] 10 ml PO Q4H PRN 09/08/23 Lactobacillus Acidophilus 1 cap PO DAILY 09/08/23 Lactulose 10 gm PO DAILY PRN 09/08/23 Latanoprost Ophth [Xalatan 0.005%*] 1 drop EACH EYE BEDTIME 09/08/23 Multivitamin 1 tab PO DAILY 09/08/23 Omeprazole 20 mg PO DAILY 09/08/23 Polyethyl Gly 3350 [Glycolax*] 1 packet PO DAILY PRN 09/08/23 Risperidone [Risperdal] 2 mg PO BEDTIME 09/08/23 Simvastatin 40 mg PO BEDTIME 09/08/23 Sod Chloride/Juvencio/Mo/Pet,Wh [Lubriderm Daily Moisture Lot] 1 sd TOP BID 09/08/23 Tamsulosin HCl 1 cap PO BEDTIME 09/08/23 Timolol 0.5% Opth [Timoptic 0.5% Opth*] 1 drop EACH EYE BID 09/08/23 Trazodone HCl 25 mg PO BEDTIME 09/08/23 Zinc Oxide [Zinc Oxide 20%*] 1 sd TOP TID 09/08/23 clonazePAM [Clonazepam] 0.75 mg PO BEDTIME 09/08/23 Acetaminophen [Tylenol*] 650 mg PO Q6H PRN tab 09/15/23 Atorvastatin Calcium [Lipitor*] 20 mg PO BEDTIME tab 09/15/23 Diphenhydramine [Benadryl*] 25 mg IV Q6H PRN vial 09/15/23 Jb [Jb*] 1 pkt PO BID 09/15/23 Metoprolol Succinate [Toprol Xl*] 12.5 mg PO DAILY tab 09/15/23 Mupirocin Calcium [Bactroban Nasal*] 1 appl BRENDA BID tube 09/15/23 Pharmacy Consult 1 ea XX DAILYPRN PRN ea 09/15/23 Acetic Acid 0.25% [Acetic Acid 0.25%*] See Rx Instructions .ROUTE .COMPLEX #2 btl 09/24/23 Amoxicillin 10 ml PO TID 14 Days #420 ml 09/24/23 Apixaban [Eliquis] See Rx Instructions .ROUTE .COMPLEX 30 Days #1 packet 09/24/23 - Past Medical/Surgical History Diabetic: No -: paranoid schizophrenia -: carotid bruit -: glaucoma -: Alzheimer's dementia -: cataract sx -: back sx - Family History Father -: Cancer Mother -: Other (see notes) Notes: alziehmers - Social History Alcohol use: No CD- Drugs: No Caffeine use: No Review of Systems General: Fever Respiratory: Cough Physical Examination - Physical Exam General: Other (patient non verbal, at times appears to be agitated) HEENT: Atraumatic, Normocephalic Neck: Supple Respiratory: Clear to auscultation bilaterally, Diminished Cardiovascular: Regular rate/rhythm, Normal S1 S2 Gastrointestinal: Soft and benign, Non-distended Musculoskeletal: Other (contractures upper extremities, with muscle atrophy) Integumentary: Other (leg ulcers covered with dressing ) - Studies Laboratory Data (last 24 hrs) 11/02/23 11/02/23 21:08 21:08 WBC 13.20 H Hgb 12.5 L Hct 37.5 L Plt Count 252 PT 14.4 H INR 1.30 APTT 33.9 Microbiology Data (last 24 hrs): 11/02/23 20:39 Nasopharnyx Influenza Type A Antigen Screen - Final 11/02/23 20:39 Nasopharnyx Influenza Type B Antigen Screen - Final Assessment and Plan - Problems (Diagnosis) (1) Fever Current Visit: Yes Status: Acute (2) Pneumonia Current Visit: Yes Status: Acute - Plan 78-year-old male with history of dementia, leg wounds presents to the emergency room with fevers increased cough and suspected pneumonia #fevers #pneumonia #cough -- Etiology of fever is likely secondary to pneumonia. Abnormal imaging. Will continue empiric antibiotics. Follow-up cultures. -- does report that he has a good appetite. He may require a swallow eval. He did have previous diet recommendations. That when discussed with may not be completely followed or uptodate #leg wounds -- Follows with wound care as outpatient. #dementia #schizophrenia -- Restart home medications once medication reconciliation completed DVT:Lovenox Code:DNR /DNI - Advance Directives Does patient have a Living Will: Yes Does patient have a Durable POA for Healthcare: Yes - Code Status/Comfort Care Code Status: Do Not Attempt Resuscitat
[2023-11-03 03:30] LABS: Albumin 2.8 g/dL (3.4-5.0); Albumin/Globulin Ratio 0.8 (1.1-1.8); Anion Gap 9.6 mEq/L (5.0-15.0); Bilirubin Total 0.3 mg/dL (0.2-1.0); Globulin 3.5 g/dL (2.3-3.5); Potassium 3.6 mEq/L (3.5-5.1); Protein, Total 6.3 g/dL (6.4-8.2)
[2023-11-03 04:44] VITALS: BMI 23.6
[2023-11-03] MEDS: ENOXAPARIN 40 MG/0.4 ML SQ SCH (08:42)
[2023-11-03] MEDS: VANCOMYCIN 1.5 GM in NA CHLORIDE 0.9% 500 ML IVPB SCH (08:42)
[2023-11-03] MEDS: PIPER TAZO 3.375 GM in NA CHLORIDE 0.9% 100 ML IV SCH (08:42)
[2023-11-03] MEDS: NA CHLORIDE 0.9% 500 ML IV ONE (12:15)
--- NOTE | 2023-11-03 12:38 | P.PN ---
Date of Service: 11/03/23 Pt seen and examined. He is a 78 yo male who presented with sepsis 2/2 pneumonia. A/P: Sepsis 2/2 Pneumonia: Continue iv vanc and zosyn. F/u blood cx. Pt had fever on admission. Likely due to pneumonia. Will give prn tylenol. Leg wounds: Will continue iv abx and f/u wound cx. Dementia / schizophrenia: Will continue home meds. DVT ppx: Lovenox Code: DNR
[2023-11-03] MEDS: NA CHLORIDE 0.9% 1,000 ML IV SCH (17:20)
[2023-11-04] MEDS: TRAZODONE 50 MG TABLET PO SCH (00:13)
[2023-11-04] MEDS: ATORVASTATIN 20 MG TAB PO SCH ×2 (00:13→20:28)
[2023-11-04] MEDS: RISPERIDONE 1 MG TABLET PO SCH ×2 (00:13→20:26)
[2023-11-04] MEDS: TAMSULOSIN 0.4 MG SR CAP PO SCH (00:14)
[2023-11-04] MEDS: ACETAMINOPHEN 500 MG TAB PO PRN (00:29)
[2023-11-04 04:43] LABS: Absolute Eosinophils 0.2 K/uL (0-0.5); Absolute Lymphocytes (CBC) 1.3 K/uL (0.7-4.9); Absolute Monocytes 0.5 K/uL (0.1-1.3); Absolute Neutrophil 3.7 K/uL (1.8-8.0); Basophils % 0.4 % (0-1.3); Eosinophils % 2.7 % (0-4.4); Hematocrit 32.2 % (39.6-49.0); Hemoglobin 10.7 g/dL (13.6-17.9); Lymphocytes % 22.7 % (15.3-44.8); MCH 28.4 pg (27.0-35.0); MCHC 33.3 g/dL (32.0-36.0); MCV 85.3 fL (80-100); MPV 6.6 fL (7.6-11.3); Neutrophils % 65.2 % (41.7-73.7); Nucleated Red Blood Cells % 0.6 % (0-0); Platelets 213 thou/uL (152-406); RBC Red Blood Cell Count 3.78 M/uL (4.33-5.43); Red Cell Distribution Width 15.9 % (12.1-15.2)
[2023-11-04 05:04] LABS: Albumin 2.4 g/dL (3.4-5.0); Albumin/Globulin Ratio 0.7 (1.1-1.8); Anion Gap 6.7 mEq/L (5.0-15.0); Bilirubin Total 0.4 mg/dL (0.2-1.0); Globulin 3.3 g/dL (2.3-3.5); Magnesium 1.9 mg/dL (1.6-2.4); Phosphorus 2.7 mg/dL (2.5-4.9); Potassium 3.7 mEq/L (3.5-5.1); Protein, Total 5.7 g/dL (6.4-8.2)
--- NOTE | 2023-11-04 11:17 | P.PN ---
Subjective Date of Service: 11/04/23 Chief Complaint: fevers Pt is resting comfortably in bed. He was sleeping when I saw him. No fever or SOB. No other complaints Review of Systems is unable to be obtained Physical Examination - Vital Signs Temperature: 98.9 F Blood Pressure: 113/56 Pulse: 74 Respirations: 20 Pulse Ox (%): 96 - Physical Exam General: Alert, In no apparent distress, Oriented x3 HEENT: Atraumatic, Normocephalic, PERRLA Neck: Supple, 2+ carotid pulse no bruit, JVD not distended Respiratory: Clear to auscultation bilaterally, Normal air movement Cardiovascular: No edema, Normal pulses, Regular rate/rhythm, Normal S1 S2 Capillary refill: <2 Seconds Gastrointestinal: Normal bowel sounds, Soft and benign, Non-distended Musculoskeletal: No clubbing, No swelling, No contractures Integumentary: No rashes, Skin breakdown Neurological: Sensation intact Lymphatics: No axilla or inguinal lymphadenopathy Assessment And Plan - Plan Sepsis 2/2 Pneumonia: Continue iv vanc and zosyn. F/u blood cx. Pt had fever on admission. Likely due to pneumonia. Will give prn tylenol. Leg / shoulder wounds: Will continue iv abx and wound care. f/u wound cx. Dementia / schizophrenia: Will continue home meds. HLD: atorvastatin GERD: protonix Continue home meds for other chronic medical problems. DVT ppx: Lovenox Code: DNR
--- NOTE | 2023-11-04 11:48 | EKG ---
Test Date: 2023-11-02 Test Time: 20:54:02 Trimmer Meat: JOE MEASUREMENT RESULTS: Intervals: Rate: 112 DE: 156 QRSD: 124 QT: 348 QTc: 475 [place]: P: 47 DE: 156 QRS: -35 T: 58 INTERPRETIVE STATEMENTS: Sinus tachycardia Left axis deviation Right bundle branch block Abnormal ECG No previous ECG available for comparison Electronically Signed On 11-04-23 11:44:26 CDT by Mk Loza
[2023-11-04] MEDS: ACETIC ACID 0.25% IRRIG IRR ONE (14:17)
[2023-11-04] MEDS: VANCOMYCIN 1.5 GM in NA CHLORIDE 0.9% 500 ML IVPB SCH (14:17)
[2023-11-04] MEDS: COLLAGENASE 30 GM OINTMENT TOP SCH (14:18)
[2023-11-04] MEDS: clonazePAM 0.5 MG TAB PO SCH (20:25)
[2023-11-04] MEDS: BRIMONIDINE TARTRATE OPTH SCH (20:27)
[2023-11-04] MEDS: OPTH OPTH SCH (20:28)
[2023-11-04] MEDS: **PT MED**TIMOLOL MALEATE 0.5% OPTH 5 ML BTL OPTH SCH (20:28)
[2023-11-04] MEDS: LATANOPROST 0.005% OPTH SCH (20:28)
[2023-11-04] MEDS ORDERED: HOME MED 1 EA UNK (Simvastatin [Simvastatin] 40 MG Tablet) PO SCH (21:00)
[2023-11-04] MEDS ORDERED: TRAZODONE 50 MG TABLET PO SCH (21:00)
[2023-11-04] MEDS ORDERED: TAMSULOSIN 0.4 MG SR CAP PO SCH (21:00)
[2023-11-04] MEDS: guaiFENesin 100 MG/5 ML UCUP PO PRN (22:15)
[2023-11-05] MEDS: guaiFENesin 100 MG/5 ML UCUP PO ONE (00:01)
[2023-11-05] MEDS: VITAMIN D 1000 UNIT TAB PO SCH (08:30)
[2023-11-05] MEDS: LACTOBACILLUS/ACIDOPHILUS TAB PO SCH (08:31)
[2023-11-05] MEDS: METOPROLOL XL 25 MG TAB PO SCH (08:31)
--- NOTE | 2023-11-05 12:20 | P.PN ---
Subjective Date of Service: 11/05/23 Chief Complaint: fevers Pt is resting comfortably in bed. He was sleeping when I saw him. He had fever last night. Currently has low grade fever. Will check CXR. No SOB. No other complaints Review of Systems is unable to be obtained Physical Examination - Vital Signs Temperature: 99.3 F Blood Pressure: 116/62 Pulse: 81 Respirations: 17 Pulse Ox (%): 93 - Physical Exam General: Alert, In no apparent distress HEENT: Atraumatic, Normocephalic, PERRLA Neck: Supple, 2+ carotid pulse no bruit, JVD not distended Respiratory: Clear to auscultation bilaterally, Normal air movement Cardiovascular: No edema, Normal pulses, Regular rate/rhythm, Normal S1 S2 Capillary refill: <2 Seconds Gastrointestinal: Normal bowel sounds, Soft and benign, Non-distended Musculoskeletal: No clubbing, No swelling, No contractures Integumentary: No rashes, Skin breakdown, Pressure ulcer Neurological: Sensation intact Lymphatics: No axilla or inguinal lymphadenopathy Assessment And Plan - Plan Sepsis 2/2 Pneumonia: Continue iv vanc and zosyn. F/u blood cx. Pt had fever on admission. Likely due to pneumonia. Will give prn tylenol. Will f/u CXR to r/o worsening pna. Leg / shoulder wounds: Will continue iv abx and wound care. f/u wound cx. Dementia / schizophrenia: Will continue home meds. HLD: atorvastatin GERD: protonix Continue home meds for other chronic medical problems. DVT ppx: Lovenox Code: DNR
--- NOTE | 2023-11-05 13:27 | RAD REPORT ---
EXAM DESCRIPTION: [facility] Single View11/05/2023 1:12 pm CLINICAL HISTORY: Chest pain COMPARISON: September 2023 FINDINGS: The lungs appear clear of acute infiltrate. The heart is normal size. A moderate hiatal hernia IMPRESSION: No acute abnormalities displayed
[2023-11-05] MEDS: ACETIC ACID 0.25% IRRIG IRR SCH (14:14)
[2023-11-05] MEDS: guaiFENesin 100 MG/5 ML UCUP PO PRN (20:49)
[2023-11-05] MEDS ORDERED: guaiFENesin 100 MG/5 ML UCUP PO SCH (21:11)
[2023-11-06 09:19] LABS: Absolute Eosinophils 0.2 K/uL (0-0.5); Absolute Lymphocytes (CBC) 1.3 K/uL (0.7-4.9); Absolute Monocytes 0.5 K/uL (0.1-1.3); Absolute Neutrophil 2.9 K/uL (1.8-8.0); Basophils % 0.6 % (0-1.3); Eosinophils % 4.4 % (0-4.4); Hemoglobin 10.6 g/dL (13.6-17.9); Lymphocytes % 25.8 % (15.3-44.8); MCH 28.5 pg (27.0-35.0); MCV 86.5 fL (80-100); MPV 6.7 fL (7.6-11.3); Monocytes % 9.9 % (3.3-12.3); Neutrophils % 59.3 % (41.7-73.7); Platelets 183 thou/uL (152-406); Red Cell Distribution Width 15.4 % (12.1-15.2)
[2023-11-06 09:33] LABS: Anion Gap 5.7 mEq/L (5.0-15.0); Potassium 3.7 mEq/L (3.5-5.1)
--- NOTE | 2023-11-06 11:04 | P.DS ---
Admission Date: 11/03/23 Discharge Date: 11/06/23 Disposition: ROUTINE DISCHARGE Discharge Condition: GOOD Reason for Admission: fevers Brief History of Present Illness: 78-year-old male with history of hypertension, ulcer disease, glaucoma, leg wounds presents to ER with complaints of fever and productive cough with white sputum. reports that patient over the last 48 hours had increased cough. Reports having a fever of 102 degrees at home. Patient's baseline is nonverbal. He was noted to have a low-grade fever in the ER. He had abnormal imaging. Concern for pneumonia. His sats are stable on room air. CT scan revealed mild patchy groundglass opacities left lower lobe. He was given vancomycin and Zosyn in the ER he does have chronic leg wounds that he follows with wound care Hospital Course: Pt is a 78yo male with past medical history of hypertension, ulcer disease, glaucoma, and leg wounds who presented with fever and productive cough with white sputum. The symptoms were concerning for pneumonia. CT scan revealed mild patchy ground-glass opacities left lower lobe. We admitted pt for sepsis due to pneumonia and gave iv vanc and zosyn. There was no growth on the blood cx. We co ntinued wound care of the pressure ulcers on the right leg and bilateral shoulder. We continued home meds for other chronic medical problems. He was discharged with levaquin 750mg po daily for 1 week. Pt was in NAD prior to discharge. Vital Signs/Physical Exam: Temp Pulse Resp BP Pulse Ox 97.6 F 55 17 114/58 L 96 11/06/23 08:00 11/06/23 09:43 11/06/23 08:00 11/06/23 09:43 11/06/23 08:00 Laboratory Data at Discharge: WBC 4.90 thou/uL (4.3-10.9) 11/06/23 09:05 Hgb 10.6 g/dL (13.6-17.9) L 11/06/23 09:05 Hct 32.0 % (39.6-49.0) L 11/06/23 09:05 Plt Count 183 thou/uL (152-406) 11/06/23 09:05 PT 14.4 SECONDS (9.4-12.5) H 11/02/23 21:08 INR 1.30 11/02/23 21:08 APTT 33.9 SECONDS (24.3-36.9) 11/02/23 21:08 Sodium 142 mEq/L (136-145) 11/06/23 09:05 Potassium 3.7 mEq/L (3.5-5.1) 11/06/23 09:05 BUN 12 mg/dL (7-18) 11/06/23 09:05 Creatinine 0.59 mg/dL (0.70-1.30) L 11/06/23 09:05 Glucose 87 mg/dL (74-106) 11/06/23 09:05 Phosphorus 2.7 mg/dL (2.5-4.9) 11/04/23 04:28 Magnesium 1.9 mg/dL (1.6-2.4) 11/04/23 04:28 Total Bilirubin 0.4 mg/dL (0.2-1.0) 11/04/23 04:28 AST 25 U/L (15-37) 11/04/23 04:28 ALT 23 U/L (16-61) 11/04/23 04:28 Alkaline Phosphatase 78 U/L (45-117) 11/04/23 04:28 Home Medications: Brimonidine Tartrate [Lumify] 1 drop EACH EYE BID 09/08/23 Cholecalciferol (Vitamin D3) [Vitamin D3] 1 tab PO DAILY 09/08/23 Collagenase [Santyl Ointment*] 1 sd TOP DAILY 09/08/23 Galantamine HBr [Galantamine ER] 8 mg PO BID 09/08/23 Guaifenesin [Cough Syrup] 10 ml PO Q4H PRN 09/08/23 Lactobacillus Acidophilus 1 cap PO DAILY 09/08/23 Lactulose 10 gm PO DAILY PRN 09/08/23 Latanoprost Ophth [Xalatan 0.005%*] 1 drop EACH EYE BEDTIME 09/08/23 Multivitamin 1 tab PO DAILY 09/08/23 Omeprazole 20 mg PO DAILY 09/08/23 Polyethyl Gly 3350 [Glycolax*] 1 packet PO DAILY PRN 09/08/23 Risperidone [Risperdal] 2 mg PO BEDTIME 09/08/23 Simvastatin 40 mg PO BEDTIME 09/08/23 Sod Chloride/Juvencio/Mo/Pet,Wh [Lubriderm Daily Moisture Lot] 1 sd TOP BID 09/08/23 Tamsulosin HCl 1 cap PO BEDTIME 09/08/23 Timolol 0.5% Opth [Timoptic 0.5% Opth*] 1 drop EACH EYE BID 09/08/23 Trazodone HCl 25 mg PO BEDTIME 09/08/23 Zinc Oxide [Zinc Oxide 20%*] 1 sd TOP TID 09/08/23 clonazePAM [Clonazepam] 0.75 mg PO BEDTIME 09/08/23 Acetaminophen [Tylenol*] 650 mg PO Q6H PRN tab 09/15/23 Atorvastatin Calcium [Lipitor*] 20 mg PO BEDTIME tab 09/15/23 Diphenhydramine [Benadryl*] 25 mg IV Q6H PRN vial 09/15/23 Jb [Jb*] 1 pkt PO BID 09/15/23 Metoprolol Succinate [Toprol Xl*] 12.5 mg PO DAILY tab 09/15/23 Acetic Acid 0.25% [Acetic Acid 0.25%*] See Rx Instructions .ROUTE .COMPLEX #2 btl 09/24/23 Apixaban [Eliquis] See Rx Instructions .ROUTE .COMPLEX 30 Days #1 packet 09/24/23 levoFLOXacin [Levaquin] 750 mg PO DAILY 7 Days #7 tab 11/06/23 New Medications: levoFLOXacin [Levaquin] 750 mg PO DAILY 7 Days #7 tab Physician Discharge Instructions: Continue levaquin 750mg po daily for 1 week. Continue other home meds. Follow up with PCP within 1 week. Diet: AHA Activity: Ad marshall Followup: NONE,NONE [Primary Care Provider[facility] - [facility] [UN[facility] -
[2023-11-06 19:21] VITALS: BP 118/80; TEMP 98.3
[2023-11-06 19:40] VITALS: O2SAT 96
== END 2023-11-06 20:12 | disposition home or self-care (01) | DRG 871 ==
LOC: ER 20:20 → 2ND 11-03 03:38
PROVIDERS: ADMIT Internal Medicine; ATTEND Hospitalist
PROC: 4A033R1 Measurement of Arterial Saturation, Peripheral, Percutaneous Approach (ICD-10-PCS; principal; 2023-11-02)
PROC: 0T9B70Z Drainage of Bladder with Drainage Device, Via Natural or Artificial Opening (ICD-10-PCS; 2023-11-06)
DX: A41.9 Sepsis, unspecified organism (principal); J18.9 Pneumonia, unspecified organism; F02.C11 Dementia in other diseases classified elsewhere, severe, with agitation; L97.919 Non-pressure chronic ulcer of unspecified part of right lower leg with unspecified severity; G30.9 Alzheimer's disease, unspecified; I10 Essential (primary) hypertension; E78.5 Hyperlipidemia, unspecified; K21.9 Gastro-esophageal reflux disease without esophagitis; F20.9 Schizophrenia, unspecified; Z66 Do not resuscitate; Z88.1 Allergy status to other antibiotic agents; Z79.01 Long term (current) use of anticoagulants; Z11.52 Encounter for screening for COVID-19; Z86.711 Personal history of pulmonary embolism; Z79.899 Other long term (current) drug therapy; Z86.718 Personal history of other venous thrombosis and embolism
CPT/HCPCS: 36415; 36600; 70450; 71045; 71250; 72125; 80048; 80053; 80202; 81001; 82805; 83605; 83735; 84100; 85025; 85610; 85730; 87040; 87804; 87811; 92610; 93005; 99285; J1650; J2543; J3590; J7030; J7040; J7050

== ENCOUNTER 2024-03-15 14:45 | Inpatient (IN) | payer OTHER, BC ==
--- OUTSIDE RECORDS SUMMARY | 2024-03-15 14:55 | XMS REPORT | Continuity of Care Document ---
Author Name Unknown Address [address] [facility] [address] [place] [address] [facility] thconnect Address [address] [facility] [place] [address] Care Team Providers Care [facility] [place] Name Role Phone DOUGIE GILES Primary Care Physician Unavailab MONICA Deluca Attending Clinician Unavailab ISAURA Ceja Attending Clinician Unavailable ISAURA BECK Attending Clinician Unavailable Isaura Beck MD Attending Clinician [phone] NATALIE TRIVEDI Attending Clinician Unavaila Joseph Joe Attending Clinician Unavailable Joseph Smith Attending Clinician [phone] NICANOR LENTZ Attending Clinician Unavailable Nicanor Lentz DO Attending Clinician [phone] Shira Mead RN Attending Clinician Unavail able MARQUES HINES Attending Clinician Unavailable Chapito CONNELLY Andreina S Attending Clinician [phone] Marlena Rios MD Attending Clinician [phone] Marques Hines DO Attending Clinician [phone] Virginia Soni DO Attending Clinician [phone] VIR[place] SONI Attending Clinician Unavailab Ena Montenegro RN Attending Clinician Unavailab Juno Hand MD Attending Clinician [phone] OLMAN PEREZ Attending Clinician Unavailable Frankie PEOPLE MANAGER, Olman Attending Clinician [phone] Doctor Unassigned, [place] Attending Clinician U arronailable LYDIA PASTOR Attending Clinician Unavailab Marcie Lazar DO Attending Clinician [phone] Chaz Roberts MD Attending Clinician [phone] Farooq PEOPLE MANAGER, Natalie Attending Clinician [phone] Fantasma Marroquin MD Attending Clinician [phone] Jean Jarrett MD Attending Clinician [phone] Dougie Giles MD Attending Clinician [phone] DOUGIE GILES Attending Clinician Unavailable MARLENA RIOS Attending Clinician Unavailable Yaritza Aguirre Anavella Attending Cli nician Unavailable JOSEFINA DASILVA Attending Clinician Unavailable Josefina Dasilva MD Attending Clinician [phone] Nurse, Adc Surgery Gu Attending Clinician Jelani Bray MD Attending Clinician [phone] JEAN JARRETT Attending Clinician Unavailable Liane Negrete RN Attending Clinician Unavailable Only, Ang Db Test Attending Clinician Unavailabl Mannie Vuong DO Attending Clinician [phone] MANNIE WILSON Attending Clinician Unavail able MARGI BOYD Attending Clinician Unavailable Gramm ALAN, Margi Hu Attending Clinician [phone] Justine Collins Attending Clinician [phone] JUSTINE GARCIA Attending Clinician Unavailable Lab, Adc Fam Pob I Attending Clinician Unavailab JELANI Álvarez Attending Clinician Unavail able JELANI CORDON Attending Clinician Unavail able JEZ ALEXANDER Attending Clinician Unavailable Shi_Olga Attending Clinician Unavailable ISAURA BECK Admitting Clinician Unavailable Joseph MELENDEZ Admitting Clinician Unavailable MARUQES HINES Admitting Clinician Unavailable Marques Hines DO Admitting Clinician [phone] V[place] SONI Admitting Clinician Unavailab OLMAN Anglin Admitting Clinician Unavailable CHAZ ROBERTS Admitting Clinician Unavailable Chaz Roberts MD Admitting Clinician [phone] NICANOR LENTZ Admitting Clinician Unavailable MARLENA RIOS Admitting Clinician Unavailable Marlena Rios MD Admitting Clinician [phone] Tomasa Aguirre Anav Admitting Clinician U JOSEFINA Cam Admitting Clinician Unavailable Josefina Dasilva MD Admitting Clinician [phone] JELANI CORDON Admitting Clinician Unavail able Raju_P Admitting Clinician Unavailable Payers Payer Name Policy Type Policy Number Effective Date Expirati on Date Source [facility] [id number] 2021 00:00:00 MEDICARE PART A \\T\\ B [id number] 2002 00:00:00 BCBS TRADITIONAL [id number] 2013 00:00:00 MCR MCR [id number] BCTI BCTI [id number] TWV TWV [id number] [place] [employer] [id number] 2002 00:00:00 [place]IC[place]PP[place]MENT[place] [id number] 2013 00:00:00 Problems Condition Name Condition Details Condition Category Status Onset Date Resolution Date Last Treatment Date Treating Clinician Comments Source Fever, unspecifie d fever cause Fever, unspecifie d fever cause Disease Active 2022-04 00:00: 00 [facility] Wound of right ankle, initial encounter Wound of right ankle, initial encounter Disease Active 2022-04 00:00: 00 [facility] Cellulitis , unspecifie d cellulitis site Cellulitis , unspecifie d cellulitis site Disease Active 11-29 00:00: 00 [facility] Unspecifie d dementia, unspecifie d severity, without behavioral disturbanc e, psychotic disturbanc e, mood disturbanc e, and anxiety Unspecifie d dementia, unspecifie d severity, without behavioral disturbanc e, psychotic disturbanc e, mood disturbanc e, and anxiety Disease Active 2023-0 8-23 00:00: 00 [facility] 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 823 00:00: 00 [facility] Problem related to unspecifie d psychosoci al circumstan vasu Problem related to unspecifie d psychosoci al circumstan vasu Disease Active 8-23 00:00: 00 [facility] Post-traum atic stress disorder, chronic Post-traum atic stress disorder, chronic Disease Active 8 00:00: 00 [facility] Fever in adult Fever in adult Disease Active 7 00:00: 00 [facility] Pneumonia due to infectious organism Pneumonia due to infectious organism Disease Active 7 00:00: 00 [facility] At risk for aspiration At risk for aspiration Disease Active 4-20 00:00: 00 [facility] Cellulitis of right ankle Cellulitis of right ankle Disease Active 4-16 00:00: 00 [facility] Fecal impaction in rectum Fecal impaction in rectum Disease Active 2- 00:00: 00 [facility] Pancolitis Pancolitis Disease Active 1 00:00: 00 [facility] Basal cell carcinoma (BCC) of chin Basal cell carcinoma (BCC) of chin Disease Active 2017-04 00:00: 00 Overview: Formattin g of this note might be different from the original. Added automatic ally from request for surgery [id number] [facility] Glaucoma Glaucoma Disease Active 2014-04 00:00: 00 [facility] Hyperlipid emia Hyperlipid emia Disease Active 2014-04 00:00: 00 [facility] Carotid bruit Carotid bruit Disease Active 2014-04 00:00: 00 [facility] Allergies, Adverse Reactions, Alerts Allergy Name Allergy Type Status Severity Reaction(s) Onset Date Inactive Date Treating Clinician Comments Source Sulfamet hoxazole -Trimeth oprim Propensi ty to adverse reaction s Active Unknown - See comments 11-07 00:00: 00 Patients reports the patient is unable to walk when taking medicatio n [facility] SULFAMET HOXAZOLE -TRIMETH OPRIM DRUG Active Unknown-Cmnt 11-07 00:00: 00 [facility] Social History Social Habit Start Date Stop Date Quantity Comments Source History SDOH Social Connections Get Together [facility] History SDOH Social Connections [facility] SDOH Social Connections Membership [facility] History SDOH Social Connections Meetings [facility] Alcoholic beverage intake 2023-12-30 00:00:00 2023-12-30 00:00:00 0 /d [facility] Alcohol intake 2023 00:00:00 2023 00:00:00 0 /d [facility] Exposure to SARS-CoV-2 (event) 2022-08-17 00:00:00 2022-08-27 14:30:00 Not sure [facility] History of Social function 2022-08-27 00:00:00 2022-08-27 00:00:00 [facility] History SDOH Alcohol Frequency 2022-07-21 00:00:00 2022-07-21 00:00:00 1 [facility] History SDOH Social Connections Phone 2022-07-21 00:00:00 2022-07-21 00:00:00 3 [facility] History SDOH Social Connections Living 2022-07-21 00:00:00 2022-07-21 00:00:00 3 [facility] History SDOH Financial 2022-07-21 00:00:00 2022-07-21 00:00:00 5 [facility] History SDOH Food Worry 2022-07-21 00:00:00 2022-07-21 00:00:00 1 [facility] History SDOH Food Scarcity 2022-07-21 00:00:00 2022-07-21 00:00:00 1 [facility] History SDOH Transport Med 2022-07-21 00:00:00 2022-07-21 00:00:00 2 [facility] History SDOH Transport Non-Med 2022-07-21 00:00:00 2022-07-21 00:00:00 2 [facility] History SDOH Physical Activity DPW 2022-07-21 00:00:00 2022-07-21 00:00:00 2 [facility] History SDOH Physical Activity MPS 2022-07-21 00:00:00 2022-07-21 00:00:00 1 [facility] History SDOH Housing Unable to Pay 2022-07-21 00:00:00 2022-07-21 00:00:00 2 [facility] History SDOH Housing Places Lived 2022-07-21 00:00:00 2022-07-21 00:00:00 1 [facility] History SDOH Housing Homeless Last Year 2022-07-21 00:00:00 2022-07-21 00:00:00 2 [facility] Tobacco use and exposure 2022-07-20 00:00:00 2022-07-20 00:00:00 Smokeless tobacco non-user [facility] History SDOH Alcohol Std Drinks 2022-05-28 00:00:00 2022-05-28 00:00:00 0 [facility] History SDOH Alcohol Binge 2022-05-28 00:00:00 2022-05-28 00:00:00 1 [facility] Sex assigned at 1945 00:00:00 1945 00:00:00 [facility] Smoking Status Start Date Stop Date Source Never smoked tobacco [facility] Medications Ordered Medication Name Filled Medication Name Start Date Stop Date Current Medication? Ordering Clinician Indication Dosage Frequency Signature (SIG) Comments Components Source iopamidol (ISOVUE 370-500 mL) injection 150 mL 12-30 05:45: 00 12-30 05:45 :00 No [id number] 150mL 150 mL, Intravenou s, ONCE, 1 dose, On Marilu 12/31/23 at 0045, Routine [facility] ciprofloxac in HCl (CIPRO) tablet 500 mg 2022-04 00:30: 00 03-01 23:48 :00 No 500mg 500 mg, Oral, ONCE, 1 dose, On 03/01/23 at 1830, ROCKY
Re ason for Anti-Infec tive: Documented Infection< br>Documen nichole Infection Site: Skin / Soft Tissue
Duration of Therapy: Other (see Comments) [facility] ciprofloxac in HCl 500 mg tablet 2022-04 00:00: 00 Yes [id number] 500mg Take 1 tablet by mouth in the morning and 1 tablet at noon and 1 tablet in the evening. [facility] collagenase 250 unit/gram ointment 2022-04 00:00: 00 Yes [id number] Apply to area(s) daily. [facility] Vitamin E (E-PHEROL) 400 unit Tab 2022-04 14:37: 49 Yes 2{tbl} Take 2 tablets by mouth daily. [facility] latanoprost (XALATAN) 0.005 % ophthalmic drops 2022-04 14:37: 49 Yes 1[drp] 1 Drop every evening. [facility] brimonidine (ALPHAGAN) 0.2 % ophthalmic solution 2022-04 14:37: 49 Yes 1[drp] Take 1 Drop in the morning and 1 Drop at noon and 1 Drop in the evening. [facility] melatonin 10 mg Tab 2022-04 14:37: 49 Yes 10mg Take 10 mg by mouth at bedtime. [facility] acetaminoph en 500 mg tablet 2022-04 14:37: 49 Yes 1000mg Take 2 tablets by mouth at bedtime. [facility] mv-mn/iron/ folic acid/herb 190 (VITAMIN D3 COMPLETE ORAL) 2022-04 14:37: 49 Yes 5000U/d Take 5,000 Units/day by mouth daily. [facility] timolol 0.25 % ophthalmic solution 2022-04 14:37: 49 Yes 1[drp] Place 1 Drop in both eyes in the morning and 1 Drop in the evening. [facility] trazodone HCl (TRAZODONE ORAL) 2022-04 14:37: 49 Yes 25mg Take 25 mg by mouth at bedtime. [facility] polyethylen e glycol 3350 (MIRALAX) 17 gram/dose powder 2022-04 14:37: 49 Yes 17g Take 17 g by mouth in the morning. [facility] zinc sulfate 50 mg zinc (220 mg) capsule 2022-04 00:00: 00 Yes [id number] 50mg Take 1 capsule by mouth in the morning and 1 capsule at noon and 1 capsule in the evening. [facility] ascorbic acid, vitamin C, 500 mg tablet 2022-04 00:00: 00 Yes [id number] 500mg Take 1 tablet by mouth in the morning and 1 tablet in the evening. [facility] ibuprofen 400 mg tablet 2022-04 00:00: 00 Yes [id number] 400mg Take 1 tablet by mouth every 6 (six) hours as needed (Alternate with Tylenol for fever). [facility] codeine-gua ifenesin 10-100 mg/5 mL oral solution 2022-04 00:00: 00 02-14 05:59 :00 No [id number] 5mL Take 5 mL by mouth every 6 (six) hours as needed for Cough for up to 7 days. Indication s: acute pain, cough [facility] NaCl 0.9% (NS) IV infusion 1,000 mL 2022-04 20:00: 00 Yes 1000mL at 50 mL/hr, IV Infusion, CONTINUOUS , Starting on Thu02/04/23 at 1500, Until Discontinu ed, Routine [facility] D5W 0.9% NaCl (NS) IV infusion 1,000 mL 2022-04 03:00: 00 Yes 1000mL at 50 mL/hr, 1,000 mL, IV Infusion, CONTINUOUS , Starting on Thu02/03/23 at 2200, Until Discontinu ed, Routine [facility] D5W 0.9% NaCl (NS) IV infusion 1,000 mL 2022-04 02:15: 00 02-04 02:56 :32 No 1000mL at 150 mL/hr, 1,000 mL, IV Infusion, CONTINUOUS , Starting on Thu02/03/23 at 2115, Until Thu02/03/23 at 2156, Routine [facility] risperiDONE (RISPERDAL) tablet 4 mg 2022-04 02:00: 00 Yes 4mg 4 mg, Oral, QHS, First dose (after last modificati on) on Thu02/03/23 at 2100, Until Discontinu ed, Routine [facility] acetaminoph en (TYLENOL) suppository 650 mg 2022-04 21:35: 13 Yes 650mg 650 mg, Rectal, Q6HPRN, Starting on Thu02/03/23 at 1635, Until Discontinu ed, Routine, Temp > 38 C [facility] collagenase (SANTYL) ointment 2022-04 16:45: 00 Yes Topical, DAILY, First dose on Thu02/03/23 at 1145, Until Discontinu ed, Routine [facility] sodium hypochlorit e 0.25% (DAKIN'S SOLUTION) solution 2022-04 16:45: 00 Yes Topical, DAILY, First dose on Thu02/03/23 at 1145, Until Discontinu ed, Routine [facility] polyethylen e glycol 3350 powder 17 g 2022-04 14:00: 00 Yes 17g 17 g, Oral, DAILY, First dose on Thu02/03/23 at 0900, Until Discontinu ed [facility] omeprazole (PRILOSEC) capsule 20 mg 2022-04 14:00: 00 Yes 20mg 20 mg, Oral, DAILY, First dose on Thu02/03/23 at 0900, Until Discontinu ed, Routine [facility] lactobacill us acidophilus tablet 0.5 mg 2022-04 14:00: 00 Yes .5mg 0.5 mg, Oral, DAILY, First dose on Thu02/03/23 at 0900, Until Discontinu ed, Routine [facility] docusate (COLACE) 50 mg/5 mL solution 100 mg 2022-04 14:00: 00 Yes 100mg 100 mg, Oral, DAILY, First dose on Thu02/03/23 at 0900, Until Discontinu ed, Routine [facility] levoFLOXaci n (LEVAQUIN) tablet 750 mg 2022-04 14:00: 00 02-13 14:59 :00 No 750mg 750 mg, Oral, DAILY, 10 doses, First dose on Thu02/03/23 at 0900, Last dose on Thu02/12/23 at 0900, ROCKY
Re ason for Anti-Infec tive: Documented Infection< br>Documen nichole Infection Site: Skin / Soft Tissue
Duration of Therapy: 10 days [facility] sodium hypochlorit e 0.5% (DAKINS) solution 16 oz 2022-04 14:00: 00 02-03 16:41 :37 No 16[oz_a v] 16 oz, Topical, DAILY, First dose on Thu02/03/23 at 0900, Until Discontinu ed, [facility] sulfate (ORAZINC) capsule 50 mg 2022-04 13:00: 00 Yes 50mg 50 mg, Oral, TID, First dose on Thu02/03/23 at 0800, Until Discontinu ed, [facility] ascorbic acid (vitamin C) (VITAMIN C) tablet 500 mg 2022-04 13:00: 00 Yes 500mg 500 mg, Oral, BID, First dose on Thu02/03/23 at 0800, Until Discontinu ed, Routine [facility] codeine-gua ifenesin (ROBITUSSIN AC) 10-100 mg/5 mL oral solution 5 mL 2022-04 05:26: 58 Yes 5mL 5 mL, Oral, Q6HPRN, Starting on Thu02/03/23 at 0026, Until Discontinu ed, Routine, Cough [facility] melatonin (MELATIN) tablet 10.5 mg 2022-04 02:00: 00 Yes 10mg 10.5 mg (rounded from 10 mg), Oral, QHS, First dose on Thu02/02/23 at 2100, Until Discontinu ed [facility] donepeziL (ARICEPT) tablet 10 mg 2022-04 02:00: 00 Yes 10mg 10 mg, Oral, QHS, First dose on Thu02/02/23 at 2100, Until Discontinu ed [facility] doxazosin (CARDURA) tablet 1 mg 2022-04 02:00: 00 Yes 1mg 1 mg, Oral, QHS, First dose on Thu02/02/23 at 2100, Until Discontinu ed, Routine [facility] latanoprost (XALATAN) 0.005 % ophthalmic drops 1 Drop 2022-04 02:00: 00 Yes 1[drp] 1 Drop, Both Eyes, QHS, First dose on Thu02/02/23 at 2100, Until Discontinu ed, Routine [facility] traZODone (DESYREL) tablet 25 mg 2022-04 02:00: 00 02-03 05:28 :00 No 25mg 25 mg, Oral, QHS, First dose on Thu02/02/23 at 2100, Until Discontinu ed [facility] brimonidine (ALPHAGAN) 0.2 % ophthalmic solution 1 Drop 2022-04 01:00: 00 Yes 1[drp] 1 Drop, Both Eyes, TID, First dose on Thu02/02/23 at 2000, Until Discontinu ed, Routine [facility] timolol (TIMOPTIC) 0.5 % ophthalmic solution 1 Drop 2022-04 01:00: 00 Yes 1[drp] 1 Drop, Both Eyes, BID, First dose on Thu02/02/23 at 2000, Until Discontinu ed, Routine [facility] amoxicillin -clavulanat e (AUGMENTIN) 875-125 mg per tablet 1 tablet 2022-04 01:00: 00 02-13 01:59 :00 No 1{tbl} 1 tablet, Oral, BID, 20 doses, First dose on Thu02/02/23 at 2000, Last dose on Thu02/12/23 at 0800, Routine
Reason for Anti-Infec tive: Documented Infection< br>Documen nichole Infection Site: Skin / Soft Tissue
Duration of Therapy: 10 days [facility] ibuprofen (IBU) tablet 400 mg 2022-04 23:51: 58 Yes 400mg 400 mg, Oral, Q6HPRN, Starting on Thu02/02/23 at 1851, Until Discontinu ed, Routine, Alternate with Tylenol for fever [facility] acetaminoph en (TYLENOL) tablet 650 mg 2022-04 23:51: 40 02-03 21:35 :40 No 650mg 650 mg, Oral, Q6HPRN, Starting on Thu02/02/23 at 1851, Until Thu02/03/23 at 1635, Routine, Pain (scale 1-3), Temp > 38 C [facility] D5W 0.9% NaCl (NS) IV infusion 1,000 mL 2022-04 22:45: 00 02-04 00:14 :08 No 1000mL at 100 mL/hr, 1,000 mL, IV Infusion, CONTINUOUS , Starting on Thu02/02/23 at 1745, Until Thu02/03/23 at 1914, Routine [facility] acetaminoph en ADULT (OFIRMEV) injection 1,000 mg 2022-04 22:30: 00 02-02 23:02 :00 No 1000mg 1,000 mg, IV Infusion, at 400 mL/hr Administer over 15 Minutes, ONCE, 1 dose, On Thu02/02/23 at 1730, Routine
Indicatio n: Non-periop erative Patient
Approved by: Per Policy (NPO Status) [facility] enoxaparin (LOVENOX) injection 40 mg 2022-04 22:00: 00 Yes 40mg 40 mg, Subcutaneo us, DAILY, First dose on Thu02/02/23 at 1700, Until Discontinu ed, Routine [facility] risperiDONE (RISPERDAL) tablet 4 mg 2022-04 22:00: 00 02-03 17:34 :44 No 4mg 4 mg, Oral, QPM, First dose on Thu02/02/23 at 1700, Until Discontinu ed, Routine [facility] ondansetron (ZOFRAN (PF)) injection 4 mg 2022-04 21:37: 00 Yes 4mg 4 mg, Slow IV Push, Q6HPRN, Starting on Thu02/02/23 at 1637, Until Discontinu ed, Routine, Nausea and Vomiting (N/V) [facility] dextrometho rphan-guaif enesin (ROBITUSSIN DM) 10-100 mg/5 mL solution 10 mL 2022-04 21:31: 42 Yes 10mL 10 mL, Oral, Q6HPRN, Starting on Thu02/02/23 at 1631, Until Discontinu ed, Routine, Cough [facility] sodium hypochlorit e 0.5% (DAKINS) solution 16 oz 2022-04 14:00: 00 Yes 16[oz_a v] 16 oz, Topical, DAILY, First dose on Thu01/30/23 at 0900, Until Discontinu ed, Routine [facility] sodium hypochlorit e 0.5% solution 2022-04 00:00: 00 Yes [id number] 16[oz_a v] Apply 473 mL to area(s) in the morning. [facility] metoprolol succinate XL 25 mg 24 hr tablet 2022-04 00:00: 00 03-02 05:59 :00 No [id number] 12.5mg Take 0.5 tablets by mouth in the morning for 30 days. [facility] Vitamin E (E-PHEROL) 400 unit Tab 2022-04 14:48: 25 Yes 2{tbl} Take 2 tablets by mouth daily. [facility] latanoprost (XALATAN) 0.005 % ophthalmic drops 2022-04 14:48: 25 Yes 1[drp] 1 Drop every evening. [facility] brimonidine (ALPHAGAN) 0.2 % ophthalmic solution 2022-04 14:48: 25 Yes 1[drp] Take 1 Drop in the morning and 1 Drop at noon and 1 Drop in the evening. [facility] melatonin 10 mg Tab 2022-04 14:48: 25 Yes 10mg Take 10 mg by mouth at bedtime. [facility] acetaminoph en 500 mg tablet 2022-04 14:48: 25 Yes 1000mg Take 2 tablets by mouth at bedtime. [facility] mv-mn/iron/ folic acid/herb 190 (VITAMIN D3 COMPLETE ORAL) 2022-04 14:48: 25 Yes 5000U/d Take 5,000 Units/day by mouth daily. [facility] timolol 0.25 % ophthalmic solution 2022-04 14:48: 25 Yes 1[drp] Place 1 Drop in both eyes in the morning and 1 Drop in the evening. [facility] trazodone HCl (TRAZODONE ORAL) 2022-04 14:48: 25 Yes 25mg Take 25 mg by mouth at bedtime. [facility] polyethylen e glycol 3350 (MIRALAX) 17 gram/dose powder 2022-04 14:48: 25 Yes 17g Take 17 g by mouth in the morning. [facility] amoxicillin -clavulanat e (AUGMENTIN) 875-125 mg per tablet 1 tablet 2022-04 01:00: 00 02-12 01:59 :00 No 1{tbl} 1 tablet, Oral, Q12H, 28 doses, First dose on Thu01/28/23 at 2000, Last dose on Thu02/11/23 at 0800, Routine
Reason for Anti-Infec tive: Documented Infection< br>Documen nichole Infection Site: Skin / Soft Tissue
Duration of Therapy: 14 days [facility] levoFLOXaci n (LEVAQUIN) tablet 750 mg 2022-04 20:45: 00 02-11 14:59 :00 No 750mg 750 mg, Oral, DAILY, 14 doses, First dose on Thu01/28/23 at 1545, Last dose on Thu02/10/23 at 0900, Routine
Reason for Anti-Infec tive: Documented Infection< br>Documen nichole Infection Site: Skin / Soft Tissue
Duration of Therapy: 14 days [facility] isaiah dodson (ROBITUSSIN DM) 10-100 mg/5 mL solution 10 mL 2022-04 14:33: 23 Yes 10mL 10 mL, Oral, Q6HPRN, Starting on Thu01/28/23 at 0933, Until Discontinu ed, Routine, Cough [facility] levoFLOXaci n 750 mg tablet 2022-04 00:00: 00 02-12 05:59 :00 No [id number] 750mg Take 1 tablet by mouth in the morning for 14 days. [facility] amoxicillin -clavulanat e 875-125 mg per tablet 2022-04 00:00: 00 02-12 05:59 :00 No [id number] 1{tbl} Take 1 tablet by mouth in the morning and 1 tablet in the evening. Do all this for 14 days. [facility] collagenase (SANTYL) ointment 2022-04 14:00: 00 Yes Topical (Apply To Affected Areas), DAILY, First dose on Thu01/27/23 at 0900, Until Discontinu ed, Routine [facility] zolpidem (AMBIEN) tablet 5 mg 2022-04 02:35: 19 Yes 5mg 5 mg, Oral, QHSPRN, Starting on Thu01/26/23 at 2135, Until Discontinu ed, Routine, Insomnia [facility] metoprolol succinate XL (TOPROL XL) tablet 12.5 mg 2022-04 14:00: 00 Yes 12.5mg 12.5 mg, Oral, DAILY, First dose on Thu01/26/23 at 0900, Until Discontinu ed, Routine [facility] Vitamin E (dl, acetate) capsule 400 Units 2022-04 14:00: 00 Yes 400U 400 Units, Oral, DAILY, First dose on Thu01/26/23 at 0900, Until Discontinu ed [facility] polyethylen e glycol 3350 powder 17 g 2022-04 14:00: 00 Yes 17g 17 g, Oral, DAILY, First dose on Thu01/26/23 at 0900, Until Discontinu ed [facility] omeprazole (PRILOSEC) capsule 20 mg 2022-04 14:00: 00 Yes 20mg 20 mg, Oral, DAILY, First dose on Thu01/26/23 at 0900, Until Discontinu ed, Routine [facility] lactobacill us acidophilus tablet 0.5 mg 2022-04 14:00: 00 Yes .5mg 0.5 mg, Oral, DAILY, First dose on Thu01/26/23 at 0900, Until Discontinu ed, Routine [facility] docusate (COLACE) 50 mg/5 mL solution 50 mg 2022-04 14:00: 00 Yes 50mg 50 mg, Oral, DAILY, First dose on Thu01/26/23 at 0900, Until Discontinu ed, Routine [facility] zolpidem (AMBIEN) tablet 5 mg 2022-04 06:30: 00 01-26 05:58 :00 No 5mg 5 mg, Oral, ONCE, 1 dose, On Thu01/26/23 at 0130, Routine [facility] heparin (porcine) injection 5,000 Units 2022-04 03:00: 00 Yes 5000U 5,000 Units, Subcutaneo us, Q8H, First dose on Thu01/25/23 at 2200, Until Discontinu ed, Routine [facility] cefTRIAXone (ROCEPHIN) 1,000 mg in NaCl 0.9% [...]
D uration of [facility]: [facility] traZOD[facility] (DESYREL) tablet 25 mg 2022-04 02:00: 00 Yes 25mg 25 mg, Oral, QHS, First dose on 01/25/23 at 2100, Until Discontinu ed [facility] timolol (TIMOPTIC) 0.5 % ophthalmic solution 1 Drop 2022-04 02:00: 00 Yes 1[drp] 1 Drop, Both Eyes, BID, First dose on 01/25/23 at 2100, Until Discontinu ed, Routine [facility] risperiDONE (RISPERDAL) tablet 4 mg 2022-04 02:00: 00 Yes 4mg 4 mg, Oral, QHS, First dose on 01/25/23 at 2100, Until Discontinu ed, Routine [facility] melatonin (MELATIN) tablet 10.5 mg 2022-04 02:00: 00 Yes 10mg 10.5 mg (rounded from 10 mg), Oral, QHS, First dose on 01/25/23 at 2100, Until Discontinu ed [facility] latanoprost (XALATAN) 0.005 % ophthalmic drops 1 Drop 2022-04 02:00: 00 Yes 1[drp] 1 Drop, Both Eyes, QHS, First dose on 01/25/23 at 2100, Until Discontinu ed, Routine [facility] donepeziL (ARICEPT) tablet 10 mg 2022-04 02:00: 00 Yes 10mg 10 mg, Oral, QHS, First dose on 01/25/23 at 2100, Until [facility]continu ed [facility] dox[facility] (CARDURA) tablet 1 mg 2022-04 02:00: 00 Yes 1mg 1 mg, Oral, QHS, First dose on 01/25/23 at 2100, Until Discontinu ed, Routine [facility] acetaminoph en (TYLENOL) tablet 1,000 mg 2022-04 02:00: 00 Yes 1000mg 1,000 mg, Oral, QHS, First dose on 01/25/23 at 2100, Until Discontinu ed, [facility] brimon[facility] (ALPHAGAN[facility] 0.2 % ophthalmic solution 1 Drop 2022-04 02:00: 00 Yes 1[drp] 1 Drop, Both Eyes, BID, First dose on Thu01/25/23 at 2100, Until Discontinu ed, Routine [facility] simvastatin (ZOCOR) tablet 40 mg 2022-04 02:00: 00 01-27 22:47 :39 No 40mg 40 mg, Oral, QHS, First dose on Thu01/25/23 at 2100, Until Discontinu ed, Routine [facility] guaiFENesin 100 mg/5 mL solution 200 mg 2022-04 00:20: 03 01-28 14:34 :14 No 200mg 200 mg, Oral, Q4HPRN, Starting on Thu01/25/23 at 1920, Until Thu01/28/23 at 0934, Routine, Cough [facility] vancomycin 1,250 mg in NaCl 0.9% (NS) [...]
Du ration of therapy: 72 hours [facility] ondansetron (ZOFRAN (PF)) injection 4 mg 2022-04 22:25: 28 Yes 4mg 4 mg, Slow IV Push, Q6HPRN, Starting on Thu01/25/23 at 1725, Until Discontinu ed, Routine, Nausea and Vomiting (N/V) [facility] acetaminoph en (TYLENOL) tablet 650 mg 2022-04 22:25: 21 Yes 650mg 650 mg, Oral, Q6HPRN, Starting on Thu01/25/23 at 1725, Until Discontinu ed, Routine, Pain (scale 1-3) [facility] ampicillin- sulbactam (UNASYN) 3 g in NaCl 0.9% (NS) 100 mL MINI-BAG 2022-04 20:15: 00 01-25 21:19 :00 No 3g 3 g, IV Piggyback, ONCE, 1 dose, On Thu01/25/23 at 1515, Administer over 30 Minutes, 100 mL
Reas on for Anti-Infec tive: Documented Infection< br>Documen nichole Infection Site: Skin / Soft Tissue
Duration of Therapy: 7 days [facility] Fish Oil-DHA-EPA 1,200-144-2 16 mg Cap 2022-04 18:31: 29 01-25 00:00 :00 No 1{capsu le} Take 1 capsule by mouth daily. [facility] collagenase (SANTYL) ointment 12-01 16:00: 00 Yes Topical (Apply To Affected Areas), DAILY, First dose on Thu12/01/22 at 1100, Until Discontinu ed, Routine [facility] Vitamin E (E-PHEROL) 400 unit Tab 12-01 15:03: 18 Yes 2{tbl} Take 2 tablets by mouth daily. [facility] latanoprost (XALATAN) 0.005 % ophthalmic drops 12-01 15:03: 18 Yes 1[drp] 1 Drop every evening. [facility] brimonidine (ALPHAGAN) 0.2 % ophthalmic solution 12-01 15:03: 18 Yes 1[drp] Take 1 Drop in the morning and 1 Drop at noon and 1 Drop in the evening. [facility] Fish Oil-DHA-EPA 1,200-144-2 16 mg Cap 12-01 15:03: 18 Yes 1{capsu le} Take 1 capsule by mouth daily. [facility] melatonin 10 mg Tab 12-01 15:03: 18 Yes 10mg Take 10 mg by mouth at bedtime. [facility] acetaminoph en 500 mg tablet 12-01 15:03: 18 Yes 1000mg Take 2 tablets by mouth at bedtime. [facility] mv-mn/iron/ folic acid/herb 190 (VITAMIN D3 COMPLETE ORAL) 12-01 15:03: 18 Yes 5000U/d Take 5,000 Units/day by mouth daily. [facility] timolol 0.25 % ophthalmic solution 12-01 15:03: 18 Yes 1[drp] Place 1 Drop in both eyes in the morning and 1 Drop in the evening. [facility] trazodone HCl (TRAZODONE ORAL) 12-01 15:03: 18 Yes 25mg Take 25 mg by mouth at bedtime. [facility] risperiDONE (RISPERDAL) tablet 4 mg 12-01 02:00: 00 Yes 4mg 4 mg, Oral, QHS, First dose (after last modificati on) on 11/30/22 at 2100, Until Discontinu ed, Routine [facility] clindamycin 75 mg/5 mL suspension 12-01 00:00: 00 12-10 04:59 :00 No [id number] 150mg Take 10 mL by mouth 4 (four) times daily for 8 days. [facility] tamsulosin (FLOMAX) capsule 0.4 mg 11-30 14:00: 00 Yes .4mg 0.4 mg, Oral, DAILY, First dose on 11/30/22 at 0900, Until Discontinu ed, Routine [facility] omeprazole (PRILOSEC) capsule 20 mg 11-30 14:00: 00 Yes 20mg 20 mg, Oral, DAILY, First dose on 11/30/22 at 0900, Until Discontinu ed, Routine [facility] docusate (COLACE) 50 mg/5 mL solution 100 mg 11-30 14:00: 00 Yes 100mg 100 mg, Oral, DAILY, First dose on 11/30/22 at 0900, Until Discontinu ed, Routine [facility] glycerin/mi neral oil (AGLO ENEMA) (COMPOUNDED ) Enem 225 mL 11-30 14:00: 00 11-30 14:49 :00 No 225mL 225 mL, Rectal, ONCE, 1 dose, On 11/30/22 at 0900, Routine [facility] timolol (TIMOPTIC) 0.5 % ophthalmic solution 1 Drop 11-30 13:00: 00 Yes 1[drp] 1 Drop, Both Eyes, BID, First dose on 11/30/22 at 0800, Until Discontinu ed, Routine [facility] brimonidine (ALPHAGAN) 0.2 % ophthalmic solution 1 Drop 11-30 13:00: 00 Yes 1[drp] 1 Drop, Both Eyes, TID, First dose on 11/30/22 at 0800, Until Discontinu ed, Routine [facility] clindamycin in 5 % dextrose (CLEOCIN) 600 mg/50 mL IV piggyback RTU 600 mg 11-30 07:15: 00 12-05 07:14 :00 No 600mg 600 mg, IV Piggyback, Q8H ABX, 15 doses, First dose on Thu11/30/22 at 0215, Last dose on Thu12/04/22 at 1815, Administer over 30 Minutes, 50 mL
Reas on for Anti-Infec tive: Empiric Therapy for Suspected Infection< br>Empiric Therapy Site: Skin / Soft tissue
Duration of therapy: 5 days
Re stricted use approved by: After Hours (for ADC, CLC, LCC ONLY) [facility] NaCl 0.9% (NS) IV infusion 1,000 mL 11-30 03:15: 00 11-30 03:02 :43 No 1000mL at 75 mL/hr, IV Infusion, ONCE, 1 dose, On 11/29/22 at 2215, Routine [facility] heparin (porcine) injection 5,000 Units 11-30 03:00: 00 Yes 5000U 5,000 Units, Subcutaneo us, Q8H, First dose on 11/29/22 at 2200, Until Discontinu ed, Routine [facility] risperiDONE (RISPERDAL) tablet 4 mg 11-30 02:30: 00 11-30 22:24 :26 No 4mg 4 mg, Oral, QPM, First dose (after last modificati on) on 11/29/22 at 2130, Until Discontinu ed, Routine [facility] simvastatin (ZOCOR) tablet 40 mg 11-30 02:00: 00 Yes 40mg 40 mg, Oral, QHS, First dose on 11/29/22 at 2100, Until Discontinu ed, Routine [facility] melatonin (MELATIN) tablet 10.5 mg 11-30 02:00: 00 Yes 10mg 10.5 mg (rounded from 10 mg), Oral, QHS, First dose on 11/29/22 at 2100, Until Discontinu ed [facility] traZODone (DESYREL) tablet 25 mg 11-30 01:47: 26 Yes 25mg 25 mg, Oral, QHSPRN, Starting on 11/29/22 at 2046, Until Discontinu ed, Insomnia [facility] dextrometho rphan-guaif enesin (ROBITUSSIN DM) 10-100 mg/5 mL solution 10 mL 11-30 01:41: 51 Yes 10mL 10 mL, Oral, Q6HPRN, Starting on 11/29/22 at 2040, Until Discontinu ed, Routine, Cough [facility] acetaminoph en (TYLENOL) tablet 650 mg 11-30 00:19: 33 Yes 650mg 650 mg, Oral, Q6HPRN, Starting on 11/29/22 at 1919, Until Discontinu ed, Routine, Pain (scale 1-3) [facility] NaCl 0.9% (NS) bolus infusion 1,000 mL 11-29 23:45: 00 11-29 23:11 :00 No 1000mL at 999 mL/hr, 1,000 mL, IV Piggyback, ONCE, 1 dose, On 11/29/23 at 1845, STAT [facility] LORazepam (ATIVAN) injection 0.5 mg 11-29 23:00: 00 11-29 23:09 :00 No .5mg 0.5 mg, Slow IV Push, ONCE, 1 dose, On Thu11/29/22 at 1800, STAT [facility] lactulose (CEPHULAC) solution 30 mL 11-26 23:00: 00 11-27 01:06 :00 No 30mL 30 mL, Oral, ONCE, 1 dose, On Thu11/26/22 at 1800, ROCKY [facility] iopamidol (ISOVUE 370-500 mL) injection 80 mL 11-26 22:45: 00 11-26 22:45 :00 No [id number] 80mL 80 mL, Intravenou s, ONCE, 1 dose, On Thu11/26/22 at 1745, Routine [facility] NaCl 0.9% (NS) bolus infusion 500 mL 11-26 19:15: 00 11-26 20:30 :00 No 500mL at 999 mL/hr, 500 mL, IV Infusion, ONCE, 1 dose, On Thu11/26/22 at 1415, STAT [facility] doxazosin 2 mg tablet 11-11 00:00: 00 Yes 1mg Take 0.5 tablets by mouth at bedtime. [facility] Vitamin E (E-PHEROL) 400 unit Tab 10-30 14:25: 29 Yes 2{tbl} Take 2 tablets by mouth daily. [facility] latanoprost (XALATAN) 0.005 % ophthalmic drops 10-30 14:25: 29 Yes 1[drp] 1 Drop every evening. [facility] brimonidine (ALPHAGAN) 0.2 % ophthalmic solution 10-30 14:25: 29 Yes 1[drp] Take 1 Drop in the morning and 1 Drop at noon and 1 Drop in the evening. [facility] Fish Oil-DHA-EPA 1,200-144-2 16 mg Cap 10-30 14:25: 29 Yes 1{capsu le} Take 1 capsule by mouth daily. [facility] melatonin 10 mg Tab 10-30 14:25: 29 Yes 10mg Take 10 mg by mouth at bedtime. [facility] acetaminoph en 500 mg tablet 10-30 14:25: 29 Yes 1000mg Take 2 tablets by mouth at bedtime. [facility] mv-mn/iron/ folic acid/herb 190 (VITAMIN D3 COMPLETE ORAL) 10-30 14:25: 29 Yes 5000U/d Take 5,000 Units/day by mouth daily. [facility] timolol 0.25 % ophthalmic solution 10-30 14:25: 29 Yes 1[drp] Place 1 Drop in both eyes in the morning and 1 Drop in the evening. [facility] trazodone HCl (TRAZODONE ORAL) 10-30 14:25: 29 Yes 25mg Take 25 mg by mouth at bedtime. [facility] collagenase (SANTYL) ointment 10-30 14:00: 00 Yes Topical (Apply To Affected Areas), DAILY, First dose (after last modificati on) on Thu10/30/22 at 0900, Until Discontinu ed, Routine [facility] dextrometho rphan-guaif enesin 10-100 mg/5 mL solution 10-30 00:00: 00 Yes [id number] 10mL Take 10 mL by mouth every 6 (six) hours as needed for Cough. [facility] amoxicillin -pot clavulanate (AUGMENTIN) 250-62.5 mg/5 mL suspension 10-30 00:00: 00 11-07 04:59 :00 No [id number] 500mg Take 10 mL by mouth in the morning and 10 mL at noon and 10 mL in the evening. Do all this for 7 days. [facility] predniSONE 5 mg/5 mL solution 10-30 00:00: 00 11-05 04:59 :00 No [id number] 20mg Take 20 mL by mouth in the morning for 5 days. [facility] codeine-gua ifenesin (ROBITUSSIN AC) 10-100 mg/5 mL oral solution 5 mL 10-29 17:49: 39 Yes [id number] 5mL 5 mL, Oral, Q6HPRN, Starting on Thu10/29/22 at 1249, Until Discontinu ed, Routine, Cough [facility] latanoprost (XALATAN) 0.005 % ophthalmic drops 1 Drop 10-29 02:45: 00 Yes 1[drp] 1 Drop, Both Eyes, QPM, First dose on Thu10/28/22 at 2145, Until Discontinu ed, [facility] br[facility] (ALPHAGAN[facility] 0.2 % ophthalmic solution 1 Drop 10-29 02:45: 00 Yes 1[drp] 1 Drop, Both Eyes, BID, First dose on Thu10/28/22 at 2145, Until Discontinu ed, [facility] timolol (TIMOPTIC) 0.25 % ophthalmic solution 1 Drop 10-29 02:45: 00 Yes 1[drp] 1 Drop, Both Eyes, BID, First dose on Thu10/28/22 at 2145, Until Discontinu ed, [facility]ine [facility] traZODone (DESYREL) tablet 25 mg 10-29 02:00: 00 Yes 25mg 25 mg, Oral, QHS, First dose on Thu10/28/22 at 2100, Until Discontinu ed [facility] simvastatin (ZOCOR) tablet 40 mg 10-29 02:00: 00 Yes 40mg 40 mg, Oral, QHS, First dose on Thu10/28/22 at 2100, Until Discontinu ed, Routine [facility] risperiDONE (RISPERDAL) tablet 4 mg 10-28 22:00: 00 Yes 4mg 4 mg, Oral, QPM, First dose on Thu10/28/22 at 1700, Until Discontinu ed, Routine [facility] enoxaparin (LOVENOX) injection 40 mg 10-28 14:00: 00 Yes 40mg 40 mg, Subcutaneo us, DAILY, First dose on Thu10/28/22 at 0900, Until Discontinu ed, Routine [facility] omeprazole (PRILOSEC) capsule 20 mg 10-28 14:00: 00 Yes 20mg 20 mg, Oral, DAILY, First dose on Thu10/28/22 at 0900, Until Discontinu ed, Routine [facility] lactobacill us acidophilus tablet 0.5 mg 10-28 14:00: 00 Yes .5mg 0.5 mg, Oral, DAILY, First dose on Thu10/28/22 at 0900, Until Discontinu ed, Routine [facility] docusate (COLACE) 50 mg/5 mL solution 100 mg 10-28 14:00: 00 Yes 100mg 100 mg, Oral, DAILY, First dose on Thu10/28/22 at 0900, Until Discontinu ed, Routine [facility] ipratropium -albuteroL (DUONEB) 0.5 mg-3 mg(2.5 mg base)/3 mL nebulizer solution 3 mL 10-28 13:00: 00 Yes 3mL 3 mL, Inhalation , QID, First dose on Thu10/28/22 at 0800, Until Discontinu ed, Routine [facility] galantamine (REMINYL) tablet 8 mg 10-28 13:00: 00 Yes 8mg 8 mg, Oral, BID, First dose on Thu10/28/22 at 0800, Until Discontinu ed, Routine [facility] glucagon (GLUCAGEN DIAGNOSTIC KIT) injection 1 mg 10-28 12:15: 24 Yes 1mg 1 mg, Intramuscu lar, PRN, Starting on Thu10/28/22 at 0715, Until Discontinu ed, ORCKY, Blood Glucose < or = 70 mg/dL and patient is NPO, unable to swallow or has mental changes. [facility] dextrose 50 % in water (D50W) injection 25 mL 10-28 12:15: 24 Yes 25mL 25 mL, Slow IV Push, PRN, Starting on Thu10/28/22 at 0715, Until Discontinu ed, ROCKY, Blood Glucose < or = 70 mg/dL and patient is NPO, unable to swallow or has mental status changes. [facility] ondansetron (ZOFRAN (PF)) injection 4 mg 10-28 11:43: 22 Yes 4mg 4 mg, Slow IV Push, Q6HPRN, Starting on Thu10/28/22 at 0643, Until Discontinu ed, Routine, Nausea and Vomiting (N/V) [facility] acetaminoph en (TYLENOL) tablet 650 mg 10-28 11:43: 10 Yes 650mg 650 mg, Oral, Q6HPRN, Starting on Thu10/28/22 at 0643, Until Discontinu ed, Routine, Pain (scale 1-3) [facility] acetaminoph en (TYLENOL) tablet 650 mg 10-28 06:45: 00 10-28 07:25 :00 No 650mg 650 mg, Oral, ONCE, 1 dose, On Thu10/28/22 at 0145, ROCKY [facility] NaCl 0.9% (NS) injection 5 mL 10-28 06:37: 55 Yes 5mL 5 mL, Slow IV Push, PRN - SEE INSTRUCTIO NS, Starting on Thu10/28/22 at 0137, Until Discontinu ed, 10 mL [facility] Vitamin E (E-PHEROL) 400 unit Tab 08-27 14:48: 28 Yes 2{tbl} Take 2 tablets by mouth daily. [facility] latanoprost (XALATAN) 0.005 % ophthalmic drops 08-27 14:48: 28 Yes 1[drp] 1 Drop every evening. [facility] brimonidine (ALPHAGAN) 0.2 % ophthalmic solution 08-27 14:48: 28 Yes 1[drp] Take 1 Drop in the morning and 1 Drop at noon and 1 Drop in the evening. [facility] Fish Oil-DHA-EPA 1,200-144-2 16 mg Cap 08-27 14:48: 28 Yes 1{capsu le} Take 1 capsule by mouth daily. [facility] melatonin 10 mg Tab 08-27 14:48: 28 Yes 10mg Take 10 mg by mouth at bedtime. [facility] acetaminoph en 500 mg tablet 08-27 14:48: 28 Yes 1000mg Take 2 tablets by mouth at bedtime. [facility] mv-mn/iron/ folic acid/herb 190 (VITAMIN D3 COMPLETE ORAL) 08-27 14:48: 28 Yes 5000U/d Take 5,000 Units/day by mouth daily. [facility] timolol 0.25 % ophthalmic solution 08-27 14:48: 28 Yes 1[drp] Place 1 Drop in both eyes in the morning and 1 Drop in the evening. [facility] tamsulosin (FLOMAX) 0.4 mg 24 hr capsule 08-27 00:00: 00 01-25 00:00 :00 No [id number] .4mg Take 1 capsule by mouth in the morning. [facility] docusate 50 mg/5 mL solution 07-27 00:00: 00 Yes [id number] 100mg Take 10 mL by mouth in the morning. [facility] collagenase 250 unit/gram ointment 07-27 00:00: 00 08-07 04:59 :00 No [id number] Apply to affected area(s) daily for 10 days. [facility] risperiDONE (RISPERDAL) tablet 2 mg 07-26 22:00: 00 Yes 2mg 2 mg, Oral, QPM, First dose (after last modificati on) on 07/26/22 at 1700, Until Discontinu ed, Routine [facility] Vitamin E (E-PHEROL) 400 unit Tab 07-26 16:43: 26 Yes 2{tbl} Take 2 tablets by mouth daily. [facility] latanoprost (XALATAN) 0.005 % ophthalmic drops 07-26 16:43: 26 Yes 1[drp] 1 Drop every evening. [facility] brimonidine (ALPHAGAN) 0.2 % ophthalmic solution 07-26 16:43: 26 Yes 1[drp] Take 1 Drop in the morning and 1 Drop at noon and 1 Drop in the evening. [facility] Fish Oil-DHA-EPA 1,200-144-2 16 mg Cap 07-26 16:43: 26 Yes 1{capsu le} Take 1 capsule by mouth daily. [facility] melatonin 10 mg Tab 07-26 16:43: 26 Yes 10mg Take 10 mg by mouth at bedtime. [facility] acetaminoph en 500 mg tablet 07-26 16:43: 26 Yes 1000mg Take 2 tablets by mouth at bedtime. [facility] mv-mn/iron/ folic acid/herb 190 (VITAMIN D3 COMPLETE ORAL) 07-26 16:43: 26 Yes 5000U/d Take 5,000 Units/day by mouth daily. [facility] timolol 0.25 % ophthalmic solution 07-26 16:43: 26 Yes 1[drp] Place 1 Drop in both eyes in the morning and 1 Drop in the evening. [facility] amoxicillin -clavulanat e 400-57 mg/5 mL suspension 07-26 00:00: 00 08-22 04:59 :00 No [id number] 800mg Take 10 mL by mouth in the morning and 10 mL in the evening. Do all this for 52 doses. [facility] SODIUM HYPOCHLORIT E 0.025% Soln solution 07-26 00:00: 00 07-28 04:59 :00 No [id number] 1000mL Apply 1,000 mL to area(s) in the morning for 1 dose. [facility] amoxicillin -clavulanat e (AUGMENTIN) 875-125 [...] Tissue
Duration of Therapy: Other (see Comments) [facility] LORazepam (ATIVAN) injection 1 mg 07-25 18:15: 00 07-25 18:04 :00 No 1mg 1 mg, Slow IV Push, ONCE, 1 dose, On Thu07/25/22 at 1315, Routine [facility] iopamidol (ISOVUE 370-500 mL) injection 80 mL 07-25 18:09: 00 07-25 18:11 :00 No [id number] 80mL 80 mL, Intravenou s, ONCE, 1 dose, On Thu07/25/22 at 1330, Routine [facility] amoxicillin -clavulanat e (AUGMENTIN) 875-125 mg per tablet 1 tablet 07-25 04:00: 00 07-25 12:22 :33 No 1{tbl} 1 tablet, Oral, Q12H, 56 doses, First dose on Thu07/24/22 at 2300, Last dose on Thu08/21/22 at 0800, Routine
Reason for Anti-Infec tive: Documented Infection< br>Documen nichole Infection Site: Skin / Soft Tissue
Duration of Therapy: Other (see Comments) [facility] levalbutero l (XOPENEX) nebulizer solution 0.63 mg 07-25 02:51: 00 Yes .63mg 0.63 mg, Inhalation , TIDPRN, Starting on Thu07/24/22 at 2151, Until Discontinu ed, Routine, Wheezing, Shortness of Breath [facility] ipratropium (ATROVENT) 0.02 % nebulizer solution 0.5 mg 07-25 02:22: 54 Yes .5mg 0.5 mg, Inhalation , Q4HPRN, Starting on Thu07/24/22 at 2122, Until Discontinu ed, Routine, Wheezing, Shortness of Breath, Bronchospa sm, Chest tightness [facility] codeine-gua ifenesin (ROBITUSSIN AC) 10-100 mg/5 mL oral solution 5 mL 07-25 02:22: 34 Yes 5mL 5 mL, Oral, Q6HPRN, Starting on Thu07/24/22 at 2122, Until Discontinu ed, Routine, Cough [facility] sodium hypochlorit e 0.25% (DAKIN'S SOLUTION) solution 07-24 22:00: 00 07-24 21:28 :00 No Topical, ONCE, 1 dose, On Thu07/24/22 at 1700, Routine [facility] fluconazole (DIFLUCAN) Piggyback 200 mg 07-24 16:15: 00 07-26 16:20 :00 No 200mg at 100 mL/hr, IV Piggyback, Q24H ABX, 3 doses, First dose on Thu07/24/22 at 1115, Last dose on Thu07/26/22 at 1115, ROCKY
Do Not Refrigerat e.
[facility] piperacilli n-tazobacta m (ZOSYN) 3.375 [...] tissue
Duration of therapy: 72 hours [facility] vancomycin (VANCOCIN) 1,000 mg in NaCl 0.9% [...] Soft Tissue
Duration of Therapy: 7 days [facility] Vitamin E (dl, acetate) capsule 800 Units 07-23 14:00: 00 Yes 800U 800 Units, Oral, DAILY, First dose on Thu07/23/22 at 0900, Until Discontinu ed, Routine [facility] lactobacill us acidophilus tablet 0.5 mg 07-23 14:00: 00 Yes .5mg 0.5 mg, Oral, DAILY, First dose on Thu07/23/22 at 0900, Until Discontinu ed, Routine [facility] docusate (COLACE) 50 mg/5 mL solution 100 mg 07-22 15:15: 00 Yes 100mg 100 mg, Oral, DAILY, First dose on Thu07/22/22 at 1015, Until Discontinu ed, Routine [facility] QUEtiapine (SEROQUEL) tablet 25 mg 07-22 04:30: 00 07-22 03:55 :00 No 25mg 25 mg, Oral, ONCE, 1 dose, On Thu07/21/22 at 2330, Routine [facility] simvastatin (ZOCOR) tablet 40 mg 07-22 02:00: 00 Yes 40mg 40 mg, Oral, QHS, First dose on Thu07/21/22 at 2100, Until Discontinu ed, Routine [facility] latanoprost (XALATAN) 0.005 % ophthalmic drops 1 Drop 07-21 22:00: 00 Yes 1[drp] 1 Drop, Both Eyes, QPM, First dose on Thu07/21/22 at 1700, Until Discontinu ed, Routine [facility] piperacilli n-tazobacta m (ZOSYN) 3.375 g in [...]
Duration of therapy: 72 hours [facility] collagenase (SANTYL) ointment 07-21 15:45: 00 Yes Topical (Apply To Affected Areas), DAILY, First dose on Thu07/21/22 at 1045, Until Discontinu ed, Routine [facility] galantamine (REMINYL) tablet 8 mg 07-21 15:15: 00 Yes 8mg 8 mg, Oral, BID, First dose on Thu07/21/22 at 1015, Until Discontinu ed, Routine [facility] tamsulosin (FLOMAX) capsule 0.4 mg 07-21 14:00: 00 Yes .4mg 0.4 mg, Oral, DAILY, First dose on Thu07/21/22 at 0900, Until Discontinu ed, Routine [facility] omeprazole (PRILOSEC) capsule 20 mg 07-21 14:00: 00 Yes 20mg 20 mg, Oral, DAILY, First dose on Thu07/21/22 at 0900, Until Discontinu ed, Routine [facility] enoxaparin (LOVENOX) injection 40 mg 07-21 14:00: 00 Yes 40mg 40 mg, Subcutaneo us, DAILY, First dose on Thu07/21/22 at 0900, Until Discontinu ed, Routine [facility] docusate (COLACE) capsule 100 mg 07-21 14:00: 00 07-22 15:13 :38 No 100mg 100 mg, Oral, DAILY, First dose on Thu07/21/22 at 0900, Until Discontinu ed, Routine [facility] timolol (TIMOPTIC) 0.5 % ophthalmic solution 1 Drop 07-21 13:30: 00 Yes 1[drp] 1 Drop, Both Eyes, BID, First dose on Thu07/21/22 at 0830, Until Discontinu ed, Routine [facility] brimonidine (ALPHAGAN) 0.2 % ophthalmic solution 1 Drop 07-21 13:00: 00 Yes 1[drp] 1 Drop, Both Eyes, TID, First dose on Thu07/21/22 at 0800, Until Discontinu ed, Routine [facility] melatonin (MELATIN) tablet 9 mg 07-21 05:15: 00 Yes 9mg 9 mg, Oral, QHS, First dose (after last modificati on) on Thu07/21/22 at 0015, Until Discontinu ed [facility] acetaminoph en (TYLENOL) tablet 1,000 mg 07-21 05:00: 00 Yes 1000mg 1,000 mg, Oral, QHS, First dose (after last modificati on) on Thu07/21/22 at 0000, Until Discontinu ed, Routine [facility] risperiDONE (RISPERDAL) tablet 4 mg 07-21 05:00: 00 07-26 02:28 :57 No 4mg 4 mg, Oral, QPM, First dose (after last modificati on) on Thu07/21/22 at 0000, Until Discontinu ed, Routine [facility] piperacilli n-tazobacta m (ZOSYN) 3.375 g in [...] Soft tissue
Duration of therapy: 72 hours [facility] NaCl 0.9% (NS) bolus infusion 1,000 mL 07-21 03:15: 00 07-21 02:30 :00 No 1000mL at 999 mL/hr, 1,000 mL, IV Piggyback, ONCE, 1 dose, On Thu07/20/22 at 2215, STAT [facility] ondansetron (ZOFRAN (PF)) injection 4 mg 07-21 02:47: 49 Yes 4mg 4 mg, Slow IV Push, Q6HPRN, Starting on Thu07/20/22 at 2147, Until Discontinu ed, Routine, Nausea and Vomiting (N/V) [facility] HYDROcodone -acetaminop hen (NORCO) 10-325 mg tablet 1 tablet 07-21 02:47: 43 Yes 1{tbl} 1 tablet, Oral, Q6HPRN, Starting on Thu07/20/22 at 2147, Until Discontinu ed, Routine, Pain (scale 7-10) [facility] acetaminoph en (TYLENOL) tablet 650 mg 07-21 02:47: 34 Yes 650mg 650 mg, Oral, Q6HPRN, Starting on Thu07/20/22 at 2147, Until Discontinu ed, Routine, Pain (scale 1-3) [facility] NaCl 0.9% (NS) bolus infusion 1,000 mL 07-18 21:00: 00 07-18 22:16 :00 No 1000mL at 999 mL/hr, 1,000 mL, IV Piggyback, ONCE, 1 dose, On Thu07/18/22 at 1600, STAT [facility] piperacilli n-tazobacta m (ZOSYN) 3.375 g in NaCl 0.9% (NS) 100 mL MINI-BAG 07-18 20:00: 00 07-18 21:09 :00 No 3.375g 3.375 g, IV Piggyback, ONCE, 1 dose, On Thu07/18/22 at 1500, Administer over 30 Minutes, 100 mL
Reas on for Anti-Infec tive: Documented Infection< br>Documen nichole Infection Site: Skin / Soft Tissue
Duration of Therapy: 7 days [facility] cefpodoxime 200 mg tablet 07-18 00:00: 00 08-02 04:59 :00 No [id number] 200mg Take 1 tablet by mouth in the morning and 1 tablet in the evening. Do all this for 14 days. [facility] levoFLOXaci n 750 mg tablet 07-18 00:00: 00 07-29 04:59 :00 No [id number] 750mg Take 1 tablet by mouth every 24 (twenty-fo ur) hours for 10 days. [facility] iopamidol (ISOVUE 370-500 mL) injection 78 mL 06-10 19:45: 00 06-10 19:45 :00 No [id number] 78mL 78 mL, Intravenou s, ONCE, 1 dose, On Thu06/10/22 at 1345, Routine [facility] ondansetron (ZOFRAN (PF)) injection 4 mg 06-10 17:45: 00 06-10 17:13 :00 No 4mg 4 mg, Slow IV Push, ONCE, 1 dose, On Thu06/10/22 at 1145, ROCKY [facility] polyethylen e glycol 3350 powder 17 g 05-28 15:00: 00 Yes 17g 17 g, Oral, DAILY, First dose on Thu05/28/22 at 0900, Until Discontinu ed, Routine [facility] tamsulosin (FLOMAX) capsule 0.4 mg 05-28 15:00: 00 Yes .4mg 0.4 mg, Oral, DAILY, First dose on Thu05/28/22 at 0900, Until Discontinu ed, Routine [facility] omeprazole (PRILOSEC) capsule 20 mg 05-28 15:00: 00 Yes 20mg 20 mg, Oral, DAILY, First dose on Thu05/28/22 at 0900, Until Discontinu ed, Routine [facility] lactobacill us acidophilus tablet 0.5 mg 05-28 15:00: 00 Yes .5mg 0.5 mg, Oral, DAILY, First dose on Thu05/28/22 at 0900, Until Discontinu ed, Routine [facility] Vitamin E (E-PHEROL) 400 unit Tab 05-28 14:50: 45 Yes 2{tbl} Take 2 tablets by mouth daily. [facility] latanoprost (XALATAN) 0.005 % ophthalmic drops 05-28 14:50: 45 Yes 1[drp] 1 Drop every evening[facility] brimonidine (ALPHAGAN) 0.2 % ophthalmic solution 05-28 14:50: 45 Yes 1[drp] 1 Drop 3 (three) times daily. [facility] Fish Oil-DHA-EPA 1,200-144-2 16 mg Cap 05-28 14:50: 45 Yes 1{capsu le} Take 1 capsule by mouth daily. [facility] melatonin 10 mg Tab 05-28 14:50: 45 Yes 10mg Take 10 mg by mouth at bedtime. [facility] acetaminoph en 500 mg tablet 05-28 14:50: 45 Yes 1000mg Take 1,000 mg by mouth at bedtime. [facility] mv-mn/iron/ folic acid/herb 190 (VITAMIN D3 COMPLETE ORAL) 05-28 14:50: 45 Yes 5000U/d Take 5,000 Units/day by mouth daily. [facility] timolol 0.25 % ophthalmic solution 05-28 14:50: 45 Yes 1[drp] Place 1 Drop in both eyes 2 (two) times daily. [facility] acetaminoph en (TYLENOL) tablet 1,000 mg 05-28 03:00: 00 Yes 1000mg 1,000 mg, Oral, QHS, First dose on Thu05/27/22 at 2100, Until Discontinu ed, Routine [facility] simvastatin (ZOCOR) tablet 40 mg 05-28 03:00: 00 Yes 40mg 40 mg, Oral, QHS, First dose on Thu05/27/22 at 2100, Until Discontinu ed, Routine [facility] melatonin (MELATIN) tablet 9 mg 05-28 03:00: 00 Yes 9mg 9 mg, Oral, QHS, First dose on Thu05/27/22 at 2100, Until Discontinu ed [facility] docusate (COLACE) capsule 100 mg 05-28 02:00: 00 Yes 100mg 100 mg, Oral, BID, First dose on Thu05/27/22 at 2000, Until Discontinu ed, Routine [facility] galantamine (REMINYL) tablet 8 mg 05-28 02:00: 00 Yes 8mg 8 mg, Oral, BID, First dose on Thu05/27/22 at 2000, Until Discontinu ed, Routine [facility] timolol (TIMOPTIC) 0.5 % ophthalmic solution 1 Drop 05-28 02:00: 00 Yes 1[drp] 1 Drop, Both Eyes, BID, First dose on Thu05/27/22 at 2000, Until Discontinu ed [facility] amoxicillin -clavulanat e (AUGMENTIN) 875-125 mg per tablet 05-28 00:00: 00 06-02 05:59 :00 No [id number] 1{tbl} Take 1 tablet by mouth in the morning and 1 tablet in the evening. Do all this for 4 days. [facility] risperiDONE (RISPERDAL) tablet 4 mg 05-27 23:00: 00 Yes 4mg 4 mg, Oral, QPM, First dose on Thu05/27/22 at 1700, Until Discontinu ed, Routine [facility] latanoprost (XALATAN) 0.005 % ophthalmic drops 1 Drop 05-27 23:00: 00 Yes 1[drp] 1 Drop, Both Eyes, QPM, First dose on Thu05/27/22 at 1700, Until Discontinu ed, Routine [facility] piperacilli n-tazobacta m (ZOSYN) 3.375 g in [...] Abdominal< br>Duratio n of Therapy: 7 days [facility] lactulose (CEPHULAC) solution 30 mL 05-27 15:45: 00 05-27 16:31 :00 No 30mL 30 mL, Oral, ONCE, 1 dose, On Thu05/27/22 at 0945, Routine [facility] enoxaparin (LOVENOX) injection 40 mg 05-27 15:00: 00 Yes 40mg 40 mg, Subcutaneo us, DAILY, First dose on Thu05/27/22 at 0900, Until Discontinu ed, Routine [facility] aspirin 81 mg EC tablet 05-27 11:23: 35 05-27 00:00 :00 No 81mg Take 81 mg by mouth daily. [facility] piperacilli n-tazobacta m (ZOSYN) 3.375 g in NaCl 0.9% (NS) 100 mL MINI-BAG 05-27 09:30: 00 05-27 10:36 :00 No 3.375g 3.375 g, IV Piggyback, ONCE, 1 dose, On Thu05/27/22 at 0330, Administer over 30 Minutes, 100 mL
Reas on for Anti-Infec tive: Documented Infection< br>Documen nichole Infection Site: Abdominal< br>Duratio n of Therapy: 7 days [facility] NaCl 0.9% (NS) IV infusion 1,000 mL 05-27 04:15: 00 05-27 12:39 :00 No 1000mL at 125 mL/hr, IV Infusion, ONCE, 1 dose, On Thu05/26/22 at 2215, Routine [facility] ondansetron (ZOFRAN (PF)) injection 4 mg 05-27 03:29: 20 Yes 4mg 4 mg, Slow IV Push, Q6HPRN, Starting on Thu05/26/22 at 2128, Until Discontinu ed, Routine, Nausea and Vomiting (N/V) [facility] traMADoL (ULTRAM) tablet 50 mg 05-27 03:29: 11 05-29 03:28 :11 No 50mg 50 mg, Oral, Q8HPRN, Starting on Thu05/26/22 at 2128, Until Thu05/28/22 at 2127, Routine, Pain (scale 4-6) [facility] acetaminoph en (TYLENOL) tablet 650 mg 05-27 03:29: 08 Yes 650mg 650 mg, Oral, Q6HPRN, Starting on Thu05/26/22 at 2128, Until Discontinu ed, Routine, Pain (scale 1-3) [facility] cefTRIAXone (ROCEPHIN) 1,000 mg in NaCl 0.9% (NS) 100 mL MINI-BAG 05-27 02:45: 00 05-27 03:18 :00 No 1000mg 1,000 mg, IV Piggyback, ONCE, 1 dose, On Thu05/26/22 at 2045, Administer over 30 Minutes, 100 mL
Reas on for Anti-Infec tive: Documented Infection< br>Documen nichole Infection Site: Abdominal< br>Duratio n of Therapy: 7 days [facility] ondansetron (ZOFRAN (PF)) injection 4 mg 05-27 00:15: 00 05-27 00:10 :00 No 4mg 4 mg, Slow IV Push, ONCE, 1 dose, On Thu05/26/22 at 1815, ROCKY [facility] ciprofloxac in HCl (CIPRO) tablet 500 mg 05-06 03:00: 00 05-11 02:59 :00 No 500mg 500 mg, Oral, Q12H ABX, 10 doses, First dose on Thu05/05/22 at 2100, Last dose on Thu05/10/22 at 0900, ROCKY
Re ason for Anti-Infec tive: Documented Infection< br>Documen nichole Infection Site: Abdominal< br>Duratio n of Therapy: 7 days [facility] metroNIDAZO LE (FLAGYL) tablet 500 mg 05-06 02:00: 00 05-11 01:59 :00 No 500mg 500 mg, Oral, Q12H, 10 doses, First dose on Thu05/05/22 at 2000, Last dose on Thu05/10/22 at 0800, Routine
Reason for Anti-Infec tive: Documented Infection< br>Documen inchole Infection Site: Abdominal< br>Duratio n of Therapy: 7 days [facility] lactobacill us acidophilus 05-06 00:00: 00 Yes .5mg Take 1 tablet by mouth in the morning. [facility] hydroCHLORO thiazide 12.5 mg tablet 05-06 00:00: 00 05-26 00:00 :00 No 12.5mg Take 1 tablet by mouth in the morning. [facility] Vitamin E (E-PHEROL) 400 unit Tab 05-05 18:25: 31 Yes 2{tbl} Take 2 tablets by mouth daily. [facility] aspirin 81 mg EC tablet 05-05 18:25: 31 Yes 81mg Take 81 mg by mouth daily. [facility] latanoprost (XALATAN) 0.005 % ophthalmic drops 05-05 18:25: 31 Yes 1[drp] 1 Drop every evening. [facility] brimonidine (ALPHAGAN) 0.2 % ophthalmic solution 05-05 18:25: 31 Yes 1[drp] 1 Drop 3 (three) times daily. [facility] Fish Oil-DHA-EPA 1,200-144-2 16 mg Cap 05-05 18:25: 31 Yes 1{capsu le} Take 1 capsule by mouth daily. [facility] melatonin 10 mg Tab 05-05 18:25: 31 Yes 10mg Take 10 mg by mouth at bedtime. [facility] acetaminoph en 500 mg tablet 05-05 18:25: 31 Yes 1000mg Take 1,000 mg by mouth at bedtime. [facility] diphenhydrA MINE (BENADRYL) tablet 25 mg 05-05 10:43: 00 Yes 25mg 25 mg, Oral, Q6HPRN, Starting on 05/05/22 at 0443, Until Discontinu ed, Routine, Itching [facility] ciprofloxac in HCl 500 mg tablet 05-05 00:00: 00 05-26 00:00 :00 No 500mg Take 1 tablet by mouth every 12 (twelve) hours. [facility] metroNIDAZO LE 500 mg tablet 05-05 00:00: 00 05-26 00:00 :00 No 500mg Take 1 tablet by mouth every 12 (twelve) hours. [facility] diphenhydrA MINE (BENADRYL) tablet 25 mg 05-04 16:15: 00 05-04 16:25 :00 No 25mg 25 mg, Oral, ONCE, 1 dose, On 05/04/22 at 1015, Routine [facility] simvastatin (ZOCOR) tablet 40 mg 05-04 03:00: 00 Yes 40mg 40 mg, Oral, QHS, First dose on 05/03/22 at 2100, Until Discontinu ed, Routine [facility] risperiDONE (RISPERDAL) tablet 2 mg 05-03 23:00: 00 Yes 2mg 2 mg, Oral, QPM, First dose (after last modificati on) on 05/03/22 at 1700, Until Discontinu ed, Routine [facility] latanoprost (XALATAN) 0.005 % ophthalmic drops 1 Drop 05-03 23:00: 00 Yes 1[drp] 1 Drop, Both Eyes, QPM, First dose on 05/03/22 at 1700, Until Discontinu ed, Routine [facility] lactobacill us acidophilus tablet 0.5 mg 05-03 18:00: 00 Yes .5mg 0.5 mg, Oral, DAILY, First dose on 05/03/22 at 1200, Until Discontinu ed, [facility] enox[facility] (LOVENOX) injection 40 mg 05-03 15:00: 00 Yes 40mg 40 mg, Subcutaneo us, DAILY, First dose on 05/03/22 at 0900, Until Discontinu ed, Routine [facility] tamsulosin (FLOMAX) capsule 0.4 mg 05-03 15:00: 00 Yes .4mg 0.4 mg, Oral, DAILY, First dose on 05/03/22 at 0900, Until Discontinu ed, Routine [facility] omeprazole (PRILOSEC) capsule 20 mg 05-03 15:00: 00 Yes 20mg 20 mg, Oral, DAILY, First dose on 05/03/22 at 0900, Until Discontinu ed, Routine [facility] hydroCHLORO thiazide (ESIDRIX) tablet 12.5 mg 05-03 15:00: 00 Yes 12.5mg 12.5 mg, Oral, DAILY, First dose on 05/03/22 at 0900, Until Discontinu ed [facility] aspirin EC tablet 81 mg 05-03 15:00: 00 Yes 81mg 81 mg, Oral, DAILY, First dose on 05/03/22 at 0900, Until Discontinu ed, Routine [facility] brimonidine (ALPHAGAN) 0.2 % ophthalmic solution 1 Drop 05-03 14:00: 00 Yes 1[drp] 1 Drop, Both Eyes, TID, First dose on 05/03/22 at 0800, Until Discontinu ed, Routine [facility] metroNIDAZO LE in NaCl (iso-os) (FLAGYL I.V.) [...] Abdominal< br>Duratio n of Therapy: 7 days [facility] ciprofloxac in in 5 % dextrose (CIPRO) piggyback 400 mg 05-03 06:15: 00 05-05 20:29 :12 No 400mg 400 mg, IV Piggyback, at 200 mL/hr Administer over 60 Minutes, Q12H ABX, First dose on Thu05/03/22 at 0015, Until Discontinu ed, Routine
Reason for Anti-Infec tive: Documented Infection< br>Docu mented Infection Site: Abdominal< br>Duratio n of Therapy: 7 days [facility] haloperidol lactate (HALDOL) injection 2.5 mg 05-03 05:53: 13 Yes 2.5mg 2.5 mg, Slow IV Push, PRN, 2 doses, Starting on Thu05/02/22 at 2353, Until Discontinu ed, Routine, Psychosis [facility] galantamine (REMINYL) tablet 8 mg 05-03 05:15: 00 Yes 8mg 8 mg, Oral, BID, First dose on Thu05/02/22 at 2315, Until Discontinu ed, Routine
Reason for non-formul ramsey use: PATIENT CURRENTLY TAKING NONFORMULA RY PRODUCT [facility] melatonin (MELATIN) tablet 9 mg 05-03 05:15: 00 Yes 9mg 9 mg, Oral, QHS, First dose (after last modificati on) on Thu05/02/22 at 2315, Until Discontinu ed [facility] risperiDONE (RISPERDAL) tablet 4 mg 05-03 05:15: 00 05-03 05:26 :23 No 4mg 4 mg, Oral, QPM, First dose (after last modificati on) on Thu05/02/22 at 2315, Until Discontinu ed, Routine [facility] ondansetron (ZOFRAN (PF)) injection 4 mg 05-03 04:53: 40 Yes 4mg 4 mg, Slow IV Push, Q6HPRN, Starting on Thu05/02/22 at 2253, Until Discontinu ed, Routine, Nausea and Vomiting (N/V) [facility] traMADoL (ULTRAM) tablet 50 mg 05-03 04:53: 31 05-05 04:52 :31 No 50mg 50 mg, Oral, Q8HPRN, Starting on Thu05/02/22 at 2253, Until Thu05/04/22 at 2252, Routine, Pain (scale 4-6) [facility] acetaminoph en (TYLENOL) tablet 650 mg 05-03 04:53: 29 Yes 650mg 650 mg, Oral, Q6HPRN, Starting on Thu05/02/22 at 2253, Until Discontinu ed, Routine, Pain (scale 1-3) [facility] iopamidol (ISOVUE 370-500 mL) injection 100 mL 05-03 02:45: 00 05-03 01:49 :00 No [id number] 100mL 100 mL, Intravenou s, ONCE, 1 dose, On Thu05/02/22 at 2045, Routine [facility] NaCl 0.9% (NS) bolus infusion 1,000 mL 05-03 01:45: 00 05-03 00:44 :00 No 1000mL at 999 mL/hr, 1,000 mL, IV Piggyback, ONCE, 1 dose, On Thu05/02/22 at 1945, STAT [facility] hydroCHLORO thiazide 12.5 mg capsule 05-02 22:53: 50 05-02 00:00 :00 No 12.5mg Take 12.5 mg by mouth daily. [facility] amoxicillin 500 mg tablet 1-13 00:00: 00 04-29 05:59 :00 No [id number] 500mg Take 1 tablet by mouth in the morning and 1 tablet in the evening. Do all this for 10 days. [facility] OMEPRAZOLE 20 mg capsule 10-24 00:00: 00 Yes [id number] Take 1 capsule by mouth once daily [facility] SIMVASTATIN 40 mg tablet 09-24 00:00: 00 01-29 00:00 :00 No [id number] TAKE 1 TABLET BY MOUTH ONCE DAILY AT BEDTIME [facility] galantamine 8 mg tablet 07-31 00:00: 00 Yes [id number] 8mg Take 1 tablet by mouth 2 (two) times daily. [facility] tamsulosin (FLOMAX) 0.4 mg 24 hr capsule 07-29 00:00: 00 08-27 00:00 :00 No [id number] .4mg Take 1 capsule by mouth daily. [facility] hydroCHLORO thiazide 12.5 mg capsule 2020-04 015 15:34: 14 Yes 12.5mg Take 12.5 mg by mouth daily. [facility] Vitamin E (E-PHEROL) 400 unit Tab 08-28 14:21: 44 Yes 1{tbl} Take 1 tablet by mouth daily. [facility] aspirin 81 mg EC tablet 08-28 14:21: 44 Yes 81mg Take 81 mg by mouth daily. [facility] latanoprost (XALATAN) 0.005 % ophthalmic drops 08-28 14:21: 44 Yes 1[drp] 1 Drop every evening. [facility] galantamine 12 mg tablet 08-28 00:00: 00 05-02 00:00 :00 No [id number] 12mg Take 1 tablet by mouth 2 (two) times daily. [facility] risperiDONE (RISPERDAL) 2 mg tablet 2019-04 2-08 00:00: 00 Yes [id number] 4mg Take 2 tablets by mouth every evening. [facility] brimonidine (ALPHAGAN) 0.2 % ophthalmic solution 2017-04 13:40: 32 Yes 1[drp] 1 Drop 3 (three) times daily. [facility] Fish Oil-DHA-EPA 1,200-144-2 16 mg Cap 2017-04 13:40: 32 Yes 1{capsu le} Take 1 capsule by mouth daily. [facility] Immunizations Ordered Immunization Name Filled Immunization Name Date Status Comments Source Influenza High Dose 2021-12-27 00:00:00 Completed [facility] Influenza High Dose 2021-12-27 00:00:00 Completed [facility] Influenza High Dose 2021-12-27 00:00:00 Completed [facility] Influenza High Dose 2021-12-27 00:00:00 Completed [facility] Influenza High Dose 2021-12-27 00:00:00 Completed [facility] Influenza High Dose 2021-12-27 00:00:00 Completed [facility] Influenza High Dose 2021-12-27 00:00:00 Completed [facility] Influenza High Dose 2021-12-27 00:00:00 Completed [facility] Influenza High Dose 2021-12-27 00:00:00 Completed [facility] Influenza High Dose 2021-12-27 00:00:00 Completed [facility] Influenza High Dose 2021-12-27 00:00:00 Completed [facility] Influenza High Dose 2021-12-27 00:00:00 Completed [facility] Influenza High Dose 2021-12-27 00:00:00 Completed [facility] Influenza High Dose 2021-12-27 00:00:00 Completed [facility] Influenza High Dose 2021-12-27 00:00:00 Completed [facility] Influenza High Dose 2021-12-27 00:00:00 Completed [facility] Influenza High Dose 2021-12-27 00:00:00 Completed [facility] Influenza High Dose 2021-12-27 00:00:00 Completed [facility] Influenza High Dose 2021-12-27 00:00:00 Completed [facility] Influenza High Dose 2021-12-27 00:00:00 Completed [facility] Influenza High Dose 2021-12-27 00:00:00 Completed [facility] Influenza Virus Vaccine 2021-12-18 00:00:00 Completed [facility] Influenza Virus Vaccine 2021-12-18 00:00:00 Completed [facility] Influenza Virus Vaccine 2021-12-18 00:00:00 Completed [facility] Influenza Virus Vaccine 2021-12-18 00:00:00 Completed [facility] Influenza Virus Vaccine 2021-12-18 00:00:00 Completed [facility] Influenza Virus Vaccine 2021-12-18 00:00:00 Completed [facility] Influenza Virus Vaccine 2021-12-18 00:00:00 Completed [facility] Influenza Virus Vaccine 2021-12-18 00:00:00 Completed [facility] Influenza Virus Vaccine 2021-12-18 00:00:00 Completed [facility] SARS-COV-2 COVID-19 VACCINE - (MODERNA) 2021-09-20 00:00:00 Completed [facility] SARS-COV-2 COVID-19 VACCINE - (MODERNA) 2021-09-20 00:00:00 Completed [facility] SARS-COV-2 COVID-19 VACCINE - (MODERNA) 2021-09-20 00:00:00 Completed [facility] SARS-COV-2 COVID-19 VACCINE - (MODERNA) 2021-09-20 00:00:00 Completed [facility] SARS-COV-2 COVID-19 VACCINE - (MODERNA) 2021-09-20 00:00:00 Completed [facility] SARS-COV-2 COVID-19 VACCINE - (MODERNA) 2021-09-20 00:00:00 Completed [facility] SARS-COV-2 COVID-19 VACCINE - (MODERNA) 2021-09-20 00:00:00 Completed [facility] SARS-COV-2 COVID-19 VACCINE - (MODERNA) 2021-09-20 00:00:00 Completed [facility] SARS-COV-2 COVID-19 VACCINE - (MODERNA) 2021-09-20 00:00:00 Completed [facility] SARS-COV-2 COVID-19 VACCINE - (MODERNA) 2021-04-02 00:00:00 Completed [facility] SARS-COV-2 COVID-19 VACCINE - (MODERNA) 2021-04-02 00:00:00 Completed [facility] SARS-COV-2 COVID-19 VACCINE - (MODERNA) 2021-04-02 00:00:00 Completed [facility] SARS-COV-2 COVID-19 VACCINE - (MODERNA) 2021-04-02 00:00:00 Completed [facility] SARS-COV-2 COVID-19 VACCINE - (MODERNA) 2021-04-02 00:00:00 Completed [facility] SARS-COV-2 COVID-19 VACCINE - (MODERNA) 2021-04-02 00:00:00 Completed [facility] SARS-COV-2 COVID-19 VACCINE - (MODERNA) 2021-04-02 00:00:00 Completed [facility] SARS-COV-2 COVID-19 VACCINE - (MODERNA) 2021-04-02 00:00:00 Completed [facility] SARS-COV-2 COVID-19 VACCINE - (MODERNA) 2021-04-02 00:00:00 Completed [facility] Influenza High Dose Quad 2020-12-27 00:00:00 Completed [facility] Influenza High Dose Quad 2020-12-27 00:00:00 Completed [facility] Influenza High Dose Quad 2020-12-27 00:00:00 Completed [facility] Influenza High Dose Quad 2020-12-27 00:00:00 Completed [facility] Influenza High Dose Quad 2020-12-27 00:00:00 Completed [facility] Influenza High Dose Quad 2020-12-27 00:00:00 Completed [facility] Influenza High Dose Quad 2020-12-27 00:00:00 Completed [facility] Influenza High Dose Quad 2020-12-27 00:00:00 Completed [facility] [facility] Influenza High Dose Quad 2020-12-27 00:00:00 Completed [facility] SARS-COV-2 COVID-19 MODERNA 12+ YRS VACCINE 2020-06-07 00:00:00 Completed [facility] SARS-COV-2 COVID-19 MODERNA 12+ YRS VACCINE 2020-06-07 00:00:00 Completed [facility] SARS-COV-2 COVID-19 MODERNA 12+ YRS VACCINE 2020-06-07 00:00:00 Completed [facility] SARS-COV-2 COVID-19 MODERNA 12+ YRS VACCINE 2020-06-07 00:00:00 Completed [facility] SARS-COV-2 COVID-19 MODERNA 12+ YRS VACCINE 2020-06-07 00:00:00 Completed [facility] SARS-COV-2 COVID-19 MODERNA 12+ YRS VACCINE 2020-06-07 00:00:00 Completed [facility] SARS-COV-2 COVID-19 MODERNA 12+ YRS VACCINE 2020-06-07 00:00:00 Completed [facility] SARS-COV-2 COVID-19 MODERNA 12+ YRS VACCINE 2020-06-07 00:00:00 Completed [facility] SARS-COV-2 COVID-19 MODERNA 12+ YRS VACCINE 2020-06-07 00:00:00 Completed [facility] SARS-COV-2 COVID-19 MODERNA 12+ YRS VACCINE 2020-06-07 00:00:00 Completed [facility] SARS-COV-2 COVID-19 MODERNA 12+ YRS VACCINE 2020-06-07 00:00:00 Completed [facility] SARS-COV-2 COVID-19 MODERNA 12+ YRS VACCINE 2020-06-07 00:00:00 Completed [facility] SARS-COV-2 COVID-19 MODERNA 12+ YRS VACCINE 2020-06-07 00:00:00 Completed [facility] SARS-COV-2 COVID-19 MODERNA 12+ YRS VACCINE 2020-06-07 00:00:00 Completed [facility] SARS-COV-2 COVID-19 MODERNA 12+ YRS VACCINE 2020-06-07 00:00:00 Completed [facility] SARS-COV-2 COVID-19 MODERNA 12+ YRS VACCINE 2020-06-07 00:00:00 Completed [facility] SARS-COV-2 COVID-19 MODERNA 12+ YRS VACCINE 2020-06-07 00:00:00 Completed [facility] SARS-COV-2 COVID-19 MODERNA 12+ YRS VACCINE 2020-06-07 00:00:00 Completed [facility] SARS-COV-2 COVID-19 MODERNA 12+ YRS VACCINE 2020-06-07 00:00:00 Completed [facility] SARS-COV-2 COVID-19 MODERNA 12+ YRS VACCINE 2020-06-07 00:00:00 Completed [facility] SARS-COV-2 COVID-19 MODERNA 12+ YRS VACCINE 2020-06-07 00:00:00 Completed [facility] SARS-COV-2 COVID-19 MODERNA 12+ YRS VACCINE 2020-06-07 00:00:00 Completed [facility] SARS-COV-2 COVID-19 MODERNA 12+ YRS VACCINE 2020-06-07 00:00:00 Completed [facility] SARS-COV-2 COVID-19 MODERNA 12+ YRS VACCINE 2020-06-07 00:00:00 Completed [facility] SARS-COV-2 COVID-19 MODERNA 12+ YRS VACCINE 2020-05-10 00:00:00 Completed [facility] SARS-COV-2 COVID-19 MODERNA 12+ YRS VACCINE 2020-05-10 00:00:00 Completed [facility] SARS-COV-2 COVID-19 MODERNA 12+ YRS VACCINE 2020-05-10 00:00:00 Completed [facility] SARS-COV-2 COVID-19 MODERNA 12+ YRS VACCINE 2020-05-10 00:00:00 Completed [facility] SARS-COV-2 COVID-19 MODERNA 12+ YRS VACCINE 2020-05-10 00:00:00 Completed [facility] SARS-COV-2 COVID-19 MODERNA 12+ YRS VACCINE 2020-05-10 00:00:00 Completed [facility] SARS-COV-2 COVID-19 MODERNA 12+ YRS VACCINE 2020-05-10 00:00:00 Completed [facility] SARS-COV-2 COVID-19 MODERNA 12+ YRS VACCINE 2020-05-10 00:00:00 Completed [facility] SARS-COV-2 COVID-19 MODERNA 12+ YRS VACCINE 2020-05-10 00:00:00 Completed [facility] SARS-COV-2 COVID-19 MODERNA 12+ YRS VACCINE 2020-05-10 00:00:00 Completed [facility] SARS-COV-2 COVID-19 MODERNA 12+ YRS VACCINE 2020-05-10 00:00:00 Completed [facility] SARS-COV-2 COVID-19 MODERNA 12+ YRS VACCINE 2020-05-10 00:00:00 Completed [facility] SARS-COV-2 COVID-19 MODERNA 12+ YRS VACCINE 2020-05-10 00:00:00 Completed [facility] SARS-COV-2 COVID-19 MODERNA 12+ YRS VACCINE 2020-05-10 00:00:00 Completed [facility] SARS-COV-2 COVID-19 MODERNA 12+ YRS VACCINE 2020-05-10 00:00:00 Completed [facility] SARS-COV-2 COVID-19 MODERNA 12+ YRS VACCINE 2020-05-10 00:00:00 Completed [facility] SARS-COV-2 COVID-19 MODERNA 12+ YRS VACCINE 2020-05-10 00:00:00 Completed [facility] SARS-COV-2 COVID-19 MODERNA 12+ YRS VACCINE 2020-05-10 00:00:00 Completed [facility] SARS-COV-2 COVID-19 MODERNA 12+ YRS VACCINE 2020-05-10 00:00:00 Completed [facility] SARS-COV-2 COVID-19 MODERNA 12+ YRS VACCINE 2020-05-10 00:00:00 Completed [facility] SARS-COV-2 COVID-19 MODERNA 12+ YRS VACCINE 2020-05-10 00:00:00 Completed [facility] SARS-COV-2 COVID-19 MODERNA 12+ YRS VACCINE 2020-05-10 00:00:00 Completed [facility] SARS-COV-2 COVID-19 MODERNA 12+ YRS VACCINE 2020-05-10 00:00:00 Completed [facility] SARS-COV-2 COVID-19 MODERNA 12+ YRS VACCINE 2020-05-10 00:00:00 Completed [facility] Influenza High Dose Quad 2019-12-09 00:00:00 Completed [facility] Influenza High Dose Quad 2019-12-09 00:00:00 Completed [facility] Influenza High Dose Quad 2019-12-09 00:00:00 Completed [facility] Influenza High Dose Quad 2019-12-09 00:00:00 Completed [facility] Influenza High Dose Quad 2019-12-09 00:00:00 Completed [facility] Influenza High Dose Quad 2019-12-09 00:00:00 Completed [facility] Influenza High Dose Quad 2019-12-09 00:00:00 Completed [facility] Influenza High Dose Quad 2019-12-09 00:00:00 Completed [facility] Influenza High Dose Quad 2019-12-09 00:00:00 Completed [facility] Influenza High Dose Quad 2019-12-09 00:00:00 Completed [facility] Influenza High Dose Quad 2019-12-09 00:00:00 Completed [facility] Influenza High Dose Quad 2019-12-09 00:00:00 Completed [facility] Influenza High Dose Quad 2019-12-09 00:00:00 Completed [facility] Influenza High Dose Quad 2019-12-09 00:00:00 Completed [facility] Influenza High Dose Quad 2019-12-09 00:00:00 Completed [facility] Influenza High Dose Quad 2019-12-09 00:00:00 Completed [facility] Influenza High Dose Quad 2019-12-09 00:00:00 Completed [facility] Influenza High Dose Quad 2019-12-09 00:00:00 Completed [facility] Influenza High Dose Quad 2019-12-09 00:00:00 Completed [facility] Influenza High Dose Quad 2019-12-09 00:00:00 Completed [facility] Influenza High Dose Quad 2019-12-09 00:00:00 Completed [facility] Influenza High Dose Quad 2019-12-09 00:00:00 Completed [facility] Influenza High Dose Quad 2019-12-09 00:00:00 Completed [facility] Influenza High Dose Quad 2019-12-09 00:00:00 Completed [facility] Influenza High Dose 2018-12-24 00:00:00 Completed [facility] Influenza High Dose 2018-12-24 00:00:00 Completed [facility] Influenza High Dose 2018-12-24 00:00:00 Completed [facility] Influenza High Dose 2018-12-24 00:00:00 Completed [facility] Influenza High Dose 2018-12-24 00:00:00 Completed [facility] Influenza High Dose 2018-12-24 00:00:00 Completed [facility] Influenza High Dose 2018-12-24 00:00:00 Completed [facility] Influenza High Dose 2018-12-24 00:00:00 Completed [facility] Influenza High Dose 2018-12-24 00:00:00 Completed [facility] Influenza High Dose 2018-12-24 00:00:00 Completed [facility] Influenza High Dose 2018-12-24 00:00:00 Completed [facility] Influenza High Dose 2018-12-24 00:00:00 Completed [facility] Influenza High Dose 2018-12-24 00:00:00 Completed [facility] Influenza High Dose 2018-12-24 00:00:00 Completed [facility] Influenza High Dose 2018-12-24 00:00:00 Completed [facility] Influenza High Dose 2018-12-24 00:00:00 Completed [facility] Influenza High Dose 2018-12-24 00:00:00 Completed [facility] Influenza High Dose 2018-12-24 00:00:00 Completed [facility] Influenza High Dose 2018-12-24 00:00:00 Completed [facility] Influenza High Dose 2018-12-24 00:00:00 Completed [facility] Influenza High Dose 2018-12-24 00:00:00 Completed [facility] Influenza High Dose 2018-12-24 00:00:00 Completed [facility] Influenza High Dose 2018-12-24 00:00:00 Completed [facility] Influenza High Dose 2018-12-24 00:00:00 Completed [facility] Influenza High Dose 2017-12-24 00:00:00 Completed [facility] Influenza High Dose 2017-12-24 00:00:00 Completed [facility] Influenza High Dose 2017-12-24 00:00:00 Completed [facility] Influenza High Dose 2017-12-24 00:00:00 Completed [facility] Influenza High Dose 2017-12-24 00:00:00 Completed [facility] Influenza High Dose 2017-12-24 00:00:00 Completed [facility] Influenza High Dose 2017-12-24 00:00:00 Completed [facility] Influenza High Dose 2017-12-24 00:00:00 Completed [facility] Influenza High Dose 2017-12-24 00:00:00 Completed [facility] Influenza High Dose 2017-12-24 00:00:00 Completed [facility] Influenza High Dose 2017-12-24 00:00:00 Completed [facility] Influenza High Dose 2017-12-24 00:00:00 Completed [facility] Influenza High Dose 2017-12-24 00:00:00 Completed [facility] Influenza High Dose 2017-12-24 00:00:00 Completed [facility] Influenza High Dose 2017-12-24 00:00:00 Completed [facility] Influenza High Dose 2017-12-24 00:00:00 Completed [facility] Influenza High Dose 2017-12-24 00:00:00 Completed [facility] Influenza High Dose 2017-12-24 00:00:00 Completed [facility] Influenza High Dose 2017-12-24 00:00:00 Completed [facility] Influenza High Dose 2017-12-24 00:00:00 Completed [facility] Influenza High Dose 2017-12-24 00:00:00 Completed [facility] Influenza High Dose 2017-12-24 00:00:00 Completed [facility] Influenza High Dose 2017-12-24 00:00:00 Completed [facility] Influenza High Dose 2017-12-24 00:00:00 Completed [facility] TDAP 2017-04-05 00:00:00 Completed [facility] TDAP 2017-04-05 00:00:00 Completed [facility] TDAP 2017-04-05 00:00:00 Completed [facility] TDAP 2017-04-05 00:00:00 Completed [facility] TDAP 2017-04-05 00:00:00 Completed [facility] TDAP 2017-04-05 00:00:00 Completed [facility] TDAP 2017-04-05 00:00:00 Completed [facility] TDAP 2017-04-05 00:00:00 Completed [facility] TDAP 2017-04-05 00:00:00 Completed [facility] TDAP 2017-04-05 00:00:00 Completed [facility] TDAP 2017-04-05 00:00:00 Completed [facility] TDAP 2017-04-05 00:00:00 Completed [facility] TDAP 2017-04-05 00:00:00 Completed [facility] TDAP 2017-04-05 00:00:00 Completed [facility] TDAP 2017-04-05 00:00:00 Completed [facility] TDAP 2017-04-05 00:00:00 Completed [facility] TDAP 2017-04-05 00:00:00 Completed [facility] TDAP 2017-04-05 00:00:00 Completed [facility] TDAP 2017-04-05 00:00:00 Completed [facility] TDAP 2017-04-05 00:00:00 Completed [facility] TDAP 2017-04-05 00:00:00 Completed [facility] TDAP 2017-04-05 00:00:00 Completed [facility] TDAP 2017-04-05 00:00:00 Completed [facility] TDAP 2017-04-05 00:00:00 Completed [facility] TDAP Unknown Completed [facility] Influenza High Dose Unknown Completed [facility] SARS-COV-2 COVID-19 MODERNA 12+ YRS VACCINE Unknown Completed [facility] Influenza High Dose Quad Unknown Completed [facility] Influenza Virus Vaccine Unknown Completed [facility] TDAP Unknown Completed [facility] Influenza High Dose Unknown Completed [facility] SARS-COV-2 COVID-19 MODERNA 12+ YRS VACCINE Unknown Completed [facility] Influenza High Dose Quad Unknown Completed [facility] Influenza Virus Vaccine Unknown Completed [facility] TDAP Unknown Completed [facility] Influenza High Dose Unknown Completed [facility] SARS-COV-2 COVID-19 MODERNA 12+ YRS VACCINE Unknown Completed [facility] Influenza High Dose Quad Unknown Completed [facility] Influenza Virus Vaccine Unknown Completed [facility] TDAP Unknown Completed [facility] Influenza High Dose Unknown Completed [facility] SARS-COV-2 COVID-19 MODERNA 12+ YRS VACCINE Unknown Completed [facility] Influenza High Dose Quad Unknown Completed [facility] Influenza Virus Vaccine Unknown Completed [facility] Remdesivir Unknown Completed [facility] TDAP Unknown Completed [facility] Influenza High Dose Unknown Completed [facility] SARS-COV-2 COVID-19 MODERNA 12+ YRS VACCINE Unknown Completed [facility] Influenza High Dose Quad Unknown Completed [facility] Influenza Virus Vaccine Unknown Completed [facility] Remdesivir Unknown [facility] Remdesivir Unknown [facility] TDAP Unknown Completed [facility] Influenza High Dose Unknown Completed [facility] SARS-COV-2 COVID-19 MODERNA 12+ YRS VACCINE Unknown Completed [facility] Influenza High Dose Quad Unknown Completed [facility] Influenza Virus Vaccine Unknown Completed [facility] Remdesivir Unknown Com[facility] Remdesivir Unknown Completed [facility] TDAP Unknown Completed [facility] Influenza High Dose Unknown Completed [facility] SARS-COV-2 COVID-19 MODERNA 12+ YRS VACCINE Unknown Completed [facility] Influenza High Dose Quad Unknown Completed [facility] Influenza Virus Vaccine Unknown Completed [facility] Remdesivir Unknown Completed [facility] Remdesivir Unknown Completed [facility] TDAP Unknown Completed [facility] Influenza, High-Dose, Trivalent, PF (FLUZONE) Unknown Completed [facility] SARS-COV-2 COVID-19 VACCINE - (MODERNA) Unknown Completed [facility] Influenza High Dose Quad Unknown Completed [facility] Influenza Virus Vaccine Unknown Completed [facility] Remdesivir Unknown Completed [facility] Remdesivir Unknown Completed [facility] Vital Signs Vital Name Observation Time Observation Value Comments S ource Systolic blood pressure 2023-12-31 06:44:00 128 mm[Hg] [facility] Diastolic blood pressure 2023-12-31 06:44:00 72 mm[Hg] [facility] Heart rate 2023-12-31 06:44:00 82 /min [facility] Body temperature 2023-12-31 06:44:00 36.67 [facility] Respiratory rate 2023-12-31 06:44:00 16 /min [facility] Oxygen saturation in Arterial blood by Pulse oximetry 2023-12-31 06:44:00 100 /min [facility] Body height 2023-12-31 02:28:00 177.8 cm [facility] Body weight 2023-12-31 02:28:00 82.101 kg [facility] BMI 2023-12-31 02:28:00 25.97 kg/m2 [facility] Systolic blood pressure 2023-03-02 01:30:00 96 mm[Hg] [facility] Diastolic blood pressure 2023-03-02 01:30:00 52 mm[Hg] [facility] Heart rate 2023-03-02 01:30:00 68 /min [facility] Body temperature 2023-03-02 01:30:00 36.11 [facility] Respiratory rate 2023-03-02 01:30:00 8 /min [facility] Oxygen saturation in Arterial blood by Pulse oximetry 2023-03-02 01:30:00 98 /min [facility] Body height 2023 21:02:00 182.9 cm [facility] Body weight 2023 21:02:00 74.39 kg [facility] BMI 2023 21:02:00 22.24 kg/m2 [facility] Systolic blood pressure 2023-02-24 21:44:00 99 mm[Hg] [facility] Diastolic blood pressure 2023-02-24 21:44:00 55 mm[Hg] [facility] Heart rate 2023-02-24 21:44:00 75 /min [facility] Body temperature 2023-02-24 21:44:00 36.78 [facility] Respiratory rate 2023-02-24 21:44:00 16 /min [facility] Body height 2023-02-24 21:44:00 182.9 cm [facility] Body weight 2023-02-24 21:44:00 74.39 kg [facility] BMI 2023-02-24 21:44:00 22.24 kg/m2 [facility] Oxygen saturation in Arterial blood by Pulse oximetry 2023-02-24 21:44:00 98 /min [facility] Systolic blood pressure 2023-02-06 16:00:00 109 mm[Hg] [facility] Diastolic blood pressure 2023-02-06 16:00:00 75 mm[Hg] [facility] Heart rate 2023-02-06 16:00:00 80 /[facility] Body temperature 2023-02-06 16:00:00 36.28 [facility] Respiratory rate 2023-02-06 16:00:00 17 /min [facility] Oxygen saturation in Arterial blood by Pulse oximetry 2023-02-06 16:00:00 96 /min [facility] Body weight 2023-02-06 08:22:00 74.481 kg [facility] BMI 2023-02-06 08:22:00 22.27 kg/m2 [facility] Body height 2023-02-02 21:14:00 182.9 cm [facility] Systolic blood pressure 2023-01-29 16:38:00 108 mm[Hg] [facility] Diastolic blood pressure 2023-01-29 16:38:00 48 mm[Hg] [facility] Heart rate 2023-01-29 16:38:00 66 /min [facility] Body temperature 2023-01-29 16:38:00 37.06 [facility] Oxygen saturation in Arterial blood by Pulse oximetry 2023-01-29 16:38:00 95 /min [facility] Respiratory rate 2023-01-29 09:17:00 16 /min [facility] Body weight 2023-01-29 09:17:00 73.982 kg [facility] BMI 2023-01-29 09:17:00 22.12 kg/m2 [facility] Body height 2023-01-25 23:25:00 182.9 cm [facility] Systolic blood pressure 2023-01-20 22:00:00 123 mm[Hg] [facility] Diastolic blood pressure 2023-01-20 22:00:00 80 mm[Hg] [facility] Heart rate 2023-01-20 22:00:00 82 /min [facility] Body temperature 2023-01-20 22:00:00 36.89 [facility] Respiratory rate 2023-01-20 22:00:00 16 /min [facility] Oxygen saturation in Arterial blood by Pulse oximetry 2023-01-20 22:00:00 97 /min [facility] Body height 2023-01-20 19:16:00 167.6 cm [facility] Body weight 2023-01-20 19:16:00 80 kg [facility] BMI 2023-01-20 19:16:00 28.47 kg/m2 [facility] Systolic blood pressure 2022-12-01 16:54:00 125 mm[Hg] [facility] Diastolic blood pressure 2022-12-01 16:54:00 79 mm[Hg] [facility] Heart rate 2022-12-01 16:54:00 94 /min [facility] [facility] Body temperature 2022-12-01 16:54:00 36.56 Nita [facility] Respiratory rate 2022-12-01 16:54:00 18 /min [facility] Oxygen saturation in Arterial blood by Pulse oximetry 2022-12-01 16:54:00 94 /min [facility] Body weight 2022-12-01 09:25:00 70.988 kg [facility] BMI 2022-12-01 09:25:00 21.23 kg/m2 [facility] Body height 2022-11-30 01:41:00 182.9 cm [facility] Systolic blood pressure 2022-11-26 22:00:00 126 mm[Hg] [facility] Diastolic blood pressure 2022-11-26 22:00:00 64 mm[Hg] [facility] Heart rate 2022-11-26 22:00:00 80 /min [facility] Oxygen saturation in Arterial blood by Pulse oximetry 2022-11-26 22:00:00 97 /min [facility] Respiratory rate 2022-11-26 21:00:00 18 /min [facility] Body temperature 2022-11-26 19:03:00 36.5 Nita [facility] Body height 2022-11-26 19:03:00 188 cm [facility] Body weight 2022-11-26 19:03:00 95.255 kg [facility] BMI 2022-11-26 19:03:00 26.96 kg/m2 [facility] Body temperature 2022-10-30 17:00:00 36.94 Nita [facility] Heart rate 2022-10-30 16:32:00 93 /min [facility] Respiratory rate 2022-10-30 16:32:00 18 /min [facility] Oxygen saturation in Arterial blood by Pulse oximetry 2022-10-30 16:32:00 97 /min [facility] Systolic blood pressure 2022-10-30 16:00:00 114 mm[Hg] [facility] Diastolic blood pressure 2022-10-30 16:00:00 87 mm[Hg] [facility] Body weight 2022-10-29 21:00:00 70.988 kg [facility] BMI 2022-10-29 21:00:00 22.46 kg/m2 [facility] Body height 2022-10-28 03:11:00 177.8 cm [facility] Systolic blood pressure 2022-08-27 19:48:00 97 mm[Hg] [facility] Diastolic blood pressure 2022-08-27 19:48:00 66 mm[Hg] [facility] Heart rate 2022-08-27 19:48:00 78 /min [facility] 2022-08-27 19:48:00 18 /min [facility] Body height 2022-08-27 19:48:00 182.9 cm [facility] Body weight 2022-08-27 19:48:00 70.761 kg [facility] BMI 2022-08-27 19:48:00 21.16 kg/m2 [facility] Systolic blood pressure 2022-07-26 16:20:00 103 mm[Hg] [facility] Diastolic blood pressure 2022-07-26 16:20:00 67 mm[Hg] [facility] Heart rate 2022-07-26 16:20:00 94 /min [facility] Body temperature 2022-07-26 16:20:00 36.94 Nita [facility] Respiratory rate 2022-07-26 16:20:00 20 /min [facility] Oxygen saturation in Arterial blood by Pulse oximetry 2022-07-26 16:20:00 94 /min [facility] Body weight 2022-07-26 09:30:00 70.988 kg [facility] BMI 2022-07-26 09:30:00 21.23 kg/m2 [facility] Body height 2022-07-21 02:02:00 182.9 cm [facility] Systolic blood pressure 2022-07-18 19:48:00 111 mm[Hg] [facility] Diastolic blood pressure 2022-07-18 19:48:00 61 mm[Hg] [facility] Heart rate 2022-07-18 19:48:00 69 /min [facility] Body temperature 2022-07-18 19:48:00 36.44 Nita [facility] Respiratory rate 2022-07-18 19:48:00 18 /min [facility] Body height 2022-07-18 19:48:00 185.4 cm [facility] Body weight 2022-07-18 19:48:00 74.39 kg [facility] BMI 2022-07-18 19:48:00 21.64 kg/m2 [facility] Oxygen saturation in Arterial blood by Pulse oximetry 2022-07-18 19:48:00 100 /min [facility] Systolic blood pressure 2022-06-10 20:00:00 140 mm[Hg] [facility] Diastolic blood pressure 2022-06-10 20:00:00 56 mm[Hg] [facility] Heart rate 2022-06-10 20:00:00 81 /min [facility] Body temperature 2022-06-10 20:00:00 36.89 Nita [facility] Respiratory rate 2022-06-10 20:00:00 14 /min [facility] Oxygen saturation in Arterial blood by Pulse oximetry 2022-06-10 20:00:00 100 /min [facility] Body height 2022-06-10 16:20:00 182.9 cm [facility] Body weight 2022-06-10 16:20:00 74.39 kg [facility] BMI 2022-06-10 16:20:00 22.24 kg/m2 [facility] Systolic blood pressure 2022-05-28 17:22:00 112 mm[Hg] [facility] Diastolic blood pressure 2022-05-28 17:22:00 66 mm[Hg] [facility] Heart rate 2022-05-28 17:22:00 83 /min [facility] Body temperature 2022-05-28 17:22:00 36.28 Nita [facility] Respiratory rate 2022-05-28 17:22:00 18 /min [facility] Oxygen saturation in Arterial blood by Pulse oximetry 2022-05-28 17:22:00 98 /min [facility] Body weight 2022-05-28 10:02:00 74.481 kg [facility] BMI 2022-05-28 10:02:00 22.27 kg/m2 [facility] Body height 2022-05-27 04:42:00 182.9 cm [facility] Systolic blood pressure 2022-05-05 22:34:00 102 mm[Hg] [facility] Diastolic blood pressure 2022-05-05 22:34:00 58 mm[Hg] [facility] Heart rate 2022-05-05 22:34:00 79 /min [facility] Body temperature 2022-05-05 22:34:00 36.22 Nita [facility] Respiratory rate 2022-05-05 22:34:00 18 /min [facility] Oxygen saturation in Arterial blood by Pulse oximetry 2022-05-05 22:34:00 94 /min [facility] Body weight 2022-05-05 10:07:00 73.982 kg [facility] BMI 2022-05-05 10:07:00 20.94 kg/m2 [facility] Body height 2022-05-03 04:50:00 188 cm [facility] Systolic blood pressure 2021-12-05 19:40:00 115 mm[Hg] [facility] Diastolic blood pressure 2021-12-05 19:40:00 73 mm[Hg] [facility] Heart rate 2021-12-05 19:40:00 59 /min [facility] Body weight 2021-12-05 19:40:00 77.701 kg [facility] BMI 2021-12-05 19:40:00 23.89 kg/m2 [facility] Oxygen saturation in Arterial blood by Pulse oximetry 2021-12-05 19:40:00 97 /min [facility] Procedures Procedure Date / Time Performed Performing Clinician Source CT ABDOMEN PELVIS W CONTRAST 2023-12-31 04:45:00 Isaura Beck [facility] CT CHEST PULMONARY ANGIOGRAM 2023-12-31 04:45:00 Isaura Beck [facility] MAGNESIUM 2023-12-31 03:14:00 Isaura Beck [facility] COMP. METABOLIC PANEL ([id number]) 2023-12-31 03:14:00 Yar[place], [place] [facility] CBC WITH DIFF 2023-12-31 03:14:00 Isaura Beck [facility] URINALYSIS 2023-12-31 03:14:00 Isaura Beck [facility] XR ANKLE 3+ VW RIGHT 2023 23:02:00 Joseph Melendez [facility] COMP. METABOLIC PANEL ([id number]) 2023 21:37:00 Joseph Melendez [facility] CBC WITH DIFF 2023 21:37:00 Joseph Melendez [facility] BASIC METABOLIC PANEL (NA, K, CL, CO2, GLUCOSE, BUN, CREATININE, CA) 2023-02-24 21:45:00 Nicanor Lentz [facility] AUTHORIZATION FOR RELEASE OF PHI 2023-02-20 06:01:00 Doctor Unassigned, [place] [facility] BASIC METABOLIC PANEL (NA, K, CL, CO2, GLUCOSE, BUN, CREATININE, CA) 2023-02-05 08:20:00 Andreina Childs [facility] CBC WITH DIFF 2023-02-05 08:20:00 Andreina Childs [facility] BASIC METABOLIC PANEL (NA, K, CL, CO2, GLUCOSE, BUN, CREATININE, CA) 2023-02-04 09:27:00 Andreina Childs [facility] CBC WITH DIFF 2023-02-04 09:27:00 Amadeo [facility] JESSE AURIS SURVEILLANCE BY PCR (INFECTION CONTROL PURPOSES) 2023-02-03 21:48:00 Andreina Childs [facility] URINALYSIS 2023-02-03 14:42:00 [facility] CBC WITH DIFF 2023-02-03 11:25:00 Marlena Rios [facility] BASIC METABOLIC PANEL (NA, K, CL, CO2, GLUCOSE, BUN, CREATININE, CA) 2023-02-03 10:19:00 Marlena Rios [facility] PROCALCITONIN 2023-02-03 10:19:00 Josefina Dasilva [facility] XR CHEST 1 VW 2023-02-02 19:00:15 Andreina Uriarte [facility] COMP. METABOLIC PANEL ([id number]) 2023-02-02 16:53:00 Andreina Uriarte [facility] CBC WITH DIFF 2023-02-02 16:53:00 Andreina Uriarte [facility] RAPID INFLUENZA A/B 2023-02-02 16:53:00 Andreina Uriarte [facility] COVID-19 (ID NOW RAPID TESTING) 2023-02-02 16:53:00 Andreina Uriarte [facility] LAB ONLY COVID INTERPRETATION 2023-02-02 16:53:00 Andreina Uriarte [facility] XR CHEST 1 2023-01-28 18:01:19 Marlena Rios [facility] BASIC METABOLIC PANEL (NA, K, CL, CO2, GLUCOSE, BUN, CREATININE, CA) 2023-01-27 10:13:00 Andreina Childs [facility] VANCOMYCIN TROUGH 2023-01-27 10:13:00 Angelica Braga [facility] CBC WITH DIFF 2023-01-27 10:13:00 Andreina Childs Alysa [facility] WOUND/ASPIRATE OR ABSCESS CULTURE 2023-01-26 18:02:[address] [facility] WOUND CULTURE 2023-01-26 18:02:00 [facility]erthi [facility] MRSA / MSSA SCREEN BY ARNOLD SALDANA 2023-01-25 23:19:00 Marques Hines [facility] BLOOD CULTURE SCREEN 2023-01-25 20:41:00 Lavon Soni [facility] COMP. METABOLIC PANEL ([id number]) 2023-01-25 20:41:00 Virginia Soni [facility] SEDIMENTATION RATE 2023-01-25 20:41:00 Marco A Soni [facility] CBC WITH DIFF 2023-01-25 20:41:00 Virginia Soni [facility] LACTIC ACID WHOLE BLOOD 2023-01-25 20:41:00 Virginia Soni [facility] XR ANKLE 3+ VW RIGHT 2023-01-25 20:38:12 Lavon Soni [facility] CONSENT/REFUSAL FOR DIAGNOSIS AND TREATMENT 2023-01-25 20:04:39 Doctor Unassigned, [place] [facility] EMERGENCY DEPARTMENT DOCUMENTS 2023-01-25 05:01:00 Doctor Unassigned, [place] [facility] RAPID STREP SCREEN FOR GROUP A 2023-01-20 21:38:00 Virginia Soni [facility] CT HEAD WO CONTRAST 2023-01-20 19:55:01 Hali Soni ra [facility] XR CHEST 1 VW 2023-01-20 19:54:03 Virginia Soni [facility] TROPONIN I 2023-01-20 19:24:00 Virginia Soni [facility] COMP. METABOLIC PANEL ([id number]) 2023-01-20 19:24:00 Virginia Soni [facility] CBC WITH DIFF 2023-01-20 19:24:00 Virginia Soni [facility] RAPID INFLUENZA A/B 2023-01-20 19:24:00 Hali Soni ra [facility] N-TERMINAL PRO-BNP 2023-01-20 19:24:00 Marco A Soni [facility] COVID-19 (ID NOW RAPID TESTING) 2023-01-20 19:24:00 Virginia Soni [facility] MAGNESIUM 2023-01-20 19:24:00 Virginia Soni [facility] BASIC METABOLIC PANEL (NA, K, CL, CO2, GLUCOSE, BUN, CREATININE, CA) 2022-12-01 11:21:00 Andreina Childs [facility] XR ANKLE 3+ VW RIGHT 2022-11-30 01:09:00 Juno Verdin [facility] XR KUB 2022-11-29 23:28:59 Juno [facility] COMP. METABOLIC PANEL ([id number]) 2022-11-29 23:10:00 Juno Verdin [facility] CBC WITH DIFF 2022-11-29 23:10:00 Juno Verdin [facility] CT ABDOMEN PELVIS W CONTRAST 2022-11-26 21:46:20 Frankie [facility] COMP. METABOLIC PANEL ([id number]) 2022-11-26 19:54:00 Frankie Olman [facility] CBC WITH DIFF 2022-11-26 19:54:00 Frankie Olman [facility] ASSIGNMENT OF BENEFITS 2022-11-26 19:35:58 Docto r Unassigned, [place] [facility] CONSENT/REFUSAL FOR DIAGNOSIS AND TREATMENT 2022-11-26 19:35:18 Doctor Unassigned, [place] [facility] XR CHEST 1 2022-11-26 19:29:39 Frankie [facility] CONSENT/REFUSAL FOR DIAGNOSIS AND TREATMENT 2022-11-26 19:13:37 Doctor Unassigned, [place] [facility] CONSENT/REFUSAL FOR DIAGNOSIS AND TREATMENT 2022-11-26 19:09:05 Doctor Unassigned, [place] [facility] EXTERNAL PROVIDER - ADC CARDIOLOGY 2022-11-21 05:01:00 Doctor Unassigned, [place] [facility] XR CHEST 1 2022-10-30 11:30:00 Aziza Echevarria [facility] MAGNESIUM 2022-10-30 09:09:00 Wale [facility] BASIC METABOLIC PANEL (NA, K, CL, CO2, GLUCOSE, BUN, CREATININE, CA) 2022-10-30 09:09:00 Wale [facility] CBC WITH DIFF 2022-10-30 09:09:00 Aziza Echevarria [facility] POCT GLUCOSE (AUTOMATED) 2022-10-29 13:16:00 Chaz Roberts [facility] MAGNESIUM 2022-10-29 07:50:00 Wale [facility] BASIC METABOLIC PANEL (NA, K, CL, CO2, GLUCOSE, BUN, CREATININE, CA) 2022-10-29 07:50:00 Wale [facility] CBC WITH DIFF 2022-10-29 07:50:00 Aziza Echevarria [facility] POCT GLUCOSE (AUTOMATED) 2022-10-29 01:59:00 Harvinder [facility] POCT GLUCOSE (AUTOMATED) 2022-10-28 21:26:00 Harvinder [facility] POCT GLUCOSE (AUTOMATED) 2022-10-28 16:56:00 Harvinder [facility] LEGIONELLA AND STREPTOCOCCUS PNEUMONIAE URINARY ANTIGENS 2022-10-28 16:05:00 Harvinder [facility] JESSE AURIS SURVEILLANCE BY PCR (INFECTION CONTROL PURPOSES) 2022-10-28 15:51:00 Lydia Tristan [facility] BASIC METABOLIC PANEL (NA, K, CL, CO2, GLUCOSE, BUN, CREATININE, CA) 2022-10-28 15:45:00 Wale [facility] CBC WITH DIFF 2022-10-28 15:45:00 Aziza Echevarria [facility] LACTIC ACID WHOLE BLOOD 2022-10-28 15:32:00 Abu Lydia Sherman [facility] PROCALCITONIN 2022-10-28 15:32:00 Lydia Tristan [facility] POCT GLUCOSE (AUTOMATED) 2022-10-28 13:54:00 Chaz Roberts [facility] BLOOD CULTURE SCREEN 2022-10-28 06:55:00 Lashon Beck i [facility] XR CHEST 1 VW 2022-10-28 04:21:00 Marcie Nickerson [facility] THROAT CULTURE 2022-10-28 03:42:00 Krishan [facility] RAPID STREP SCREEN FOR GROUP A 2022-10-28 03:42:00 Marcie Nickerson [facility] COVID-19 (ID NOW RAPID TESTING) 2022-10-28 03:42:00 Marcie Nickerson [facility] LAB ONLY COVID INTERPRETATION 2022-10-28 03:42:00 Marcie Nickerson [facility] MAGNESIUM 2022-10-28 03:26:00 Chaz Roberts [facility] TROPONIN I 2022-10-28 03:26:[address] [facility] COMP. METABOLIC PANEL ([id number]) 2022-10-28 03:26:00 Marcie Nickerson [facility] CBC WITH DIFF 2022-10-28 03:26:00 [facility] GLYCOSYLATED HEMOGLOBIN (A1C) 2022-10-28 03:26:00 Lydia Tristan [facility] URINALYSIS 2022-10-28 03:26:[address] [facility] LACTIC ACID WHOLE BLOOD 2022-10-28 03:26:00 Marcie Nickerson [facility] ASSIGNMENT OF BENEFITS 2022-10-28 03:23:04 Docto r Unassigned, [place] [facility] NOTICE OF PRIVACY PRACTICES 2022-10-28 03:22:29 Doctor Unassigned, [place] [facility] CONSENT/REFUSAL FOR DIAGNOSIS AND TREATMENT 2022-10-28 03:22:10 Doctor Unassigned, [place] [facility] HB ECG ROUTINE & RHYTHM STRIP 2022-10-28 03:09:11 Marcie Nickerson [facility] CT THORAX W CONTRAST 2022-07-25 18:16:16 Juancarlos Rios i [facility] RAPID INFLUENZA A/B 2022-07-25 17:15:00 Marlena Rios [facility] COVID-19 (ID NOW RAPID TESTING) 2022-07-25 17:15:00 Marlena Rios [facility] BASIC METABOLIC PANEL (NA, K, CL, CO2, GLUCOSE, BUN, CREATININE, CA) 2022-07-25 09:46:00 Andreina Childs [facility] CBC WITH DIFF 2022-07-25 09:46:00 Andreina Childs [facility] XR CHEST 1 VW 2022-07-25 00:09:00 Andreina Childs [facility] BASIC METABOLIC PANEL (NA, K, CL, CO2, GLUCOSE, BUN, CREATININE, CA) 2022-07-24 09:31:00 [facility] 2022-07-24 09:31:00 Andreina Childs [facility] MRSA / MSSA SCREEN BY PCRARNOLD 2022-07-23 21:06:00 Andreina Childs [facility] CBC WITH DIFF 2022-07-22 10:41:00 Leroy Soni [facility] BASIC METABOLIC PANEL (NA, K, CL, CO2, GLUCOSE, BUN, CREATININE, CA) 2022-07-22 09:09:00 Leroy Soni [facility] WOUND/ASPIRATE OR ABSCESS CULTURE 2022-07-21 16:22:00 Alirio Locke [facility] WOUND CULTURE 2022-07-21 16:22:00 Alirio Locke [facility] XR ANKLE <3 VW RIGHT 2022-07-21 12:18:38 Singer [facility] BLOOD CULTURE SCREEN 2022-07-21 02:26:00 Singer [facility] COMP. METABOLIC PANEL ([id number]) 2022-07-21 02:26:00 Singer [facility] SEDIMENTATION RATE 2022-07-21 02:26:00 Singer [facility] CBC WITH DIFF 2022-07-21 02:26:00 Singer [facility] LACTIC ACID WHOLE BLOOD 2022-07-21 02:25:00 , Ph [facility] LACTIC ACID WHOLE BLOOD 2022-07-18 20:14:00 , Ph [facility] COMP. METABOLIC PANEL ([id number]) 2022-07-18 20:12:00 Singer [facility] SEDIMENTATION RATE 2022-07-18 20:12:00 Singer [facility] CBC WITH DIFF 2022-07-18 20:12:00 Singer [facility] CT ABDOMEN PELVIS W CONTRAST 2022-06-10 18:56:57 Joseph Melendez [facility] XR CHEST 1 VW 2022-06-10 18:39:57 Joseph Melendez [facility] URINALYSIS 2022-06-10 18:30:00 [facility] ASSIGNMENT OF BENEFITS 2022-06-10 17:41:23 Docto r Unassigned, [place] [facility] CONSENT/REFUSAL FOR DIAGNOSIS AND TREATMENT 2022-06-10 17:39:47 Doctor Unassigned, [place] [facility] LIPASE 2022-06-10 17:15:00 Joseph Melendez [facility] MAGNESIUM 2022-06-10 17:15:00 [facility] TROPONIN I 2022-06-10 17:15:00 [facility] COMP. METABOLIC PANEL ([id number]) 2022-06-10 17:15:00 Joseph Melendez Veronica [facility] CBC WITH DIFF 2022-06-10 17:15:00 Joseph Melendez [facility] EXTERNAL PROVIDER RECORDS 2022-06-03 06:01:00 Do ctor Unassigned, [place] [facility] BASIC METABOLIC PANEL (NA, K, CL, CO2, GLUCOSE, BUN, CREATININE, CA) 2022-05-28 10:01:00 [facility] 2022-05-28 10:01:00 Andreina Childs [facility] BASIC METABOLIC PANEL (NA, K, CL, CO2, GLUCOSE, BUN, CREATININE, CA) 2022-05-27 10:03:00 [facility] CBC WITH DIFF 2022-05-27 10:03:00 Josef[facility] CT ABDOMEN PELVIS WO CONTRAST 2022-05-27 00:19:06 Marcie Nickerson [facility] XR CHEST 1 VW 2022-05-27 00:18:27 Marcie Nickerson [facility] COMP. METABOLIC PANEL ([id number]) 2022-05-26 23:52:00 Marcie Nickerson [facility] CBC WITH DIFF 2022-05-26 22:55:00 Marcie Nickerson [facility] COVID-19 (ID NOW RAPID TESTING) 2022-05-26 22:41:00 Marcie Nickerson [facility] LAB ONLY COVID INTERPRETATION 2022-05-26 22:41:00 Marcie Nickerson [facility] BASIC METABOLIC PANEL (NA, K, CL, CO2, GLUCOSE, BUN, CREATININE, CA) 2022-05-05 10:38:00 Leroy Soni [facility] CBC WITH DIFF 2022-05-05 10:38:00 Leroy Soni [facility] FECES CULTURE 2022-05-03 15:27:00 Brown [facility] OCCULT (GUAIAC) BLOOD 2022-05-03 15:27:00 Brown [facility] CLOSTRIDIUM DIFFICILE TOXIN 2022-05-03 15:25:00 Singer [facility] BASIC METABOLIC PANEL (NA, K, CL, CO2, GLUCOSE, BUN, CREATININE, CA) 2022-05-03 11:51:00 Brown [facility] CBC WITH DIFF 2022-05-03 11:51:00 Brown [facility] CT ABDOMEN PELVIS W CONTRAST 2022-05-03 01:40:00 Singer [facility] COMP. METABOLIC PANEL ([id number]) 2022-05-03 00:41:00 Singer [facility] CBC WITH DIFF 2022-05-03 00:41:00 Singer [facility] Encounters Start Date/Time End Date/Time Encounter Type Admission Type Attending Clinicians Care Facility Care Department Encounter ID Source 2024-03-11 12:28:00 2024-03-11 15:13:00 Emergency X MONICA RYAN [facility] ERT [id number] [facility] 2023-12-30 21:24:00 2023-12-31 02:06:00 Emergency X ISAURA BECK WAKILI [facility] ERT [id number] [facility] 2023-12-30 21:24:00 2023-12-31 02:06:00 Emergency Isaura Beck [facility] [id number] [facility] 2023-09-02 13:45:00 2023-09-02 13:45:00 Outpatient NATALIE SALTER [facility] [id number] [facility] 2023 14:51:00 2023 20:06:00 Emergency X Joseph MELENDEZ [facility] ERT [id number] [facility] 2023 14:51:00 2023 20:06:00 Emergency Joseph Melendez [facility] [id number] [facility] 2023-02-24 15:31:00 2023-02-24 17:09:00 Emergency Kevin LENTZNICANOR [facility] ERT [id number] [facility] 2023-02-24 15:31:00 2023-02-24 17:09:00 Emergency Nicanor Lentz [facility] [id number] [facility] 2023-02-09 00:00:00 2023-02-09 00:00:00 Transition of Care Shira Mead 1.2.840.114 350.1.13.10 4.2.7.2.686 [id number] [facility] 2023-02-02 11:13:00 2023-02-06 14:30:00 Inpatient X MARQUES HINES [facility] [id number] [facility] 2023-02-02 11:13:00 2023-02-06 14:30:00 Hospital Encounter Andreina Uriarte, Marlena Hines [facility] 1.2.840.114 350.1.13.10 4.2.7.2.686 [id number] [facility] 2023-01-25 14:59:00 2023-01-29 14:45:00 Outpatient X MARQUES HINES [facility] [id number] [facility] 2023-01-25 14:59:00 2023-01-29 14:45:00 Emergency Virginia Soni [facility] 1.2.840.114 350.1.13.10 4.2.7.2.686 [id number] [facility] 2023-01-20 14:16:00 2023-01-20 18:32:00 Emergency X VIRGINIA SONI [facility] [id number] [facility] 2023-01-20 14:16:00 2023-01-20 18:32:00 Emergency Virginia Soni [facility] 1.2.840.114 350.1.13.10 4.2.7.2.686 [id number] [id number] [facility] 2022-12-02 00:00:00 2022-12-02 00:00:00 Transition of Care Ena Vaughn 1.2.840.114 350.1.13.10 4.2.7.2.686 [id number] [facility] 2022-11-29 17:47:00 2022-12-01 15:01:00 Outpatient MARQUES ABDALLA [facility] [id number] [facility] 2022-11-29 17:47:00 2022-12-01 15:01:00 Emergency Juno Verdin [facility] 1.2.840.114 350.1.13.10 4.2.7.2.686 [id number] [id number] [facility] 2022-11-26 14:05:00 2022-11-26 20:18:00 Emergency X OLMAN PEREZ [facility] [id number] [facility] 2022-11-26 14:05:00 2022-11-26 20:18:00 Emergency Frankie Olman [facility] 1.2.840.114 350.1.13.10 4.2.7.2.686 [id number] [facility] 2022-11-21 00:00:00 2022-11-21 00:00:00 Orders Only Doctor Unassigned, [place] [facility] 1.2.840.114 350.1.13.10 4.2.7.2.686 [id number] [facility] 2022-10-31 00:00:00 2022-10-31 00:00:00 Transition of Care Ena Vaughn [facility] 1.2.840.114 350.1.13.10 4.2.7.2.686 [id number] [facility] 2022-10-27 22:03:00 2022-10-30 14:20:00 Inpatient X LARRY STEVENSON [facility] [id number] [facility] 2022-10-27 22:03:00 2022-10-30 14:20:00 Hospital Encounter Marcie Nickerson, Isaura Roberts, [facility] 1.2.840.114 350.1.13.10 4.2.7.2.686 [id number] [facility] 2022-08-27 14:15:00 2022-08-27 15:25:22 Outpatient NATALIE SALTER [facility] [id number] [facility] 2022-08-27 14:15:00 2022-08-27 15:25:22 Office Visit Trivedi, Natalie [facility] 1.2840.114 350.1.13.10 4.2.7.2.686 [id number] [facility] 2022-07-31 00:00:00 2022-07-31 00:00:00 Patient Secure Msg Doctor Unassigned, [place] [facility] 1.840.114 350.1.13.10 4.2.7.2.686 [id number] [facility] 2022-07-30 14:15:00 2022-07-30 14:15:00 [facility] [id number] [facility] 2022-07-28 00:00:00 2022-07-28 00:00:00 Transition of Care Ena Vaughn [facility] 1.840.114 350.1.13.10 4.2.7.2.686 [id number] [facility] 2022-07-20 20:56:00 2022-07-26 16:35:00 Hospital Encounter Nicanor Lentz, Marques León [facility] 1.840.114 350.1.13.10 4.2.7.2.686 [id number] [facility] 2022-07-18 14:46:00 2022-07-18 18:35:00 Emergency X NICANOR LENTZ [facility] [id number] [facility] 2022-07-18 14:46:00 2022-07-18 18:35:00 Emergency Nicanor Lentz [facility] 1.2840.114 350.1.13.10 4.2.7.2.686 [id number] [facility] 2022-07-18 14:46:00 2022-07-18 18:35:00 Emergency X NICANOR LENTZ [facility] [id number] [facility] 2022-07-02 00:00:00 2022-07-02 00:00:00 Telephone Jean Jarrett [facility] 1..840.114 350.1.13.10 4.2.7.2.686 [id number] [facility] 2022-07-01 00:00:00 2022-07-01 00:00:00 Telephone Chan [facility] 1..840.114 350.1.13.10 4.2.7.2.686 [id number] [facility] 2022-06-19 14:30:00 2022-06-19 14:30:00 [id number] 2022-06-16 00:00:00 2022-06-16 00:00:00 [facility] 1..840.114 350.1.13.10 4.2.7.2.686 [id number] 044 [id number] [facility] 2022-06-10 10:22:00 2022-06-10 16:51:00 Emergency X Joseph MELENDEZ [facility] [id number] [facility] 2022-06-10 10:22:00 2022-06-10 16:51:00 Emergency Joseph Melendez [facility] 1..840.114 350.1.13.10 4.2.7.2.686 [id number] [facility] 2022-06-03 00:00:00 2022-06-03 00:00:00 Orders Only Doctor Unassigned, [place] [facility] 1.2840.114 350.1.13.10 4.2.7.2.686 [id number] [facility] 2022-06-03 00:00:00 2022-06-03 00:00:00 Telephone Chan [facility] 1..840.114 350.1.13.10 4.2.7.2.686 [id number] [id number] [facility] 2022-05-29 00:00:00 2022-05-29 00:00:00 Transition of Ena Figueroa 1.840.114 350.1.13.10 4.2.7.2.686 [id number] [facility] 2022-05-26 16:25:00 2022-05-28 14:40:00 [id number] 2022-05-26 16:25:00 2022-05-28 14:40:00 Hospital Encounter ShelbidariaberniceaMrcie Jelani [facility] 1.840.114 350.1.13.10 4.2.7.2.686 [id number] [id number] [facility] 2022-05-23 00:00:00 2022-05-23 00:00:00 Telephone Chan [facility] 1..840.114 350.1.13.10 4.2.7.2.686 [id number] 044 [id number] [facility] 2022-05-05 18:41:00 2022-05-16 14:13:00 Inpatient 3 [facility] [place] [id number] [facility] [place] [facility] 2022-05-06 00:00:00 2022-05-06 00:00:00 Transition of Care Roderick Ena [facility] 1.2.840.114 350.1.13.10 4.2.7.2.686 [id number] [facility] 2022-05-02 18:19:00 2022-05-05 17:40:00 Outpatient X [facility] [id number] [facility] 2022-05-02 18:19:00 2022-05-05 17:40:00 [facility] 1.2.840.114 350.1.13.10 4.2.7.2.686 [id number] [facility] 2022-05-01 00:00:00 2022-05-01 00:00:00 Telephone [facility] 1.2.840.114 350.1.13.10 4.2.7.2.686 [id number] 044 [id number] [facility] 2022-04-17 00:00:00 2022-04-17 00:00:00 [facility] 1.2.840.114 350.1.13.10 4.2.7.2.686 [id number] 044 [id number] [facility] 2021-12-05 14:30:00 2021-12-05 14:45:00 Office Visit Chan [facility] 1.2.840.114 350.1.13.10 4.2.7.2.686 [id number] 044 [id number] [facility] 2021-12-05 14:30:00 2021-12-05 14:30:00 Outpatient DOUGIE BLACKMON [facility] [id number] [facility] 2021-12-05 14:30:00 2021-12-05 14:30:00 Outpatient DOUGIE BLACKMON [facility] [id number] [facility] 2021-12-05 00:00:00 2021-12-05 00:00:00 Orders Only Doctor Unassigned, [place] [facility] 1..840.114 350.1.13.10 4.2.7.2.686 [id number] [facility] 2021-11-28 14:00:00 2021-11-28 14:00:00 Outpatient DOUGIE BLACKMON [facility] [id number] [facility] 2021-11-27 00:00:00 2021-11-27 00:00[facility].114 350.1.13.10 4.2.7.2.686 [id number] [facility] 2021-11-21 14:30:00 2021-11-21 14:30:00 Outpatient DOUGIE BLACKMON [facility] [id number] [facility] 2021-11-18 15:00:00 2021-11-18 15:00:00 Nurse Visit Nurse, [facility] [place] [facility] 1.2.840.114 350.1.13.10 4.2.7.2.686 [id number] [facility] 2021-11-18 15:00:00 2021-11-18 13:15:55 Outpatient KATALINA SALTERTNEY [facility] [id number] [facility] 2021-11-11 11:15:00 2021-11-11 14:37:03 [facility] [id number] [facility] 2021-11-11 11:15:00 2021-11-11 14:37:03 Nurse Visit Nurse, [facility] [place] [facility] 1.2.840.114 350.1.13.10 4.2.7.2.686 [id number] [facility] 2021-11-11 00:00:00 2021-11-11 00:00:00 [facility] 1.2.840.114 350.1.13.10 4.2.7.2.686 [id number] [facility] 2021-10-24 00:00:00 2021-10-24 00:00:00 Refill Chan [facility] 1.2.840.114 350.1.13.10 4.2.7.2.686 [id number] 044 [id number] [facility] 2021-10-22 16:00:00 2021-10-22 16:00:00 Nurse Visit Nurse, [facility] [place] [facility] BUILDING 1.2.840.114 350.1.13.10 4.2.7.2.686 [id number] [facility] 2021-10-22 16:00:00 2021-10-22 15:58:34 Outpatient R [facility] [id number] [facility] 2021-10-22 00:00:00 2021-10-22 00:00:00 Telephone Katalina Triveditney [facility] BUILDING 1.2.840.114 350.1.13.10 4.2.7.2.686 [id number] [facility] 2021-09-24 00:00:00 2021-09-24 00:00:00 Refill Chan [facility] 1.2.840.114 350.1.13.10 4.2.7.2.686 [id number] 044 [id number] [facility] 2021-09-17 00:00:00 2021-09-17 00:00:00 Orders Only Doctor Unassigned, [place] [facility] 1.20.114 350.1.13.10 4.2.7.2.686 [id number] [facility] 2021-07-31 15:00:00 2021-07-31 15:42:22 Outpatient [facility] [id number] [facility] 2021-07-31 15:00:00 2021-07-31 15:42:22 [facility] 350.1.13.10 4.2.7.2.686 [id number] [facility] 2021-07-31 15:00:00 2021-07-31 15:00:00 Outpatient R FAROOQ [facility] [id number] [facility] 2021-07-31 00:00:00 2021-07-31 00:00:00 Orders Only Doctor Unassigned, [place] [facility] 1.20.114 350.1.13.10 4.2.7.2.686 [id number] [facility] 2021-07-30 00:00:00 2021-07-30 00:00:00 Telephone Jelani Cordon [facility] 1.84.114 350.1.13.10 4.2.7.2.686 [id number] [id number] [facility] 2021-07-29 00:00:00 2021-07-29 00:00:00 Telephone Jean Jarrett [facility] BUILDING 1..114 350.1.13.10 4.2.7.2.686 [id number] [facility] 2021-07-22 00:00:00 2021-07-22 00:00:00 Orders Only Doctor Unassigned, [place] [facility] 1.20.114 350.1.13.10 4.2.7.2.686 [id number] [facility] 2021-06-26 00:00:00 2021-06-26 00:00:00 Orders Only Doctor Unassigned, [place] [facility] 1.20.114 350.1.13.10 4.2.7.2.686 [id number] [facility] 2021-06-19 14:30:00 2021-06-19 14:30:00 Outpatient R DOUGIE GILES [facility] [id number] [facility] 2021-06-15 00:00:00 2021-06-15 00:00:00 Orders Only Doctor Unassigned, [place] [facility] 1.0.114 350.1.13.10 4.2.7.2.686 [id number] [facility] 2021-06-03 15:45:00 2021-06-03 15:45:00 Outpatient R JEAN JARRETT [facility] [id number] [facility] 2021-06-03 00:00:00 2021-06-03 00:00:00 Telephone Jean Jarrett [facility] PROFESSIO NAL BUILDING 1.84.114 350.1.13.10 4.2.7.2.686 [id number] [facility] 2021-05-15 00:00:00 2021-05-15 00:00:00 Tele[facility] 1.840.114 350.1.13.10 4.2.7.2.686 [id number] [facility] 2021-05-01 00:00:00 2021-05-01 00:00:00 Telephone Liane Negrete [facility] 1.0.114 350.1.13.10 4.2.7.2.686 [id number] [facility] 2021-04-30 00:00:00 2021-04-30 00:00:00 Telephone Only, Ang Db Test [facility] 1.840.114 350.1.13.10 4.2.7.2.686 [id number] [facility] 2021-04-29 15:00:00 2021-04-29 15:15:00 Laboratory Only Only, Ang Db Test FahadMannie [facility] 1.840.114 350.1.13.10 4.2.7.2.686 [id number] [facility] 2021-04-29 15:00:00 2021-04-29 15:00:00 Outpatient R MANNIE WILSON [facility] [id number] [facility] 2021-04-29 00:00:00 2021-04-29 00:00:00 Orders Only Doctor Unassigned, [place] [facility] 1.840.114 350.1.13.10 4.2.7.2.686 [id number] [facility] 2021-04-11 14:15:00 2021-04-11 15:10:33 Outpatient R DOUGIE GILES [facility] [id number] [facility] 2021-04-11 14:15:00 2021-04-11 14:30:00 Office Visit Dougie Giles [facility] 1.2840.114 350.1.13.10 4.2.7.2.686 [id number] [facility] 2021-04-11 14:15:00 2021-04-11 14:15:00 Outpatient R DOUGIE GILES [facility] [id number] [facility] 2021-04-11 14:15:00 2021-04-11 14:15:00 Outpatient R DOUGIE GILES [facility] [id number] [facility] 2021-04-11 14:15:00 2021-04-11 14:15:00 Outpatient R DOUGIE GILES [facility] [id number] [facility] 2021-03-25 15:30:00 2021-03-25 16:15:24 Outpatient R MARGI BOYD [facility] [id number] [facility] 2021-03-25 15:30:00 2021-03-25 16:15:24 Office Visit Margi Boyd [facility] 1..840.114 350.1.13.10 4.2.7.2.686 [id number] [facility] 2021-03-25 15:30:00 2021-03-25 16:15:24 Outpatient R MARGI BOYD [facility] [id number] [facility] 2021-03-08 00:00:00 2021-03-08 00:00:00 Orders Only Doctor Unassigned, [place] [facility] 1.840.114 350.1.13.10 4.2.7.2.686 [id number] [facility] 2021-03-07 13:15:00 2021-03-07 14:35:42 Outpatient R LUIZA JENA [facility] [id number] [facility] 2021-03-07 13:12:17 2021-03-07 14:35:42 Office Visit Luiza Jean [facility] 1..840.114 350.1.13.10 4.2.7.2.686 [id number] [facility] 2021-03-07 13:15:00 2021-03-07 13:15:00 Outpatient R JEAN JARRETT [facility] [id number] [facility] 2021-02-25 00:00:00 2021-02-25 00:00:00 Orders Only Doctor Unassigned, [place] [facility] 1.2840.114 350.1.13.10 4.2.7.2.686 [id number] [facility] 2021-02-21 00:00:00 2021-02-21 00:00:00 Telephone Dougie Giles [facility] BUILD[facility] 1.2840.114 350.1.13.10 4.2.7.2.686 [id number] [id number] [facility] 2021-02-01 00:00:00 2021-02-01 00:00:00 Telephone Jelani Cordon [facility] VLADISLAV HAWKINS NAL BUILDING 1.2.840.114 350.1.13.10 4.2.7.2.686 [id number] [facility] 2021-01-30 00:00:00 2021-01-30 00:00:00 Telephone Dougie Giles [facility] 1.2.840.114 350.1.13.10 4.2.7.2.686 [id number] 044 [id number] [facility] 2021-01-30 00:00:00 2021-01-30 00:00:00 Telephone Dougie Giles [facility]IN [facility] BU[facility] 1.2840.114 350.1.13.10 4.2.7.2.686 [id number] 044 [id number] [facility] 2021-01-18 15:11:53 2021-01-18 15:41:53 Office Visit Justine Garcia [facility]ipin jha [facility] Office Building 1.2.840.114 350.1.13.10 4.2.7.2.686 [id number] [id number] [facility] 2021-01-18 15:00:00 2021-01-18 15:00:00 Outpatient R SIERRA JUSTINE [facility] [id number] [facility] 2021-01-17 00:00:00 2021-01-17 00:00:00 [facility] 1.2.840.114 350.1.13.10 4.2.7.2.686 [id number] 044 [id number] [facility] 2020-11-22 00:00:00 2020-11-22 00:00:00 Telephone Chan [facility] Office Building One 1..840.114 350.1.13.10 4.2.7.2.686 [id number] 044 [id number] [facility] 2020-11-19 00:00:00 2020-11-19 00:00:00 Refill Dougie Giles [facility] Building 1..840.114 350.1.13.10 4.2.7.2.686 [id number] [facility] 2020-10-18 11:40:10 2020-10-18 12:00:10 Sterile Preparation Technician Visit Lab, Adc Fam Pob I Chan [facility] Office [facility] 1..840.114 350.1.13.10 4.2.7.2.686 [id number] [id number] [facility] 2020-10-18 11:20:00 2020-10-18 11:20:00 Outpatient R [facility] [id number] [facility] 2020-10-11 13:52:36 2020-10-11 14:07:36 Office Visit Dougie Giles [facility] Office Building One 1.840.114 350.1.13.10 4.2.7.2.686 [id number] [facility] 2020-10-11 14:00:00 2020-10-11 14:00:00 Outpatient KENJI BLACKMONONY [facility] [id number] [facility] 2020-10-11 00:00:00 2020-10-11 00:00:00 Orders Only Doctor Unassigned, [place] [facility] 1.84.114 350.1.13.10 4.2.7.2.686 [id number] [facility] 2020-09-28 00:00:00 2020-09-28 00:00:00 RefDougie Perez [facility] Building 1.840.114 350.1.13.10 4.2.7.2.686 [id number] 044 [id number] [facility] 2020-09-27 14:00:00 2020-09-27 14:00:00 Outpatient DOUGIE BLACKMON [facility] [id number] [facility] 2020-08-28 13:43:19 2020-08-28 14:44:37 Office Visit Jelani Cordon [facility] Building 1.840.114 350.1.13.10 4.2.7.2.686 [id number] [facility] 2020-08-28 14:20:00 2020-08-28 14:20:00 Outpatient JELANI NOVAK HOWARD [facility] [id number] [facility] 2020-08-02 00:00:00 2020-08-02 00:00:00 RefJelani Rodriguez [facility] Building 1.840.114 350.1.13.10 4.2.7.2.686 [id number] [facility] 2020-07-17 00:00:00 2020-07-17 00:00:00 Orders Only Doctor Unassigned, [place] [facility] 1.2840.114 350.1.13.10 4.2.7.2.686 [id number] [facility] 2020-07-09 00:00:00 2020-07-09 00:00:00 Shannon Giles [facility] Office Building One 1..840.114 350.1.13.10 4.2.7.2.686 [id number] [facility] 2020-06-07 17:50:00 2020-06-07 17:50:00 Outpatient JEZ DUNNE [facility] [id number] [facility] 2020-06-07 16:00:00 2020-06-07 16:00:00 Outpatient JEZ DUNNE [facility] [id number] [facility] 2020-05-10 18:10:00 2020-05-10 18:10:00 Outpatient JEZ DUNNE [facility] [id number] [facility] 2020-05-08 00:00:00 2020-05-08 00:00:00 Jelani Espinoza [facility] Building 1..840.114 350.1.13.10 4.2.7.2.686 [id number] [facility] 2020-04-02 00:00:00 2020-04-02 00:00:00 Dougie Burgess [facility] Building 1..840.114 350.1.13.10 4.2.7.2.686 [id number] [facility] 2020-03-12 00:00:00 2020-03-12 00:00:00 Fahad Giles Dougie [facility] Office Building One 1.2.840.114 350.1.13.10 4.2.7.2.686 [id number] [facility] 2020-03-09 00:00:00 2020-03-09 00:00:00 Telephone Jelani Cordon [facility] Building 1.2.840.114 350.1.13.10 4.2.7.2.686 [id number] [facility] 2020-01-11 00:00:00 2020-01-11 00:00:00 Telephone Jelani Cordon [facility] Building 1.2.840.114 350.1.13.10 4.2.7.2.686 [id number] [facility] 2019-10-03 00:00:00 2019-10-03 00:00:00 Telephone Jelani Cordon [facility] Building 1.2.840.114 350.1.13.10 4.2.7.2.686 [id number] [facility] 2019-09-22 08:30:00 2019-09-22 08:30:00 Outpatient DOUGIE BLACKMON [facility] [id number] [facility] 2019-09-19 13:45:00 2019-09-19 13:45:00 Outpatient DOUGIE BLACKMON [facility] [id number] [facility] 2019-09-19 07:50:44 2019-09-19 08:05:44 Telemedici ne Visit Chan Dougie [facility] Building 1.2.840.114 350.1.13.10 4.2.7.2.686 [id number] [facility] 2019-07-19 00:00:00 2019-07-19 00:00:00 Refill Jelani Cordon [facility] Building 1.2.840.114 350.1.13.10 4.2.7.2.686 [id number] [facility] 2019-07-18 00:00:00 2019-07-18 00:00:00 RefJelani Rodriguez [facility] Building 1.2.840.114 350.1.13.10 4.2.7.2.686 [id number] [facility] 2019-07-11 00:00:00 2019-07-11 00:00:00 Dougie Burgess [facility] Office Building One 1.2.840.114 350.1.13.10 4.2.7.2.686 [id number] [facility] 2019-06-13 00:00:00 2019-06-13 00:00:00 Telephone Jelani Cordon [facility] Building 1.2.840.114 350.1.13.10 4.2.7.2.686 [id number] [id number] [facility] 2019-05-23 14:20:22 2019-05-23 15:03:09 Office Visit Jelani Cordon [facility] Building 1.2.840.114 350.1.13.10 4.2.7.2.686 [id number] [facility] 2019-05-19 13:41:15 2019-05-19 23:59:00 Outpatient R JELANI CORDON JELANI [facility] [id number] [facility] 2019-05-19 13:41:00 2019-05-19 23:59:00 Hospital Encounter Jelani Cordon [facility] 1.2.840.114 350.1.13.10 4.2.7.2.686 [id number] [facility] 2019-05-10 13:35:57 2019-05-10 14:47:10 Office Visit Jelani Cordon [facility] Building 1.2.840.114 350.1.13.10 4.2.7.2.686 [id number] [id number] [facility] 2019-05-10 00:00:00 2019-05-10 00:00:00 Orders Only Doctor Unassigned, [place] [facility] [facility] 1.2.840.114 350.1.13.10 4.2.7.2.686 [id number] [id number] [facility] 2019-04-19 00:00:00 2019-04-19 00:00:00 Orders Only Doctor Unassigned, [place] [facility] 1.2.840.114 350.1.13.10 4.2.7.2.686 [id number] [facility] 2016-02-26 03:16:00 2016-02-26 03:16:00 Outpatient Raju_[place] [id number] [facility] Results Test Description Test Time Test Comments Results Result Comments Source CT CHEST PULMONARY ANGIOGRAM 05:43:54 ORDERING PHYSICIAN: GABRIEL NICOLAS HISTORY: Shortness of breath Pulmonary embolism (PE) suspected, unknownD-dimer COMPARISON: none TECHNIQUE: ?CT angiogram of the chest with IV contrast. Multiplanar 2Dreformatted images were obtained. This study was performed according toALARA principle for radiation dose reduction. Additional 3D volume renderedimages were obtained. FINDINGS: No focal infiltrates or areas of airspace consolidation are seen.Scarring/atelectas is is seen in the lingula and left lower lobe. There areno pleural effusions. There is no pneumothorax. No suspicious endobronchiallesions are seen in the central airways. Moderately sized hiatal hernia isseen in the posterior mediastinum. The heart is normal in size. There is nopericardial effusion. No pathologically enlarged lymph nodes are seen inthe mediastinum or lauren. The aorta is normal in caliber. There is noevidence of dissection. Pulmonary arteries are also normal in caliber. Nofilling defects are seen to suggest the presence of pulmonary emboli.Limited visualization of the upper abdominal structures shows no evidenceof acute abnormalities. No suspicious focal osseous lesions are seen. [facility] CT ABDOMEN PELVIS W CONTRAST 05:27:07 Exam: CT Abdomen and Pelvis with contrast, 12/30/2023 11:00 PM. Ordering Physician: ISAURA BECK. History: Abdominal pain, acute, nonlocalized . Comparison: CT abdomen pelvis 11/26/2022. Technique: CT abdomen and pelvis was obtained with intravenous contrast. CTwas performed according to ALARA (As Low As Reasonably Achievable). Technical Quality: Adequate. Findings: ABDOMEN/PELVIS:Liver: Normal.Gallbladder/bili ramsey: Contracted gallbladder. No biliary ductal dilation.Pancreas: Normal.Spleen: Normal. Adrenal glands: Nodular thickening of the left adrenal glandKidneys and ureters: No stone or hydronephrosisBladder: There is bladder wall thickening.Reproductive organs: Normal for age. Stomach/bowel: Colonic diverticulosis. Large hiatal hernia. No evidence ofan obstruction. Lymph nodes: No lymphadenopathy.Periton eum: No organized fluid collection or free air.Vessels: Atherosclerosis without aneurysm. MUSCULOSKELETAL:Bones: No acute osseous finding.Soft tissues: Small amount of fluid and inflammatory stranding along theleft greater trochanter of the femur. Fat-containing umbilical hernia. [facility] ([id number])2023-12-31 03:56:36* Test Item Value Reference Range Interpretation Comme nts NA (test code = 9082356810) 134 mmol/L 135-145 L K (test code = 6521768191) 4.0 mmol/L 3.5-5.0 CL (test code = 3108013914) 106 mmol/L 98-108 CO2 TOTAL (test code = 5990503365) 21 mmol/L 23-31 L AGAP (test code = 6506547496) 7 2-16 BUN (test code = 1487151397) 40 mg/dL 7-23 H GLUCOSE (test code = 5304673489) 148 mg/dL 70-110 H CREATININE (test code = 2160-0) 0.60 mg/dL 0.60-1.25 TOTAL BILI (test code = 5061694616) 0.3 mg/dL 0.1-1.1 CALCIUM (test code = 9730410331) 9.0 mg/dL 8.6-10.6 T PROTEIN (test code = 5478345296) 7.0 g/dL 6.3-8.2 ALBUMIN (test code = 0756008054) 3.8 g/dL 3.5-5.0 ALK PHOS (test code = 4994730427) 85 U/L 34-122 ALTv (test code = 1742-6) 18 U/L 5-50 AST(SGOT) (test code = 3522954641) 24 U/L 13-40 eGFR (test code = 27997-1) 98.8 mL/min/1.73m2 CKD-EPI eGFR (2020). Assuming creatinine has been stable day-to-day for at least three months, the eGFR indicates Category G1 (>= 90 mL/min/1.73 m2) Lab Interpretation (test code = 75703-1) Abnormal [facility] with [id number] 03:42:41* Test Item Value Reference Range Interpretation Comme nts WBC (test code = 6690-2) 5.97 4.20-10.70 RBC (test code = 789-8) 4.47 4.26-5.52 HGB (test code = 718-7) 12.8 g/dL 12.2-16.4 HCT (test code = 4544-3) 39.9 % 38.4-49.3 MCV (test code = 787-2) 89.3 fL 81.7-95.6 MCH (test code = 785-6) 28.6 pg 26.1-32.7 MCHC (test code = 786-4) 32.1 g/dL 31.2-35.0 RDW-SD (test code = 35933-1) 50.2 fL 38.5-51.6 RDW-CV (test code = 788-0) 15.3 % 12.1-15.4 PLT (test code = 777-3) 210 150-328 MPV (test code = 39881-8) 8.8 fL 9.8-13.0 L NRBC/100 WBC (test code = 2656365499) 0.0 0.0-10.0 NRBC x10^3 (test code = 0594738405) See_Comment [Automated messa ge] The system which generated this result transmitted reference range: 10*3/?L. The reference range was not used to interpret this result as normal/abnormal. GRAN MAT (NEUT) % (test code = 770-8) 66.5 % IMM GRAN % (test code = 3536406443) 0.50 % LYMPH % (test code = 736-9) 21.9 % MONO % (test code = 5905-5) 8.5 % EOS % (test code = 713-8) 2.3 % BASO % (test code = 706-2) 0.3 % GRAN MAT x10^3(ANC) (test code = 8013072266) 3.96 10*3/uL 1.99-6.95 IMM GRAN x10^3 (test code = 0768801777) 0.03 10*3/uL 0.00-0.06 LYMPH x10^3 (test code = 731-0) 1.31 10*3/uL 1.09-3.23 MONO x10^3 (test code = 742-7) 0.51 10*3/uL 0.36-1.02 EOS x10^3 (test code = 711-2) 0.14 10*3/uL 0.06-0.53 BASO x10^3 (test code = 704-7) 0.01-0.09 Lab Interpretation (test code = 73172-0) [facility] ([id number])2023 22:21:33* Test Item Value Reference Range Interpretation Comme nts NA (test code = 0541706455) 140 mmol/L 135-145 K (test code = 1162061086) 4.5 mmol/L 3.5-5.0 CL (test code = 6742043986) 105 mmol/L 98-108 CO2 TOTAL (test code = 3634993793) 29 mmol/L 23-31 AGAP (test code = 4138504901) 6 2-16 BUN (test code = 6814558854) 30 mg/dL 7-23 H GLUCOSE (test code = 1227692033) 90 mg/dL 70-110 CREATININE (test code = 5882026156) 0.61 mg/dL 0.60-1.25 TOTAL BILI (test code = 0290638843) 0.5 mg/dL 0.1-1.1 CALCIUM (test code = 8328267141) 9.4 mg/dL 8.6-10.6 T PROTEIN (test code = 6402089216) 6.8 g/dL 6.3-8.2 ALBUMIN (test code = 2286542099) 3.5 g/dL 3.5-5.0 ALK PHOS (test code = 7177006580) 65 U/L 34-122 ALTv (test code = 1742-6) 16 U/L 5-50 AST(SGOT) (test code = 3528606610) 31 U/L 13-40 eGFR (test code = 79482-0) 98.3 mL/min/1.73m2 CKD-EPI eGFR (2020). Assuming creatinine has been stable day-to-day for at least three months, the eGFR indicates Category G1 (>= 90 mL/min/1.73 m2) Lab Interpretation (test code = 44858-9) Abnormal [facility] WITH [id number] 21:58:52* Test Item Value Reference Range Interpretation Comme nts WBC (test code = 6690-2) 6.24 See_Comment [Automated IES] The system which generated this result transmitted reference range: 4.20 - 10.70 10*3/?L. The reference range was not used to interpret this result as normal/abnormal. RBC (test code = 789-8) 4.28 See_Comment [Automated IES] The system which generated this result transmitted [...] 33.2 g/dL 31.2-35.0 RDW-SD (test code = 09289-3) 48.7 fL 38.5-51.6 RDW-CV (test code = 788-0) 14.7 % 12.1-15.4 PLT (test code = 777-3) 209 See_Comment [Automated messa ge] The system which generated this result transmitted reference range: 150 - 328 10*3/?L. The reference range was not used to interpret this result as normal/abnormal. MPV (test code = 69588-3) 8.6 fL 9.8-13.0 L NRBC/100 WBC (test code = 9090060625) 0.0 See_Comment [Automated Xi3 ssage] The system which generated this result transmitted reference range: 0.0 - 10.0 /100 WBCs. The reference range was not used to interpret this result as normal/abnormal. NRBC x10^3 (test code = 6830228858) See_Comment [Automated messa ge] The system which generated this result transmitted reference range: 10*3/?L. The reference range was not used to interpret this result as normal/abnormal. GRAN MAT (NEUT) % (test code = 770-8) 66.3 % IMM GRAN % (test code = 1821170332) 0.30 % LYMPH % (test code = 736-9) 21.3 % MONO % (test code = 5905-5) 8.8 % EOS % (test code = 713-8) 3.0 % BASO % (test code = 706-2) 0.3 % GRAN MAT x10^3(ANC) (test code = 7891783409) 4.13 10*3/uL 1.99-6.95 IMM GRAN x10^3 (test code = 5609063632) 0.00-0.06 LYMPH x10^3 (test code = 731-0) 1.33 10*3/uL 1.09-3.23 MONO x10^3 (test code = 742-7) 0.55 10*3/uL 0.36-1.02 EOS x10^3 (test code = 711-2) 0.19 10*3/uL 0.06-0.53 BASO x10^3 (test code = 704-7) 0.01-0.09 Lab Interpretation (test code = 12718-4) Abnormal [facility] METABOLIC PANEL (NA, K, CL, CO2, GLUCOSE, BUN, CREATININE, CA)2023-02-24 22:19:20* Test Item Value Reference Range Interpretation Comme nts NA (test code = 4354763699) 137 mmol/L 135-145 K (test code = 8647552690) 3.8 mmol/L 3.5-5.0 CL (test code = 2810298974) 106 mmol/L 98-108 CO2 TOTAL (test code = 3867065369) 24 mmol/L 23-31 AGAP (test code = 6460523389) 7 2-16 BUN (test code = 0220550588) 25 mg/dL 7-23 H GLUCOSE (test code = 6343408670) 109 mg/dL 70-110 CREATININE (test code = 4046963049) 0.56 mg/dL 0.60-1.25 L CALCIUM (test code = 0278920548) 8.8 mg/dL 8.6-10.6 eGFR (test code = 21799-8) 101.5 mL/min/1.73m2 CKD-EPI eGFR (2020). Assuming creatinine has been stable day-to-day for at least three months, the eGFR indicates Category G1 (>= 90 mL/min/1.73 m2) Lab Interpretation (test code = 59722-8) Abnormal [facility] METABOLIC PANEL (NA, K, CL, CO2, GLUCOSE, BUN, CREATININE, CA)2023-02-05 10:07:11* Test Item Value Reference Range Interpretation Comme nts NA (test code = 1993216428) 141 mmol/L 135-145 K (test code = 6155919742) 3.9 mmol/L 3.5-5.0 CL (test code = 2435510407) 110 mmol/L 98-108 H CO2 TOTAL (test code = 0047942128) 24 mmol/L 23-31 AGAP (test code = 0310404729) 7 2-16 BUN (test code = 4799099289) 26 mg/dL 7-23 H GLUCOSE (test code = 6006999063) 88 mg/dL 70-110 CREATININE (test code = 9331850417) 0.62 mg/dL 0.60-1.25 CALCIUM (test code = 3207200932) 8.5 mg/dL 8.6-10.6 L eGFR (test code = 01492-7) 98.4 mL/min/1.73m2 CKD-EPI eGFR (2020). Assuming creatinine has been stable day-to-day for at least three months, the eGFR indicates Category G1 (>= 90 mL/min/1.73 m2) Lab Interpretation (test code = 35475-5) Abnormal [facility] WITH [id number] 08:38:12* Test Item Value Reference Range Interpretation Comme nts WBC (test code = 6690-2) 7.22 See_Comment [Automated SourceLaira IO Turbine] The system which generated this result transmitted reference range: 4.20 - 10.70 10*3/?L. The reference range was not used to interpret this result as normal/abnormal. RBC (test code = 789-8) 3.64 See_Comment L [Automated SourceLaira ge] The system which generated this result [...] 32.0 g/dL 31.2-35.0 RDW-SD (test code = 44888-1) 50.4 fL 38.5-51.6 RDW-CV (test code = 788-0) 14.9 % 12.1-15.4 PLT (test code = 777-3) 171 See_Comment [Automated SourceLaira ge] The system which generated this result transmitted reference range: 150 - 328 10*3/?L. The reference range was not used to interpret this result as normal/abnormal. MPV (test code = 01673-2) 8.5 fL 9.8-13.0 L NRBC/100 WBC (test code = 4946271537) 0.0 See_Comment [Automated me ssage] The system which generated this result transmitted reference range: 0.0 - 10.0 /100 WBCs. The reference range was not used to interpret this result as normal/abnormal. NRBC x10^3 (test code = 7015008031) See_Comment [Automated messa ge] The system which generated this result transmitted reference range: 10*3/?L. The reference range was not used to interpret this result as normal/abnormal. GRAN MAT (NEUT) % (test code = 770-8) 71.3 % IMM GRAN % (test code = 4175823328) 1.00 % LYMPH % (test code = 736-9) 19.3 % MONO % (test code = 5905-5) 6.9 % EOS % (test code = 713-8) 1.4 % BASO % (test code = 706-2) 0.1 % GRAN MAT x10^3(ANC) (test code = 4492793592) 5.15 10*3/uL 1.99-6.95 IMM GRAN x10^3 (test code = 7809931543) 0.07 10*3/uL 0.00-0.06 H LYMPH x10^3 (test code = 731-0) 1.39 10*3/uL 1.09-3.23 MONO x10^3 (test code = 742-7) 0.50 10*3/uL 0.36-1.02 EOS x10^3 (test code = 711-2) 0.10 10*3/uL 0.06-0.53 BASO x10^3 (test code = 704-7) 0.01-0.09 Lab Interpretation (test code = 01165-2) Abnormal [facility] METABOLIC PANEL (NA, K, CL, CO2, GLUCOSE, BUN, CREATININE, CA)2023-02-04 11:48:34* Test Item Value Reference Range Interpretation Comme nts NA (test code = 1304034116) 141 mmol/L 135-145 K (test code = 0695432061) 3.8 mmol/L 3.5-5.0 CL (test code = 6471509518) 109 mmol/L 98-108 H CO2 TOTAL (test code = 5918142941) 23 mmol/L 23-31 AGAP (test code = 0880856738) 9 2-16 BUN (test code = 1242326280) 27 mg/dL 7-23 H GLUCOSE (test code = 2359004993) 114 mg/dL 70-110 H CREATININE (test code = 6609418367) 0.65 mg/dL 0.60-1.25 CALCIUM (test code = 2907867917) 8.7 mg/dL 8.6-10.6 eGFR (test code = 17180-7) 97.0 mL/min/1.73m2 CKD-EPI eGFR (2020). Assuming creatinine has been stable day-to-day for at least three months, the eGFR indicates Category G1 (>= 90 mL/min/1.73 m2) Lab Interpretation (test code = 88818-9) Abnormal [facility] WITH [id number] 10:36:47* Test Item Value Reference Range Interpretation Comme nts WBC (test code = 6690-2) 9.11 See_Comment [Automated SourceLaira IO [employer]urbine] The system which generated this result transmitted reference range: 4.20 - 10.70 10*3/?L. The reference range was not used to interpret this result as normal/abnormal. RBC (test code = 789-8) 3.59 See_Comment L [Automated SourceLaira [employer]] The system which generated this result transmitted [...] 32.1 g/dL 31.2-35.0 RDW-SD (test code = 20858-5) 50.7 fL 38.5-51.6 RDW-CV (test code = 788-0) 14.7 % 12.1-15.4 PLT (test code = 777-3) 192 See_Comment [Automated SourceLaira ge] The system which generated this result transmitted reference range: 150 - 328 10*3/?L. The reference range was not used to interpret this result as normal/abnormal. MPV (test code = 57413-4) 8.6 fL 9.8-13.0 L NRBC/100 WBC (test code = 2122995166) 0.0 See_Comment [Automated Xi3 ssage] The system which generated this result transmitted reference range: 0.0 - 10.0 /100 WBCs. The reference range was not used to interpret this result as normal/abnormal. NRBC x10^3 (test code = 7180229921) See_Comment [Automated SourceLaira ge] The system which generated this result transmitted reference range: 10*3/?L. The reference range was not used to interpret this result as normal/abnormal. GRAN MAT (NEUT) % (test code = 770-8) 80.5 % IMM GRAN % (test code = 5290234899) 0.70 % LYMPH % (test code = 736-9) 10.6 % MONO % (test code = 5905-5) 7.9 % EOS % (test code = 713-8) 0.1 % BASO % (test code = 706-2) 0.2 % GRAN MAT x10^3(ANC) (test code = 1585687859) 7.33 10*3/uL 1.99-6.95 H IMM GRAN x10^3 (test code = 0105812243) 0.06 10*3/uL 0.00-0.06 LYMPH x10^3 (test code = 731-0) 0.97 10*3/uL 1.09-3.23 L MONO x10^3 (test code = 742-7) 0.72 10*3/uL 0.36-1.02 EOS x10^3 (test code = 711-2) 0.06-0.53 L BASO x10^3 (test code = 704-7) 0.01-0.09 Lab Interpretation (test code = 90396-4) [facility]normal [facility] 17:57:30* Test Item Value Reference Range Interpretation Comme ricardo Procalcitonin (test code = 4335966127) 0.06 ng/mL <=0.07 STEPHANIE (test code = [...] lung abscess/empyema. For further information please refer to:[email or web address] Lab Interpretation (test code = 63008-8) Normal [facility] with Yuwbilghmvhi4373-71-60 12:23:54* Test Item Value Reference Range Interpretation Comme nts WBC (test code = 6690-2) 4.43 See_Comment [Automated SourceLaira ge] The system which generated this result transmitted reference range: 4.20 - 10.70 10*3/?L. The reference range was not used to interpret this result as normal/abnormal. RBC (test code = 789-8) 3.88 See_Comment L [Automated SourceLaira ge] The system which generated this result [...] 31.4 g/dL 31.2-35.0 RDW-SD (test code = 42396-5) 51.0 fL 38.5-51.6 RDW-CV (test code = 788-0) 14.6 % 12.1-15.4 PLT (test code = 777-3) 183 See_Comment [Automated messa ge] The system which generated this result transmitted reference range: 150 - 328 10*3/?L. The reference range was not used to interpret this result as normal/abnormal. MPV (test code = 15184-2) 8.5 fL 9.8-13.0 L NRBC/100 WBC (test code = 0387109201) 0.0 See_Comment [Automated me ssage] The system which generated this result transmitted reference range: 0.0 - 10.0 /100 WBCs. The reference range was not used to interpret this result as normal/abnormal. NRBC x10^3 (test code = 5313497673) See_Comment [Automated messa ge] The system which generated this result transmitted reference range: 10*3/?L. The reference range was not used to interpret this result as normal/abnormal. GRAN MAT (NEUT) % (test code = 770-8) 60.9 % IMM GRAN % (test code = 2442248418) 0.50 % LYMPH % (test code = 736-9) 18.1 % MONO % (test code = 5905-5) 20.3 % EOS % (test code = 713-8) 0.0 % BASO % (test code = 706-2) 0.2 % GRAN MAT x10^3(ANC) (test code = 3995872833) 2.70 10*3/uL 1.99-6.95 IMM GRAN x10^3 (test code = 5289076315) 0.00-0.06 LYMPH x10^3 (test code = 731-0) 0.80 10*3/uL 1.09-3.23 L MONO x10^3 (test code = 742-7) 0.90 10*3/uL 0.36-1.02 EOS x10^3 (test code = 711-2) 0.06-0.53 L BASO x10^3 (test code = 704-7) 0.01-0.09 Lab Interpretation (test code = 13568-9) Abnormal [facility] Metabolic Panel (NA, K, CL, CO2, GLUCOSE, BUN, CREATININE, CA)2023-02-03 10:51:24* Test Item Value Reference Range Interpretation Comme nts NA (test code = 5458397008) 140 mmol/L 135-145 K (test code = 5186144914) 4.0 mmol/L 3.5-5.0 CL (test code = 5446669341) 107 mmol/L 98-108 CO2 TOTAL (test code = 4225470285) 24 mmol/L 23-31 AGAP (test code = 0669718289) 9 2-16 BUN (test code = 9462618116) 24 mg/dL 7-23 H GLUCOSE (test code = 9081324034) 125 mg/dL 70-110 H CREATININE (test code = 7742263573) 0.69 mg/dL 0.60-1.25 CALCIUM (test code = 6382401810) 8.6 mg/dL 8.6-10.6 eGFR (test code = 95021-2) 95.3 mL/min/1.73m2 CKD-EPI eGFR (2020). Assuming creatinine has been stable day-to-day for at least three months, the eGFR indicates Category G1 (>= 90 mL/min/1.73 m2) Lab Interpretation (test code = 04694-3) [facility] (58069)2023-02-02 17:27:20* Test Item Value Reference Range Interpretation Comme nts NA (test code = 6715440457) 139 mmol/L 135-145 K (test code = 2055309063) 3.8 mmol/L 3.5-5.0 CL (test code = 8084844638) 106 mmol/L 98-108 CO2 TOTAL (test code = 9828399713) 24 mmol/L 23-31 AGAP (test code = 1323891953) 9 2-16 BUN (test code = 3621302554) 25 mg/dL 7-23 H GLUCOSE (test code = 4430649055) 112 mg/dL 70-110 H CREATININE (test code = 0875813997) 0.79 mg/dL 0.60-1.25 TOTAL BILI (test code = 3864784493) 0.3 mg/dL 0.1-1.1 CALCIUM (test code = 9272449880) 8.8 mg/dL 8.6-10.6 T PROTEIN (test code = 7485418331) 6.4 g/dL 6.3-8.2 ALBUMIN (test code = 1118785726) 3.2 g/dL 3.5-5.0 L ALK PHOS (test code = 3699918420) 65 U/L 34-122 ALTv (test code = 1742-6) 25 U/L 5-50 AST(SGOT) (test code = 4689316619) 30 U/L 13-40 eGFR (test code = 45258-8) 95.1 mL/min/1.73m2 STEPHANIE (test code = STEPHANIE) [...] imaging tests). Lab Interpretation (test code = 37307-3) Abnormal [facility] WITH UQQW5174-84-91 17:15:14* Test Item Value Reference Range Interpretation Comme nts WBC (test code = 6690-2) 4.49 See_Comment [Automated IES] The system which generated this result transmitted [...] 32.9 g/dL 31.2-35.0 RDW-SD (test code = 09854-1) 49.1 fL 38.5-51.6 RDW-CV (test code = 788-0) 14.6 % 12.1-15.4 PLT (test code = 777-3) 198 See_Comment [Automated messa ge] The system which generated this result transmitted reference range: 150 - 328 10*3/?L. The reference range was not used to interpret this result as normal/abnormal. MPV (test code = 61777-2) 8.4 fL 9.8-13.0 L NRBC/100 WBC (test code = 7177378762) 0.0 See_Comment [Automated Xi3 ssage] The system which generated this result transmitted reference range: 0.0 - 10.0 /100 WBCs. The reference range was not used to interpret this result as normal/abnormal. NRBC x10^3 (test code = 9405909381) See_Comment [Automated messa ge] The system which generated this result transmitted reference range: 10*3/?L. The reference range was not used to interpret this result as normal/abnormal. GRAN MAT (NEUT) % (test code = 770-8) 68.4 % IMM GRAN % (test code = 3637728721) 0.20 % LYMPH % (test code = 736-9) 11.8 % MONO % (test code = 5905-5) 19.4 % EOS % (test code = 713-8) 0.0 % BASO % (test code = 706-2) 0.2 % GRAN MAT x10^3(ANC) (test code = 4654572524) 3.07 10*3/uL 1.99-6.95 IMM GRAN x10^3 (test code = 2799515062) 0.00-0.06 LYMPH x10^3 (test code = 731-0) 0.53 10*3/uL 1.09-3.23 L MONO x10^3 (test code = 742-7) 0.87 10*3/uL 0.36-1.02 EOS x10^3 (test code = 711-2) 0.06-0.53 L BASO x10^3 (test code = 704-7) 0.01-0.09 Lab Interpretation (test code = 51655-0) [facility]normal [facility] Whole Xyrew4371-15-29 21:47:26* Test Item Value Reference Range Interpretation Comme nts LACTIC ACID (test code = 3546493324) 1.46 mmol/L 0.50-2.20 Lab Interpretation (test cod e = 33874-4) Normal [facility] CenterSEDIMENTATION [id number] 21:42:21* Test Item Value Reference Range Interpretation Comme nts ESR (test code = 77618-5) 16 See_Comment H [Automated messa ge] The system which generated this result transmitted reference range: 0 - 10 mm/HR. The reference range was not used to interpret this result as normal/abnormal. Lab Interpretation (test code = 37609-7) [facility]normal [facility] (79188)2023-01-25 21:24:38* Test Item Value Reference Range Interpretation Comme nts NA (test code = 1749412021) 143 mmol/L 135-145 K (test code = 5479849277) 3.9 mmol/L 3.5-5.0 CL (test code = 2811511664) 105 mmol/L 98-108 CO2 TOTAL (test code = 6818666961) 29 mmol/L 23-31 AGAP (test code = 3283398376) 9 2-16 BUN (test code = 3734267710) 38 mg/dL 7-23 H GLUCOSE (test code = 4050276038) 100 mg/dL 70-110 CREATININE (test code = 1531446267) 0.81 mg/dL 0.60-1.25 TOTAL BILI (test code = 4202053205) 0.2 mg/dL 0.1-1.1 CALCIUM (test code = 5743881985) 9.5 mg/dL 8.6-10.6 T PROTEIN (test code = 3899410609) 6.8 g/dL 6.3-8.2 ALBUMIN (test code = 0083625794) 3.7 g/dL 3.5-5.0 ALK PHOS (test code = 4802705784) 81 U/L 34-122 ALTv (test code = 1742-6) 22 U/L 5-50 AST(SGOT) (test code = 3418146396) 26 U/L 13-40 eGFR (test code = 2704443976) 92.4 mL/min/1.73m2 STEPHANIE (test code = STEPHANIE) [...] imaging tests). Lab Interpretation (test code = 31159-2) Abnormal [facility] WITH [id number] 20:59:14* Test Item Value Reference Range Interpretation Comme nts WBC (test code = 6690-2) 7.29 See_Comment [Automated [employer] ge] The system which generated this result transmitted reference range: 4.20 - 10.70 10*3/?L. The reference range was not used to interpret this result as normal/abnormal. RBC (test code = 789-8) 4.52 See_Comment [Automated [employer]] The system which generated this result [...] 32.1 g/dL 31.2-35.0 RDW-SD (test code = 48017-0) 49.1 fL 38.5-51.6 RDW-CV (test code = 788-0) 14.2 % 12.1-15.4 PLT (test code = 777-3) 202 See_Comment [Automated [employer]] The system which generated this result transmitted reference range: 150 - 328 10*3/?L. The reference range was not used to interpret this result as normal/abnormal. MPV (test code = 33722-1) 8.8 fL 9.8-13.0 L NRBC/100 WBC (test code = 6619308631) 0.0 See_Comment [Automated Xi[employer] ssage] The system which generated this result transmitted reference range: 0.0 - 10.0 /100 WBCs. The reference range was not used to interpret this result as normal/abnormal. NRBC x10^3 (test code = 2509095783) See_Comment [Automated messa ge] The system which generated this result transmitted reference range: 10*3/?L. The reference range was not used to interpret this result as normal/abnormal. GRAN MAT (NEUT) % (test code = 770-8) 72.5 % IMM GRAN % (test code = 8302762947) 0.30 % LYMPH % (test code = 736-9) 15.4 % MONO % (test code = 5905-5) 8.9 % EOS % (test code = 713-8) 2.6 % BASO % (test code = 706-2) 0.3 % GRAN MAT x10^3(ANC) (test code = 6214295099) 5.29 10*3/uL 1.99-6.95 IMM GRAN x10^3 (test code = 3907490637) 0.00-0.06 LYMPH x10^3 (test code = 731-0) 1.12 10*3/uL 1.09-3.23 MONO x10^3 (test code = 742-7) 0.65 10*3/uL 0.36-1.02 EOS x10^3 (test code = 711-2) 0.19 10*3/uL 0.06-0.53 BASO x10^3 (test code = 704-7) 0.01-0.09 Lab Interpretation (test code = 59102-9) [id number]:35[facility]20* Test Item Value Reference Range Interpretation Comme nts TROPONIN I (test code = 1675153863) 0.006 ng/mL <=0.034 STEPHANIE (test code = [...] of biotin. Lab Interpretation (test code = 63665-0) Normal [facility] [id number] 20:33:03* Test Item Value Reference Range Interpretation Comme nts NT-proBNP (test code = 73259-9) 129 pg/mL <=125 STEPHANIE (test code = STEPHANIE) Result Indeterminate-Consid er causes of NT-proBNP elevation other than Heart failure such as acute coronary syndrome, pulmonary embolism, pulmonary hypertension, sepsis, stroke, and renal dysfunction. Lab Interpretation (test code = 89340-7) [facility]normal [facility]OLIC PANEL ([id number])2023-01-20 20:23:37* Test Item Value Reference Range Interpretation Comme nts NA (test code = 6121969929) 142 mmol/L 135-145 K (test code = 7964295761) 4.8 mmol/L 3.5-5.0 CL (test code = 5159073343) 109 mmol/L 98-108 H CO2 TOTAL (test code = 2552355920) 26 mmol/L 23-31 AGAP (test code = 0325687435) 7 2-16 BUN (test code = 1541692431) 33 mg/dL 7-23 H GLUCOSE (test code = 5268911210) 123 mg/dL 70-110 H CREATININE (test code = 0476395520) 0.70 mg/dL 0.60-1.25 TOTAL BILI (test code = 8574209936) 0.5 mg/dL 0.1-1.1 CALCIUM (test code = 4251894445) 9.3 mg/dL 8.6-10.6 T PROTEIN (test code = 0232581163) 7.0 g/dL 6.3-8.2 ALBUMIN (test code = 3676516490) 3.8 g/dL 3.5-5.0 ALK PHOS (test code = 7548992744) 64 U/L 34-122 ALTv (test code = 1742-6) 22 U/L 5-50 AST(SGOT) (test code = 2032139213) 44 U/L 13-40 H eGFR (test code = 0053135346) 109.4 mL/min/1.73m2 STEPHNAIE (test code = STEPHANIE) [employer]omerular [...] imaging tests). Lab Interpretation (test code = 97129-0) [facility]normal [facility] 20:23:37* Test Item Value Reference Range Interpretation Comme nts MAGNESIUM (test code = 5156201373) 2.2 mg/dL 1.7-2.4 Lab Interpretation (test cod e = 93550-1) Normal [facility] WITH [id number] 20:10:16* Test Item Value Reference Range Interpretation Comme nts WBC (test code = 6690-2) 7.96 See_Comment [Automated IES] The system which generated this result transmitted reference range: 4.20 - 10.70 10*3/?L. The reference range was not used to interpret this result as normal/abnormal. RBC (test code = 789-8) 4.60 See_Comment [Automated IES] The system which generated this result transmitted [...] 32.6 g/dL 31.2-35.0 RDW-SD (test code = 37174-5) 47.1 fL 38.5-51.6 RDW-CV (test code = 788-0) 14.1 % 12.1-15.4 PLT (test code = 777-3) 221 See_Comment [Automated messa ge] The system which generated this result transmitted reference range: 150 - 328 10*3/?L. The reference range was not used to interpret this result as normal/abnormal. MPV (test code = 43535-5) 8.9 fL 9.8-13.0 L NRBC/100 WBC (test code = 5042001217) 0.0 See_Comment [Automated Xi3 ssage] The system which generated this result transmitted reference range: 0.0 - 10.0 /100 WBCs. The reference range was not used to interpret this result as normal/abnormal. NRBC x10^3 (test code = 5405683361) See_Comment [Automated messa ge] The system which generated this result transmitted reference range: 10*3/?L. The reference range was not used to interpret this result as normal/abnormal. GRAN MAT (NEUT) % (test code = 770-8) 69.6 % IMM GRAN % (test code = 9842379731) 0.30 % LYMPH % (test code = 736-9) 18.3 % MONO % (test code = 5905-5) 10.2 % EOS % (test code = 713-8) 1.3 % BASO % (test code = 706-2) 0.3 % GRAN MAT x10^3(ANC) (test code = 9313427117) 5.55 10*3/uL 1.99-6.95 IMM GRAN x10^3 (test code = 2307005650) 0.00-0.06 LYMPH x10^3 (test code = 731-0) 1.46 10*3/uL 1.09-3.23 MONO x10^3 (test code = 742-7) 0.81 10*3/uL 0.36-1.02 EOS x10^3 (test code = 711-2) 0.10 10*3/uL 0.06-0.53 BASO x10^3 (test code = 704-7) 0.01-0.09 Lab Interpretation (test code = 41939-8) Abnormal [facility] ([id number])2022-11-29 23:35:53* Test Item Value Reference Range Interpretation Comme nts NA (test code = 3903580966) 137 mmol/L 135-145 K (test code = 5915793130) 4.4 mmol/L 3.5-5.0 CL (test code = 8684860703) 103 mmol/L 98-108 CO2 TOTAL (test code = 3270024936) 26 mmol/L 23-31 AGAP (test code = 1480591655) 8 2-16 BUN (test code = 3592295036) 30 mg/dL 7-23 H GLUCOSE (test code = 7875479624) 124 mg/dL 70-110 H CREATININE (test code = 1856769771) 0.69 mg/dL 0.60-1.25 TOTAL BILI (test code = 2040717531) 0.3 mg/dL 0.1-1.1 CALCIUM (test code = 8659310772) 9.3 mg/dL 8.6-10.6 T PROTEIN (test code = 9602307160) 6.5 g/dL 6.3-8.2 ALBUMIN (test code = 1796073180) 3.6 g/dL 3.5-5.0 ALK PHOS (test code = 9914933546) 78 U/L 34-122 ALTv (test code = 1742-6) 21 U/L 5-50 AST(SGOT) (test code = 0617858220) 25 U/L 13-40 eGFR (test code = 4966500784) 111.2 mL/min/1.73m2 STEPHANIE (test code = STEPHANIE) [...] imaging tests). Lab Interpretation (test code = 70788-8) Abnormal [facility] WITH [id number] 23:22:49* Test Item Value Reference Range Interpretation Comme nts WBC (test code = 6690-2) 5.98 See_Comment [Automated IES] The system which generated this result transmitted reference range: 4.20 - 10.70 10*3/?L. The reference range was not used to interpret this result as normal/abnormal. RBC (test code = 789-8) 4.09 See_Comment L [Automated IES] The system which generated this result transmitted [...] 34.2 g/dL 31.2-35.0 RDW-SD (test code = 04721-0) 45.1 fL 38.5-51.6 RDW-CV (test code = 788-0) 13.9 % 12.1-15.4 PLT (test code = 777-3) 210 See_Comment [Automated SourceLaira ge] The system which generated this result transmitted reference range: 150 - 328 10*3/?L. The reference range was not used to interpret this result as normal/abnormal. MPV (test code = 59826-5) 8.4 fL 9.8-13.0 L NRBC/100 WBC (test code = 3329250558) 0.0 See_Comment [Automated Xi3 ssage] The system which generated this result transmitted reference range: 0.0 - 10.0 /100 WBCs. The reference range was not used to interpret this result as normal/abnormal. NRBC x10^3 (test code = 0491010578) See_Comment [Automated SourceLaira ge] The system which generated this result transmitted reference range: 10*3/?L. The reference range was not used to interpret this result as normal/abnormal. GRAN MAT (NEUT) % (test code = 770-8) 68.8 % IMM GRAN % (test code = 9910750009) 0.20 % LYMPH % (test code = 736-9) 18.6 % MONO % (test code = 5905-5) 8.7 % EOS % (test code = 713-8) 3.0 % BASO % (test code = 706-2) 0.7 % GRAN MAT x10^3(ANC) (test code = 7767211795) 4.12 10*3/uL 1.99-6.95 IMM GRAN x10^3 (test code = 9321451336) 0.00-0.06 LYMPH x10^3 (test code = 731-0) 1.11 10*3/uL 1.09-3.23 MONO x10^3 (test code = 742-7) 0.52 10*3/uL 0.36-1.02 EOS x10^3 (test code = 711-2) 0.18 10*3/uL 0.06-0.53 BASO x10^3 (test code = 704-7) 0.04 10*3/uL 0.01-0.09 Lab Interpretation (test code = 23046-8) Abnormal [facility] METABOLIC PANEL ([id number])2022-11-26 21:19:14* Test Item Value Reference Range Interpretation Comme nts NA (test code = 2801287723) 135 mmol/L 135-145 K (test code = 1996355577) 4.1 mmol/L 3.5-5.0 CL (test code = 0202568657) 102 mmol/L 98-108 CO2 TOTAL (test code = 3968015610) 27 mmol/L 23-31 AGAP (test code = 1800976256) 6 2-16 BUN (test code = 0621920579) 23 mg/dL 7-23 GLUCOSE (test code = 3579010194) 97 mg/dL 70-110 CREATININE (test code = 0497636088) 0.54 mg/dL 0.60-1.25 L TOTAL BILI (test code = 8095842468) 0.4 mg/dL 0.1-1.1 CALCIUM (test code = 1545697292) 8.9 mg/dL 8.6-10.6 T PROTEIN (test code = 3286880130) 6.5 g/dL 6.3-8.2 ALBUMIN (test code = 1604179617) 3.6 g/dL 3.5-5.0 ALK PHOS (test code = 3195554080) 70 U/L 34-122 ALTv (test code = 1742-6) 20 U/L 5-50 AST(SGOT) (test code = 5665687158) 36 U/L 13-40 eGFR (test code = 3116636278) 147.5 mL/min/1.73m2 STEPHANIE (test code = STEPHANIE) [...] imaging tests). Lab Interpretation (test code = 01815-8) Abnormal [facility] WITH [id number] 20:32:47* Test Item Value Reference Range Interpretation Comme nts WBC (test code = 6690-2) 9.43 See_Comment [Automated IES] The system which generated this result transmitted reference range: 4.20 - 10.70 10*3/?L. The reference range was not used to interpret this result as normal/abnormal. RBC (test code = 789-8) 4.13 See_Comment L [Automated IES] The system which generated this result transmitted [...] 33.8 g/dL 31.2-35.0 RDW-SD (test code = 10501-7) 45.9 fL 38.5-51.6 RDW-CV (test code = 788-0) 14.0 % 12.1-15.4 PLT (test code = 777-3) 171 See_Comment [Automated messa ge] The system which generated this result transmitted reference range: 150 - 328 10*3/?L. The reference range was not used to interpret this result as normal/abnormal. MPV (test code = 74642-5) 8.5 fL 9.8-13.0 L NRBC/100 WBC (test code = 3842124071) 0.0 See_Comment [Automated Xi3 ssage] The system which generated this result transmitted reference range: 0.0 - 10.0 /100 WBCs. The reference range was not used to interpret this result as normal/abnormal. NRBC x10^3 (test code = 7873707966) See_Comment [Automated messa ge] The system which generated this result transmitted reference range: 10*3/?L. The reference range was not used to interpret this result as normal/abnormal. GRAN MAT (NEUT) % (test code = 770-8) 79.4 % IMM GRAN % (test code = 9303123593) 0.20 % LYMPH % (test code = 736-9) 9.1 % MONO % (test code = 5905-5) 8.4 % EOS % (test code = 713-8) 2.7 % BASO % (test code = 706-2) 0.2 % GRAN MAT x10^3(ANC) (test code = 7343083341) 7.49 10*3/uL 1.99-6.95 H IMM GRAN x10^3 (test code = 5584853405) 0.00-0.06 LYMPH x10^3 (test code = 731-0) 0.86 10*3/uL 1.09-3.23 L MONO x10^3 (test code = 742-7) 0.79 10*3/uL 0.36-1.02 EOS x10^3 (test code = 711-2) 0.25 10*3/uL 0.06-0.53 BASO x10^3 (test code = 704-7) 0.01-0.09 Lab Interpretation (test code = 14883-3) Abnormal [facility] METABOLIC PANEL (NA, K, CL, CO2, GLUCOSE, BUN, CREATININE, CA)2022-10-30 09:42:32* Test Item Value Reference Range Interpretation Comme nts NA (test code = 1818316232) 135 mmol/L 135-145 K (test code = 4777813891) 4.3 mmol/L 3.5-5.0 CL (test code = 8464958591) 105 mmol/L 98-108 CO2 TOTAL (test code = 1720152867) 25 mmol/L 23-31 AGAP (test code = 8600989891) 5 2-16 BUN (test code = 9350108276) 12 mg/dL 7-23 GLUCOSE (test code = 8271132861) 104 mg/dL 70-110 CREATININE (test code = 9618148359) 0.59 mg/dL 0.60-1.25 L CALCIUM (test code = 3925586868) 8.8 mg/dL 8.6-10.6 eGFR (test code = 6899804765) 133.2 mL/min/1.73m2 STEPHANIE (test code = STEPHANIE) [...] imaging tests). Lab Interpretation (test code = 93273-3) [facility]normal [facility] 09:42:32* Test Item Value Reference Range Interpretation Comme nts MAGNESIUM (test code = 3675816376) 2.0 mg/dL 1.7-2.4 Lab Interpretation (test cod e = 65094-1) Normal [facility] WITH [id number] 09:34:52* Test Item Value Reference Range Interpretation Comme nts WBC (test code = 6690-2) 5.97 See_Comment [Automated SourceLaira IO Turbine] The system which generated this result transmitted reference range: 4.20 - 10.70 10*3/?L. The reference range was not used to interpret this result as normal/abnormal. RBC (test code = 789-8) 3.81 See_Comment L [Automated SourceLaira IO Turbine] The system which generated this result transmitted [...] 33.2 g/dL 31.2-35.0 RDW-SD (test code = 03540-1) 44.7 fL 38.5-51.6 RDW-CV (test code = 788-0) 13.5 % 12.1-15.4 PLT (test code = 777-3) 207 See_Comment [Automated messa ge] The system which generated this result transmitted reference range: 150 - 328 10*3/?L. The reference range was not used to interpret this result as normal/abnormal. MPV (test code = 38547-0) 8.4 fL 9.8-13.0 L NRBC/100 WBC (test code = 2068718083) 0.0 See_Comment [Automated me ssage] The system which generated this result transmitted reference range: 0.0 - 10.0 /100 WBCs. The reference range was not used to interpret this result as normal/abnormal. NRBC x10^3 (test code = 4148882318) See_Comment [Automated messa ge] The system which generated this result transmitted reference range: 10*3/?L. The reference range was not used to interpret this result as normal/abnormal. GRAN MAT (NEUT) % (test code = 770-8) 69.1 % IMM GRAN % (test code = 7430695184) 0.20 % LYMPH % (test code = 736-9) 17.3 % MONO % (test code = 5905-5) 9.7 % EOS % (test code = 713-8) 3.2 % BASO % (test code = 706-2) 0.5 % GRAN MAT x10^3(ANC) (test code = 6342103462) 4.13 10*3/uL 1.99-6.95 IMM GRAN x10^3 (test code = 4693245287) 0.00-0.06 LYMPH x10^3 (test code = 731-0) 1.03 10*3/uL 1.09-3.23 L MONO x10^3 (test code = 742-7) 0.58 10*3/uL 0.36-1.02 EOS x10^3 (test code = 711-2) 0.19 10*3/uL 0.06-0.53 BASO x10^3 (test code = 704-7) 0.03 10*3/uL 0.01-0.09 Lab Interpretation (test code = 02148-0) Abnormal [facility] GLUCOSE (AUTOMATED)2022-10-29 13:19:23* Test Item Value Reference Range Interpretation Comme [facility] POCT GLU (test code = 9314695093) 99 mg/dL 70-110 Lab Interpretation (test cod e = 54749-0) Normal [facility] METABOLIC PANEL (NA, K, CL, CO2, GLUCOSE, BUN, CREATININE, CA)2022-10-29 08:19:42* Test Item Value Reference Range Interpretation Comme nts NA (test code = 6022786582) 132 mmol/L 135-145 L K (test code = 8439025225) 4.8 mmol/L 3.5-5.0 CL (test code = 1942949357) 102 mmol/L 98-108 CO2 TOTAL (test code = 8273716105) 25 mmol/L 23-31 AGAP (test code = 3833252131) 5 2-16 BUN (test code = 6883587019) 18 mg/dL 7-23 GLUCOSE (test code = 5965942778) 109 mg/dL 70-110 CREATININE (test code = 3401720829) 0.60 mg/dL 0.60-1.25 CALCIUM (test code = 6198340051) 8.8 mg/dL 8.6-10.6 eGFR (test code = 7293963245) 130.6 mL/min/1.73m2 STEPHANIE (test code = STEPHANIE) [...] imaging tests). Lab Interpretation (test code = 81812-4) [facility]normal [facility] 08:19:42* Test Item Value Reference Range Interpretation Comme nts MAGNESIUM (test code = 2705862043) 1.9 mg/dL 1.7-2.4 Lab Interpretation (test cod e = 16377-7) Normal [facility] WITH [id number] 08:00:22* Test Item Value Reference Range Interpretation Comme nts WBC (test code = 6690-2) 8.45 See_Comment [Automated SourceLaira IO Turbine] The system which generated this result transmitted reference range: 4.20 - 10.70 10*3/?L. The reference range was not used to interpret this result as normal/abnormal. RBC (test code = 789-8) 3.98 See_Comment L [Automated SourceLaira IO Turbine] The system which generated this result transmitted [...] 33.8 g/dL 31.2-35.0 RDW-SD (test code = 50074-2) 44.5 fL 38.5-51.6 RDW-CV (test code = 788-0) 13.6 % 12.1-15.4 PLT (test code = 777-3) 195 See_Comment [Automated messa ge] The system which generated this result transmitted reference range: 150 - 328 10*3/?L. The reference range was not used to interpret this result as normal/abnormal. MPV (test code = 70016-3) 8.7 fL 9.8-13.0 L NRBC/100 WBC (test code = 7405924607) 0.0 See_Comment [Automated me ssage] The system which generated this result transmitted reference range: 0.0 - 10.0 /100 WBCs. The reference range was not used to interpret this result as normal/abnormal. NRBC x10^3 (test code = 2932595041) See_Comment [Automated messa ge] The system which generated this result transmitted reference range: 10*3/?L. The reference range was not used to interpret this result as normal/abnormal. GRAN MAT (NEUT) % (test code = 770-8) 75.3 % IMM GRAN % (test code = 6363593484) 0.20 % LYMPH % (test code = 736-9) 15.1 % MONO % (test code = 5905-5) 8.5 % EOS % (test code = 713-8) 0.7 % BASO % (test code = 706-2) 0.2 % GRAN MAT x10^3(ANC) (test code = 7613979385) 6.35 10*3/uL 1.99-6.95 IMM GRAN x10^3 (test code = 6637281864) 0.00-0.06 LYMPH x10^3 (test code = 731-0) 1.28 10*3/uL 1.09-3.23 MONO x10^3 (test code = 742-7) 0.72 10*3/uL 0.36-1.02 EOS x10^3 (test code = 711-2) 0.06 10*3/uL 0.06-0.53 BASO x10^3 (test code = 704-7) 0.01-0.09 Lab Interpretation (test code = 91557-6) Abnormal [facility] GLUCOSE (AUTOMATED)2022-10-29 02:05:51* Test Item Value Reference Range Interpretation Comme nts POCT GLU (test code = 9843034980) 162 mg/dL 70-110 H Lab Interpretation (test cod e = 28050-9) [facility]2022-10-28 21:27:56* Test Item Value Reference Range Interpretation Comme nts POCT GLU (test code = 7956242032) 104 mg/dL 70-110 Lab Interpretation (test cod e = 09598-2) Normal [facility]AL[facility]IN2023-07-25 20:41:29* Test Item Value Reference Range Interpretation Comme nts Procalcitonin (test code = 6942830815) 0.12 ng/mL <=0.07 H STEPHANIE (test code [...] lung abscess/empyema. For further information please refer to:[email or web address] Lab Interpretation (test code = 74716-4) [facility] (NA, K, CL, CO2, GLUCOSE, BUN, CREATININE, CA)2022-10-28 17:04:09* Test Item Value Reference Range Interpretation Comme nts NA (test code = 5370351660) 133 mmol/L 135-145 L K (test code = 6134794021) 3.9 mmol/L 3.5-5.0 CL (test code = 6591590659) 103 mmol/L 98-108 CO2 TOTAL (test code = 8476188663) 26 mmol/L 23-31 AGAP (test code = 3177215446) 4 2-16 BUN (test code = 7541529010) 18 mg/dL 7-23 GLUCOSE (test code = 3227699320) 118 mg/dL 70-110 H CREATININE (test code = 4351665230) 0.59 mg/dL 0.60-1.25 L CALCIUM (test code = 3197675559) 8.5 mg/dL 8.6-10.6 L eGFR (test code = 9009796814) 133.2 mL/min/1.73m2 STEPHANIE (test code = STEPHANIE) [...] imaging tests). Lab Interpretation (test code = 04645-3) Abnormal [facility]2022-10-28 16:57:29* Test Item Value Reference Range Interpretation Comme [facility] POCT GLU (test code = 8358653410) 98 mg/dL 70-110 Lab Interpretation (test cod e = 16338-8) Normal [facility] WITH [id number] 16:01:20* Test Item Value Reference Range Interpretation Comme [facility] WBC (test code = 6690-2) 8.13 See_Comment [Automated SourceLaira IO Turbine] The system which generated this result transmitted reference range: 4.20 - 10.70 10*3/?L. The reference range was not used to interpret this result as normal/abnormal. RBC (test code = 789-8) 3.79 See_Comment L [Automated SourceLaira ge] The system which generated this result [...] 33.9 g/dL 31.2-35.0 RDW-SD (test code = 28563-4) 44.5 fL 38.5-51.6 RDW-CV (test code = 788-0) 13.6 % 12.1-15.4 PLT (test code = 777-3) 166 See_Comment [Automated SourceLaira ge] The system which generated this result transmitted reference range: 150 - 328 10*3/?L. The reference range was not used to interpret this result as normal/abnormal. MPV (test code = 10094-5) 8.6 fL 9.8-13.0 L NRBC/100 WBC (test code = 5279387467) 0.0 See_Comment [Automated Xi3 ssage] The system which generated this result transmitted reference range: 0.0 - 10.0 /100 WBCs. The reference range was not used to interpret this result as normal/abnormal. NRBC x10^3 (test code = 2428897540) See_Comment [Automated SourceLaira ge] The system which generated this result transmitted reference range: 10*3/?L. The reference range was not used to interpret this result as normal/abnormal. GRAN MAT (NEUT) % (test code = 770-8) 77.6 % IMM GRAN % (test code = 8737204150) 0.20 % LYMPH % (test code = 736-9) 11.1 % MONO % (test code = 5905-5) 10.8 % EOS % (test code = 713-8) 0.2 % BASO % (test code = 706-2) 0.1 % GRAN MAT x10^3(ANC) (test code = 7418076197) 6.30 10*3/uL 1.99-6.95 IMM GRAN x10^3 (test code = 7682798071) 0.00-0.06 LYMPH x10^3 (test code = 731-0) 0.90 10*3/uL 1.09-3.23 L MONO x10^3 (test code = 742-7) 0.88 10*3/uL 0.36-1.02 EOS x10^3 (test code = 711-2) 0.06-0.53 L BASO x10^3 (test code = 704-7) 0.01-0.09 Lab Interpretation (test code = 65900-4) Abnormal [facility] CenterLaidic Acid Whole [id number] 15:43:36* Test Item Value Reference Range Interpretation Comme nts LACTIC ACID (test code = 4540970954) 1.48 mmol/L 0.50-2.20 Lab Interpretation (test cod e = 48277-5) Normal [facility] CenterP[facility] (AUTOMATED)2022-10-28 13:55:42* Test Item Value Reference Range Interpretation Comme nts POCT GLU (test code = 4097486316) 108 mg/dL 70-110 Lab Interpretation (test cod e = 81508-7) Normal [facility] CenterGlycosylated Hemoglobin (A1C)2022-10-28 13:35:21* Test Item Value Reference Range Interpretation Comme nts HGB A1C (test code = 4548-4) 5.4 % 4.0-5.7 STEPHANIE (test code = STEPHANIE) Reference RangesNormal: <5.7%Prediabetes: 5.7 - 6.4%Diabetes: > 6.5% Lab Interpretation (test code = 53679-3) Normal [facility]2023-[facility]-25 12:48:08* Test Item Value Reference Range Interpretation Comme nts MAGNESIUM (test code = 9482333313) 2.0 mg/dL 1.7-2.4 Lab Interpretation (test cod e = 83719-9) Normal [facility] CenterTROPONIN [id number] 04:32:06* Test Item Value Reference Range Interpretation Comme nts TROPONIN I (test code = 1122687639) 0.029 ng/mL <=0.034 STEPHANIE (test code = [...] of biotin. Lab Interpretation (test code = 24669-6) Normal [facility]. METABOLIC PANEL (81548)2022-10-28 04:21:43* Test Item Value Reference Range Interpretation Comme nts NA (test code = 6464595061) 133 mmol/L 135-145 L K (test code = 8561053515) 4.2 mmol/L 3.5-5.0 CL (test code = 6257997698) 100 mmol/L 98-108 CO2 TOTAL (test code = 8777281008) 23 mmol/L 23-31 AGAP (test code = 3441852557) 10 2-16 BUN (test code = 4215418334) 24 mg/dL 7-23 H GLUCOSE (test code = 7089975185) 217 mg/dL 70-110 H CREATININE (test code = 7297914742) 0.79 mg/dL 0.60-1.25 TOTAL BILI (test code = 7741513119) 0.5 mg/dL 0.1-1.1 CALCIUM (test code = 1054540352) 8.6 mg/dL 8.6-10.6 T PROTEIN (test code = 8634922757) 6.6 g/dL 6.3-8.2 ALBUMIN (test code = 9631674024) 3.6 g/dL 3.5-5.0 ALK PHOS (test code = 0891749033) 76 U/L 34-122 ALTv (test code = 1742-6) 20 U/L 5-50 AST(SGOT) (test code = 8406487465) 31 U/L 13-40 eGFR (test code = 6775584910) 95.1 mL/min/1.73m2 STEPHANIE (test code = STEPHANIE) [...] imaging tests). Lab Interpretation (test code = 37345-8) Abnormal [facility] WITH [id number] 03:55:19* Test Item Value Reference Range Interpretation [...] 33.9 g/dL 31.2-35.0 RDW-SD (test code = 86778-0) 44.8 fL 38.5-51.6 RDW-CV (test code = 788-0) 13.6 % 12.1-15.4 PLT (test code = 777-3) 189 See_Comment [Automated message] The system which generated this result transmitted reference range: 150 - 328 10*3/?L. The reference range was not used to interpret this result as normal/abnormal. MPV (test code = 96173-9) 8.7 fL 9.8-13.0 L NRBC/100 WBC (test code = 1513751210) 0.0 See_Comment [Automated message] The system which generated this result transmitted reference range: 0.0 - 10.0 /100 WBCs. The reference range was not used to interpret this result as normal/abnormal. NRBC x10^3 (test code = 5720739413) See_Comment [Automated message] The system which generated this result transmitted reference range: 10*3/?L. The reference range was not used to interpret this result as normal/abnormal. GRAN MAT (NEUT) % (test code = 770-8) 83.5 % IMM GRAN % (test code = 8108222467) 0.60 % LYMPH % (test code = 736-9) 6.0 % MONO % (test code = 5905-5) 9.6 % EOS % (test code = 713-8) 0.1 % BASO % (test code = 706-2) 0.2 % GRAN MAT x10^3(ANC) (test code = 9809754520) 10.59 10*3/uL 1.99-6.95 H IMM GRAN x10^3 (test code = 2868632704) 0.08 10*3/uL 0.00-0.06 H LYMPH x10^3 (test code = 731-0) 0.76 10*3/uL 1.09-3.23 L MONO x10^3 (test code = 742-7) 1.21 10*3/uL 0.36-1.02 H EOS x10^3 (test code = 711-2) 0.06-0.53 L BASO x10^3 (test code = 704-7) 0.01-0.09 Lab Interpretation (test code = 07916-0) Abnormal [facility] CULTURE [id number] 03:02:22* Test Item Value Reference Range Interpretation Comme nts Blood Culture-Aerobic (test code = 65345-1) No organisms isolated No growth Previous preliminary [...] 2201 CDT Blood Culture-Anaerobic (test code = 94349-8) No organisms isolated No growth Previous preliminary [...] 2201 CDT Lab Interpretation (test code = 28646-4) Normal [facility] CULTURE [id number] 03:02:22* Test Item Value Reference Range Interpretation Comme nts Blood Culture-Aerobic (test code = 05366-1) No organisms isolated No growth Previous preliminary [...] 2201 CDT Blood Culture-Anaerobic (test code = 54499-5) No organisms isolated No growth Previous preliminary [...] 2201 CDT Lab Interpretation (test code = 09693-7) [facility] ([id number])2022-07-21 03:19:43* Test Item Value Reference Range Interpretation Comme nts NA (test code = 9095119243) 137 mmol/L 135-145 K (test code = 5451437472) 4.6 mmol/L 3.5-5.0 CL (test code = 0360889971) 102 mmol/L 98-108 CO2 TOTAL (test code = 4933676164) 25 mmol/L 23-31 AGAP (test code = 1149551717) 10 2-16 BUN (test code = 9968240726) 16 mg/dL 7-23 GLUCOSE (test code = 8205382835) 147 mg/dL 70-110 H CREATININE (test code = 3083683585) 1.06 mg/dL 0.60-1.25 TOTAL BILI (test code = 4905937745) 0.4 mg/dL 0.1-1.1 CALCIUM (test code = 4927279600) 9.3 mg/dL 8.6-10.6 T PROTEIN (test code = 1984968218) 6.3 g/dL 6.3-8.2 ALBUMIN (test code = 4092159864) 3.7 g/dL 3.5-5.0 ALK PHOS (test code = 2742568768) 85 U/L 34-122 ALTv (test code = 1742-6) 19 U/L 5-50 AST(SGOT) (test code = 7660997370) 23 U/L 13-40 eGFR (test code = 7965482221) 67.7 mL/min/1.73m2 STEPHANIE (test code = STEPHANIE) [...] imaging tests). Lab Interpretation (test code = 00664-4) [facility]normal [facility] [id number] 03:10:02* Test Item Value Reference Range Interpretation Comme nts ESR (test code = 67481-3) 20 See_Comment H [Automated messa IO Turbine] The system which generated this result transmitted reference range: 0 - 10 mm/HR. The reference range was not used to interpret this result as normal/abnormal. Lab Interpretation (test code = 32153-5) Abnormal [facility] WITH [id number] 02:50:23* Test Item Value Reference Range Interpretation Comme nts WBC (test code = 6690-2) 8.04 See_Comment [Automated SourceLaira IO Turbine] The system which generated this result transmitted [...] 32.6 g/dL 31.2-35.0 RDW-SD (test code = 14014-7) 46.5 fL 38.5-51.6 RDW-CV (test code = 788-0) 13.5 % 12.1-15.4 PLT (test code = 777-3) 239 See_Comment [Automated messa ge] The system which generated this result transmitted reference range: 150 - 328 10*3/?L. The reference range was not used to interpret this result as normal/abnormal. MPV (test code = 08075-9) 8.6 fL 9.8-13.0 L NRBC/100 WBC (test code = 9194491988) 0.0 See_Comment [Automated Xi3 ssage] The system which generated this result transmitted reference range: 0.0 - 10.0 /100 WBCs. The reference range was not used to interpret this result as normal/abnormal. NRBC x10^3 (test code = 1593666388) See_Comment [Automated messa ge] The system which generated this result transmitted reference range: 10*3/?L. The reference range was not used to interpret this result as normal/abnormal. GRAN MAT (NEUT) % (test code = 770-8) 79.8 % IMM GRAN % (test code = 1370006295) 0.50 % LYMPH % (test code = 736-9) 11.8 % MONO % (test code = 5905-5) 6.8 % EOS % (test code = 713-8) 0.7 % BASO % (test code = 706-2) 0.4 % GRAN MAT x10^3(ANC) (test code = 9253965961) 6.41 10*3/uL 1.99-6.95 IMM GRAN x10^3 (test code = 0171389811) 0.04 10*3/uL 0.00-0.06 LYMPH x10^3 (test code = 731-0) 0.95 10*3/uL 1.09-3.23 L MONO x10^3 (test code = 742-7) 0.55 10*3/uL 0.36-1.02 EOS x10^3 (test code = 711-2) 0.06 10*3/uL 0.06-0.53 BASO x10^3 (test code = 704-7) 0.03 10*3/uL 0.01-0.09 Lab Interpretation (test code = 55277-6) [facility]normal [facility] [id number] 21:13:33* Test Item Value Reference Range Interpretation Comme nts ESR (test code = 83100-4) 11 See_Comment H [Automated messa ge] The system which generated this result transmitted reference range: 0 - 10 mm/HR. The reference range was not used to interpret this result as normal/abnormal. Lab Interpretation (test code = 73198-5) [facility]normal [facility] (75143)2022-07-18 20:55:16* Test Item Value Reference Range Interpretation Comme nts NA (test code = 4117814546) 135 mmol/L 135-145 K (test code = 8427277783) 4.7 mmol/L 3.5-5.0 CL (test code = 2462230140) 103 mmol/L 98-108 CO2 TOTAL (test code = 9914924350) 23 mmol/L 23-31 AGAP (test code = 6476172735) 9 2-16 BUN (test code = 9971580919) 15 mg/dL 7-23 GLUCOSE (test code = 7542278142) 89 mg/dL 70-110 CREATININE (test code = 5845662878) 0.71 mg/dL 0.60-1.25 TOTAL BILI (test code = 4744722663) 0.5 mg/dL 0.1-1.1 CALCIUM (test code = 0201363895) 8.9 mg/dL 8.6-10.6 T PROTEIN (test code = 5795186133) 6.1 g/dL 6.3-8.2 L ALBUMIN (test code = 1867356908) 3.5 g/dL 3.5-5.0 ALK PHOS (test code = 6273716669) 82 U/L 34-122 ALTv (test code = 1742-6) 18 U/L 5-50 AST(SGOT) (test code = 7679601734) 24 U/L 13-40 eGFR (test code = 1026320736) 107.6 mL/min/1.73m2 STEPHANIE (test code = STEPHANIE) [...] imaging tests). Lab Interpretation (test code = 76746-8) Abnormal [facility] WITH [id number] 20:37:13* Test Item Value Reference Range Interpretation Comme nts WBC (test code = 6690-2) 6.41 See_Comment [Automated SourceLaira ge] The system which generated this result transmitted reference range: 4.20 - 10.70 10*3/?L. The reference range was not used to interpret this result as normal/abnormal. RBC (test code = 789-8) 4.17 See_Comment L [Automated SourceLaira ge] The system which generated this result [...] 32.9 g/dL 31.2-35.0 RDW-SD (test code = 71540-1) 45.5 fL 38.5-51.6 RDW-CV (test code = 788-0) 13.4 % 12.1-15.4 PLT (test code = 777-3) 246 See_Comment [Automated SourceLaira ge] The system which generated this result transmitted reference range: 150 - 328 10*3/?L. The reference range was not used to interpret this result as normal/abnormal. MPV (test code = 36986-8) 8.7 fL 9.8-13.0 L IPF % (test code = 0806132291) 0.8 % 1.2-10.7 L Platelet count measured by fluorescence method. NRBC/100 WBC (test code = 1949947959) 0.0 See_Comment [Automated Xi3 ssage] The system which generated this result transmitted reference range: 0.0 - 10.0 /100 WBCs. The reference range was not used to interpret this result as normal/abnormal. NRBC x10^3 (test code = 7372993253) See_Comment [Automated SourceLaira ge] The system which generated this result transmitted reference range: 10*3/?L. The reference range was not used to interpret this result as normal/abnormal. GRAN MAT (NEUT) % (test code = 770-8) 70.9 % IMM GRAN % (test code = 4016537200) 0.30 % LYMPH % (test code = 736-9) 18.3 % MONO % (test code = 5905-5) 8.1 % EOS % (test code = 713-8) 1.9 % BASO % (test code = 706-2) 0.5 % GRAN MAT x10^3(ANC) (test code = 8016803390) 4.55 10*3/uL 1.99-6.95 IMM GRAN x10^3 (test code = 8943718233) 0.00-0.06 LYMPH x10^3 (test code = 731-0) 1.17 10*3/uL 1.09-3.23 MONO x10^3 (test code = 742-7) 0.52 10*3/uL 0.36-1.02 EOS x10^3 (test code = 711-2) 0.12 10*3/uL 0.06-0.53 BASO x10^3 (test code = 704-7) 0.03 10*3/uL 0.01-0.09 Lab Interpretation (test code = 79731-6) [facility] [id number] 17:59:56* Test Item Value Reference Range Interpretation Comme nts TROPONIN I (test code = 2473418194) 0.008 ng/mL <=0.034 STEPHANIE (test code = [...] of biotin. Lab Interpretation (test code = 76212-7) Normal [facility]20[facility]-07 17:48:33* Test Item Value Reference Range Interpretation Comme nts MAGNESIUM (test code = 6051855154) 1.9 mg/dL 1.7-2.4 Lab Interpretation (test cod e = 74118-4) Normal [facility]. METABOLIC PANEL ([id number])2022-06-10 17:48:14* Test Item Value Reference Range Interpretation Comme nts NA (test code = 9700257142) 135 mmol/L 135-145 K (test code = 5327223872) 4.2 mmol/L 3.5-5.0 CL (test code = 2481656652) 104 mmol/L 98-108 CO2 TOTAL (test code = 5694012548) 24 mmol/L 23-31 AGAP (test code = 5999410160) 7 2-16 BUN (test code = 3360998142) 13 mg/dL 7-23 GLUCOSE (test code = 2988336238) 129 mg/dL 70-110 H CREATININE (test code = 3536356839) 0.67 mg/dL 0.60-1.25 TOTAL BILI (test code = 0585767424) 0.6 mg/dL 0.1-1.1 CALCIUM (test code = 0792903714) 8.5 mg/dL 8.6-10.6 L T PROTEIN (test code = 6206731878) 6.0 g/dL 6.3-8.2 L ALBUMIN (test code = 9783528522) 3.2 g/dL 3.5-5.0 L ALK PHOS (test code = 2172833913) 82 U/L 34-122 ALTv (test code = 1742-6) 28 U/L 5-50 AST(SGOT) (test code = 6191738382) 71 U/L 13-40 H eGFR (test code = 4346253546) 115.0 mL/min/1.73m2 STEPHANIE (test code = STEPHANIE) [...] imaging tests). Lab Interpretation (test code = 17934-8) [facility]normal [facility] 17:47:53* Test Item Value Reference Range Interpretation Comme nts LIPASE (test code = 6941638851) 124 U/L 0-220 Lab Interpretation (test cod e = 35829-1) Normal [facility] WITH [id number] 17:34:30* Test Item Value Reference Range Interpretation Comme nts WBC (test code = 6690-2) 8.77 See_Comment [Automated IES] The system which generated this result transmitted reference range: 4.20 - 10.70 10*3/?L. The reference range was not used to interpret this result as normal/abnormal. RBC (test code = 789-8) 4.06 See_Comment L [Automated IES] The system which generated this result transmitted [...] 34.1 g/dL 31.2-35.0 RDW-SD (test code = 47744-6) 42.5 fL 38.5-51.6 RDW-CV (test code = 788-0) 12.8 % 12.1-15.4 PLT (test code = 777-3) 297 See_Comment [Automated messa ge] The system which generated this result transmitted reference range: 150 - 328 10*3/?L. The reference range was not used to interpret this result as normal/abnormal. MPV (test code = 38522-0) 8.1 fL 9.8-13.0 L NRBC/100 WBC (test code = 4544161305) 0.0 See_Comment [Automated Xi3 ssage] The system which generated this result transmitted reference range: 0.0 - 10.0 /100 WBCs. The reference range was not used to interpret this result as normal/abnormal. NRBC x10^3 (test code = 1864079438) See_Comment [Automated messa ge] The system which generated this result transmitted reference range: 10*3/?L. The reference range was not used to interpret this result as normal/abnormal. GRAN MAT (NEUT) % (test code = 770-8) 81.2 % IMM GRAN % (test code = 4615659788) 0.20 % LYMPH % (test code = 736-9) 9.5 % MONO % (test code = 5905-5) 7.8 % EOS % (test code = 713-8) 1.0 % BASO % (test code = 706-2) 0.3 % GRAN MAT x10^3(ANC) (test code = 6739666589) 7.12 10*3/uL 1.99-6.95 H IMM GRAN x10^3 (test code = 3292674448) 0.00-0.06 LYMPH x10^3 (test code = 731-0) 0.83 10*3/uL 1.09-3.23 L MONO x10^3 (test code = 742-7) 0.68 10*3/uL 0.36-1.02 EOS x10^3 (test code = 711-2) 0.09 10*3/uL 0.06-0.53 BASO x10^3 (test code = 704-7) 0.03 10*3/uL 0.01-0.09 Lab Interpretation (test code = 18272-8) [facility]normal [facility] (85378)2022-05-27 00:29:45* Test Item Value Reference Range Interpretation Comme nts NA (test code = 5887709379) 132 mmol/L 135-145 L K (test code = 5880719610) 4.4 mmol/L 3.5-5.0 CL (test code = 3351086813) 101 mmol/L 98-108 CO2 TOTAL (test code = 1531162867) 23 mmol/L 23-31 AGAP (test code = 1551477240) 8 2-16 BUN (test code = 4354643004) 25 mg/dL 7-23 H GLUCOSE (test code = 0846805541) 173 mg/dL 70-110 H CREATININE (test code = 1949005615) 0.71 mg/dL 0.60-1.25 TOTAL BILI (test code = 2272195514) 0.8 mg/dL 0.1-1.1 CALCIUM (test code = 0693794630) 8.7 mg/dL 8.6-10.6 T PROTEIN (test code = 7750731665) 6.4 g/dL 6.3-8.2 ALBUMIN (test code = 6934767531) 3.7 g/dL 3.5-5.0 ALK PHOS (test code = 6898458877) 79 U/L 34-122 ALTv (test code = 1742-6) 26 U/L 5-50 AST(SGOT) (test code = 1220869094) 36 U/L 13-40 eGFR (test code = 9191371868) 107.6 mL/min/1.73m2 STEPHANIE (test code = STEPHANIE) [...] imaging tests). Lab Interpretation (test code = 39786-4) Abnormal [facility] WITH [id number] 23:12:37* Test Item Value Reference Range Interpretation [...] 34.0 g/dL 31.2-35.0 RDW-SD (test code = 97332-1) 46.2 fL 38.5-51.6 RDW-CV (test code = 788-0) 13.5 % 12.1-15.4 PLT (test code = 777-3) 263 See_Comment [Automated message] The system which generated this result transmitted reference range: 150 - 328 10*3/?L. The reference range was not used to interpret this result as normal/abnormal. MPV (test code = 09195-2) 8.4 fL 9.8-13.0 L NRBC/100 WBC (test code = 1551032698) 0.0 See_Comment [Automated message] The system which generated this result transmitted reference range: 0.0 - 10.0 /100 WBCs. The reference range was not used to interpret this result as normal/abnormal. NRBC x10^3 (test code = 4607332237) See_Comment [Automated message] The system which generated this result transmitted reference range: 10*3/?L. The reference range was not used to interpret this result as normal/abnormal. GRAN MAT (NEUT) % (test code = 770-8) 89.4 % IMM GRAN % (test code = 5673564763) 0.30 % LYMPH % (test code = 736-9) 2.5 % MONO % (test code = 5905-5) 7.6 % EOS % (test code = 713-8) 0.0 % BASO % (test code = 706-2) 0.2 % GRAN MAT x10^3(ANC) (test code = 3957687156) 10.17 10*3/uL 1.99-6.95 H IMM GRAN x10^3 (test code = 8150781497) 0.03 10*3/uL 0.00-0.06 LYMPH x10^3 (test code = 731-0) 0.29 10*3/uL 1.09-3.23 L MONO x10^3 (test code = 742-7) 0.87 10*3/uL 0.36-1.02 EOS x10^3 (test code = 711-2) 0.06-0.53 L BASO x10^3 (test code = 704-7) 0.01-0.09 Lab Interpretation (test code = 72751-3) [facility]normal [facility] (68822)2022-05-03 01:11:07* Test Item Value Reference Range Interpretation Comme nts NA (test code = 7948698424) 134 mmol/L 135-145 L K (test code = 6478228705) 4.5 mmol/L 3.5-5.0 CL (test code = 4686604691) 103 mmol/L 98-108 CO2 TOTAL (test code = 1659726432) 22 mmol/L 23-31 L AGAP (test code = 2237966000) 9 2-16 BUN (test code = 9722213290) 24 mg/dL 7-23 H GLUCOSE (test code = 2086048289) 119 mg/dL 70-110 H CREATININE (test code = 6113438812) 0.79 mg/dL 0.60-1.25 TOTAL BILI (test code = 3641434031) 0.8 mg/dL 0.1-1.1 CALCIUM (test code = 4474282088) 8.5 mg/dL 8.6-10.6 L T PROTEIN (test code = 7499907854) 6.3 g/dL 6.3-8.2 ALBUMIN (test code = 0392318055) 3.6 g/dL 3.5-5.0 ALK PHOS (test code = 5196646498) 57 U/L 34-122 ALTv (test code = 1742-6) 30 U/L 5-50 AST(SGOT) (test code = 8998821983) 55 U/L 13-40 H eGFR (test code = 6125895304) 95.1 mL/min/1.73m2 STEPHANIE (test code = STEPHANIE) [...] imaging tests). Lab Interpretation (test code = 11295-8) Abnormal [facility] WITH [id number] 00:53:44* Test Item Value Reference Range Interpretation Comme nts WBC (test code = 6690-2) 7.18 See_Comment [Automated IES] The system which generated this result transmitted reference range: 4.20 - 10.70 10*3/?L. The reference range was not used to interpret this result as normal/abnormal. RBC (test code = 789-8) 4.24 See_Comment L [Automated IES] The system which generated this result transmitted [...] 33.8 g/dL 31.2-35.0 RDW-SD (test code = 22417-1) 45.6 fL 38.5-51.6 RDW-CV (test code = 788-0) 13.3 % 12.1-15.4 PLT (test code = 777-3) 192 See_Comment [Automated messa ge] The system which generated this result transmitted reference range: 150 - 328 10*3/?L. The reference range was not used to interpret this result as normal/abnormal. MPV (test code = 21886-1) 8.4 fL 9.8-13.0 L NRBC/100 WBC (test code = 6465277792) 0.0 See_Comment [Automated me ssage] The system which generated this result transmitted reference range: 0.0 - 10.0 /100 WBCs. The reference range was not used to interpret this result as normal/abnormal. NRBC x10^3 (test code = 3445021026) See_Comment [Automated messa ge] The system which generated this result transmitted reference range: 10*3/?L. The reference range was not used to interpret this result as normal/abnormal. GRAN MAT (NEUT) % (test code = 770-8) 72.6 % IMM GRAN % (test code = 3040784276) 0.30 % LYMPH % (test code = 736-9) 12.8 % MONO % (test code = 5905-5) 12.5 % EOS % (test code = 713-8) 1.4 % BASO % (test code = 706-2) 0.4 % GRAN MAT x10^3(ANC) (test code = 9360867285) 5.21 10*3/uL 1.99-6.95 IMM GRAN x10^3 (test code = 4569859981) 0.00-0.06 LYMPH x10^3 (test code = 731-0) 0.92 10*3/uL 1.09-3.23 L MONO x10^3 (test code = 742-7) 0.90 10*3/uL 0.36-1.02 EOS x10^3 (test code = 711-2) 0.10 10*3/uL 0.06-0.53 BASO x10^3 (test code = 704-7) 0.03 10*3/uL 0.01-0.09 Lab Interpretation (test code = 31720-3) Abnormal [facility] Consult Notes Date/Time Note Provider Source 2022-10-30 10:31:00 Associated Order(s): CONSULT PHYSICAL THERAPY WOUND CARE Pt agreeable to PT for wound care. Patient met supine. PHYSICAL THERAPY WOUND CARE EVALUATION Consult received, chart reviewed and evaluation complete this [...] one paper chux pad (no cloth chux pad) Supplies needed: NS, Santyl, gauze and Mepilex heel foam Recommended Dressings Application/Instructions: -applied Santyl to right lateral ankle wound -gently covered with 1 2x2 gauze moistened with Normal saline (cut to conform to wound bed) -secured with mepilex heel foam dressing -offload bilateral heels with prevalon boots Wound Description: patient presents with chronic right ankle wound. pressure ulcer, stage III Location Size (cm) length=longest Drainage amount and type Necrotic tissue Granulation tissue Odor Periwound right lateral ankle 2.5 x 2.0 cm minimal and clear 75% slough yellow 25% [place] or dull dusky red No normal for ethnic group Right medial ankle 0.5 x 0.5 None None (deep tissue injury) NA No normal for ethnic group Treatment Provided: Wound gently cleaned with NS moistened gauze dressings applied as follows: Santyl at nickel thickness, [...] twice a day, per patient's tolerance and needs. See below for complete details. Admit Date: 10/27/2022 Hospital Diagnosis:Fever in adult [R50.9] PT Diagnosis: Integument compromise and Non-healing wound Weight Bearing Precaution: NA General Precautions: General, Fall, Bracing/Cast present or required:N/A PMH: Past Medical History: Diagnosis Date Arrhythmia Cataract Dementia Esophageal reflux Hyperlipidemia PSH: Past Surgical History: Procedure Laterality Date ADJACENT TISSUE REARRANGEMENT N/A 02/23/2018 Surgeon: Easton Talavera MD; Location: [facility] OR Location BASAL CELL CARCINOMA EXCISION N/A 02/23/2018 Surgeon: Easton Talavera MD; Location: [facility] OR Location LACERATION REPAIR (SHX) on back PHACOEMULSIFICATION OF CATARACT WITH INTRAOCULAR LENS IMPLANT Right 08/16/2015 Surgeon: Rafael Grant MD; Location: [facility] OR Location PHACOEMULSIFICATION OF CATARACT WITH INTRAOCULAR LENS IMPLANT Left 09/13/2015 Surgeon: Rafael Grant MD; Location: [facility] OR [facility] Nutritional status: HGB Date Value Ref Range Status 10/30/2022 11.3 (L) 12.2 - 16.4 g/dL Final ALBUMIN Date Value Ref Range Status 10/27/2022 3.6 3.5 - 5.0 g/dL Final HGB A1C Date Value Ref Range Status 10/27/2022 5.4 4.0 - 5.7 % Final Prior Living Situation: lives with their spouse Prior level of Mobility: uses w/c primarily Subjective: Patient spouse at bedside, reports they have been doctoring wounds for ~ one year and patient was schedule Patient/Family Goals: wound healing Patient/Family verbalizes understanding of condition: Yes PAIN: -Pain Description: unable to describe, grimacing and withdrawal with wound cleansing -Pain Location: right ankle -Pain rating before treatment: does not rate, After treatment: does not rate -Pain Management: Repositioning Provided and no signs of distress at endo of treatment session COMMUNICATION Primary Language: Argentine Able to Verbalize needs: Yes Vision:WFL Hearing:WFL ORIENTATION/COGNITION: Oriented to: NT Follows Commands: Yes NEUROLOGICAL Light Touch: within functional limits bilateral Tone: WNL RANGE OF MOTION: bilateral LE, within functional limits PROBLEM LIST: Pain, Integument compromise, Non-healing wound, and Impaired functional mobility ASSESSMENT: Patient is a 77 year old male [...] Promote granulation tissue to 100% of wound bed. 2. Control bioburden and infection. 3. Control drainage of wound via use of dressings to prevent maceration and infection. PATIENT EDUCATION: Patient and Significant other provided with preferred teaching of verbal information and demonstration on role of PT, plan of care, treatment benefits, dressing selections and signs/symptoms of infection. Barriers to learning include cognitive limitations and other. Verbal instruction and Demonstration teaching provided. Individual and needs reinforcement of teaching. Yvonne Harvey PT, DPT Pager Number: [phone] Total time treatments: 0 min Total treatment time: 34 min Yvonne Harvey PT [facility] 2022-10-29 18:20:03 Associated Order(s): CONSULT PS PASTORAL CARE Encounter: The poacher wringer operator provided the patient and family with a Healing Prayer. The poacher wringer operator will be available to provide support whenever the patient has a need. Dock Boss Nusrat Titus MDIV, [facility] Office: [phone] Nusrat Titus [facility] 2022-10-28 09:11:45 Associated Order(s): CONSULT SPEECH Speech-Language Pathology Clinical Swallow Evaluation 10/28/2022 Chauncey Massey : 1945 Age/Sex: 77 year old male Time IN/OUT: Referring Physician: Chaz Roberts MD Date of Referral: 10/28/2022 Reason for Referral: dysphagia Date of Admission/Onset: 10/28/2022 SUBJECTIVE: Patient awake, but eyes close throughout assessment. RN reports that patient is not following commands and was aggressive earlier. Patient not responding to SALES ASSOCIATE, unable to follow commands. However, he was able to accept bolus when SALES ASSOCIATE told him "here's a spoon" or "here's a straw". OBJECTIVE: is being seen for a clinical swallow evaluation. Chauncey Massey is a 77 year old male admitted for pneumonia with PMH significant for GERD, hiatal hernia, Alzheimer's dementia, arrhythmia, HLD. Pertinent Imaging: XR CHEST 1 VW Result Date: 10/28/2022 Impression: Mild cardiomegaly. Moderate hiatal hernia. Focal opacity at the right lung base, concerning for pneumonia in the setting of fever. Follow-up is recommended to ensure resolution. END REPORT RL: 460 AFC: [id number] Previous SALES ASSOCIATE Services/Swallow History: Patient was seen 07/25/2022 for [...] N/A 02/23/2018 Surgeon: Easton Talavera MD; Location: [facility] [place] BASAL CELL CARCINOMA EXCISION N/A 02/23/2018 Surgeon: Easton Talavera MD; [facility] [place] LACERATION REPAIR (SHX) on back PHACOEMULSIFICATION OF CATARACT WITH INTRAOCULAR LENS IMPLANT Right 08/16/2015 Surgeon: Rafael Grant MD; Location: [facility] [place] PHACOEMULSIFICATION OF CATARACT WITH INTRAOCULAR LENS IMPLANT Left 09/13/2015 Surgeon: Rafael Grant MD; Location: [facility] OR [facility] General Behavior: Agitated, Decreased ability to follow directions, and Drowsy Hearing: Seems hard of hearing Respiratory Status: room air Orientation/Cognition: - Patient oriented to: oriented x0 - Response type: N/A - Follows 1-step commands: No Current Diet Texture/Means of Nutrition: regular (IDDSI level 7)-textured diet with thin liquids (IDDSI level 0) Oral Motor Exam Dentition and Oral Cavity: dentate, natural dentition, and moist oral mucosa Face symmetrical Jaw symmetrical Lips symmetrical at rest Tongue unable to/did not assess Palate unable to assess/did not assess Vocal Quality clear Speech clear/intelligible CLINICAL SWALLOW EVALUATION Swallows on command: No Handles Secretions: Yes Volitional Cough: does not follow commands/unable to test Spontaneous Cough: No PO trials were administered by SALES ASSOCIATE. Patient was provided with multiple bites/sips of [...] verbally. Discussed findings of evaluation, recommendations and SALES ASSOCIATE plan of care. RN and referring provider notified of findings and recommendations. Patient/Family goal: safe PO intake ASSESSMENT/IMPRESSIONS: Chauncey Massey appears to present with safe, [...] close monitoring and oral care as able. SALES ASSOCIATE will f/u for at least one additional session to ensure diet tolerance. Prognosis is favorable for safe po intake with adherence to swallow precautions and close monitoring due to above findings. RECOMMENDATIONS/GOALS: 1. Recommend patient continue a regular (IDDSI level 7)-textured diet with thin liquids (IDDSI level 0) and swallow precautions: 1:1 supervision/assist for PO intake, sit fully upright/in chair, small single bites/sips, ok to use straws, remain upright after PO intake, and crush meds and mix in puree if OK with MD 2. Recommend SALES ASSOCIATE therapy 2-5x/wk for 15-45 min/session while in-house to address the following goals: Swallowing: - Patient will tolerate the safest, least restricted po diet texture without overt s/sx of aspiration or other negative effects on medical condition 3. Recommend elevated head of bed and frequent, thorough oral hygiene care due to possible risk for aspiration. Catrachita Sanchez MS, [facility]-SALES ASSOCIATE Speech-Language Pathologist [email or web address] SALES ASSOCIATE coverage provided at multiple locations, please use the following numbers based on patient's location to contact this SALES ASSOCIATE: [place] Speech: [phone] (rehab department) [place] Speech: [phone] (main office) [place] Speech: [phone] ([place] office) If unable to reach SALES ASSOCIATE at these numbers, please text [phone] Catrachita Sanchez SALES ASSOCIATE [facility] - Health History and Physical Notes Date/Time Note Provider Source 2022-11-29 20:39:11 Formatting of this n ote is different from the original. MEDICINE MEGADC ADMIT H&P Date of Service: 11/29/2022 CHIEF COMPLAINT: right foot redness History of Present Illness 77 yr old male patient with GERD, hiatal hernia, dyslipidemia, dementia, and acute cystitis who presents to the ED secondary to bilateral foot redness that started yesterday. No sweepage from the leg. Also has been constipated for a week despite use of colace and miralax. PAST MEDICAL HISTORY Past Medical History: Diagnosis Date Arrhythmia Cataract Dementia Esophageal reflux Hyperlipidemia Past Surgical History: Procedure Laterality Date ADJACENT TISSUE REARRANGEMENT N/A 02/23/2018 Surgeon: Easton Talavera MD; Location: [facility] BASAL CELL CARCINOMA EXCISION N/A 02/23/2018 Surgeon: Easton Talavera MD; Location: [facility] LACERATION REPAIR (SHX) on back PHACOEMULSIFICATION OF CATARACT WITH INTRAOCULAR LENS IMPLANT Right 08/16/2015 Surgeon: Rafael Grant MD; Location: [facility] OR Location PHACOEMULSIFICATION OF CATARACT WITH INTRAOCULAR LENS IMPLANT Left 09/13/2015 Surgeon: Rafael Grant MD; Location: [facility] Family History Family history unknown: Yes ALLERGIES Allergies Allergen Reactions Bactrim [Sulfamethoxazole-Trimethoprim] Unknown - See comments Patients reports the patient is unable to walk when taking medication MEDICATIONS No current facility-administered medications on file prior to [...] and complete to the best of my knowledge. SOCIAL HISTORY Social History Socioeconomic History Marital status: Spouse name: [...] rash. Neurological: Negative. Psychiatric/Behavioral: Negative. Endocrine: Endocrine negative PHYSICAL EXAMINATION Vitals: 11/29/22 1744 11/29/22 1900 11/29/22 1956 11/29/222025 BP: 135/61 120/82 131/52 (!) 140/72 Pulse: 91 77 80 Resp: 16 20 Temp: 36.8 ?C (98.3 ?F) 36.8 ?C (98.3 ?F) TempSrc: Axillary SpO2: 97% 100% Weight: 95.3 kg (210 lb) 78 kg (171 lb 14.4 oz) Height: 1.753 m (5' 9") Physical Exam Vitals and nursing note reviewed. Constitutional: General: He [...] alert. LABS - reviewed pertinent labs as below: Reviewed IMAGING - reviewed, pertinent results as below: ORDERING PHYSICIAN: OLMAN PEREZ CLINICAL HISTORY: Abdominal pain, acute COMPARISON: 06/10/2022 [...] Moderate hiatal hernia, stable ORDERING PHYSICIAN: OLMAN PEREZ HISTORY: cough TECHNIQUE: Chest radiograph(s), 1 view. COMPARISON: None. FINDINGS: Single portable view of the chest was acquired. The cardiomediastinal silhouette is within normal limits given portable technique. There is no acute pulmonary consolidation, pleural effusion, or pneumothorax. No acute chest wall abnormality is radiographically evident. IMPRESSION 1. No evidence of acute cardiopulmonary process. ORDERING PROVIDER: JUNO VERDIN CLINICAL INFORMATION: Abdominal pain. COMPARISON STUDY: 11/26/2022 FINDINGS: Supine view of the abdomen demonstrates a normal bowel gas pattern. There is no free air. There are no abnormal calcifications. There is scoliosis and degenerative spondylosis of the spine. IMPRESSION Unremarkable single view abdomen ORDERING PHYSICIAN: JNUO VERDIN HISTORY: evaluate for any evidence of osteomyelitis. TECHNIQUE: Right ankle x-ray, 4 view(s) COMPARISON EXAMINATIONS: none available FINDINGS: The bones demonstrate no evidence for acute fracture or dislocation. Soft tissue swelling is noted in the region of the ankle, more prominent laterally and anteriorly. Atherosclerotic vascular calcifications are noted. No evidence for radiopaque foreign body. Joint spaces appear preserved. No evidence for periosteal reaction or focal cortical lysis. IMPRESSION 1. Soft tissue swelling. 2. If osteomyelitis is of clinical concern, recommend MRI. ASSESSMENT/PLAN Chauncey Massey is a 77 year old male with PMH as listed above, admitted to the hospital with: Cellulitis/right ankle pressure ulcer: -- Will continue with antibiotics -- Wound consult -- Pain control. -- Ultrasound is pending to rule out DVT. 2. Constipation: has fried miralax, docusate,and lactulose -- Will try mineral enema GERD: -- Will resume Prilosec HLD: -- Will resume simvastatin Prophylaxis: DVT- enoxaparin Code Status: addressed: DNR Estimated LOS: This inpatient admission will likely require greater than or equal to 2 Midnights. Management is not feasible as an outpatient and there is concern for adverse outcomes if not managed in an inpatient setting. Advance care planning discussed for 17 mins with patient's wirfe at bedside. Surrogate decision maker: Luis Felipe Massey (spouse) - [facility] People and Pages 2022-10-28 06:35:38 Formatting of this n ote is different from the original. MEDICINE CLS ADMIT H&P PCP: Dougie Giles Date of Service: 10/28/2022 CHIEF COMPLAINT: Pneumonia HISTORY OF PRESENT ILLNESS A 77 yr old male patient with GERD, [...] other concerns. Hx is limited due to dementia. PAST MEDICAL HISTORY Past Medical History: Diagnosis Date Arrhythmia Cataract Dementia Esophageal reflux Hyperlipidemia Past Surgical History: Procedure Laterality Date ADJACENT TISSUE REARRANGEMENT N/A 02/23/2018 Surgeon: Easton Talavera MD; Location: [facility] OR Location BASAL CELL CARCINOMA EXCISION N/A 02/23/2018 Surgeon: Easton Talavera MD; Location: [facility] OR Location LACERATION REPAIR (SHX) on back PHACOEMULSIFICATION OF CATARACT WITH INTRAOCULAR LENS IMPLANT Right 08/16/2015 Surgeon: Rafael Grant MD; Location: [facility] OR Location PHACOEMULSIFICATION OF CATARACT WITH INTRAOCULAR LENS IMPLANT Left 09/13/2015 Surgeon: Rafael Grant MD; Location: [facility] Family Hx: NA ALLERGIES Allergies Allergen Reactions Bactrim [Sulfamethoxazole-Trimethoprim] Unknown - See comments Patients reports the patient is unable to walk when taking medication MEDICATIONS: current medications were obtained updated, and reviewed in the medical record. No current facility-administered medications on file prior to [...] Take 2 tablets by mouth daily. SOCIAL HISTORY Social History Socioeconomic History Marital status: Tobacco Use [...] in the Last Year: No REVIEW OF SYSTEMS (-)=Negative,(+)=Positive dementia PHYSICAL EXAMINATION Vitals: 10/28/22 0442 10/28/22 0500 10/28/22 0620 10/28/22 0630 BP: 92/63 95/64 116/73 Pulse: 84 78 84 81 Resp: Temp: 37.4 ?C (99.3 ?F) 37.3 ?C [...] data in the 24 hours ending 10/28/22 0635 V/S were reviewed. On RA General: alert and not oriented; no apparent distress HEENT: normocephalic atraumatic, pupils equal, round, reactive to light Neck: supple. No thyromegaly, no lymphadenopathy, no JVD Lungs: good air entry bilaterally. Clear to auscultation bilaterally. No crackles or wheezes. Cough is strong and effective Cardio: NL S1/S2. Regular rate and rhythm. No murmurs or gallops Abdomen: soft; non-tender; non-distended; normoactive bowel sounds. Extremities: symmetrical. Trace edema Skin: no rashes. Bed sores (stage 2) to left hip and right ankle. See photos Neuro: cranial nerves grossly intact; sensation grossly intact; muscle strength grossly normal in all four extremities LABS - reviewed pertinent labs as below: CMP NA (mmol/L) Date Value 10/27/2022 133 (L) 07/25/2022 [...] 07/18/2022 82 06/10/2022 82 05/26/2022 79 CBC withoutdiff WBC (10*3/?L) Date Value 10/27/2022 12.67 (H) 07/25/2022 [...] 239 IMAGING - reviewed, pertinent results as below: XR CHEST 1 VW Result Date: 10/28/2022 Impression: Mild cardiomegaly. Moderate hiatal hernia. Focal opacity at the right lung base, concerning for pneumonia in the setting of fever. Follow-up is recommended to ensure resolution. END REPORT RL: 460 AFC: [id number] SSMENT/PLAN Chauncey Massey is a 77 year old male with PMH as listed above, admitted to the hospital with: Active Problems: RLL PNA (CAP) Mild hypoNa GERD/hiatal hernia Dyslipidemia Dementia PLAN: Admit to the Tele Rocephin and Zithromax for 5 days Duoneb PEP therapy Wound care Monitor Na Urine Ag DVT prophylaxis O2 to keep SpO2 > 92% ST eval Current medications were obtained updated, and reviewed in the medical record. Most recent hemoglobin A1c level: NA Advance Care Planning discussed and documented; advance care plan or surrogate decision maker documented in the medical record: full code, Pain Assessment Documented as Negative, No Follow-Up Plan Required. Chaz Rosales MD, FCCP, [facility]
[2024-03-15] MEDS ORDERED: FLEET ENEMA ADULT PR ONE (15:21)
[2024-03-15 16:09] LABS: Absolute Eosinophils 0.2 K/uL (0-0.5); Absolute Lymphocytes (CBC) 0.9 K/uL (0.7-4.9); Absolute Monocytes 0.5 K/uL (0.1-1.3); Absolute Neutrophil 3.5 K/uL (1.8-8.0); Basophils % 0.6 % (0-1.3); Hematocrit 37.2 % (39.6-49.0); Hemoglobin 12.3 g/dL (13.6-17.9); Lymphocytes % 17.7 % (15.3-44.8); MCH 28.5 pg (27.0-35.0); MCHC 33.1 g/dL (32.0-36.0); MCV 86.3 fL (80-100); MPV 6.3 fL (7.6-11.3); Monocytes % 9.6 % (3.3-12.3); Neutrophils % 68.1 % (41.7-73.7); Nucleated Red Blood Cells % 0.2 % (0-0); Platelets 296 thou/uL (152-406); RBC Red Blood Cell Count 4.31 M/uL (4.33-5.43); Red Cell Distribution Width 15.3 % (12.1-15.2)
[2024-03-15 16:25] LABS: Albumin 2.7 g/dL (3.4-5.0); Albumin/Globulin Ratio 0.6 (1.1-1.8); Anion Gap 7.1 mEq/L (5.0-15.0); Bilirubin Total 0.2 mg/dL (0.2-1.0); Globulin 4.2 g/dL (2.3-3.5); Potassium 4.1 mEq/L (3.5-5.1); Protein, Total 6.9 g/dL (6.4-8.2); Troponin High Sensitivity 5.4 pg/mL (<58.9)
--- NOTE | 2024-03-15 17:00 | RAD REPORT ---
EXAM:Abdomen Acute Series HISTORY: CONSTIPATION COMPARISON: None FINDINGS/IMPRESSION: Lungs are mildly emphysematous but clear. Probable hiatal hernia. No subdiaphragmatic free air. There is a large amount of stool in the colon. Significant distention of the bowel is present. The findings suggests significant fecal impaction.
--- NOTE | 2024-03-15 17:02 | EDPHYS ---
Physician Documentation [facility] Name: Chauncey Dunn Age: 79 yrs Sex: Male : 1945 Arrival Date: 03/15/2024 Time: 14:45 Bed 24 Private MD: ED Physician Eneida Echevarria HPI: 03/15 15:30 This 79 yrs old Male presents to ER via Stretcher with complaints of Constipation. sp3 15:30 79-year-old male with history of automaticity, glaucoma, hypertension who is also seen sp3 over at the [facility] presents referred by Dr. Katz for possible bowel obstruction versus fecal impaction. Patient has not had a bowel movement in 7 days despite p.o. laxatives including magnesium citrate and lactulose. ROS, history and physical limited secondary to patient being nonverbal. All history from .. Historical: - Allergies: 14:49 Bactrim; jl7 - PMHx: 14:49 Alzheimer's disease; Glaucoma; Hypertensive disorder; jl7 - PSHx: 14:49 back; cataract; jl7 - Immunization history:: Adult Immunizations unknown. - Infectious Disease History:: Denies. - Social history:: Smoking status: unknown. ROS: 15:31 Unable to obtain ROS due to baseline dementia, sp3 Exam: 15:32 Constitutional: This is a well developed, well nourished patient who is awake, alert, sp3 and in no acute distress. Chest/axilla: Normal chest wall appearance and motion. Nontender with no deformity. No lesions are appreciated. Cardiovascular: Regular rate and rhythm with a normal S1 and S2. No gallops, murmurs, or rubs. Normal PMI, no JVD. No pulse deficits. Respiratory: Lungs have equal breath sounds bilaterally, clear to auscultation and percussion. No rales, rhonchi or wheezes noted. No increased work of breathing, no retractions or nasal flaring. 15:32 Abdomen/GI: Mildly distended abdomen without grimace on palpation., 15:56 ECG was reviewed by the Attending Physician. EKG demonstrates normal sinus rhythm at 76 sp3 bpm with normal intervals, normal QRS, normal axis, normal ST/T-segment's without evidence of acute ischemia. Vital Signs: 14:47 BP 105 / 65; Pulse 78; Resp 15; Temp 97.9; Pulse Ox 100% ; jl7 16:01 BP 106 / 66; Pulse 74; Resp 15; Pulse Ox 100% ; jl7 19:22 BP 122 / 87; Pulse 84; Resp 16; Pulse Ox 100% on R/A; jb4 20:41 BP 147 / 91; Pulse 81; Resp 16; Pulse Ox 100% on R/A; jb4 MDM: 14:49 Medical Screening Exam initiated sp3 15:32 Data reviewed: vital signs, nurses notes, lab test result(s), radiologic studies. ED sp3 course: 79-year-old male with PMH above now with constipation. Differential diagnosis includes constipation, SBO, ileus, other intra-abdominal process, among others. Initial workup will include x-rays of the abdomen and obstruction series, labs and general supportive care. Enema also ordered. Probable admission given conversation with Dr. Katz.. 17:00 ED course: X-rays demonstrate extensive stool, impaction and distended bowel. Will sp3 place under hospitalist care with surgical consultation. Vital signs are normal.. 03/15 15:05 Order name: CBC with Diff; Complete Time: 17:23 sp3 03/15 15:05 Order name: CMP; Complete Time: 17:23 sp3 03/15 15:05 Order name: Lipase; Complete Time: 17:23 sp3 03/15 15:05 Order name: Urinalysis w/ reflexes sp3 03/15 15:05 Order name: Lactate w/ 2H reflex if indic.; Complete Time: 17:23 sp3 03/15 15:05 Order name: Troponin High Sensitivity; Complete Time: 17:23 sp3 03/15 18:29 Order name: Urinalysis w/ reflexes EDMS 03/15 18:29 Order name: Basic Metabolic Panel EDMS 03/15 18:29 Order name: Basic Metabolic Panel EDMS 03/15 18:29 Order name: Basic Metabolic Panel EDMS 03/15 18:29 Order name: Basic Metabolic Panel EDMS 03/15 18:29 Order name: CBC with Automated Diff EDMS 03/15 18:29 Order name: CBC with Automated Diff EDMS 03/15 18:29 Order name: CBC with Automated Diff EDMS 03/15 18:29 Order name: Magnesium EDMS 03/15 18:29 Order name: Magnesium EDMS 03/15 18:29 Order name: Magnesium EDWA 03/15 18:29 Order name: Magnesium EDWA 03/15 14:53 Order name: Abdomen Acute Series XRAY; Complete Time: 17:23 sp3 03/15 16:09 Order name: CT Abd/Pelvis - IV Contrast Only; Complete Time: 17:23 sp3 03/15 18:30 Order name: Abdomen 1 View (KUB) EDWA 03/15 18:30 Order name: Abdomen 1 View (KUB) EDWA 03/15 18:29 Order name: CONS Physician Consult EDWA 03/15 15:05 Order name: IV Saline Lock; Complete Time: 16:00 sp3 03/15 15:05 Order name: Labs collected and sent; Complete Time: 16:00 sp3 03/15 15:05 Order name: EKG - Nurse/Tech; Complete Time: 15:22 sp3 Administered Medications: 16:01 Not Given (spouse refusedd): fleet [id number] ml DC once jl7 Disposition Summary: 03/15/24 17:02 Hospitalization Ordered Notes: Hospitalization Status: Inpatient Admission sp3 Provider: Tasia Potts sp3 Location: Telemetry/MedSurg (Inpatient) sp3 Condition: Stable sp3 Problem: an acute exacerbation sp3 Symptoms: have worsened sp3 Bed/Room Type: Standard sp3 Room Assignment: 203(03/15/24 18:55) bd Diagnosis - Abdominal pain, constipation, SBO sp3 Forms: - Medication Reconciliation Form sp3 - SBAR form sp3 - Leadership Thank You Letter sp3 Signatures: Dispatcher [employer] EDMS Molly Chacon Jahala, RN RN jl7 Eneida Echevarria MD MD sp3 Corrections: (The following items were deleted from the chart) 14:53 14:53 Abdomen Acute Series+RAD.RAD.BRZ ordered. EDMS EDMS 15:06 15:06 CBC+H.LAB.BRZ ordered. EDMS EDMS 15:06 15:06 COMPREHENSIVE METABOLIC PANEL+C.LAB.BRZ ordered. EDMS EDMS 15:06 15:06 LIPASE+C.LAB.BRZ ordered. EDMS EDMS 15:06 15:06 Urinalysis+U.LAB.BRZ ordered. EDMS EDMS 15:06 15:06 LACTATE+C.LAB.BRZ ordered. EDMS EDMS 15:06 15:06 Troponin High Sensitivity+C.LAB.BRZ ordered. EDMS EDMS 18:55 17:02 sp3 bd
--- NOTE | 2024-03-15 17:02 | ER ---
Nurse's Notes [facility] Name: Chauncey Dunn Age: 79 yrs Sex: Male : 1945 Arrival Date: 03/15/2024 Time: 14:45 Bed 24 Private MD: Diagnosis: Abdominal pain, constipation, SBO Presentation: 03/15 14:47 Chief complaint: Spouse and/or significant other states: Sent by doctor for possible jl7 impaction, last BM about 2 weeks ago. Coronavirus screen: At this time, the client does not indicate any symptoms associated with coronavirus-19. Ebola Screen: No symptoms or risks identified at this time. Initial Sepsis Screen: Does the patient meet any 2 criteria? No. Patient's initial sepsis screen is negative. Does the patient have a suspected source of infection? No. Patient's initial sepsis screen is negative. Risk Assessment: Do you want to hurt yourself or someone else? Other: unable to obtain due to severe dementia. Onset of symptoms is unknown. 14:47 Method Of Arrival: Stretcher [facility] 14:47 Acuity: ANNEMARIE 3 jl7 Triage Assessment: 14:49 General: Appears in no apparent distress. uncomfortable, Behavior is uncooperative. jl7 Pain: Complains of pain in unable to obtain. Neuro: Level of Consciousness is awake, alert, Oriented to none baseline. Cardiovascular: No deficits noted. Respiratory: No deficits noted. GI: Abdomen is round distended. Derm: Skin is pink, warm \T\ dry. Historical: - Allergies: 14:49 Bactrim; jl7 - PMHx: 14:49 Alzheimer's disease; Glaucoma; Hypertensive disorder; jl7 - PSHx: 14:49 back; cataract; jl7 - Immunization history:: Adult Immunizations unknown. - Infectious Disease History:: Denies. - Social history:: Smoking status: unknown. Screenin:01 [facility] ED Fall Risk Assessment (Adult) History of falling in the last 3 months, jl7 including since admission No falls in past 3 months (0 pts) Confusion or Disorientation Yes (5 pts) Intoxicated or Sedated No (0 pts) Impaired Gait Yes (1 pt) Mobility Assist Device Used No (0 pt) Altered Elimination Yes (1 pt) Score/Fall Risk Level 3 or more points = High Risk Oriented to surroundings, Maintained a safe environment, Hourly rounding (assess needs \T\ fall precautionary measures) done, Utilized family, sitter, or virtual music ministries director as indicated. Abuse screen: Denies threats or abuse. Denies injuries from another. Nutritional screening: No deficits noted. Tuberculosis screening: No symptoms or risk factors identified. Assessment: 16:03 Reassessment: Spouse reports fleet enema will not work, they have been trying them, ERD jl7 notfied. 16:32 Reassessment: Patient appears in no apparent distress at this time. Patient and/or jb4 family updated on plan of care and expected duration. Pain level reassessed. Pt repositioned in bed for Xray. Pt remains A\T\Ox0. 17:30 Reassessment: Patient appears in no apparent distress at this time. Patient and/or jb4 family updated on plan of care and expected duration. Pain level reassessed. PT remains A\T\Ox0, respirations are even and unlabored. 19:00 Reassessment: Patient appears in no apparent distress at this time. No changes from jb4 previously documented assessment. Patient and/or family updated on plan of care and expected duration. Pain level reassessed. 20:41 Reassessment: Patient appears in no apparent distress at this time. No changes from jb4 previously documented assessment. Patient and/or family updated on plan of care and expected duration. Pain level reassessed. Vital Signs: 14:47 BP 105 / 65; Pulse 78; Resp 15; Temp 97.9; Pulse Ox 100% ; jl7 16:01 BP 106 / 66; Pulse 74; Resp 15; Pulse Ox 100% ; jl7 19:22 BP 122 / 87; Pulse 84; Resp 16; Pulse Ox 100% on R/A; jb4 20:41 BP 147 / 91; Pulse 81; Resp 16; Pulse Ox 100% on R/A; jb4 ED Course: 14:47 Patient arrived in ED. jl7 14:49 Eneida Echevarria MD is Attending Physician. sp3 14:49 Triage completed. jl7 14:49 Arm band placed on right wrist. jl7 15:08 Jordyn Luo, REJI is Primary Nurse. jl7 16:01 Patient has correct armband on for positive identification. Bed in low position. Call jl7 light in reach. Side rails up X2. Adult w/ patient. Provided Education on: use of call cota. Pulse ox on. NIBP on. Warm blanket given. 16:01 Initial lab(s) drawn, by me, sent to lab. EKG done, by ED staff, reviewed by Eneida Echevarria MD. Inserted saline lock: 22 gauge in left wrist, using aseptic technique. Blood collected. Flushed with 10 mL NS. 16:53 Abdomen Acute Series XRAY In Process Unspecified. EDMS 17:00 CT Abd/Pelvis - IV Contrast Only In Process Unspecified. EDMS 17:01 Tasia Potts MD is Hospitalizing Provider. sp3 17:09 Primary Nurse role handed off by Jordyn Luo, REJI jl7 20:41 No provider procedures requiring assistance completed. Patient admitted, IV remains in jb4 place. Administered Medications: 16:01 Not Given (spouse refusedd): fleet ml NH once jl7 Medication: 16:01 VIS not applicable for this client. jl7 Outcome: 17:02 Decision to Hospitalize by Provider. sp3 20:41 Admitted to Med/surg accompanied by nurse, via stretcher, room 203, with chart, jb4 20:41 Condition: stable 20:41 Discharge instructions given to family, Instructed on the need for admit, Demonstrated understanding of instructions, 20:47 Patient left the ED. jb4 Signatures: Dispatcher [employer] Keven Blanchard, RN RN jb4 Jordyn Luo, RN RN jl7 Eneida Echevarria MD MD sp3
--- NOTE | 2024-03-15 17:14 | RAD REPORT ---
EXAMINATION: CT ABDOMEN AND PELVIS WITH CONTRAST CLINICAL INDICATION: CONSTIPATION TECHNIQUE: CT abdomen and pelvis was performed, after the administration of IV contrast, as per [facility] protocol. Axial, sagittal and coronal reconstructions were obtained. One or more of the following dose reduction techniques were used: Automated exposure control, adjustment of the mA and k V according to patient size, and iterative reconstruction. Unless otherwise specified, incidental findings do not require dedicated imaging follow-up. COMPARISON: No prior exam. FINDINGS: LOWER CHEST: The visualized lung bases are clear. Moderate hiatal hernia. LIVER: Normal in size and contour. No focal lesion. Grossly unremarkable gallbladder. SPLEEN: Normal size. No focal lesion. PANCREAS: No mass, ductal dilation, or kiesha-pancreatic fluid. ADRENALS: Normal; no mass. KIDNEYS: Normal size and contour. No hydronephrosis. GASTROINTESTINAL TRACT: Severe fecal retention throughout the colon. Diverticulosis coli noted in the sigmoid. APPENDIX: Appendix not visualized, but no inflammatory changes in region of appendix. LYMPH NODES: No lymphadenopathy. MUSCULOSKELETAL: No acute or suspicious osseous abnormality. ADDITIONAL FINDINGS: Moderate fat-containing umbilical hernia. IMPRESSION: Severe fecal retention throughout the colon. Moderate fat-containing umbilical hernia.
--- NOTE | 2024-03-15 18:23 | P.HP ---
Certification for Inpatient Patient admitted to: Inpatient With expected LOS: <2 Midnights <Hanna Sutherland - Last Filed: 03/15/24 21:36> Patient History Date of Service: 03/15/24 Reason for admission: Small bowel obstruction History of Present Illness: 79-year-old male with a past medical history Alzheimer's disease; Glaucoma; Hypertensive disorder presents to the emergency room from the [facility] for abdominal pain. HPI obtained by spouse/ED report. reports no bowel movement for the past 7 days. reports taking mag citrate, lactulose, without effect, patient is nonverbal, HPI limited ER evaluation X-rays demonstrate extensive stool, impaction and distended bowel. Vital signs are stable, plan to admit for small bowel obstruction, abdominal pain, constipation, please surgical consultation - Past Medical/Surgical History Diabetic: No -: paranoid schizophrenia -: carotid bruit -: glaucoma -: Alzheimer's dementia -: cataract sx -: back sx - Family History Father -: Cancer Mother -: Other (see notes) Notes: alziehmers - Social History Alcohol use: No CD- Drugs: No Caffeine use: No <Hanna Sutherland - Last Filed: 03/15/24 21:36> Date of Service: 03/15/24 <Tasia Potts - Last Filed: 03/21/24 18:10> Allergies sulfamethoxazole [From Bactrim] Allergy (Verified 09/08/23 19:59) Anaphylaxis trimethoprim [From Bactrim] Allergy (Verified 09/08/23 19:59) Anaphylaxis Home Medications: Brimonidine Tartrate [Lumify] 1 drop EACH EYE BID 09/08/23 Cholecalciferol (Vitamin D3) [Vitamin D3] 1 tab PO DAILY 09/08/23 Galantamine HBr [Galantamine ER] 8 mg PO BID 09/08/23 Guaifenesin [Cough Syrup] 10 ml PO Q4H PRN 09/08/23 Lactobacillus Acidophilus 1 cap PO DAILY 09/08/23 Lactulose 10 gm PO DAILY PRN 09/08/23 Latanoprost Ophth [Xalatan 0.005%*] 1 drop EACH EYE BEDTIME 09/08/23 Omeprazole 20 mg PO DAILY 09/08/23 Polyethyl Gly 3350 [Glycolax*] 1 packet PO DAILY PRN 09/08/23 Risperidone [Risperdal] 2 mg PO BEDTIME 09/08/23 Simvastatin 40 mg PO BEDTIME 09/08/23 Tamsulosin HCl 1 cap PO BEDTIME 09/08/23 Timolol 0.5% Opth [Timoptic 0.5% Opth*] 1 drop EACH EYE BID 09/08/23 Trazodone HCl 25 mg PO BEDTIME 09/08/23 Zinc Oxide [Zinc Oxide 20%*] 1 sd TOP TID 09/08/23 clonazePAM [Clonazepam] 0.75 mg PO BEDTIME 09/08/23 Diphenhydramine [Benadryl*] 25 mg IV Q6H PRN vial 09/15/23 Jb [Jb*] 1 pkt PO BID 09/15/23 Metoprolol Succinate [Toprol Xl*] 12.5 mg PO DAILY tab 09/15/23 Acetaminophen [Tylenol*] 1,000 mg PO BEDTIME 03/15/24 Apixaban [Eliquis] 5 mg PO BID 03/15/24 Senosides [Senokot*] 2 tab PO BID 03/15/24 Lactulose 30 ml PO Q12HP PRN #1000 ml 03/18/24 Review of Systems is unable to be obtained <Hanna Sutherland - Last Filed: 03/15/24 21:36> Physical Examination - Physical Exam General: Alert, Confused, Other (Nonverbal) HEENT: Atraumatic, Normocephalic Neck: Supple, 2+ carotid pulse no bruit Respiratory: Clear to auscultation bilaterally, Normal air movement Cardiovascular: Normal pulses, Regular rate/rhythm, Normal S1 S2 Capillary refill: <2 Seconds Gastrointestinal: Hypoactive, Other (Mild abdominal distention) Musculoskeletal: No clubbing, No swelling Integumentary: No rashes, No breakdown Neurological: Normal strength at 5/5 x4 extr, Other (Nonverbal), Dementia - Studies Laboratory Data (last 24 hrs) 03/15/24 03/15/24 15:56 15:56 WBC 5.20 Hgb 12.3 L Hct 37.2 L Plt Count 296 Sodium 140 Potassium 4.1 BUN 25 H Creatinine 0.66 L Glucose 108 H Total Bilirubin 0.2 AST 16 ALT 23 Alkaline Phosphatase 90 Lipase 39 <Hanna Sutherland - Last Filed: 03/15/24 21:36> Assessment and Plan - Problems (Diagnosis) (1) Small bowel obstruction Status: Acute (2) Abdominal pain Status: Acute (3) Microcytic anemia Status: Chronic (4) Alzheimer disease Status: Chronic (5) Peripheral artery disease Status: Acute (6) Skin ulcers of foot, bilateral Status: Acute - Plan [facility] to consult to follow small bowel obstruction Soapsuds enema, Fleet Enema given in the ER, daily mineral oil N.po except meds, repeat KUB in the a.m. IV fluids, as needed analgesics, antiemetics, Reglan, Alzheimer's supportive care, fall precautions, Microcytic anemia, trend H&H Follow-up with the wound care clinic after discharge Full code Diet n.p.o x meds. advance when bowel obstruction resolved Disposition Home,w [facility] Discharge Plan: Home - Advance Directives Does patient have a Living Will: No Does patient have a Durable POA for Healthcare: No - Code Status/Comfort Care Code Status: Full Code Critical Care: No Time Spent Managing Pts Care (In Minutes): 55 <Hanna Sutherland - Last Filed: 03/15/24 21:36> Date of Service: 03/15/24 Patient was seen and examined. Events of the last 24 hours have been noted. Spoke with with SD regarding patient's clinical picture after evaluating and examining the patient independently. I performed a substantial part of the MDM during this patient's care today. I personally made or approved the documented management plan and acknowledge its risk of complications. I agree with the findings and documentation provided in the SD's notes. Appreciate surgical consultation. Will continue to monitor. Supportive care at this time. <Tasia Potts - Last Filed: 03/21/24 18:10>
[2024-03-15] MEDS ORDERED: ONDANSETRON 4 MG/2 ML VIAL IV PRN (18:24)
[2024-03-15] MEDS ORDERED: METOCLOPRAMIDE 10 MG/2mL INJ IV PRN (18:27)
[2024-03-15 21:23] VITALS: BMI 24.4
[2024-03-15] MEDS: NA CHLORIDE 0.9% 1,000 ML IV SCH (21:32)
[2024-03-15] MEDS: MINERAL OIL 30 ML UCUP PO PRN (21:43)
[2024-03-15] MEDS ORDERED: TRAZODONE 50 MG TABLET PO SCH ×2 (22:00)
[2024-03-15] MEDS: GUAIFENESIN/CODEINE 5ML UCUP PO PRN (23:19)
[2024-03-16] MEDS: MORPHINE 2 MG/ML SYR IV PRN (05:39)
[2024-03-16 05:45] LABS: Absolute Eosinophils 0.2 K/uL (0-0.5); Absolute Lymphocytes (CBC) 1.3 K/uL (0.7-4.9); Absolute Monocytes 0.4 K/uL (0.1-1.3); Absolute Neutrophil 3.7 K/uL (1.8-8.0); Basophils % 0.4 % (0-1.3); Eosinophils % 2.9 % (0-4.4); Hematocrit 35.2 % (39.6-49.0); Hemoglobin 11.3 g/dL (13.6-17.9); Lymphocytes % 22.5 % (15.3-44.8); MCH 27.8 pg (27.0-35.0); MPV 6.6 fL (7.6-11.3); Monocytes % 7.9 % (3.3-12.3); Neutrophils % 66.3 % (41.7-73.7); Platelets 304 thou/uL (152-406); RBC Red Blood Cell Count 4.05 M/uL (4.33-5.43); Red Cell Distribution Width 15.1 % (12.1-15.2)
--- NOTE | 2024-03-16 07:06 | RAD REPORT ---
EXAM: AP view(s) of the abdomen Abdomen 1 View (KUB) HISTORY: Constipation COMPARISON: 03/15/2024 FINDINGS: Nonobstructive bowel gas pattern.. Decreased stool in the sigmoid and rectum compared with 4. There is still moderate stool present at the ascending colon in particular and scattered throughout. No suspicious calcifications are seen. No acute osseous abnormality. Other: n/a IMPRESSION: Nonobstructive bowel gas pattern. Decreased stool burden in the sigmoid and rectum.
--- NOTE | 2024-03-16 07:54 | P.PN ---
Subjective Date of Service: 03/16/24 Chief Complaint: Small bowel obstruction Admitted with abdominal pain, soapsuds enema ordered <Hanna Sutherland - Last Filed: 03/16/24 19:29> Date of Service: 03/16/24 <Tasia Potts - Last Filed: 03/21/24 18:11> Review of Systems is unable to be obtained <Hanna Sutherland - Last Filed: 03/16/24 19:29> Physical Examination - Vital Signs Temperature: 98.3 F Blood Pressure: 128/74 Pulse: 80 Respirations: 16 Pulse Ox (%): 97 - Physical Exam General: Oriented x1, Confused HEENT: Atraumatic, Normocephalic Neck: Supple, 2+ carotid pulse no bruit Respiratory: Normal air movement, Other (Unlabored) Cardiovascular: Normal pulses, Regular rate/rhythm, Normal S1 S2 Capillary refill: <2 Seconds Gastrointestinal: Hypoactive, Other (Abdominal distention) Musculoskeletal: No swelling, No contractures Integumentary: No breakdown, No significant lesion, Other (Moderate generalized weakness) Neurological: Abnormal gait, Abnormal speech, Abnormal strength - Studies Laboratory Data (last 24 hrs) 03/15/24 03/15/24 15:56 15:56 WBC 5.20 Hgb 12.3 L Hct 37.2 L Plt Count 296 Sodium 140 Potassium 4.1 BUN 25 H Creatinine 0.66 L Glucose 108 H Total Bilirubin 0.2 AST 16 ALT 23 Alkaline Phosphatase 90 Lipase 39 <KokoHanna - Last Filed: 03/16/24 19:29> Assessment And Plan - Current Problems (Diagnosis) (1) Small bowel obstruction Status: Acute (2) Abdominal pain Status: Acute (3) Microcytic anemia Status: Chronic (4) Alzheimer disease Status: Chronic (5) Peripheral artery disease Status: Acute (6) Skin ulcers of foot, bilateral Status: Acute - Plan Admit to MedSurg Surgery to consult to follow small bowel obstruction Soapsuds enema, Fleet Enema given in the ER, daily mineral oil Advance diet, IV fluids, as needed analgesics, antiemetics, Reglan, Alzheimer's supportive care, fall precautions, Microcytic anemia, trend H&H Follow-up with the wound care clinic after discharge Full code Diet advance as tolerated Disposition Home,w [facility] Time Spent Managing PTS Care (In Minutes): 35 <Hanna Sutherland - Last Filed: 03/16/24 19:29> Date of Service: 03/16/24 Patient was seen and examined. Events of the last 24 hours have been noted. Spoke with with CLARA regarding patient's clinical picture after evaluating and examining the patient independently. I performed a substantial part of the MDM during this patient's care today. I personally made or approved the documented management plan and acknowledge its risk of complications. I agree with the findings and documentation provided in the CLARA's notes. Appreciate surgical consultation. KUB with severe constipation with possible fecal impaction. Continue with laxative and enema as needed to get patient cleaned out. <Tasia Potts - Last Filed: 03/21/24 18:11>
[2024-03-16] MEDS: MINERAL OIL 30 ML UCUP PO ONE (08:27)
[2024-03-16] MEDS: APIXABAN 5 MG TABLET PO SCH (08:27)
--- NOTE | 2024-03-16 09:51 | CON ---
Date of Consultation: 03/16/2024 Reason For Consultation: Constipation. History Of Present Illness: The patient is a 79-year-old gentleman with multiple medical problems, w ho [facility] for wounds on his right lower extremity. We evaluated and treated the wounds in the [facility]. Dressing is going to be Santyl, which we will o rder. However, the noted that the patient has not had a bowel movement in 10 days. On exam, hi s abdomen was distended, it was tender, and it was somewhat hard consistent with a history of constip ation. The stated that she tried 1 dose of lactulose, magnesium citrate, MiraLAX with no result s. The patient was sent to the emergency room for evaluation, was found to have significant amount o f stool in his colon, and was treated for that and had a large bowel movement, and the patient is muc h better. Today, he is resting comfortable, in no distress at all. The says he looks better. No sore throat, runny nose, cough, headaches, or dizziness. No chest pain. No fever or chills. Review of Systems: Otherwise unremarkable. Past Medical History: Significant for Alzheimer disease, glaucoma, hypertension, paranoid schizophre rina. Past Surgical History: Back surgery, cataract surgery, multiple wound debridements. Allergies: INCLUDE BACTRIM. Social History: The patient does not smoke or drink alcohol. Family History: Significant for cancer in the father and Alzheimer's in the mother. Physical Examination: Vital Signs: Stable. He is afebrile. General: He is awake. Head and Neck: No masses. Chest: Clear. Heart: S1, S2. Abdomen: Soft, much less distended than yesterday. No tenderness. No rebound. No rigidity. No gu arding. Extremities: Adequately perfused, nontender. Neuro: Nonfocal. Diagnostic Data: CT of the abdomen, abdominal x-ray from yesterday and abdominal x-ray from today re viewed. Essentially, the stool burden has markedly decreased since the treatment given yesterday. T here is still moderate amount of stool present in the ascending colon, scattered throughout, but much better than it was prior to our intervention. Assessment: Constipation. The patient with multiple medical problems and wounds in right lower extr emity. Recommendations: I would recommend a high-fiber diet. MiraLAX, stool softeners, lactulose titrated to effect. Enemas if needed. Wound care as ordered. Follow [facility] for the wounds. /MAGDIELL Voice ID: [id number] Report ID: [id number]
--- NOTE | 2024-03-16 12:26 | P.DS ---
Admission Date: 03/15/24 Discharge Date: 03/18/24 Reason for Admission: Small bowel obstruction Brief History of Present Illness: 79-year-old male with a past medical history Alzheimer's disease; Glaucoma; Hypertensive disorder presents to the emergency room from the wound care center for abdominal pain. HPI obtained by spouse/ED report. reports no bowel movement for the past 7 days. reports taking mag citrate, lactulose, without effect, patient is nonverbal, HPI limited ER evaluation X-rays demonstrate extensive stool, impaction and distended bowel. Vital signs are stable, plan to admit for small bowel obstruction, abdominal pain, constipation, please surgical consultation - Physical Exam General: Alert, Confused, Other (Nonverbal) HEENT: Atraumatic, Normocephalic Neck: Supple, 2+ carotid pulse no bruit Respiratory: Clear to auscultation bilaterally, Normal air movement Cardiovascular: Normal pulses, Regular rate/rhythm, Normal S1 S2 Capillary refill: <2 Seconds Gastrointestinal: Hypoactive, Other (Mild abdominal distention) Musculoskeletal: No clubbing, No swelling Integumentary: No rashes, No breakdown Neurological: Normal strength at 5/5 x4 extr, Other (Nonverbal), Dementia Hospital Course: 79-year-old male with a past medical history Alzheimer's disease; Glaucoma; Hypertensive disorder presents to the emergency room from the wound care center for abdominal pain. HPI obtained by spouse/ED report. reports no bowel movement for the past 7 days. reports taking mag citrate, lactulose, without effect, patient is nonverbal, HPI limited ER evaluation X-rays demonstrate extensive stool, impaction and distended bowel. Vital signs are stable, plan to admit for small bowel obstruction, abdominal pain, constipation, please surgical consultation, KUB was improved this morning, large bowel movement with soapsuds enema, seen by surgery, diet was advanced, to discharge home with home health Discharge home with home health, resume care home, PT OT, speech, Follow-up with wound care clinic for wound care Assessment Small bowel obstruction, improved with bowel rest, repeat KUB improved, diet advanced, Abdominal pain, with constipation, improved with stool softeners, Microcytic anemia stable, [place]'s disease, supportive care, fall precautions, discharge home with home health, PT OT and speech Peripheral artery disease, Bilateral skin ulcers, can discharge home, follow-up with wound clinic with surgery, Continue home medicines as previously prescribed GOAL: Clear understanding of disease process INSTRUCTIONS: Physician Discharge Instructions: -Follow-up with PCP in 1 to 2 weeks -Please call Dr. Potts at [phone] if any questions regarding hospital stay -Please call nursing station at [phone] if any nursing or medication questions -Return to the emergency room if symptoms worsen Diet: ADA, low sodium Activity: Fall precautions <Hanna Sutherland - Last Filed: 03/18/24 14:14> Admission Date: 03/15/24 Discharge Date: 03/18/24 Hospital Course: Patient was seen and examined. Events of the last 24 hours have been noted. Spoke with with SD regarding patient's clinical picture after evaluating and examining the patient independently. I performed a substantial part of the MDM during this patient's care today. I personally made or approved the documented management plan and acknowledge its risk of complications. I agree with the findings and documentation provided in the SD's notes. Patient is clinically doing well and at this time patient is stable for discharge home. Continue with bowel regimen including stool softener. <Tasia Potts - Last Filed: 03/21/24 18:12> Disposition: ROUTINE DISCHARGE Discharge Condition: FAIR Vital Signs/Physical Exam: Temp Pulse Resp BP Pulse Ox 97.7 F 82 16 132/76 93 03/16/24 08:00 03/16/24 08:00 03/16/24 08:00 03/16/24 08:00 03/16/24 08:00 Laboratory Data at Discharge: WBC 5.60 thou/uL (4.3-10.9) 03/16/24 05:11 Hgb 11.3 g/dL (13.6-17.9) L D 03/16/24 05:11 Hct 35.2 % (39.6-49.0) L 03/16/24 05:11 Plt Count 304 thou/uL (152-406) 03/16/24 05:11 Sodium 139 mEq/L (136-145) 03/16/24 05:11 Potassium 4.0 mEq/L (3.5-5.1) 03/16/24 05:11 BUN 17 mg/dL (7-18) 03/16/24 05:11 Creatinine 0.55 mg/dL (0.70-1.30) L 03/16/24 05:11 Glucose 102 mg/dL (74-106) 03/16/24 05:11 Magnesium 2.0 mg/dL (1.6-2.4) 03/16/24 05:11 Total Bilirubin 0.2 mg/dL (0.2-1.0) 03/15/24 15:56 AST 16 U/L (15-37) 03/15/24 15:56 ALT 23 U/L (16-61) 03/15/24 15:56 Alkaline Phosphatase 90 U/L (45-117) 03/15/24 15:56 Lipase 39 U/L (13-75) 03/15/24 15:56 <Hanna Sutherland - Last Filed: 03/18/24 14:14> Vital Signs/Physical Exam: Temp Pulse Resp BP Pulse Ox 99.9 F 86 14 110/57 L 95 03/18/24 12:00 03/18/24 12:00 03/18/24 12:00 03/18/24 12:00 03/18/24 12:00 Laboratory Data at Discharge: WBC 6.90 thou/uL (4.3-10.9) 03/18/24 04:28 Hgb 11.6 g/dL (13.6-17.9) L 03/18/24 04:28 Hct 35.5 % (39.6-49.0) L 03/18/24 04:28 Plt Count 295 thou/uL (152-406) D 03/18/24 04:28 Sodium 137 mEq/L (136-145) 03/18/24 04:28 Potassium 3.8 mEq/L (3.5-5.1) 03/18/24 04:28 BUN 12 mg/dL (7-18) 03/18/24 04:28 Creatinine 0.66 mg/dL (0.70-1.30) L 03/18/24 04:28 Glucose 107 mg/dL (74-106) H 03/18/24 04:28 Phosphorus 3.2 mg/dL (2.5-4.9) 03/18/24 04:28 Magnesium 1.9 mg/dL (1.6-2.4) 03/18/24 04:28 Total Bilirubin 0.2 mg/dL (0.2-1.0) 03/15/24 15:56 AST 16 U/L (15-37) 03/15/24 15:56 ALT 23 U/L (16-61) 03/15/24 15:56 Alkaline Phosphatase 90 U/L (45-117) 03/15/24 15:56 Lipase 39 U/L (13-75) 03/15/24 15:56 <Tasia Potts - Last Filed: 03/21/24 18:12> Diet: Thickened Activity: Fall precautions Time spent managing pt's care (in minutes): 45 <Hanna Sutherland - Last Filed: 03/18/24 14:14> <Tasia Potts - Last Filed: 03/21/24 18:12> Home Medications: Brimonidine Tartrate [Lumify] 1 drop EACH EYE BID 09/08/23 Cholecalciferol (Vitamin D3) [Vitamin D3] 1 tab PO DAILY 09/08/23 Galantamine HBr [Galantamine ER] 8 mg PO BID 09/08/23 Guaifenesin [Cough Syrup] 10 ml PO Q4H PRN 09/08/23 Lactobacillus Acidophilus 1 cap PO DAILY 09/08/23 Lactulose 10 gm PO DAILY PRN 09/08/23 Latanoprost Ophth [Xalatan 0.005%*] 1 drop EACH EYE BEDTIME 09/08/23 Omeprazole 20 mg PO DAILY 09/08/23 Polyethyl Gly 3350 [Glycolax*] 1 packet PO DAILY PRN 09/08/23 Risperidone [Risperdal] 2 mg PO BEDTIME 09/08/23 Simvastatin 40 mg PO BEDTIME 09/08/23 Tamsulosin HCl 1 cap PO BEDTIME 09/08/23 Timolol 0.5% Opth [Timoptic 0.5% Opth*] 1 drop EACH EYE BID 09/08/23 Trazodone HCl 25 mg PO BEDTIME 09/08/23 Zinc Oxide [Zinc Oxide 20%*] 1 sd TOP TID 09/08/23 clonazePAM [Clonazepam] 0.75 mg PO BEDTIME 09/08/23 Diphenhydramine [Benadryl*] 25 mg IV Q6H PRN vial 09/15/23 Jb [Jb*] 1 pkt PO BID 09/15/23 Metoprolol Succinate [Toprol Xl*] 12.5 mg PO DAILY tab 09/15/23 Acetaminophen [Tylenol*] 1,000 mg PO BEDTIME 03/15/24 Apixaban [Eliquis] 5 mg PO BID 03/15/24 Senosides [Senokot*] 2 tab PO BID 03/15/24 Lactulose 30 ml PO Q12HP PRN #1000 ml 03/18/24 New Medications: Lactulose 30 ml PO Q12HP PRN #1000 ml PRN Reason: Constipation Physician Discharge Instructions: 79-year-old male with a past medical history Alzheimer's disease; Glaucoma; Hypertensive disorder presents to the emergency room from the wound care center for abdominal pain. HPI obtained by spouse/ED report. reports no bowel movement for the past 7 days. reports taking mag citrate, lactulose, without effect, patient is nonverbal, HPI limited ER evaluation X-rays demonstrate extensive stool, impaction and distended bowel. Vital signs are stable, plan to admit for small bowel obstruction, abdominal pain, constipation, please surgical consultation, KUB was improved this morning, large bowel movement with soapsuds enema, seen by surgery, diet was advanced, to discharge home with home health Discharge home with home health, resume care home, PT OT, speech, Follow-up with wound care clinic for wound care Assessment Small bowel obstruction, improved with bowel rest, repeat KUB improved, diet advanced, Abdominal pain, with constipation, improved with stool softeners, Microcytic anemia stable, [place]'s disease, supportive care, fall precautions, discharge home with home health, PT OT and speech Peripheral artery disease, Bilateral skin ulcers, can discharge home, follow-up with wound clinic with surgery, Continue home medicines as previously prescribed GOAL: Clear understanding of disease process INSTRUCTIONS: Physician Discharge Instructions: -Follow-up with PCP in 1 to 2 weeks -Please call Dr. Potts at [phone] if any questions regarding hospital stay -Please call nursing station at [phone] if any nursing or medication questions -Return to the emergency room if symptoms worsen Diet: ADA, low sodium Activity: Fall precautions Followup: NONE,NONE [Primary Care Provider] -
[2024-03-16] MEDS: ACETIC ACID 0.25% IRRIG IRR ONE (12:51)
[2024-03-16] MEDS: COLLAGENASE 30 GM OINTMENT TOP SCH (12:51)
[2024-03-17 06:37] LABS: Absolute Basophils 0.1 K/uL (0-0.5); Absolute Eosinophils 0.2 K/uL (0-0.5); Absolute Lymphocytes (CBC) 1.7 K/uL (0.7-4.9); Absolute Monocytes 0.7 K/uL (0.1-1.3); Absolute Neutrophil 5.2 K/uL (1.8-8.0); Basophils % 0.7 % (0-1.3); Eosinophils % 2.8 % (0-4.4); Hematocrit 36.1 % (39.6-49.0); Hemoglobin 11.9 g/dL (13.6-17.9); Lymphocytes % 21.8 % (15.3-44.8); MCH 28.7 pg (27.0-35.0); MCV 86.9 fL (80-100); MPV 6.8 fL (7.6-11.3); Monocytes % 8.9 % (3.3-12.3); Neutrophils % 65.8 % (41.7-73.7); Nucleated Red Blood Cells % 0.1 % (0-0); Platelets 211 thou/uL (152-406); RBC Red Blood Cell Count 4.15 M/uL (4.33-5.43); Red Cell Distribution Width 15.3 % (12.1-15.2)
[2024-03-17 06:50] LABS: Anion Gap 6.2 mEq/L (5.0-15.0)
[2024-03-17 06:52] LABS: Potassium 4.2 mEq/L (3.5-5.1)
[2024-03-17 07:55] LABS: Blood Morphology Comment NOT SEEN (NOT SEEN); Differential Total Cells Count 100; Eosinophils 2 % (0-3); Lymphocytes 25 % (15-42); Monocytes 7 % (0-10); Platelet Estimate ADEQ; Segmented Neutrophils 66 % (40-80); Toxic Granulation 1+
[2024-03-17] MEDS: LACTULOSE 20 GM/30 ML UCUP PO ONE (09:35)
--- NOTE | 2024-03-17 10:16 | RAD REPORT ---
EXAM: XR Abdomen 1 View (KUB) HISTORY: [facility] constipation COMPARISON: 6 03/16/2024 FINDINGS: Single view of the abdomen shows a nonspecific, nonobstructive bowel gas pattern. Moderate stool burden along the ascending colon and rectal bulb. No suspicious calcifications are seen. The bones are unremarkable. IMPRESSION: Moderate stool burden along the ascending colon and rectum are, probably stable.
[2024-03-17] MEDS: LACTULOSE 20 GM/30 ML UCUP PR ONE (12:25)
--- NOTE | 2024-03-17 16:43 | P.PN ---
Date of Service: 03/17/24 subjective several BM overnight, KUB still shows moderate stool, Review of Systems is unable to be obtained Physical Examination - Vital Signs reviewed - Physical Exam General: Oriented x1, Confused, responds to verbal, HEENT: Atraumatic, Normocephalic Neck: Supple, 2+ carotid pulse no bruit Respiratory: Normal air movement, Other (Unlabored) Cardiovascular: Normal pulses, Regular rate/rhythm, Normal S1 S2 Capillary refill: <2 Seconds Gastrointestinal: Hypoactive, Other (Abdominal distention) Musculoskeletal: No swelling, No contractures, B)LE foot wounds, dry dressing, covered vince wrap Integumentary: No breakdown, Other moderate generalized weakness Neurological: Abnormal gait, Abnormal speech, Abnormal strength Assessment And Plan - Current Problems (Diagnosis) (1) Small bowel obstruction Current Visit: Yes Status: Acute (2) Abdominal pain Current Visit: Yes Status: Acute (3) Microcytic anemia Current Visit: Yes Status: Chronic (4) Alzheimer disease Current Visit: No Status: Chronic (5) Peripheral artery disease Current Visit: Yes Status: Acute (6) Skin ulcers of foot, bilateral Current Visit: Yes Status: Acute - Plan Admit to [facility] Surgery to consult to follow small bowel obstruction Soapsuds enema, Fleet Enema given in the ER, daily mineral oil- good results, KUB still shows moderate stool Advance diet, as tolerated IV fluids, as needed analgesics, antiemetics, Reglan, Alzheimer's supportive care, fall precautions, Microcytic anemia, trend H&H Follow-up with the wound care clinic after discharge Full code Diet advance as tolerated Disposition Home,w [facility] Time Spent Managing PTS Care (In Minutes): 35 <Hanna Sutherland - Last Filed: 03/18/24 14:14> Patient was seen and examined. Events of the last 24 hours have been noted. Spoke with with CLARA regarding patient's clinical picture after evaluating and examining the patient independently. I performed a substantial part of the MDM during this patient's care today. I personally made or approved the documented management plan and acknowledge its risk of complications. I agree with the findings and documentation provided in the CLARA's notes. Appreciate surgical consultation. Will continue to monitor. Supportive care at this time. <Tasia Potts - Last Filed: 03/21/24 18:12>
[2024-03-18] MEDS: ACETAMINOPHEN 325 MG TABLET PO PRN (01:46)
[2024-03-18 05:03] LABS: Absolute Eosinophils 0.2 K/uL (0-0.5); Absolute Lymphocytes (CBC) 1.2 K/uL (0.7-4.9); Absolute Monocytes 0.7 K/uL (0.1-1.3); Absolute Neutrophil 4.7 K/uL (1.8-8.0); Basophils % 0.3 % (0-1.3); Eosinophils % 2.7 % (0-4.4); Hematocrit 35.5 % (39.6-49.0); Hemoglobin 11.6 g/dL (13.6-17.9); MCH 28.2 pg (27.0-35.0); MCHC 32.6 g/dL (32.0-36.0); MCV 86.5 fL (80-100); MPV 6.5 fL (7.6-11.3); Monocytes % 10.7 % (3.3-12.3); Neutrophils % 68.3 % (41.7-73.7); Platelets 295 thou/uL (152-406); Red Cell Distribution Width 15.1 % (12.1-15.2)
[2024-03-18 05:15] LABS: Albumin 2.7 g/dL (3.4-5.0); Anion Gap 7.8 mEq/L (5.0-15.0); Magnesium 1.9 mg/dL (1.6-2.4); Phosphorus 3.2 mg/dL (2.5-4.9); Potassium 3.8 mEq/L (3.5-5.1)
[2024-03-18 07:27] VITALS: O2SAT 96
--- NOTE | 2024-03-18 07:43 | RAD REPORT ---
Exam:Abdomen 1 View (KUB) Clinical history: Abdominal pain FINDINGS: The bowel gas pattern is unremarkable A moderate to large amount of stools present throughout the colon. No significant calcification is displayed.
[2024-03-18] MEDS: POTASSIUM 25 MEQ EFFERV TAB PO ONE (08:29)
[2024-03-18] MEDS: BISACODYL E.C. 5 MG TAB PO ONE (09:38)
[2024-03-18] MEDS: MINERAL OIL 30 ML UCUP PO ONE (10:00)
[2024-03-18] MEDS: BISACODYL 10 MG RECTAL SUPP PR ONE (10:12)
[2024-03-18] MEDS: LACTULOSE 20 GM/30 ML UCUP PR ONE (11:12)
[2024-03-18 12:29] VITALS: BP 110/57; TEMP 99.9
--- NOTE | 2024-03-18 15:56 | EKG ---
Test Date: 2024-03-15 Test Time: 15:19:03 [employer] Supervisor: JUANITA MEASUREMENT RESULTS: Intervals: Rate: 76 AR: 160 QRSD: 126 QT: 416 QTc: 468 [place]: P: 73 AR: 160 QRS: 19 T: 61 INTERPRETIVE STATEMENTS: Normal sinus rhythm Right bundle branch block Abnormal ECG Compared to ECG 12/28/2023 17:48:14 No significant changes Electronically Signed On 03-18-24 15:51:07 PROSTHETIC MAKEUP DESIGNER by Mk Loza
== END 2024-03-18 15:21 | disposition home or self-care (01) | DRG 390 ==
LOC: ER 14:45 → ERHOLD 18:23 → 2ND 19:51
PROVIDERS: ADMIT Hospitalist; ATTEND Hospitalist
DX: K56.609 Unspecified intestinal obstruction, unspecified as to partial versus complete obstruction (principal); I10 Essential (primary) hypertension; I73.9 Peripheral vascular disease, unspecified; K59.00 Constipation, unspecified; D50.9 Iron deficiency anemia, unspecified; G30.9 Alzheimer's disease, unspecified; F02.80 Dementia in other diseases classified elsewhere, unspecified severity, without behavioral disturbance, psychotic disturbance, mood disturbance, and anxiety; L98.499 Non-pressure chronic ulcer of skin of other sites with unspecified severity; Z88.1 Allergy status to other antibiotic agents; Z79.01 Long term (current) use of anticoagulants; Z79.899 Other long term (current) drug therapy
CPT/HCPCS: 36415; 74018; 74022; 74177; 80048; 80053; 80069; 83605; 83690; 83735; 84484; 85025; 87070; 87077; 87186; 87205; 93005; 97161; 99285; J2270; J3590; J7030; Q9967

== ENCOUNTER 2024-05-17 14:34 | Emergency (ER) | payer OTHER, BC ==
--- OUTSIDE RECORDS SUMMARY | 2024-05-17 14:43 | XMS REPORT | Continuity of Care Document ---
Author Name Unknown Address [address] [facility] [address] [place] [address] [facility] thconnect Address [address] [facility]. [address] [place] [address] Care Team Providers Care Hypoid Gear Generator Name Role Phone DOUGIE GILES Primary Care Physician Unavailab MONICA Deluca Attending Clinician Unavailab ISAURA Ceja Attending Clinician Unavailable ISAURA BECK Attending Clinician Unavailable Isaura Beck MD Attending Clinician [phone] NATALIE TRIVEDI Attending Clinician Unavaila Joseph Joe Attending Clinician Unavailable Joseph Smith Attending Clinician [phone] NICANOR LENTZ Attending Clinician Unavailable Nicanor Lentz DO Attending Clinician [phone] Shira Mead RN Attending Clinician Unavail able MARQUES HINES Attending Clinician Unavailable Chapito CONNELLY Andreina S Attending Clinician [phone] Marlena Rios MD Attending Clinician [phone] Marques Hines DO Attending Clinician [phone] Virginia Soni DO Attending Clinician [phone] VIRGINIA SONI Attending Clinician Unavailab Ena Montenegro RN Attending Clinician Unavailab Juno Hand MD Attending Clinician [phone] OLMAN DAVDI Attending Clinician Unavailable Frankie SANDAL [employer]S ASSEMBLER, [place] Attending Clinician [phone] Doctor Unassigned, [place] Attending Clinician U arronailable LYDIA TRISTAN Attending Clinician Unavailab Marcie Lazar DO Attending Clinician [phone] Chaz Roberts MD Attending Clinician [phone] Farooq [employer] ASSEMBLER, Natalie Attending Clinician [phone] Fantasma Marroquin MD Attending Clinician [phone] Jean Jarrett MD Attending Clinician [phone] Dougie Giles MD Attending Clinician [phone] DOUGIE GILES Attending Clinician Unavailable MARLENA RIOS Attending Clinician Unavailable Yaritza Aguirre Anavella Attending Cli nician Unavailable JOSEFINA DASILVA Attending Clinician Unavailable Josefina Dasilva MD Attending Clinician [phone] Nurse, Adc Surgery Gu Attending Clinician Jelani Bray MD Attending Clinician [phone] JEAN JARRETT Attending Clinician Unavailable Liane Negrete RN Attending Clinician Unavailable Only, Ang Db Test Attending Clinician Unavailabl Mannie Vuong DO Attending Clinician [phone] MANNIE VÁSQUEZ Attending Clinician Unavail able MARGI BOYD Attending Clinician Unavailable Gramm [employer]AND[employer]S ASSEMBLER, Margi Hu Attending Clinician [phone] Justine Collins Attending Clinician [phone] JUSTINE GARCIA Attending Clinician Unavailable Lab, Adc Fam Pob I Attending Clinician Unavailab JELANI Álvarez Attending Clinician Unavail able JELANI CORDON Attending Clinician Unavail able JEZ ALEXANDER Attending Clinician Unavailable Rajjoel_Olga Attending Clinician Unavailable MONICA RYAN Admitting Clinician Unavailab ISAURA Ceja Admitting Clinician Unavailable Joseph MELENDEZ Admitting Clinician Unavailable MARQUES HINES Admitting Clinician Unavailable Marques Hines DO Admitting Clinician [phone] [place] SONI Admitting Clinician Unavailab OLMAN Anglin Admitting Clinician Unavailable CHAZ ROBERTS Admitting Clinician Unavailable Chaz Roberts MD Admitting Clinician [phone] NICANOR LENTZ Admitting Clinician Unavailable MARLENA RIOS Admitting Clinician Unavailable Marlena Rios MD Admitting Clinician [phone] Tomasa Aguirre Anav Admitting Clinician U JOSEFINA Cam Admitting Clinician Unavailable Josefina Dasilva MD Admitting Clinician JELANI CORDON Admitting Clinician Unavail able Raju_P Admitting Clinician Unavailable Payers Payer Name Policy Type Policy Number Effective Date Expirati on Date Source [facility] [id number] 2021 00:00:00 MEDICARE PART A \\T\\ B [id number] 2002 00:00:00 BCBS TRADITIONAL [id number] 2013 00:00:00 MCR MCR [id number] BCTI BCTI [id number] [id number] [id number] [place] [employer] [id number] 2002 00:00:00 [place] [id number] 2013 00:00:00 Problems Condition Name Condition Details Condition Category Status Onset Date Resolution Date Last Treatment Date Treating Clinician Comments Source Fever, unspecifie d fever cause Fever, unspecifie d fever cause Disease Active 2022-04 00:00: 00 [facility] Wound of right ankle, initial encounter Wound of right ankle, initial encounter Disease Active 2022-04 0 00:00: 00 [facility] Cellulitis , unspecifie d cellulitis site Cellulitis , unspecifie d cellulitis site Disease Active 11-29 00:00: 00 [facility] Unspecifie d dementia, unspecifie d severity, without behavioral disturbanc e, psychotic disturbanc e, mood disturbanc e, and anxiety Unspecifie d dementia, unspecifie d severity, without behavioral disturbanc e, psychotic disturbanc e, mood disturbanc e, and anxiety Disease Active 8 00:00: 00 [facility] 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 11-26 00:00: 00 [facility] Problem related to unspecifie d psychosoci al circumstan vasu Problem related to unspecifie d psychosoci al circumstan vasu Disease Active 11-26 00:00: 00 [facility] Post-traum atic stress disorder, chronic Post-traum atic stress disorder, chronic Disease Active 11-26 00:00: 00 [facility] Fever in adult Fever in adult Disease Active 10-28 00:00: 00 [facility] Pneumonia due to infectious organism Pneumonia due to infectious organism Disease Active 7 00:00: 00 [facility] At risk for aspiration At risk for aspiration Disease Active 4-20 00:00: 00 [facility] Cellulitis of right ankle Cellulitis of right ankle Disease Active 4-16 00:00: 00 [facility] Fecal impaction in rectum Fecal impaction in rectum Disease Active 2-20 00:00: 00 [facility] Pancolitis Pancolitis Disease Active 1- 00:00: 00 [facility] Basal cell carcinoma (BCC) of chin Basal cell carcinoma (BCC) of chin Disease Active 2017-04 00:00: 00 Overview: Formattin g of this note might be different from the original. Added automatic ally from request for surgery [id number] [facility] Glaucoma Glaucoma Disease Active 2014-04 00:00: 00 [facility] Hyperlipid emia Hyperlipid emia Disease Active 2014-04 00:00: 00 [facility] Carotid bruit Carotid bruit Disease Active 2014-04 00:00: 00 [facility] Allergies, Adverse Reactions, Alerts Allergy Name Allergy Type Status Severity Reaction(s) Onset Date Inactive Date Treating Clinician Comments Source Sulfamet hoxazole -Trimeth oprim Propensi ty to adverse reaction s Active Unknown - See comments - 00:00: 00 Patients reports the patient is unable to walk when taking medicatio n [facility] SULFAMET HOXAZOLE -TRIMETH OPRIM DRUG Active Unknown-Cmnt 8- 00:00: 00 [facility] Social History Social Habit Start Date Stop Date Quantity Comments Source History SDOH Social Connections Get Together [facility] History SDOH Social Connections Anabaptism [facility] History SDOH Social Connections Membership [facility] History SDOH Social Connections Meetings [facility] Gender identity [facility] Alcoholic beverage intake 2023-12-30 00:00:00 2023-12-30 00:00:00 0 /d [facility] Alcohol intake 2023 00:00:00 2023 00:00:00 0 /d [facility] Exposure to SARS-CoV-2 (event) 2022-08-17 00:00:00 2022-08-27 14:30:00 Not sure [facility] History of Social function 2022-08-27 00:00:00 2022-08-27 00:00:00 [facility] History SDOH Alcohol Frequency 2022-07-21 00:00:00 2022-07-21 00:00:00 1 [facility] History SDOH Social Connections Phone 2022-07-21 00:00:00 2022-07-21 00:00:00 3 [facility] History SDOH Social Connections Living 2022-07-21 00:00:00 2022-07-21 00:00:00 3 [facility] History SDOH Financial 2022-07-21 00:00:00 2022-07-21 00:00:00 5 [facility] History SDOH Food Worry 2022-07-21 00:00:00 2022-07-21 00:00:00 1 [facility] History SDOH Food Scarcity 2022-07-21 00:00:00 2022-07-21 00:00:00 1 [facility] History SDOH Transport Med 2022-07-21 00:00:00 2022-07-21 00:00:00 2 [facility] History SDOH Transport Non-Med 2022-07-21 00:00:00 2022-07-21 00:00:00 2 [facility] History SDOH Physical Activity DPW 2022-07-21 00:00:00 2022-07-21 00:00:00 2 [facility] History SDOH Physical Activity MPS 2022-07-21 00:00:00 2022-07-21 00:00:00 1 [facility] History SDOH Housing Unable to Pay 2022-07-21 00:00:00 2022-07-21 00:00:00 2 [facility] History SDOH Housing Places Lived 2022-07-21 00:00:00 2022-07-21 00:00:00 1 [facility] History SDOH Housing Homeless Last Year 2022-07-21 00:00:00 2022-07-21 00:00:00 2 [facility] Tobacco use and exposure 2022-07-20 00:00:00 2022-07-20 00:00:00 Smokeless tobacco non-user [facility] History SDOH Alcohol Std Drinks 2022-05-28 00:00:00 2022-05-28 00:00:00 0 [facility] History SDOH Alcohol Binge 2022-05-28 00:00:00 2022-05-28 00:00:00 1 [facility] Sex assigned at 1945 00:00:00 1945 00:00:00 [facility] Smoking Status Start Date Stop Date Source Never smoked tobacco [facility] Medications Ordered Medication Name Filled Medication Name Start Date Stop Date Current Medication? Ordering Clinician Indication Dosage Frequency Signature (SIG) Comments Components Source iopamidol (ISOVUE 370-500 mL) injection 150 mL 12-30 05:45: 00 12-30 05:45 :00 No [id number] 150mL 150 mL, Intravenou s, ONCE, 1 dose, On Marilu 12/31/23 at 0045, Routine [facility] ciprofloxac in HCl (CIPRO) tablet 500 mg 2022-04 00:30: 00 03-01 23:48 :00 No 500mg 500 mg, Oral, ONCE, 1 dose, On 03/01/23 at 1830, ROCKY
Re ason for Anti-Infec tive: Documented Infection< br>Documen nichole Infection Site: Skin / Soft Tissue
Duration of Therapy: Other (see Comments) [facility] ciprofloxac in HCl 500 mg tablet 2022-04 00:00: 00 Yes [id number] 500mg Take 1 tablet by mouth in the morning and 1 tablet at noon and 1 tablet in the evening. [facility] collagenase 250 unit/gram ointment 2022-04 00:00: 00 Yes [id number] Apply to area(s) daily. [facility] Vitamin E (E-PHEROL) 400 unit Tab 2022-04 14:37: 49 Yes 2{tbl} Take 2 tablets by mouth daily. [facility] latanoprost (XALATAN) 0.005 % ophthalmic drops 2022-04 14:37: 49 Yes 1[drp] 1 Drop every evening. [facility] brimonidine (ALPHAGAN) 0.2 % ophthalmic solution 2022-04 14:37: 49 Yes 1[drp] Take 1 Drop in the morning and 1 Drop at noon and 1 Drop in the evening. [facility] melatonin 10 mg Tab 2022-04 14:37: 49 Yes 10mg Take 10 mg by mouth at bedtime. [facility] acetaminoph en 500 mg tablet 2022-04 14:37: 49 Yes 1000mg Take 2 tablets by mouth at bedtime. [facility] mv-mn/iron/ folic acid/herb 190 (VITAMIN D3 COMPLETE ORAL) 2022-04 14:37: 49 Yes 5000U/d Take 5,000 Units/day by mouth daily. [facility] timolol 0.25 % ophthalmic solution 2022-04 14:37: 49 Yes 1[drp] Place 1 Drop in both eyes in the morning and 1 Drop in the evening. [facility] trazodone HCl (TRAZODONE ORAL) 2022-04 14:37: 49 Yes 25mg Take 25 mg by mouth at bedtime. [facility] polyethylen e glycol 3350 (MIRALAX) 17 gram/dose powder 2022-04 14:37: 49 Yes 17g Take 17 g by mouth in the morning. [facility] zinc sulfate 50 mg zinc (220 mg) capsule 2022-04 00:00: 00 Yes [id number] 50mg Take 1 capsule by mouth in the morning and 1 capsule at noon and 1 capsule in the evening. [facility] ascorbic acid, vitamin C, 500 mg tablet 2022-04 00:00: 00 Yes [id number] 500mg Take 1 tablet by mouth in the morning and 1 tablet in the evening. [facility] ibuprofen 400 mg tablet 2022-04 00:00: 00 Yes [id number] 400mg Take 1 tablet by mouth every 6 (six) hours as needed (Alternate with Tylenol for fever). [facility] codeine-gua ifenesin 10-100 mg/5 mL oral solution 2022-04 00:00: 00 02-14 05:59 :00 No [id number] 5mL Take 5 mL by mouth every 6 (six) hours as needed for Cough for up to 7 days. Indication s: acute pain, cough [facility] NaCl 0.9% (NS) IV infusion 1,000 mL 2022-04 20:00: 00 Yes 1000mL at 50 mL/hr, IV Infusion, CONTINUOUS , Starting on Thu02/04/23 at 1500, Until Discontinu ed, Routine [facility] D5W 0.9% NaCl (NS) IV infusion 1,000 mL 2022-04 03:00: 00 Yes 1000mL at 50 mL/hr, 1,000 mL, IV Infusion, CONTINUOUS , Starting on Thu02/03/23 at 2200, Until Discontinu ed, Routine [facility] D5W 0.9% NaCl (NS) IV infusion 1,000 mL 2022-04 02:15: 00 02-04 02:56 :32 No 1000mL at 150 mL/hr, 1,000 mL, IV Infusion, CONTINUOUS , Starting on Thu02/03/23 at 2115, Until Thu02/03/23 at 2156, Routine [facility] risperiDONE (RISPERDAL) tablet 4 mg 2022-04 02:00: 00 Yes 4mg 4 mg, Oral, QHS, First dose (after last modificati on) on Thu02/03/23 at 2100, Until Discontinu ed, Routine [facility] acetaminoph en (TYLENOL) suppository 650 mg 2022-04 21:35: 13 Yes 650mg 650 mg, Rectal, Q6HPRN, Starting on Thu02/03/23 at 1635, Until Discontinu ed, Routine, Temp > 38 C [facility] collagenase (SANTYL) ointment 2022-04 16:45: 00 Yes Topical, DAILY, First dose on Thu02/03/23 at 1145, Until Discontinu ed, [facility] hypochlorit [facility] 0.25% (DAKIN'S SOLUTION) solution 2022-04 16:45: 00 Yes Topical, DAILY, First dose on Thu02/03/23 at 1145, Until Discontinu ed, [facility] polyethylen [facility] glycol 3350 powder 17 g 2022-04 14:00: 00 Yes 17g 17 g, Oral, DAILY, First dose on Thu02/03/23 at 0900, Until Discontinu ed [facility] omeprazole (PRILOSEC) capsule 20 mg 2022-04 14:00: 00 Yes 20mg 20 mg, Oral, DAILY, First dose on Thu02/03/23 at 0900, Until Discontinu ed, Routine [facility] lactobacill us acidophilus tablet 0.5 mg 2022-04 14:00: 00 Yes .5mg 0.5 mg, Oral, DAILY, First dose on Thu02/03/23 at 0900, Until Discontinu ed, Routine [facility] docusate (COLACE) 50 mg/5 mL solution 100 mg 2022-04 14:00: 00 Yes 100mg 100 mg, Oral, DAILY, First dose on Thu02/03/23 at 0900, Until Discontinu ed, Routine [facility] levoFLOXaci n (LEVAQUIN) tablet 750 mg 2022-04 14:00: 00 02-13 14:59 :00 No 750mg 750 mg, Oral, DAILY, 10 doses, First dose on Thu02/03/23 at 0900, Last dose on Thu02/12/23 at 0900, ROCKY
Re ason for Anti-Infec tive: Documented Infection< br>Documen nichole Infection Site: Skin / Soft Tissue
Duration of Therapy: 10 days [facility] sodium hypochlorit e 0.5% (DAKINS) solution 16 oz 2022-04 14:00: 00 02-03 16:41 :37 No 16[oz_a v] 16 oz, Topical, DAILY, First dose on Thu02/03/23 at 0900, Until Discontinu ed, Routine [facility] zinc sulfate (ORAZINC) capsule 50 mg 2022-04 13:00: 00 Yes 50mg 50 mg, Oral, TID, First dose on Thu02/03/23 at 0800, Until Discontinu ed, [facility]ine [facility] ascorbic acid (vitamin C) (VITAMIN C) tablet 500 mg 2022-04 13:00: 00 Yes 500mg 500 mg, Oral, BID, First dose on Thu02/03/23 at 0800, Until Discontinu ed, Routine [facility] codeine-gua ifenesin (ROBITUSSIN AC) 10-100 mg/5 mL oral solution 5 mL 2022-04 05:26: 58 Yes 5mL 5 mL, Oral, Q6HPRN, Starting on Thu02/03/23 at 0026, Until Discontinu ed, Routine, Cough [facility] melatonin (MELATIN) tablet 10.5 mg 2022-04 02:00: 00 Yes 10mg 10.5 mg (rounded from 10 mg), Oral, QHS, First dose on Thu02/02/23 at 2100, Until Discontinu ed [facility] donepeziL (ARICEPT) tablet 10 mg 2022-04 02:00: 00 Yes 10mg 10 mg, Oral, QHS, First dose on Thu02/02/23 at 2100, Until Discontinu ed [facility] doxazosin (CARDURA) tablet 1 mg 2022-04 02:00: 00 Yes 1mg 1 mg, Oral, QHS, First dose on Thu02/02/23 at 2100, Until Discontinu ed, Routine [facility] latanoprost (XALATAN) 0.005 % ophthalmic drops 1 Drop 2022-04 02:00: 00 Yes 1[drp] 1 Drop, Both Eyes, QHS, First dose on Thu02/02/23 at 2100, Until Discontinu ed, Routine [facility] traZODone (DESYREL) tablet 25 mg 2022-04 02:00: 00 02-03 05:28 :00 No 25mg 25 mg, Oral, QHS, First dose on Thu02/02/23 at 2100, Until Discontinu ed [facility] brimonidine (ALPHAGAN) 0.2 % ophthalmic solution 1 Drop 2022-04 01:00: 00 Yes 1[drp] 1 Drop, Both Eyes, TID, First dose on Thu02/02/23 at 2000, Until Discontinu ed, Routine [facility] timolol (TIMOPTIC) 0.5 % ophthalmic solution 1 Drop 2022-04 01:00: 00 Yes 1[drp] 1 Drop, Both Eyes, BID, First dose on Thu02/02/23 at 1999, Until Discontinu ed, Routine [facility] amoxicillin -clavulanat e (AUGMENTIN) 875-125 mg per tablet 1 tablet 2022-04 01:00: 00 02-13 01:59 :00 No 1{tbl} 1 tablet, Oral, BID, 20 doses, First dose on Thu02/02/23 at 1999, Last dose on Marilu 02/12/23 at 0800, Routine
Reason for Anti-Infec tive: Documented Infection< br>Documen nichole Infection Site: Skin / Soft Tissue
Duration of Therapy: 10 days [facility] ibuprofen (IBU) tablet 400 mg 2022-04 23:51: 58 Yes 400mg 400 mg, Oral, Q6HPRN, Starting on Thu02/02/23 at 1851, Until Discontinu ed, Routine, Alternate with Tylenol for fever [facility] acetaminoph en (TYLENOL) tablet 650 mg 2022-04 23:51: 40 02-03 21:35 :40 No 650mg 650 mg, Oral, Q6HPRN, Starting on Thu02/02/23 at 1851, Until Thu02/03/23 at 1635, Routine, Pain (scale 1-3), Temp > 38 C [facility] D5W 0.9% NaCl (NS) IV infusion 1,000 mL 2022-04 22:45: 00 02-04 00:14 :08 No 1000mL at 100 mL/hr, 1,000 mL, IV Infusion, CONTINUOUS , Starting on Thu02/02/23 at 1745, Until Thu02/03/23 at 1914, Routine [facility] acetaminoph en ADULT (OFIRMEV) injection 1,000 mg 2022-04 22:30: 00 02-02 23:02 :00 No 1000mg 1,000 mg, IV Infusion, at 400 mL/hr Administer over 15 Minutes, ONCE, 1 dose, On Thu02/02/23 at 1730, Routine
Indicatio n: Non-periop erative Patient
Approved by: Per Policy (NPO Status) [facility] enoxaparin (LOVENOX) injection 40 mg 2022-04 22:00: 00 Yes 40mg 40 mg, Subcutaneo us, DAILY, First dose on Thu02/02/23 at 1700, Until Discontinu ed, Routine [facility] risperiDONE (RISPERDAL) tablet 4 mg 2022-04 22:00: 00 02-03 17:34 :44 No 4mg 4 mg, Oral, QPM, First dose on Thu02/02/23 at 1700, Until Discontinu ed, Routine [facility] ondansetron (ZOFRAN (PF)) injection 4 mg 2022-04 21:37: 00 Yes 4mg 4 mg, Slow IV Push, Q6HPRN, Starting on Thu02/02/23 at 1637, Until Discontinu ed, Routine, Nausea and Vomiting (N/V) [facility] dextrometho rphan-guaif enesin (ROBITUSSIN DM) 10-100 mg/5 mL solution 10 mL 2022-04 21:31: 42 Yes 10mL 10 mL, Oral, Q6HPRN, Starting on Thu02/02/23 at 1631, Until Discontinu ed, Routine, Cough [facility] sodium hypochlorit e 0.5% (DAKINS) solution 16 oz 2022-04 14:00: 00 Yes 16[oz_a v] 16 oz, Topical, DAILY, First dose on Thu01/30/23 at 0900, Until Discontinu ed, Routine [facility] sodium hypochlorit e 0.5% solution 2022-04 00:00: 00 Yes [id number] 16[oz_a v] Apply 473 mL to area(s) in the morning. [facility] metoprolol succinate XL 25 mg 24 hr tablet 2022-04 00:00: 00 03-02 05:59 :00 No [id number] 12.5mg Take 0.5 tablets by mouth in the morning for 30 days. [facility] Vitamin E (E-PHEROL) 400 unit Tab 2022-04 14:48: 25 Yes 2{tbl} Take 2 tablets by mouth daily. [facility] latanoprost (XALATAN) 0.005 % ophthalmic drops 2022-04 14:48: 25 Yes 1[drp] 1 Drop every evening. [facility] brimonidine (ALPHAGAN) 0.2 % ophthalmic solution 2022-04 14:48: 25 Yes 1[drp] Take 1 Drop in the morning and 1 Drop at noon and 1 Drop in the evening. [facility] melatonin 10 mg Tab 2022-04 14:48: 25 Yes 10mg Take 10 mg by mouth at bedtime. [facility] acetaminoph en 500 mg tablet 2022-04 14:48: 25 Yes 1000mg Take 2 tablets by mouth at bedtime. [facility] mv-mn/iron/ folic acid/herb 190 (VITAMIN D3 COMPLETE ORAL) 2022-04 14:48: 25 Yes 5000U/d Take 5,000 Units/day by mouth daily. [facility] timolol 0.25 % ophthalmic solution 2022-04 14:48: 25 Yes 1[drp] Place 1 Drop in both eyes in the morning and 1 Drop in the evening. [facility] trazodone HCl (TRAZODONE ORAL) 2022-04 14:48: 25 Yes 25mg Take 25 mg by mouth at bedtime. [facility] polyethylen e glycol 3350 (MIRALAX) 17 gram/dose powder 2022-04 14:48: 25 Yes 17g Take 17 g by mouth in the morning. [facility] amoxicillin -clavulanat e (AUGMENTIN) 875-125 mg per tablet 1 tablet 2022-04 01:00: 00 02-12 01:59 :00 No 1{tbl} 1 tablet, Oral, Q12H, 28 doses, First dose on Thu01/28/23 at 2000, Last dose on Thu02/11/23 at 0800, Routine
Reason for Anti-Infec tive: Documented Infection< br>Documen nichole Infection Site: Skin / Soft Tissue
Duration of Therapy: 14 days [facility] levoFLOXaci n (LEVAQUIN) tablet 750 mg 2022-04 20:45: 00 02-11 14:59 :00 No 750mg 750 mg, Oral, DAILY, 14 doses, First dose on Thu01/28/23 at 1545, Last dose on Thu02/10/23 at 0900, Routine
Reason for Anti-Infec tive: Documented Infection< br>Documen nichole Infection Site: Skin / Soft Tissue
Duration of Therapy: 14 days [facility] isaiah dodson (ROBITUSSIN DM) 10-100 mg/5 mL solution 10 mL 2022-04 14:33: 23 Yes 10mL 10 mL, Oral, Q6HPRN, Starting on Thu01/28/23 at 0933, Until Discontinu ed, Routine, Cough [facility] levoFLOXaci n 750 mg tablet 2022-04 00:00: 00 02-12 05:59 :00 No [id number] 750mg Take 1 tablet by mouth in the morning for 14 days. [facility] amoxicillin -clavulanat e 875-125 mg per tablet 2022-04 00:00: 00 02-12 05:59 :00 No [id number] 1{tbl} Take 1 tablet by mouth in the morning and 1 tablet in the evening. Do all this for 14 days. [facility] collagenase (SANTYL) ointment 2022-04 14:00: 00 Yes Topical (Apply To Affected Areas), DAILY, First dose on Thu01/27/23 at 0900, Until Discontinu ed, Routine [facility] zolpidem (AMBIEN) tablet 5 mg 2022-04 02:35: 19 Yes 5mg 5 mg, Oral, QHSPRN, Starting on Thu01/26/23 at 2135, Until Discontinu ed, Routine, Insomnia [facility] metoprolol succinate XL (TOPROL XL) tablet 12.5 mg 2022-04 14:00: 00 Yes 12.5mg 12.5 mg, Oral, DAILY, First dose on Thu01/26/23 at 0900, Until Discontinu ed, Routine [facility] Vitamin E (dl, acetate) capsule 400 Units 2022-04 14:00: 00 Yes 400U 400 Units, Oral, DAILY, First dose on Thu01/26/23 at 0900, Until Discontinu ed [facility] polyethylen e glycol 3350 powder 17 g 2022-04 14:00: 00 Yes 17g 17 g, Oral, DAILY, First dose on Thu01/26/23 at 0900, Until Discontinu ed [facility] omeprazole (PRILOSEC) capsule 20 mg 2022-04 14:00: 00 Yes 20mg 20 mg, Oral, DAILY, First dose on Thu01/26/23 at 0900, Until Discontinu ed, Routine [facility] lactobacill us acidophilus tablet 0.5 mg 2022-04 14:00: 00 Yes .5mg 0.5 mg, Oral, DAILY, First dose on Thu01/26/23 at 0900, Until Discontinu ed, Routine [facility] docusate (COLACE) 50 mg/5 mL solution 50 mg 2022-04 14:00: 00 Yes 50mg 50 mg, Oral, DAILY, First dose on Thu01/26/23 at 0900, Until Discontinu ed, Routine [facility] zolpidem (AMBIEN) tablet 5 mg 2022-04 06:30: 00 01-26 05:58 :00 No 5mg 5 mg, Oral, ONCE, 1 dose, On Thu01/26/23 at 0130, Routine [facility] heparin (porcine) injection 5,000 Units 2022-04 03:00: 00 Yes 5000U 5,000 Units, Subcutaneo us, Q8H, First dose on Thu01/25/23 at 2200, Until Discontinu ed, Routine [facility] cefTRIAXone (ROCEPHIN) 1,000 mg in NaCl [...] uration of therapy: 5 days [facility] traZODone (DESYREL) tablet 25 mg 2022-04 02:00: 00 Yes 25mg 25 mg, Oral, QHS, First dose on 01/25/23 at 2100, [facility] ([facility]IC[facility] 0.5 % ophthalmic solution 1 Drop 2022-04 02:00: 00 Yes 1[drp] 1 Drop, Both Eyes, BID, First dose on 01/25/23 at 2100, Until Discontinu ed, Routine [facility] risperiDONE (RISPERDAL) tablet 4 mg 2022-04 02:00: 00 Yes 4mg 4 mg, Oral, QHS, First dose on 01/25/23 at 2100, Until Discontinu ed, Routine [facility] melatonin (MELATIN) tablet 10.5 mg 2022-04 02:00: 00 Yes 10mg 10.5 mg (rounded from 10 mg), Oral, QHS, First dose on 01/25/23 at 2100, Until Discontinu ed [facility] latanoprost (XALATAN) 0.005 % ophthalmic drops 1 Drop 2022-04 02:00: 00 Yes 1[drp] 1 Drop, Both Eyes, QHS, First dose on 01/25/23 at 2100, Until Discontinu ed, Routine [facility] donepeziL (ARICEPT) tablet 10 mg 2022-04 02:00: 00 Yes 10mg 10 mg, Oral, QHS, First dose on 01/25/23 at 2100, Until Discontinu ed [facility] doxazosin (CARDURA) tablet 1 mg 2022-04 02:00: 00 Yes 1mg 1 mg, Oral, QHS, First dose on 01/25/23 at 2100, Until Discontinu ed, Routine [facility] acetaminoph en (TYLENOL) tablet 1,000 mg 2022-04 02:00: 00 Yes 1000mg 1,000 mg, Oral, QHS, First dose on Sun 23 at 2100, Until Discontinu ed, Routine [facility] brimonidine (ALPHAGAN) 0.2 % ophthalmic solution 1 Drop 2022-04 02:00: 00 Yes 1[drp] 1 Drop, Both Eyes, BID, First dose on Thu01/25/23 at 2100, Until Discontinu ed, Routine [facility] simvastatin (ZOCOR) tablet 40 mg 2022-04 02:00: 00 01-27 22:47 :39 No 40mg 40 mg, Oral, QHS, First dose on Thu01/25/23 at 2100, Until Discontinu ed, Routine [facility] guaiFENesin 100 mg/5 mL solution 200 mg 2022-04 00:20: 03 01-28 14:34 :14 No 200mg 200 mg, Oral, Q4HPRN, Starting on Thu01/25/23 at 1920, Until Thu01/28/23 at 0934, Routine, Cough [facility] vancomycin 1,250 mg in NaCl 0.9% (NS) [...]
Du ration of therapy: [address] [facility] ondansetron (ZOFRAN (PF)) injection 4 mg 2022-04 22:25: 28 Yes 4mg 4 mg, Slow IV Push, Q6HPRN, Starting on Thu01/25/23 at 1725, Until Discontinu ed, Routine, Nausea and Vomiting (N/V) [facility] acetaminoph en (TYLENOL) tablet 650 mg 2022-04 22:25: 21 Yes 650mg 650 mg, Oral, Q6HPRN, Starting on Thu01/25/23 at 1725, Until Discontinu ed, Routine, Pain (scale 1-3) [facility] ampicillin- sulbactam (UNASYN) 3 g in NaCl 0.9% (NS) 100 mL MINI-BAG 2022-04 20:15: 00 01-25 21:19 :00 No 3g 3 g, IV Piggyback, ONCE, 1 dose, On Thu01/25/23 at 1515, Administer over 30 Minutes, 100 mL
Reas on for Anti-Infec tive: Documented Infection< br>Documen nichole Infection Site: Skin / Soft Tissue
Duration of Therapy: 7 days [facility] Fish Oil-DHA-EPA 1,200-144-2 16 mg Cap 2022-04 18:31: 29 01-25 00:00 :00 No 1{capsu le} Take 1 capsule by mouth daily. [facility] collagenase (SANTYL) ointment 12-01 16:00: 00 Yes Topical (Apply To Affected Areas), DAILY, First dose on Thu12/01/22 at 1100, Until Discontinu ed, Routine [facility] Vitamin E (E-PHEROL) 400 unit Tab 12-01 15:03: 18 Yes 2{tbl} Take 2 tablets by mouth daily. [facility] latanoprost (XALATAN) 0.005 % ophthalmic drops 12-01 15:03: 18 Yes 1[drp] 1 Drop every evening. [facility] brimonidine (ALPHAGAN) 0.2 % ophthalmic solution 12-01 15:03: 18 Yes 1[drp] Take 1 Drop in the morning and 1 Drop at noon and 1 Drop in the evening. [facility] Fish Oil-DHA-EPA 1,200-144-2 16 mg Cap 12-01 15:03: 18 Yes 1{capsu le} Take 1 capsule by mouth daily. [facility] melatonin 10 mg Tab 12-01 15:03: 18 Yes 10mg Take 10 mg by mouth at bedtime. [facility] acetaminoph en 500 mg tablet 12-01 15:03: 18 Yes 1000mg Take 2 tablets by mouth at bedtime. [facility] mv-mn/iron/ folic acid/herb 190 (VITAMIN D3 COMPLETE ORAL) 12-01 15:03: 18 Yes 5000U/d Take 5,000 Units/day by mouth daily. [facility] timolol 0.25 % ophthalmic solution 12-01 15:03: 18 Yes 1[drp] Place 1 Drop in both eyes in the morning and 1 Drop in the evening. [facility] trazodone HCl (TRAZODONE ORAL) 12-01 15:03: 18 Yes 25mg Take 25 mg by mouth at bedtime. [facility] risperiDONE (RISPERDAL) tablet 4 mg 12-01 02:00: 00 Yes 4mg 4 mg, Oral, QHS, First dose (after last modificati on) on 11/30/22 at 2100, Until Discontinu ed, Routine [facility] clindamycin 75 mg/5 mL suspension 12-01 00:00: 00 12-10 04:59 :00 No [id number] 150mg Take 10 mL by mouth 4 (four) times daily for 8 days. [facility] tamsulosin (FLOMAX) capsule 0.4 mg 11-30 14:00: 00 Yes .4mg 0.4 mg, Oral, DAILY, First dose on 11/30/22 at 0900, Until Discontinu ed, Routine [facility] omeprazole (PRILOSEC) capsule 20 mg 11-30 14:00: 00 Yes 20mg 20 mg, Oral, DAILY, First dose on 11/30/22 at 0900, Until Discontinu ed, Routine [facility] docusate (COLACE) 50 mg/5 mL solution 100 mg 11-30 14:00: 00 Yes 100mg 100 mg, Oral, DAILY, First dose on Sun 23 at 0900, Until Discontinu ed, Routine [facility] glycerin/mi neral oil (AGLO ENEMA) (COMPOUNDED ) Enem 225 mL 11-30 14:00: 00 11-30 14:49 :00 No 225mL 225 mL, Rectal, ONCE, 1 dose, On 11/30/22 at 0900, Routine [facility] timolol (TIMOPTIC) 0.5 % ophthalmic solution 1 Drop 11-30 13:00: 00 Yes 1[drp] 1 Drop, Both Eyes, BID, First dose on 11/30/22 at 0800, Until Discontinu ed, Routine [facility] brimonidine (ALPHAGAN) 0.2 % ophthalmic solution 1 Drop 11-30 13:00: 00 Yes 1[drp] 1 Drop, Both Eyes, TID, First dose on Thu11/30/22 at 0800, Until Discontinu ed, Routine [facility] clindamycin in 5 % dextrose (CLEOCIN) 600 mg/50 mL IV piggyback RTU 600 mg 11-30 07:15: 00 12-05 07:14 :00 No 600mg 600 mg, IV Piggyback, Q8H ABX, 15 doses, First dose on Thu11/30/22 at 0215, Last dose on Marilu 12/04/22 at 1815, Administer over 30 Minutes, 50 mL
Reas on for Anti-Infec tive: Empiric Therapy for Suspected Infection< br>Empiric Therapy Site: Skin / Soft tissue
Duration of therapy: 5 days
Re stricted use approved by: After Hours (for ADC, CLC, LCC ONLY) [facility] NaCl 0.9% (NS) IV infusion 1,000 mL 11-30 03:15: 00 11-30 03:02 :43 No 1000mL at 75 mL/hr, IV Infusion, ONCE, 1 dose, On 11/29/22 at 2215, Routine [facility] heparin (porcine) injection 5,000 Units 11-30 03:00: 00 Yes 5000U 5,000 Units, Subcutaneo us, Q8H, First dose on 11/29/22 at 2200, Until Discontinu ed, Routine [facility] risperiDONE (RISPERDAL) tablet 4 mg 11-30 02:30: 00 11-30 22:24 :26 No 4mg 4 mg, Oral, QPM, First dose (after last modificati on) on 11/29/22 at 2130, Until Discontinu ed, Routine [facility] simvastatin (ZOCOR) tablet 40 mg 11-30 02:00: 00 Yes 40mg 40 mg, Oral, QHS, First dose on 11/29/22 at 2100, Until Discontinu ed, Routine [facility] melatonin (MELATIN) tablet 10.5 mg 11-30 02:00: 00 Yes 10mg 10.5 mg (rounded from 10 mg), Oral, QHS, First dose on 11/29/22 at 2100, Until Discontinu ed [facility] traZODone (DESYREL) tablet 25 mg 11-30 01:47: 26 Yes 25mg 25 mg, Oral, QHSPRN, Starting on 11/29/22 at 2046, Until Discontinu ed, Insomnia [facility] dextrometho rphan-guaif enesin (ROBITUSSIN DM) 10-100 mg/5 mL solution 10 mL 11-30 01:41: 51 Yes 10mL 10 mL, Oral, Q6HPRN, Starting on 11/29/22 at 2040, Until Discontinu ed, Routine, Cough [facility] acetaminoph en (TYLENOL) tablet 650 mg 11-30 00:19: 33 Yes 650mg 650 mg, Oral, Q6HPRN, Starting on 11/29/22 at 1918, Until Discontinu ed, Routine, Pain (scale 1-3) [facility] NaCl 0.9% (NS) bolus infusion 1,000 mL 11-29 23:45: 00 11-29 23:11 :00 No 1000mL at 999 mL/hr, 1,000 mL, IV Piggyback, ONCE, 1 dose, On Thu11/29/22 at 1845, STAT [facility] LORazepam (ATIVAN) injection 0.5 mg 11-29 23:00: 00 11-29 23:09 :00 No .5mg 0.5 mg, Slow IV Push, ONCE, 1 dose, On Thu11/29/22 at 1800, STAT [facility] lactulose (CEPHULAC) solution 30 mL 11-26 23:00: 00 11-27 01:06 :00 No 30mL 30 mL, Oral, ONCE, 1 dose, On Thu11/26/22 at 1800, ROCKY [facility] iopamidol (ISOVUE 370-500 mL) injection 80 mL 11-26 22:45: 00 11-26 22:45 :00 No [id number] 80mL 80 mL, Intravenou s, ONCE, 1 dose, On Thu11/26/22 at 1745, Routine [facility] NaCl 0.9% (NS) bolus infusion 500 mL 11-26 19:15: 00 11-26 20:30 :00 No 500mL at 999 mL/hr, 500 mL, IV Infusion, ONCE, 1 dose, On Thu11/26/22 at 1415, STAT [facility] doxazosin 2 mg tablet 11-11 00:00: 00 Yes 1mg Take 0.5 tablets by mouth at bedtime. [facility] Vitamin E (E-PHEROL) 400 unit Tab 10-30 14:25: 29 Yes 2{tbl} Take 2 tablets by mouth daily. [facility] latanoprost (XALATAN) 0.005 % ophthalmic drops 10-30 14:25: 29 Yes 1[drp] 1 Drop every evening. [facility] brimonidine (ALPHAGAN) 0.2 % ophthalmic solution 10-30 14:25: 29 Yes 1[drp] Take 1 Drop in the morning and 1 Drop at noon and 1 Drop in the evening. [facility] Fish Oil-DHA-EPA 1,200-144-2 16 mg Cap 10-30 14:25: 29 Yes 1{capsu le} Take 1 capsule by mouth daily. [facility] melatonin 10 mg Tab 10-30 14:25: 29 Yes 10mg Take 10 mg by mouth at bedtime. [facility] acetaminoph en 500 mg tablet 10-30 14:25: 29 Yes 1000mg Take 2 tablets by mouth at bedtime. [facility] mv-mn/iron/ folic acid/herb 190 (VITAMIN D3 COMPLETE ORAL) 10-30 14:25: 29 Yes 5000U/d Take 5,000 Units/day by mouth daily. [facility] timolol 0.25 % ophthalmic solution 10-30 14:25: 29 Yes 1[drp] Place 1 Drop in both eyes in the morning and 1 Drop in the evening. [facility] trazodone HCl (TRAZODONE ORAL) 10-30 14:25: Yes 25mg Take 25 mg by mouth at bedtime. [facility] collagenase (SANTYL) ointment 10-30 14:00: 00 Yes Topical (Apply To Affected Areas), DAILY, First dose (after last modificati on) on Thu10/30/22 at 0900, Until Discontinu ed, Routine [facility] dextrometho yan-daniloaif enesin 10-100 mg/5 mL solution 10-30 00:00: 00 Yes [id number] 10mL Take 10 mL by mouth every 6 (six) hours as needed for Cough. [facility] amoxicillin -pot clavulanate (AUGMENTIN) 250-62.5 mg/5 mL suspension 10-30 00:00: 00 11-07 04:59 :00 No [id number] 500mg Take 10 mL by mouth in the morning and 10 mL at noon and 10 mL in the evening. Do all this for 7 days. [facility] predniSONE 5 mg/5 mL solution 10-30 00:00: 00 11-05 04:59 :00 No [id number] 20mg Take 20 mL by mouth in the morning for 5 days. [facility] codeine-gua ifenesin (ROBITUSSIN AC) 10-100 mg/5 mL oral solution 5 mL 10-29 17:49: 39 Yes [id number] 5mL 5 mL, Oral, Q6HPRN, Starting on Thu10/29/22 at 1249, Until Discontinu ed, Routine, Cough [facility] latanoprost (XALATAN) 0.005 % ophthalmic drops 1 Drop 10-29 02:45: 00 Yes 1[drp] 1 Drop, Both Eyes, QPM, First dose on Thu10/28/22 at 2145, Until Discontinu ed, Routine [facility] brimonidine (ALPHAGAN) 0.2 % ophthalmic solution 1 Drop 10-29 02:45: 00 Yes 1[drp] 1 Drop, Both Eyes, BID, First dose on Thu10/28/22 at 2145, Until Discontinu ed, Routine [facility] timolol (TIMOPTIC) 0.25 % ophthalmic solution 1 Drop 10-29 02:45: 00 Yes 1[drp] 1 Drop, Both Eyes, BID, First dose on Thu10/28/22 at 2145, Until Discontinu ed, [facility] 25 mg 10-29 02:00: 00 Yes 25mg 25 mg, Oral, QHS, First dose on Thu10/28/22 at 2100, Until Discontinu ed [facility] simvastatin (ZOCOR) tablet 40 mg 10-29 02:00: 00 Yes 40mg 40 mg, Oral, QHS, First dose on Thu10/28/22 at 2100, Until Discontinu ed, Routine [facility] risperiDONE (RISPERDAL) tablet 4 mg 10-28 22:00: 00 Yes 4mg 4 mg, Oral, QPM, First dose on Thu10/28/22 at 1700, Until Discontinu ed, Routine [facility] enoxaparin (LOVENOX) injection 40 mg 10-28 14:00: 00 Yes 40mg 40 mg, Subcutaneo us, DAILY, First dose on Thu10/28/22 at 0900, Until Discontinu ed, Routine [facility] omeprazole (PRILOSEC) capsule 20 mg 10-28 14:00: 00 Yes 20mg 20 mg, Oral, DAILY, First dose on Thu10/28/22 at 0900, Until Discontinu ed, Routine [facility] lactobacill us acidophilus tablet 0.5 mg 10-28 14:00: 00 Yes .5mg 0.5 mg, Oral, DAILY, First dose on Thu10/28/22 at 0900, Until Discontinu ed, Routine [facility] docusate (COLACE) 50 mg/5 mL solution 100 mg 10-28 14:00: 00 Yes 100mg 100 mg, Oral, DAILY, First dose on Thu10/28/22 at 0900, Until Discontinu ed, Routine [facility] ipratropium -albuteroL (DUONEB) 0.5 mg-3 mg(2.5 mg base)/3 mL nebulizer solution 3 mL 10-28 13:00: 00 Yes 3mL 3 mL, Inhalation , QID, First dose on Thu10/28/22 at 0800, Until Discontinu ed, Routine [facility] galantamine (REMINYL) tablet 8 mg 10-28 13:00: 00 Yes 8mg 8 mg, Oral, BID, First dose on Thu10/28/22 at 0800, Until Discontinu ed, Routine [facility] glucagon (GLUCAGEN DIAGNOSTIC KIT) injection 1 mg 10-28 12:15: 24 Yes 1mg 1 mg, Intramuscu lar, PRN, Starting on Thu10/28/22 at 0715, Until Discontinu ed, ROCKY, Blood Glucose < or = 70 mg/dL and patient is NPO, unable to swallow or has mental changes. [facility] dextrose 50 % in water (D50W) injection 25 mL 10-28 12:15: 24 Yes 25mL 25 mL, Slow IV Push, PRN, Starting on Thu10/28/22 at 0715, Until Discontinu ed, ROCKY, Blood Glucose < or = 70 mg/dL and patient is NPO, unable to swallow or has mental status changes. [facility] ondansetron (ZOFRAN (PF)) injection 4 mg 10-28 11:43: 22 Yes 4mg 4 mg, Slow IV Push, Q6HPRN, Starting on Thu10/28/22 at 0643, Until Discontinu ed, Routine, Nausea and Vomiting (N/V) [facility] acetaminoph en (TYLENOL) tablet 650 mg 10-28 11:43: 10 Yes 650mg 650 mg, Oral, Q6HPRN, Starting on Thu10/28/22 at 0643, Until Discontinu ed, Routine, Pain (scale 1-3) [facility] acetaminoph en (TYLENOL) tablet 650 mg 10-28 06:45: 00 10-28 07:25 :00 No 650mg 650 mg, Oral, ONCE, 1 dose, On Thu10/28/22 at 0145, ROCKY [facility] NaCl 0.9% (NS) injection 5 mL 10-28 06:37: 55 Yes 5mL 5 mL, Slow IV Push, PRN - SEE INSTRUCTIO NS, Starting on Thu10/28/22 at 0137, Until Discontinu ed, 10 mL [facility] Vitamin E (E-PHEROL) 400 unit Tab 08-27 14:48: 28 Yes 2{tbl} Take 2 tablets by mouth daily. [facility] latanoprost (XALATAN) 0.005 % ophthalmic drops 08-27 14:48: 28 Yes 1[drp] 1 Drop every evening. [facility] brimonidine (ALPHAGAN) 0.2 % ophthalmic solution 08-27 14:48: 28 Yes 1[drp] Take 1 Drop in the morning and 1 Drop at noon and 1 Drop in the evening. [facility] Fish Oil-DHA-EPA 1,200-144-2 16 mg Cap 08-27 14:48: 28 Yes 1{capsu le} Take 1 capsule by mouth daily. [facility] melatonin 10 mg Tab 08-27 14:48: 28 Yes 10mg Take 10 mg by mouth at bedtime. [facility] acetaminoph en 500 mg tablet 08-27 14:48: 28 Yes 1000mg Take 2 tablets by mouth at bedtime. [facility] mv-mn/iron/ folic acid/herb 190 (VITAMIN D3 COMPLETE ORAL) 08-27 14:48: 28 Yes 5000U/d Take 5,000 Units/day by mouth daily. [facility] timolol 0.25 % ophthalmic solution 08-27 14:48: 28 Yes 1[drp] Place 1 Drop in both eyes in the morning and 1 Drop in the evening. [facility] tamsulosin (FLOMAX) 0.4 mg 24 hr capsule 08-27 00:00: 00 01-25 00:00 :00 No [id number] .4mg Take 1 capsule by mouth in the morning. [facility] docusate 50 mg/5 mL solution 07-27 00:00: 00 Yes [id number] 100mg Take 10 mL by mouth in the morning. [facility] collagenase 250 unit/gram ointment 07-27 00:00: 00 08-07 04:59 :00 No [id number] Apply to affected area(s) daily for 10 days. [facility] risperiDONE (RISPERDAL) tablet 2 mg 07-26 22:00: 00 Yes 2mg 2 mg, Oral, QPM, First dose (after last modificati on) on 07/26/22 at 1700, Until Discontinu ed, Routine [facility] Vitamin E (E-PHEROL) 400 unit Tab 07-26 16:43: 26 Yes 2{tbl} Take 2 tablets by mouth daily. [facility] latanoprost (XALATAN) 0.005 % ophthalmic drops 07-26 16:43: 26 Yes 1[drp] 1 Drop every evening. [facility] brimonidine (ALPHAGAN) 0.2 % ophthalmic solution 07-26 16:43: 26 Yes 1[drp] Take 1 Drop in the morning and 1 Drop at noon and 1 Drop in the evening. [facility] Fish Oil-DHA-EPA 1,200-144-2 16 mg Cap 07-26 16:43: 26 Yes 1{capsu le} Take 1 capsule by mouth daily. [facility] melatonin 10 mg Tab 07-26 16:43: 26 Yes 10mg Take 10 mg by mouth at bedtime. [facility] acetaminoph en 500 mg tablet 07-26 16:43: 26 Yes 1000mg Take 2 tablets by mouth at bedtime. [facility] mv-mn/iron/ folic acid/herb 190 (VITAMIN D3 COMPLETE ORAL) 07-26 16:43: 26 Yes 5000U/d Take 5,000 Units/day by mouth daily. [facility] timolol 0.25 % ophthalmic solution 07-26 16:43: 26 Yes 1[drp] Place 1 Drop in both eyes in the morning and 1 Drop in the evening. [facility] amoxicillin -clavulanat e 400-57 mg/5 mL suspension 07-26 00:00: 00 08-22 04:59 :00 No [id number] 800mg Take 10 mL by mouth in the morning and 10 mL in the evening. Do all this for 52 doses. [facility] SODIUM HYPOCHLORIT E 0.025% Soln solution 07-26 00:00: 00 07-28 04:59 :00 No [id number] 1000mL Apply 1,000 mL to area(s) in the morning for 1 dose. [facility] amoxicillin -clavulanat e (AUGMENTIN) 875-125 [...] Tissue
Duration of Therapy: Other (see Comments) [facility] LORazepam (ATIVAN) injection 1 mg 07-25 18:15: 00 07-25 18:04 :00 No 1mg 1 mg, Slow IV Push, ONCE, 1 dose, On Thu07/25/22 at 1315, Routine [facility] iopamidol (ISOVUE 370-500 mL) injection 80 mL 07-25 18:09: 00 07-25 18:11 :00 No [id number] 80mL 80 mL, Intravenou s, ONCE, 1 dose, On Thu07/25/22 at 1330, Routine [facility] amoxicillin -clavulanat e (AUGMENTIN) 875-125 mg per tablet 1 tablet 07-25 04:00: 00 07-25 12:22 :33 No 1{tbl} 1 tablet, Oral, Q12H, 56 doses, First dose on Thu07/24/22 at 2300, Last dose on Thu08/21/22 at 0800, Routine
Reason for Anti-Infec tive: Documented Infection< br>Documen nichole Infection Site: Skin / Soft Tissue
Duration of Therapy: Other (see Comments) [facility] levalbutero l (XOPENEX) nebulizer solution 0.63 mg 07-25 02:51: 00 Yes .63mg 0.63 mg, Inhalation , TIDPRN, Starting on Thu07/24/22 at 2151, Until Discontinu ed, Routine, Wheezing, Shortness of Breath [facility] ipratropium (ATROVENT) 0.02 % nebulizer solution 0.5 mg 07-25 02:22: 54 Yes .5mg 0.5 mg, Inhalation , Q4HPRN, Starting on Thu07/24/22 at 212, Until Discontinu ed, Routine, Wheezing, Shortness of Breath, Bronchospa sm, Chest tightness [facility] codeine-gua ifenesin (ROBITUSSIN AC) 10-100 mg/5 mL oral solution 5 mL 07-25 02:22: 34 Yes 5mL 5 mL, Oral, Q6HPRN, Starting on Thu07/24/22 at 2122, Until Discontinu ed, Routine, Cough [facility] sodium hypochlorit e 0.25% (DAKIN'S SOLUTION) solution 07-24 22:00: 00 07-24 21:28 :00 No Topical, ONCE, 1 dose, On Thu07/24/22 at 1700, Routine [facility] fluconazole (DIFLUCAN) Piggyback 200 mg 07-24 16:15: 00 07-26 16:20 :00 No 200mg at 100 mL/hr, IV Piggyback, Q24H ABX, 3 doses, First dose on Thu07/24/22 at 1115, Last dose on Thu07/26/22 at 1115, ROCKY
Do Not Refrigerat e.
[facility] piperacilli n-tazobacta m (ZOSYN) 3.375 [...] Soft tissue
Duration of therapy: 72 hours [facility] vancomycin (VANCOCIN) 1,000 mg in [...] Soft Tissue
Duration of Therapy: 7 days [facility] Vitamin E (dl, acetate) capsule 800 Units 07-23 14:00: 00 Yes 800U 800 Units, Oral, DAILY, First dose on Thu07/23/22 at 0900, Until Discontinu ed, Routine [facility] lactobacill us acidophilus tablet 0.5 mg 07-23 14:00: 00 Yes .5mg 0.5 mg, Oral, DAILY, First dose on Thu07/23/22 at 0900, Until Discontinu ed, Routine [facility] docusate (COLACE) 50 mg/5 mL solution 100 mg 07-22 15:15: 00 Yes 100mg 100 mg, Oral, DAILY, First dose on Thu07/22/22 at 1015, Until Discontinu ed, Routine [facility] QUEtiapine (SEROQUEL) tablet 25 mg 07-22 04:30: 00 07-22 03:55 :00 No 25mg 25 mg, Oral, ONCE, 1 dose, On Thu07/21/22 at 2330, Routine [facility] simvastatin (ZOCOR) tablet 40 mg 07-22 02:00: 00 Yes 40mg 40 mg, Oral, QHS, First dose on Thu07/21/22 at 2100, Until Discontinu ed, Routine [facility] latanoprost (XALATAN) 0.005 % ophthalmic drops 1 Drop 07-21 22:00: 00 Yes 1[drp] 1 Drop, Both Eyes, QPM, First dose on Thu07/21/22 at 1700, Until Discontinu ed, Routine [facility] piperacilli n-tazobacta m (ZOSYN) 3.375 [...]
Duration of therapy: 72 hours [facility] collagenase (SANTYL) ointment 07-21 15:45: 00 Yes Topical (Apply To Affected Areas), DAILY, First dose on Thu07/21/22 at 1045, Until Discontinu ed, Routine [facility] galantamine (REMINYL) tablet 8 mg 07-21 15:15: 00 Yes 8mg 8 mg, Oral, BID, First dose on Thu07/21/22 at 1015, Until Discontinu ed, Routine [facility] tamsulosin (FLOMAX) capsule 0.4 mg 07-21 14:00: 00 Yes .4mg 0.4 mg, Oral, DAILY, First dose on Thu07/21/22 at 0900, Until Discontinu ed, Routine [facility] omeprazole (PRILOSEC) capsule 20 mg 07-21 14:00: 00 Yes 20mg 20 mg, Oral, DAILY, First dose on Thu07/21/22 at 0900, Until Discontinu ed, Routine [facility] enoxaparin (LOVENOX) injection 40 mg 07-21 14:00: 00 Yes 40mg 40 mg, Subcutaneo us, DAILY, First dose on Thu07/21/22 at 0900, Until Discontinu ed, Routine [facility] docusate (COLACE) capsule 100 mg 07-21 14:00: 00 07-22 15:13 :38 No 100mg 100 mg, Oral, DAILY, First dose on Thu07/21/22 at 0900, Until Discontinu ed, Routine [facility] timolol (TIMOPTIC) 0.5 % ophthalmic solution 1 Drop 07-21 13:30: 00 Yes 1[drp] 1 Drop, Both Eyes, BID, First dose on Thu07/21/22 at 0830, Until Discontinu ed, Routine [facility] brimonidine (ALPHAGAN) 0.2 % ophthalmic solution 1 Drop 07-21 13:00: 00 Yes 1[drp] 1 Drop, Both Eyes, TID, First dose on Thu07/21/22 at 0800, Until Discontinu ed, Routine [facility] melatonin (MELATIN) tablet 9 mg 07-21 05:15: 00 Yes 9mg 9 mg, Oral, QHS, First dose (after last modificati on) on Thu07/21/22 at 0015, Until Discontinu ed [facility] acetaminoph en (TYLENOL) tablet 1,000 mg 07-21 05:00: 00 Yes 1000mg 1,000 mg, Oral, QHS, First dose (after last modificati on) on Thu07/21/22 at 0000, Until Discontinu ed, Routine [facility] risperiDONE (RISPERDAL) tablet 4 mg 07-21 05:00: 00 07-26 02:28 :57 No 4mg 4 mg, Oral, QPM, First dose (after last modificati on) on Thu07/21/22 at 0000, Until Discontinu ed, Routine [facility] piperacilli n-tazobacta m (ZOSYN) 3.375 [...] Soft tissue
Duration of therapy: 72 hours [facility] NaCl 0.9% (NS) bolus infusion 1,000 mL 07-21 03:15: 00 07-21 02:30 :00 No 1000mL at 999 mL/hr, 1,000 mL, IV Piggyback, ONCE, 1 dose, On Thu07/20/22 at 2215, STAT [facility] ondansetron (ZOFRAN (PF)) injection 4 mg 07-21 02:47: 49 Yes 4mg 4 mg, Slow IV Push, Q6HPRN, Starting on Thu07/20/22 at 2147, Until Discontinu ed, Routine, Nausea and Vomiting (N/V) [facility] HYDROcodone -acetaminop hen (NORCO) 10-325 mg tablet 1 tablet 07-21 02:47: 43 Yes 1{tbl} 1 tablet, Oral, Q6HPRN, Starting on Thu07/20/22 at 2147, Until Discontinu ed, Routine, Pain (scale 7-10) [facility] acetaminoph en (TYLENOL) tablet 650 mg 07-21 02:47: 34 Yes 650mg 650 mg, Oral, Q6HPRN, Starting on Thu07/20/22 at 2147, Until Discontinu ed, Routine, Pain (scale 1-3) [facility] NaCl 0.9% (NS) bolus infusion 1,000 mL 07-18 21:00: 00 07-18 22:16 :00 No 1000mL at 999 mL/hr, 1,000 mL, IV Piggyback, ONCE, 1 dose, On Thu07/18/22 at 1600, STAT [facility] piperacilli n-tazobacta m (ZOSYN) 3.375 g in NaCl 0.9% (NS) 100 mL MINI-BAG 07-18 20:00: 00 07-18 21:09 :00 No 3.375g 3.375 g, IV Piggyback, ONCE, 1 dose, On Thu07/18/22 at 1500, Administer over 30 Minutes, 100 mL
Reas on for Anti-Infec tive: Documented Infection< br>Documen nichole Infection Site: Skin / Soft Tissue
Duration of Therapy: 7 days [facility] cefpodoxime 200 mg tablet 07-18 00:00: 00 08-02 04:59 :00 No [id number] 200mg Take 1 tablet by mouth in the morning and 1 tablet in the evening. Do all this for 14 days. [facility] levoFLOXaci n 750 mg tablet 07-18 00:00: 00 07-29 04:59 :00 No [id number] 750mg Take 1 tablet by mouth every 24 (twenty-fo ur) hours for 10 days. [facility] iopamidol (ISOVUE 370-500 mL) injection 78 mL 06-10 19:45: 00 06-10 19:45 :00 No [id number] 78mL 78 mL, Intravenou s, ONCE, 1 dose, On Thu06/10/22 at 1345, Routine [facility] ondansetron (ZOFRAN (PF)) injection 4 mg 06-10 17:45: 00 06-10 17:13 :00 No 4mg 4 mg, Slow IV Push, ONCE, 1 dose, On Thu06/10/22 at 1145, ROCKY [facility] polyethylen e glycol 3350 powder 17 g 05-28 15:00: 00 Yes 17g 17 g, Oral, DAILY, First dose on Thu05/28/22 at 0900, Until Discontinu ed, Routine [facility] tamsulosin (FLOMAX) capsule 0.4 mg 05-28 15:00: 00 Yes .4mg 0.4 mg, Oral, DAILY, First dose on Thu05/28/22 at 0900, Until Discontinu ed, Routine [facility] omeprazole (PRILOSEC) capsule 20 mg 05-28 15:00: 00 Yes 20mg 20 mg, Oral, DAILY, First dose on Thu05/28/22 at 0900, Until Discontinu ed, Routine [facility] lactobacill us acidophilus tablet 0.5 mg 05-28 15:00: 00 Yes .5mg 0.5 mg, Oral, DAILY, First dose on Thu05/28/22 at 0900, Until Discontinu ed, Routine [facility] Vitamin E (E-PHEROL) 400 unit Tab 05-28 14:50: 45 Yes 2{tbl} Take 2 tablets by mouth daily. [facility] latanoprost (XALATAN) 0.005 % ophthalmic drops 05-28 14:50: 45 Yes 1[drp] 1 Drop every evening. [facility] brimonidine (ALPHAGAN) 0.2 % ophthalmic solution 05-28 14:50: 45 Yes 1[drp] 1 Drop 3 (three) times daily. [facility] Fish Oil-DHA-EPA 1,200-144-2 16 mg Cap 05-28 14:50: 45 Yes 1{capsu le} Take 1 capsule by mouth daily. [facility] melatonin 10 mg Tab 05-28 14:50: 45 Yes 10mg Take 10 mg by mouth at bedtime. [facility] acetaminoph en 500 mg tablet 05-28 14:50: 45 Yes 1000mg Take 1,000 mg by mouth at bedtime. [facility] mv-mn/iron/ folic acid/herb 190 (VITAMIN D3 COMPLETE ORAL) 05-28 14:50: 45 Yes 5000U/d Take 5,000 Units/day by mouth daily. [facility] timolol 0.25 % ophthalmic solution 05-28 14:50: 45 Yes 1[drp] Place 1 Drop in both eyes 2 (two) times daily. [facility] acetaminoph en (TYLENOL) tablet 1,000 mg 05-28 03:00: 00 Yes 1000mg 1,000 mg, Oral, QHS, First dose on Thu05/27/22 at 2100, Until Discontinu ed, Routine [facility] simvastatin (ZOCOR) tablet 40 mg 05-28 03:00: 00 Yes 40mg 40 mg, Oral, QHS, First dose on Thu05/27/22 at 2100, Until Discontinu ed, Routine [facility] melatonin (MELATIN) tablet 9 mg 05-28 03:00: 00 Yes 9mg 9 mg, Oral, QHS, First dose on Thu05/27/22 at 2100, Until Discontinu ed [facility] docusate (COLACE) capsule 100 mg 05-28 02:00: 00 Yes 100mg 100 mg, Oral, BID, First dose on Thu05/27/22 at 2000, Until Discontinu ed, Routine [facility] galantamine (REMINYL) tablet 8 mg 05-28 02:00: 00 Yes 8mg 8 mg, Oral, BID, First dose on Thu05/27/22 at 2000, Until Discontinu ed, Routine [facility] timolol (TIMOPTIC) 0.5 % ophthalmic solution 1 Drop 05-28 02:00: 00 Yes 1[drp] 1 Drop, Both Eyes, BID, First dose on Thu05/27/22 at 2000, Until Discontinu ed [facility] amoxicillin -clavulanat e (AUGMENTIN) 875-125 mg per tablet 05-28 00:00: 00 06-02 05:59 :00 No [id number] 1{tbl} Take 1 tablet by mouth in the morning and 1 tablet in the evening. Do all this for 4 days. [facility] risperiDONE (RISPERDAL) tablet 4 mg 05-27 23:00: 00 Yes 4mg 4 mg, Oral, QPM, First dose on Thu05/27/22 at 1700, Until Discontinu ed, Routine [facility] latanoprost (XALATAN) 0.005 % ophthalmic drops 1 Drop 05-27 23:00: 00 Yes 1[drp] 1 Drop, Both Eyes, QPM, First dose on Thu05/27/22 at 1700, Until Discontinu ed, Routine [facility] piperacilli n-tazobacta m (ZOSYN) 3.375 [...] Abdominal< br>Duratio n of Therapy: 7 days [facility] lactulose (CEPHULAC) solution 30 mL 05-27 15:45: 00 05-27 16:31 :00 No 30mL 30 mL, Oral, ONCE, 1 dose, On Thu05/27/22 at 0945, Routine [facility] enoxaparin (LOVENOX) injection 40 mg 05-27 15:00: 00 Yes 40mg 40 mg, Subcutaneo us, DAILY, First dose on Thu05/27/22 at 0900, Until Discontinu ed, Routine [facility] aspirin 81 mg EC tablet 05-27 11:23: 35 05-27 00:00 :00 No 81mg Take 81 mg by mouth daily. [facility] piperacilli n-tazobacta m (ZOSYN) 3.375 g in NaCl 0.9% (NS) 100 mL MINI-BAG 05-27 09:30: 00 05-27 10:36 :00 No 3.375g 3.375 g, IV Piggyback, ONCE, 1 dose, On Thu05/27/22 at 0330, Administer over 30 Minutes, 100 mL
Reas on for Anti-Infec tive: Documented Infection< br>Documen nichole Infection Site: Abdominal< br>Duratio n of Therapy: 7 days [facility] NaCl 0.9% (NS) IV infusion 1,000 mL 05-27 04:15: 00 05-27 12:39 :00 No 1000mL at 125 mL/hr, IV Infusion, ONCE, 1 dose, On Thu05/26/22 at 2215, Routine [facility] ondansetron (ZOFRAN (PF)) injection 4 mg 05-27 03:29: 20 Yes 4mg 4 mg, Slow IV Push, Q6HPRN, Starting on Thu05/26/22 at 212, Until Discontinu ed, Routine, Nausea and Vomiting (N/V) [facility] traMADoL (ULTRAM) tablet 50 mg 05-27 03:29: 11 05-29 03:28 :11 No 50mg 50 mg, Oral, Q8HPRN, Starting on Thu05/26/22 at 2128, Until Thu05/28/22 at 2127, Routine, Pain (scale 4-6) [facility] acetaminoph en (TYLENOL) tablet 650 mg 05-27 03:29: 08 Yes 650mg 650 mg, Oral, Q6HPRN, Starting on Thu05/26/22 at 2128, Until Discontinu ed, Routine, Pain (scale 1-3) [facility] cefTRIAXone (ROCEPHIN) 1,000 mg in NaCl 0.9% (NS) 100 mL MINI-BAG 05-27 02:45: 00 05-27 03:18 :00 No 1000mg 1,000 mg, IV Piggyback, ONCE, 1 dose, On Thu05/26/22 at 2045, Administer over 30 Minutes, 100 mL
Reas on for Anti-Infec tive: Documented Infection< br>Documen nichole Infection Site: Abdominal< br>Duratio n of Therapy: 7 days [facility] ondansetron (ZOFRAN (PF)) injection 4 mg 05-27 00:15: 00 05-27 00:10 :00 No 4mg 4 mg, Slow IV Push, ONCE, 1 dose, On Thu05/26/22 at 1815, ROCKY [facility] ciprofloxac in HCl (CIPRO) tablet 500 mg 05-06 03:00: 00 05-11 02:59 :00 No 500mg 500 mg, Oral, Q12H ABX, 10 doses, First dose on Thu05/05/22 at 2100, Last dose on Thu05/10/22 at 0900, ROCKY
Re ason for Anti-Infec tive: Documented Infection< br>Documen nichole Infection Site: Abdominal< br>Duratio n of Therapy: 7 days [facility] metroNIDAZO LE (FLAGYL) tablet 500 mg 05-06 02:00: 00 05-11 01:59 :00 No 500mg 500 mg, Oral, Q12H, 10 doses, First dose on Thu05/05/22 at 2000, Last dose on Thu05/10/22 at 0800, Routine
Reason for Anti-Infec tive: Documented Infection< br>Documen nichole Infection Site: Abdominal< br>Duratio n of Therapy: 7 days [facility] lactobacill us acidophilus 05-06 00:00: 00 Yes .5mg Take 1 tablet by mouth in the morning. [facility] hydroCHLORO thiazide 12.5 mg tablet 05-06 00:00: 00 05-26 00:00 :00 No 12.5mg Take 1 tablet by mouth in the morning. [facility] Vitamin E (E-PHEROL) 400 unit Tab 05-05 18:25: 31 Yes 2{tbl} Take 2 tablets by mouth daily. [facility] aspirin 81 mg EC tablet 05-05 18:25: 31 Yes 81mg Take 81 mg by mouth daily. [facility] latanoprost (XALATAN) 0.005 % ophthalmic drops 05-05 18:25: 31 Yes 1[drp] 1 Drop every evening. [facility] brimonidine (ALPHAGAN) 0.2 % ophthalmic solution 05-05 18:25: 31 Yes 1[drp] 1 Drop 3 (three) times daily. [facility] Fish Oil-DHA-EPA 1,200-144-2 16 mg Cap 05-05 18:25: 31 Yes 1{capsu le} Take 1 capsule by mouth daily. [facility] melatonin 10 mg Tab 05-05 18:25: 31 Yes 10mg Take 10 mg by mouth at bedtime. [facility] acetaminoph en 500 mg tablet 05-05 18:25: 31 Yes 1000mg Take 1,000 mg by mouth at bedtime. [facility] diphenhydrA MINE (BENADRYL) tablet 25 mg 05-05 10:43: 00 Yes 25mg 25 mg, Oral, Q6HPRN, Starting on 05/05/22 at 0443, Until Discontinu ed, Routine, Itching [facility] ciprofloxac in HCl 500 mg tablet 05-05 00:00: 00 05-26 00:00 :00 No 500mg Take 1 tablet by mouth every 12 (twelve) hours. [facility] metroNIDAZO LE 500 mg tablet 05-05 00:00: 00 05-26 00:00 :00 No 500mg Take 1 tablet by mouth every 12 (twelve) hours. [facility] diphenhydrA MINE (BENADRYL) tablet 25 mg 05-04 16:15: 00 05-04 16:25 :00 No 25mg 25 mg, Oral, ONCE, 1 dose, On 05/04/22 at 1015, Routine [facility] simvastatin (ZOCOR) tablet 40 mg 05-04 03:00: 00 Yes 40mg 40 mg, Oral, QHS, First dose on 05/03/22 at 2100, Until Discontinu ed, Routine [facility] risperiDONE (RISPERDAL) tablet 2 mg 05-03 23:00: 00 Yes 2mg 2 mg, Oral, QPM, First dose (after last modificati on) on 05/03/22 at 1700, Until Discontinu ed, Routine [facility] latanoprost (XALATAN) 0.005 % ophthalmic drops 1 Drop 05-03 23:00: 00 Yes 1[drp] 1 Drop, Both Eyes, QPM, First dose on 05/03/22 at 1700, Until Discontinu ed, [facility]us [facility] 0.5 mg 05-03 18:00: 00 Yes .5mg 0.5 mg, Oral, DAILY, First dose on 05/03/22 at 1200, Until Discontinu ed, [facility] enoxaparin (LOVENOX) injection 40 mg 05-03 15:00: 00 Yes 40mg 40 mg, Subcutaneo us, DAILY, First dose on 05/03/22 at 0900, Until Discontinu ed, [facility] tamsulosin (FLOMAX) capsule 0.4 mg 05-03 15:00: 00 Yes .4mg 0.4 mg, Oral, DAILY, First dose on 05/03/22 at 0900, Until Discontinu ed, Routine [facility] omeprazole (PRILOSEC) capsule 20 mg 05-03 15:00: 00 Yes 20mg 20 mg, Oral, DAILY, First dose on 05/03/22 at 0900, Until Discontinu ed, Routine [facility] hydroCHLORO thiazide (ESIDRIX) tablet 12.5 mg 05-03 15:00: 00 Yes 12.5mg 12.5 mg, Oral, DAILY, First dose on 05/03/22 at 0900, Until Discontinu ed [facility] aspirin EC tablet 81 mg 05-03 15:00: 00 Yes 81mg 81 mg, Oral, DAILY, First dose on 05/03/22 at 0900, Until Discontinu ed, Routine [facility] brimonidine (ALPHAGAN) 0.2 % ophthalmic solution 1 Drop 05-03 14:00: 00 Yes 1[drp] 1 Drop, Both Eyes, TID, First dose on 05/03/22 at 0800, Until Discontinu ed, Routine [facility] metroNIDAZO LE in NaCl (iso-os) [...] Abdominal< br>Duratio n of Therapy: 7 days [facility] ciprofloxac in in 5 % dextrose (CIPRO) piggyback 400 mg 05-03 06:15: 00 05-05 20:29 :12 No 400mg 400 mg, IV Piggyback, at 200 mL/hr Administer over 60 Minutes, Q12H ABX, First dose on Thu05/03/22 at 0015, Until Discontinu ed, Routine
Reason for Anti-Infec tive: Documented Infection< br>Docu mented Infection Site: Abdominal< br>Duratio n of Therapy: 7 days [facility] haloperidol lactate (HALDOL) injection 2.5 mg 05-03 05:53: 13 Yes 2.5mg 2.5 mg, Slow IV Push, PRN, 2 doses, Starting on Thu05/02/22 at 2353, Until Discontinu ed, Routine, Psychosis [facility] galantamine (REMINYL) tablet 8 mg 05-03 05:15: 00 Yes 8mg 8 mg, Oral, BID, First dose on Thu05/02/22 at 2315, Until Discontinu ed, Routine
Reason for non-formul ramsey use: PATIENT CURRENTLY TAKING NONFORMULA RY PRODUCT [facility] melatonin (MELATIN) tablet 9 mg 05-03 05:15: 00 Yes 9mg 9 mg, Oral, QHS, First dose (after last modificati on) on Thu05/02/22 at 2315, Until Discontinu ed [facility] risperiDONE (RISPERDAL) tablet 4 mg 05-03 05:15: 00 05-03 05:26 :23 No 4mg 4 mg, Oral, QPM, First dose (after last modificati on) on Thu05/02/22 at 2315, Until Discontinu ed, Routine [facility] ondansetron (ZOFRAN (PF)) injection 4 mg 05-03 04:53: 40 Yes 4mg 4 mg, Slow IV Push, Q6HPRN, Starting on Thu05/02/22 at 2253, Until Discontinu ed, Routine, Nausea and Vomiting (N/V) [facility] traMADoL (ULTRAM) tablet 50 mg 05-03 04:53: 31 05-05 04:52 :31 No 50mg 50 mg, Oral, Q8HPRN, Starting on Thu05/02/22 at 2253, Until Thu05/04/22 at 2252, Routine, Pain (scale 4-6) [facility] acetaminoph en (TYLENOL) tablet 650 mg 05-03 04:53: 29 Yes 650mg 650 mg, Oral, Q6HPRN, Starting on Thu05/02/22 at 2253, Until Discontinu ed, Routine, Pain (scale 1-3) [facility] iopamidol (ISOVUE 370-500 mL) injection 100 mL 05-03 02:45: 00 05-03 01:49 :00 No [id number] 100mL 100 mL, Intravenou s, ONCE, 1 dose, On Thu05/02/22 at 2045, Routine [facility] NaCl 0.9% (NS) bolus infusion 1,000 mL 05-03 01:45: 00 05-03 00:44 :00 No 1000mL at 999 mL/hr, 1,000 mL, IV Piggyback, ONCE, 1 dose, On Thu05/02/22 at 1945, STAT [facility] hydroCHLORO thiazide 12.5 mg capsule 05-02 22:53: 50 05-02 00:00 :00 No 12.5mg Take 12.5 mg by mouth daily. [facility] amoxicillin 500 mg tablet 1-13 00:00: 00 04-29 05:59 :00 No [id number] 500mg Take 1 tablet by mouth in the morning and 1 tablet in the evening. Do all this for 10 days. [facility] OMEPRAZOLE 20 mg capsule 10-24 00:00: 00 Yes [id number] Take 1 capsule by mouth once daily [facility] SIMVASTATIN 40 mg tablet 09-24 00:00: 00 01-29 00:00 :00 No [id number] TAKE 1 TABLET BY MOUTH ONCE DAILY AT BEDTIME [facility] galantamine 8 mg tablet 07-31 00:00: 00 Yes [id number] 8mg Take 1 tablet by mouth 2 (two) times daily. [facility] tamsulosin (FLOMAX) 0.4 mg 24 hr capsule 07-29 00:00: 00 08-27 00:00 :00 No [id number] .4mg Take 1 capsule by mouth daily. [facility] hydroCHLORO thiazide 12.5 mg capsule 2020-04 015 15:34: 14 Yes 12.5mg Take 12.5 mg by mouth daily. [facility] Vitamin E (E-PHEROL) 400 unit Tab 08-28 14:21: 44 Yes 1{tbl} Take 1 tablet by mouth daily. [facility] aspirin 81 mg EC tablet 08-28 14:21: 44 Yes 81mg Take 81 mg by mouth daily. [facility] latanoprost (XALATAN) 0.005 % ophthalmic drops 08-28 14:21: 44 Yes 1[drp] 1 Drop every evening. [facility] galantamine 12 mg tablet 08-28 00:00: 00 05-02 00:00 :00 No [id number] 12mg Take 1 tablet by mouth 2 (two) times daily. [facility] risperiDONE (RISPERDAL) 2 mg tablet 2019-04 208 00:00: 00 Yes [id number] 4mg Take 2 tablets by mouth every evening. [facility] brimonidine (ALPHAGAN) 0.2 % ophthalmic solution 2017-04 13:40: 32 Yes 1[drp] 1 Drop 3 (three) times daily. [facility] Fish Oil-DHA-EPA 1,200-144-2 16 mg Cap 2017-04 13:40: 32 Yes 1{capsu le} Take 1 capsule by mouth daily. [facility] Immunizations Ordered Immunization Name Filled Immunization Name Date Status Comments Source Influenza High Dose 2021-12-27 00:00:00 Completed [facility] Influenza High Dose 2021-12-27 00:00:00 Completed [facility] Influenza High Dose 2021-12-27 00:00:00 Completed [facility] Influenza High Dose 2021-12-27 00:00:00 Completed [facility] Influenza High Dose 2021-12-27 00:00:00 Completed [facility] Influenza High Dose 2021-12-27 00:00:00 Completed [facility] Influenza High Dose 2021-12-27 00:00:00 Completed [facility] Influenza High Dose 2021-12-27 00:00:00 Completed [facility] Influenza High Dose 2021-12-27 00:00:00 Completed [facility] Influenza High Dose 2021-12-27 00:00:00 Completed [facility] Influenza High Dose 2021-12-27 00:00:00 Completed [facility] Influenza High Dose 2021-12-27 00:00:00 Completed [facility] Influenza High Dose 2021-12-27 00:00:00 Completed [facility] Influenza High Dose 2021-12-27 00:00:00 Completed [facility] Influenza High Dose 2021-12-27 00:00:00 Completed [facility] Influenza High Dose 2021-12-27 00:00:00 Completed [facility] Influenza High Dose 2021-12-27 00:00:00 Completed [facility] Influenza High Dose 2021-12-27 00:00:00 Completed [facility] Influenza High Dose 2021-12-27 00:00:00 Completed [facility] Influenza High Dose 2021-12-27 00:00:00 Completed [facility] Influenza High Dose 2021-12-27 00:00:00 Completed [facility] Influenza Virus Vaccine 2021-12-18 00:00:00 Completed [facility] Influenza Virus Vaccine 2021-12-18 00:00:00 Completed [facility] Influenza Virus Vaccine 2021-12-18 00:00:00 Completed [facility] Influenza Virus Vaccine 2021-12-18 00:00:00 Completed [facility] Influenza Virus Vaccine 2021-12-18 00:00:00 Completed [facility] Influenza Virus Vaccine 2021-12-18 00:00:00 Completed [facility] Influenza Virus Vaccine 2021-12-18 00:00:00 Completed [facility] Influenza Virus Vaccine 2021-12-18 00:00:00 Completed [facility] Influenza Virus Vaccine 2021-12-18 00:00:00 Completed [facility] SARS-COV-2 COVID-19 VACCINE - (MODERNA) 2021-09-20 00:00:00 Completed [facility] SARS-COV-2 COVID-19 VACCINE - (MODERNA) 2021-09-20 00:00:00 Completed [facility] SARS-COV-2 COVID-19 VACCINE - (MODERNA) 2021-09-20 00:00:00 Completed [facility] SARS-COV-2 COVID-19 VACCINE - (MODERNA) 2021-09-20 00:00:00 Completed [facility] SARS-COV-2 COVID-19 VACCINE - (MODERNA) 2021-09-20 00:00:00 Completed [facility] SARS-COV-2 COVID-19 VACCINE - (MODERNA) 2021-09-20 00:00:00 Completed [facility] SARS-COV-2 COVID-19 VACCINE - (MODERNA) 2021-09-20 00:00:00 Completed [facility] SARS-COV-2 COVID-19 VACCINE - (MODERNA) 2021-09-20 00:00:00 Completed [facility] SARS-COV-2 COVID-19 VACCINE - (MODERNA) 2021-09-20 00:00:00 Completed [facility] SARS-COV-2 COVID-19 VACCINE - (MODERNA) 2021-04-02 00:00:00 Completed [facility] SARS-COV-2 COVID-19 VACCINE - (MODERNA) 2021-04-02 00:00:00 Completed [facility] SARS-COV-2 COVID-19 VACCINE - (MODERNA) 2021-04-02 00:00:00 Completed [facility] SARS-COV-2 COVID-19 VACCINE - (MODERNA) 2021-04-02 00:00:00 Completed [facility] SARS-COV-2 COVID-19 VACCINE - (MODERNA) 2021-04-02 00:00:00 Completed [facility] SARS-COV-2 COVID-19 VACCINE - (MODERNA) 2021-04-02 00:00:00 Completed [facility] SARS-COV-2 COVID-19 VACCINE - (MODERNA) 2021-04-02 00:00:00 Completed [facility] SARS-COV-2 COVID-19 VACCINE - (MODERNA) 2021-04-02 00:00:00 Completed [facility] SARS-COV-2 COVID-19 VACCINE - (MODERNA) 2021-04-02 00:00:00 Completed [facility] Influenza High Dose Quad 2020-12-27 00:00:00 Completed [facility] Influenza High Dose Quad 2020-12-27 00:00:00 Completed [facility] Influenza High Dose Quad 2020-12-27 00:00:00 Completed [facility] Influenza High Dose Quad 2020-12-27 00:00:00 Completed [facility] Influenza High Dose Quad 2020-12-27 00:00:00 Completed [facility] Influenza High Dose Quad 2020-12-27 00:00:00 Completed [facility] Influenza High Dose Quad 2020-12-27 00:00:00 Completed [facility] Influenza High Dose Quad 2020-12-27 00:00:00 Completed [facility] Influenza High Dose Quad 2020-12-27 00:00:00 Completed [facility] SARS-COV-2 COVID-19 MODERNA 12+ YRS VACCINE 2020-06-07 00:00:00 Completed [facility] SARS-COV-2 COVID-19 MODERNA 12+ YRS VACCINE 2020-06-07 00:00:00 Completed [facility] SARS-COV-2 COVID-19 MODERNA 12+ YRS VACCINE 2020-06-07 00:00:00 [facility] [facility] SARS-COV-2 COVID-19 MODERNA 12+ YRS VACCINE 2020-06-07 00:00:00 Completed [facility] SARS-COV-2 COVID-19 MODERNA 12+ YRS VACCINE 2020-06-07 00:00:00 Completed [facility] SARS-COV-2 COVID-19 MODERNA 12+ YRS VACCINE 2020-06-07 00:00:00 Completed [facility] SARS-COV-2 COVID-19 MODERNA 12+ YRS VACCINE 2020-06-07 00:00:00 Completed [facility] SARS-COV-2 COVID-19 MODERNA 12+ YRS VACCINE 2020-06-07 00:00:00 Completed [facility] SARS-COV-2 COVID-19 MODERNA 12+ YRS VACCINE 2020-06-07 00:00:00 Completed [facility] SARS-COV-2 COVID-19 MODERNA 12+ YRS VACCINE 2020-06-07 00:00:00 Completed [facility] SARS-COV-2 COVID-19 MODERNA 12+ YRS VACCINE 2020-06-07 00:00:00 Completed [facility] SARS-COV-2 COVID-19 MODERNA 12+ YRS VACCINE 2020-06-07 00:00:00 Completed [facility] SARS-COV-2 COVID-19 MODERNA 12+ YRS VACCINE 2020-06-07 00:00:00 Completed [facility] SARS-COV-2 COVID-19 MODERNA 12+ YRS VACCINE 2020-06-07 00:00:00 Completed [facility] SARS-COV-2 COVID-19 MODERNA 12+ YRS VACCINE 2020-06-07 00:00:00 Completed [facility] SARS-COV-2 COVID-19 MODERNA 12+ YRS VACCINE 2020-06-07 00:00:00 Completed [facility] SARS-COV-2 COVID-19 MODERNA 12+ YRS VACCINE 2020-06-07 00:00:00 Completed [facility] SARS-COV-2 COVID-19 MODERNA 12+ YRS VACCINE 2020-06-07 00:00:00 Completed [facility] SARS-COV-2 COVID-19 MODERNA 12+ YRS VACCINE 2020-06-07 00:00:00 Completed [facility] SARS-COV-2 COVID-19 MODERNA 12+ YRS VACCINE 2020-06-07 00:00:00 Completed [facility] SARS-COV-2 COVID-19 MODERNA 12+ YRS VACCINE 2020-06-07 00:00:00 Completed [facility] SARS-COV-2 COVID-19 MODERNA 12+ YRS VACCINE 2020-06-07 00:00:00 Completed [facility] SARS-COV-2 COVID-19 MODERNA 12+ YRS VACCINE 2020-06-07 00:00:00 Completed [facility] SARS-COV-2 COVID-19 MODERNA 12+ YRS VACCINE 2020-06-07 00:00:00 Completed [facility] SARS-COV-2 COVID-19 MODERNA 12+ YRS VACCINE 2020-05-10 00:00:00 Completed [facility] SARS-COV-2 COVID-19 MODERNA 12+ YRS VACCINE 2020-05-10 00:00:00 Completed [facility] SARS-COV-2 COVID-19 MODERNA 12+ YRS VACCINE 2020-05-10 00:00:00 Completed [facility] SARS-COV-2 COVID-19 MODERNA 12+ YRS VACCINE 2020-05-10 00:00:00 Completed [facility] SARS-COV-2 COVID-19 MODERNA 12+ YRS VACCINE 2020-05-10 00:00:00 Completed [facility] SARS-COV-2 COVID-19 MODERNA 12+ YRS VACCINE 2020-05-10 00:00:00 Completed [facility] SARS-COV-2 COVID-19 MODERNA 12+ YRS VACCINE 2020-05-10 00:00:00 Completed [facility] SARS-COV-2 COVID-19 MODERNA 12+ YRS VACCINE 2020-05-10 00:00:00 Completed [facility] SARS-COV-2 COVID-19 MODERNA 12+ YRS VACCINE 2020-05-10 00:00:00 Completed [facility] SARS-COV-2 COVID-19 MODERNA 12+ YRS VACCINE 2020-05-10 00:00:00 Completed [facility] SARS-COV-2 COVID-19 MODERNA 12+ YRS VACCINE 2020-05-10 00:00:00 Completed [facility] SARS-COV-2 COVID-19 MODERNA 12+ YRS VACCINE 2020-05-10 00:00:00 Completed [facility] SARS-COV-2 COVID-19 MODERNA 12+ YRS VACCINE 2020-05-10 00:00:00 Completed [facility] SARS-COV-2 COVID-19 MODERNA 12+ YRS VACCINE 2020-05-10 00:00:00 Completed [facility] SARS-COV-2 COVID-19 MODERNA 12+ YRS VACCINE 2020-05-10 00:00:00 Completed [facility] SARS-COV-2 COVID-19 MODERNA 12+ YRS VACCINE 2020-05-10 00:00:00 Completed [facility] SARS-COV-2 COVID-19 MODERNA 12+ YRS VACCINE 2020-05-10 00:00:00 Completed [facility] SARS-COV-2 COVID-19 MODERNA 12+ YRS VACCINE 2020-05-10 00:00:00 Completed [facility] SARS-COV-2 COVID-19 MODERNA 12+ YRS VACCINE 2020-05-10 00:00:00 Completed [facility] SARS-COV-2 COVID-19 MODERNA 12+ YRS VACCINE 2020-05-10 00:00:00 Completed [facility] SARS-COV-2 COVID-19 MODERNA 12+ YRS VACCINE 2020-05-10 00:00:00 Completed [facility] SARS-COV-2 COVID-19 MODERNA 12+ YRS VACCINE 2020-05-10 00:00:00 Completed [facility] SARS-COV-2 COVID-19 MODERNA 12+ YRS VACCINE 2020-05-10 00:00:00 Completed [facility] SARS-COV-2 COVID-19 MODERNA 12+ YRS VACCINE 2020-05-10 00:00:00 Completed [facility] Influenza High Dose Quad 2019-12-09 00:00:00 Completed [facility] Influenza High Dose Quad 2019-12-09 00:00:00 Completed [facility] Influenza High Dose Quad 2019-12-09 00:00:00 Completed [facility] Influenza High Dose Quad 2019-12-09 00:00:00 Completed [facility] Influenza High Dose Quad 2019-12-09 00:00:00 Completed [facility] Influenza High Dose Quad 2019-12-09 00:00:00 Completed [facility] Influenza High Dose Quad 2019-12-09 00:00:00 Completed [facility] Influenza High Dose Quad 2019-12-09 00:00:00 Completed [facility] Influenza High Dose Quad 2019-12-09 00:00:00 Completed [facility] Influenza High Dose Quad 2019-12-09 00:00:00 Completed [facility] Influenza High Dose Quad 2019-12-09 00:00:00 Completed [facility] Influenza High Dose Quad 2019-12-09 00:00:00 Completed [facility] Influenza High Dose Quad 2019-12-09 00:00:00 Completed [facility] Influenza High Dose Quad 2019-12-09 00:00:00 Completed [facility] Influenza High Dose Quad 2019-12-09 00:00:00 Completed [facility] Influenza High Dose Quad 2019-12-09 00:00:00 Completed [facility] Influenza High Dose Quad 2019-12-09 00:00:00 Completed [facility] Influenza High Dose Quad 2019-12-09 00:00:00 Completed [facility] Influenza High Dose Quad 2019-12-09 00:00:00 Completed [facility] Influenza High Dose Quad 2019-12-09 00:00:00 Completed [facility] Influenza High Dose Quad 2019-12-09 00:00:00 Completed [facility] Influenza High Dose Quad 2019-12-09 00:00:00 Completed [facility] Influenza High Dose Quad 2019-12-09 00:00:00 Completed [facility] Influenza High Dose Quad 2019-12-09 00:00:00 Completed [facility] Influenza High Dose 2018-12-24 00:00:00 Completed [facility] Influenza High Dose 2018-12-24 00:00:00 Completed [facility] Influenza High Dose 2018-12-24 00:00:00 Completed [facility] Influenza High Dose 2018-12-24 00:00:00 Completed [facility] Influenza High Dose 2018-12-24 00:00:00 Completed [facility] Influenza High Dose 2018-12-24 00:00:00 Completed [facility] Influenza High Dose 2018-12-24 00:00:00 Completed [facility] Influenza High Dose 2018-12-24 00:00:00 Completed [facility] Influenza High Dose 2018-12-24 00:00:00 Completed [facility] Influenza High Dose 2018-12-24 00:00:00 Completed [facility] Influenza High Dose 2018-12-24 00:00:00 Completed [facility] Influenza High Dose 2018-12-24 00:00:00 Completed [facility] Influenza High Dose 2018-12-24 00:00:00 Completed [facility] Influenza High Dose 2018-12-24 00:00:00 Completed [facility] Influenza High Dose 2018-12-24 00:00:00 Completed [facility] Influenza High Dose 2018-12-24 00:00:00 Completed [facility] Influenza High Dose 2018-12-24 00:00:00 Completed [facility] Influenza High Dose 2018-12-24 00:00:00 Completed [facility] Influenza High Dose 2018-12-24 00:00:00 Completed [facility] Influenza High Dose 2018-12-24 00:00:00 Completed [facility] Influenza High Dose 2018-12-24 00:00:00 Completed [facility] Influenza High Dose 2018-12-24 00:00:00 Completed [facility] Influenza High Dose 2018-12-24 00:00:00 Completed [facility] Influenza High Dose 2018-12-24 00:00:00 Completed [facility] Influenza High Dose 2017-12-24 00:00:00 Completed [facility] Influenza High Dose 2017-12-24 00:00:00 Completed [facility] Influenza High Dose 2017-12-24 00:00:00 Completed [facility] Influenza High Dose 2017-12-24 00:00:00 Completed [facility] Influenza High Dose 2017-12-24 00:00:00 Completed [facility] Influenza High Dose 2017-12-24 00:00:00 Completed [facility] Influenza High Dose 2017-12-24 00:00:00 Completed [facility] Influenza High Dose 2017-12-24 00:00:00 Completed [facility] Influenza High Dose 2017-12-24 00:00:00 Completed [facility] Influenza High Dose 2017-12-24 00:00:00 Completed [facility] Influenza High Dose 2017-12-24 00:00:00 Completed [facility] Influenza High Dose 2017-12-24 00:00:00 Completed [facility] Influenza High Dose 2017-12-24 00:00:00 Completed [facility] Influenza High Dose 2017-12-24 00:00:00 Completed [facility] Influenza High Dose 2017-12-24 00:00:00 Completed [facility] Influenza High Dose 2017-12-24 00:00:00 Completed [facility] Influenza High Dose 2017-12-24 00:00:00 Completed [facility] Influenza High Dose 2017-12-24 00:00:00 Completed [facility] Influenza High Dose 2017-12-24 00:00:00 Completed [facility] Influenza High Dose 2017-12-24 00:00:00 Completed [facility] Influenza High Dose 2017-12-24 00:00:00 Completed [facility] Influenza High Dose 2017-12-24 00:00:00 Completed [facility] Influenza High Dose 2017-12-24 00:00:00 Completed [facility] Influenza High Dose 2017-12-24 00:00:00 Completed [facility] TDAP 2017-04-05 00:00:00 Completed [facility] TDAP 2017-04-05 00:00:00 Completed [facility] TDAP 2017-04-05 00:00:00 Completed [facility] TDAP 2017-04-05 00:00:00 Completed [facility] TDAP 2017-04-05 00:00:00 Completed [facility] TDAP 2017-04-05 00:00:00 Completed [facility] TDAP 2017-04-05 00:00:00 Completed [facility] TDAP 2017-04-05 00:00:00 Completed [facility] TDAP 2017-04-05 00:00:00 Completed [facility] TDAP 2017-04-05 00:00:00 Completed [facility] TDAP 2017-04-05 00:00:00 Completed [facility] TDAP 2017-04-05 00:00:00 Completed [facility] TDAP 2017-04-05 00:00:00 Completed [facility] TDAP 2017-04-05 00:00:00 Completed [facility] TDAP 2017-04-05 00:00:00 Completed [facility] TDAP 2017-04-05 00:00:00 Completed [facility] TDAP 2017-04-05 00:00:00 Completed [facility] TDAP 2017-04-05 00:00:00 Completed [facility] TDAP 2017-04-05 00:00:00 Completed [facility] TDAP 2017-04-05 00:00:00 Completed [facility] TDAP 2017-04-05 00:00:00 Completed [facility] TDAP 2017-04-05 00:00:00 Completed [facility] TDAP 2017-04-05 00:00:00 Completed [facility] TDAP 2017-04-05 00:00:00 Completed [facility] TDAP Unknown Completed [facility] Influenza High Dose Unknown Completed [facility] SARS-COV-2 COVID-19 MODERNA 12+ YRS VACCINE Unknown Completed [facility] Influenza High Dose Quad Unknown Completed [facility] Influenza Virus Vaccine Unknown Completed [facility] TDAP Unknown Completed [facility] Influenza High Dose Unknown Completed [facility] SARS-COV-2 COVID-19 MODERNA 12+ YRS VACCINE Unknown Completed [facility] Influenza High Dose Quad Unknown Completed [facility] Influenza Virus Vaccine Unknown Completed [facility] TDAP Unknown Completed [facility] Influenza High Dose Unknown Completed [facility] SARS-COV-2 COVID-19 MODERNA 12+ YRS VACCINE Unknown Completed [facility] Influenza High Dose Quad Unknown Completed [facility] Influenza Virus Vaccine Unknown Completed [facility] TDAP Unknown Completed [facility] Influenza High Dose Unknown Completed [facility] SARS-COV-2 COVID-19 MODERNA 12+ YRS VACCINE Unknown Completed [facility] Influenza High Dose Quad Unknown Completed [facility] Influenza Virus Vaccine Unknown Completed [facility] Remdesivir Unknown Completed [facility] Remdesivir Unknown [facility] TDAP Unknown Completed [facility] Influenza High Dose Unknown Completed [facility] SARS-COV-2 COVID-19 MODERNA 12+ YRS VACCINE Unknown Completed [facility] Influenza High Dose Quad Unknown Completed [facility] Influenza Virus Vaccine Unknown Completed [facility] Remdesivir Unknown Completed [facility] Remdesivir Unknown Com[facility] TDAP Unknown Completed [facility] Influenza High Dose Unknown Completed [facility] SARS-COV-2 COVID-19 MODERNA 12+ YRS VACCINE Unknown Completed [facility] Influenza High Dose Quad Unknown Completed [facility] Influenza Virus Vaccine Unknown Completed [facility] Remdesivir Unknown [facility] Remdesivir Unknown Com[facility] TDAP Unknown Completed [facility] Influenza High Dose Unknown Completed [facility] SARS-COV-2 COVID-19 MODERNA 12+ YRS VACCINE Unknown Completed [facility] Influenza High Dose Quad Unknown Completed [facility] Influenza Virus Vaccine Unknown Completed [facility] Remdesivir Unknown [facility] Remdesivir Unknown Com[facility] TDAP Unknown Completed [facility] Influenza, High-Dose, Trivalent, PF (FLUZONE) Unknown Completed [facility] SARS-COV-2 COVID-19 VACCINE - (MODERNA) Unknown Completed [facility] Influenza High Dose Quad Unknown Completed [facility] Influenza Virus Vaccine Unknown Completed [facility] Remdesivir Unknown Completed [facility] Remdesivir Unknown [facility] Vital Signs Vital Name Observation Time Observation Value Comments S ource Systolic blood pressure 2023-12-31 06:44:00 128 mm[Hg] [facility] [place] Diastolic blood pressure 2023-12-31 06:44:00 72 mm[Hg] [facility] Heart rate 2023-12-31 06:44:00 82 /min [facility] Body temperature 2023-12-31 06:44:00 36.67 Nita [facility] Respiratory rate 2023-12-31 06:44:00 16 /min [facility] Oxygen saturation in Arterial blood by Pulse oximetry 2023-12-31 06:44:00 100 /min [facility] Body height 2023-12-31 02:28:00 177.8 cm [facility] Body weight 2023-12-31 02:28:00 82.101 kg [facility] BMI 2023-12-31 02:28:00 25.97 kg/m2 [facility] Systolic blood pressure 2023-03-02 01:30:00 96 mm[Hg] [facility] Diastolic blood pressure 2023-03-02 01:30:00 52 mm[Hg] [facility] Heart rate 2023-03-02 01:30:00 68 /min [facility] Body temperature 2023-03-02 01:30:00 36.11 Nita [facility] Respiratory rate 2023-03-02 01:30:00 8 /min [facility] Oxygen saturation in Arterial blood by Pulse oximetry 2023-03-02 01:30:00 98 /min [facility] Body height 2023 21:02:00 182.9 cm [facility] Body weight 2023 21:02:00 74.39 kg [facility] BMI 2023 21:02:00 22.24 kg/m2 [facility] Systolic blood pressure 2023-02-24 21:44:00 99 mm[Hg] [facility] Diastolic blood pressure 2023-02-24 21:44:00 55 mm[Hg] [facility] Heart rate 2023-02-24 21:44:00 75 /min [facility] Body temperature 2023-02-24 21:44:00 36.78 Nita [facility] Respiratory rate 2023-02-24 21:44:00 16 /min [facility] Body height 2023-02-24 21:44:00 182.9 cm [facility] Body weight 2023-02-24 21:44:00 74.39 kg [facility] BMI 2023-02-24 21:44:00 22.24 kg/m2 [facility] Oxygen saturation in Arterial blood by Pulse oximetry 2023-02-24 21:44:00 98 /min [facility] Systolic blood pressure 2023-02-06 16:00:00 109 mm[Hg] [facility] Diastolic blood pressure 2023-02-06 16:00:00 75 mm[Hg] [facility] Heart rate 2023-02-06 16:00:00 80 /min [facility] Body temperature 2023-02-06 16:00:00 36.28 Nita [facility] Respiratory rate 2023-02-06 16:00:00 17 /min [facility] Oxygen saturation in Arterial blood by Pulse oximetry 2023-02-06 16:00:00 96 /min [facility] Body weight 2023-02-06 08:22:00 74.481 kg [facility] BMI 2023-02-06 08:22:00 22.27 kg/m2 [facility] Body height 2023-02-02 21:14:00 182.9 cm [facility] Systolic blood pressure 2023-01-29 16:38:00 108 mm[Hg] [facility] Diastolic blood pressure 2023-01-29 16:38:00 48 mm[Hg] [facility] Heart rate 2023-01-29 16:38:00 66 /min [facility] Body temperature 2023-01-29 16:38:00 37.06 Nita [facility] Oxygen saturation in Arterial blood by Pulse oximetry 2023-01-29 16:38:00 95 /min [facility] Respiratory rate 2023-01-29 09:17:00 16 /min [facility] Body weight 2023-01-29 09:17:00 73.982 kg [facility] BMI 2023-01-29 09:17:00 22.12 kg/m2 [facility] Body height 2023-01-25 23:25:00 182.9 cm [facility] Systolic blood pressure 2023-01-20 22:00:00 123 mm[Hg] [facility] Diastolic blood pressure 2023-01-20 22:00:00 80 mm[Hg] [facility] Heart rate 2023-01-20 22:00:00 82 /min [facility] Body temperature 2023-01-20 22:00:00 36.89 Nita [facility] Respiratory rate 2023-01-20 22:00:00 16 /min [facility] Oxygen saturation in Arterial blood by Pulse oximetry 2023-01-20 22:00:00 97 /min [facility] Body height 2023-01-20 19:16:00 167.6 cm [facility] Body weight 2023-01-20 19:16:00 80 kg [facility] BMI 2023-01-20 19:16:00 28.47 kg/m2 [facility] Systolic blood pressure 2022-12-01 16:54:00 125 mm[Hg] [facility] Diastolic blood pressure 2022-12-01 16:54:00 79 mm[Hg] [facility] Heart rate 2022-12-01 16:54:00 94 /min [facility] Body temperature 2022-12-01 16:54:00 36.56 Nita [facility] Respiratory rate 2022-12-01 16:54:00 18 /min [facility] Oxygen saturation in Arterial blood by Pulse oximetry 2022-12-01 16:54:00 94 /min [facility] Body weight 2022-12-01 09:25:00 70.988 kg [facility] BMI 2022-12-01 09:25:00 21.23 kg/m2 [facility] Body height 2022-11-30 01:41:00 182.9 cm [facility] Systolic blood pressure 2022-11-26 22:00:00 126 mm[Hg] [facility] Diastolic blood pressure 2022-11-26 22:00:00 64 mm[Hg] [facility] Heart rate 2022-11-26 22:00:00 80 /min [facility] Oxygen saturation in Arterial blood by Pulse oximetry 2022-11-26 22:00:00 97 /min [facility] Respiratory rate 2022-11-26 21:00:00 18 /min [facility] Body temperature 2022-11-26 19:03:00 36.5 Nita [facility] Body height 2022-11-26 19:03:00 188 cm [facility] Body weight 2022-11-26 19:03:00 95.255 kg [facility] BMI 2022-11-26 19:03:00 26.96 kg/m2 [facility] Body temperature 2022-10-30 17:00:00 36.94 Nita [facility] Heart rate 2022-10-30 16:32:00 93 /min [facility] Respiratory rate 2022-10-30 16:32:00 18 /min [facility] Oxygen saturation in Arterial blood by Pulse oximetry 2022-10-30 16:32:00 97 /min [facility] Systolic blood pressure 2022-10-30 16:00:00 114 mm[Hg] [facility] Diastolic blood pressure 2022-10-30 16:00:00 87 mm[Hg] [facility] Body weight 2022-10-29 21:00:00 70.988 kg [facility] BMI 2022-10-29 21:00:00 22.46 kg/m2 [facility] Body height 2022-10-28 03:11:00 177.8 cm [facility] Systolic blood pressure 2022-08-27 19:48:00 97 mm[Hg] [facility] Diastolic blood pressure 2022-08-27 19:48:00 66 mm[Hg] [facility] Heart rate 2022-08-27 19:48:00 78 /min [facility] Respiratory rate 2022-08-27 19:48:00 18 /min [facility] Body height 2022-08-27 19:48:00 182.9 cm [facility] Body weight 2022-08-27 19:48:00 70.761 kg [facility] BMI 2022-08-27 19:48:00 21.16 kg/m2 [facility] Systolic blood pressure 2022-07-26 16:20:00 103 mm[Hg] [facility] Diastolic blood pressure 2022-07-26 16:20:00 67 mm[Hg] [facility] Heart rate 2022-07-26 16:20:00 94 /min [facility] Body temperature 2022-07-26 16:20:00 36.94 Nita [facility] Respiratory rate 2022-07-26 16:20:00 20 /min [facility] Oxygen saturation in Arterial blood by Pulse oximetry 2022-07-26 16:20:00 94 /min [facility] Body weight 2022-07-26 09:30:00 70.988 kg [facility] BMI 2022-07-26 09:30:00 21.23 kg/m2 [facility] Body height 2022-07-21 02:02:00 182.9 cm [facility] Systolic blood pressure 2022-07-18 19:48:00 111 mm[Hg] [facility] Diastolic blood pressure 2022-07-18 19:48:00 61 mm[Hg] [facility] Heart rate 2022-07-18 19:48:00 69 /min [facility] Body temperature 2022-07-18 19:48:00 36.44 Nita [facility] Respiratory rate 2022-07-18 19:48:00 18 /min [facility] Body height 2022-07-18 19:48:00 185.4 cm [facility] Body weight 2022-07-18 19:48:00 74.39 kg [facility] BMI 2022-07-18 19:48:00 21.64 kg/m2 [facility] Oxygen saturation in Arterial blood by Pulse oximetry 2022-07-18 19:48:00 100 /min [facility] Systolic blood pressure 2022-06-10 20:00:00 140 mm[Hg] [facility] Diastolic blood pressure 2022-06-10 20:00:00 56 mm[Hg] [facility] Heart rate 2022-06-10 20:00:00 81 /min [facility] Body temperature 2022-06-10 20:00:00 36.89 Nita [facility] Respiratory rate 2022-06-10 20:00:00 14 /min [facility] Oxygen saturation in Arterial blood by Pulse oximetry 2022-06-10 20:00:00 100 /min [facility] Body height 2022-06-10 16:20:00 182.9 cm [facility] Body weight 2022-06-10 16:20:00 74.39 kg [facility] BMI 2022-06-10 16:20:00 22.24 kg/m2 [facility] Systolic blood pressure 2022-05-28 17:22:00 112 mm[Hg] [facility] Diastolic blood pressure 2022-05-28 17:22:00 66 mm[Hg] [facility] Heart rate 2022-05-28 17:22:00 83 /min [facility] Body temperature 2022-05-28 17:22:00 36.28 Nita [facility] Respiratory rate 2022-05-28 17:22:00 18 /min [facility] Oxygen saturation in Arterial blood by Pulse oximetry 2022-05-28 17:22:00 98 /min [facility] Body weight 2022-05-28 10:02:00 74.481 kg [facility] BMI 2022-05-28 10:02:00 22.27 kg/m2 [facility] Body height 2022-05-27 04:42:00 182.9 cm [facility] Systolic blood pressure 2022-05-05 22:34:00 102 mm[Hg] [facility] Diastolic blood pressure 2022-05-05 22:34:00 58 mm[Hg] [facility] Heart rate 2022-05-05 22:34:00 79 /min [facility] Body temperature 2022-05-05 22:34:00 36.22 Nita [facility] Respiratory rate 2022-05-05 22:34:00 18 /min [facility] Oxygen saturation in Arterial blood by Pulse oximetry 2022-05-05 22:34:00 94 /min [facility] Body weight 2022-05-05 10:07:00 73.982 kg [facility] BMI 2022-05-05 10:07:00 20.94 kg/m2 [facility] Body height 2022-05-03 04:50:00 188 cm [facility] Systolic blood pressure 2021-12-05 19:40:00 115 mm[Hg] [facility] Diastolic blood pressure 2021-12-05 19:40:00 73 mm[Hg] [facility] Heart rate 2021-12-05 19:40:00 59 /min [facility] Body weight 2021-12-05 19:40:00 77.701 kg [facility] BMI 2021-12-05 19:40:00 23.89 kg/m2 [facility] Oxygen saturation in Arterial blood by Pulse oximetry 2021-12-05 19:40:00 97 /min [facility] Procedures Procedure Date / Time Performed Performing Clinician Source CT ABDOMEN PELVIS W CONTRAST 2023-12-31 04:45:00 Isaura Beck [facility] CT CHEST PULMONARY ANGIOGRAM 2023-12-31 04:45:00 Isaura Beck [facility] MAGNESIUM 2023-12-31 03:14:00 Isaura Beck [facility] COMP. METABOLIC PANEL ([id number]) 2023-12-31 03:14:00 Isaura Beck [facility] CBC WITH DIFF 2023-12-31 03:14:00 Isaura Beck [facility] URINALYSIS 2023-12-31 03:14:00 Isaura Beck [facility] XR ANKLE 3+ VW RIGHT 2023 23:02:00 Joseph Melendez [facility] COMP. METABOLIC PANEL ([id number]) 2023 21:37:00 Joseph Melendez [facility] CBC WITH DIFF 2023 21:37:00 Joseph Melendez [facility] BASIC METABOLIC PANEL (NA, K, CL, CO2, GLUCOSE, BUN, CREATININE, CA) 2023-02-24 21:45:00 Nicanor Lentz [facility] AUTHORIZATION FOR RELEASE OF PHI 2023-02-20 06:01:00 Doctor Unassigned, [place] [facility] BASIC METABOLIC PANEL (NA, K, CL, CO2, GLUCOSE, BUN, CREATININE, CA) 2023-02-05 08:20:00 Andreina Childs [facility] CBC WITH DIFF 2023-02-05 08:20:00 Amadeo Andreina [facility] BASIC METABOLIC PANEL (NA, K, CL, CO2, GLUCOSE, BUN, CREATININE, CA) 2023-02-04 09:27:00 Andreina Childs [facility] CBC WITH DIFF 2023-02-04 09:27:00 Amadeo [facility] JESSE AURIS SURVEILLANCE BY PCR (INFECTION CONTROL PURPOSES) 2023-02-03 21:48:00 Andreina Childs Alysa [facility] URINALYSIS 2023-02-03 14:42:00 Josefina Dasilva [facility] CBC WITH DIFF 2023-02-03 11:25:00 Marlena Rios [facility] BASIC METABOLIC PANEL (NA, K, CL, CO2, GLUCOSE, BUN, CREATININE, CA) 2023-02-03 10:19:00 Marlena Rios [facility] PROCALCITONIN 2023-02-03 10:19:00 Dorian Dasilvameli [facility] XR CHEST 1 VW 2023-02-02 19:00:15 Andreina Uriarte [facility] COMP. METABOLIC PANEL ([id number]) 2023-02-02 16:53:00 Andreina Uriarte [facility] CBC WITH DIFF 2023-02-02 16:53:00 Andreina Uriarte [facility] RAPID INFLUENZA A/B 2023-02-02 16:53:00 Andreina Uriarte [facility] COVID-19 (ID NOW RAPID TESTING) 2023-02-02 16:53:00 Andreina Uriarte [facility] LAB ONLY COVID INTERPRETATION 2023-02-02 16:53:00 Andreina Uriarte [facility] XR CHEST 1 VW 2023-01-28 18:01:19 Marlena Rios [facility] BASIC METABOLIC PANEL (NA, K, CL, CO2, GLUCOSE, BUN, CREATININE, CA) 2023-01-27 10:13:00 Andreina Childs [facility] VANCOMYCIN TROUGH 2023-01-27 10:13:00 Angelica Braga [facility] CBC WITH DIFF 2023-01-27 10:13:00 Andreina Childs [facility] WOUND/ASPIRATE OR ABSCESS CULTURE 2023-01-26 18:02:00 [facility] 2023-01-26 18:02:00 Keerthi Solorzano [facility] MRSA / MSSA SCREEN BY PCRARNOLD 2023-01-25 23:19:00 Marques Hines [facility] BLOOD CULTURE SCREEN 2023-01-25 20:41:00 Lavon Soni [facility] COMP. METABOLIC PANEL ([id number]) 2023-01-25 20:41:00 Virginia Soni [facility] SEDIMENTATION RATE 2023-01-25 20:41:00 Marco A Soni [facility] CBC WITH DIFF 2023-01-25 20:41:00 Virginia Soni U [facility] LACTIC ACID WHOLE BLOOD 2023-01-25 20:41:00 Virginia Soni [facility] XR ANKLE 3+ VW RIGHT 2023-01-25 20:38:12 Lavon Soni [facility] CONSENT/REFUSAL FOR DIAGNOSIS AND TREATMENT 2023-01-25 20:04:39 Doctor Unassigned, [place] [facility] EMERGENCY DEPARTMENT DOCUMENTS 2023-01-25 05:01:00 Doctor Unassigned, [place] [facility] RAPID STREP SCREEN FOR GROUP A 2023-01-20 21:38:00 Virginia Soni [facility] CT HEAD WO CONTRAST 2023-01-20 19:55:01 Hali Soni ra [facility] XR CHEST 1 VW 2023-01-20 19:54:03 Virginia Soni [facility] TROPONIN I 2023-01-20 19:24:00 Virginia Soni [facility] COMP. METABOLIC PANEL ([id number]) 2023-01-20 19:24:00 Virginia Soni [facility] CBC WITH DIFF 2023-01-20 19:24:00 Virginia Soni [facility] RAPID INFLUENZA A/B 2023-01-20 19:24:00 Hali Soni ra [facility] N-TERMINAL PRO-BNP 2023-01-20 19:24:00 Marco A Soni [facility] COVID-19 (ID NOW RAPID TESTING) 2023-01-20 19:24:00 Virginia Soni [facility] MAGNESIUM 2023-01-20 19:24:00 Virginia Soni [facility] BASIC METABOLIC PANEL (NA, K, CL, CO2, GLUCOSE, BUN, CREATININE, CA) 2022-12-01 11:21:00 Andreina Childs [facility] XR ANKLE 3+ VW RIGHT 2022-11-30 01:09:00 Juno Verdin [facility] XR KUB 2022-11-29 23:28:59 Juno Verdin [facility] COMP. METABOLIC PANEL ([id number]) 2022-11-29 23:10:00 Juno Verdin [facility] CBC WITH DIFF 2022-11-29 23:10:00 Juno Verdin [facility] CT ABDOMEN PELVIS W CONTRAST 2022-11-26 21:46:20 Frankie [facility] COMP. METABOLIC PANEL ([id number]) 2022-11-26 19:54:00 Frankie Olman [facility] CBC WITH DIFF 2022-11-26 19:54:00 Frankie Olman [facility] ASSIGNMENT OF BENEFITS 2022-11-26 19:35:58 Docto r Unassigned, [place] [facility] CONSENT/REFUSAL FOR DIAGNOSIS AND TREATMENT 2022-11-26 19:35:18 Doctor Unassigned, [place] [facility] XR CHEST 1 VW 2022-11-26 19:29:39 [facility] CONSENT/REFUSAL FOR DIAGNOSIS AND TREATMENT 2022-11-26 19:13:37 Doctor Unassigned, [place] [facility] CONSENT/REFUSAL FOR DIAGNOSIS AND TREATMENT 2022-11-26 19:09:05 Doctor Unassigned, [place] [facility] EXTERNAL PROVIDER - ADC CARDIOLOGY 2022-11-21 05:01:00 Doctor Unassigned, [place] [facility] XR CHEST 1 VW 2022-10-30 11:30:00 Aziza Echevarria [facility] MAGNESIUM 2022-10-30 09:09:00 Aziza Echevarria [facility] BASIC METABOLIC PANEL (NA, K, CL, CO2, GLUCOSE, BUN, CREATININE, CA) 2022-10-30 09:09:00 Aziza Echevarria [facility] CBC WITH DIFF 2022-10-30 09:09:00 Aziza Echevarria [facility] POCT GLUCOSE (AUTOMATED) 2022-10-29 13:16:00 Chaz Roberts [facility] MAGNESIUM 2022-10-29 07:50:00 Aziza Echevarria [facility] BASIC METABOLIC PANEL (NA, K, CL, CO2, GLUCOSE, BUN, CREATININE, CA) 2022-10-29 07:50:00 [facility] 2022-10-29 07:50:00 Aziza Echevarria [facility] POCT GLUCOSE (AUTOMATED) 2022-10-29 01:59:00 Harvinder [facility] POCT GLUCOSE (AUTOMATED) 2022-10-28 21:26:00 Harvinder [facility] POCT GLUCOSE (AUTOMATED) 2022-10-28 16:56:00 Harvinder [facility] LEGIONELLA AND STREPTOCOCCUS PNEUMONIAE URINARY ANTIGENS 2022-10-28 16:05:00 Harvinder [facility] JESSE AURIS SURVEILLANCE BY PCR (INFECTION CONTROL PURPOSES) 2022-10-28 15:51:00 Lydia Tristan [facility] BASIC METABOLIC PANEL (NA, K, CL, CO2, GLUCOSE, BUN, CREATININE, CA) 2022-10-28 15:45:00 Wale [facility] CBC WITH DIFF 2022-10-28 15:45:00 Aziza Echevarria [facility] LACTIC ACID WHOLE BLOOD 2022-10-28 15:32:00 Lydia Tuttle [facility] PROCALCITONIN 2022-10-28 15:32:00 Lydia Tristan [facility] POCT GLUCOSE (AUTOMATED) 2022-10-28 13:54:00 Harvinder [facility] BLOOD CULTURE SCREEN 2022-10-28 06:55:00 Lashon Beck i [facility] XR CHEST 1 VW 2022-10-28 04:21:00 Marcie Nickerson [facility] THROAT CULTURE 2022-10-28 03:42:00 Krishan [facility] RAPID STREP SCREEN FOR GROUP A 2022-10-28 03:42:00 Marcie Nickerson [facility] COVID-19 (ID NOW RAPID TESTING) 2022-10-28 03:42:00 Marcie Nickerson [facility] LAB ONLY COVID INTERPRETATION 2022-10-28 03:42:00 Marcie Nickerson [facility] MAGNESIUM 2022-10-28 03:26:00 Wolf[facility]lyChaz [facility] TROPONIN I 2022-10-28 03:26:00 Marcie Nickerson [facility] COMP. METABOLIC PANEL ([id number]) 2022-10-28 03:26:00 Marcie Nickerson [facility] CBC WITH DIFF 2022-10-28 03:26:00 Marcie Nickerson [facility] GLYCOSYLATED HEMOGLOBIN (A1C) 2022-10-28 03:26:00 Lydia Tristan [facility] URINALYSIS 2022-10-28 03:26:00 Marcie Nickerson [facility] LACTIC ACID WHOLE BLOOD 2022-10-28 03:26:00 Marcie Nickerson [facility] ASSIGNMENT OF BENEFITS 2022-10-28 03:23:04 Docto r Unassigned, [place] [facility] NOTICE OF PRIVACY PRACTICES 2022-10-28 03:22:29 Doctor Unassigned, [place] [facility] CONSENT/REFUSAL FOR DIAGNOSIS AND TREATMENT 2022-10-28 03:22:10 Doctor Unassigned, [place] [facility] HB ECG ROUTINE & RHYTHM STRIP 2022-10-28 03:09:11 Marcie Nickerson [facility] CT THORAX W CONTRAST 2022-07-25 18:16:16 Juancarlos Rios i [facility] RAPID INFLUENZA A/B 2022-07-25 17:15:00 Marlena Rios [facility] COVID-19 (ID NOW RAPID TESTING) 2022-07-25 17:15:00 Marlena Rios [facility] BASIC METABOLIC PANEL (NA, K, CL, CO2, GLUCOSE, BUN, CREATININE, CA) 2022-07-25 09:46:00 Andreina Childs [facility] CBC WITH DIFF 2022-07-25 09:46:00 Andreina Childs [facility] XR CHEST 1 VW 2022-07-25 00:09:00 Andreina Childs [facility] BASIC METABOLIC PANEL (NA, K, CL, CO2, GLUCOSE, BUN, CREATININE, CA) 2022-07-24 09:31:00 Amadeo Andreina [facility] CBC WITH DIFF 2022-07-24 09:31:00 Amadeo [facility] MRSA / MSSA SCREEN BY PCRARNOLD 2022-07-23 21:06:00 Amadeo Andreina [facility] CBC WITH DIFF 2022-07-22 10:41:00 Leroy Soni [facility] BASIC METABOLIC PANEL (NA, K, CL, CO2, GLUCOSE, BUN, CREATININE, CA) 2022-07-22 09:09:00 Leroy Soni [facility] WOUND/ASPIRATE OR ABSCESS CULTURE 2022-07-21 16:22:00 Alirio Locke [facility] WOUND CULTURE 2022-07-21 16:22:00 Alirio Locke [facility] XR ANKLE <3 VW RIGHT 2022-07-21 12:18:38 Singer [facility] BLOOD CULTURE SCREEN 2022-07-21 02:26:00 Singer [facility] COMP. METABOLIC PANEL ([id number]) 2022-07-21 02:26:00 Singer [facility] SEDIMENTATION RATE 2022-07-21 02:26:00 Singer [facility] CBC WITH DIFF 2022-07-21 02:26:00 Singer [facility] LACTIC ACID WHOLE BLOOD 2022-07-21 02:25:[address] , [facility] LACTIC ACID WHOLE BLOOD 2022-07-18 20:14:00 , Tatyana [facility] COMP. METABOLIC PANEL ([id number]) 2022-07-18 20:12:00 Singer [facility] SEDIMENTATION RATE 2022-07-18 20:12:00 Singer [facility] CBC WITH DIFF 2022-07-18 20:12:00 Singer [facility] CT ABDOMEN PELVIS W CONTRAST 2022-06-10 18:56:57 Joseph Melendez [facility] XR CHEST 1 VW 2022-06-10 18:39:57 Joseph Melendez Veronica [facility] URINALYSIS 2022-06-10 18:30:00 Joseph [facility]endez [facility] ASSIGNMENT OF BENEFITS 2022-06-10 17:41:23 Docto r Unassigned, [place] [facility] CONSENT/REFUSAL FOR DIAGNOSIS AND TREATMENT 2022-06-10 17:39:47 Doctor Unassigned, [place] [facility] LIPASE 2022-06-10 17:15:00 Joseph Melendez [facility] MAGNESIUM 2022-06-10 17:15:00 Joseph Melendez [facility] TROPONIN I 2022-06-10 17:15:00 Joseph Melendez [facility] COMP. METABOLIC PANEL ([id number]) 2022-06-10 17:15:00 Joseph Melendez [facility] CBC WITH DIFF 2022-06-10 17:15:00 Joseph Melendez Veronica [facility] EXTERNAL PROVIDER RECORDS 2022-06-03 06:01:00 Do ctor Unassigned, [place] [facility] BASIC METABOLIC PANEL (NA, K, CL, CO2, GLUCOSE, BUN, CREATININE, CA) 2022-05-28 10:01:00 Andreina Childs [facility] CBC WITH DIFF 2022-05-28 10:01:00 [facility] (NA, K, CL, CO2, GLUCOSE, BUN, CREATININE, CA) 2022-05-27 10:03:00 [facility] CBC WITH DIFF 2022-05-27 10:03:00 Josefina Dasilva [facility] CT ABDOMEN PELVIS WO CONTRAST 2022-05-27 00:19:06 Marcie Nickerson [facility] XR CHEST 1 VW 2022-05-27 00:18:27 Marcie Nickerson [facility] COMP. METABOLIC PANEL ([id number]) 2022-05-26 23:52:00 Marcie Nickerson [facility] CBC WITH DIFF 2022-05-26 22:55:00 Marcie Nickerson [facility] COVID-19 (ID NOW RAPID TESTING) 2022-05-26 22:41:00 Marcie Nickerson [facility] LAB ONLY COVID INTERPRETATION 2022-05-26 22:41:00 Marcie Nickerson [facility] BASIC METABOLIC PANEL (NA, K, CL, CO2, GLUCOSE, BUN, CREATININE, CA) 2022-05-05 10:38:00 Leroy Soni [facility] CBC WITH DIFF 2022-05-05 10:38:00 Leroy Soni [facility] FECES CULTURE 2022-05-03 15:27:00 Brown [facility] OCCULT (GUAIAC) BLOOD 2022-05-03 15:27:00 Randi Dasilva [facility] CLOSTRIDIUM DIFFICILE TOXIN 2022-05-03 15:25:00 Singer [facility] BASIC METABOLIC PANEL (NA, K, CL, CO2, GLUCOSE, BUN, CREATININE, CA) 2022-05-03 11:51:00 Brown [facility] CBC WITH DIFF 2022-05-03 11:51:00 Brown [facility] CT ABDOMEN PELVIS W CONTRAST 2022-05-03 01:40:00 Singer [facility] COMP. METABOLIC PANEL ([id number]) 2022-05-03 00:41:00 Singer [facility] CBC WITH DIFF 2022-05-03 00:41:00 Singer [facility] Encounters Start Date/Time End Date/Time Encounter Type Admission Type Attending Clinicians Care Facility Care Department Encounter ID Source 2024-03-11 12:28:00 2024-03-11 15:13:00 Emergency X MONICA RYAN [facility] [id number] [facility] 2023-12-30 21:24:00 2023-12-31 02:06:00 Emergency X ISAURA BECK WAKILI [facility] [id number] [facility] 2023-12-30 21:24:00 2023-12-31 02:06:00 Emergency Isaura Beck [facility] [id number] [facility] 2023-09-02 13:45:00 2023-09-02 13:45:00 Outpatient NATALIE SALTER [facility] [id number] [facility] 2023 14:51:00 2023 20:06:00 Emergency Joseph ESPINOSA [facility] [id number] [facility] 2023 14:51:00 2023 20:06:00 Emergency Joseph Melendez [facility] [id number] [facility] 2023-02-24 15:31:00 2023-02-24 17:09:00 Emergency Kevin NICANOR LENTZ [facility] [id number] [facility] 2023-02-24 15:31:00 2023-02-24 17:09:00 Emergency Nicanor Lentz [facility] [id number] [facility] 2023-02-09 00:00:00 2023-02-09 00:00:00 Transition of Care Shira Mead [id number] [facility] 2023-02-02 11:13:00 2023-02-06 14:30:00 Inpatient X [facility] [id number] [facility] 2023-02-02 11:13:00 2023-02-06 14:30:00 Hospital Encounter UriarteAndreina, Marques Talamantes [facility] [id number] [facility] 2023-01-25 14:59:00 2023-01-29 14:45:00 Outpatient Kevin [facility] [id number] [facility] [facility] 14:59:00 2023-01-29 14:45:00 Emergency Virginia Soni [facility] 1.2.840.114 350.1.13.10 4.2.7.2.686 [id number] [facility] 2023-01-20 14:16:00 2023-01-20 18:32:00 Emergency VIRGINIA [facility] ERT [id number] [facility] 2023-01-20 14:16:00 2023-01-20 18:32:00 Emergency Virginia Soni [facility] 1.2.840.114 350.1.13.10 4.2.7.2.686 [id number] [facility] 2022-12-02 00:00:00 2022-12-02 00:00:00 Transition of Care Ena Vaughn 1.2.840.114 350.1.13.10 4.2.7.2.686 [id number] [facility] 2022-11-29 17:47:00 2022-12-01 15:01:00 Outpatient MARQUES ABDALLA [facility] [id number] [facility] 2022-11-29 17:47:00 2022-12-01 15:01:00 Emergency Juno Verdin Marques [facility] 1.2840.114 350.1.13.10 4.2.7.2.686 [id number] [facility] 2022-11-26 14:05:00 2022-11-26 20:18:00 Emergency X FRANKIE [facility] ERT [id number] [facility] 2022-11-26 14:05:00 2022-11-26 20:18:00 Emergency Olman David [facility] 1.2840.114 350.1.13.10 4.2.7.2.686 [id number] 084 [id number] [facility] 2022-11-21 00:00:00 2022-11-21 00:00:00 Orders Only Doctor Unassigned, [place] [facility] 1.2840.114 350.1.13.10 4.2.7.2.686 [id number] [id number] [facility] 2022-10-31 00:00:00 2022-10-31 00:00:00 Transition of Care Ena Vaughn 1.20.114 350.1.13.10 4.2.7.2.686 [id number] [facility] 2022-10-27 22:03:00 2022-10-30 14:20:00 Inpatient X LYDIA TRISTAN [facility] [id number] [facility] 2022-10-27 22:03:00 2022-10-30 14:20:00 Hospital Encounter Marcie Nickerson Wakili S Albustami, Omar Abu Atherah, Emran [facility] 1.2840.114 350.1.13.10 4.2.7.2.686 [id number] [facility] 2022-08-27 14:15:00 2022-08-27 15:25:22 Outpatient R NATALIE TRIVEDI [facility] [id number] [facility] 2022-08-27 14:15:00 2022-08-27 15:25:22 [facility] 1.0.114 350.1.13.10 4.2.7.2.686 [id number] [facility] 2022-07-31 00:00:00 2022-07-31 00:00:00 Patient Secure Msg Doctor Unassigned, [place] [facility] 1.0.114 350.1.13.10 4.2.7.2.686 [id number] [facility] 2022-07-30 14:15:00 2022-07-30 14:15:00 Outpatient R KATALINA TRIVEDITNEY [facility] [id number] [facility] 2022-07-28 00:00:00 2022-07-28 00:00:00 Transition of Care Ena Vaughn SARA CARTAGENA 1.0.114 350.1.13.10 4.2.7.2.686 [id number] [facility] 2022-07-20 20:56:00 2022-07-26 16:35:00 Hospital Encounter Nicanor Lentz Santhosh Morris, David [facility] 1.0.114 350.1.13.10 4.2.7.2.686 [id number] [facility] 2022-07-18 14:46:00 2022-07-18 18:35:00 Emergency X NICANOR LENTZ [facility] [id number] [facility] 2022-07-18 14:46:00 2022-07-18 18:35:00 Emergency Nicanor Lentz [facility] 1.0.114 350.1.13.10 4.2.7.2.686 [id number] [facility] 2022-07-18 14:46:00 2022-07-18 18:35:00 Emergency X NICANOR LENTZ [facility] ERT [id number] [facility] 2022-07-02 00:00:00 2022-07-02 00:00:00 Telephone [facility] 1..840.114 350.1.13.10 4.2.7.2.686 [id number] [facility] 2022-07-01 00:00:00 2022-07-01 00:00:00 [facility] 1..840.114 350.1.13.10 4.2.7.2.686 [id number] 044 [id number] [facility] 2022-06-19 14:30:00 2022-06-19 14:30:00 Outpatient R DOUGIE GILES [facility] [id number] [facility] 2022-06-16 00:00:00 2022-06-16 00:00:00 Telephone Chan [facility] MEDICAL OFFICE BUILDING 1..840.114 350.1.13.10 4.2.7.2.686 [id number] 044 [id number] [facility] 2022-06-10 10:22:00 2022-06-10 16:51:00 Emergency X Joseph MELENDEZ [facility] [id number] [facility] 2022-06-10 10:22:00 2022-06-10 16:51:00 Emergency Joseph Melendez [facility] 1.2.840.114 350.1.13.10 4.2.7.2.686 [id number] 084 [id number] [facility] 2022-06-03 00:00:00 2022-06-03 00:00:00 Orders Only Doctor Unassigned, [place] [facility] 1.840.114 350.1.13.10 4.2.7.2.686 [id number] [id number] [facility] 2022-06-03 00:00:00 2022-06-03 00:00:00 Telephone Chan [facility] OFF[facility] BUILDING 1.840.114 350.1.13.10 4.2.7.2.686 [id number] 044 [id number] [facility] 2022-05-29 00:00:00 2022-05-29 00:00:00 Transition of Care Ena Vaughn 1..114 350.1.13.10 4.2.7.2.686 [id number] [facility] 2022-05-26 16:25:00 2022-05-28 14:40:00 Inpatient X MARLENA RIOS [facility] [id number] [facility] 2022-05-26 16:25:00 2022-05-28 14:40:00 Hospital Encounter RjnicoleberniceMarcie Jelani [facility] 1..114 350.1.13.10 4.2.7.2.686 [id number] 081 [id number] [facility] 2022-05-23 00:00:00 2022-05-23 00:00:00 [facility] 1.84.114 350.1.13.10 4.2.7.2.686 [id number] 044 [id number] [facility] 2022-05-05 18:41:00 2022-05-16 14:13:00 Inpatient 3 Mindy-[place] [id number] [facility] [place] 2022-05-06 00:00:00 2022-05-06 00:00:00 Transition of Care Ena Vaughn 1.2.840.114 350.1.13.10 4.2.7.2.686 [id number] [facility] 2022-05-02 18:19:00 2022-05-05 17:40:00 Outpatient X [facility] [id number] [facility] 2022-05-02 18:19:00 2022-05-05 17:40:00 [facility] 1.2.840.114 350.1.13.10 4.2.7.2.686 [id number] 081 [id number] [facility] 2022-05-01 00:00:00 2022-05-01 00:00:00 [facility] 1.2.840.114 350.1.13.10 4.2.7.2.686 [id number] 044 [id number] [facility] 2022-04-17 00:00:00 2022-04-17 00:00:00 Telephone [facility] MED[facility] OFF[facility] BU[facility] 1.2.840.114 350.1.13.10 4.2.7.2.686 [id number] 044 [id number] [facility] 2021-12-05 14:30:00 2021-12-05 14:45:00 Office Visit Chan [facility] MEDICAL OFFICE BUILDING 1.2840.114 350.1.13.10 4.2.7.2.686 [id number] 044 [id number] [facility] 2021-12-05 14:30:00 2021-12-05 14:30:00 Outpatient R CHAN [facility] [id number] [facility] 2021-12-05 14:30:00 2021-12-05 14:30:00 Outpatient DOUGIE BLACKMON [facility] [id number] [facility] 2021-12-05 00:00:00 2021-12-05 00:00:00 Orders Only Doctor Unassigned, [place] [facility] 1.2.840.114 350.1.13.10 4.2.7.2.686 [id number] [id number] [facility] 2021-11-28 14:00:00 2021-11-28 14:00:00 Outpatient DOUGIE BLACKMON [facility] [id number] [facility] 2021-11-27 00:00:00 2021-11-27 00:00:00 Natalie Cyr [facility] 1.2.840.114 350.1.13.10 4.2.7.2.686 [id number] [facility] 2021-11-21 14:30:00 2021-11-21 14:30:00 Outpatient DOUGIE BLACKMON [facility] [id number] [facility] 2021-11-18 15:00:00 2021-11-18 15:00:00 Nurse Visit Nurse, [facility] Katalina Garcestney [facility] 1.2.840.114 350.1.13.10 4.2.7.2.686 [id number] [facility] 2021-11-18 15:00:00 2021-11-18 13:15:55 Outpatient R KATALINA TRIVEDITNEY [facility] [id number] [facility] 2021-11-11 11:15:00 2021-11-11 14:37:03 [facility] [id number] [facility] 2021-11-11 11:15:00 2021-11-11 14:37:03 Nurse Visit Nurse, [facility] Gu Trivedi, [facility] BUILDING 1.2.840.114 350.1.13.10 4.2.7.2.686 [id number] [facility] 2021-11-11 00:00:00 2021-11-11 00:00:00 Telephone Farooq [facility] NAL BUILDING 1.2840.114 350.1.13.10 4.2.7.2.686 [id number] [facility] 2021-10-24 00:00:00 2021-10-24 00:00:00 Refill Chan [facility]?MARISAMayte [facility]ILD[facility] 1.840.114 350.1.13.10 4.2.7.2.686 [id number] 044 [id number] [facility] 2021-10-22 16:00:00 2021-10-22 16:00:00 Nurse Visit Nurse, [facility] Farooq [facility] 1..840.114 350.1.13.10 4.2.7.2.686 [id number] [facility] 2021-10-22 16:00:00 2021-10-22 15:58:34 Out[facility] [id number] [facility] 2021-10-22 00:00:00 2021-10-22 00:00:00 Telephone Farooq [facility] BUILDING 1..840.114 350.1.13.10 4.2.7.2.686 [id number] [facility] 2021-09-24 00:00:00 2021-09-24 00:00:00 [facility]ill [facility] MEDICAL OFFICE BUILDING 1.2840.114 350.1.13.10 4.2.7.2.686 [id number] [id number] [facility] 2021-09-17 00:00:00 2021-09-17 00:00:00 Orders Only Doctor Unassigned, [place] [facility] 1.20.114 350.1.13.10 4.2.7.2.686 [id number] [id number] [facility] 2021-07-31 15:00:00 2021-07-31 15:42:22 Outpatient R [facility] [id number] [facility] 2021-07-31 15:00:00 2021-07-31 15:42:22 [facility]..114 350.1.13.10 4.2.7.2.686 [id number] [facility] 2021-07-31 15:00:00 2021-07-31 15:00:00 Outpatient R [facility] [id number] [facility] 2021-07-31 00:00:00 2021-07-31 00:00:00 Orders Only Doctor Unassigned, [place] [facility] 1..114 350.1.13.10 4.2.7.2.686 [id number] [id number] [facility] 2021-07-30 00:00:00 2021-07-30 00:00:00 Telephone Jelani Cordon [facility] MED[facility] OFF[facility] BUILDING 1..114 350.1.13.10 4.2.7.2.686 [id number] 092 [id number] [facility] 2021-07-29 00:00:00 2021-07-29 00:00:00 Telephone Jean Jarrett [facility] NAL BUILDING 1..114 350.1.13.10 4.2.7.2.686 [id number] [facility] 2021-07-22 00:00:00 2021-07-22 00:00:00 Orders Only Doctor Unassigned, [place] [facility] 1.2840.114 350.1.13.10 4.2.7.2.686 [id number] [id number] [facility] 2021-06-26 00:00:00 2021-06-26 00:00:00 Orders Only Doctor Unassigned, [place] [facility] 1.2840.114 350.1.13.10 4.2.7.2.686 [id number] 009 [id number] [facility] 2021-06-19 14:30:00 2021-06-19 14:30:00 Outpatient R DOUGIE GILES [facility] [id number] [facility] 2021-06-15 00:00:00 2021-06-15 00:00:00 Orders Only Doctor Unassigned, [place] [facility] 1.2840.114 350.1.13.10 4.2.7.2.686 [id number] [id number] [facility] 2021-06-03 15:45:00 2021-06-03 15:45:00 Outpatient JEAN ERWIN [facility] [id number] [facility] 2021-06-03 00:00:00 2021-06-03 00:00:00 Telephone [facility] 1.840.114 350.1.13.10 4.2.7.2.686 [id number] [facility] 2021-05-15 00:00:00 2021-05-15 00:00:00 Telephone Dougie [facility]iles [facility] OFF[facility] BUILD[facility] 1.2840.114 350.1.13.10 4.2.7.2.686 [id number] 044 [id number] [facility] 2021-05-01 00:00:00 2021-05-01 00:00:00 Telephone Liane Negrete [facility] 1..114 350.1.13.10 4.2.7.2.686 [id number] [id number] [facility] 2021-04-30 00:00:00 2021-04-30 00:00:00 Telephone Only, Ang Db Test [facility] MED[facility] OFFICE BUILDING 1..114 350.1.13.10 4.2.7.2.686 [id number] [facility] 2021-04-29 15:00:00 2021-04-29 15:15:00 Laboratory Only Only, Ang Db Test Mannie Vásquez [facility] MEDICAL OFFICE BUILDING 1.114 350.1.13.10 4.2.7.2.686 [id number] [facility] 2021-04-29 15:00:00 2021-04-29 15:00:00 Outpatient R MANNIE VÁSQUEZ [facility] [id number] [facility] 2021-04-29 00:00:00 2021-04-29 00:00:00 Orders Only Doctor Unassigned, [place] [facility] 1.114 350.1.13.10 4.2.7.2.686 [id number] [id number] [facility] 2021-04-11 14:15:00 2021-04-11 15:10:33 Outpatient R DOUGIE GILES [facility] [id number] [facility] 2021-04-11 14:15:00 2021-04-11 14:30:00 Office Visit Dougie Giles [facility] MEDICAL OFFICE BUILDING 1.114 350.1.13.10 4.2.7.2.686 [id number] [id number] [facility] 2021-04-11 14:15:00 2021-04-11 14:15:00 Outpatient R DOUGIE GILES [facility] [id number] [facility] 2021-04-11 14:15:00 2021-04-11 14:15:00 [facility] [id number] [facility] 2021-04-11 14:15:00 2021-04-11 14:15:00 Outpatient R DOUGIE GILES [facility] [id number] [facility] 2021-03-25 15:30:00 2021-03-25 16:15:24 Outpatient R MARGI BOYD [facility] [id number] [facility] 2021-03-25 15:30:00 2021-03-25 16:15:24 Office Visit Margi Boyd [facility] 1.840.114 350.1.13.10 4.2.7.2.686 [id number] [facility] 2021-03-25 15:30:00 2021-03-25 16:15:24 Outpatient R MARGI BOYD [facility] [id number] [facility] 2021-03-08 00:00:00 2021-03-08 00:00:00 Orders Only Doctor Unassigned, [place] [facility] .840.114 350.1.13.10 4.2.7.2.686 [id number] [id number] [facility] 2021-03-07 13:15:00 2021-03-07 14:35:42 [facility] [id number] [facility] 2021-03-07 13:12:17 2021-03-07 14:35:42 [facility].114 350.1.13.10 4.2.7.2.686 [id number] [facility] 2021-03-07 13:15:00 2021-03-07 13:15:00 Outpatient JEAN ERWIN [facility] [id number] [facility] 2021-02-25 00:00:00 2021-02-25 00:00:00 Orders Only Doctor Unassigned, [place] [facility] 1.2840.114 350.1.13.10 4.2.7.2.686 [id number] [id number] [facility] 2021-02-21 00:00:00 2021-02-21 00:00:00 Telephone Angeles [facility]?MARISAMayte [facility] MEDICAL OFFICE BUILDING 1.284.114 350.1.13.10 4.2.7.2.686 [id number] 044 [id number] [facility] 2021-02-01 00:00:00 2021-02-01 00:00:00 Telephone [facility] 1.2840.114 350.1.13.10 4.2.7.2.686 [id number] 092 [id number] [facility] 2021-01-30 00:00:00 2021-01-30 00:00:00 Telephone Chan [facility] MED[facility] OFFICE BUILDING 1.2840.114 350.1.13.10 4.2.7.2.686 [id number] 044 [id number] [facility] 2021-01-30 00:00:00 2021-01-30 00:00:00 Telephone Chan [facility] MEDICAL OFFICE BUILDING 1.2840.114 350.1.13.10 4.2.7.2.686 [id number] 044 [id number] [facility] 2021-01-18 15:11:53 2021-01-18 15:41:53 Office Visit Justine Garcia [facility] Medical Office Building 1.2.840.114 350.1.13.10 4.2.7.2.686 [id number] 044 [id number] [facility] 2021-01-18 15:00:00 2021-01-18 15:00:00 Outpatient R SIERRA, JUSTINE [facility] [id number] [facility] 2021-01-17 00:00:00 2021-01-17 00:00:00 Telephone Dougie [facility]iles [facility] 1.2.840.114 350.1.13.10 4.2.7.2.686 [id number] 044 [id number] [facility] 2020-11-22 00:00:00 2020-11-22 00:00:00 Telephone Dougie Giles [facility] Office Building One 1..840.114 350.1.13.10 4.2.7.2.686 [id number] 044 [id number] [facility] 2020-11-19 00:00:00 2020-11-19 00:00:[address] [facility] Building 1.2.840.114 350.1.13.10 4.2.7.2.686 [id number] 044 [id number] [facility] 2020-10-18 11:40:10 2020-10-18 12:00:10 Street Contractor Visit Lab, Adc [facility] Pob I Chan [facility] Office Building One 1..840.114 350.1.13.10 4.2.7.2.686 [id number] 044 [id number] [facility] 2020-10-18 11:20:00 2020-10-18 11:20:00 Outpatient R [facility] [id number] [facility] 2020-10-11 13:52:36 2020-10-11 14:07:36 Office Visit Dougie Giles [facility] Office Building One 1..840.114 350.1.13.10 4.2.7.2.686 [id number] [facility] 2020-10-11 14:00:00 2020-10-11 14:00:00 Outpatient DOUGIE BLACKMON [facility] [id number] [facility] 2020-10-11 00:00:00 2020-10-11 00:00:00 Orders Only Doctor Unassigned, [place] [facility] 1..840.114 350.1.13.10 4.2.7.2.686 [id number] [facility] 2020-09-28 00:00:00 2020-09-28 00:00:00 Refill Chan Dougie [facility] Building 1..840.114 350.1.13.10 4.2.7.2.686 [id number] [facility] 2020-09-27 14:00:00 2020-09-27 14:00:00 Outpatient Joaquín GILES DOUGIE [facility] [id number] [facility] 2020-08-28 13:43:19 2020-08-28 14:44:37 Office Visit Jelani Cordon [facility] Building 1..840.114 350.1.13.10 4.2.7.2.686 [id number] [facility] 2020-08-28 14:20:00 2020-08-28 14:20:00 Outpatient JELANI NOVAK HOWARD [facility] [id number] [facility] 2020-08-02 00:00:00 2020-08-02 00:00:[address] [facility] Building 1.84.114 350.1.13.10 4.2.7.2.686 [id number] [facility] 2020-07-17 00:00:00 2020-07-17 00:00:00 Orders Only Doctor Unassigned, [place] [facility] 1.2840.114 350.1.13.10 4.2.7.2.686 [id number] [id number] [facility] 2020-07-09 00:00:00 2020-07-09 00:00:00 Dougie Burgess [facility] Office Building One 1.84.114 350.1.13.10 4.2.7.2.686 [id number] [facility] 2020-06-07 17:50:00 2020-06-07 17:50:00 Outpatient JEZ DUNNE [facility] [id number] [facility] 2020-06-07 16:00:00 2020-06-07 16:00:00 Outpatient JEZ DUNNE [facility] [id number] [facility] 2020-05-10 18:10:00 2020-05-10 18:10:00 Outpatient JEZ DUNNE [facility] [id number] [facility] 2020-05-08 00:00:00 2020-05-08 00:00:[address] [facility] Building 1.2840.114 350.1.13.10 4.2.7.2.686 [id number] [facility] 2020-04-02 00:00:00 2020-04-02 00:00:[address] [facility] Building 1..840.114 350.1.13.10 4.2.7.2.686 [id number] [facility] 2020-03-12 00:00:00 2020-03-12 00:00:00 Telephone [facility] 1.2.840.114 350.1.13.10 4.2.7.2.686 [id number] 044 [id number] [facility] 2020-03-09 00:00:00 2020-03-09 00:00:00 Telephone Jelani Cordon [facility] Building 1.2.840.114 350.1.13.10 4.2.7.2.686 [id number] [facility] 2020-01-11 00:00:00 2020-01-11 00:00:00 Telephone Jelani Cordon [facility] Building 1.2.840.114 350.1.13.10 4.2.7.2.686 [id number] [facility] 2019-10-03 00:00:00 2019-10-03 00:00:00 Telephone Jelani Cordon [facility] Building 1.2.840.114 350.1.13.10 4.2.7.2.686 [id number] [facility] 2019-09-22 08:30:00 2019-09-22 08:30:00 Outpatient Joaquín GILES DOUGIE [facility] [id number] [facility] 2019-09-19 13:45:00 2019-09-19 13:45:00 Outpatient Joaquín GILES DOUGIE [facility] [id number] [facility] 2019-09-19 07:50:44 2019-09-19 08:05:44 Telemedici ne Visit Dougie Giles [facility] Building 1.2.840.114 350.1.13.10 4.2.7.2.686 [id number] [facility] 2019-07-19 00:00:00 2019-07-19 00:00:[address] [facility] 1.2840.114 350.1.13.10 4.2.7.2.686 [id number] [facility] 2019-07-18 00:00:00 2019-07-18 00:00:[address] [facility] 1.2840.114 350.1.13.10 4.2.7.2.686 [id number] [facility] 2019-07-11 00:00:00 2019-07-11 00:00:00 Dougie Burgess [facility] Office Building One 1.284.114 350.1.13.10 4.2.7.2.686 [id number] [facility] 2019-06-13 00:00:00 2019-06-13 00:00:00 [address] Cordon [facility] Building 1.2840.114 350.1.13.10 4.2.7.2.686 [id number] [id number] [facility] 2019-05-23 14:20:22 2019-05-23 15:03:09 Office Visit Jelani Cordon [facility] Building 1.2840.114 350.1.13.10 4.2.7.2.686 [id number] [id number] [facility] 2019-05-19 13:41:15 2019-05-19 23:59:00 Outpatient R JELANI CORDON NERIS, JELANI [facility] [id number] [facility] 2019-05-19 13:41:00 2019-05-19 23:59:00 Hospital Encounter Jelani Cordon [facility] 1.2840.114 350.1.13.10 4.2.7.2.686 [id number] [facility] 2019-05-10 13:35:57 2019-05-10 14:47:10 [facility] 1.2.840.114 350.1.13.10 4.2.7.2.686 [id number] [facility] 2019-05-10 00:00:00 2019-05-10 00:00:00 Orders Only Doctor Unassigned, [place] [facility] 1.2.840.114 350.1.13.10 4.2.7.2.686 [id number] [facility] 2019-04-19 00:00:00 2019-04-19 00:00:00 Orders Only Doctor Unassigned, [place] [facility] 1.2.840.114 350.1.13.10 4.2.7.2.686 [id number] [facility] 2016-02-26 03:16:00 2016-02-26 03:16:00 Outpatient Raju_P [facility] [id number] [facility] Results Test Description Test Time Test Comments Results Result Comments Source CT CHEST PULMONARY ANGIOGRAM 05:43:54 ORDERING PHYSICIAN: ?ISAURA NICOLAS HISTORY: Shortness of breath Pulmonary embolism [...] No suspicious focal osseous lesions are seen. [facility] CT ABDOMEN PELVIS W CONTRAST 05:27:07 Exam: [...] trochanter of the femur. Fat[facility]containing [facility] hernia. [id number]2023-12-31 03:56:36* Test Item Value Reference Range Interpretation Comme nts NA (test code = 6805880831) 134 mmol/L 135-145 L K (test code = 5976807229) 4.0 mmol/L 3.5-5.0 CL (test code = 4213034794) 106 mmol/L 98-108 CO2 TOTAL (test code = 5102711861) 21 mmol/L 23-31 L AGAP (test code = 5642257287) 7 2-16 BUN (test code = 3418552762) 40 mg/dL 7-23 H GLUCOSE (test code = 6712542053) 148 mg/dL 70-110 H CREATININE (test code = 2160-0) 0.60 mg/dL 0.60-1.25 TOTAL BILI (test code = 0187135013) 0.3 mg/dL 0.1-1.1 CALCIUM (test code = 0162713804) 9.0 mg/dL 8.6-10.6 T PROTEIN (test code = 1108005466) 7.0 g/dL 6.3-8.2 ALBUMIN (test code = 2650009440) 3.8 g/dL 3.5-5.0 ALK PHOS (test code = 5379451869) 85 U/L 34-122 ALTv (test code = 1742-6) 18 U/L 5-50 AST(SGOT) (test code = 1638447078) 24 U/L 13-40 eGFR (test code = 26497-6) 98.8 mL/min/1.73m2 CKD-EPI eGFR (2020). Assuming creatinine has been stable day-to-day for at least three months, the eGFR indicates Category G1 (>= 90 mL/min/1.73 m2) Lab Interpretation (test code = 01296-6) [facility] [id number] 03:42:41* Test Item Value Reference Range Interpretation [...] 32.1 g/dL 31.2-35.0 RDW-SD (test code = 33788-5) 50.2 fL 38.5-51.6 RDW-CV (test code = 788-0) 15.3 % 12.1-15.4 PLT (test code = 777-3) 210 150-328 MPV (test code = 82585-0) 8.8 fL 9.8-13.0 L NRBC/100 WBC (test code = 5255841375) 0.0 0.0-10.0 NRBC x10^3 (test code = 4642810711) See_Comment [Automated messa ge] The system which generated this result transmitted reference range: 10*3/?L. The reference range was not used to interpret this result as normal/abnormal. GRAN MAT (NEUT) % (test code = 770-8) 66.5 % IMM GRAN % (test code = 8425801415) 0.50 % LYMPH % (test code = 736-9) 21.9 % MONO % (test code = 5905-5) 8.5 % EOS % (test code = 713-8) 2.3 % BASO % (test code = 706-2) 0.3 % GRAN MAT x10^3(ANC) (test code = 5010126776) 3.96 10*3/uL 1.99-6.95 IMM GRAN x10^3 (test code = 5841039915) 0.03 10*3/uL 0.00-0.06 LYMPH x10^3 (test code = 731-0) 1.31 10*3/uL 1.09-3.23 MONO x10^3 (test code = 742-7) 0.51 10*3/uL 0.36-1.02 EOS x10^3 (test code = 711-2) 0.14 10*3/uL 0.06-0.53 BASO x10^3 (test code = 704-7) 0.01-0.09 Lab Interpretation (test code = 30309-2) [facility]normal [facility] (91322)2023 22:21:33* Test Item Value Reference Range Interpretation Comme nts NA (test code = 2908434136) 140 mmol/L 135-145 K (test code = 1436052567) 4.5 mmol/L 3.5-5.0 CL (test code = 4467026736) 105 mmol/L 98-108 CO2 TOTAL (test code = 3591085857) 29 mmol/L 23-31 AGAP (test code = 5440571087) 6 2-16 BUN (test code = 1389060684) 30 mg/dL 7-23 H GLUCOSE (test code = 5315622245) 90 mg/dL 70-110 CREATININE (test code = 4273996570) 0.61 mg/dL 0.60-1.25 TOTAL BILI (test code = 8741434598) 0.5 mg/dL 0.1-1.1 CALCIUM (test code = 2903671226) 9.4 mg/dL 8.6-10.6 T PROTEIN (test code = 7291244239) 6.8 g/dL 6.3-8.2 ALBUMIN (test code = 9874463142) 3.5 g/dL 3.5-5.0 ALK PHOS (test code = 8152528622) 65 U/L 34-122 ALTv (test code = 1742-6) 16 U/L 5-50 AST(SGOT) (test code = 5519443575) 31 U/L 13-40 eGFR (test code = 41051-2) 98.3 mL/min/1.73m2 CKD-EPI eGFR (2020). Assuming creatinine has been stable day-to-day for at least three months, the eGFR indicates Category G1 (>= 90 mL/min/1.73 m2) Lab Interpretation (test code = 39241-2) Abnormal [facility] WITH [id number] 21:58:52* Test Item Value Reference Range Interpretation Comme nts WBC (test code = 6690-2) 6.24 See_Comment [Automated [employer] [facility]] The system which generated this result transmitted reference range: 4.20 - 10.70 10*3/?L. The reference range was not used to interpret this result as normal/abnormal. RBC (test code = 789-8) 4.28 See_Comment [Automated [employer] [facility]] The system which generated this result transmitted [...] 33.2 g/dL 31.2-35.0 RDW-SD (test code = 38852-5) 48.7 fL 38.5-51.6 RDW-CV (test code = 788-0) 14.7 % 12.1-15.4 PLT (test code = 777-3) 209 See_Comment [Automated [employer]] The system which generated this result transmitted reference range: 150 - 328 10*3/?L. The reference range was not used to interpret this result as normal/abnormal. MPV (test code = 30565-4) 8.6 fL 9.8-13.0 L NRBC/100 WBC (test code = 6546627822) 0.0 See_Comment [Automated [employer] ssage] The system which generated this result transmitted reference range: 0.0 - 10.0 /100 WBCs. The reference range was not used to interpret this result as normal/abnormal. NRBC x10^3 (test code = 8820875073) See_Comment [Automated [employer]] The system which generated this result transmitted reference range: 10*3/?L. The reference range was not used to interpret this result as normal/abnormal. GRAN MAT (NEUT) % (test code = 770-8) 66.3 % IMM GRAN % (test code = 7465977178) 0.30 % LYMPH % (test code = 736-9) 21.3 % MONO % (test code = 5905-5) 8.8 % EOS % (test code = 713-8) 3.0 % BASO % (test code = 706-2) 0.3 % GRAN MAT x10^3(ANC) (test code = 0016342780) 4.13 10*3/uL 1.99-6.95 IMM GRAN x10^3 (test code = 6228725241) 0.00-0.06 LYMPH x10^3 (test code = 731-0) 1.33 10*3/uL 1.09-3.23 MONO x10^3 (test code = 742-7) 0.55 10*3/uL 0.36-1.02 EOS x10^3 (test code = 711-2) 0.19 10*3/uL 0.06-0.53 BASO x10^3 (test code = 704-7) 0.01-0.09 Lab Interpretation (test code = 61929-9) Abnormal [facility] METABOLIC PANEL (NA, K, CL, CO2, GLUCOSE, BUN, CREATININE, CA)2023-02-24 22:19:20* Test Item Value Reference Range Interpretation Comme nts NA (test code = 1985757287) 137 mmol/L 135-145 K (test code = 8210867689) 3.8 mmol/L 3.5-5.0 CL (test code = 1745624494) 106 mmol/L 98-108 CO2 TOTAL (test code = 6579829927) 24 mmol/L 23-31 AGAP (test code = 6578651904) 7 2-16 BUN (test code = 7913496553) 25 mg/dL 7-23 H GLUCOSE (test code = 3430558761) 109 mg/dL 70-110 CREATININE (test code = 0764804163) 0.56 mg/dL 0.60-1.25 L CALCIUM (test code = 8255609065) 8.8 mg/dL 8.6-10.6 eGFR (test code = 79977-6) 101.5 mL/min/1.73m2 CKD-EPI eGFR (2020). Assuming creatinine has been stable day-to-day for at least three months, the eGFR indicates Category G1 (>= 90 mL/min/1.73 m2) Lab Interpretation (test code = 03424-9) Abnormal [facility] METABOLIC PANEL (NA, K, CL, CO2, GLUCOSE, BUN, CREATININE, CA)2023-02-05 10:07:11* Test Item Value Reference Range Interpretation Comme nts NA (test code = 7272038899) 141 mmol/L 135-145 K (test code = 2128354663) 3.9 mmol/L 3.5-5.0 CL (test code = 2153414909) 110 mmol/L 98-108 H CO2 TOTAL (test code = 9814346646) 24 mmol/L 23-31 AGAP (test code = 5275696136) 7 2-16 BUN (test code = 7575818027) 26 mg/dL 7-23 H GLUCOSE (test code = 3430712961) 88 mg/dL 70-110 CREATININE (test code = 4444239671) 0.62 mg/dL 0.60-1.25 CALCIUM (test code = 3928634635) 8.5 mg/dL 8.6-10.6 L eGFR (test code = 59021-1) 98.4 mL/min/1.73m2 CKD-EPI eGFR (2020). Assuming creatinine has been stable day-to-day for at least three months, the eGFR indicates Category G1 (>= 90 mL/min/1.73 m2) Lab Interpretation (test code = 93834-6) Abnormal [facility] WITH [id number] 08:38:12* Test Item Value Reference Range Interpretation Comme nts WBC (test code = 6690-2) 7.22 See_Comment [Automated [employer] [facility]] The system which generated this result transmitted reference range: 4.20 - 10.70 10*3/?L. The reference range was not used to interpret this result as normal/abnormal. RBC (test code = 789-8) 3.64 See_Comment L [Automated [employer] [facility]] The system which generated this result transmitted [...] 32.0 g/dL 31.2-35.0 RDW-SD (test code = 06321-1) 50.4 fL 38.5-51.6 RDW-CV (test code = 788-0) 14.9 % 12.1-15.4 PLT (test code = 777-3) 171 See_Comment [Automated [employer] [facility]] The system which generated this result transmitted reference range: 150 - 328 10*3/?L. The reference range was not used to interpret this result as normal/abnormal. MPV (test code = 94494-4) 8.5 fL 9.8-13.0 L NRBC/100 WBC (test code = 5889868978) 0.0 See_Comment [Automated me ssage] The system which generated this result transmitted reference range: 0.0 - 10.0 /100 WBCs. The reference range was not used to interpret this result as normal/abnormal. NRBC x10^3 (test code = 0527972110) See_Comment [Automated messa ge] The system which generated this result transmitted reference range: 10*3/?L. The reference range was not used to interpret this result as normal/abnormal. GRAN MAT (NEUT) % (test code = 770-8) 71.3 % IMM GRAN % (test code = 3344583115) 1.00 % LYMPH % (test code = 736-9) 19.3 % MONO % (test code = 5905-5) 6.9 % EOS % (test code = 713-8) 1.4 % BASO % (test code = 706-2) 0.1 % GRAN MAT x10^3(ANC) (test code = 6466278110) 5.15 10*3/uL 1.99-6.95 IMM GRAN x10^3 (test code = 6380296995) 0.07 10*3/uL 0.00-0.06 H LYMPH x10^3 (test code = 731-0) 1.39 10*3/uL 1.09-3.23 MONO x10^3 (test code = 742-7) 0.50 10*3/uL 0.36-1.02 EOS x10^3 (test code = 711-2) 0.10 10*3/uL 0.06-0.53 BASO x10^3 (test code = 704-7) 0.01-0.09 Lab Interpretation (test code = 14177-4) Abnormal [facility] METABOLIC PANEL (NA, K, CL, CO2, GLUCOSE, BUN, CREATININE, CA)2023-02-04 11:48:34* Test Item Value Reference Range Interpretation Comme nts NA (test code = 7293076777) 141 mmol/L 135-145 K (test code = 0577129088) 3.8 mmol/L 3.5-5.0 CL (test code = 3708591652) 109 mmol/L 98-108 H CO2 TOTAL (test code = 5390493842) 23 mmol/L 23-31 AGAP (test code = 5280870457) 9 2-16 BUN (test code = 0490892427) 27 mg/dL 7-23 H GLUCOSE (test code = 5449446384) 114 mg/dL 70-110 H CREATININE (test code = 4245739220) 0.65 mg/dL 0.60-1.25 CALCIUM (test code = 5803704100) 8.7 mg/dL 8.6-10.6 eGFR (test code = 75192-1) 97.0 mL/min/1.73m2 CKD-EPI eGFR (2020). Assuming creatinine has been stable day-to-day for at least three months, the eGFR indicates Category G1 (>= 90 mL/min/1.73 m2) Lab Interpretation (test code = 57467-3) Abnormal [facility] WITH [id number] 10:36:47* Test Item Value Reference Range Interpretation Comme nts WBC (test code = 6690-2) 9.11 See_Comment [Automated [employer]] The system which generated this result transmitted reference range: 4.20 - 10.70 10*3/?L. The reference range was not used to interpret this result as normal/abnormal. RBC (test code = 789-8) 3.59 See_Comment L [Automated [employer] [facility] [facility]] The system which generated this result transmitted [...] 32.1 g/dL 31.2-35.0 RDW-SD (test code = 36233-0) 50.7 fL 38.5-51.6 RDW-CV (test code = 788-0) 14.7 % 12.1-15.4 PLT (test code = 777-3) 192 See_Comment [Automated messa ge] The system which generated this result transmitted reference range: 150 - 328 10*3/?L. The reference range was not used to interpret this result as normal/abnormal. MPV (test code = 55599-8) 8.6 fL 9.8-13.0 L NRBC/100 WBC (test code = 8983877118) 0.0 See_Comment [Automated me ssage] The system which generated this result transmitted reference range: 0.0 - 10.0 /100 WBCs. The reference range was not used to interpret this result as normal/abnormal. NRBC x10^3 (test code = 0600244738) See_Comment [Automated messa ge] The system which generated this result transmitted reference range: 10*3/?L. The reference range was not used to interpret this result as normal/abnormal. GRAN MAT (NEUT) % (test code = 770-8) 80.5 % IMM GRAN % (test code = 0693775046) 0.70 % LYMPH % (test code = 736-9) 10.6 % MONO % (test code = 5905-5) 7.9 % EOS % (test code = 713-8) 0.1 % BASO % (test code = 706-2) 0.2 % GRAN MAT x10^3(ANC) (test code = 1101483205) 7.33 10*3/uL 1.99-6.95 H IMM GRAN x10^3 (test code = 6954544818) 0.06 10*3/uL 0.00-0.06 LYMPH x10^3 (test code = 731-0) 0.97 10*3/uL 1.09-3.23 L MONO x10^3 (test code = 742-7) 0.72 10*3/uL 0.36-1.02 EOS x10^3 (test code = 711-2) 0.06-0.53 L BASO x10^3 (test code = 704-7) 0.01-0.09 Lab Interpretation (test code = 31155-9) [facility]normal [facility] 17:57:30* Test Item Value Reference Range Interpretation Comme nts Procalcitonin (test code = 4040725038) 0.06 ng/mL <=0.07 STEPHANIE (test code = [...] For further information please refer to:[email or web address] Lab Interpretation (test code = 24581-4) Normal [facility] with [id number] 12:23:54* Test Item Value Reference Range Interpretation Comme nts WBC (test code = 6690-2) 4.43 See_Comment [Automated [employer]] The system which generated this result transmitted reference range: 4.20 - 10.70 10*3/?L. The reference range was not used to interpret this result as normal/abnormal. RBC (test code = 789-8) 3.88 See_Comment L [Automated [employer]] The system which generated this result [...] 31.4 g/dL 31.2-35.0 RDW-SD (test code = 20032-3) 51.0 fL 38.5-51.6 RDW-CV (test code = 788-0) 14.6 % 12.1-15.4 PLT (test code = 777-3) 183 See_Comment [Automated messa ge] The system which generated this result transmitted reference range: 150 - 328 10*3/?L. The reference range was not used to interpret this result as normal/abnormal. MPV (test code = 61315-1) 8.5 fL 9.8-13.0 L NRBC/100 WBC (test code = 3015942508) 0.0 See_Comment [Automated me ssage] The system which generated this result transmitted reference range: 0.0 - 10.0 /100 WBCs. The reference range was not used to interpret this result as normal/abnormal. NRBC x10^3 (test code = 8939375976) See_Comment [Automated messa ge] The system which generated this result transmitted reference range: 10*3/?L. The reference range was not used to interpret this result as normal/abnormal. GRAN MAT (NEUT) % (test code = 770-8) 60.9 % IMM GRAN % (test code = 3149241255) 0.50 % LYMPH % (test code = 736-9) 18.1 % MONO % (test code = 5905-5) 20.3 % EOS % (test code = 713-8) 0.0 % BASO % (test code = 706-2) 0.2 % GRAN MAT x10^3(ANC) (test code = 7326358518) 2.70 10*3/uL 1.99-6.95 IMM GRAN x10^3 (test code = 9169330463) 0.00-0.06 LYMPH x10^3 (test code = 731-0) 0.80 10*3/uL 1.09-3.23 L MONO x10^3 (test code = 742-7) 0.90 10*3/uL 0.36-1.02 EOS x10^3 (test code = 711-2) 0.06-0.53 L BASO x10^3 (test code = 704-7) 0.01-0.09 Lab Interpretation (test code = 11240-1) Abnormal [facility] Metabolic Panel (NA, K, CL, CO2, GLUCOSE, BUN, CREATININE, CA)2023-02-03 10:51:24* Test Item Value Reference Range Interpretation Comme nts NA (test code = 5957593000) 140 mmol/L 135-145 K (test code = 0419805496) 4.0 mmol/L 3.5-5.0 CL (test code = 9795232222) 107 mmol/L 98-108 CO2 TOTAL (test code = 2841461638) 24 mmol/L 23-31 AGAP (test code = 6907021794) 9 2-16 BUN (test code = 5882085851) 24 mg/dL 7-23 H GLUCOSE (test code = 8980762374) 125 mg/dL 70-110 H CREATININE (test code = 5850255663) 0.69 mg/dL 0.60-1.25 CALCIUM (test code = 3810428694) 8.6 mg/dL 8.6-10.6 eGFR (test code = 24230-2) 95.3 mL/min/1.73m2 CKD-EPI eGFR (2020). Assuming creatinine has been stable day-to-day for at least three months, the eGFR indicates Category G1 (>= 90 mL/min/1.73 m2) Lab Interpretation (test code = 22341-4) Abnormal [facility]. METABOLIC PANEL (20098)2023-02-02 17:27:20* Test Item Value Reference Range Interpretation Comme nts NA (test code = 6658596111) 139 mmol/L 135-145 K (test code = 8434567905) 3.8 mmol/L 3.5-5.0 CL (test code = 3775553932) 106 mmol/L 98-108 CO2 TOTAL (test code = 8935331900) 24 mmol/L 23-31 AGAP (test code = 9115849841) 9 2-16 BUN (test code = 3967651538) 25 mg/dL 7-23 H GLUCOSE (test code = 6564268072) 112 mg/dL 70-110 H CREATININE (test code = 2702898140) 0.79 mg/dL 0.60-1.25 TOTAL BILI (test code = 2019090618) 0.3 mg/dL 0.1-1.1 CALCIUM (test code = 9457729996) 8.8 mg/dL 8.6-10.6 T PROTEIN (test code = 2334059517) 6.4 g/dL 6.3-8.2 ALBUMIN (test code = 1174701067) 3.2 g/dL 3.5-5.0 L ALK PHOS (test code = 3233127380) 65 U/L 34-122 ALTv (test code = 1742-6) 25 U/L 5-50 AST(SGOT) (test code = 7540434532) 30 U/L 13-40 eGFR (test code = 45650-9) 95.1 mL/min/1.73m2 STEPHANIE (test code = STEPHANIE) [...] imaging tests). Lab Interpretation (test code = 50485-9) Abnormal [facility] WITH [id number] 17:15:14* Test Item Value Reference Range Interpretation Comme nts WBC (test code = 6690-2) 4.49 See_Comment [Automated [employer]] The system which generated this result transmitted [...] 32.9 g/dL 31.2-35.0 RDW-SD (test code = 16578-3) 49.1 fL 38.5-51.6 RDW-CV (test code = 788-0) 14.6 % 12.1-15.4 PLT (test code = 777-3) 198 See_Comment [Automated messa ge] The system which generated this result transmitted reference range: 150 - 328 10*3/?L. The reference range was not used to interpret this result as normal/abnormal. MPV (test code = 38710-0) 8.4 fL 9.8-13.0 L NRBC/100 WBC (test code = 8688526501) 0.0 See_Comment [Automated [employer] ssage] The system which generated this result transmitted reference range: 0.0 - 10.0 /100 WBCs. The reference range was not used to interpret this result as normal/abnormal. NRBC x10^3 (test code = 3968066223) See_Comment [Automated messa ge] The system which generated this result transmitted reference range: 10*3/?L. The reference range was not used to interpret this result as normal/abnormal. GRAN MAT (NEUT) % (test code = 770-8) 68.4 % IMM GRAN % (test code = 6413663363) 0.20 % LYMPH % (test code = 736-9) 11.8 % MONO % (test code = 5905-5) 19.4 % EOS % (test code = 713-8) 0.0 % BASO % (test code = 706-2) 0.2 % GRAN MAT x10^3(ANC) (test code = 6983976272) 3.07 10*3/uL 1.99-6.95 IMM GRAN x10^3 (test code = 0754379334) 0.00-0.06 LYMPH x10^3 (test code = 731-0) 0.53 10*3/uL 1.09-3.23 L MONO x10^3 (test code = 742-7) 0.87 10*3/uL 0.36-1.02 EOS x10^3 (test code = 711-2) 0.06-0.53 L BASO x10^3 (test code = 704-7) 0.01-0.09 Lab Interpretation (test code = 97255-6) [facility] Whole [id number] 21:47:26* Test Item Value Reference Range Interpretation Comme nts LACTIC ACID (test code = 3693590865) 1.46 mmol/L 0.50-2.20 Lab Interpretation (test cod e = 50865-5) Normal [facility] AllianceSEDIMENT[facility] [id number] 21:42:21* Test Item Value Reference Range Interpretation Comme nts ESR (test code = 95676-1) 16 See_Comment H [Automated messa ge] The system which generated this result transmitted reference range: 0 - 10 mm/HR. The reference range was not used to interpret this result as normal/abnormal. Lab Interpretation (test code = 05583-4) [facility] (66134)2023-01-25 21:24:38* Test Item Value Reference Range Interpretation Comme nts NA (test code = 0197237845) 143 mmol/L 135-145 K (test code = 6046447626) 3.9 mmol/L 3.5-5.0 CL (test code = 9770493227) 105 mmol/L 98-108 CO2 TOTAL (test code = 7677299163) 29 mmol/L 23-31 AGAP (test code = 8181060198) 9 2-16 BUN (test code = 4000133948) 38 mg/dL 7-23 H GLUCOSE (test code = 3506525057) 100 mg/dL 70-110 CREATININE (test code = 8571203824) 0.81 mg/dL 0.60-1.25 TOTAL BILI (test code = 0476773278) 0.2 mg/dL 0.1-1.1 CALCIUM (test code = 3799034468) 9.5 mg/dL 8.6-10.6 T PROTEIN (test code = 2107016892) 6.8 g/dL 6.3-8.2 ALBUMIN (test code = 3830281582) 3.7 g/dL 3.5-5.0 ALK PHOS (test code = 6417900790) 81 U/L 34-122 ALTv (test code = 1742-6) 22 U/L 5-50 AST(SGOT) (test code = 0886497302) 26 U/L 13-40 eGFR (test code = 6483978539) 92.4 mL/min/1.73m2 STEPHANIE (test code = STEPHANIE) [...] imaging tests). Lab Interpretation (test code = 21579-2) Abnormal [facility] WITH [id number] 20:59:14* Test Item Value Reference Range Interpretation Comme nts WBC (test code = 6690-2) 7.29 See_Comment [Automated [employer] [facility]] The system which generated this result transmitted reference range: 4.20 - 10.70 10*3/?L. The reference range was not used to interpret this result as normal/abnormal. RBC (test code = 789-8) 4.52 See_Comment [Automated [employer] [facility]] The system which generated this result transmitted [...] 32.1 g/dL 31.2-35.0 RDW-SD (test code = 68721-5) 49.1 fL 38.5-51.6 RDW-CV (test code = 788-0) 14.2 % 12.1-15.4 PLT (test code = 777-3) 202 See_Comment [Automated [employer]] The system which generated this result transmitted reference range: 150 - 328 10*3/?L. The reference range was not used to interpret this result as normal/abnormal. MPV (test code = 07835-1) 8.8 fL 9.8-13.0 L NRBC/100 WBC (test code = 2853856680) 0.0 See_Comment [Automated [employer] ssage] The system which generated this result transmitted reference range: 0.0 - 10.0 /100 WBCs. The reference range was not used to interpret this result as normal/abnormal. NRBC x10^3 (test code = 3079049707) See_Comment [Automated messa ge] The system which generated this result transmitted reference range: 10*3/?L. The reference range was not used to interpret this result as normal/abnormal. GRAN MAT (NEUT) % (test code = 770-8) 72.5 % IMM GRAN % (test code = 9732554755) 0.30 % LYMPH % (test code = 736-9) 15.4 % MONO % (test code = 5905-5) 8.9 % EOS % (test code = 713-8) 2.6 % BASO % (test code = 706-2) 0.3 % GRAN MAT x10^3(ANC) (test code = 9471238627) 5.29 10*3/uL 1.99-6.95 IMM GRAN x10^3 (test code = 4375945131) 0.00-0.06 LYMPH x10^3 (test code = 731-0) 1.12 10*3/uL 1.09-3.23 MONO x10^3 (test code = 742-7) 0.65 10*3/uL 0.36-1.02 EOS x10^3 (test code = 711-2) 0.19 10*3/uL 0.06-0.53 BASO x10^3 (test code = 704-7) 0.01-0.09 Lab Interpretation (test code = 95297-8) [facility]normal [facility] [id number] 20:35:20* Test Item Value Reference Range Interpretation Comme nts TROPONIN I (test code = 2016199914) 0.006 ng/mL <=0.034 STEPHANIE (test code = [...] of biotin. Lab Interpretation (test code = 93050-1) [facility] [id number] 20:33:03* Test Item Value Reference Range Interpretation Comme nts NT-proBNP (test code = 19254-0) 129 pg/mL <=125 STEPHANIE (test code = STEPHANIE) Result Indeterminate-Consid er causes of NT-proBNP elevation other than Heart failure such as acute coronary syndrome, pulmonary embolism, pulmonary hypertension, sepsis, stroke, and renal dysfunction. Lab Interpretation (test code = 24170-4) [facility] METABOLIC PANEL (06986)2023-01-20 20:23:37* Test Item Value Reference Range Interpretation Comme nts NA (test code = 7188450682) 142 mmol/L 135-145 K (test code = 0952395654) 4.8 mmol/L 3.5-5.0 CL (test code = 1080519345) 109 mmol/L 98-108 H CO2 TOTAL (test code = 6626737783) 26 mmol/L 23-31 AGAP (test code = 7777056442) 7 2-16 BUN (test code = 5985845323) 33 mg/dL 7-23 H GLUCOSE (test code = 3490844861) 123 mg/dL 70-110 H CREATININE (test code = 9746055613) 0.70 mg/dL 0.60-1.25 TOTAL BILI (test code = 9389825600) 0.5 mg/dL 0.1-1.1 CALCIUM (test code = 7107878208) 9.3 mg/dL 8.6-10.6 T PROTEIN (test code = 0267628627) 7.0 g/dL 6.3-8.2 ALBUMIN (test code = 6245109029) 3.8 g/dL 3.5-5.0 ALK PHOS (test code = 0294424346) 64 U/L 34-122 ALTv (test code = 1742-6) 22 U/L 5-50 AST(SGOT) (test code = 6428732807) 44 U/L 13-40 H eGFR (test code = 2641214021) 109.4 mL/min/1.73m2 STEPHANIE (test code = STEPHANIE) [...] imaging tests). Lab Interpretation (test code = 83977-2) [facility]20[facility]-17 20:23:37* Test Item Value Reference Range Interpretation Comme nts MAGNESIUM (test code = 5384735883) 2.2 mg/dL 1.7-2.4 Lab Interpretation (test cod e = 70540-2) [facility] Alliance[facility] WITH [id number] 20:10:16* Test Item Value Reference Range Interpretation Comme nts WBC (test code = 6690-2) 7.96 See_Comment [Automated [employer]] The system which generated this result transmitted reference range: 4.20 - 10.70 10*3/?L. The reference range was not used to interpret this result as normal/abnormal. RBC (test code = 789-8) 4.60 See_Comment [Automated [employer]] The system which generated this result transmitted [...] 32.6 g/dL 31.2-35.0 RDW-SD (test code = 29321-4) 47.1 fL 38.5-51.6 RDW-CV (test code = 788-0) 14.1 % 12.1-15.4 PLT (test code = 777-3) 221 See_Comment [Automated messa ge] The system which generated this result transmitted reference range: 150 - 328 10*3/?L. The reference range was not used to interpret this result as normal/abnormal. MPV (test code = 38135-2) 8.9 fL 9.8-13.0 L NRBC/100 WBC (test code = 2132248189) 0.0 See_Comment [Automated [employer] ssage] The system which generated this result transmitted reference range: 0.0 - 10.0 /100 WBCs. The reference range was not used to interpret this result as normal/abnormal. NRBC x10^3 (test code = 0285717224) See_Comment [Automated messa ge] The system which generated this result transmitted reference range: 10*3/?L. The reference range was not used to interpret this result as normal/abnormal. GRAN MAT (NEUT) % (test code = 770-8) 69.6 % IMM GRAN % (test code = 1722170492) 0.30 % LYMPH % (test code = 736-9) 18.3 % MONO % (test code = 5905-5) 10.2 % EOS % (test code = 713-8) 1.3 % BASO % (test code = 706-2) 0.3 % GRAN MAT x10^3(ANC) (test code = 3554256124) 5.55 10*3/uL 1.99-6.95 IMM GRAN x10^3 (test code = 0959355567) 0.00-0.06 LYMPH x10^3 (test code = 731-0) 1.46 10*3/uL 1.09-3.23 MONO x10^3 (test code = 742-7) 0.81 10*3/uL 0.36-1.02 EOS x10^3 (test code = 711-2) 0.10 10*3/uL 0.06-0.53 BASO x10^3 (test code = 704-7) 0.01-0.09 Lab Interpretation (test code = 61901-4) [facility] ([id number])2022-11-29 23:35:53* Test Item Value Reference Range Interpretation Comme nts NA (test code = 5984261994) 137 mmol/L 135-145 K (test code = 1637054458) 4.4 mmol/L 3.5-5.0 CL (test code = 7802148628) 103 mmol/L 98-108 CO2 TOTAL (test code = 9539516155) 26 mmol/L 23-31 AGAP (test code = 1529611286) 8 2-16 BUN (test code = 7165877625) 30 mg/dL 7-23 H GLUCOSE (test code = 2523999019) 124 mg/dL 70-110 H CREATININE (test code = 2124733712) 0.69 mg/dL 0.60-1.25 TOTAL BILI (test code = 0217112802) 0.3 mg/dL 0.1-1.1 CALCIUM (test code = 7377100939) 9.3 mg/dL 8.6-10.6 T PROTEIN (test code = 6701361825) 6.5 g/dL 6.3-8.2 ALBUMIN (test code = 0323450142) 3.6 g/dL 3.5-5.0 ALK PHOS (test code = 6806573518) 78 U/L 34-122 ALTv (test code = 1742-6) 21 U/L 5-50 AST(SGOT) (test code = 8043173101) 25 U/L 13-40 eGFR (test code = 1005149861) 111.2 mL/min/1.73m2 STEPHANIE (test code = STEPHANIE) [...] imaging tests). Lab Interpretation (test code = 78902-3) Abnormal [facility] WITH [id number] 23:22:49* Test Item Value Reference Range Interpretation Comme nts WBC (test code = 6690-2) 5.98 See_Comment [Automated [employer] [facility]] The system which generated this result transmitted reference range: 4.20 - 10.70 10*3/?L. The reference range was not used to interpret this result as normal/abnormal. RBC (test code = 789-8) 4.09 See_Comment L [Automated [employer] [facility] [facility]] The system which generated this result transmitted [...] 34.2 g/dL 31.2-35.0 RDW-SD (test code = 72624-8) 45.1 fL 38.5-51.6 RDW-CV (test code = 788-0) 13.9 % 12.1-15.4 PLT (test code = 777-3) 210 See_Comment [Automated [employer]] The system which generated this result transmitted reference range: 150 - 328 10*3/?L. The reference range was not used to interpret this result as normal/abnormal. MPV (test code = 82767-0) 8.4 fL 9.8-13.0 L NRBC/100 WBC (test code = 2720587878) 0.0 See_Comment [Automated [employer] ssage] The system which generated this result transmitted reference range: 0.0 - 10.0 /100 WBCs. The reference range was not used to interpret this result as normal/abnormal. NRBC x10^3 (test code = 5161377972) See_Comment [Automated [employer]] The system which generated this result transmitted reference range: 10*3/?L. The reference range was not used to interpret this result as normal/abnormal. GRAN MAT (NEUT) % (test code = 770-8) 68.8 % IMM GRAN % (test code = 2937420146) 0.20 % LYMPH % (test code = 736-9) 18.6 % MONO % (test code = 5905-5) 8.7 % EOS % (test code = 713-8) 3.0 % BASO % (test code = 706-2) 0.7 % GRAN MAT x10^3(ANC) (test code = 7606876519) 4.12 10*3/uL 1.99-6.95 IMM GRAN x10^3 (test code = 6720369539) 0.00-0.06 LYMPH x10^3 (test code = 731-0) 1.11 10*3/uL 1.09-3.23 MONO x10^3 (test code = 742-7) 0.52 10*3/uL 0.36-1.02 EOS x10^3 (test code = 711-2) 0.18 10*3/uL 0.06-0.53 BASO x10^3 (test code = 704-7) 0.04 10*3/uL 0.01-0.09 Lab Interpretation (test code = 34249-6) [facility]normal [facility] (76856)2022-11-26 21:19:14* Test Item Value Reference Range Interpretation Comme nts NA (test code = 7017354488) 135 mmol/L 135-145 K (test code = 5167846042) 4.1 mmol/L 3.5-5.0 CL (test code = 1262251780) 102 mmol/L 98-108 CO2 TOTAL (test code = 7934935610) 27 mmol/L 23-31 AGAP (test code = 9998124957) 6 2-16 BUN (test code = 9847476184) 23 mg/dL 7-23 GLUCOSE (test code = 5225689932) 97 mg/dL 70-110 CREATININE (test code = 8024214824) 0.54 mg/dL 0.60-1.25 L TOTAL BILI (test code = 9620281795) 0.4 mg/dL 0.1-1.1 CALCIUM (test code = 9656384591) 8.9 mg/dL 8.6-10.6 T PROTEIN (test code = 6274999415) 6.5 g/dL 6.3-8.2 ALBUMIN (test code = 5061394835) 3.6 g/dL 3.5-5.0 ALK PHOS (test code = 0245256802) 70 U/L 34-122 ALTv (test code = 1742-6) 20 U/L 5-50 AST(SGOT) (test code = 4500649142) 36 U/L 13-40 eGFR (test code = 5889909524) 147.5 mL/min/1.73m2 STEPHANIE (test code = STEPHANIE) [...] imaging tests). Lab Interpretation (test code = 95103-7) Abnormal [facility] WITH [id number] 20:32:47* Test Item Value Reference Range Interpretation Comme nts WBC (test code = 6690-2) 9.43 See_Comment [Automated [employer]] The system which generated this result transmitted reference range: 4.20 - 10.70 10*3/?L. The reference range was not used to interpret this result as normal/abnormal. RBC (test code = 789-8) 4.13 See_Comment L [Automated [employer]] The system which generated this result transmitted [...] 33.8 g/dL 31.2-35.0 RDW-SD (test code = 55041-0) 45.9 fL 38.5-51.6 RDW-CV (test code = 788-0) 14.0 % 12.1-15.4 PLT (test code = 777-3) 171 See_Comment [Automated [employer]] The system which generated this result transmitted reference range: 150 - 328 10*3/?L. The reference range was not used to interpret this result as normal/abnormal. MPV (test code = 68713-1) 8.5 fL 9.8-13.0 L NRBC/100 WBC (test code = 1255701501) 0.0 See_Comment [Automated [employer] ssage] The system which generated this result transmitted reference range: 0.0 - 10.0 /100 WBCs. The reference range was not used to interpret this result as normal/abnormal. NRBC x10^3 (test code = 1979429012) See_Comment [Automated [employer]] The system which generated this result transmitted reference range: 10*3/?L. The reference range was not used to interpret this result as normal/abnormal. GRAN MAT (NEUT) % (test code = 770-8) 79.4 % IMM GRAN % (test code = 2443647258) 0.20 % LYMPH % (test code = 736-9) 9.1 % MONO % (test code = 5905-5) 8.4 % EOS % (test code = 713-8) 2.7 % BASO % (test code = 706-2) 0.2 % GRAN MAT x10^3(ANC) (test code = 1873528737) 7.49 10*3/uL 1.99-6.95 H IMM GRAN x10^3 (test code = 6985520254) 0.00-0.06 LYMPH x10^3 (test code = 731-0) 0.86 10*3/uL 1.09-3.23 L MONO x10^3 (test code = 742-7) 0.79 10*3/uL 0.36-1.02 EOS x10^3 (test code = 711-2) 0.25 10*3/uL 0.06-0.53 BASO x10^3 (test code = 704-7) 0.01-0.09 Lab Interpretation (test code = 08537-5) Abnormal [facility] METABOLIC PANEL (NA, K, CL, CO2, GLUCOSE, BUN, CREATININE, CA)2022-10-30 09:42:32* Test Item Value Reference Range Interpretation Comme nts NA (test code = 7830378282) 135 mmol/L 135-145 K (test code = 9271135812) 4.3 mmol/L 3.5-5.0 CL (test code = 3136001009) 105 mmol/L 98-108 CO2 TOTAL (test code = 7983643476) 25 mmol/L 23-31 AGAP (test code = 7968287490) 5 2-16 BUN (test code = 6729643946) 12 mg/dL 7-23 GLUCOSE (test code = 4056871210) 104 mg/dL 70-110 CREATININE (test code = 3167435664) 0.59 mg/dL 0.60-1.25 L CALCIUM (test code = 4068529486) 8.8 mg/dL 8.6-10.6 eGFR (test code = 6483488129) 133.2 mL/min/1.73m2 STEPHANIE (test code = STEPHANIE) [...] imaging tests). Lab Interpretation (test code = 08395-0) [facility]normal [facility] 09:42:32* Test Item Value Reference Range Interpretation Comme nts MAGNESIUM (test code = 2461548978) 2.0 mg/dL 1.7-2.4 Lab Interpretation (test cod e = 87317-8) Normal [facility] WITH [id number] 09:34:52* Test Item Value Reference Range Interpretation Comme nts WBC (test code = 6690-2) 5.97 See_Comment [Automated [employer]] The system which generated this result transmitted reference range: 4.20 - 10.70 10*3/?L. The reference range was not used to interpret this result as normal/abnormal. RBC (test code = 789-8) 3.81 See_Comment L [Automated messa ge] The system [...] 33.2 g/dL 31.2-35.0 RDW-SD (test code = 29754-2) 44.7 fL 38.5-51.6 RDW-CV (test code = 788-0) 13.5 % 12.1-15.4 PLT (test code = 777-3) 207 See_Comment [Automated messa ge] The system which generated this result transmitted reference range: 150 - 328 10*3/?L. The reference range was not used to interpret this result as normal/abnormal. MPV (test code = 41256-8) 8.4 fL 9.8-13.0 L NRBC/100 WBC (test code = 0810859558) 0.0 See_Comment [Automated [employer]] The system which generated this result transmitted reference range: 0.0 - 10.0 /100 WBCs. The reference range was not used to interpret this result as normal/abnormal. NRBC x10^3 (test code = 8644424915) See_Comment [Automated [employer]] The system which generated this result transmitted reference range: 10*3/?L. The reference range was not used to interpret this result as normal/abnormal. GRAN MAT (NEUT) % (test code = 770-8) 69.1 % IMM GRAN % (test code = 3510487360) 0.20 % LYMPH % (test code = 736-9) 17.3 % MONO % (test code = 5905-5) 9.7 % EOS % (test code = 713-8) 3.2 % BASO % (test code = 706-2) 0.5 % GRAN MAT x10^3(ANC) (test code = 5946252499) 4.13 10*3/uL 1.99-6.95 IMM GRAN x10^3 (test code = 4667581934) 0.00-0.06 LYMPH x10^3 (test code = 731-0) 1.03 10*3/uL 1.09-3.23 L MONO x10^3 (test code = 742-7) 0.58 10*3/uL 0.36-1.02 EOS x10^3 (test code = 711-2) 0.19 10*3/uL 0.06-0.53 BASO x10^3 (test code = 704-7) 0.03 10*3/uL 0.01-0.09 Lab Interpretation (test code = 92808-3) Abnormal [facility] GLUCOSE (AUTOMATED)2022-10-29 13:19:23* Test Item Value Reference Range Interpretation Comme [facility] POCT GLU (test code = 6994906226) 99 mg/dL 70-110 Lab Interpretation (test cod e = 52949-2) Normal [facility] METABOLIC PANEL (NA, K, CL, CO2, GLUCOSE, BUN, CREATININE, CA)2022-10-29 08:19:42* Test Item Value Reference Range Interpretation Comme [facility] NA (test code = 7543031077) 132 mmol/L 135-145 L K (test code = 7236620845) 4.8 mmol/L 3.5-5.0 CL (test code = 2767620257) 102 mmol/L 98-108 CO2 TOTAL (test code = 1738432834) 25 mmol/L 23-31 AGAP (test code = 3939715638) 5 2-16 BUN (test code = 5221928535) 18 mg/dL 7-23 GLUCOSE (test code = 7810482957) 109 mg/dL 70-110 CREATININE (test code = 3601629684) 0.60 mg/dL 0.60-1.25 CALCIUM (test code = 5597858001) 8.8 mg/dL 8.6-10.6 eGFR (test code = 2742470713) 130.6 mL/min/1.73m2 STEPHANIE (test code = STEPHANIE) [...] imaging tests). Lab Interpretation (test code = 38724-6) [facility]normal [facility] 08:19:42* Test Item Value Reference Range Interpretation Comme nts MAGNESIUM (test code = 9370289143) 1.9 mg/dL 1.7-2.4 Lab Interpretation (test cod e = 54379-1) Normal [facility] WITH [id number] 08:00:22* Test Item Value Reference Range Interpretation Comme nts WBC (test code = 6690-2) 8.45 See_Comment [Automated [employer] [facility]] The system which generated this result transmitted reference range: 4.20 - 10.70 10*3/?L. The reference range was not used to interpret this result as normal/abnormal. RBC (test code = 789-8) 3.98 See_Comment L [Automated [employer] [facility]] The system which generated this result transmitted [...] 33.8 g/dL 31.2-35.0 RDW-SD (test code = 52218-8) 44.5 fL 38.5-51.6 RDW-CV (test code = 788-0) 13.6 % 12.1-15.4 PLT (test code = 777-3) 195 See_Comment [Automated messa ge] The system which generated this result transmitted reference range: 150 - 328 10*3/?L. The reference range was not used to interpret this result as normal/abnormal. MPV (test code = 50944-4) 8.7 fL 9.8-13.0 L NRBC/100 WBC (test code = 8531632117) 0.0 See_Comment [Automated me ssage] The system which generated this result transmitted reference range: 0.0 - 10.0 /100 WBCs. The reference range was not used to interpret this result as normal/abnormal. NRBC x10^3 (test code = 3932825589) See_Comment [Automated messa ge] The system which generated this result transmitted reference range: 10*3/?L. The reference range was not used to interpret this result as normal/abnormal. GRAN MAT (NEUT) % (test code = 770-8) 75.3 % IMM GRAN % (test code = 9243862376) 0.20 % LYMPH % (test code = 736-9) 15.1 % MONO % (test code = 5905-5) 8.5 % EOS % (test code = 713-8) 0.7 % BASO % (test code = 706-2) 0.2 % GRAN MAT x10^3(ANC) (test code = 0464254264) 6.35 10*3/uL 1.99-6.95 IMM GRAN x10^3 (test code = 8252215090) 0.00-0.06 LYMPH x10^3 (test code = 731-0) 1.28 10*3/uL 1.09-3.23 MONO x10^3 (test code = 742-7) 0.72 10*3/uL 0.36-1.02 EOS x10^3 (test code = 711-2) 0.06 10*3/uL 0.06-0.53 BASO x10^3 (test code = 704-7) 0.01-0.09 Lab Interpretation (test code = 57098-4) Abnormal [facility] GLUCOSE (AUTOMATED)2022-10-29 02:05:51* Test Item Value Reference Range Interpretation Comme nts POCT GLU (test code = 6215883797) 162 mg/dL 70-110 H Lab Interpretation (test cod e = 44667-3) [facility]normal [facility]2022-10-28 21:27:56* Test Item Value Reference Range Interpretation Commmarianne nts POCT GLU (test code = 4627311209) 104 mg/dL 70-110 Lab Interpretation (test cod e = 57576-1) Normal [facility]AL[facility]2023-07-25 20:41:29* Test Item Value Reference Range Interpretation Commmarainne nts Procalcitonin (test code = 2817679551) 0.12 ng/mL <=0.07 H STEPHANIE (test code = STEPHANEI) INTERPRETATION OF PROCALCITONIN RESULTS IN ADULTS >= [...] For further information please refer to:[email or web address] Lab Interpretation (test code = 06751-4) [facility]normal [facility] (NA, K, CL, CO2, GLUCOSE, BUN, CREATININE, CA)2022-10-28 17:04:09* Test Item Value Reference Range Interpretation Comme nts NA (test code = 9574369726) 133 mmol/L 135-145 L K (test code = 1252788578) 3.9 mmol/L 3.5-5.0 CL (test code = 3308185069) 103 mmol/L 98-108 CO2 TOTAL (test code = 4564331395) 26 mmol/L 23-31 AGAP (test code = 0169623494) 4 2-16 BUN (test code = 6701155483) 18 mg/dL 7-23 GLUCOSE (test code = 4933250937) 118 mg/dL 70-110 H CREATININE (test code = 9404034370) 0.59 mg/dL 0.60-1.25 L CALCIUM (test code = 7227052866) 8.5 mg/dL 8.6-10.6 L eGFR (test code = 1788980122) 133.2 mL/min/1.73m2 STEPHANIE (test code = STEPHANIE) [...] imaging tests). Lab Interpretation (test code = 55406-5) [facility]normal [facility]2022-10-28 16:57:29* Test Item Value Reference Range Interpretation Comme [facility] POCT GLU (test code = 5316046708) 98 mg/dL 70-110 Lab Interpretation (test cod e = 42723-0) Normal [facility] WITH [id number] 16:01:20* Test Item Value Reference Range Interpretation Comme [facility] WBC (test code = 6690-2) 8.13 See_Comment [Automated [employer]] The system which generated this result transmitted [...] 33.9 g/dL 31.2-35.0 RDW-SD (test code = 52348-9) 44.5 fL 38.5-51.6 RDW-CV (test code = 788-0) 13.6 % 12.1-15.4 PLT (test code = 777-3) 166 See_Comment [Automated messa ge] The system which generated this result transmitted reference range: 150 - 328 10*3/?L. The reference range was not used to interpret this result as normal/abnormal. MPV (test code = 51225-8) 8.6 fL 9.8-13.0 L NRBC/100 WBC (test code = 5317291253) 0.0 See_Comment [Automated [employer] ssage] The system which generated this result transmitted reference range: 0.0 - 10.0 /100 WBCs. The reference range was not used to interpret this result as normal/abnormal. NRBC x10^3 (test code = 5450423756) See_Comment [Automated messa ge] The system which generated this result transmitted reference range: 10*3/?L. The reference range was not used to interpret this result as normal/abnormal. GRAN MAT (NEUT) % (test code = 770-8) 77.6 % IMM GRAN % (test code = 3203776034) 0.20 % LYMPH % (test code = 736-9) 11.1 % MONO % (test code = 5905-5) 10.8 % EOS % (test code = 713-8) 0.2 % BASO % (test code = 706-2) 0.1 % GRAN MAT x10^3(ANC) (test code = 3597991907) 6.30 10*3/uL 1.99-6.95 IMM GRAN x10^3 (test code = 7900706089) 0.00-0.06 LYMPH x10^3 (test code = 731-0) 0.90 10*3/uL 1.09-3.23 L MONO x10^3 (test code = 742-7) 0.88 10*3/uL 0.36-1.02 EOS x10^3 (test code = 711-2) 0.06-0.53 L BASO x10^3 (test code = 704-7) 0.01-0.09 Lab Interpretation (test code = 51103-4) Abnormal [facility] AllianceLava[facility] Acid Whole [id number] 15:43:36* Test Item Value Reference Range Interpretation Comme nts LACTIC ACID (test code = 9325132717) 1.48 mmol/L 0.50-2.20 Lab Interpretation (test cod e = 90671-9) Normal [facility]2022-10-28 13:55:42* Test Item Value Reference Range Interpretation Comme nts POCT GLU (test code = 3502511433) 108 mg/dL 70-110 Lab Interpretation (test cod e = 28264-8) Normal [facility] AllianceGlycosylated Hemoglobin (A1C)2022-10-28 13:35:21* Test Item Value Reference Range Interpretation Comme nts HGB A1C (test code = 4548-4) 5.4 % 4.0-5.7 STEPHANIE (test code = STEPHANIE) Reference RangesNormal: <5.7%Prediabetes: 5.7 - 6.4%Diabetes: > 6.5% Lab Interpretation (test code = 56498-0) Normal [facility]2023-[facility]-25 12:48:08* Test Item Value Reference Range Interpretation Comme nts MAGNESIUM (test code = 4979851398) 2.0 mg/dL 1.7-2.4 Lab Interpretation (test cod e = 38740-1) Normal [facility] AllianceTROPONIN [id number] 04:32:06* Test Item Value Reference Range Interpretation Comme nts TROPONIN I (test code = 7378018450) 0.029 ng/mL <=0.034 STEPHANIE (test code = [...] of biotin. Lab Interpretation (test code = 84670-6) Normal [facility]. METABOLIC PANEL (22966)2022-10-28 04:21:43* Test Item Value Reference Range Interpretation Comme nts NA (test code = 3106668430) 133 mmol/L 135-145 L K (test code = 6757633829) 4.2 mmol/L 3.5-5.0 CL (test code = 9185232160) 100 mmol/L 98-108 CO2 TOTAL (test code = 7676854443) 23 mmol/L 23-31 AGAP (test code = 7365707753) 10 2-16 BUN (test code = 8095625599) 24 mg/dL 7-23 H GLUCOSE (test code = 2274364127) 217 mg/dL 70-110 H CREATININE (test code = 6360679666) 0.79 mg/dL 0.60-1.25 TOTAL BILI (test code = 1745287045) 0.5 mg/dL 0.1-1.1 CALCIUM (test code = 3406076972) 8.6 mg/dL 8.6-10.6 T PROTEIN (test code = 2206183469) 6.6 g/dL 6.3-8.2 ALBUMIN (test code = 1844450328) 3.6 g/dL 3.5-5.0 ALK PHOS (test code = 8529138781) 76 U/L 34-122 ALTv (test code = 1742-6) 20 U/L 5-50 AST(SGOT) (test code = 4542600624) 31 U/L 13-40 eGFR (test code = 5118657340) 95.1 mL/min/1.73m2 STEPHANIE (test code = STEPHANIE) [...] imaging tests). Lab Interpretation (test code = 11728-4) Abnormal [facility] WITH [id number] 03:55:19* Test Item Value Reference Range Interpretation [...] 33.9 g/dL 31.2-35.0 RDW-SD (test code = 05513-1) 44.8 fL 38.5-51.6 RDW-CV (test code = 788-0) 13.6 % 12.1-15.4 PLT (test code = 777-3) 189 See_Comment [Automated message] The system which generated this result transmitted reference range: 150 - 328 10*3/?L. The reference range was not used to interpret this result as normal/abnormal. MPV (test code = 09192-3) 8.7 fL 9.8-13.0 L NRBC/100 WBC (test code = 8040115126) 0.0 See_Comment [Automated message] The system which generated this result transmitted reference range: 0.0 - 10.0 /100 WBCs. The reference range was not used to interpret this result as normal/abnormal. NRBC x10^3 (test code = 5125026968) See_Comment [Automated message] The system which generated this result transmitted reference range: 10*3/?L. The reference range was not used to interpret this result as normal/abnormal. GRAN MAT (NEUT) % (test code = 770-8) 83.5 % IMM GRAN % (test code = 5315173943) 0.60 % LYMPH % (test code = 736-9) 6.0 % MONO % (test code = 5905-5) 9.6 % EOS % (test code = 713-8) 0.1 % BASO % (test code = 706-2) 0.2 % GRAN MAT x10^3(ANC) (test code = 8311097874) 10.59 10*3/uL 1.99-6.95 H IMM GRAN x10^3 (test code = 4898607286) 0.08 10*3/uL 0.00-0.06 H LYMPH x10^3 (test code = 731-0) 0.76 10*3/uL 1.09-3.23 L MONO x10^3 (test code = 742-7) 1.21 10*3/uL 0.36-1.02 H EOS x10^3 (test code = 711-2) 0.06-0.53 L BASO x10^3 (test code = 704-7) 0.01-0.09 Lab Interpretation (test code = 26282-2) [id number] 03:02:22* Test Item Value Reference Range Interpretation Comme nts Blood Culture-Aerobic (test code = 76359-7) No organisms isolated No growth Previous preliminary [...] 2201 CDT Blood Culture-Anaerobic (test code = 77406-8) No organisms isolated No growth Previous preliminary [...] 2201 CDT Lab Interpretation (test code = 21353-3) Normal [facility] CULTURE [id number] 03:02:22* Test Item Value Reference Range Interpretation Comme nts Blood Culture-Aerobic (test code = 49690-5) No organisms isolated No growth Previous preliminary [...] 2201 CDT Blood Culture-Anaerobic (test code = 05544-2) No organisms isolated No growth Previous preliminary [...] 2201 CDT Lab Interpretation (test code = 25779-0) [facility] 03:19:43* Test Item Value Reference Range Interpretation Comme nts NA (test code = 2723031416) 137 mmol/L 135-145 K (test code = 9483364129) 4.6 mmol/L 3.5-5.0 CL (test code = 0163820625) 102 mmol/L 98-108 CO2 TOTAL (test code = 3532706196) 25 mmol/L 23-31 AGAP (test code = 8258535206) 10 2-16 BUN (test code = 3285779992) 16 mg/dL 7-23 GLUCOSE (test code = 2019757751) 147 mg/dL 70-110 H CREATININE (test code = 8298740494) 1.06 mg/dL 0.60-1.25 TOTAL BILI (test code = 9753937411) 0.4 mg/dL 0.1-1.1 CALCIUM (test code = 1220054871) 9.3 mg/dL 8.6-10.6 T PROTEIN (test code = 8569374634) 6.3 g/dL 6.3-8.2 ALBUMIN (test code = 4686527728) 3.7 g/dL 3.5-5.0 ALK PHOS (test code = 4347629852) 85 U/L 34-122 ALTv (test code = 1742-6) 19 U/L 5-50 AST(SGOT) (test code = 1186058915) 23 U/L 13-40 eGFR (test code = 6160750203) 67.7 mL/min/1.73m2 STEPHANIE (test code = STEPHANIE) [...] imaging tests). Lab Interpretation (test code = 03547-4) [id number] 03:10:02* Test Item Value Reference Range Interpretation Comme nts ESR (test code = 11504-2) 20 See_Comment H [Automated [employer] [facility]] The system which generated this result transmitted reference range: 0 - 10 mm/HR. The reference range was not used to interpret this result as normal/abnormal. Lab Interpretation (test code = 77021-3) Abnormal [facility] WITH [id number] 02:50:23* Test Item Value Reference Range Interpretation Comme nts WBC (test code = 6690-2) 8.04 See_Comment [Automated [employer]] The system which generated this result transmitted [...] 32.6 g/dL 31.2-35.0 RDW-SD (test code = 53634-3) 46.5 fL 38.5-51.6 RDW-CV (test code = 788-0) 13.5 % 12.1-15.4 PLT (test code = 777-3) 239 See_Comment [Automated messa ge] The system which generated this result transmitted reference range: 150 - 328 10*3/?L. The reference range was not used to interpret this result as normal/abnormal. MPV (test code = 01947-5) 8.6 fL 9.8-13.0 L NRBC/100 WBC (test code = 4759423859) 0.0 See_Comment [Automated [employer] ssage] The system which generated this result transmitted reference range: 0.0 - 10.0 /100 WBCs. The reference range was not used to interpret this result as normal/abnormal. NRBC x10^3 (test code = 6113176226) See_Comment [Automated messa ge] The system which generated this result transmitted reference range: 10*3/?L. The reference range was not used to interpret this result as normal/abnormal. GRAN MAT (NEUT) % (test code = 770-8) 79.8 % IMM GRAN % (test code = 3033991622) 0.50 % LYMPH % (test code = 736-9) 11.8 % MONO % (test code = 5905-5) 6.8 % EOS % (test code = 713-8) 0.7 % BASO % (test code = 706-2) 0.4 % GRAN MAT x10^3(ANC) (test code = 1731854627) 6.41 10*3/uL 1.99-6.95 IMM GRAN x10^3 (test code = 3285270717) 0.04 10*3/uL 0.00-0.06 LYMPH x10^3 (test code = 731-0) 0.95 10*3/uL 1.09-3.23 L MONO x10^3 (test code = 742-7) 0.55 10*3/uL 0.36-1.02 EOS x10^3 (test code = 711-2) 0.06 10*3/uL 0.06-0.53 BASO x10^3 (test code = 704-7) 0.03 10*3/uL 0.01-0.09 Lab Interpretation (test code = 41754-3) [facility]normal [facility] [id number] 21:13:33* Test Item Value Reference Range Interpretation Comme nts ESR (test code = 26714-7) 11 See_Comment H [Automated messa ge] The system which generated this result transmitted reference range: 0 - 10 mm/HR. The reference range was not used to interpret this result as normal/abnormal. Lab Interpretation (test code = 48242-3) [facility]normal [facility] MET[facility]OLIC PANEL (10868)2022-07-18 20:55:16* Test Item Value Reference Range Interpretation Comme nts NA (test code = 3829729838) 135 mmol/L 135-145 K (test code = 3729957730) 4.7 mmol/L 3.5-5.0 CL (test code = 6347306430) 103 mmol/L 98-108 CO2 TOTAL (test code = 4141216506) 23 mmol/L 23-31 AGAP (test code = 2854713367) 9 2-16 BUN (test code = 8295722385) 15 mg/dL 7-23 GLUCOSE (test code = 3280767374) 89 mg/dL 70-110 CREATININE (test code = 9855522471) 0.71 mg/dL 0.60-1.25 TOTAL BILI (test code = 6144537423) 0.5 mg/dL 0.1-1.1 CALCIUM (test code = 3632789015) 8.9 mg/dL 8.6-10.6 T PROTEIN (test code = 0099209196) 6.1 g/dL 6.3-8.2 L ALBUMIN (test code = 0886652517) 3.5 g/dL 3.5-5.0 ALK PHOS (test code = 1918544115) 82 U/L 34-122 ALTv (test code = 1742-6) 18 U/L 5-50 AST(SGOT) (test code = 6261137251) 24 U/L 13-40 eGFR (test code = 8367065840) 107.6 mL/min/1.73m2 STEPHANIE (test code = STEPHANIE) [...] imaging tests). Lab Interpretation (test code = 32263-2) Abnormal [facility] WITH [id number] 20:37:13* Test Item Value Reference Range Interpretation Comme nts WBC (test code = 6690-2) 6.41 See_Comment [Automated messa ge] The system which [...] 32.9 g/dL 31.2-35.0 RDW-SD (test code = 19956-8) 45.5 fL 38.5-51.6 RDW-CV (test code = 788-0) 13.4 % 12.1-15.4 PLT (test code = 777-3) 246 See_Comment [Automated [employer] ge] The system which generated this result transmitted reference range: 150 - 328 10*3/?L. The reference range was not used to interpret this result as normal/abnormal. MPV (test code = 26546-7) 8.7 fL 9.8-13.0 L IPF % (test code = 5478178226) 0.8 % 1.2-10.7 L Platelet count measured by fluorescence method. NRBC/100 WBC (test code = 5261425553) 0.0 See_Comment [Automated [employer] ssage] The system which generated this result transmitted reference range: 0.0 - 10.0 /100 WBCs. The reference range was not used to interpret this result as normal/abnormal. NRBC x10^3 (test code = 4431050144) See_Comment [Automated [employer] ge] The system which generated this result transmitted reference range: 10*3/?L. The reference range was not used to interpret this result as normal/abnormal. GRAN MAT (NEUT) % (test code = 770-8) 70.9 % IMM GRAN % (test code = 3041590123) 0.30 % LYMPH % (test code = 736-9) 18.3 % MONO % (test code = 5905-5) 8.1 % EOS % (test code = 713-8) 1.9 % BASO % (test code = 706-2) 0.5 % GRAN MAT x10^3(ANC) (test code = 7858828389) 4.55 10*3/uL 1.99-6.95 IMM GRAN x10^3 (test code = 2987637345) 0.00-0.06 LYMPH x10^3 (test code = 731-0) 1.17 10*3/uL 1.09-3.23 MONO x10^3 (test code = 742-7) 0.52 10*3/uL 0.36-1.02 EOS x10^3 (test code = 711-2) 0.12 10*3/uL 0.06-0.53 BASO x10^3 (test code = 704-7) 0.03 10*3/uL 0.01-0.09 Lab Interpretation (test code = 42541-6) Abnormal [facility] AllianceISABELLE [id number] 17:59:56* Test Item Value Reference Range Interpretation Comme nts TROPONIN I (test code = 5690490140) 0.008 ng/mL <=0.034 STEPHANIE (test code = [...] of biotin. Lab Interpretation (test code = 85638-9) Normal [facility] AllianceMAGNESIUM2023-03-07 17:48:33* Test Item Value Reference Range Interpretation Comme nts MAGNESIUM (test code = 6396516402) 1.9 mg/dL 1.7-2.4 Lab Interpretation (test cod e = 77222-5) Normal [facility] MET[facility]OLIC PANEL (93704)2022-06-10 17:48:14* Test Item Value Reference Range Interpretation Comme nts NA (test code = 2937312724) 135 mmol/L 135-145 K (test code = 2746526531) 4.2 mmol/L 3.5-5.0 CL (test code = 7065984508) 104 mmol/L 98-108 CO2 TOTAL (test code = 5109987013) 24 mmol/L 23-31 AGAP (test code = 6881304007) 7 2-16 BUN (test code = 0390078760) 13 mg/dL 7-23 GLUCOSE (test code = 8732790557) 129 mg/dL 70-110 H CREATININE (test code = 7514099242) 0.67 mg/dL 0.60-1.25 TOTAL BILI (test code = 9552566360) 0.6 mg/dL 0.1-1.1 CALCIUM (test code = 8424412490) 8.5 mg/dL 8.6-10.6 L T PROTEIN (test code = 0171131285) 6.0 g/dL 6.3-8.2 L ALBUMIN (test code = 0507342904) 3.2 g/dL 3.5-5.0 L ALK PHOS (test code = 2691615782) 82 U/L 34-122 ALTv (test code = 1742-6) 28 U/L 5-50 AST(SGOT) (test code = 3986345911) 71 U/L 13-40 H eGFR (test code = 4118702607) 115.0 mL/min/1.73m2 STEPHANIE (test code = STEPHANIE) [...] imaging tests). Lab Interpretation (test code = 66050-0) [facility]normal [facility] AllianceLIPASE2023-03-07 17:47:53* Test Item Value Reference Range Interpretation Comme nts LIPASE (test code = 7912760713) 124 U/L 0-220 Lab Interpretation (test cod e = 50713-1) Normal [facility] WITH [id number] 17:34:30* Test Item Value Reference Range Interpretation Comme nts WBC (test code = 6690-2) 8.77 See_Comment [Automated [employer] [facility]] The system which generated this result transmitted reference range: 4.20 - 10.70 10*3/?L. The reference range was not used to interpret this result as normal/abnormal. RBC (test code = 789-8) 4.06 See_Comment L [Automated [employer] [facility]] The system which generated this result transmitted [...] 34.1 g/dL 31.2-35.0 RDW-SD (test code = 99579-7) 42.5 fL 38.5-51.6 RDW-CV (test code = 788-0) 12.8 % 12.1-15.4 PLT (test code = 777-3) 297 See_Comment [Automated [employer]] The system which generated this result transmitted reference range: 150 - 328 10*3/?L. The reference range was not used to interpret this result as normal/abnormal. MPV (test code = 98417-8) 8.1 fL 9.8-13.0 L NRBC/100 WBC (test code = 6411200243) 0.0 See_Comment [Automated [employer] ssage] The system which generated this result transmitted reference range: 0.0 - 10.0 /100 WBCs. The reference range was not used to interpret this result as normal/abnormal. NRBC x10^3 (test code = 1596498158) See_Comment [Automated [employer]] The system which generated this result transmitted reference range: 10*3/?L. The reference range was not used to interpret this result as normal/abnormal. GRAN MAT (NEUT) % (test code = 770-8) 81.2 % IMM GRAN % (test code = 0581450855) 0.20 % LYMPH % (test code = 736-9) 9.5 % MONO % (test code = 5905-5) 7.8 % EOS % (test code = 713-8) 1.0 % BASO % (test code = 706-2) 0.3 % GRAN MAT x10^3(ANC) (test code = 1289986366) 7.12 10*3/uL 1.99-6.95 H IMM GRAN x10^3 (test code = 4204400277) 0.00-0.06 LYMPH x10^3 (test code = 731-0) 0.83 10*3/uL 1.09-3.23 L MONO x10^3 (test code = 742-7) 0.68 10*3/uL 0.36-1.02 EOS x10^3 (test code = 711-2) 0.09 10*3/uL 0.06-0.53 BASO x10^3 (test code = 704-7) 0.03 10*3/uL 0.01-0.09 Lab Interpretation (test code = 91313-1) Abnormal [facility]. METABOLIC PANEL (91439)2022-05-27 00:29:45* Test Item Value Reference Range Interpretation Comme nts NA (test code = 1742212738) 132 mmol/L 135-145 L K (test code = 1992164105) 4.4 mmol/L 3.5-5.0 CL (test code = 5395075688) 101 mmol/L 98-108 CO2 TOTAL (test code = 4666952153) 23 mmol/L 23-31 AGAP (test code = 5298336303) 8 2-16 BUN (test code = 9637345591) 25 mg/dL 7-23 H GLUCOSE (test code = 2458428457) 173 mg/dL 70-110 H CREATININE (test code = 0439338395) 0.71 mg/dL 0.60-1.25 TOTAL BILI (test code = 2718272240) 0.8 mg/dL 0.1-1.1 CALCIUM (test code = 1365282372) 8.7 mg/dL 8.6-10.6 T PROTEIN (test code = 0209365254) 6.4 g/dL 6.3-8.2 ALBUMIN (test code = 4349569608) 3.7 g/dL 3.5-5.0 ALK PHOS (test code = 7503536144) 79 U/L 34-122 ALTv (test code = 1742-6) 26 U/L 5-50 AST(SGOT) (test code = 4907750998) 36 U/L 13-40 eGFR (test code = 2708768571) 107.6 mL/min/1.73m2 STEPHANIE (test code = STEPHANIE) [...] imaging tests). Lab Interpretation (test code = 80908-6) Abnormal [facility] WITH [id number] 23:12:37* Test Item Value Reference Range Interpretation [...] 34.0 g/dL 31.2-35.0 RDW-SD (test code = 86033-2) 46.2 fL 38.5-51.6 RDW-CV (test code = 788-0) 13.5 % 12.1-15.4 PLT (test code = 777-3) 263 See_Comment [Automated message] The system which generated this result transmitted reference range: 150 - 328 10*3/?L. The reference range was not used to interpret this result as normal/abnormal. MPV (test code = 24523-5) 8.4 fL 9.8-13.0 L NRBC/100 WBC (test code = 7225895923) 0.0 See_Comment [Automated message] The system which generated this result transmitted reference range: 0.0 - 10.0 /100 WBCs. The reference range was not used to interpret this result as normal/abnormal. NRBC x10^3 (test code = 9945657875) See_Comment [Automated message] The system which generated this result transmitted reference range: 10*3/?L. The reference range was not used to interpret this result as normal/abnormal. GRAN MAT (NEUT) % (test code = 770-8) 89.4 % IMM GRAN % (test code = 2824394977) 0.30 % LYMPH % (test code = 736-9) 2.5 % MONO % (test code = 5905-5) 7.6 % EOS % (test code = 713-8) 0.0 % BASO % (test code = 706-2) 0.2 % GRAN MAT x10^3(ANC) (test code = 7624481588) 10.17 10*3/uL 1.99-6.95 H IMM GRAN x10^3 (test code = 4460633986) 0.03 10*3/uL 0.00-0.06 LYMPH x10^3 (test code = 731-0) 0.29 10*3/uL 1.09-3.23 L MONO x10^3 (test code = 742-7) 0.87 10*3/uL 0.36-1.02 EOS x10^3 (test code = 711-2) 0.06-0.53 L BASO x10^3 (test code = 704-7) 0.01-0.09 Lab Interpretation (test code = 51397-4) [facility]normal [facility] PAN[facility] (43937)2022-05-03 01:11:07* Test Item Value Reference Range Interpretation Comme nts NA (test code = 7689241076) 134 mmol/L 135-145 L K (test code = 7100081949) 4.5 mmol/L 3.5-5.0 CL (test code = 2485425939) 103 mmol/L 98-108 CO2 TOTAL (test code = 1062376455) 22 mmol/L 23-31 L AGAP (test code = 5933053575) 9 2-16 BUN (test code = 1804229574) 24 mg/dL 7-23 H GLUCOSE (test code = 1037802911) 119 mg/dL 70-110 H CREATININE (test code = 3302136337) 0.79 mg/dL 0.60-1.25 TOTAL BILI (test code = 4891950861) 0.8 mg/dL 0.1-1.1 CALCIUM (test code = 6550681972) 8.5 mg/dL 8.6-10.6 L T PROTEIN (test code = 0890087076) 6.3 g/dL 6.3-8.2 ALBUMIN (test code = 1431123207) 3.6 g/dL 3.5-5.0 ALK PHOS (test code = 6744302925) 57 U/L 34-122 ALTv (test code = 1742-6) 30 U/L 5-50 AST(SGOT) (test code = 4073517734) 55 U/L 13-40 H eGFR (test code = 9420711826) 95.1 mL/min/1.73m2 STEPHANIE (test code = STEPHANIE) [...] imaging tests). Lab Interpretation (test code = 90560-2) Abnormal [facility] WITH [id number] 00:53:44* Test Item Value Reference Range Interpretation Comme nts WBC (test code = 6690-2) 7.18 See_Comment [[employer]] The system which generated this result transmitted reference range: 4.20 - 10.70 10*3/?L. The reference range was not used to interpret this result as normal/abnormal. RBC (test code = 789-8) 4.24 See_Comment L [[employer]] The system which generated this result transmitted [...] 33.8 g/dL 31.2-35.0 RDW-SD (test code = 89714-6) 45.6 fL 38.5-51.6 RDW-CV (test code = 788-0) 13.3 % 12.1-15.4 PLT (test code = 777-3) 192 See_Comment [Automated messa ge] The system which generated this result transmitted reference range: 150 - 328 10*3/?L. The reference range was not used to interpret this result as normal/abnormal. MPV (test code = 58167-1) 8.4 fL 9.8-13.0 L NRBC/100 WBC (test code = 9730032467) 0.0 See_Comment [Automated me ssage] The system which generated this result transmitted reference range: 0.0 - 10.0 /100 WBCs. The reference range was not used to interpret this result as normal/abnormal. NRBC x10^3 (test code = 2905901243) See_Comment [Automated messa ge] The system which generated this result transmitted reference range: 10*3/?L. The reference range was not used to interpret this result as normal/abnormal. GRAN MAT (NEUT) % (test code = 770-8) 72.6 % IMM GRAN % (test code = 7938706833) 0.30 % LYMPH % (test code = 736-9) 12.8 % MONO % (test code = 5905-5) 12.5 % EOS % (test code = 713-8) 1.4 % BASO % (test code = 706-2) 0.4 % GRAN MAT x10^3(ANC) (test code = 3192298851) 5.21 10*3/uL 1.99-6.95 IMM GRAN x10^3 (test code = 0167383188) 0.00-0.06 LYMPH x10^3 (test code = 731-0) 0.92 10*3/uL 1.09-3.23 L MONO x10^3 (test code = 742-7) 0.90 10*3/uL 0.36-1.02 EOS x10^3 (test code = 711-2) 0.10 10*3/uL 0.06-0.53 BASO x10^3 (test code = 704-7) 0.03 10*3/uL 0.01-0.09 Lab Interpretation (test code = 66863-5) Abnormal [facility] Consult Notes Date/Time Note Provider Source 2022-10-30 [...] minimal and clear 75% slough yellow 25% [place] or dull dusky red No normal for [...] N/A 02/23/2018 Surgeon: Easton Talavera MD; Location: [facility] OR Location BASAL CELL CARCINOMA EXCISION N/A 02/23/2018 Surgeon: Easton Talavera MD; Location: [facility] OR Location LACERATION REPAIR (SHX) on back PHACOEMULSIFICATION OF CATARACT WITH INTRAOCULAR LENS IMPLANT Right 08/16/2015 Surgeon: Rafael Grant MD; Location: [facility] OR Location PHACOEMULSIFICATION OF CATARACT WITH INTRAOCULAR LENS IMPLANT Left 09/13/2015 Surgeon: Rafael Grant MD; Location: [facility] OR Location Nutritional status: HGB Date Value Ref Range [...] endo of treatment session COMMUNICATION Primary Language: Samoan Able to Verbalize needs: Yes Vision:WFL Hearing:WFL [...] teaching. Yvonne Harvey PT, DPT Pager Number: [phone] Total time treatments: 0 min Total treatment time: 34 min Yvonne Harvey PT [facility] 2022-10-29 18:20:03 Associated Order(s): CONSULT PS PASTORAL CARE Encounter: The weapons officer naval activity provided the patient and family with a Healing Prayer. The weapons officer naval activity will be available to provide support whenever the patient has a need. Flanging Machine Operator Nusrat Titus MDIV, [facility] Office: [phone] Nusrat Titus [facility] 2022-10-28 09:11:45 Associated Order(s): CONSULT SPEECH [...] was aggressive earlier. Patient not responding to FUNDS DEVELOPMENT DIRECTOR, unable to follow commands. However, he was able to accept bolus when FUNDS DEVELOPMENT DIRECTOR told him "here's a spoon" or "here's [...] ensure resolution. END REPORT RL: 460 AFC: [id number] Previous FUNDS DEVELOPMENT DIRECTOR Services/Swallow History: Patient was seen 07/25/2022 for [...] N/A 02/23/2018 Surgeon: Easton Talavera MD; Location: [facility] OR [facility] BASAL CELL CARCINOMA EXCISION N/A 02/23/2018 Surgeon: Easton Talavera MD; Location: [facility] LACERATION REPAIR (SHX) on back PHACOEMULSIFICATION OF CATARACT WITH INTRAOCULAR LENS IMPLANT Right 08/16/2015 Surgeon: Rafael Grant MD; Location: [facility] OR Location PHACOEMULSIFICATION OF CATARACT WITH INTRAOCULAR LENS IMPLANT Left 09/13/2015 Surgeon: Rafael Grant MD; [place] [facility] [place] [facility] Behavior: Agitated, Decreased ability to follow [...] Cough: No PO trials were administered by FUNDS DEVELOPMENT DIRECTOR. Patient was provided with multiple bites/sips of [...] verbally. Discussed findings of evaluation, recommendations and FUNDS DEVELOPMENT DIRECTOR plan of care. RN and referring provider [...] close monitoring and oral care as able. FUNDS DEVELOPMENT DIRECTOR will f/u for at least one additional [...] puree if OK with MD 2. Recommend FUNDS DEVELOPMENT DIRECTOR therapy 2-5x/wk for 15-45 min/session while in-house to address the following goals: Swallowing: - Patient will tolerate the safest, least restricted po diet texture without overt s/sx of aspiration or other negative effects on medical condition 3. Recommend elevated head of bed and frequent, thorough oral hygiene care due to possible risk for aspiration. Catrachita Sanchez MS, [facility]-FUNDS DEVELOPMENT DIRECTOR Speech-Language Pathologist [email or web address] FUNDS DEVELOPMENT DIRECTOR coverage provided at multiple locations, please use the following numbers based on patient's location to contact this FUNDS DEVELOPMENT DIRECTOR: [place] Speech: [phone] (rehab department) [place] Speech: [phone] (main office) [place] Speech: [phone] ([place] office) If unable to reach FUNDS DEVELOPMENT DIRECTOR at these numbers, please text [phone] Catrachita Sanchez FUNDS DEVELOPMENT DIRECTOR [facility] - Health History and Physical Notes Date/Time Note Provider Source 2022-11-29 20:39:11 Formatting of this n ote is different from the original. MEDICINE [facility] ADMIT H&P Date of Service: 11/29/2022 CHIEF [...] N/A 02/23/2018 Surgeon: Easton Talavera MD; Location: [facility] OR Location BASAL CELL CARCINOMA EXCISION N/A 02/23/2018 Surgeon: Easton Talavera MD; Location: [facility] LACERATION REPAIR (SHX) on back PHACOEMULSIFICATION OF CATARACT WITH INTRAOCULAR LENS IMPLANT Right 08/16/2015 Surgeon: Rafael Grant MD; Location: [facility] PHACOEMULSIFICATION OF CATARACT WITH INTRAOCULAR LENS IMPLANT Left 09/13/2015 Surgeon: Rafael Grant MD; Location: [facility] Family History Family history unknown: Yes [...] decision maker: Luis Felipe Massey (spouse) - [facility] [place] 2022-10-28 06:35:38 Formatting of this n ote [...] N/A 02/23/2018 Surgeon: Easton Talavera MD; Location: [facility] BASAL CELL CARCINOMA EXCISION N/A 02/23/2018 Surgeon: Easton Talavera MD; Location: [facility] OR Location LACERATION REPAIR (SHX) on back PHACOEMULSIFICATION OF CATARACT WITH INTRAOCULAR LENS IMPLANT Right 08/16/2015 Surgeon: Rafael Grant MD; Location: [facility] OR Location PHACOEMULSIFICATION OF CATARACT WITH INTRAOCULAR LENS IMPLANT Left 09/13/2015 Surgeon: Rafael Grant MD; Location: [facility] Family Hx: NA ALLERGIES Allergies Allergen [...] ensure resolution. END REPORT RL: 460 AFC: [id number] SSMENT/PLAN Chauncey Massey is a 77 year [...] Required. Chaz Rosales MD, FCCP, LENNY T [facility] Notes Date/Time Note Provider Source 2023-12-31 02:03:08 Pt given printed and verbal discharge instructions regarding muscle spasm tremors of nervous system, mild dehydration, bladder outlet obstruction, hiatal hernia, and umbilical hernia. Pt verbalized understanding of instructions, pt awake alert oriented, resp reg unlabored, skin w/d, color appropriate for race, moves all ext well, pt encouraged to follow up with pcp. Advised to seek medical attention for new/prolonged/worsening of symptoms. No adverse reaction to meds given in ER noted upon discharge. PIV d'cd, dressing to site, catheter in tact. Awake, alert oriented, resp reg unlabored, skin w/d, pt leaving amb with steady gait, in no apparent distress. Report given to [facility] 2023-12-30 23:12:14 Additional PIV placed for CT at this time. Radha Handy RN [facility] 2023-12-30 22:31:51 Provider at bedside. Pilar Kellogg RN [facility] 2023-12-30 21:25:17 Pt arrived by [facility] with c/o tremors since Thursday. Pt went to [facility] on Thursday and was scanned for blood clots. [facility] scanned his head and extremities. Pt's was concerned they did not CT his chest, and according to EMS she is requesting a CT of his chest. PMH: dementia Elle Park RN [facility] - Health 2023-12-30 21:20:00 [facility] Emergency Department Note Patient Name: Chauncey Massey Date of : 1945 78 year old male Treatment Room: OR2/OR2 Primary Care Physician: Dougie Giles Patient Escorted by: Self [9] Mode of Arrival: EMS - [facility] ([place]) [43] EMS Treatment Prior to ED Arrival: ACID BLEACHER treatment: None Travel and Exposure Screening: Symptoms Does patient have any of these symptoms?: (not recorded) Exposure Screening Has patient had contact with someone with a communicable disease in the last month?: (not recorded) Diseases exposed to:: (not recorded) Is Patient ?: (not recorded) Exposure Date: (not recorded) Chief Complaint: Chief Complaint Patient presents with Tremors History of Present Illness: Chauncey Massey is a 78 year old male with numerous medical conditions as listed below who is brought to the ED by EMS for evaluation of abdominal and chest "spasm" according to spouse. No N/V. No cough. No SOB. No fever or chills. No diarrhea or constipation. Pt has good appetite. 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 Passive Exposure: Never Alcohol Use No. Drug Use No. Past Surgical History: Past Surgical History: Procedure Laterality Date ADJACENT TISSUE REARRANGEMENT N/A 02/23/2018 Surgeon: Easton Talavera MD; Location: [facility] OR Location BASAL CELL CARCINOMA EXCISION N/A 02/23/2018 Surgeon: Easton Talavera MD; Location: [facility] LACERATION REPAIR (SHX) on back PHACOEMULSIFICATION OF CATARACT WITH INTRAOCULAR LENS IMPLANT Right 08/16/2015 Surgeon: Rafael Grant MD; Location: [facility] OR Location PHACOEMULSIFICATION OF CATARACT WITH INTRAOCULAR LENS IMPLANT Left 09/13/2015 Surgeon: Rafael Grant MD; Location: [facility] Review of Systems: Review of Systems Unable to perform ROS: Dementia Physical Exam: ED Triage Vitals [12/30/232127] Weight 82.1 kg (181 lb) Actual or estimated Estimated by patient/family report Height 1.778 m (5' 10") BP 114/81 Pulse 96 Resp 17 Temp 36.7 ?C (98 ?F) Temp source Oral SpO2 98 % Measured on Room air Physical Exam Vitals and nursing note reviewed. Constitutional: General: He is not in acute distress. Appearance: Normal appearance. He is well-developed and normal weight. He is not ill-appearing, toxic-appearing or diaphoretic. HENT: Head: Normocephalic and atraumatic. Nose: Nose normal. No congestion or rhinorrhea. Mouth/Throat: Mouth: Mucous membranes are moist. Pharynx: Oropharynx is clear. No posterior oropharyngeal erythema. Eyes: General: No scleral icterus. Right eye: No discharge. Left eye: No discharge. Extraocular Movements: Extraocular movements intact. Conjunctiva/sclera: Conjunctivae normal. Pupils: Pupils are equal, round, and reactive to light. Cardiovascular: Rate and Rhythm: Normal rate and regular rhythm. Pulses: Normal pulses. Heart sounds: Normal heart sounds. No murmur heard. Pulmonary: Effort: Pulmonary effort is normal. No respiratory distress. Breath sounds: Normal breath sounds. No stridor. No wheezing, rhonchi or rales. Chest: Chest wall: No tenderness. Abdominal: General: Bowel sounds are normal. There is no distension. Palpations: Abdomen is soft. There is no mass. Tenderness: There is no abdominal tenderness. There is no right CVA tenderness, left CVA tenderness, guarding or rebound. Hernia: A hernia is present. Musculoskeletal: General: No tenderness. Normal range of motion. Cervical back: Normal range of motion and neck supple. No rigidity or tenderness. Lymphadenopathy: Cervical: No cervical adenopathy. Skin: General: Skin is warm and dry. Capillary Refill: Capillary refill takes less than 2 seconds. Coloration: Skin is not jaundiced or pale. Findings: No bruising, erythema, lesion or rash. Neurological: Mental Status: He is alert. Mental status is at baseline. Radiology: CT CHEST PULMONARY ANGIOGRAM Final Result ORDERING PHYSICIAN: ISAURA BECK HISTORY: Shortness of breath Pulmonary embolism (PE) suspected, unknown D-dimer COMPARISON: none TECHNIQUE: CT angiogram of the chest with IV contrast. Multiplanar 2D reformatted images were obtained. This study was performed according to ALARA principle for radiation dose reduction. Additional 3D volume rendered images were obtained. FINDINGS: No focal infiltrates or areas of airspace consolidation are seen. Scarring/atelectasis is seen in the lingula and left lower lobe. There are no pleural effusions. There is no pneumothorax. No suspicious endobronchial lesions are seen in the central airways. Moderately sized hiatal hernia is seen in the posterior mediastinum. The heart is normal in size. There is no pericardial effusion. No pathologically enlarged lymph nodes are seen in the mediastinum or lauren. The aorta is normal in caliber. There is no evidence of dissection. Pulmonary arteries are also normal in caliber. No filling defects are seen to suggest the presence of pulmonary emboli. Limited visualization of the upper abdominal structures shows no evidence of acute abnormalities. No suspicious focal osseous lesions are seen. IMPRESSION 1. No pulmonary emboli or aortic dissection. 2. No distinct acute pulmonary parenchymal abnormalities seen. 3. Hiatal hernia. RL: 135 ABDOMEN PELVIS W CONTRAST Final Result Exam: CT Abdomen and Pelvis with contrast, 12/30/2023 11:00 PM. Ordering Physician: ISAURA BECK. History: Abdominal pain, acute, nonlocalized . Comparison: CT abdomen pelvis 11/26/2022. Technique: CT abdomen and pelvis was obtained with intravenous contrast. CT was performed according to ALARA (As Low As Reasonably Achievable). Technical Quality: Adequate. Findings: ABDOMEN/PELVIS: Liver: Normal. Gallbladder/biliary: Contracted gallbladder. No biliary ductal dilation. Pancreas: Normal. Spleen: Normal. Adrenal glands: Nodular thickening of the left adrenal gland Kidneys and ureters: No stone or hydronephrosis Bladder: There is bladder wall thickening. Reproductive organs: Normal for age. Stomach/bowel: Colonic diverticulosis. Large hiatal hernia. No evidence of an obstruction. Lymph nodes: No lymphadenopathy. Peritoneum: No organized fluid collection or free air. Vessels: Atherosclerosis without aneurysm. MUSCULOSKELETAL: Bones: No acute osseous finding. Soft tissues: Small amount of fluid and inflammatory stranding along the left greater trochanter of the femur. Fat-containing umbilical hernia. IMPRESSION Impression: 1. Bladder wall thickening which could reflect cystitis or chronic outlet obstruction. 2. Large hiatal hernia. 3. Colonic diverticulosis. 4. Small amount of fluid and inflammatory stranding adjacent to the greater trochanter of the left femur. 5. Fat-containing umbilical hernia. RL: 6526 End of Report Lab Results: Lab Results CBC WITH DIFF - Abnormal Result Value Ref Range WBC 5.97 4.20 - 10.70 10*3/?L RBC 4.47 4.26 - 5.52 10*6/?L HGB 12.8 12.2 - 16.4 g/dL HCT 39.9 38.4 - 49.3 % MCV 89.3 81.7 - 95.6 fL MCH 28.6 26.1 - 32.7 pg MCHC 32.1 31.2 - 35.0 g/dL RDW-SD 50.2 38.5 - 51.6 fL RDW-CV 15.3 12.1 - 15.4 % PLT 210 150 - 328 10*3/?L MPV 8.8 (*) 9.8 - 13.0 fL NRBC/100 WBC 0.0 0.0 - 10.0 /100 WBCs NRBC x10 3 <0.01 10*3/?L GRAN MAT (NEUT) % 66.5 % IMM GRAN % 0.50 % LYMPH % 21.9 % MONO % 8.5 % EOS % 2.3 % BASO % 0.3 % GRAN MAT x10 3 (ANC) 3.96 1.99 - 6.95 10*3/uL IMM GRAN x10 3 0.03 0.00 - 0.06 10*3/uL LYMPH x10 3 1.31 1.09 - 3.23 10*3/uL MONO x10 3 0.51 0.36 - 1.02 10*3/uL EOS x10 3 0.14 0.06 - 0.53 10*3/uL BASO x10 3 <0.03 0.01 - 0.09 10*3/uL COMP. METABOLIC PANEL (70644) - Abnormal NA 134 (*) 135 - 145 mmol/L K 4.0 3.5 - 5.0 mmol/L CL 106 98 - 108 mmol/L CO2 TOTAL 21 (*) 23 - 31 mmol/L AGAP 7 2 - 16 BUN 40 (*) 7 - 23 mg/dL GLUCOSE 148 (*) 70 - 110 mg/dL CREATININE 0.60 0.60 - 1.25 mg/dL TOTAL BILI 0.3 0.1 - 1.1 mg/dL CALCIUM 9.0 8.6 - 10.6 mg/dL T PROTEIN 7.0 6.3 - 8.2 g/dL ALBUMIN 3.8 3.5 - 5.0 g/dL ALK PHOS 85 34 - 122 U/L ALTv 18 5 - 50 U/L AST(SGOT) 24 13 - 40 U/L eGFR 98.8 mL/min/1.73m2 URINALYSIS - Abnormal APPEARANCE Clear Clear COLOR Yellow Yellow PH 5.0 4.8 - 8.0 SP GRAVITY 1.025 1.003 - 1.030 GLU U QUAL Normal Normal BLOOD Negative Negative KETONES 5 mg/dL (*) Negative PROTEIN Negative Negative UROBILIN Normal Normal BILIRUBIN Negative Negative NITRITE Negative Negative LEUK ALFRED Negative Negative RBC/HPF 3 0 - 3 HPF WBC/HPF <1 0 - 5 HPF BACTERIA Negative Negative MAGNESIUM - Normal MAGNESIUM 1.7 1.7 - 2.4 mg/dL Orders and Treatments: Orders Placed This Encounter Procedures CT CHEST PULMONARY ANGIOGRAM CT ABDOMEN PELVIS W CONTRAST Cbc with Diff Comp. Metabolic Panel (18079) Magnesium Urinalysis Orders Placed This Encounter Medications iopamidol (ISOVUE 370-500 mL) injection 150 mL First Provider Eval: ED Events Date/Time Event User Comments 12/30/232133 Medical Screening Begins ISAURA BECK MD -- 12/30/232133 First Provider Evaluation ISAURA BECK MD -- ED COURSE Diagnosis/Impression as of 12/31/23 0132 Tremors of nervous system Mild dehydration Muscle spasm Bladder outlet obstruction - MOST LIKELY DUE TO BPH Hiatal hernia Umbilical hernia without obstruction and without gangrene Procedures: Procedures MDM: Medical Decision Making Chauncey Massey is a 78 year old male with numerous medial conditions as listed above who is brought to the ED by EMS for evaluation of "abdominal spasm" Problems Addressed: Bladder outlet obstruction: chronic illness or injury Hiatal hernia: chronic illness or injury Mild dehydration: chronic illness or injury Muscle spasm: acute illness or injury Umbilical hernia without obstruction and without gangrene: chronic illness or injury Amount and/or Complexity of Data Reviewed Independent Historian: spouse and EMS External Data Reviewed: labs, radiology and notes. Labs: ordered. Decision-making details documented in ED Course. Radiology: ordered. Decision-making details documented in ED Course. Risk OTC drugs. Flowsheet Documentation: Scoring Tools: No data recorded Disposition/Condition: ED Disposition ED Disposition Disch - Home Condition Stable Comment -- Discharge Medications: Patient's Medications START taking these medications No medications on file CONTINUE taking these medications which have NOT CHANGED ACETAMINOPHEN 500 MG TABLET Take 2 tablets by mouth at bedtime. ASCORBIC ACID, VITAMIN C, 500 MG TABLET Take 1 tablet by mouth in the morning and 1 tablet in the evening. BRIMONIDINE (ALPHAGAN) 0.2 % OPHTHALMIC SOLUTION Take 1 Drop in the morning and 1 Drop at noon and 1 Drop in the evening. CIPROFLOXACIN HCL 500 MG TABLET Take 1 tablet by mouth in the morning and 1 tablet at noon and 1 tablet in the evening. COLLAGENASE 250 UNIT/GRAM OINTMENT Apply to area(s) daily. DEXTROMETHORPHAN-GUAIFENESIN 10-100 MG/5 ML SOLUTION Take 10 mL by mouth every 6 (six) hours as needed for Cough. DOCUSATE 50 MG/5 ML SOLUTION Take 10 mL by mouth in the morning. DOXAZOSIN 2 MG TABLET Take 0.5 tablets by mouth at bedtime. GALANTAMINE 8 MG TABLET Take 1 tablet by mouth 2 (two) times daily. IBUPROFEN 400 MG TABLET Take 1 tablet by mouth every 6 (six) hours as needed (Alternate with Tylenol for fever). LACTOBACILLUS ACIDOPHILUS Take 1 tablet by mouth in the morning. LATANOPROST (XALATAN) 0.005 % OPHTHALMIC DROPS 1 Drop every evening. MELATONIN 10 MG TAB Take 10 mg by mouth at bedtime. MV-MN/IRON/FOLIC ACID/HERB 190 (VITAMIN D3 COMPLETE ORAL) Take 5,000 Units/day by mouth daily. OMEPRAZOLE 20 MG CAPSULE Take 1 capsule by mouth once daily POLYETHYLENE GLYCOL 3350 (MIRALAX) 17 GRAM/DOSE POWDER Take 17 g by mouth in the morning. RISPERIDONE (RISPERDAL) 2 MG TABLET Take 2 tablets by mouth every evening. SODIUM HYPOCHLORITE 0.5% SOLUTION Apply 473 mL to area(s) in the morning. TIMOLOL 0.25 % OPHTHALMIC SOLUTION Place 1 Drop in both eyes in the morning and 1 Drop in the evening. TRAZODONE HCL (TRAZODONE ORAL) Take 25 mg by mouth at bedtime. VITAMIN E (E-PHEROL) 400 UNIT TAB Take 2 tablets by mouth daily. ZINC SULFATE 50 MG ZINC (220 MG) CAPSULE Take 1 capsule by mouth in the morning and 1 capsule at noon and 1 capsule in the evening. START taking Modified Medications as Prescribed No medications on file STOP taking these medications No medications on file Follow-up: Contact information for follow-up Dougie Giles MD Specialty: FAMILY MEDICINE Relationship: PCP - General [address] [facility] [id number] Electronically signed by: Isaura Beck MD 12/31/23 0132 [facility] 2022-12-02 15:48:15 Formatting of this n ote is different from the original. TRANSITIONAL CARE MANAGEMENT ASSESSMENT 12/02/2022 Chauncey Massey [id number] Chauncey Massey is a 77 year old /White male was admitted on 11/29/22 to [facility]. He was discharged on 12/01/22 with discharge disposition of HR- Routine Discharge.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 [facility] 2022-10-28 03:12:38 Formatting of this n ote might be different from the original. Pt sleeping on right side with cuff on left arm. Provider aware [facility] 2022-10-28 01:19:48 Formatting of this n ote might be different from the original. Pt laying on right side with cuff on LUE [facility] 2022-10-27 22:26:42 Formatting of this n ote might be different from the original. Pt started ceftin 3 days ago for foul smelling urine. He was also medicated with tylenol at 1900 [facility] 2022-10-27 22:04:22 Formatting of this n ote might be different from the original. CC: called EMS for pt being febrile [...] and incontinence pads. PMHx: denemia, alzheimers, heart disease Awake, alert, not able to answer any orientation questions, resp reg unlabored, skin hot, color appropriate for race, moves all ext, WC bound at baseline. Imani Pelayo RN [facility] - [facility] 2022-10-27 21:58:00 Formatting of this n ote is different from the original. 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 No other concerns. Pt unable to respond Past Medical History/Immunizations: Past Medical History: Diagnosis Date Arrhythmia Cataract Dementia Esophageal reflux Hyperlipidemia Tetanus received in last 5 years: Unknown Allergies: Allergies Allergen Reactions Bactrim [Sulfamethoxazole-Trimethoprim ] Unknown - See comments Patients reports the patient is unable to walk when taking medication Past Social History: Tobacco Use Never smoked or used smokeless tobacco. Passive Exposure: Never Alcohol Use No. Drug Use No. Past Surgical History: Past Surgical History: Procedure Laterality Date ADJACENT TISSUE REARRANGEMENT N/A 02/23/2018 Surgeon: Easton Talavera MD; Location: [facility] OR Location BASAL CELL CARCINOMA EXCISION N/A 02/23/2018 Surgeon: Easton Talavera MD; Location: [facility] OR Location LACERATION REPAIR (SHX) on back PHACOEMULSIFICATION OF CATARACT WITH INTRAOCULAR LENS IMPLANT Right 08/16/2015 Surgeon: Rafael Grant MD; Location: [facility] OR Location PHACOEMULSIFICATION OF CATARACT WITH INTRAOCULAR LENS IMPLANT Left 09/13/2015 Surgeon: Rafael Grant MD; Location: [facility] OR [facility] Review of Systems: Review of Systems Unable to perform ROS: Dementia Physical Exam: ED Triage Vitals Weight 10/27/222210 70.8 kg (156 lb) Actual or estimated 10/27/222210 Estimated by patient/family report Height 10/27/222210 1.778 m (5' 10") BP 10/27/222214 98/54 Pulse 10/27/222210 105 Resp 10/27/222210 22 Temp 10/27/222210 38.1 ?C (100.6 ?F) Temp source 10/27/222210 Rectal SpO2 10/27/222229 95 % Measured on 10/27/222210 Room air Physical Exam Vitals and nursing note reviewed. Constitutional: General: He is not in acute distress. Appearance: He is not diaphoretic. Comments: Febrile 100.6 rectally HENT: Head: Normocephalic and atraumatic. Eyes: Pupils: Pupils are equal, round, and reactive to light. Neck: Vascular: No JVD. Cardiovascular: Rate and Rhythm: Tachycardia present. Heart sounds: Normal heart sounds. No murmur heard. Pulmonary: Effort: Pulmonary effort is normal. No respiratory distress. Breath sounds: Normal breath sounds. Abdominal: General: There is no distension. Palpations: Abdomen is soft. Tenderness: There is no abdominal tenderness. Genitourinary: Comments: Diaper soaked with urine Musculoskeletal: General: Normal range of motion. Cervical back: Neck supple. Skin: General: Skin is warm and dry. Comments: Skin break down on right heel, left hip, very mild redness on sacrum with no breakdown Neurological: Mental Status: He is alert. Mental status is at baseline. He is disoriented. Comments: Patient grabs people too hard and won't let go, often cusses Radiology: No orders to display Lab Results: Lab Results CBC WITH DIFF - Abnormal Result [...] 0.01 - 0.09 10*3/uL COMP. METABOLIC PANEL (48823) - Abnormal NA 133 (*) 135 - [...] Negative Negative URINALYSIS TROPONIN I THROAT CULTURE EKG: If EKG completed, see Procedure Note. Orders and Treatments: Orders Placed This Encounter Procedures XR CHEST 1 VW URINALYSIS CBC WITH DIFF COMP. METABOLIC PANEL (25728) Lactic Acid Whole Blood Lactic Acid Whole Blood TROPONIN I COVID-19 (ID NOW TESTING) RAPID STREP SCREEN FOR GROUP A THROAT CULTURE LAB ONLY COVID INTERPRETATION No orders of the defined types were placed in this encounter. First Provider Eval: ED Events Date/Time Event User Comments 10/27/222205 Medical Screening Begins MONICA RYAN NP -- 10/27/222205 First Provider Evaluation MONICA RYAN NP -- ED COURSE Diagnosis/Impression as of 10/28/22 0143 Fever in adult Pneumonia of right lower lobe due to infectious organism Procedures: Procedures MDM: Medical Decision Making Febrile workkup Cxr is normal Lactate normal Elevated WBC Covid neg, strep neg IV fluids given to help cool Signed out pending urine, repeat temp and further eval Problems Addressed: Fever in adult: acute illness or injury Amount and/or Complexity of Data Reviewed Independent Historian: spouse Details: Labs: ordered. Radiology: ordered. Risk Prescription drug management. Flowsheet Documentation: Scoring Tools: No data recorded Disposition/Condition: ED Disposition None Discharge Medications: Patient's Medications START taking these medications No medications [...] taking these medications No medications on file Follow-up: Electronically signed by: Marcie Nickerson DO 10/27/22 1973 [employer] EMERGENC[employer] PH[employer]IAN STAFF [facility]
[2024-05-17] MEDS ORDERED: NA CHLORIDE 0.9% 250 ML ONE (15:16)
[2024-05-17 15:33] LABS: Absolute Eosinophils 0.1 K/uL (0-0.5); Absolute Lymphocytes (CBC) 1.1 K/uL (0.7-4.9); Absolute Monocytes 0.6 K/uL (0.1-1.3); Absolute Neutrophil 5.6 K/uL (1.8-8.0); Basophils % 0.3 % (0-1.3); Eosinophils % 1.9 % (0-4.4); Hematocrit 36.3 % (39.6-49.0); Hemoglobin 12.1 g/dL (13.6-17.9); Lymphocytes % 14.9 % (15.3-44.8); MCHC 33.2 g/dL (32.0-36.0); MCV 84.4 fL (80-100); MPV 6.5 fL (7.6-11.3); Monocytes % 7.6 % (3.3-12.3); Neutrophils % 75.3 % (41.7-73.7); Nucleated Red Blood Cells % 0.1 % (0-0); Platelets 230 thou/uL (152-406); Red Cell Distribution Width 15.2 % (12.1-15.2)
[2024-05-17 15:39] LABS: Specific Gravity 1.026 (1.005-1.030); Sqamous Epithelial <5 /HPF (None Seen); Urine Bacteria <20 /HPF (<20); Urine Bilirubin NEGATIVE (Negative); Urine Blood Trace (Negative); Urine Clarity Extremely Turbid (Clear); Urine Color Yellow (Yellow); Urine Crystals Unidentified Few /HPF (None Seen); Urine Culture Reflex Order REFLEXED; Urine Glucose NEGATIVE (Negative); Urine Ketones NEGATIVE (Negative); Urine Microscopic Reflex YN ORDER UMIC; Urine Mucus 2+ /HPF (None Seen); Urine Nitrite 2+ (Negative); Urine Protein 1+ (Negative); Urine RBC 21-50 /HPF (None Seen); Urine Urobilinogen Normal (Normal); Urine WBC >50 /HPF (<5); Urine WBC Clump Occasional /HPF (None Seen); Urine Yeast (Budding) Occasional /HPF (None Seen)
[2024-05-17 15:51] LABS: Albumin 2.6 g/dL (3.4-5.0); Albumin/Globulin Ratio 0.7 (1.1-1.8); Anion Gap 8.9 mEq/L (5.0-15.0); Bilirubin Total 0.2 mg/dL (0.2-1.0); Globulin 3.9 g/dL (2.3-3.5); Potassium 3.9 mEq/L (3.5-5.1); Protein, Total 6.5 g/dL (6.4-8.2)
[2024-05-17] MEDS ORDERED: CEFTRIAXONE 1000 MG/VIAL ONE (15:56)
--- NOTE | 2024-05-17 15:58 | ER ---
Nurse's Notes [facility] Name: Chauncey Dunn Age: 79 yrs Sex: Male : 1945 Arrival Date: 05/17/2024 Time: 14:34 Bed 7 Private MD: Diagnosis: UTI/ Urinary tract infection, site not specified Presentation: 05/17 14:40 Chief complaint: Spouse and/or significant other states: foul smelling urine starting ko1 yesterday, went to wound care today and brought over here for urinalysis. Coronavirus screen: At this time, the client does not indicate any symptoms associated with coronavirus-19. Ebola Screen: No symptoms or risks identified at this time. Initial Sepsis Screen: Does the patient meet any 2 criteria? No. Patient's initial sepsis screen is negative. Does the patient have a suspected source of infection? No. Patient's initial sepsis screen is negative. Risk Assessment: Do you want to hurt yourself or someone else? Patient reports no desire to harm self or others. Onset of symptoms was May 17, 2024. 14:40 Method Of Arrival: EMS ko1 14:40 Acuity: ANNEMARIE 3 ko1 Triage Assessment: 14:40 General: Appears in no apparent distress. Behavior is cooperative. Pain: Unable to use ko1 pain scale. Does not appear to understand pain scale. EENT: No deficits noted. No signs and/or symptoms were reported regarding the EENT system. Neuro: Alzheimer's . Cardiovascular: No deficits noted. Respiratory: No deficits noted. GI: No deficits noted. No signs and/or symptoms were reported involving the gastrointestinal system. : Parent/caregiver report the patient having incontinence odor. Derm: Parent/caregiver reports the patient having wounds to bilateral ankles, being seen at wound care center. Musculoskeletal: contractures to legs and right arm. Historical: - Allergies: 14:42 Bactrim; ko1 - PMHx: 14:42 Alzheimer's disease; Glaucoma; Hypertensive disorder; ko1 - PSHx: 14:42 back; cataract; ko1 - Immunization history:: Adult Immunizations unknown. - Infectious Disease History:: Denies. - Social history:: Smoking status: Patient denies any tobacco usage or history of. Screenin:37 [facility] ED Fall Risk Assessment (Adult) History of falling in the last 3 months, ko1 including since admission No falls in past 3 months (0 pts) Confusion or Disorientation Yes (5 pts) Intoxicated or Sedated No (0 pts) Impaired Gait Yes (1 pt) Mobility Assist Device Used No (0 pt) Altered Elimination Yes (1 pt) Score/Fall Risk Level 3 or more points = High Risk Oriented to surroundings, Maintained a safe environment, Educated pt \T\ family on fall prevention, incl call for assistance when getting out of bed, Assessed \T\ reinforced patient's understanding of fall precautions, Provided non-skid footwear, Hourly rounding (assess needs \T\ fall precautionary measures) done, Used ambulatory aids as needed (educated on \T\ assisted with), Apply high fall risk patient identification: yellow non skid footwear/ fall signage, Remained w/in arm's length of patient and in sight while toileting, Offered frequent toileting (1:1 observation), Remained with patient while ambulating, Utilized family, sitter, or virtual road maker as indicated. Abuse screen: Denies threats or abuse. Denies injuries from another. Nutritional screening: No deficits noted. Tuberculosis screening: No symptoms or risk factors identified. Assessment: 15:37 Reassessment: see triage note. ko1 Vital Signs: 14:40 BP 114 / 87; Pulse 83; Resp 19; Temp 97.1; Pulse Ox 97% on R/A; ko1 16:09 BP 107 / 77; Pulse 70; Resp 18; Pulse Ox 99% ; ko1 ED Course: 14:40 Arm band placed on right wrist. Patient placed in an exam room, on a stretcher, on ko1 pulse oximetry, Patient notified of wait time. 14:41 Patient arrived in ED. ko1 14:41 Magaly Rudolph FNP-C is PHCP. kb 14:41 Jose Elias Salazar MD is Attending Physician. kb 15:29 CMP Sent. ko1 15:29 CBC with Diff Sent. ko1 15:29 Urinalysis w/ reflexes Sent. ko1 15:29 Initial lab(s) drawn, by me, sent to lab. Inserted saline lock: 22 gauge in right zm wrist, using aseptic technique. Blood collected. Flushed with 10 mL NS. 15:33 Triage completed. ko1 15:37 No provider procedures requiring assistance completed. Urine collected: straight cath ko1 specimen, clear, randee colored. Straight cath inserted, using sterile technique, 14 Fr. Specimen obtained. Returned randee urine. Patient tolerated well. 15:37 Patient has correct armband on for positive identification. Allergy band placed. Fall ko1 risk band placed. Bed in low position. Call light in reach. Side rails up X2. Provided Education on: labs. Pulse ox on. NIBP on. Door closed. Noise minimized. Lights dimmed. Warm blanket given. Pillow given. 15:54 Shira Parish, RN is Primary Nurse. ko1 16:02 Urine Culture Sent. ko1 16:35 Awaiting transportation. ko1 16:35 IV discontinued, intact, bleeding controlled, No redness/swelling at site. Pressure ko1 dressing applied. Administered Medications: 15:29 Drug: NS 0.9% IV 250 ml IV at bolus once; to be given as a bolus over 30 minutes Route: ko1 IV; Rate: bolus; Site: right hand; 15:55 Follow up: Response: No adverse reaction; IV Status: Completed infusion; IV Intake: ld1 250ml 16:10 Follow up: Response: No adverse reaction; IV Status: Completed infusion; IV Intake: ko1 250ml 15:58 Drug: Rocephin IV 1 grams IV at calculated rate once; Given slow IV push per pharmacy ko1 instructions Route: IV; Rate: calculated rate; Site: right hand; 16:00 Follow up: Response: No adverse reaction; IV Status: Completed infusion; IV Intake: [id number] Medication: 15:37 VIS not applicable for this client. ko1 Intake: 15:55 IV: 250ml; Total: 250ml. ld1 16:00 IV: 10ml; Total: 260ml. ko1 16:10 IV: 250ml; Total: 510ml. ko1 Outcome: 15:58 Discharge ordered by MD. marcelo 17:18 Discharged to home via ambulance, with family, ko1 17:18 Condition: stable 17:18 Discharge instructions given to family, EMS, Instructed on discharge instructions, follow up and referral plans. medication usage, Demonstrated understanding of instructions, follow-up care, medications, Prescriptions given X 1, 17:19 Patient left the ED. ko1 Signatures: Magaly Rudolph, Tori Steel RN RN ldVy Drake Kathy, RN RN ko1
--- NOTE | 2024-05-17 15:59 | EDPHYS ---
Physician Documentation [facility] Name: Chauncey Dunn Age: 79 yrs Sex: Male : 1945 Arrival Date: 05/17/2024 Time: 14:34 Bed 7 Private MD: ED Physician Jose Elias Salazar HPI: 05/17 15:19 This 79 yrs old Male presents to ER via Unassigned with complaints of Urinary Problem. kb 15:19 Pt is a 79 year old male who presents for "strong smelling urine" that started kb yesterday. states she knows the smell and it normally means he has a UTI. States [facility] and they call in [facility]. Pt was being seen at wound care today so she decided to bring him here for a urinalysis since they were already at the hospital. Denies fever, vomiting, diarrhea. reports normal systolic bp around 105. . Historical: - Allergies: 14:42 Bactrim; ko1 - PMHx: 14:42 Alzheimer's disease; Glaucoma; Hypertensive disorder; ko1 - PSHx: 14:42 back; cataract; ko1 - Immunization history:: Adult Immunizations unknown. - Infectious Disease History:: Denies. - Social history:: Smoking status: Patient denies any tobacco usage or history of. ROS: 15:21 Constitutional: As per HPI kb Exam: 15:21 Head/Face: Normocephalic, atraumatic. ENT: Moist Mucous membranes Respiratory: kb Respirations even and unlabored. No increased work of breathing. Talking in full sentences Abdomen/GI: Soft, non-tender. No distention 15:21 Constitutional: The patient appears alert, awake, 15:21 Neuro: Exam negative for acute changes, Vital Signs: 14:40 BP 114 / 87; Pulse 83; Resp 19; Temp 97.1; Pulse Ox 97% on R/A; ko1 16:09 BP 107 / 77; Pulse 70; Resp 18; Pulse Ox 99% ; ko1 MDM: 14:41 Medical Screening Exam initiated kb 15:22 Differential diagnosis: UTI, dehydration. Data reviewed: vital signs, nurses notes. kb Historians other than the Patient: Spouse/Significant Other: . 15:57 Counseling: I had a detailed discussion with the patient and/or guardian regarding the kb historical points, exam findings, and any diagnostic results supporting the discharge/admit diagnosis, lab results, the need for outpatient follow up, a family practitioner, to return to the emergency department if symptoms worsen or persist or if there are any questions or concerns that arise at home. 05/17 14:41 Order name: Urinalysis w/ reflexes; Complete Time: 15:40 kb 05/17 14:51 Order name: CBC with Diff; Complete Time: 15:36 kb 05/17 14:51 Order name: CMP; Complete Time: 15:52 kb 05/17 15:43 Order name: Urine Culture EDMS 05/17 14:53 Order name: IV Start; Complete Time: 15:29 kb Administered Medications: 15:29 Drug: NS 0.9% IV 250 ml IV at bolus once; to be given as a bolus over 30 minutes Route: ko1 IV; Rate: bolus; Site: right hand; 15:55 Follow up: Response: No adverse reaction; IV Status: Completed infusion; IV Intake: ld1 250ml 16:10 Follow up: Response: No adverse reaction; IV Status: Completed infusion; IV Intake: ko1 250ml 15:58 Drug: Rocephin IV 1 grams IV at calculated rate once; Given slow IV push per pharmacy ko1 instructions Route: IV; Rate: calculated rate; Site: right hand; 16:00 Follow up: Response: No adverse reaction; IV Status: Completed infusion; IV Intake: [id number] Disposition: 19:24 Co-signature as Attending Physician, Jose Elias Salazar MD I reviewed the patient's care rn provided by the Advanced Practice Provider and agree with the diagnosis and treatment plan. Disposition Summary: 05/17/24 15:58 Discharge Ordered Notes: Location: Home kb Condition: Stable kb Diagnosis - UTI/ Urinary tract infection, site not specified kb Followup: kb - With: Emergency Department - When: As needed - Reason: Worsening of condition Followup: kb - With: Private Physician - When: 2 - 3 days - Reason: Recheck today's complaints, Continuance of care, Re-evaluation by your physician Discharge Instructions: - Discharge Summary Sheet kb - Urinary Tract Infection, Adult, [id number] kb Forms: - Medication Reconciliation Form kb - Antibiotic Education kb - Prescription Opioid Use kb - Patient Portal Instructions kb - Leadership Thank You Letter kb Prescriptions: - Cipro 500 mg Oral tablet - take 1 tablet ORAL route every 12 hours for 10 days; 20 tablet; Refills: 0, kb Product Selection Permitted Signatures: Dispatcher [employer] Magaly Kang, DAI PHILLIPS-Jose Elias Romeo MD MD rn Oliver, Kathy, RN RN ko1 Tori Lockhart RN ld1 Corrections: (The following items were deleted from the chart) 14:52 14:52 CBC+H.LAB.BRZ ordered. EDMS EDMS 14:52 14:52 COMPREHENSIVE METABOLIC PANEL+C.LAB.BRZ ordered. EDMS EDMS 15:22 15:19 Pt is a 79 year old male who presents for "strong smelling urine" that started kb yesterday. states she knows the smell and it normally means he has a UTI. States [facility] and [facility]. Pt was being seen at wound care today so she decided to bring him here for a urinalysis since they were already at the hospital. Denies fever, vomiting, diarrhea. . kb
[2024-05-17 20:56] VITALS: TEMP 97.1
[2024-05-17 20:57] VITALS: BP 107/77; O2SAT 99
== END 2024-05-17 17:19 | disposition home or self-care (01) ==
LOC: ER 14:34
DX: N39.0 Urinary tract infection, site not specified (principal)
CPT/HCPCS: 87088; 85025; 81001; 87086; 36415; 80053; 51702; 96374; 99285; J7050; J0696; 87077; 87186

== ENCOUNTER 2024-06-15 11:51 | Emergency (ER) | payer OTHER, BC ==
--- OUTSIDE RECORDS SUMMARY | 2024-06-15 12:04 | XMS REPORT | Continuity of Care Document ---
Author Name Unknown Address [address] [place] [address] [facility] [place] Address [address] [place] [address] Care Team Providers Care Rn Homecare Name Role Phone DOUGIE GILES Primary Care Physician Unavailab MONICA Deluca Attending Clinician Unavailab ISAURA Ceja Attending Clinician Unavailable ISAURA BECK Attending Clinician Unavailable Isaura Beck MD Attending Clinician [phone] NATALIE TRIVEDI Attending Clinician Unavaila Joseph Joe Attending Clinician Unavailable Al CONNELLY, Joseph Martin Attending Clinician [phone] NICANOR LENTZ Attending Clinician Unavailable Nicanor Lentz DO Attending Clinician [phone] Shira Mead RN Attending Clinician Unavail able MARQUES HINES Attending Clinician Unavailable Uriarte PAC, Andreina S Attending Clinician [phone] Marlena Rios MD Attending Clinician [phone] Marques Hines DO Attending Clinician [phone] Virginia Soni DO Attending Clinician [phone] VIR[place] SONI Attending Clinician Unavailab Ena Montenegro RN Attending Clinician Unavailab Juno Hand MD Attending Clinician [phone] OLMAN DAVID Attending Clinician Unavailable Frankie KEY HOLDER, Olman Attending Clinician [phone] Doctor Unassigned, [place] Attending Clinician U arronailable LYDIA TRISTAN Attending Clinician Unavailab Marcie Lazar DO Attending Clinician [phone] Chaz Roberts MD Attending Clinician [phone] Farooq KEY HOLDER, Natalie Attending Clinician [phone] Fantasma Marroquin MD Attending Clinician [phone] Jean Jarrett MD Attending Clinician [phone] Dougie Giles MD Attending Clinician [phone] DOUGEI GILES Attending Clinician Unavailable MARLENA RIOS Attending Clinician Unavailable Yaritza Aguirre Anavella Attending Cli nician Unavailable JOSEFINA DASILVA Attending Clinician Unavailable Josefina Dasilva MD Attending Clinician [phone] Nurse, Adc Surgery Gu Attending Clinician Jelani Bray MD Attending Clinician [phone] JEAN JARRETT Attending Clinician Unavailable Liane Negrete RN Attending Clinician Unavailable Only, Ang Db Test Attending Clinician Unavailabl Mannie Vuong DO Attending Clinician [phone] MANNIE VÁSQUEZ Attending Clinician Unavail able DOTTIE BOYDELA Mayte Attending Clinician Unavailable Gramm KEY HOLDER, Margi A Attending Clinician [phone] Justine Collins Attending Clinician + [phone] JUSTINE GARCIA Attending Clinician Unavailable Lab, Adc Fam Pob I Attending Clinician Unavailab JELANI Álvarez Attending Clinician Unavail able JELANI CORDON Attending Clinician Unavail able JEZ ALEXANDER Attending Clinician Unavailable Shi_Olga Attending Clinician Unavailable MONICA RYAN Admitting Clinician Unavailab ISAURA Ceja Admitting Clinician Unavailable Joseph MELENDEZ Admitting Clinician Unavailable MARQUES HINES Admitting Clinician Unavailable Marques Hines DO Admitting Clinician [phone] [place] SONI Admitting Clinician Unavailab OLMAN Anglin Admitting Clinician Unavailable CHAZ ROBERTS Admitting Clinician Unavailable Chaz Roberts MD Admitting Clinician [phone] NICANOR LENTZ Admitting Clinician Unavailable MARLENA RIOS Admitting Clinician Unavailable Marlena Rios MD Admitting Clinician [phone] Tomasa Aguirre Anav Admitting Clinician U arronailable JOSEFINA DASILVA Admitting Clinician Unavailable Josefina Dasilva MD Admitting Clinician [phone] JELANI CORDON Admitting Clinician Unavail able Raju_P Admitting Clinician Unavailable Payers Payer Name Policy Type Policy Number Effective Date Expirati on Date Source [facility] [id number] 2021 00:00:00 MEDICARE PART A \\T\\ B [id number] 2002 00:00:00 BCBS TRADITIONAL [id number] 2013 00:00:00 MCR MCR [id number] BCTI BCTI [id number] TWV TWV [id number] [place] [employer] [id number] 2002 00:00:00 [place] F [place]MEDIC[place] SUPPLEMENT[place] [id number] 2013 00:00:00 Problems Condition Name Condition Details Condition Category Status Onset Date Resolution Date Last Treatment Date Treating Clinician Comments Source Fever, unspecifie d fever cause Fever, unspecifie d fever cause Disease Active 2022-04 00:00: 00 [facility] Wound of right ankle, initial encounter Wound of right ankle, initial encounter Disease Active 2022-04 0 00:00: 00 [facility] Cellulitis , unspecifie d cellulitis site Cellulitis , unspecifie d cellulitis site Disease Active 11-29 00:00: 00 [facility] Unspecifie d dementia, unspecifie d severity, without behavioral disturbanc e, psychotic disturbanc e, mood disturbanc e, and anxiety Unspecifie d dementia, unspecifie d severity, without behavioral disturbanc e, psychotic disturbanc e, mood disturbanc e, and anxiety Disease Active 8 00:00: 00 [facility] 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 8 00:00: 00 [facility] Problem related to unspecifie d psychosoci al circumstan vasu Problem related to unspecifie d psychosoci al circumstan vasu Disease Active 11-26 00:00: 00 [facility] Post-traum atic stress disorder, chronic Post-traum atic stress disorder, chronic Disease Active 11-26 00:00: 00 [facility] Fever in adult Fever in adult Disease Active 10-28 00:00: 00 [facility] Pneumonia due to infectious organism Pneumonia due to infectious organism Disease Active 7 00:00: 00 [facility] At risk for aspiration At risk for aspiration Disease Active 20 00:00: 00 [facility] Cellulitis of right ankle Cellulitis of right ankle Disease Active 4-16 00:00: 00 [facility] Fecal impaction in rectum Fecal impaction in rectum Disease Active 220 00:00: 00 [facility] Pancolitis Pancolitis Disease Active 1- 00:00: 00 [facility] Basal cell carcinoma (BCC) of chin Basal cell carcinoma (BCC) of chin Disease Active 2017-04 00:00: 00 Overview: Formattin g of this note might be different from the original. Added automatic ally from request for surgery [id number] [facility] Glaucoma Glaucoma Disease Active 2014-04 00:00: 00 [facility] Hyperlipid emia Hyperlipid emia Disease Active 2014-04 00:00: 00 [facility] Carotid bruit Carotid bruit Disease Active 2014-04 00:00: 00 [facility] Allergies, Adverse Reactions, Alerts Allergy Name Allergy Type Status Severity Reaction(s) Onset Date Inactive Date Treating Clinician Comments Source Sulfamet hoxazole -Trimeth oprim Propensi ty to adverse reaction s Active Unknown - See comments 11-07 00:00: 00 Patients reports the patient is unable to walk when taking medicatio n [facility] SULFAMET HOXAZOLE -TRIMETH OPRIM DRUG Active Unknown-Cmnt 8- 00:00: 00 [facility] Social History Social Habit Start Date Stop Date Quantity Comments Source History SDOH Social Connections Get Together [facility] History SDOH Social Connections Caodaism [facility] History SDOH Social Connections Membership [facility] History SDOH Social Connections Meetings [facility] Alcoholic beverage intake 2023-12-30 00:00:00 2023-12-30 00:00:00 0 /d [facility] Alcohol intake 2023 00:00:00 2023 00:00:00 0 /d [facility] Exposure to SARS-CoV-2 (event) 2022-08-17 00:00:00 2022-08-27 14:30:00 Not sure [facility] History of Social function 2022-08-27 00:00:00 2022-08-27 00:00:00 [facility] History SDOH Alcohol Frequency 2022-07-21 00:00:00 2022-07-21 00:00:00 1 [facility] History SDOH Social Connections Phone 2022-07-21 00:00:00 2022-07-21 00:00:00 3 [facility] History SDOH Social Connections Living 2022-07-21 00:00:00 2022-07-21 00:00:00 3 [facility] History SDOH Financial 2022-07-21 00:00:00 2022-07-21 00:00:00 5 [facility] History SDOH Food Worry 2022-07-21 00:00:00 2022-07-21 00:00:00 1 [facility] History SDOH Food Scarcity 2022-07-21 00:00:00 2022-07-21 00:00:00 1 [facility] History SDOH Transport Med 2022-07-21 00:00:00 2022-07-21 00:00:00 2 [facility] History SDOH Transport Non-Med 2022-07-21 00:00:00 2022-07-21 00:00:00 2 [facility] History SDOH Physical Activity DPW 2022-07-21 00:00:00 2022-07-21 00:00:00 2 [facility] History SDOH Physical Activity MPS 2022-07-21 00:00:00 2022-07-21 00:00:00 1 [facility] History SDOH Housing Unable to Pay 2022-07-21 00:00:00 2022-07-21 00:00:00 2 [facility] History SDOH Housing Places Lived 2022-07-21 00:00:00 2022-07-21 00:00:00 1 [facility] History SDOH Housing Homeless Last Year 2022-07-21 00:00:00 2022-07-21 00:00:00 2 [facility] Tobacco use and exposure 2022-07-20 00:00:00 2022-07-20 00:00:00 Smokeless tobacco non-user [facility] History SDOH Alcohol Std Drinks 2022-05-28 00:00:00 2022-05-28 00:00:00 0 [facility] History SDOH Alcohol Binge 2022-05-28 00:00:00 2022-05-28 00:00:00 1 [facility] Sex assigned at 1945 00:00:00 1945 00:00:00 [facility] Smoking Status Start Date Stop Date Source Never smoked tobacco [facility] Medications Ordered Medication Name Filled Medication Name Start Date Stop Date Current Medication? Ordering Clinician Indication Dosage Frequency Signature (SIG) Comments Components Source iopamidol (ISOVUE 370-500 mL) injection 150 mL 12-30 05:45: 00 12-30 05:45 :00 No [id number] 150mL 150 mL, Intravenou s, ONCE, 1 dose, On Marilu 12/31/23 at 0045, Routine [facility] ciprofloxac in HCl (CIPRO) tablet 500 mg 2022-04 00:30: 00 03-01 23:48 :00 No 500mg 500 mg, Oral, ONCE, 1 dose, On 03/01/23 at 1830, ROCKY
Re ason for Anti-Infec tive: Documented Infection< br>Documen nichole Infection Site: Skin / Soft Tissue
Duration of Therapy: Other (see Comments) [facility] ciprofloxac in HCl 500 mg tablet 2022-04 00:00: 00 Yes [id number] 500mg Take 1 tablet by mouth in the morning and 1 tablet at noon and 1 tablet in the evening. [facility] collagenase 250 unit/gram ointment 2022-04 00:00: 00 Yes [id number] Apply to area(s) daily. [facility] Vitamin E (E-PHEROL) 400 unit Tab 2022-04 14:37: 49 Yes 2{tbl} Take 2 tablets by mouth daily. [facility] latanoprost (XALATAN) 0.005 % ophthalmic drops 2022-04 14:37: 49 Yes 1[drp] 1 Drop every evening. [facility] brimonidine (ALPHAGAN) 0.2 % ophthalmic solution 2022-04 14:37: 49 Yes 1[drp] Take 1 Drop in the morning and 1 Drop at noon and 1 Drop in the evening. [facility] melatonin 10 mg Tab 2022-04 14:37: 49 Yes 10mg Take 10 mg by mouth at bedtime. [facility] acetaminoph en 500 mg tablet 2022-04 14:37: 49 Yes 1000mg Take 2 tablets by mouth at bedtime. [facility] mv-mn/iron/ folic acid/herb 190 (VITAMIN D3 COMPLETE ORAL) 2022-04 14:37: 49 Yes 5000U/d Take 5,000 Units/day by mouth daily. [facility] timolol 0.25 % ophthalmic solution 2022-04 14:37: 49 Yes 1[drp] Place 1 Drop in both eyes in the morning and 1 Drop in the evening. [facility] trazodone HCl (TRAZODONE ORAL) 2022-04 14:37: 49 Yes 25mg Take 25 mg by mouth at bedtime. [facility] polyethylen e glycol 3350 (MIRALAX) 17 gram/dose powder 2022-04 14:37: 49 Yes 17g Take 17 g by mouth in the morning. [facility] zinc sulfate 50 mg zinc (220 mg) capsule 2022-04 00:00: 00 Yes [id number] 50mg Take 1 capsule by mouth in the morning and 1 capsule at noon and 1 capsule in the evening. [facility] ascorbic acid, vitamin C, 500 mg tablet 2022-04 00:00: 00 Yes [id number] 500mg Take 1 tablet by mouth in the morning and 1 tablet in the evening. [facility] ibuprofen 400 mg tablet 2022-04 00:00: 00 Yes [id number] 400mg Take 1 tablet by mouth every 6 (six) hours as needed (Alternate with Tylenol for fever). [facility] codeine-gua ifenesin 10-100 mg/5 mL oral solution 2022-04 00:00: 00 02-14 05:59 :00 No [id number] 5mL Take 5 mL by mouth every 6 (six) hours as needed for Cough for up to 7 days. Indication s: acute pain, cough [facility] NaCl 0.9% (NS) IV infusion 1,000 mL 2022-04 20:00: 00 Yes 1000mL at 50 mL/hr, IV Infusion, CONTINUOUS , Starting on Thu02/04/23 at 1500, Until Discontinu ed, Routine [facility] D5W 0.9% NaCl (NS) IV infusion 1,000 mL 2022-04 03:00: 00 Yes 1000mL at 50 mL/hr, 1,000 mL, IV Infusion, CONTINUOUS , Starting on Thu02/03/23 at 2200, Until Discontinu ed, Routine [facility] D5W 0.9% NaCl (NS) IV infusion 1,000 mL 2022-04 02:15: 00 02-04 02:56 :32 No 1000mL at 150 mL/hr, 1,000 mL, IV Infusion, CONTINUOUS , Starting on Thu02/03/23 at 2115, Until Thu02/03/23 at 2156, Routine [facility] risperiDONE (RISPERDAL) tablet 4 mg 2022-04 02:00: 00 Yes 4mg 4 mg, Oral, QHS, First dose (after last modificati on) on Thu02/03/23 at 2100, Until Discontinu ed, Routine [facility] acetaminoph en (TYLENOL) suppository 650 mg 2022-04 21:35: 13 Yes 650mg 650 mg, Rectal, Q6HPRN, Starting on Thu02/03/23 at 1635, Until Discontinu ed, Routine, Temp > 38 C [facility] collagenase (SANTYL) ointment 2022-04 16:45: 00 Yes Topical, DAILY, First dose on Thu02/03/23 at 1145, Until Discontinu ed, Routine [facility] sodium hypochlorit e 0.25% (DAKIN'S SOLUTION) solution 2022-04 16:45: 00 Yes Topical, DAILY, First dose on Thu02/03/23 at 1145, Until Discontinu ed, Routine [facility] polyethylen e glycol 3350 powder 17 g 2022-04 14:00: 00 Yes 17g 17 g, Oral, DAILY, First dose on Thu02/03/23 at 0900, Until [facility]continu ed [facility]SEC[facility] capsule 20 mg 2022-04 14:00: 00 Yes 20mg 20 mg, Oral, DAILY, First dose on Thu02/03/23 at 0900, Until Discontinu ed, Routine [facility] lactobacill us acidophilus tablet 0.5 mg 2022-04 14:00: 00 Yes .5mg 0.5 mg, Oral, DAILY, First dose on Thu02/03/23 at 0900, Until Discontinu ed, Routine [facility] docusate (COLACE) 50 mg/5 mL solution 100 mg 2022-04 14:00: 00 Yes 100mg 100 mg, Oral, DAILY, First dose on Thu02/03/23 at 0900, Until Discontinu ed, Routine [facility] levoFLOXaci n (LEVAQUIN) tablet 750 mg 2022-04 14:00: 00 02-13 14:59 :00 No 750mg 750 mg, Oral, DAILY, 10 doses, First dose on Thu02/03/23 at 0900, Last dose on Thu02/12/23 at 0900, ROCKY
Re ason for Anti-Infec tive: Documented Infection< br>Documen nichole Infection Site: Skin / Soft Tissue
Duration of Therapy: 10 days [facility] sodium hypochlorit e 0.5% (DAKINS) solution 16 oz 2022-04 14:00: 00 02-03 16:41 :37 No 16[oz_a v] 16 oz, Topical, DAILY, First dose on Thu02/03/23 at 0900, Until Discontinu ed, Routine [facility] zinc sulfate (ORAZINC) capsule 50 mg 2022-04 13:00: 00 Yes 50mg 50 mg, Oral, TID, First dose on Thu02/03/23 at 0800, Until Discontinu ed, Routine [facility] ascorbic acid (vitamin C) (VITAMIN C) tablet 500 mg 2022-04 13:00: 00 Yes 500mg 500 mg, Oral, BID, First dose on Thu02/03/23 at 0800, Until Discontinu ed, Routine [facility] codeine-gua ifenesin (ROBITUSSIN AC) 10-100 mg/5 mL oral solution 5 mL 2022-04 05:26: 58 Yes 5mL 5 mL, Oral, Q6HPRN, Starting on Thu02/03/23 at 0026, Until Discontinu ed, Routine, Cough [facility] melatonin (MELATIN) tablet 10.5 mg 2022-04 02:00: 00 Yes 10mg 10.5 mg (rounded from 10 mg), Oral, QHS, First dose on Thu02/02/23 at 2100, Until Discontinu ed [facility] donepeziL (ARICEPT) tablet 10 mg 2022-04 02:00: 00 Yes 10mg 10 mg, Oral, QHS, First dose on Thu02/02/23 at 2100, Until Discontinu ed [facility] doxazosin (CARDURA) tablet 1 mg 2022-04 02:00: 00 Yes 1mg 1 mg, Oral, QHS, First dose on Thu02/02/23 at 2100, Until Discontinu ed, Routine [facility] latanoprost (XALATAN) 0.005 % ophthalmic drops 1 Drop 2022-04 02:00: 00 Yes 1[drp] 1 Drop, Both Eyes, QHS, First dose on Thu02/02/23 at 2100, Until Discontinu ed, Routine [facility] traZODone (DESYREL) tablet 25 mg 2022-04 02:00: 00 02-03 05:28 :00 No 25mg 25 mg, Oral, QHS, First dose on Thu02/02/23 at 2100, Until Discontinu ed [facility] brimonidine (ALPHAGAN) 0.2 % ophthalmic solution 1 Drop 2022-04 01:00: 00 Yes 1[drp] 1 Drop, Both Eyes, TID, First dose on Thu02/02/23 at 2000, Until Discontinu ed, Routine [facility] timolol (TIMOPTIC) 0.5 % ophthalmic solution 1 Drop 2022-04 01:00: 00 Yes 1[drp] 1 Drop, Both Eyes, BID, First dose on Thu02/02/23 at 1999, Until Discontinu ed, Routine [facility] amoxicillin -clavulanat e (AUGMENTIN) 875-125 mg per tablet 1 tablet 2022-04 01:00: 00 02-13 01:59 :00 No 1{tbl} 1 tablet, Oral, BID, 20 doses, First dose on Thu02/02/23 at 1999, Last dose on Marilu 02/12/23 at 0800, Routine
Reason for Anti-Infec tive: Documented Infection< br>Documen nichole Infection Site: Skin / Soft Tissue
Duration of Therapy: 10 days [facility] ibuprofen (IBU) tablet 400 mg 2022-04 23:51: 58 Yes 400mg 400 mg, Oral, Q6HPRN, Starting on Thu02/02/23 at 1851, Until Discontinu ed, Routine, Alternate with Tylenol for fever [facility] acetaminoph en (TYLENOL) tablet 650 mg 2022-04 23:51: 40 02-03 21:35 :40 No 650mg 650 mg, Oral, Q6HPRN, Starting on Thu02/02/23 at 1851, Until Thu02/03/23 at 1635, Routine, Pain (scale 1-3), Temp > 38 C [facility] D5W 0.9% NaCl (NS) IV infusion 1,000 mL 2022-04 22:45: 00 02-04 00:14 :08 No 1000mL at 100 mL/hr, 1,000 mL, IV Infusion, CONTINUOUS , Starting on Thu02/02/23 at 1745, Until Thu02/03/23 at 1914, Routine [facility] acetaminoph en ADULT (OFIRMEV) injection 1,000 mg 2022-04 22:30: 00 02-02 23:02 :00 No 1000mg 1,000 mg, IV Infusion, at 400 mL/hr Administer over 15 Minutes, ONCE, 1 dose, On Thu02/02/23 at 1730, Routine
Indicatio n: Non-periop erative Patient
Approved by: Per Policy (NPO Status) [facility] enoxaparin (LOVENOX) injection 40 mg 2022-04 22:00: 00 Yes 40mg 40 mg, Subcutaneo us, DAILY, First dose on Thu02/02/23 at 1700, Until Discontinu ed, Routine [facility] risperiDONE (RISPERDAL) tablet 4 mg 2022-04 22:00: 00 02-03 17:34 :44 No 4mg 4 mg, Oral, QPM, First dose on Thu02/02/23 at 1700, Until Discontinu ed, Routine [facility] ondansetron (ZOFRAN (PF)) injection 4 mg 2022-04 21:37: 00 Yes 4mg 4 mg, Slow IV Push, Q6HPRN, Starting on Thu02/02/23 at 1637, Until Discontinu ed, Routine, Nausea and Vomiting (N/V) [facility] dextrometho rphan-guaif enesin (ROBITUSSIN DM) 10-100 mg/5 mL solution 10 mL 2022-04 21:31: 42 Yes 10mL 10 mL, Oral, Q6HPRN, Starting on Thu02/02/23 at 1631, Until Discontinu ed, Routine, Cough [facility] sodium hypochlorit e 0.5% (DAKINS) solution 16 oz 2022-04 14:00: 00 Yes 16[oz_a v] 16 oz, Topical, DAILY, First dose on Thu01/30/23 at 0900, Until Discontinu ed, Routine [facility] sodium hypochlorit e 0.5% solution 2022-04 00:00: 00 Yes [id number] 16[oz_a v] Apply 473 mL to area(s) in the morning. [facility] metoprolol succinate XL 25 mg 24 hr tablet 2022-04 00:00: 00 03-02 05:59 :00 No [id number] 12.5mg Take 0.5 tablets by mouth in the morning for 30 days. [facility] Vitamin E (E-PHEROL) 400 unit Tab 2022-04 14:48: 25 Yes 2{tbl} Take 2 tablets by mouth daily. [facility] latanoprost (XALATAN) 0.005 % ophthalmic drops 2022-04 14:48: 25 Yes 1[drp] 1 Drop every evening. [facility] brimonidine (ALPHAGAN) 0.2 % ophthalmic solution 2022-04 14:48: 25 Yes 1[drp] Take 1 Drop in the morning and 1 Drop at noon and 1 Drop in the evening. [facility] melatonin 10 mg Tab 2022-04 14:48: 25 Yes 10mg Take 10 mg by mouth at bedtime. [facility] acetaminoph en 500 mg tablet 2022-04 14:48: 25 Yes 1000mg Take 2 tablets by mouth at bedtime. [facility] mv-mn/iron/ folic acid/herb 190 (VITAMIN D3 COMPLETE ORAL) 2022-04 14:48: 25 Yes 5000U/d Take 5,000 Units/day by mouth daily. [facility] timolol 0.25 % ophthalmic solution 2022-04 14:48: 25 Yes 1[drp] Place 1 Drop in both eyes in the morning and 1 Drop in the evening. [facility] trazodone HCl (TRAZODONE ORAL) 2022-04 14:48: 25 Yes 25mg Take 25 mg by mouth at bedtime. [facility] polyethylen e glycol 3350 (MIRALAX) 17 gram/dose powder 2022-04 14:48: 25 Yes 17g Take 17 g by mouth in the morning. [facility] amoxicillin -clavulanat e (AUGMENTIN) 875-125 mg per tablet 1 tablet 2022-04 01:00: 00 02-12 01:59 :00 No 1{tbl} 1 tablet, Oral, Q12H, 28 doses, First dose on Thu01/28/23 at 2000, Last dose on Thu02/11/23 at 0800, Routine
Reason for Anti-Infec tive: Documented Infection< br>Documen nichole Infection Site: Skin / Soft Tissue
Duration of Therapy: 14 days [facility] levoFLOXaci n (LEVAQUIN) tablet 750 mg 2022-04 20:45: 00 02-11 14:59 :00 No 750mg 750 mg, Oral, DAILY, 14 doses, First dose on Thu01/28/23 at 1545, Last dose on Thu02/10/23 at 0900, Routine
Reason for Anti-Infec tive: Documented Infection< br>Documen nichole Infection Site: Skin / Soft Tissue
Duration of Therapy: 14 days [facility] isaiah dodson (ROBITUSSIN DM) 10-100 mg/5 mL solution 10 mL 2022-04 14:33: 23 Yes 10mL 10 mL, Oral, Q6HPRN, Starting on Thu01/28/23 at 0933, Until Discontinu ed, Routine, Cough [facility] levoFLOXaci n 750 mg tablet 2022-04 00:00: 00 02-12 05:59 :00 No [id number] 750mg Take 1 tablet by mouth in the morning for 14 days. [facility] amoxicillin -clavulanat e 875-125 mg per tablet 2022-04 00:00: 00 02-12 05:59 :00 No [id number] 1{tbl} Take 1 tablet by mouth in the morning and 1 tablet in the evening. Do all this for 14 days. [facility] collagenase (SANTYL) ointment 2022-04 14:00: 00 Yes Topical (Apply To Affected Areas), DAILY, First dose on Thu01/27/23 at 0900, Until Discontinu ed, Routine [facility] zolpidem (AMBIEN) tablet 5 mg 2022-04 02:35: 19 Yes 5mg 5 mg, Oral, QHSPRN, Starting on Thu01/26/23 at 2135, Until Discontinu ed, Routine, Insomnia [facility] metoprolol succinate XL (TOPROL XL) tablet 12.5 mg 2022-04 14:00: 00 Yes 12.5mg 12.5 mg, Oral, DAILY, First dose on Thu01/26/23 at 0900, Until Discontinu ed, Routine [facility] Vitamin E (dl, acetate) capsule 400 Units 2022-04 14:00: 00 Yes 400U 400 Units, Oral, DAILY, First dose on Thu01/26/23 at 0900, Until Discontinu ed [facility] polyethylen e glycol 3350 powder 17 g 2022-04 14:00: 00 Yes 17g 17 g, Oral, DAILY, First dose on Thu01/26/23 at 0900, Until Discontinu ed [facility] omeprazole (PRILOSEC) capsule 20 mg 2022-04 14:00: 00 Yes 20mg 20 mg, Oral, DAILY, First dose on Thu01/26/23 at 0900, Until Discontinu ed, Routine [facility] lactobacill us acidophilus tablet 0.5 mg 2022-04 14:00: 00 Yes .5mg 0.5 mg, Oral, DAILY, First dose on Thu01/26/23 at 0900, Until Discontinu ed, Routine [facility] docusate (COLACE) 50 mg/5 mL solution 50 mg 2022-04 14:00: 00 Yes 50mg 50 mg, Oral, DAILY, First dose on Thu01/26/23 at 0900, Until Discontinu ed, Routine [facility] zolpidem (AMBIEN) tablet 5 mg 2022-04 06:30: 00 01-26 05:58 :00 No 5mg 5 mg, Oral, ONCE, 1 dose, On Thu01/26/23 at 0130, Routine [facility] heparin (porcine) injection 5,000 Units 2022-04 03:00: 00 Yes 5000U 5,000 Units, Subcutaneo us, Q8H, First dose on Thu01/25/23 at 2200, Until Discontinu ed, Routine [facility] cefTRIAXone (ROCEPHIN) 1,000 mg in NaCl 0.9% [...] uration of therapy: 5 days [facility] traZODone (DESYREL) tablet 25 mg 2022-04 02:00: 00 Yes 25mg 25 mg, Oral, QHS, First dose on 01/25/23 at 2100, Until Discontinu ed [facility] timolol (TIMOPTIC) 0.5 % ophthalmic solution 1 Drop 2022-04 02:00: 00 Yes 1[drp] 1 Drop, Both Eyes, BID, First dose on 01/25/23 at 2100, Until Discontinu ed, Routine [facility] risperiDONE (RISPERDAL) tablet 4 mg 2022-04 02:00: 00 Yes 4mg 4 mg, Oral, QHS, First dose on 01/25/23 at 2100, Until Discontinu ed, Routine [facility] melatonin (MELATIN) tablet 10.5 mg 2022-04 02:00: 00 Yes 10mg 10.5 mg (rounded from 10 mg), Oral, QHS, First dose on 01/25/23 at 2100, Until Discontinu ed [facility] latanoprost (XALATAN) 0.005 % ophthalmic drops 1 Drop 2022-04 02:00: 00 Yes 1[drp] 1 Drop, Both Eyes, QHS, First dose on 01/25/23 at 2100, Until Discontinu ed, Routine [facility] donepeziL (ARICEPT) tablet 10 mg 2022-04 02:00: 00 Yes 10mg 10 mg, Oral, QHS, First dose on 01/25/23 at 2100, Until Discontinu ed [facility] doxazosin (CARDURA) tablet 1 mg 2022-04 02:00: 00 Yes 1mg 1 mg, Oral, QHS, First dose on 01/25/23 at 2100, Until Discontinu ed, Routine [facility] acetaminoph en (TYLENOL) tablet 1,000 mg 2022-04 02:00: 00 Yes 1000mg 1,000 mg, Oral, QHS, First dose on 01/25/23 at 2100, Until Discontinu ed, Routine [facility] brimonidine (ALPHAGAN) 0.2 % ophthalmic solution 1 Drop 2022-04 02:00: 00 Yes 1[drp] 1 Drop, Both Eyes, BID, First dose on Thu01/25/23 at 2100, Until Discontinu ed, Routine [facility] simvastatin (ZOCOR) tablet 40 mg 2022-04 02:00: 00 01-27 22:47 :39 No 40mg 40 mg, Oral, QHS, First dose on Thu01/25/23 at 2100, Until Discontinu ed, Routine [facility] guaiFENesin 100 mg/5 mL solution 200 mg 2022-04 00:20: 03 01-28 14:34 :14 No 200mg 200 mg, Oral, Q4HPRN, Starting on Thu01/25/23 at 1920, Until Thu01/28/23 at 0934, Routine, Cough [facility] vancomycin 1,250 mg in NaCl 0.9% (NS) [...]
Du ration of therapy: 72 hours [facility] ondansetron (ZOFRAN (PF)) injection 4 mg 2022-04 22:25: 28 Yes 4mg 4 mg, Slow IV Push, Q6HPRN, Starting on Thu01/25/23 at 1725, Until Discontinu ed, Routine, Nausea and Vomiting (N/V) [facility] acetaminoph en (TYLENOL) tablet 650 mg 2022-04 22:25: 21 Yes 650mg 650 mg, Oral, Q6HPRN, Starting on Thu01/25/23 at 1725, Until Discontinu ed, Routine, Pain (scale 1-3) [facility] ampicillin- sulbactam (UNASYN) 3 g in NaCl 0.9% (NS) 100 mL MINI-BAG 2022-04 20:15: 00 01-25 21:19 :00 No 3g 3 g, IV Piggyback, ONCE, 1 dose, On Thu01/25/23 at 1515, Administer over 30 Minutes, 100 mL
Reas on for Anti-Infec tive: Documented Infection< br>Documen nichole Infection Site: Skin / Soft Tissue
Duration of Therapy: 7 days [facility] Fish Oil-DHA-EPA 1,200-144-2 16 mg Cap 2022-04 18:31: 29 01-25 00:00 :00 No 1{capsu le} Take 1 capsule by mouth daily. [facility] collagenase (SANTYL) ointment 12-01 16:00: 00 Yes Topical (Apply To Affected Areas), DAILY, First dose on Thu12/01/22 at 1100, Until Discontinu ed, Routine [facility] Vitamin E (E-PHEROL) 400 unit Tab 12-01 15:03: 18 Yes 2{tbl} Take 2 tablets by mouth daily. [facility] latanoprost (XALATAN) 0.005 % ophthalmic drops 12-01 15:03: 18 Yes 1[drp] 1 Drop every evening. [facility] brimonidine (ALPHAGAN) 0.2 % ophthalmic solution 12-01 15:03: 18 Yes 1[drp] Take 1 Drop in the morning and 1 Drop at noon and 1 Drop in the evening. [facility] Fish Oil-DHA-EPA 1,200-144-2 16 mg Cap 12-01 15:03: 18 Yes 1{capsu le} Take 1 capsule by mouth daily. [facility] melatonin 10 mg Tab 12-01 15:03: 18 Yes 10mg Take 10 mg by mouth at bedtime. [facility] acetaminoph en 500 mg tablet 12-01 15:03: 18 Yes 1000mg Take 2 tablets by mouth at bedtime. [facility] mv-mn/iron/ folic acid/herb 190 (VITAMIN D3 COMPLETE ORAL) 12-01 15:03: 18 Yes 5000U/d Take 5,000 Units/day by mouth daily. [facility] timolol 0.25 % ophthalmic solution 12-01 15:03: 18 Yes 1[drp] Place 1 Drop in both eyes in the morning and 1 Drop in the evening. [facility] trazodone HCl (TRAZODONE ORAL) 12-01 15:03: 18 Yes 25mg Take 25 mg by mouth at bedtime. [facility] risperiDONE (RISPERDAL) tablet 4 mg 12-01 02:00: 00 Yes 4mg 4 mg, Oral, QHS, First dose (after last modificati on) on 11/30/22 at 2100, Until Discontinu ed, Routine [facility] clindamycin 75 mg/5 mL suspension 12-01 00:00: 00 12-10 04:59 :00 No [id number] 150mg Take 10 mL by mouth 4 (four) times daily for 8 days. [facility] tamsulosin (FLOMAX) capsule 0.4 mg 11-30 14:00: 00 Yes .4mg 0.4 mg, Oral, DAILY, First dose on 11/30/22 at 0900, Until Discontinu ed, Routine [facility] omeprazole (PRILOSEC) capsule 20 mg 11-30 14:00: 00 Yes 20mg 20 mg, Oral, DAILY, First dose on 11/30/22 at 0900, Until Discontinu ed, [facility] 50 mg/5 mL solution 100 mg 11-30 14:00: 00 Yes 100mg 100 mg, Oral, DAILY, First dose on 11/30/22 at 0900, Until Discontinu ed, Routine [facility] glycerin/mi neral oil (AGLO ENEMA) (COMPOUNDED ) Enem 225 mL 11-30 14:00: 00 11-30 14:49 :00 No 225mL 225 mL, Rectal, ONCE, 1 dose, On 11/30/22 at 0900, Routine [facility] timolol (TIMOPTIC) 0.5 % ophthalmic solution 1 Drop 11-30 13:00: 00 Yes 1[drp] 1 Drop, Both Eyes, BID, First dose on 11/30/22 at 0800, Until Discontinu ed, Routine [facility] brimonidine (ALPHAGAN) 0.2 % ophthalmic solution 1 Drop 11-30 13:00: 00 Yes 1[drp] 1 Drop, Both Eyes, TID, First dose on Thu11/30/22 at 0800, Until Discontinu ed, Routine [facility] clindamycin in 5 % [...] (for ADC, CLC, LCC ONLY) [facility] NaCl 0.9% (NS) IV infusion 1,000 mL 11-30 03:15: 00 11-30 03:02 :43 No 1000mL at 75 mL/hr, IV Infusion, ONCE, 1 dose, On 11/29/22 at 2215, Routine [facility] heparin (porcine) injection 5,000 Units 11-30 03:00: 00 Yes 5000U 5,000 Units, Subcutaneo us, Q8H, First dose on 11/29/22 at 2200, Until Discontinu ed, Routine [facility] risperiDONE (RISPERDAL) tablet 4 mg 11-30 02:30: 00 11-30 22:24 :26 No 4mg 4 mg, Oral, QPM, First dose (after last modificati on) on 11/29/22 at 2130, Until Discontinu ed, Routine [facility] simvastatin (ZOCOR) tablet 40 mg 11-30 02:00: 00 Yes 40mg 40 mg, Oral, QHS, First dose on 11/29/22 at 2100, Until Discontinu ed, Routine [facility] melatonin (MELATIN) tablet 10.5 mg 11-30 02:00: 00 Yes 10mg 10.5 mg (rounded from 10 mg), Oral, QHS, First dose on [facility] 11/29/22 at 2100, Until Discontinu ed [facility] traZODone (DESYREL) tablet 25 mg 11-30 01:47: 26 Yes 25mg 25 mg, Oral, QHSPRN, Starting on 11/29/22 at 2046, Until Discontinu ed, Insomnia [facility] dextrometho rphan-guaif enesin (ROBITUSSIN DM) 10-100 mg/5 mL solution 10 mL 11-30 01:41: 51 Yes 10mL 10 mL, Oral, Q6HPRN, Starting on 11/29/22 at 2040, Until Discontinu ed, Routine, Cough [facility] acetaminoph en (TYLENOL) tablet 650 mg 11-30 00:19: 33 Yes 650mg 650 mg, Oral, Q6HPRN, Starting on 11/29/22 at 1918, Until Discontinu ed, Routine, Pain (scale 1-3) [facility] NaCl 0.9% (NS) bolus infusion 1,000 mL 11-29 23:45: 00 11-29 23:11 :00 No 1000mL at 999 mL/hr, 1,000 mL, IV Piggyback, ONCE, 1 dose, On Thu11/29/22 at 1845, STAT [facility] LORazepam (ATIVAN) injection 0.5 mg 11-29 23:00: 00 11-29 23:09 :00 No .5mg 0.5 mg, Slow IV Push, ONCE, 1 dose, On Thu11/29/22 at 1800, STAT [facility] lactulose (CEPHULAC) solution 30 mL 11-26 23:00: 00 11-27 01:06 :00 No 30mL 30 mL, Oral, ONCE, 1 dose, On Thu11/26/22 at 1800, ROCKY [facility] iopamidol (ISOVUE 370-500 mL) injection 80 mL 11-26 22:45: 00 11-26 22:45 :00 No [id number] 80mL 80 mL, Intravenou s, ONCE, 1 dose, On Thu11/26/22 at 1745, Routine [facility] NaCl 0.9% (NS) bolus infusion 500 mL 11-26 19:15: 00 11-26 20:30 :00 No 500mL at 999 mL/hr, 500 mL, IV Infusion, ONCE, 1 dose, On Thu11/26/22 at 1415, STAT [facility] doxazosin 2 mg tablet 11-11 00:00: 00 Yes 1mg Take 0.5 tablets by mouth at bedtime. [facility] Vitamin E (E-PHEROL) 400 unit Tab 10-30 14:25: 29 Yes 2{tbl} Take 2 tablets by mouth daily. [facility] latanoprost (XALATAN) 0.005 % ophthalmic drops 10-30 14:25: 29 Yes 1[drp] 1 Drop every evening. [facility] brimonidine (ALPHAGAN) 0.2 % ophthalmic solution 10-30 14:25: 29 Yes 1[drp] Take 1 Drop in the morning and 1 Drop at noon and 1 Drop in the evening. [facility] Fish Oil-DHA-EPA 1,200-144-2 16 mg Cap 10-30 14:25: 29 Yes 1{capsu le} Take 1 capsule by mouth daily. [facility] melatonin 10 mg Tab 10-30 14:25: 29 Yes 10mg Take 10 mg by mouth at bedtime. [facility] acetaminoph en 500 mg tablet 10-30 14:25: 29 Yes 1000mg Take 2 tablets by mouth at bedtime. [facility] mv-mn/iron/ folic acid/herb 190 (VITAMIN D3 COMPLETE ORAL) 10-30 14:25: 29 Yes 5000U/d Take 5,000 Units/day by mouth daily. [facility] timolol 0.25 % ophthalmic solution 10-30 14:25: 29 Yes 1[drp] Place 1 Drop in both eyes in the morning and 1 Drop in the evening. [facility] trazodone HCl (TRAZODONE ORAL) 10-30 14:25: Yes 25mg Take 25 mg by mouth at bedtime. [facility] collagenase (SANTYL) ointment 10-30 14:00: 00 Yes Topical (Apply To Affected Areas), DAILY, First dose (after last modificati on) on Thu10/30/22 at 0900, Until Discontinu ed, Routine [facility] dextrometho ayn-daniloaif enesin 10-100 mg/5 mL solution 10-30 00:00: 00 Yes [id number] 10mL Take 10 mL by mouth every 6 (six) hours as needed for Cough. [facility] amoxicillin -pot clavulanate (AUGMENTIN) 250-62.5 mg/5 mL suspension 10-30 00:00: 00 11-07 04:59 :00 No [id number] 500mg Take 10 mL by mouth in the morning and 10 mL at noon and 10 mL in the evening. Do all this for 7 days. [facility] predniSONE 5 mg/5 mL solution 10-30 00:00: 00 11-05 04:59 :00 No [id number] 20mg Take 20 mL by mouth in the morning for 5 days. [facility] codeine-gua ifenesin (ROBITUSSIN AC) 10-100 mg/5 mL oral solution 5 mL 10-29 17:49: 39 Yes [id number] 5mL 5 mL, Oral, Q6HPRN, Starting on Thu10/29/22 at 1249, Until Discontinu ed, Routine, Cough [facility] latanoprost (XALATAN) 0.005 % ophthalmic drops 1 Drop 10-29 02:45: 00 Yes 1[drp] 1 Drop, Both Eyes, QPM, First dose on Thu10/28/22 at 2145, Until Discontinu ed, Routine [facility] brimonidine (ALPHAGAN) 0.2 % ophthalmic solution 1 Drop 10-29 02:45: 00 Yes 1[drp] 1 Drop, Both Eyes, BID, First dose on Thu10/28/22 at 2145, Until Discontinu ed, Routine [facility] timolol (TIMOPTIC) 0.25 % ophthalmic solution 1 Drop 10-29 02:45: 00 Yes 1[drp] 1 Drop, Both Eyes, BID, First dose on Thu10/28/22 at 2145, Until Discontinu ed, Routine [facility] traZODone (DESYREL) tablet 25 mg 10-29 02:00: 00 Yes 25mg 25 mg, Oral, QHS, First dose on Thu10/28/22 at 2100, Until Discontinu ed [facility] simvastatin (ZOCOR) tablet 40 mg 10-29 02:00: 00 Yes 40mg 40 mg, Oral, QHS, First dose on Thu10/28/22 at 2100, Until Discontinu ed, [facility] ([facility]) tablet 4 mg 10-28 22:00: 00 Yes 4mg 4 mg, Oral, QPM, First dose on Thu10/28/22 at 1700, Until Discontinu ed, Routine [facility] enoxaparin (LOVENOX) injection 40 mg 10-28 14:00: 00 Yes 40mg 40 mg, Subcutaneo us, DAILY, First dose on Thu10/28/22 at 0900, Until Discontinu ed, Routine [facility] omeprazole (PRILOSEC) capsule 20 mg 10-28 14:00: 00 Yes 20mg 20 mg, Oral, DAILY, First dose on Thu10/28/22 at 0900, Until Discontinu ed, Routine [facility] lactobacill us acidophilus tablet 0.5 mg 10-28 14:00: 00 Yes .5mg 0.5 mg, Oral, DAILY, First dose on Thu10/28/22 at 0900, Until Discontinu ed, Routine [facility] docusate (COLACE) 50 mg/5 mL solution 100 mg 10-28 14:00: 00 Yes 100mg 100 mg, Oral, DAILY, First dose on Thu10/28/22 at 0900, Until Discontinu ed, Routine [facility] ipratropium -albuteroL (DUONEB) 0.5 mg-3 mg(2.5 mg base)/3 mL nebulizer solution 3 mL 10-28 13:00: 00 Yes 3mL 3 mL, Inhalation , QID, First dose on Thu10/28/22 at 0800, Until Discontinu ed, Routine [facility] galantamine (REMINYL) tablet 8 mg 10-28 13:00: 00 Yes 8mg 8 mg, Oral, BID, First dose on Thu10/28/22 at 0800, Until Discontinu ed, Routine [facility] glucagon (GLUCAGEN DIAGNOSTIC KIT) injection 1 mg 10-28 12:15: 24 Yes 1mg 1 mg, Intramuscu lar, PRN, Starting on Thu10/28/22 at 0715, Until Discontinu ed, ROCKY, Blood Glucose < or = 70 mg/dL and patient is NPO, unable to swallow or has mental changes. [facility] dextrose 50 % in water (D50W) injection 25 mL 10-28 12:15: 24 Yes 25mL 25 mL, Slow IV Push, PRN, Starting on Thu10/28/22 at 0715, Until Discontinu ed, ROCKY, Blood Glucose < or = 70 mg/dL and patient is NPO, unable to swallow or has mental status changes. [facility] ondansetron (ZOFRAN (PF)) injection 4 mg 10-28 11:43: 22 Yes 4mg 4 mg, Slow IV Push, Q6HPRN, Starting on Thu10/28/22 at 0643, Until Discontinu ed, Routine, Nausea and Vomiting (N/V) [facility] acetaminoph en (TYLENOL) tablet 650 mg 10-28 11:43: 10 Yes 650mg 650 mg, Oral, Q6HPRN, Starting on Thu10/28/22 at 0643, Until Discontinu ed, Routine, Pain (scale 1-3) [facility] acetaminoph en (TYLENOL) tablet 650 mg 10-28 06:45: 00 10-28 07:25 :00 No 650mg 650 mg, Oral, ONCE, 1 dose, On Thu10/28/22 at 0145, ROCKY [facility] NaCl 0.9% (NS) injection 5 mL 10-28 06:37: 55 Yes 5mL 5 mL, Slow IV Push, PRN - SEE INSTRUCTIO NS, Starting on Thu10/28/22 at 0137, Until Discontinu ed, 10 mL [facility] Vitamin E (E-PHEROL) 400 unit Tab 08-27 14:48: 28 Yes 2{tbl} Take 2 tablets by mouth daily. [facility] latanoprost (XALATAN) 0.005 % ophthalmic drops 08-27 14:48: 28 Yes 1[drp] 1 Drop every evening. [facility] brimonidine (ALPHAGAN) 0.2 % ophthalmic solution 08-27 14:48: 28 Yes 1[drp] Take 1 Drop in the morning and 1 Drop at noon and 1 Drop in the evening. [facility] Fish Oil-DHA-EPA 1,200-144-2 16 mg Cap 08-27 14:48: 28 Yes 1{capsu le} Take 1 capsule by mouth daily. [facility] melatonin 10 mg Tab 08-27 14:48: 28 Yes 10mg Take 10 mg by mouth at bedtime. [facility] acetaminoph en 500 mg tablet 08-27 14:48: 28 Yes 1000mg Take 2 tablets by mouth at bedtime. [facility] mv-mn/iron/ folic acid/herb 190 (VITAMIN D3 COMPLETE ORAL) 08-27 14:48: 28 Yes 5000U/d Take 5,000 Units/day by mouth daily. [facility] timolol 0.25 % ophthalmic solution 08-27 14:48: 28 Yes 1[drp] Place 1 Drop in both eyes in the morning and 1 Drop in the evening. [facility] tamsulosin (FLOMAX) 0.4 mg 24 hr capsule 08-27 00:00: 00 01-25 00:00 :00 No [id number] .4mg Take 1 capsule by mouth in the morning. [facility] docusate 50 mg/5 mL solution 07-27 00:00: 00 Yes [id number] 100mg Take 10 mL by mouth in the morning. [facility] collagenase 250 unit/gram ointment 07-27 00:00: 00 08-07 04:59 :00 No [id number] Apply to affected area(s) daily for 10 days. [facility] risperiDONE (RISPERDAL) tablet 2 mg 07-26 22:00: 00 Yes 2mg 2 mg, Oral, QPM, First dose (after last modificati on) on 07/26/22 at 1700, Until Discontinu ed, Routine [facility] Vitamin E (E-PHEROL) 400 unit Tab 07-26 16:43: 26 Yes 2{tbl} Take 2 tablets by mouth daily. [facility] latanoprost (XALATAN) 0.005 % ophthalmic drops 07-26 16:43: 26 Yes 1[drp] 1 Drop every evening. [facility] brimonidine (ALPHAGAN) 0.2 % ophthalmic solution 07-26 16:43: 26 Yes 1[drp] Take 1 Drop in the morning and 1 Drop at noon and 1 Drop in the evening. [facility] Fish Oil-DHA-EPA 1,200-144-2 16 mg Cap 07-26 16:43: 26 Yes 1{capsu le} Take 1 capsule by mouth daily. [facility] melatonin 10 mg Tab 07-26 16:43: 26 Yes 10mg Take 10 mg by mouth at bedtime. [facility] acetaminoph en 500 mg tablet 07-26 16:43: 26 Yes 1000mg Take 2 tablets by mouth at bedtime. [facility] mv-mn/iron/ folic acid/herb 190 (VITAMIN D3 COMPLETE ORAL) 07-26 16:43: 26 Yes 5000U/d Take 5,000 Units/day by mouth daily. [facility] timolol 0.25 % ophthalmic solution 07-26 16:43: 26 Yes 1[drp] Place 1 Drop in both eyes in the morning and 1 Drop in the evening. [facility] amoxicillin -clavulanat e 400-57 mg/5 mL suspension 07-26 00:00: 00 08-22 04:59 :00 No [id number] 800mg Take 10 mL by mouth in the morning and 10 mL in the evening. Do all this for 52 doses. [facility] SODIUM HYPOCHLORIT E 0.025% Soln solution 07-26 00:00: 00 07-28 04:59 :00 No [id number] 1000mL Apply 1,000 mL to area(s) in the morning for 1 dose. [facility] amoxicillin -clavulanat e (AUGMENTIN) 875-125 mg per tablet 1 tablet 07-25 21:00: 00 08-22 08:59 :00 No 1{tbl} 1 tablet, Oral, Q12H ABX, 55 doses, First dose (after last modificati on) on Thu07/25/22 at 1600, Last dose on Thu08/21/22 at 1600, Routine
Reason for Anti-Infec tive: Documented Infection< br>Documen nichole Infection Site: Skin / Soft Tissue
Duration of Therapy: Other (see Comments) [facility] LORazepam (ATIVAN) injection 1 mg 07-25 18:15: 00 07-25 18:04 :00 No 1mg 1 mg, Slow IV Push, ONCE, 1 dose, On Thu07/25/22 at 1315, Routine [facility] iopamidol (ISOVUE 370-500 mL) injection 80 mL 07-25 18:09: 00 07-25 18:11 :00 No [id number] 80mL 80 mL, Intravenou s, ONCE, 1 dose, On Thu07/25/22 at 1330, Routine [facility] amoxicillin -clavulanat e (AUGMENTIN) 875-125 mg per tablet 1 tablet 07-25 04:00: 00 07-25 12:22 :33 No 1{tbl} 1 tablet, Oral, Q12H, 56 doses, First dose on Thu07/24/22 at 2300, Last dose on Thu08/21/22 at 0800, Routine
Reason for Anti-Infec tive: Documented Infection< br>Documen nichole Infection Site: Skin / Soft Tissue
Duration of Therapy: Other (see Comments) [facility] levalbutero l (XOPENEX) nebulizer solution 0.63 mg 07-25 02:51: 00 Yes .63mg 0.63 mg, Inhalation , TIDPRN, Starting on Thu07/24/22 at 2151, Until Discontinu ed, Routine, Wheezing, Shortness of Breath [facility] ipratropium (ATROVENT) 0.02 % nebulizer solution 0.5 mg 07-25 02:22: 54 Yes .5mg 0.5 mg, Inhalation , Q4HPRN, Starting on Thu07/24/22 at 2122, Until Discontinu ed, Routine, Wheezing, Shortness of Breath, Bronchospa sm, Chest tightness [facility] codeine-gua ifenesin (ROBITUSSIN AC) 10-100 mg/5 mL oral solution 5 mL 07-25 02:22: 34 Yes 5mL 5 mL, Oral, Q6HPRN, Starting on Thu07/24/22 at 2122, Until Discontinu ed, Routine, Cough [facility] sodium hypochlorit e 0.25% (DAKIN'S SOLUTION) solution 07-24 22:00: 00 07-24 21:28 :00 No Topical, ONCE, 1 dose, On Thu07/24/22 at 1700, Routine [facility] fluconazole (DIFLUCAN) Piggyback 200 mg 07-24 16:15: 00 07-26 16:20 :00 No 200mg at 100 mL/hr, IV Piggyback, Q24H ABX, 3 doses, First dose on Thu07/24/22 at 1115, Last dose on Thu07/26/22 at 1115, ROCKY
Do Not Refrigerat e.
[facility] piperacilli n-tazobacta m (ZOSYN) 3.375 g [...] Soft tissue
Duration of therapy: 72 hours [facility] vancomycin (VANCOCIN) 1,000 mg in NaCl [...] Soft Tissue
Duration of Therapy: 7 days [facility] Vitamin E (dl, acetate) capsule 800 Units 07-23 14:00: 00 Yes 800U 800 Units, Oral, DAILY, First dose on Thu07/23/22 at 0900, Until Discontinu ed, Routine [facility] lactobacill us acidophilus tablet 0.5 mg 07-23 14:00: 00 Yes .5mg 0.5 mg, Oral, DAILY, First dose on Thu07/23/22 at 0900, Until Discontinu ed, Routine [facility] docusate (COLACE) 50 mg/5 mL solution 100 mg 07-22 15:15: 00 Yes 100mg 100 mg, Oral, DAILY, First dose on Thu07/22/22 at 1015, Until Discontinu ed, Routine [facility] QUEtiapine (SEROQUEL) tablet 25 mg 07-22 04:30: 00 07-22 03:55 :00 No 25mg 25 mg, Oral, ONCE, 1 dose, On Thu07/21/22 at 2330, Routine [facility] simvastatin (ZOCOR) tablet 40 mg 07-22 02:00: 00 Yes 40mg 40 mg, Oral, QHS, First dose on Thu07/21/22 at 2100, Until Discontinu ed, Routine [facility] latanoprost (XALATAN) 0.005 % ophthalmic drops 1 Drop 07-21 22:00: 00 Yes 1[drp] 1 Drop, Both Eyes, QPM, First dose on Thu07/21/22 at 1700, Until Discontinu ed, Routine [facility] piperacilli n-tazobacta m (ZOSYN) [...]
Duration of therapy: 72 hours [facility] collagenase (SANTYL) ointment 07-21 15:45: 00 Yes Topical (Apply To Affected Areas), DAILY, First dose on Thu07/21/22 at 1045, Until Discontinu ed, Routine [facility] galantamine (REMINYL) tablet 8 mg 07-21 15:15: 00 Yes 8mg 8 mg, Oral, BID, First dose on Thu07/21/22 at 1015, Until Discontinu ed, Routine [facility] tamsulosin (FLOMAX) capsule 0.4 mg 07-21 14:00: 00 Yes .4mg 0.4 mg, Oral, DAILY, First dose on Thu07/21/22 at 0900, Until Discontinu ed, Routine [facility] omeprazole (PRILOSEC) capsule 20 mg 07-21 14:00: 00 Yes 20mg 20 mg, Oral, DAILY, First dose on Thu07/21/22 at 0900, Until Discontinu ed, Routine [facility] enoxaparin (LOVENOX) injection 40 mg 07-21 14:00: 00 Yes 40mg 40 mg, Subcutaneo us, DAILY, First dose on Thu07/21/22 at 0900, Until Discontinu ed, Routine [facility] docusate (COLACE) capsule 100 mg 07-21 14:00: 00 07-22 15:13 :38 No 100mg 100 mg, Oral, DAILY, First dose on Thu07/21/22 at 0900, Until Discontinu ed, Routine [facility] timolol (TIMOPTIC) 0.5 % ophthalmic solution 1 Drop 07-21 13:30: 00 Yes 1[drp] 1 Drop, Both Eyes, BID, First dose on Thu07/21/22 at 0830, Until Discontinu ed, Routine [facility] brimonidine (ALPHAGAN) 0.2 % ophthalmic solution 1 Drop 07-21 13:00: 00 Yes 1[drp] 1 Drop, Both Eyes, TID, First dose on Thu07/21/22 at 0800, Until Discontinu ed, Routine [facility] melatonin (MELATIN) tablet 9 mg 07-21 05:15: 00 Yes 9mg 9 mg, Oral, QHS, First dose (after last modificati on) on Thu07/21/22 at 0015, Until Discontinu ed [facility] acetaminoph en (TYLENOL) tablet 1,000 mg 07-21 05:00: 00 Yes 1000mg 1,000 mg, Oral, QHS, First dose (after last modificati on) on Thu07/21/22 at 0000, Until Discontinu ed, Routine [facility] risperiDONE (RISPERDAL) tablet 4 mg 07-21 05:00: 00 07-26 02:28 :57 No 4mg 4 mg, Oral, QPM, First dose (after last modificati on) on Thu07/21/22 at 0000, Until Discontinu ed, Routine [facility] piperacilli n-tazobacta m (ZOSYN) [...] Soft tissue
Duration of therapy: 72 hours [facility] NaCl 0.9% (NS) bolus infusion 1,000 mL 07-21 03:15: 00 07-21 02:30 :00 No 1000mL at 999 mL/hr, 1,000 mL, IV Piggyback, ONCE, 1 dose, On Thu07/20/22 at 2215, STAT [facility] ondansetron (ZOFRAN (PF)) injection 4 mg 07-21 02:47: 49 Yes 4mg 4 mg, Slow IV Push, Q6HPRN, Starting on Thu07/20/22 at 2147, Until Discontinu ed, Routine, Nausea and Vomiting (N/V) [facility] HYDROcodone -acetaminop hen (NORCO) 10-325 mg tablet 1 tablet 07-21 02:47: 43 Yes 1{tbl} 1 tablet, Oral, Q6HPRN, Starting on Thu07/20/22 at 2147, Until Discontinu ed, Routine, Pain (scale 7-10) [facility] acetaminoph en (TYLENOL) tablet 650 mg 07-21 02:47: 34 Yes 650mg 650 mg, Oral, Q6HPRN, Starting on Thu07/20/22 at 2147, Until Discontinu ed, Routine, Pain (scale 1-3) [facility] NaCl 0.9% (NS) bolus infusion 1,000 mL 07-18 21:00: 00 07-18 22:16 :00 No 1000mL at 999 mL/hr, 1,000 mL, IV Piggyback, ONCE, 1 dose, On Thu07/18/22 at 1600, STAT [facility] piperacilli n-tazobacta m (ZOSYN) 3.375 g in NaCl 0.9% (NS) 100 mL MINI-BAG 07-18 20:00: 00 07-18 21:09 :00 No 3.375g 3.375 g, IV Piggyback, ONCE, 1 dose, On Thu07/18/22 at 1500, Administer over 30 Minutes, 100 mL
Reas on for Anti-Infec tive: Documented Infection< br>Documen nichole Infection Site: Skin / Soft Tissue
Duration of Therapy: 7 days [facility] cefpodoxime 200 mg tablet 07-18 00:00: 00 08-02 04:59 :00 No [id number] 200mg Take 1 tablet by mouth in the morning and 1 tablet in the evening. Do all this for 14 days. [facility] levoFLOXaci n 750 mg tablet 07-18 00:00: 00 07-29 04:59 :00 No [id number] 750mg Take 1 tablet by mouth every 24 (twenty-fo ur) hours for 10 days. [facility] iopamidol (ISOVUE 370-500 mL) injection 78 mL 06-10 19:45: 00 06-10 19:45 :00 No [id number] 78mL 78 mL, Intravenou s, ONCE, 1 dose, On Thu06/10/22 at 1345, Routine [facility] ondansetron (ZOFRAN (PF)) injection 4 mg 06-10 17:45: 00 06-10 17:13 :00 No 4mg 4 mg, Slow IV Push, ONCE, 1 dose, On Thu06/10/22 at 1145, ROCKY [facility] polyethylen e glycol 3350 powder 17 g 05-28 15:00: 00 Yes 17g 17 g, Oral, DAILY, First dose on Thu05/28/22 at 0900, Until Discontinu ed, Routine [facility] tamsulosin (FLOMAX) capsule 0.4 mg 05-28 15:00: 00 Yes .4mg 0.4 mg, Oral, DAILY, First dose on Thu05/28/22 at 0900, Until Discontinu ed, Routine [facility] omeprazole (PRILOSEC) capsule 20 mg 05-28 15:00: 00 Yes 20mg 20 mg, Oral, DAILY, First dose on Thu05/28/22 at 0900, Until Discontinu ed, Routine [facility] lactobacill us acidophilus tablet 0.5 mg 05-28 15:00: 00 Yes .5mg 0.5 mg, Oral, DAILY, First dose on Thu05/28/22 at 0900, Until Discontinu ed, Routine [facility] Vitamin E (E-PHEROL) 400 unit Tab 05-28 14:50: 45 Yes 2{tbl} Take 2 tablets by mouth daily. [facility] latanoprost (XALATAN) 0.005 % ophthalmic drops 05-28 14:50: 45 Yes 1[drp] 1 Drop every evening. [facility] brimonidine (ALPHAGAN) 0.2 % ophthalmic solution 05-28 14:50: 45 Yes 1[drp] 1 Drop 3 (three) times daily. [facility] Fish Oil-DHA-EPA 1,200-144-2 16 mg Cap 05-28 14:50: 45 Yes 1{capsu le} Take 1 capsule by mouth daily. [facility] melatonin 10 mg Tab 05-28 14:50: 45 Yes 10mg Take 10 mg by mouth at bedtime. [facility] acetaminoph en 500 mg tablet 05-28 14:50: 45 Yes 1000mg Take 1,000 mg by mouth at bedtime. [facility] mv-mn/iron/ folic acid/herb 190 (VITAMIN D3 COMPLETE ORAL) 05-28 14:50: 45 Yes 5000U/d Take 5,000 Units/day by mouth daily. [facility] timolol 0.25 % ophthalmic solution 05-28 14:50: 45 Yes 1[drp] Place 1 Drop in both eyes 2 (two) times daily. [facility] acetaminoph en (TYLENOL) tablet 1,000 mg 05-28 03:00: 00 Yes 1000mg 1,000 mg, Oral, QHS, First dose on Thu05/27/22 at 2100, Until Discontinu ed, Routine [facility] simvastatin (ZOCOR) tablet 40 mg 05-28 03:00: 00 Yes 40mg 40 mg, Oral, QHS, First dose on Thu05/27/22 at 2100, Until Discontinu ed, Routine [facility] melatonin (MELATIN) tablet 9 mg 05-28 03:00: 00 Yes 9mg 9 mg, Oral, QHS, First dose on Thu05/27/22 at 2100, Until Discontinu ed [facility] docusate (COLACE) capsule 100 mg 05-28 02:00: 00 Yes 100mg 100 mg, Oral, BID, First dose on Thu05/27/22 at 2000, Until Discontinu ed, Routine [facility] galantamine (REMINYL) tablet 8 mg 05-28 02:00: 00 Yes 8mg 8 mg, Oral, BID, First dose on Thu05/27/22 at 2000, Until Discontinu ed, Routine [facility] timolol (TIMOPTIC) 0.5 % ophthalmic solution 1 Drop 05-28 02:00: 00 Yes 1[drp] 1 Drop, Both Eyes, BID, First dose on Thu05/27/22 at 2000, Until Discontinu ed [facility] amoxicillin -clavulanat e (AUGMENTIN) 875-125 mg per tablet 05-28 00:00: 00 06-02 05:59 :00 No [id number] 1{tbl} Take 1 tablet by mouth in the morning and 1 tablet in the evening. Do all this for 4 days. [facility] risperiDONE (RISPERDAL) tablet 4 mg 05-27 23:00: 00 Yes 4mg 4 mg, Oral, QPM, First dose on Thu05/27/22 at 1700, Until Discontinu ed, Routine [facility] latanoprost (XALATAN) 0.005 % ophthalmic drops 1 Drop 05-27 23:00: 00 Yes 1[drp] 1 Drop, Both Eyes, QPM, First dose on Thu05/27/22 at 1700, Until Discontinu ed, Routine [facility] piperacilli n-tazobacta m (ZOSYN) 3.375 g [...] Abdominal< br>Duratio n of Therapy: 7 days [facility] lactulose (CEPHULAC) solution 30 mL 05-27 15:45: 00 05-27 16:31 :00 No 30mL 30 mL, Oral, ONCE, 1 dose, On Thu05/27/22 at 0945, Routine [facility] enoxaparin (LOVENOX) injection 40 mg 05-27 15:00: 00 Yes 40mg 40 mg, Subcutaneo us, DAILY, First dose on Thu05/27/22 at 0900, Until Discontinu ed, Routine [facility] aspirin 81 mg EC tablet 05-27 11:23: 35 05-27 00:00 :00 No 81mg Take 81 mg by mouth daily. [facility] piperacilli n-tazobacta m (ZOSYN) 3.375 g in NaCl 0.9% (NS) 100 mL MINI-BAG 05-27 09:30: 00 05-27 10:36 :00 No 3.375g 3.375 g, IV Piggyback, ONCE, 1 dose, On Thu05/27/22 at 0330, Administer over 30 Minutes, 100 mL
Reas on for Anti-Infec tive: Documented Infection< br>Documen nichole Infection Site: Abdominal< br>Duratio n of Therapy: 7 days [facility] NaCl 0.9% (NS) IV infusion 1,000 mL 05-27 04:15: 00 05-27 12:39 :00 No 1000mL at 125 mL/hr, IV Infusion, ONCE, 1 dose, On Thu05/26/22 at 2215, Routine [facility] ondansetron (ZOFRAN (PF)) injection 4 mg 05-27 03:29: 20 Yes 4mg 4 mg, Slow IV Push, Q6HPRN, Starting on Thu05/26/22 at 2128, Until Discontinu ed, Routine, Nausea and Vomiting (N/V) [facility] traMADoL (ULTRAM) tablet 50 mg 05-27 03:29: 11 05-29 03:28 :11 No 50mg 50 mg, Oral, Q8HPRN, Starting on Thu05/26/22 at 2128, Until Thu05/28/22 at 2127, Routine, Pain (scale 4-6) [facility] acetaminoph en (TYLENOL) tablet 650 mg 05-27 03:29: 08 Yes 650mg 650 mg, Oral, Q6HPRN, Starting on Thu05/26/22 at 2128, Until Discontinu ed, Routine, Pain (scale 1-3) [facility] cefTRIAXone (ROCEPHIN) 1,000 mg in NaCl 0.9% (NS) 100 mL MINI-BAG 05-27 02:45: 00 05-27 03:18 :00 No 1000mg 1,000 mg, IV Piggyback, ONCE, 1 dose, On Thu05/26/22 at 2045, Administer over 30 Minutes, 100 mL
Reas on for Anti-Infec tive: Documented Infection< br>Documen nichole Infection Site: Abdominal< br>Duratio n of Therapy: 7 days [facility] ondansetron (ZOFRAN (PF)) injection 4 mg 05-27 00:15: 00 05-27 00:10 :00 No 4mg 4 mg, Slow IV Push, ONCE, 1 dose, On Thu05/26/22 at 1815, ROCKY [facility] ciprofloxac in HCl (CIPRO) tablet 500 mg 05-06 03:00: 00 05-11 02:59 :00 No 500mg 500 mg, Oral, Q12H ABX, 10 doses, First dose on Thu05/05/22 at 2100, Last dose on Thu05/10/22 at 0900, ROCKY
Re ason for Anti-Infec tive: Documented Infection< br>Documen nichole Infection Site: Abdominal< br>Duratio n of Therapy: 7 days [facility] metroNIDAZO LE (FLAGYL) tablet 500 mg 05-06 02:00: 00 05-11 01:59 :00 No 500mg 500 mg, Oral, Q12H, 10 doses, First dose on Thu05/05/22 at 2000, Last dose on Thu05/10/22 at 0800, Routine
Reason for Anti-Infec tive: Documented Infection< br>Documen nichole Infection Site: Abdominal< br>Duratio n of Therapy: 7 days [facility] lactobacill us acidophilus 05-06 00:00: 00 Yes .5mg Take 1 tablet by mouth in the morning. [facility] hydroCHLORO thiazide 12.5 mg tablet 05-06 00:00: 00 05-26 00:00 :00 No 12.5mg Take 1 tablet by mouth in the morning. [facility] Vitamin E (E-PHEROL) 400 unit Tab 05-05 18:25: 31 Yes 2{tbl} Take 2 tablets by mouth daily. [facility] aspirin 81 mg EC tablet 05-05 18:25: 31 Yes 81mg Take 81 mg by mouth daily. [facility] latanoprost (XALATAN) 0.005 % ophthalmic drops 05-05 18:25: 31 Yes 1[drp] 1 Drop every evening. [facility] brimonidine (ALPHAGAN) 0.2 % ophthalmic solution 05-05 18:25: 31 Yes 1[drp] 1 Drop 3 (three) times daily. [facility] Fish Oil-DHA-EPA 1,200-144-2 16 mg Cap 05-05 18:25: 31 Yes 1{capsu le} Take 1 capsule by mouth daily. [facility] melatonin 10 mg Tab 05-05 18:25: 31 Yes 10mg Take 10 mg by mouth at bedtime. [facility] acetaminoph en 500 mg tablet 05-05 18:25: 31 Yes 1000mg Take 1,000 mg by mouth at bedtime. [facility] diphenhydrA MINE (BENADRYL) tablet 25 mg 05-05 10:43: 00 Yes 25mg 25 mg, Oral, Q6HPRN, Starting on 05/05/22 at 0443, Until Discontinu ed, Routine, Itching [facility] ciprofloxac in HCl 500 mg tablet 05-05 00:00: 00 05-26 00:00 :00 No 500mg Take 1 tablet by mouth every 12 (twelve) hours. [facility] metroNIDAZO LE 500 mg tablet 05-05 00:00: 00 05-26 00:00 :00 No 500mg Take 1 tablet by mouth every 12 (twelve) hours. [facility] diphenhydrA MINE (BENADRYL) tablet 25 mg 05-04 16:15: 00 05-04 16:25 :00 No 25mg 25 mg, Oral, ONCE, 1 dose, On 05/04/22 at 1015, Routine [facility] simvastatin (ZOCOR) tablet 40 mg 05-04 03:00: 00 Yes 40mg 40 mg, Oral, QHS, First dose on 05/03/22 at 2100, Until Discontinu ed, Routine [facility] risperiDONE (RISPERDAL) tablet 2 mg 05-03 23:00: 00 Yes 2mg 2 mg, Oral, QPM, First dose (after last modificati on) on 05/03/22 at 1700, Until Discontinu ed, Routine [facility] latanoprost (XALATAN) 0.005 % ophthalmic drops 1 Drop 05-03 23:00: 00 Yes 1[drp] 1 Drop, Both Eyes, QPM, First dose on 05/03/22 at 1700, Until Discontinu ed, Routine [facility] lactobacill us acidophilus tablet 0.5 mg 05-03 18:00: 00 Yes .5mg 0.5 mg, Oral, DAILY, First dose on 05/03/22 at 1200, Until Discontinu ed, Routine [facility] enoxaparin (LOVENOX) injection 40 mg 05-03 15:00: 00 Yes 40mg 40 mg, Subcutaneo us, DAILY, First dose on 05/03/22 at 0900, Until Discontinu ed, Routine [facility] tamsulosin (FLOMAX) capsule 0.4 mg 05-03 15:00: 00 Yes .4mg 0.4 mg, Oral, DAILY, First dose on 05/03/22 at 0900, Until Discontinu ed, Routine [facility] omeprazole (PRILOSEC) capsule 20 mg 05-03 15:00: 00 Yes 20mg 20 mg, Oral, DAILY, First dose on 05/03/22 at 0900, Until Discontinu ed, Routine [facility] hydroCHLORO thiazide (ESIDRIX) tablet 12.5 mg 05-03 15:00: 00 Yes 12.5mg 12.5 mg, Oral, DAILY, First dose on 05/03/22 at 0900, Until Discontinu ed [facility] aspirin EC tablet 81 mg 05-03 15:00: 00 Yes 81mg 81 mg, Oral, DAILY, First dose on 05/03/22 at 0900, Until Discontinu ed, Routine [facility] brimonidine (ALPHAGAN) 0.2 % ophthalmic solution 1 Drop 05-03 14:00: 00 Yes 1[drp] 1 Drop, Both Eyes, TID, First dose on 05/03/22 at 0800, Until Discontinu ed, Routine [facility] metroNIDAZO LE in NaCl [...] Abdominal< br>Duratio n of Therapy: 7 days [facility] ciprofloxac in in 5 % dextrose (CIPRO) piggyback 400 mg 05-03 06:15: 00 05-05 20:29 :12 No 400mg 400 mg, IV Piggyback, at 200 mL/hr Administer over 60 Minutes, Q12H ABX, First dose on Thu05/03/22 at 0015, Until Discontinu ed, Routine
Reason for Anti-Infec tive: Documented Infection< br>Docu mented Infection Site: Abdominal< br>Duratio n of Therapy: 7 days [facility] haloperidol lactate (HALDOL) injection 2.5 mg 05-03 05:53: 13 Yes 2.5mg 2.5 mg, Slow IV Push, PRN, 2 doses, Starting on Thu05/02/22 at 2353, Until Discontinu ed, Routine, Psychosis [facility] galantamine (REMINYL) tablet 8 mg 05-03 05:15: 00 Yes 8mg 8 mg, Oral, BID, First dose on Thu05/02/22 at 2315, Until Discontinu ed, Routine
Reason for non-formul ramsey use: PATIENT CURRENTLY TAKING NONFORMULA RY PRODUCT [facility] melatonin (MELATIN) tablet 9 mg 05-03 05:15: 00 Yes 9mg 9 mg, Oral, QHS, First dose (after last modificati on) on Thu05/02/22 at 2315, Until Discontinu ed [facility] risperiDONE (RISPERDAL) tablet 4 mg 05-03 05:15: 00 05-03 05:26 :23 No 4mg 4 mg, Oral, QPM, First dose (after last modificati on) on Thu05/02/22 at 2315, Until Discontinu ed, Routine [facility] ondansetron (ZOFRAN (PF)) injection 4 mg 05-03 04:53: 40 Yes 4mg 4 mg, Slow IV Push, Q6HPRN, Starting on Thu05/02/22 at 2253, Until Discontinu ed, Routine, Nausea and Vomiting (N/V) [facility] traMADoL (ULTRAM) tablet 50 mg 05-03 04:53: 31 05-05 04:52 :31 No 50mg 50 mg, Oral, Q8HPRN, Starting on Thu05/02/22 at 2253, Until Thu05/04/22 at 2252, Routine, Pain (scale 4-6) [facility] acetaminoph en (TYLENOL) tablet 650 mg 05-03 04:53: 29 Yes 650mg 650 mg, Oral, Q6HPRN, Starting on Thu05/02/22 at 2253, Until Discontinu ed, Routine, Pain (scale 1-3) [facility] iopamidol (ISOVUE 370-500 mL) injection 100 mL 05-03 02:45: 00 05-03 01:49 :00 No [id number] 100mL 100 mL, Intravenou s, ONCE, 1 dose, On Thu05/02/22 at 2045, Routine [facility] NaCl 0.9% (NS) bolus infusion 1,000 mL 05-03 01:45: 00 05-03 00:44 :00 No 1000mL at 999 mL/hr, 1,000 mL, IV Piggyback, ONCE, 1 dose, On Thu05/02/22 at 1945, STAT [facility] hydroCHLORO thiazide 12.5 mg capsule 05-02 22:53: 50 05-02 00:00 :00 No 12.5mg Take 12.5 mg by mouth daily. [facility] amoxicillin 500 mg tablet 1-13 00:00: 00 04-29 05:59 :00 No [id number] 500mg Take 1 tablet by mouth in the morning and 1 tablet in the evening. Do all this for 10 days. [facility] OMEPRAZOLE 20 mg capsule 10-24 00:00: 00 Yes [id number] Take 1 capsule by mouth once daily [facility] SIMVASTATIN 40 mg tablet 09-24 00:00: 00 01-29 00:00 :00 No [id number] TAKE 1 TABLET BY MOUTH ONCE DAILY AT BEDTIME [facility] galantamine 8 mg tablet 07-31 00:00: 00 Yes [id number] 8mg Take 1 tablet by mouth 2 (two) times daily. [facility] tamsulosin (FLOMAX) 0.4 mg 24 hr capsule 07-29 00:00: 00 08-27 00:00 :00 No [id number] .4mg Take 1 capsule by mouth daily. [facility] hydroCHLORO thiazide 12.5 mg capsule 2020-04 015 15:34: 14 Yes 12.5mg Take 12.5 mg by mouth daily. [facility] Vitamin E (E-PHEROL) 400 unit Tab 08-28 14:21: 44 Yes 1{tbl} Take 1 tablet by mouth daily. [facility] aspirin 81 mg EC tablet 08-28 14:21: 44 Yes 81mg Take 81 mg by mouth daily. [facility] latanoprost (XALATAN) 0.005 % ophthalmic drops 08-28 14:21: 44 Yes 1[drp] 1 Drop every evening. [facility] galantamine 12 mg tablet 08-28 00:00: 00 05-02 00:00 :00 No [id number] 12mg Take 1 tablet by mouth 2 (two) times daily. [facility] risperiDONE (RISPERDAL) 2 mg tablet 2019-04 2-08 00:00: 00 Yes [id number] 4mg Take 2 tablets by mouth every evening. [facility] brimonidine (ALPHAGAN) 0.2 % ophthalmic solution 2017-04 13:40: 32 Yes 1[drp] 1 Drop 3 (three) times daily. [facility] Fish Oil-DHA-EPA 1,200-144-2 16 mg Cap 2017-04 13:40: 32 Yes 1{capsu le} Take 1 capsule by mouth daily. [facility] Immunizations Ordered Immunization Name Filled Immunization Name Date Status Comments Source Influenza High Dose 2021-12-27 00:00:00 Completed [facility] Influenza High Dose 2021-12-27 00:00:00 Completed [facility] Influenza High Dose 2021-12-27 00:00:00 Completed [facility] Influenza High Dose 2021-12-27 00:00:00 Completed [facility] Influenza High Dose 2021-12-27 00:00:00 Completed [facility] Influenza High Dose 2021-12-27 00:00:00 Completed [facility] Influenza High Dose 2021-12-27 00:00:00 Completed [facility] Influenza High Dose 2021-12-27 00:00:00 Completed [facility] Influenza High Dose 2021-12-27 00:00:00 Completed [facility] Influenza High Dose 2021-12-27 00:00:00 Completed [facility] Influenza High Dose 2021-12-27 00:00:00 Completed [facility] Influenza High Dose 2021-12-27 00:00:00 Completed [facility] Influenza High Dose 2021-12-27 00:00:00 Completed [facility] Influenza High Dose 2021-12-27 00:00:00 Completed [facility] Influenza High Dose 2021-12-27 00:00:00 Completed [facility] Influenza High Dose 2021-12-27 00:00:00 Completed [facility] Influenza High Dose 2021-12-27 00:00:00 Completed [facility] Influenza High Dose 2021-12-27 00:00:00 Completed [facility] Influenza High Dose 2021-12-27 00:00:00 Completed [facility] Influenza High Dose 2021-12-27 00:00:00 Completed [facility] Influenza High Dose 2021-12-27 00:00:00 Completed [facility] Influenza Virus Vaccine 2021-12-18 00:00:00 Completed [facility] Influenza Virus Vaccine 2021-12-18 00:00:00 Completed [facility] Influenza Virus Vaccine 2021-12-18 00:00:00 Completed [facility] Influenza Virus Vaccine 2021-12-18 00:00:00 Completed [facility] Influenza Virus Vaccine 2021-12-18 00:00:00 Completed [facility] Influenza Virus Vaccine 2021-12-18 00:00:00 Completed [facility] Influenza Virus Vaccine 2021-12-18 00:00:00 Completed [facility] Influenza Virus Vaccine 2021-12-18 00:00:00 Completed [facility] Influenza Virus Vaccine 2021-12-18 00:00:00 Completed [facility] SARS-COV-2 COVID-19 VACCINE - (MODERNA) 2021-09-20 00:00:00 Completed [facility] SARS-COV-2 COVID-19 VACCINE - (MODERNA) 2021-09-20 00:00:00 Completed [facility] SARS-COV-2 COVID-19 VACCINE - (MODERNA) 2021-09-20 00:00:00 Completed [facility] SARS-COV-2 COVID-19 VACCINE - (MODERNA) 2021-09-20 00:00:00 Completed [facility] SARS-COV-2 COVID-19 VACCINE - (MODERNA) 2021-09-20 00:00:00 Completed [facility] SARS-COV-2 COVID-19 VACCINE - (MODERNA) 2021-09-20 00:00:00 Completed [facility] SARS-COV-2 COVID-19 VACCINE - (MODERNA) 2021-09-20 00:00:00 Completed [facility] SARS-COV-2 COVID-19 VACCINE - (MODERNA) 2021-09-20 00:00:00 Completed [facility] SARS-COV-2 COVID-19 VACCINE - (MODERNA) 2021-09-20 00:00:00 Completed [facility] SARS-COV-2 COVID-19 VACCINE - (MODERNA) 2021-04-02 00:00:00 Completed [facility] SARS-COV-2 COVID-19 VACCINE - (MODERNA) 2021-04-02 00:00:00 Completed [facility] SARS-COV-2 COVID-19 VACCINE - (MODERNA) 2021-04-02 00:00:00 Completed [facility] SARS-COV-2 COVID-19 VACCINE - (MODERNA) 2021-04-02 00:00:00 Completed [facility] SARS-COV-2 COVID-19 VACCINE - (MODERNA) 2021-04-02 00:00:00 Completed [facility] SARS-COV-2 COVID-19 VACCINE - (MODERNA) 2021-04-02 00:00:00 Completed [facility] SARS-COV-2 COVID-19 VACCINE - (MODERNA) 2021-04-02 00:00:00 Completed [facility] SARS-COV-2 COVID-19 VACCINE - (MODERNA) 2021-04-02 00:00:00 Completed [facility] SARS-COV-2 COVID-19 VACCINE - (MODERNA) 2021-04-02 00:00:00 Completed [facility] Influenza High Dose Quad 2020-12-27 00:00:00 Completed [facility] Influenza High Dose Quad 2020-12-27 00:00:00 Completed [facility] Influenza High Dose Quad 2020-12-27 00:00:00 Completed [facility] Influenza High Dose Quad 2020-12-27 00:00:00 Completed [facility] Influenza High Dose Quad 2020-12-27 00:00:00 Completed [facility] Influenza High Dose Quad 2020-12-27 00:00:00 Completed [facility] Influenza High Dose Quad 2020-12-27 00:00:00 Completed [facility] Influenza High Dose Quad 2020-12-27 00:00:00 Completed [facility] Influenza High Dose Quad 2020-12-27 00:00:00 Completed [facility] SARS-COV-2 COVID-19 MODERNA 12+ YRS VACCINE 2020-06-07 00:00:00 Completed [facility] SARS-COV-2 COVID-19 MODERNA 12+ YRS VACCINE 2020-06-07 00:00:00 Completed [facility] SARS-COV-2 COVID-19 MODERNA 12+ YRS VACCINE 2020-06-07 00:00:00 Completed [facility] SARS-COV-2 COVID-19 MODERNA 12+ YRS VACCINE 2020-06-07 00:00:00 Completed [facility] SARS-COV-2 COVID-19 MODERNA 12+ YRS VACCINE 2020-06-07 00:00:00 Completed [facility] SARS-COV-2 COVID-19 MODERNA 12+ YRS VACCINE 2020-06-07 00:00:00 Completed [facility] SARS-COV-2 COVID-19 MODERNA 12+ YRS VACCINE 2020-06-07 00:00:00 Completed [facility] SARS-COV-2 COVID-19 MODERNA 12+ YRS VACCINE 2020-06-07 00:00:00 Completed [facility] SARS-COV-2 COVID-19 MODERNA 12+ YRS VACCINE 2020-06-07 00:00:00 Completed [facility] SARS-COV-2 COVID-19 MODERNA 12+ YRS VACCINE 2020-06-07 00:00:00 Completed [facility] SARS-COV-2 COVID-19 MODERNA 12+ YRS VACCINE 2020-06-07 00:00:00 Completed [facility] SARS-COV-2 COVID-19 MODERNA 12+ YRS VACCINE 2020-06-07 00:00:00 Completed [facility] SARS-COV-2 COVID-19 MODERNA 12+ YRS VACCINE 2020-06-07 00:00:00 Completed [facility] SARS-COV-2 COVID-19 MODERNA 12+ YRS VACCINE 2020-06-07 00:00:00 Completed [facility] SARS-COV-2 COVID-19 MODERNA 12+ YRS VACCINE 2020-06-07 00:00:00 Completed [facility] SARS-COV-2 COVID-19 MODERNA 12+ YRS VACCINE 2020-06-07 00:00:00 Completed [facility] SARS-COV-2 COVID-19 MODERNA 12+ YRS VACCINE 2020-06-07 00:00:00 Completed [facility] SARS-COV-2 COVID-19 MODERNA 12+ YRS VACCINE 2020-06-07 00:00:00 Completed [facility] SARS-COV-2 COVID-19 MODERNA 12+ YRS VACCINE 2020-06-07 00:00:00 Completed [facility] SARS-COV-2 COVID-19 MODERNA 12+ YRS VACCINE 2020-06-07 00:00:00 [facility] [facility] SARS-COV-2 COVID-19 MODERNA 12+ YRS VACCINE 2020-06-07 00:00:00 Completed [facility] SARS-COV-2 COVID-19 MODERNA 12+ YRS VACCINE 2020-06-07 00:00:00 Completed [facility] SARS-COV-2 COVID-19 MODERNA 12+ YRS VACCINE 2020-06-07 00:00:00 Completed [facility] SARS-COV-2 COVID-19 MODERNA 12+ YRS VACCINE 2020-06-07 00:00:00 Completed [facility] SARS-COV-2 COVID-19 MODERNA 12+ YRS VACCINE 2020-05-10 00:00:00 Completed [facility] SARS-COV-2 COVID-19 MODERNA 12+ YRS VACCINE 2020-05-10 00:00:00 Completed [facility] SARS-COV-2 COVID-19 MODERNA 12+ YRS VACCINE 2020-05-10 00:00:00 Completed [facility] SARS-COV-2 COVID-19 MODERNA 12+ YRS VACCINE 2020-05-10 00:00:00 Completed [facility] SARS-COV-2 COVID-19 MODERNA 12+ YRS VACCINE 2020-05-10 00:00:00 Completed [facility] SARS-COV-2 COVID-19 MODERNA 12+ YRS VACCINE 2020-05-10 00:00:00 Completed [facility] SARS-COV-2 COVID-19 MODERNA 12+ YRS VACCINE 2020-05-10 00:00:00 Completed [facility] SARS-COV-2 COVID-19 MODERNA 12+ YRS VACCINE 2020-05-10 00:00:00 Completed [facility] SARS-COV-2 COVID-19 MODERNA 12+ YRS VACCINE 2020-05-10 00:00:00 Completed [facility] SARS-COV-2 COVID-19 MODERNA 12+ YRS VACCINE 2020-05-10 00:00:00 Completed [facility] SARS-COV-2 COVID-19 MODERNA 12+ YRS VACCINE 2020-05-10 00:00:00 Completed [facility] SARS-COV-2 COVID-19 MODERNA 12+ YRS VACCINE 2020-05-10 00:00:00 Completed [facility] SARS-COV-2 COVID-19 MODERNA 12+ YRS VACCINE 2020-05-10 00:00:00 Completed [facility] SARS-COV-2 COVID-19 MODERNA 12+ YRS VACCINE 2020-05-10 00:00:00 Completed [facility] SARS-COV-2 COVID-19 MODERNA 12+ YRS VACCINE 2020-05-10 00:00:00 Completed [facility] SARS-COV-2 COVID-19 MODERNA 12+ YRS VACCINE 2020-05-10 00:00:00 Completed [facility] SARS-COV-2 COVID-19 MODERNA 12+ YRS VACCINE 2020-05-10 00:00:00 Completed [facility] SARS-COV-2 COVID-19 MODERNA 12+ YRS VACCINE 2020-05-10 00:00:00 Completed [facility] SARS-COV-2 COVID-19 MODERNA 12+ YRS VACCINE 2020-05-10 00:00:00 Completed [facility] SARS-COV-2 COVID-19 MODERNA 12+ YRS VACCINE 2020-05-10 00:00:00 Completed [facility] SARS-COV-2 COVID-19 MODERNA 12+ YRS VACCINE 2020-05-10 00:00:00 Completed [facility] SARS-COV-2 COVID-19 MODERNA 12+ YRS VACCINE 2020-05-10 00:00:00 Completed [facility] SARS-COV-2 COVID-19 MODERNA 12+ YRS VACCINE 2020-05-10 00:00:00 Completed [facility] SARS-COV-2 COVID-19 MODERNA 12+ YRS VACCINE 2020-05-10 00:00:00 Completed [facility] Influenza High Dose Quad 2019-12-09 00:00:00 Completed [facility] Influenza High Dose Quad 2019-12-09 00:00:00 Completed [facility] Influenza High Dose Quad 2019-12-09 00:00:00 Completed [facility] Influenza High Dose Quad 2019-12-09 00:00:00 Completed [facility] Influenza High Dose Quad 2019-12-09 00:00:00 Completed [facility] Influenza High Dose Quad 2019-12-09 00:00:00 Completed [facility] Influenza High Dose Quad 2019-12-09 00:00:00 Completed [facility] Influenza High Dose Quad 2019-12-09 00:00:00 Completed [facility] Influenza High Dose Quad 2019-12-09 00:00:00 Completed [facility] Influenza High Dose Quad 2019-12-09 00:00:00 Completed [facility] Influenza High Dose Quad 2019-12-09 00:00:00 Completed [facility] Influenza High Dose Quad 2019-12-09 00:00:00 Completed [facility] Influenza High Dose Quad 2019-12-09 00:00:00 Completed [facility] Influenza High Dose Quad 2019-12-09 00:00:00 Completed [facility] Influenza High Dose Quad 2019-12-09 00:00:00 Completed [facility] Influenza High Dose Quad 2019-12-09 00:00:00 Completed [facility] Influenza High Dose Quad 2019-12-09 00:00:00 Completed [facility] Influenza High Dose Quad 2019-12-09 00:00:00 Completed [facility] Influenza High Dose Quad 2019-12-09 00:00:00 Completed [facility] Influenza High Dose Quad 2019-12-09 00:00:00 Completed [facility] Influenza High Dose Quad 2019-12-09 00:00:00 Completed [facility] Influenza High Dose Quad 2019-12-09 00:00:00 Completed [facility] Influenza High Dose Quad 2019-12-09 00:00:00 Completed [facility] Influenza High Dose Quad 2019-12-09 00:00:00 Completed [facility] Influenza High Dose 2018-12-24 00:00:00 Completed [facility] Influenza High Dose 2018-12-24 00:00:00 Completed [facility] Influenza High Dose 2018-12-24 00:00:00 Completed [facility] Influenza High Dose 2018-12-24 00:00:00 Completed [facility] Influenza High Dose 2018-12-24 00:00:00 Completed [facility] Influenza High Dose 2018-12-24 00:00:00 Completed [facility] Influenza High Dose 2018-12-24 00:00:00 Completed [facility] Influenza High Dose 2018-12-24 00:00:00 Completed [facility] Influenza High Dose 2018-12-24 00:00:00 Completed [facility] Influenza High Dose 2018-12-24 00:00:00 Completed [facility] Influenza High Dose 2018-12-24 00:00:00 Completed [facility] Influenza High Dose 2018-12-24 00:00:00 Completed [facility] Influenza High Dose 2018-12-24 00:00:00 Completed [facility] Influenza High Dose 2018-12-24 00:00:00 Completed [facility] Influenza High Dose 2018-12-24 00:00:00 Completed [facility] Influenza High Dose 2018-12-24 00:00:00 Completed [facility] Influenza High Dose 2018-12-24 00:00:00 Completed [facility] Influenza High Dose 2018-12-24 00:00:00 Completed [facility] Influenza High Dose 2018-12-24 00:00:00 Completed [facility] Influenza High Dose 2018-12-24 00:00:00 Completed [facility] Influenza High Dose 2018-12-24 00:00:00 Completed [facility] Influenza High Dose 2018-12-24 00:00:00 Completed [facility] Influenza High Dose 2018-12-24 00:00:00 Completed [facility] Influenza High Dose 2018-12-24 00:00:00 Completed [facility] Influenza High Dose 2017-12-24 00:00:00 Completed [facility] Influenza High Dose 2017-12-24 00:00:00 Completed [facility] Influenza High Dose 2017-12-24 00:00:00 Completed [facility] Influenza High Dose 2017-12-24 00:00:00 Completed [facility] Influenza High Dose 2017-12-24 00:00:00 Completed [facility] Influenza High Dose 2017-12-24 00:00:00 Completed [facility] Influenza High Dose 2017-12-24 00:00:00 Completed [facility] Influenza High Dose 2017-12-24 00:00:00 Completed [facility] Influenza High Dose 2017-12-24 00:00:00 Completed [facility] Influenza High Dose 2017-12-24 00:00:00 Completed [facility] Influenza High Dose 2017-12-24 00:00:00 Completed [facility] Influenza High Dose 2017-12-24 00:00:00 Completed [facility] Influenza High Dose 2017-12-24 00:00:00 Completed [facility] Influenza High Dose 2017-12-24 00:00:00 Completed [facility] Influenza High Dose 2017-12-24 00:00:00 Completed [facility] Influenza High Dose 2017-12-24 00:00:00 Completed [facility] Influenza High Dose 2017-12-24 00:00:00 Completed [facility] Influenza High Dose 2017-12-24 00:00:00 Completed [facility] Influenza High Dose 2017-12-24 00:00:00 Completed [facility] Influenza High Dose 2017-12-24 00:00:00 Completed [facility] Influenza High Dose 2017-12-24 00:00:00 Completed [facility] Influenza High Dose 2017-12-24 00:00:00 Completed [facility] Influenza High Dose 2017-12-24 00:00:00 Completed [facility] Influenza High Dose 2017-12-24 00:00:00 Completed [facility] TDAP 2017-04-05 00:00:00 Completed [facility] TDAP 2017-04-05 00:00:00 Completed [facility] TDAP 2017-04-05 00:00:00 Completed [facility] TDAP 2017-04-05 00:00:00 Completed [facility] TDAP 2017-04-05 00:00:00 Completed [facility] TDAP 2017-04-05 00:00:00 Completed [facility] TDAP 2017-04-05 00:00:00 Completed [facility] TDAP 2017-04-05 00:00:00 Completed [facility] TDAP 2017-04-05 00:00:00 Completed [facility] TDAP 2017-04-05 00:00:00 Completed [facility] TDAP 2017-04-05 00:00:00 Completed [facility] TDAP 2017-04-05 00:00:00 Completed [facility] TDAP 2017-04-05 00:00:00 Completed [facility] TDAP 2017-04-05 00:00:00 Completed [facility] TDAP 2017-04-05 00:00:00 Completed [facility] TDAP 2017-04-05 00:00:00 Completed [facility] TDAP 2017-04-05 00:00:00 Completed [facility] TDAP 2017-04-05 00:00:00 Completed [facility] TDAP 2017-04-05 00:00:00 Completed [facility] TDAP 2017-04-05 00:00:00 Completed [facility] TDAP 2017-04-05 00:00:00 Completed [facility] TDAP 2017-04-05 00:00:00 Completed [facility] TDAP 2017-04-05 00:00:00 Completed [facility] TDAP 2017-04-05 00:00:00 Completed [facility] TDAP Unknown Completed [facility] Influenza High Dose Unknown Completed [facility] SARS-COV-2 COVID-19 MODERNA 12+ YRS VACCINE Unknown Completed [facility] Influenza High Dose Quad Unknown Completed [facility] Influenza Virus Vaccine Unknown Completed [facility] TDAP Unknown Completed [facility] Influenza High Dose Unknown Completed [facility] SARS-COV-2 COVID-19 MODERNA 12+ YRS VACCINE Unknown Completed [facility] Influenza High Dose Quad Unknown Completed [facility] Influenza Virus Vaccine Unknown Completed [facility] TDAP Unknown Completed [facility] Influenza High Dose Unknown Completed [facility] SARS-COV-2 COVID-19 MODERNA 12+ YRS VACCINE Unknown Completed [facility] Influenza High Dose Quad Unknown Completed [facility] Influenza Virus Vaccine Unknown Completed [facility] TDAP Unknown Completed [facility] Influenza High Dose Unknown Completed [facility] SARS-COV-2 COVID-19 MODERNA 12+ YRS VACCINE Unknown Completed [facility] Influenza High Dose Quad Unknown Completed [facility] Influenza Virus Vaccine Unknown Completed [facility] Remdesivir Unknown [facility] TDAP Unknown Completed [facility] Influenza High Dose Unknown Completed [facility] SARS-COV-2 COVID-19 MODERNA 12+ YRS VACCINE Unknown Completed [facility] Influenza High Dose Quad Unknown Completed [facility] Influenza Virus Vaccine Unknown Completed [facility] Remdesivir Unknown [facility] Remdesivir Unknown [facility] TDAP Unknown Completed [facility] Influenza High Dose Unknown Completed [facility] SARS-COV-2 COVID-19 MODERNA 12+ YRS VACCINE Unknown Completed [facility] Influenza High Dose Quad Unknown Completed [facility] Influenza Virus Vaccine Unknown Completed [facility] Remdesivir Unknown [facility] Remdesivir Unknown Completed [facility] TDAP Unknown Completed [facility] Influenza High Dose Unknown Completed [facility] SARS-COV-2 COVID-19 MODERNA 12+ YRS VACCINE Unknown Completed [facility] Influenza High Dose Quad Unknown Completed [facility] Influenza Virus Vaccine Unknown Completed [facility] Remdesivir Unknown [facility] Remdesivir Unknown Completed [facility] TDAP Unknown Completed [facility] Influenza, High-Dose, Trivalent, PF (FLUZONE) Unknown Completed [facility] SARS-COV-2 COVID-19 VACCINE - (MODERNA) Unknown [facility]pleted [facility] Influenza High Dose Quad Unknown Completed [facility] Influenza Virus Vaccine Unknown Completed [facility] Remdesivir Unknown Completed [facility] Remdesivir Unknown Completed [facility] Vital Signs Vital Name Observation Time Observation Value Comments S ource Systolic blood pressure 2023-12-31 06:44:00 128 mm[Hg] [facility] Diastolic blood pressure 2023-12-31 06:44:00 72 mm[Hg] [facility] Heart rate 2023-12-31 06:44:00 82 /min [facility] Body temperature 2023-12-31 06:44:00 36.67 [facility] Respiratory rate 2023-12-31 06:44:00 16 /min [facility] Oxygen saturation in Arterial blood by Pulse oximetry 2023-12-31 06:44:00 100 /min [facility] Body height 2023-12-31 02:28:00 177.8 cm [facility] Body weight 2023-12-31 02:28:00 82.101 kg [facility] BMI 2023-12-31 02:28:00 25.97 kg/m2 [facility] Systolic blood pressure 2023-03-02 01:30:00 96 mm[Hg] [facility] Diastolic blood pressure 2023-03-02 01:30:00 52 mm[Hg] [facility] Heart rate 2023-03-02 01:30:00 68 /min [facility] Body temperature 2023-03-02 01:30:00 36.11 [facility] Respiratory rate 2023-03-02 01:30:00 8 /min [facility] Oxygen saturation in Arterial blood by Pulse oximetry 2023-03-02 01:30:00 98 /min [facility] Body height 2023 21:02:00 182.9 cm [facility] Body weight 2023 21:02:00 74.39 kg [facility] BMI 2023 21:02:00 22.24 kg/m2 [facility] Systolic blood pressure 2023-02-24 21:44:00 99 mm[Hg] [facility] Diastolic blood pressure 2023-02-24 21:44:00 55 mm[Hg] [facility] Heart rate 2023-02-24 21:44:00 75 /min [facility] Body temperature 2023-02-24 21:44:00 36.78 [facility] Respiratory rate 2023-02-24 21:44:00 16 /min [facility] Body height 2023-02-24 21:44:00 182.9 cm [facility] Body weight 2023-02-24 21:44:00 74.39 kg [facility] BMI 2023-02-24 21:44:00 22.24 kg/m2 [facility] Oxygen saturation in Arterial blood by Pulse oximetry 2023-02-24 21:44:00 98 /min [facility] Systolic blood pressure 2023-02-06 16:00:00 109 mm[Hg] [facility] Diastolic blood pressure 2023-02-06 16:00:00 75 mm[Hg] [facility] Heart rate 2023-02-06 16:00:00 80 /min [facility] Body temperature 2023-02-06 16:00:00 36.28 [facility] Respiratory rate 2023-02-06 16:00:00 17 /min [facility] Oxygen saturation in Arterial blood by Pulse oximetry 2023-02-06 16:00:00 96 /min [facility] Body weight 2023-02-06 08:22:00 74.481 kg [facility] BMI 2023-02-06 08:22:00 22.27 kg/m2 [facility] Body height 2023-02-02 21:14:00 182.9 cm [facility] Systolic blood pressure 2023-01-29 16:38:00 108 mm[Hg] [facility] Diastolic blood pressure 2023-01-29 16:38:00 48 mm[Hg] [facility] Heart rate 2023-01-29 16:38:00 66 /min [facility] Body temperature 2023-01-29 16:38:00 37.06 [facility] Oxygen saturation in Arterial blood by Pulse oximetry 2023-01-29 16:38:00 95 /min [facility] Respiratory rate 2023-01-29 09:17:00 16 /min [facility] Body weight 2023-01-29 09:17:00 73.982 kg [facility] BMI 2023-01-29 09:17:00 22.12 kg/m2 [facility] Body height 2023-01-25 23:25:00 182.9 cm [facility] Systolic blood pressure 2023-01-20 22:00:00 123 mm[Hg] [facility] Diastolic blood pressure 2023-01-20 22:00:00 80 mm[Hg] [facility] Heart rate 2023-01-20 22:00:00 82 [facility] Body temperature 2023-01-20 22:00:00 36.89 [facility] Respiratory rate 2023-01-20 22:00:00 16 /min [facility] Oxygen saturation in Arterial blood by Pulse oximetry 2023-01-20 22:00:00 97 /min [facility] Body height 2023-01-20 19:16:00 167.6 cm [facility] Body weight 2023-01-20 19:16:00 80 kg [facility] BMI 2023-01-20 19:16:00 28.47 kg/m2 [facility] Systolic blood pressure 2022-12-01 16:54:00 125 mm[Hg] [facility] Diastolic blood pressure 2022-12-01 16:54:00 79 mm[Hg] [facility] Heart rate 2022-12-01 16:54:00 94 /min [facility] Body temperature 2022-12-01 16:54:00 36.56 [facility] Respiratory rate 2022-12-01 16:54:00 18 /min [facility] Oxygen saturation in Arterial blood by Pulse oximetry 2022-12-01 16:54:00 94 /min [facility] Body weight 2022-12-01 09:25:00 70.988 kg [facility] BMI 2022-12-01 09:25:00 21.23 kg/m2 [facility] Body height 2022-11-30 01:41:00 182.9 cm [facility] Systolic blood pressure 2022-11-26 22:00:00 126 mm[Hg] [facility] Diastolic blood pressure 2022-11-26 22:00:00 64 mm[Hg] [facility] Heart rate 2022-11-26 22:00:00 80 /min [facility] Oxygen saturation in Arterial blood by Pulse oximetry 2022-11-26 22:00:00 97 /min [facility] Respiratory rate 2022-11-26 21:00:00 18 /min [facility] Body temperature 2022-11-26 19:03:00 36.5 [facility] Body height 2022-11-26 19:03:00 188 cm [facility] Body weight 2022-11-26 19:03:00 95.255 kg [facility] BMI 2022-11-26 19:03:00 26.96 kg/m2 [facility] Body temperature 2022-10-30 17:00:00 36.94 [facility] Heart rate 2022-10-30 16:32:00 93 /min [facility] Respiratory rate 2022-10-30 16:32:00 18 /min [facility] Oxygen saturation in Arterial blood by Pulse oximetry 2022-10-30 16:32:00 97 /min [facility] Systolic blood pressure 2022-10-30 16:00:00 114 mm[Hg] [facility] Diastolic blood pressure 2022-10-30 16:00:00 87 mm[Hg] [facility] Body weight 2022-10-29 21:00:00 70.988 kg [facility] BMI 2022-10-29 21:00:00 22.46 kg/m2 [facility] Body height 2022-10-28 03:11:00 177.8 cm [facility] Systolic blood pressure 2022-08-27 19:48:00 97 mm[Hg] [facility] Diastolic blood pressure 2022-08-27 19:48:00 66 mm[Hg] [facility] Heart rate 2022-08-27 19:48:00 78 /min [facility] Respiratory rate 2022-08-27 19:48:00 18 /min [facility] Body height 2022-08-27 19:48:00 182.9 cm [facility] Body weight 2022-08-27 19:48:00 70.761 kg [facility] BMI 2022-08-27 19:48:00 21.16 kg/m2 [facility] Systolic blood pressure 2022-07-26 16:20:00 103 mm[Hg] [facility] Diastolic blood pressure 2022-07-26 16:20:00 67 mm[Hg] [facility] Heart rate 2022-07-26 16:20:00 94 /min [facility] Body temperature 2022-07-26 16:20:00 36.94 [facility] Respiratory rate 2022-07-26 16:20:00 20 /min [facility] Oxygen saturation in Arterial blood by Pulse oximetry 2022-07-26 16:20:00 94 /min [facility] Body weight 2022-07-26 09:30:00 70.988 kg [facility] BMI 2022-07-26 09:30:00 21.23 kg/m2 [facility] Body height 2022-07-21 02:02:00 182.9 cm [facility] Systolic blood pressure 2022-07-18 19:48:00 111 mm[Hg] [facility] Diastolic blood pressure 2022-07-18 19:48:00 61 mm[Hg] [facility] Heart rate 2022-07-18 19:48:00 69 /min [facility] Body temperature 2022-07-18 19:48:00 36.44 [facility] Respiratory rate 2022-07-18 19:48:00 18 /min [facility] Body height 2022-07-18 19:48:00 185.4 cm [facility] Body weight 2022-07-18 19:48:00 74.39 kg [facility] BMI 2022-07-18 19:48:00 21.64 kg/m2 [facility] Oxygen saturation in Arterial blood by Pulse oximetry 2022-07-18 19:48:00 100 /min [facility] Systolic blood pressure 2022-06-10 20:00:00 140 mm[Hg] [facility] Diastolic blood pressure 2022-06-10 20:00:00 56 mm[Hg] [facility] Heart rate 2022-06-10 20:00:00 81 /min [facility] Body temperature 2022-06-10 20:00:00 36.89 Nita [facility] Respiratory rate 2022-06-10 20:00:00 14 /min [facility] Oxygen saturation in Arterial blood by Pulse oximetry 2022-06-10 20:00:00 100 /min [facility] Body height 2022-06-10 16:20:00 182.9 cm [facility] Body weight 2022-06-10 16:20:00 74.39 kg [facility] BMI 2022-06-10 16:20:00 22.24 kg/m2 [facility] Systolic blood pressure 2022-05-28 17:22:00 112 mm[Hg] [facility] Diastolic blood pressure 2022-05-28 17:22:00 66 mm[Hg] [facility] Heart rate 2022-05-28 17:22:00 83 /min [facility] Body temperature 2022-05-28 17:22:00 36.28 Nita [facility] Respiratory rate 2022-05-28 17:22:00 18 /min [facility] Oxygen saturation in Arterial blood by Pulse oximetry 2022-05-28 17:22:00 98 /min [facility] Body weight 2022-05-28 10:02:00 74.481 kg [facility] BMI 2022-05-28 10:02:00 22.27 kg/m2 [facility] Body height 2022-05-27 04:42:00 182.9 cm [facility] Systolic blood pressure 2022-05-05 22:34:00 102 mm[Hg] [facility] Diastolic blood pressure 2022-05-05 22:34:00 58 mm[Hg] [facility] Heart rate 2022-05-05 22:34:00 79 /min [facility] Body temperature 2022-05-05 22:34:00 36.22 Nita [facility] Respiratory rate 2022-05-05 22:34:00 18 /min [facility] Oxygen saturation in Arterial blood by Pulse oximetry 2022-05-05 22:34:00 94 /min [facility] Body weight 2022-05-05 10:07:00 73.982 kg [facility] BMI 2022-05-05 10:07:00 20.94 kg/m2 [facility] Body height 2022-05-03 04:50:00 188 cm [facility] Systolic blood pressure 2021-12-05 19:40:00 115 mm[Hg] [facility] Diastolic blood pressure 2021-12-05 19:40:00 73 mm[Hg] [facility] Heart rate 2021-12-05 19:40:00 59 /min [facility] Body weight 2021-12-05 19:40:00 77.701 kg [facility] BMI 2021-12-05 19:40:00 23.89 kg/m2 [facility] Oxygen saturation in Arterial blood by Pulse oximetry 2021-12-05 19:40:00 97 /min [facility] Procedures Procedure Date / Time Performed Performing Clinician Source CT ABDOMEN PELVIS W CONTRAST 2023-12-31 04:45:00 Isaura Beck [facility] CT CHEST PULMONARY ANGIOGRAM 2023-12-31 04:45:00 Isaura Beck [facility] MAGNESIUM 2023-12-31 03:14:00 Isaura Beck [facility] COMP. METABOLIC PANEL ([id number]) 2023-12-31 03:14:00 Isaura Beck [facility] CBC WITH DIFF 2023-12-31 03:14:00 Isaura Beck [facility] URINALYSIS 2023-12-31 03:14:00 Isaura Beck [facility] XR ANKLE 3+ VW RIGHT 2023 23:02:00 Joseph Melendez [facility] COMP. METABOLIC PANEL ([id number]) 2023 21:37:00 Joseph Melendez [facility] CBC WITH DIFF 2023 21:37:00 Joseph Melendez [facility] BASIC METABOLIC PANEL (NA, K, CL, CO2, GLUCOSE, BUN, CREATININE, CA) 2023-02-24 21:45:00 Nicanor Lentz [facility] AUTHORIZATION FOR RELEASE OF PHI 2023-02-20 06:01:00 Doctor Unassigned, [place] [facility] BASIC METABOLIC PANEL (NA, K, CL, CO2, GLUCOSE, BUN, CREATININE, CA) 2023-02-05 08:20:00 Andreina Childs [facility] CBC WITH DIFF 2023-02-05 08:20:00 Andreina Childs [facility] BASIC METABOLIC PANEL (NA, K, CL, CO2, GLUCOSE, BUN, CREATININE, CA) 2023-02-04 09:27:00 Andreina Childs [facility] CBC WITH DIFF 2023-02-04 09:27:00 Amadeo Andreina [facility] JESSE AURIS SURVEILLANCE BY PCR (INFECTION CONTROL PURPOSES) 2023-02-03 21:48:00 Andreina Childs [facility] URINALYSIS 2023-02-03 14:42:00 Josefina Dasilva [facility] CBC WITH DIFF 2023-02-03 11:25:[address] [facility] BASIC METABOLIC PANEL (NA, K, CL, CO2, GLUCOSE, BUN, CREATININE, CA) 2023-02-03 10:19:00 Marlena Rios [facility] PROCALCITONIN 2023-02-03 10:19:[address] [facility] XR CHEST 1 VW 2023-02-02 19:00:[address] [facility] COMP. METABOLIC PANEL ([id number]) 2023-02-02 16:53:00 Andreina Uriarte [facility] CBC WITH DIFF 2023-02-02 16:53:[address] [facility] RAPID INFLUENZA A/B 2023-02-02 16:53:00 Andreina Uriarte [facility] COVID-19 (ID NOW RAPID TESTING) 2023-02-02 16:53:00 Andreina Uriarte [facility] LAB ONLY COVID INTERPRETATION 2023-02-02 16:53:00 Andreina Uriarte [facility] XR CHEST 1 VW 2023-01-28 18:01:[address] [facility] BASIC METABOLIC PANEL (NA, K, CL, CO2, GLUCOSE, BUN, CREATININE, CA) 2023-01-27 10:13:00 Andreina Childs [facility] VANCOMYCIN TROUGH 2023-01-27 10:13:00 Angelica Braga [facility] CBC WITH DIFF 2023-01-27 10:13:00 Andreina Childs [facility] WOUND/ASPIRATE OR ABSCESS CULTURE 2023-01-26 18:02:00 Jeanine [facility] WOUND CULTURE 2023-01-26 18:02:00 Keerthi Solorzano [facility] MRSA / MSSA SCREEN BY PCRARNOLD 2023-01-25 23:19:00 Marques Hines [facility] BLOOD CULTURE SCREEN 2023-01-25 20:41:00 Lavon Soni [facility] COMP. METABOLIC PANEL ([id number]) 2023-01-25 20:41:00 Virginia Soni [facility] SEDIMENTATION RATE 2023-01-25 20:41:00 Marco A Soni [facility] CBC WITH DIFF 2023-01-25 20:41:00 Dave, [place] J [facility] LACTIC ACID WHOLE BLOOD 2023-01-25 20:41:00 Virginia Soni [facility] XR ANKLE 3+ VW RIGHT 2023-01-25 20:38:12 Lavon Soni [facility] CONSENT/REFUSAL FOR DIAGNOSIS AND TREATMENT 2023-01-25 20:04:39 Doctor Unassigned, [place] [facility] EMERGENCY DEPARTMENT DOCUMENTS 2023-01-25 05:01:00 Doctor Unassigned, [place] [facility] RAPID STREP SCREEN FOR GROUP A 2023-01-20 21:38:00 Virginia Soni [facility] CT HEAD WO CONTRAST 2023-01-20 19:55:01 Hali Soni ra [facility] XR CHEST 1 VW 2023-01-20 19:54:03 Virginia Soni [facility] TROPONIN I 2023-01-20 19:24:00 Virginia Soni [facility] COMP. METABOLIC PANEL ([id number]) 2023-01-20 19:24:00 Virgniia Soni [facility] CBC WITH DIFF 2023-01-20 19:24:00 Virginia Soni [facility] RAPID INFLUENZA A/B 2023-01-20 19:24:00 Hali Soni ra [facility] N-TERMINAL PRO-BNP 2023-01-20 19:24:00 Marco A Soni [facility] COVID-19 (ID NOW RAPID TESTING) 2023-01-20 19:24:00 Virginia Soni [facility] MAGNESIUM 2023-01-20 19:24:00 Virginia Soni [facility] BASIC METABOLIC PANEL (NA, K, CL, CO2, GLUCOSE, BUN, CREATININE, CA) 2022-12-01 11:21:00 Andreina Childs [facility] XR ANKLE 3+ VW RIGHT 2022-11-30 01:09:00 Juno Verdin [facility] XR KUB 2022-11-29 23:28:59 Juno Verdin [facility] COMP. METABOLIC PANEL ([id number]) 2022-11-29 23:10:00 Juno Verdin [facility] CBC WITH DIFF 2022-11-29 23:10:[address] [facility] CT ABDOMEN PELVIS W CONTRAST 2022-11-26 21:46:20 Frankie [facility] COMP. METABOLIC PANEL ([id number]) 2022-11-26 19:54:00 Frankie Olman [facility] CBC WITH DIFF 2022-11-26 19:54:00 Frankie [facility] ASSIGNMENT OF BENEFITS 2022-11-26 19:35:58 Docto r Unassigned, [place] [facility] CONSENT/REFUSAL FOR DIAGNOSIS AND TREATMENT 2022-11-26 19:35:18 Doctor Unassigned, [place] [facility] XR CHEST 1 VW 2022-11-26 19:29:39 Frankie [facility] CONSENT/REFUSAL FOR DIAGNOSIS AND TREATMENT 2022-11-26 19:13:37 Doctor Unassigned, [place] [facility] CONSENT/REFUSAL FOR DIAGNOSIS AND TREATMENT 2022-11-26 19:09:05 Doctor Unassigned, [place] [facility] EXTERNAL PROVIDER - ADC CARDIOLOGY 2022-11-21 05:01:00 Doctor Unassigned, [place] [facility] XR CHEST 1 VW 2022-10-30 11:30:00 Aziza Echevarria [facility] MAGNESIUM 2022-10-30 09:09:00 Aizza Echevarria [facility] BASIC METABOLIC PANEL (NA, K, CL, CO2, GLUCOSE, BUN, CREATININE, CA) 2022-10-30 09:09:00 [facility] 2022-10-30 09:09:00 Aziza Echevarria [facility] POCT GLUCOSE (AUTOMATED) 2022-10-29 13:16:00 Chaz Roberts [facility] MAGNESIUM 2022-10-29 07:50:00 [facility]OLIC PANEL (NA, K, CL, CO2, GLUCOSE, BUN, CREATININE, CA) 2022-10-29 07:50:00 Echevarria, [facility] CBC WITH DIFF 2022-10-29 07:50:00 Aziza Echevarria [facility] POCT GLUCOSE (AUTOMATED) 2022-10-29 01:59:00 [facility] POCT GLUCOSE (AUTOMATED) 2022-10-28 21:26:00 [facility] POCT GLUCOSE (AUTOMATED) 2022-10-28 16:56:00 [facility] LEGIONELLA AND STREPTOCOCCUS PNEUMONIAE URINARY ANTIGENS 2022-10-28 16:05:00 [facility] JESSE AURIS SURVEILLANCE BY PCR (INFECTION CONTROL PURPOSES) 2022-10-28 15:51:00 Lydia Tristan [facility] BASIC METABOLIC PANEL (NA, K, CL, CO2, GLUCOSE, BUN, CREATININE, CA) 2022-10-28 15:45:00 Wale [facility] CBC WITH DIFF 2022-10-28 15:45:00 Aziza Echevarria [facility] LACTIC ACID WHOLE BLOOD 2022-10-28 15:32:00 Lydia Tuttle [facility] PROCALCITONIN 2022-10-28 15:32:00 Lydia Tristan [facility] POCT GLUCOSE (AUTOMATED) 2022-10-28 13:54:00 [facility] BLOOD CULTURE SCREEN 2022-10-28 06:55:00 Lashon Beck i [facility] XR CHEST 1 VW 2022-10-28 04:21:00 Marcie Nickerson [facility] THROAT CULTURE 2022-10-28 03:42:00 Krishan [facility] RAPID STREP SCREEN FOR GROUP A 2022-10-28 03:42:00 Marcie Nickerson [facility] COVID-19 (ID NOW RAPID TESTING) 2022-10-28 03:42:00 Krishan [facility] LAB ONLY COVID INTERPRETATION 2022-10-28 03:42:00 Marcie Nickerson [facility] MAGNESIUM 2022-10-28 03:26:00 Chaz Roberts [facility] TROPONIN I 2022-10-28 03:26:00 Marcie Nickerson [facility] COMP. METABOLIC PANEL ([id number]) 2022-10-28 03:26:00 Marcie Nickerson [facility] CBC WITH DIFF 2022-10-28 03:26:00 Marcie Nickerson [facility] GLYCOSYLATED HEMOGLOBIN (A1C) 2022-10-28 03:26:00 Lydia Tristan [facility] URINALYSIS 2022-10-28 03:26:00 Marcie Nickerson [facility] LACTIC ACID WHOLE BLOOD 2022-10-28 03:26:00 Marcie Nickerson [facility] ASSIGNMENT OF BENEFITS 2022-10-28 03:23:04 Docto r Unassigned, [place] [facility] NOTICE OF PRIVACY PRACTICES 2022-10-28 03:22:29 Doctor Unassigned, [place] [facility] CONSENT/REFUSAL FOR DIAGNOSIS AND TREATMENT 2022-10-28 03:22:10 Doctor Unassigned, [place] [facility] HB ECG ROUTINE & RHYTHM STRIP 2022-10-28 03:09:11 Marcie Nickerson [facility] CT THORAX W CONTRAST 2022-07-25 18:16:16 Juancarlos Rios i [facility] RAPID INFLUENZA A/B 2022-07-25 17:15:00 Marlena Rios [facility] COVID-19 (ID NOW RAPID TESTING) 2022-07-25 17:15:00 Marlena Rios [facility] BASIC METABOLIC PANEL (NA, K, CL, CO2, GLUCOSE, BUN, CREATININE, CA) 2022-07-25 09:46:00 Andreina Childs [facility] CBC WITH DIFF 2022-07-25 09:46:00 Andreina Childs [facility] XR CHEST 1 VW 2022-07-25 00:09:00 Andreina Childs [facility] BASIC METABOLIC PANEL (NA, K, CL, CO2, GLUCOSE, BUN, CREATININE, CA) 2022-07-24 09:31:00 Andreina Childs [facility] CBC WITH DIFF 2022-07-24 09:31[facility] PCRARNOLD 2022-07-23 21:06:00 Andreina Childs [facility] CBC WITH DIFF 2022-07-22 10:41:00 Leroy Soni [facility] BASIC METABOLIC PANEL (NA, K, CL, CO2, GLUCOSE, BUN, CREATININE, CA) 2022-07-22 09:09:00 Leroy Soni [facility] WOUND/ASPIRATE OR ABSCESS CULTURE 2022-07-21 16:22:00 Alirio Locke [facility] WOUND CULTURE 2022-07-21 16:22:00 Alirio Locke [facility] XR ANKLE <3 VW RIGHT 2022-07-21 12:18:38 Singer [facility] BLOOD CULTURE SCREEN 2022-07-21 02:26:00 Singer [facility] COMP. METABOLIC PANEL ([id number]) 2022-07-21 02:26:00 Singer [facility] SEDIMENTATION RATE 2022-07-21 02:26:00 Singer [facility] CBC WITH DIFF 2022-07-21 02:26:00 Singer [facility] LACTIC ACID WHOLE BLOOD 2022-07-21 02:25:00 , [facility] LACTIC ACID WHOLE BLOOD 2022-07-18 20:14:00 , [facility] COMP. METABOLIC PANEL ([id number]) 2022-07-18 20:12:00 Singer [facility] SEDIMENTATION RATE 2022-07-18 20:12:00 Singer [facility] CBC WITH DIFF 2022-07-18 20:12:00 Singer [facility] CT ABDOMEN PELVIS W CONTRAST 2022-06-10 18:56:57 Joseph Melendez [facility] XR CHEST 1 VW 2022-06-10 18:39:57 Joseph Melendez Veronica [facility] URINALYSIS 2022-06-10 18:30:00 [facility] ASSIGNMENT OF BENEFITS 2022-06-10 17:41:23 Docto r Unassigned, [place] [facility] CONSENT/REFUSAL FOR DIAGNOSIS AND TREATMENT 2022-06-10 17:39:47 Doctor Unassigned, [place] [facility] LIPASE 2022-06-10 17:15:00 [facility] MAGNESIUM 2022-06-10 17:15:00 [facility] TROPONIN I 2022-06-10 17:15:00 [facility] COMP. METABOLIC PANEL ([id number]) 2022-06-10 17:15:00 Joseph Melendez [facility] CBC WITH DIFF 2022-06-10 17:15:00 Joseph Melendez Veronica [facility] EXTERNAL PROVIDER RECORDS 2022-06-03 06:01:00 Do ctor Unassigned, [place] [facility] BASIC METABOLIC PANEL (NA, K, CL, CO2, GLUCOSE, BUN, CREATININE, CA) 2022-05-28 10:01:00 Andreina Childs Alysa [facility] CBC WITH DIFF 2022-05-28 10:01:00 Andreina Childs [facility] BASIC METABOLIC PANEL (NA, K, CL, CO2, GLUCOSE, BUN, CREATININE, CA) 2022-05-27 10:03:00 Brown [facility] CBC WITH DIFF 2022-05-27 10:03:00 [facility] CT ABDOMEN PELVIS WO CONTRAST 2022-05-27 00:19:06 Marcie Nickerson [facility] XR CHEST 1 VW 2022-05-27 00:18:27 Marcie Nickerson [facility] COMP. METABOLIC PANEL ([id number]) 2022-05-26 23:52:00 Marcie Nickerson [facility] CBC WITH DIFF 2022-05-26 22:55:00 Marcie Nickerson [facility] COVID-19 (ID NOW RAPID TESTING) 2022-05-26 22:41:00 Marcie Nickerson [facility] LAB ONLY COVID INTERPRETATION 2022-05-26 22:41:00 Marcie Nickerson [facility] BASIC METABOLIC PANEL (NA, K, CL, CO2, GLUCOSE, BUN, CREATININE, CA) 2022-05-05 10:38:00 Leroy Soni [facility] CBC WITH DIFF 2022-05-05 10:38:00 Leroy Soni [facility] FECES CULTURE 2022-05-03 15:27:[address] [facility] OCCULT (GUAIAC) BLOOD 2022-05-03 15:27:00 Randi Dasilva [facility] CLOSTRIDIUM DIFFICILE TOXIN 2022-05-03 15:25:00 Singer [facility] BASIC METABOLIC PANEL (NA, K, CL, CO2, GLUCOSE, BUN, CREATININE, CA) 2022-05-03 11:51:00 Brown [facility] CBC WITH DIFF 2022-05-03 11:51:00 Brown [facility] CT ABDOMEN PELVIS W CONTRAST 2022-05-03 01:40:00 Singer [facility] COMP. METABOLIC PANEL ([id number]) 2022-05-03 00:41:00 Singer [facility] CBC WITH DIFF 2022-05-03 00:41:00 Singer [facility] Encounters Start Date/Time End Date/Time Encounter Type Admission Type Attending Clinicians Care Facility Care Department Encounter ID Source 2024-03-11 12:28:00 2024-03-11 15:13:00 Emergency X MONICA RYAN [facility] ERT [id number] [facility] 2023-12-30 21:24:00 2023-12-31 02:06:00 Emergency X ISAURA BECK WAKILI [facility] ERT [id number] [facility] 2023-12-30 21:24:00 2023-12-31 02:06:00 Emergency Isaura Beck [facility] 1.2.840.114 350.1.13.10 4.2.7.2.686 [id number] [facility] 2023-09-02 13:45:00 2023-09-02 13:45:00 Outpatient NATALIE SALTER [facility] [id number] [facility] 2023 14:51:00 2023 20:06:00 Emergency Kevin Joseph MELENDEZ [facility] ERT [id number] [facility] 2023 14:51:00 2023 20:06:[address] [facility] 1.2840.114 350.1.13.10 4.2.7.2.686 [id number] [facility] 2023-02-24 15:31:00 2023-02-24 17:09:00 Emergency Kevin LENTZNICANOR [facility] ERT [id number] [facility] 2023-02-24 15:31:00 2023-02-24 17:09:[address] [facility] 1.2840.114 350.1.13.10 4.2.7.2.686 [id number] [facility] 2023-02-09 00:00:00 2023-02-09 00:00:00 Transition of Care Shira Mead 1.2.840.114 350.1.13.10 4.2.7.2.686 [id number] [facility] 2023-02-02 11:13:00 2023-02-06 14:30:00 Inpatient X DONNY[facility] [id number] [facility] 2023-02-02 11:13:00 2023-02-06 14:30:00 Hospital Encounter UriarteAndreina, Marques Talamantes [facility] 1.2.840.114 350.1.13.10 4.2.7.2.686 [id number] [facility] 2023-01-25 14:59:00 2023-01-29 14:45:00 Outpatient MARQUES ABDALLA [facility] [id number] [facility] 2023-01-25 14:59:00 2023-01-29 14:45:00 Emergency Virginia Soni [facility] 1.2.840.114 350.1.13.10 4.2.7.2.686 [id number] [facility] 2023-01-20 14:16:00 2023-01-20 18:32:00 Emergency VIRGINIA FRANK [facility] ERT [id number] [facility] 2023-01-20 14:16:00 2023-01-20 18:32:[address] [facility] 1.2.840.114 350.1.13.10 4.2.7.2.686 [id number] [facility] 2022-12-02 00:00:00 2022-12-02 00:00:00 Transition of Care Ena Vaughn 1.2.840.114 350.1.13.10 4.2.7.2.686 [id number] [facility] 2022-11-29 17:47:00 2022-12-01 15:01:00 Outpatient MARQUES ABDALLA [facility] [id number] [facility] 2022-11-29 17:47:00 2022-12-01 15:01:00 Emergency Juno Verdin [facility] 1.2.840.114 350.1.13.10 4.2.7.2.686 [id number] [facility] 2022-11-26 14:05:00 2022-11-26 20:18:00 Emergency X FRANKIE [facility] ERT [id number] [facility] 2022-11-26 14:05:00 2022-11-26 20:18:[address] [facility] 1.2.840.114 350.1.13.10 4.2.7.2.686 [id number] [facility] 2022-11-21 00:00:00 2022-11-21 00:00:00 Orders Only Doctor Unassigned, [place] [facility] 1.2.840.114 350.1.13.10 4.2.7.2.686 [id number] [facility] 2022-10-31 00:00:00 2022-10-31 00:00:00 Transition of Care Ena Vaughn 1.2.840.114 350.1.13.10 4.2.7.2.686 [id number] [facility] 2022-10-27 22:03:00 2022-10-30 14:20:00 Inpatient X LYDIA TRISTAN [facility] [id number] [facility] 2022-10-27 22:03:00 2022-10-30 14:20:00 Hospital Encounter Marcie Nickerson, Isaura Roberts, Lydia Leonard [facility] 1.2.840.114 350.1.13.10 4.2.7.2.686 [id number] [facility] 2022-08-27 14:15:00 2022-08-27 15:25:22 Outpatient NATALIE SALTER [facility] [id number] [facility] 2022-08-27 14:15:00 2022-08-27 15:25:22 Office Visit Katalina Triveditney [facility] 1.2.114 350.1.13.10 4.2.7.2.686 [id number] [facility] 2022-07-31 00:00:00 2022-07-31 00:00:00 Patient Secure Msg Doctor Unassigned, [place] [facility] 1.0.114 350.1.13.10 4.2.7.2.686 [id number] [facility] 2022-07-30 14:15:00 2022-07-30 14:15:00 Outpatient R KATALINA TRIVEDITNEY [facility] [id number] [facility] 2022-07-28 00:00:00 2022-07-28 00:00:00 Transition of Care Ena Vaughn [facility]ARA [facility]ARTAGE[facility] 1.0.114 350.1.13.10 4.2.7.2.686 [id number] [facility] 2022-07-20 20:56:00 2022-07-26 16:35:00 Hospital Encounter Nicanor Lentz Santhosh Morris, David [facility] 1.0.114 350.1.13.10 4.2.7.2.686 [id number] [facility] 2022-07-18 14:46:00 2022-07-18 18:35:00 Emergency X NICANOR LENTZ [facility] ERT [id number] [facility] 2022-07-18 14:46:00 2022-07-18 18:35:[address] [facility] 1.20.114 350.1.13.10 4.2.7.2.686 [id number] [facility] 2022-07-18 14:46:00 2022-07-18 18:35:00 Emergency X NICANOR LENTZ [facility] ERT [id number] [facility] 2022-07-02 00:00:00 2022-07-02 00:00:00 Telephone Jean Jarrett [facility] 1..840.114 350.1.13.10 4.2.7.2.686 [id number] [facility] 2022-07-01 00:00:00 2022-07-01 00:00:00 [facility] 1..840.114 350.1.13.10 4.2.7.2.686 [id number] [facility] 2022-06-19 14:30:00 2022-06-19 14:30:00 Outpatient R DOUGIE GILES [facility] [id number] [facility] 2022-06-16 00:00:00 2022-06-16 00:00:00 [facility] 1..840.114 [id number] [facility] 2022-06-10 10:22:00 2022-06-10 16:51:00 Emergency X Joseph MELENDEZ [facility] ERT [id number] [facility] 2022-06-10 10:22:00 2022-06-10 16:51:[address] [facility] 1..840.114 350.1.13.10 4.2.7.2.686 [id number] [id number] [facility] 2022-06-03 00:00:00 2022-06-03 00:00:00 Orders Only Doctor Unassigned, [place] [facility] 1.2840.114 350.1.13.10 4.2.7.2.686 [id number] [id number] [facility] 2022-06-03 00:00:00 2022-06-03 00:00:00 [facility] 1.2840.114 350.1.13.10 4.2.7.2.686 [id number] 044 [id number] [facility] 2022-05-29 00:00:00 2022-05-29 00:00:00 Transition of Care Ena Vaughn 1.2840.114 350.1.13.10 4.2.7.2.686 [id number] [facility] 2022-05-26 16:25:00 2022-05-28 14:40:00 Inpatient X MARLENA RIOS [facility] [id number] [facility] 2022-05-26 16:25:00 2022-05-28 14:40:00 Hospital Encounter KrishanMarcie Jelani [facility] 1.2840.114 350.1.13.10 4.2.7.2.686 [id number] [facility] 2022-05-23 00:00:00 2022-05-23 00:00:00 [facility]phone [facility] 1.2840.114 350.1.13.10 4.2.7.2.686 [id number] 044 [id number] [facility] 2022-05-05 18:41:00 2022-05-16 14:13:00 Inpatient 3 Mindy-Yaritza [place]erman [place] [id number] [facility] [place] 2022-05-06 00:00:00 2022-05-06 00:00:00 Transition of Care Ena Vaughn 1.2.840.114 350.1.13.10 4.2.7.2.686 [id number] [facility] 2022-05-02 18:19:00 2022-05-05 17:40:00 Outpatient X [facility] [id number] [facility] 2022-05-02 18:19:00 2022-05-05 17:40:00 Emergency [facility]icanor [facility] 1.2.840.114 350.1.13.10 4.2.7.2.686 [id number] [facility] 2022-05-01 00:00:00 2022-05-01 00:00:00 [facility] MEDICAL OFFICE BUILDING 1.2.840.114 350.1.13.10 4.2.7.2.686 [id number] 044 [id number] [facility] 2022-04-17 00:00:00 2022-04-17 00:00:00 [facility] MED[facility] OFF[facility] BUILD[facility] 1.2.840.114 350.1.13.10 4.2.7.2.686 [id number] 044 [id number] [facility] 2021-12-05 14:30:00 2021-12-05 14:45:00 Office Visit Chan [facility] MEDICAL OFFICE BUILDING 1.2.840.114 350.1.13.10 4.2.7.2.686 [id number] 044 [id number] [facility] 2021-12-05 14:30:00 2021-12-05 14:30:00 [facility] [id number] [facility] 2021-12-05 14:30:00 2021-12-05 14:30:00 Outpatient DOUGIE BLACKMON [facility] [id number] [facility] 2021-12-05 00:00:00 2021-12-05 00:00:00 Orders Only Doctor Unassigned, [place] [facility] 1.2.840.114 350.1.13.10 4.2.7.2.686 [id number] [id number] [facility] 2021-11-28 14:00:00 2021-11-28 14:00:00 Outpatient DOUGIE BLACKMON [facility] [id number] [facility] 2021-11-27 00:00:00 2021-11-27 00:00:00 Natalie Cyr [facility] 1.2.840.114 350.1.13.10 4.2.7.2.686 [id number] [facility] 2021-11-21 14:30:00 2021-11-21 14:30:00 Outpatient DOUGIE BLACKMON [facility] [id number] [facility] 2021-11-18 15:00:00 2021-11-18 15:00:00 Nurse Visit Nurse, [facility] 1.2.840.114 350.1.13.10 4.2.7.2.686 [id number] [facility] 2021-11-18 15:00:00 2021-11-18 13:15:55 Outpatient R KATALINA TRIVEDITNEY [facility] [id number] [facility] 2021-11-11 11:15:00 2021-11-11 14:37:03 Outpatient [facility] [id number] [facility] 2021-11-11 11:15:00 2021-11-11 14:37:03 Nurse Visit Nurse, [facility] Surgery Trivedi, [facility] BUILDING 1.2.840.114 350.1.13.10 4.2.7.2.686 [id number] [facility] 2021-11-11 00:00:00 2021-11-11 00:00:00 Telephone Farooq [facility] BUILDING 1.2.840.114 350.1.13.10 4.2.7.2.686 [id number] [facility] 2021-10-24 00:00:00 2021-10-24 00:00:00 Refill Chan [facility]?MARISAMayte [facility] MEDICAL OFFICE BUILDING 1.284.114 350.1.13.10 4.2.7.2.686 [id number] 044 [id number] [facility] 2021-10-22 16:00:00 2021-10-22 16:00:00 Nurse Visit Nurse, [facility] Surgery Farooq [facility] 1..840.114 350.1.13.10 4.2.7.2.686 [id number] [facility] 2021-10-22 16:00:00 2021-10-22 15:58:34 Outpatient R [facility] [id number] [facility] 2021-10-22 00:00:00 2021-10-22 00:00:00 [facility] 1..840.114 350.1.13.10 4.2.7.2.686 [id number] [facility] 2021-09-24 00:00:00 2021-09-24 00:00:00 [facility] MEDICAL OFFICE BUILDING 1.2840.114 350.1.13.10 4.2.7.2.686 [id number] 044 [id number] [facility] 2021-09-17 00:00:00 2021-09-17 00:00:00 Orders Only Doctor Unassigned, [place] [facility] 1.20.114 350.1.13.10 4.2.7.2.686 [id number] [id number] [facility] 2021-07-31 15:00:00 2021-07-31 15:42:22 Outpatient [facility] [id number] [facility] 2021-07-31 15:00:00 2021-07-31 15:42:22 [facility] 1.0.114 350.1.13.10 4.2.7.2.686 [id number] [facility] 2021-07-31 15:00:00 2021-07-31 15:00:00 Outpatient R [facility] [id number] [facility] 2021-07-31 00:00:00 2021-07-31 00:00:00 Orders Only Doctor Unassigned, [place] [facility] 1..114 350.1.13.10 4.2.7.2.686 [id number] [id number] [facility] 2021-07-30 00:00:00 2021-07-30 00:00:00 Telephone Jelani Cordon [facility] 1..114 350.1.13.10 4.2.7.2.686 [id number] 092 [id number] [facility] 2021-07-29 00:00:00 2021-07-29 00:00:00 Telephone Jean Jarrett [facility] NAL BUILDING 1..114 350.1.13.10 4.2.7.2.686 [id number] [facility] 2021-07-22 00:00:00 2021-07-22 00:00:00 Orders Only Doctor Unassigned, [place] [facility] 1.2840.114 350.1.13.10 4.2.7.2.686 [id number] [id number] [facility] 2021-06-26 00:00:00 2021-06-26 00:00:00 Orders Only Doctor Unassigned, [place] [facility] 1.2840.114 350.1.13.10 4.2.7.2.686 [id number] [id number] [facility] 2021-06-19 14:30:00 2021-06-19 14:30:00 Outpatient R DOUGIE GILES [facility] [id number] [facility] 2021-06-15 00:00:00 2021-06-15 00:00:00 Orders Only Doctor Unassigned, [place] [facility] 1.2840.114 350.1.13.10 4.2.7.2.686 [id number] [id number] [facility] 2021-06-03 15:45:00 2021-06-03 15:45:00 Outpatient JEAN ERWIN [facility] [id number] [facility] 2021-06-03 00:00:00 2021-06-03 00:00:00 Telephone Jean Jarrett [facility] NAL BUILDING 1.840.114 350.1.13.10 4.2.7.2.686 [id number] [facility] 2021-05-15 00:00:00 2021-05-15 00:00:00 Telephone [facility] 1.2840.114 350.1.13.10 4.2.7.2.686 [id number] 044 [id number] [facility] 2021-05-01 00:00:00 2021-05-01 00:00:00 Telephone Liane Negrete [facility] 1..114 350.1.13.10 4.2.7.2.686 [id number] [facility] 2021-04-30 00:00:00 2021-04-30 00:00:00 Telephone Only, Ang Db Test [facility] MEDICAL OFFICE BUILDING 1..114 350.1.13.10 4.2.7.2.686 [id number] [facility] 2021-04-29 15:00:00 2021-04-29 15:15:00 Laboratory Only Only, Ang Db Test Mannie Vásquez [facility] MEDICAL OFFICE BUILDING 1.114 350.1.13.10 4.2.7.2.686 [id number] [facility] 2021-04-29 15:00:00 2021-04-29 15:00:00 Outpatient R MANNIE VÁSQUEZ [facility] [id number] [facility] 2021-04-29 00:00:00 2021-04-29 00:00:00 Orders Only Doctor Unassigned, [place] [facility] 1.114 350.1.13.10 4.2.7.2.686 [id number] [id number] [facility] 2021-04-11 14:15:00 2021-04-11 15:10:33 Outpatient R DOUGIE GILES [facility] [id number] [facility] 2021-04-11 14:15:00 2021-04-11 14:30:00 Office Visit Dougie Giles [facility] MEDICAL OFFICE BUILDING 1.114 350.1.13.10 4.2.7.2.686 [id number] [id number] [facility] 2021-04-11 14:15:00 2021-04-11 14:15:00 Outpatient R DOUGIE GILES [facility] [id number] [facility] 2021-04-11 14:15:00 2021-04-11 14:15:00 Outpatient R DOUGIE GILES [facility] [id number] [facility] 2021-04-11 14:15:00 2021-04-11 14:15:00 Outpatient R DOUGIE GILES [facility] [id number] [facility] 2021-03-25 15:30:00 2021-03-25 16:15:24 Outpatient R MARGI BOYD [facility] [id number] [facility] 2021-03-25 15:30:00 2021-03-25 16:15:24 Office Visit Margi Boyd [facility] 1.840.114 350.1.13.10 4.2.7.2.686 [id number] [facility] 2021-03-25 15:30:00 2021-03-25 16:15:24 Outpatient R MARGI BOYD [facility] [id number] [facility] 2021-03-08 00:00:00 2021-03-08 00:00:00 Orders Only Doctor Unassigned, [place] [facility] 1.840.114 350.1.13.10 4.2.7.2.686 [id number] [id number] [facility] 2021-03-07 13:15:00 2021-03-07 14:35:42 Outpatient R JEAN JARRETT [facility] [id number] [facility] 2021-03-07 13:12:17 2021-03-07 14:35:42 [facility].840.114 350.1.13.10 4.2.7.2.686 [id number] [facility] 2021-03-07 13:15:00 2021-03-07 13:15:00 Outpatient JEAN ERWIN [facility] [id number] [facility] 2021-02-25 00:00:00 2021-02-25 00:00:00 Orders Only Doctor Unassigned, [place] [facility] 1.2840.114 350.1.13.10 4.2.7.2.686 [id number] [id number] [facility] 2021-02-21 00:00:00 2021-02-21 00:00:00 [facility] MEDICAL OFFICE BUILDING 1.84.114 350.1.13.10 4.2.7.2.686 [id number] 044 [id number] [facility] 2021-02-01 00:00:00 2021-02-01 00:00:00 Telephone [facility] 1.840.114 350.1.13.10 4.2.7.2.686 [id number] 092 [id number] [facility] 2021-01-30 00:00:00 2021-01-30 00:00:00 Telephone Chan [facility]KS?MARISAMayte [facility] MEDICAL OFFICE BUILDING 1.84.114 350.1.13.10 4.2.7.2.686 [id number] 044 [id number] [facility] 2021-01-30 00:00:00 2021-01-30 00:00:00 Telephone Chan Dougie [facility]?MARISAMayte [facility] MEDICAL OFFICE BUILDING 1.284.114 350.1.13.10 4.2.7.2.686 [id number] 044 [id number] [facility] 2021-01-18 15:11:53 2021-01-18 15:41:53 Office Visit Justine Garcia [facility] j[facility] Medical Office Building 1.2.840.114 350.1.13.10 4.2.7.2.686 [id number] 044 [id number] [facility] 2021-01-18 15:00:00 2021-01-18 15:00:00 Outpatient R MARIAH GARCIALIE [facility] [id number] [facility] 2021-01-17 00:00:00 2021-01-17 00:00:00 Telephone Chan [facility] Building 1.2.840.114 350.1.13.10 4.2.7.2.686 [id number] 044 [id number] [facility] 2020-11-22 00:00:00 2020-11-22 00:00:00 Telephone Giles, Dougie [facility] Office Building One 1..840.114 350.1.13.10 4.2.7.2.686 [id number] 044 [id number] [facility] 2020-11-19 00:00:00 2020-11-19 00:00:00 Refill Chan Dougie [facility] Building 1..840.114 350.1.13.10 4.2.7.2.686 [id number] 044 [id number] [facility] 2020-10-18 11:40:10 2020-10-18 12:00:10 Public Health Teacher Visit Lab, Adc Fam Pob I Chan [facility] Office Building One 1..840.114 350.1.13.10 4.2.7.2.686 [id number] 044 [id number] [facility] 2020-10-18 11:20:00 2020-10-18 11:20:00 Outpatient R [facility] [id number] [facility] 2020-10-11 13:52:36 2020-10-11 14:07:36 Office Visit Dougie Giles [facility] Office Building One 1..840.114 350.1.13.10 4.2.7.2.686 [id number] [id number] [facility] 2020-10-11 14:00:00 2020-10-11 14:00:00 Outpatient Joaquín GILES DOUGIE [facility] [id number] [facility] 2020-10-11 00:00:00 2020-10-11 00:00:00 Orders Only Doctor Unassigned, [place] [facility] 1..840.114 350.1.13.10 4.2.7.2.686 [id number] [id number] [facility] 2020-09-28 00:00:00 2020-09-28 00:00:00 Refill Giles Dougie [facility] Building 1..840.114 350.1.13.10 4.2.7.2.686 [id number] 044 [id number] [facility] 2020-09-27 14:00:00 2020-09-27 14:00:00 Outpatient Joaquín LEEGILES DOUGIE [facility] [id number] [facility] 2020-08-28 13:43:19 2020-08-28 14:44:37 Office Visit Jelani Cordon [facility] Building 1..840.114 350.1.13.10 4.2.7.2.686 [id number] [facility] 2020-08-28 14:20:00 2020-08-28 14:20:00 Outpatient JELANI NOVAK HOWARD [facility] [id number] [facility] 2020-08-02 00:00:00 2020-08-02 00:00:00 Jelani Espinoza [facility] Building 1..840.114 350.1.13.10 4.2.7.2.686 [id number] [facility] 2020-07-17 00:00:00 2020-07-17 00:00:00 Orders Only Doctor Unassigned, [place] [facility] 1.2840.114 350.1.13.10 4.2.7.2.686 [id number] [id number] [facility] 2020-07-09 00:00:00 2020-07-09 00:00:00 Dougie Burgess [facility] Office Building One 1.840.114 350.1.13.10 4.2.7.2.686 [id number] [facility] 2020-06-07 17:50:00 2020-06-07 17:50:00 Outpatient JEZ DUNNE [facility] [id number] [facility] 2020-06-07 16:00:00 2020-06-07 16:00:00 Outpatient JEZ DUNNE [facility] [id number] [facility] 2020-05-10 18:10:00 2020-05-10 18:10:00 Outpatient JEZ DUNNE [facility] [id number] [facility] 2020-05-08 00:00:00 2020-05-08 00:00:00 Jelani Espinoza [facility] Building 1.2.840.114 350.1.13.10 4.2.7.2.686 [id number] [facility] 2020-04-02 00:00:00 2020-04-02 00:00:00 Dougie Burgess [facility] Building 1..840.114 350.1.13.10 4.2.7.2.686 [id number] 044 [id number] [facility] 2020-03-12 00:00:00 2020-03-12 00:00:00 Telephone [facility] Office Building One 1.2.840.114 350.1.13.10 4.2.7.2.686 [id number] [facility] 2020-03-09 00:00:00 2020-03-09 00:00:00 Telephone Jelani Cordon [facility] Building 1.2.840.114 350.1.13.10 4.2.7.2.686 [id number] 092 [id number] [facility] 2020-01-11 00:00:00 2020-01-11 00:00:00 Telephone Jelani Cordon [facility] Building 1.2.840.114 350.1.13.10 4.2.7.2.686 [id number] [id number] [facility] 2019-10-03 00:00:00 2019-10-03 00:00:00 Telephone Jelani Cordon [facility] 1.2.840.114 350.1.13.10 4.2.7.2.686 [id number] [facility] 2019-09-22 08:30:00 2019-09-22 08:30:00 Outpatient DOUGIE BLACKMON [facility] [id number] [facility] 2019-09-19 13:45:00 2019-09-19 13:45:00 Outpatient Joaquín GILES DOUGIE [facility] [id number] [facility] 2019-09-19 07:50:44 2019-09-19 08:05:44 Telemedici ne Visit GilesDougie [facility] Building 1.2.840.114 350.1.13.10 4.2.7.2.686 [id number] [facility] 2019-07-19 00:00:00 2019-07-19 00:00:00 Refill [facility] 1.2840.114 350.1.13.10 4.2.7.2.686 [id number] [facility] 2019-07-18 00:00:00 2019-07-18 00:00:00 [facility] 1.2840.114 350.1.13.10 4.2.7.2.686 [id number] 092 [id number] [facility] 2019-07-11 00:00:00 2019-07-11 00:00:00 Dougie Burgess [facility] Office Building One 1.284.114 350.1.13.10 4.2.7.2.686 [id number] 044 [id number] [facility] 2019-06-13 00:00:00 2019-06-13 00:00:00 Telephone Jelani Cordon [facility] Building 1.2840.114 350.1.13.10 4.2.7.2.686 [id number] 092 [id number] [facility] 2019-05-23 14:20:22 2019-05-23 15:03:09 Office Visit Jelani Cordon [facility] Building 1.2840.114 350.1.13.10 4.2.7.2.686 [id number] [facility] 2019-05-19 13:41:15 2019-05-19 23:59:00 Outpatient R JELANI CORDON JELANI [facility] [id number] [facility] 2019-05-19 13:41:00 2019-05-19 23:59:00 Hospital Encounter Jelani Cordon [facility] 1.2840.114 350.1.13.10 4.2.7.2.686 [id number] [facility] 2019-05-10 13:35:57 2019-05-10 14:47:10 [facility] 1.2.840.114 350.1.13.10 4.2.7.2.686 [id number] 092 [id number] [facility] 2019-05-10 00:00:00 2019-05-10 00:00:00 Orders Only Doctor Unassigned, [place] [facility] 1.2.840.114 350.1.13.10 4.2.7.2.686 [id number] [id number] [facility] 2019-04-19 00:00:00 2019-04-19 00:00:00 Orders Only Doctor Unassigned, [place] [facility] 1.2.840.114 350.1.13.10 4.2.7.2.686 [id number] [id number] [facility] 2016-02-26 03:16:00 2016-02-26 03:16:00 Outpatient Raju_P [facility] [id number] 1214 [facility] Results Test Description Test Time Test [...] No suspicious focal osseous lesions are seen. [facility] CT ABDOMEN PELVIS W CONTRAST 05:27:07 Exam: [...] trochanter of the femur. Fat-containing umbilical hernia. [facility] ([id number])2023-12-31 03:56:36* Test Item Value Reference Range Interpretation Comme nts NA (test code = 4292270958) 134 mmol/L 135-145 L K (test code = 7067452066) 4.0 mmol/L 3.5-5.0 CL (test code = 7546394045) 106 mmol/L 98-108 CO2 TOTAL (test code = 1236178487) 21 mmol/L 23-31 L AGAP (test code = 6515075490) 7 2-16 BUN (test code = 3412627940) 40 mg/dL 7-23 H GLUCOSE (test code = 3150215824) 148 mg/dL 70-110 H CREATININE (test code = 2160-0) 0.60 mg/dL 0.60-1.25 TOTAL BILI (test code = 3481652983) 0.3 mg/dL 0.1-1.1 CALCIUM (test code = 3077242862) 9.0 mg/dL 8.6-10.6 T PROTEIN (test code = 1368102856) 7.0 g/dL 6.3-8.2 ALBUMIN (test code = 1814379701) 3.8 g/dL 3.5-5.0 ALK PHOS (test code = 1579173755) 85 U/L 34-122 ALTv (test code = 1742-6) 18 U/L 5-50 AST(SGOT) (test code = 2104236826) 24 U/L 13-40 eGFR (test code = 09671-7) 98.8 mL/min/1.73m2 CKD-EPI eGFR (2020). Assuming creatinine has been stable day-to-day for at least three months, the eGFR indicates Category G1 (>= 90 mL/min/1.73 m2) Lab Interpretation (test code = 81025-5) [facility] Vxyp3956-02-63 03:42:41* Test Item Value Reference Range Interpretation [...] 32.1 g/dL 31.2-35.0 RDW-SD (test code = 99706-1) 50.2 fL 38.5-51.6 RDW-CV (test code = 788-0) 15.3 % 12.1-15.4 PLT (test code = 777-3) 210 150-328 MPV (test code = 16220-4) 8.8 fL 9.8-13.0 L NRBC/100 WBC (test code = 3860207310) 0.0 0.0-10.0 NRBC x10^3 (test code = 0577819830) See_Comment [Automated messa ge] The system which generated this result transmitted reference range: 10*3/?L. The reference range was not used to interpret this result as normal/abnormal. GRAN MAT (NEUT) % (test code = 770-8) 66.5 % IMM GRAN % (test code = 6809788073) 0.50 % LYMPH % (test code = 736-9) 21.9 % MONO % (test code = 5905-5) 8.5 % EOS % (test code = 713-8) 2.3 % BASO % (test code = 706-2) 0.3 % GRAN MAT x10^3(ANC) (test code = 2989222006) 3.96 10*3/uL 1.99-6.95 IMM GRAN x10^3 (test code = 3780006768) 0.03 10*3/uL 0.00-0.06 LYMPH x10^3 (test code = 731-0) 1.31 10*3/uL 1.09-3.23 MONO x10^3 (test code = 742-7) 0.51 10*3/uL 0.36-1.02 EOS x10^3 (test code = 711-2) 0.14 10*3/uL 0.06-0.53 BASO x10^3 (test code = 704-7) 0.01-0.09 Lab Interpretation (test code = 03252-4) [facility][id number] 22:21:33* Test Item Value Reference Range Interpretation Comme nts NA (test code = 1829096829) 140 mmol/L 135-145 K (test code = 4864852273) 4.5 mmol/L 3.5-5.0 CL (test code = 8767354188) 105 mmol/L 98-108 CO2 TOTAL (test code = 3769056292) 29 mmol/L 23-31 AGAP (test code = 0673241443) 6 2-16 BUN (test code = 3174451444) 30 mg/dL 7-23 H GLUCOSE (test code = 2655016994) 90 mg/dL 70-110 CREATININE (test code = 9288097985) 0.61 mg/dL 0.60-1.25 TOTAL BILI (test code = 9792837627) 0.5 mg/dL 0.1-1.1 CALCIUM (test code = 7556240848) 9.4 mg/dL 8.6-10.6 T PROTEIN (test code = 2395823277) 6.8 g/dL 6.3-8.2 ALBUMIN (test code = 7985523367) 3.5 g/dL 3.5-5.0 ALK PHOS (test code = 3731161034) 65 U/L 34-122 ALTv (test code = 1742-6) 16 U/L 5-50 AST(SGOT) (test code = 4459757949) 31 U/L 13-40 eGFR (test code = 99968-4) 98.3 mL/min/1.73m2 CKD-EPI eGFR (2020). Assuming creatinine has been stable day-to-day for at least three months, the eGFR indicates Category G1 (>= 90 mL/min/1.73 m2) Lab Interpretation (test code = 99135-3) Abnormal [facility] WITH [id number] 21:58:52* Test Item Value Reference Range Interpretation Comme nts WBC (test code = 6690-2) 6.24 See_Comment [Automated [employer]] The system which generated this result transmitted reference range: 4.20 - 10.70 10*3/?L. The reference range was not used to interpret this result as normal/abnormal. RBC (test code = 789-8) 4.28 See_Comment [Automated [employer]] The system which generated this result transmitted [...] 33.2 g/dL 31.2-35.0 RDW-SD (test code = 29056-7) 48.7 fL 38.5-51.6 RDW-CV (test code = 788-0) 14.7 % 12.1-15.4 PLT (test code = 777-3) 209 See_Comment [Automated [employer]] The system which generated this result transmitted reference range: 150 - 328 10*3/?L. The reference range was not used to interpret this result as normal/abnormal. MPV (test code = 93557-0) 8.6 fL 9.8-13.0 L NRBC/100 WBC (test code = 5186365675) 0.0 See_Comment [Automated [employer]] The system which generated this result transmitted reference range: 0.0 - 10.0 /100 WBCs. The reference range was not used to interpret this result as normal/abnormal. NRBC x10^3 (test code = 7243090626) See_Comment [Automated [employer]] The system which generated this result transmitted reference range: 10*3/?L. The reference range was not used to interpret this result as normal/abnormal. GRAN MAT (NEUT) % (test code = 770-8) 66.3 % IMM GRAN % (test code = 0750771971) 0.30 % LYMPH % (test code = 736-9) 21.3 % MONO % (test code = 5905-5) 8.8 % EOS % (test code = 713-8) 3.0 % BASO % (test code = 706-2) 0.3 % GRAN MAT x10^3(ANC) (test code = 0762392190) 4.13 10*3/uL 1.99-6.95 IMM GRAN x10^3 (test code = 1668792236) 0.00-0.06 LYMPH x10^3 (test code = 731-0) 1.33 10*3/uL 1.09-3.23 MONO x10^3 (test code = 742-7) 0.55 10*3/uL 0.36-1.02 EOS x10^3 (test code = 711-2) 0.19 10*3/uL 0.06-0.53 BASO x10^3 (test code = 704-7) 0.01-0.09 Lab Interpretation (test code = 62718-6) Abnormal [facility] METABOLIC PANEL (NA, K, CL, CO2, GLUCOSE, BUN, CREATININE, CA)2023-02-24 22:19:20* Test Item Value Reference Range Interpretation Comme nts NA (test code = 1812092715) 137 mmol/L 135-145 K (test code = 5677762065) 3.8 mmol/L 3.5-5.0 CL (test code = 8131201036) 106 mmol/L 98-108 CO2 TOTAL (test code = 3884356865) 24 mmol/L 23-31 AGAP (test code = 8517312973) 7 2-16 BUN (test code = 2282271228) 25 mg/dL 7-23 H GLUCOSE (test code = 8349983108) 109 mg/dL 70-110 CREATININE (test code = 0425609943) 0.56 mg/dL 0.60-1.25 L CALCIUM (test code = 2449986665) 8.8 mg/dL 8.6-10.6 eGFR (test code = 30287-8) 101.5 mL/min/1.73m2 CKD-EPI eGFR (2020). Assuming creatinine has been stable day-to-day for at least three months, the eGFR indicates Category G1 (>= 90 mL/min/1.73 m2) Lab Interpretation (test code = 19719-8) Abnormal [facility] METABOLIC PANEL (NA, K, CL, CO2, GLUCOSE, BUN, CREATININE, CA)2023-02-05 10:07:11* Test Item Value Reference Range Interpretation Comme nts NA (test code = 5631468746) 141 mmol/L 135-145 K (test code = 2647586690) 3.9 mmol/L 3.5-5.0 CL (test code = 8890559138) 110 mmol/L 98-108 H CO2 TOTAL (test code = 8341601045) 24 mmol/L 23-31 AGAP (test code = 6189442386) 7 2-16 BUN (test code = 3934626448) 26 mg/dL 7-23 H GLUCOSE (test code = 5452996968) 88 mg/dL 70-110 CREATININE (test code = 6850393470) 0.62 mg/dL 0.60-1.25 CALCIUM (test code = 2990619821) 8.5 mg/dL 8.6-10.6 L eGFR (test code = 31853-9) 98.4 mL/min/1.73m2 CKD-EPI eGFR (2020). Assuming creatinine has been stable day-to-day for at least three months, the eGFR indicates Category G1 (>= 90 mL/min/1.73 m2) Lab Interpretation (test code = 25137-5) Abnormal [facility] WITH [id number] 08:38:12* Test Item Value Reference Range Interpretation Comme nts WBC (test code = 6690-2) 7.22 See_Comment [Automated [employer]] The system which generated this result transmitted reference range: 4.20 - 10.70 10*3/?L. The reference range was not used to interpret this result as normal/abnormal. RBC (test code = 789-8) 3.64 See_Comment L [Automated [employer]] The system which generated this result transmitted [...] 32.0 g/dL 31.2-35.0 RDW-SD (test code = 39413-3) 50.4 fL 38.5-51.6 RDW-CV (test code = 788-0) 14.9 % 12.1-15.4 PLT (test code = 777-3) 171 See_Comment [Automated [employer]] The system which generated this result transmitted reference range: 150 - 328 10*3/?L. The reference range was not used to interpret this result as normal/abnormal. MPV (test code = 55622-7) 8.5 fL 9.8-13.0 L NRBC/100 WBC (test code = 4742510475) 0.0 See_Comment [Automated [employer]age] The system which generated this result transmitted reference range: 0.0 - 10.0 /100 WBCs. The reference range was not used to interpret this result as normal/abnormal. NRBC x10^3 (test code = 5260635516) See_Comment [Automated messa ge] The system which generated this result transmitted reference range: 10*3/?L. The reference range was not used to interpret this result as normal/abnormal. GRAN MAT (NEUT) % (test code = 770-8) 71.3 % IMM GRAN % (test code = 7002457826) 1.00 % LYMPH % (test code = 736-9) 19.3 % MONO % (test code = 5905-5) 6.9 % EOS % (test code = 713-8) 1.4 % BASO % (test code = 706-2) 0.1 % GRAN MAT x10^3(ANC) (test code = 3602446138) 5.15 10*3/uL 1.99-6.95 IMM GRAN x10^3 (test code = 1487651555) 0.07 10*3/uL 0.00-0.06 H LYMPH x10^3 (test code = 731-0) 1.39 10*3/uL 1.09-3.23 MONO x10^3 (test code = 742-7) 0.50 10*3/uL 0.36-1.02 EOS x10^3 (test code = 711-2) 0.10 10*3/uL 0.06-0.53 BASO x10^3 (test code = 704-7) 0.01-0.09 Lab Interpretation (test code = 73026-9) Abnormal [facility] METABOLIC PANEL (NA, K, CL, CO2, GLUCOSE, BUN, CREATININE, CA)2023-02-04 11:48:34* Test Item Value Reference Range Interpretation Comme nts NA (test code = 5115729117) 141 mmol/L 135-145 K (test code = 4382833573) 3.8 mmol/L 3.5-5.0 CL (test code = 2432237380) 109 mmol/L 98-108 H CO2 TOTAL (test code = 0710854175) 23 mmol/L 23-31 AGAP (test code = 7550302707) 9 2-16 BUN (test code = 0262145095) 27 mg/dL 7-23 H GLUCOSE (test code = 4222253795) 114 mg/dL 70-110 H CREATININE (test code = 8062362153) 0.65 mg/dL 0.60-1.25 CALCIUM (test code = 4505620675) 8.7 mg/dL 8.6-10.6 eGFR (test code = 28188-5) 97.0 mL/min/1.73m2 CKD-EPI eGFR (2020). Assuming creatinine has been stable day-to-day for at least three months, the eGFR indicates Category G1 (>= 90 mL/min/1.73 m2) Lab Interpretation (test code = 79571-9) Abnormal [facility] WITH [id number] 10:36:47* Test Item Value Reference Range Interpretation Comme nts WBC (test code = 6690-2) 9.11 See_Comment [Automated [employer]] The system which generated this result transmitted reference range: 4.20 - 10.70 10*3/?L. The reference range was not used to interpret this result as normal/abnormal. RBC (test code = 789-8) 3.59 See_Comment L [Automated [employer]] The system which generated this result transmitted [...] 32.1 g/dL 31.2-35.0 RDW-SD (test code = 16902-2) 50.7 fL 38.5-51.6 RDW-CV (test code = 788-0) 14.7 % 12.1-15.4 PLT (test code = 777-3) 192 See_Comment [Automated messa ge] The system which generated this result transmitted reference range: 150 - 328 10*3/?L. The reference range was not used to interpret this result as normal/abnormal. MPV (test code = 58298-0) 8.6 fL 9.8-13.0 L NRBC/100 WBC (test code = 1346054955) 0.0 See_Comment [Automated [employer]] The system which generated this result transmitted reference range: 0.0 - 10.0 /100 WBCs. The reference range was not used to interpret this result as normal/abnormal. NRBC x10^3 (test code = 2467864060) See_Comment [Automated messa ge] The system which generated this result transmitted reference range: 10*3/?L. The reference range was not used to interpret this result as normal/abnormal. GRAN MAT (NEUT) % (test code = 770-8) 80.5 % IMM GRAN % (test code = 1655453168) 0.70 % LYMPH % (test code = 736-9) 10.6 % MONO % (test code = 5905-5) 7.9 % EOS % (test code = 713-8) 0.1 % BASO % (test code = 706-2) 0.2 % GRAN MAT x10^3(ANC) (test code = 9504830229) 7.33 10*3/uL 1.99-6.95 H IMM GRAN x10^3 (test code = 6362061106) 0.06 10*3/uL 0.00-0.06 LYMPH x10^3 (test code = 731-0) 0.97 10*3/uL 1.09-3.23 L MONO x10^3 (test code = 742-7) 0.72 10*3/uL 0.36-1.02 EOS x10^3 (test code = 711-2) 0.06-0.53 L BASO x10^3 (test code = 704-7) 0.01-0.09 Lab Interpretation (test code = 82202-6) [facility]30* Test Item Value Reference Range Interpretation Comme nts Procalcitonin (test code = 5818144916) 0.06 ng/mL <=0.07 STEPHANIE (test code = [...] lung abscess/empyema. For further information please refer to:[email or web address] Lab Interpretation (test code = 04317-3) Normal [facility] with [id number] 12:23:54* Test Item Value Reference Range Interpretation Comme nts WBC (test code = 6690-2) 4.43 See_Comment [Automated [employer]] The system which generated this result transmitted reference range: 4.20 - 10.70 10*3/?L. The reference range was not used to interpret this result as normal/abnormal. RBC (test code = 789-8) 3.88 See_Comment L [Automated [employer]] The system which generated this result transmitted [...] 31.4 g/dL 31.2-35.0 RDW-SD (test code = 51577-8) 51.0 fL 38.5-51.6 RDW-CV (test code = 788-0) 14.6 % 12.1-15.4 PLT (test code = 777-3) 183 See_Comment [Automated messa ge] The system which generated this result transmitted reference range: 150 - 328 10*3/?L. The reference range was not used to interpret this result as normal/abnormal. MPV (test code = 62937-6) 8.5 fL 9.8-13.0 L NRBC/100 WBC (test code = 9405136055) 0.0 See_Comment [Automated me ssage] The system which generated this result transmitted reference range: 0.0 - 10.0 /100 WBCs. The reference range was not used to interpret this result as normal/abnormal. NRBC x10^3 (test code = 4092778319) See_Comment [Automated messa ge] The system which generated this result transmitted reference range: 10*3/?L. The reference range was not used to interpret this result as normal/abnormal. GRAN MAT (NEUT) % (test code = 770-8) 60.9 % IMM GRAN % (test code = 2254666446) 0.50 % LYMPH % (test code = 736-9) 18.1 % MONO % (test code = 5905-5) 20.3 % EOS % (test code = 713-8) 0.0 % BASO % (test code = 706-2) 0.2 % GRAN MAT x10^3(ANC) (test code = 2304245237) 2.70 10*3/uL 1.99-6.95 IMM GRAN x10^3 (test code = 0549812435) 0.00-0.06 LYMPH x10^3 (test code = 731-0) 0.80 10*3/uL 1.09-3.23 L MONO x10^3 (test code = 742-7) 0.90 10*3/uL 0.36-1.02 EOS x10^3 (test code = 711-2) 0.06-0.53 L BASO x10^3 (test code = 704-7) 0.01-0.09 Lab Interpretation (test code = 45417-3) Abnormal [facility] Metabolic Panel (NA, K, CL, CO2, GLUCOSE, BUN, CREATININE, CA)2023-02-03 10:51:24* Test Item Value Reference Range Interpretation Comme nts NA (test code = 5969400022) 140 mmol/L 135-145 K (test code = 0206861604) 4.0 mmol/L 3.5-5.0 CL (test code = 1178890293) 107 mmol/L 98-108 CO2 TOTAL (test code = 9557027282) 24 mmol/L 23-31 AGAP (test code = 3805733464) 9 2-16 BUN (test code = 3695515473) 24 mg/dL 7-23 H GLUCOSE (test code = 4277583376) 125 mg/dL 70-110 H CREATININE (test code = 4218729952) 0.69 mg/dL 0.60-1.25 CALCIUM (test code = 3623691778) 8.6 mg/dL 8.6-10.6 eGFR (test code = 95080-4) 95.3 mL/min/1.73m2 CKD-EPI eGFR (2020). Assuming creatinine has been stable day-to-day for at least three months, the eGFR indicates Category G1 (>= 90 mL/min/1.73 m2) Lab Interpretation (test code = 15310-7) Abnormal [facility]. METABOLIC PANEL (64840)2023-02-02 17:27:20* Test Item Value Reference Range Interpretation Comme nts NA (test code = 2293332801) 139 mmol/L 135-145 K (test code = 0355425540) 3.8 mmol/L 3.5-5.0 CL (test code = 9879533036) 106 mmol/L 98-108 CO2 TOTAL (test code = 2186268909) 24 mmol/L 23-31 AGAP (test code = 2829829703) 9 2-16 BUN (test code = 9431575103) 25 mg/dL 7-23 H GLUCOSE (test code = 1296093715) 112 mg/dL 70-110 H CREATININE (test code = 8797883713) 0.79 mg/dL 0.60-1.25 TOTAL BILI (test code = 7637558356) 0.3 mg/dL 0.1-1.1 CALCIUM (test code = 3055595725) 8.8 mg/dL 8.6-10.6 T PROTEIN (test code = 7856419137) 6.4 g/dL 6.3-8.2 ALBUMIN (test code = 2378276812) 3.2 g/dL 3.5-5.0 L ALK PHOS (test code = 5373593957) 65 U/L 34-122 ALTv (test code = 1742-6) 25 U/L 5-50 AST(SGOT) (test code = 3648995049) 30 U/L 13-40 eGFR (test code = 87934-5) 95.1 mL/min/1.73m2 STEPHANIE (test code = STEPHANIE) [...] imaging tests). Lab Interpretation (test code = 88626-3) Abnormal [facility] WITH [id number] 17:15:14* Test Item Value Reference Range Interpretation Comme nts WBC (test code = 6690-2) 4.49 See_Comment [Automated [employer]] The system which generated this result transmitted [...] 32.9 g/dL 31.2-35.0 RDW-SD (test code = 59438-3) 49.1 fL 38.5-51.6 RDW-CV (test code = 788-0) 14.6 % 12.1-15.4 PLT (test code = 777-3) 198 See_Comment [Automated messa ge] The system which generated this result transmitted reference range: 150 - 328 10*3/?L. The reference range was not used to interpret this result as normal/abnormal. MPV (test code = 67231-6) 8.4 fL 9.8-13.0 L NRBC/100 WBC (test code = 0005133133) 0.0 See_Comment [Automated [employer]] The system which generated this result transmitted reference range: 0.0 - 10.0 /100 WBCs. The reference range was not used to interpret this result as normal/abnormal. NRBC x10^3 (test code = 8542788381) See_Comment [Automated messa ge] The system which generated this result transmitted reference range: 10*3/?L. The reference range was not used to interpret this result as normal/abnormal. GRAN MAT (NEUT) % (test code = 770-8) 68.4 % IMM GRAN % (test code = 0623194534) 0.20 % LYMPH % (test code = 736-9) 11.8 % MONO % (test code = 5905-5) 19.4 % EOS % (test code = 713-8) 0.0 % BASO % (test code = 706-2) 0.2 % GRAN MAT x10^3(ANC) (test code = 6946936938) 3.07 10*3/uL 1.99-6.95 IMM GRAN x10^3 (test code = 5134802989) 0.00-0.06 LYMPH x10^3 (test code = 731-0) 0.53 10*3/uL 1.09-3.23 L MONO x10^3 (test code = 742-7) 0.87 10*3/uL 0.36-1.02 EOS x10^3 (test code = 711-2) 0.06-0.53 L BASO x10^3 (test code = 704-7) 0.01-0.09 Lab Interpretation (test code = 05493-5) [facility] [id number] 21:47:26* Test Item Value Reference Range Interpretation Comme nts LACTIC ACID (test code = 5482449333) 1.46 mmol/L 0.50-2.20 Lab Interpretation (test cod e = 86631-1) [facility] [id number] 21:42:21* Test Item Value Reference Range Interpretation Comme nts ESR (test code = 75468-1) 16 See_Comment H [Automated messa ge] The system which generated this result transmitted reference range: 0 - 10 mm/HR. The reference range was not used to interpret this result as normal/abnormal. Lab Interpretation (test code = 81999-9) [facility] (76736)2023-01-25 21:24:38* Test Item Value Reference Range Interpretation Comme nts NA (test code = 8968619400) 143 mmol/L 135-145 K (test code = 4962293424) 3.9 mmol/L 3.5-5.0 CL (test code = 3498329411) 105 mmol/L 98-108 CO2 TOTAL (test code = 2098789925) 29 mmol/L 23-31 AGAP (test code = 8026734181) 9 2-16 BUN (test code = 2839552505) 38 mg/dL 7-23 H GLUCOSE (test code = 3213904141) 100 mg/dL 70-110 CREATININE (test code = 7238690764) 0.81 mg/dL 0.60-1.25 TOTAL BILI (test code = 1994718526) 0.2 mg/dL 0.1-1.1 CALCIUM (test code = 2788314866) 9.5 mg/dL 8.6-10.6 T PROTEIN (test code = 3722474489) 6.8 g/dL 6.3-8.2 ALBUMIN (test code = 8366671418) 3.7 g/dL 3.5-5.0 ALK PHOS (test code = 9037924828) 81 U/L 34-122 ALTv (test code = 1742-6) 22 U/L 5-50 AST(SGOT) (test code = 6028146800) 26 U/L 13-40 eGFR (test code = 3156795736) 92.4 mL/min/1.73m2 STEPHANIE (test code = STEPHANIE) [...] imaging tests). Lab Interpretation (test code = 31524-1) Abnormal [facility] WITH [id number] 20:59:14* Test Item Value Reference Range Interpretation Comme nts WBC (test code = 6690-2) 7.29 See_Comment [Automated [employer]] The system which generated this result transmitted reference range: 4.20 - 10.70 10*3/?L. The reference range was not used to interpret this result as normal/abnormal. RBC (test code = 789-8) 4.52 See_Comment [Automated [employer]] The system which generated this result transmitted [...] 32.1 g/dL 31.2-35.0 RDW-SD (test code = 80443-5) 49.1 fL 38.5-51.6 RDW-CV (test code = 788-0) 14.2 % 12.1-15.4 PLT (test code = 777-3) 202 See_Comment [Automated [employer]] The system which generated this result transmitted reference range: 150 - 328 10*3/?L. The reference range was not used to interpret this result as normal/abnormal. MPV (test code = 59692-2) 8.8 fL 9.8-13.0 L NRBC/100 WBC (test code = 3618173571) 0.0 See_Comment [Automated [employer]] The system which generated this result transmitted reference range: 0.0 - 10.0 /100 WBCs. The reference range was not used to interpret this result as normal/abnormal. NRBC x10^3 (test code = 6166023132) See_Comment [Automated messa ge] The system which generated this result transmitted reference range: 10*3/?L. The reference range was not used to interpret this result as normal/abnormal. GRAN MAT (NEUT) % (test code = 770-8) 72.5 % IMM GRAN % (test code = 8021185775) 0.30 % LYMPH % (test code = 736-9) 15.4 % MONO % (test code = 5905-5) 8.9 % EOS % (test code = 713-8) 2.6 % BASO % (test code = 706-2) 0.3 % GRAN MAT x10^3(ANC) (test code = 7252758195) 5.29 10*3/uL 1.99-6.95 IMM GRAN x10^3 (test code = 0416519748) 0.00-0.06 LYMPH x10^3 (test code = 731-0) 1.12 10*3/uL 1.09-3.23 MONO x10^3 (test code = 742-7) 0.65 10*3/uL 0.36-1.02 EOS x10^3 (test code = 711-2) 0.19 10*3/uL 0.06-0.53 BASO x10^3 (test code = 704-7) 0.01-0.09 Lab Interpretation (test code = 17377-0) [facility] [id number] 20:35:20* Test Item Value Reference Range Interpretation Comme nts TROPONIN I (test code = 0951711867) 0.006 ng/mL <=0.034 STEPHANIE (test code = [...] of biotin. Lab Interpretation (test code = 02887-0) [facility] [id number] 20:33:03* Test Item Value Reference Range Interpretation Comme nts NT-proBNP (test code = 28808-8) 129 pg/mL <=125 STEPHANIE (test code = STEPHANIE) Result Indeterminate-Consid er causes of NT-proBNP elevation other than Heart failure such as acute coronary syndrome, pulmonary embolism, pulmonary hypertension, sepsis, stroke, and renal dysfunction. Lab Interpretation (test code = 05583-0) [facility] (13530)2023-01-20 20:23:37* Test Item Value Reference Range Interpretation Comme nts NA (test code = 4604272487) 142 mmol/L 135-145 K (test code = 7682467982) 4.8 mmol/L 3.5-5.0 CL (test code = 9633567908) 109 mmol/L 98-108 H CO2 TOTAL (test code = 3122108079) 26 mmol/L 23-31 AGAP (test code = 3989453000) 7 2-16 BUN (test code = 1485731670) 33 mg/dL 7-23 H GLUCOSE (test code = 0404884396) 123 mg/dL 70-110 H CREATININE (test code = 1378664000) 0.70 mg/dL 0.60-1.25 TOTAL BILI (test code = 5852116989) 0.5 mg/dL 0.1-1.1 CALCIUM (test code = 6587992163) 9.3 mg/dL 8.6-10.6 T PROTEIN (test code = 2508470506) 7.0 g/dL 6.3-8.2 ALBUMIN (test code = 4082753010) 3.8 g/dL 3.5-5.0 ALK PHOS (test code = 4365496067) 64 U/L 34-122 ALTv (test code = 1742-6) 22 U/L 5-50 AST(SGOT) (test code = 1993938303) 44 U/L 13-40 H eGFR (test code = 9320762356) 109.4 mL/min/1.73m2 STEPHANIE (test code = STEPHANIE) [...] imaging tests). Lab Interpretation (test code = 80950-8) [facility] 20:23:37* Test Item Value Reference Range Interpretation Comme nts MAGNESIUM (test code = 8363327586) 2.2 mg/dL 1.7-2.4 Lab Interpretation (test cod e = 71316-4) [facility] WITH [id number] 20:10:16* Test Item Value Reference Range Interpretation Comme nts WBC (test code = 6690-2) 7.96 See_Comment [Automated [employer]] The system which generated this result transmitted reference range: 4.20 - 10.70 10*3/?L. The reference range was not used to interpret this result as normal/abnormal. RBC (test code = 789-8) 4.60 See_Comment [Automated [employer]] The system which generated this result transmitted [...] 32.6 g/dL 31.2-35.0 RDW-SD (test code = 29659-0) 47.1 fL 38.5-51.6 RDW-CV (test code = 788-0) 14.1 % 12.1-15.4 PLT (test code = 777-3) 221 See_Comment [Automated messa ge] The system which generated this result transmitted reference range: 150 - 328 10*3/?L. The reference range was not used to interpret this result as normal/abnormal. MPV (test code = 71776-5) 8.9 fL 9.8-13.0 L NRBC/100 WBC (test code = 8379010893) 0.0 See_Comment [Automated [employer]] The system which generated this result transmitted reference range: 0.0 - 10.0 /100 WBCs. The reference range was not used to interpret this result as normal/abnormal. NRBC x10^3 (test code = 8578204438) See_Comment [Automated messa ge] The system which generated this result transmitted reference range: 10*3/?L. The reference range was not used to interpret this result as normal/abnormal. GRAN MAT (NEUT) % (test code = 770-8) 69.6 % IMM GRAN % (test code = 0373077902) 0.30 % LYMPH % (test code = 736-9) 18.3 % MONO % (test code = 5905-5) 10.2 % EOS % (test code = 713-8) 1.3 % BASO % (test code = 706-2) 0.3 % GRAN MAT x10^3(ANC) (test code = 8965573785) 5.55 10*3/uL 1.99-6.95 IMM GRAN x10^3 (test code = 9264039648) 0.00-0.06 LYMPH x10^3 (test code = 731-0) 1.46 10*3/uL 1.09-3.23 MONO x10^3 (test code = 742-7) 0.81 10*3/uL 0.36-1.02 EOS x10^3 (test code = 711-2) 0.10 10*3/uL 0.06-0.53 BASO x10^3 (test code = 704-7) 0.01-0.09 Lab Interpretation (test code = 49936-1) [facility] (03068)2022-11-29 23:35:53* Test Item Value Reference Range Interpretation Comme nts NA (test code = 7557755299) 137 mmol/L 135-145 K (test code = 5553877518) 4.4 mmol/L 3.5-5.0 CL (test code = 2091595910) 103 mmol/L 98-108 CO2 TOTAL (test code = 4435975713) 26 mmol/L 23-31 AGAP (test code = 5109522690) 8 2-16 BUN (test code = 7401157125) 30 mg/dL 7-23 H GLUCOSE (test code = 7235168445) 124 mg/dL 70-110 H CREATININE (test code = 1094685941) 0.69 mg/dL 0.60-1.25 TOTAL BILI (test code = 4065477716) 0.3 mg/dL 0.1-1.1 CALCIUM (test code = 0057305705) 9.3 mg/dL 8.6-10.6 T PROTEIN (test code = 0187821318) 6.5 g/dL 6.3-8.2 ALBUMIN (test code = 3663061418) 3.6 g/dL 3.5-5.0 ALK PHOS (test code = 6405989861) 78 U/L 34-122 ALTv (test code = 1742-6) 21 U/L 5-50 AST(SGOT) (test code = 0647644957) 25 U/L 13-40 eGFR (test code = 1257960211) 111.2 mL/min/1.73m2 STEPHANIE (test code = STEPHANIE) [...] imaging tests). Lab Interpretation (test code = 46388-7) Abnormal [facility] WITH [id number] 23:22:49* Test Item Value Reference Range Interpretation Comme nts WBC (test code = 6690-2) 5.98 See_Comment [[employer]] The system which generated this result transmitted reference range: 4.20 - 10.70 10*3/?L. The reference range was not used to interpret this result as normal/abnormal. RBC (test code = 789-8) 4.09 See_Comment L [Automated [employer]] The system which generated this result transmitted [...] 34.2 g/dL 31.2-35.0 RDW-SD (test code = 92060-7) 45.1 fL 38.5-51.6 RDW-CV (test code = 788-0) 13.9 % 12.1-15.4 PLT (test code = 777-3) 210 See_Comment [Automated [employer]] The system which generated this result transmitted reference range: 150 - 328 10*3/?L. The reference range was not used to interpret this result as normal/abnormal. MPV (test code = 78868-5) 8.4 fL 9.8-13.0 L NRBC/100 WBC (test code = 1208933337) 0.0 See_Comment [Automated [employer]] The system which generated this result transmitted reference range: 0.0 - 10.0 /100 WBCs. The reference range was not used to interpret this result as normal/abnormal. NRBC x10^3 (test code = 6170067520) See_Comment [Automated [employer]] The system which generated this result transmitted reference range: 10*3/?L. The reference range was not used to interpret this result as normal/abnormal. GRAN MAT (NEUT) % (test code = 770-8) 68.8 % IMM GRAN % (test code = 3027731940) 0.20 % LYMPH % (test code = 736-9) 18.6 % MONO % (test code = 5905-5) 8.7 % EOS % (test code = 713-8) 3.0 % BASO % (test code = 706-2) 0.7 % GRAN MAT x10^3(ANC) (test code = 3833789483) 4.12 10*3/uL 1.99-6.95 IMM GRAN x10^3 (test code = 4946566907) 0.00-0.06 LYMPH x10^3 (test code = 731-0) 1.11 10*3/uL 1.09-3.23 MONO x10^3 (test code = 742-7) 0.52 10*3/uL 0.36-1.02 EOS x10^3 (test code = 711-2) 0.18 10*3/uL 0.06-0.53 BASO x10^3 (test code = 704-7) 0.04 10*3/uL 0.01-0.09 Lab Interpretation (test code = 23720-6) [facility]01028[facility]20[facility]-26 21:19:14* Test Item Value Reference Range Interpretation Comme nts NA (test code = 5242671406) 135 mmol/L 135-145 K (test code = 5010980568) 4.1 mmol/L 3.5-5.0 CL (test code = 3710822365) 102 mmol/L 98-108 CO2 TOTAL (test code = 8031606434) 27 mmol/L 23-31 AGAP (test code = 7742345815) 6 2-16 BUN (test code = 2121651860) 23 mg/dL 7-23 GLUCOSE (test code = 1213141592) 97 mg/dL 70-110 CREATININE (test code = 8421256301) 0.54 mg/dL 0.60-1.25 L TOTAL BILI (test code = 3273074994) 0.4 mg/dL 0.1-1.1 CALCIUM (test code = 0521275744) 8.9 mg/dL 8.6-10.6 T PROTEIN (test code = 8386947409) 6.5 g/dL 6.3-8.2 ALBUMIN (test code = 2503442940) 3.6 g/dL 3.5-5.0 ALK PHOS (test code = 7054629861) 70 U/L 34-122 ALTv (test code = 1742-6) 20 U/L 5-50 AST(SGOT) (test code = 4580236552) 36 U/L 13-40 eGFR (test code = 0443040086) 147.5 mL/min/1.73m2 STEPHANIE (test code = STEPHANIE) [...] imaging tests). Lab Interpretation (test code = 69694-1) Abnormal [facility] WITH [id number] 20:32:47* Test Item Value Reference Range Interpretation Comme nts WBC (test code = 6690-2) 9.43 See_Comment [Automated [employer]] The system which generated this result transmitted reference range: 4.20 - 10.70 10*3/?L. The reference range was not used to interpret this result as normal/abnormal. RBC (test code = 789-8) 4.13 See_Comment L [Automated [employer]] The system which generated this result transmitted [...] 33.8 g/dL 31.2-35.0 RDW-SD (test code = 20365-7) 45.9 fL 38.5-51.6 RDW-CV (test code = 788-0) 14.0 % 12.1-15.4 PLT (test code = 777-3) 171 See_Comment [Automated messa ge] The system which generated this result transmitted reference range: 150 - 328 10*3/?L. The reference range was not used to interpret this result as normal/abnormal. MPV (test code = 37314-5) 8.5 fL 9.8-13.0 L NRBC/100 WBC (test code = 9928774280) 0.0 See_Comment [Automated [employer] ssage] The system which generated this result transmitted reference range: 0.0 - 10.0 /100 WBCs. The reference range was not used to interpret this result as normal/abnormal. NRBC x10^3 (test code = 2066428782) See_Comment [Automated [employer]] The system which generated this result transmitted reference range: 10*3/?L. The reference range was not used to interpret this result as normal/abnormal. GRAN MAT (NEUT) % (test code = 770-8) 79.4 % IMM GRAN % (test code = 4125637693) 0.20 % LYMPH % (test code = 736-9) 9.1 % MONO % (test code = 5905-5) 8.4 % EOS % (test code = 713-8) 2.7 % BASO % (test code = 706-2) 0.2 % GRAN MAT x10^3(ANC) (test code = 5054066785) 7.49 10*3/uL 1.99-6.95 H IMM GRAN x10^3 (test code = 6609972856) 0.00-0.06 LYMPH x10^3 (test code = 731-0) 0.86 10*3/uL 1.09-3.23 L MONO x10^3 (test code = 742-7) 0.79 10*3/uL 0.36-1.02 EOS x10^3 (test code = 711-2) 0.25 10*3/uL 0.06-0.53 BASO x10^3 (test code = 704-7) 0.01-0.09 Lab Interpretation (test code = 00435-1) Abnormal [facility] METABOLIC PANEL (NA, K, CL, CO2, GLUCOSE, BUN, CREATININE, CA)2022-10-30 09:42:32* Test Item Value Reference Range Interpretation Comme nts NA (test code = 1243958416) 135 mmol/L 135-145 K (test code = 2679997304) 4.3 mmol/L 3.5-5.0 CL (test code = 9440279305) 105 mmol/L 98-108 CO2 TOTAL (test code = 5072836916) 25 mmol/L 23-31 AGAP (test code = 2820640805) 5 2-16 BUN (test code = 8826522855) 12 mg/dL 7-23 GLUCOSE (test code = 7149843516) 104 mg/dL 70-110 CREATININE (test code = 7273728794) 0.59 mg/dL 0.60-1.25 L CALCIUM (test code = 5958192512) 8.8 mg/dL 8.6-10.6 eGFR (test code = 1778013611) 133.2 mL/min/1.73m2 STEPHANIE (test code = STEPHANIE) [...] imaging tests). Lab Interpretation (test code = 73336-0) [facility]* Test Item Value Reference Range Interpretation Comme nts MAGNESIUM (test code = 9328476752) 2.0 mg/dL 1.7-2.4 Lab Interpretation (test cod e = 86262-5) Normal [facility] WITH [id number] 09:34:52* Test Item Value Reference Range Interpretation Comme nts WBC (test code = 6690-2) 5.97 See_Comment [Automated [employer]] The system which generated this result transmitted reference range: 4.20 - 10.70 10*3/?L. The reference range was not used to interpret this result as normal/abnormal. RBC (test code = 789-8) 3.81 See_Comment L [Automated [employer]] The system which generated this result transmitted [...] 33.2 g/dL 31.2-35.0 RDW-SD (test code = 20203-1) 44.7 fL 38.5-51.6 RDW-CV (test code = 788-0) 13.5 % 12.1-15.4 PLT (test code = 777-3) 207 See_Comment [Automated messa ge] The system which generated this result transmitted reference range: 150 - 328 10*3/?L. The reference range was not used to interpret this result as normal/abnormal. MPV (test code = 55641-5) 8.4 fL 9.8-13.0 L NRBC/100 WBC (test code = 7330134061) 0.0 See_Comment [Automated [employer]] The system which generated this result transmitted reference range: 0.0 - 10.0 /100 WBCs. The reference range was not used to interpret this result as normal/abnormal. NRBC x10^3 (test code = 8924020740) See_Comment [Automated messa ge] The system which generated this result transmitted reference range: 10*3/?L. The reference range was not used to interpret this result as normal/abnormal. GRAN MAT (NEUT) % (test code = 770-8) 69.1 % IMM GRAN % (test code = 6747829748) 0.20 % LYMPH % (test code = 736-9) 17.3 % MONO % (test code = 5905-5) 9.7 % EOS % (test code = 713-8) 3.2 % BASO % (test code = 706-2) 0.5 % GRAN MAT x10^3(ANC) (test code = 7988432988) 4.13 10*3/uL 1.99-6.95 IMM GRAN x10^3 (test code = 2810535375) 0.00-0.06 LYMPH x10^3 (test code = 731-0) 1.03 10*3/uL 1.09-3.23 L MONO x10^3 (test code = 742-7) 0.58 10*3/uL 0.36-1.02 EOS x10^3 (test code = 711-2) 0.19 10*3/uL 0.06-0.53 BASO x10^3 (test code = 704-7) 0.03 10*3/uL 0.01-0.09 Lab Interpretation (test code = 76473-6) Abnormal [facility] GLUCOSE (AUTOMATED)2022-10-29 13:19:23* Test Item Value Reference Range Interpretation Comme [facility] POCT GLU (test code = 3467958209) 99 mg/dL 70-110 Lab Interpretation (test cod e = 14664-4) Normal [facility] METABOLIC PANEL (NA, K, CL, CO2, GLUCOSE, BUN, CREATININE, CA)2022-10-29 08:19:42* Test Item Value Reference Range Interpretation Comme [facility] NA (test code = 4778591933) 132 mmol/L 135-145 L K (test code = 3081092955) 4.8 mmol/L 3.5-5.0 CL (test code = 0772253408) 102 mmol/L 98-108 CO2 TOTAL (test code = 1200083637) 25 mmol/L 23-31 AGAP (test code = 8529352582) 5 2-16 BUN (test code = 7942703767) 18 mg/dL 7-23 GLUCOSE (test code = 0721597502) 109 mg/dL 70-110 CREATININE (test code = 5498270336) 0.60 mg/dL 0.60-1.25 CALCIUM (test code = 6205760188) 8.8 mg/dL 8.6-10.6 eGFR (test code = 6345261592) 130.6 mL/min/1.73m2 STEPHANIE (test code = STEPHANIE) [...] imaging tests). Lab Interpretation (test code = 17801-3) [facility] 08:19:42* Test Item Value Reference Range Interpretation Comme nts MAGNESIUM (test code = 6243364587) 1.9 mg/dL 1.7-2.4 Lab Interpretation (test cod e = 65920-4) Normal [facility] WITH [id number] 08:00:22* Test Item Value Reference Range Interpretation Comme nts WBC (test code = 6690-2) 8.45 See_Comment [Automated [employer]] The system which generated this result transmitted reference range: 4.20 - 10.70 10*3/?L. The reference range was not used to interpret this result as normal/abnormal. RBC (test code = 789-8) 3.98 See_Comment L [Automated [employer]] The system which generated this result transmitted [...] 33.8 g/dL 31.2-35.0 RDW-SD (test code = 55033-2) 44.5 fL 38.5-51.6 RDW-CV (test code = 788-0) 13.6 % 12.1-15.4 PLT (test code = 777-3) 195 See_Comment [Automated messa ge] The system which generated this result transmitted reference range: 150 - 328 10*3/?L. The reference range was not used to interpret this result as normal/abnormal. MPV (test code = 12409-4) 8.7 fL 9.8-13.0 L NRBC/100 WBC (test code = 8234614267) 0.0 See_Comment [Automated me ssage] The system which generated this result transmitted reference range: 0.0 - 10.0 /100 WBCs. The reference range was not used to interpret this result as normal/abnormal. NRBC x10^3 (test code = 2988642208) See_Comment [Automated messa ge] The system which generated this result transmitted reference range: 10*3/?L. The reference range was not used to interpret this result as normal/abnormal. GRAN MAT (NEUT) % (test code = 770-8) 75.3 % IMM GRAN % (test code = 8988035505) 0.20 % LYMPH % (test code = 736-9) 15.1 % MONO % (test code = 5905-5) 8.5 % EOS % (test code = 713-8) 0.7 % BASO % (test code = 706-2) 0.2 % GRAN MAT x10^3(ANC) (test code = 1249826797) 6.35 10*3/uL 1.99-6.95 IMM GRAN x10^3 (test code = 5143384229) 0.00-0.06 LYMPH x10^3 (test code = 731-0) 1.28 10*3/uL 1.09-3.23 MONO x10^3 (test code = 742-7) 0.72 10*3/uL 0.36-1.02 EOS x10^3 (test code = 711-2) 0.06 10*3/uL 0.06-0.53 BASO x10^3 (test code = 704-7) 0.01-0.09 Lab Interpretation (test code = 28420-5) Abnormal [facility] GLUCOSE (AUTOMATED)2022-10-29 02:05:51* Test Item Value Reference Range Interpretation Comme nts POCT GLU (test code = 0893721965) 162 mg/dL 70-110 H Lab Interpretation (test cod e = 93025-2) [facility] 21:27:56* Test Item Value Reference Range Interpretation Comme nts POCT GLU (test code = 6311793351) 104 mg/dL 70-110 Lab Interpretation (test cod e = 77531-5) [facility] 20:41:29* Test Item Value Reference Range Interpretation Comme nts Procalcitonin (test code = 6803854396) 0.12 ng/mL <=0.07 H STEPHANIE (test code [...] lung abscess/empyema. For further information please refer to:[email or web address] Lab Interpretation (test code = 74718-0) [facility] (NA, K, CL, CO2, GLUCOSE, BUN, CREATININE, CA)2022-10-28 17:04:09* Test Item Value Reference Range Interpretation Comme nts NA (test code = 8454244449) 133 mmol/L 135-145 L K (test code = 2867367608) 3.9 mmol/L 3.5-5.0 CL (test code = 8340349255) 103 mmol/L 98-108 CO2 TOTAL (test code = 5326408329) 26 mmol/L 23-31 AGAP (test code = 0340022535) 4 2-16 BUN (test code = 9362177766) 18 mg/dL 7-23 GLUCOSE (test code = 6583384154) 118 mg/dL 70-110 H CREATININE (test code = 9227175248) 0.59 mg/dL 0.60-1.25 L CALCIUM (test code = 2443207982) 8.5 mg/dL 8.6-10.6 L eGFR (test code = 7442264691) 133.2 mL/min/1.73m2 STEPHANIE (test code = STEPHANIE) [...] imaging tests). Lab Interpretation (test code = 48894-2) [facility]2022-[facility]-28 16:57:29* Test Item Value Reference Range Interpretation Comme [facility] POCT GLU (test code = 7970992003) 98 mg/dL 70-110 Lab Interpretation (test cod e = 63836-8) Normal [facility] WITH [id number] 16:01:20* Test Item Value Reference Range Interpretation Comme [facility] WBC (test code = 6690-2) 8.13 See_Comment [Automated [employer]] The system which generated this result transmitted [...] 33.9 g/dL 31.2-35.0 RDW-SD (test code = 32770-3) 44.5 fL 38.5-51.6 RDW-CV (test code = 788-0) 13.6 % 12.1-15.4 PLT (test code = 777-3) 166 See_Comment [Automated messa ge] The system which generated this result transmitted reference range: 150 - 328 10*3/?L. The reference range was not used to interpret this result as normal/abnormal. MPV (test code = 13182-0) 8.6 fL 9.8-13.0 L NRBC/100 WBC (test code = 4983915214) 0.0 See_Comment [Automated me ssage] The system which generated this result transmitted reference range: 0.0 - 10.0 /100 WBCs. The reference range was not used to interpret this result as normal/abnormal. NRBC x10^3 (test code = 3931197532) See_Comment [Automated messa ge] The system which generated this result transmitted reference range: 10*3/?L. The reference range was not used to interpret this result as normal/abnormal. GRAN MAT (NEUT) % (test code = 770-8) 77.6 % IMM GRAN % (test code = 5155277966) 0.20 % LYMPH % (test code = 736-9) 11.1 % MONO % (test code = 5905-5) 10.8 % EOS % (test code = 713-8) 0.2 % BASO % (test code = 706-2) 0.1 % GRAN MAT x10^3(ANC) (test code = 7841611409) 6.30 10*3/uL 1.99-6.95 IMM GRAN x10^3 (test code = 3508220711) 0.00-0.06 LYMPH x10^3 (test code = 731-0) 0.90 10*3/uL 1.09-3.23 L MONO x10^3 (test code = 742-7) 0.88 10*3/uL 0.36-1.02 EOS x10^3 (test code = 711-2) 0.06-0.53 L BASO x10^3 (test code = 704-7) 0.01-0.09 Lab Interpretation (test code = 89294-5) [facility] Whole [id number] 15:43:36* Test Item Value Reference Range Interpretation Comme nts LACTIC ACID (test code = 3194097327) 1.48 mmol/L 0.50-2.20 Lab Interpretation (test cod e = 93131-5) [facility]2022-[facility]-28 13:55:42* Test Item Value Reference Range Interpretation Comme nts POCT GLU (test code = 4812344951) 108 mg/dL 70-110 Lab Interpretation (test cod e = 51609-3) [facility]cosylated Hemoglobin (A1C)2022-10-28 13:35:21* Test Item Value Reference Range Interpretation Comme nts HGB A1C (test code = 4548-4) 5.4 % 4.0-5.7 STEPHANIE (test code = STEPHANIE) Reference RangesNormal: <5.7%Prediabetes: 5.7 - 6.4%Diabetes: > 6.5% Lab Interpretation (test code = 61210-7) [facility] 12:48:08* Test Item Value Reference Range Interpretation Comme nts MAGNESIUM (test code = 0638740930) 2.0 mg/dL 1.7-2.4 Lab Interpretation (test cod e = 46478-2) Normal [facility] [id number] 04:32:06* Test Item Value Reference Range Interpretation Comme nts TROPONIN I (test code = 4556150265) 0.029 ng/mL <=0.034 STEPHANIE (test code = [...] of biotin. Lab Interpretation (test code = 24131-0) Normal [facility]. METABOLIC PANEL (95273)2022-10-28 04:21:43* Test Item Value Reference Range Interpretation Comme nts NA (test code = 6656661831) 133 mmol/L 135-145 L K (test code = 7000768470) 4.2 mmol/L 3.5-5.0 CL (test code = 6237891957) 100 mmol/L 98-108 CO2 TOTAL (test code = 1770513966) 23 mmol/L 23-31 AGAP (test code = 4141279018) 10 2-16 BUN (test code = 3404685221) 24 mg/dL 7-23 H GLUCOSE (test code = 3907075666) 217 mg/dL 70-110 H CREATININE (test code = 7348125635) 0.79 mg/dL 0.60-1.25 TOTAL BILI (test code = 6878381123) 0.5 mg/dL 0.1-1.1 CALCIUM (test code = 1706791119) 8.6 mg/dL 8.6-10.6 T PROTEIN (test code = 4115242663) 6.6 g/dL 6.3-8.2 ALBUMIN (test code = 1341476598) 3.6 g/dL 3.5-5.0 ALK PHOS (test code = 8792008412) 76 U/L 34-122 ALTv (test code = 1742-6) 20 U/L 5-50 AST(SGOT) (test code = 6229987819) 31 U/L 13-40 eGFR (test code = 2908738199) 95.1 mL/min/1.73m2 STEPHANIE (test code = STEPHANIE) [...] imaging tests). Lab Interpretation (test code = 27077-8) Abnormal [facility] WITH [id number] 03:55:19* Test Item Value Reference Range Interpretation [...] 33.9 g/dL 31.2-35.0 RDW-SD (test code = 23031-4) 44.8 fL 38.5-51.6 RDW-CV (test code = 788-0) 13.6 % 12.1-15.4 PLT (test code = 777-3) 189 See_Comment [Automated message] The system which generated this result transmitted reference range: 150 - 328 10*3/?L. The reference range was not used to interpret this result as normal/abnormal. MPV (test code = 25659-1) 8.7 fL 9.8-13.0 L NRBC/100 WBC (test code = 7514192337) 0.0 See_Comment [Automated message] The system which generated this result transmitted reference range: 0.0 - 10.0 /100 WBCs. The reference range was not used to interpret this result as normal/abnormal. NRBC x10^3 (test code = 4045530411) See_Comment [Automated message] The system which generated this result transmitted reference range: 10*3/?L. The reference range was not used to interpret this result as normal/abnormal. GRAN MAT (NEUT) % (test code = 770-8) 83.5 % IMM GRAN % (test code = 2710177641) 0.60 % LYMPH % (test code = 736-9) 6.0 % MONO % (test code = 5905-5) 9.6 % EOS % (test code = 713-8) 0.1 % BASO % (test code = 706-2) 0.2 % GRAN MAT x10^3(ANC) (test code = 9523620590) 10.59 10*3/uL 1.99-6.95 H IMM GRAN x10^3 (test code = 1037070269) 0.08 10*3/uL 0.00-0.06 H LYMPH x10^3 (test code = 731-0) 0.76 10*3/uL 1.09-3.23 L MONO x10^3 (test code = 742-7) 1.21 10*3/uL 0.36-1.02 H EOS x10^3 (test code = 711-2) 0.06-0.53 L BASO x10^3 (test code = 704-7) 0.01-0.09 Lab Interpretation (test code = 29233-8) Abnormal [facility] CULTURE [id number] 03:02:22* Test Item Value Reference Range Interpretation Comme nts Blood Culture-Aerobic (test code = 05015-9) No organisms isolated No growth Previous preliminary [...] 2201 CDT Blood Culture-Anaerobic (test code = 20181-7) No organisms isolated No growth Previous preliminary [...] 2201 CDT Lab Interpretation (test code = 09295-9) Normal [facility] CULTURE [id number] 03:02:22* Test Item Value Reference Range Interpretation Comme nts Blood Culture-Aerobic (test code = 42621-5) No organisms isolated No growth Previous preliminary [...] 2201 CDT Blood Culture-Anaerobic (test code = 93704-9) No organisms isolated No growth Previous preliminary [...] 2201 CDT Lab Interpretation (test code = 18882-9) [facility] (48112)2022-07-21 03:19:43* Test Item Value Reference Range Interpretation Comme nts NA (test code = 1725975608) 137 mmol/L 135-145 K (test code = 0653785786) 4.6 mmol/L 3.5-5.0 CL (test code = 5241013899) 102 mmol/L 98-108 CO2 TOTAL (test code = 0559957117) 25 mmol/L 23-31 AGAP (test code = 5436930932) 10 2-16 BUN (test code = 1710908498) 16 mg/dL 7-23 GLUCOSE (test code = 6273584711) 147 mg/dL 70-110 H CREATININE (test code = 0284605752) 1.06 mg/dL 0.60-1.25 TOTAL BILI (test code = 1006743638) 0.4 mg/dL 0.1-1.1 CALCIUM (test code = 9821963334) 9.3 mg/dL 8.6-10.6 T PROTEIN (test code = 3717805259) 6.3 g/dL 6.3-8.2 ALBUMIN (test code = 8482364081) 3.7 g/dL 3.5-5.0 ALK PHOS (test code = 3523526503) 85 U/L 34-122 ALTv (test code = 1742-6) 19 U/L 5-50 AST(SGOT) (test code = 2674031196) 23 U/L 13-40 eGFR (test code = 1807468304) 67.7 mL/min/1.73m2 STEPHANIE (test code = STEPHANIE) [...] imaging tests). Lab Interpretation (test code = 77111-2) [facility] [id number] 03:10:02* Test Item Value Reference Range Interpretation Comme nts ESR (test code = 85053-0) 20 See_Comment H [Automated [employer]] The system which generated this result transmitted reference range: 0 - 10 mm/HR. The reference range was not used to interpret this result as normal/abnormal. Lab Interpretation (test code = 72484-7) Abnormal [facility] WITH [id number] 02:50:23* Test Item Value Reference Range Interpretation Comme nts WBC (test code = 6690-2) 8.04 See_Comment [Automated [employer]] The system which generated this result transmitted [...] 32.6 g/dL 31.2-35.0 RDW-SD (test code = 76305-9) 46.5 fL 38.5-51.6 RDW-CV (test code = 788-0) 13.5 % 12.1-15.4 PLT (test code = 777-3) 239 See_Comment [Automated messa ge] The system which generated this result transmitted reference range: 150 - 328 10*3/?L. The reference range was not used to interpret this result as normal/abnormal. MPV (test code = 40651-1) 8.6 fL 9.8-13.0 L NRBC/100 WBC (test code = 6340577924) 0.0 See_Comment [Automated [employer]] The system which generated this result transmitted reference range: 0.0 - 10.0 /100 WBCs. The reference range was not used to interpret this result as normal/abnormal. NRBC x10^3 (test code = 3521696238) See_Comment [Automated messa ge] The system which generated this result transmitted reference range: 10*3/?L. The reference range was not used to interpret this result as normal/abnormal. GRAN MAT (NEUT) % (test code = 770-8) 79.8 % IMM GRAN % (test code = 7214254409) 0.50 % LYMPH % (test code = 736-9) 11.8 % MONO % (test code = 5905-5) 6.8 % EOS % (test code = 713-8) 0.7 % BASO % (test code = 706-2) 0.4 % GRAN MAT x10^3(ANC) (test code = 2877835204) 6.41 10*3/uL 1.99-6.95 IMM GRAN x10^3 (test code = 9346748339) 0.04 10*3/uL 0.00-0.06 LYMPH x10^3 (test code = 731-0) 0.95 10*3/uL 1.09-3.23 L MONO x10^3 (test code = 742-7) 0.55 10*3/uL 0.36-1.02 EOS x10^3 (test code = 711-2) 0.06 10*3/uL 0.06-0.53 BASO x10^3 (test code = 704-7) 0.03 10*3/uL 0.01-0.09 Lab Interpretation (test code = 59797-5) [facility] [id number] 21:13:33* Test Item Value Reference Range Interpretation Comme nts ESR (test code = 52395-3) 11 See_Comment H [Automated messa ge] The system which generated this result transmitted reference range: 0 - 10 mm/HR. The reference range was not used to interpret this result as normal/abnormal. Lab Interpretation (test code = 13666-7) [facility] (51760)2022-07-18 20:55:16* Test Item Value Reference Range Interpretation Comme nts NA (test code = 2468417723) 135 mmol/L 135-145 K (test code = 5549317566) 4.7 mmol/L 3.5-5.0 CL (test code = 9674627715) 103 mmol/L 98-108 CO2 TOTAL (test code = 9035249971) 23 mmol/L 23-31 AGAP (test code = 8167411601) 9 2-16 BUN (test code = 5910223397) 15 mg/dL 7-23 GLUCOSE (test code = 4108774443) 89 mg/dL 70-110 CREATININE (test code = 9998083552) 0.71 mg/dL 0.60-1.25 TOTAL BILI (test code = 5245681409) 0.5 mg/dL 0.1-1.1 CALCIUM (test code = 7410435854) 8.9 mg/dL 8.6-10.6 T PROTEIN (test code = 6561049312) 6.1 g/dL 6.3-8.2 L ALBUMIN (test code = 7340816581) 3.5 g/dL 3.5-5.0 ALK PHOS (test code = 2867771357) 82 U/L 34-122 ALTv (test code = 1742-6) 18 U/L 5-50 AST(SGOT) (test code = 0896959227) 24 U/L 13-40 eGFR (test code = 5868243445) 107.6 mL/min/1.73m2 STEPHANIE (test code = STEPHANIE) [...] imaging tests). Lab Interpretation (test code = 45501-1) Abnormal [facility] WITH [id number] 20:37:13* Test Item Value Reference Range Interpretation Comme nts WBC (test code = 6690-2) 6.41 See_Comment [Automated [employer]] The system which generated this result [...] 32.9 g/dL 31.2-35.0 RDW-SD (test code = 25597-5) 45.5 fL 38.5-51.6 RDW-CV (test code = 788-0) 13.4 % 12.1-15.4 PLT (test code = 777-3) 246 See_Comment [Automated [employer]] The system which generated this result transmitted reference range: 150 - 328 10*3/?L. The reference range was not used to interpret this result as normal/abnormal. MPV (test code = 68042-4) 8.7 fL 9.8-13.0 L IPF % (test code = 2380497530) 0.8 % 1.2-10.7 L Platelet count measured by fluorescence method. NRBC/100 WBC (test code = 9166456944) 0.0 See_Comment [Automated [employer]age] The system which generated this result transmitted reference range: 0.0 - 10.0 /100 WBCs. The reference range was not used to interpret this result as normal/abnormal. NRBC x10^3 (test code = 9213454235) See_Comment [Automated [employer]] The system which generated this result transmitted reference range: 10*3/?L. The reference range was not used to interpret this result as normal/abnormal. GRAN MAT (NEUT) % (test code = 770-8) 70.9 % IMM GRAN % (test code = 2630401666) 0.30 % LYMPH % (test code = 736-9) 18.3 % MONO % (test code = 5905-5) 8.1 % EOS % (test code = 713-8) 1.9 % BASO % (test code = 706-2) 0.5 % GRAN MAT x10^3(ANC) (test code = 9138464282) 4.55 10*3/uL 1.99-6.95 IMM GRAN x10^3 (test code = 4374965438) 0.00-0.06 LYMPH x10^3 (test code = 731-0) 1.17 10*3/uL 1.09-3.23 MONO x10^3 (test code = 742-7) 0.52 10*3/uL 0.36-1.02 EOS x10^3 (test code = 711-2) 0.12 10*3/uL 0.06-0.53 BASO x10^3 (test code = 704-7) 0.03 10*3/uL 0.01-0.09 Lab Interpretation (test code = 69885-8) [id number]:59[facility]* Test Item Value Reference Range Interpretation Comme nts TROPONIN I (test code = 5267783721) 0.008 ng/mL <=0.034 STEPHANIE (test code = [...] of biotin. Lab Interpretation (test code = 06568-1) [facility] 17:48:33* Test Item Value Reference Range Interpretation Comme nts MAGNESIUM (test code = 0315203001) 1.9 mg/dL 1.7-2.4 Lab Interpretation (test cod e = 53527-7) [facility] (31508)2022-06-10 17:48:14* Test Item Value Reference Range Interpretation Comme nts NA (test code = 3394764196) 135 mmol/L 135-145 K (test code = 9903824683) 4.2 mmol/L 3.5-5.0 CL (test code = 6127416830) 104 mmol/L 98-108 CO2 TOTAL (test code = 6598763082) 24 mmol/L 23-31 AGAP (test code = 8917646931) 7 2-16 BUN (test code = 3010596763) 13 mg/dL 7-23 GLUCOSE (test code = 1303802281) 129 mg/dL 70-110 H CREATININE (test code = 6901631287) 0.67 mg/dL 0.60-1.25 TOTAL BILI (test code = 9514053490) 0.6 mg/dL 0.1-1.1 CALCIUM (test code = 3491599563) 8.5 mg/dL 8.6-10.6 L T PROTEIN (test code = 2062893989) 6.0 g/dL 6.3-8.2 L ALBUMIN (test code = 3097229118) 3.2 g/dL 3.5-5.0 L ALK PHOS (test code = 8229076972) 82 U/L 34-122 ALTv (test code = 1742-6) 28 U/L 5-50 AST(SGOT) (test code = 0379553312) 71 U/L 13-40 H eGFR (test code = 9378052621) 115.0 mL/min/1.73m2 STEPHANIE (test code = STEPHANIE) [...] imaging tests). Lab Interpretation (test code = 05691-5) [facility]* Test Item Value Reference Range Interpretation Comme nts LIPASE (test code = 8014840735) 124 U/L 0-220 Lab Interpretation (test cod e = 07952-9) [facility] [id number] 17:34:30* Test Item Value Reference Range Interpretation Comme nts WBC (test code = 6690-2) 8.77 See_Comment [Automated [employer]] The system which generated this result transmitted reference range: 4.20 - 10.70 10*3/?L. The reference range was not used to interpret this result as normal/abnormal. RBC (test code = 789-8) 4.06 See_Comment L [Automated [employer]] The system which generated this result transmitted [...] 34.1 g/dL 31.2-35.0 RDW-SD (test code = 29375-5) 42.5 fL 38.5-51.6 RDW-CV (test code = 788-0) 12.8 % 12.1-15.4 PLT (test code = 777-3) 297 See_Comment [Automated [employer]] The system which generated this result transmitted reference range: 150 - 328 10*3/?L. The reference range was not used to interpret this result as normal/abnormal. MPV (test code = 59648-0) 8.1 fL 9.8-13.0 L NRBC/100 WBC (test code = 1166324159) 0.0 See_Comment [Automated [employer]] The system which generated this result transmitted reference range: 0.0 - 10.0 /100 WBCs. The reference range was not used to interpret this result as normal/abnormal. NRBC x10^3 (test code = 4668157474) See_Comment [Automated [employer]] The system which generated this result transmitted reference range: 10*3/?L. The reference range was not used to interpret this result as normal/abnormal. GRAN MAT (NEUT) % (test code = 770-8) 81.2 % IMM GRAN % (test code = 6681706952) 0.20 % LYMPH % (test code = 736-9) 9.5 % MONO % (test code = 5905-5) 7.8 % EOS % (test code = 713-8) 1.0 % BASO % (test code = 706-2) 0.3 % GRAN MAT x10^3(ANC) (test code = 3608711974) 7.12 10*3/uL 1.99-6.95 H IMM GRAN x10^3 (test code = 9331476356) 0.00-0.06 LYMPH x10^3 (test code = 731-0) 0.83 10*3/uL 1.09-3.23 L MONO x10^3 (test code = 742-7) 0.68 10*3/uL 0.36-1.02 EOS x10^3 (test code = 711-2) 0.09 10*3/uL 0.06-0.53 BASO x10^3 (test code = 704-7) 0.03 10*3/uL 0.01-0.09 Lab Interpretation (test code = 12507-2) [facility] METABOLIC PANEL (95375)2022-05-27 00:29:45* Test Item Value Reference Range Interpretation Comme nts NA (test code = 9512524838) 132 mmol/L 135-145 L K (test code = 3712477555) 4.4 mmol/L 3.5-5.0 CL (test code = 5481404620) 101 mmol/L 98-108 CO2 TOTAL (test code = 2809160805) 23 mmol/L 23-31 AGAP (test code = 0322180228) 8 2-16 BUN (test code = 3368450260) 25 mg/dL 7-23 H GLUCOSE (test code = 1569822202) 173 mg/dL 70-110 H CREATININE (test code = 6308580367) 0.71 mg/dL 0.60-1.25 TOTAL BILI (test code = 6385821832) 0.8 mg/dL 0.1-1.1 CALCIUM (test code = 5945329840) 8.7 mg/dL 8.6-10.6 T PROTEIN (test code = 6411018267) 6.4 g/dL 6.3-8.2 ALBUMIN (test code = 8977884293) 3.7 g/dL 3.5-5.0 ALK PHOS (test code = 1761540285) 79 U/L 34-122 ALTv (test code = 1742-6) 26 U/L 5-50 AST(SGOT) (test code = 3754509388) 36 U/L 13-40 eGFR (test code = 5191426837) 107.6 mL/min/1.73m2 STEPHANIE (test code = STEPHANIE) [...] imaging tests). Lab Interpretation (test code = 93494-2) Abnormal [facility] WITH [id number] 23:12:37* Test Item Value Reference Range Interpretation [...] 34.0 g/dL 31.2-35.0 RDW-SD (test code = 31732-5) 46.2 fL 38.5-51.6 RDW-CV (test code = 788-0) 13.5 % 12.1-15.4 PLT (test code = 777-3) 263 See_Comment [Automated message] The system which generated this result transmitted reference range: 150 - 328 10*3/?L. The reference range was not used to interpret this result as normal/abnormal. MPV (test code = 23917-7) 8.4 fL 9.8-13.0 L NRBC/100 WBC (test code = 1810854078) 0.0 See_Comment [Automated message] The system which generated this result transmitted reference range: 0.0 - 10.0 /100 WBCs. The reference range was not used to interpret this result as normal/abnormal. NRBC x10^3 (test code = 9668930130) See_Comment [Automated message] The system which generated this result transmitted reference range: 10*3/?L. The reference range was not used to interpret this result as normal/abnormal. GRAN MAT (NEUT) % (test code = 770-8) 89.4 % IMM GRAN % (test code = 7656157667) 0.30 % LYMPH % (test code = 736-9) 2.5 % MONO % (test code = 5905-5) 7.6 % EOS % (test code = 713-8) 0.0 % BASO % (test code = 706-2) 0.2 % GRAN MAT x10^3(ANC) (test code = 5740787837) 10.17 10*3/uL 1.99-6.95 H IMM GRAN x10^3 (test code = 0835902451) 0.03 10*3/uL 0.00-0.06 LYMPH x10^3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
[2024-06-15 12:34] LABS: Absolute Eosinophils 0.1 K/uL (0-0.5); Absolute Monocytes 0.6 K/uL (0.1-1.3); Absolute Neutrophil 5.3 K/uL (1.8-8.0); Basophils % 0.4 % (0-1.3); Eosinophils % 1.4 % (0-4.4); Hematocrit 34.1 % (39.6-49.0); Hemoglobin 11.5 g/dL (13.6-17.9); Lymphocytes % 14.1 % (15.3-44.8); MCH 27.8 pg (27.0-35.0); MCHC 33.7 g/dL (32.0-36.0); MCV 82.4 fL (80-100); Monocytes % 8.4 % (3.3-12.3); Neutrophils % 75.7 % (41.7-73.7); Nucleated Red Blood Cells % 0.2 % (0-0); Platelets 223 thou/uL (152-406); RBC Red Blood Cell Count 4.14 M/uL (4.33-5.43); Red Cell Distribution Width 16.3 % (12.1-15.2)
--- NOTE | 2024-06-15 12:44 | RAD REPORT ---
EXAMINATION: ONE VIEW CHEST XR CLINICAL INDICATION: Male, 79 years old.,confusion TECHNIQUE: Frontal chest projection is submitted. Examination is limited by patient positioning and t echnique. COMPARISON: 03/15/2024 FINDINGS: The lungs are well inflated and clear. No pneumothorax or sizable effusion. The heart is normal in s ize. Mediastinal contours are unremarkable. IMPRESSION: No acute intrathoracic abnormalities.
[2024-06-15 13:37] LABS: Albumin 2.6 g/dL (3.4-5.0); Albumin/Globulin Ratio 0.7 (1.1-1.8); Bilirubin Total 0.3 mg/dL (0.2-1.0); Globulin 3.9 g/dL (2.3-3.5); Protein, Total 6.5 g/dL (6.4-8.2); Troponin High Sensitivity 5.9 pg/mL (<58.9)
[2024-06-15 13:53] LABS: Specific Gravity 1.026 (1.005-1.030); Urine Bilirubin NEGATIVE (Negative); Urine Blood Negative (Negative); Urine Clarity Clear (Clear); Urine Color Light-Yellow (Yellow); Urine Glucose NEGATIVE (Negative); Urine Ketones NEGATIVE (Negative); Urine Microscopic Reflex YN NO UMIC; Urine Nitrite NEGATIVE (Negative); Urine Protein NEGATIVE (Negative); Urine Urobilinogen Normal (Normal)
[2024-06-15 13:55] LABS: PT Prothrombin Time 15.4 SECONDS (10-13.0); PTT, Activated Partial Thromb 26.1 SECONDS (27.2-37.4); Protime INR 1.37
--- NOTE | 2024-06-15 16:39 | RAD REPORT ---
EXAM: CT Head Brain Wo Cont HISTORY: AMS COMPARISON: 12/28/2023 TECHNIQUE: Multiple contiguous axial images were obtained for a CT of the brain without contrast. Sag ittal and coronal reformats were performed. One or more of the following dose reduction techniques were used: Automated exposure control, adjus tment of the mA and kV according to patient size, and iterative reconstruction. Unless otherwise specified, incidental findings do not require dedicated imaging follow-up. FINDINGS: No evidence of obstructing hydrocephalus, intracranial hemorrhage, or extra-axial fluid collection. Advanced brain atrophy, with ventricular prominence somewhat out of proportion to sulci prominence, stable. Moderate periventricular and deep white matter chronic microvascular ischemic changes, also stable. The calvarium is intact. The visualized paranasal sinuses and mastoid air cells are essentially clear . IMPRESSION: No evidence of acute intracranial abnormality. Stable ventricular prominence, markedly out of proportion to sulcal prominence, which may relate to c entral predominant volume loss versus sequelae of normal pressure hydrocephalus. Please correlate clinically
--- NOTE | 2024-06-15 16:51 | RAD REPORT ---
EXAMINATION: CT Abdomen Pelvis W Contrast CLINICAL INDICATION: Male, 79 years old. ams, recent sbo TECHNIQUE: CT abdomen and pelvis was performed, after the administration of IV contrast, [facility]. Axial, sagittal and coronal reconstructions were obtained. One or more of the following dose reduction techniques were used: Automated exposure control, adjustment of the mA and k V according to patient size, and iterative reconstruction. Unless otherwise specified, incidental findings do not require dedicated imaging follow-up. COMPARISON: 03/15/2024. FINDINGS: LOWER CHEST: The visualized lung bases are clear. LIVER: Normal in size and contour. No focal lesion. BILIARY SYSTEM: No suspicious abnormalities. SPLEEN: Normal size. No focal lesion. PANCREAS: No mass, ductal dilation, or kiesha-pancreatic fluid. ADRENALS: Normal; no mass. KIDNEYS: Normal size and contour. No hydronephrosis. URINARY BLADDER: Unremarkable. GASTROINTESTINAL TRACT: Moderate sized sliding hiatal hernia. No evidence of free air, significant in tra-abdominal free fluid, bowel obstruction or abscess. Colonic diverticulosis without evidence of acute diverticulitis. APPENDIX: Normal appendix. LYMPH NODES: No lymphadenopathy. MUSCULOSKELETAL: No acute or suspicious osseous abnormality. ADDITIONAL FINDINGS: Umbilical hernia containing fat.. IMPRESSION: No acute or concerning abnormalities seen in the abdomen or pelvis. Specifically, no findings to sugg est bowel obstruction. Simple findings including a moderate-sized hiatal hernia, colonic diverticulosis without evidence of acute colitis, and the fat-containing umbilical hernia.
--- NOTE | 2024-06-15 17:04 | EDPHYS ---
Physician Documentation [facility] Name: Chauncey Dunn Age: 79 yrs Sex: Male : 1945 Arrival Date: 06/15/2024 Time: 11:51 Bed 3 Private MD: ED Physician Wolf Okeefe HPI: 06/15 14:08 This 79 yrs old Male presents to ER via EMS with complaints of HYPOTENSION. rt 14:09 Patient presents to the ED with reported altered mental status, reported hypotension rt with a systolic in the 80s. EMS was called, systolic was found to be in the low 100s. No further history could be obtained due to patient with advanced dementia, symptoms are moderate in severity, no other aggravating or alleviating factors.. Historical: - Allergies: 12:01 Bactrim; cm10 - PMHx: 12:01 Alzheimer's disease; Glaucoma; Hypertensive disorder; Cerebrovascular accident; cm10 Dementia; - PSHx: 12:01 back; cataract; cm10 - Immunization history:: Adult Immunizations up to date. - Infectious Disease History:: Denies. - Social history:: Smoking status: unknown. - Family history:: not pertinent. ROS: 14:09 Unable to obtain ROS due to baseline dementia, rt Exam: 14:12 Chest/axilla: Normal chest wall appearance and motion. Nontender with no deformity. rt No lesions are appreciated. Cardiovascular: Regular rate and rhythm with a normal S1 and S2. No gallops, murmurs, or rubs. Normal PMI, no JVD. No pulse deficits. Respiratory: Lungs have equal breath sounds bilaterally, clear to auscultation and percussion. No rales, rhonchi or wheezes noted. No increased work of breathing, no retractions or nasal flaring. Abdomen/GI: Soft, non-tender, with normal bowel sounds. No distension or tympany. No guarding or rebound. No evidence of tenderness throughout. Skin: Warm, dry with normal turgor. Normal color with no rashes, no lesions, and no evidence of cellulitis. 14:12 Constitutional: The patient appears Confused, nonverbal 14:12 ECG was reviewed by the Attending Physician. 14:12 Neuro: Moves all 4 extremities equally, Vital Signs: 11:55 BP 101 / 66; Pulse 66; Resp 15; Temp 98.8(O); Pulse Ox 98% on R/A; Weight 83.91 kg; cm10 12:30 BP 105 / 64; Pulse 68; Resp 15; Pulse Ox 99% ; cm10 13:00 BP 104 / 48; Pulse 69; Resp 15; Pulse Ox 100% ; cm10 13:30 BP 111 / 76; Pulse 65; Resp 15; Pulse Ox 96% on R/A; cm10 14:00 BP 110 / 63; Pulse 65; Resp 15; Pulse Ox 99% ; cm10 14:30 BP 110 / 77; Pulse 66; Resp 16; Pulse Ox 99% ; cm10 15:32 Pulse 70; Resp 18; Pulse Ox 98% on R/A; ld1 17:44 BP 112 / 68; Pulse 68; Resp 18; Pulse Ox 99% on R/A; ld1 18:30 BP 103 / 58; Pulse 67; Resp 15; Pulse Ox 99% ; cm10 MDM: 12:07 Medical Screening Exam initiated rt 21:00 Differential Diagnosis Hypotension, normotension, dysrhythmia, UTI, anemia. Data rt reviewed: vital signs, nurses notes, lab test result(s), EKG, radiologic studies. Consideration of Admission/Observation Escalation of care including admission/observation considered. Patient has no hypotension in the emergency department without any treatment, workup is benign, discussed with the , she is comfortable discharge at this time and will follow-up as an outpatient.. Independent interpretation of the following test(s) in the Emergency Department CT Scan: My interpretation is No intracranial hemorrhage seen on my interpretation of CT scan images. Care significantly affected by the following chronic conditions: Dementia. Counseling: I had a detailed discussion with the patient and/or guardian regarding the historical points, exam findings, and any diagnostic results supporting the discharge/admit diagnosis, lab results, radiology results, the need for outpatient follow up, to return to the emergency department if symptoms worsen or persist or if there are any questions or concerns that arise at home. Response to treatment: the patient's symptoms have markedly improved after treatment. 06/15 12:15 Order name: Blood Culture Adult (2) rt 06/15 12:15 Order name: CBC with Diff; Complete Time: 12:50 rt 06/15 12:15 Order name: CMP; Complete Time: 14:01 rt 06/15 12:15 Order name: Lactate w/ 2H reflex if indic.; Complete Time: 14:01 rt 06/15 12:15 Order name: Protime (+inr); Complete Time: 14:01 rt 06/15 12:15 Order name: Ptt, Activated; Complete Time: 14:01 rt 06/15 12:15 Order name: Urinalysis w/ reflexes; Complete Time: 14:01 rt 06/15 12:15 Order name: Troponin High Sensitivity; Complete Time: 14:01 rt 06/15 12:15 Order name: Chest Single View XRAY; Complete Time: 12:50 rt 06/15 14:06 Order name: CT Head Brain wo Cont; Complete Time: 16:53 rt 06/15 14:29 Order name: Abdomen ; Complete Time: 16:53 EDMS 06/15 12:15 Order name: Accucheck; Complete Time: 12:29 rt 06/15 12:15 Order name: Cardiac monitoring; Complete Time: 12:18 rt 06/15 12:15 Order name: EKG - Nurse/Tech; Complete Time: 12:18 rt 06/15 12:15 Order name: IV Saline Lock - Large Bore; Complete Time: 12:18 rt 06/15 12:15 Order name: Labs collected and sent; Complete Time: 12:18 rt 06/15 12:15 Order name: O2 Per Protocol; Complete Time: 12:18 rt 06/15 12:15 Order name: O2 Sat Monitoring; Complete Time: 12:18 rt 06/15 12:15 Order name: Vital Signs; Complete Time: 12:18 rt 06/15 12:38 Order name: Labs - recollect needed: recollect green top; Complete Time: 13:30 bd 06/15 12:45 Order name: Labs - recollect needed: recollect blue top; Complete Time: 13:30 bd EC:12 Rate is 68 beats/min. Rhythm is regular, Normal Sinus Rhythm with Right bundle branch rt block. QRS [place] is Normal. MI interval is normal. QRS interval is normal. QT interval is normal. No Q waves. No ST changes noted. Interpreted by me. Administered Medications: No medications were administered Disposition Summary: 06/15/24 17:04 Discharge Ordered Notes: Location: Home rt Problem: new rt Symptoms: have improved rt Condition: Stable rt Diagnosis - Transient hypotension rt Followup: rt - With: Private Physician - When: 2 - 3 days - Reason: Discharge Instructions: - Discharge Summary Sheet rt - Hypotension rt Forms: - Medication Reconciliation Form rt - Antibiotic Education rt - Prescription Opioid Use rt - Patient Portal Instructions rt - Leadership Thank You Letter rt Signatures: Dispatcher [employer] EDMS Ines MollyWolf Leal MD MD rt Jenniffer Harvey, RN RN cm10 Corrections: (The following items were deleted from the chart) 12:15 12:15 BLOOD CULTURE*+BA.LAB.BRZ ordered. EDMS EDMS 12:15 12:15 CBC+H.LAB.BRZ ordered. EDMS EDMS 12:15 12:15 COMPREHENSIVE METABOLIC PANEL+C.LAB.BRZ ordered. EDMS EDMS 12:15 12:15 LACTATE+C.LAB.BRZ ordered. EDMS EDMS 12:15 12:15 PROTIME (+INR)+COAG.LAB.BRZ ordered. EDMS EDMS 12:15 12:15 PTT, ACTIVATED+COAG.LAB.BRZ ordered. EDMS EDMS 12:15 12:15 Urinalysis+U.LAB.BRZ ordered. EDMS EDMS 12:15 12:15 Troponin High Sensitivity+C.LAB.BRZ ordered. EDMS EDMS 12:15 12:15 Chest Single View+RAD.RAD.BRZ ordered. EDMS EDMS 14:07 14:07 Head Brain Wo Cont+CT.RAD.BRZ ordered. EDMS EDMS 14:29 14:08 Abdomen W/ Con+CT.RAD.BRZ ordered. EDMS EDMS
--- NOTE | 2024-06-15 17:04 | ER ---
Nurse's Notes [facility] Name: Chauncey Dunn Age: 79 yrs Sex: Male : 1945 Arrival Date: 06/15/2024 Time: 11:51 Bed 3 Private MD: Diagnosis: Transient hypotension Presentation: 06/15 11:55 Chief complaint: EMS states: CALLED TO PATIENT'S HOME FOR HYPOTENSION. EMS REPORTS THAT cm10 PATIENT'S REPORTS THAT BLOOD PRESSURE WAS IN THE 80S AT HOME. FOR EMS BP WAS IN THE LOW 100S. PT RECENTLY COMPLETED ANTIBIOTICS FOR UTI. PTS REPORTS THAT PATIENT HAS HAD DISCHARGE FROM [facility]. Coronavirus screen: Client denies travel out of the [place] in the last 14 days. Ebola Screen: Patient denies travel to an Ebola-affected area in the 21 days before illness onset. Initial Sepsis Screen: Does the patient meet any 2 criteria? No. Patient's initial sepsis screen is negative. Does the patient have a suspected source of infection? No. Patient's initial sepsis screen is negative. Risk Assessment: Do you want to hurt yourself or someone else? Patient reports no desire to harm self or others. Onset of symptoms was June 15, 2024. Care prior to arrival: Medication(s) given: Normal saline infusion, 650mL IV initiated. 20 GA, in the right hand, Glucose check: 124. 11:55 Method Of Arrival: EMS: [facility]10 11:55 Acuity: ANNEMARIE 3 cm10 Triage Assessment: 12:15 General: Appears uncomfortable, Behavior is agitated, restless. Pain: Unable to use cm10 pain scale. Does not appear to understand pain scale. Neuro: No deficits noted. Level of Consciousness is awake, confused. Cardiovascular: Patient's skin is warm and dry. Edema is 2+ to left ankle and right ankle. Respiratory: No deficits noted. Airway is patent Respiratory effort is even, unlabored, Respiratory pattern is regular, symmetrical, Breath sounds are diminished bilaterally. Musculoskeletal: Range of motion: limited in all extremities. Historical: - Allergies: 12:01 Bactrim; cm10 - PMHx: 12:01 Alzheimer's disease; Glaucoma; Hypertensive disorder; Cerebrovascular accident; cm10 Dementia; - PSHx: 12:01 back; cataract; cm10 - Immunization history:: Adult Immunizations up to date. - Infectious Disease History:: Denies. - Social history:: Smoking status: unknown. - Family history:: not pertinent. Screenin:43 [facility] ED Fall Risk Assessment (Adult) History of falling in the last 3 months, cm10 including since admission No falls in past 3 months (0 pts) Confusion or Disorientation Yes (5 pts) Intoxicated or Sedated No (0 pts) Impaired Gait Yes (1 pt) Mobility Assist Device Used Yes (1 pt) Altered Elimination Yes (1 pt) Score/Fall Risk Level 3 or more points = High Risk Oriented to surroundings, Maintained a safe environment, Hourly rounding (assess needs \T\ fall precautionary measures) done. Abuse screen: Denies threats or abuse. Denies injuries from another. Nutritional screening: No deficits noted. Tuberculosis screening: No symptoms or risk factors identified. Assessment: 13:44 Reassessment: Patient appears in no apparent distress at this time. Patient and/or cm10 family updated on plan of care and expected duration. Pain level reassessed. 15:34 Reassessment: Patient appears in no apparent distress at this time. Patient and/or cm10 family updated on plan of care and expected duration. Pain level reassessed. 17:44 Reassessment: Patient appears in no apparent distress at this time. No changes from ld1 previously documented assessment. Patient and/or family updated on plan of care and expected duration. Pain level reassessed. [facility] called for transport back home per request due to patient being bedbound. Pt being fed thickened snacks at bedside. Cleaned and placed in clean brief at this time. Vital Signs: 11:55 BP 101 / 66; Pulse 66; Resp 15; Temp 98.8(O); Pulse Ox 98% on R/A; Weight 83.91 kg; cm10 12:30 BP 105 / 64; Pulse 68; Resp 15; Pulse Ox 99% ; cm10 13:00 BP 104 / 48; Pulse 69; Resp 15; Pulse Ox 100% ; cm10 13:30 BP 111 / 76; Pulse 65; Resp 15; Pulse Ox 96% on R/A; cm10 14:00 BP 110 / 63; Pulse 65; Resp 15; Pulse Ox 99% ; cm10 14:30 BP 110 / 77; Pulse 66; Resp 16; Pulse Ox 99% ; cm10 15:32 Pulse 70; Resp 18; Pulse Ox 98% on R/A; ld1 17:44 BP 112 / 68; Pulse 68; Resp 18; Pulse Ox 99% on R/A; ld1 18:30 BP 103 / 58; Pulse 67; Resp 15; Pulse Ox 99% ; cm10 ED Course: 11:54 Patient arrived in ED. cm10 11:54 Wolf Okeefe MD is Attending Physician. rt 12:01 Triage completed. cm10 12:09 Arm band placed on Patient placed in an exam room, on a stretcher, on cardiac cath technologist, cm10 on pulse oximetry. EKG completed in triage. Results shown to MD. 12:09 EKG done, by ED staff, reviewed by Wolf Okeefe MD. Maintain EMS IV. Dressing cm10 intact. Good blood return noted. Site clean \T\ dry. Gauge \T\ site: 20g right hand. Flushed with 10 mL NS. 12:15 Inserted saline lock: 20 gauge in left upper arm, using aseptic technique. Blood cm10 collected. Flushed with 10 mL NS. 12:15 Initial lab(s) drawn, by me, sent to lab. cm10 12:32 Jenniffer Harvey, RN is Primary Nurse. cm10 12:35 Chest Single View XRAY In Process Unspecified. EDMS 13:30 Straight cath inserted, using sterile technique, 14 Fr. Specimen obtained. Returned cm10 clear yellow urine. Patient tolerated well. 13:31 Urinalysis w/ reflexes Sent. ld1 13:44 Patient has correct armband on for positive identification. Bed in low position. Call cm10 light in reach. Side rails up X2. Adult w/ patient. Client placed on continuous cardiac and pulse oximetry monitoring. NIBP monitoring applied. diesel mechanic farm on. 14:51 CT Head Brain wo Cont In Process Unspecified. EDMS 14:51 Abdomen In Process Unspecified. EDMS 17:42 Cleaned of incontinence. ld1 17:42 Diet: Patient given snack. thickened ensure and thickened fluids provided with ld1 applesauce to patient. caddy/caddie supervisor at bedside feeding patient. . 17:46 No provider procedures requiring assistance completed. IV discontinued, intact, cm10 bleeding controlled, No redness/swelling at site. Pressure dressing applied. 17:47 Provided Education on: Follow-up instruction. cm10 Administered Medications: No medications were administered Medication: 13:44 VIS not applicable for this client. cm10 Outcome: 17:04 Discharge ordered by . rt 17:46 Discharged to home via ambulance, cm10 17:46 Condition: good 17:46 Discharge instructions given to online education manager, Instructed on discharge instructions, follow up and referral plans. Demonstrated understanding of instructions, follow-up care, 18:39 Patient left the ED. cm10 Signatures: Dispatcher [employer] EDMS Tori Lockhart RN RN ld1 Wolf Okeefe MD MD rt Jenniffer Harvey RN RN cm10
[2024-06-15 19:49] VITALS: TEMP 98.8
[2024-06-15 20:02] VITALS: O2SAT 99
[2024-06-15 20:03] VITALS: BP 103/58
--- NOTE | 2024-06-17 14:47 | EKG ---
Test Date: 2024-06-15 Test Time: 12:05:35 Bus Inspector: ADAM MEASUREMENT RESULTS: Intervals: Rate: 68 CA: 162 QRSD: 136 QT: 416 QTc: 442 [place]: P: 64 CA: 162 QRS: 62 T: 54 INTERPRETIVE STATEMENTS: Normal sinus rhythm Right bundle branch block Abnormal ECG Compared to ECG 03/15/2024 15:19:03 No significant changes Electronically Signed On 06-17-24 14:42:35 CDT by Mk Loza
== END 2024-06-15 18:39 | disposition home or self-care (01) ==
LOC: ER 11:51
DX: I95.89 Other hypotension (principal); G30.9 Alzheimer's disease, unspecified; F02.80 Dementia in other diseases classified elsewhere, unspecified severity, without behavioral disturbance, psychotic disturbance, mood disturbance, and anxiety; I10 Essential (primary) hypertension; Z86.73 Personal history of transient ischemic attack (TIA), and cerebral infarction without residual deficits
CPT/HCPCS: 93005; 87040 ×2; 85025; 36415; 85610; 83605; 85730; 81003; 84484; 80053; 70450; 74177; 71045; 51702; 99285; Q9967

== ENCOUNTER 2024-07-29 12:20 | Inpatient (IN) | payer OTHER, BC ==
--- OUTSIDE RECORDS SUMMARY | 2024-07-29 12:33 | XMS REPORT | Continuity of Care Document ---
Author Name Unknown Address [address] [facility] [address] [place] [address] [facility] [place] Address [address] [facility] [address] [place] [address] Care Team Providers Care Oysterman Name Role Phone Dougie Giles MD Primary Care Physician [phone] Dougie Giles MD Attending Clinician [phone] MONICA RYAN Attending Clinician Unavailab ISAURA Ceja Attending Clinician Unavailable ISAURA BECK Attending Clinician Unavailable Isaura Beck MD Attending Clinician [phone] NATALIE TRIVEDI Attending Clinician Unavaila Joseph Joe Attending Clinician Unavailable Joseph Smith Attending Clinician [phone] NICANOR LENTZ Attending Clinician Unavailable Nicanor Lentz DO Attending Clinician [phone] Shira Mead RN Attending Clinician Unavail able MARQUES HINES Attending Clinician Unavailable Andreina Albert Attending Clinician [phone] Marlena Rios MD Attending Clinician [phone] Marques Hines DO Attending Clinician [phone] Virginia Soni DO Attending Clinician [phone] VIRGINIA SONI Attending Clinician Unavailab pennie Vaughn RN, Ena Brown Attending Clinician Unavailab pennie Verdin MD, Juno Wright Attending Clinician [phone] OLMAN DAVID Attending Clinician Unavailable Frankie SOLAR PHOTOVOLTAIC CREW LEAD, Olman Attending Clinician + [phone] Doctor Unassigned, [place] Attending Clinician U arronailable LARRY MEGANLOVELYDIA Attending Clinician Unavailab pennie Nickerson DO, Marcie Attending Clinician [phone] Harvinder LOPEZ, Chaz Attending Clinician [phone] Farooq SOLAR PHOTOVOLTAIC CREW LEAD, Natalie Attending Clinician [phone] Lopez LOPEZ, Fantasma Attending Clinician [phone] Jania LOPEZ, Jean Attending Clinician [phone] Chan LOPEZ, Dougie Attending Clinician [phone] DOUGIE GILES Attending Clinician Unavailable MARLENA RIOS Attending Clinician Unavailable Yaritza Aguirre Anavella Attending Cli nician Unavailable JOSEFINA DASILVA Attending Clinician Unavailable Josefina Dasilva MD Attending Clinician [phone] Nurse, Adc Surgery Gu Attending Clinician UnaJelani aCusey MD Attending Clinician [phone] JEAN JARRETT Attending Clinician Unavailable Penelope MENDOZA, Liane Attending Clinician Unavailable Only, Ang Db Test Attending Clinician Unavailabl Mannie Vuong DO Attending Clinician [phone] MANNIE VÁSQUEZ Attending Clinician Unavail able MARGI BOYD Attending Clinician Unavailable Margi Horn Attending Clinician + [phone] Justine Collins Attending Clinician + [phone] JUSTINE GARCIA Attending Clinician Unavailable Lab, Adc Fam Pob I Attending Clinician Unavailab JELANI Álvarez Attending Clinician Unavail able JELANI CORDON Attending Clinician Unavail able JEZ ALEXANDER Attending Clinician Unavailable Shi_Olga Attending Clinician Unavailable MONICA RYAN Admitting Clinician Unavailab ISAURA Ceja Admitting Clinician Unavailable Joseph MELENDEZ Admitting Clinician Unavailable MARQUES HINES Admitting Clinician Unavailable Marques Hines DO Admitting Clinician [phone] V[place] SONI Admitting Clinician Unavailab OLMAN Anglin Admitting Clinician Unavailable CHAZ ROBERTS Admitting Clinician Unavailable Chaz Roberts MD Admitting Clinician [phone] NICANOR LENTZ Admitting Clinician Unavailable MARLENA RIOS Admitting Clinician Unavailable Marlena Rios MD Admitting Clinician [phone] Tomasa Aguirre Anav Admitting Clinician U JOSEFINA Cam Admitting Clinician Unavailable Josefina Dasilva MD Admitting Clinician [phone] JELANI CORDON Admitting Clinician Unavail able Compa Admitting Clinician Unavailable Payers Payer Name Policy Type Policy Number Effective Date Expirati on Date Source [facility] [id number] BCTI BCTI [id number] TWV [id number] [place] [employer] [id number] 2002 00:00:00 [place] [id number] 2013 00:00:00 Problems Condition Name Condition Details Condition Category Status Onset Date Resolution Date Last Treatment Date Treating Clinician Comments Source Other constipati on Other constipati on Disease Active 2023-04 00:00: 00 [facility] Asthenia Asthenia Disease Active 2023-04 00:00: 00 [facility] Herpes zoster without complicati on Herpes zoster without complicati on Disease Active 2023-04 00:00: 00 [facility] Viral syndrome Viral syndrome Disease Active 2023-04 00:00: 00 [facility] Fever, unspecifie d fever cause Fever, unspecifie d fever cause Disease Active 2022-04 0 00:00: 00 [facility] Wound of right ankle, initial encounter Wound of right ankle, initial encounter Disease Active 2022-04 0 00:00: 00 [facility] Cellulitis , unspecifie d cellulitis site Cellulitis , unspecifie d cellulitis site Disease Active 8 00:00: 00 [facility] Unspecifie d dementia, unspecifie d severity, without behavioral disturbanc e, psychotic disturbanc e, mood disturbanc e, and anxiety Unspecifie d dementia, unspecifie d severity, without behavioral disturbanc e, psychotic disturbanc e, mood disturbanc e, and anxiety Disease Active 8 00:00: 00 [facility] 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 11-26 00:00: 00 [facility] Problem related to unspecifie d psychosoci al circumstan vasu Problem related to unspecifie d psychosoci al circumstan vasu Disease Active 11-26 00:00: 00 [facility] Post-traum atic stress disorder, chronic Post-traum atic stress disorder, chronic Disease Active 11-26 00:00: 00 [facility] Fever in adult Fever in adult Disease Active 10-28 00:00: 00 [facility] Pneumonia due to infectious organism Pneumonia due to infectious organism Disease Active 725 00:00: 00 [facility] Pneumonia due to infectious organism Pneumonia due to infectious organism Disease Active 25 00:00: 00 [facility] At risk for aspiration At risk for aspiration Disease Active 4-20 00:00: 00 [facility] Cellulitis of right ankle Cellulitis of right ankle Disease Active 4-16 00:00: 00 [facility] Fecal impaction in rectum Fecal impaction in rectum Disease Active 2-20 00:00: 00 [facility] Pancolitis Pancolitis Disease Active 05-02 00:00: 00 [facility] Basal cell carcinoma (BCC) of chin Basal cell carcinoma (BCC) of chin Disease Active 2017-04 00:00: 00 Overview: Formattin g of this note might be different from the original. Added automatic ally from request for surgery [id number] [facility] Glaucoma Glaucoma Disease Active [...] Source History SDOH Social Connections Get Together [facility] History SDOH Social Connections Christianity [facility] History SDOH Social Connections Membership [facility] History SDOH Social Connections Meetings [facility] Gender identity [facility] Sexual orientation U [facility] Alcoholic beverage intake 2024-03-11 00:00:00 2024-03-11 00:00:00 0 /d [facility] Alcohol intake 2023 00:00:00 2023 00:00:00 0 /d [facility] Exposure to SARS-CoV-2 (event) 2022-08-17 00:00:00 2022-08-27 14:30:00 Not sure [facility] History of Social function 2022-08-27 00:00:00 2022-08-27 00:00:00 [facility] History SDOH Alcohol Frequency 2022-07-21 00:00:00 2022-07-21 00:00:00 1 [facility] History SDOH Social Connections Phone 2022-07-21 00:00:00 2022-07-21 00:00:00 3 [facility] History SDOH Social Connections Living 2022-07-21 00:00:00 2022-07-21 00:00:00 3 [facility] History SDOH Financial 2022-07-21 00:00:00 2022-07-21 00:00:00 5 [facility] History SDOH Food Worry 2022-07-21 00:00:00 2022-07-21 00:00:00 1 [facility] History SDOH Food Scarcity 2022-07-21 00:00:00 2022-07-21 00:00:00 1 [facility] History SDOH Transport Med 2022-07-21 00:00:00 2022-07-21 00:00:00 2 [facility] History SDOH Transport Non-Med 2022-07-21 00:00:00 2022-07-21 00:00:00 2 [facility] History SDOH Physical Activity DPW 2022-07-21 00:00:00 2022-07-21 00:00:00 2 [facility] History SDOH Physical Activity MPS 2022-07-21 00:00:00 2022-07-21 00:00:00 1 [facility] History SDOH Housing Unable to Pay 2022-07-21 00:00:00 2022-07-21 00:00:00 2 [facility] History SDOH Housing Places Lived 2022-07-21 00:00:00 2022-07-21 00:00:00 1 [facility] History SDOH Housing Homeless Last Year 2022-07-21 00:00:00 2022-07-21 00:00:00 2 [facility] Tobacco use and exposure 2022-07-20 00:00:00 2022-07-20 00:00:00 Smokeless tobacco non-user [facility] History SDOH Alcohol Std Drinks 2022-05-28 00:00:00 2022-05-28 00:00:00 0 [facility] History SDOH Alcohol Binge 2022-05-28 00:00:00 2022-05-28 00:00:00 1 [facility] Sex assigned at 1945 00:00:00 1945 00:00:00 [facility] Smoking Status Start Date Stop Date Source Never smoked tobacco [facility] Medications Ordered Medication Name Filled Medication Name Start Date Stop Date Current Medication? Ordering Clinician Indication Dosage Frequency Signature (SIG) Comments Components Source lactulose 10 gram/15 mL oral solution 2023-04 00:00: 00 Yes [id number] 30mL Take 30 mL by mouth in the morning. [facility] iopamidol (ISOVUE 370-500 mL) injection 150 mL 12-30 05:45: 00 12-30 05:45 :00 No [id number] 150mL 150 mL, Intravenou s, ONCE, 1 dose, On Marilu 12/31/23 at 0045, Routine [facility] ciprofloxac in HCl (CIPRO) tablet 500 mg 2022-04 00:30: 00 03-01 23:48 :00 No 500mg 500 mg, Oral, ONCE, 1 dose, On 03/01/23 at 1830, ROCKY
Re ason for Anti-Infec tive: Documented Infection< br>Documen nichole Infection Site: Skin / Soft Tissue
Duration of Therapy: Other (see Comments) [facility] ciprofloxac in HCl 500 mg tablet 2022-04 00:00: 00 Yes [id number] 500mg Take 1 tablet by mouth in the morning and 1 tablet at noon and 1 tablet in the evening. [facility] collagenase 250 unit/gram ointment 2022-04 00:00: 00 Yes [id number] Apply to area(s) daily. [facility] [...] (220 mg) capsule 2022-04 00:00: 00 Yes [id number] 50mg Take 1 capsule by mouth in the morning and 1 capsule at noon and 1 capsule in the evening. [facility] ascorbic acid, vitamin C, 500 mg tablet 2022-04 00:00: 00 Yes [id number] 500mg Take 1 tablet by mouth in the morning and 1 tablet in the evening. [facility] ibuprofen 400 mg tablet 2022-04 00:00: 00 Yes [id number] 400mg Take 1 tablet by mouth every [...] Thu02/04/23 at 1500, Until Discontinu ed, Routine [facility] D5W 0.9% NaCl (NS) IV infusion 1,000 mL 2022-04 03:00: 00 Yes 1000mL at 50 mL/hr, 1,000 mL, IV Infusion, CONTINUOUS , Starting on Thu02/03/23 at 2200, Until Discontinu ed, Routine [facility] D5W 0.9% NaCl (NS) IV infusion 1,000 mL 2022-04 02:15: 00 02-04 02:56 :32 No 1000mL at 150 mL/hr, 1,000 mL, IV Infusion, CONTINUOUS , Starting on Thu02/03/23 at 2115, Until Thu02/03/23 at 2156, Routine [facility] risperiDONE (RISPERDAL) tablet 4 mg 2022-04 02:00: 00 Yes 4mg 4 mg, Oral, QHS, First dose (after last modificati on) on Thu02/03/23 at 2100, Until Discontinu ed, Routine [facility] acetaminoph en (TYLENOL) suppository 650 mg 2022-04 21:35: 13 Yes 650mg 650 mg, Rectal, Q6HPRN, Starting on Thu02/03/23 at 1635, Until Discontinu ed, Routine, Temp > 38 C [facility] collagenase (SANTYL) ointment 2022-04 16:45: 00 Yes Topical, DAILY, First dose on Thu02/03/23 at 1145, Until Discontinu ed, Routine [facility] sodium hypochlorit e 0.25% (DAKIN'S SOLUTION) solution 2022-04 16:45: 00 Yes Topical, DAILY, First dose on Thu02/03/23 at 1145, Until Discontinu ed, Routine [facility] polyethylen e glycol 3350 powder 17 g 2022-04 14:00: 00 Yes 17g 17 g, Oral, DAILY, First dose on Thu02/03/23 at 0900, Until Discontinu ed [facility] omeprazole (PRILOSEC) capsule 20 mg 2022-04 14:00: 00 Yes 20mg 20 mg, Oral, DAILY, First dose on Thu02/03/23 at 0900, Until Discontinu ed, Routine [facility] lactobacill us acidophilus tablet 0.5 mg 2022-04 14:00: 00 Yes .5mg 0.5 mg, Oral, DAILY, First dose on Thu02/03/23 at 0900, Until Discontinu ed, Routine [facility] docusate (COLACE) 50 mg/5 mL solution 100 mg 2022-04 14:00: 00 Yes 100mg 100 mg, Oral, DAILY, First dose on Thu02/03/23 at 0900, Until Discontinu ed, Routine [facility] levoFLOXaci n (LEVAQUIN) tablet 750 mg 2022-04 14:00: 00 02-13 14:59 :00 No 750mg 750 mg, Oral, DAILY, 10 doses, First dose on Thu02/03/23 at 0900, Last dose on Thu02/12/23 at 0900, ROCKY
Re ason for Anti-Infec tive: Documented Infection< br>Documen nichole Infection Site: Skin / Soft Tissue
Duration of Therapy: 10 days [facility] sodium hypochlorit e 0.5% (DAKINS) solution 16 oz 2022-04 14:00: 00 02-03 16:41 :37 No 16[oz_a v] 16 oz, Topical, DAILY, First dose on Thu02/03/23 at 0900, Until Discontinu ed, Routine [facility] zinc sulfate (ORAZINC) capsule 50 mg 2022-04 13:00: 00 Yes 50mg 50 mg, Oral, TID, First dose on Thu02/03/23 at 0800, Until Discontinu ed, Routine [facility] ascorbic acid (vitamin C) (VITAMIN C) tablet 500 mg 2022-04 13:00: 00 Yes 500mg 500 mg, Oral, BID, First dose on Thu02/03/23 at 0800, Until Discontinu ed, Routine [facility] codeine-gua ifenesin (ROBITUSSIN AC) 10-100 mg/5 mL oral solution 5 mL 2022-04 05:26: 58 Yes 5mL 5 mL, Oral, Q6HPRN, Starting on Thu02/03/23 at 0026, Until Discontinu ed, Routine, Cough [facility] melatonin (MELATIN) tablet 10.5 mg 2022-04 02:00: 00 Yes 10mg 10.5 mg (rounded from 10 mg), Oral, QHS, First dose on Thu02/02/23 at 2100, Until Discontinu ed [facility] donepeziL (ARICEPT) tablet 10 mg 2022-04 02:00: 00 Yes 10mg 10 mg, Oral, QHS, First dose on Thu02/02/23 at 2100, Until Discontinu ed [facility] doxazosin (CARDURA) tablet 1 mg 2022-04 02:00: 00 Yes 1mg 1 mg, Oral, QHS, First dose on Thu02/02/23 at 2100, Until Discontinu ed, Routine [facility] latanoprost (XALATAN) 0.005 % ophthalmic drops 1 Drop 2022-04 02:00: 00 Yes 1[drp] 1 Drop, Both Eyes, QHS, First dose on Thu02/02/23 at 2100, Until Discontinu ed, Routine [facility] traZODone (DESYREL) tablet 25 mg 2022-04 02:00: 00 02-03 05:28 :00 No 25mg 25 mg, Oral, QHS, First dose on Thu02/02/23 at 2100, Until Discontinu ed [facility] brimonidine (ALPHAGAN) 0.2 % ophthalmic solution 1 Drop 2022-04 01:00: 00 Yes 1[drp] 1 Drop, Both Eyes, TID, First dose on Thu02/02/23 at 2000, Until Discontinu ed, Routine [facility] timolol (TIMOPTIC) 0.5 % ophthalmic solution 1 Drop 2022-04 01:00: 00 Yes 1[drp] 1 Drop, Both Eyes, BID, First dose on Thu02/02/23 at 2000, Until Discontinu ed, Routine [facility] amoxicillin -clavulanat e (AUGMENTIN) 875-125 [...] 1745, Until Thu02/03/23 at 1914, Routine [facility] acetaminoph en ADULT (OFIRMEV) injection [...] at 1700, Until Discontinu ed, Routine [facility] risperiDONE (RISPERDAL) tablet 4 mg 2022-04 22:00: 00 02-03 17:34 :44 No 4mg 4 mg, Oral, QPM, First dose on Thu02/02/23 at 1700, Until Discontinu ed, Routine [facility] ondansetron (ZOFRAN (PF)) injection 4 mg 2022-04 21:37: 00 Yes 4mg 4 mg, Slow IV Push, Q6HPRN, Starting on Thu02/02/23 at 1637, Until Discontinu ed, Routine, Nausea and Vomiting (N/V) [facility] dextrometho rphan-guaif enesin (ROBITUSSIN DM) 10-100 mg/5 mL solution 10 mL 2022-04 21:31: 42 Yes 10mL 10 mL, Oral, Q6HPRN, Starting on Thu02/02/23 at 1631, Until Discontinu ed, Routine, Cough [facility] sodium hypochlorit e 0.5% (DAKINS) solution 16 oz 2022-04 14:00: 00 Yes 16[oz_a v] 16 oz, Topical, DAILY, First dose on Thu01/30/23 at 0900, Until Discontinu ed, Routine [facility] sodium hypochlorit e 0.5% solution 2022-04 00:00: 00 Yes [id number] 16[oz_a v] Apply 473 mL to area(s) in the morning. [facility] metoprolol succinate XL 25 mg 24 hr tablet 2022-04 00:00: 00 03-02 05:59 :00 No [id number] 12.5mg Take 0.5 tablets by mouth in [...] of Therapy: 14 days [facility] dextrometho yan-aldof enesin (ROBITUSSIN DM) 10-100 mg/5 mL solution 10 mL 2022-04 14:33: 23 Yes 10mL 10 mL, Oral, Q6HPRN, Starting on Thu01/28/23 at 0933, Until Discontinu ed, Routine, Cough [facility] levoFLOXaci n 750 mg tablet 2022-04 00:00: 00 02-12 05:59 :00 No [id number] 750mg Take 1 tablet by mouth in the morning for 14 days. [facility] amoxicillin -clavulanat e 875-125 mg per tablet 2022-04 00:00: 00 02-12 05:59 :00 No [id number] 1{tbl} Take 1 tablet by mouth in [...] 2135, Until Discontinu ed, Routine, Insomnia [facility] metoprolol succinate XL (TOPROL XL) tablet 12.5 mg 2022-04 14:00: 00 Yes 12.5mg 12.5 mg, Oral, DAILY, First dose on Thu01/26/23 at 0900, Until Discontinu ed, Routine [facility] Vitamin E (dl, acetate) capsule 400 Units 2022-04 14:00: 00 Yes 400U 400 Units, Oral, DAILY, First dose on Thu01/26/23 at 0900, Until Discontinu ed [facility] polyethylen e glycol 3350 powder 17 g 2022-04 14:00: 00 Yes 17g 17 g, Oral, DAILY, First dose on Thu01/26/23 at 0900, Until Discontinu ed [facility] omeprazole (PRILOSEC) capsule 20 mg 2022-04 14:00: 00 Yes 20mg 20 mg, Oral, DAILY, First dose on Thu01/26/23 at 0900, Until Discontinu ed, Routine [facility] lactobacill us acidophilus tablet 0.5 mg 2022-04 14:00: 00 Yes .5mg 0.5 mg, Oral, DAILY, First dose on Thu01/26/23 at 0900, Until Discontinu ed, Routine [facility] docusate (COLACE) 50 mg/5 mL solution 50 mg 2022-04 14:00: 00 Yes 50mg 50 mg, Oral, DAILY, First dose on Thu01/26/23 at 0900, Until Discontinu ed, Routine [facility] zolpidem (AMBIEN) tablet 5 mg 2022-04 06:30: 00 01-26 05:58 :00 No 5mg 5 mg, Oral, ONCE, 1 dose, On Thu01/26/23 at 0130, Routine [facility] heparin (porcine) injection 5,000 Units 2022-04 03:00: 00 Yes 5000U 5,000 Units, Subcutaneo us, Q8H, First dose on Thu01/25/23 at 2200, Until Discontinu ed, Routine [facility] cefTRIAXone (ROCEPHIN) 1,000 mg in NaCl 0.9% [...] uration of therapy: 5 days [facility] traZODone (DESYREL) tablet 25 mg 2022-04 02:00: 00 Yes 25mg 25 mg, Oral, QHS, First dose on 01/25/23 at 2100, Until Discontinu ed [facility] timolol (TIMOPTIC) 0.5 % ophthalmic solution 1 Drop 2022-04 02:00: 00 Yes 1[drp] 1 Drop, Both Eyes, BID, First dose on 01/25/23 at 2100, Until Discontinu ed, Routine [facility] risperiDONE (RISPERDAL) tablet 4 mg 2022-04 02:00: 00 Yes 4mg 4 mg, Oral, QHS, First dose on 01/25/23 at 2100, Until Discontinu ed, Routine [facility] melatonin (MELATIN) tablet 10.5 mg 2022-04 02:00: 00 Yes 10mg 10.5 mg (rounded from 10 mg), Oral, QHS, First dose on 01/25/23 at 2100, Until Discontinu ed [facility] latanoprost (XALATAN) 0.005 % ophthalmic drops 1 Drop 2022-04 02:00: 00 Yes 1[drp] 1 Drop, Both Eyes, QHS, First dose on 01/25/23 at 2100, Until Discontinu ed, Routine [facility] donepeziL (ARICEPT) tablet 10 mg 2022-04 02:00: 00 Yes 10mg 10 mg, Oral, QHS, First dose on Thu01/25/23 at 2100, Until Discontinu ed [facility] doxazosin (CARDURA) tablet 1 mg 2022-04 02:00: 00 Yes 1mg 1 mg, Oral, QHS, First dose on Thu01/25/23 at 2100, Until Discontinu ed, Routine [facility] acetaminoph en (TYLENOL) tablet 1,000 mg 2022-04 02:00: 00 Yes 1000mg 1,000 mg, Oral, QHS, First dose on Thu01/25/23 at 2100, Until Discontinu ed, Routine [facility] brimonidine (ALPHAGAN) 0.2 % ophthalmic solution 1 Drop 2022-04 02:00: 00 Yes 1[drp] 1 Drop, Both Eyes, BID, First dose on Thu01/25/23 at 2100, Until Discontinu ed, Routine [facility] simvastatin (ZOCOR) tablet 40 mg 2022-04 02:00: 00 01-27 22:47 :39 No 40mg 40 mg, Oral, QHS, First dose on Thu01/25/23 at 2100, Until Discontinu ed, Routine [facility] guaiFENesin 100 mg/5 mL solution 200 mg 2022-04 00:20: 03 01-28 14:34 :14 No 200mg 200 mg, Oral, Q4HPRN, Starting on Thu01/25/23 at 1920, Until Thu01/28/23 at 0934, Routine, Cough [facility] vancomycin 1,250 mg in NaCl [...] Bone
Du ration of therapy: 72 hours [facility] ondansetron (ZOFRAN (PF)) injection [...] Routine, Pain (scale 1-3) [facility] ampicillin- sulbactam (UNASYN) 3 g [...] Thu12/01/22 at 1100, Until Discontinu ed, Routine [facility] [...] 12-01 00:00: 00 12-10 04:59 :00 No [id number] 150mg Take 10 mL by mouth 4 (four) times daily for 8 days. [facility] tamsulosin (FLOMAX) capsule 0.4 mg 11-30 14:00: 00 Yes .4mg 0.4 mg, Oral, DAILY, First dose on Thu11/30/22 at 0900, Until Discontinu ed, Routine [facility] omeprazole (PRILOSEC) capsule 20 mg 11-30 14:00: 00 Yes 20mg 20 mg, Oral, DAILY, First dose on Thu11/30/22 at 0900, Until Discontinu ed, Routine [facility] docusate (COLACE) 50 mg/5 mL solution 100 mg 11-30 14:00: 00 Yes 100mg 100 mg, Oral, DAILY, First dose on Thu11/30/22 at 0900, Until Discontinu ed, [facility]ine [facility] glycerin/mi neral oil (AGLO ENEMA) (COMPOUNDED ) Enem 225 mL 11-30 14:00: 00 11-30 14:49 :00 No 225mL 225 mL, Rectal, ONCE, 1 dose, On Thu11/30/22 at 0900, Routine [facility] timolol (TIMOPTIC) 0.5 % ophthalmic solution 1 Drop 11-30 13:00: 00 Yes 1[drp] 1 Drop, Both Eyes, BID, First dose on Thu11/30/22 at 0800, Until Discontinu ed, Routine [facility] brimonidine (ALPHAGAN) 0.2 % ophthalmic solution 1 Drop 11-30 13:00: 00 Yes 1[drp] 1 Drop, Both Eyes, TID, First dose on Thu11/30/22 at 0800, Until Discontinu ed, Routine [facility] clindamycin in 5 % [...] After Hours (for ADC, CLC, LCC ONLY) [facility] NaCl 0.9% (NS) IV infusion 1,000 mL 11-30 03:15: 00 11-30 03:02 :43 No 1000mL at 75 mL/hr, IV Infusion, ONCE, 1 dose, On 11/29/22 at 2215, Routine [facility] heparin (porcine) injection 5,000 Units 11-30 03:00: 00 Yes 5000U 5,000 Units, Subcutaneo us, Q8H, First dose on 11/29/22 at 2200, Until Discontinu ed, Routine [facility] risperiDONE (RISPERDAL) tablet 4 mg 11-30 02:30: 00 11-30 22:24 :26 No 4mg 4 mg, Oral, QPM, First dose (after last modificati on) on 11/29/22 at 2130, Until Discontinu ed, Routine [facility] simvastatin (ZOCOR) tablet 40 mg 11-30 02:00: 00 Yes 40mg 40 mg, Oral, QHS, First dose on 11/29/22 at 2100, Until Discontinu ed, Routine [facility] melatonin (MELATIN) tablet 10.5 mg 11-30 02:00: 00 Yes 10mg 10.5 mg (rounded from 10 mg), Oral, QHS, First dose on 11/29/22 at 2100, Until Discontinu ed [facility] traZODone (DESYREL) tablet 25 mg 11-30 01:47: 26 Yes 25mg 25 mg, Oral, QHSPRN, Starting on 11/29/22 at 2046, Until Discontinu ed, Insomnia [facility] dextrometho rphan-guaif enesin (ROBITUSSIN DM) 10-100 mg/5 mL solution 10 mL 11-30 01:41: 51 Yes 10mL 10 mL, Oral, Q6HPRN, Starting on Thu11/29/22 at 2041, Until Discontinu ed, Routine, Cough [facility] acetaminoph en (TYLENOL) tablet 650 mg 11-30 00:19: 33 Yes 650mg 650 mg, Oral, Q6HPRN, Starting on Thu11/29/22 at 1919, Until Discontinu ed, Routine, Pain (scale 1-3) [facility] NaCl 0.9% (NS) bolus infusion 1,000 mL 11-29 23:45: 00 11-29 23:11 :00 No 1000mL at 999 mL/hr, 1,000 mL, IV Piggyback, ONCE, 1 dose, On Thu11/29/22 at 1845, STAT [facility] LORazepam [...] 11-26 22:45: 00 11-26 22:45 :00 No [id number] 80mL 80 mL, Intravenou s, ONCE, 1 dose, On Thu11/26/22 at 1745, Routine [facility] NaCl 0.9% (NS) bolus infusion [...] Discontinu ed, Routine [facility] dextrometho yan-aldof enesin 10-100 mg/5 mL solution 10-30 00:00: 00 Yes [id number] 10mL Take 10 mL by mouth every 6 (six) hours as needed for Cough. [facility] amoxicillin -pot clavulanate (AUGMENTIN) 250-62.5 mg/5 mL suspension 10-30 00:00: 00 11-07 04:59 :00 No [id number] 500mg Take 10 mL by mouth in the morning and 10 mL at noon and 10 mL in the evening. Do all this for 7 days. [facility] predniSONE 5 mg/5 mL solution 10-30 00:00: 00 11-05 04:59 :00 No [id number] 20mg Take 20 mL by mouth in the morning for 5 days. [facility] codeine-gua ifenesin (ROBITUSSIN AC) 10-100 mg/5 mL oral solution 5 mL 10-29 17:49: 39 Yes [id number] 5mL 5 mL, Oral, Q6HPRN, Starting on Thu10/29/22 at 1249, Until Discontinu ed, Routine, Cough [facility] latanoprost (XALATAN) 0.005 % ophthalmic drops 1 Drop 10-29 02:45: 00 Yes 1[drp] 1 Drop, Both Eyes, QPM, First dose on Thu10/28/22 at 2145, Until Discontinu ed, Routine [facility] brimonidine (ALPHAGAN) 0.2 % ophthalmic solution 1 Drop 10-29 02:45: 00 Yes 1[drp] 1 Drop, Both Eyes, BID, First dose on Thu10/28/22 at 2145, Until Discontinu ed, Routine [facility] timolol (TIMOPTIC) 0.25 % ophthalmic solution 1 Drop 10-29 02:45: 00 Yes 1[drp] 1 Drop, Both Eyes, BID, First dose on Thu10/28/22 at 2145, Until Discontinu ed, Routine [facility] traZODone (DESYREL) tablet 25 mg 10-29 02:00: 00 Yes 25mg 25 mg, Oral, QHS, First dose on Thu10/28/22 at 2100, Until Discontinu ed [facility] simvastatin (ZOCOR) tablet 40 mg 10-29 02:00: 00 Yes 40mg 40 mg, Oral, QHS, First dose on Thu10/28/22 at 2100, Until Discontinu ed, Routine [facility] risperiDONE (RISPERDAL) tablet 4 mg 10-28 22:00: 00 Yes 4mg 4 mg, Oral, QPM, First dose on Thu10/28/22 at 1700, Until Discontinu ed, Routine [facility] enoxaparin (LOVENOX) injection 40 mg 10-28 14:00: 00 Yes 40mg 40 mg, Subcutaneo us, DAILY, First dose on Thu10/28/22 at 0900, Until Discontinu ed, Routine [facility] omeprazole (PRILOSEC) capsule 20 mg 10-28 14:00: 00 Yes 20mg 20 mg, Oral, DAILY, First dose on Thu10/28/22 at 0900, Until Discontinu ed, Routine [facility] lactobacill us acidophilus tablet 0.5 mg 10-28 14:00: 00 Yes .5mg 0.5 mg, Oral, DAILY, First dose on Thu10/28/22 at 0900, Until Discontinu ed, Routine [facility] docusate (COLACE) 50 mg/5 mL solution 100 mg 10-28 14:00: 00 Yes 100mg 100 mg, Oral, DAILY, First dose on Thu10/28/22 at 0900, Until Discontinu ed, Routine [facility] ipratropium -albuteroL (DUONEB) 0.5 mg-3 mg(2.5 mg base)/3 mL nebulizer solution 3 mL 10-28 13:00: 00 Yes 3mL 3 mL, Inhalation , QID, First dose on Thu10/28/22 at 0800, Until Discontinu ed, Routine [facility] galantamine (REMINYL) tablet 8 mg 10-28 13:00: 00 Yes 8mg 8 mg, Oral, BID, First dose on Thu10/28/22 at 0800, Until Discontinu ed, Routine [facility] glucagon (GLUCAGEN DIAGNOSTIC KIT) injection [...] 08-27 00:00: 00 01-25 00:00 :00 No [id number] .4mg Take 1 capsule by mouth in the morning. [facility] docusate 50 mg/5 mL solution 07-27 00:00: 00 Yes [id number] 100mg Take 10 mL by mouth in the morning. [facility] collagenase 250 unit/gram ointment 07-27 00:00: 00 08-07 04:59 :00 No [id number] Apply to affected area(s) daily for 10 [...] 07-26 00:00: 00 08-22 04:59 :00 No [id number] 800mg Take 10 mL by mouth in the morning and 10 mL in the evening. Do all this for 52 doses. [facility] SODIUM HYPOCHLORIT E 0.025% Soln solution 07-26 00:00: 00 07-28 04:59 :00 No [id number] 1000mL Apply 1,000 mL to area(s) in [...] 07-25 18:09: 00 07-25 18:11 :00 No [id number] 80mL 80 mL, Intravenou s, ONCE, 1 [...] Inhalation , TIDPRN, Starting on Thu07/24/22 at 2150, Until Discontinu ed, Routine, Wheezing, Shortness of Breath [facility] ipratropium (ATROVENT) 0.02 % nebulizer [...] 2121, Until Discontinu ed, Routine, Cough [facility] sodium hypochlorit e 0.25% (DAKIN'S SOLUTION) solution 07-24 22:00: 00 07-24 21:28 :00 No Topical, ONCE, 1 dose, On Thu07/24/22 at 1700, Routine [facility] fluconazole (DIFLUCAN) Piggyback 200 mg 07-24 16:15: 00 07-26 16:20 :00 No 200mg at 100 mL/hr, IV Piggyback, Q24H ABX, 3 doses, First dose on Thu07/24/22 at 1115, Last dose on Thu07/26/22 at 1115, ROCKY
Do Not Refrigerat e.
[facility] piperacilli n-tazobacta m (ZOSYN) 3.375 [...] of therapy: 72 hours [facility] vancomycin (VANCOCIN) 1,000 mg in [...] Thu07/23/22 at 0900, Until Discontinu ed, Routine [facility] lactobacill us acidophilus tablet 0.5 mg 07-23 14:00: 00 Yes .5mg 0.5 mg, Oral, DAILY, First dose on Thu07/23/22 at 0900, Until Discontinu ed, Routine [facility] docusate (COLACE) 50 mg/5 mL solution 100 mg 07-22 15:15: 00 Yes 100mg 100 mg, Oral, DAILY, First dose on Thu07/22/22 at 1015, Until Discontinu ed, Routine [facility] QUEtiapine (SEROQUEL) tablet 25 mg 07-22 04:30: 00 07-22 03:55 :00 No 25mg 25 mg, Oral, ONCE, 1 dose, On Thu07/21/22 at 2330, Routine [facility] simvastatin (ZOCOR) tablet 40 mg 07-22 02:00: 00 Yes 40mg 40 mg, Oral, QHS, First dose on Thu07/21/22 at 2100, Until Discontinu ed, Routine [facility] latanoprost (XALATAN) 0.005 % ophthalmic drops 1 Drop 07-21 22:00: 00 Yes 1[drp] 1 Drop, Both Eyes, QPM, First dose on Thu07/21/22 at 1700, Until Discontinu ed, Routine [facility] piperacilli n-tazobacta m (ZOSYN) [...]
Duration of therapy: 72 hours [facility] collagenase (SANTYL) ointment 07-21 15:45: 00 Yes Topical (Apply To Affected Areas), DAILY, First dose on Thu07/21/22 at 1045, Until Discontinu ed, Routine [facility] galantamine (REMINYL) tablet 8 mg 07-21 15:15: 00 Yes 8mg 8 mg, Oral, BID, First dose on Thu07/21/22 at 1015, Until Discontinu ed, Routine [facility] tamsulosin (FLOMAX) capsule 0.4 mg 07-21 14:00: 00 Yes .4mg 0.4 mg, Oral, DAILY, First dose on Thu07/21/22 at 0900, Until Discontinu ed, Routine [facility] omeprazole (PRILOSEC) capsule 20 mg 07-21 14:00: 00 Yes 20mg 20 mg, Oral, DAILY, First dose on Thu07/21/22 at 0900, Until Discontinu ed, Routine [facility] enoxaparin (LOVENOX) injection 40 mg 07-21 14:00: 00 Yes 40mg 40 mg, Subcutaneo us, DAILY, First dose on Thu07/21/22 at 0900, Until Discontinu ed, Routine [facility] docusate (COLACE) capsule 100 mg 07-21 14:00: 00 07-22 15:13 :38 No 100mg 100 mg, Oral, DAILY, First dose on Thu07/21/22 at 0900, Until Discontinu ed, Routine [facility] timolol (TIMOPTIC) 0.5 % ophthalmic solution 1 Drop 07-21 13:30: 00 Yes 1[drp] 1 Drop, Both Eyes, BID, First dose on Thu07/21/22 at 0830, Until Discontinu ed, Routine [facility] brimonidine (ALPHAGAN) 0.2 % ophthalmic solution 1 Drop 07-21 13:00: 00 Yes 1[drp] 1 Drop, Both Eyes, TID, First dose on Thu07/21/22 at 0800, Until Discontinu ed, Routine [facility] melatonin (MELATIN) tablet 9 mg 07-21 05:15: 00 Yes 9mg 9 mg, Oral, QHS, First dose (after last modificati on) on Thu07/21/22 at 0015, Until Discontinu ed [facility] acetaminoph en (TYLENOL) tablet 1,000 mg 07-21 05:00: 00 Yes 1000mg 1,000 mg, Oral, QHS, First dose (after last modificati on) on Thu07/21/22 at 0000, Until Discontinu ed, Routine [facility] risperiDONE (RISPERDAL) tablet 4 mg 07-21 05:00: 00 07-26 02:28 :57 No 4mg 4 mg, Oral, QPM, First dose (after last modificati on) on Thu07/21/22 at 0000, Until Discontinu ed, Routine [facility] piperacilli n-tazobacta m (ZOSYN) 3.375 [...] 07-18 00:00: 00 08-02 04:59 :00 No [id number] 200mg Take 1 tablet by mouth in the morning and 1 tablet in the evening. Do all this for 14 days. [facility] levoFLOXaci n 750 mg tablet 07-18 00:00: 00 07-29 04:59 :00 No [id number] 750mg Take 1 tablet by mouth every 24 (twenty-fo ur) hours for 10 days. [facility] iopamidol (ISOVUE 370-500 mL) injection 78 mL 06-10 19:45: 00 06-10 19:45 :00 No [id number] 78mL 78 mL, Intravenou s, ONCE, 1 [...] Until Discontinu ed, Routine [facility] lactobacill us acidophilus tablet 0.5 [...] 45 Yes 1[drp] 1 Drop every evening. [facility] [...] Thu05/27/22 at 2100, Until Discontinu ed, Routine [facility] simvastatin (ZOCOR) tablet 40 mg 05-28 03:00: 00 Yes 40mg 40 mg, Oral, QHS, First dose on Thu05/27/22 at 2100, Until Discontinu ed, Routine [facility] melatonin (MELATIN) tablet 9 mg 05-28 03:00: 00 Yes 9mg 9 mg, Oral, QHS, First dose on Thu05/27/22 at 2100, Until Discontinu ed [facility] docusate (COLACE) capsule 100 mg 05-28 02:00: 00 Yes 100mg 100 mg, Oral, BID, First dose on Thu05/27/22 at 2000, Until Discontinu ed, Routine [facility] galantamine (REMINYL) tablet 8 mg 05-28 02:00: 00 Yes 8mg 8 mg, Oral, BID, First dose on Thu05/27/22 at 2000, Until Discontinu ed, [facility]ol[facility]TIMOPTIC[facility] 0.5 % ophthalmic solution 1 Drop 05-28 02:00: 00 Yes 1[drp] 1 Drop, Both Eyes, BID, First dose on Thu05/27/22 at 1999, Until Discontinu ed [facility] amoxicillin -clavulanat e (AUGMENTIN) 875-125 mg per tablet 05-28 00:00: 00 06-02 05:59 :00 No [id number] 1{tbl} Take 1 tablet by mouth in the morning and 1 tablet in the evening. Do all this for 4 days. [facility] risperiDONE (RISPERDAL) tablet 4 mg 05-27 23:00: 00 Yes 4mg 4 mg, Oral, QPM, First dose on Thu05/27/22 at 1700, Until Discontinu ed, Routine [facility] latanoprost (XALATAN) 0.005 % ophthalmic drops 1 Drop 05-27 23:00: 00 Yes 1[drp] 1 Drop, Both Eyes, QPM, First dose on Thu05/27/22 at 1700, Until Discontinu ed, Routine [facility] piperacilli n-tazobacta m (ZOSYN) [...] 1 dose, On Thu05/26/22 at 2215, Routine [facility] ondansetron (ZOFRAN (PF)) injection 4 mg 05-27 03:29: 20 Yes 4mg 4 mg, Slow IV Push, Q6HPRN, Starting on Thu05/26/22 at 2128, Until Discontinu ed, Routine, Nausea and Vomiting (N/V) [facility] traMADoL (ULTRAM) tablet 50 mg [...] of Therapy: 7 days [facility] ondansetron (ZOFRAN (PF)) injection 4 mg 05-27 00:15: 00 05-27 00:10 :00 No 4mg 4 mg, Slow IV Push, ONCE, 1 dose, On Thu05/26/22 at 1815, ROCKY [facility] ciprofloxac in HCl (CIPRO) tablet [...] 25mg 25 mg, Oral, Q6HPRN, Starting on Thu05/05/22 at 0443, Until Discontinu ed, Routine, Itching [...] 1 dose, On 05/04/22 at 1015, Routine [facility] simvastatin (ZOCOR) tablet 40 mg 05-04 03:00: 00 Yes 40mg 40 mg, Oral, QHS, First dose on 05/03/22 at 2100, Until Discontinu ed, Routine [facility] risperiDONE (RISPERDAL) tablet 2 mg 05-03 23:00: 00 Yes 2mg 2 mg, Oral, QPM, First dose (after last modificati on) on 05/03/22 at 1700, Until Discontinu ed, Routine [facility] latanoprost (XALATAN) 0.005 % ophthalmic drops 1 Drop 05-03 23:00: 00 Yes 1[drp] 1 Drop, Both Eyes, QPM, First dose on 05/03/22 at 1700, Until Discontinu ed, Routine [facility] lactobacill us acidophilus tablet 0.5 mg 05-03 18:00: 00 Yes .5mg 0.5 mg, Oral, DAILY, First dose on 05/03/22 at 1200, Until Discontinu ed, Routine [facility] enoxaparin (LOVENOX) injection 40 mg 05-03 15:00: 00 Yes 40mg 40 mg, Subcutaneo us, DAILY, First dose on 05/03/22 at 0900, Until Discontinu ed, Routine [facility] tamsulosin (FLOMAX) capsule 0.4 mg 05-03 15:00: 00 Yes .4mg 0.4 mg, Oral, DAILY, First dose on 05/03/22 at 0900, Until Discontinu ed, Routine [facility] omeprazole (PRILOSEC) capsule 20 mg 05-03 15:00: 00 Yes 20mg 20 mg, Oral, DAILY, First dose on 05/03/22 at 0900, Until Discontinu ed, Routine [facility] hydroCHLORO thiazide (ESIDRIX) tablet 12.5 mg 05-03 15:00: 00 Yes 12.5mg 12.5 mg, Oral, DAILY, First dose on [facility] 05/03/22 at 0900, Until Discontinu ed [facility] aspirin EC tablet 81 mg 05-03 15:00: 00 Yes 81mg 81 mg, Oral, DAILY, First dose on [facility] 05/03/22 at 0900, Until Discontinu ed, Routine [facility] brimonidine (ALPHAGAN) 0.2 % ophthalmic solution 1 Drop 05-03 14:00: 00 Yes 1[drp] 1 Drop, Both Eyes, TID, First dose on [facility] 05/03/22 at 0800, Until Discontinu ed, Routine [facility] metroNIDAZO LE in NaCl (iso-os) (FLAGYL I.V.) RTU IV infusion 500 mg 05-03 06:15: 00 05-05 20:29 :12 No 500mg 500 mg, IV Infusion, Q8H ABX, 21 doses, First dose on [facility] 05/03/22 at 0015, Last dose on Thu05/09/22 at [...] 60 Minutes, Q12H ABX, First dose on [facility] 05/03/22 at 0015, Until Discontinu ed, Routine
Reason [...] Thu05/02/22 at 2315, Until Discontinu ed, Routine [facility] ondansetron (ZOFRAN (PF)) injection 4 mg 05-03 04:53: 40 Yes 4mg 4 mg, Slow IV Push, Q6HPRN, Starting on Thu05/02/22 at 2253, Until Discontinu ed, Routine, Nausea and Vomiting (N/V) [facility] traMADoL (ULTRAM) tablet 50 mg 05-03 04:53: 31 05-05 04:52 :31 No 50mg 50 mg, Oral, Q8HPRN, Starting on Thu05/02/22 at 2253, Until Thu05/04/22 at 2252, Routine, Pain (scale 4-6) [facility] acetaminoph en (TYLENOL) tablet 650 mg 05-03 04:53: 29 Yes 650mg 650 mg, Oral, Q6HPRN, Starting on Thu05/02/22 at 2253, Until Discontinu ed, Routine, Pain (scale 1-3) [facility] iopamidol (ISOVUE 370-500 mL) injection 100 mL 05-03 02:45: 00 05-03 01:49 :00 No [id number] 100mL 100 mL, Intravenou s, ONCE, 1 dose, On Thu05/02/22 at 2045, Routine [facility] NaCl 0.9% (NS) bolus infusion 1,000 mL 05-03 01:45: 00 05-03 00:44 :00 No 1000mL at 999 mL/hr, 1,000 mL, IV Piggyback, ONCE, 1 dose, On Thu05/02/22 at 1945, STAT [facility] hydroCHLORO thiazide 12.5 mg capsule 05-02 22:53: 50 05-02 00:00 :00 No 12.5mg Take 12.5 mg by mouth daily. [facility] amoxicillin 500 mg tablet 04-18 00:00: 00 04-29 05:59 :00 No [id number] 500mg Take 1 tablet by mouth in the morning and 1 tablet in the evening. Do all this for 10 days. [facility] OMEPRAZOLE 20 mg capsule 10-24 00:00: 00 Yes [id number] Take 1 capsule by mouth once daily [facility] SIMVASTATIN 40 mg tablet 09-24 00:00: 00 01-29 00:00 :00 No [id number] TAKE 1 TABLET BY MOUTH ONCE DAILY AT BEDTIME [facility] galantamine 8 mg tablet 07-31 00:00: 00 Yes [id number] 8mg Take 1 tablet by mouth 2 (two) times daily. [facility] tamsulosin (FLOMAX) 0.4 mg 24 hr capsule 07-29 00:00: 00 08-27 00:00 :00 No [id number] .4mg Take 1 capsule by mouth daily. [facility] hydroCHLORO thiazide 12.5 mg capsule 2020-04 0 15:34: 14 Yes 12.5mg Take 12.5 mg [...] 08-28 00:00: 00 05-02 00:00 :00 No [id number] 12mg Take 1 tablet by mouth 2 (two) times daily. [facility] risperiDONE (RISPERDAL) 2 mg tablet 2019-04 00:00: 00 Yes [id number] 4mg Take 2 tablets by mouth every evening. [facility] brimonidine (ALPHAGAN) 0.2 % ophthalmic solution 2017-04 13:40: 32 Yes 1[drp] 1 Drop 3 (three) times daily. [facility] Fish Oil-DHA-EPA 1,200-144-2 16 mg Cap 2017-04 13:40: 32 Yes 1{capsu le} Take 1 capsule by mouth daily. [facility] Immunizations Ordered Immunization Name Filled Immunization Name Date Status Comments Source Remdesivir 2023-02-05 00:00:00 Completed [facility] Remdesivir 2023-02-04 00:00:00 Completed [facility] Remdesivir 2023-02-03 00:00:00 Completed Influenza High Dose 2021-12-27 00:00:00 Completed [facility] Influenza High Dose 2021-12-27 00:00:00 Completed [facility] Influenza High Dose 2021-12-27 00:00:00 Completed [facility] Influenza High Dose 2021-12-27 00:00:00 Completed [facility] Influenza High Dose 2021-12-27 00:00:00 Completed [facility] Influenza High Dose 2021-12-27 00:00:00 Completed [facility] Influenza High Dose 2021-12-27 00:00:00 Completed [facility] Influenza High Dose 2021-12-27 00:00:00 Completed [facility] Influenza High Dose 2021-12-27 00:00:00 Completed [facility] Influenza High Dose 2021-12-27 00:00:00 Completed [facility] Influenza High Dose 2021-12-27 00:00:00 Completed [facility] Influenza High Dose 2021-12-27 00:00:00 Completed [facility] Influenza High Dose 2021-12-27 00:00:00 Completed [facility] Influenza High Dose 2021-12-27 00:00:00 Completed [facility] Influenza High Dose 2021-12-27 00:00:00 Completed [facility] Influenza High Dose 2021-12-27 00:00:00 Completed [facility] Influenza High Dose 2021-12-27 00:00:00 Completed [facility] Influenza High Dose 2021-12-27 00:00:00 Completed [facility] Influenza High Dose 2021-12-27 00:00:00 Completed [facility] Influenza High Dose 2021-12-27 00:00:00 Completed [facility] Influenza High Dose 2021-12-27 00:00:00 Completed [facility] Influenza, High-Dose, Trivalent, PF (FLUZONE) 2021-12-27 00:00:00 Completed [facility] Influenza Virus Vaccine 2021-12-18 00:00:00 Completed [facility] Influenza Virus Vaccine 2021-12-18 00:00:00 Completed [facility] Influenza Virus Vaccine 2021-12-18 00:00:00 Completed [facility] Influenza Virus Vaccine 2021-12-18 00:00:00 Completed [facility] Influenza Virus Vaccine 2021-12-18 00:00:00 Completed [facility] Influenza Virus Vaccine 2021-12-18 00:00:00 Completed [facility] Influenza Virus Vaccine 2021-12-18 00:00:00 Completed [facility] Influenza Virus Vaccine 2021-12-18 00:00:00 Completed [facility] Influenza Virus Vaccine 2021-12-18 00:00:00 Completed [facility] Influenza Virus Vaccine 2021-12-18 00:00:00 Completed SARS-COV-2 COVID-19 VACCINE - (MODERNA) 2021-09-20 00:00:00 Completed [facility] SARS-COV-2 COVID-19 VACCINE - (MODERNA) 2021-09-20 00:00:00 Completed [facility] SARS-COV-2 COVID-19 VACCINE - (MODERNA) 2021-09-20 00:00:00 Completed [facility] SARS-COV-2 COVID-19 VACCINE - (MODERNA) 2021-09-20 00:00:00 Completed [facility] SARS-COV-2 COVID-19 VACCINE - (MODERNA) 2021-09-20 00:00:00 Completed [facility] SARS-COV-2 COVID-19 VACCINE - (MODERNA) 2021-09-20 00:00:00 Completed [facility] SARS-COV-2 COVID-19 VACCINE - (MODERNA) 2021-09-20 00:00:00 Completed [facility] SARS-COV-2 COVID-19 VACCINE - (MODERNA) 2021-09-20 00:00:00 Completed [facility] SARS-COV-2 COVID-19 VACCINE - (MODERNA) 2021-09-20 00:00:00 Completed [facility] SARS-COV-2 COVID-19 VACCINE - (MODERNA) 2021-09-20 00:00:00 Completed SARS-COV-2 COVID-19 VACCINE - (MODERNA) 2021-04-02 00:00:00 Completed [facility] SARS-COV-2 COVID-19 VACCINE - (MODERNA) 2021-04-02 00:00:00 Completed [facility] SARS-COV-2 COVID-19 VACCINE - (MODERNA) 2021-04-02 00:00:00 Completed [facility] SARS-COV-2 COVID-19 VACCINE - (MODERNA) 2021-04-02 00:00:00 Completed [facility] SARS-COV-2 COVID-19 VACCINE - (MODERNA) 2021-04-02 00:00:00 Completed [facility] SARS-COV-2 COVID-19 VACCINE - (MODERNA) 2021-04-02 00:00:00 Completed [facility] SARS-COV-2 COVID-19 VACCINE - (MODERNA) 2021-04-02 00:00:00 Completed [facility] SARS-COV-2 COVID-19 VACCINE - (MODERNA) 2021-04-02 00:00:00 Completed [facility] SARS-COV-2 COVID-19 VACCINE - (MODERNA) 2021-04-02 00:00:00 Completed [facility] SARS-COV-2 COVID-19 VACCINE - (MODERNA) 2021-04-02 00:00:00 Completed Influenza High Dose Quad 2020-12-27 00:00:00 Completed [facility] Influenza High Dose Quad 2020-12-27 00:00:00 Completed [facility] Influenza High Dose Quad 2020-12-27 00:00:00 Completed [facility] Influenza High Dose Quad 2020-12-27 00:00:00 Completed [facility] Influenza High Dose Quad 2020-12-27 00:00:00 Completed [facility] Influenza High Dose Quad 2020-12-27 00:00:00 Completed [facility] Influenza High Dose Quad 2020-12-27 00:00:00 Completed [facility] Influenza High Dose Quad 2020-12-27 00:00:00 Completed [facility] Influenza High Dose Quad 2020-12-27 00:00:00 Completed [facility] Influenza High Dose Quad 2020-12-27 00:00:00 Completed SARS-COV-2 COVID-19 MODERNA 12+ YRS VACCINE 2020-06-07 00:00:00 Completed [facility] SARS-COV-2 COVID-19 MODERNA 12+ YRS VACCINE 2020-06-07 00:00:00 Completed [facility] SARS-COV-2 COVID-19 MODERNA 12+ YRS VACCINE 2020-06-07 00:00:00 Completed [facility] SARS-COV-2 COVID-19 MODERNA 12+ YRS VACCINE 2020-06-07 00:00:00 Completed [facility] SARS-COV-2 COVID-19 MODERNA 12+ YRS VACCINE 2020-06-07 00:00:00 Completed [facility] SARS-COV-2 COVID-19 MODERNA 12+ YRS VACCINE 2020-06-07 00:00:00 Completed [facility] SARS-COV-2 COVID-19 MODERNA 12+ YRS VACCINE 2020-06-07 00:00:00 Completed [facility] SARS-COV-2 COVID-19 MODERNA 12+ YRS VACCINE 2020-06-07 00:00:00 Completed [facility] SARS-COV-2 COVID-19 MODERNA 12+ YRS VACCINE 2020-06-07 00:00:00 Completed [facility] SARS-COV-2 COVID-19 MODERNA 12+ YRS VACCINE 2020-06-07 00:00:00 Completed [facility] SARS-COV-2 COVID-19 MODERNA 12+ YRS VACCINE 2020-06-07 00:00:00 Completed [facility] SARS-COV-2 COVID-19 MODERNA 12+ YRS VACCINE 2020-06-07 00:00:00 Completed [facility] SARS-COV-2 COVID-19 MODERNA 12+ YRS VACCINE 2020-06-07 00:00:00 Completed [facility] SARS-COV-2 COVID-19 MODERNA 12+ YRS VACCINE 2020-06-07 00:00:00 Completed [facility] SARS-COV-2 COVID-19 MODERNA 12+ YRS VACCINE 2020-06-07 00:00:00 Completed [facility] SARS-COV-2 COVID-19 MODERNA 12+ YRS VACCINE 2020-06-07 00:00:00 Completed [facility] SARS-COV-2 COVID-19 MODERNA 12+ YRS VACCINE 2020-06-07 00:00:00 Completed [facility] SARS-COV-2 COVID-19 MODERNA 12+ YRS VACCINE 2020-06-07 00:00:00 Completed [facility] SARS-COV-2 COVID-19 MODERNA 12+ YRS VACCINE 2020-06-07 00:00:00 Completed [facility] SARS-COV-2 COVID-19 MODERNA 12+ YRS VACCINE 2020-06-07 00:00:00 Completed [facility] SARS-COV-2 COVID-19 MODERNA 12+ YRS VACCINE 2020-06-07 00:00:00 Completed [facility] SARS-COV-2 COVID-19 MODERNA 12+ YRS VACCINE 2020-06-07 00:00:00 Completed [facility] SARS-COV-2 COVID-19 MODERNA 12+ YRS VACCINE 2020-06-07 00:00:00 Completed [facility] SARS-COV-2 COVID-19 MODERNA 12+ YRS VACCINE 2020-06-07 00:00:00 Completed [facility] SARS-COV-2 COVID-19 MODERNA 12+ YRS VACCINE 2020-06-07 00:00:00 Completed [facility] SARS-COV-2 COVID-19 MODERNA 12+ YRS VACCINE 2020-05-10 00:00:00 Completed [facility] SARS-COV-2 COVID-19 MODERNA 12+ YRS VACCINE 2020-05-10 00:00:00 Completed [facility] SARS-COV-2 COVID-19 MODERNA 12+ YRS VACCINE 2020-05-10 00:00:00 Completed [facility] SARS-COV-2 COVID-19 MODERNA 12+ YRS VACCINE 2020-05-10 00:00:00 Completed [facility] SARS-COV-2 COVID-19 MODERNA 12+ YRS VACCINE 2020-05-10 00:00:00 Completed [facility] SARS-COV-2 COVID-19 MODERNA 12+ YRS VACCINE 2020-05-10 00:00:00 Completed [facility] SARS-COV-2 COVID-19 MODERNA 12+ YRS VACCINE 2020-05-10 00:00:00 Completed [facility] SARS-COV-2 COVID-19 MODERNA 12+ YRS VACCINE 2020-05-10 00:00:00 Completed [facility] SARS-COV-2 COVID-19 MODERNA 12+ YRS VACCINE 2020-05-10 00:00:00 Completed [facility] SARS-COV-2 COVID-19 MODERNA 12+ YRS VACCINE 2020-05-10 00:00:00 Completed [facility] SARS-COV-2 COVID-19 MODERNA 12+ YRS VACCINE 2020-05-10 00:00:00 Completed [facility] SARS-COV-2 COVID-19 MODERNA 12+ YRS VACCINE 2020-05-10 00:00:00 Completed [facility] SARS-COV-2 COVID-19 MODERNA 12+ YRS VACCINE 2020-05-10 00:00:00 Completed [facility] SARS-COV-2 COVID-19 MODERNA 12+ YRS VACCINE 2020-05-10 00:00:00 Completed [facility] SARS-COV-2 COVID-19 MODERNA 12+ YRS VACCINE 2020-05-10 00:00:00 Completed [facility] SARS-COV-2 COVID-19 MODERNA 12+ YRS VACCINE 2020-05-10 00:00:00 Completed [facility] SARS-COV-2 COVID-19 MODERNA 12+ YRS VACCINE 2020-05-10 00:00:00 Completed [facility] SARS-COV-2 COVID-19 MODERNA 12+ YRS VACCINE 2020-05-10 00:00:00 Completed [facility] SARS-COV-2 COVID-19 MODERNA 12+ YRS VACCINE 2020-05-10 00:00:00 Completed [facility] SARS-COV-2 COVID-19 MODERNA 12+ YRS VACCINE 2020-05-10 00:00:00 Completed [facility] SARS-COV-2 COVID-19 MODERNA 12+ YRS VACCINE 2020-05-10 00:00:00 Completed [facility] SARS-COV-2 COVID-19 MODERNA 12+ YRS VACCINE 2020-05-10 00:00:00 Completed [facility] SARS-COV-2 COVID-19 MODERNA 12+ YRS VACCINE 2020-05-10 00:00:00 Completed [facility] SARS-COV-2 COVID-19 MODERNA 12+ YRS VACCINE 2020-05-10 00:00:00 Completed [facility] SARS-COV-2 COVID-19 MODERNA 12+ YRS VACCINE 2020-05-10 00:00:00 Completed [facility] Influenza High Dose Quad 2019-12-09 00:00:00 Completed [facility] Influenza High Dose Quad 2019-12-09 00:00:00 Completed [facility] Influenza High Dose Quad 2019-12-09 00:00:00 Completed [facility] Influenza High Dose Quad 2019-12-09 00:00:00 Completed [facility] Influenza High Dose Quad 2019-12-09 00:00:00 Completed [facility] Influenza High Dose Quad 2019-12-09 00:00:00 Completed [facility] Influenza High Dose Quad 2019-12-09 00:00:00 Completed [facility] Influenza High Dose Quad 2019-12-09 00:00:00 Completed [facility] Influenza High Dose Quad 2019-12-09 00:00:00 Completed [facility] Influenza High Dose Quad 2019-12-09 00:00:00 Completed [facility] Influenza High Dose Quad 2019-12-09 00:00:00 Completed [facility] Influenza High Dose Quad 2019-12-09 00:00:00 Completed [facility] Influenza High Dose Quad 2019-12-09 00:00:00 Completed [facility] Influenza High Dose Quad 2019-12-09 00:00:00 Completed [facility] Influenza High Dose Quad 2019-12-09 00:00:00 Completed [facility] Influenza High Dose Quad 2019-12-09 00:00:00 Completed [facility] Influenza High Dose Quad 2019-12-09 00:00:00 Completed [facility] Influenza High Dose Quad 2019-12-09 00:00:00 Completed [facility] Influenza High Dose Quad 2019-12-09 00:00:00 Completed [facility] Influenza High Dose Quad 2019-12-09 00:00:00 Completed [facility] Influenza High Dose Quad 2019-12-09 00:00:00 Completed [facility] Influenza High Dose Quad 2019-12-09 00:00:00 Completed [facility] Influenza High Dose Quad 2019-12-09 00:00:00 Completed [facility] Influenza High Dose Quad 2019-12-09 00:00:00 Completed [facility] Influenza High Dose Quad 2019-12-09 00:00:00 Completed [facility] Influenza High Dose 2018-12-24 00:00:00 Completed [facility] Influenza High Dose 2018-12-24 00:00:00 Completed [facility] Influenza High Dose 2018-12-24 00:00:00 Completed [facility] Influenza High Dose 2018-12-24 00:00:00 Completed [facility] Influenza High Dose 2018-12-24 00:00:00 Completed [facility] Influenza High Dose 2018-12-24 00:00:00 Completed [facility] Influenza High Dose 2018-12-24 00:00:00 Completed [facility] Influenza High Dose 2018-12-24 00:00:00 Completed [facility] Influenza High Dose 2018-12-24 00:00:00 Completed [facility] Influenza High Dose 2018-12-24 00:00:00 Completed [facility] Influenza High Dose 2018-12-24 00:00:00 Completed [facility] Influenza High Dose 2018-12-24 00:00:00 Completed [facility] Influenza High Dose 2018-12-24 00:00:00 Completed [facility] Influenza High Dose 2018-12-24 00:00:00 Completed [facility] Influenza High Dose 2018-12-24 00:00:00 Completed [facility] Influenza High Dose 2018-12-24 00:00:00 Completed [facility] Influenza High Dose 2018-12-24 00:00:00 Completed [facility] Influenza High Dose 2018-12-24 00:00:00 Completed [facility] Influenza High Dose 2018-12-24 00:00:00 Completed [facility] Influenza High Dose 2018-12-24 00:00:00 Completed [facility] Influenza High Dose 2018-12-24 00:00:00 Completed [facility] Influenza High Dose 2018-12-24 00:00:00 Completed [facility] Influenza High Dose 2018-12-24 00:00:00 Completed [facility] Influenza High Dose 2018-12-24 00:00:00 Completed [facility] Influenza, High-Dose, Trivalent, PF (FLUZONE) 2018-12-24 00:00:00 Completed Influenza High Dose 2017-12-24 00:00:00 Completed [facility] Influenza High Dose 2017-12-24 00:00:00 Completed [facility] Influenza High Dose 2017-12-24 00:00:00 Completed [facility] Influenza High Dose 2017-12-24 00:00:00 Completed [facility] Influenza High Dose 2017-12-24 00:00:00 Completed [facility] Influenza High Dose 2017-12-24 00:00:00 Completed [facility] Influenza High Dose 2017-12-24 00:00:00 Completed [facility] Influenza High Dose 2017-12-24 00:00:00 Completed [facility] Influenza High Dose 2017-12-24 00:00:00 Completed [facility] Influenza High Dose 2017-12-24 00:00:00 Completed [facility] Influenza High Dose 2017-12-24 00:00:00 Completed [facility] Influenza High Dose 2017-12-24 00:00:00 Completed [facility] Influenza High Dose 2017-12-24 00:00:00 Completed [facility] Influenza High Dose 2017-12-24 00:00:00 Completed [facility] Influenza High Dose 2017-12-24 00:00:00 Completed [facility] Influenza High Dose 2017-12-24 00:00:00 Completed [facility] Influenza High Dose 2017-12-24 00:00:00 Completed [facility] Influenza High Dose 2017-12-24 00:00:00 Completed [facility] Influenza High Dose 2017-12-24 00:00:00 Completed [facility] Influenza High Dose 2017-12-24 00:00:00 Completed [facility] Influenza High Dose 2017-12-24 00:00:00 Completed [facility] Influenza High Dose 2017-12-24 00:00:00 Completed [facility] Influenza High Dose 2017-12-24 00:00:00 Completed [facility] Influenza High Dose 2017-12-24 00:00:00 Completed [facility] Influenza, High-Dose, Trivalent, PF (FLUZONE) 2017-12-24 00:00:00 Completed [facility] TDAP 2017-04-05 00:00:00 Completed [facility] TDAP 2017-04-05 00:00:00 Completed [facility] TDAP 2017-04-05 00:00:00 Completed [facility] TDAP 2017-04-05 00:00:00 Completed [facility] TDAP 2017-04-05 00:00:00 Completed [facility] TDAP 2017-04-05 00:00:00 Completed [facility] TDAP 2017-04-05 00:00:00 Completed [facility] TDAP 2017-04-05 00:00:00 Completed [facility] TDAP 2017-04-05 00:00:00 Completed [facility] TDAP 2017-04-05 00:00:00 Completed [facility] TDAP 2017-04-05 00:00:00 Completed [facility] TDAP 2017-04-05 00:00:00 Completed [facility] TDAP 2017-04-05 00:00:00 Completed [facility] TDAP 2017-04-05 00:00:00 Completed [facility] TDAP 2017-04-05 00:00:00 Completed [facility] TDAP 2017-04-05 00:00:00 Completed [facility] TDAP 2017-04-05 00:00:00 Completed [facility] TDAP 2017-04-05 00:00:00 Completed [facility] TDAP 2017-04-05 00:00:00 Completed [facility] TDAP 2017-04-05 00:00:00 Completed [facility] TDAP 2017-04-05 00:00:00 Completed [facility] TDAP 2017-04-05 00:00:00 Completed [facility] TDAP 2017-04-05 00:00:00 Completed [facility] TDAP 2017-04-05 00:00:00 Completed [facility] TDAP 2017-04-05 00:00:00 Completed [facility] TDAP Unknown Completed [facility] Influenza High Dose Unknown Completed [facility] SARS-COV-2 COVID-19 MODERNA 12+ YRS VACCINE Unknown Completed [facility] Influenza High Dose Quad Unknown Completed [facility] Influenza Virus Vaccine Unknown Completed [facility] TDAP Unknown Completed [facility] Influenza High Dose Unknown Completed [facility] SARS-COV-2 COVID-19 MODERNA 12+ YRS VACCINE Unknown Completed [facility] Influenza High Dose Quad Unknown Completed [facility] Influenza Virus Vaccine Unknown Completed [facility] TDAP Unknown Completed [facility] Influenza High Dose Unknown Completed [facility] SARS-COV-2 COVID-19 MODERNA 12+ YRS VACCINE Unknown Completed [facility] Influenza High Dose Quad Unknown Completed [facility] Influenza Virus Vaccine Unknown Completed [facility] TDAP Unknown Completed [facility] Influenza High Dose Unknown Completed [facility] SARS-COV-2 COVID-19 MODERNA 12+ YRS VACCINE Unknown Completed [facility] Influenza High Dose Quad Unknown Completed [facility] Influenza Virus Vaccine Unknown Completed [facility] Remdesivir Unknown Completed [facility] Remdesivir Unknown [facility] TDAP Unknown Completed [facility] Influenza High Dose Unknown Completed [facility] SARS-COV-2 COVID-19 MODERNA 12+ YRS VACCINE Unknown Completed [facility] Influenza High Dose Quad Unknown Completed [facility] Influenza Virus Vaccine Unknown Completed [facility] Remdesivir Unknown [facility] Remdesivir Unknown Com[facility] TDAP Unknown Completed [facility] Influenza High Dose Unknown Completed [facility] SARS-COV-2 COVID-19 MODERNA 12+ YRS VACCINE Unknown Completed [facility] Influenza High Dose Quad Unknown Completed [facility] Influenza Virus Vaccine Unknown Completed [facility] Remdesivir Unknown [facility] Remdesivir Unknown Completed [facility] TDAP Unknown Completed [facility] Influenza High Dose Unknown Completed [facility] SARS-COV-2 COVID-19 MODERNA 12+ YRS VACCINE Unknown Completed [facility] Influenza High Dose Quad Unknown Completed [facility] Influenza Virus Vaccine Unknown Completed [facility] Remdesivir Unknown Completed [facility] Remdesivir Unknown Completed [facility] TDAP Unknown Completed [facility] Influenza, High-Dose, Trivalent, PF (FLUZONE) Unknown Completed [facility] SARS-COV-2 COVID-19 VACCINE - (MODERNA) Unknown [facility] Influenza High Dose Quad Unknown Completed [facility] Influenza Virus Vaccine Unknown Completed [facility] Remdesivir Unknown Completed [facility] Remdesivir Unknown Completed [facility] Vital Signs Vital Name Observation Time Observation Value Comments S ource Systolic blood pressure 2023-12-31 06:44:00 128 mm[Hg] [facility] Diastolic blood pressure 2023-12-31 06:44:00 72 mm[Hg] [facility] Heart rate 2023-12-31 06:44:00 82 /min [facility] Body temperature 2023-12-31 06:44:00 36.67 Ntia [facility] Respiratory rate 2023-12-31 06:44:00 16 /min [facility] Oxygen saturation in Arterial blood by Pulse oximetry 2023-12-31 06:44:00 100 /min [facility] Body height 2023-12-31 02:28:00 177.8 cm [facility] Body weight 2023-12-31 02:28:00 82.101 kg [facility] BMI 2023-12-31 02:28:00 25.97 kg/m2 [facility] Systolic blood pressure 2023-03-02 01:30:00 96 mm[Hg] [facility] Diastolic blood pressure 2023-03-02 01:30:00 52 mm[Hg] [facility] Heart rate 2023-03-02 01:30:00 68 /min [facility] Body temperature 2023-03-02 01:30:00 36.11 Nita [facility] Respiratory rate 2023-03-02 01:30:00 8 /min [facility] Oxygen saturation in Arterial blood by Pulse oximetry 2023-03-02 01:30:00 98 /min [facility] Body height 2023 21:02:00 182.9 cm [facility] Body weight 2023 21:02:00 74.39 kg [facility] BMI 2023 21:02:00 22.24 kg/m2 [facility] Systolic blood pressure 2023-02-24 21:44:00 99 mm[Hg] [facility] Diastolic blood pressure 2023-02-24 21:44:00 55 mm[Hg] [facility] Heart rate 2023-02-24 21:44:00 75 /min [facility] Body temperature 2023-02-24 21:44:00 36.78 Nita [facility] Respiratory rate 2023-02-24 21:44:00 16 /min [facility] Body height 2023-02-24 21:44:00 182.9 cm [facility] Body weight 2023-02-24 21:44:00 74.39 kg [facility] BMI 2023-02-24 21:44:00 22.24 kg/m2 [facility] Oxygen saturation in Arterial blood by Pulse oximetry 2023-02-24 21:44:00 98 /min [facility] Systolic blood pressure 2023-02-06 16:00:00 109 mm[Hg] [facility] Diastolic blood pressure 2023-02-06 16:00:00 75 mm[Hg] [facility] Heart rate 2023-02-06 16:00:00 80 /min [facility] Body temperature 2023-02-06 16:00:00 36.28 Nita [facility] Respiratory rate 2023-02-06 16:00:00 17 /min [facility] Oxygen saturation in Arterial blood by Pulse oximetry 2023-02-06 16:00:00 96 /min [facility] Body weight 2023-02-06 08:22:00 74.481 kg [facility] BMI 2023-02-06 08:22:00 22.27 kg/m2 [facility] Body height 2023-02-02 21:14:00 182.9 cm [facility] Systolic blood pressure 2023-01-29 16:38:00 108 mm[Hg] [facility] Diastolic blood pressure 2023-01-29 16:38:00 48 mm[Hg] [facility] Heart rate 2023-01-29 16:38:00 66 /min [facility] Body temperature 2023-01-29 16:38:00 37.06 Nita [facility] Oxygen saturation in Arterial blood by Pulse oximetry 2023-01-29 16:38:00 95 /min [facility] Respiratory rate 2023-01-29 09:17:00 16 /min [facility] Body weight 2023-01-29 09:17:00 73.982 kg [facility] BMI 2023-01-29 09:17:00 22.12 kg/m2 [facility] Body height 2023-01-25 23:25:00 182.9 cm [facility] Systolic blood pressure 2023-01-20 22:00:00 123 mm[Hg] [facility] Diastolic blood pressure 2023-01-20 22:00:00 80 mm[Hg] [facility] Heart rate 2023-01-20 22:00:00 82 /min [facility] Body temperature 2023-01-20 22:00:00 36.89 Nita [facility] Respiratory rate 2023-01-20 22:00:00 16 /min [facility] Oxygen saturation in Arterial blood by Pulse oximetry 2023-01-20 22:00:00 97 /min [facility] Body height 2023-01-20 19:16:00 167.6 cm [facility] Body weight 2023-01-20 19:16:00 80 kg [facility] BMI 2023-01-20 19:16:00 28.47 kg/m2 [facility] Systolic blood pressure 2022-12-01 16:54:00 125 mm[Hg] [facility] Diastolic blood pressure 2022-12-01 16:54:00 79 mm[Hg] [facility] Heart rate 2022-12-01 16:54:00 94 /min [facility] Alicee [facility] Body temperature 2022-12-01 16:54:00 36.56 Nita [facility] Respiratory rate 2022-12-01 16:54:00 18 /min [facility] Oxygen saturation in Arterial blood by Pulse oximetry 2022-12-01 16:54:00 94 /min [facility] Body weight 2022-12-01 09:25:00 70.988 kg [facility] BMI 2022-12-01 09:25:00 21.23 kg/m2 [facility] Body height 2022-11-30 01:41:00 182.9 cm [facility] Systolic blood pressure 2022-11-26 22:00:00 126 mm[Hg] [facility] Diastolic blood pressure 2022-11-26 22:00:00 64 mm[Hg] [facility] Heart rate 2022-11-26 22:00:00 80 /min Un[facility] Oxygen saturation in Arterial blood by Pulse oximetry 2022-11-26 22:00:00 97 /min [facility] Respiratory rate 2022-11-26 21:00:00 18 /min [facility] Body temperature 2022-11-26 19:03:00 36.5 Nita [facility] Body height 2022-11-26 19:03:00 188 cm [facility] Body weight 2022-11-26 19:03:00 95.255 kg [facility] BMI 2022-11-26 19:03:00 26.96 kg/m2 [facility] Body temperature 2022-10-30 17:00:00 36.94 Nita [facility] Heart rate 2022-10-30 16:32:00 93 /min Un[facility] Respiratory rate 2022-10-30 16:32:00 18 /min [facility] Oxygen saturation in Arterial blood by Pulse oximetry 2022-10-30 16:32:00 97 /min [facility] Systolic blood pressure 2022-10-30 16:00:00 114 mm[Hg] [facility] Diastolic blood pressure 2022-10-30 16:00:00 87 mm[Hg] [facility] Body weight 2022-10-29 21:00:00 70.988 kg [facility] BMI 2022-10-29 21:00:00 22.46 kg/m2 [facility] Body height 2022-10-28 03:11:00 177.8 cm [facility] Systolic blood pressure 2022-08-27 19:48:00 97 mm[Hg] [facility] Diastolic blood pressure 2022-08-27 19:48:00 66 mm[Hg] [facility] Heart rate 2022-08-27 19:48:00 78 /min [facility] Respiratory rate 2022-08-27 19:48:00 18 /min [facility] Body height 2022-08-27 19:48:00 182.9 cm [facility] Body weight 2022-08-27 19:48:00 70.761 kg [facility] BMI 2022-08-27 19:48:00 21.16 kg/m2 [facility] Systolic blood pressure 2022-07-26 16:20:00 103 mm[Hg] [facility] Diastolic blood pressure 2022-07-26 16:20:00 67 mm[Hg] [facility] Heart rate 2022-07-26 16:20:00 94 /min Un[facility] Body temperature 2022-07-26 16:20:00 36.94 Nita [facility] Respiratory rate 2022-07-26 16:20:00 20 /min [facility] Oxygen saturation in Arterial blood by Pulse oximetry 2022-07-26 16:20:00 94 /min [facility] Body weight 2022-07-26 09:30:00 70.988 kg [facility] BMI 2022-07-26 09:30:00 21.23 kg/m2 [facility] Body height 2022-07-21 02:02:00 182.9 cm [facility] Systolic blood pressure 2022-07-18 19:48:00 111 mm[Hg] [facility] Diastolic blood pressure 2022-07-18 19:48:00 61 mm[Hg] [facility] Heart rate 2022-07-18 19:48:00 69 /min [facility] Body temperature 2022-07-18 19:48:00 36.44 Nita [facility] Respiratory rate 2022-07-18 19:48:00 18 /min [facility] Body height 2022-07-18 19:48:00 185.4 cm [facility] Body weight 2022-07-18 19:48:00 74.39 kg [facility] BMI 2022-07-18 19:48:00 21.64 kg/m2 [facility] Oxygen saturation in Arterial blood by Pulse oximetry 2022-07-18 19:48:00 100 /min [facility] Systolic blood pressure 2022-06-10 20:00:00 140 mm[Hg] [facility] Diastolic blood pressure 2022-06-10 20:00:00 56 mm[Hg] [facility] Heart rate 2022-06-10 20:00:00 81 /min Un[facility] Body temperature 2022-06-10 20:00:00 36.89 Nita [facility] Respiratory rate 2022-06-10 20:00:00 14 /min [facility] Oxygen saturation in Arterial blood by Pulse oximetry 2022-06-10 20:00:00 100 /min [facility] Body height 2022-06-10 16:20:00 182.9 cm [facility] Body weight 2022-06-10 16:20:00 74.39 kg [facility] BMI 2022-06-10 16:20:00 22.24 kg/m2 [facility] Systolic blood pressure 2022-05-28 17:22:00 112 mm[Hg] [facility] Diastolic blood pressure 2022-05-28 17:22:00 66 mm[Hg] [facility] Heart rate 2022-05-28 17:22:00 83 /min [facility] Body temperature 2022-05-28 17:22:00 36.28 Nita [facility] Respiratory rate 2022-05-28 17:22:00 18 /min [facility] Oxygen saturation in Arterial blood by Pulse oximetry 2022-05-28 17:22:00 98 /min [facility] Body weight 2022-05-28 10:02:00 74.481 kg [facility] BMI 2022-05-28 10:02:00 22.27 kg/m2 [facility] Body height 2022-05-27 04:42:00 182.9 cm [facility] Systolic blood pressure 2022-05-05 22:34:00 102 mm[Hg] [facility] Diastolic blood pressure 2022-05-05 22:34:00 58 mm[Hg] [facility] Heart rate 2022-05-05 22:34:00 79 /min [facility] Body temperature 2022-05-05 22:34:00 36.22 Nita [facility] Respiratory rate 2022-05-05 22:34:00 18 /min [facility] Oxygen saturation in Arterial blood by Pulse oximetry 2022-05-05 22:34:00 94 /min [facility] Body weight 2022-05-05 10:07:00 73.982 kg [facility] BMI 2022-05-05 10:07:00 20.94 kg/m2 [facility] Body height 2022-05-03 04:50:00 188 cm [facility] Systolic blood pressure 2021-12-05 19:40:00 115 mm[Hg] [facility] Diastolic blood pressure 2021-12-05 19:40:00 73 mm[Hg] [facility] Heart rate 2021-12-05 19:40:00 59 /min [facility] 2021-12-05 19:40:00 77.701 kg [facility] BMI 2021-12-05 19:40:00 23.89 kg/m2 [facility] Oxygen saturation in Arterial blood by Pulse oximetry 2021-12-05 19:40:00 97 /min [facility] Procedures Procedure Date / Time Performed Performing Clinician Source CT ABDOMEN PELVIS W CONTRAST 2023-12-31 04:45:00 Isaura Beck [facility] CT CHEST PULMONARY ANGIOGRAM 2023-12-31 04:45:00 Isaura Beck [facility] MAGNESIUM 2023-12-31 03:14:00 Isaura Beck [facility] COMP. METABOLIC PANEL ([id number]) 2023-12-31 03:14:00 Isaura Beck [facility] CBC WITH DIFF 2023-12-31 03:14:00 Isaura Beck [facility] URINALYSIS 2023-12-31 03:14:00 Isaura Beck [facility] XR ANKLE 3+ VW RIGHT 2023 23:02:00 Joseph Melendez [facility] COMP. METABOLIC PANEL ([id number]) 2023 21:37:00 Joseph Melendez [facility] CBC WITH DIFF 2023 21:37:00 Joseph Melendez [facility] BASIC METABOLIC PANEL (NA, K, CL, CO2, GLUCOSE, BUN, CREATININE, CA) 2023-02-24 21:45:00 Nicanor Lentz [facility] AUTHORIZATION FOR RELEASE OF PHI 2023-02-20 06:01:00 Doctor Unassigned, [place] [facility] BASIC METABOLIC PANEL (NA, K, CL, CO2, GLUCOSE, BUN, CREATININE, CA) 2023-02-05 08:20:00 Andreina Childs [facility] CBC WITH DIFF 2023-02-05 08:20:00 Andreina Childs [facility] BASIC METABOLIC PANEL (NA, K, CL, CO2, GLUCOSE, BUN, CREATININE, CA) 2023-02-04 09:27:00 Andreina Childs Alysa [facility] CBC WITH DIFF 2023-02-04 09:27:00 Amadeo [facility] JESSE AURIS SURVEILLANCE BY PCR (INFECTION CONTROL PURPOSES) 2023-02-03 21:48:00 Andreina Childs [facility] URINALYSIS 2023-02-03 14:42:00 Josefina Dasilva [facility] CBC WITH DIFF 2023-02-03 11:25:00 Marlena Rios [facility] Alicemarianne [facility] BASIC METABOLIC PANEL (NA, K, CL, CO2, GLUCOSE, BUN, CREATININE, CA) 2023-02-03 10:19:00 Marlena Rios [facility] PROCALCITONIN 2023-02-03 10:19:00 Josefina Dasilva [facility] XR CHEST 1 VW 2023-02-02 19:00:15 Andreina Uriarte [facility] COMP. METABOLIC PANEL ([id number]) 2023-02-02 16:53:00 Andreina Uriarte [facility] CBC WITH DIFF 2023-02-02 16:53:00 Andreina Uriarte [facility] RAPID INFLUENZA A/B 2023-02-02 16:53:00 Andreina Uriarte [facility] COVID-19 (ID NOW RAPID TESTING) 2023-02-02 16:53:00 Andreina Uriarte [facility] LAB ONLY COVID INTERPRETATION 2023-02-02 16:53:00 Andreina Uriarte [facility] XR CHEST 1 VW 2023-01-28 18:01:19 Marlena Rios [facility] BASIC METABOLIC PANEL (NA, K, CL, CO2, GLUCOSE, BUN, CREATININE, CA) 2023-01-27 10:13:00 Andreina Childs [facility] VANCOMYCIN TROUGH 2023-01-27 10:13:00 Angelica Braga [facility] CBC WITH DIFF 2023-01-27 10:13:00 Andreina Childs Alysa [facility] WOUND/ASPIRATE OR ABSCESS CULTURE 2023-01-26 18:02:00 Jeanine [facility] WOUND CULTURE 2023-01-26 18:02:00 Keerthi Solorzano [facility] MRSA / MSSA SCREEN BY ARNOLD SALDANA 2023-01-25 23:19:00 Marques Hines [facility] CBC WITH DIFF 2023-01-25 20:41:00 Virginia Soni [facility] LACTIC ACID WHOLE BLOOD 2023-01-25 20:41:00 Virginia Soni [facility] BLOOD CULTURE SCREEN 2023-01-25 20:41:00 Lavon Soni [facility] COMP. METABOLIC PANEL ([id number]) 2023-01-25 20:41:00 Virginia Soni [facility] SEDIMENTATION RATE 2023-01-25 20:41:00 Marco A Soni [facility] XR ANKLE 3+ VW RIGHT 2023-01-25 20:38:12 Lavon Soni [facility] CONSENT/REFUSAL FOR DIAGNOSIS AND TREATMENT 2023-01-25 20:04:39 Doctor Unassigned, [place] [facility] EMERGENCY DEPARTMENT DOCUMENTS 2023-01-25 05:01:00 Doctor Unassigned, [place] [facility] RAPID STREP SCREEN FOR GROUP A 2023-01-20 21:38:00 Virginia Soni [facility] CT HEAD WO CONTRAST 2023-01-20 19:55:01 Hali Soni ra [facility] XR CHEST 1 VW 2023-01-20 19:54:03 Virginia Soni U [facility] MAGNESIUM 2023-01-20 19:24:00 Virginia Soni [facility] TROPONIN I 2023-01-20 19:24:00 Virginia Soni [facility] COMP. METABOLIC PANEL ([id number]) 2023-01-20 19:24:00 Virginia Soni [facility] CBC WITH DIFF 2023-01-20 19:24:00 Virginia Soni [facility] RAPID INFLUENZA A/B 2023-01-20 19:24:00 Hali Soni ra [facility] N-TERMINAL PRO-BNP 2023-01-20 19:24:00 Marco A Soni [facility] COVID-19 (ID NOW RAPID TESTING) 2023-01-20 19:24:00 Virginia Soni [facility] BASIC METABOLIC PANEL (NA, K, CL, CO2, GLUCOSE, BUN, CREATININE, CA) 2022-12-01 11:21:00 Andreina Childs [facility] XR ANKLE 3+ VW RIGHT 2022-11-30 01:09:00 Juno Verdin [facility] XR KUB 2022-11-29 23:28:59 Juno Verdin [facility] COMP. METABOLIC PANEL ([id number]) 2022-11-29 23:10:00 Juno Verdin [facility] CBC WITH DIFF 2022-11-29 23:10:00 Juno Verdin [facility] CT ABDOMEN PELVIS W CONTRAST 2022-11-26 21:46:20 Frankie [facility] COMP. METABOLIC PANEL ([id number]) 2022-11-26 19:54:00 Frankie Olman [facility] CBC WITH DIFF 2022-11-26 19:54:00 Frankie Olman [facility] ASSIGNMENT OF BENEFITS 2022-11-26 19:35:58 Docto r Unassigned, [place] [facility] CONSENT/REFUSAL FOR DIAGNOSIS AND TREATMENT 2022-11-26 19:35:18 Doctor Unassigned, [place] [facility] XR CHEST 1 2022-11-26 19:29:39 Frankie [facility] CONSENT/REFUSAL FOR DIAGNOSIS AND TREATMENT 2022-11-26 19:13:37 Doctor Unassigned, [place] [facility] CONSENT/REFUSAL FOR DIAGNOSIS AND TREATMENT 2022-11-26 19:09:05 Doctor Unassigned, [place] [facility] EXTERNAL PROVIDER - ADC CARDIOLOGY 2022-11-21 05:01:00 Doctor Unassigned, [place] [facility] XR CHEST 1 2022-10-30 11:30:00 Aziza Echevarria [facility] MAGNESIUM 2022-10-30 09:09:00 [facility] (NA, K, CL, CO2, GLUCOSE, BUN, CREATININE, CA) 2022-10-30 09:09:00 [facility] WITH DIFF 2022-10-30 09:09:00 Aziza Echevarria [facility] POCT GLUCOSE (AUTOMATED) 2022-10-29 13:16:00 Chaz Roberts [facility] MAGNESIUM 2022-10-29 07:50:00 Wale [facility] BASIC METABOLIC PANEL (NA, K, CL, CO2, GLUCOSE, BUN, CREATININE, CA) 2022-10-29 07:50:00 [facility] CBC WITH DIFF 2022-10-29 07:50:00 Aziza Echevarria [facility] POCT GLUCOSE (AUTOMATED) 2022-10-29 01:59:00 Harvinder Chaz [facility] POCT GLUCOSE (AUTOMATED) 2022-10-28 21:26:00 Harvinder [facility] POCT GLUCOSE (AUTOMATED) 2022-10-28 16:56:00 Harvinder [facility] LEGIONELLA AND STREPTOCOCCUS PNEUMONIAE URINARY ANTIGENS 2022-10-28 16:05:00 Harvinder [facility] JESSE AURIS SURVEILLANCE BY PCR (INFECTION CONTROL PURPOSES) 2022-10-28 15:51:00 Lydia Tristan [facility] BASIC METABOLIC PANEL (NA, K, CL, CO2, GLUCOSE, BUN, CREATININE, CA) 2022-10-28 15:45:00 [facility] CBC WITH DIFF 2022-10-28 15:45:00 Aziza Echevarria [facility] LACTIC ACID WHOLE BLOOD 2022-10-28 15:32:00 Abu Lydia Sherman [facility] PROCALCITONIN 2022-10-28 15:32:00 Lydia Tristan [facility] POCT GLUCOSE (AUTOMATED) 2022-10-28 13:54:00 Chaz Roberts [facility] BLOOD CULTURE SCREEN 2022-10-28 06:55:00 Lashon Beck i [facility] XR CHEST 1 VW 2022-10-28 04:21:00 Marcie Nickerson [facility] THROAT CULTURE 2022-10-28 03:42:00 Krishan [facility] RAPID STREP SCREEN FOR GROUP A 2022-10-28 03:42:00 Krishan [facility] COVID-19 (ID NOW RAPID TESTING) 2022-10-28 03:42:00 Krishan [facility] LAB ONLY COVID INTERPRETATION 2022-10-28 03:42:00 Marcie Nickerson [facility] MAGNESIUM 2022-10-28 03:26:00 Chaz Roberts [facility] TROPONIN I 2022-10-28 03:26:00 Marcie Nickerson Un [facility] COMP. METABOLIC PANEL ([id number]) 2022-10-28 03:26:00 Marcie Nickerson [facility] CBC WITH DIFF 2022-10-28 03:26:00 [facility] GLYCOSYLATED HEMOGLOBIN (A1C) 2022-10-28 03:26:00 Lydia Tritsan [facility] URINALYSIS 2022-10-28 03:26:00 Marcie Nickerson [facility] LACTIC ACID WHOLE BLOOD 2022-10-28 03:26:00 Marcie Nickerson [facility] ASSIGNMENT OF BENEFITS 2022-10-28 03:23:04 Docto r Unassigned, [place] [facility] NOTICE OF PRIVACY PRACTICES 2022-10-28 03:22:29 Doctor Unassigned, [place] [facility] CONSENT/REFUSAL FOR DIAGNOSIS AND TREATMENT 2022-10-28 03:22:10 Doctor Unassigned, [place] [facility] HB ECG ROUTINE & RHYTHM STRIP 2022-10-28 03:09:11 Marcie Nickerson [facility] CT THORAX W CONTRAST 2022-07-25 18:16:16 Juancarlos Rios i [facility] RAPID INFLUENZA A/B 2022-07-25 17:15:00 Marlena Rios [facility] COVID-19 (ID NOW RAPID TESTING) 2022-07-25 17:15:00 Marlena Rios [facility] BASIC METABOLIC PANEL (NA, K, CL, CO2, GLUCOSE, BUN, CREATININE, CA) 2022-07-25 09:46:00 Andreina Childs [facility] CBC WITH DIFF 2022-07-25 09:46:00 Andreina Childs [facility] XR CHEST 1 VW 2022-07-25 00:09:00 Andreina Childs [facility] BASIC METABOLIC PANEL (NA, K, CL, CO2, GLUCOSE, BUN, CREATININE, CA) 2022-07-24 09:31:00 Amadeo Andreina [facility] CBC WITH DIFF 2022-07-24 09:31:00 Andreina Childs [facility] MRSA / MSSA SCREEN BY PCRARNOLD 2022-07-23 21:06:00 Andreina Childs [facility] CBC WITH DIFF 2022-07-22 10:41:00 Leroy Soni [facility] BASIC METABOLIC PANEL (NA, K, CL, CO2, GLUCOSE, BUN, CREATININE, CA) 2022-07-22 09:09:00 Leroy Soni [facility] WOUND/ASPIRATE OR ABSCESS CULTURE 2022-07-21 16:22:00 Alirio Locke [facility] WOUND CULTURE 2022-07-21 16:22:00 Alirio Locke [facility] XR ANKLE <3 VW RIGHT 2022-07-21 12:18:38 Singer [facility] BLOOD CULTURE SCREEN 2022-07-21 02:26:00 Singer [facility] COMP. METABOLIC PANEL ([id number]) 2022-07-21 02:26:00 Singer [facility] SEDIMENTATION RATE 2022-07-21 02:26:00 Singer [facility] CBC WITH DIFF 2022-07-21 02:26:00 Singer [facility] LACTIC ACID WHOLE BLOOD 2022-07-21 02:25:00 , Tatyana [facility] LACTIC ACID WHOLE BLOOD 2022-07-18 20:14:00 , Tatyana [facility] COMP. METABOLIC PANEL ([id number]) 2022-07-18 20:12:00 Singer [facility] SEDIMENTATION RATE 2022-07-18 20:12:00 Singer [facility] CBC WITH DIFF 2022-07-18 20:12:00 Singer [facility] CT ABDOMEN PELVIS W CONTRAST 2022-06-10 18:56:57 Joseph Melendez [facility] XR CHEST 1 VW 2022-06-10 18:39:57 Joseph Melendez [facility] URINALYSIS 2022-06-10 18:30:00 Joseph Melendez [facility] ASSIGNMENT OF BENEFITS 2022-06-10 17:41:23 Docto r Unassigned, [place] [facility] CONSENT/REFUSAL FOR DIAGNOSIS AND TREATMENT 2022-06-10 17:39:47 Doctor Unassigned, [place] [facility] LIPASE 2022-06-10 17:15:00 Joseph Melendez [facility] Alicemarianne [facility] MAGNESIUM 2022-06-10 17:15:00 Joseph Melendez [facility] Alicemarianne [facility] TROPONIN I 2022-06-10 17:15:00 Joseph Melendez [facility] Alicemarianne [facility] COMP. METABOLIC PANEL ([id number]) 2022-06-10 17:15:00 Joseph Melendez Veronica [facility] CBC WITH DIFF 2022-06-10 17:15:00 Joseph Melendez [facility] EXTERNAL PROVIDER RECORDS 2022-06-03 06:01:00 Do ctor Unassigned, [place] [facility] BASIC METABOLIC PANEL (NA, K, CL, CO2, GLUCOSE, BUN, CREATININE, CA) 2022-05-28 10:01:00 Andreina Childs [facility] CBC WITH DIFF 2022-05-28 10:01:00 Andreina Childs [facility] BASIC METABOLIC PANEL (NA, K, CL, CO2, GLUCOSE, BUN, CREATININE, CA) 2022-05-27 10:03:00 Josefina Dasilva [facility] CBC WITH DIFF 2022-05-27 10:03:00 Josefina Dasilva [facility] Alicemarianne [facility] CT ABDOMEN PELVIS WO CONTRAST 2022-05-27 00:19:06 Marcie Nickerson [facility] XR CHEST 1 VW 2022-05-27 00:18:27 Marcie Nickerson [facility] COMP. METABOLIC PANEL ([id number]) 2022-05-26 23:52:00 Marcie Nickerson [facility] CBC WITH DIFF 2022-05-26 22:55:00 Marcie Nickerson [facility] COVID-19 (ID NOW RAPID TESTING) 2022-05-26 22:41:00 Marcie Nickerson [facility] LAB ONLY COVID INTERPRETATION 2022-05-26 22:41:00 Marcie Nickerson [facility] BASIC METABOLIC PANEL (NA, K, CL, CO2, GLUCOSE, BUN, CREATININE, CA) 2022-05-05 10:38:00 Leroy Soni [facility] CBC WITH DIFF 2022-05-05 10:38:00 Leroy Soni [facility] FECES CULTURE 2022-05-03 15:27:00 [facility] OCCULT (GUAIAC) BLOOD 2022-05-03 15:27:00 Brown [facility] CLOSTRIDIUM DIFFICILE TOXIN 2022-05-03 15:25:00 Singer [facility] BASIC METABOLIC PANEL (NA, K, CL, CO2, GLUCOSE, BUN, CREATININE, CA) 2022-05-03 11:51:00 Brown [facility] CBC WITH DIFF 2022-05-03 11:51:[address] [facility] [address] ABDOMEN PELVIS W CONTRAST 2022-05-03 01:40:00 Singer [facility] COMP. METABOLIC PANEL ([id number]) 2022-05-03 00:41:00 Singer [facility] CBC WITH DIFF 2022-05-03 00:41:00 Singer [facility] Encounters Start Date/Time End Date/Time Encounter Type Admission Type Attending Clinicians Care Facility Care Department Encounter ID Source 2024-07-12 00:00:00 2024-07-12 15:27:00 Telephone Dougie Giles [facility] [id number] [facility] 2024-03-11 12:28:00 2024-03-11 15:13:00 Emergency X [facility] [id number] [facility] 2023-12-30 21:24:00 2023-12-31 02:06:00 Emergency X ISAURA BECK WAK[facility] [id number] [facility] 2023-12-30 21:24:00 2023-12-31 02:06:00 Emergency Isaura Beck [facility] [id number] [facility] 2023-09-02 13:45:00 2023-09-02 13:45:00 Outpatient NATALIE SALTER [facility] [id number] [facility] 2023 14:51:00 2023 20:06:00 Emergency X Joseph [facility]ELENDEZ [facility] [id number] [facility] 2023 14:51:00 2023 20:06:00 Emergency Joseph Melendez [facility] 1..840.114 350.1.13.10 4.2.7.2.686 [id number] 084 [id number] [facility] 2023-02-24 15:31:00 2023-02-24 17:09:00 Emergency X [facility] [id number] [facility] 2023-02-24 15:31:00 2023-02-24 17:09:00 Emergency Nicanor Lentz [facility] 1..840.114 350.1.13.10 4.2.7.2.686 [id number] [facility] 2023-02-09 00:00:00 2023-02-09 00:00:00 Transition of Care Shira Mead 1.2840.114 350.1.13.10 4.2.7.2.686 [id number] [facility] 2023-02-02 11:13:00 2023-02-06 14:30:00 Inpatient MARQUES ABDALLA [facility] [id number] [facility] 2023-02-02 11:13:00 2023-02-06 14:30:00 Hospital Encounter Andreina Uriarte, Marques Talamantes [facility] 1.2840.114 350.1.13.10 4.2.7.2.686 [id number] [id number] [facility] 2023-01-25 14:59:00 2023-01-29 14:45:00 Outpatient Kevin HINESMARQUES [facility] [id number] [facility] 2023-01-25 14:59:00 2023-01-29 14:45:00 Emergency Virginia Soni [facility] 1.2840.114 350.1.13.10 4.2.7.2.686 [id number] [id number] [facility] 2023-01-20 14:16:00 2023-01-20 18:32:00 Emergency X VIRGINIA SONI [facility] [id number] [facility] 2023-01-20 14:16:00 2023-01-20 18:32:00 Emergency Virginia Soni [facility] 1.2840.114 350.1.13.10 4.2.7.2.686 [id number] 084 [id number] [facility] 2022-12-02 00:00:00 2022-12-02 00:00:00 Transition of Care Ena Vaughn OLEKSANDRHumza [facility] 1.2840.114 350.1.13.10 4.2.7.2.686 [id number] [facility] 2022-11-29 17:47:00 2022-12-01 15:01:00 Outpatient X DONNY [facility] [id number] [facility] 2022-11-29 17:47:00 2022-12-01 15:01:00 Emergency Juno Verdin Marques Hines [facility] 1.2.840.114 350.1.13.10 4.2.7.2.686 [id number] [facility] 2022-11-26 14:05:00 2022-11-26 20:18:00 Emergency X FRANKIE [facility] ERT [id number] [facility] 2022-11-26 14:05:00 2022-11-26 20:18:00 Emergency Frankie [facility] 1.2.840.114 350.1.13.10 4.2.7.2.686 [id number] [facility] 2022-11-21 00:00:00 2022-11-21 00:00:00 Orders Only Doctor Unassigned, [place] [facility] 1.2.840.114 350.1.13.10 4.2.7.2.686 [id number] [id number] [facility] 2022-10-31 00:00:00 2022-10-31 00:00:00 Transition of Care Ena Vaughn 1.2.840.114 350.1.13.10 4.2.7.2.686 [id number] [facility] 2022-10-27 22:03:00 2022-10-30 14:20:00 Inpatient X LYDIA TRISTAN [facility] [id number] [facility] 2022-10-27 22:03:00 2022-10-30 14:20:00 Hospital Encounter Marcie Nickerson Wakili S Albustami, Lydia Leonard [facility] 1.2.840.114 350.1.13.10 4.2.7.2.686 [id number] [facility] 2022-08-27 14:15:00 2022-08-27 15:25:22 Outpatient R FAROOQ NATALIE [facility] [id number] [facility] 2022-08-27 14:15:00 2022-08-27 15:25:22 Office Visit Farooq Natalie [facility] 1.2840.114 350.1.13.10 4.2.7.2.686 [id number] [facility] 2022-07-31 00:00:00 2022-07-31 00:00:00 Patient Secure Msg Doctor Unassigned, [place] [facility] 1.0.114 350.1.13.10 4.2.7.2.686 [id number] [facility] 2022-07-30 14:15:00 2022-07-30 14:15:00 Outpatient R FAROOQ NATALIE [facility] [id number] [facility] 2022-07-28 00:00:00 2022-07-28 00:00:00 Transition of Care Ena Vaughn SARA [facility] 1.0.114 350.1.13.10 4.2.7.2.686 [id number] [facility] 2022-07-20 20:56:00 2022-07-26 16:35:00 Hospital Encounter Nicanor Lentz Santhosh Morris, David [facility] 1.0.114 350.1.13.10 4.2.7.2.686 [id number] [id number] [facility] 2022-07-18 14:46:00 2022-07-18 18:35:00 Emergency X NICANOR LENT[facility] [id number] [facility] 2022-07-18 14:46:00 2022-07-18 18:35:00 Emergency Nicanor Lentz [facility] 1.2.840.114 350.1.13.10 4.2.7.2.686 [id number] [id number] [facility] 2022-07-18 14:46:00 2022-07-18 18:35:00 Emergency X NICANOR LENTZ [facility] [id number] [facility] 2022-07-02 00:00:00 2022-07-02 00:00:00 Telephone Jean Jarrett [facility] PROFESS[facility] NAL BUILDING 1.2.840.114 350.1.13.10 4.2.7.2.686 [id number] [facility] 2022-07-01 00:00:00 2022-07-01 00:00:00 [facility] MEDICAL OFFICE BUILDING 1.2.840.114 350.1.13.10 4.2.7.2.686 [id number] 044 [id number] [facility] 2022-06-19 14:30:00 2022-06-19 14:30:00 [facility] [id number] [facility] 2022-06-16 00:00:00 2022-06-16 00:00:00 Telephone Giles [facility]BIPIN [facility] MEDICAL OFFICE BUILDING 1.2.840.114 350.1.13.10 4.2.7.2.686 [id number] [facility] 2022-06-10 10:22:00 2022-06-10 16:51:00 Emergency X Joseph [facility]ENDEZ [facility] [id number] [facility] 2022-06-10 10:22:00 2022-06-10 16:51:00 Emergency Joseph Melendez [facility] 1.840.114 350.1.13.10 4.2.7.2.686 [id number] [facility] 2022-06-03 00:00:00 2022-06-03 00:00:00 Orders Only Doctor Unassigned, [place] [facility] 1.840.114 350.1.13.10 4.2.7.2.686 [id number] [id number] [facility] 2022-06-03 00:00:00 2022-06-03 00:00:00 Telephone Chan Dougie [facility] MEDICAL OFFICE BUILDING 1.840.114 350.1.13.10 4.2.7.2.686 [id number] [id number] [facility] 2022-05-29 00:00:00 2022-05-29 00:00:00 Transition of Care Ena Vaughn 1.840.114 350.1.13.10 4.2.7.2.686 [id number] [facility] 2022-05-26 16:25:00 2022-05-28 14:40:00 Inpatient X MARLENA RIOS [facility] [id number] [facility] 2022-05-26 16:25:00 2022-05-28 14:40:00 Hospital Encounter Marcie Nickerson Jelani [facility] 1.840.114 350.1.13.10 4.2.7.2.686 [id number] [id number] [facility] 2022-05-23 00:00:00 2022-05-23 00:00:00 Telephone Chan [facility]?BIPIN HJA MEDICAL OFFICE BUILDING 1.840.114 350.1.13.10 4.2.7.2.686 [id number] [facility] 2022-05-05 18:41:00 2022-05-16 14:13:00 Inpatient 3 Mindy-L[place]on [place] [id number] Himanshu pearson 2022-05-06 00:00:00 2022-05-06 00:00:00 Transition of Care Ena Vaughn RUIZJuan Jose [facility] 1.20.114 350.1.13.10 4.2.7.2.686 [id number] [facility] 2022-05-02 18:19:00 2022-05-05 17:40:00 Outpatient X [facility] [id number] [facility] 2022-05-02 18:19:00 2022-05-05 17:40:00 Emergency Nicanor Lentz [facility] 1..114 350.1.13.10 4.2.7.2.686 [id number] [id number] [facility] 2022-05-01 00:00:00 2022-05-01 00:00:00 Telephone Chan [facility] MEDICAL OFFICE BUILDING 1..114 350.1.13.10 4.2.7.2.686 [id number] 044 [id number] [facility] 2022-04-17 00:00:00 2022-04-17 00:00:00 Telephone [facility] MEDICAL OFFICE BUILDING 1..114 350.1.13.10 4.2.7.2.686 [id number] 044 [id number] [facility] 2021-12-05 14:30:00 2021-12-05 14:45:00 Office Visit Chan [facility] MEDICAL OFFICE BUILDING 1..114 350.1.13.10 4.2.7.2.686 [id number] [id number] [facility] 2021-12-05 14:30:00 2021-12-05 14:30:00 Outpatient DOUGIE BLACKMON [facility] [id number] [facility] 2021-12-05 14:30:00 2021-12-05 14:30:00 Outpatient DOUGIE BLACKMON [facility] [id number] [facility] 2021-12-05 00:00:00 2021-12-05 00:00:00 Orders Only Doctor Unassigned, [place] [facility] 1.2.840.114 350.1.13.10 4.2.7.2.686 [id number] [facility] 2021-11-28 14:00:00 2021-11-28 14:00:00 Outpatient ANGELES BLACKMONONY [facility] [id number] [facility] 2021-11-27 00:00:00 2021-11-27 00:00:00 Telephone Natalie Trivedi [facility] 1.2.840.114 350.1.13.10 4.2.7.2.686 [id number] [facility] 2021-11-21 14:30:00 2021-11-21 14:30:00 Outpatient DOUGIE BLACKMON [facility] [id number] [facility] 2021-11-18 15:00:00 2021-11-18 15:00:00 Nurse Visit Nurse, [facility] 1.2.840.114 350.1.13.10 4.2.7.2.686 [id number] [facility] 2021-11-18 15:00:00 2021-11-18 13:15:55 Out[facility] [id number] [facility] 2021-11-11 11:15:00 2021-11-11 14:37:03 Outpatient R NATALIE TRIVEDI [facility] [id number] [facility] 2021-11-11 11:15:00 2021-11-11 14:37:03 Nurse Visit Nurse, [facility] 1.2.840.114 350.1.13.10 4.2.7.2.686 [id number] [facility] 2021-11-11 00:00:00 2021-11-11 00:00:00 [facility] 1.2.840.114 350.1.13.10 4.2.7.2.686 [id number] [facility] 2021-10-24 00:00:00 2021-10-24 00:00:00 Dougie Burgess [facility] AB[facility] MEDICAL OFFICE BUILDING 1.2.840.114 350.1.13.10 4.2.7.2.686 [id number] [id number] [facility] 2021-10-22 16:00:00 2021-10-22 16:00:00 Nurse Visit Nurse, [facility] 1.2.840.114 350.1.13.10 4.2.7.2.686 [id number] [facility] 2021-10-22 16:00:00 2021-10-22 15:58:34 Outpatient R [facility] [id number] [facility] 2021-10-22 00:00:00 2021-10-22 00:00:00 Telephone Farooq [facility] BUILDING 1.2.840.114 350.1.13.10 4.2.7.2.686 [id number] [facility] 2021-09-24 00:00:00 2021-09-24 00:00:00 Shannon GilesDougie [facility] MED[facility] OFFICE BUILDING 1.0.114 350.1.13.10 4.2.7.2.686 [id number] [id number] [facility] 2021-09-17 00:00:00 2021-09-17 00:00:00 Orders Only Doctor Unassigned, [place] [facility] 1.0.114 350.1.13.10 4.2.7.2.686 [id number] [id number] [facility] 2021-07-31 15:00:00 2021-07-31 15:42:22 Outpatient R FAROOQ [facility] [id number] [facility] 2021-07-31 15:00:00 2021-07-31 15:42:22 [facility] 1.114 350.1.13.10 4.2.7.2.686 [id number] [facility] 2021-07-31 15:00:00 2021-07-31 15:00:00 Outpatient R TRIVEDI [facility] [id number] [facility] 2021-07-31 00:00:00 2021-07-31 00:00:00 Orders Only Doctor Unassigned, [place] [facility] 1..114 350.1.13.10 4.2.7.2.686 [id number] [id number] [facility] 2021-07-30 00:00:00 2021-07-30 00:00:00 Telephone Jelani Cordon [facility]IPIN [facility] MEDICAL OFFICE BUILDING 1..114 350.1.13.10 4.2.7.2.686 [id number] 092 [id number] [facility] 2021-07-29 00:00:00 2021-07-29 00:00:00 [facility] 1.2840.114 350.1.13.10 4.2.7.2.686 [id number] [facility] 2021-07-22 00:00:00 2021-07-22 00:00:00 Orders Only Doctor Unassigned, [place] [facility] 1.2840.114 350.1.13.10 4.2.7.2.686 [id number] [facility] 2021-06-26 00:00:00 2021-06-26 00:00:00 Orders Only Doctor Unassigned, [place] [facility] 1.2840.114 350.1.13.10 4.2.7.2.686 [id number] [id number] [facility] 2021-06-19 14:30:00 2021-06-19 14:30:00 Outpatient R DOUGIE GILES [facility] [id number] [facility] 2021-06-15 00:00:00 2021-06-15 00:00:00 Orders Only Doctor Unassigned, [place] [facility] 1.2840.114 350.1.13.10 4.2.7.2.686 [id number] [facility] 2021-06-03 15:45:00 2021-06-03 15:45:00 Outpatient R JEAN JARRETT [facility] [id number] [facility] 2021-06-03 00:00:00 2021-06-03 00:00:00 [facility] 1.2.840.114 350.1.13.10 4.2.7.2.686 [id number] [facility] 2021-05-15 00:00:00 2021-05-15 00:00:00 Telephone Chan Dougie [facility] OFFICE BUILDING 1.2.840.114 350.1.13.10 4.2.7.2.686 [id number] [facility] 2021-05-01 00:00:00 2021-05-01 00:00:00 Telephone Liane Negrete [facility] 1.2.840.114 350.1.13.10 4.2.7.2.686 [id number] [facility] 2021-04-30 00:00:00 2021-04-30 00:00:00 Telephone Only, Ang Db Test [facility] MEDICAL OFFICE BUILDING 1.2.840.114 350.1.13.10 4.2.7.2.686 [id number] [facility] 2021-04-29 15:00:00 2021-04-29 15:15:00 Laboratory Only Only, Ang Db Test Mannie Vásquez [facility] OFFICE BUILDING 1.2.840.114 350.1.13.10 4.2.7.2.686 [id number] [facility] 2021-04-29 15:00:00 2021-04-29 15:00:00 Outpatient MANNIE DODD [facility] [id number] [facility] 2021-04-29 00:00:00 2021-04-29 00:00:00 Orders Only Doctor Unassigned, [place] [facility] 1.2.840.114 350.1.13.10 4.2.7.2.686 [id number] [id number] [facility] 2021-04-11 14:15:00 2021-04-11 15:10:33 Outpatient DOUGIE BLACKMON [facility] [id number] [facility] 2021-04-11 14:15:00 2021-04-11 14:30:00 Office Visit Dougie Giles [facility] MED[facility] OFF[facility] BUILDING 1.2.840.114 350.1.13.10 4.2.7.2.686 [id number] [facility] 2021-04-11 14:15:00 2021-04-11 14:15:00 Outpatient R DOUGIE GILES [facility] [id number] [facility] 2021-04-11 14:15:00 2021-04-11 14:15:00 Outpatient R DOUGIE GILES [facility] [id number] [facility] 2021-04-11 14:15:00 2021-04-11 14:15:00 Outpatient R DOUGIE GILES [facility] [id number] [facility] 2021-03-25 15:30:00 2021-03-25 16:15:24 Outpatient MARGI NGUYỄN [facility] [id number] [facility] 2021-03-25 15:30:00 2021-03-25 16:15:24 [facility] 1.2.840.114 350.1.13.10 4.2.7.2.686 [id number] [facility] 2021-03-25 15:30:00 2021-03-25 16:15:24 Outpatient MARGI NGUYỄN [facility] [id number] [facility] 2021-03-08 00:00:00 2021-03-08 00:00:00 Orders Only Doctor Unassigned, [place] [facility] 1..840.114 350.1.13.10 4.2.7.2.686 [id number] [facility] 2021-03-07 13:15:00 2021-03-07 14:35:42 Outpatient R JEAN JARRETT [facility] [id number] [facility] 2021-03-07 13:12:17 2021-03-07 14:35:42 Office Visit Jania Jean [facility] BUILDING 1.2.840.114 350.1.13.10 4.2.7.2.686 [id number] [facility] 2021-03-07 13:15:00 2021-03-07 13:15:00 Outpatient R ABIMAELLORI [facility] [id number] [facility] 2021-02-25 00:00:00 2021-02-25 00:00:00 Orders Only Doctor Unassigned, [place] [facility] 1.2840.114 350.1.13.10 4.2.7.2.686 [id number] [facility] 2021-02-21 00:00:00 2021-02-21 00:00:00 Telephone Dougie Giles [facility]?MARISAMayte [facility] MEDICAL OFFICE BUILDING 1.2.840.114 350.1.13.10 4.2.7.2.686 [id number] 044 [id number] [facility] 2021-02-01 00:00:00 2021-02-01 00:00:00 Telephone Jelani Cordon [facility] BUILDING 1.2.840.114 350.1.13.10 4.2.7.2.686 [id number] [facility] 2021-01-30 00:00:00 2021-01-30 00:00:00 Telephone Chan Dougie [facility]?BIPIN [facility] MEDICAL OFFICE BUILDING 1.2.840.114 350.1.13.10 4.2.7.2.686 [id number] [id number] [facility] 2021-01-30 00:00:00 2021-01-30 00:00:00 Telephone Dougie Giles [facility]IPIN J[facility] MEDICAL OFFICE BUILDING 1.2.840.114 350.1.13.10 4.2.7.2.686 [id number] 044 [id number] [facility] 2021-01-18 15:11:53 2021-01-18 15:41:53 Office Visit Justine Garcia [facility]?Bipin jha Medical Office Building 1.840.114 350.1.13.10 4.2.7.2.686 [id number] [id number] [facility] 2021-01-18 15:00:00 2021-01-18 15:00:00 Outpatient R JUSTINE GARCIA [facility] [id number] [facility] 2021-01-17 00:00:00 2021-01-17 00:00:00 Telephone Chan Hugh [facility]?Bipin jha [facility] Office Building 1.0.114 350.1.13.10 4.2.7.2.686 [id number] 044 [id number] [facility] 2020-11-22 00:00:00 2020-11-22 00:00:00 Telephone Dougie Giles [facility] Office Building One 1..114 350.1.13.10 4.2.7.2.686 [id number] 044 [id number] [facility] 2020-11-19 00:00:00 2020-11-19 00:00:00 Refill Dougie Giles [facility] Building 1.840.114 350.1.13.10 4.2.7.2.686 [id number] [facility] 2020-10-18 11:40:10 2020-10-18 12:00:10 Video Games Storywriter Visit Lab, [facility] Pob Ce Giles [facility] Office Building One 1..114 350.1.13.10 4.2.7.2.686 [id number] 044 [id number] [facility] 2020-10-18 11:20:00 2020-10-18 11:20:00 Outpatient Joaquín [facility] [id number] [facility] 2020-10-11 13:52:36 2020-10-11 14:07:36 Office Visit Dougie Giles [facility] Office Building One 1..840.114 350.1.13.10 4.2.7.2.686 [id number] [facility] 2020-10-11 14:00:00 2020-10-11 14:00:00 Outpatient DOUGIE BLACKMON [facility] [id number] [facility] 2020-10-11 00:00:00 2020-10-11 00:00:00 Orders Only Doctor Unassigned, [place] [facility] 1..840.114 350.1.13.10 4.2.7.2.686 [id number] [facility] 2020-09-28 00:00:00 2020-09-28 00:00:00 Refill Dougie Giles [facility] Building 1..840.114 350.1.13.10 4.2.7.2.686 [id number] [facility] 2020-09-27 14:00:00 2020-09-27 14:00:00 Outpatient DOUGIE BLACKMON [facility] [id number] [facility] 2020-08-28 13:43:19 2020-08-28 14:44:37 Office Visit Jelani Cordon [facility] Building 1..840.114 350.1.13.10 4.2.7.2.686 [id number] [facility] 2020-08-28 14:20:00 2020-08-28 14:20:00 Outpatient JELANI NOVAK HOWARD [facility] [id number] [facility] 2020-08-02 00:00:00 2020-08-02 00:00:00 Jelani Espinoza [facility] Building 1..840.114 350.1.13.10 4.2.7.2.686 [id number] [facility] 2020-07-17 00:00:00 2020-07-17 00:00:00 Orders Only Doctor Unassigned, [place] [facility] 1.840.114 350.1.13.10 4.2.7.2.686 [id number] [facility] 2020-07-09 00:00:00 2020-07-09 00:00:00 Dougie Burgess [facility] Office Building One 1..840.114 350.1.13.10 4.2.7.2.686 [id number] [facility] 2020-06-07 17:50:00 2020-06-07 17:50:00 Outpatient JEZ DUNNE [facility] [id number] [facility] 2020-06-07 16:00:00 2020-06-07 16:00:00 Outpatient JEZ DUNNE [facility] [id number] [facility] 2020-05-10 18:10:00 2020-05-10 18:10:00 Outpatient JEZ DUNNE [facility] [id number] [facility] 2020-05-08 00:00:00 2020-05-08 00:00:00 Jelani Espinoza [facility] Building 1..840.114 350.1.13.10 4.2.7.2.686 [id number] [facility] 2020-04-02 00:00:00 2020-04-02 00:00:00 Angeles Burgessony [facility] Building 1.2.840.114 350.1.13.10 4.2.7.2.686 [id number] [facility] 2020-03-12 00:00:00 2020-03-12 00:00:00 Telephone Dougie Giles [facility] 1.2.840.114 350.1.13.10 4.2.7.2.686 [id number] [facility] 2020-03-09 00:00:00 2020-03-09 00:00:00 Telephone Jelani Cordon [facility] Building 1.2.840.114 350.1.13.10 4.2.7.2.686 [id number] [facility] 2020-01-11 00:00:00 2020-01-11 00:00:00 Telephone Jelani Cordon [facility] Building 1.2.840.114 350.1.13.10 4.2.7.2.686 [id number] [facility] 2019-10-03 00:00:00 2019-10-03 00:00:00 Telephone Jelani Cordon [facility] Building 1.2.840.114 350.1.13.10 4.2.7.2.686 [id number] [facility] 2019-09-22 08:30:00 2019-09-22 08:30:00 Outpatient DOUGIE BLACKMON [facility] [id number] [facility] 2019-09-19 13:45:00 2019-09-19 13:45:00 Outpatient DOUGIE BLACKMON [facility] [id number] [facility] 2019-09-19 07:50:44 2019-09-19 08:05:44 Telemedici ne Visit Dougie Giles [facility] Building 1.2.840.114 350.1.13.10 4.2.7.2.686 [id number] [facility] 2019-07-19 00:00:00 2019-07-19 00:00:00 Refgregoria Cordon Jelani Perez [facility] Building 1.2.840.114 350.1.13.10 4.2.7.2.686 [id number] [facility] 2019-07-18 00:00:00 2019-07-18 00:00:00 Refgregoria Cordon Jelani [facility] Building 1.2.840.114 350.1.13.10 4.2.7.2.686 [id number] [facility] 2019-07-11 00:00:00 2019-07-11 00:00:00 Shannon GilesDougie [facility] 1.2.840.114 350.1.13.10 4.2.7.2.686 [id number] [facility] 2019-06-13 00:00:00 2019-06-13 00:00:00 Telephone Jelani Cordon [facility] Building 1.2.840.114 350.1.13.10 4.2.7.2.686 [id number] [facility] 2019-05-23 14:20:22 2019-05-23 15:03:09 Office Visit Jelani Cordon [facility] Building 1.2.840.114 350.1.13.10 4.2.7.2.686 [id number] [facility] 2019-05-19 13:41:15 2019-05-19 23:59:00 Outpatient JELANI NOVAK [facility] [id number] [facility] 2019-05-19 13:41:00 2019-05-19 23:59:00 Hospital Encounter Jelani Cordon [facility] 1.2.840.114 350.1.13.10 4.2.7.2.686 [id number] [facility] 2019-05-10 13:35:57 2019-05-10 14:47:10 Office Visit Jelani Cordon [facility] [facility] 1.2.840.114 350.1.13.10 4.2.7.2.686 [id number] [facility] 2019-05-10 00:00:00 2019-05-10 00:00:00 Orders Only Doctor Unassigned, [place] [facility] 1.2.840.114 350.1.13.10 4.2.7.2.686 [id number] [id number] [facility] 2019-04-19 00:00:00 2019-04-19 00:00:00 Orders Only Doctor Unassigned, [place] [facility] 1.2.840.114 350.1.13.10 4.2.7.2.686 [id number] [facility] 2016-02-26 03:16:00 2016-02-26 03:16:00 Outpatient Raju_P [facility] [id number] [facility] Results Test Description Test Time Test Comments [...] No suspicious focal osseous lesions are seen. [facility] CT ABDOMEN PELVIS W CONTRAST 05:27:07 [...] trochanter of the femur. Fat-containing umbilical hernia. [facility] (06025)2023-12-31 03:56:36* Test Item Value Reference Range Interpretation Comme nts NA (test code = 8161441307) 134 mmol/L 135-145 L K (test code = 6780849814) 4.0 mmol/L 3.5-5.0 CL (test code = 5264222275) 106 mmol/L 98-108 CO2 TOTAL (test code = 9550220757) 21 mmol/L 23-31 L AGAP (test code = 6403848267) 7 2-16 BUN (test code = 2754056711) 40 mg/dL 7-23 H GLUCOSE (test code = 9203052712) 148 mg/dL 70-110 H CREATININE (test code = 2160-0) 0.60 mg/dL 0.60-1.25 TOTAL BILI (test code = 8234492257) 0.3 mg/dL 0.1-1.1 CALCIUM (test code = 4870138393) 9.0 mg/dL 8.6-10.6 T PROTEIN (test code = 4982321718) 7.0 g/dL 6.3-8.2 ALBUMIN (test code = 8076891798) 3.8 g/dL 3.5-5.0 ALK PHOS (test code = 5527350817) 85 U/L 34-122 ALTv (test code = 1742-6) 18 U/L 5-50 AST(SGOT) (test code = 4364394125) 24 U/L 13-40 eGFR (test code = 69139-7) 98.8 mL/min/1.73m2 CKD-EPI eGFR (2020). Assuming creatinine has been stable day-to-day for at least three months, the eGFR indicates Category G1 (>= 90 mL/min/1.73 m2) Lab Interpretation (test code = 37131-0) Abnormal [facility] with [id number] 03:42:41* Test Item Value Reference Range Interpretation [...] 32.1 g/dL 31.2-35.0 RDW-SD (test code = 50263-5) 50.2 fL 38.5-51.6 RDW-CV (test code = 788-0) 15.3 % 12.1-15.4 PLT (test code = 777-3) 210 150-328 MPV (test code = 42316-6) 8.8 fL 9.8-13.0 L NRBC/100 WBC (test code = 1133243090) 0.0 0.0-10.0 NRBC x10^3 (test code = 2222564459) See_Comment [Automated messa ge] The system which generated this result transmitted reference range: 10*3/?L. The reference range was not used to interpret this result as normal/abnormal. GRAN MAT (NEUT) % (test code = 770-8) 66.5 % IMM GRAN % (test code = 1611635547) 0.50 % LYMPH % (test code = 736-9) 21.9 % MONO % (test code = 5905-5) 8.5 % EOS % (test code = 713-8) 2.3 % BASO % (test code = 706-2) 0.3 % GRAN MAT x10^3(ANC) (test code = 5285845095) 3.96 10*3/uL 1.99-6.95 IMM GRAN x10^3 (test code = 6524950744) 0.03 10*3/uL 0.00-0.06 LYMPH x10^3 (test code = 731-0) 1.31 10*3/uL 1.09-3.23 MONO x10^3 (test code = 742-7) 0.51 10*3/uL 0.36-1.02 EOS x10^3 (test code = 711-2) 0.14 10*3/uL 0.06-0.53 BASO x10^3 (test code = 704-7) 0.01-0.09 Lab Interpretation (test code = 32056-8) [facility] 22:21:33* Test Item Value Reference Range Interpretation Comme nts NA (test code = 6929420014) 140 mmol/L 135-145 K (test code = 9601341106) 4.5 mmol/L 3.5-5.0 CL (test code = 5925920185) 105 mmol/L 98-108 CO2 TOTAL (test code = 6561056380) 29 mmol/L 23-31 AGAP (test code = 4115864874) 6 2-16 BUN (test code = 0888862532) 30 mg/dL 7-23 H GLUCOSE (test code = 5246138831) 90 mg/dL 70-110 CREATININE (test code = 5368876435) 0.61 mg/dL 0.60-1.25 TOTAL BILI (test code = 3741524560) 0.5 mg/dL 0.1-1.1 CALCIUM (test code = 7727452038) 9.4 mg/dL 8.6-10.6 T PROTEIN (test code = 5521744878) 6.8 g/dL 6.3-8.2 ALBUMIN (test code = 1660465635) 3.5 g/dL 3.5-5.0 ALK PHOS (test code = 9153704583) 65 U/L 34-122 ALTv (test code = 1742-6) 16 U/L 5-50 AST(SGOT) (test code = 0294498874) 31 U/L 13-40 eGFR (test code = 15381-0) 98.3 mL/min/1.73m2 CKD-EPI eGFR (2020). Assuming creatinine has been stable day-to-day for at least three months, the eGFR indicates Category G1 (>= 90 mL/min/1.73 m2) Lab Interpretation (test code = 94327-7) Abnormal [facility] WITH [id number] 21:58:52* Test Item Value Reference Range Interpretation Comme nts WBC (test code = 6690-2) 6.24 See_Comment [Automated [employer]] The system which generated this result transmitted reference range: 4.20 - 10.70 10*3/?L. The reference range was not used to interpret this result as normal/abnormal. RBC (test code = 789-8) 4.28 See_Comment [Automated [employer]] The system which generated this result transmitted [...] 33.2 g/dL 31.2-35.0 RDW-SD (test code = 61339-4) 48.7 fL 38.5-51.6 RDW-CV (test code = 788-0) 14.7 % 12.1-15.4 PLT (test code = 777-3) 209 See_Comment [Automated [employer] ge] The system which generated this result transmitted reference range: 150 - 328 10*3/?L. The reference range was not used to interpret this result as normal/abnormal. MPV (test code = 96082-0) 8.6 fL 9.8-13.0 L NRBC/100 WBC (test code = 8197125679) 0.0 See_Comment [Automated [employer] ssage] The system which generated this result transmitted reference range: 0.0 - 10.0 /100 WBCs. The reference range was not used to interpret this result as normal/abnormal. NRBC x10^3 (test code = 8186359530) See_Comment [Automated [employer] ge] The system which generated this result transmitted reference range: 10*3/?L. The reference range was not used to interpret this result as normal/abnormal. GRAN MAT (NEUT) % (test code = 770-8) 66.3 % IMM GRAN % (test code = 9025492768) 0.30 % LYMPH % (test code = 736-9) 21.3 % MONO % (test code = 5905-5) 8.8 % EOS % (test code = 713-8) 3.0 % BASO % (test code = 706-2) 0.3 % GRAN MAT x10^3(ANC) (test code = 1117963200) 4.13 10*3/uL 1.99-6.95 IMM GRAN x10^3 (test code = 5510827335) 0.00-0.06 LYMPH x10^3 (test code = 731-0) 1.33 10*3/uL 1.09-3.23 MONO x10^3 (test code = 742-7) 0.55 10*3/uL 0.36-1.02 EOS x10^3 (test code = 711-2) 0.19 10*3/uL 0.06-0.53 BASO x10^3 (test code = 704-7) 0.01-0.09 Lab Interpretation (test code = 34104-7) Abnormal [facility] METABOLIC PANEL (NA, K, CL, CO2, GLUCOSE, BUN, CREATININE, CA)2023-02-24 22:19:20* Test Item Value Reference Range Interpretation Comme nts NA (test code = 6961119076) 137 mmol/L 135-145 K (test code = 3137970909) 3.8 mmol/L 3.5-5.0 CL (test code = 5444019723) 106 mmol/L 98-108 CO2 TOTAL (test code = 0522626111) 24 mmol/L 23-31 AGAP (test code = 7972584186) 7 2-16 BUN (test code = 3605852630) 25 mg/dL 7-23 H GLUCOSE (test code = 7368258329) 109 mg/dL 70-110 CREATININE (test code = 8861141228) 0.56 mg/dL 0.60-1.25 L CALCIUM (test code = 9367383733) 8.8 mg/dL 8.6-10.6 eGFR (test code = 39030-3) 101.5 mL/min/1.73m2 CKD-EPI eGFR (2020). Assuming creatinine has been stable day-to-day for at least three months, the eGFR indicates Category G1 (>= 90 mL/min/1.73 m2) Lab Interpretation (test code = 29421-5) Abnormal [facility] METABOLIC PANEL (NA, K, CL, CO2, GLUCOSE, BUN, CREATININE, CA)2023-02-05 10:07:11* Test Item Value Reference Range Interpretation Comme nts NA (test code = 9298023946) 141 mmol/L 135-145 K (test code = 9408020941) 3.9 mmol/L 3.5-5.0 CL (test code = 1042990407) 110 mmol/L 98-108 H CO2 TOTAL (test code = 6441981165) 24 mmol/L 23-31 AGAP (test code = 9066611960) 7 2-16 BUN (test code = 5747876630) 26 mg/dL 7-23 H GLUCOSE (test code = 8489923233) 88 mg/dL 70-110 CREATININE (test code = 1417877471) 0.62 mg/dL 0.60-1.25 CALCIUM (test code = 4127835398) 8.5 mg/dL 8.6-10.6 L eGFR (test code = 14001-6) 98.4 mL/min/1.73m2 CKD-EPI eGFR (2020). Assuming creatinine has been stable day-to-day for at least three months, the eGFR indicates Category G1 (>= 90 mL/min/1.73 m2) Lab Interpretation (test code = 45309-6) Abnormal [facility] WITH [id number] 08:38:12* Test Item Value Reference Range Interpretation Comme nts WBC (test code = 6690-2) 7.22 See_Comment [Automated [employer]] The system which generated this result transmitted reference range: 4.20 - 10.70 10*3/?L. The reference range was not used to interpret this result as normal/abnormal. RBC (test code = 789-8) 3.64 See_Comment L [Automated [employer]] The system which generated this result transmitted [...] 32.0 g/dL 31.2-35.0 RDW-SD (test code = 97314-1) 50.4 fL 38.5-51.6 RDW-CV (test code = 788-0) 14.9 % 12.1-15.4 PLT (test code = 777-3) 171 See_Comment [Automated [employer]] The system which generated this result transmitted reference range: 150 - 328 10*3/?L. The reference range was not used to interpret this result as normal/abnormal. MPV (test code = 16738-4) 8.5 fL 9.8-13.0 L NRBC/100 WBC (test code = 3754200317) 0.0 See_Comment [Automated [employer] ssage] The system which generated this result transmitted reference range: 0.0 - 10.0 /100 WBCs. The reference range was not used to interpret this result as normal/abnormal. NRBC x10^3 (test code = 5943972739) See_Comment [Automated [employer]] The system which generated this result transmitted reference range: 10*3/?L. The reference range was not used to interpret this result as normal/abnormal. GRAN MAT (NEUT) % (test code = 770-8) 71.3 % IMM GRAN % (test code = 3398042020) 1.00 % LYMPH % (test code = 736-9) 19.3 % MONO % (test code = 5905-5) 6.9 % EOS % (test code = 713-8) 1.4 % BASO % (test code = 706-2) 0.1 % GRAN MAT x10^3(ANC) (test code = 4759473958) 5.15 10*3/uL 1.99-6.95 IMM GRAN x10^3 (test code = 0629110822) 0.07 10*3/uL 0.00-0.06 H LYMPH x10^3 (test code = 731-0) 1.39 10*3/uL 1.09-3.23 MONO x10^3 (test code = 742-7) 0.50 10*3/uL 0.36-1.02 EOS x10^3 (test code = 711-2) 0.10 10*3/uL 0.06-0.53 BASO x10^3 (test code = 704-7) 0.01-0.09 Lab Interpretation (test code = 27633-9) Abnormal [facility] METABOLIC PANEL (NA, K, CL, CO2, GLUCOSE, BUN, CREATININE, CA)2023-02-04 11:48:34* Test Item Value Reference Range Interpretation Comme [facility] NA (test code = 1191268019) 141 mmol/L 135-145 K (test code = 7235216925) 3.8 mmol/L 3.5-5.0 CL (test code = 8312415127) 109 mmol/L 98-108 H CO2 TOTAL (test code = 8836422588) 23 mmol/L 23-31 AGAP (test code = 0758511781) 9 2-16 BUN (test code = 0987986756) 27 mg/dL 7-23 H GLUCOSE (test code = 0298167218) 114 mg/dL 70-110 H CREATININE (test code = 9024349309) 0.65 mg/dL 0.60-1.25 CALCIUM (test code = 5592611367) 8.7 mg/dL 8.6-10.6 eGFR (test code = 11200-6) 97.0 mL/min/1.73m2 CKD-EPI eGFR (2020). Assuming creatinine has been stable day-to-day for at least three months, the eGFR indicates Category G1 (>= 90 mL/min/1.73 m2) Lab Interpretation (test code = 85382-8) Abnormal [facility] WITH [id number] 10:36:47* Test Item Value Reference Range Interpretation Comme nts WBC (test code = 6690-2) 9.11 See_Comment [Automated [employer]] The system which generated this result transmitted reference range: 4.20 - 10.70 10*3/?L. The reference range was not used to interpret this result as normal/abnormal. RBC (test code = 789-8) 3.59 See_Comment L [Automated messa ge] The system [...] 32.1 g/dL 31.2-35.0 RDW-SD (test code = 91420-0) 50.7 fL 38.5-51.6 RDW-CV (test code = 788-0) 14.7 % 12.1-15.4 PLT (test code = 777-3) 192 See_Comment [Automated messa ge] The system which generated this result transmitted reference range: 150 - 328 10*3/?L. The reference range was not used to interpret this result as normal/abnormal. MPV (test code = 74006-8) 8.6 fL 9.8-13.0 L NRBC/100 WBC (test code = 2054964224) 0.0 See_Comment [Automated [employer] ssage] The system which generated this result transmitted reference range: 0.0 - 10.0 /100 WBCs. The reference range was not used to interpret this result as normal/abnormal. NRBC x10^3 (test code = 0123510016) See_Comment [Automated messa ge] The system which generated this result transmitted reference range: 10*3/?L. The reference range was not used to interpret this result as normal/abnormal. GRAN MAT (NEUT) % (test code = 770-8) 80.5 % IMM GRAN % (test code = 3434910734) 0.70 % LYMPH % (test code = 736-9) 10.6 % MONO % (test code = 5905-5) 7.9 % EOS % (test code = 713-8) 0.1 % BASO % (test code = 706-2) 0.2 % GRAN MAT x10^3(ANC) (test code = 1404667253) 7.33 10*3/uL 1.99-6.95 H IMM GRAN x10^3 (test code = 6004712971) 0.06 10*3/uL 0.00-0.06 LYMPH x10^3 (test code = 731-0) 0.97 10*3/uL 1.09-3.23 L MONO x10^3 (test code = 742-7) 0.72 10*3/uL 0.36-1.02 EOS x10^3 (test code = 711-2) 0.06-0.53 L BASO x10^3 (test code = 704-7) 0.01-0.09 Lab Interpretation (test code = 07480-7) [facility] 17:57:30* Test Item Value Reference Range Interpretation Comme nts Procalcitonin (test code = 3113878260) 0.06 ng/mL <=0.07 STEPHANIE (test code = [...] further information please refer to:[email or web address] Lab Interpretation (test code = 75211-1) Normal [facility] with Kaokvxqguyke2169-61-74 12:23:54* Test Item Value Reference Range Interpretation Comme nts WBC (test code = 6690-2) 4.43 See_Comment [Automated [employer]] The system which generated this result transmitted reference range: 4.20 - 10.70 10*3/?L. The reference range was not used to interpret this result as normal/abnormal. RBC (test code = 789-8) 3.88 See_Comment L [Automated [employer]] The system which generated this result [...] 31.4 g/dL 31.2-35.0 RDW-SD (test code = 86524-0) 51.0 fL 38.5-51.6 RDW-CV (test code = 788-0) 14.6 % 12.1-15.4 PLT (test code = 777-3) 183 See_Comment [Automated [employer]] The system which generated this result transmitted reference range: 150 - 328 10*3/?L. The reference range was not used to interpret this result as normal/abnormal. MPV (test code = 80977-3) 8.5 fL 9.8-13.0 L NRBC/100 WBC (test code = 5271580064) 0.0 See_Comment [Automated [employer] ssage] The system which generated this result transmitted reference range: 0.0 - 10.0 /100 WBCs. The reference range was not used to interpret this result as normal/abnormal. NRBC x10^3 (test code = 1801167141) See_Comment [Automated [employer]] The system which generated this result transmitted reference range: 10*3/?L. The reference range was not used to interpret this result as normal/abnormal. GRAN MAT (NEUT) % (test code = 770-8) 60.9 % IMM GRAN % (test code = 0400987289) 0.50 % LYMPH % (test code = 736-9) 18.1 % MONO % (test code = 5905-5) 20.3 % EOS % (test code = 713-8) 0.0 % BASO % (test code = 706-2) 0.2 % GRAN MAT x10^3(ANC) (test code = 3768777471) 2.70 10*3/uL 1.99-6.95 IMM GRAN x10^3 (test code = 9441705047) 0.00-0.06 LYMPH x10^3 (test code = 731-0) 0.80 10*3/uL 1.09-3.23 L MONO x10^3 (test code = 742-7) 0.90 10*3/uL 0.36-1.02 EOS x10^3 (test code = 711-2) 0.06-0.53 L BASO x10^3 (test code = 704-7) 0.01-0.09 Lab Interpretation (test code = 33419-3) Abnormal [facility] Metabolic Panel (NA, K, CL, CO2, GLUCOSE, BUN, CREATININE, CA)2023-02-03 10:51:24* Test Item Value Reference Range Interpretation Comme nts NA (test code = 8644185481) 140 mmol/L 135-145 K (test code = 6896141229) 4.0 mmol/L 3.5-5.0 CL (test code = 8233940083) 107 mmol/L 98-108 CO2 TOTAL (test code = 7278938385) 24 mmol/L 23-31 AGAP (test code = 3245501549) 9 2-16 BUN (test code = 2344195425) 24 mg/dL 7-23 H GLUCOSE (test code = 7993351633) 125 mg/dL 70-110 H CREATININE (test code = 5642325736) 0.69 mg/dL 0.60-1.25 CALCIUM (test code = 8182449401) 8.6 mg/dL 8.6-10.6 eGFR (test code = 07263-9) 95.3 mL/min/1.73m2 CKD-EPI eGFR (2020). Assuming creatinine has been stable day-to-day for at least three months, the eGFR indicates Category G1 (>= 90 mL/min/1.73 m2) Lab Interpretation (test code = 37698-4) Abnormal [facility]. METABOLIC PANEL (27089)2023-02-02 17:27:20* Test Item Value Reference Range Interpretation Comme nts NA (test code = 4519170262) 139 mmol/L 135-145 K (test code = 9904637802) 3.8 mmol/L 3.5-5.0 CL (test code = 4109002520) 106 mmol/L 98-108 CO2 TOTAL (test code = 6614741869) 24 mmol/L 23-31 AGAP (test code = 9238696828) 9 2-16 BUN (test code = 2270880788) 25 mg/dL 7-23 H GLUCOSE (test code = 0010170181) 112 mg/dL 70-110 H CREATININE (test code = 3360393742) 0.79 mg/dL 0.60-1.25 TOTAL BILI (test code = 1292513787) 0.3 mg/dL 0.1-1.1 CALCIUM (test code = 4208660323) 8.8 mg/dL 8.6-10.6 T PROTEIN (test code = 0678079663) 6.4 g/dL 6.3-8.2 ALBUMIN (test code = 8571618910) 3.2 g/dL 3.5-5.0 L ALK PHOS (test code = 2989790007) 65 U/L 34-122 ALTv (test code = 1742-6) 25 U/L 5-50 AST(SGOT) (test code = 5258264358) 30 U/L 13-40 eGFR (test code = 16824-4) 95.1 mL/min/1.73m2 STEPHANIE (test code = STEPHANIE) [...] imaging tests). Lab Interpretation (test code = 82807-7) Abnormal [facility] WITH [id number] 17:15:14* Test Item Value Reference Range Interpretation Comme nts WBC (test code = 6690-2) 4.49 See_Comment [Automated messa ge] The system which [...] 32.9 g/dL 31.2-35.0 RDW-SD (test code = 69525-1) 49.1 fL 38.5-51.6 RDW-CV (test code = 788-0) 14.6 % 12.1-15.4 PLT (test code = 777-3) 198 See_Comment [Automated messa ge] The system which generated this result transmitted reference range: 150 - 328 10*3/?L. The reference range was not used to interpret this result as normal/abnormal. MPV (test code = 52445-4) 8.4 fL 9.8-13.0 L NRBC/100 WBC (test code = 4726813077) 0.0 See_Comment [Automated me ssage] The system which generated this result transmitted reference range: 0.0 - 10.0 /100 WBCs. The reference range was not used to interpret this result as normal/abnormal. NRBC x10^3 (test code = 5629772965) See_Comment [Automated messa ge] The system which generated this result transmitted reference range: 10*3/?L. The reference range was not used to interpret this result as normal/abnormal. GRAN MAT (NEUT) % (test code = 770-8) 68.4 % IMM GRAN % (test code = 2402269421) 0.20 % LYMPH % (test code = 736-9) 11.8 % MONO % (test code = 5905-5) 19.4 % EOS % (test code = 713-8) 0.0 % BASO % (test code = 706-2) 0.2 % GRAN MAT x10^3(ANC) (test code = 9598183370) 3.07 10*3/uL 1.99-6.95 IMM GRAN x10^3 (test code = 3208018436) 0.00-0.06 LYMPH x10^3 (test code = 731-0) 0.53 10*3/uL 1.09-3.23 L MONO x10^3 (test code = 742-7) 0.87 10*3/uL 0.36-1.02 EOS x10^3 (test code = 711-2) 0.06-0.53 L BASO x10^3 (test code = 704-7) 0.01-0.09 Lab Interpretation (test code = 92467-7) [facility] Whole [id number] 21:47:26* Test Item Value Reference Range Interpretation Comme nts LACTIC ACID (test code = 1612666381) 1.46 mmol/L 0.50-2.20 Lab Interpretation (test cod e = 77617-2) [facility] [id number] 21:42:21* Test Item Value Reference Range Interpretation Comme nts ESR (test code = 69942-2) 16 See_Comment H [Automated messa ge] The system which generated this result transmitted reference range: 0 - 10 mm/HR. The reference range was not used to interpret this result as normal/abnormal. Lab Interpretation (test code = 16242-3) Abnormal [facility]. METABOLIC PANEL (83417)2023-01-25 21:24:38* Test Item Value Reference Range Interpretation Comme nts NA (test code = 8555582170) 143 mmol/L 135-145 K (test code = 9843995078) 3.9 mmol/L 3.5-5.0 CL (test code = 1487966405) 105 mmol/L 98-108 CO2 TOTAL (test code = 2672444085) 29 mmol/L 23-31 AGAP (test code = 2208630341) 9 2-16 BUN (test code = 0687276890) 38 mg/dL 7-23 H GLUCOSE (test code = 9668582257) 100 mg/dL 70-110 CREATININE (test code = 2311876796) 0.81 mg/dL 0.60-1.25 TOTAL BILI (test code = 1259815362) 0.2 mg/dL 0.1-1.1 CALCIUM (test code = 8669261892) 9.5 mg/dL 8.6-10.6 T PROTEIN (test code = 4999481161) 6.8 g/dL 6.3-8.2 ALBUMIN (test code = 3522673606) 3.7 g/dL 3.5-5.0 ALK PHOS (test code = 0483071185) 81 U/L 34-122 ALTv (test code = 1742-6) 22 U/L 5-50 AST(SGOT) (test code = 1394760009) 26 U/L 13-40 eGFR (test code = 0523383730) 92.4 mL/min/1.73m2 STEPHANIE (test code = STEPHANIE) [...] imaging tests). Lab Interpretation (test code = 15425-8) Abnormal [facility] WITH [id number] 20:59:14* Test Item Value Reference Range Interpretation Comme nts WBC (test code = 6690-2) 7.29 See_Comment [Automated [employer]] The system which generated this result transmitted reference range: 4.20 - 10.70 10*3/?L. The reference range was not used to interpret this result as normal/abnormal. RBC (test code = 789-8) 4.52 See_Comment [Automated [employer]] The system which generated this result transmitted [...] 32.1 g/dL 31.2-35.0 RDW-SD (test code = 48199-1) 49.1 fL 38.5-51.6 RDW-CV (test code = 788-0) 14.2 % 12.1-15.4 PLT (test code = 777-3) 202 See_Comment [Automated [employer]] The system which generated this result transmitted reference range: 150 - 328 10*3/?L. The reference range was not used to interpret this result as normal/abnormal. MPV (test code = 68676-3) 8.8 fL 9.8-13.0 L NRBC/100 WBC (test code = 9108140786) 0.0 See_Comment [Automated me ssage] The system which generated this result transmitted reference range: 0.0 - 10.0 /100 WBCs. The reference range was not used to interpret this result as normal/abnormal. NRBC x10^3 (test code = 0369043887) See_Comment [Automated messa ge] The system which generated this result transmitted reference range: 10*3/?L. The reference range was not used to interpret this result as normal/abnormal. GRAN MAT (NEUT) % (test code = 770-8) 72.5 % IMM GRAN % (test code = 1739575469) 0.30 % LYMPH % (test code = 736-9) 15.4 % MONO % (test code = 5905-5) 8.9 % EOS % (test code = 713-8) 2.6 % BASO % (test code = 706-2) 0.3 % GRAN MAT x10^3(ANC) (test code = 0900512144) 5.29 10*3/uL 1.99-6.95 IMM GRAN x10^3 (test code = 7537377216) 0.00-0.06 LYMPH x10^3 (test code = 731-0) 1.12 10*3/uL 1.09-3.23 MONO x10^3 (test code = 742-7) 0.65 10*3/uL 0.36-1.02 EOS x10^3 (test code = 711-2) 0.19 10*3/uL 0.06-0.53 BASO x10^3 (test code = 704-7) 0.01-0.09 Lab Interpretation (test code = 06426-0) [facility] [id number] 20:35:20* Test Item Value Reference Range Interpretation Comme nts TROPONIN I (test code = 8506655981) 0.006 ng/mL <=0.034 STEPHANIE (test code = [...] of biotin. Lab Interpretation (test code = 75611-6) Normal [facility] PHC-[id number] 20:33:03* Test Item Value Reference Range Interpretation Comme nts NT-proBNP (test code = 36696-1) 129 pg/mL <=125 STEPHANIE (test code = STEPHANIE) Result Indeterminate-Consid er causes of NT-proBNP elevation other than Heart failure such as acute coronary syndrome, pulmonary embolism, pulmonary hypertension, sepsis, stroke, and renal dysfunction. Lab Interpretation (test code = 71345-4) [facility]normal [facility]OL[facility] PAN[facility] (49613)2023-01-20 20:23:37* Test Item Value Reference Range Interpretation Comme nts NA (test code = 9465854390) 142 mmol/L 135-145 K (test code = 2713203772) 4.8 mmol/L 3.5-5.0 CL (test code = 8920037897) 109 mmol/L 98-108 H CO2 TOTAL (test code = 8456167529) 26 mmol/L 23-31 AGAP (test code = 9210068135) 7 2-16 BUN (test code = 1418040291) 33 mg/dL 7-23 H GLUCOSE (test code = 1161657711) 123 mg/dL 70-110 H CREATININE (test code = 9401834226) 0.70 mg/dL 0.60-1.25 TOTAL BILI (test code = 9847607614) 0.5 mg/dL 0.1-1.1 CALCIUM (test code = 6377101102) 9.3 mg/dL 8.6-10.6 T PROTEIN (test code = 9236078704) 7.0 g/dL 6.3-8.2 ALBUMIN (test code = 8229487206) 3.8 g/dL 3.5-5.0 ALK PHOS (test code = 5446532225) 64 U/L 34-122 ALTv (test code = 1742-6) 22 U/L 5-50 AST(SGOT) (test code = 2243347476) 44 U/L 13-40 H eGFR (test code = 7883537184) 109.4 mL/min/1.73m2 STEPHANIE (test code = STEPHANIE) [...] imaging tests). Lab Interpretation (test code = 65739-2) [facility] 20:23:37* Test Item Value Reference Range Interpretation Comme nts MAGNESIUM (test code = 4989284228) 2.2 mg/dL 1.7-2.4 Lab Interpretation (test cod e = 88256-8) Normal [facility] WITH [id number] 20:10:16* Test Item Value Reference Range Interpretation Comme nts WBC (test code = 6690-2) 7.96 See_Comment [Automated Mouth Partya ge] The system which generated this result transmitted reference range: 4.20 - 10.70 10*3/?L. The reference range was not used to interpret this result as normal/abnormal. RBC (test code = 789-8) 4.60 See_Comment [Automated Mouth Partya ge] The system which generated this result [...] 32.6 g/dL 31.2-35.0 RDW-SD (test code = 43831-2) 47.1 fL 38.5-51.6 RDW-CV (test code = 788-0) 14.1 % 12.1-15.4 PLT (test code = 777-3) 221 See_Comment [Automated Mouth Partya ge] The system which generated this result transmitted reference range: 150 - 328 10*3/?L. The reference range was not used to interpret this result as normal/abnormal. MPV (test code = 71098-3) 8.9 fL 9.8-13.0 L NRBC/100 WBC (test code = 0175210331) 0.0 See_Comment [Automated [employer] ssage] The system which generated this result transmitted reference range: 0.0 - 10.0 /100 WBCs. The reference range was not used to interpret this result as normal/abnormal. NRBC x10^3 (test code = 3644072330) See_Comment [Automated Mouth Partya ge] The system which generated this result transmitted reference range: 10*3/?L. The reference range was not used to interpret this result as normal/abnormal. GRAN MAT (NEUT) % (test code = 770-8) 69.6 % IMM GRAN % (test code = 5317566932) 0.30 % LYMPH % (test code = 736-9) 18.3 % MONO % (test code = 5905-5) 10.2 % EOS % (test code = 713-8) 1.3 % BASO % (test code = 706-2) 0.3 % GRAN MAT x10^3(ANC) (test code = 1343738053) 5.55 10*3/uL 1.99-6.95 IMM GRAN x10^3 (test code = 3842743593) 0.00-0.06 LYMPH x10^3 (test code = 731-0) 1.46 10*3/uL 1.09-3.23 MONO x10^3 (test code = 742-7) 0.81 10*3/uL 0.36-1.02 EOS x10^3 (test code = 711-2) 0.10 10*3/uL 0.06-0.53 BASO x10^3 (test code = 704-7) 0.01-0.09 Lab Interpretation (test code = 13828-3) [facility] ([id number][facility]2022-11-29 23:35:53* Test Item Value Reference Range Interpretation Comme nts NA (test code = 4013980351) 137 mmol/L 135-145 K (test code = 5758092979) 4.4 mmol/L 3.5-5.0 CL (test code = 5283279777) 103 mmol/L 98-108 CO2 TOTAL (test code = 6374644398) 26 mmol/L 23-31 AGAP (test code = 6125857534) 8 2-16 BUN (test code = 2763412059) 30 mg/dL 7-23 H GLUCOSE (test code = 1150246456) 124 mg/dL 70-110 H CREATININE (test code = 7100481474) 0.69 mg/dL 0.60-1.25 TOTAL BILI (test code = 3612685318) 0.3 mg/dL 0.1-1.1 CALCIUM (test code = 6091203147) 9.3 mg/dL 8.6-10.6 T PROTEIN (test code = 9696328843) 6.5 g/dL 6.3-8.2 ALBUMIN (test code = 8401102637) 3.6 g/dL 3.5-5.0 ALK PHOS (test code = 5665010866) 78 U/L 34-122 ALTv (test code = 1742-6) 21 U/L 5-50 AST(SGOT) (test code = 2131644313) 25 U/L 13-40 eGFR (test code = 9787747561) 111.2 mL/min/1.73m2 STEPHANIE (test code = STEPHANIE) [...] imaging tests). Lab Interpretation (test code = 51286-7) Abnormal [facility] WITH [id number] 23:22:49* Test Item Value Reference Range Interpretation Comme nts WBC (test code = 6690-2) 5.98 See_Comment [Automated [employer]] The system which generated this result transmitted reference range: 4.20 - 10.70 10*3/?L. The reference range was not used to interpret this result as normal/abnormal. RBC (test code = 789-8) 4.09 See_Comment L [Automated messa ge] The system [...] 34.2 g/dL 31.2-35.0 RDW-SD (test code = 23576-7) 45.1 fL 38.5-51.6 RDW-CV (test code = 788-0) 13.9 % 12.1-15.4 PLT (test code = 777-3) 210 See_Comment [Automated messa ge] The system which generated this result transmitted reference range: 150 - 328 10*3/?L. The reference range was not used to interpret this result as normal/abnormal. MPV (test code = 69312-7) 8.4 fL 9.8-13.0 L NRBC/100 WBC (test code = 5533252605) 0.0 See_Comment [Automated me ssage] The system which generated this result transmitted reference range: 0.0 - 10.0 /100 WBCs. The reference range was not used to interpret this result as normal/abnormal. NRBC x10^3 (test code = 8465034124) See_Comment [Automated messa ge] The system which generated this result transmitted reference range: 10*3/?L. The reference range was not used to interpret this result as normal/abnormal. GRAN MAT (NEUT) % (test code = 770-8) 68.8 % IMM GRAN % (test code = 5768810300) 0.20 % LYMPH % (test code = 736-9) 18.6 % MONO % (test code = 5905-5) 8.7 % EOS % (test code = 713-8) 3.0 % BASO % (test code = 706-2) 0.7 % GRAN MAT x10^3(ANC) (test code = 2001673683) 4.12 10*3/uL 1.99-6.95 IMM GRAN x10^3 (test code = 7068782734) 0.00-0.06 LYMPH x10^3 (test code = 731-0) 1.11 10*3/uL 1.09-3.23 MONO x10^3 (test code = 742-7) 0.52 10*3/uL 0.36-1.02 EOS x10^3 (test code = 711-2) 0.18 10*3/uL 0.06-0.53 BASO x10^3 (test code = 704-7) 0.04 10*3/uL 0.01-0.09 Lab Interpretation (test code = 45508-6) [facility] ([id number])2022-11-26 21:19:14* Test Item Value Reference Range Interpretation Comme nts NA (test code = 6415577187) 135 mmol/L 135-145 K (test code = 5486120075) 4.1 mmol/L 3.5-5.0 CL (test code = 9398118476) 102 mmol/L 98-108 CO2 TOTAL (test code = 3466517391) 27 mmol/L 23-31 AGAP (test code = 9891266253) 6 2-16 BUN (test code = 2715048668) 23 mg/dL 7-23 GLUCOSE (test code = 1831756080) 97 mg/dL 70-110 CREATININE (test code = 4495633256) 0.54 mg/dL 0.60-1.25 L TOTAL BILI (test code = 7351517361) 0.4 mg/dL 0.1-1.1 CALCIUM (test code = 0182802953) 8.9 mg/dL 8.6-10.6 T PROTEIN (test code = 1579841561) 6.5 g/dL 6.3-8.2 ALBUMIN (test code = 8368570221) 3.6 g/dL 3.5-5.0 ALK PHOS (test code = 2761358844) 70 U/L 34-122 ALTv (test code = 1742-6) 20 U/L 5-50 AST(SGOT) (test code = 7559232326) 36 U/L 13-40 eGFR (test code = 0458820131) 147.5 mL/min/1.73m2 STEPHANIE (test code = STEPHANIE) [...] imaging tests). Lab Interpretation (test code = 31876-7) Abnormal [facility] WITH [id number] 20:32:47* Test Item Value Reference Range Interpretation Comme nts WBC (test code = 6690-2) 9.43 See_Comment [Automated [employer]] The system which generated this result transmitted reference range: 4.20 - 10.70 10*3/?L. The reference range was not used to interpret this result as normal/abnormal. RBC (test code = 789-8) 4.13 See_Comment L [Automated [employer]] The system which generated this result transmitted [...] 33.8 g/dL 31.2-35.0 RDW-SD (test code = 27149-4) 45.9 fL 38.5-51.6 RDW-CV (test code = 788-0) 14.0 % 12.1-15.4 PLT (test code = 777-3) 171 See_Comment [Automated Mouth Partya ge] The system which generated this result transmitted reference range: 150 - 328 10*3/?L. The reference range was not used to interpret this result as normal/abnormal. MPV (test code = 31296-7) 8.5 fL 9.8-13.0 L NRBC/100 WBC (test code = 4392575024) 0.0 See_Comment [Automated [employer] ssage] The system which generated this result transmitted reference range: 0.0 - 10.0 /100 WBCs. The reference range was not used to interpret this result as normal/abnormal. NRBC x10^3 (test code = 2628133907) See_Comment [Automated Mouth Partya ge] The system which generated this result transmitted reference range: 10*3/?L. The reference range was not used to interpret this result as normal/abnormal. GRAN MAT (NEUT) % (test code = 770-8) 79.4 % IMM GRAN % (test code = 3859038245) 0.20 % LYMPH % (test code = 736-9) 9.1 % MONO % (test code = 5905-5) 8.4 % EOS % (test code = 713-8) 2.7 % BASO % (test code = 706-2) 0.2 % GRAN MAT x10^3(ANC) (test code = 6892146686) 7.49 10*3/uL 1.99-6.95 H IMM GRAN x10^3 (test code = 8456344834) 0.00-0.06 LYMPH x10^3 (test code = 731-0) 0.86 10*3/uL 1.09-3.23 L MONO x10^3 (test code = 742-7) 0.79 10*3/uL 0.36-1.02 EOS x10^3 (test code = 711-2) 0.25 10*3/uL 0.06-0.53 BASO x10^3 (test code = 704-7) 0.01-0.09 Lab Interpretation (test code = 71126-7) Abnormal [facility] METABOLIC PANEL (NA, K, CL, CO2, GLUCOSE, BUN, CREATININE, CA)2022-10-30 09:42:32* Test Item Value Reference Range Interpretation Comme nts NA (test code = 9867177637) 135 mmol/L 135-145 K (test code = 0673118455) 4.3 mmol/L 3.5-5.0 CL (test code = 8070314747) 105 mmol/L 98-108 CO2 TOTAL (test code = 1432153725) 25 mmol/L 23-31 AGAP (test code = 0290098187) 5 2-16 BUN (test code = 0274234782) 12 mg/dL 7-23 GLUCOSE (test code = 5821756830) 104 mg/dL 70-110 CREATININE (test code = 7825291967) 0.59 mg/dL 0.60-1.25 L CALCIUM (test code = 2198834845) 8.8 mg/dL 8.6-10.6 eGFR (test code = 2324454610) 133.2 mL/min/1.73m2 STEPHANIE (test code = STEPHANIE) [...] imaging tests). Lab Interpretation (test code = 98859-4) [facility] 09:42:32* Test Item Value Reference Range Interpretation Comme nts MAGNESIUM (test code = 7944340911) 2.0 mg/dL 1.7-2.4 Lab Interpretation (test cod e = 09369-0) Normal [facility] WITH [id number] 09:34:52* Test Item Value Reference Range Interpretation Comme nts WBC (test code = 6690-2) 5.97 See_Comment [Automated Mouth Partya [employer]] The system which generated this result transmitted reference range: 4.20 - 10.70 10*3/?L. The reference range was not used to interpret this result as normal/abnormal. RBC (test code = 789-8) 3.81 See_Comment L [Automated Mouth [employer]ya [employer]] The system which generated this result transmitted [...] 33.2 g/dL 31.2-35.0 RDW-SD (test code = 03240-3) 44.7 fL 38.5-51.6 RDW-CV (test code = 788-0) 13.5 % 12.1-15.4 PLT (test code = 777-3) 207 See_Comment [Automated messa ge] The system which generated this result transmitted reference range: 150 - 328 10*3/?L. The reference range was not used to interpret this result as normal/abnormal. MPV (test code = 31231-4) 8.4 fL 9.8-13.0 L NRBC/100 WBC (test code = 2012782159) 0.0 See_Comment [Automated [employer] ssage] The system which generated this result transmitted reference range: 0.0 - 10.0 /100 WBCs. The reference range was not used to interpret this result as normal/abnormal. NRBC x10^3 (test code = 1646517086) See_Comment [Automated messa ge] The system which generated this result transmitted reference range: 10*3/?L. The reference range was not used to interpret this result as normal/abnormal. GRAN MAT (NEUT) % (test code = 770-8) 69.1 % IMM GRAN % (test code = 6315199139) 0.20 % LYMPH % (test code = 736-9) 17.3 % MONO % (test code = 5905-5) 9.7 % EOS % (test code = 713-8) 3.2 % BASO % (test code = 706-2) 0.5 % GRAN MAT x10^3(ANC) (test code = 7659893998) 4.13 10*3/uL 1.99-6.95 IMM GRAN x10^3 (test code = 1481609687) 0.00-0.06 LYMPH x10^3 (test code = 731-0) 1.03 10*3/uL 1.09-3.23 L MONO x10^3 (test code = 742-7) 0.58 10*3/uL 0.36-1.02 EOS x10^3 (test code = 711-2) 0.19 10*3/uL 0.06-0.53 BASO x10^3 (test code = 704-7) 0.03 10*3/uL 0.01-0.09 Lab Interpretation (test code = 28917-0) [facility]2022-10-29 13:19:23* Test Item Value Reference Range Interpretation Comme nts POCT GLU (test code = 2651036793) 99 mg/dL 70-110 Lab Interpretation (test cod e = 37039-1) Normal [facility] METABOLIC PANEL (NA, K, CL, CO2, GLUCOSE, BUN, CREATININE, CA)2022-10-29 08:19:42* Test Item Value Reference Range Interpretation Comme [facility] NA (test code = 5446288649) 132 mmol/L 135-145 L K (test code = 7987806606) 4.8 mmol/L 3.5-5.0 CL (test code = 4353280572) 102 mmol/L 98-108 CO2 TOTAL (test code = 7560726262) 25 mmol/L 23-31 AGAP (test code = 6823787928) 5 2-16 BUN (test code = 6274366093) 18 mg/dL 7-23 GLUCOSE (test code = 1279025354) 109 mg/dL 70-110 CREATININE (test code = 7386589486) 0.60 mg/dL 0.60-1.25 CALCIUM (test code = 8853750482) 8.8 mg/dL 8.6-10.6 eGFR (test code = 5523398237) 130.6 mL/min/1.73m2 STEPHANIE (test code = STEPHANIE) [...] imaging tests). Lab Interpretation (test code = 70170-4) [facility] 08:19:42* Test Item Value Reference Range Interpretation Comme nts MAGNESIUM (test code = 2696006856) 1.9 mg/dL 1.7-2.4 Lab Interpretation (test cod e = 83842-1) Normal [facility] WITH [id number] 08:00:22* Test Item Value Reference Range Interpretation Comme nts WBC (test code = 6690-2) 8.45 See_Comment [Automated Mouth [employer]] The system which generated this result transmitted reference range: 4.20 - 10.70 10*3/?L. The reference range was not used to interpret this result as normal/abnormal. RBC (test code = 789-8) 3.98 See_Comment L [Automated Mouth [employer]ya [employer]] The system which generated this result transmitted [...] 33.8 g/dL 31.2-35.0 RDW-SD (test code = 89250-0) 44.5 fL 38.5-51.6 RDW-CV (test code = 788-0) 13.6 % 12.1-15.4 PLT (test code = 777-3) 195 See_Comment [Automated messa ge] The system which generated this result transmitted reference range: 150 - 328 10*3/?L. The reference range was not used to interpret this result as normal/abnormal. MPV (test code = 34915-9) 8.7 fL 9.8-13.0 L NRBC/100 WBC (test code = 7162615177) 0.0 See_Comment [Automated [employer] ssage] The system which generated this result transmitted reference range: 0.0 - 10.0 /100 WBCs. The reference range was not used to interpret this result as normal/abnormal. NRBC x10^3 (test code = 3496009661) See_Comment [Automated messa ge] The system which generated this result transmitted reference range: 10*3/?L. The reference range was not used to interpret this result as normal/abnormal. GRAN MAT (NEUT) % (test code = 770-8) 75.3 % IMM GRAN % (test code = 2937038283) 0.20 % LYMPH % (test code = 736-9) 15.1 % MONO % (test code = 5905-5) 8.5 % EOS % (test code = 713-8) 0.7 % BASO % (test code = 706-2) 0.2 % GRAN MAT x10^3(ANC) (test code = 6496591850) 6.35 10*3/uL 1.99-6.95 IMM GRAN x10^3 (test code = 7465894077) 0.00-0.06 LYMPH x10^3 (test code = 731-0) 1.28 10*3/uL 1.09-3.23 MONO x10^3 (test code = 742-7) 0.72 10*3/uL 0.36-1.02 EOS x10^3 (test code = 711-2) 0.06 10*3/uL 0.06-0.53 BASO x10^3 (test code = 704-7) 0.01-0.09 Lab Interpretation (test code = 15947-4) Abnormal [facility] GLUCOSE (AUTOMATED)2022-10-29 02:05:51* Test Item Value Reference Range Interpretation Comme [facility] POCT GLU (test code = 4557070814) 162 mg/dL 70-110 H Lab Interpretation (test cod e = 23266-6) Abnormal [facility] GLUCOSE (AUTOMATED)2022-10-28 21:27:56* Test Item Value Reference Range Interpretation Comme [facility] POCT GLU (test code = 7672356240) 104 mg/dL 70-110 Lab Interpretation (test cod e = 20650-6) [facility]23-[facility] 20:41:29* Test Item Value Reference Range Interpretation Comme [facility] Procalcitonin (test code = 1663601896) 0.12 ng/mL <=0.07 H STEPHANIE (test code [...] further information please refer to:[email or web address] Lab Interpretation (test code = 38177-2) [facility] (NA, K, CL, CO2, GLUCOSE, BUN, CREATININE, CA)2022-10-28 17:04:09* Test Item Value Reference Range Interpretation Comme nts NA (test code = 7327600611) 133 mmol/L 135-145 L K (test code = 1908750275) 3.9 mmol/L 3.5-5.0 CL (test code = 7716163137) 103 mmol/L 98-108 CO2 TOTAL (test code = 0533110748) 26 mmol/L 23-31 AGAP (test code = 0214771834) 4 2-16 BUN (test code = 0309164370) 18 mg/dL 7-23 GLUCOSE (test code = 8038134399) 118 mg/dL 70-110 H CREATININE (test code = 2058965672) 0.59 mg/dL 0.60-1.25 L CALCIUM (test code = 9592801906) 8.5 mg/dL 8.6-10.6 L eGFR (test code = 5766415075) 133.2 mL/min/1.73m2 STEPHANIE (test code = STEPHANIE) [...] imaging tests). Lab Interpretation (test code = 42238-3) [facility]2022-10-28 16:57:29* Test Item Value Reference Range Interpretation Comme [facility] POCT GLU (test code = 0120371843) 98 mg/dL 70-110 Lab Interpretation (test cod e = 79400-6) Normal [facility] WITH [id number] 16:01:20* Test Item Value Reference Range Interpretation Comme nts WBC (test code = 6690-2) 8.13 See_Comment [Automated messa ge] The system which [...] 33.9 g/dL 31.2-35.0 RDW-SD (test code = 44879-7) 44.5 fL 38.5-51.6 RDW-CV (test code = 788-0) 13.6 % 12.1-15.4 PLT (test code = 777-3) 166 See_Comment [Automated messa ge] The system which generated this result transmitted reference range: 150 - 328 10*3/?L. The reference range was not used to interpret this result as normal/abnormal. MPV (test code = 10483-4) 8.6 fL 9.8-13.0 L NRBC/100 WBC (test code = 9548045297) 0.0 See_Comment [Automated [employer] ssage] The system which generated this result transmitted reference range: 0.0 - 10.0 /100 WBCs. The reference range was not used to interpret this result as normal/abnormal. NRBC x10^3 (test code = 2619120599) See_Comment [Automated messa ge] The system which generated this result transmitted reference range: 10*3/?L. The reference range was not used to interpret this result as normal/abnormal. GRAN MAT (NEUT) % (test code = 770-8) 77.6 % IMM GRAN % (test code = 6435808122) 0.20 % LYMPH % (test code = 736-9) 11.1 % MONO % (test code = 5905-5) 10.8 % EOS % (test code = 713-8) 0.2 % BASO % (test code = 706-2) 0.1 % GRAN MAT x10^3(ANC) (test code = 0391463725) 6.30 10*3/uL 1.99-6.95 IMM GRAN x10^3 (test code = 2347408209) 0.00-0.06 LYMPH x10^3 (test code = 731-0) 0.90 10*3/uL 1.09-3.23 L MONO x10^3 (test code = 742-7) 0.88 10*3/uL 0.36-1.02 EOS x10^3 (test code = 711-2) 0.06-0.53 L BASO x10^3 (test code = 704-7) 0.01-0.09 Lab Interpretation (test code = 87760-6) [facility]normal [facility]anoLaidic Acid Whole [id number] 15:43:36* Test Item Value Reference Range Interpretation Comme [facility] LACTIC ACID (test code = 2519889461) 1.48 mmol/L 0.50-2.20 Lab Interpretation (test cod e = 69887-6) [facility]2022-10-28 13:55:42* Test Item Value Reference Range Interpretation Comme [facility] POCT GLU (test code = 9159915512) 108 mg/dL 70-110 Lab Interpretation (test cod e = 15322-5) Normal [facility]anoGlycosylated Hemoglobin (A1C)2022-10-28 13:35:21* Test Item Value Reference Range Interpretation Comme [facility] HGB A1C (test code = 4548-4) 5.4 % 4.0-5.7 STEPHANIE (test code = STEPHANIE) Reference RangesNormal: <5.7%Prediabetes: 5.7 - 6.4%Diabetes: > 6.5% Lab Interpretation (test code = 88263-4) [facility] 12:48:08* Test Item Value Reference Range Interpretation Comme nts MAGNESIUM (test code = 0946198491) 2.0 mg/dL 1.7-2.4 Lab Interpretation (test cod e = 61358-3) Normal [facility] [id number] 04:32:06* Test Item Value Reference Range Interpretation Comme nts TROPONIN I (test code = 4633987928) 0.029 ng/mL <=0.034 STEPHANIE (test code = [...] of biotin. Lab Interpretation (test code = 92976-2) [facility]OLIC PANEL (82640)2022-10-28 04:21:43* Test Item Value Reference Range Interpretation Comme nts NA (test code = 7021635686) 133 mmol/L 135-145 L K (test code = 2705165965) 4.2 mmol/L 3.5-5.0 CL (test code = 5323514927) 100 mmol/L 98-108 CO2 TOTAL (test code = 8513722624) 23 mmol/L 23-31 AGAP (test code = 2016216053) 10 2-16 BUN (test code = 9707727293) 24 mg/dL 7-23 H GLUCOSE (test code = 0573624389) 217 mg/dL 70-110 H CREATININE (test code = 0528749109) 0.79 mg/dL 0.60-1.25 TOTAL BILI (test code = 2916492914) 0.5 mg/dL 0.1-1.1 CALCIUM (test code = 3741183642) 8.6 mg/dL 8.6-10.6 T PROTEIN (test code = 6088549470) 6.6 g/dL 6.3-8.2 ALBUMIN (test code = 1179512097) 3.6 g/dL 3.5-5.0 ALK PHOS (test code = 6834542047) 76 U/L 34-122 ALTv (test code = 1742-6) 20 U/L 5-50 AST(SGOT) (test code = 9189481839) 31 U/L 13-40 eGFR (test code = 7056909981) 95.1 mL/min/1.73m2 STEPHANIE (test code = STEPHANIE) [...] imaging tests). Lab Interpretation (test code = 69336-9) Abnormal [facility] WITH [id number] 03:55:19* Test Item Value Reference Range Interpretation [...] 33.9 g/dL 31.2-35.0 RDW-SD (test code = 58201-1) 44.8 fL 38.5-51.6 RDW-CV (test code = 788-0) 13.6 % 12.1-15.4 PLT (test code = 777-3) 189 See_Comment [Automated message] The system which generated this result transmitted reference range: 150 - 328 10*3/?L. The reference range was not used to interpret this result as normal/abnormal. MPV (test code = 32495-4) 8.7 fL 9.8-13.0 L NRBC/100 WBC (test code = 8022245754) 0.0 See_Comment [Automated message] The system which generated this result transmitted reference range: 0.0 - 10.0 /100 WBCs. The reference range was not used to interpret this result as normal/abnormal. NRBC x10^3 (test code = 3636530244) See_Comment [Automated message] The system which generated this result transmitted reference range: 10*3/?L. The reference range was not used to interpret this result as normal/abnormal. GRAN MAT (NEUT) % (test code = 770-8) 83.5 % IMM GRAN % (test code = 1559193426) 0.60 % LYMPH % (test code = 736-9) 6.0 % MONO % (test code = 5905-5) 9.6 % EOS % (test code = 713-8) 0.1 % BASO % (test code = 706-2) 0.2 % GRAN MAT x10^3(ANC) (test code = 2454973465) 10.59 10*3/uL 1.99-6.95 H IMM GRAN x10^3 (test code = 0897733395) 0.08 10*3/uL 0.00-0.06 H LYMPH x10^3 (test code = 731-0) 0.76 10*3/uL 1.09-3.23 L MONO x10^3 (test code = 742-7) 1.21 10*3/uL 0.36-1.02 H EOS x10^3 (test code = 711-2) 0.06-0.53 L BASO x10^3 (test code = 704-7) 0.01-0.09 Lab Interpretation (test code = 00544-7) Abnormal [facility] CULTURE [id number] 03:02:22* Test Item Value Reference Range Interpretation Comme nts Blood Culture-Aerobic (test code = 83376-3) No organisms isolated No growth Previous preliminary [...] 2201 CDT Blood Culture-Anaerobic (test code = 86889-8) No organisms isolated No growth Previous preliminary [...] 2201 CDT Lab Interpretation (test code = 22882-5) [id number]:02:[facility]* Test Item Value Reference Range Interpretation Comme nts Blood Culture-Aerobic (test code = 44313-9) No organisms isolated No growth Previous preliminary [...] 2201 CDT Blood Culture-Anaerobic (test code = 81908-1) No organisms isolated No growth Previous preliminary [...] 2201 CDT Lab Interpretation (test code = 56217-8) [facility] (97514[facility]2022-07-21 03:19:43* Test Item Value Reference Range Interpretation Comme nts NA (test code = 6061819513) 137 mmol/L 135-145 K (test code = 0004466461) 4.6 mmol/L 3.5-5.0 CL (test code = 6933193265) 102 mmol/L 98-108 CO2 TOTAL (test code = 8318187493) 25 mmol/L 23-31 AGAP (test code = 2203646444) 10 2-16 BUN (test code = 7769224592) 16 mg/dL 7-23 GLUCOSE (test code = 0599084008) 147 mg/dL 70-110 H CREATININE (test code = 5684696461) 1.06 mg/dL 0.60-1.25 TOTAL BILI (test code = 8575565093) 0.4 mg/dL 0.1-1.1 CALCIUM (test code = 6956885206) 9.3 mg/dL 8.6-10.6 T PROTEIN (test code = 7084325594) 6.3 g/dL 6.3-8.2 ALBUMIN (test code = 7948378037) 3.7 g/dL 3.5-5.0 ALK PHOS (test code = 9454344203) 85 U/L 34-122 ALTv (test code = 1742-6) 19 U/L 5-50 AST(SGOT) (test code = 1860292992) 23 U/L 13-40 eGFR (test code = 1790463988) 67.7 mL/min/1.73m2 STEPHANIE (test code = STEPHANIE) [...] imaging tests). Lab Interpretation (test code = 13268-2) [facility] [id number] 03:10:02* Test Item Value Reference Range Interpretation Comme nts ESR (test code = 05449-5) 20 See_Comment H [Automated messa ge] The system which generated this result transmitted reference range: 0 - 10 mm/HR. The reference range was not used to interpret this result as normal/abnormal. Lab Interpretation (test code = 53592-9) Abnormal [facility] WITH [id number] 02:50:23* Test Item Value Reference Range Interpretation Comme nts WBC (test code = 6690-2) 8.04 See_Comment [Automated messa ge] The system which [...] 32.6 g/dL 31.2-35.0 RDW-SD (test code = 16878-2) 46.5 fL 38.5-51.6 RDW-CV (test code = 788-0) 13.5 % 12.1-15.4 PLT (test code = 777-3) 239 See_Comment [Automated messa ge] The system which generated this result transmitted reference range: 150 - 328 10*3/?L. The reference range was not used to interpret this result as normal/abnormal. MPV (test code = 64452-9) 8.6 fL 9.8-13.0 L NRBC/100 WBC (test code = 6422005811) 0.0 See_Comment [Automated [employer] ssage] The system which generated this result transmitted reference range: 0.0 - 10.0 /100 WBCs. The reference range was not used to interpret this result as normal/abnormal. NRBC x10^3 (test code = 1997177155) See_Comment [Automated messa ge] The system which generated this result transmitted reference range: 10*3/?L. The reference range was not used to interpret this result as normal/abnormal. GRAN MAT (NEUT) % (test code = 770-8) 79.8 % IMM GRAN % (test code = 2779556653) 0.50 % LYMPH % (test code = 736-9) 11.8 % MONO % (test code = 5905-5) 6.8 % EOS % (test code = 713-8) 0.7 % BASO % (test code = 706-2) 0.4 % GRAN MAT x10^3(ANC) (test code = 7629276683) 6.41 10*3/uL 1.99-6.95 IMM GRAN x10^3 (test code = 1019491767) 0.04 10*3/uL 0.00-0.06 LYMPH x10^3 (test code = 731-0) 0.95 10*3/uL 1.09-3.23 L MONO x10^3 (test code = 742-7) 0.55 10*3/uL 0.36-1.02 EOS x10^3 (test code = 711-2) 0.06 10*3/uL 0.06-0.53 BASO x10^3 (test code = 704-7) 0.03 10*3/uL 0.01-0.09 Lab Interpretation (test code = 59580-6) [facility]normal [facility] [id number] 21:13:33* Test Item Value Reference Range Interpretation Comme nts ESR (test code = 56473-4) 11 See_Comment H [Automated Mouth Partya ge] The system which generated this result transmitted reference range: 0 - 10 mm/HR. The reference range was not used to interpret this result as normal/abnormal. Lab Interpretation (test code = 94499-1) Abnormal [facility] MET[facility]OLIC PANEL (35935)2022-07-18 20:55:16* Test Item Value Reference Range Interpretation Comme nts NA (test code = 6412031179) 135 mmol/L 135-145 K (test code = 4775830580) 4.7 mmol/L 3.5-5.0 CL (test code = 7081415150) 103 mmol/L 98-108 CO2 TOTAL (test code = 0878983580) 23 mmol/L 23-31 AGAP (test code = 6432399042) 9 2-16 BUN (test code = 3443484599) 15 mg/dL 7-23 GLUCOSE (test code = 6349384171) 89 mg/dL 70-110 CREATININE (test code = 2811206803) 0.71 mg/dL 0.60-1.25 TOTAL BILI (test code = 3520723402) 0.5 mg/dL 0.1-1.1 CALCIUM (test code = 8752065727) 8.9 mg/dL 8.6-10.6 T PROTEIN (test code = 7334520879) 6.1 g/dL 6.3-8.2 L ALBUMIN (test code = 8742773751) 3.5 g/dL 3.5-5.0 ALK PHOS (test code = 2744908915) 82 U/L 34-122 ALTv (test code = 1742-6) 18 U/L 5-50 AST(SGOT) (test code = 5093956629) 24 U/L 13-40 eGFR (test code = 3715191851) 107.6 mL/min/1.73m2 STEPHANIE (test code = STEPHANIE) [...] imaging tests). Lab Interpretation (test code = 33308-4) Abnormal [facility] WITH [id number] 20:37:13* Test Item Value Reference Range Interpretation Comme nts WBC (test code = 6690-2) 6.41 See_Comment [Automated Mouth Partya [employer]] The system which generated this result transmitted reference range: 4.20 - 10.70 10*3/?L. The reference range was not used to interpret this result as normal/abnormal. RBC (test code = 789-8) 4.17 See_Comment L [Automated Mouth [employer]] The system which generated this result transmitted [...] 32.9 g/dL 31.2-35.0 RDW-SD (test code = 06902-6) 45.5 fL 38.5-51.6 RDW-CV (test code = 788-0) 13.4 % 12.1-15.4 PLT (test code = 777-3) 246 See_Comment [Automated Mouth [employer]ya [employer]] The system which generated this result transmitted reference range: 150 - 328 10*3/?L. The reference range was not used to interpret this result as normal/abnormal. MPV (test code = 48608-7) 8.7 fL 9.8-13.0 L IPF % (test code = 0425725797) 0.8 % 1.2-10.7 L Platelet count measured by fluorescence method. NRBC/100 WBC (test code = 9837514219) 0.0 See_Comment [Automated me ssage] The system which generated this result transmitted reference range: 0.0 - 10.0 /100 WBCs. The reference range was not used to interpret this result as normal/abnormal. NRBC x10^3 (test code = 6138894210) See_Comment [Automated messa ge] The system which generated this result transmitted reference range: 10*3/?L. The reference range was not used to interpret this result as normal/abnormal. GRAN MAT (NEUT) % (test code = 770-8) 70.9 % IMM GRAN % (test code = 5492065203) 0.30 % LYMPH % (test code = 736-9) 18.3 % MONO % (test code = 5905-5) 8.1 % EOS % (test code = 713-8) 1.9 % BASO % (test code = 706-2) 0.5 % GRAN MAT x10^3(ANC) (test code = 6277424215) 4.55 10*3/uL 1.99-6.95 IMM GRAN x10^3 (test code = 7857767734) 0.00-0.06 LYMPH x10^3 (test code = 731-0) 1.17 10*3/uL 1.09-3.23 MONO x10^3 (test code = 742-7) 0.52 10*3/uL 0.36-1.02 EOS x10^3 (test code = 711-2) 0.12 10*3/uL 0.06-0.53 BASO x10^3 (test code = 704-7) 0.03 10*3/uL 0.01-0.09 Lab Interpretation (test code = 39357-6) [facility]normal [facility] [id number] 17:59:56* Test Item Value Reference Range Interpretation Comme nts TROPONIN I (test code = 5246428922) 0.008 ng/mL <=0.034 STEPHANIE (test code = [...] of biotin. Lab Interpretation (test code = 14691-0) Normal [facility]2023-03-07 17:48:33* Test Item Value Reference Range Interpretation Comme nts MAGNESIUM (test code = 5382241548) 1.9 mg/dL 1.7-2.4 Lab Interpretation (test cod e = 30443-4) Normal [facility] PANEL (36119)2022-06-10 17:48:14* Test Item Value Reference Range Interpretation Comme nts NA (test code = 7251109744) 135 mmol/L 135-145 K (test code = 4422764082) 4.2 mmol/L 3.5-5.0 CL (test code = 5285076709) 104 mmol/L 98-108 CO2 TOTAL (test code = 1562375333) 24 mmol/L 23-31 AGAP (test code = 1998010088) 7 2-16 BUN (test code = 7532390313) 13 mg/dL 7-23 GLUCOSE (test code =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 infiltration noted, No adverse reaction to medications given while in ED. Report given to [facility] EMS personnel [facility] 2022-10-28 03:54:12 Formatting of this n ote might be different from the original. Pt pending ICU bed assignment, at bedside is aware of delay in transfer. Pt resting on back at this time, MAP of 71. [facility] 2022-10-28 03:12:38 Formatting of this n ote might be different from the original. Pt sleeping on right side with cuff on left arm. Provider aware [facility] 2022-10-28 01:19:48 Formatting of this n ote might be different from the original. Pt laying on right side with cuff on LUE [facility] 2022-10-27 22:26:42 Formatting of this n ote might be different from the original. Pt started ceftin 3 days ago for foul smelling urine. He was also medicated with tylenol at 1900 [facility] 2022-10-27 22:04:22 Formatting of this n [...] WC bound at baseline. Imani Pelayo RN [facility] 2022-10-27 21:58:00 Formatting of this n ote is different from the original. 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: FSBG;IVF Travel and Exposure Screening: Symptoms [...] N/A 02/23/2018 Surgeon: Easton Talavera MD; Location: [facility] OR [facility] BASAL CELL CARCINOMA EXCISION N/A 02/23/2018 Surgeon: Easton Talavera MD; Location: [facility] OR [facility] LACERATION REPAIR (SHX) on back PHACOEMULSIFICATION OF CATARACT WITH INTRAOCULAR LENS IMPLANT Right 08/16/2015 Surgeon: Rafael Grant MD; Location: [facility] OR [facility] PHACOEMULSIFICATION OF CATARACT WITH INTRAOCULAR LENS IMPLANT Left 09/13/2015 Surgeon: Rafael Grant MD; Location: [facility] Review of Systems: Review of Systems Unable [...] 0.01 - 0.09 10*3/uL COMP. METABOLIC PANEL (80334) - Abnormal NA 133 (*) 135 - [...] URINALYSIS CBC WITH DIFF COMP. METABOLIC PANEL (46775) Lactic Acid Whole Blood Lactic Acid Whole [...] Electronically signed by: Marcie Nickerson DO 10/27/22 2[address] [employer] STAFF [facility]
[2024-07-29 13:13] LABS: Absolute Lymphocytes (CBC) 0.9 K/uL (0.7-4.9); Absolute Monocytes 1.1 K/uL (0.1-1.3); Absolute Neutrophil 6.7 K/uL (1.8-8.0); Basophils % 0.3 % (0-1.3); Eosinophils % 0.5 % (0-4.4); Hematocrit 36.5 % (39.6-49.0); Hemoglobin 12.5 g/dL (13.6-17.9); Lymphocytes % 10.3 % (15.3-44.8); MCHC 34.4 g/dL (32.0-36.0); MCV 81.3 fL (80-100); MPV 6.8 fL (7.6-11.3); Monocytes % 12.6 % (3.3-12.3); Neutrophils % 76.3 % (41.7-73.7); Platelets 235 thou/uL (152-406); RBC Red Blood Cell Count 4.48 M/uL (4.33-5.43); Red Cell Distribution Width 16.4 % (12.1-15.2)
[2024-07-29 13:19] LABS: PT Prothrombin Time 14.3 SECONDS (10-13.0); Protime INR 1.27
[2024-07-29 13:37] LABS: Albumin/Globulin Ratio 0.7 (1.1-1.8); Anion Gap 7.2 mEq/L (5.0-15.0); Bilirubin Total 0.4 mg/dL (0.2-1.0); Globulin 4.2 g/dL (2.3-3.5); Potassium 4.2 mEq/L (3.5-5.1); Protein, Total 7.2 g/dL (6.4-8.2); Troponin High Sensitivity 10.5 pg/mL (<58.9)
[2024-07-29 13:44] LABS: Influenza A Ag Negative; Influenza B Ag Negative; SARS-CoV-2 Antigen Rapid Res Negative (Negative)
[2024-07-29 13:53] LABS: Specific Gravity 1.026 (1.005-1.030); Sqamous Epithelial None Seen /HPF (None Seen); Urine Bacteria None Seen /HPF (<20); Urine Bilirubin NEGATIVE (Negative); Urine Blood Negative (Negative); Urine Clarity Clear (Clear); Urine Color Yellow (Yellow); Urine Culture Reflex Order NOT NEEDED; Urine Glucose NEGATIVE (Negative); Urine Ketones NEGATIVE (Negative); Urine Microscopic Reflex YN ORDER UMIC; Urine Mucus 1+ /HPF (None Seen); Urine Nitrite NEGATIVE (Negative); Urine Protein TRACE (Negative); Urine RBC <5 /HPF (None Seen); Urine Urobilinogen Normal (Normal); Urine WBC <5 /HPF (<5)
--- NOTE | 2024-07-29 14:15 | RAD REPORT ---
EXAMINATION: ONE VIEW CHEST XR CLINICAL INDICATION: Male, 79 years old.,CHEST PAIN TECHNIQUE: Frontal chest projection is submitted. Examination is limited by patient positioning and t echnique. COMPARISON: 06/15/2024 FINDINGS: The lungs are well inflated and clear. No pneumothorax or sizable effusion. The heart is normal in s ize. Mediastinal contours are unremarkable. IMPRESSION: No acute intrathoracic abnormalities.
--- NOTE | 2024-07-29 15:16 | P.HP ---
Patient History Date of Service: 07/29/24 Allergies sulfamethoxazole [From Bactrim] Allergy (Verified 09/08/23 19:59) Anaphylaxis trimethoprim [From Bactrim] Allergy (Verified 09/08/23 19:59) Anaphylaxis Home Medications: Brimonidine Tartrate [Lumify] 1 drop EACH EYE BID 09/08/23 Cholecalciferol (Vitamin D3) [Vitamin D3] 1 tab PO DAILY 09/08/23 Galantamine HBr [Galantamine ER] 8 mg PO BID 09/08/23 Guaifenesin [Cough Syrup] 10 ml PO Q4H PRN 09/08/23 Lactobacillus Acidophilus 1 cap PO DAILY 09/08/23 Lactulose 10 gm PO DAILY PRN 09/08/23 Latanoprost Ophth [Xalatan 0.005%*] 1 drop EACH EYE BEDTIME 09/08/23 Omeprazole 20 mg PO DAILY 09/08/23 Polyethyl Gly 3350 [Glycolax*] 1 packet PO DAILY PRN 09/08/23 Risperidone [Risperdal] 2 mg PO BEDTIME 09/08/23 Simvastatin 40 mg PO BEDTIME 09/08/23 Tamsulosin HCl 1 cap PO BEDTIME 09/08/23 Timolol 0.5% Opth [Timoptic 0.5% Opth*] 1 drop EACH EYE BID 09/08/23 Trazodone HCl 25 mg PO BEDTIME 09/08/23 Zinc Oxide [Zinc Oxide 20%*] 1 sd TOP TID 09/08/23 clonazePAM [Clonazepam] 0.75 mg PO BEDTIME 09/08/23 Diphenhydramine [Benadryl*] 25 mg IV Q6H PRN vial 09/15/23 Jb [Jb*] 1 pkt PO BID 09/15/23 Metoprolol Succinate [Toprol Xl*] 12.5 mg PO DAILY tab 09/15/23 Acetaminophen [Tylenol*] 1,000 mg PO BEDTIME 03/15/24 Apixaban [Eliquis] 5 mg PO BID 03/15/24 Senosides [Senokot*] 2 tab PO BID 03/15/24 Lactulose 30 ml PO Q12HP PRN #1000 ml 03/18/24 - Past Medical/Surgical History Diabetic: No -: paranoid schizophrenia -: carotid bruit -: glaucoma -: Alzheimer's dementia -: cataract sx -: back sx - Family History Father -: Cancer Mother -: Other (see notes) Notes: alziehmers - Social History Alcohol use: No CD- Drugs: No Caffeine use: No Physical Examination - Studies Laboratory Data (last 24 hrs) 07/29/24 07/29/24 07/29/24 13:03 13:03 13:03 WBC 8.80 Hgb 12.5 L Hct 36.5 L Plt Count 235 PT 14.3 H INR 1.27 APTT 33.0 Sodium 138 Potassium 4.2 BUN 22 H Creatinine 0.78 Glucose 126 H Total Bilirubin 0.4 AST 12 L ALT 20 Alkaline Phosphatase 96 Assessment and Plan - Advance Directives Does patient have a Living Will: No Does patient have a Durable POA for Healthcare: No
--- NOTE | 2024-07-29 15:35 | ER ---
Nurse's Notes [facility] Name: Chauncey [facility] Age: 79 yrs Sex: Male : 1945 Arrival Date: 07/29/2024 Time: 12:20 Bed 17 Private MD: Diagnosis: Fever, unspecified;Dyspnea;Altered mental status Presentation: 07/29 12:24 Chief complaint: EMS states: pt's reported fever and cough. EMS reports pt is aa5 normally A\\T\\O x 0, reports temperature was 98.7*F upon their arrival. 12:24 Coronavirus screen: cough unrelated to allergies. Ebola Screen: Unable to complete the aa5 Ebola screening because:. Initial Sepsis Screen: Does the patient meet any 2 criteria? HR > 90 bpm. Does the patient have a suspected source of infection? No. Patient's initial sepsis screen is negative. Risk Assessment: Do you want to hurt yourself or someone else? Unable to obtain. Onset of symptoms was July 29, 2024. 12:24 Acuity: ANNEMARIE 2 aa5 12:24 Method Of Arrival: EMS: [facility] aa5 12:24 Care prior to arrival: Glucose check: 151. aa5 Historical: - Allergies: 12:25 Bactrim; aa5 - PMHx: 12:25 Alzheimer's disease; Cerebrovascular accident; Dementia; Glaucoma; Hypertensive aa5 disorder; - PSHx: 12:25 back; cataract; aa5 - Immunization history:: Adult Immunizations unknown. - Infectious Disease History:: unknown . - Social history:: Smoking status: unknown. - Family history:: not pertinent. Screenin:15 [facility] ED Fall Risk Assessment (Adult) History of falling in the last 3 months, rg5 including since admission No falls in past 3 months (0 pts) Confusion or Disorientation Yes (5 pts) Intoxicated or Sedated No (0 pts) Impaired Gait No (0 pts) Mobility Assist Device Used No (0 pt) Altered Elimination No (0 pt) Score/Fall Risk Level 0 - 2 = Low Risk Oriented to surroundings, Maintained a safe environment, Provided non-skid footwear. Abuse screen: Denies threats or abuse. Nutritional screening: No deficits noted. Tuberculosis screening: No symptoms or risk factors identified. Assessment: 12:24 General: Appears uncomfortable, ill, Behavior is calm, quiet. Pain: Unable to use pain aa5 scale. Does not appear to understand pain scale. Neuro: Level of Consciousness is sleepy with eyes closed, A\\T\\O x 0 and unable to follow commands, pt withdrawals and moans to pain. . Oriented to none Pupils are pinpoint. Cardiovascular: Heart tones S1 S2 present Rhythm is sinus tachycardia. Respiratory: Airway is patent Respiratory effort is even, unlabored, Respiratory pattern is regular, symmetrical, tachypnea Breath sounds with wheezes bilaterally. the patient has moderate shortness of breath. GI: Abdomen is round distended, Bowel sounds present X 4 quads. : Brief noted. EENT: No signs and/or symptoms were reported regarding the EENT system. Derm: Skin is pink, warm \\T\\ dry. Musculoskeletal: Range of motion: limited in all extremities. 12:45 Reassessment: Pt coughing frequently, pt orally suctioned intermittently to assist with aa5 sputum removal. . 13:30 Neuro: Level of Consciousness is sleepy with eyes closed. . Oriented to none. aa5 Respiratory: Airway is patent Respiratory effort is even, unlabored, Respiratory pattern is regular, symmetrical, tachypnea. Derm: Skin is pink, warm \\T\\ dry. 13:30 Reassessment: Pt remains coughing frequently and orally suctioned intermittently. aa5 aware. . 14:30 Reassessment: No changes from previously documented assessment. aa5 16:00 Reassessment: Pt's at bedside, pt's reports pt is normally "more awake and aa5 speaks some words" . 16:00 Neuro: Level of Consciousness is sleepy with eyes closed. . Respiratory: Airway is aa5 patent Respiratory effort is even, unlabored, Respiratory pattern is regular, symmetrical, tachypnea. Derm: Skin is pink, warm \\T\\ dry. 17:15 Reassessment: No changes from previously documented assessment. aa5 18:10 Reassessment: Pt to CT . aa5 18:40 Reassessment: Pt back from CT scan . aa5 19:15 General: Appears in no apparent distress. comfortable, Behavior is calm, cooperative, rg5 appropriate for age. Pain: Denies pain. Neuro: Level of Consciousness is awake, alert. Cardiovascular: Denies chest pain, Patient's skin is warm and dry. Respiratory: Airway is patent Trachea midline Respiratory effort is even, unlabored, Breath sounds are clear. GI: Abdomen is round non-distended. : No signs and/or symptoms were reported regarding the genitourinary system. EENT: No deficits noted. Derm: Skin is fragile, Skin is dry, Skin is normal, Skin temperature is warm. Musculoskeletal: Circulation, motion, and sensation intact. Range of motion:. 20:45 Reassessment: No changes from previously documented assessment. Patient and/or family rg5 updated on plan of care and expected duration. Pain level reassessed. Patient is alert, oriented x 3, equal unlabored respirations, skin warm/dry/pink. Vital Signs: 12:24 BP 114 / 76; Pulse 101; Resp 14 S; Temp 99.7(A); Pulse Ox 96% on R/A; Weight 84.82 kg aa5 (M); 13:30 BP 146 / 80; Pulse 94; Resp 28 S; Pulse Ox 97% on R/A; aa5 14:30 BP 139 / 97; Pulse 94; Resp 33 S; Pulse Ox 96% on R/A; aa5 15:30 BP 132 / 95; Pulse 100; Resp 38 S; Pulse Ox 97% on R/A; aa5 16:00 BP 125 / 90; Pulse 115; Resp 34 S; Temp 100.1(A); Pulse Ox 99% on Nebulizer Mask; aa5 17:00 BP 134 / 81; Pulse 99; Resp 30 S; Temp 100.1(A); Pulse Ox 95% ; aa5 19:10 BP 121 / 96; Pulse 100; Resp 19; Pulse Ox 94% on R/A; Pain 0/10; rg5 20:50 BP 116 / 78; Pulse 100; Resp 18; Pulse Ox 95% ; Pain 0/10; rg5 19:10 Pain Scale: Adult rg5 20:50 Pain Scale: Adult rg5 ED Course: 12:24 Patient arrived in ED. aa5 12:24 Carla Blake RN is Primary Nurse. aa5 12:24 Wolf Okeefe MD is Attending Physician. rt 12:24 Arm band placed on. aa5 12:27 Triage completed. aa5 13:00 Inserted saline lock: 22 gauge in left upper arm, using aseptic technique. Flushed with ap3 10 mL NS. 13:03 Initial lab(s) drawn, by me, sent to lab. First set of blood cultures drawn. ap3 13:23 Second set of blood cultures drawn by me. ap3 13:32 Straight cath inserted, using sterile technique, 16 Fr. Specimen obtained. Patient ap3 tolerated well. 13:33 Inserted saline lock: 22 gauge in right wrist, using aseptic technique. Flushed with 10 ap3 mL NS. 13:49 Chest Single View XRAY In Process Unspecified. EDMS 15:34 Kirill Salazar MD is Hospitalizing Provider. rt 18:32 CT Chest For PE Angio In Process Unspecified. EDMS 19:00 Report given to REJI Olivares. aa5 19:15 Patient has correct armband on for positive identification. Bed in low position. Call rg5 light in reach. Side rails up X 1. Adult w/ patient. Door closed. Noise minimized. 19:15 No provider procedures requiring assistance completed. Patient admitted, IV remains in rg5 place. intact, No redness/swelling at site. 19:18 Provided Education on: need for admit. rg5 Administered Medications: 16:00 Drug: Albuterol Inhalation 2.5 mg Inhalation once Route: Inhalation; aa5 16:00 Drug: Ipratropium Inhalation Aerosol 0.5 mg Inhalation once; VO at 1510 Route: aa5 Inhalation; 16:15 Drug: LevaQUIN IVPB 750 mg IVPB once Route: IVPB; Site: right wrist; aa5 17:15 Follow up: IV Status: Completed infusion; IV Intake: 150ml aa5 16:23 Not Given (Physician Discretion): [id number] mcg Inhalation once aa5 Medication: 19:15 VIS not applicable for this client. rg5 Intake: 17:15 IV: 150ml; Total: 150ml. aa5 Outcome: 15:35 Decision to Hospitalize by Provider. rt 19:15 Admitted to ER Hold. Please see [facility] for further documentation. rg5 19:15 Condition: stable 19:15 Instructed on the need for admit, 21:49 Patient left the ED. rg5 Signatures: Dispatcher [employer] EDMS Carla Blake RN RN aa5 Imani Holly RN RN ap3 Wolf Okeefe MD MD rt Marshall Jo RN RN rg5 Corrections: (The following items were deleted from the chart) 13:37 13:23 Inserted saline lock: 22 gauge in right wrist, using aseptic technique. Flushed ap3 with 10 mL NS ap3 19:14 16:00 BP 125 / 90; Pulse 115bpm; Resp 44bpm; Spontaneous; Pulse Ox 99% RA; Temp 100.1F aa5 Axillary; aa5 19:21 16:00 BP 125 / 90; Pulse 115bpm; Resp 34bpm; Spontaneous; Pulse Ox 99% RA; Temp 100.1F aa5 Axillary; aa5
--- NOTE | 2024-07-29 15:35 | EDPHYS ---
Physician Documentation [facility] Name: Chauncey Dunn Age: 79 yrs Sex: Male : 1945 Arrival Date: 07/29/2024 Time: 12:20 Bed 17 Private MD: ED Physician Wolf Okeefe HPI: 07/29 16:46 This 79 yrs old Male presents to ER via EMS with complaints of Fever, Cough. rt 16:46 History obtained mostly per patient's . Patient presents to the ED with a cough and rt reported fever for the past few days. The patient is reportedly baseline at ANO x 0 but the states that he is more lethargic than usual. She reports that he has difficulty breathing. Denies other acute complaints at this time, symptoms are moderate in severity, no other aggravating or alleviating factors.. Historical: - Allergies: 12:25 Bactrim; aa5 - PMHx: 12:25 Alzheimer's disease; Cerebrovascular accident; Dementia; Glaucoma; Hypertensive aa5 disorder; - PSHx: 12:25 back; cataract; aa5 - Immunization history:: Adult Immunizations unknown. - Infectious Disease History:: unknown . - Social history:: Smoking status: unknown. - Family history:: not pertinent. ROS: 16:46 Constitutional: rt 16:46 Unable to obtain ROS due to baseline dementia, Exam: 16:45 ECG was reviewed by the Attending Physician. rt 16:46 Chest/axilla: Normal chest wall appearance and motion. Nontender with no deformity. rt No lesions are appreciated. Cardiovascular: Regular rate and rhythm with a normal S1 and S2. No gallops, murmurs, or rubs. Normal PMI, no JVD. No pulse deficits. Abdomen/GI: Soft, non-tender, with normal bowel sounds. No distension or tympany. No guarding or rebound. No evidence of tenderness throughout. Skin: Warm, dry with normal turgor. Normal color with no rashes, no lesions, and no evidence of cellulitis. MS/ Extremity: Pulses equal, no cyanosis. Neurovascular intact. Full, normal range of motion. 16:46 Constitutional: The patient appears Withdrawn, poorly responsive 16:46 Respiratory: Wheezes heard diffusely, moderate respiratory distress, Vital Signs: 12:24 BP 114 / 76; Pulse 101; Resp 14 S; Temp 99.7(A); Pulse Ox 96% on R/A; Weight 84.82 kg aa5 (M); 13:30 BP 146 / 80; Pulse 94; Resp 28 S; Pulse Ox 97% on R/A; aa5 14:30 BP 139 / 97; Pulse 94; Resp 33 S; Pulse Ox 96% on R/A; aa5 15:30 BP 132 / 95; Pulse 100; Resp 38 S; Pulse Ox 97% on R/A; aa5 16:00 BP 125 / 90; Pulse 115; Resp 34 S; Temp 100.1(A); Pulse Ox 99% on Nebulizer Mask; aa5 17:00 BP 134 / 81; Pulse 99; Resp 30 S; Temp 100.1(A); Pulse Ox 95% ; aa5 19:10 BP 121 / 96; Pulse 100; Resp 19; Pulse Ox 94% on R/A; Pain 0/10; rg5 20:50 BP 116 / 78; Pulse 100; Resp 18; Pulse Ox 95% ; Pain 0/10; rg5 19:10 Pain Scale: Adult rg5 20:50 Pain Scale: Adult rg5 MDM: 12:32 Medical Screening Exam initiated rt 16:46 Differential diagnosis: Viral syndrome, flu, COVID, pneumonia, CHF, bronchospasm. Data rt reviewed: vital signs, nurses notes, lab test result(s), EKG, radiologic studies. Consideration of Admission/Observation Patient was admitted/placed on observation. Management of patient was discussed with the following: Hospitalist: Agrees to admit. I considered the following discharge prescriptions or medication management in the emergency department Medications were administered in the Emergency Department. See MAR. Independent interpretation of the following test(s) in the Emergency Department X-Ray: My interpretation is No infiltrate seen on interpretation of x-ray images. Care significantly affected by the following chronic conditions: Hypertension. Counseling: I had a detailed discussion with the patient and/or guardian regarding the historical points, exam findings, and any diagnostic results supporting the discharge/admit diagnosis, lab results, radiology results, the need for further work-up and treatment in the hospital. Response to treatment: There is no appreciated change of the patient's symptoms at this time. 07/29 12:37 Order name: Blood Culture Adult (2) rt 07/29 12:37 Order name: CBC with Diff; Complete Time: 13:57 rt 07/29 12:37 Order name: CMP; Complete Time: 13:57 rt 07/29 12:37 Order name: Lactate w/ 2H reflex if indic.; Complete Time: 13:57 rt 07/29 12:37 Order name: Protime (+inr); Complete Time: 13:57 rt 07/29 12:37 Order name: Ptt, Activated; Complete Time: 13:57 rt 07/29 12:37 Order name: Urinalysis w/ reflexes; Complete Time: 13:57 rt 07/29 12:37 Order name: COVID-19 Ag + Flu A+B Ag; Complete Time: 13:57 rt 07/29 12:37 Order name: Troponin High Sensitivity; Complete Time: 13:57 rt 07/29 12:37 Order name: BNP; Complete Time: 13:57 rt 07/29 21:41 Order name: Lactate w/ 2H reflex if indic. EDMS 07/29 21:41 Order name: Magnesium EDMS 07/29 21:41 Order name: Phosphorus EDMS 07/29 21:41 Order name: Basic Metabolic Panel EDMS 07/29 21:41 Order name: Basic Metabolic Panel EDMS 07/29 21:41 Order name: CBC with Automated Diff EDMS 07/29 21:41 Order name: CBC with Automated Diff EDMS 07/29 21:41 Order name: Lipid Profile EDMS 07/29 21:41 Order name: Lipid Profile EDSD 07/29 12:37 Order name: Chest Single View XRAY; Complete Time: 14:23 rt 07/29 16:43 Order name: CT Chest For PE Angio; Complete Time: 20:25 rt 07/29 12:37 Order name: EKG; Complete Time: 12:37 rt 07/29 21:41 Order name: Physical Therapy Consult EDSD 07/29 12:37 Order name: Accucheck; Complete Time: 13:36 rt 07/29 12:37 Order name: Cardiac monitoring; Complete Time: 13:36 rt 07/29 12:37 Order name: EKG - Nurse/Tech; Complete Time: 13:36 rt 07/29 12:37 Order name: IV Saline Lock - Large Bore; Complete Time: 13:36 rt 07/29 12:37 Order name: Labs collected and sent; Complete Time: 13:36 rt 07/29 12:37 Order name: O2 Per Protocol; Complete Time: 13:36 rt 07/29 12:37 Order name: O2 Sat Monitoring; Complete Time: 13:36 rt 07/29 12:37 Order name: Vital Signs; Complete Time: 13:36 rt 07/29 13:38 Order name: Straight Cath - Urine: VO at 1330 ; Complete Time: 13:38 ap3 EC:45 Rate is 103 beats/min. Rhythm is regular, Sinus tachycardia with No ectopy, Right rt bundle branch block. QRS [place] is Normal. MT interval is normal. QRS interval is normal. QT interval is normal. No Q waves. No ST changes noted. Interpreted by me. Administered Medications: 16:00 Drug: Albuterol Inhalation 2.5 mg Inhalation once Route: Inhalation; aa5 16:00 Drug: Ipratropium Inhalation Aerosol 0.5 mg Inhalation once; VO at 1510 Route: aa5 Inhalation; 16:15 Drug: LevaQUIN IVPB 750 mg IVPB once Route: IVPB; Site: right wrist; aa5 17:15 Follow up: IV Status: Completed infusion; IV Intake: 150ml aa5 16:23 Not Given (Physician Discretion): [id number] mcg Inhalation once aa5 Disposition Summary: 07/29/24 15:35 Hospitalization Ordered Notes: Hospitalization Status: Observation rt Provider: Kirill Salazar rt Location: Telemetry/MedSurg (observation) rt Condition: Fair rt Problem: new rt Symptoms: have improved rt Bed/Room Type: Standard rt Room Assignment: 409(07/29/24 20:57) cg Diagnosis - Fever, unspecified rt - Dyspnea rt - Altered mental status rt Forms: - Medication Reconciliation Form rt - SBAR form rt - Leadership Thank You Letter rt Signatures: Dispatcher [employer] Carla Daniel RN RN aa5 Liane Salinas RN RN cg Prokisch, Amanda, RN RN ap3 Bertin Lockhart DO DO ms3 Wolf Okeefe MD MD rt Corrections: (The following items were deleted from the chart) 20:57 15:35 rt cg
[2024-07-29] MEDS ORDERED: ALBUTEROL 2.5 MG/3 ML NEB SOL ONE (16:00)
[2024-07-29] MEDS ORDERED: IPRATROPIUM BROM 0.5MG/2.5ML ONE (16:00)
[2024-07-29] MEDS ORDERED: Levofloxacin 750mg IV 750 MG/150 ML BAG IV ONE (16:01)
--- NOTE | 2024-07-29 20:06 | RAD REPORT ---
EXAM: CT Chest For Pe Angio TECHNIQUE: CT angiogram of the chest was performed following intravenous contrast administration, inc luding sagittal and coronal as well as maximum intensity projection reformats. One or more of the following dose reduction techniques were used: Automated exposure control, adjustment of the mA and k V according to patient size, and iterative reconstruction. Unless otherwise specified, incidental findings do not require dedicated imaging follow-up. INDICATION: COUGH COMPARISON: 09/18/2023. FINDINGS: LINES/TUBES: None. PULMONARY ARTERIES: Main pulmonary arteries are normal in caliber. No filling defects within the pul monary arteries to suggest pulmonary embolus. LUNGS AND AIRWAYS: The central airways are patent. Small groundglass opacities including a 7 mm right upper lobe nodule and peripheral right lower lobe 1.3 cm elongated opacity. PLEURA: No effusion or pneumothorax. HEART AND MEDIASTINUM: The visualized thyroid gland is normal. No mediastinal, hilar, or axillary lym phadenopathy. Heart is unremarkable. No pericardial effusion. SOFT TISSUES AND BONES: No acute osseous abnormality. No significant soft tissue finding. UPPER ABDOMEN: Unremarkable. IMPRESSION: No evidence of acute central pulmonary emboli. Small right lung opacities as above, may reflect early airspace disease.
[2024-07-29] MEDS ORDERED: ONDANSETRON 4 MG/2 ML VIAL IV PRN (21:35)
--- NOTE | 2024-07-29 21:43 | P.HP ---
Certification for Inpatient Patient admitted to: Inpatient With expected LOS: >2 Midnights Practitioner: I am a practitioner with admitting privileges, knowledge of patient current condition, hospital course, and medical plan of care. Services: Services provided to patient in accordance with Admission requirements found in Title 42 Section 412.3 of the Code of Federal Regulations Patient History Date of Service: 07/29/24 Reason for admission: Shortness of breath History of Present Illness: Patient is a 79-year-old male with a past medical history of pulmonary embolism, PICC line induced. Is currently on systemic anticoagulation. Presented to the ER with shortness of breath, fever and productive cough. also reports altered mental status. CT PE ruled out pulmonary embolism revealed right lung opacities. Patient does not meet criteria for sepsis. He is being admitted for community-acquired pneumonia. Associated symptoms include generalized weakness and cough. Allergies sulfamethoxazole [From Bactrim] Allergy (Verified 09/08/23 19:59) Anaphylaxis trimethoprim [From Bactrim] Allergy (Verified 09/08/23 19:59) Anaphylaxis Home Medications: Brimonidine Tartrate [Lumify] 1 drop EACH EYE BID 09/08/23 Cholecalciferol (Vitamin D3) [Vitamin D3] 1 tab PO DAILY 09/08/23 Galantamine HBr [Galantamine ER] 8 mg PO BID 09/08/23 Guaifenesin [Cough Syrup] 10 ml PO Q4H PRN 09/08/23 Lactobacillus Acidophilus 1 cap PO DAILY 09/08/23 Lactulose 10 gm PO DAILY PRN 09/08/23 Latanoprost Ophth [Xalatan 0.005%*] 1 drop EACH EYE BEDTIME 09/08/23 Omeprazole 20 mg PO DAILY 09/08/23 Polyethyl Gly 3350 [Glycolax*] 1 packet PO DAILY PRN 09/08/23 Risperidone [Risperdal] 2 mg PO BEDTIME 09/08/23 Simvastatin 40 mg PO BEDTIME 09/08/23 Tamsulosin HCl 1 cap PO BEDTIME 09/08/23 Timolol 0.5% Opth [Timoptic 0.5% Opth*] 1 drop EACH EYE BID 09/08/23 Trazodone HCl 25 mg PO BEDTIME 09/08/23 Zinc Oxide [Zinc Oxide 20%*] 1 sd TOP TID 09/08/23 clonazePAM [Clonazepam] 0.75 mg PO BEDTIME 09/08/23 Diphenhydramine [Benadryl*] 25 mg IV Q6H PRN vial 09/15/23 Jb [Jb*] 1 pkt PO BID 09/15/23 Metoprolol Succinate [Toprol Xl*] 12.5 mg PO DAILY tab 09/15/23 Acetaminophen [Tylenol*] 1,000 mg PO BEDTIME 03/15/24 Apixaban [Eliquis] 5 mg PO BID 03/15/24 Senosides [Senokot*] 2 tab PO BID 03/15/24 Lactulose 30 ml PO Q12HP PRN #1000 ml 03/18/24 - Past Medical/Surgical History Diabetic: No -: paranoid schizophrenia -: carotid bruit -: glaucoma -: Alzheimer's dementia -: cataract sx -: back sx - Family History Father -: Cancer Mother -: Other (see notes) Notes: alziehmers - Social History Alcohol use: No CD- Drugs: No Caffeine use: No Physical Examination - Physical Exam General: Moderate distress, Other (Ill-appearing) HEENT: Atraumatic, Normocephalic Respiratory: Diminished Cardiovascular: No edema, Normal pulses, Regular rate/rhythm, Normal S1 S2 Neurological: Dementia - Studies Laboratory Data (last 24 hrs) 07/29/24 07/29/24 07/29/24 13:03 13:03 13:03 WBC 8.80 Hgb 12.5 L Hct 36.5 L Plt Count 235 PT 14.3 H INR 1.27 APTT 33.0 Sodium 138 Potassium 4.2 BUN 22 H Creatinine 0.78 Glucose 126 H Total Bilirubin 0.4 AST 12 L ALT 20 Alkaline Phosphatase 96 Assessment and Plan - Problems (Diagnosis) (1) Deep vein thrombosis (DVT) of right upper extremity Current Visit: No Status: Acute (2) Paranoid schizophrenia Current Visit: No Status: Acute (3) Peripheral artery disease Current Visit: No Status: Acute (4) Pneumonia Current Visit: No Status: Acute (5) Alzheimer disease Current Visit: No Status: Chronic - Plan Assessment This is a 71-year-old male with Alzheimer dementia who is being admitted through present with fever, shortness of breath and productive cough. Patient also appears confused. He has a recent history of PICC line induced right upper extremity DVT progressing to bilateral PE. He supposed to be on systemic anticoagulation. CT angio of the chest ruled out pulmonary embolism but revealed right lung opacities. Influenza and COVID test are negative Community-acquired pneumonia Recent DVT and PE Acute encephalopathy Alzheimer dementia Plan: Will admit inpatient with telemetry Start patient on meropenem and IV fluid infusion Follow blood culture and lactic acid Antiemetics and Tylenol as needed He will benefit from speech therapy for both swallow evaluation and cognitive assessment Resume rest of home medication upon reconciliation Patient patient is on thickened diet. I will defer to PRINCIPAL NETWORK ENGINEER - Advance Directives Does patient have a Living Will: No Does patient have a Durable POA for Healthcare: No
[2024-07-29] MEDS ORDERED: ACETAMINOPHEN 325 MG TABLET PO PRN (22:29)
[2024-07-29] MEDS: Meropenem 1,000 MG in NA CHLORIDE 0.9% 100 ML IV SCH (23:34)
[2024-07-29] MEDS: NA CHLORIDE 0.9% 1,000 ML IV SCH (23:35)
[2024-07-29] MEDS: ACETAMINOPHEN 650MG/RECT SUPP PR PRN (23:36)
[2024-07-29] MEDS: ALBUTEROL 2.5 MG/3 ML NEB SOL NEB PRN (23:45)
[2024-07-29] MEDS: IPRATROPIUM BROM 0.5MG/2.5ML NEB PRN (23:45)
[2024-07-29 23:51] LABS: Magnesium 1.9 mg/dL (1.6-2.4); Phosphorus 3.1 mg/dL (2.5-4.9)
[2024-07-30 00:46] LABS: Blood O2 Saturation 90.1 % (92-98.5)
[2024-07-30 00:47] LABS: Blood Gas Oxyhemoglobin 88.1 % (94-97); Blood Gas THB 12.2 g/dl (12-18)
[2024-07-30 06:12] LABS: Absolute Lymphocytes (CBC) 0.9 K/uL (0.7-4.9); Absolute Monocytes 0.9 K/uL (0.1-1.3); Absolute Neutrophil 5.2 K/uL (1.8-8.0); Basophils % 0.3 % (0-1.3); Eosinophils % 0.7 % (0-4.4); Hematocrit 34.4 % (39.6-49.0); Hemoglobin 11.6 g/dL (13.6-17.9); MCH 27.5 pg (27.0-35.0); MCHC 33.6 g/dL (32.0-36.0); MCV 81.8 fL (80-100); Monocytes % 13.2 % (3.3-12.3); Neutrophils % 72.8 % (41.7-73.7); Nucleated Red Blood Cells % 0.1 % (0-0); Platelets 206 thou/uL (152-406); RBC Red Blood Cell Count 4.21 M/uL (4.33-5.43); Red Cell Distribution Width 16.8 % (12.1-15.2)
--- NOTE | 2024-07-30 08:15 | P.PN ---
Date of Service: 07/30/24 Subjective: Doing better today. No new events. Patient is stable and slightly confused. Remains on 4 L nasal cannula Review of system: Unable to obtain secondary to dementia Physical Examination - Physical Exam General: No distress, other (Ill-appearing), confused HEENT: Atraumatic, Normocephalic Respiratory: Diminished Cardiovascular: No edema, Normal pulses, Regular rate/rhythm, Normal S1 S2 Neurological: Dementia - Studies Laboratory Data (last 24 hrs) 07/29/24 07/29/24 07/29/24 13:03 13:03 13:03 WBC 8.80 Hgb 12.5 L Hct 36.5 L Plt Count 235 PT 14.3 H INR 1.27 APTT 33.0 Sodium 138 Potassium 4.2 BUN 22 H Creatinine 0.78 Glucose 126 H Total Bilirubin 0.4 AST 12 L ALT 20 Alkaline Phosphatase 96 Assessment and Plan - Problems (Diagnosis) (1) Deep vein thrombosis (DVT) of right upper extremity Current Visit: No Status: Acute (2) Paranoid schizophrenia Current Visit: No Status: Acute (3) Peripheral artery disease Current Visit: No Status: Acute (4) Pneumonia Current Visit: No Status: Acute (5) Alzheimer disease Current Visit: No Status: Chronic - Plan Assessment This is a 71-year-old male with Alzheimer dementia who is being admitted through present with fever, shortness of breath and productive cough. Patient also appears confused. He has a recent history of PICC line induced right upper extremity DVT progressing to bilateral PE. He supposed to be on systemic anticoagulation. CT angio of the chest ruled out pulmonary embolism but revealed right lung opacities. Influenza and COVID test are negative Community-acquired pneumonia Recent DVT and PE Acute encephalopathy Alzheimer dementia Anemia Plan: Continue meropenem and IV fluid infusion Blood cultures with no growth to date Antiemetics and Tylenol as needed He will benefit from speech therapy for both swallow evaluation and cognitive assessment Resume rest of home medication upon reconciliation Patient patient is on thickened diet. I will defer to RIVETING MACHINE OPERATOR AUTOMATIC - Advance Directives Does patient have a Living Will: No Does patient have a Durable POA for Healthcare: No
--- NOTE | 2024-07-30 10:55 | RAD REPORT ---
EXAMINATION: Head Brain Wo Cont CLINICAL INDICATION: Male, 79 years old.ams TECHNIQUE: Axial CT images from the skull base to the vertex without intravenous contrast. Coronal an d sagittal reformatted images were created from the data set. One or more of the following dose reduction techniques were used: Automated exposure control, adjustment of the mA and/or kV according to patient size, and/or iterative reconstruction. Unless otherwise specified, incidental findings do not require dedicated imaging follow-up. [id number]. COMPARISON: 06/15/2024 FINDINGS: INTRACRANIAL: No acute intracranial hemorrhage. Similar ventriculomegaly which is out of proportion t o the degree of cerebral atrophy. No mass effect or midline shift. Moderate chronic small vessel ischemic changes.Severe cerebral atrophy. VASCULATURE: No visualized abnormalities in the arteries or dural venous sinuses. SCALP/SKULL: No calvarial fracture identified. No acute soft tissue abnormality. SINUSES: Increased paranasal sinus thickening with particular involvement of the maxillary sinuses, f rontal sinuses, ethmoid air cells. No significant mastoid fluid. IMPRESSION: No acute intracranial abnormality. Interval development of sinusitis. Stable chronic changes includin g ventriculomegaly as discussed above.
[2024-07-30] MEDS ORDERED: TRAZODONE 50 MG TABLET PO PRN (14:56)
[2024-07-30] MEDS ORDERED: LACTULOSE 20 GM/30 ML UCUP PO PRN (14:56)
[2024-07-30] MEDS: SENOSIDES 8.6 MG TAB PO SCH (20:54)
[2024-07-30] MEDS: RISPERIDONE 1 MG TABLET PO SCH (20:54)
[2024-07-30] MEDS: POLYETHYL GLY 3350 17 GM/DOSE PO PRN (20:55)
[2024-07-30] MEDS: APIXABAN 5 MG TABLET PO SCH (20:55)
[2024-07-30] MEDS: ATORVASTATIN 20 MG TAB PO SCH (20:55)
[2024-07-30] MEDS: TIMOLOL MALEATE 0.5% OPTH 5 ML BTL *PT OWN MED OPTH SCH (21:00)
[2024-07-30] MEDS ORDERED: HOME MED 1 EA UNK (Risperidone [Risperdal] 2 MG Tablet) PO SCH (21:00)
[2024-07-30] MEDS ORDERED: HOME MED 1 EA UNK (Apixaban [Eliquis] 5 MG Tab.Ds.Pk) PO SCH (21:00)
[2024-07-30] MEDS: BRIMONIDINE TARTRATE OPTH SCH (21:00)
[2024-07-30] MEDS ORDERED: HOME MED 1 EA UNK (Simvastatin [Simvastatin] 40 MG Tablet) PO SCH (21:00)
[2024-07-30] MEDS: guaiFENesin 100 MG/5 ML UCUP PO PRN (21:15)
[2024-07-30] MEDS: ALBUTEROL 2.5 MG/3 ML NEB SOL ONE (21:26)
[2024-07-30] MEDS: IPRATROPIUM BROM 0.5MG/2.5ML ONE (21:26)
[2024-07-31] MEDS: IPRATROPIUM BROM 0.5MG/2.5ML ONE (05:48)
[2024-07-31] MEDS: ALBUTEROL 2.5 MG/3 ML NEB SOL ONE (05:48)
[2024-07-31] MEDS: METOPROLOL TAR 25 MG TAB PO SCH (09:00)
[2024-07-31] MEDS: DOXAZOSIN 2 MG TAB PO SCH (09:00)
[2024-07-31] MEDS: COLLAGENASE 30 GM OINTMENT TOP SCH (09:00)
--- NOTE | 2024-07-31 16:01 | P.PN ---
Date of Service: 07/31/24 Subjective: Continues to improve. His is at bedside. Review of system: Unable to obtain secondary to dementia Physical Examination - Physical Exam General: No distress, other (Ill-appearing), confused HEENT: Atraumatic, Normocephalic Respiratory: Diminished Cardiovascular: No edema, Normal pulses, Regular rate/rhythm, Normal S1 S2 Neurological: Dementia - Studies Laboratory Data (last 24 hrs) 07/29/24 07/29/24 07/29/24 13:03 13:03 13:03 WBC 8.80 Hgb 12.5 L Hct 36.5 L Plt Count 235 PT 14.3 H INR 1.27 APTT 33.0 Sodium 138 Potassium 4.2 BUN 22 H Creatinine 0.78 Glucose 126 H Total Bilirubin 0.4 AST 12 L ALT 20 Alkaline Phosphatase 96 Assessment and Plan - Problems (Diagnosis) (1) Deep vein thrombosis (DVT) of right upper extremity Current Visit: No Status: Acute (2) Paranoid schizophrenia Current Visit: No Status: Acute (3) Peripheral artery disease Current Visit: No Status: Acute (4) Pneumonia Current Visit: No Status: Acute (5) Alzheimer disease Current Visit: No Status: Chronic - Plan Assessment This is a 71-year-old male with Alzheimer dementia who is being admitted through present with fever, shortness of breath and productive cough. Patient also appears confused. He has a recent history of PICC line induced right upper extremity DVT progressing to bilateral PE. He supposed to be on systemic anticoagulation. CT angio of the chest ruled out pulmonary embolism but revealed right lung opacities. Influenza and COVID test are negative Community-acquired pneumonia Recent DVT and PE Acute encephalopathy Alzheimer dementia Anemia Wounds Plan: Continue meropenem and IV fluid infusion Blood cultures with no growth to date Antiemetics and Tylenol as needed He will benefit from speech therapy for both swallow evaluation and cognitive assessment Resume rest of home medication upon reconciliation Patient patient is on thickened diet. I will defer to MILL CRANE OPERATOR CBC and CMP in the a.m. Wound healing center consult Josseline for wounds - Advance Directives Does patient have a Living Will: No Does patient have a Durable POA for Healthcare: No
[2024-08-01] MEDS: IPRATROPIUM BROM 0.5MG/2.5ML ONE (01:27)
[2024-08-01] MEDS: ALBUTEROL 2.5 MG/3 ML NEB SOL ONE (01:27)
[2024-08-01 07:56] LABS: Absolute Eosinophils 0.2 K/uL (0-0.5); Absolute Lymphocytes (CBC) 1.3 K/uL (0.7-4.9); Absolute Monocytes 0.7 K/uL (0.1-1.3); Absolute Neutrophil 4.2 K/uL (1.8-8.0); Basophils % 0.5 % (0-1.3); Eosinophils % 3.5 % (0-4.4); Hematocrit 30.6 % (39.6-49.0); Hemoglobin 10.4 g/dL (13.6-17.9); Lymphocytes % 20.3 % (15.3-44.8); MCH 27.9 pg (27.0-35.0); MCHC 33.9 g/dL (32.0-36.0); MCV 82.4 fL (80-100); MPV 6.7 fL (7.6-11.3); Monocytes % 10.7 % (3.3-12.3); Nucleated Red Blood Cells % 0.1 % (0-0); Platelets 210 thou/uL (152-406); RBC Red Blood Cell Count 3.71 M/uL (4.33-5.43); Red Cell Distribution Width 16.3 % (12.1-15.2)
[2024-08-01 08:15] LABS: Albumin 2.1 g/dL (3.4-5.0); Albumin/Globulin Ratio 0.6 (1.1-1.8); Anion Gap 7.1 mEq/L (5.0-15.0); Bilirubin Total 0.3 mg/dL (0.2-1.0); Globulin 3.6 g/dL (2.3-3.5); Potassium 4.1 mEq/L (3.5-5.1); Protein, Total 5.7 g/dL (6.4-8.2)
--- NOTE | 2024-08-01 12:17 | EKG ---
Test Date: 2024-07-29 Test Time: 13:10:33 Basket Weaver: JOAO MEASUREMENT RESULTS: Intervals: Rate: 103 NM: 172 QRSD: 118 QT: 370 QTc: 484 [place]: P: -29 NM: 172 QRS: 64 T: 10 INTERPRETIVE STATEMENTS: Sinus tachycardia with fusion complexes Low voltage QRS Right bundle branch block Abnormal ECG Compared to ECG 06/15/2024 12:05:35 Fusion complex(es) now present Low QRS voltage now present Sinus rhythm no longer present Electronically Signed On 08-01-24 12:09:46 CDT by Mk Loza
--- NOTE | 2024-08-01 15:37 | P.PN ---
Subjective Date of Service: 08/01/24 Chief Complaint: Shortness of breath Subjective: Not able to obtain history from the patient. Looks comfortable in the bed. Objective: General appearance: Alert and comfortable CVS: Normal S1 and S2 Lungs: Clear to auscultation bilaterally Abdomen: Soft, bowel sounds present, no tenderness Extremities: No lower extremity edema Physical Examination - Vital Signs Temperature: 99.6 F Blood Pressure: 114/59 Pulse: 83 Respirations: 16 Pulse Ox (%): 99 Assessment And Plan - Plan This is a 71-year-old male with Alzheimer dementia who is being admitted through present with fever, shortness of breath and productive cough. Patient also appears confused. He has a recent history of PICC line induced right upper extremity DVT progressing to bilateral PE. He supposed to be on systemic anticoagulation. CT angio of the chest ruled out pulmonary embolism but revealed right lung opacities. Influenza and COVID test are negative 1. Community-acquired pneumonia: DC meropenem, start ceftriaxone and doxycycline. 2. Recent DVT and PE: Continue Eliquis 3. Acute encephalopathy: Probably secondary to pneumonia, monitor closely, CT head negative for acute findings except sinusitis 4. Alzheimer dementia: Supportive care 5. Chronic anemia: Monitor closely. 6. Wounds: Requested wound care Plan discussed with the patient's at bedside, answered all questions, discussed with nursing staff.
[2024-08-01] MEDS: CEFTRIAXONE 1,000 MG in NA CHLORIDE 0.9% 50 ML IVPB SCH (16:33)
[2024-08-01] MEDS: DOXYCYCLINE 100 MG CAP PO SCH (20:15)
[2024-08-01] MEDS: ACETAMINOPHEN 500 MG TAB PO PRN (20:18)
[2024-08-01] MEDS: clonazePAM 0.5 MG TAB PO PRN (20:19)
[2024-08-02] MEDS: LORazepam 2 MG/ML VIAL IV ONE (05:26)
--- NOTE | 2024-08-02 06:45 | P.PN ---
Date of Service: 08/02/24 Called by nursing staff as patient is uncomfortable and has been yelling out. Patient's is asking for something to calm down. According to nursing staff he has been yelling out all night. Will go ahead and give him a low-dose of benzodiazepine to get him to calm down. Will reassess his neurologic status in a.m.
[2024-08-02 07:39] LABS: Absolute Eosinophils 0.2 K/uL (0-0.5); Absolute Lymphocytes (CBC) 1.2 K/uL (0.7-4.9); Absolute Monocytes 0.6 K/uL (0.1-1.3); Absolute Neutrophil 3.2 K/uL (1.8-8.0); Basophils % 0.6 % (0-1.3); Eosinophils % 3.3 % (0-4.4); Hematocrit 30.9 % (39.6-49.0); Hemoglobin 10.3 g/dL (13.6-17.9); Lymphocytes % 22.5 % (15.3-44.8); MCH 27.2 pg (27.0-35.0); MCHC 33.4 g/dL (32.0-36.0); MCV 81.5 fL (80-100); MPV 6.4 fL (7.6-11.3); Monocytes % 11.2 % (3.3-12.3); Neutrophils % 62.4 % (41.7-73.7); Nucleated Red Blood Cells % 0.1 % (0-0); Platelets 217 thou/uL (152-406); RBC Red Blood Cell Count 3.79 M/uL (4.33-5.43); Red Cell Distribution Width 16.1 % (12.1-15.2)
[2024-08-02 08:06] LABS: Anion Gap 5.8 mEq/L (5.0-15.0); Potassium 3.8 mEq/L (3.5-5.1)
[2024-08-02] MEDS: ACETIC ACID 0.25% IRRIG IRR ONE (09:00)
--- NOTE | 2024-08-02 14:32 | P.PN ---
Subjective Date of Service: 08/02/24 Chief Complaint: Shortness of breath Subjective: Not able to obtain history from the patient. Looks uncomfortable in the bed. Moaning in the bed. Seems aspirating. Objective: General appearance: Alert and uncomfortable CVS: Normal S1 and S2 Lungs: Clear to auscultation bilaterally Abdomen: Soft, bowel sounds present, no tenderness Extremities: lower extremity dressings present Physical Examination - Vital Signs Temperature: 97.8 F Blood Pressure: 100/66 Pulse: 84 Respirations: 18 Pulse Ox (%): 99 Assessment And Plan - Plan This is a 71-year-old male with Alzheimer dementia who is being admitted through present with fever, shortness of breath and productive cough. Patient also appears confused. He has a recent history of PICC line induced right upper extremity DVT progressing to bilateral PE. He supposed to be on systemic anticoagulation. CT angio of the chest ruled out pulmonary embolism but revealed right lung opacities. Influenza and COVID test are negative 1. Community-acquired pneumonia: cont ceftriaxone and doxycycline. Looks like he is aspirating, add metronidazole for now. 2. Recent DVT and PE: Continue Eliquis 3. Acute encephalopathy: Probably secondary to pneumonia, monitor closely, CT head negative for acute findings except sinusitis 4. Alzheimer dementia: Supportive care 5. Chronic anemia: Monitor closely. 6. Wounds: wound care Plan discussed with the patient's at bedside, answered all questions, discussed with nursing staff. As he is aspirating, discussed with about goals of care, discussed about hospice but she is not ready.
[2024-08-02] MEDS: POTASSIUM CL SA 10 MEQ TAB PO ONE (15:24)
[2024-08-02] MEDS: LACTOBACILLUS/ACIDOPHILUS TAB PO SCH (15:24)
[2024-08-02] MEDS: METRONIDAZOLE 500mg IVPB 500 MG/100 ML BAG IV SCH (17:41)
[2024-08-03 04:47] LABS: Absolute Eosinophils 0.2 K/uL (0-0.5); Absolute Lymphocytes (CBC) 1.3 K/uL (0.7-4.9); Absolute Monocytes 0.5 K/uL (0.1-1.3); Absolute Neutrophil 3.4 K/uL (1.8-8.0); Basophils % 0.5 % (0-1.3); Eosinophils % 2.9 % (0-4.4); Hematocrit 28.1 % (39.6-49.0); Hemoglobin 9.6 g/dL (13.6-17.9); Lymphocytes % 23.9 % (15.3-44.8); MCH 27.6 pg (27.0-35.0); MCHC 34.1 g/dL (32.0-36.0); MCV 80.9 fL (80-100); MPV 6.2 fL (7.6-11.3); Monocytes % 9.3 % (3.3-12.3); Neutrophils % 63.4 % (41.7-73.7); Nucleated Red Blood Cells % 0.1 % (0-0); Platelets 223 thou/uL (152-406); RBC Red Blood Cell Count 3.47 M/uL (4.33-5.43); Red Cell Distribution Width 16.2 % (12.1-15.2)
[2024-08-03 04:55] LABS: Anion Gap 7.2 mEq/L (5.0-15.0); Potassium 4.2 mEq/L (3.5-5.1)
--- NOTE | 2024-08-03 15:02 | P.PN ---
Subjective Date of Service: 08/03/24 Chief Complaint: Shortness of breath Subjective: Not able to obtain history from the patient. Looks uncomfortable in the bed. Moaning in the bed. Objective: General appearance: Alert and moaning in the bed CVS: Normal S1 and S2 Lungs: Clear to auscultation bilaterally Abdomen: Soft, bowel sounds present, no tenderness Extremities: lower extremity dressings present Physical Examination - Vital Signs Temperature: 98.8 F Blood Pressure: 127/76 Pulse: 77 Respirations: 18 Pulse Ox (%): 97 - Studies Microbiology Data (last 24 hrs): 07/29/24 13:23 Blood - Blood Aerobic Blood Culture - Final No growth in 5 days. 07/29/24 13:23 Blood - Blood Anaerobic Blood Culture - Final No growth in 5 days. 07/29/24 13:03 Blood - Blood Aerobic Blood Culture - Final No growth in 5 days. 07/29/24 13:03 Blood - Blood Anaerobic Blood Culture - Final No growth in 5 days. Assessment And Plan - Plan This is a 71-year-old male with Alzheimer dementia who is being admitted through present with fever, shortness of breath and productive cough. Patient also appears confused. He has a recent history of PICC line induced right upper extremity DVT progressing to bilateral PE. He is on systemic anticoagulation. CT angio of the chest ruled out pulmonary embolism but revealed right lung opacities. Influenza and COVID test are negative 1. Community-acquired pneumonia: cont ceftriaxone and doxycycline. Looks like he is aspirating, added metronidazole on 08/02 2. Recent DVT and PE: Continue Eliquis 3. Acute encephalopathy: Probably secondary to pneumonia, monitor closely, CT head negative for acute findings except sinusitis 4. Alzheimer dementia: Supportive care 5. Chronic anemia: Monitor closely. 6. Wounds: wound care Plan discussed with the patient's at bedside on 08/02, answered all questions, discussed with nursing staff. As he is aspirating, discussed with about goals of care, discussed about hospice but she is not ready.
[2024-08-04 04:52] LABS: Absolute Eosinophils 0.2 K/uL (0-0.5); Absolute Lymphocytes (CBC) 1.6 K/uL (0.7-4.9); Absolute Monocytes 0.6 K/uL (0.1-1.3); Absolute Neutrophil 5.1 K/uL (1.8-8.0); Basophils % 0.4 % (0-1.3); Eosinophils % 2.2 % (0-4.4); Hematocrit 26.5 % (39.6-49.0); Hemoglobin 9.2 g/dL (13.6-17.9); Lymphocytes % 21.2 % (15.3-44.8); MCHC 34.6 g/dL (32.0-36.0); MCV 80.9 fL (80-100); MPV 6.3 fL (7.6-11.3); Monocytes % 8.5 % (3.3-12.3); Neutrophils % 67.7 % (41.7-73.7); Nucleated Red Blood Cells % 0.1 % (0-0); Platelets 262 thou/uL (152-406); RBC Red Blood Cell Count 3.28 M/uL (4.33-5.43); Red Cell Distribution Width 16.3 % (12.1-15.2)
[2024-08-04] MEDS ORDERED: ALBUTEROL 2.5 MG/3 ML NEB SOL NEB SCH (11:00)
[2024-08-04] MEDS ORDERED: ALBUTEROL 2.5 MG/3 ML NEB SOL NEB PRN (11:00)
[2024-08-04 13:54] VITALS: BMI 28.4
--- NOTE | 2024-08-04 15:59 | P.PN ---
Subjective Date of Service: 08/04/24 Chief Complaint: Shortness of breath Subjective: Not able to obtain history from the patient. Looks comfortable in the bed. Objective: General appearance: Alert and comfortable in the bed CVS: Normal S1 and S2 Lungs: Clear to auscultation bilaterally Abdomen: Soft, bowel sounds present, no tenderness Extremities: lower extremity dressings present Physical Examination - Vital Signs Temperature: 99.4 F Blood Pressure: 133/84 Pulse: 88 Respirations: 18 Pulse Ox (%): 98 - Studies Microbiology Data (last 24 hrs): 07/29/24 13:23 Blood - Blood Aerobic Blood Culture - Final No growth in 5 days. 07/29/24 13:23 Blood - Blood Anaerobic Blood Culture - Final No growth in 5 days. 07/29/24 13:03 Blood - Blood Aerobic Blood Culture - Final No growth in 5 days. 07/29/24 13:03 Blood - Blood Anaerobic Blood Culture - Final No growth in 5 days. Assessment And Plan - Plan This is a 71-year-old male with Alzheimer dementia who is being admitted through present with fever, shortness of breath and productive cough. Patient also appears confused. He has a recent history of PICC line induced right upper extremity DVT progressing to bilateral PE. He is on systemic anticoagulation. CT angio of the chest ruled out pulmonary embolism but revealed right lung opacities. Influenza and COVID test are negative 1. Community-acquired pneumonia: cont ceftriaxone and doxycycline. Looks like he is aspirating, added metronidazole on 08/02 2. Recent DVT and PE: Continue Eliquis 3. Acute encephalopathy: Probably secondary to pneumonia, monitor closely, CT head negative for acute findings except sinusitis 4. Alzheimer dementia: Supportive care 5. Chronic anemia: Monitor closely. 6. Wounds: wound care Plan discussed with the patient's at bedside, answered all questions, discussed with nursing staff. 79-year-old patient admitted with pneumonia, he is clinically improving, if continues to improve, plan to discharge home tomorrow, agrees.
[2024-08-05 07:46] LABS: Absolute Eosinophils 0.2 K/uL (0-0.5); Absolute Lymphocytes (CBC) 1.3 K/uL (0.7-4.9); Absolute Monocytes 0.8 K/uL (0.1-1.3); Absolute Neutrophil 6.7 K/uL (1.8-8.0); Basophils % 0.4 % (0-1.3); Eosinophils % 1.9 % (0-4.4); Hematocrit 28.4 % (39.6-49.0); Hemoglobin 9.6 g/dL (13.6-17.9); Lymphocytes % 14.7 % (15.3-44.8); MCH 27.6 pg (27.0-35.0); MCHC 33.8 g/dL (32.0-36.0); MCV 81.7 fL (80-100); MPV 6.4 fL (7.6-11.3); Monocytes % 8.9 % (3.3-12.3); Neutrophils % 74.1 % (41.7-73.7); Platelets 252 thou/uL (152-406); RBC Red Blood Cell Count 3.48 M/uL (4.33-5.43); Red Cell Distribution Width 16.5 % (12.1-15.2)
[2024-08-05 07:59] LABS: Anion Gap 8.8 mEq/L (5.0-15.0); Potassium 3.8 mEq/L (3.5-5.1)
[2024-08-05 11:40] VITALS: O2SAT 97
[2024-08-05 12:26] VITALS: BP 105/56; TEMP 97.9
== END 2024-08-05 14:30 | disposition home or self-care (01) | DRG 194 ==
LOC: ER 12:20 → 4TH 21:35
PROVIDERS: ADMIT Internal Medicine; ATTEND Hospitalist
PROC: 4A033R1 Measurement of Arterial Saturation, Peripheral, Percutaneous Approach (ICD-10-PCS; principal; 2024-07-29)
DX: J18.9 Pneumonia, unspecified organism (principal); F20.0 Paranoid schizophrenia; G93.40 Encephalopathy, unspecified; I10 Essential (primary) hypertension; I73.9 Peripheral vascular disease, unspecified; D64.9 Anemia, unspecified; G30.9 Alzheimer's disease, unspecified; F02.80 Dementia in other diseases classified elsewhere, unspecified severity, without behavioral disturbance, psychotic disturbance, mood disturbance, and anxiety; Z88.1 Allergy status to other antibiotic agents; Z11.52 Encounter for screening for COVID-19; Z79.01 Long term (current) use of anticoagulants; Z86.73 Personal history of transient ischemic attack (TIA), and cerebral infarction without residual deficits; Z79.899 Other long term (current) drug therapy; Z86.711 Personal history of pulmonary embolism; Z86.718 Personal history of other venous thrombosis and embolism
CPT/HCPCS: 36415; 36600; 51702; 70450; 71045; 71275; 80048; 80053; 80061; 81001; 82805; 82947; 83605; 83735; 83880; 84100; 84145; 84484; 85025; 85610; 85730; 87040; 87428; 92610; 93005; 94640; 94760; 96365; 97161; 99285; J0696; J2185; J3590; J7030; J7613; J7644; Q9967

== ENCOUNTER 2024-08-13 13:12 | Emergency (ER) | payer OTHER, BC ==
--- OUTSIDE RECORDS SUMMARY | 2024-08-13 13:42 | XMS REPORT | Continuity of Care Document ---
Author Name Unknown Address [address] [facility] [address] [place] [address] [facility] [place] Address [address] [facility] [address] [place] [address] Care Team Providers Care Detacher Name Role Phone Dougie Giles MD Primary Care Physician [phone] Dougie Giles MD Attending Clinician [phone] MONICA RYAN Attending Clinician Unavailab ISAURA Ceja Attending Clinician Unavailable ISAURA BECK Attending Clinician Unavailable Isaura Beck MD Attending Clinician [phone] NATALIE TRIVEDI Attending Clinician Unavaila Joseph Joe Attending Clinician Unavailable Joseph Smith Attending Clinician [phone] NICANOR LENTZ Attending Clinician Unavailable Nicanor Lentz DO Attending Clinician [phone] Shira Mead RN Attending Clinician Unavail able MARQUES HINES Attending Clinician Unavailable Andreina Albert Attending Clinician [phone] Marlena Rios MD Attending Clinician [phone] Marques Hines DO Attending Clinician [phone] Virginia Soni DO Attending Clinician [phone] VIRGINIA SONI Attending Clinician Unavailab pennie Vaughn RN, Ena Brown Attending Clinician Unavailab pennie Verdin MD, Juno Wright Attending Clinician [phone] OLMAN DAVID Attending Clinician Unavailable Frankie PONY CYLINDER PRESS OPERATOR, Olman Attending Clinician + [phone] Doctor Unassigned, [place] Attending Clinician U arronailable LARRY MEGANLOVELYDIA Attending Clinician Unavailab pennie Nickerson DO, Marcie Attending Clinician [phone] Harvinder LOPEZ, Chaz Attending Clinician [phone] Farooq PONY CYLINDER PRESS OPERATOR, Natalie Attending Clinician [phone] Lopez LOPEZ, Fantasma Attending Clinician [phone] Jania LOPEZ, Jean Attending Clinician [phone] Chan LOPEZ, Dougie Attending Clinician [phone] DOUGIE GILES Attending Clinician Unavailable MARLENA RIOS Attending Clinician Unavailable Yaritza Aguirre Anavella Attending Cli nician Unavailable JOSEFIAN DASILVA Attending Clinician Unavailable Josefina Dasilva MD Attending Clinician [phone] Nurse, Adc Surgery Gu Attending Clinician UnaJelani Causey MD Attending Clinician [phone] JEAN JARRETT Attending Clinician Unavailable Penelope MENDOZA, Liane Attending Clinician Unavailable Only, Ang Db Test Attending Clinician Unavailabl Mannie Vuong DO Attending Clinician [phone] MANNIE VÁSQUEZ Attending Clinician Unavail able MARGI BOYD Attending Clinician Unavailable Margi Horn Attending Clinician + [phone] Justine Collins Attending Clinician + [phone] JUSTINE GARCIA Attending Clinician Unavailable Lab, Adc Fam Pob I Attending Clinician Unavailab JELANI Álvarez Attending Clinician Unavail able JELANI CORDON Attending Clinician Unavail able JEZ ALEXANDER Attending Clinician Unavailable Shi_Olga Attending Clinician Unavailable MONICA RYAN Admitting Clinician Unavailab ISAURA Ceja Admitting Clinician Unavailable Joseph MELENDEZ Admitting Clinician Unavailable MARQUES HINES Admitting Clinician Unavailable Marques Hines DO Admitting Clinician [phone] [place] SONI Admitting Clinician Unavailab OLMAN Anglin Admitting Clinician Unavailable CHAZ ROBERTS Admitting Clinician Unavailable Chaz Roberts MD Admitting Clinician [phone] NICANOR LENTZ Admitting Clinician Unavailable MARLENA RIOS Admitting Clinician Unavailable Marlena Rios MD Admitting Clinician [phone] Tomasa Aguirre Anav Admitting Clinician U JOSEFINA Cam Admitting Clinician Unavailable Josefina Dasilva MD Admitting Clinician [phone] JELANI CORDON Admitting Clinician Unavail able Compa Admitting Clinician Unavailable Payers Payer Name Policy Type Policy Number Effective Date Expirati on Date Source [facility] [id number] BCTI BCTI [id number] TWV [id number] [place] [employer] [id number] 2002 00:00:00 [place]IC[place]PPLEMENT[place] [id number] 2013 00:00:00 Problems Condition Name Condition Details Condition Category Status Onset Date Resolution Date Last Treatment Date Treating Clinician Comments Source Other constipati on Other constipati on Disease Active 2023-04 00:00: 00 [facility] Asthenia Asthenia Disease Active 2023-04 00:00: 00 [facility] Herpes zoster without complicati on Herpes zoster without complicati on Disease Active 2023-04 00:00: 00 [facility] Viral syndrome Viral syndrome Disease Active 2023-04 00:00: 00 [facility] Fever, unspecifie d fever cause Fever, unspecifie d fever cause Disease Active 2022-04 0 00:00: 00 [facility] Wound of right ankle, initial encounter Wound of right ankle, initial encounter Disease Active 2022-04 0 00:00: 00 [facility] Cellulitis , unspecifie d cellulitis site Cellulitis , unspecifie d cellulitis site Disease Active 8 00:00: 00 [facility] Unspecifie d dementia, unspecifie d severity, without behavioral disturbanc e, psychotic disturbanc e, mood disturbanc e, and anxiety Unspecifie d dementia, unspecifie d severity, without behavioral disturbanc e, psychotic disturbanc e, mood disturbanc e, and anxiety Disease Active 8 00:00: 00 [facility] 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 11-26 00:00: 00 [facility] Problem related to unspecifie d psychosoci al circumstan vasu Problem related to unspecifie d psychosoci al circumstan vasu Disease Active 11-26 00:00: 00 [facility] Post-traum atic stress disorder, chronic Post-traum atic stress disorder, chronic Disease Active 11-26 00:00: 00 [facility] Fever in adult Fever in adult Disease Active 10-28 00:00: 00 [facility] Pneumonia due to infectious organism Pneumonia due to infectious organism Disease Active 725 00:00: 00 [facility] Pneumonia due to infectious organism Pneumonia due to infectious organism Disease Active 25 00:00: 00 [facility] At risk for aspiration At risk for aspiration Disease Active 4-20 00:00: 00 [facility] Cellulitis of right ankle Cellulitis of right ankle Disease Active 4-16 00:00: 00 [facility] Fecal impaction in rectum Fecal impaction in rectum Disease Active 2-20 00:00: 00 [facility] Pancolitis Pancolitis Disease Active 05-02 00:00: 00 [facility] Basal cell carcinoma (BCC) of chin Basal cell carcinoma (BCC) of chin Disease Active 2017-04 00:00: 00 Overview: Formattin g of this note might be different from the original. Added automatic ally from request for surgery [id number] [facility] Glaucoma Glaucoma Disease Active 2014-04 00:00: 00 [facility] Hyperlipid emia Hyperlipid emia Disease Active 2014-04 00:00: 00 [facility] Carotid bruit Carotid bruit Disease Active 2014-04 00:00: 00 [facility] Allergies, Adverse Reactions, Alerts Allergy Name Allergy Type Status Severity Reaction(s) Onset Date Inactive Date Treating Clinician Comments Source Sulfamet hoxazole -Trimeth oprim Propensi ty to adverse reaction s Active Unknown - See comments 11-07 00:00: 00 Patients reports the patient is unable to walk when taking medicatio n [facility] SULFAMET HOXAZOLE -TRIMETH OPRIM DRUG Active Unknown-Cmnt 11-07 00:00: 00 [facility] Social History Social Habit Start Date Stop Date Quantity Comments Source History SDOH Social Connections Get Together [facility] History SDOH Social Connections Restorationism [facility] History SDOH Social Connections Membership [facility] History SDOH Social Connections Meetings [facility] Gender identity [facility] Sexual orientation U [facility] Alcoholic beverage intake 2024-03-11 00:00:00 2024-03-11 00:00:00 0 /d [facility] Alcohol intake 2023 00:00:00 2023 00:00:00 0 /d [facility] Exposure to SARS-CoV-2 (event) 2022-08-17 00:00:00 2022-08-27 14:30:00 Not sure [facility] History of Social function 2022-08-27 00:00:00 2022-08-27 00:00:00 [facility] History SDOH Alcohol Frequency 2022-07-21 00:00:00 2022-07-21 00:00:00 1 [facility] History SDOH Social Connections Phone 2022-07-21 00:00:00 2022-07-21 00:00:00 3 [facility] History SDOH Social Connections Living 2022-07-21 00:00:00 2022-07-21 00:00:00 3 [facility] History SDOH Financial 2022-07-21 00:00:00 2022-07-21 00:00:00 5 [facility] History SDOH Food Worry 2022-07-21 00:00:00 2022-07-21 00:00:00 1 [facility] History SDOH Food Scarcity 2022-07-21 00:00:00 2022-07-21 00:00:00 1 [facility] History SDOH Transport Med 2022-07-21 00:00:00 2022-07-21 00:00:00 2 [facility] History SDOH Transport Non-Med 2022-07-21 00:00:00 2022-07-21 00:00:00 2 [facility] History SDOH Physical Activity DPW 2022-07-21 00:00:00 2022-07-21 00:00:00 2 [facility] History SDOH Physical Activity MPS 2022-07-21 00:00:00 2022-07-21 00:00:00 1 [facility] History SDOH Housing Unable to Pay 2022-07-21 00:00:00 2022-07-21 00:00:00 2 [facility] History SDOH Housing Places Lived 2022-07-21 00:00:00 2022-07-21 00:00:00 1 [facility] History SDOH Housing Homeless Last Year 2022-07-21 00:00:00 2022-07-21 00:00:00 2 [facility] Tobacco use and exposure 2022-07-20 00:00:00 2022-07-20 00:00:00 Smokeless tobacco non-user [facility] History SDOH Alcohol Std Drinks 2022-05-28 00:00:00 2022-05-28 00:00:00 0 [facility] History SDOH Alcohol Binge 2022-05-28 00:00:00 2022-05-28 00:00:00 1 [facility] Sex assigned at 1945 00:00:00 1945 00:00:00 [facility] Smoking Status Start Date Stop Date Source Never smoked tobacco [facility] Medications Ordered Medication Name Filled Medication Name Start Date Stop Date Current Medication? Ordering Clinician Indication Dosage Frequency Signature (SIG) Comments Components Source lactulose 10 gram/15 mL oral solution 2023-04 00:00: 00 Yes [id number] 30mL Take 30 mL by mouth in the morning. [facility] iopamidol (ISOVUE 370-500 mL) injection 150 mL 12-30 05:45: 00 12-30 05:45 :00 No [id number] 150mL 150 mL, Intravenou s, ONCE, 1 dose, On Marilu 12/31/23 at 0045, Routine [facility] ciprofloxac in HCl (CIPRO) tablet 500 mg 2022-04 00:30: 00 03-01 23:48 :00 No 500mg 500 mg, Oral, ONCE, 1 dose, On 03/01/23 at 1830, ROCYK
Re ason for Anti-Infec tive: Documented Infection< br>Documen nichole Infection Site: Skin / Soft Tissue
Duration of Therapy: Other (see Comments) [facility] ciprofloxac in HCl 500 mg tablet 2022-04 00:00: 00 Yes [id number] 500mg Take 1 tablet by mouth in the morning and 1 tablet at noon and 1 tablet in the evening. [facility] collagenase 250 unit/gram ointment 2022-04 00:00: 00 Yes [id number] Apply to area(s) daily. [facility] Vitamin E (E-PHEROL) 400 unit Tab 2022-04 14:37: 49 Yes 2{tbl} Take 2 tablets by mouth daily. [facility] latanoprost (XALATAN) 0.005 % ophthalmic drops 2022-04 14:37: 49 Yes 1[drp] 1 Drop every evening. [facility] brimonidine (ALPHAGAN) 0.2 % ophthalmic solution 2022-04 14:37: 49 Yes 1[drp] Take 1 Drop in the morning and 1 Drop at noon and 1 Drop in the evening. [facility] melatonin 10 mg Tab 2022-04 14:37: 49 Yes 10mg Take 10 mg by mouth at bedtime. [facility] acetaminoph en 500 mg tablet 2022-04 14:37: 49 Yes 1000mg Take 2 tablets by mouth at bedtime. [facility] mv-mn/iron/ folic acid/herb 190 (VITAMIN D3 COMPLETE ORAL) 2022-04 14:37: 49 Yes 5000U/d Take 5,000 Units/day by mouth daily. [facility] timolol 0.25 % ophthalmic solution 2022-04 14:37: 49 Yes 1[drp] Place 1 Drop in both eyes in the morning and 1 Drop in the evening. [facility] trazodone HCl (TRAZODONE ORAL) 2022-04 14:37: 49 Yes 25mg Take 25 mg by mouth at bedtime. [facility] polyethylen e glycol 3350 (MIRALAX) 17 gram/dose powder 2022-04 14:37: 49 Yes 17g Take 17 g by mouth in the morning. [facility] zinc sulfate 50 mg zinc (220 mg) capsule 2022-04 00:00: 00 Yes [id number] 50mg Take 1 capsule by mouth in the morning and 1 capsule at noon and 1 capsule in the evening. [facility] ascorbic acid, vitamin C, 500 mg tablet 2022-04 00:00: 00 Yes [id number] 500mg Take 1 tablet by mouth in the morning and 1 tablet in the evening. [facility] ibuprofen 400 mg tablet 2022-04 00:00: 00 Yes [id number] 400mg Take 1 tablet by mouth every 6 (six) hours as needed (Alternate with Tylenol for fever). [facility] codeine-gua ifenesin 10-100 mg/5 mL oral solution 2022-04 00:00: 00 02-14 05:59 :00 No [id number] 5mL Take 5 mL by mouth every 6 (six) hours as needed for Cough for up to 7 days. Indication s: acute pain, cough [facility] NaCl 0.9% (NS) IV infusion 1,000 mL 2022-04 20:00: 00 Yes 1000mL at 50 mL/hr, IV Infusion, CONTINUOUS , Starting on Thu02/04/23 at 1500, Until Discontinu ed, Routine [facility] D5W 0.9% NaCl (NS) IV infusion 1,000 mL 2022-04 03:00: 00 Yes 1000mL at 50 mL/hr, 1,000 mL, IV Infusion, CONTINUOUS , Starting on Thu02/03/23 at 2200, Until Discontinu ed, Routine [facility] D5W 0.9% NaCl (NS) IV infusion 1,000 mL 2022-04 02:15: 00 02-04 02:56 :32 No 1000mL at 150 mL/hr, 1,000 mL, IV Infusion, CONTINUOUS , Starting on Thu02/03/23 at 2115, Until Thu02/03/23 at 2156, Routine [facility] risperiDONE (RISPERDAL) tablet 4 mg 2022-04 02:00: 00 Yes 4mg 4 mg, Oral, QHS, First dose (after last modificati on) on Thu02/03/23 at 2100, Until Discontinu ed, Routine [facility] acetaminoph en (TYLENOL) suppository 650 mg 2022-04 21:35: 13 Yes 650mg 650 mg, Rectal, Q6HPRN, Starting on Thu02/03/23 at 1635, Until Discontinu ed, Routine, Temp > 38 C [facility] collagenase (SANTYL) ointment 2022-04 16:45: 00 Yes Topical, DAILY, First dose on Thu02/03/23 at 1145, Until Discontinu ed, Routine [facility] sodium hypochlorit e 0.25% (DAKIN'S SOLUTION) solution 2022-04 16:45: 00 Yes Topical, DAILY, First dose on Thu02/03/23 at 1145, Until Discontinu ed, Routine [facility] polyethylen e glycol 3350 powder 17 g 2022-04 14:00: 00 Yes 17g 17 g, Oral, DAILY, First dose on Thu02/03/23 at 0900, Until Discontinu ed [facility] omeprazole (PRILOSEC) capsule 20 mg 2022-04 14:00: 00 Yes 20mg 20 mg, Oral, DAILY, First dose on Thu02/03/23 at 0900, Until Discontinu ed, Routine [facility] lactobacill us acidophilus tablet 0.5 mg 2022-04 14:00: 00 Yes .5mg 0.5 mg, Oral, DAILY, First dose on Thu02/03/23 at 0900, Until Discontinu ed, Routine [facility] docusate (COLACE) 50 mg/5 mL solution 100 mg 2022-04 14:00: 00 Yes 100mg 100 mg, Oral, DAILY, First dose on Thu02/03/23 at 0900, Until Discontinu ed, Routine [facility] levoFLOXaci n (LEVAQUIN) tablet 750 mg 2022-04 14:00: 00 02-13 14:59 :00 No 750mg 750 mg, Oral, DAILY, 10 doses, First dose on Thu02/03/23 at 0900, Last dose on Thu02/12/23 at 0900, ROCKY
Re ason for Anti-Infec tive: Documented Infection< br>Documen nichole Infection Site: Skin / Soft Tissue
Duration of Therapy: 10 days [facility] sodium hypochlorit e 0.5% (DAKINS) solution 16 oz 2022-04 14:00: 00 02-03 16:41 :37 No 16[oz_a v] 16 oz, Topical, DAILY, First dose on Thu02/03/23 at 0900, Until Discontinu ed, Routine [facility] zinc sulfate (ORAZINC) capsule 50 mg 2022-04 13:00: 00 Yes 50mg 50 mg, Oral, TID, First dose on Thu02/03/23 at 0800, Until Discontinu ed, Routine [facility] ascorbic acid (vitamin C) (VITAMIN C) tablet 500 mg 2022-04 13:00: 00 Yes 500mg 500 mg, Oral, BID, First dose on Thu02/03/23 at 0800, Until Discontinu ed, Routine [facility] codeine-gua ifenesin (ROBITUSSIN AC) 10-100 mg/5 mL oral solution 5 mL 2022-04 05:26: 58 Yes 5mL 5 mL, Oral, Q6HPRN, Starting on Thu02/03/23 at 0026, Until Discontinu ed, Routine, Cough [facility] melatonin (MELATIN) tablet 10.5 mg 2022-04 02:00: 00 Yes 10mg 10.5 mg (rounded from 10 mg), Oral, QHS, First dose on Thu02/02/23 at 2100, Until Discontinu ed [facility] donepeziL (ARICEPT) tablet 10 mg 2022-04 02:00: 00 Yes 10mg 10 mg, Oral, QHS, First dose on Thu02/02/23 at 2100, Until Discontinu ed [facility] doxazosin (CARDURA) tablet 1 mg 2022-04 02:00: 00 Yes 1mg 1 mg, Oral, QHS, First dose on Thu02/02/23 at 2100, Until Discontinu ed, Routine [facility] latanoprost (XALATAN) 0.005 % ophthalmic drops 1 Drop 2022-04 02:00: 00 Yes 1[drp] 1 Drop, Both Eyes, QHS, First dose on Thu02/02/23 at 2100, Until Discontinu ed, Routine [facility] traZODone (DESYREL) tablet 25 mg 2022-04 02:00: 00 02-03 05:28 :00 No 25mg 25 mg, Oral, QHS, First dose on Thu02/02/23 at 2100, Until Discontinu ed [facility] brimonidine (ALPHAGAN) 0.2 % ophthalmic solution 1 Drop 2022-04 01:00: 00 Yes 1[drp] 1 Drop, Both Eyes, TID, First dose on Thu02/02/23 at 2000, Until Discontinu ed, Routine [facility] timolol (TIMOPTIC) 0.5 % ophthalmic solution 1 Drop 2022-04 01:00: 00 Yes 1[drp] 1 Drop, Both Eyes, BID, First dose on Thu02/02/23 at 2000, Until Discontinu ed, Routine [facility] amoxicillin -clavulanat e (AUGMENTIN) 875-125 mg per tablet 1 tablet 2022-04 01:00: 00 02-13 01:59 :00 No 1{tbl} 1 tablet, Oral, BID, 20 doses, First dose on Thu02/02/23 at 1999, Last dose on Thu02/12/23 at 0800, Routine
Reason for Anti-Infec tive: Documented Infection< br>Documen nichole Infection Site: Skin / Soft Tissue
Duration of Therapy: 10 days [facility] ibuprofen (IBU) tablet 400 mg 2022-04 23:51: 58 Yes 400mg 400 mg, Oral, Q6HPRN, Starting on Thu02/02/23 at 1851, Until Discontinu ed, Routine, Alternate with Tylenol for fever [facility] acetaminoph en (TYLENOL) tablet 650 mg 2022-04 23:51: 40 02-03 21:35 :40 No 650mg 650 mg, Oral, Q6HPRN, Starting on Thu02/02/23 at 1851, Until Thu02/03/23 at 1635, Routine, Pain (scale 1-3), Temp > 38 C [facility] D5W 0.9% NaCl (NS) IV infusion 1,000 mL 2022-04 22:45: 00 02-04 00:14 :08 No 1000mL at 100 mL/hr, 1,000 mL, IV Infusion, CONTINUOUS , Starting on Thu02/02/23 at 1745, Until Thu02/03/23 at 1914, Routine [facility] acetaminoph en ADULT (OFIRMEV) injection 1,000 mg 2022-04 22:30: 00 02-02 23:02 :00 No 1000mg 1,000 mg, IV Infusion, at 400 mL/hr Administer over 15 Minutes, ONCE, 1 dose, On Thu02/02/23 at 1730, Routine
Indicatio n: Non-periop erative Patient
Approved by: Per Policy (NPO Status) [facility] enoxaparin (LOVENOX) injection 40 mg 2022-04 22:00: 00 Yes 40mg 40 mg, Subcutaneo us, DAILY, First dose on Thu02/02/23 at 1700, Until Discontinu ed, Routine [facility] risperiDONE (RISPERDAL) tablet 4 mg 2022-04 22:00: 00 02-03 17:34 :44 No 4mg 4 mg, Oral, QPM, First dose on Thu02/02/23 at 1700, Until Discontinu ed, Routine [facility] ondansetron (ZOFRAN (PF)) injection 4 mg 2022-04 21:37: 00 Yes 4mg 4 mg, Slow IV Push, Q6HPRN, Starting on Thu02/02/23 at 1637, Until Discontinu ed, Routine, Nausea and Vomiting (N/V) [facility] dextrometho rphan-guaif enesin (ROBITUSSIN DM) 10-100 mg/5 mL solution 10 mL 2022-04 21:31: 42 Yes 10mL 10 mL, Oral, Q6HPRN, Starting on Thu02/02/23 at 1631, Until Discontinu ed, Routine, Cough [facility] sodium hypochlorit e 0.5% (DAKINS) solution 16 oz 2022-04 14:00: 00 Yes 16[oz_a v] 16 oz, Topical, DAILY, First dose on Thu01/30/23 at 0900, Until Discontinu ed, Routine [facility] sodium hypochlorit e 0.5% solution 2022-04 00:00: 00 Yes [id number] 16[oz_a v] Apply 473 mL to area(s) in the morning. [facility] metoprolol succinate XL 25 mg 24 hr tablet 2022-04 00:00: 00 03-02 05:59 :00 No [id number] 12.5mg Take 0.5 tablets by mouth in the morning for 30 days. [facility] Vitamin E (E-PHEROL) 400 unit Tab 2022-04 14:48: 25 Yes 2{tbl} Take 2 tablets by mouth daily. [facility] latanoprost (XALATAN) 0.005 % ophthalmic drops 2022-04 14:48: 25 Yes 1[drp] 1 Drop every evening. [facility] brimonidine (ALPHAGAN) 0.2 % ophthalmic solution 2022-04 14:48: 25 Yes 1[drp] Take 1 Drop in the morning and 1 Drop at noon and 1 Drop in the evening. [facility] melatonin 10 mg Tab 2022-04 14:48: 25 Yes 10mg Take 10 mg by mouth at bedtime. [facility] acetaminoph en 500 mg tablet 2022-04 14:48: 25 Yes 1000mg Take 2 tablets by mouth at bedtime. [facility] mv-mn/iron/ folic acid/herb 190 (VITAMIN D3 COMPLETE ORAL) 2022-04 14:48: 25 Yes 5000U/d Take 5,000 Units/day by mouth daily. [facility] timolol 0.25 % ophthalmic solution 2022-04 14:48: 25 Yes 1[drp] Place 1 Drop in both eyes in the morning and 1 Drop in the evening. [facility] trazodone HCl (TRAZODONE ORAL) 2022-04 14:48: 25 Yes 25mg Take 25 mg by mouth at bedtime. [facility] polyethylen e glycol 3350 (MIRALAX) 17 gram/dose powder 2022-04 14:48: 25 Yes 17g Take 17 g by mouth in the morning. [facility] amoxicillin -clavulanat e (AUGMENTIN) 875-125 mg per tablet 1 tablet 2022-04 01:00: 00 02-12 01:59 :00 No 1{tbl} 1 tablet, Oral, Q12H, 28 doses, First dose on Thu01/28/23 at 2000, Last dose on Thu02/11/23 at 0800, Routine
Reason for Anti-Infec tive: Documented Infection< br>Documen nichole Infection Site: Skin / Soft Tissue
Duration of Therapy: 14 days [facility] levoFLOXaci n (LEVAQUIN) tablet 750 mg 2022-04 20:45: 00 02-11 14:59 :00 No 750mg 750 mg, Oral, DAILY, 14 doses, First dose on Thu01/28/23 at 1545, Last dose on Thu02/10/23 at 0900, Routine
Reason for Anti-Infec tive: Documented Infection< br>Documen nichole Infection Site: Skin / Soft Tissue
Duration of Therapy: 14 days [facility] dextrometho yan-aldof enesin (ROBITUSSIN DM) 10-100 mg/5 mL solution 10 mL 2022-04 14:33: 23 Yes 10mL 10 mL, Oral, Q6HPRN, Starting on Thu01/28/23 at 0933, Until Discontinu ed, Routine, Cough [facility] levoFLOXaci n 750 mg tablet 2022-04 00:00: 00 02-12 05:59 :00 No [id number] 750mg Take 1 tablet by mouth in the morning for 14 days. [facility] amoxicillin -clavulanat e 875-125 mg per tablet 2022-04 00:00: 00 02-12 05:59 :00 No [id number] 1{tbl} Take 1 tablet by mouth in the morning and 1 tablet in the evening. Do all this for 14 days. [facility] collagenase (SANTYL) ointment 2022-04 14:00: 00 Yes Topical (Apply To Affected Areas), DAILY, First dose on Thu01/27/23 at 0900, Until Discontinu ed, Routine [facility] zolpidem (AMBIEN) tablet 5 mg 2022-04 02:35: 19 Yes 5mg 5 mg, Oral, QHSPRN, Starting on Thu01/26/23 at 2135, Until Discontinu ed, Routine, Insomnia [facility] metoprolol succinate XL (TOPROL XL) tablet 12.5 mg 2022-04 14:00: 00 Yes 12.5mg 12.5 mg, Oral, DAILY, First dose on Thu01/26/23 at 0900, Until Discontinu ed, Routine [facility] Vitamin E (dl, acetate) capsule 400 Units 2022-04 14:00: 00 Yes 400U 400 Units, Oral, DAILY, First dose on Thu01/26/23 at 0900, Until [facility]continu ed [facility] polyethylen [facility] glycol 3350 powder 17 g 2022-04 14:00: 00 Yes 17g 17 g, Oral, DAILY, First dose on Thu01/26/23 at 0900, Until Discontinu ed [facility] omeprazole (PRILOSEC) capsule 20 mg 2022-04 14:00: 00 Yes 20mg 20 mg, Oral, DAILY, First dose on Thu01/26/23 at 0900, Until Discontinu ed, Routine [facility] lactobacill us acidophilus tablet 0.5 mg 2022-04 14:00: 00 Yes .5mg 0.5 mg, Oral, DAILY, First dose on Thu01/26/23 at 0900, Until Discontinu ed, Routine [facility] docusate (COLACE) 50 mg/5 mL solution 50 mg 2022-04 14:00: 00 Yes 50mg 50 mg, Oral, DAILY, First dose on Thu01/26/23 at 0900, Until Discontinu ed, Routine [facility] zolpidem (AMBIEN) tablet 5 mg 2022-04 06:30: 00 01-26 05:58 :00 No 5mg 5 mg, Oral, ONCE, 1 dose, On Thu01/26/23 at 0130, Routine [facility] heparin (porcine) injection 5,000 Units 2022-04 03:00: 00 Yes 5000U 5,000 Units, Subcutaneo us, Q8H, First dose on Thu01/25/23 at 2200, Until Discontinu ed, Routine [facility] cefTRIAXone (ROCEPHIN) 1,000 mg in NaCl 0.9% [...] uration of therapy: 5 days [facility] traZODone (DESYREL) tablet 25 mg 2022-04 02:00: 00 Yes 25mg 25 mg, Oral, QHS, First dose on 01/25/23 at 2100, Until Discontinu ed [facility] timolol (TIMOPTIC) 0.5 % ophthalmic solution 1 Drop 2022-04 02:00: 00 Yes 1[drp] 1 Drop, Both Eyes, BID, First dose on 01/25/23 at 2100, Until Discontinu ed, Routine [facility] risperiDONE (RISPERDAL) tablet 4 mg 2022-04 02:00: 00 Yes 4mg 4 mg, Oral, QHS, First dose on 01/25/23 at 2100, Until Discontinu ed, Routine [facility] melatonin (MELATIN) tablet 10.5 mg 2022-04 02:00: 00 Yes 10mg 10.5 mg (rounded from 10 mg), Oral, QHS, First dose on 01/25/23 at 2100, Until Discontinu ed [facility] latanoprost (XALATAN) 0.005 % ophthalmic drops 1 Drop 2022-04 02:00: 00 Yes 1[drp] 1 Drop, Both Eyes, QHS, First dose on 01/25/23 at 2100, Until Discontinu ed, Routine [facility] donepeziL (ARICEPT) tablet 10 mg 2022-04 02:00: 00 Yes 10mg 10 mg, Oral, QHS, First dose on Thu01/25/23 at 2100, Until Discontinu ed [facility] doxazosin (CARDURA) tablet 1 mg 2022-04 02:00: 00 Yes 1mg 1 mg, Oral, QHS, First dose on Thu01/25/23 at 2100, Until Discontinu ed, Routine [facility] acetaminoph en (TYLENOL) tablet 1,000 mg 2022-04 02:00: 00 Yes 1000mg 1,000 mg, Oral, QHS, First dose on Thu01/25/23 at 2100, Until Discontinu ed, Routine [facility] brimonidine (ALPHAGAN) 0.2 % ophthalmic solution 1 Drop 2022-04 02:00: 00 Yes 1[drp] 1 Drop, Both Eyes, BID, First dose on Thu01/25/23 at 2100, Until Discontinu ed, Routine [facility] simvastatin (ZOCOR) tablet 40 mg 2022-04 02:00: 00 01-27 22:47 :39 No 40mg 40 mg, Oral, QHS, First dose on Thu01/25/23 at 2100, Until Discontinu ed, Routine [facility] guaiFENesin 100 mg/5 mL solution 200 mg 2022-04 00:20: 03 01-28 14:34 :14 No 200mg 200 mg, Oral, Q4HPRN, Starting on Thu01/25/23 at 1920, Until Thu01/28/23 at 0934, Routine, Cough [facility] vancomycin 1,250 mg in NaCl 0.9% [...] Bone
Du ration of therapy: 72 hours [facility] ondansetron (ZOFRAN (PF)) injection 4 mg 2022-04 22:25: 28 Yes 4mg 4 mg, Slow IV Push, Q6HPRN, Starting on Thu01/25/23 at 1725, Until Discontinu ed, Routine, Nausea and Vomiting (N/V) [facility] acetaminoph en (TYLENOL) tablet 650 mg 2022-04 22:25: 21 Yes 650mg 650 mg, Oral, Q6HPRN, Starting on Thu01/25/23 at 1725, Until Discontinu ed, Routine, Pain (scale 1-3) [facility] ampicillin- sulbactam (UNASYN) 3 g in NaCl 0.9% (NS) 100 mL MINI-BAG 2022-04 20:15: 00 01-25 21:19 :00 No 3g 3 g, IV Piggyback, ONCE, 1 dose, On Thu01/25/23 at 1515, Administer over 30 Minutes, 100 mL
Reas on for Anti-Infec tive: Documented Infection< br>Documen nichole Infection Site: Skin / Soft Tissue
Duration of Therapy: 7 days [facility] Fish Oil-DHA-EPA 1,200-144-2 16 mg Cap 2022-04 18:31: 29 01-25 00:00 :00 No 1{capsu le} Take 1 capsule by mouth daily. [facility] collagenase (SANTYL) ointment 12-01 16:00: 00 Yes Topical (Apply To Affected Areas), DAILY, First dose on Thu12/01/22 at 1100, Until Discontinu ed, Routine [facility] Vitamin E (E-PHEROL) 400 unit Tab 12-01 15:03: 18 Yes 2{tbl} Take 2 tablets by mouth daily. [facility] latanoprost (XALATAN) 0.005 % ophthalmic drops 12-01 15:03: 18 Yes 1[drp] 1 Drop every evening. [facility] brimonidine (ALPHAGAN) 0.2 % ophthalmic solution 12-01 15:03: 18 Yes 1[drp] Take 1 Drop in the morning and 1 Drop at noon and 1 Drop in the evening. [facility] Fish Oil-DHA-EPA 1,200-144-2 16 mg Cap 12-01 15:03: 18 Yes 1{capsu le} Take 1 capsule by mouth daily. [facility] melatonin 10 mg Tab 12-01 15:03: 18 Yes 10mg Take 10 mg by mouth at bedtime. [facility] acetaminoph en 500 mg tablet 12-01 15:03: 18 Yes 1000mg Take 2 tablets by mouth at bedtime. [facility] mv-mn/iron/ folic acid/herb 190 (VITAMIN D3 COMPLETE ORAL) 12-01 15:03: 18 Yes 5000U/d Take 5,000 Units/day by mouth daily. [facility] timolol 0.25 % ophthalmic solution 12-01 15:03: 18 Yes 1[drp] Place 1 Drop in both eyes in the morning and 1 Drop in the evening. [facility] trazodone HCl (TRAZODONE ORAL) 12-01 15:03: 18 Yes 25mg Take 25 mg by mouth at bedtime. [facility] risperiDONE (RISPERDAL) tablet 4 mg 12-01 02:00: 00 Yes 4mg 4 mg, Oral, QHS, First dose (after last modificati on) on 11/30/22 at 2100, Until Discontinu ed, Routine [facility] clindamycin 75 mg/5 mL suspension 12-01 00:00: 00 12-10 04:59 :00 No [id number] 150mg Take 10 mL by mouth 4 (four) times daily for 8 days. [facility] tamsulosin (FLOMAX) capsule 0.4 mg 11-30 14:00: 00 Yes .4mg 0.4 mg, Oral, DAILY, First dose on Thu11/30/22 at 0900, Until Discontinu ed, [facility] omepraz[facility] (PRILOSEC) capsule 20 mg 11-30 14:00: 00 Yes 20mg 20 mg, Oral, DAILY, First dose on Thu11/30/22 at 0900, Until Discontinu ed, Routine [facility] docusate (COLACE) 50 mg/5 mL solution 100 mg 11-30 14:00: 00 Yes 100mg 100 mg, Oral, DAILY, First dose on Thu11/30/22 at 0900, Until Discontinu ed, [facility]ine [facility] glycerin/mi neral oil (AGLO ENEMA) (COMPOUNDED ) Enem 225 mL 11-30 14:00: 00 11-30 14:49 :00 No 225mL 225 mL, Rectal, ONCE, 1 dose, On Thu11/30/22 at 0900, Routine [facility] timolol (TIMOPTIC) 0.5 % ophthalmic solution 1 Drop 11-30 13:00: 00 Yes 1[drp] 1 Drop, Both Eyes, BID, First dose on Thu11/30/22 at 0800, Until Discontinu ed, Routine [facility] brimonidine (ALPHAGAN) 0.2 % ophthalmic solution 1 Drop 11-30 13:00: 00 Yes 1[drp] 1 Drop, Both Eyes, TID, First dose on Thu11/30/22 at 0800, Until Discontinu ed, Routine [facility] clindamycin in 5 % dextrose (CLEOCIN) 600 [...] After Hours (for ADC, CLC, LCC ONLY) [facility] NaCl 0.9% (NS) IV infusion 1,000 mL 11-30 03:15: 00 11-30 03:02 :43 No 1000mL at 75 mL/hr, IV Infusion, ONCE, 1 dose, On 11/29/22 at 2215, Routine [facility] heparin (porcine) injection 5,000 Units 11-30 03:00: 00 Yes 5000U 5,000 Units, Subcutaneo us, Q8H, First dose on 11/29/22 at 2200, Until Discontinu ed, Routine [facility] risperiDONE (RISPERDAL) tablet 4 mg 11-30 02:30: 00 11-30 22:24 :26 No 4mg 4 mg, Oral, QPM, First dose (after last modificati on) on 11/29/22 at 2130, Until Discontinu ed, Routine [facility] simvastatin (ZOCOR) tablet 40 mg 11-30 02:00: 00 Yes 40mg 40 mg, Oral, QHS, First dose on 11/29/22 at 2100, Until Discontinu ed, Routine [facility] melatonin (MELATIN) tablet 10.5 mg 11-30 02:00: 00 Yes 10mg 10.5 mg (rounded from 10 mg), Oral, QHS, First dose on 11/29/22 at 2100, Until Discontinu ed [facility] traZODone (DESYREL) tablet 25 mg 11-30 01:47: 26 Yes 25mg 25 mg, Oral, QHSPRN, Starting on 11/29/22 at 2046, Until Discontinu ed, Insomnia [facility] dextrometho rphan-guaif enesin (ROBITUSSIN DM) 10-100 mg/5 mL solution 10 mL 11-30 01:41: 51 Yes 10mL 10 mL, Oral, Q6HPRN, Starting on Thu11/29/22 at 2041, Until Discontinu ed, Routine, Cough [facility] acetaminoph en (TYLENOL) tablet 650 mg 11-30 00:19: 33 Yes 650mg 650 mg, Oral, Q6HPRN, Starting on Thu11/29/22 at 1919, Until Discontinu ed, Routine, Pain (scale 1-3) [facility] NaCl 0.9% (NS) bolus infusion 1,000 mL 11-29 23:45: 00 11-29 23:11 :00 No 1000mL at 999 mL/hr, 1,000 mL, IV Piggyback, ONCE, 1 dose, On Thu11/29/22 at 1845, STAT [facility] LORazepam (ATIVAN) injection 0.5 mg 11-29 23:00: 00 11-29 23:09 :00 No .5mg 0.5 mg, Slow IV Push, ONCE, 1 dose, On Thu11/29/22 at 1800, STAT [facility] lactulose (CEPHULAC) solution 30 mL 11-26 23:00: 00 11-27 01:06 :00 No 30mL 30 mL, Oral, ONCE, 1 dose, On Thu11/26/22 at 1800, ROCKY [facility] iopamidol (ISOVUE 370-500 mL) injection 80 mL 11-26 22:45: 00 11-26 22:45 :00 No [id number] 80mL 80 mL, Intravenou s, ONCE, 1 dose, On Thu11/26/22 at 1745, Routine [facility] NaCl 0.9% (NS) bolus infusion 500 mL 11-26 19:15: 00 11-26 20:30 :00 No 500mL at 999 mL/hr, 500 mL, IV Infusion, ONCE, 1 dose, On Thu11/26/22 at 1415, STAT [facility] doxazosin 2 mg tablet 11-11 00:00: 00 Yes 1mg Take 0.5 tablets by mouth at bedtime. [facility] Vitamin E (E-PHEROL) 400 unit Tab 10-30 14:25: 29 Yes 2{tbl} Take 2 tablets by mouth daily. [facility] latanoprost (XALATAN) 0.005 % ophthalmic drops 10-30 14:25: 29 Yes 1[drp] 1 Drop every evening. [facility] brimonidine (ALPHAGAN) 0.2 % ophthalmic solution 10-30 14:25: 29 Yes 1[drp] Take 1 Drop in the morning and 1 Drop at noon and 1 Drop in the evening. [facility] Fish Oil-DHA-EPA 1,200-144-2 16 mg Cap 10-30 14:25: 29 Yes 1{capsu le} Take 1 capsule by mouth daily. [facility] melatonin 10 mg Tab 10-30 14:25: 29 Yes 10mg Take 10 mg by mouth at bedtime. [facility] acetaminoph en 500 mg tablet 10-30 14:25: 29 Yes 1000mg Take 2 tablets by mouth at bedtime. [facility] mv-mn/iron/ folic acid/herb 190 (VITAMIN D3 COMPLETE ORAL) 10-30 14:25: 29 Yes 5000U/d Take 5,000 Units/day by mouth daily. [facility] timolol 0.25 % ophthalmic solution 10-30 14:25: 29 Yes 1[drp] Place 1 Drop in both eyes in the morning and 1 Drop in the evening. [facility] trazodone HCl (TRAZODONE ORAL) 10-30 14:25: 29 Yes 25mg Take 25 mg by mouth at bedtime. [facility] collagenase (SANTYL) ointment 10-30 14:00: 00 Yes Topical (Apply To Affected Areas), DAILY, First dose (after last modificati on) on Thu10/30/22 at 0900, Until Discontinu ed, Routine [facility] dextrometho yan-aldof enesin 10-100 mg/5 mL solution 10-30 00:00: 00 Yes [id number] 10mL Take 10 mL by mouth every 6 (six) hours as needed for Cough. [facility] amoxicillin -pot clavulanate (AUGMENTIN) 250-62.5 mg/5 mL suspension 10-30 00:00: 00 11-07 04:59 :00 No [id number] 500mg Take 10 mL by mouth in the morning and 10 mL at noon and 10 mL in the evening. Do all this for 7 days. [facility] predniSONE 5 mg/5 mL solution 10-30 00:00: 00 11-05 04:59 :00 No [id number] 20mg Take 20 mL by mouth in the morning for 5 days. [facility] codeine-gua ifenesin (ROBITUSSIN AC) 10-100 mg/5 mL oral solution 5 mL 10-29 17:49: 39 Yes [id number] 5mL 5 mL, Oral, Q6HPRN, Starting on Thu10/29/22 at 1249, Until Discontinu ed, Routine, Cough [facility] latanoprost (XALATAN) 0.005 % ophthalmic drops 1 Drop 10-29 02:45: 00 Yes 1[drp] 1 Drop, Both Eyes, QPM, First dose on Thu10/28/22 at 2145, Until Discontinu ed, Routine [facility] brimonidine (ALPHAGAN) 0.2 % ophthalmic solution 1 Drop 10-29 02:45: 00 Yes 1[drp] 1 Drop, Both Eyes, BID, First dose on Thu10/28/22 at 2145, Until Discontinu ed, Routine [facility] timolol (TIMOPTIC) 0.25 % ophthalmic solution 1 Drop 10-29 02:45: 00 Yes 1[drp] 1 Drop, Both Eyes, BID, First dose on Thu10/28/22 at 2145, Until Discontinu ed, Routine [facility] traZODone (DESYREL) tablet 25 mg 10-29 02:00: 00 Yes 25mg 25 mg, Oral, QHS, First dose on Thu10/28/22 at 2100, Until Discontinu ed [facility] simvastatin (ZOCOR) tablet 40 mg 10-29 02:00: 00 Yes 40mg 40 mg, Oral, QHS, First dose on Thu10/28/22 at 2100, Until Discontinu ed, Routine [facility] risperiDONE (RISPERDAL) tablet 4 mg 10-28 22:00: 00 Yes 4mg 4 mg, Oral, QPM, First dose on Thu10/28/22 at 1700, Until Discontinu ed, Routine [facility] enoxaparin (LOVENOX) injection 40 mg 10-28 14:00: 00 Yes 40mg 40 mg, Subcutaneo us, DAILY, First dose on Thu10/28/22 at 0900, Until Discontinu ed, Routine [facility] omeprazole (PRILOSEC) capsule 20 mg 10-28 14:00: 00 Yes 20mg 20 mg, Oral, DAILY, First dose on Thu10/28/22 at 0900, Until Discontinu ed, Routine [facility] lactobacill us acidophilus tablet 0.5 mg 10-28 14:00: 00 Yes .5mg 0.5 mg, Oral, DAILY, First dose on Thu10/28/22 at 0900, Until Discontinu ed, Routine [facility] docusate (COLACE) 50 mg/5 mL solution 100 mg 10-28 14:00: 00 Yes 100mg 100 mg, Oral, DAILY, First dose on Thu10/28/22 at 0900, Until Discontinu ed, Routine [facility] ipratropium -albuteroL (DUONEB) 0.5 mg-3 mg(2.5 mg base)/3 mL nebulizer solution 3 mL 10-28 13:00: 00 Yes 3mL 3 mL, Inhalation , QID, First dose on Thu10/28/22 at 0800, Until Discontinu ed, Routine [facility] galantamine (REMINYL) tablet 8 mg 10-28 13:00: 00 Yes 8mg 8 mg, Oral, BID, First dose on Thu10/28/22 at 0800, Until Discontinu ed, Routine [facility] glucagon (GLUCAGEN DIAGNOSTIC KIT) injection 1 mg 10-28 12:15: 24 Yes 1mg 1 mg, Intramuscu lar, PRN, Starting on Thu10/28/22 at 0715, Until Discontinu ed, ROCKY, Blood Glucose < or = 70 mg/dL and patient is NPO, unable to swallow or has mental changes. [facility] dextrose 50 % in water (D50W) injection 25 mL 10-28 12:15: 24 Yes 25mL 25 mL, Slow IV Push, PRN, Starting on Thu10/28/22 at 0715, Until Discontinu ed, ROCKY, Blood Glucose < or = 70 mg/dL and patient is NPO, unable to swallow or has mental status changes. [facility] ondansetron (ZOFRAN (PF)) injection 4 mg 10-28 11:43: 22 Yes 4mg 4 mg, Slow IV Push, Q6HPRN, Starting on Thu10/28/22 at 0643, Until Discontinu ed, Routine, Nausea and Vomiting (N/V) [facility] acetaminoph en (TYLENOL) tablet 650 mg 10-28 11:43: 10 Yes 650mg 650 mg, Oral, Q6HPRN, Starting on Thu10/28/22 at 0643, Until Discontinu ed, Routine, Pain (scale 1-3) [facility] acetaminoph en (TYLENOL) tablet 650 mg 10-28 06:45: 00 10-28 07:25 :00 No 650mg 650 mg, Oral, ONCE, 1 dose, On Thu10/28/22 at 0145, ROCKY [facility] NaCl 0.9% (NS) injection 5 mL 10-28 06:37: 55 Yes 5mL 5 mL, Slow IV Push, PRN - SEE INSTRUCTIO NS, Starting on Thu10/28/22 at 0137, Until Discontinu ed, 10 mL [facility] Vitamin E (E-PHEROL) 400 unit Tab 08-27 14:48: 28 Yes 2{tbl} Take 2 tablets by mouth daily. [facility] latanoprost (XALATAN) 0.005 % ophthalmic drops 08-27 14:48: 28 Yes 1[drp] 1 Drop every evening. [facility] brimonidine (ALPHAGAN) 0.2 % ophthalmic solution 08-27 14:48: 28 Yes 1[drp] Take 1 Drop in the morning and 1 Drop at noon and 1 Drop in the evening. [facility] Fish Oil-DHA-EPA 1,200-144-2 16 mg Cap 08-27 14:48: 28 Yes 1{capsu le} Take 1 capsule by mouth daily. [facility] melatonin 10 mg Tab 08-27 14:48: 28 Yes 10mg Take 10 mg by mouth at bedtime. [facility] acetaminoph en 500 mg tablet 08-27 14:48: 28 Yes 1000mg Take 2 tablets by mouth at bedtime. [facility] mv-mn/iron/ folic acid/herb 190 (VITAMIN D3 COMPLETE ORAL) 08-27 14:48: 28 Yes 5000U/d Take 5,000 Units/day by mouth daily. [facility] timolol 0.25 % ophthalmic solution 08-27 14:48: 28 Yes 1[drp] Place 1 Drop in both eyes in the morning and 1 Drop in the evening. [facility] tamsulosin (FLOMAX) 0.4 mg 24 hr capsule 08-27 00:00: 00 01-25 00:00 :00 No [id number] .4mg Take 1 capsule by mouth in the morning. [facility] docusate 50 mg/5 mL solution 07-27 00:00: 00 Yes [id number] 100mg Take 10 mL by mouth in the morning. [facility] collagenase 250 unit/gram ointment 07-27 00:00: 00 08-07 04:59 :00 No [id number] Apply to affected area(s) daily for 10 days. [facility] risperiDONE (RISPERDAL) tablet 2 mg 07-26 22:00: 00 Yes 2mg 2 mg, Oral, QPM, First dose (after last modificati on) on 07/26/22 at 1700, Until Discontinu ed, Routine [facility] Vitamin E (E-PHEROL) 400 unit Tab 07-26 16:43: 26 Yes 2{tbl} Take 2 tablets by mouth daily. [facility] latanoprost (XALATAN) 0.005 % ophthalmic drops 07-26 16:43: 26 Yes 1[drp] 1 Drop every evening. [facility] brimonidine (ALPHAGAN) 0.2 % ophthalmic solution 07-26 16:43: 26 Yes 1[drp] Take 1 Drop in the morning and 1 Drop at noon and 1 Drop in the evening. [facility] Fish Oil-DHA-EPA 1,200-144-2 16 mg Cap 07-26 16:43: 26 Yes 1{capsu le} Take 1 capsule by mouth daily. [facility] melatonin 10 mg Tab 07-26 16:43: 26 Yes 10mg Take 10 mg by mouth at bedtime. [facility] acetaminoph en 500 mg tablet 07-26 16:43: 26 Yes 1000mg Take 2 tablets by mouth at bedtime. [facility] mv-mn/iron/ folic acid/herb 190 (VITAMIN D3 COMPLETE ORAL) 07-26 16:43: 26 Yes 5000U/d Take 5,000 Units/day by mouth daily. [facility] timolol 0.25 % ophthalmic solution 07-26 16:43: 26 Yes 1[drp] Place 1 Drop in both eyes in the morning and 1 Drop in the evening. [facility] amoxicillin -clavulanat e 400-57 mg/5 mL suspension 07-26 00:00: 00 08-22 04:59 :00 No [id number] 800mg Take 10 mL by mouth in the morning and 10 mL in the evening. Do all this for 52 doses. [facility] SODIUM HYPOCHLORIT E 0.025% Soln solution 07-26 00:00: 00 07-28 04:59 :00 No [id number] 1000mL Apply 1,000 mL to area(s) in the morning for 1 dose. [facility] amoxicillin -clavulanat e (AUGMENTIN) 875-125 mg per tablet 1 tablet 07-25 21:00: 00 08-22 08:59 :00 No 1{tbl} 1 tablet, Oral, Q12H ABX, 55 doses, First dose (after last modificati on) on Thu07/25/22 at 1600, Last dose on Thu08/21/22 at 1600, Routine
Reason for Anti-Infec tive: Documented Infection< br>Documen nichole Infection Site: Skin / Soft Tissue
Duration of Therapy: Other (see Comments) [facility] LORazepam (ATIVAN) injection 1 mg 07-25 18:15: 00 07-25 18:04 :00 No 1mg 1 mg, Slow IV Push, ONCE, 1 dose, On Thu07/25/22 at 1315, Routine [facility] iopamidol (ISOVUE 370-500 mL) injection 80 mL 07-25 18:09: 00 07-25 18:11 :00 No [id number] 80mL 80 mL, Intravenou s, ONCE, 1 dose, On Thu07/25/22 at 1330, Routine [facility] amoxicillin -clavulanat e (AUGMENTIN) 875-125 mg per tablet 1 tablet 07-25 04:00: 00 07-25 12:22 :33 No 1{tbl} 1 tablet, Oral, Q12H, 56 doses, First dose on Thu07/24/22 at 2300, Last dose on Thu08/21/22 at 0800, Routine
Reason for Anti-Infec tive: Documented Infection< br>Documen nichole Infection Site: Skin / Soft Tissue
Duration of Therapy: Other (see Comments) [facility] levalbutero l (XOPENEX) nebulizer solution 0.63 mg 07-25 02:51: 00 Yes .63mg 0.63 mg, Inhalation , TIDPRN, Starting on Thu07/24/22 at 2150, Until Discontinu ed, Routine, Wheezing, Shortness of Breath [facility] ipratropium (ATROVENT) 0.02 % nebulizer solution 0.5 mg 07-25 02:22: 54 Yes .5mg 0.5 mg, Inhalation , Q4HPRN, Starting on Thu07/24/22 at 2121, Until Discontinu ed, Routine, Wheezing, Shortness of Breath, Bronchospa sm, Chest tightness [facility] codeine-gua ifenesin (ROBITUSSIN AC) 10-100 mg/5 mL oral solution 5 mL 07-25 02:22: 34 Yes 5mL 5 mL, Oral, Q6HPRN, Starting on Thu07/24/22 at 2121, Until Discontinu ed, Routine, Cough [facility] sodium hypochlorit e 0.25% (DAKIN'S SOLUTION) solution 07-24 22:00: 00 07-24 21:28 :00 No Topical, ONCE, 1 dose, On Thu07/24/22 at 1700, Routine [facility] fluconazole (DIFLUCAN) Piggyback 200 mg 07-24 16:15: 00 07-26 16:20 :00 No 200mg at 100 mL/hr, IV Piggyback, Q24H ABX, 3 doses, First dose on Thu07/24/22 at 1115, Last dose on Thu07/26/22 at 1115, ROCKY
Do Not Refrigerat e.
[facility] piperacilli n-tazobacta m (ZOSYN) 3.375 [...] Soft tissue
Duration of therapy: 72 hours [facility] vancomycin (VANCOCIN) 1,000 mg in NaCl [...] Soft Tissue
Duration of Therapy: 7 days [facility] Vitamin E (dl, acetate) capsule 800 Units 07-23 14:00: 00 Yes 800U 800 Units, Oral, DAILY, First dose on Thu07/23/22 at 0900, Until Discontinu ed, Routine [facility] lactobacill us acidophilus tablet 0.5 mg 07-23 14:00: 00 Yes .5mg 0.5 mg, Oral, DAILY, First dose on Thu07/23/22 at 0900, Until Discontinu ed, Routine [facility] docusate (COLACE) 50 mg/5 mL solution 100 mg 07-22 15:15: 00 Yes 100mg 100 mg, Oral, DAILY, First dose on Thu07/22/22 at 1015, Until Discontinu ed, Routine [facility] QUEtiapine (SEROQUEL) tablet 25 mg 07-22 04:30: 00 07-22 03:55 :00 No 25mg 25 mg, Oral, ONCE, 1 dose, On Thu07/21/22 at 2330, Routine [facility] simvastatin (ZOCOR) tablet 40 mg 07-22 02:00: 00 Yes 40mg 40 mg, Oral, QHS, First dose on Thu07/21/22 at 2100, Until Discontinu ed, Routine [facility] latanoprost (XALATAN) 0.005 % ophthalmic drops 1 Drop 07-21 22:00: 00 Yes 1[drp] 1 Drop, Both Eyes, QPM, First dose on Thu07/21/22 at 1700, Until Discontinu ed, Routine [facility] piperacilli n-tazobacta m (ZOSYN) 3.375 g in [...]
Duration of therapy: 72 hours [facility] collagenase (SANTYL) ointment 07-21 15:45: 00 Yes Topical (Apply To Affected Areas), DAILY, First dose on Thu07/21/22 at 1045, Until Discontinu ed, Routine [facility] galantamine (REMINYL) tablet 8 mg 07-21 15:15: 00 Yes 8mg 8 mg, Oral, BID, First dose on Thu07/21/22 at 1015, Until Discontinu ed, Routine [facility] tamsulosin (FLOMAX) capsule 0.4 mg 07-21 14:00: 00 Yes .4mg 0.4 mg, Oral, DAILY, First dose on Thu07/21/22 at 0900, Until Discontinu ed, Routine [facility] omeprazole (PRILOSEC) capsule 20 mg 07-21 14:00: 00 Yes 20mg 20 mg, Oral, DAILY, First dose on Thu07/21/22 at 0900, Until Discontinu ed, Routine [facility] enoxaparin (LOVENOX) injection 40 mg 07-21 14:00: 00 Yes 40mg 40 mg, Subcutaneo us, DAILY, First dose on Thu07/21/22 at 0900, Until Discontinu ed, Routine [facility] docusate (COLACE) capsule 100 mg 07-21 14:00: 00 07-22 15:13 :38 No 100mg 100 mg, Oral, DAILY, First dose on Thu07/21/22 at 0900, Until Discontinu ed, Routine [facility] timolol (TIMOPTIC) 0.5 % ophthalmic solution 1 Drop 07-21 13:30: 00 Yes 1[drp] 1 Drop, Both Eyes, BID, First dose on Thu07/21/22 at 0830, Until Discontinu ed, Routine [facility] brimonidine (ALPHAGAN) 0.2 % ophthalmic solution 1 Drop 07-21 13:00: 00 Yes 1[drp] 1 Drop, Both Eyes, TID, First dose on Thu07/21/22 at 0800, Until Discontinu ed, Routine [facility] melatonin (MELATIN) tablet 9 mg 07-21 05:15: 00 Yes 9mg 9 mg, Oral, QHS, First dose (after last modificati on) on Thu07/21/22 at 0015, Until Discontinu ed [facility] acetaminoph en (TYLENOL) tablet 1,000 mg 07-21 05:00: 00 Yes 1000mg 1,000 mg, Oral, QHS, First dose (after last modificati on) on Thu07/21/22 at 0000, Until Discontinu ed, Routine [facility] risperiDONE (RISPERDAL) tablet 4 mg 07-21 05:00: 00 07-26 02:28 :57 No 4mg 4 mg, Oral, QPM, First dose (after last modificati on) on Thu07/21/22 at 0000, Until Discontinu ed, Routine [facility] piperacilli n-tazobacta m (ZOSYN) 3.375 [...] Soft tissue
Duration of therapy: 72 hours [facility] NaCl 0.9% (NS) bolus infusion 1,000 mL 07-21 03:15: 00 07-21 02:30 :00 No 1000mL at 999 mL/hr, 1,000 mL, IV Piggyback, ONCE, 1 dose, On Thu07/20/22 at 2215, STAT [facility] ondansetron (ZOFRAN (PF)) injection 4 mg 07-21 02:47: 49 Yes 4mg 4 mg, Slow IV Push, Q6HPRN, Starting on Thu07/20/22 at 2147, Until Discontinu ed, Routine, Nausea and Vomiting (N/V) [facility] HYDROcodone -acetaminop hen (NORCO) 10-325 mg tablet 1 tablet 07-21 02:47: 43 Yes 1{tbl} 1 tablet, Oral, Q6HPRN, Starting on Thu07/20/22 at 2147, Until Discontinu ed, Routine, Pain (scale 7-10) [facility] acetaminoph en (TYLENOL) tablet 650 mg 07-21 02:47: 34 Yes 650mg 650 mg, Oral, Q6HPRN, Starting on Thu07/20/22 at 2147, Until Discontinu ed, Routine, Pain (scale 1-3) [facility] NaCl 0.9% (NS) bolus infusion 1,000 mL 07-18 21:00: 00 07-18 22:16 :00 No 1000mL at 999 mL/hr, 1,000 mL, IV Piggyback, ONCE, 1 dose, On Thu07/18/22 at 1600, STAT [facility] piperacilli n-tazobacta m (ZOSYN) 3.375 g in NaCl 0.9% (NS) 100 mL MINI-BAG 07-18 20:00: 00 07-18 21:09 :00 No 3.375g 3.375 g, IV Piggyback, ONCE, 1 dose, On Thu07/18/22 at 1500, Administer over 30 Minutes, 100 mL
Reas on for Anti-Infec tive: Documented Infection< br>Documen nichole Infection Site: Skin / Soft Tissue
Duration of Therapy: 7 days [facility] cefpodoxime 200 mg tablet 07-18 00:00: 00 08-02 04:59 :00 No [id number] 200mg Take 1 tablet by mouth in the morning and 1 tablet in the evening. Do all this for 14 days. [facility] levoFLOXaci n 750 mg tablet 07-18 00:00: 00 07-29 04:59 :00 No [id number] 750mg Take 1 tablet by mouth every 24 (twenty-fo ur) hours for 10 days. [facility] iopamidol (ISOVUE 370-500 mL) injection 78 mL 06-10 19:45: 00 06-10 19:45 :00 No [id number] 78mL 78 mL, Intravenou s, ONCE, 1 dose, On Thu06/10/22 at 1345, Routine [facility] ondansetron (ZOFRAN (PF)) injection 4 mg 06-10 17:45: 00 06-10 17:13 :00 No 4mg 4 mg, Slow IV Push, ONCE, 1 dose, On Thu06/10/22 at 1145, ROCKY [facility] polyethylen e glycol 3350 powder 17 g 05-28 15:00: 00 Yes 17g 17 g, Oral, DAILY, First dose on Thu05/28/22 at 0900, Until Discontinu ed, Routine [facility] tamsulosin (FLOMAX) capsule 0.4 mg 05-28 15:00: 00 Yes .4mg 0.4 mg, Oral, DAILY, First dose on Thu05/28/22 at 0900, Until Discontinu ed, Routine [facility] omeprazole (PRILOSEC) capsule 20 mg 05-28 15:00: 00 Yes 20mg 20 mg, Oral, DAILY, First dose on Thu05/28/22 at 0900, Until Discontinu ed, Routine [facility] lactobacill us acidophilus tablet 0.5 mg 05-28 15:00: 00 Yes .5mg 0.5 mg, Oral, DAILY, First dose on Thu05/28/22 at 0900, Until Discontinu ed, Routine [facility] Vitamin E (E-PHEROL) 400 unit Tab 05-28 14:50: 45 Yes 2{tbl} Take 2 tablets by mouth daily. [facility] latanoprost (XALATAN) 0.005 % ophthalmic drops 05-28 14:50: 45 Yes 1[drp] 1 Drop every evening. [facility] brimonidine (ALPHAGAN) 0.2 % ophthalmic solution 05-28 14:50: 45 Yes 1[drp] 1 Drop 3 (three) times daily. [facility] Fish Oil-DHA-EPA 1,200-144-2 16 mg Cap 05-28 14:50: 45 Yes 1{capsu le} Take 1 capsule by mouth daily. [facility] melatonin 10 mg Tab 05-28 14:50: 45 Yes 10mg Take 10 mg by mouth at bedtime. [facility] acetaminoph en 500 mg tablet 05-28 14:50: 45 Yes 1000mg Take 1,000 mg by mouth at bedtime. [facility] mv-mn/iron/ folic acid/herb 190 (VITAMIN D3 COMPLETE ORAL) 05-28 14:50: 45 Yes 5000U/d Take 5,000 Units/day by mouth daily. [facility] timolol 0.25 % ophthalmic solution 05-28 14:50: 45 Yes 1[drp] Place 1 Drop in both eyes 2 (two) times daily. [facility] acetaminoph en (TYLENOL) tablet 1,000 mg 05-28 03:00: 00 Yes 1000mg 1,000 mg, Oral, QHS, First dose on Thu05/27/22 at 2100, Until Discontinu ed, Routine [facility] simvastatin (ZOCOR) tablet 40 mg 05-28 03:00: 00 Yes 40mg 40 mg, Oral, QHS, First dose on Thu05/27/22 at 2100, Until Discontinu ed, Routine [facility] melatonin (MELATIN) tablet 9 mg 05-28 03:00: 00 Yes 9mg 9 mg, Oral, QHS, First dose on Thu05/27/22 at 2100, Until Discontinu ed [facility] docusate (COLACE) capsule 100 mg 05-28 02:00: 00 Yes 100mg 100 mg, Oral, BID, First dose on Thu05/27/22 at 2000, Until Discontinu ed, Routine [facility] galantamine (REMINYL) tablet 8 mg 05-28 02:00: 00 Yes 8mg 8 mg, Oral, BID, First dose on Thu05/27/22 at 2000, Until Discontinu ed, [facility] 0.5 % ophthalmic solution 1 Drop 05-28 02:00: 00 Yes 1[drp] 1 Drop, Both Eyes, BID, First dose on Thu05/27/22 at 1999, Until Discontinu ed [facility] amoxicillin -clavulanat e (AUGMENTIN) 875-125 mg per tablet 05-28 00:00: 00 06-02 05:59 :00 No [id number] 1{tbl} Take 1 tablet by mouth in the morning and 1 tablet in the evening. Do all this for 4 days. [facility] risperiDONE (RISPERDAL) tablet 4 mg 05-27 23:00: 00 Yes 4mg 4 mg, Oral, QPM, First dose on Thu05/27/22 at 1700, Until Discontinu ed, Routine [facility] latanoprost (XALATAN) 0.005 % ophthalmic drops 1 Drop 05-27 23:00: 00 Yes 1[drp] 1 Drop, Both Eyes, QPM, First dose on Thu05/27/22 at 1700, Until Discontinu ed, Routine [facility] piperacilli n-tazobacta m (ZOSYN) 3.375 g [...] Abdominal< br>Duratio n of Therapy: 7 days [facility] lactulose (CEPHULAC) solution 30 mL 05-27 15:45: 00 05-27 16:31 :00 No 30mL 30 mL, Oral, ONCE, 1 dose, On Thu05/27/22 at 0945, Routine [facility] enoxaparin (LOVENOX) injection 40 mg 05-27 15:00: 00 Yes 40mg 40 mg, Subcutaneo us, DAILY, First dose on Thu05/27/22 at 0900, Until Discontinu ed, Routine [facility] aspirin 81 mg EC tablet 05-27 11:23: 35 05-27 00:00 :00 No 81mg Take 81 mg by mouth daily. [facility] piperacilli n-tazobacta m (ZOSYN) 3.375 g in NaCl 0.9% (NS) 100 mL MINI-BAG 05-27 09:30: 00 05-27 10:36 :00 No 3.375g 3.375 g, IV Piggyback, ONCE, 1 dose, On Thu05/27/22 at 0330, Administer over 30 Minutes, 100 mL
Reas on for Anti-Infec tive: Documented Infection< br>Documen nichole Infection Site: Abdominal< br>Duratio n of Therapy: 7 days [facility] NaCl 0.9% (NS) IV infusion 1,000 mL 05-27 04:15: 00 05-27 12:39 :00 No 1000mL at 125 mL/hr, IV Infusion, ONCE, 1 dose, On Thu05/26/22 at 2215, Routine [facility] ondansetron (ZOFRAN (PF)) injection 4 mg 05-27 03:29: 20 Yes 4mg 4 mg, Slow IV Push, Q6HPRN, Starting on Thu05/26/22 at 2128, Until Discontinu ed, Routine, Nausea and Vomiting (N/V) [facility] traMADoL (ULTRAM) tablet 50 mg 05-27 03:29: 11 05-29 03:28 :11 No 50mg 50 mg, Oral, Q8HPRN, Starting on Thu05/26/22 at 2128, Until Thu05/28/22 at 2127, Routine, Pain (scale 4-6) [facility] acetaminoph en (TYLENOL) tablet 650 mg 05-27 03:29: 08 Yes 650mg 650 mg, Oral, Q6HPRN, Starting on Thu05/26/22 at 2128, Until Discontinu ed, Routine, Pain (scale 1-3) [facility] cefTRIAXone (ROCEPHIN) 1,000 mg in NaCl 0.9% (NS) 100 mL MINI-BAG 05-27 02:45: 00 05-27 03:18 :00 No 1000mg 1,000 mg, IV Piggyback, ONCE, 1 dose, On Thu05/26/22 at 2045, Administer over 30 Minutes, 100 mL
Reas on for Anti-Infec tive: Documented Infection< br>Documen nichole Infection Site: Abdominal< br>Duratio n of Therapy: 7 days [facility] ondansetron (ZOFRAN (PF)) injection 4 mg 05-27 00:15: 00 05-27 00:10 :00 No 4mg 4 mg, Slow IV Push, ONCE, 1 dose, On Thu05/26/22 at 1815, ROCKY [facility] ciprofloxac in HCl (CIPRO) tablet 500 mg 05-06 03:00: 00 05-11 02:59 :00 No 500mg 500 mg, Oral, Q12H ABX, 10 doses, First dose on Thu05/05/22 at 2100, Last dose on Thu05/10/22 at 0900, ROCKY
Re ason for Anti-Infec tive: Documented Infection< br>Documen nichole Infection Site: Abdominal< br>Duratio n of Therapy: 7 days [facility] metroNIDAZO LE (FLAGYL) tablet 500 mg 05-06 02:00: 00 05-11 01:59 :00 No 500mg 500 mg, Oral, Q12H, 10 doses, First dose on Thu05/05/22 at 2000, Last dose on Thu05/10/22 at 0800, Routine
Reason for Anti-Infec tive: Documented Infection< br>Documen nichole Infection Site: Abdominal< br>Duratio n of Therapy: 7 days [facility] lactobacill us acidophilus 05-06 00:00: 00 Yes .5mg Take 1 tablet by mouth in the morning. [facility] hydroCHLORO thiazide 12.5 mg tablet 05-06 00:00: 00 05-26 00:00 :00 No 12.5mg Take 1 tablet by mouth in the morning. [facility] Vitamin E (E-PHEROL) 400 unit Tab 05-05 18:25: 31 Yes 2{tbl} Take 2 tablets by mouth daily. [facility] aspirin 81 mg EC tablet 05-05 18:25: 31 Yes 81mg Take 81 mg by mouth daily. [facility] latanoprost (XALATAN) 0.005 % ophthalmic drops 05-05 18:25: 31 Yes 1[drp] 1 Drop every evening. [facility] brimonidine (ALPHAGAN) 0.2 % ophthalmic solution 05-05 18:25: 31 Yes 1[drp] 1 Drop 3 (three) times daily. [facility] Fish Oil-DHA-EPA 1,200-144-2 16 mg Cap 05-05 18:25: 31 Yes 1{capsu le} Take 1 capsule by mouth daily. [facility] melatonin 10 mg Tab 05-05 18:25: 31 Yes 10mg Take 10 mg by mouth at bedtime. [facility] acetaminoph en 500 mg tablet 05-05 18:25: 31 Yes 1000mg Take 1,000 mg by mouth at bedtime. [facility] diphenhydrA MINE (BENADRYL) tablet 25 mg 05-05 10:43: 00 Yes 25mg 25 mg, Oral, Q6HPRN, Starting on Thu05/05/22 at 0443, Until Discontinu ed, Routine, Itching [facility] ciprofloxac in HCl 500 mg tablet 05-05 00:00: 00 05-26 00:00 :00 No 500mg Take 1 tablet by mouth every 12 (twelve) hours. [facility] metroNIDAZO LE 500 mg tablet 05-05 00:00: 00 05-26 00:00 :00 No 500mg Take 1 tablet by mouth every 12 (twelve) hours. [facility] diphenhydrA MINE (BENADRYL) tablet 25 mg 05-04 16:15: 00 05-04 16:25 :00 No 25mg 25 mg, Oral, ONCE, 1 dose, On 05/04/22 at 1015, Routine [facility] simvastatin (ZOCOR) tablet 40 mg 05-04 03:00: 00 Yes 40mg 40 mg, Oral, QHS, First dose on 05/03/22 at 2100, Until Discontinu ed, Routine [facility] risperiDONE (RISPERDAL) tablet 2 mg 05-03 23:00: 00 Yes 2mg 2 mg, Oral, QPM, First dose (after last modificati on) on 05/03/22 at 1700, Until Discontinu ed, Routine [facility] latanoprost (XALATAN) 0.005 % ophthalmic drops 1 Drop 05-03 23:00: 00 Yes 1[drp] 1 Drop, Both Eyes, QPM, First dose on 05/03/22 at 1700, Until Discontinu ed, Routine [facility] lactobacill us acidophilus tablet 0.5 mg 05-03 18:00: 00 Yes .5mg 0.5 mg, Oral, DAILY, First dose on 05/03/22 at 1200, Until Discontinu ed, Routine [facility] enoxaparin (LOVENOX) injection 40 mg 05-03 15:00: 00 Yes 40mg 40 mg, Subcutaneo us, DAILY, First dose on 05/03/22 at 0900, Until Discontinu ed, Routine [facility] tamsulosin (FLOMAX) capsule 0.4 mg 05-03 15:00: 00 Yes .4mg 0.4 mg, Oral, DAILY, First dose on 05/03/22 at 0900, Until Discontinu ed, Routine [facility] omeprazole (PRILOSEC) capsule 20 mg 05-03 15:00: 00 Yes 20mg 20 mg, Oral, DAILY, First dose on 05/03/22 at 0900, Until Discontinu ed, Routine [facility] hydroCHLORO thiazide (ESIDRIX) tablet 12.5 mg 05-03 15:00: 00 Yes 12.5mg 12.5 mg, Oral, DAILY, First dose on [facility] 05/03/22 at 0900, Until Discontinu ed [facility] aspirin EC tablet 81 mg 05-03 15:00: 00 Yes 81mg 81 mg, Oral, DAILY, First dose on [facility] 05/03/22 at 0900, Until Discontinu ed, Routine [facility] brimonidine (ALPHAGAN) 0.2 % ophthalmic solution 1 Drop 05-03 14:00: 00 Yes 1[drp] 1 Drop, Both Eyes, TID, First dose on [facility] 05/03/22 at 0800, Until Discontinu ed, Routine [facility] metroNIDAZO LE in NaCl (iso-os) (FLAGYL I.V.) RTU IV infusion 500 mg 05-03 06:15: 00 05-05 20:29 :12 No 500mg 500 mg, IV Infusion, Q8H ABX, 21 doses, First dose on [facility] 05/03/22 at 0015, Last dose on Thu05/09/22 at 1615, Administer over 60 Minutes, 100 mL
Reas on for Anti-Infec tive: Documented Infection& lt;br>Docu mented Infection Site: Abdominal< br>Duratio n of Therapy: 7 days [facility] ciprofloxac in in 5 % dextrose (CIPRO) piggyback 400 mg 05-03 06:15: 00 05-05 20:29 :12 No 400mg 400 mg, IV Piggyback, at 200 mL/hr Administer over 60 Minutes, Q12H ABX, First dose on [facility] 05/03/22 at 0015, Until Discontinu ed, Routine
Reason for Anti-Infec tive: Documented Infection< br>Docu mented Infection Site: Abdominal< br>Duratio n of Therapy: 7 days [facility] haloperidol lactate (HALDOL) injection 2.5 mg 05-03 05:53: 13 Yes 2.5mg 2.5 mg, Slow IV Push, PRN, 2 doses, Starting on Thu05/02/22 at 2353, Until Discontinu ed, Routine, Psychosis [facility] galantamine (REMINYL) tablet 8 mg 05-03 05:15: 00 Yes 8mg 8 mg, Oral, BID, First dose on Thu05/02/22 at 2315, Until Discontinu ed, Routine
Reason for non-formul ramsey use: PATIENT CURRENTLY TAKING NONFORMULA RY PRODUCT [facility] melatonin (MELATIN) tablet 9 mg 05-03 05:15: 00 Yes 9mg 9 mg, Oral, QHS, First dose (after last modificati on) on Thu05/02/22 at 2315, Until Discontinu ed [facility] risperiDONE (RISPERDAL) tablet 4 mg 05-03 05:15: 00 05-03 05:26 :23 No 4mg 4 mg, Oral, QPM, First dose (after last modificati on) on Thu05/02/22 at 2315, Until Discontinu ed, Routine [facility] ondansetron (ZOFRAN (PF)) injection 4 mg 05-03 04:53: 40 Yes 4mg 4 mg, Slow IV Push, Q6HPRN, Starting on Thu05/02/22 at 2253, Until Discontinu ed, Routine, Nausea and Vomiting (N/V) [facility] traMADoL (ULTRAM) tablet 50 mg 05-03 04:53: 31 05-05 04:52 :31 No 50mg 50 mg, Oral, Q8HPRN, Starting on Thu05/02/22 at 2253, Until Thu05/04/22 at 2252, Routine, Pain (scale 4-6) [facility] acetaminoph en (TYLENOL) tablet 650 mg 05-03 04:53: 29 Yes 650mg 650 mg, Oral, Q6HPRN, Starting on Thu05/02/22 at 2253, Until Discontinu ed, Routine, Pain (scale 1-3) [facility] iopamidol (ISOVUE 370-500 mL) injection 100 mL 05-03 02:45: 00 05-03 01:49 :00 No [id number] 100mL 100 mL, Intravenou s, ONCE, 1 dose, On Thu05/02/22 at 2045, Routine [facility] NaCl 0.9% (NS) bolus infusion 1,000 mL 05-03 01:45: 00 05-03 00:44 :00 No 1000mL at 999 mL/hr, 1,000 mL, IV Piggyback, ONCE, 1 dose, On Thu05/02/22 at 1945, STAT [facility] hydroCHLORO thiazide 12.5 mg capsule 05-02 22:53: 50 05-02 00:00 :00 No 12.5mg Take 12.5 mg by mouth daily. [facility] amoxicillin 500 mg tablet 04-18 00:00: 00 04-29 05:59 :00 No [id number] 500mg Take 1 tablet by mouth in the morning and 1 tablet in the evening. Do all this for 10 days. [facility] OMEPRAZOLE 20 mg capsule 10-24 00:00: 00 Yes [id number] Take 1 capsule by mouth once daily [facility] SIMVASTATIN 40 mg tablet 09-24 00:00: 00 01-29 00:00 :00 No [id number] TAKE 1 TABLET BY MOUTH ONCE DAILY AT BEDTIME [facility] galantamine 8 mg tablet 07-31 00:00: 00 Yes [id number] 8mg Take 1 tablet by mouth 2 (two) times daily. [facility] tamsulosin (FLOMAX) 0.4 mg 24 hr capsule 07-29 00:00: 00 08-27 00:00 :00 No [id number] .4mg Take 1 capsule by mouth daily. [facility] hydroCHLORO thiazide 12.5 mg capsule 2020-04 0 15:34: 14 Yes 12.5mg Take 12.5 mg by mouth daily. [facility] Vitamin E (E-PHEROL) 400 unit Tab 08-28 14:21: 44 Yes 1{tbl} Take 1 tablet by mouth daily. [facility] aspirin 81 mg EC tablet 08-28 14:21: 44 Yes 81mg Take 81 mg by mouth daily. [facility] latanoprost (XALATAN) 0.005 % ophthalmic drops 08-28 14:21: 44 Yes 1[drp] 1 Drop every evening. [facility] galantamine 12 mg tablet 08-28 00:00: 00 05-02 00:00 :00 No [id number] 12mg Take 1 tablet by mouth 2 (two) times daily. [facility] risperiDONE (RISPERDAL) 2 mg tablet 2019-04 00:00: 00 Yes [id number] 4mg Take 2 tablets by mouth every evening. [facility] brimonidine (ALPHAGAN) 0.2 % ophthalmic solution 2017-04 13:40: 32 Yes 1[drp] 1 Drop 3 (three) times daily. [facility] Fish Oil-DHA-EPA 1,200-144-2 16 mg Cap 2017-04 13:40: 32 Yes 1{capsu le} Take 1 capsule by mouth daily. [facility] Immunizations Ordered Immunization Name Filled Immunization Name Date Status Comments Source Remdesivir 2023-02-05 00:00:00 Completed [facility] Remdesivir 2023-02-04 00:00:00 Completed [facility] Remdesivir 2023-02-03 00:00:00 Completed Influenza High Dose 2021-12-27 00:00:00 Completed [facility] Influenza High Dose 2021-12-27 00:00:00 Completed [facility] Influenza High Dose 2021-12-27 00:00:00 Completed [facility] Influenza High Dose 2021-12-27 00:00:00 Completed [facility] Influenza High Dose 2021-12-27 00:00:00 Completed [facility] Influenza High Dose 2021-12-27 00:00:00 Completed [facility] Influenza High Dose 2021-12-27 00:00:00 Completed [facility] Influenza High Dose 2021-12-27 00:00:00 Completed [facility] Influenza High Dose 2021-12-27 00:00:00 Completed [facility] Influenza High Dose 2021-12-27 00:00:00 Completed [facility] Influenza High Dose 2021-12-27 00:00:00 Completed [facility] Influenza High Dose 2021-12-27 00:00:00 Completed [facility] Influenza High Dose 2021-12-27 00:00:00 Completed [facility] Influenza High Dose 2021-12-27 00:00:00 Completed [facility] Influenza High Dose 2021-12-27 00:00:00 Completed [facility] Influenza High Dose 2021-12-27 00:00:00 Completed [facility] Influenza High Dose 2021-12-27 00:00:00 Completed [facility] Influenza High Dose 2021-12-27 00:00:00 Completed [facility] Influenza High Dose 2021-12-27 00:00:00 Completed [facility] Influenza High Dose 2021-12-27 00:00:00 Completed [facility] Influenza High Dose 2021-12-27 00:00:00 Completed [facility] Influenza, High-Dose, Trivalent, PF (FLUZONE) 2021-12-27 00:00:00 Completed [facility] Influenza Virus Vaccine 2021-12-18 00:00:00 Completed [facility] Influenza Virus Vaccine 2021-12-18 00:00:00 Completed [facility] Influenza Virus Vaccine 2021-12-18 00:00:00 Completed [facility] Influenza Virus Vaccine 2021-12-18 00:00:00 Completed [facility] Influenza Virus Vaccine 2021-12-18 00:00:00 Completed [facility] Influenza Virus Vaccine 2021-12-18 00:00:00 Completed [facility] Influenza Virus Vaccine 2021-12-18 00:00:00 Completed [facility] Influenza Virus Vaccine 2021-12-18 00:00:00 Completed [facility] Influenza Virus Vaccine 2021-12-18 00:00:00 Completed [facility] Influenza Virus Vaccine 2021-12-18 00:00:00 Completed SARS-COV-2 COVID-19 VACCINE - (MODERNA) 2021-09-20 00:00:00 Completed [facility] SARS-COV-2 COVID-19 VACCINE - (MODERNA) 2021-09-20 00:00:00 Completed [facility] SARS-COV-2 COVID-19 VACCINE - (MODERNA) 2021-09-20 00:00:00 Completed [facility] SARS-COV-2 COVID-19 VACCINE - (MODERNA) 2021-09-20 00:00:00 Completed [facility] SARS-COV-2 COVID-19 VACCINE - (MODERNA) 2021-09-20 00:00:00 Completed [facility] SARS-COV-2 COVID-19 VACCINE - (MODERNA) 2021-09-20 00:00:00 Completed [facility] SARS-COV-2 COVID-19 VACCINE - (MODERNA) 2021-09-20 00:00:00 Completed [facility] SARS-COV-2 COVID-19 VACCINE - (MODERNA) 2021-09-20 00:00:00 Completed [facility] SARS-COV-2 COVID-19 VACCINE - (MODERNA) 2021-09-20 00:00:00 Completed [facility] SARS-COV-2 COVID-19 VACCINE - (MODERNA) 2021-09-20 00:00:00 Completed SARS-COV-2 COVID-19 VACCINE - (MODERNA) 2021-04-02 00:00:00 Completed [facility] SARS-COV-2 COVID-19 VACCINE - (MODERNA) 2021-04-02 00:00:00 Completed [facility] SARS-COV-2 COVID-19 VACCINE - (MODERNA) 2021-04-02 00:00:00 Completed [facility] SARS-COV-2 COVID-19 VACCINE - (MODERNA) 2021-04-02 00:00:00 Completed [facility] SARS-COV-2 COVID-19 VACCINE - (MODERNA) 2021-04-02 00:00:00 Completed [facility] SARS-COV-2 COVID-19 VACCINE - (MODERNA) 2021-04-02 00:00:00 Completed [facility] SARS-COV-2 COVID-19 VACCINE - (MODERNA) 2021-04-02 00:00:00 Completed [facility] SARS-COV-2 COVID-19 VACCINE - (MODERNA) 2021-04-02 00:00:00 Completed [facility] SARS-COV-2 COVID-19 VACCINE - (MODERNA) 2021-04-02 00:00:00 Completed [facility] SARS-COV-2 COVID-19 VACCINE - (MODERNA) 2021-04-02 00:00:00 Completed Influenza High Dose Quad 2020-12-27 00:00:00 Completed [facility] Influenza High Dose Quad 2020-12-27 00:00:00 [facility]pleted [facility] [facility] Influenza High Dose Quad 2020-12-27 00:00:00 Completed [facility] Influenza High Dose Quad 2020-12-27 00:00:00 Completed [facility] Influenza High Dose Quad 2020-12-27 00:00:00 Completed [facility] Influenza High Dose Quad 2020-12-27 00:00:00 Completed [facility] Influenza High Dose Quad 2020-12-27 00:00:00 Completed [facility] Influenza High Dose Quad 2020-12-27 00:00:00 Completed [facility] Influenza High Dose Quad 2020-12-27 00:00:00 Completed [facility] Influenza High Dose Quad 2020-12-27 00:00:00 Completed SARS-COV-2 COVID-19 MODERNA 12+ YRS VACCINE 2020-06-07 00:00:00 Completed [facility] SARS-COV-2 COVID-19 MODERNA 12+ YRS VACCINE 2020-06-07 00:00:00 Completed [facility] SARS-COV-2 COVID-19 MODERNA 12+ YRS VACCINE 2020-06-07 00:00:00 Completed [facility] SARS-COV-2 COVID-19 MODERNA 12+ YRS VACCINE 2020-06-07 00:00:00 Completed [facility] SARS-COV-2 COVID-19 MODERNA 12+ YRS VACCINE 2020-06-07 00:00:00 Completed [facility] SARS-COV-2 COVID-19 MODERNA 12+ YRS VACCINE 2020-06-07 00:00:00 Completed [facility] SARS-COV-2 COVID-19 MODERNA 12+ YRS VACCINE 2020-06-07 00:00:00 Completed [facility] SARS-COV-2 COVID-19 MODERNA 12+ YRS VACCINE 2020-06-07 00:00:00 Completed [facility] SARS-COV-2 COVID-19 MODERNA 12+ YRS VACCINE 2020-06-07 00:00:00 Completed [facility] SARS-COV-2 COVID-19 MODERNA 12+ YRS VACCINE 2020-06-07 00:00:00 Completed [facility] SARS-COV-2 COVID-19 MODERNA 12+ YRS VACCINE 2020-06-07 00:00:00 Completed [facility] SARS-COV-2 COVID-19 MODERNA 12+ YRS VACCINE 2020-06-07 00:00:00 Completed [facility] SARS-COV-2 COVID-19 MODERNA 12+ YRS VACCINE 2020-06-07 00:00:00 Completed [facility] SARS-COV-2 COVID-19 MODERNA 12+ YRS VACCINE 2020-06-07 00:00:00 Completed [facility] SARS-COV-2 COVID-19 MODERNA 12+ YRS VACCINE 2020-06-07 00:00:00 Completed [facility] SARS-COV-2 COVID-19 MODERNA 12+ YRS VACCINE 2020-06-07 00:00:00 Completed [facility] SARS-COV-2 COVID-19 MODERNA 12+ YRS VACCINE 2020-06-07 00:00:00 Completed [facility] SARS-COV-2 COVID-19 MODERNA 12+ YRS VACCINE 2020-06-07 00:00:00 Completed [facility] SARS-COV-2 COVID-19 MODERNA 12+ YRS VACCINE 2020-06-07 00:00:00 Completed [facility] SARS-COV-2 COVID-19 MODERNA 12+ YRS VACCINE 2020-06-07 00:00:00 Completed [facility] SARS-COV-2 COVID-19 MODERNA 12+ YRS VACCINE 2020-06-07 00:00:00 Completed [facility] SARS-COV-2 COVID-19 MODERNA 12+ YRS VACCINE 2020-06-07 00:00:00 Completed [facility] SARS-COV-2 COVID-19 MODERNA 12+ YRS VACCINE 2020-06-07 00:00:00 Completed [facility] SARS-COV-2 COVID-19 MODERNA 12+ YRS VACCINE 2020-06-07 00:00:00 Completed [facility] SARS-COV-2 COVID-19 MODERNA 12+ YRS VACCINE 2020-06-07 00:00:00 Completed [facility] SARS-COV-2 COVID-19 MODERNA 12+ YRS VACCINE 2020-05-10 00:00:00 Completed [facility] SARS-COV-2 COVID-19 MODERNA 12+ YRS VACCINE 2020-05-10 00:00:00 Completed [facility] SARS-COV-2 COVID-19 MODERNA 12+ YRS VACCINE 2020-05-10 00:00:00 Completed [facility] SARS-COV-2 COVID-19 MODERNA 12+ YRS VACCINE 2020-05-10 00:00:00 Completed [facility] SARS-COV-2 COVID-19 MODERNA 12+ YRS VACCINE 2020-05-10 00:00:00 Completed [facility] SARS-COV-2 COVID-19 MODERNA 12+ YRS VACCINE 2020-05-10 00:00:00 Completed [facility] SARS-COV-2 COVID-19 MODERNA 12+ YRS VACCINE 2020-05-10 00:00:00 Completed [facility] SARS-COV-2 COVID-19 MODERNA 12+ YRS VACCINE 2020-05-10 00:00:00 Completed [facility] SARS-COV-2 COVID-19 MODERNA 12+ YRS VACCINE 2020-05-10 00:00:00 Completed [facility] SARS-COV-2 COVID-19 MODERNA 12+ YRS VACCINE 2020-05-10 00:00:00 Completed [facility] SARS-COV-2 COVID-19 MODERNA 12+ YRS VACCINE 2020-05-10 00:00:00 Completed [facility] SARS-COV-2 COVID-19 MODERNA 12+ YRS VACCINE 2020-05-10 00:00:00 Completed [facility] SARS-COV-2 COVID-19 MODERNA 12+ YRS VACCINE 2020-05-10 00:00:00 Completed [facility] SARS-COV-2 COVID-19 MODERNA 12+ YRS VACCINE 2020-05-10 00:00:00 Completed [facility] SARS-COV-2 COVID-19 MODERNA 12+ YRS VACCINE 2020-05-10 00:00:00 Completed [facility] SARS-COV-2 COVID-19 MODERNA 12+ YRS VACCINE 2020-05-10 00:00:00 Completed [facility] SARS-COV-2 COVID-19 MODERNA 12+ YRS VACCINE 2020-05-10 00:00:00 Completed [facility] SARS-COV-2 COVID-19 MODERNA 12+ YRS VACCINE 2020-05-10 00:00:00 Completed [facility] SARS-COV-2 COVID-19 MODERNA 12+ YRS VACCINE 2020-05-10 00:00:00 Completed [facility] SARS-COV-2 COVID-19 MODERNA 12+ YRS VACCINE 2020-05-10 00:00:00 Completed [facility] SARS-COV-2 COVID-19 MODERNA 12+ YRS VACCINE 2020-05-10 00:00:00 Completed [facility] SARS-COV-2 COVID-19 MODERNA 12+ YRS VACCINE 2020-05-10 00:00:00 Completed [facility] SARS-COV-2 COVID-19 MODERNA 12+ YRS VACCINE 2020-05-10 00:00:00 Completed [facility] SARS-COV-2 COVID-19 MODERNA 12+ YRS VACCINE 2020-05-10 00:00:00 Completed [facility] SARS-COV-2 COVID-19 MODERNA 12+ YRS VACCINE 2020-05-10 00:00:00 Completed [facility] Influenza High Dose Quad 2019-12-09 00:00:00 Completed [facility] Influenza High Dose Quad 2019-12-09 00:00:00 Completed [facility] Influenza High Dose Quad 2019-12-09 00:00:00 Completed [facility] Influenza High Dose Quad 2019-12-09 00:00:00 Completed [facility] Influenza High Dose Quad 2019-12-09 00:00:00 Completed [facility] Influenza High Dose Quad 2019-12-09 00:00:00 Completed [facility] Influenza High Dose Quad 2019-12-09 00:00:00 Completed [facility] Influenza High Dose Quad 2019-12-09 00:00:00 Completed [facility] Influenza High Dose Quad 2019-12-09 00:00:00 Completed [facility] Influenza High Dose Quad 2019-12-09 00:00:00 Completed [facility] Influenza High Dose Quad 2019-12-09 00:00:00 Completed [facility] Influenza High Dose Quad 2019-12-09 00:00:00 Completed [facility] Influenza High Dose Quad 2019-12-09 00:00:00 Completed [facility] Influenza High Dose Quad 2019-12-09 00:00:00 Completed [facility] Influenza High Dose Quad 2019-12-09 00:00:00 Completed [facility] Influenza High Dose Quad 2019-12-09 00:00:00 Completed [facility] Influenza High Dose Quad 2019-12-09 00:00:00 Completed [facility] Influenza High Dose Quad 2019-12-09 00:00:00 Completed [facility] Influenza High Dose Quad 2019-12-09 00:00:00 Completed [facility] Influenza High Dose Quad 2019-12-09 00:00:00 Completed [facility] Influenza High Dose Quad 2019-12-09 00:00:00 Completed [facility] Influenza High Dose Quad 2019-12-09 00:00:00 Completed [facility] Influenza High Dose Quad 2019-12-09 00:00:00 Completed [facility] Influenza High Dose Quad 2019-12-09 00:00:00 Completed [facility] Influenza High Dose Quad 2019-12-09 00:00:00 Completed [facility] Influenza High Dose 2018-12-24 00:00:00 Completed [facility] Influenza High Dose 2018-12-24 00:00:00 Completed [facility] Influenza High Dose 2018-12-24 00:00:00 Completed [facility] Influenza High Dose 2018-12-24 00:00:00 Completed [facility] Influenza High Dose 2018-12-24 00:00:00 Completed [facility] Influenza High Dose 2018-12-24 00:00:00 Completed [facility] Influenza High Dose 2018-12-24 00:00:00 Completed [facility] Influenza High Dose 2018-12-24 00:00:00 Completed [facility] Influenza High Dose 2018-12-24 00:00:00 Completed [facility] Influenza High Dose 2018-12-24 00:00:00 Completed [facility] Influenza High Dose 2018-12-24 00:00:00 Completed [facility] Influenza High Dose 2018-12-24 00:00:00 Completed [facility] Influenza High Dose 2018-12-24 00:00:00 Completed [facility] Influenza High Dose 2018-12-24 00:00:00 Completed [facility] Influenza High Dose 2018-12-24 00:00:00 Completed [facility] Influenza High Dose 2018-12-24 00:00:00 Completed [facility] Influenza High Dose 2018-12-24 00:00:00 Completed [facility] Influenza High Dose 2018-12-24 00:00:00 Completed [facility] Influenza High Dose 2018-12-24 00:00:00 Completed [facility] Influenza High Dose 2018-12-24 00:00:00 Completed [facility] Influenza High Dose 2018-12-24 00:00:00 Completed [facility] Influenza High Dose 2018-12-24 00:00:00 Completed [facility] Influenza High Dose 2018-12-24 00:00:00 Completed [facility] Influenza High Dose 2018-12-24 00:00:00 Completed [facility] Influenza, High-Dose, Trivalent, PF (FLUZONE) 2018-12-24 00:00:00 Completed Influenza High Dose 2017-12-24 00:00:00 Completed [facility] Influenza High Dose 2017-12-24 00:00:00 Completed [facility] Influenza High Dose 2017-12-24 00:00:00 Completed [facility] Influenza High Dose 2017-12-24 00:00:00 Completed [facility] Influenza High Dose 2017-12-24 00:00:00 Completed [facility] Influenza High Dose 2017-12-24 00:00:00 Completed [facility] Influenza High Dose 2017-12-24 00:00:00 Completed [facility] Influenza High Dose 2017-12-24 00:00:00 Completed [facility] Influenza High Dose 2017-12-24 00:00:00 Completed [facility] Influenza High Dose 2017-12-24 00:00:00 Completed [facility] Influenza High Dose 2017-12-24 00:00:00 Completed [facility] Influenza High Dose 2017-12-24 00:00:00 Completed [facility] Influenza High Dose 2017-12-24 00:00:00 Completed [facility] Influenza High Dose 2017-12-24 00:00:00 Completed [facility] Influenza High Dose 2017-12-24 00:00:00 Completed [facility] Influenza High Dose 2017-12-24 00:00:00 Completed [facility] Influenza High Dose 2017-12-24 00:00:00 Completed [facility] Influenza High Dose 2017-12-24 00:00:00 Completed [facility] Influenza High Dose 2017-12-24 00:00:00 Completed [facility] Influenza High Dose 2017-12-24 00:00:00 Completed [facility] Influenza High Dose 2017-12-24 00:00:00 Completed [facility] Influenza High Dose 2017-12-24 00:00:00 Completed [facility] Influenza High Dose 2017-12-24 00:00:00 Completed [facility] Influenza High Dose 2017-12-24 00:00:00 Completed [facility] Influenza, High-Dose, Trivalent, PF (FLUZONE) 2017-12-24 00:00:00 Completed [facility] TDAP 2017-04-05 00:00:00 Completed [facility] TDAP 2017-04-05 00:00:00 Completed [facility] TDAP 2017-04-05 00:00:00 Completed [facility] TDAP 2017-04-05 00:00:00 Completed [facility] TDAP 2017-04-05 00:00:00 Completed [facility] TDAP 2017-04-05 00:00:00 Completed [facility] TDAP 2017-04-05 00:00:00 Completed [facility] TDAP 2017-04-05 00:00:00 Completed [facility] TDAP 2017-04-05 00:00:00 Completed [facility] TDAP 2017-04-05 00:00:00 Completed [facility] TDAP 2017-04-05 00:00:00 Completed [facility] TDAP 2017-04-05 00:00:00 Completed [facility] TDAP 2017-04-05 00:00:00 Completed [facility] TDAP 2017-04-05 00:00:00 Completed [facility] TDAP 2017-04-05 00:00:00 Completed [facility] TDAP 2017-04-05 00:00:00 Completed [facility] TDAP 2017-04-05 00:00:00 Completed [facility] TDAP 2017-04-05 00:00:00 Completed [facility] TDAP 2017-04-05 00:00:00 Completed [facility] TDAP 2017-04-05 00:00:00 Completed [facility] TDAP 2017-04-05 00:00:00 Completed [facility] TDAP 2017-04-05 00:00:00 Completed [facility] TDAP 2017-04-05 00:00:00 Completed [facility] TDAP 2017-04-05 00:00:00 Completed [facility] TDAP 2017-04-05 00:00:00 Completed [facility] TDAP Unknown Completed [facility] Influenza High Dose Unknown Completed [facility] SARS-COV-2 COVID-19 MODERNA 12+ YRS VACCINE Unknown Completed [facility] Influenza High Dose Quad Unknown Completed [facility] Influenza Virus Vaccine Unknown Completed [facility] TDAP Unknown Completed [facility] Influenza High Dose Unknown Completed [facility] SARS-COV-2 COVID-19 MODERNA 12+ YRS VACCINE Unknown Completed [facility] Influenza High Dose Quad Unknown Completed [facility] Influenza Virus Vaccine Unknown Completed [facility] TDAP Unknown Completed [facility] Influenza High Dose Unknown Completed [facility] SARS-COV-2 COVID-19 MODERNA 12+ YRS VACCINE Unknown Completed [facility] Influenza High Dose Quad Unknown Completed [facility] Influenza Virus Vaccine Unknown Completed [facility] TDAP Unknown Completed [facility] Influenza High Dose Unknown Completed [facility] SARS-COV-2 COVID-19 MODERNA 12+ YRS VACCINE Unknown Completed [facility] Influenza High Dose Quad Unknown Completed [facility] Influenza Virus Vaccine Unknown Completed [facility] Remdesivir Unknown Completed [facility] Rem[facility] TDAP Unknown Completed [facility] Influenza High Dose Unknown Completed [facility] SARS-COV-2 COVID-19 MODERNA 12+ YRS VACCINE Unknown Completed [facility] Influenza High Dose Quad Unknown Completed [facility] Influenza Virus Vaccine Unknown Completed [facility] Remdesivir Unknown [facility] Remdesivir Unknown Com[facility] TDAP Unknown Completed [facility] Influenza High Dose Unknown Completed [facility] SARS-COV-2 COVID-19 MODERNA 12+ YRS VACCINE Unknown Completed [facility] Influenza High Dose Quad Unknown Completed [facility] Influenza Virus Vaccine Unknown Completed [facility] Remdesivir Unknown Com[facility] Remdesivir Unknown Completed [facility] TDAP Unknown Completed [facility] Influenza High Dose Unknown Completed [facility] SARS-COV-2 COVID-19 MODERNA 12+ YRS VACCINE Unknown Completed [facility] Influenza High Dose Quad Unknown Completed [facility] Influenza Virus Vaccine Unknown Completed [facility] Remdesivir Unknown Completed [facility] Remdesivir Unknown Completed [facility] TDAP Unknown Completed [facility] Influenza, High-Dose, Trivalent, PF (FLUZONE) Unknown Completed [facility] SARS-COV-2 COVID-19 VACCINE - (MODERNA) Unknown Completed [facility] Influenza High Dose Quad Unknown Completed [facility] Influenza Virus Vaccine Unknown Completed [facility] Remdesivir Unknown Completed [facility] Remdesivir Unknown Completed [facility] Vital Signs Vital Name Observation Time Observation Value Comments S ource Systolic blood pressure 2023-12-31 06:44:00 128 mm[Hg] [facility] Diastolic blood pressure 2023-12-31 06:44:00 72 mm[Hg] [facility] Heart rate 2023-12-31 06:44:00 82 /min Un[facility] Body temperature 2023-12-31 06:44:00 36.67 Nita [facility] Respiratory rate 2023-12-31 06:44:00 16 /min [facility] Oxygen saturation in Arterial blood by Pulse oximetry 2023-12-31 06:44:00 100 /min [facility] Body height 2023-12-31 02:28:00 177.8 cm [facility] Body weight 2023-12-31 02:28:00 82.101 kg [facility] BMI 2023-12-31 02:28:00 25.97 kg/m2 [facility] Systolic blood pressure 2023-03-02 01:30:00 96 mm[Hg] [facility] Diastolic blood pressure 2023-03-02 01:30:00 52 mm[Hg] [facility] Heart rate 2023-03-02 01:30:00 68 /min Unive [facility] Body temperature 2023-03-02 01:30:00 36.11 N[place] [facility] Respiratory rate 2023-03-02 01:30:00 8 /min [facility] Oxygen saturation in Arterial blood by Pulse oximetry 2023-03-02 01:30:00 98 /min [facility] Body height 2023 21:02:00 182.9 cm [facility] Body weight 2023 21:02:00 74.39 kg [facility] BMI 2023 21:02:00 22.24 kg/m2 [facility] Systolic blood pressure 2023-02-24 21:44:00 99 mm[Hg] [facility] Diastolic blood pressure 2023-02-24 21:44:00 55 mm[Hg] [facility] Heart rate 2023-02-24 21:44:00 75 /min Un[facility] Body temperature 2023-02-24 21:44:00 36.78 [place] [facility] Respiratory rate 2023-02-24 21:44:00 16 /min [facility] Body height 2023-02-24 21:44:00 182.9 cm [facility] Body weight 2023-02-24 21:44:00 74.39 kg [facility] BMI 2023-02-24 21:44:00 22.24 kg/m2 [facility] Oxygen saturation in Arterial blood by Pulse oximetry 2023-02-24 21:44:00 98 /min [facility] Systolic blood pressure 2023-02-06 16:00:00 109 mm[Hg] [facility] Diastolic blood pressure 2023-02-06 16:00:00 75 mm[Hg] [facility] Heart [facility] 2023-02-06 16:00:00 80 [facility] Body temperature 2023-02-06 16:00:00 36.28 N[place] [facility] Respiratory rate 2023-02-06 16:00:00 17 /min [facility] Oxygen saturation in Arterial blood by Pulse oximetry 2023-02-06 16:00:00 96 /min [facility] Body weight 2023-02-06 08:22:00 74.481 kg [facility] BMI 2023-02-06 08:22:00 22.27 kg/m2 [facility] Body height 2023-02-02 21:14:00 182.9 cm [facility] Systolic blood pressure 2023-01-29 16:38:00 108 mm[Hg] [facility] Diastolic blood pressure 2023-01-29 16:38:00 48 mm[Hg] [facility] Heart rate 2023-01-29 16:38:00 66 /min [facility] Body temperature 2023-01-29 16:38:00 37.06 N[place] [facility] Oxygen saturation in Arterial blood by Pulse oximetry 2023-01-29 16:38:00 95 /min [facility] Respiratory rate 2023-01-29 09:17:00 16 /min [facility] Body weight 2023-01-29 09:17:00 73.982 kg [facility] BMI 2023-01-29 09:17:00 22.12 kg/m2 [facility] Body height 2023-01-25 23:25:00 182.9 cm [facility] Systolic blood pressure 2023-01-20 22:00:00 123 mm[Hg] [facility] Diastolic blood pressure 2023-01-20 22:00:00 80 mm[Hg] [facility] Heart rate 2023-01-20 22:00:00 82 /min [facility] Body temperature 2023-01-20 22:00:00 36.89 [facility] [facility] Respiratory rate 2023-01-20 22:00:00 16 /min [facility] Oxygen saturation in Arterial blood by Pulse oximetry 2023-01-20 22:00:00 97 /min [facility] Body height 2023-01-20 19:16:00 167.6 cm [facility] Body weight 2023-01-20 19:16:00 80 kg [facility] BMI 2023-01-20 19:16:00 28.47 kg/m2 [facility] Systolic blood pressure 2022-12-01 16:54:00 125 mm[Hg] [facility] Diastolic blood pressure 2022-12-01 16:54:00 79 mm[Hg] [facility] Heart rate 2022-12-01 16:54:00 94 [facility] Body temperature 2022-12-01 16:54:00 36.56 Nita [facility] Respiratory rate 2022-12-01 16:54:00 18 /min [facility] Oxygen saturation in Arterial blood by Pulse oximetry 2022-12-01 16:54:00 94 /min [facility] Body weight 2022-12-01 09:25:00 70.988 kg [facility] BMI 2022-12-01 09:25:00 21.23 kg/m2 [facility] Body height 2022-11-30 01:41:00 182.9 cm [facility] Systolic blood pressure 2022-11-26 22:00:00 126 mm[Hg] [facility] Diastolic blood pressure 2022-11-26 22:00:00 64 mm[Hg] [facility] Heart rate 2022-11-26 22:00:00 80 /min Unive [facility] Oxygen saturation in Arterial blood by Pulse oximetry 2022-11-26 22:00:00 97 /min [facility] Respiratory rate 2022-11-26 21:00:00 18 /min [facility] Body temperature 2022-11-26 19:03:00 36.5 Nita [facility] Body height 2022-11-26 19:03:00 188 cm [facility] Body weight 2022-11-26 19:03:00 95.255 kg [facility] BMI 2022-11-26 19:03:00 26.96 kg/m2 [facility] Body temperature 2022-10-30 17:00:00 36.94 Nita [facility] Heart rate 2022-10-30 16:32:00 93 /min Unive [facility] Respiratory rate 2022-10-30 16:32:00 18 /min [facility] Oxygen saturation in Arterial blood by Pulse oximetry 2022-10-30 16:32:00 97 /min [facility] Systolic blood pressure 2022-10-30 16:00:00 114 mm[Hg] [facility] Diastolic blood pressure 2022-10-30 16:00:00 87 mm[Hg] [facility] Body weight 2022-10-29 21:00:00 70.988 kg [facility] BMI 2022-10-29 21:00:00 22.46 kg/m2 [facility] Body height 2022-10-28 03:11:00 177.8 cm [facility] Systolic blood pressure 2022-08-27 19:48:00 97 mm[Hg] [facility] Diastolic blood pressure 2022-08-27 19:48:00 66 mm[Hg] [facility] Heart rate 2022-08-27 19:48:00 78 /min Unive [facility] Respiratory rate 2022-08-27 19:48:00 18 /min [facility] Body height 2022-08-27 19:48:00 182.9 cm [facility] Body weight 2022-08-27 19:48:00 70.761 kg [facility] BMI 2022-08-27 19:48:00 21.16 kg/m2 [facility] Systolic blood pressure 2022-07-26 16:20:00 103 mm[Hg] [facility] Diastolic blood pressure 2022-07-26 16:20:00 67 mm[Hg] [facility] Heart rate 2022-07-26 16:20:00 94 /min Unive [facility] Body temperature 2022-07-26 16:20:00 36.94 Nita [facility] Respiratory rate 2022-07-26 16:20:00 20 /min [facility] Oxygen saturation in Arterial blood by Pulse oximetry 2022-07-26 16:20:00 94 /min [facility] Body weight 2022-07-26 09:30:00 70.988 kg [facility] BMI 2022-07-26 09:30:00 21.23 kg/m2 [facility] Body height 2022-07-21 02:02:00 182.9 cm [facility] Systolic blood pressure 2022-07-18 19:48:00 111 mm[Hg] [facility] Diastolic blood pressure 2022-07-18 19:48:00 61 mm[Hg] [facility] Heart rate 2022-07-18 19:48:00 69 /min Unive [facility] Body temperature 2022-07-18 19:48:00 36.44 Nita [facility] Respiratory rate 2022-07-18 19:48:00 18 /min [facility] Body height 2022-07-18 19:48:00 185.4 cm [facility] Body weight 2022-07-18 19:48:00 74.39 kg [facility] BMI 2022-07-18 19:48:00 21.64 kg/m2 [facility] Oxygen saturation in Arterial blood by Pulse oximetry 2022-07-18 19:48:00 100 /min [facility] Systolic blood pressure 2022-06-10 20:00:00 140 mm[Hg] [facility] Diastolic blood pressure 2022-06-10 20:00:00 56 mm[Hg] [facility] Heart rate 2022-06-10 20:00:00 81 /min Unive [facility] Body temperature 2022-06-10 20:00:00 36.89 Nita [facility] Respiratory rate 2022-06-10 20:00:00 14 /min [facility] Oxygen saturation in Arterial blood by Pulse oximetry 2022-06-10 20:00:00 100 /min [facility] Body height 2022-06-10 16:20:00 182.9 cm [facility] Body weight 2022-06-10 16:20:00 74.39 kg [facility] BMI 2022-06-10 16:20:00 22.24 kg/m2 [facility] Systolic blood pressure 2022-05-28 17:22:00 112 mm[Hg] [facility] Diastolic blood pressure 2022-05-28 17:22:00 66 mm[Hg] [facility] Heart rate 2022-05-28 17:22:00 83 /min Unive [facility] Body temperature 2022-05-28 17:22:00 36.28 Nita [facility] Respiratory rate 2022-05-28 17:22:00 18 /min [facility] Oxygen saturation in Arterial blood by Pulse oximetry 2022-05-28 17:22:00 98 /min [facility] Body weight 2022-05-28 10:02:00 74.481 kg [facility] BMI 2022-05-28 10:02:00 22.27 kg/m2 [facility] Body height 2022-05-27 04:42:00 182.9 cm [facility] Systolic blood pressure 2022-05-05 22:34:00 102 mm[Hg] [facility] Diastolic blood pressure 2022-05-05 22:34:00 58 mm[Hg] [facility] Heart rate 2022-05-05 22:34:00 79 /min Unive [facility] Body temperature 2022-05-05 22:34:00 36.22 Nita [facility] Respiratory rate 2022-05-05 22:34:00 18 /min [facility] Oxygen saturation in Arterial blood by Pulse oximetry 2022-05-05 22:34:00 94 /min [facility] Body weight 2022-05-05 10:07:00 73.982 kg [facility] BMI 2022-05-05 10:07:00 20.94 kg/m2 [facility] Body height 2022-05-03 04:50:00 188 cm [facility] Systolic blood pressure 2021-12-05 19:40:00 115 mm[Hg] [facility] Diastolic blood pressure 2021-12-05 19:40:00 73 mm[Hg] [facility] Heart rate 2021-12-05 19:40:00 59 /[facility] 2021-12-05 19:40:00 77.701 kg [facility] BMI 2021-12-05 19:40:00 23.89 kg/m2 [facility] Oxygen saturation in Arterial blood by Pulse oximetry 2021-12-05 19:40:00 97 /min [facility] Procedures Procedure Date / Time Performed Performing Clinician Source CT ABDOMEN PELVIS W CONTRAST 2023-12-31 04:45:00 Isaura Beck [facility] CT CHEST PULMONARY ANGIOGRAM 2023-12-31 04:45:00 Isaura Beck [facility] MAGNESIUM 2023-12-31 03:14:00 Isaura Beck [facility] COMP. METABOLIC PANEL ([id number]) 2023-12-31 03:14:00 Isaura Beck [facility] CBC WITH DIFF 2023-12-31 03:14:00 Isaura Beck [facility] URINALYSIS 2023-12-31 03:14:00 Isaura Beck [facility] XR ANKLE 3+ VW RIGHT 2023 23:02:00 Joseph Melendez [facility] COMP. METABOLIC PANEL ([id number]) 2023 21:37:00 Joseph Melendez [facility] CBC WITH DIFF 2023 21:37:00 Joseph Melendez [facility] BASIC METABOLIC PANEL (NA, K, CL, CO2, GLUCOSE, BUN, CREATININE, CA) 2023-02-24 21:45:00 Nicanor Lentz [facility] AUTHORIZATION FOR RELEASE OF PHI 2023-02-20 06:01:00 Doctor Unassigned, [place] [facility] BASIC METABOLIC PANEL (NA, K, CL, CO2, GLUCOSE, BUN, CREATININE, CA) 2023-02-05 08:20:00 Andreina Childs [facility] CBC WITH DIFF 2023-02-05 08:20:00 Andreina Childs [facility] BASIC METABOLIC PANEL (NA, K, CL, CO2, GLUCOSE, BUN, CREATININE, CA) 2023-02-04 09:27:00 Andreina Childs Alysa [facility] CBC WITH DIFF 2023-02-04 09:27:00 Amadeo [facility] JESSE AURIS SURVEILLANCE BY PCR (INFECTION CONTROL PURPOSES) 2023-02-03 21:48:00 Andreina Childs [facility] URINALYSIS 2023-02-03 14:42:00 Josefina Dasilva [facility] CBC WITH DIFF 2023-02-03 11:25:00 [facility] BASIC METABOLIC PANEL (NA, K, CL, CO2, GLUCOSE, BUN, CREATININE, CA) 2023-02-03 10:19:00 Marlena Rios [facility] PROCALCITONIN 2023-02-03 10:19:00 Josefina Dasilva [facility] XR CHEST 1 VW 2023-02-02 19:00:15 Andreina Uriarte [facility] COMP. METABOLIC PANEL ([id number]) 2023-02-02 16:53:00 Andreina Uriarte [facility] CBC WITH DIFF 2023-02-02 16:53:00 Andreina Uriarte [facility] RAPID INFLUENZA A/B 2023-02-02 16:53:00 Andreina Uriarte [facility] COVID-19 (ID NOW RAPID TESTING) 2023-02-02 16:53:00 Andreina Uriarte [facility] LAB ONLY COVID INTERPRETATION 2023-02-02 16:53:00 Andreina Uriarte [facility] XR CHEST 1 VW 2023-01-28 18:01:19 Marlena Rios [facility] BASIC METABOLIC PANEL (NA, K, CL, CO2, GLUCOSE, BUN, CREATININE, CA) 2023-01-27 10:13:00 Andreina Childs [facility] VANCOMYCIN TROUGH 2023-01-27 10:13:00 Angelica Braga [facility] CBC WITH DIFF 2023-01-27 10:13:00 Andreina Childs Alysa [facility] WOUND/ASPIRATE OR ABSCESS CULTURE 2023-01-26 18:02:00 Jeanine [facility] WOUND CULTURE 2023-01-26 18:02:00 Keerthi Solorzano [facility] MRSA / MSSA SCREEN BY ARNOLD SALDANA 2023-01-25 23:19:00 Marques Hines [facility] CBC WITH DIFF 2023-01-25 20:41:00 Virginia Soni [facility] LACTIC ACID WHOLE BLOOD 2023-01-25 20:41:00 Virginia Soni [facility] BLOOD CULTURE SCREEN 2023-01-25 20:41:00 Lavon Soni [facility] COMP. METABOLIC PANEL ([id number]) 2023-01-25 20:41:00 Virginia Soni [facility] SEDIMENTATION RATE 2023-01-25 20:41:00 Marco A Soni [facility] XR ANKLE 3+ VW RIGHT 2023-01-25 20:38:12 Lavon Soni [facility] CONSENT/REFUSAL FOR DIAGNOSIS AND TREATMENT 2023-01-25 20:04:39 Doctor Unassigned, [place] [facility] EMERGENCY DEPARTMENT DOCUMENTS 2023-01-25 05:01:00 Doctor Unassigned, [place] [facility] RAPID STREP SCREEN FOR GROUP A 2023-01-20 21:38:00 Virginia Soni [facility] CT HEAD WO CONTRAST 2023-01-20 19:55:01 Hali Soni ra [facility] XR CHEST 1 VW 2023-01-20 19:54:03 Virginia Soni U [facility] MAGNESIUM 2023-01-20 19:24:00 Virginia Soni [facility] TROPONIN I 2023-01-20 19:24:00 Virginia Soni [facility] COMP. METABOLIC PANEL ([id number]) 2023-01-20 19:24:00 Virginia Soni [facility] CBC WITH DIFF 2023-01-20 19:24:00 Virginia Soni [facility] RAPID INFLUENZA A/B 2023-01-20 19:24:00 Hali Soni ra [facility] N-TERMINAL PRO-BNP 2023-01-20 19:24:00 Marco A Soni [facility] COVID-19 (ID NOW RAPID TESTING) 2023-01-20 19:24:00 Virginia Soni [facility] BASIC METABOLIC PANEL (NA, K, CL, CO2, GLUCOSE, BUN, CREATININE, CA) 2022-12-01 11:21:00 Andreina Childs [facility] XR ANKLE 3+ VW RIGHT 2022-11-30 01:09:00 Juno Verdin [facility] XR KUB 2022-11-29 23:28:59 Juno Verdin [facility] COMP. METABOLIC PANEL ([id number]) 2022-11-29 23:10:00 Juno Verdin [facility] CBC WITH DIFF 2022-11-29 23:10:00 Juno Verdin [facility] CT ABDOMEN PELVIS W CONTRAST 2022-11-26 21:46:20 Frankie [facility] COMP. METABOLIC PANEL ([id number]) 2022-11-26 19:54:00 Frankie Olman [facility] CBC WITH DIFF 2022-11-26 19:54:00 Frankie Olman [facility] ASSIGNMENT OF BENEFITS 2022-11-26 19:35:58 Docto r Unassigned, [place] [facility] CONSENT/REFUSAL FOR DIAGNOSIS AND TREATMENT 2022-11-26 19:35:18 Doctor Unassigned, [place] [facility] XR CHEST 1 2022-11-26 19:29:39 Frankie [facility] CONSENT/REFUSAL FOR DIAGNOSIS AND TREATMENT 2022-11-26 19:13:37 Doctor Unassigned, [place] [facility] CONSENT/REFUSAL FOR DIAGNOSIS AND TREATMENT 2022-11-26 19:09:05 Doctor Unassigned, [place] [facility] EXTERNAL PROVIDER - ADC CARDIOLOGY 2022-11-21 05:01:00 Doctor Unassigned, [place] [facility] XR CHEST 1 2022-10-30 11:30:00 Aziza Echevarria [facility] MAGNESIUM 2022-10-30 09:09:00 [facility]OLIC PANEL (NA, K, CL, CO2, GLUCOSE, BUN, CREATININE, CA) 2022-10-30 09:09:00 Wale [facility] CBC WITH DIFF 2022-10-30 09:09:00 Aziza Echevarria [facility] POCT GLUCOSE (AUTOMATED) 2022-10-29 13:16:00 Chaz Roberts [facility] MAGNESIUM 2022-10-29 07:50:00 Wale [facility] BASIC METABOLIC PANEL (NA, K, CL, CO2, GLUCOSE, BUN, CREATININE, CA) 2022-10-29 07:50:00 Wale [facility] CBC WITH DIFF 2022-10-29 07:50:00 Aziza Echevarria [facility] POCT GLUCOSE (AUTOMATED) 2022-10-29 01:59:00 Harvinder Chaz [facility] POCT GLUCOSE (AUTOMATED) 2022-10-28 21:26:00 Harvinder [facility] POCT GLUCOSE (AUTOMATED) 2022-10-28 16:56:00 Harvinder [facility] LEGIONELLA AND STREPTOCOCCUS PNEUMONIAE URINARY ANTIGENS 2022-10-28 16:05:00 Harvinder [facility] JESSE AURIS SURVEILLANCE BY PCR (INFECTION CONTROL PURPOSES) 2022-10-28 15:51:00 Lydia Tristan [facility] BASIC METABOLIC PANEL (NA, K, CL, CO2, GLUCOSE, BUN, CREATININE, CA) 2022-10-28 15:45:00 Wale [facility] CBC WITH DIFF 2022-10-28 15:45:00 Aziza Echevarria [facility] LACTIC ACID WHOLE BLOOD 2022-10-28 15:32:00 Abu Lydia Sherman [facility] PROCALCITONIN 2022-10-28 15:32:00 Lydia Tristan [facility] POCT GLUCOSE (AUTOMATED) 2022-10-28 13:54:00 Chaz Roberts [facility] BLOOD CULTURE SCREEN 2022-10-28 06:55:00 Lashon Beck i [facility] XR CHEST 1 VW 2022-10-28 04:21:00 Marcie Nickerson [facility] THROAT CULTURE 2022-10-28 03:42:00 Krishan [facility] RAPID STREP SCREEN FOR GROUP A 2022-10-28 03:42:00 Krishan [facility] COVID-19 (ID NOW RAPID TESTING) 2022-10-28 03:42:00 Krishan [facility] LAB ONLY COVID INTERPRETATION 2022-10-28 03:42:00 Marcie Nickerson [facility] MAGNESIUM 2022-10-28 03:26:00 Chaz Roberts [facility] TROPONIN I 2022-10-28 03:26:00 Marcie Nickerson Un [facility] COMP. METABOLIC PANEL ([id number]) 2022-10-28 03:26:00 Marcie Nickerson [facility] CBC WITH DIFF 2022-10-28 03:26:00 [facility] GLYCOS[facility] HEMOGLOBIN (A1C) 2022-10-28 03:26:00 Lydia Tristan [facility] URINALYSIS 2022-10-28 03:26:00 Marcie Nickerson [facility] LACTIC ACID WHOLE BLOOD 2022-10-28 03:26:00 Marcie Nickerson [facility] ASSIGNMENT OF BENEFITS 2022-10-28 03:23:04 Docto r Unassigned, [place] [facility] NOTICE OF PRIVACY PRACTICES 2022-10-28 03:22:29 Doctor Unassigned, [place] [facility] CONSENT/REFUSAL FOR DIAGNOSIS AND TREATMENT 2022-10-28 03:22:10 Doctor Unassigned, [place] [facility] HB ECG ROUTINE & RHYTHM STRIP 2022-10-28 03:09:11 Marcie Nickerson [facility] CT THORAX W CONTRAST 2022-07-25 18:16:16 Juancarlos Rios i [facility] RAPID INFLUENZA A/B 2022-07-25 17:15:00 Marlena Rios [facility] COVID-19 (ID NOW RAPID TESTING) 2022-07-25 17:15:00 Marlena Rios [facility] BASIC METABOLIC PANEL (NA, K, CL, CO2, GLUCOSE, BUN, CREATININE, CA) 2022-07-25 09:46:00 Andreina Childs [facility] CBC WITH DIFF 2022-07-25 09:46:00 Andreina Childs [facility] XR CHEST 1 VW 2022-07-25 00:09:00 Andreina Childs [facility] BASIC METABOLIC PANEL (NA, K, CL, CO2, GLUCOSE, BUN, CREATININE, CA) 2022-07-24 09:31:00 Amadeo Andreina [facility] CBC WITH DIFF 2022-07-24 09:31:00 Andreina Childs [facility] MRSA / MSSA SCREEN BY PCRARNOLD 2022-07-23 21:06:00 Andreina Childs [facility] CBC WITH DIFF 2022-07-22 10:41:00 Leroy Soni [facility] BASIC METABOLIC PANEL (NA, K, CL, CO2, GLUCOSE, BUN, CREATININE, CA) 2022-07-22 09:09:00 Leroy Soni [facility] WOUND/ASPIRATE OR ABSCESS CULTURE 2022-07-21 16:22:00 Ailrio Locke [facility] WOUND CULTURE 2022-07-21 16:22:00 Alirio Locke [facility] XR ANKLE <3 VW RIGHT 2022-07-21 12:18:38 Singer [facility] BLOOD CULTURE SCREEN 2022-07-21 02:26:00 Singer [facility] COMP. METABOLIC PANEL ([id number]) 2022-07-21 02:26:00 Singer [facility] SEDIMENTATION RATE 2022-07-21 02:26:00 Singer [facility] CBC WITH DIFF 2022-07-21 02:26:00 Singer [facility] LACTIC ACID WHOLE BLOOD 2022-07-21 02:25:00 , Tatyana [facility] LACTIC ACID WHOLE BLOOD 2022-07-18 20:14:00 , Tatyana [facility] COMP. METABOLIC PANEL ([id number]) 2022-07-18 20:12:00 Singer [facility] SEDIMENTATION RATE 2022-07-18 20:12:00 Singer [facility] CBC WITH DIFF 2022-07-18 20:12:00 Singer [facility] CT ABDOMEN PELVIS W CONTRAST 2022-06-10 18:56:57 Joseph Melendez [facility] XR CHEST 1 VW 2022-06-10 18:39:57 Joseph Melendez [facility] URINALYSIS 2022-06-10 18:30:00 Joseph Melendez [facility] ASSIGNMENT OF BENEFITS 2022-06-10 17:41:23 Docto r Unassigned, [place] [facility] CONSENT/REFUSAL FOR DIAGNOSIS AND TREATMENT 2022-06-10 17:39:47 Doctor Unassigned, [place] [facility] LIPASE 2022-06-10 17:15:00 [facility] MAGNESIUM 2022-06-10 17:15:00 [facility] TROPONIN I 2022-06-10 17:15:00 [facility] COMP. METABOLIC PANEL ([id number]) 2022-06-10 17:15:00 Joseph Melendez Veronica [facility] CBC WITH DIFF 2022-06-10 17:15:00 Joseph Melendez [facility] EXTERNAL PROVIDER RECORDS 2022-06-03 06:01:00 Do ctor Unassigned, [place] [facility] BASIC METABOLIC PANEL (NA, K, CL, CO2, GLUCOSE, BUN, CREATININE, CA) 2022-05-28 10:01:00 Andreina Childs [facility] CBC WITH DIFF 2022-05-28 10:01:00 Andreina Childs [facility] BASIC METABOLIC PANEL (NA, K, CL, CO2, GLUCOSE, BUN, CREATININE, CA) 2022-05-27 10:03:00 Josefina Dasilva [facility] CBC WITH DIFF 2022-05-27 10:03:00 [facility] CT ABDOMEN PELVIS WO CONTRAST 2022-05-27 00:19:06 Marcie Nickerson [facility] XR CHEST 1 VW 2022-05-27 00:18:27 Marcie Nickerson [facility] COMP. METABOLIC PANEL ([id number]) 2022-05-26 23:52:00 Marcie Nickerson [facility] CBC WITH DIFF 2022-05-26 22:55:00 Marcie Nickerson [facility] COVID-19 (ID NOW RAPID TESTING) 2022-05-26 22:41:00 Marcie Nickerson [facility] LAB ONLY COVID INTERPRETATION 2022-05-26 22:41:00 Marcie Nickerson [facility] BASIC METABOLIC PANEL (NA, K, CL, CO2, GLUCOSE, BUN, CREATININE, CA) 2022-05-05 10:38:00 Leroy Soni [facility] CBC WITH DIFF 2022-05-05 10:38:00 Leroy Soni [facility] FECES CULTURE 2022-05-03 15:27:00 Brown [facility] OCCULT (GUAIAC) BLOOD 2022-05-03 15:27:00 Brown [facility] CLOSTRIDIUM DIFFICILE TOXIN 2022-05-03 15:25:00 Singer [facility] BASIC METABOLIC PANEL (NA, K, CL, CO2, GLUCOSE, BUN, CREATININE, CA) 2022-05-03 11:51:00 Brown [facility] CBC WITH DIFF 2022-05-03 11:51:00 Brown [facility] CT ABDOMEN PELVIS W CONTRAST 2022-05-03 01:40:00 Singer [facility] COMP. METABOLIC PANEL ([id number]) 2022-05-03 00:41:00 Singer [facility] CBC WITH DIFF 2022-05-03 00:41:00 Singer [facility] Encounters Start Date/Time End Date/Time Encounter Type Admission Type Attending Clinicians Care Facility Care Department Encounter ID Source 2024-07-12 00:00:00 2024-07-12 15:27:00 Telephone Dougie Giles [facility] [id number] [facility] 2024-03-11 12:28:00 2024-03-11 15:13:00 Emergency X MONICA RYAN [facility] ERT [id number] [facility] 2023-12-30 21:24:00 2023-12-31 02:06:00 Emergency X ISAURA BECK WAKILI [facility] ERT [id number] [facility] 2023-12-30 21:24:00 2023-12-31 02:06:00 Emergency Isaura Beck S [facility] [id number] [facility] 2023-09-02 13:45:00 2023-09-02 13:45:00 Outpatient NATALIE SALTER [facility] [id number] [facility] 2023 14:51:00 2023 20:06:00 Emergency X Joseph MELENDEZ [facility] E[facility] [id number] [facility] 2023 14:51:00 2023 20:06:00 Emergency Joseph Melendez [facility] 1..840.114 350.1.13.10 4.2.7.2.686 [id number] 084 [id number] [facility] 2023-02-24 15:31:00 2023-02-24 17:09:00 Emergency X LENTZ NICANOR [facility] ERT [id number] [facility] 2023-02-24 15:31:00 2023-02-24 17:09:00 Emergency Nicanor Lentz [facility] 1..840.114 350.1.13.10 4.2.7.2.686 [id number] [facility] 2023-02-09 00:00:00 2023-02-09 00:00:00 Transition of Care Shira Mead 1.2840.114 350.1.13.10 4.2.7.2.686 [id number] [facility] 2023-02-02 11:13:00 2023-02-06 14:30:00 Inpatient MARQUES ABDALLA [facility] [id number] [facility] 2023-02-02 11:13:00 2023-02-06 14:30:00 Hospital Encounter Andreina Uriarte, Marques Talamantes [facility] 1.2840.114 350.1.13.10 4.2.7.2.686 [id number] [id number] [facility] 2023-01-25 14:59:00 2023-01-29 14:45:00 Outpatient Kevin HINESMARQUES [facility] [id number] [facility] 2023-01-25 14:59:00 2023-01-29 14:45:00 Emergency Virginia Soni [facility] 1.2840.114 350.1.13.10 4.2.7.2.686 [id number] 081 [id number] [facility] 2023-01-20 14:16:00 2023-01-20 18:32:00 Emergency X VIRGINIA SONI [facility] [id number] [facility] 2023-01-20 14:16:00 2023-01-20 18:32:00 Emergency Virginia Soni [facility] 1.2840.114 350.1.13.10 4.2.7.2.686 [id number] [id number] [facility] 2022-12-02 00:00:00 2022-12-02 00:00:00 Transition of Care Ena Vaughn OLEKSANDRHumza [facility] 1.2840.114 350.1.13.10 4.2.7.2.686 [id number] [facility] 2022-11-29 17:47:00 2022-12-01 15:01:00 Outpatient X DONNY [facility]QUES [facility] [id number] [facility] 2022-11-29 17:47:00 2022-12-01 15:01:00 Emergency Juno Verdin Marques Hines [facility] 1.2.840.114 350.1.13.10 4.2.7.2.686 [id number] [id number] [facility] 2022-11-26 14:05:00 2022-11-26 20:18:00 Emergency X [facility]IE [facility] [id number] [facility] 2022-11-26 14:05:00 2022-11-26 20:18:00 Emergency Frankie [facility] 1.2.840.114 350.1.13.10 4.2.7.2.686 [id number] [id number] [facility] 2022-11-21 00:00:00 2022-11-21 00:00:00 Orders Only Doctor Unassigned, [place] [facility] 1.2.840.114 350.1.13.10 4.2.7.2.686 [id number] [facility] 2022-10-31 00:00:00 2022-10-31 00:00:00 Transition of Care Ena Vaughn 1.2.840.114 350.1.13.10 4.2.7.2.686 [id number] [facility] 2022-10-27 22:03:00 2022-10-30 14:20:00 Inpatient X LYDIA TRISTAN [facility] [id number] [facility] 2022-10-27 22:03:00 2022-10-30 14:20:00 Hospital Encounter Marcie Nickerson Wakili S Albustami, Lydia Leonard [facility] 1.2.840.114 350.1.13.10 4.2.7.2.686 [id number] [facility] 2022-08-27 14:15:00 2022-08-27 15:25:22 Outpatient R FAROOQ NATALIE [facility] [id number] [facility] 2022-08-27 14:15:00 2022-08-27 15:25:22 Office Visit Farooq Natalie [facility] 1.2840.114 350.1.13.10 4.2.7.2.686 [id number] [facility] 2022-07-31 00:00:00 2022-07-31 00:00:00 Patient Secure Msg Doctor Unassigned, [place] [facility] 1.0.114 350.1.13.10 4.2.7.2.686 [id number] [facility] 2022-07-30 14:15:00 2022-07-30 14:15:00 Outpatient R FAROOQ NATALIE [facility] [id number] [facility] 2022-07-28 00:00:00 2022-07-28 00:00:00 Transition of Care Ena Vaughn SARA [facility] 1.0.114 350.1.13.10 4.2.7.2.686 [id number] [facility] 2022-07-20 20:56:00 2022-07-26 16:35:00 Hospital Encounter Nicanor Lentz Santhosh Morris, David [facility] 1.0.114 350.1.13.10 4.2.7.2.686 [id number] 081 [id number] [facility] 2022-07-18 14:46:00 2022-07-18 18:35:00 Emergency X NICANOR LENTZ [facility] ERT [id number] [facility] 2022-07-18 14:46:00 2022-07-18 18:35:00 Emergency Nicanor Lentz [facility] 1.2.840.114 350.1.13.10 4.2.7.2.686 [id number] [id number] [facility] 2022-07-18 14:46:00 2022-07-18 18:35:00 Emergency X NICANOR LENTZ [facility] E[facility] [id number] [facility] 2022-07-02 00:00:00 2022-07-02 00:00:00 Telephone Jean Jarrett [facility] PROFESSIO NAL BUILDING 1.2.840.114 350.1.13.10 4.2.7.2.686 [id number] [facility] 2022-07-01 00:00:00 2022-07-01 00:00:00 [facility] 1.2.840.114 350.1.13.10 4.2.7.2.686 [id number] 044 [id number] [facility] 2022-06-19 14:30:00 2022-06-19 14:30:00 [facility] [id number] [facility] 2022-06-16 00:00:00 2022-06-16 00:00:00 Telephone Giles [facility]?BIPIN [facility] 1.2.840.114 350.1.13.10 4.2.7.2.686 [id number] [id number] [facility] 2022-06-10 10:22:00 2022-06-10 16:51:00 Emergency X Joseph MELENDEZ [facility] [id number] [facility] 2022-06-10 10:22:00 2022-06-10 16:51:00 Emergency Joseph Melendez [facility] 1.840.114 350.1.13.10 4.2.7.2.686 [id number] [id number] [facility] 2022-06-03 00:00:00 2022-06-03 00:00:00 Orders Only Doctor Unassigned, [place] [facility] 1.840.114 350.1.13.10 4.2.7.2.686 [id number] [facility] 2022-06-03 00:00:00 2022-06-03 00:00:00 Telephone Chan Dougie [facility]?BIPIN [facility] OFF[facility]ILD[facility] 1.840.114 350.1.13.10 4.2.7.2.686 [id number] 044 [id number] [facility] 2022-05-29 00:00:00 2022-05-29 00:00:00 Transition of Care Ena Vaughn 1.840.114 350.1.13.10 4.2.7.2.686 [id number] [facility] 2022-05-26 16:25:00 2022-05-28 14:40:00 Inpatient X MARLENA RIOS [facility] [id number] [facility] 2022-05-26 16:25:00 2022-05-28 14:40:00 Hospital Encounter Marcie iNckerson Jelani [facility] 1.840.114 350.1.13.10 4.2.7.2.686 [id number] [id number] [facility] 2022-05-23 00:00:00 2022-05-23 00:00:00 Telephone Chan [facility]IPIN [facility] MED[facility] OFF[facility] BUILDING 1.840.114 350.1.13.10 4.2.7.2.686 [id number] [id number] [facility] 2022-05-05 18:41:00 2022-05-16 14:13:00 Inpatient 3 [place] [id number] [facility] Himanshu pearson 2022-05-06 00:00:00 2022-05-06 00:00:00 Transition of Care Ena Vaughn RUIZJuan Jose [facility] 1.20.114 350.1.13.10 4.2.7.2.686 [id number] [facility] 2022-05-02 18:19:00 2022-05-05 17:40:00 Outpatient X [facility] [id number] [facility] 2022-05-02 18:19:00 2022-05-05 17:40:00 Emergency Nicanor Lentz [facility] 1..114 350.1.13.10 4.2.7.2.686 [id number] [id number] [facility] 2022-05-01 00:00:00 2022-05-01 00:00:00 Telephone Chan [facility] MEDICAL OFFICE BUILDING 1..114 350.1.13.10 4.2.7.2.686 [id number] 044 [id number] [facility] 2022-04-17 00:00:00 2022-04-17 00:00:00 Telephone Chan [facility] 1..114 350.1.13.10 4.2.7.2.686 [id number] 044 [id number] [facility] 2021-12-05 14:30:00 2021-12-05 14:45:00 Office Visit Chan [facility] MEDICAL OFFICE BUILDING 1..114 350.1.13.10 4.2.7.2.686 [id number] 044 [id number] [facility] 2021-12-05 14:30:00 2021-12-05 14:30:00 Outpatient DOUGIE BLACKMON [facility] [id number] [facility] 2021-12-05 14:30:00 2021-12-05 14:30:00 Outpatient DOUGIE BLACKMON [facility] [id number] [facility] 2021-12-05 00:00:00 2021-12-05 00:00:00 Orders Only Doctor Unassigned, [place] [facility] 1.2.840.114 350.1.13.10 4.2.7.2.686 [id number] [facility] 2021-11-28 14:00:00 2021-11-28 14:00:00 Outpatient ANGELES BLACKMONONY [facility] [id number] [facility] 2021-11-27 00:00:00 2021-11-27 00:00:00 Telephone Natalie Trivedi [facility] 1.2.840.114 350.1.13.10 4.2.7.2.686 [id number] [facility] 2021-11-21 14:30:00 2021-11-21 14:30:00 Outpatient DOUGIE BLACKMON [facility] [id number] [facility] 2021-11-18 15:00:00 2021-11-18 15:00:00 Nurse Visit Nurse, [facility] 1.2.840.114 350.1.13.10 4.2.7.2.686 [id number] [facility] 2021-11-18 15:00:00 2021-11-18 13:15:55 Outpatient [facility] [id number] [facility] 2021-11-11 11:15:00 2021-11-11 14:37:03 Outpatient R NATALIE TRIVEDI [facility] [id number] [facility] 2021-11-11 11:15:00 2021-11-11 14:37:03 Nurse Visit [facility], [facility] 1.2.840.114 350.1.13.10 4.2.7.2.686 [id number] [facility] 2021-11-11 00:00:00 2021-11-11 00:00:00 [facility] 1.2.840.114 350.1.13.10 4.2.7.2.686 [id number] [facility] 2021-10-24 00:00:00 2021-10-24 00:00:00 Dougie Burgess [facility]?BIPIN ABHIJEET MEDICAL OFFICE BUILDING 1.2.840.114 350.1.13.10 4.2.7.2.686 [id number] 044 [id number] [facility] 2021-10-22 16:00:00 2021-10-22 16:00:00 Nurse Visit Nurse, [facility] 1.2.840.114 350.1.13.10 4.2.7.2.686 [id number] [facility] 2021-10-22 16:00:00 2021-10-22 15:58:34 Outpatient R [facility]ATALINA [facility] [id number] [facility] 2021-10-22 00:00:00 2021-10-22 00:00:00 Telephone Farooq [facility] BUILDING 1.2.840.114 350.1.13.10 4.2.7.2.686 [id number] [facility] 2021-09-24 00:00:00 2021-09-24 00:00:00 Shannon GilesDougie [facility]?BIPIN MUNOZ MEDICAL OFFICE BUILDING 1.0.114 350.1.13.10 4.2.7.2.686 [id number] 044 [id number] [facility] 2021-09-17 00:00:00 2021-09-17 00:00:00 Orders Only Doctor Unassigned, [place] [facility] 1.0.114 350.1.13.10 4.2.7.2.686 [id number] [id number] [facility] 2021-07-31 15:00:00 2021-07-31 15:42:22 Outpatient R FAROOQ [facility] [id number] [facility] 2021-07-31 15:00:00 2021-07-31 15:42:22 [facility] 1.114 350.1.13.10 4.2.7.2.686 [id number] [facility] 2021-07-31 15:00:00 2021-07-31 15:00:00 Outpatient R TRIVEDI [facility] [id number] [facility] 2021-07-31 00:00:00 2021-07-31 00:00:00 Orders Only Doctor Unassigned, [place] [facility] 1..114 350.1.13.10 4.2.7.2.686 [id number] [id number] [facility] 2021-07-30 00:00:00 2021-07-30 00:00:00 Telephone Jelani Cordon [facility]IP[facility] MED[facility] OFF[facility] BU[facility] 1..114 350.1.13.10 4.2.7.2.686 [id number] 092 [id number] [facility] 2021-07-29 00:00:00 2021-07-29 00:00:00 [facility] 1.2840.114 350.1.13.10 4.2.7.2.686 [id number] [facility] 2021-07-22 00:00:00 2021-07-22 00:00:00 Orders Only Doctor Unassigned, [place] [facility] 1.2840.114 350.1.13.10 4.2.7.2.686 [id number] [id number] [facility] 2021-06-26 00:00:00 2021-06-26 00:00:00 Orders Only Doctor Unassigned, [place] [facility] 1.2840.114 350.1.13.10 4.2.7.2.686 [id number] [id number] [facility] 2021-06-19 14:30:00 2021-06-19 14:30:00 Outpatient R DOUGIE GILES [facility] [id number] [facility] 2021-06-15 00:00:00 2021-06-15 00:00:00 Orders Only Doctor Unassigned, [place] [facility] 1.2840.114 350.1.13.10 4.2.7.2.686 [id number] [facility] 2021-06-03 15:45:00 2021-06-03 15:45:00 Outpatient R JEAN JARRETT [facility] [id number] [facility] 2021-06-03 00:00:00 2021-06-03 00:00:00 [facility] 1.2.840.114 350.1.13.10 4.2.7.2.686 [id number] [facility] 2021-05-15 00:00:00 2021-05-15 00:00:00 Telephone Chan Dougie [facility] OFFICE BUILDING 1.2.840.114 350.1.13.10 4.2.7.2.686 [id number] [id number] [facility] 2021-05-01 00:00:00 2021-05-01 00:00:00 Telephone Liane Negrete [facility] 1.2.840.114 350.1.13.10 4.2.7.2.686 [id number] [facility] 2021-04-30 00:00:00 2021-04-30 00:00:00 Telephone Only, Ang Db Test [facility] MEDICAL OFFICE BUILDING 1.2.840.114 350.1.13.10 4.2.7.2.686 [id number] [facility] 2021-04-29 15:00:00 2021-04-29 15:15:00 Laboratory Only Only, Ang Db Test Mannie Vásquez [facility] OFFICE BUILDING 1.2.840.114 350.1.13.10 4.2.7.2.686 [id number] [facility] 2021-04-29 15:00:00 2021-04-29 15:00:00 Outpatient MANNIE DODD [facility] [id number] [facility] 2021-04-29 00:00:00 2021-04-29 00:00:00 Orders Only Doctor Unassigned, [place] [facility] 1.2.840.114 350.1.13.10 4.2.7.2.686 [id number] [id number] [facility] 2021-04-11 14:15:00 2021-04-11 15:10:33 Outpatient DOUGIE BLACKMON [facility] [id number] [facility] 2021-04-11 14:15:00 2021-04-11 14:30:00 Office Visit Dougie Giles [facility] MED[facility] OFF[facility] BUILDING 1.2.840.114 350.1.13.10 4.2.7.2.686 [id number] [id number] [facility] 2021-04-11 14:15:00 2021-04-11 14:15:00 Outpatient R DOUGIE GILES [facility] [id number] [facility] 2021-04-11 14:15:00 2021-04-11 14:15:00 Outpatient R DOUGIE GILES [facility] [id number] [facility] 2021-04-11 14:15:00 2021-04-11 14:15:00 Outpatient R DOUGIE GILES [facility] [id number] [facility] 2021-03-25 15:30:00 2021-03-25 16:15:24 Outpatient MARGI NGUYỄN [facility] [id number] [facility] 2021-03-25 15:30:00 2021-03-25 16:15:24 [facility] 1.2.840.114 350.1.13.10 4.2.7.2.686 [id number] [facility] 2021-03-25 15:30:00 2021-03-25 16:15:24 Outpatient MARGI NGUYỄN [facility] [id number] [facility] 2021-03-08 00:00:00 2021-03-08 00:00:00 Orders Only Doctor Unassigned, [place] [facility] 1..840.114 350.1.13.10 4.2.7.2.686 [id number] [facility] 2021-03-07 13:15:00 2021-03-07 14:35:42 Outpatient R JEAN JARRETT [facility] [id number] [facility] 2021-03-07 13:12:17 2021-03-07 14:35:42 Office Visit Jania Jean [facility] BUILDING 1.2.840.114 350.1.13.10 4.2.7.2.686 [id number] [facility] 2021-03-07 13:15:00 2021-03-07 13:15:00 Outpatient R ABIMAELLORI [facility] [id number] [facility] 2021-02-25 00:00:00 2021-02-25 00:00:00 Orders Only Doctor Unassigned, [place] [facility] 1.2840.114 350.1.13.10 4.2.7.2.686 [id number] [facility] 2021-02-21 00:00:00 2021-02-21 00:00:00 Telephone Dougie Giles [facility]?MARISAMayte [facility] MED[facility] OFF[facility] BUILDING 1.2.840.114 350.1.13.10 4.2.7.2.686 [id number] [id number] [facility] 2021-02-01 00:00:00 2021-02-01 00:00:00 Telephone Jelani Cordon [facility] BUILDING 1.2.840.114 350.1.13.10 4.2.7.2.686 [id number] [facility] 2021-01-30 00:00:00 2021-01-30 00:00:00 Telephone Chan Dougie [facility]?BIPIN [facility] MEDICAL OFFICE BUILDING 1.2.840.114 350.1.13.10 4.2.7.2.686 [id number] 044 [id number] [facility] 2021-01-30 00:00:00 2021-01-30 00:00:00 Telephone Dougie Giles [facility]IPIN [facility] MEDICAL OFFICE BUILDING 1.2.840.114 350.1.13.10 4.2.7.2.686 [id number] 044 [id number] [facility] 2021-01-18 15:11:53 2021-01-18 15:41:53 Office Visit Justine Garcia [facility]?Bipin j[facility] 1.840.114 350.1.13.10 4.2.7.2.686 [id number] [facility] 2021-01-18 15:00:00 2021-01-18 15:00:00 Outpatient R JUSTINE GARCIA [facility] [id number] [facility] 2021-01-17 00:00:00 2021-01-17 00:00:00 Telephone Chan [facility] [place]?Bipin jha [facility] Office Building 1.0.114 350.1.13.10 4.2.7.2.686 [id number] 044 [id number] [facility] 2020-11-22 00:00:00 2020-11-22 00:00:00 Telephone Dougie Giles [facility] Office Building One 1..114 350.1.13.10 4.2.7.2.686 [id number] 044 [id number] [facility] 2020-11-19 00:00:00 2020-11-19 00:00:00 Refill Dougie Giles [facility] Building 1.840.114 350.1.13.10 4.2.7.2.686 [id number] 044 [id number] [facility] 2020-10-18 11:40:10 2020-10-18 12:00:10 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, [facility] Pob Ce Giles [facility] Office Building One 1..114 350.1.13.10 4.2.7.2.686 [id number] [facility] 2020-10-18 11:20:00 2020-10-18 11:20:00 Outpatient Joaquín [facility] [id number] [facility] 2020-10-11 13:52:36 2020-10-11 14:07:36 Office Visit Dougie Giles [facility] Office Building One 1..840.114 350.1.13.10 4.2.7.2.686 [id number] [id number] [facility] 2020-10-11 14:00:00 2020-10-11 14:00:00 Outpatient DOUGIE BLACKMON [facility] [id number] [facility] 2020-10-11 00:00:00 2020-10-11 00:00:00 Orders Only Doctor Unassigned, [place] [facility] 1..840.114 350.1.13.10 4.2.7.2.686 [id number] [facility] 2020-09-28 00:00:00 2020-09-28 00:00:00 Refill Dougie Giles [facility] Building 1..840.114 350.1.13.10 4.2.7.2.686 [id number] [id number] [facility] 2020-09-27 14:00:00 2020-09-27 14:00:00 Outpatient DOUGIE BLACKMON [facility] [id number] [facility] 2020-08-28 13:43:19 2020-08-28 14:44:37 Office Visit Jelani Cordon [facility] Building 1..840.114 350.1.13.10 4.2.7.2.686 [id number] [facility] 2020-08-28 14:20:00 2020-08-28 14:20:00 Outpatient JELANI NOVAK HOWARD [facility] [id number] [facility] 2020-08-02 00:00:00 2020-08-02 00:00:00 Jelani Espinoza [facility] Building 1..840.114 350.1.13.10 4.2.7.2.686 [id number] [facility] 2020-07-17 00:00:00 2020-07-17 00:00:00 Orders Only Doctor Unassigned, [place] [facility] 1.840.114 350.1.13.10 4.2.7.2.686 [id number] [facility] 2020-07-09 00:00:00 2020-07-09 00:00:00 Dougie Burgess [facility] 1..840.114 350.1.13.10 4.2.7.2.686 [id number] [facility] 2020-06-07 17:50:00 2020-06-07 17:50:00 Outpatient JEZ DUNNE [facility] [id number] [facility] 2020-06-07 16:00:00 2020-06-07 16:00:00 Outpatient JEZ DUNNE [facility] [id number] [facility] 2020-05-10 18:10:00 2020-05-10 18:10:00 Outpatient JEZ DUNNE [facility] [id number] [facility] 2020-05-08 00:00:00 2020-05-08 00:00:00 Jelani Espinoza [facility] 1..840.114 350.1.13.10 4.2.7.2.686 [id number] [facility] 2020-04-02 00:00:00 2020-04-02 00:00:00 [facility] 1.2.840.114 350.1.13.10 4.2.7.2.686 [id number] [facility] 2020-03-12 00:00:00 2020-03-12 00:00:00 Telephone Dougie Giles [facility] 1.2.840.114 350.1.13.10 4.2.7.2.686 [id number] [facility] 2020-03-09 00:00:00 2020-03-09 00:00:00 Telephone Jelani Cordon [facility] 1.2.840.114 350.1.13.10 4.2.7.2.686 [id number] [facility] 2020-01-11 00:00:00 2020-01-11 00:00:00 [facility] 1.2.840.114 350.1.13.10 4.2.7.2.686 [id number] [facility] 2019-10-03 00:00:00 2019-10-03 00:00:00 Telephone Jelani Cordon [facility] 1.2.840.114 350.1.13.10 4.2.7.2.686 [id number] [facility] 2019-09-22 08:30:00 2019-09-22 08:30:00 Outpatient DOUGIE BLACKMON [facility] [id number] [facility] 2019-09-19 13:45:00 2019-09-19 13:45:00 Outpatient DOUGIE BLACKMON [facility] [id number] [facility] 2019-09-19 07:50:44 2019-09-19 08:05:44 Telemedici ne Visit Dougie Giles [facility] 1.2.840.114 350.1.13.10 4.2.7.2.686 [id number] [facility] 2019-07-19 00:00:00 2019-07-19 00:00:00 Refgregoria Cordon Jelani Perez [facility] 1.2.840.114 350.1.13.10 4.2.7.2.686 [id number] [facility] 2019-07-18 00:00:00 2019-07-18 00:00:00 Refgregoria Cordon Jelani [facility] 1.2.840.114 350.1.13.10 4.2.7.2.686 [id number] [facility] 2019-07-11 00:00:00 2019-07-11 00:00:00 Shannon GilesDougie [facility] 1.2.840.114 350.1.13.10 4.2.7.2.686 [id number] [id number] [facility] 2019-06-13 00:00:00 2019-06-13 00:00:00 Telephone Jelani Cordon [facility] 1.2.840.114 350.1.13.10 4.2.7.2.686 [id number] [facility] 2019-05-23 14:20:22 2019-05-23 15:03:09 Office Visit Jelani Cordon [facility] 1.2.840.114 350.1.13.10 4.2.7.2.686 [id number] [facility] 2019-05-19 13:41:15 2019-05-19 23:59:00 Outpatient JELANI NOVAK [facility] [id number] [facility] 2019-05-19 13:41:00 2019-05-19 23:59:00 Hospital Encounter Jelani Cordon [facility] 1.2.840.114 350.1.13.10 4.2.7.2.686 [id number] [facility] 2019-05-10 13:35:57 2019-05-10 14:47:10 Office Visit Jelani Cordon [facility] [facility] 1.2.840.114 350.1.13.10 4.2.7.2.686 [id number] [facility] 2019-05-10 00:00:00 2019-05-10 00:00:00 Orders Only Doctor Unassigned, [place] [facility] 1.2.840.114 350.1.13.10 4.2.7.2.686 [id number] [facility] 2019-04-19 00:00:00 2019-04-19 00:00:00 Orders Only Doctor Unassigned, [place] [facility] 1.2.840.114 350.1.13.10 4.2.7.2.686 [id number] [facility] 2016-02-26 03:16:00 2016-02-26 03:16:00 Outpatient Raju_P [facility] [id number] [facility] Results Test Description Test Time Test Comments [...] focal osseous lesions are seen. [facility] CT ABDOMEN PELVIS W CONTRAST 05:27:07 Exam: [...] trochanter of the femur. Fat[facility]. [facility] ([id number]2023-12-31 03:56:36* Test Item Value Reference Range Interpretation Comme nts NA (test code = 0996195037) 134 mmol/L 135-145 L K (test code = 4456458246) 4.0 mmol/L 3.5-5.0 CL (test code = 6588672914) 106 mmol/L 98-108 CO2 TOTAL (test code = 7590772699) 21 mmol/L 23-31 L AGAP (test code = 4322887588) 7 2-16 BUN (test code = 0166596084) 40 mg/dL 7-23 H GLUCOSE (test code = 4541135136) 148 mg/dL 70-110 H CREATININE (test code = 2160-0) 0.60 mg/dL 0.60-1.25 TOTAL BILI (test code = 5992561072) 0.3 mg/dL 0.1-1.1 CALCIUM (test code = 4885652611) 9.0 mg/dL 8.6-10.6 T PROTEIN (test code = 6537442330) 7.0 g/dL 6.3-8.2 ALBUMIN (test code = 1831590502) 3.8 g/dL 3.5-5.0 ALK PHOS (test code = 6335995509) 85 U/L 34-122 ALTv (test code = 1742-6) 18 U/L 5-50 AST(SGOT) (test code = 5665823835) 24 U/L 13-40 eGFR (test code = 81541-3) 98.8 mL/min/1.73m2 CKD-EPI eGFR (2020). Assuming creatinine has been stable day-to-day for at least three months, the eGFR indicates Category G1 (>= 90 mL/min/1.73 m2) Lab Interpretation (test code = 64187-5) Abnormal [facility] with [id number] 03:42:41* Test Item Value Reference Range Interpretation [...] 32.1 g/dL 31.2-35.0 RDW-SD (test code = 84867-9) 50.2 fL 38.5-51.6 RDW-CV (test code = 788-0) 15.3 % 12.1-15.4 PLT (test code = 777-3) 210 150-328 MPV (test code = 92305-8) 8.8 fL 9.8-13.0 L NRBC/100 WBC (test code = 5897003262) 0.0 0.0-10.0 NRBC x10^3 (test code = 3953750963) See_Comment [Automated messa ge] The system which generated this result transmitted reference range: 10*3/?L. The reference range was not used to interpret this result as normal/abnormal. GRAN MAT (NEUT) % (test code = 770-8) 66.5 % IMM GRAN % (test code = 7263830313) 0.50 % LYMPH % (test code = 736-9) 21.9 % MONO % (test code = 5905-5) 8.5 % EOS % (test code = 713-8) 2.3 % BASO % (test code = 706-2) 0.3 % GRAN MAT x10^3(ANC) (test code = 7926212207) 3.96 10*3/uL 1.99-6.95 IMM GRAN x10^3 (test code = 5149257626) 0.03 10*3/uL 0.00-0.06 LYMPH x10^3 (test code = 731-0) 1.31 10*3/uL 1.09-3.23 MONO x10^3 (test code = 742-7) 0.51 10*3/uL 0.36-1.02 EOS x10^3 (test code = 711-2) 0.14 10*3/uL 0.06-0.53 BASO x10^3 (test code = 704-7) 0.01-0.09 Lab Interpretation (test code = 13349-8) [facility][id number][facility] 22:21:33* Test Item Value Reference Range Interpretation Comme nts NA (test code = 9358429572) 140 mmol/L 135-145 K (test code = 6552131646) 4.5 mmol/L 3.5-5.0 CL (test code = 2663766884) 105 mmol/L 98-108 CO2 TOTAL (test code = 4401712379) 29 mmol/L 23-31 AGAP (test code = 4529622481) 6 2-16 BUN (test code = 8017496453) 30 mg/dL 7-23 H GLUCOSE (test code = 8021381955) 90 mg/dL 70-110 CREATININE (test code = 3225805552) 0.61 mg/dL 0.60-1.25 TOTAL BILI (test code = 3719585515) 0.5 mg/dL 0.1-1.1 CALCIUM (test code = 1019499685) 9.4 mg/dL 8.6-10.6 T PROTEIN (test code = 6749566039) 6.8 g/dL 6.3-8.2 ALBUMIN (test code = 8822445436) 3.5 g/dL 3.5-5.0 ALK PHOS (test code = 8855932061) 65 U/L 34-122 ALTv (test code = 1742-6) 16 U/L 5-50 AST(SGOT) (test code = 4084000154) 31 U/L 13-40 eGFR (test code = 66810-4) 98.3 mL/min/1.73m2 CKD-EPI eGFR (2020). Assuming creatinine has been stable day-to-day for at least three months, the eGFR indicates Category G1 (>= 90 mL/min/1.73 m2) Lab Interpretation (test code = 48104-3) Abnormal [facility] WITH [id number] 21:58:52* Test Item Value Reference Range Interpretation Comme nts WBC (test code = 6690-2) 6.24 See_Comment [Automated [employer]] The system which generated this result transmitted reference range: 4.20 - 10.70 10*3/?L. The reference range was not used to interpret this result as normal/abnormal. RBC (test code = 789-8) 4.28 See_Comment [Automated [employer]] The system which generated this result transmitted [...] 33.2 g/dL 31.2-35.0 RDW-SD (test code = 96505-7) 48.7 fL 38.5-51.6 RDW-CV (test code = 788-0) 14.7 % 12.1-15.4 PLT (test code = 777-3) 209 See_Comment [Automated [employer] ge] The system which generated this result transmitted reference range: 150 - 328 10*3/?L. The reference range was not used to interpret this result as normal/abnormal. MPV (test code = 80095-4) 8.6 fL 9.8-13.0 L NRBC/100 WBC (test code = 0929955293) 0.0 See_Comment [Automated [employer] ssage] The system which generated this result transmitted reference range: 0.0 - 10.0 /100 WBCs. The reference range was not used to interpret this result as normal/abnormal. NRBC x10^3 (test code = 6040021681) See_Comment [Automated [employer] ge] The system which generated this result transmitted reference range: 10*3/?L. The reference range was not used to interpret this result as normal/abnormal. GRAN MAT (NEUT) % (test code = 770-8) 66.3 % IMM GRAN % (test code = 0545617155) 0.30 % LYMPH % (test code = 736-9) 21.3 % MONO % (test code = 5905-5) 8.8 % EOS % (test code = 713-8) 3.0 % BASO % (test code = 706-2) 0.3 % GRAN MAT x10^3(ANC) (test code = 7902045293) 4.13 10*3/uL 1.99-6.95 IMM GRAN x10^3 (test code = 8708955686) 0.00-0.06 LYMPH x10^3 (test code = 731-0) 1.33 10*3/uL 1.09-3.23 MONO x10^3 (test code = 742-7) 0.55 10*3/uL 0.36-1.02 EOS x10^3 (test code = 711-2) 0.19 10*3/uL 0.06-0.53 BASO x10^3 (test code = 704-7) 0.01-0.09 Lab Interpretation (test code = 32395-0) Abnormal [facility] METABOLIC PANEL (NA, K, CL, CO2, GLUCOSE, BUN, CREATININE, CA)2023-02-24 22:19:20* Test Item Value Reference Range Interpretation Comme nts NA (test code = 0420498395) 137 mmol/L 135-145 K (test code = 1011860150) 3.8 mmol/L 3.5-5.0 CL (test code = 4164121278) 106 mmol/L 98-108 CO2 TOTAL (test code = 2866557687) 24 mmol/L 23-31 AGAP (test code = 1988769600) 7 2-16 BUN (test code = 5433131415) 25 mg/dL 7-23 H GLUCOSE (test code = 7154621360) 109 mg/dL 70-110 CREATININE (test code = 5410618454) 0.56 mg/dL 0.60-1.25 L CALCIUM (test code = 7917867276) 8.8 mg/dL 8.6-10.6 eGFR (test code = 94204-1) 101.5 mL/min/1.73m2 CKD-EPI eGFR (2020). Assuming creatinine has been stable day-to-day for at least three months, the eGFR indicates Category G1 (>= 90 mL/min/1.73 m2) Lab Interpretation (test code = 73121-5) Abnormal [facility] METABOLIC PANEL (NA, K, CL, CO2, GLUCOSE, BUN, CREATININE, CA)2023-02-05 10:07:11* Test Item Value Reference Range Interpretation Comme nts NA (test code = 1416087004) 141 mmol/L 135-145 K (test code = 9747711260) 3.9 mmol/L 3.5-5.0 CL (test code = 3671675461) 110 mmol/L 98-108 H CO2 TOTAL (test code = 0882244795) 24 mmol/L 23-31 AGAP (test code = 8714486920) 7 2-16 BUN (test code = 5346937910) 26 mg/dL 7-23 H GLUCOSE (test code = 4441701175) 88 mg/dL 70-110 CREATININE (test code = 9284947577) 0.62 mg/dL 0.60-1.25 CALCIUM (test code = 8016816306) 8.5 mg/dL 8.6-10.6 L eGFR (test code = 02676-4) 98.4 mL/min/1.73m2 CKD-EPI eGFR (2020). Assuming creatinine has been stable day-to-day for at least three months, the eGFR indicates Category G1 (>= 90 mL/min/1.73 m2) Lab Interpretation (test code = 36653-9) Abnormal [facility] WITH [id number] 08:38:12* Test Item Value Reference Range Interpretation Comme nts WBC (test code = 6690-2) 7.22 See_Comment [Automated [employer]] The system which generated this result transmitted reference range: 4.20 - 10.70 10*3/?L. The reference range was not used to interpret this result as normal/abnormal. RBC (test code = 789-8) 3.64 See_Comment L [Automated [employer]] The system which generated this result transmitted [...] 32.0 g/dL 31.2-35.0 RDW-SD (test code = 37469-2) 50.4 fL 38.5-51.6 RDW-CV (test code = 788-0) 14.9 % 12.1-15.4 PLT (test code = 777-3) 171 See_Comment [Automated [employer] ge] The system which generated this result transmitted reference range: 150 - 328 10*3/?L. The reference range was not used to interpret this result as normal/abnormal. MPV (test code = 47136-2) 8.5 fL 9.8-13.0 L NRBC/100 WBC (test code = 1102141556) 0.0 See_Comment [Automated [employer] ssage] The system which generated this result transmitted reference range: 0.0 - 10.0 /100 WBCs. The reference range was not used to interpret this result as normal/abnormal. NRBC x10^3 (test code = 6923968679) See_Comment [Automated [employer] ge] The system which generated this result transmitted reference range: 10*3/?L. The reference range was not used to interpret this result as normal/abnormal. GRAN MAT (NEUT) % (test code = 770-8) 71.3 % IMM GRAN % (test code = 6230251938) 1.00 % LYMPH % (test code = 736-9) 19.3 % MONO % (test code = 5905-5) 6.9 % EOS % (test code = 713-8) 1.4 % BASO % (test code = 706-2) 0.1 % GRAN MAT x10^3(ANC) (test code = 6394903818) 5.15 10*3/uL 1.99-6.95 IMM GRAN x10^3 (test code = 1278785896) 0.07 10*3/uL 0.00-0.06 H LYMPH x10^3 (test code = 731-0) 1.39 10*3/uL 1.09-3.23 MONO x10^3 (test code = 742-7) 0.50 10*3/uL 0.36-1.02 EOS x10^3 (test code = 711-2) 0.10 10*3/uL 0.06-0.53 BASO x10^3 (test code = 704-7) 0.01-0.09 Lab Interpretation (test code = 19204-2) Abnormal [facility] METABOLIC PANEL (NA, K, CL, CO2, GLUCOSE, BUN, CREATININE, CA)2023-02-04 11:48:34* Test Item Value Reference Range Interpretation Comme [facility] NA (test code = 4271795168) 141 mmol/L 135-145 K (test code = 0370384104) 3.8 mmol/L 3.5-5.0 CL (test code = 3122767676) 109 mmol/L 98-108 H CO2 TOTAL (test code = 3987860040) 23 mmol/L 23-31 AGAP (test code = 0628161798) 9 2-16 BUN (test code = 0945896050) 27 mg/dL 7-23 H GLUCOSE (test code = 9464507165) 114 mg/dL 70-110 H CREATININE (test code = 9104693500) 0.65 mg/dL 0.60-1.25 CALCIUM (test code = 5744859972) 8.7 mg/dL 8.6-10.6 eGFR (test code = 77849-1) 97.0 mL/min/1.73m2 CKD-EPI eGFR (2020). Assuming creatinine has been stable day-to-day for at least three months, the eGFR indicates Category G1 (>= 90 mL/min/1.73 m2) Lab Interpretation (test code = 24846-3) Abnormal [facility] WITH [id number] 10:36:47* Test Item Value Reference Range Interpretation Comme nts WBC (test code = 6690-2) 9.11 See_Comment [Automated [employer]] The system which generated this result transmitted [...] 32.1 g/dL 31.2-35.0 RDW-SD (test code = 06995-9) 50.7 fL 38.5-51.6 RDW-CV (test code = 788-0) 14.7 % 12.1-15.4 PLT (test code = 777-3) 192 See_Comment [Automated messa ge] The system which generated this result transmitted reference range: 150 - 328 10*3/?L. The reference range was not used to interpret this result as normal/abnormal. MPV (test code = 34683-8) 8.6 fL 9.8-13.0 L NRBC/100 WBC (test code = 4570817096) 0.0 See_Comment [Automated [employer] ssage] The system which generated this result transmitted reference range: 0.0 - 10.0 /100 WBCs. The reference range was not used to interpret this result as normal/abnormal. NRBC x10^3 (test code = 9116225836) See_Comment [Automated messa ge] The system which generated this result transmitted reference range: 10*3/?L. The reference range was not used to interpret this result as normal/abnormal. GRAN MAT (NEUT) % (test code = 770-8) 80.5 % IMM GRAN % (test code = 2526688267) 0.70 % LYMPH % (test code = 736-9) 10.6 % MONO % (test code = 5905-5) 7.9 % EOS % (test code = 713-8) 0.1 % BASO % (test code = 706-2) 0.2 % GRAN MAT x10^3(ANC) (test code = 4194658376) 7.33 10*3/uL 1.99-6.95 H IMM GRAN x10^3 (test code = 4320879974) 0.06 10*3/uL 0.00-0.06 LYMPH x10^3 (test code = 731-0) 0.97 10*3/uL 1.09-3.23 L MONO x10^3 (test code = 742-7) 0.72 10*3/uL 0.36-1.02 EOS x10^3 (test code = 711-2) 0.06-0.53 L BASO x10^3 (test code = 704-7) 0.01-0.09 Lab Interpretation (test code = 13188-5) [facility] 17:57:30* Test Item Value Reference Range Interpretation Comme nts Procalcitonin (test code = 5666299925) 0.06 ng/mL <=0.07 STEPHANIE (test code = [...] lung abscess/empyema. For further information please refer to:[email or web address] Lab Interpretation (test code = 88559-3) Normal [facility] with [id number] 12:23:54* Test Item Value Reference Range Interpretation Comme nts WBC (test code = 6690-2) 4.43 See_Comment [Automated [employer]] The system which generated this result transmitted reference range: 4.20 - 10.70 10*3/?L. The reference range was not used to interpret this result as normal/abnormal. RBC (test code = 789-8) 3.88 See_Comment L [Automated [employer] ge] The system which generated this result [...] 31.4 g/dL 31.2-35.0 RDW-SD (test code = 99677-3) 51.0 fL 38.5-51.6 RDW-CV (test code = 788-0) 14.6 % 12.1-15.4 PLT (test code = 777-3) 183 See_Comment [Automated [employer] ge] The system which generated this result transmitted reference range: 150 - 328 10*3/?L. The reference range was not used to interpret this result as normal/abnormal. MPV (test code = 65782-8) 8.5 fL 9.8-13.0 L NRBC/100 WBC (test code = 8688740321) 0.0 See_Comment [Automated [employer] ssage] The system which generated this result transmitted reference range: 0.0 - 10.0 /100 WBCs. The reference range was not used to interpret this result as normal/abnormal. NRBC x10^3 (test code = 4969316677) See_Comment [Automated [employer] ge] The system which generated this result transmitted reference range: 10*3/?L. The reference range was not used to interpret this result as normal/abnormal. GRAN MAT (NEUT) % (test code = 770-8) 60.9 % IMM GRAN % (test code = 8250943863) 0.50 % LYMPH % (test code = 736-9) 18.1 % MONO % (test code = 5905-5) 20.3 % EOS % (test code = 713-8) 0.0 % BASO % (test code = 706-2) 0.2 % GRAN MAT x10^3(ANC) (test code = 2950382991) 2.70 10*3/uL 1.99-6.95 IMM GRAN x10^3 (test code = 6922237945) 0.00-0.06 LYMPH x10^3 (test code = 731-0) 0.80 10*3/uL 1.09-3.23 L MONO x10^3 (test code = 742-7) 0.90 10*3/uL 0.36-1.02 EOS x10^3 (test code = 711-2) 0.06-0.53 L BASO x10^3 (test code = 704-7) 0.01-0.09 Lab Interpretation (test code = 47362-4) Abnormal [facility] Metabolic Panel (NA, K, CL, CO2, GLUCOSE, BUN, CREATININE, CA)2023-02-03 10:51:24* Test Item Value Reference Range Interpretation Comme nts NA (test code = 2246369340) 140 mmol/L 135-145 K (test code = 2061431368) 4.0 mmol/L 3.5-5.0 CL (test code = 6449729270) 107 mmol/L 98-108 CO2 TOTAL (test code = 3934887343) 24 mmol/L 23-31 AGAP (test code = 0987087825) 9 2-16 BUN (test code = 3816129663) 24 mg/dL 7-23 H GLUCOSE (test code = 5198453443) 125 mg/dL 70-110 H CREATININE (test code = 6221177102) 0.69 mg/dL 0.60-1.25 CALCIUM (test code = 4059013416) 8.6 mg/dL 8.6-10.6 eGFR (test code = 07751-8) 95.3 mL/min/1.73m2 CKD-EPI eGFR (2020). Assuming creatinine has been stable day-to-day for at least three months, the eGFR indicates Category G1 (>= 90 mL/min/1.73 m2) Lab Interpretation (test code = 32555-0) Abnormal [facility]. METABOLIC PANEL (95300)2023-02-02 17:27:20* Test Item Value Reference Range Interpretation Comme nts NA (test code = 4139792455) 139 mmol/L 135-145 K (test code = 8343927495) 3.8 mmol/L 3.5-5.0 CL (test code = 2467925595) 106 mmol/L 98-108 CO2 TOTAL (test code = 5512378678) 24 mmol/L 23-31 AGAP (test code = 3788469275) 9 2-16 BUN (test code = 2824745269) 25 mg/dL 7-23 H GLUCOSE (test code = 8705171336) 112 mg/dL 70-110 H CREATININE (test code = 4124488497) 0.79 mg/dL 0.60-1.25 TOTAL BILI (test code = 4726271775) 0.3 mg/dL 0.1-1.1 CALCIUM (test code = 4964432217) 8.8 mg/dL 8.6-10.6 T PROTEIN (test code = 9726646254) 6.4 g/dL 6.3-8.2 ALBUMIN (test code = 6260390358) 3.2 g/dL 3.5-5.0 L ALK PHOS (test code = 1087297734) 65 U/L 34-122 ALTv (test code = 1742-6) 25 U/L 5-50 AST(SGOT) (test code = 9342935959) 30 U/L 13-40 eGFR (test code = 04015-1) 95.1 mL/min/1.73m2 STEPHANIE (test code = STEPHANIE) [...] imaging tests). Lab Interpretation (test code = 85360-1) Abnormal [facility] WITH [id number] 17:15:14* Test Item Value Reference Range Interpretation [...] 32.9 g/dL 31.2-35.0 RDW-SD (test code = 28844-3) 49.1 fL 38.5-51.6 RDW-CV (test code = 788-0) 14.6 % 12.1-15.4 PLT (test code = 777-3) 198 See_Comment [Automated messa ge] The system which generated this result transmitted reference range: 150 - 328 10*3/?L. The reference range was not used to interpret this result as normal/abnormal. MPV (test code = 15131-1) 8.4 fL 9.8-13.0 L NRBC/100 WBC (test code = 9343452301) 0.0 See_Comment [Automated me ssage] The system which generated this result transmitted reference range: 0.0 - 10.0 /100 WBCs. The reference range was not used to interpret this result as normal/abnormal. NRBC x10^3 (test code = 1633549664) See_Comment [Automated messa ge] The system which generated this result transmitted reference range: 10*3/?L. The reference range was not used to interpret this result as normal/abnormal. GRAN MAT (NEUT) % (test code = 770-8) 68.4 % IMM GRAN % (test code = 2473071475) 0.20 % LYMPH % (test code = 736-9) 11.8 % MONO % (test code = 5905-5) 19.4 % EOS % (test code = 713-8) 0.0 % BASO % (test code = 706-2) 0.2 % GRAN MAT x10^3(ANC) (test code = 1155707643) 3.07 10*3/uL 1.99-6.95 IMM GRAN x10^3 (test code = 2920362023) 0.00-0.06 LYMPH x10^3 (test code = 731-0) 0.53 10*3/uL 1.09-3.23 L MONO x10^3 (test code = 742-7) 0.87 10*3/uL 0.36-1.02 EOS x10^3 (test code = 711-2) 0.06-0.53 L BASO x10^3 (test code = 704-7) 0.01-0.09 Lab Interpretation (test code = 88648-2) [facility] [id number] 21:47:26* Test Item Value Reference Range Interpretation Comme nts LACTIC ACID (test code = 0610150404) 1.46 mmol/L 0.50-2.20 Lab Interpretation (test cod e = 43605-7) [facility] [id number] 21:42:21* Test Item Value Reference Range Interpretation Comme nts ESR (test code = 80300-5) 16 See_Comment H [Automated messa ge] The system which generated this result transmitted reference range: 0 - 10 mm/HR. The reference range was not used to interpret this result as normal/abnormal. Lab Interpretation (test code = 44824-5) Abnormal [facility]. METABOLIC PANEL (32901)2023-01-25 21:24:38* Test Item Value Reference Range Interpretation Comme nts NA (test code = 2473453909) 143 mmol/L 135-145 K (test code = 1760024316) 3.9 mmol/L 3.5-5.0 CL (test code = 8096300534) 105 mmol/L 98-108 CO2 TOTAL (test code = 6233063577) 29 mmol/L 23-31 AGAP (test code = 8654960502) 9 2-16 BUN (test code = 0169831146) 38 mg/dL 7-23 H GLUCOSE (test code = 6462166149) 100 mg/dL 70-110 CREATININE (test code = 8854654918) 0.81 mg/dL 0.60-1.25 TOTAL BILI (test code = 1587748621) 0.2 mg/dL 0.1-1.1 CALCIUM (test code = 7449629454) 9.5 mg/dL 8.6-10.6 T PROTEIN (test code = 1343716597) 6.8 g/dL 6.3-8.2 ALBUMIN (test code = 2700014100) 3.7 g/dL 3.5-5.0 ALK PHOS (test code = 9819006755) 81 U/L 34-122 ALTv (test code = 1742-6) 22 U/L 5-50 AST(SGOT) (test code = 5570664526) 26 U/L 13-40 eGFR (test code = 0104963848) 92.4 mL/min/1.73m2 STEPHANIE (test code = STEPHANIE) [...] imaging tests). Lab Interpretation (test code = 12587-5) Abnormal [facility] WITH [id number] 20:59:14* Test Item Value Reference Range Interpretation Comme nts WBC (test code = 6690-2) 7.29 See_Comment [Automated [employer]] The system which generated this result transmitted reference range: 4.20 - 10.70 10*3/?L. The reference range was not used to interpret this result as normal/abnormal. RBC (test code = 789-8) 4.52 See_Comment [Automated [employer]] The system which generated this result transmitted [...] 32.1 g/dL 31.2-35.0 RDW-SD (test code = 09446-8) 49.1 fL 38.5-51.6 RDW-CV (test code = 788-0) 14.2 % 12.1-15.4 PLT (test code = 777-3) 202 See_Comment [Automated [employer]] The system which generated this result transmitted reference range: 150 - 328 10*3/?L. The reference range was not used to interpret this result as normal/abnormal. MPV (test code = 09689-3) 8.8 fL 9.8-13.0 L NRBC/100 WBC (test code = 7751117312) 0.0 See_Comment [Automated me ssage] The system which generated this result transmitted reference range: 0.0 - 10.0 /100 WBCs. The reference range was not used to interpret this result as normal/abnormal. NRBC x10^3 (test code = 8384920436) See_Comment [Automated messa ge] The system which generated this result transmitted reference range: 10*3/?L. The reference range was not used to interpret this result as normal/abnormal. GRAN MAT (NEUT) % (test code = 770-8) 72.5 % IMM GRAN % (test code = 9253264380) 0.30 % LYMPH % (test code = 736-9) 15.4 % MONO % (test code = 5905-5) 8.9 % EOS % (test code = 713-8) 2.6 % BASO % (test code = 706-2) 0.3 % GRAN MAT x10^3(ANC) (test code = 8556728035) 5.29 10*3/uL 1.99-6.95 IMM GRAN x10^3 (test code = 5458106813) 0.00-0.06 LYMPH x10^3 (test code = 731-0) 1.12 10*3/uL 1.09-3.23 MONO x10^3 (test code = 742-7) 0.65 10*3/uL 0.36-1.02 EOS x10^3 (test code = 711-2) 0.19 10*3/uL 0.06-0.53 BASO x10^3 (test code = 704-7) 0.01-0.09 Lab Interpretation (test code = 55021-2) [facility] [id number] 20:35:20* Test Item Value Reference Range Interpretation Comme nts TROPONIN I (test code = 6154158758) 0.006 ng/mL <=0.034 STEPHANIE (test code = [...] of biotin. Lab Interpretation (test code = 67821-2) Normal [id number] 20:33:03* Test Item Value Reference Range Interpretation Comme nts NT-proBNP (test code = 74710-4) 129 pg/mL <=125 STEPHANIE (test code = STEPHANIE) Result Indeterminate-Consid er causes of NT-proBNP elevation other than Heart failure such as acute coronary syndrome, pulmonary embolism, pulmonary hypertension, sepsis, stroke, and renal dysfunction. Lab Interpretation (test code = 87883-4) [facility] (77011)2023-01-20 20:23:37* Test Item Value Reference Range Interpretation Comme nts NA (test code = 4073735883) 142 mmol/L 135-145 K (test code = 1320794920) 4.8 mmol/L 3.5-5.0 CL (test code = 3657263520) 109 mmol/L 98-108 H CO2 TOTAL (test code = 4908650920) 26 mmol/L 23-31 AGAP (test code = 0815379472) 7 2-16 BUN (test code = 0120274300) 33 mg/dL 7-23 H GLUCOSE (test code = 9736392554) 123 mg/dL 70-110 H CREATININE (test code = 5089507754) 0.70 mg/dL 0.60-1.25 TOTAL BILI (test code = 3144811339) 0.5 mg/dL 0.1-1.1 CALCIUM (test code = 3258246695) 9.3 mg/dL 8.6-10.6 T PROTEIN (test code = 7870038026) 7.0 g/dL 6.3-8.2 ALBUMIN (test code = 3569119288) 3.8 g/dL 3.5-5.0 ALK PHOS (test code = 0687076662) 64 U/L 34-122 ALTv (test code = 1742-6) 22 U/L 5-50 AST(SGOT) (test code = 5800167798) 44 U/L 13-40 H eGFR (test code = 6341095407) 109.4 mL/min/1.73m2 STEPHANIE (test code = STEPHANIE) [...] imaging tests). Lab Interpretation (test code = 64267-0) [facility] 20:23:37* Test Item Value Reference Range Interpretation Comme nts MAGNESIUM (test code = 3904810624) 2.2 mg/dL 1.7-2.4 Lab Interpretation (test cod e = 72099-2) Normal [facility] WITH [id number] 20:10:16* Test Item Value Reference Range Interpretation Comme nts WBC (test code = 6690-2) 7.96 See_Comment [Automated [employer] ge] The system which generated this result transmitted reference range: 4.20 - 10.70 10*3/?L. The reference range was not used to interpret this result as normal/abnormal. RBC (test code = 789-8) 4.60 See_Comment [Automated [employer] ge] The system which generated this result [...] 32.6 g/dL 31.2-35.0 RDW-SD (test code = 25433-4) 47.1 fL 38.5-51.6 RDW-CV (test code = 788-0) 14.1 % 12.1-15.4 PLT (test code = 777-3) 221 See_Comment [Automated [employer] ge] The system which generated this result transmitted reference range: 150 - 328 10*3/?L. The reference range was not used to interpret this result as normal/abnormal. MPV (test code = 39653-9) 8.9 fL 9.8-13.0 L NRBC/100 WBC (test code = 2748152619) 0.0 See_Comment [Automated [employer] ssage] The system which generated this result transmitted reference range: 0.0 - 10.0 /100 WBCs. The reference range was not used to interpret this result as normal/abnormal. NRBC x10^3 (test code = 8020629672) See_Comment [Automated [employer] ge] The system which generated this result transmitted reference range: 10*3/?L. The reference range was not used to interpret this result as normal/abnormal. GRAN MAT (NEUT) % (test code = 770-8) 69.6 % IMM GRAN % (test code = 9549759334) 0.30 % LYMPH % (test code = 736-9) 18.3 % MONO % (test code = 5905-5) 10.2 % EOS % (test code = 713-8) 1.3 % BASO % (test code = 706-2) 0.3 % GRAN MAT x10^3(ANC) (test code = 0227819392) 5.55 10*3/uL 1.99-6.95 IMM GRAN x10^3 (test code = 0393321894) 0.00-0.06 LYMPH x10^3 (test code = 731-0) 1.46 10*3/uL 1.09-3.23 MONO x10^3 (test code = 742-7) 0.81 10*3/uL 0.36-1.02 EOS x10^3 (test code = 711-2) 0.10 10*3/uL 0.06-0.53 BASO x10^3 (test code = 704-7) 0.01-0.09 Lab Interpretation (test code = 68038-2) [facility][id number][facility]20[facility]-29 23:35:53* Test Item Value Reference Range Interpretation Comme nts NA (test code = 7997286055) 137 mmol/L 135-145 K (test code = 3831571980) 4.4 mmol/L 3.5-5.0 CL (test code = 0294379298) 103 mmol/L 98-108 CO2 TOTAL (test code = 5456290423) 26 mmol/L 23-31 AGAP (test code = 7234095947) 8 2-16 BUN (test code = 7530418043) 30 mg/dL 7-23 H GLUCOSE (test code = 9873295005) 124 mg/dL 70-110 H CREATININE (test code = 1849764229) 0.69 mg/dL 0.60-1.25 TOTAL BILI (test code = 3079951371) 0.3 mg/dL 0.1-1.1 CALCIUM (test code = 6835489231) 9.3 mg/dL 8.6-10.6 T PROTEIN (test code = 9163993840) 6.5 g/dL 6.3-8.2 ALBUMIN (test code = 8749152166) 3.6 g/dL 3.5-5.0 ALK PHOS (test code = 7945987777) 78 U/L 34-122 ALTv (test code = 1742-6) 21 U/L 5-50 AST(SGOT) (test code = 1555968543) 25 U/L 13-40 eGFR (test code = 8193884120) 111.2 mL/min/1.73m2 STEPHANIE (test code = STEPHANIE) [...] imaging tests). Lab Interpretation (test code = 89887-2) Abnormal [facility] WITH [id number] 23:22:49* Test Item Value Reference Range Interpretation Comme nts WBC (test code = 6690-2) 5.98 See_Comment [Automated [employer]] The system which generated this result transmitted [...] 34.2 g/dL 31.2-35.0 RDW-SD (test code = 55655-5) 45.1 fL 38.5-51.6 RDW-CV (test code = 788-0) 13.9 % 12.1-15.4 PLT (test code = 777-3) 210 See_Comment [Automated messa ge] The system which generated this result transmitted reference range: 150 - 328 10*3/?L. The reference range was not used to interpret this result as normal/abnormal. MPV (test code = 88301-2) 8.4 fL 9.8-13.0 L NRBC/100 WBC (test code = 5723838742) 0.0 See_Comment [Automated me ssage] The system which generated this result transmitted reference range: 0.0 - 10.0 /100 WBCs. The reference range was not used to interpret this result as normal/abnormal. NRBC x10^3 (test code = 3508965669) See_Comment [Automated messa ge] The system which generated this result transmitted reference range: 10*3/?L. The reference range was not used to interpret this result as normal/abnormal. GRAN MAT (NEUT) % (test code = 770-8) 68.8 % IMM GRAN % (test code = 3564560518) 0.20 % LYMPH % (test code = 736-9) 18.6 % MONO % (test code = 5905-5) 8.7 % EOS % (test code = 713-8) 3.0 % BASO % (test code = 706-2) 0.7 % GRAN MAT x10^3(ANC) (test code = 2403281905) 4.12 10*3/uL 1.99-6.95 IMM GRAN x10^3 (test code = 2149450935) 0.00-0.06 LYMPH x10^3 (test code = 731-0) 1.11 10*3/uL 1.09-3.23 MONO x10^3 (test code = 742-7) 0.52 10*3/uL 0.36-1.02 EOS x10^3 (test code = 711-2) 0.18 10*3/uL 0.06-0.53 BASO x10^3 (test code = 704-7) 0.04 10*3/uL 0.01-0.09 Lab Interpretation (test code = 36263-5) [facility] ([id number])2022-11-26 21:19:14* Test Item Value Reference Range Interpretation Comme nts NA (test code = 8005926891) 135 mmol/L 135-145 K (test code = 4485055216) 4.1 mmol/L 3.5-5.0 CL (test code = 5218926690) 102 mmol/L 98-108 CO2 TOTAL (test code = 0683355142) 27 mmol/L 23-31 AGAP (test code = 5463709194) 6 2-16 BUN (test code = 9517091158) 23 mg/dL 7-23 GLUCOSE (test code = 4536852884) 97 mg/dL 70-110 CREATININE (test code = 4525697130) 0.54 mg/dL 0.60-1.25 L TOTAL BILI (test code = 8506936655) 0.4 mg/dL 0.1-1.1 CALCIUM (test code = 2313399503) 8.9 mg/dL 8.6-10.6 T PROTEIN (test code = 3465073533) 6.5 g/dL 6.3-8.2 ALBUMIN (test code = 4324966107) 3.6 g/dL 3.5-5.0 ALK PHOS (test code = 7877973932) 70 U/L 34-122 ALTv (test code = 1742-6) 20 U/L 5-50 AST(SGOT) (test code = 6114084551) 36 U/L 13-40 eGFR (test code = 3225992667) 147.5 mL/min/1.73m2 STEPHANIE (test code = STEPHANIE) [...] imaging tests). Lab Interpretation (test code = 63300-6) Abnormal [facility] WITH [id number] 20:32:47* Test Item Value Reference Range Interpretation Comme nts WBC (test code = 6690-2) 9.43 See_Comment [Automated [employer]] The system which generated this result transmitted reference range: 4.20 - 10.70 10*3/?L. The reference range was not used to interpret this result as normal/abnormal. RBC (test code = 789-8) 4.13 See_Comment L [Automated [employer]] The system which generated this result transmitted [...] 33.8 g/dL 31.2-35.0 RDW-SD (test code = 09965-0) 45.9 fL 38.5-51.6 RDW-CV (test code = 788-0) 14.0 % 12.1-15.4 PLT (test code = 777-3) 171 See_Comment [Automated [employer]] The system which generated this result transmitted reference range: 150 - 328 10*3/?L. The reference range was not used to interpret this result as normal/abnormal. MPV (test code = 31444-8) 8.5 fL 9.8-13.0 L NRBC/100 WBC (test code = 3443220571) 0.0 See_Comment [Automated [employer] ssage] The system which generated this result transmitted reference range: 0.0 - 10.0 /100 WBCs. The reference range was not used to interpret this result as normal/abnormal. NRBC x10^3 (test code = 1634990518) See_Comment [Automated [employer] ge] The system which generated this result transmitted reference range: 10*3/?L. The reference range was not used to interpret this result as normal/abnormal. GRAN MAT (NEUT) % (test code = 770-8) 79.4 % IMM GRAN % (test code = 7194369747) 0.20 % LYMPH % (test code = 736-9) 9.1 % MONO % (test code = 5905-5) 8.4 % EOS % (test code = 713-8) 2.7 % BASO % (test code = 706-2) 0.2 % GRAN MAT x10^3(ANC) (test code = 7755800405) 7.49 10*3/uL 1.99-6.95 H IMM GRAN x10^3 (test code = 2844956679) 0.00-0.06 LYMPH x10^3 (test code = 731-0) 0.86 10*3/uL 1.09-3.23 L MONO x10^3 (test code = 742-7) 0.79 10*3/uL 0.36-1.02 EOS x10^3 (test code = 711-2) 0.25 10*3/uL 0.06-0.53 BASO x10^3 (test code = 704-7) 0.01-0.09 Lab Interpretation (test code = 98456-4) Abnormal [facility] METABOLIC PANEL (NA, K, CL, CO2, GLUCOSE, BUN, CREATININE, CA)2022-10-30 09:42:32* Test Item Value Reference Range Interpretation Comme nts NA (test code = 0186413704) 135 mmol/L 135-145 K (test code = 2328643315) 4.3 mmol/L 3.5-5.0 CL (test code = 7607931926) 105 mmol/L 98-108 CO2 TOTAL (test code = 0492962253) 25 mmol/L 23-31 AGAP (test code = 5903959337) 5 2-16 BUN (test code = 3874901899) 12 mg/dL 7-23 GLUCOSE (test code = 3878161799) 104 mg/dL 70-110 CREATININE (test code = 3303687458) 0.59 mg/dL 0.60-1.25 L CALCIUM (test code = 7771232508) 8.8 mg/dL 8.6-10.6 eGFR (test code = 1119514963) 133.2 mL/min/1.73m2 STEPHANIE (test code = STEPHANIE) [...] imaging tests). Lab Interpretation (test code = 15068-2) [facility] 09:42:32* Test Item Value Reference Range Interpretation Comme nts MAGNESIUM (test code = 4824054898) 2.0 mg/dL 1.7-2.4 Lab Interpretation (test cod e = 54832-3) Normal [facility] WITH [id number] 09:34:52* Test Item Value Reference Range Interpretation Comme nts WBC (test code = 6690-2) 5.97 See_Comment [Automated [employer]] The system which generated this result transmitted reference range: 4.20 - 10.70 10*3/?L. The reference range was not used to interpret this result as normal/abnormal. RBC (test code = 789-8) 3.81 See_Comment L [Automated [employer]] The system which generated this result transmitted [...] 33.2 g/dL 31.2-35.0 RDW-SD (test code = 91970-9) 44.7 fL 38.5-51.6 RDW-CV (test code = 788-0) 13.5 % 12.1-15.4 PLT (test code = 777-3) 207 See_Comment [Automated messa ge] The system which generated this result transmitted reference range: 150 - 328 10*3/?L. The reference range was not used to interpret this result as normal/abnormal. MPV (test code = 15318-3) 8.4 fL 9.8-13.0 L NRBC/100 WBC (test code = 7635507956) 0.0 See_Comment [Automated [employer] ssage] The system which generated this result transmitted reference range: 0.0 - 10.0 /100 WBCs. The reference range was not used to interpret this result as normal/abnormal. NRBC x10^3 (test code = 7525375355) See_Comment [Automated messa ge] The system which generated this result transmitted reference range: 10*3/?L. The reference range was not used to interpret this result as normal/abnormal. GRAN MAT (NEUT) % (test code = 770-8) 69.1 % IMM GRAN % (test code = 7358142861) 0.20 % LYMPH % (test code = 736-9) 17.3 % MONO % (test code = 5905-5) 9.7 % EOS % (test code = 713-8) 3.2 % BASO % (test code = 706-2) 0.5 % GRAN MAT x10^3(ANC) (test code = 6747981964) 4.13 10*3/uL 1.99-6.95 IMM GRAN x10^3 (test code = 4786870687) 0.00-0.06 LYMPH x10^3 (test code = 731-0) 1.03 10*3/uL 1.09-3.23 L MONO x10^3 (test code = 742-7) 0.58 10*3/uL 0.36-1.02 EOS x10^3 (test code = 711-2) 0.19 10*3/uL 0.06-0.53 BASO x10^3 (test code = 704-7) 0.03 10*3/uL 0.01-0.09 Lab Interpretation (test code = 02555-9) [facility]22-[facility]-29 13:19:23* Test Item Value Reference Range Interpretation Comme nts POCT GLU (test code = 2305657356) 99 mg/dL 70-110 Lab Interpretation (test cod e = 27348-0) Normal [facility] METABOLIC PANEL (NA, K, CL, CO2, GLUCOSE, BUN, CREATININE, CA)2022-10-29 08:19:42* Test Item Value Reference Range Interpretation Comme [facility] NA (test code = 9784539312) 132 mmol/L 135-145 L K (test code = 8836760723) 4.8 mmol/L 3.5-5.0 CL (test code = 7072059686) 102 mmol/L 98-108 CO2 TOTAL (test code = 7207096000) 25 mmol/L 23-31 AGAP (test code = 5933751040) 5 2-16 BUN (test code = 2294247334) 18 mg/dL 7-23 GLUCOSE (test code = 3439082312) 109 mg/dL 70-110 CREATININE (test code = 7774552446) 0.60 mg/dL 0.60-1.25 CALCIUM (test code = 1488938995) 8.8 mg/dL 8.6-10.6 eGFR (test code = 3545594173) 130.6 mL/min/1.73m2 STEPHANIE (test code = STEPHANIE) [...] imaging tests). Lab Interpretation (test code = 42255-4) [facility]normal [facility] 08:19:42* Test Item Value Reference Range Interpretation Comme nts MAGNESIUM (test code = 8218644120) 1.9 mg/dL 1.7-2.4 Lab Interpretation (test cod e = 73912-8) Normal [facility] WITH [id number] 08:00:22* Test Item Value Reference Range Interpretation Comme nts WBC (test code = 6690-2) 8.45 See_Comment [Automated [employer]] The system which generated this result transmitted reference range: 4.20 - 10.70 10*3/?L. The reference range was not used to interpret this result as normal/abnormal. RBC (test code = 789-8) 3.98 See_Comment L [Automated [employer]] The system which generated this result transmitted [...] 33.8 g/dL 31.2-35.0 RDW-SD (test code = 33902-2) 44.5 fL 38.5-51.6 RDW-CV (test code = 788-0) 13.6 % 12.1-15.4 PLT (test code = 777-3) 195 See_Comment [Automated messa ge] The system which generated this result transmitted reference range: 150 - 328 10*3/?L. The reference range was not used to interpret this result as normal/abnormal. MPV (test code = 48094-0) 8.7 fL 9.8-13.0 L NRBC/100 WBC (test code = 8369747191) 0.0 See_Comment [Automated [employer]age] The system which generated this result transmitted reference range: 0.0 - 10.0 /100 WBCs. The reference range was not used to interpret this result as normal/abnormal. NRBC x10^3 (test code = 4700186516) See_Comment [Automated messa ge] The system which generated this result transmitted reference range: 10*3/?L. The reference range was not used to interpret this result as normal/abnormal. GRAN MAT (NEUT) % (test code = 770-8) 75.3 % IMM GRAN % (test code = 9284546503) 0.20 % LYMPH % (test code = 736-9) 15.1 % MONO % (test code = 5905-5) 8.5 % EOS % (test code = 713-8) 0.7 % BASO % (test code = 706-2) 0.2 % GRAN MAT x10^3(ANC) (test code = 5791738680) 6.35 10*3/uL 1.99-6.95 IMM GRAN x10^3 (test code = 0744091750) 0.00-0.06 LYMPH x10^3 (test code = 731-0) 1.28 10*3/uL 1.09-3.23 MONO x10^3 (test code = 742-7) 0.72 10*3/uL 0.36-1.02 EOS x10^3 (test code = 711-2) 0.06 10*3/uL 0.06-0.53 BASO x10^3 (test code = 704-7) 0.01-0.09 Lab Interpretation (test code = 09099-8) Abnormal [facility] GLUCOSE (AUTOMATED)2022-10-29 02:05:51* Test Item Value Reference Range Interpretation Comme [facility] POCT GLU (test code = 6021545485) 162 mg/dL 70-110 H Lab Interpretation (test cod e = 73860-9) Abnormal [facility] GLUCOSE (AUTOMATED)2022-10-28 21:27:56* Test Item Value Reference Range Interpretation Comme [facility] POCT GLU (test code = 7604272510) 104 mg/dL 70-110 Lab Interpretation (test cod e = 18365-2) Normal [facility]2023[facility] 20:41:29* Test Item Value Reference Range Interpretation Comme [facility] Procalcitonin (test code = 4706779173) 0.12 ng/mL <=0.07 H STEPHANIE (test code [...] lung abscess/empyema. For further information please refer to:[email or web address] Lab Interpretation (test code = 03132-9) [facility] (NA, K, CL, CO2, GLUCOSE, BUN, CREATININE, CA)2022-10-28 17:04:09* Test Item Value Reference Range Interpretation Comme nts NA (test code = 9936779110) 133 mmol/L 135-145 L K (test code = 6641325755) 3.9 mmol/L 3.5-5.0 CL (test code = 9051517393) 103 mmol/L 98-108 CO2 TOTAL (test code = 7172034407) 26 mmol/L 23-31 AGAP (test code = 1806236364) 4 2-16 BUN (test code = 8847154706) 18 mg/dL 7-23 GLUCOSE (test code = 6379581370) 118 mg/dL 70-110 H CREATININE (test code = 1229955953) 0.59 mg/dL 0.60-1.25 L CALCIUM (test code = 0633819124) 8.5 mg/dL 8.6-10.6 L eGFR (test code = 8481020190) 133.2 mL/min/1.73m2 STEPHANIE (test code = STEPHANIE) [...] imaging tests). Lab Interpretation (test code = 37153-9) [facility]normal [facility]2022-10-28 16:57:29* Test Item Value Reference Range Interpretation Comme [facility] POCT GLU (test code = 0803650497) 98 mg/dL 70-110 Lab Interpretation (test cod e = 65755-7) Normal [facility] WITH [id number] 16:01:20* Test Item Value Reference Range Interpretation [...] 33.9 g/dL 31.2-35.0 RDW-SD (test code = 80149-9) 44.5 fL 38.5-51.6 RDW-CV (test code = 788-0) 13.6 % 12.1-15.4 PLT (test code = 777-3) 166 See_Comment [Automated messa ge] The system which generated this result transmitted reference range: 150 - 328 10*3/?L. The reference range was not used to interpret this result as normal/abnormal. MPV (test code = 50778-3) 8.6 fL 9.8-13.0 L NRBC/100 WBC (test code = 5652714108) 0.0 See_Comment [Automated [employer]age] The system which generated this result transmitted reference range: 0.0 - 10.0 /100 WBCs. The reference range was not used to interpret this result as normal/abnormal. NRBC x10^3 (test code = 1682738995) See_Comment [Automated messa ge] The system which generated this result transmitted reference range: 10*3/?L. The reference range was not used to interpret this result as normal/abnormal. GRAN MAT (NEUT) % (test code = 770-8) 77.6 % IMM GRAN % (test code = 2123253416) 0.20 % LYMPH % (test code = 736-9) 11.1 % MONO % (test code = 5905-5) 10.8 % EOS % (test code = 713-8) 0.2 % BASO % (test code = 706-2) 0.1 % GRAN MAT x10^3(ANC) (test code = 7469168118) 6.30 10*3/uL 1.99-6.95 IMM GRAN x10^3 (test code = 8685958132) 0.00-0.06 LYMPH x10^3 (test code = 731-0) 0.90 10*3/uL 1.09-3.23 L MONO x10^3 (test code = 742-7) 0.88 10*3/uL 0.36-1.02 EOS x10^3 (test code = 711-2) 0.06-0.53 L BASO x10^3 (test code = 704-7) 0.01-0.09 Lab Interpretation (test code = 91489-3) Abnormal [facility] HospitalLancic Acid Whole [id number] 15:43:36* Test Item Value Reference Range Interpretation Comme [facility] LACTIC ACID (test code = 2372000318) 1.48 mmol/L 0.50-2.20 Lab Interpretation (test cod e = 50468-7) Normal [facility]2022-10-28 13:55:42* Test Item Value Reference Range Interpretation Comme [facility] POCT GLU (test code = 9569283551) 108 mg/dL 70-110 Lab Interpretation (test cod e = 31214-5) Normal [facility] Hospital[facility]cosylated Hemoglobin (A1C)2022-10-28 13:35:21* Test Item Value Reference Range Interpretation Comme [facility] HGB A1C (test code = 4548-4) 5.4 % 4.0-5.7 STEPHANIE (test code = STEPHANIE) Reference RangesNormal: <5.7%Prediabetes: 5.7 - 6.4%Diabetes: > 6.5% Lab Interpretation (test code = 36500-6) Normal [facility] 12:48:08* Test Item Value Reference Range Interpretation Comme nts MAGNESIUM (test code = 4180318763) 2.0 mg/dL 1.7-2.4 Lab Interpretation (test cod e = 65678-2) Normal [facility] HospitalTR[facility] [id number] 04:32:06* Test Item Value Reference Range Interpretation Comme nts TROPONIN I (test code = 7533378482) 0.029 ng/mL <=0.034 STEPHANIE (test code = [...] of biotin. Lab Interpretation (test code = 06300-6) Normal [facility]OLIC PAN[facility] (09659)2022-10-28 04:21:43* Test Item Value Reference Range Interpretation Comme nts NA (test code = 0614622761) 133 mmol/L 135-145 L K (test code = 1028873054) 4.2 mmol/L 3.5-5.0 CL (test code = 2151017622) 100 mmol/L 98-108 CO2 TOTAL (test code = 3713133179) 23 mmol/L 23-31 AGAP (test code = 3277783898) 10 2-16 BUN (test code = 5472871743) 24 mg/dL 7-23 H GLUCOSE (test code = 5345159940) 217 mg/dL 70-110 H CREATININE (test code = 8719902177) 0.79 mg/dL 0.60-1.25 TOTAL BILI (test code = 6232637160) 0.5 mg/dL 0.1-1.1 CALCIUM (test code = 2132830145) 8.6 mg/dL 8.6-10.6 T PROTEIN (test code = 5893168408) 6.6 g/dL 6.3-8.2 ALBUMIN (test code = 0987121214) 3.6 g/dL 3.5-5.0 ALK PHOS (test code = 3249098936) 76 U/L 34-122 ALTv (test code = 1742-6) 20 U/L 5-50 AST(SGOT) (test code = 5098678044) 31 U/L 13-40 eGFR (test code = 7368976107) 95.1 mL/min/1.73m2 STEPHANIE (test code = STEPHANIE) [...] imaging tests). Lab Interpretation (test code = 08090-8) Abnormal [facility] WITH [id number] 03:55:19* Test Item Value Reference Range Interpretation [...] 33.9 g/dL 31.2-35.0 RDW-SD (test code = 11136-4) 44.8 fL 38.5-51.6 RDW-CV (test code = 788-0) 13.6 % 12.1-15.4 PLT (test code = 777-3) 189 See_Comment [Automated message] The system which generated this result transmitted reference range: 150 - 328 10*3/?L. The reference range was not used to interpret this result as normal/abnormal. MPV (test code = 52845-7) 8.7 fL 9.8-13.0 L NRBC/100 WBC (test code = 0875434049) 0.0 See_Comment [Automated message] The system which generated this result transmitted reference range: 0.0 - 10.0 /100 WBCs. The reference range was not used to interpret this result as normal/abnormal. NRBC x10^3 (test code = 3035785622) See_Comment [Automated message] The system which generated this result transmitted reference range: 10*3/?L. The reference range was not used to interpret this result as normal/abnormal. GRAN MAT (NEUT) % (test code = 770-8) 83.5 % IMM GRAN % (test code = 4895490875) 0.60 % LYMPH % (test code = 736-9) 6.0 % MONO % (test code = 5905-5) 9.6 % EOS % (test code = 713-8) 0.1 % BASO % (test code = 706-2) 0.2 % GRAN MAT x10^3(ANC) (test code = 5063672938) 10.59 10*3/uL 1.99-6.95 H IMM GRAN x10^3 (test code = 7603025056) 0.08 10*3/uL 0.00-0.06 H LYMPH x10^3 (test code = 731-0) 0.76 10*3/uL 1.09-3.23 L MONO x10^3 (test code = 742-7) 1.21 10*3/uL 0.36-1.02 H EOS x10^3 (test code = 711-2) 0.06-0.53 L BASO x10^3 (test code = 704-7) 0.01-0.09 Lab Interpretation (test code = 81207-4) Abnormal [facility] CULTURE [id number] 03:02:22* Test Item Value Reference Range Interpretation Comme nts Blood Culture-Aerobic (test code = 03240-3) No organisms isolated No growth Previous preliminary [...] 2201 CDT Blood Culture-Anaerobic (test code = 14737-7) No organisms isolated No growth Previous preliminary [...] 2201 CDT Lab Interpretation (test code = 02936-5) [facility] [id number] 03:02:22* Test Item Value Reference Range Interpretation Comme nts Blood Culture-Aerobic (test code = 08669-3) No organisms isolated No growth Previous preliminary [...] 2201 CDT Blood Culture-Anaerobic (test code = 87646-8) No organisms isolated No growth Previous preliminary [...] 2201 CDT Lab Interpretation (test code = 20181-7) Normal [facility]OL[facility] (45857)2022-07-21 03:19:43* Test Item Value Reference Range Interpretation Comme nts NA (test code = 6879672838) 137 mmol/L 135-145 K (test code = 8806746347) 4.6 mmol/L 3.5-5.0 CL (test code = 1594836339) 102 mmol/L 98-108 CO2 TOTAL (test code = 2175634460) 25 mmol/L 23-31 AGAP (test code = 4570623260) 10 2-16 BUN (test code = 0845522348) 16 mg/dL 7-23 GLUCOSE (test code = 2119165549) 147 mg/dL 70-110 H CREATININE (test code = 5098197298) 1.06 mg/dL 0.60-1.25 TOTAL BILI (test code = 2721535609) 0.4 mg/dL 0.1-1.1 CALCIUM (test code = 4292865015) 9.3 mg/dL 8.6-10.6 T PROTEIN (test code = 1841662857) 6.3 g/dL 6.3-8.2 ALBUMIN (test code = 5712026562) 3.7 g/dL 3.5-5.0 ALK PHOS (test code = 1699972213) 85 U/L 34-122 ALTv (test code = 1742-6) 19 U/L 5-50 AST(SGOT) (test code = 6216086219) 23 U/L 13-40 eGFR (test code = 8420944780) 67.7 mL/min/1.73m2 STEPHANIE (test code = STEPHANIE) [...] imaging tests). Lab Interpretation (test code = 81787-2) [facility] [id number] 03:10:02* Test Item Value Reference Range Interpretation Comme nts ESR (test code = 95005-8) 20 See_Comment H [Automated messa ge] The system which generated this result transmitted reference range: 0 - 10 mm/HR. The reference range was not used to interpret this result as normal/abnormal. Lab Interpretation (test code = 63753-3) Abnormal [facility] WITH [id number] 02:50:23* Test Item Value Reference Range Interpretation [...] 32.6 g/dL 31.2-35.0 RDW-SD (test code = 33592-4) 46.5 fL 38.5-51.6 RDW-CV (test code = 788-0) 13.5 % 12.1-15.4 PLT (test code = 777-3) 239 See_Comment [Automated messa ge] The system which generated this result transmitted reference range: 150 - 328 10*3/?L. The reference range was not used to interpret this result as normal/abnormal. MPV (test code = 88577-4) 8.6 fL 9.8-13.0 L NRBC/100 WBC (test code = 5425021813) 0.0 See_Comment [Automated misterbnb ssage] The system which generated this result transmitted reference range: 0.0 - 10.0 /100 WBCs. The reference range was not used to interpret this result as normal/abnormal. NRBC x10^3 (test code = 1591023591) See_Comment [Automated messa ge] The system which generated this result transmitted reference range: 10*3/?L. The reference range was not used to interpret this result as normal/abnormal. GRAN MAT (NEUT) % (test code = 770-8) 79.8 % IMM GRAN % (test code = 5615205757) 0.50 % LYMPH % (test code = 736-9) 11.8 % MONO % (test code = 5905-5) 6.8 % EOS % (test code = 713-8) 0.7 % BASO % (test code = 706-2) 0.4 % GRAN MAT x10^3(ANC) (test code = 8836880703) 6.41 10*3/uL 1.99-6.95 IMM GRAN x10^3 (test code = 8187352995) 0.04 10*3/uL 0.00-0.06 LYMPH x10^3 (test code = 731-0) 0.95 10*3/uL 1.09-3.23 L MONO x10^3 (test code = 742-7) 0.55 10*3/uL 0.36-1.02 EOS x10^3 (test code = 711-2) 0.06 10*3/uL 0.06-0.53 BASO x10^3 (test code = 704-7) 0.03 10*3/uL 0.01-0.09 Lab Interpretation (test code = 37355-0) Abnormal [facility] [id number] 21:13:33* Test Item Value Reference Range Interpretation Comme nts ESR (test code = 73272-4) 11 See_Comment H [Automated Luma[employer] ge] The system which generated this result transmitted reference range: 0 - 10 mm/HR. The reference range was not used to interpret this result as normal/abnormal. Lab Interpretation (test code = 02585-3) Abnormal [facility] (93104)2022-07-18 20:55:16* Test Item Value Reference Range Interpretation Comme nts NA (test code = 1711951796) 135 mmol/L 135-145 K (test code = 0302958893) 4.7 mmol/L 3.5-5.0 CL (test code = 1420155500) 103 mmol/L 98-108 CO2 TOTAL (test code = 7825845173) 23 mmol/L 23-31 AGAP (test code = 8381163034) 9 2-16 BUN (test code = 3612799291) 15 mg/dL 7-23 GLUCOSE (test code = 2923615141) 89 mg/dL 70-110 CREATININE (test code = 8382980217) 0.71 mg/dL 0.60-1.25 TOTAL BILI (test code = 0161890418) 0.5 mg/dL 0.1-1.1 CALCIUM (test code = 7240935178) 8.9 mg/dL 8.6-10.6 T PROTEIN (test code = 6803987815) 6.1 g/dL 6.3-8.2 L ALBUMIN (test code = 6779863117) 3.5 g/dL 3.5-5.0 ALK PHOS (test code = 5346295852) 82 U/L 34-122 ALTv (test code = 1742-6) 18 U/L 5-50 AST(SGOT) (test code = 4146873806) 24 U/L 13-40 eGFR (test code = 3087269055) 107.6 mL/min/1.73m2 STEPHANIE (test code = STEPHANIE) [...] imaging tests). Lab Interpretation (test code = 75701-8) Abnormal [facility] WITH [id number] 20:37:13* Test Item Value Reference Range Interpretation Comme nts WBC (test code = 6690-2) 6.41 See_Comment [Automated [employer]] The system which generated this result transmitted reference range: 4.20 - 10.70 10*3/?L. The reference range was not used to interpret this result as normal/abnormal. RBC (test code = 789-8) 4.17 See_Comment L [Automated [employer]] The system which generated this result transmitted [...] 32.9 g/dL 31.2-35.0 RDW-SD (test code = 59686-2) 45.5 fL 38.5-51.6 RDW-CV (test code = 788-0) 13.4 % 12.1-15.4 PLT (test code = 777-3) 246 See_Comment [Automated [employer]] The system which generated this result transmitted reference range: 150 - 328 10*3/?L. The reference range was not used to interpret this result as normal/abnormal. MPV (test code = 56637-5) 8.7 fL 9.8-13.0 L IPF % (test code = 2599195553) 0.8 % 1.2-10.7 L Platelet count measured by fluorescence method. NRBC/100 WBC (test code = 1983919795) 0.0 See_Comment [Automated me ssage] The system which generated this result transmitted reference range: 0.0 - 10.0 /100 WBCs. The reference range was not used to interpret this result as normal/abnormal. NRBC x10^3 (test code = 9134812587) See_Comment [Automated messa ge] The system which generated this result transmitted reference range: 10*3/?L. The reference range was not used to interpret this result as normal/abnormal. GRAN MAT (NEUT) % (test code = 770-8) 70.9 % IMM GRAN % (test code = 6767861361) 0.30 % LYMPH % (test code = 736-9) 18.3 % MONO % (test code = 5905-5) 8.1 % EOS % (test code = 713-8) 1.9 % BASO % (test code = 706-2) 0.5 % GRAN MAT x10^3(ANC) (test code = 3114014376) 4.55 10*3/uL 1.99-6.95 IMM GRAN x10^3 (test code = 3130796531) 0.00-0.06 LYMPH x10^3 (test code = 731-0) 1.17 10*3/uL 1.09-3.23 MONO x10^3 (test code = 742-7) 0.52 10*3/uL 0.36-1.02 EOS x10^3 (test code = 711-2) 0.12 10*3/uL 0.06-0.53 BASO x10^3 (test code = 704-7) 0.03 10*3/uL 0.01-0.09 Lab Interpretation (test code = 45187-4) Abnormal [facility] [id number] 17:59:56* Test Item Value Reference Range Interpretation Comme nts TROPONIN I (test code = 1939050199) 0.008 ng/mL <=0.034 STEPHANIE (test code = [...] of biotin. Lab Interpretation (test code = 76297-9) Normal [facility]2023-[facility] 17:48:33* Test Item Value Reference Range Interpretation Comme nts MAGNESIUM (test code = 3904724031) 1.9 mg/dL 1.7-2.4 Lab Interpretation (test cod e = 07879-1) Normal [facility] (76642)2022-06-10 17:48:14* Test Item Value Reference Range Interpretation Comme nts NA (test code = 9253389416) 135 mmol/L 135-145 K (test code = 7571921326) 4.2 mmol/L 3.5-5.0 CL (test code = 5216384616) 104 mmol/L 98-108 CO2 TOTAL (test code = 1811042674) 24 mmol/L 23-31 AGAP (test code = 5456931900) 7 2-16 BUN (test code = 7007809283) 13 mg/dL 7-23 GLUCOSE (test code = 4175132773) 129 mg/dL 70-110 H CREATININE (test code = 9015177482) 0.67 mg/dL 0.60-1.25 TOTAL BILI (test code = 1295469617) 0.6 mg/dL 0.1-1.1 CALCIUM (test code = 8983752820) 8.5 mg/dL 8.6-10.6 L T PROTEIN (test code = 8005775037) 6.0 g/dL 6.3-8.2 L ALBUMIN (test code = 6489769974) 3.2 g/dL 3.5-5.0 L ALK PHOS (test code = 1243265376) 82 U/L 34-122 ALTv (test code = 1742-6) 28 U/L 5-50 AST(SGOT) (test code = 0136517737) 71 U/L 13-40 H eGFR (test code = 6038652582) 115.0 mL/min/1.73m2 STEPHANIE (test code = STEPHANIE) [...] imaging tests). Lab Interpretation (test code = 92412-2) Abnormal [facility] 17:47:53* Test Item Value Reference Range Interpretation Comme nts LIPASE (test code = 9129951404) 124 U/L 0-220 Lab Interpretation (test cod e = 01275-9) Normal [facility] WITH [id number] 17:34:30* Test Item Value Reference Range Interpretation Comme nts WBC (test code = 6690-2) 8.77 See_Comment [Automated [employer]] The system which generated this result transmitted [...] 34.1 g/dL 31.2-35.0 RDW-SD (test code = 51332-8) 42.5 fL 38.5-51.6 RDW-CV (test code = 788-0) 12.8 % 12.1-15.4 PLT (test code = 777-3) 297 See_Comment [Automated [employer] ge] The system which generated this result transmitted reference range: 150 - 328 10*3/?L. The reference range was not used to interpret this result as normal/abnormal. MPV (test code = 59191-1) 8.1 fL 9.8-13.0 L NRBC/100 WBC (test code = 8803608396) 0.0 See_Comment [Automated misterbnb ssage] The system which generated this result transmitted reference range: 0.0 - 10.0 /100 WBCs. The reference range was not used to interpret this result as normal/abnormal. NRBC x10^3 (test code = 2200449331) See_Comment [Automated [employer] ge] The system which generated this result transmitted reference range: 10*3/?L. The reference range was not used to interpret this result as normal/abnormal. GRAN MAT (NEUT) % (test code = 770-8) 81.2 % IMM GRAN % (test code = 2806863064) 0.20 % LYMPH % (test code = 736-9) 9.5 % MONO % (test code = 5905-5) 7.8 % EOS % (test code = 713-8) 1.0 % BASO % (test code = 706-2) 0.3 % GRAN MAT x10^3(ANC) (test code = 3793264786) 7.12 10*3/uL 1.99-6.95 H IMM GRAN x10^3 (test code = 7179042436) 0.00-0.06 LYMPH x10^3 (test code = 731-0) 0.83 10*3/uL 1.09-3.23 L MONO x10^3 (test code = 742-7) 0.68 10*3/uL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
[2024-08-13] MEDS ORDERED: NA CHLORIDE 0.9% 250 ML ONE (14:18)
[2024-08-13] MEDS ORDERED: PANTOPRAZOLE 40 MG INJ ONE (14:18)
[2024-08-13 14:26] LABS: PT Prothrombin Time 12.8 SECONDS (10-13.0); PTT, Activated Partial Thromb 32.8 SECONDS (27.2-37.4); Protime INR 1.13
[2024-08-13 14:29] LABS: Absolute Eosinophils 0.1 K/uL (0-0.5); Absolute Lymphocytes (CBC) 1.4 K/uL (0.7-4.9); Absolute Monocytes 0.6 K/uL (0.1-1.3); Absolute Neutrophil 4.4 K/uL (1.8-8.0); Basophils % 0.4 % (0-1.3); Eosinophils % 1.4 % (0-4.4); Hematocrit 27.3 % (39.6-49.0); Hemoglobin 9.2 g/dL (13.6-17.9); Lymphocytes % 21.5 % (15.3-44.8); MCH 27.5 pg (27.0-35.0); MCHC 33.6 g/dL (32.0-36.0); MCV 81.8 fL (80-100); MPV 6.2 fL (7.6-11.3); Monocytes % 9.1 % (3.3-12.3); Neutrophils % 67.6 % (41.7-73.7); Nucleated Red Blood Cells % 0.1 % (0-0); Platelets 506 thou/uL (152-406); RBC Red Blood Cell Count 3.34 M/uL (4.33-5.43); Red Cell Distribution Width 16.9 % (12.1-15.2)
[2024-08-13 14:36] LABS: Albumin 2.8 g/dL (3.4-5.0); Albumin/Globulin Ratio 0.7 (1.1-1.8); Anion Gap 9.1 mEq/L (5.0-15.0); Bilirubin Total 0.3 mg/dL (0.2-1.0); Globulin 4.3 g/dL (2.3-3.5); Potassium 4.1 mEq/L (3.5-5.1); Protein, Total 7.1 g/dL (6.4-8.2); Troponin High Sensitivity 8.5 pg/mL (<58.9)
--- NOTE | 2024-08-13 15:22 | EDPHYS ---
Physician Documentation [facility] Name: Chauncey Dunn Age: 79 yrs Sex: Male : 1945 Arrival Date: 08/13/2024 Time: 13:12 Bed 14 Private MD: ED Physician Jose Elias Salazar HPI: 08/13 14:24 This 79 yrs old Male presents to ER via EMS with complaints of Black/Tarry Stools. rn 14:24 Patient presents with 2 days of dark black tarry stool. On Eliquis, Eliquis was held rn last night by . Patient with history of stroke and Alzheimer's, dementia, difficult to get any information from him, he just moans and yells when touched. Does not follow commands or answer questions.. Historical: - Allergies: 13:41 Bactrim; me1 - PMHx: 13:41 Alzheimer's disease; Cerebrovascular accident; Dementia; Glaucoma; Hypertensive me1 disorder; - PSHx: 13:41 back; cataract; me1 - Immunization history:: Adult Immunizations up to date. - Infectious Disease History:: Denies. - Family history:: not pertinent. - Social history:: Smoking status: unknown. - Hospitalizations: : No recent hospitalization is reported. ROS: 14:24 Unable to obtain ROS due to baseline dementia, rn Exam: 14:24 Constitutional: This is a well developed, well nourished patient who is awake, alert, rn and in no acute distress. Cardiovascular: Regular rate and rhythm. No pulse deficits. Respiratory: No increased work of breathing, no retractions or nasal flaring. Abdomen/GI: Soft, nontender MS/ Extremity: Pulses equal, no cyanosis. Neurovascular intact. Full, normal range of motion. Equal circumference. Neuro: Awake does not follow commands, bilateral upper extremity contractures 15:23 ECG was reviewed by the Attending Physician. rn Vital Signs: 13:37 BP 116 / 71; Pulse 78; Resp 17; Temp 98.4; Pulse Ox 99% ; Weight 83.91 kg; Pain 0/10; me1 14:00 BP 107 / 75; Pulse 77; Resp 16; Pulse Ox 100% ; me1 15:00 BP 108 / 77; Pulse 76; Resp 16; Pulse Ox 100% ; me1 16:00 BP 116 / 66; Pulse 74; Resp 17; Pulse Ox 99% ; wv1 17:00 BP 104 / 59; Pulse 73; Resp 17; Temp 98.1; Pulse Ox 99% ; me1 17:30 BP 105 / 64; Pulse 72; Resp 17; Temp 98.1; Pulse Ox 99% on R/A; wv1 13:37 Pain Scale: Adult [facility] MDM: 13:33 Medical Screening Exam initiated rn 15:20 Differential diagnosis: gastritis, diverticulitis, Upper GI bleed. Data reviewed: vital rn signs, nurses notes, lab test result(s), and as a result, I will admit patient. Consideration of Admission/Observation Patient was admitted/placed on observation. Escalation of care including admission/observation considered. Counseling: I had a detailed discussion with the patient and/or guardian regarding the historical points, exam findings, and any diagnostic results supporting the discharge/admit diagnosis, lab results, the need to transfer to another facility. 08/13 13:38 Order name: CBC with Diff; Complete Time: 14:44 rn 08/13 13:38 Order name: CMP; Complete Time: 14:44 rn 08/13 13:38 Order name: Lipase; Complete Time: 14:44 rn 08/13 13:38 Order name: Protime (+inr); Complete Time: 14:44 rn 08/13 13:38 Order name: Ptt, Activated; Complete Time: 14:44 rn 08/13 13:38 Order name: Type And Screen; Complete Time: 16:12 rn 08/13 13:38 Order name: Lactate w/ 2H reflex if indic.; Complete Time: 14:44 rn 08/13 13:38 Order name: Troponin High Sensitivity; Complete Time: 14:44 rn 08/13 13:38 Order name: CT Abd/Pelvis - IV Contrast Only; Complete Time: 16:12 rn 08/13 13:38 Order name: IV Saline Lock; Complete Time: 14:21 rn 08/13 13:38 Order name: Labs collected and sent; Complete Time: 14:21 rn 08/13 13:38 Order name: EKG - Nurse/Tech; Complete Time: 13:59 rn 08/13 13:38 Order name: Cardiac monitoring; Complete Time: 14:25 rn EC:23 Rate is 75 beats/min. Rhythm is regular. QRS [place] is Normal. [place] interval is normal. QRS rn interval is prolonged at 124 msec. QT interval is normal. No Q waves. T waves are Normal. No ST changes noted. Clinical impression: NSR w/ Non-specific ST/T Changes. Interpreted by me. Reviewed by me. 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 EDMS EDMS 13:39 13:39 COMPREHENSIVE METABOLIC PANEL+C.LAB.BRZ ordered. EDMS EDMS 13:39 13:39 LIPASE+C.LAB.BRZ ordered. EDMS EDMS 13:39 13:39 PROTIME (+INR)+COAG.LAB.BRZ ordered. EDMS EDMS 13:39 13:39 PTT, ACTIVATED+COAG.LAB.BRZ ordered. EDMS EDMS 13:39 13:39 TYPE AND SCREEN+BB.LAB.BRZ ordered. EDMS EDMS 13:39 13:39 LACTATE+C.LAB.BRZ ordered. EDMS EDMS 13:39 13:39 Troponin High Sensitivity+C.LAB.BRZ ordered. EDMS EDMS 13:39 13:39 Abdomen Pelvis W Con+CT.RAD.BRZ ordered. EDMS EDMS 15: 15: Dr. niles cage 17: 15:21 [facility] niles eden 17: 15: Dr. niles eden 17: 17:05 Dr.Michael Mcbride eb wv1
--- NOTE | 2024-08-13 15:22 | ER ---
Nurse's Notes [facility] Name: Chauncey Dunn Age: 79 yrs Sex: Male : 1945 Arrival Date: 08/13/2024 Time: 13:12 Bed 14 Private MD: Diagnosis: GI Bleed/ Gastrointestinal hemorrhage, unspecified;Anemia, unspecified Presentation: 08/13 13:37 Chief complaint: EMS states: toned out for black tarry stools x 2 days. hx of GI bleed. me1 held eliquis last night. Coronavirus screen: At this time, the client does not indicate any symptoms associated with coronavirus-19. Ebola Screen: No symptoms or risks identified at this time. 13:37 Method Of Arrival: EMS [facility] 13:37 Initial Sepsis Screen: Does the patient meet any 2 criteria? No. Patient's initial nv1 sepsis screen is negative. Does the patient have a suspected source of infection? No. Patient's initial sepsis screen is negative. Risk Assessment: Do you want to hurt yourself or someone else? Patient reports no desire to harm self or others. Onset of symptoms was August 11, 2024. 13:37 Acuity: ANNEMARIE 3 me1 Triage Assessment: 13:37 General: Appears in no apparent distress. well groomed, well developed, well nourished, nv1 Behavior is calm, cooperative, appropriate for age, Reports black, tarry stools x 2 days. Pain: Denies pain. Pain: Unable to use pain scale. Does not appear to understand pain scale. EENT: No signs and/or symptoms were reported regarding the EENT system. Neuro: Level of Consciousness is awake, alert, confused, Oriented to person. Cardiovascular: Patient's skin is warm and dry. Respiratory: Airway is patent Respiratory effort is even, unlabored, Respiratory pattern is regular, symmetrical. GI: Reports rectal bleeding, since 2 days ago. : No signs and/or symptoms were reported regarding the genitourinary system. Derm: Wound noted right foot and left foot. Musculoskeletal: No signs and/or symptoms reported regarding the musculoskeletal system. Historical: - Allergies: 13:41 Bactrim; me1 - PMHx: 13:41 Alzheimer's disease; Cerebrovascular accident; Dementia; Glaucoma; Hypertensive me1 disorder; - PSHx: 13:41 back; cataract; me1 - Immunization history:: Adult Immunizations up to date. - Infectious Disease History:: Denies. - Family history:: not pertinent. - Social history:: Smoking status: unknown. - Hospitalizations: : No recent hospitalization is reported. Screenin:41 [facility] ED Fall Risk Assessment (Adult) History of falling in the last 3 months, nv1 including since admission No falls in past 3 months (0 pts) Confusion or Disorientation Yes (5 pts) Intoxicated or Sedated No (0 pts) Impaired Gait Yes (1 pt) Mobility Assist Device Used Yes (1 pt) Altered Elimination Yes (1 pt) Score/Fall Risk Level 0 - 2 = Low Risk Maintained a safe environment, Provided non-skid footwear, Hourly rounding (assess needs \T\ fall precautionary measures) done. Abuse screen: Denies threats or abuse. Nutritional screening: No deficits noted. Tuberculosis screening: No symptoms or risk factors identified. Assessment: 13:41 General: See triage assessment. me1 17:41 Reassessment: Spoke with Mrs Dunn to let her know that the patient is leaving with [facility] to go to [facility] in [facility]. Vital Signs: 13:37 BP 116 / 71; Pulse 78; Resp 17; Temp 98.4; Pulse Ox 99% ; Weight 83.91 kg; Pain 0/10; me1 14:00 BP 107 / 75; Pulse 77; Resp 16; Pulse Ox 100% ; me1 15:00 BP 108 / 77; Pulse 76; Resp 16; Pulse Ox 100% ; me1 16:00 BP 116 / 66; Pulse 74; Resp 17; Pulse Ox 99% ; me1 17:00 BP 104 / 59; Pulse 73; Resp 17; Temp 98.1; Pulse Ox 99% ; me1 17:30 BP 105 / 64; Pulse 72; Resp 17; Temp 98.1; Pulse Ox 99% on R/A; me1 13:37 Pain Scale: Adult [facility] ED Course: 13:28 Patient arrived in ED. eb 13:32 Jose Elias Salazar MD is Attending Physician. rn 13:36 Alyce Cox, REJI is Primary Nurse. me1 13:37 Arm band placed on Patient placed in an exam room. me1 13:39 Triage completed. me1 13:41 Patient has correct armband on for positive identification. Bed in low position. Call me1 light in reach. Side rails up X2. Provided Education on: POC. . Client placed on continuous cardiac and pulse oximetry monitoring. NIBP monitoring applied. cardiac monitor technician on. Pulse ox on. NIBP on. 13:41 No provider procedures requiring assistance completed. me1 13:59 EKG done, by ED staff, reviewed by Jose Elias Salazar MD. em1 14:21 CBC with Diff Sent. ss 14:21 CMP Sent. ss 14:21 Lipase Sent. ss 14:21 Ptt, Activated Sent. ss 14:21 Protime (+inr) Sent. ss 14:21 Type And Screen Sent. ss 14:21 Lactate w/ 2H reflex if indic. Sent. ss 14:21 Troponin High Sensitivity Sent. ss 15:33 CT Abd/Pelvis - IV Contrast Only In Process Unspecified. EDMS 16:17 initiated at transfer with Hebert from the [facility] Transfer center. eb 16:[address] production general manager for [facility] with Dr. Salazar for patient eb transfer consultation. 16:38 administrative approval given by Hebert Childs/ patient has been accepted to [facility] room 522/ Dr. Rafael Mcbride has accepted the patient in transfer/ report to be called to [phone]. 17:10 Patient transferred, IV remains in place. me1 Administered Medications: 14:25 Drug: Pantoprazole IVP 40 mg IVP once Route: IVP; Site: left upper arm; me1 16:26 Follow up: Response: No adverse reaction me1 14:25 Drug: Pantoprazole IV 8 mg/hr IV at 25 ml/hr continuous; (Standard dilution is 80 mg in me1 250 mL NS) Route: IV; Rate: 25 ml/hr; Site: left upper arm; 16:26 Follow up: IV Status: Infusion continued upon transfer me1 Medication: 13:41 VIS not applicable for this client. me1 Outcome: 15:21 ER care complete, transfer ordered by rn 17:10 Transferred by ground EMS to [facility] Note: rn community. Report me1 called to [facility]. 5th floor 17:10 Condition: stable 17:10 Instructed on the need for transfer, 17:43 Patient left the ED. me1 Signatures: Dispatcher [employer] EDJose Elias Tripp MD MD rn Abdi Harvey 1 Brooke Enriquez, REJI RN Anabela Reyes Michelle, RN RN me1 Corrections: (The following items were deleted from the chart) 13:39 13:37 BP 116 / 71; Pulse 78bpm; Resp 17bpm; Pulse Ox 99%; Temp 98.4F; Pain 0/10, Adult; me1 me1
--- NOTE | 2024-08-13 16:10 | RAD REPORT ---
EXAMINATION: CT ABDOMEN AND PELVIS WITH CONTRAST CLINICAL INDICATION: Abdominal pain black tarry stool TECHNIQUE: CT abdomen and pelvis was performed, after the administration of 100 cc Isovue-300.. Sagit giovana and coronal reconstructions were obtained. One or more of the following dose reduction techniques were used: Automated exposure control, adjustment of the mA and kV according to patient si ze, and iterative reconstruction. Unless otherwise specified, incidental findings do not require dedicated imaging follow-up. [id number]. Oral contrast was not given which limits evaluation of bowel and appendix. COMPARISON: .June 2024 FINDINGS: Moderate hiatal hernia. The liver, spleen, pancreas, adrenals and kidneys unremarkable 6.8 cm diverticulum extends from the third portion of the duodenum. Gynecomastia is present. Small hiatal hernia. Umbilical hernia. The neck 2.7 cm. Hernia sac contains fat measuring 6 cm. No evidence of diverticulitis. Moderate to marked amount of stool throughout the colon.: IMPRESSION: Moderate to marked amount of stool throughout the colon.
[2024-08-13 17:52] VITALS: O2SAT 99
[2024-08-13 17:53] VITALS: TEMP 98.1
[2024-08-13 17:55] VITALS: BP 105/64
--- NOTE | 2024-08-15 12:02 | EKG ---
Test Date: 2024-08-13 Test Time: 13:56:41 State Archivist: VICENTA MEASUREMENT RESULTS: Intervals: Rate: 75 OH: 148 QRSD: 124 QT: 418 QTc: 466 White: P: 67 OH: 148 QRS: 2 T: 25 INTERPRETIVE STATEMENTS: Normal sinus rhythm Right bundle branch block Cannot rule out Inferior infarct, age undetermined Abnormal ECG Compared to ECG 07/29/2024 13:10:33 Myocardial infarct finding now present Sinus tachycardia no longer present Fusion complex(es) no longer present Electronically Signed On 08-15-24 12:02:09 CDT by Mk Loza
== END 2024-08-13 17:43 | disposition short-term general hospital (02) ==
LOC: ER 13:12
DX: D64.9 Anemia, unspecified (principal); G30.9 Alzheimer's disease, unspecified; F02.80 Dementia in other diseases classified elsewhere, unspecified severity, without behavioral disturbance, psychotic disturbance, mood disturbance, and anxiety; Z86.73 Personal history of transient ischemic attack (TIA), and cerebral infarction without residual deficits
CPT/HCPCS: 96365; 93005; 85025; 36415; 86900; 86850; 85610; 86901; 83605; 85730; 84484; 83690; 80053; 74177; 99285; 96366; Q9967; J2470; J7050

== ENCOUNTER 2024-08-19 15:42 | Emergency (ER) | payer OTHER, BC ==
--- NOTE | 2024-08-19 16:51 | RAD REPORT ---
EXAM: Chest Single View HISTORY: 79 years Male fever, cough COMPARISON: 07/29/2024 FINDINGS: LUNGS/PLEURA: The lungs are clear. No pleural effusions or pneumothorax. No pulmonary edema. CARDIAC/MEDIASTINUM: The cardiac silhouette is within normal limits. UPPER ABDOMEN: No significant abnormality. BONES: No acute abnormality. LINES/TUBES/OTHER: N/A IMPRESSION: No evidence of acute cardiopulmonary disease. No significant change from prior.
[2024-08-19 17:16] LABS: Albumin 2.6 g/dL (3.4-5.0); Albumin/Globulin Ratio 0.7 (1.1-1.8); Anion Gap 11.7 mEq/L (5.0-15.0); Bilirubin Total 0.2 mg/dL (0.2-1.0); Globulin 3.7 g/dL (2.3-3.5); Potassium 3.7 mEq/L (3.5-5.1); Protein, Total 6.3 g/dL (6.4-8.2); Troponin High Sensitivity 6.1 pg/mL (<58.9)
[2024-08-19 17:49] LABS: Hematocrit 28.2 % (39.6-49.0); Hemoglobin 9.3 g/dL (13.6-17.9); MCH 27.1 pg (27.0-35.0); MCHC 32.8 g/dL (32.0-36.0); MCV 82.5 fL (80-100); RBC Red Blood Cell Count 3.42 M/uL (4.33-5.43)
[2024-08-19 17:50] LABS: Basophils % 0.1 % (0-1.3); Eosinophils % 0.6 % (0-4.4); Lymphocytes % 6.1 % (15.3-44.8); MPV 6.4 fL (7.6-11.3); Monocytes % 6.5 % (3.3-12.3); Neutrophils % 86.7 % (41.7-73.7); Platelets 362 thou/uL (152-406); Red Cell Distribution Width 18.2 % (12.1-15.2)
[2024-08-19 17:51] LABS: Absolute Eosinophils 0.1 K/uL (0-0.5); Absolute Lymphocytes (CBC) 0.9 K/uL (0.7-4.9)
--- NOTE | 2024-08-19 18:30 | RAD REPORT ---
EXAMINATION: Abdomen Pelvis Wo Contrast CLINICAL INDICATION: Male, 79 years old.fever, Distention TECHNIQUE: CT abdomen and pelvis was performed, without IV contrast, as per department protocol. Axia l, sagittal and coronal reconstructions were obtained. One or more of the following dose reduction techniques were used: Automated exposure control, adjustment of the mA and/or kV according to the pat ient size, and/or iterative reconstruction. Unless otherwise specified, incidental findings do not require dedicated imaging follow-up. [id number]. IV CONTRAST: Not administered. COMPARISON: 08/13/2024 FINDINGS: The lack of intravenous contrast limits the sensitivity of this exam for evaluation of solid visceral organs, vascular structures, and retroperitoneum. LOWER CHEST: No acute process identified.No significant pericardial effusion. Small hiatal hernia wit h circumferential thickening of the esophagus which could reflect esophagitis. Aortic valve calcifications. UPPER GI: No significant abnormality. LIVER: Hepatic steatosis, but otherwise unremarkable. GALLBLADDER/BILE DUCTS: No biliary ductal dilatation.? PANCREAS: No mass, ductal dilation, or kiesha-pancreatic fluid. SPLEEN: Unremarkable. ADRENALS: No adrenal masses. KIDNEYS AND URETERS: No hydronephrosis.Limited evaluation for renal lesions in the absence of IV cont rast.No renal calculi.No ureteral calculi. ABDOMINAL AORTA AND OTHER VESSELS: Normal caliber aorta and IVC. PERITONEUM: No abnormal free fluid. No free air. LYMPH NODES: No pathologic lymphadenopathy. ABDOMINAL WALL: Fat-containing umbilical hernia. SMALL BOWEL/COLON: Short segment of the transverse colon with wall thickening and mild mesenteric kirstin ma. Mild diverticulosis without diverticulitis. Moderate to large formed stool burden. URINARY BLADDER: Underdistended but grossly unremarkable. REPRODUCTIVE ORGANS: No pathologic process. MUSCULOSKELETAL: Multilevel degenerative changes in the spine. No acute fracture. ADDITIONAL FINDINGS: None. IMPRESSION: Short segment of wall thickening at the proximal to mid transverse colon that is new from prior and c ould reflect a short segment colitis. Moderate to large colonic stool burden consistent with constipation
--- NOTE | 2024-08-19 19:09 | ER ---
Nurse's Notes [facility] Name: Chauncey Dunn Age: 79 yrs Sex: Male : 1945 Arrival Date: 08/19/2024 Time: 15:42 Bed 12 Private MD: Diagnosis: Constipation, unspecified;Abdominal pain, unspecified Presentation: 08/19 15:45 Chief complaint: EMS states: Recently inpatient for pneumonia, concerned about hb persistent cough and subjective fever this afternoon. AOx0 at baseline, FSBS 188. Coronavirus screen: At this time, the client does not indicate any symptoms associated with coronavirus-19. Ebola Screen: No symptoms or risks identified at this time. Initial Sepsis Screen: Does the patient meet any 2 criteria? No. Patient's initial sepsis screen is negative. Does the patient have a suspected source of infection? No. Patient's initial sepsis screen is negative. Risk Assessment: Do you want to hurt yourself or someone else? Patient reports no desire to harm self or others. Onset of symptoms was August 19, 2024. 15:45 Method Of Arrival: Ambulatory hb 15:45 Acuity: ANNEMARIE 3 hb Historical: - Allergies: 15:46 Bactrim; hb - PMHx: 15:46 Alzheimer's disease; Dementia; Cerebrovascular accident; Glaucoma; Hypertensive hb disorder; - PSHx: 15:46 back; cataract; hb - Immunization history:: Adult Immunizations up to date. - Infectious Disease History:: Denies. - Family history:: not pertinent. - Social history:: Smoking status: Patient denies any tobacco usage or history of. Screenin:45 Abuse screen: Denies injuries from another. Nutritional screening: No deficits noted. iw Tuberculosis screening: No symptoms or risk factors identified. 19:54 [facility] ED Fall Risk Assessment (Adult) History of falling in the last 3 months, cp4 including since admission No falls in past 3 months (0 pts) Confusion or Disorientation No (0 pts) Intoxicated or Sedated No (0 pts) Impaired Gait Yes (1 pt) Mobility Assist Device Used Yes (1 pt) Altered Elimination No (0 pt) Score/Fall Risk Level 0 - 2 = Low Risk Oriented to surroundings, Maintained a safe environment, Assessed \T\ reinforced patient's understanding of fall precautions, Hourly rounding (assess needs \T\ fall precautionary measures) done. Assessment: 16:44 General: Appears uncomfortable, Behavior is anxious. Pain: Unable to use pain scale. iw Patient appears to be grimacing, to be moaning. Neuro: Level of Consciousness is awake, Oriented to none. Cardiovascular: Patient's skin is warm and dry. Cardiovascular: Edema is 2+ to right midcalf and right ankle. Respiratory: Reports cough that is persistent Respiratory effort is even, unlabored, Respiratory pattern is regular, symmetrical, the patient has mild shortness of breath. GI: Abdomen is round umbilical hernia noted. Derm: Skin is pale. 17:10 Reassessment: pt moaning, screaming, unable to tell me what he needs or wants, VSS. iw 17:52 Reassessment: pt cleaned of BM, now at bedside, states he has had normal BM but iw was worried about his lungs and that his hernia was a bit more distended than it was yesterday. 18:14 Reassessment: pt back to ER bed [address], at bedside, pt continues to moan and iw scream out loud. 18:58 Reassessment: Dr. Moise at bedside speaking with family. iw 19:11 Reassessment: Dispo pending EMS transport home. cp4 Vital Signs: 15:45 BP 128 / 72; Pulse 96; Resp 18; Temp 97.9(A); Pulse Ox 100% on R/A; Pain 2/10; hb 17:11 BP 124 / 77; Pulse 89; Resp 19; Temp 98(O); Pulse Ox 100% on R/A; iw 19:54 BP 126 / 77; Pulse 84; Resp 18; Pulse Ox 100% ; cp4 15:45 Pain Scale: Non-Verbal hb ED Course: 15:45 Patient arrived in ED. hb 15:45 Wolf Okeefe MD is Attending Physician. rt 15:46 Triage completed. hb 15:46 Arm band placed on. hb 15:47 Elba Acosta, REJI is Primary Nurse. iw 16:03 Maintain EMS IV. Dressing intact. Good blood return noted. Gauge \T\ site: 22 right hand iw . Flushed with 10 mL NS. 16:10 Inserted saline lock: 20 gauge in left antecubital area, using aseptic technique. Blood iw collected. Flushed with 10 mL NS. 16:25 First set of blood cultures drawn by me, Second set of blood cultures drawn by me. iw 16:33 EKG done, by ED staff. tm3 16:45 Chest Single View XRAY In Process Unspecified. EDMS 18:02 Abdomen In Process Unspecified. EDMS 18:14 Patient has correct armband on for positive identification. Call light in reach. iw 19:54 Provided Education on: constipation. cp4 19:54 No provider procedures requiring assistance completed. intact, bleeding controlled, No cp4 redness/swelling at site. Pressure dressing applied. Administered Medications: No medications were administered Medication: 16:45 VIS not applicable for this client. iw Outcome: 19:09 Discharge ordered by . bo1 19:54 Discharged to home via ambulance, cp4 19:54 Condition: stable 19:54 Discharge instructions given to EMS, Instructed on discharge instructions, follow up and referral plans. Demonstrated understanding of instructions, follow-up care, 19:56 Patient left the ED. cp4 Signatures: Dispatcher [employer] EDIN Aris Perez tm3 Elba Acosta RN RN iw Sandra Colin RN RN Wolf Okeefe MD MD rt Thao Handy cp4 Jd Moise MD MD bo1 Corrections: (The following items were deleted from the chart) 15:48 15:45 Chief complaint: EMS states: Recently inpatient for pneumonia, concerned hb about persistent cough and subjective fever this afternoon hb 17:11 17:11 BP 124 / 77; Pulse 89bpm; Resp 19bpm; Pulse Ox 100% RA; iw iw
--- NOTE | 2024-08-19 19:09 | EDPHYS ---
Physician Documentation [facility] Name: Chauncey Dunn Age: 79 yrs Sex: Male : 1945 Arrival Date: 08/19/2024 Time: 15:42 Bed 12 Private MD: ED Physician Wolf Okeefe HPI: 08/19 16:46 This 79 yrs old Male presents to ER via Ambulatory with complaints of Cough, Fever. rt 16:46 Patient was recently evaluated in this hospital, was found to have a pneumonia, GI rt bleed, was transferred to [facility]. Patient recently left the hospital, the stated that his breathing is worsened, cough is worse and he has developed a fever. No further history could be obtained for the patient due to advanced dementia. Symptoms are moderate in severity, no other aggravating or alleviating factors.. Historical: - Allergies: 15:46 Bactrim; hb - PMHx: 15:46 Alzheimer's disease; Dementia; Cerebrovascular accident; Glaucoma; Hypertensive hb disorder; - PSHx: 15:46 back; cataract; hb - Immunization history:: Adult Immunizations up to date. - Infectious Disease History:: Denies. - Family history:: not pertinent. - Social history:: Smoking status: Patient denies any tobacco usage or history of. ROS: 16:46 Constitutional: Positive for rt 16:46 Unable to obtain ROS due to baseline dementia, Exam: 16:46 Chest/axilla: Normal chest wall appearance and motion. Nontender with no deformity. rt No lesions are appreciated. Cardiovascular: Regular rate and rhythm with a normal S1 and S2. No gallops, murmurs, or rubs. Normal PMI, no JVD. No pulse deficits. Skin: Warm, dry with normal turgor. Normal color with no rashes, no lesions, and no evidence of cellulitis. MS/ Extremity: Pulses equal, no cyanosis. Neurovascular intact. Full, normal range of motion. 16:46 Constitutional: The patient appears Confused, chronically ill-appearing 16:46 ECG was reviewed by the Attending Physician. 16:46 Respiratory: Coarse breath sounds diffusely, no respiratory distress, Vital Signs: 15:45 BP 128 / 72; Pulse 96; Resp 18; Temp 97.9(A); Pulse Ox 100% on R/A; Pain 2/10; hb 17:11 BP 124 / 77; Pulse 89; Resp 19; Temp 98(O); Pulse Ox 100% on R/A; iw 19:54 BP 126 / 77; Pulse 84; Resp 18; Pulse Ox 100% ; cp4 15:45 Pain Scale: Non-Verbal hb MDM: 15:45 Medical Screening Exam initiated rt 19:05 Differential Diagnosis: Other Constipation - abd pain. No fever at ER visit. No bo1 pneumonia. Data reviewed: radiologic studies, CT scan. Consideration of Admission/Observation Pt will be discharged to home via private EMS. Spouse has "lactulose" at home.. ED course: Pt w/o criteria for hospitalization acute admit/obs. Will manage the constipation via lactulose that the spouse states [facility].. 08/19 15:46 Order name: Blood Culture Adult (2) rt 08/19 15:46 Order name: CBC with Diff; Complete Time: 17:53 rt 08/19 15:46 Order name: CMP; Complete Time: 17:39 rt 08/19 15:46 Order name: Lactate w/ 2H reflex if indic.; Complete Time: 17:15 rt 08/19 15:46 Order name: Protime (+inr) rt 08/19 15:46 Order name: Troponin High Sensitivity; Complete Time: 17:39 rt 08/19 15:46 Order name: BNP; Complete Time: 17:39 rt 08/19 16:32 Order name: PTT, Activated Partial Thromb; Complete Time: 17:39 EDMS 08/19 15:46 Order name: Chest Single View XRAY; Complete Time: 16:54 rt 08/19 18:02 Order name: Abdomen ; Complete Time: 18:55 EDMS 08/19 15:46 Order name: Accucheck; Complete Time: 16:31 rt 08/19 15:46 Order name: Cardiac monitoring; Complete Time: 16:31 rt 08/19 15:46 Order name: EKG - Nurse/Tech; Complete Time: 16:31 rt 08/19 15:46 Order name: IV Saline Lock - Large Bore; Complete Time: 16:31 rt 08/19 15:46 Order name: Labs collected and sent; Complete Time: 16:03 rt 08/19 15:46 Order name: O2 Per Protocol; Complete Time: 16:31 rt 05/16 15:46 Order name: O2 Sat Monitoring; Complete Time: 16:31 rt 08/19 15:46 Order name: Vital Signs; Complete Time: 16:03 rt EC:46 Rate is 101 beats/min. Rhythm is regular, Sinus tachycardia with No ectopy, Right rt bundle branch block. QRS Conklin is Normal. MO interval is normal. QRS interval is normal. QT interval is normal. No Q waves. No ST changes noted. Administered Medications: No medications were administered Disposition Summary: 08/19/24 19:09 Discharge Ordered Notes: Location: Home bo1 Problem: chronic bo1 Symptoms: are unchanged bo1 Condition: Stable bo1 Diagnosis - Constipation, unspecified bo1 - Abdominal pain, unspecified bo1 Followup: bo1 - With: Private Physician - When: Upon discharge from the Emergency Department - Reason: Recheck today's complaints, Continuance of care Discharge Instructions: - Discharge Summary Sheet bo1 - Constipation, Adult bo1 - Constipation, Adult, [id number] bo1 Forms: - Medication Reconciliation Form bo1 - Antibiotic Education bo1 - Prescription Opioid Use bo1 - Patient Portal Instructions bo1 - Leadership Thank You Letter bo1 Signatures: Dispatcher [employer] EDMS Sandra Colin, REJI RN Wolf Scherer MD MD rt Thao Handy cp4 Jd Moise MD MD bo1 Corrections: (The following items were deleted from the chart) 15:46 15:46 Chest Single View+RAD.RAD.BRZ ordered. EDMS EDMS 15:46 15:46 Abdomen Pelvis W Con+CT.RAD.BRZ ordered. EDMS EDMS 15:46 15:46 Troponin High Sensitivity+C.LAB.BRZ ordered. EDMS EDMS 15:46 15:46 PROBNP+C.LAB.BRZ ordered. EDMS EDMS 16:32 15:46 PTT, ACTIVATED+COAG.LAB.BRZ ordered. EDMS EDMS
[2024-08-19 20:09] VITALS: O2SAT 100
[2024-08-19 20:12] VITALS: TEMP 98
[2024-08-19 20:13] VITALS: BP 126/77
[2024-08-19 20:38] LABS: PT Prothrombin Time 12.5; Protime INR 1.1
--- NOTE | 2024-08-22 16:50 | EKG ---
Test Date: 2024-08-19 Test Time: 16:11:36 Land [employer] Radio Technician: VJ MEASUREMENT RESULTS: Intervals: Rate: 101 [place]: 148 QRSD: 118 QT: 360 QTc: 466 [place]: P: 52 NJ: 148 QRS: 36 T: 47 INTERPRETIVE STATEMENTS: Sinus tachycardia Low voltage QRS Incomplete right bundle branch block Borderline ECG Compared to ECG 08/13/2024 13:56:41 Low QRS voltage now present Incomplete right bundle-branch block now present Sinus rhythm no longer present Right bundle-branch block no longer present Myocardial infarct finding no longer present Electronically Signed On 08-22-24 16:46:55 CDT by Mk Loza
== END 2024-08-19 19:56 | disposition home or self-care (01) ==
LOC: ER 15:42
DX: K59.00 Constipation, unspecified (principal); R05.9 Cough, unspecified; I10 Essential (primary) hypertension; G30.9 Alzheimer's disease, unspecified; F02.80 Dementia in other diseases classified elsewhere, unspecified severity, without behavioral disturbance, psychotic disturbance, mood disturbance, and anxiety
CPT/HCPCS: 36415; 71045; 74176; 80053; 83605; 83880; 84484; 85025; 85610; 85730; 87040; 93005; 99284